=== PATIENT | female | born 1945 | race Caucasian/White ===

== ENCOUNTER 2020-03-22 15:30 | Inpatient (IN) | payer MEDICARE, BC, SELFPAY ==
[2020-03-22 16:31] VITALS: BP 108/66; PULSE 83; RESP 18; TEMP 36.7; O2SAT 96; BMI 36.3
[2020-03-22 18:16] LABS: Bedside Glucose 68 mg/dL (70-110)
[2020-03-22] MEDS: Calcium Carbonate 500 MG Tablet PO (18:20)
[2020-03-22 18:25] LABS: Bedside Glucose 96 mg/dL (70-110)
--- NOTE | 2020-03-22 18:39 | NURSING ---
Patient aware of how to use call kalyan pelaez assist for all needs, son called and aware of team day and his mothers phone number to room. Patient confirmed all allergies to medications with this nurse. Alert and oriented with periods of confusion needing reorientation.
[2020-03-22 19:34] VITALS: BP 140/60; PULSE 80; RESP 16; TEMP 37.2; O2SAT 96
[2020-03-22] MEDS: Acetaminophen 500 MG Tablet 1000 MG PO (20:45)
[2020-03-22] MEDS: Atorvastatin Calcium 80 MG Tablet PO (20:45)
[2020-03-22] MEDS: ALPRAZolam 0.25 MG Tablet PO (20:45)
[2020-03-22] MEDS: MELATONIN 10 MG TABLET PO (20:45)
[2020-03-22 21:06] LABS: Bedside Glucose 152 mg/dL (70-110)
[2020-03-22] MEDS: Insulin Lispro 100 UNIT/ML INSULN.PEN SC (21:10)
[2020-03-23] MEDS: oxyCODONE 5 MG Tablet PO (01:19)
[2020-03-23] MEDS: Acetaminophen 500 MG Tablet 1000 MG PO ×3 (04:45→20:22)
[2020-03-23] MEDS: Enoxaparin 40 MG/0.4 ML Syringe SC (04:45)
[2020-03-23 05:25] VITALS: RESP 16; O2SAT 96
[2020-03-23 06:42] LABS: Hematocrit 31.4 % (37-47); Mean Corp Hgb Conc 31.8 g/dL (32-36); Mean Corpuscular Hgb 30.5 pg (27.0-32.0); Mean Corpuscular Volume 95.7 fL (81-99); Mean Platelet Vol. 12.3 fl (6.2-12.0); Platelet Count 176 K/mm3 (150-450); RBC Distribution Width CV 13.3 % (11.6-14.6); RBC Distribution Width SD 46.6 fl (35.1-43.9); Red Blood Count 3.28 M/mm3 (4.2-5.4); White Blood Count 7.9 K/mm3 (4.4-11.0)
--- NOTE | 2020-03-23 07:07 | NURSING ---
PT AWAKE, ALERT AND COOPERATIVE. SKIN WARM AND DRY WITH BLOOD SUGAR OF 65. DENIES HEADACHE. ORANGE JUICE/SUGAR PACKET PROVIDED AND PT IS DRINKING WELL.
[2020-03-23 07:11] LABS: Bedside Glucose 65 mg/dL (70-110)
[2020-03-23 07:16] LABS: ALB/GLOB Ratio 0.7 RATIO (0.9-2.4); AST(SGOT) 19 U/L (15-37); Alanine Aminotransfer ALT/SGPT 13 U/L (13-56); Alkaline Phosphatase 60 U/L (45-117); Anion Gap 6 (5-15); BUN 15 mg/dL (7-18); BUN/Creat Ratio 16.4 RATIO (10-20); Calcium,Total 7.7 mg/dL (8.5-10.1); Chloride 116 mmol/L (98-107); Creatinine, Serum 0.92 mg/dL (0.55-1.02); EST Glomerular Filtration Rate 64 mL/min (>60); Est Glom Filt Rate - Afr Amer 77 mL/min (>60); Estimated Creatinine Clearance 51.74 ml/min; Glucose 65 mg/dL (74-106); Magnesium 1.9 mg/dL (1.6-2.6); Phosphorus 3.4 mg/dL (2.5-4.9); Potassium 3.4 mmol/L (3.5-5.1); Sodium Level 145 mmol/L (136-145)
[2020-03-23 07:40] LABS: Bedside Glucose 104 mg/dL (70-110)
[2020-03-23] MEDS: Calcium Carbonate 500 MG Tablet PO ×2 (07:59→17:02)
[2020-03-23] MEDS: Losartan Potassium 100 MG Tablet PO (08:00)
[2020-03-23] MEDS: dilTIAZem CD 180 MG Capsule PO (08:00)
[2020-03-23] MEDS: LINAGLIPTIN 5 MG TABLET PO (08:01)
[2020-03-23] MEDS: Polyethylene Glycol 3350 17 GM PACKET PO (08:01)
[2020-03-23 08:12] VITALS: BP 154/95; PULSE 82; RESP 12; TEMP 36.7; O2SAT 99
--- NOTE | 2020-03-23 09:33 | PCM.HP.STD ---
Problem List (1) Uncontrolled type 2 diabetes mellitus Status: Chronic (2) Morbid obesity Status: Chronic (3) Ischemic cerebrovascular accident (CVA) Status: Acute Comment: Right MCA distribution involving right caudate, insular and frontal areas (4) Trimalleolar fracture of left ankle Status: Acute Qualifiers: Encounter type: subsequent encounter Fracture type: closed (5) COVID-19 virus infection Status: Resolved (6) Diabetic neuropathy Status: Chronic Qualifiers: Diabetes mellitus type: type 2 Diabetes mellitus complication detail: diabetic polyneuropathy Qualified Code(s): E11.42 - Type 2 diabetes mellitus with diabetic polyneuropathy (7) Hypertension Status: Chronic Qualifiers: Hypertension type: essential hypertension Qualified Code(s): I10 - Essential (primary) hypertension (8) Dysphagia Status: Acute (9) Chronic renal failure, stage 3a Status: Chronic (10) Hypokalemia Status: Acute (11) Hyperchloremia Status: Acute (12) Normochromic normocytic anemia Status: Acute (13) Anxiety and depression Status: Chronic (14) Chronic prescription benzodiazepine use Status: Chronic (15) Hyperlipidemia Status: Chronic (16) Status post ORIF of fracture of ankle Status: Acute Comment: Closed trimalleolar left ankle fracture sustained in a fall (17) Irritable bowel syndrome Status: Chronic (18) Obstructive sleep apnea Status: Chronic (19) History of vitamin D deficiency Status: Chronic (20) History of osteoporosis Status: Chronic (21) History of colon polyps Status: Chronic (22) Family history of colon cancer Status: Chronic (23) Left ventricular hypertrophy Status: Chronic Comment: Mild (24) Rhabdomyolysis Status: Resolved Qualifiers: Rhabdomyolysis type: traumatic (25) DKA (diabetic ketoacidoses) Status: Resolved Qualifiers: Diabetes mellitus type: type 2 (26) Physical debility Status: Acute Comment: Due to recent right MCA ischemic CVA causing a fall and resulting in a left trimalleolar ankle fracture. (27) Ectopic beats Status: Acute Comment: Nonconducted (28) Incontinence Status: Acute (29) Hypoglycemia Status: Acute History of Present Illness Date of Admission: 03/22/20 Chief Complaint: Physical debility secondary to recent ischemic right MCA infarct leading to a fall resulting in a closed left trimalleolar fracture. She apparently laid on the floor for long period of time and had rhabdomyolysis at presentation to the previous hospital. She also had DKA and acute on chronic renal failure. Lisa Jain is a 74 year old F with a history of diabetes mellitus type 2, morbid obesity, diabetic neuropathy, hypertension, chronic renal failure stage IIIb, hyperlipidemia, anxiety/depression, irritable bowel syndrome, untreated obstructive sleep apnea, vitamin D deficiency, osteoporosis, colon polyps, chronic prescription benzodiazepine use, and left ventricular hypertrophy who was admitted to the in acute rehab unit at [facility] on 03/22/2020 with debility secondary to recent right MCA distribution ischemic CVA involving the right caudate, insular and frontal areas. The stroke led to a fall and she was unable to get to the phone. She apparently laid on the floor for quite some time before someone was sent to check on her. At the time of transfer to the previous hospital she had rhabdomyolysis and DKA. She also was positive for COVID-19 and had respiratory difficulties. She suffered a trimalleolar fracture of the left ankle from the fall and had open reduction and internal fixation. She will endure 3 hours of therapy daily to restore at or near her prior level of function. She is diagnosed with obstructive sleep apnea 10 years ago but is not able to tolerate the mask and so she is untreated. She lives in a trailer by herself. Her 2 years ago and she also lost her granddaughter to leukemia at the age of 29. She has been quite depressed however she is not taking an antidepressant. She is taking Xanax 0.5 mg 4 or 5 times a day. She is not currently receiving any counseling. Deficits at the time of presentation include moderate to severe dysphagia and left side hemiparesis. She is incontinent of urine. Past Medical History Past Medical History (Chronic Problems): Chronic Problems Uncontrolled type 2 diabetes mellitus (Chronic) Morbid obesity (Chronic) Diabetic neuropathy (Chronic) Hypertension (Chronic) Chronic renal failure, stage 3a (Chronic) Anxiety and depression (Chronic) Chronic prescription benzodiazepine use (Chronic) Hyperlipidemia (Chronic) Irritable bowel syndrome (Chronic) Obstructive sleep apnea (Chronic) History of vitamin D deficiency (Chronic) History of osteoporosis (Chronic) History of colon polyps (Chronic) Family history of colon cancer (Chronic) Left ventricular hypertrophy (Chronic) Mild Allergies SOFIA Inhibitors Adverse Reaction (Verified 03/22/20 16:39) NEEDS FOLLOW-UP buspirone [From BuSpar] Adverse Reaction (Verified 03/22/20 16:39) PT UNSURE OF REACTION escitalopram [From Lexapro] Adverse Reaction (Verified 03/22/20 16:39) PT UNSURE OF REACTION glimepiride Adverse Reaction (Verified 03/22/20 16:39) PT UNSURE OF REACTION glipizide Adverse Reaction (Verified 03/22/20 16:39) PT UNSURE OF REACTION meloxicam Adverse Reaction (Verified 03/22/20 16:39) PT UNSURE OF REACTION metformin Adverse Reaction (Verified 03/22/20 16:39) PT UNSURE OF REACTION NSAIDS (Non-Steroidal Anti-Inflamma Adverse Reaction (Verified 03/22/20 16:39) PT UNSURE OF REACTION pioglitazone [From Actos] Adverse Reaction (Verified 03/22/20 16:39) PT UNSURE OF REACTION prednisone Adverse Reaction (Verified 03/22/20 16:39) PT UNSURE OF REACTION quetiapine [From Seroquel] Adverse Reaction (Verified 03/22/20 16:39) PT UNSURE OF REACTION rosuvastatin [From Crestor] Adverse Reaction (Verified 03/22/20 16:39) PT UNSURE OF REACTION Home Medications: Ambulatory Orders Medication Instructions Recorded Acetaminophen [Tylenol Extra 1,000 mg PO TID 03/22/20 Strength] Alprazolam [Xanax] 0.25 mg PO BID PRN PRN 03/22/20 Atorvastatin Calcium [Lipitor] 80 mg PO QHS 03/22/20 Calcium Carbonate [Elemental 600 mg PO BID 03/22/20 Calcium] Diltiazem CD [Cardizem CD] 180 mg PO DAILY 03/22/20 Enoxaparin Sodium [Lovenox] 40 mg SQ DAILY@0600 03/22/20 Insulin Glargine,Hum.rec.anlog 6 unit SC DAILY 03/22/20 [Lantus] Losartan Potassium [Cozaar] 100 mg PO DAILY 03/22/20 Melatonin 10 mg PO DAILY@2200 03/22/20 Oxycodone [Oxyir] 5 mg PO Q8H PRN PRN 03/22/20 Polyethylene Glycol 3350 [Miralax] 17 gm PO DAILY 03/22/20 Sitagliptin Phosphate [Januvia] 100 mg PO DAILY 03/22/20 Surgical History: cholecystectomy, - - ORIF of left trimalleolar ankle fracture on 03/19/2020 at [facility]. Psychiatric History: Anxiety, Depression Lives: Alone - she is a , - - she lives in a trailer Smoking Status: Never smoker Tobacco Use: Non-smoker Alcohol: None Drugs: None - *Family History Paternal History Items: Cancer - Her father of colon cancer Maternal History Items: Cancer - Mother had lung cancer, - Sibling History Items: - - Brother with diverticulitis Review of Systems Constitutional: Reports: - - she overeats to comfort herself and has been gaining weight. Denies: Anorexia, Chills, Fever, Weight Change HEENT: Reports: Difficulty Swallowing, Visual Changes - she does not have her glasses. Denies: Difficulty Hearing, Head Aches, Hearing Changes, Nasal Congestion, Sinus Congestion, Sinus Drainage, Sore Throat Cardiovascular: Reports: Chest Pain - constant across the anterior chest wall. Denies: Claudication, Light Headedness, Orthopnea, Palpitations, Syncope Respiratory: Reports: Shortness of breath upon exertion. Denies: Cough, Pleuritic Pain, Shortness of breath at rest, Sputum production, Wheezing Gastrointestinal: Reports: Abdominal Pain - Intermittent and crampy. Denies: Nausea, Vomiting Genitourinary: Reports: Nocturia - 3-4 times at night. Denies: Dysuria Gynecological: Denies: Breast symptoms, Vaginal discharge, Vaginal itching Musculoskeletal: Reports: Joint Tenderness, Muscle pain. Denies: Joint Pain Skin: Reports: Dryness. Denies: Jaundice, Rash, Wounds Neurological: Reports: Balance problems, Change in Speech, Focal weakness - Left side, - - Had trouble getting up from a chair prior to the stroke.. Denies: Double vision, Confusion, Headaches, Numbness, Tingling, Tremor, Seizures Psychiatric: Reports: Anxiety, Depression. Denies: Homicidal Ideations, Suicidal Ideations Endocrine: Reports: Change in Body Habitus - gaining weight. Denies: Hx of Irradiation, Hx of Thyroiditis Hematologic/ Lymphatic: Denies: Easy Bruising, Easy Bleeding, Hx of blood clot VTE Information - Inpt Only VTE Present on Admission: No VTE Mechan Device Prophylaxis: Knee High HARPER Hose VTE Pharm Prophylaxis ordered?: Yes Patient Problems: Active and Suspected Problems Ischemic cerebrovascular accident (CVA) (Acute) Right MCA distribution involving right caudate, insular and frontal areas Trimalleolar fracture of left ankle (Acute) Dysphagia (Acute) Hypokalemia (Acute) Hyperchloremia (Acute) Normochromic normocytic anemia (Acute) Status post ORIF of fracture of ankle (Acute) Closed trimalleolar left ankle fracture sustained in a fall Physical debility (Acute) Due to recent right MCA ischemic CVA causing a fall and resulting in a left trimalleolar ankle fracture. Ectopic beats (Acute) Nonconducted Incontinence (Acute) Hypoglycemia (Acute) - Physical Exam Vitals/I&O's: Vital Signs Temp Pulse Resp BP Pulse Ox 98.0 F 82 12 154/95 H 99 03/23/20 08:12 03/23/20 08:12 03/23/20 08:12 03/23/20 08:12 03/23/20 08:12 Oxygen Delivery Method Room Air Weight: 225 lb Body Mass Index (BMI) 36.3 Intake and Output for Last 24 Hours 03/21/20 03/22/20 03/23/20 23:59 23:59 23:59 Intake Total 460 / 460 270 / 270 Balance 460 / 460 270 / 270 General: Alert, Oriented x3, Cooperative, No apparent distress, Well developed, Well nourished HEENT: Atraumatic, EOMI, Normocephalic, - - Pupils are equal round and reactive to light Oral: Dry Mucosa, - - The tongue is coated with white substance and she has a bad taste in her mouth. There are a few white patches on the buccal mucosa Neck: Supple, No JVD, Negative Carotid Bruits, No Nodes, Trachea Midline, - - Brisk carotid upstroke with good pulse volume Lungs: Clear to auscultation - anterior and lateral, No rhonchi, No wheeze, Diminished Cardiovascular: Regular rate, Normal S1, Normal S2, No murmurs, Irregular Rate - due to premature ectopic beats, No rub noted, No Gallop Abdomen: Soft, Non-Distended, Hypoactive Bowel Sounds, Obese, Tender - she complains of tenderness on the right side but, she does not guard even with deep palpation. Extremities: No clubbing, No cyanosis, No edema, Capillary Refill Less than 3 Seconds, No Calf Tenderness, Peripheral Pulses Normal, - - The toes on the left foot, which is in a cast, are warm with intact sensation Skin: No rashes, No breakdown Musculoskeletal: No Muscle Wasting Neurological: - - she has 4/5 strength in the R arm and Can not lift the left leg off the bed because she tells me the cast makes it to heavy.....she is moving it side to side. Marked L facial droop. no ataxia Psych/Mental Status: Appropriate, Flat Affect, - - she told the nurse she wants to be made hospice and however she wants to get better and go home and she made herself a full code......she admits to feeling as though she wants to at times but, she has never tried suicide and she has no plan to killl or harm herself or others Laboratory Results 03/22/20 17:55: POC Glucose 68 L 03/22/20 18:20: POC Glucose 96 03/22/20 20:59: POC Glucose 152 H 03/23/20 05:35: WBC 7.9, RBC 3.28 L, Hgb 10.0 L, Hct 31.4 L, MCV 95.7, MCH 30.5, MCHC 31.8 L, RDW Std Deviation 46.6 H, RDW Coeff of Junior 13.3, Plt Count 176, MPV 12.3 H 03/23/20 05:35: Sodium 145, Potassium 3.4 L, Chloride 116 H, Carbon Dioxide 23.0, Anion Gap 6, BUN 15, Creatinine 0.92, Estim Creat Clear Calc 51.74, Est GFR (MDRD) Af Amer 77, Est GFR (MDRD) Non-Af 64, BUN/Creatinine Ratio 16.4, Glucose 65 L, Calcium 7.7 L, Phosphorus 3.4, Magnesium 1.9, Total Bilirubin 0.60, AST 19, ALT 13, Alkaline Phosphatase 60, Total Protein 5.0 L, Albumin 2.0 L, Globulin 3.0, Albumin/Globulin Ratio 0.7 L 03/23/20 07:04: POC Glucose 65 L 03/23/20 07:35: POC Glucose 104 Current Medications Acetaminophen (Acetaminophen 500 Mg Tablet) 1,000 mg PO TID [facility] Last Admin: 03/23/20 04:45 Dose: 1,000 mg Documented by: Alprazolam (Alprazolam 0.25 Mg Tablet) 0.25 mg PO BID PRN PRN PRN Reason: ANXIETY Last Admin: 03/22/20 20:45 Dose: 0.25 mg Documented by: Atorvastatin Calcium (Atorvastatin Calcium 80 Mg Tablet) 80 mg PO QHS [facility] Last Admin: 03/22/20 20:45 Dose: 80 mg Documented by: Bisacodyl (Bisacodyl 10 Mg Suppository) 10 mg RECTAL .PRN X 1 PRN PRN Reason: Constipation Calcium Carbonate (Calcium Carbonate 500 Mg Tablet) 500 mg PO BIDCM [facility] Last Admin: 03/23/20 07:59 Dose: 500 mg Documented by: Diltiazem HCl (Diltiazem Cd 180 Mg Capsule) 180 mg PO DAILY [facility] Last Admin: 03/23/20 08:00 Dose: 180 mg Documented by: Enoxaparin Sodium (Enoxaparin 40 Mg/0.4 Ml Syringe) 40 mg SC DAILY@0600 [facility] Last Admin: 03/23/20 04:45 Dose: 40 mg Documented by: Insulin Glargine (Insulin Glargine 100 Units/Ml Pen) 6 units SC DAILY [facility] Last Admin: 03/23/20 08:04 Dose: 6 u Documented by: Insulin Human Lispro (Insulin Lispro 100 Unit/Ml Insuln.Pen) 0 unit SC [facility]; Protocol Last Admin: 03/23/20 07:07 Dose: Not Given Documented by: Linagliptin (Linagliptin 5 Mg Tablet) 5 mg PO DAILY [facility] Last Admin: 03/23/20 08:01 Dose: 5 mg Documented by: Losartan Potassium (Losartan Potassium 100 Mg Tablet) 100 mg PO DAILY [facility] Last Admin: 03/23/20 08:00 Dose: 100 mg Documented by: Magnesium Hydroxide (Magnesium Hydroxide 30 Ml Ud) 30 ml PO .PRN X 1 PRN PRN Reason: Constipation Melatonin (Melatonin 10 Mg Tablet) 10 mg PO DAILY@2200 [facility] Last Admin: 03/22/20 20:45 Dose: 10 mg Documented by: Oxycodone HCl (Oxycodone 5 Mg Tablet) 5 mg PO Q8H PRN PRN PRN Reason: Pain 1-10 Last Admin: 03/23/20 01:19 Dose: 5 mg Documented by: Polyethylene Glycol (Polyethylene Glycol 3350 17 Gm Packet) 17 gm PO DAILY [facility] Last Admin: 03/23/20 08:01 Dose: 17 gm Documented by: Assessment/Plan All Active Problems Ischemic cerebrovascular accident (CVA) (Acute) Trimalleolar fracture of left ankle (Acute) COVID-19 virus infection (Resolved) Dysphagia (Acute) Hypokalemia (Acute) Hyperchloremia (Acute) Normochromic normocytic anemia (Acute) Status post ORIF of fracture of ankle (Acute) Rhabdomyolysis (Resolved) DKA (diabetic ketoacidoses) (Resolved) Physical debility (Acute) Ectopic beats (Acute) Incontinence (Acute) Hypoglycemia (Acute) Impressions 1. Post stroke debility due to right MCA distribution CVA involving the right caudate, insular and frontal areas. Also due to trimalleolar fx of the Left ankle and ORIF to repair that fracture 2. Moderate to severe dysphagia 3. Left hemiparesis 4. Urine incontinence 5. Recent COVID-19 viral infection with respiratory difficulties. Follow-up Covid 19 antigen is negative. 6. Hypokalemia 7. Normochromic normocytic anemia 8. Uncontrolled diabetes mellitus type 2 with recent DKA likely to to infection and stress 10. Trimalleolar fracture of the left ankle 11. Diabetic peripheral polyneuropathy 12. Hypertension 13. Untreated obstructive sleep apnea 14. Chronic renal failure stage IIIa 15. Audible bowel syndrome 16. History of vitamin D deficiency 17. Anxiety/depression history 18. Chronic benzodiazepine use 19. History of colon polyps 20. Family history of colon cancer 21. Left ventricular hypertrophy 22. Hyperlipidemia 23. Recent rhabdomyolysis-resolved 24. multiple ectopic beats on physical exam 5. Thrush PLAN PT for gait stability OT for ADL's ST for evaluation Analgesics as needed Bowel protocol Fall precautions Assess for Anxiety/Depression GI prophylaxis not needed at this time. Patient denies nausea/vomiting/epigastric pain and she has no history of peptic ulcer disease. DVT prophylaxis with enoxaparin 40 mg daily Follow up with neurology, orthopedics and PCP following DC from [facility]. I also recommend she follow up for psychotherapy. Start tapering the Xanax off. Start Effexor XR for tx of anxiety and depression Start Pamelor at HS for insomnia and pain due to a bit of peripheral polyneuropathy. Continue Lantus and start Humalog sliding scale insulin 3 times daily AC. I doubt she will be able to return to the trailer and live independently at [place]. Will need to discuss this with her son Osmany Inpatient E&M: [id number] Init Hosp L3
--- NOTE | 2020-03-23 10:23 | PCM.RU.PYE ---
Admission Information Primary Diagnosis:: Physical debility secondary to recent right MCA distribution CVA resulting in a fall causing a trimalleolar fracture of the left ankle. Status Changes from Prescreening?: No changes Identified Actual Problem List:: Falls, Pain, ALteration in Cmfrt, Cognitve Impr/Memory Loss, Bladder Incontinence, Alteration in Sleep, Alteration in Nutrition, Mobility Impaired, Self Care Deficit, Diabetes, Hyperglycemia, BP, Hypertension, Alteration-Leisure Activ. Potential Problem List:: DVT, Bleeding, Infection, UTI, Aspiration, Falls, Skin Integrity, Depression Risk of Complications DVT: LMWH, HARPER Hose Bleeding: Monitor Lab Values, Nursing to Teach Precautions for anti-coagulation therapy., Wound, if applicable, to be assessed every shift., Stroke patients assessed for lethargy or change in status. Infection: Clinical Staff to Monitor for S/S of infection:, S/S of infection include fever, redness, warmth, etc. Urinary Tract Infection: Monitor for frequency, burning, discomfort, or incontinence., Nursing will obtain urine sample for urinalysis and C&S when ordered. Aspiration: Clinical staff will monitor for coughing, drooling, congestion., Speech will evaluate swallowing and dsyphasia., Nursing will monitor patient swallowing during meals. Falls: Patient will be evaluated for Fall Precautions, Patient will be placed on Fall Precautions as indicated per protocol. Skin Breakdown: Nursing will assess skin daily using assessment tool., Nursing will place on Skin Breakdown Precautions as indicated. Pain: Clinical staff will assess patient's pain level per protocol., Medications will be given, if needed, and the pain level reassessed., Other methods: Massage, distraction, decrease stimulus, etc. used PRN. Plan of Care Patient requires physician specializing in physical medicine and rehab oversight to provide close medical supervision of rehab issues including: Pain Management, Sleep Problems, Bowel and Bladder, Medical and co-morbidity Management, DVT prophylaxis, Rehabilitation Leadership, Coordination of treatment team Patient needs Physical Therapy: For a minimum of 1 hour, At least 5 out of 7 days Patient needs Physical Therapy to improve:: Mobility, Mobility, Mobility, Strengthening, Transfers, Stretching, ROM, Endurance, Stairs, Gait, Balance Patient needs Occupational Therapy: For a minimum of 1 hour, At least 5 out of 7 days Patient needs Occupational Therapy to improve ADL's incl.: Eating, Grooming, Bathing, Dressing, Toileting, Toilet transfers, Community Reintegration, Higher functioning activities, Household tasks, Adaptive Equipment, Splinting, Other activities as determined Patient requires speech therapy: For a minimum of 1 hour, At least 5 out of 7 days Patient requires speech therapy for: Swallowing, Cognition, Language Skills, Compensatory Strategies Patient requires 24/ Rehabilitation Nursing for: Pain Issues, Identifying and preventing risk factors, Monitoring and reporting current medical conditions, Assisting with ambulation, transfer, and all ADL's, Teaching patients about disease process and medications, Family teaching, Providing safe environment, Bowel and Bladder Issues, Skin integrity, Medication Management Patient needs Director Social/ Case Management for: Discharge Planning, Arranging Home Equipment or Services, Family Interventions Patient needs Dietary and Nutrition Services for: Adequate Nutrition, Nutritional Supplements, Nutritional Education Goals Patient will remain: free from falls, or injury at time of discharge. Patient will perform bed mobility at: MOD I level of assist. Patient will complete transfers from bed to chair at: MOD I level of assist. Patient will ambulate: - - 20 feet with wheeled walker at contact-guard assist Patient will propel wheelchair: - - Not applicable Patient will complete upper body dressing at: Standby Assist. Patient will complete lower body dressing at: - - With assistive device at minimal assistance Patient will complete toileting at: - - She will complete transfer on and off an elevated commode and toileting task at minimal assistance x1 Patient will perform bathing at: MOD I level of assist. Patient will complete grooming at: MOD I level of assist. Patient will achieve: - - Will not be able to climb stairs at this time Patient will have pain level of: of 3 or less Patient's skin will: remain intact, free from infection. Patient will receive: adequate nutrition. Discharge Planning Pt Prognosis for Sig. Practical Improv. w/in Reasonable Time: Fair Estimated Length of stay (days): 28 Anticipated D/C Destination: Senior Living Facility Was Preadmission Assessment Accurate?: Yes
--- NOTE | 2020-03-23 10:59 | EKG12_ITS ---
Test Reason : CP Blood Pressure : / mmHG Vent. Rate : 077 BPM Atrial Rate : 077 BPM P-R Int : 128 ms QRS Dur : 082 ms QT Int : 416 ms P-R-T Axes : 031 -26 102 degrees QTc Int : 470 ms Sinus rhythm with occasional Premature ventricular complexes Low voltage QRS Borderline ECG No previous ECGs available Confirmed by EDUARDO CHACKO, MIHIR ([id number]), commercial production editor EDDIE GARCES ([id number]) on 03/28/2020 10:04:43 AM Referred By: GABRIEL Confirmed By:MIHIR CLARK MD
[2020-03-23] MEDS: ALPRAZolam 0.25 MG Tablet PO ×2 (11:53→20:22)
[2020-03-23 12:01] LABS: Bedside Glucose 154 mg/dL (70-110)
[2020-03-23 12:41] LABS: Cholesterol 118 mg/dL (200); High Density Lipoprotein 48 mg/dL; Triglycerides 96 mg/dL; Very Low Density Lipoprotein 19 mg/dL (5-40)
[2020-03-23 12:51] LABS: CPK Total, Creatine Kinase 82 U/L (26-192); Thyroid Stim Hormone (TSH) 0.43 uIU/mL (0.358-3.74)
[2020-03-23] MEDS: NYSTATIN 500,000 UNIT/5 ML UDC 500000 UNIT PO ×3 (13:08→20:22)
--- NOTE | 2020-03-23 13:26 | CASEMGMT ---
Social Work Attempted to complete initial assessment with pt but [facility] through pt wanted to rest and ask SW to come back later. Will continue to follow. Millie Ohara ,SUPERVISOR [employer] INTERVENTIONAL PHYSIATRIST
[2020-03-23 14:46] LABS: Vitamin D,25 Hydroxy 35.6 ng/mL
[2020-03-23 15:59] LABS: Mucous, Urine 0 SEEN /hpf (<or=2+); Red Blood Cells-Urine 0 SEEN /hpf (0-5); Squamous Epithelial Cells - UA 0 SEEN /hpf (5-10); White Blood Cells 0 SEEN /hpf (0-5)
[2020-03-23 16:03] LABS: Color, Urine Yellow (Yellow); Glucose, Dipstick 50 mg/dl (Normal); Ketone-Dipstick Negative (Negative); Leukocyte Esterase-Dipstick Negative /ul (Negative); Nitrite-Dipstick Negative (Negative); Occult Blood-Urine Negative /ul (Negative); Protein-Dipstick Negative (Negative); Specific Gravity, Urine 1.015 (1.002-1.030); Urine Bilirubin Dipstick Negative (Negative); Urine Clarity Clear (Clear); Urine Urobilinogen Normal (Normal)
[2020-03-23 16:21] LABS: Bacteria RARE /hpf (None Seen)
[2020-03-23 16:26] LABS: Microalbumin,Random Urine 10.2 mg/L (NO RANGE EST.); Microalbumin:Creatinine Ratio 10.1 mg/g CRE (<30 mg/g CRE)
[2020-03-23 17:00] VITALS: BMI 36.3
[2020-03-23] MEDS: Insulin Lispro 100 UNIT/ML INSULN.PEN SC (17:02)
[2020-03-23 17:21] LABS: Bedside Glucose 171 mg/dL (70-110)
[2020-03-23] MEDS: Atorvastatin Calcium 80 MG Tablet PO (20:22)
[2020-03-23] MEDS: Nortriptyline 10 MG Capsule PO (20:22)
[2020-03-23 21:50] LABS: Bedside Glucose 108 mg/dL (70-110)
[2020-03-23 22:00] VITALS: BP 151/68; PULSE 91; RESP 16; TEMP 37.2; O2SAT 98
[2020-03-23 23:57] VITALS: PULSE 71; O2SAT 98
[2020-03-24 02:09] VITALS: BMI 36.3
[2020-03-24 03:55] VITALS: BP 123/67; PULSE 79; RESP 18; O2SAT 98
--- NOTE | 2020-03-24 03:55 | NURSING ---
pt uses call light at this time and tells staff that she feels like she is in a twilight zone. staff checks vital signs at this time. BP- 123/67, HR- 79, R- 18, and O2- 98% on RA. FOOD SANITARIAN obtains blood glucose at this time and blood glucose noted to be 76 at 0357. chocolate milk given to increase blood glucose. pt drinks some milk but is very adamant on not drinking the milk and tells staff to get off my case. this nurse tells patient that in order to properly increase blood glucose carbohydrates are needed and not processed sugars that are in the ice cream the pt requests. pt continues to refuse milk. ice cream given to increase blood glucose per pt request. this nurse asks pt to finish milk to be sure the blood sugar will increase and stay elevated vs increasing fast and then decreasing again. pt states to this nurse well how do you know that? this nurse explains to pt that this nurse knows the proper ways to increase a blood glucose level. blood glucose to be rechecked. pt call light within reach. pt eats all ice cream and drinks at least 120 of chocolate milk.
[2020-03-24 04:01] LABS: Bedside Glucose 76 mg/dL (70-110)
[2020-03-24 04:36] LABS: Bedside Glucose 117 mg/dL (70-110)
[2020-03-24] MEDS: Enoxaparin 40 MG/0.4 ML Syringe SC (06:33)
[2020-03-24] MEDS: Acetaminophen 500 MG Tablet 1000 MG PO ×3 (06:33→20:38)
[2020-03-24] MEDS: ALPRAZolam 0.25 MG Tablet PO ×3 (06:33→20:38)
[2020-03-24 06:50] LABS: Bedside Glucose 117 mg/dL (70-110)
[2020-03-24] MEDS: Calcium Carbonate 500 MG Tablet PO ×2 (07:48→16:55)
[2020-03-24] MEDS: Venlafaxine XR 37.5 MG Capsule PO (07:50)
[2020-03-24] MEDS: Losartan Potassium 100 MG Tablet PO (07:50)
[2020-03-24] MEDS: dilTIAZem CD 180 MG Capsule PO (07:50)
[2020-03-24] MEDS: NYSTATIN 500,000 UNIT/5 ML UDC 500000 UNIT PO ×4 (07:52→20:37)
[2020-03-24] MEDS: Polyethylene Glycol 3350 17 GM PACKET PO (07:52)
[2020-03-24 08:06] VITALS: O2SAT 96
[2020-03-24 08:18] LABS: Magnesium 2.1 mg/dL (1.6-2.6)
[2020-03-24 08:45] VITALS: BP 128/71; PULSE 84; RESP 16; TEMP 36.9; O2SAT 99
[2020-03-24 10:50] VITALS: BMI 36.3
[2020-03-24 11:15] LABS: Bedside Glucose 179 mg/dL (70-110)
[2020-03-24] MEDS: Insulin Lispro 100 UNIT/ML INSULN.PEN SC (12:03)
[2020-03-24 17:11] LABS: Bedside Glucose 116 mg/dL (70-110)
[2020-03-24] MEDS: Magnesium Hydroxide 30 ML UDC PO (17:40)
[2020-03-24 19:28] VITALS: BP 129/73; PULSE 73; RESP 18; TEMP 36.6; O2SAT 96
[2020-03-24 20:20] VITALS: BMI 36.3
[2020-03-24] MEDS: Atorvastatin Calcium 80 MG Tablet PO (20:37)
[2020-03-24] MEDS: Nortriptyline 10 MG Capsule PO (20:38)
[2020-03-24 21:01] LABS: Bedside Glucose 129 mg/dL (70-110)
[2020-03-24 22:00] VITALS: PULSE 77; RESP 17
[2020-03-25 06:31] LABS: Bedside Glucose 91 mg/dL (70-110)
[2020-03-25] MEDS: Enoxaparin 40 MG/0.4 ML Syringe SC (06:55)
[2020-03-25] MEDS: Acetaminophen 500 MG Tablet 1000 MG PO ×3 (06:56→21:52)
[2020-03-25] MEDS: ALPRAZolam 0.25 MG Tablet PO ×3 (06:56→21:52)
[2020-03-25 08:01] VITALS: BP 164/86; PULSE 85; RESP 18; TEMP 36.5; O2SAT 98
[2020-03-25 09:06] VITALS: O2SAT 98
[2020-03-25] MEDS: dilTIAZem CD 180 MG Capsule PO (09:20)
[2020-03-25] MEDS: Losartan Potassium 100 MG Tablet PO (09:20)
[2020-03-25] MEDS: Venlafaxine XR 37.5 MG Capsule PO (09:20)
[2020-03-25] MEDS: Calcium Carbonate 500 MG Tablet PO (09:20)
[2020-03-25] MEDS: NYSTATIN 500,000 UNIT/5 ML UDC 500000 UNIT PO ×3 (09:21→21:52)
[2020-03-25 12:00] LABS: Bedside Glucose 110 mg/dL (70-110)
[2020-03-25 14:10] VITALS: BMI 36.3
--- NOTE | 2020-03-25 17:22 | NURSING ---
Patient refused tums and nystatin oral x 3 attempts.
[2020-03-25 17:30] LABS: Bedside Glucose 111 mg/dL (70-110)
[2020-03-25 19:26] VITALS: BP 148/91; PULSE 83; RESP 18; TEMP 36.9; O2SAT 97
[2020-03-25 21:07] VITALS: BMI 36.3
[2020-03-25] MEDS: Atorvastatin Calcium 80 MG Tablet PO (21:52)
[2020-03-25] MEDS: Nortriptyline 10 MG Capsule PO (21:52)
[2020-03-25 22:00] VITALS: PULSE 84; RESP 17
[2020-03-25 23:10] LABS: Bedside Glucose 92 mg/dL (70-110)
[2020-03-26] MEDS: Acetaminophen 500 MG Tablet 1000 MG PO ×3 (06:32→21:36)
[2020-03-26] MEDS: ALPRAZolam 0.25 MG Tablet PO ×3 (06:32→21:36)
[2020-03-26] MEDS: Enoxaparin 40 MG/0.4 ML Syringe SC (06:33)
[2020-03-26 06:38] LABS: Anion Gap 5 (5-15); BUN 14 mg/dL (7-18); BUN/Creat Ratio 16.6 RATIO (10-20); Calcium,Total 8.4 mg/dL (8.5-10.1); Chloride 107 mmol/L (98-107); Creatinine, Serum 0.84 mg/dL (0.55-1.02); EST Glomerular Filtration Rate 71 mL/min (>60); Est Glom Filt Rate - Afr Amer 85 mL/min (>60); Estimated Creatinine Clearance 56.67 ml/min; Glucose 89 mg/dL (74-106); Potassium 4.1 mmol/L (3.5-5.1); Sodium Level 137 mmol/L (136-145)
[2020-03-26 06:55] LABS: Bedside Glucose 105 mg/dL (70-110)
[2020-03-26] MEDS: NYSTATIN 500,000 UNIT/5 ML UDC 500000 UNIT PO ×4 (08:07→21:36)
[2020-03-26] MEDS: Polyethylene Glycol 3350 17 GM PACKET PO (08:08)
[2020-03-26] MEDS: Calcium Carbonate 500 MG Tablet PO (08:09)
[2020-03-26] MEDS: Losartan Potassium 100 MG Tablet PO (08:09)
[2020-03-26] MEDS: Venlafaxine XR 37.5 MG Capsule PO (08:10)
[2020-03-26] MEDS: dilTIAZem CD 180 MG Capsule PO (08:10)
[2020-03-26 08:20] VITALS: BP 165/93; PULSE 96; RESP 18; TEMP 37.3; O2SAT 96
[2020-03-26 10:26] VITALS: BMI 36.3
--- NOTE | 2020-03-26 10:32 | CASEMGMT ---
Social Work IDT met with patient and son via conference call for Team meeting. Discussed patient's progress in therapy. Pt is modx2 for tx, requiring a lot of motivation, says can't a lot. Pt has little function in left leg, and is NWB, no walking or hopping. Pt received sponge bath EOB and is total for bathing, toileting and LE ADLs, min for UE dressing, set up for grooming. ST is working on swallowing strategies. Pt is [facility] soft, thin diet, supervision with meals, pocketing and requires cues to swallow. ST started cognitive assessment. Explained Medicare approved 23 days with [facility] 04/11. Discussed pt will be NWBS for a while and returning home alone is not realistic at this time. Explained pt to transition to SNF under Medicare. Also explained pt must participate in 3 hrs of therapy and continue to make progress for MC to cover in RU. Pt indicated understanding. Son and pt understand to DC to SNF. Emailed list of SNFs to son to choose several options and to notify SW with options. Will Reteam next week. Will continue to follow. Millie Ohara, [employer] INTERIOR WALL ASSEMBLER
[2020-03-26 12:20] LABS: Bedside Glucose 120 mg/dL (70-110)
[2020-03-26 17:31] LABS: Bedside Glucose 113 mg/dL (70-110)
[2020-03-26 19:20] VITALS: BP 160/90; PULSE 76; RESP 17; TEMP 36.7; O2SAT 96
[2020-03-26 21:25] LABS: Bedside Glucose 115 mg/dL (70-110)
[2020-03-26 21:33] VITALS: BMI 36.3
[2020-03-26] MEDS: Nortriptyline 10 MG Capsule PO (21:36)
[2020-03-26] MEDS: Atorvastatin Calcium 80 MG Tablet PO (21:36)
[2020-03-26 22:00] VITALS: PULSE 78; RESP 16
[2020-03-27] MEDS: ALPRAZolam 0.25 MG Tablet PO ×3 (06:15→21:24)
[2020-03-27] MEDS: Enoxaparin 40 MG/0.4 ML Syringe SC (06:15)
[2020-03-27] MEDS: Acetaminophen 500 MG Tablet 1000 MG PO ×3 (06:16→21:24)
[2020-03-27 06:36] LABS: Bedside Glucose 121 mg/dL (70-110)
[2020-03-27 08:32] VITALS: BP 160/76; PULSE 87; RESP 16; TEMP 37; O2SAT 98
[2020-03-27] MEDS: NYSTATIN 500,000 UNIT/5 ML UDC 500000 UNIT PO ×4 (08:37→21:28)
[2020-03-27] MEDS: Venlafaxine XR 37.5 MG Capsule PO (08:37)
[2020-03-27] MEDS: Polyethylene Glycol 3350 17 GM PACKET PO (08:37)
[2020-03-27] MEDS: dilTIAZem CD 240 MG Capsule PO (08:38)
[2020-03-27] MEDS: Losartan Potassium 100 MG Tablet PO (08:38)
[2020-03-27] MEDS: Calcium Carbonate 500 MG Tablet PO ×2 (08:38→17:36)
[2020-03-27] MEDS: oxyCODONE 5 MG Tablet PO (08:44)
[2020-03-27 10:07] VITALS: BMI 36.3
[2020-03-27 11:50] LABS: Bedside Glucose 126 mg/dL (70-110)
--- NOTE | 2020-03-27 12:49 | PN_ITS ---
Patient Problems: Active and Suspected Problems Ischemic cerebrovascular accident (CVA) (Acute) Right MCA distribution involving right caudate, insular and frontal areas Trimalleolar fracture of left ankle (Acute) Dysphagia (Acute) Normochromic normocytic anemia (Acute) Status post ORIF of fracture of ankle (Acute) Closed trimalleolar left ankle fracture sustained in a fall Physical debility (Acute) Due to recent right MCA ischemic CVA causing a fall and resulting in a left trimalleolar ankle fracture. Ectopic beats (Acute) Nonconducted Incontinence (Acute) Subjective: This is a late entry for 03/26/2020. Lisa was seen on team rounds today. Her son Osmany participated by phone. Afebrile VSS Maintaining appropriate oxygen saturation on RA Oral intake is decreased adequate She remains incontinent of urine. Last bowel movement was 03/26/2020. Discussed with nursing - no problems that need addressed Reviewed the PT/OT/ST notes Medication list reviewed. Blood sugar record was reviewed. The blood sugars are well controlled with no hypoglycemia. All lab was personally reviewed. BMP is within normal limits and the potassium is now 4.1, up from 3.4 with supplementation. Lisa is complaining that she is having a hard time swallowing and she feels that someone should be watching her while she eats. She denies chest pain, shortness of breath, cephalgia, nausea/vomiting/abdominal pain, calf tenderness and dysuria. She has been incontinent of urine - Physical Exam Vitals/I&O's: Vital Signs Temp Pulse Resp BP Pulse Ox 98.6 F 87 16 160/76 H 98 03/27/20 08:32 03/27/20 08:32 03/27/20 08:32 03/27/20 08:32 03/27/20 08:32 Oxygen Delivery Method Room Air Weight: 225 lb Body Mass Index (BMI) 36.3 Intake and Output for Last 24 Hours 03/25/20 03/26/20 03/27/20 23:59 23:59 23:59 Intake Total 1120 / 1120 1200 / 1200 120 / 120 Output Total 300 / 300 Balance 820 / 820 1200 / 1200 120 / 120 General: Alert, Oriented x3, Cooperative, No apparent distress, - - She keeps closing her eyes, courtney if I say something she does not want to hear. She is not making eye contact. HEENT: Atraumatic, Normocephalic, - - Pupils are equal round and reactive to light Oral: No Gingival or Mucosal Lesions/ Ulcerations, Dry Mucosa Lungs: Clear to auscultation, Diminished Cardiovascular: Regular rate, Regular Rhythm, Normal S1, Normal S2, - - the previous ventricular ectopy resolved with supplementation of the potassium Abdomen: Bowel Sounds Present, Soft, Non Tender, Non-Distended, Obese Extremities: No Calf Tenderness Skin: No rashes, No breakdown Musculoskeletal: Arthritic Changes Neurological: - - severe L facial droop. Mildly decreased strength in the left UE, decreased strength in the Left Leg Psych/Mental Status: Flat Affect, Depressed, - - does not appear agitated Microbiology Past 72 Hours 03/23/20 15:47 Urine Catheter - Catheter Urine Culture - Final Culture exhibits no growth. Laboratory Results 03/26/20 17:10: POC Glucose 113 H 03/26/20 21:18: POC Glucose 115 H 03/27/20 06:17: POC Glucose 121 H 03/27/20 11:46: POC Glucose 126 H Current Medications Acetaminophen (Acetaminophen 500 Mg Tablet) 1,000 mg PO TID [facility] Last Admin: 03/27/20 06:16 Dose: 1,000 mg Documented by: Alprazolam (Alprazolam 0.25 Mg Tablet) 0.25 mg PO TID [facility] Stop: 03/30/20 14:01 Last Admin: 03/27/20 06:15 Dose: 0.25 mg Documented by: Alprazolam (Alprazolam 0.25 Mg Tablet) 0.25 mg PO BID [facility] Stop: 04/06/20 22:01 Alprazolam (Alprazolam 0.25 Mg Tablet) 0.25 mg PO DAILY [facility] Atorvastatin Calcium (Atorvastatin Calcium 80 Mg Tablet) 80 mg PO QHS [facility] Last Admin: 03/26/20 21:36 Dose: 80 mg Documented by: Bisacodyl (Bisacodyl 10 Mg Suppository) 10 mg RECTAL .PRN X 1 PRN PRN Reason: Constipation Calcium Carbonate ([facility]cium Carbonate 500 Mg Tablet) [facility] Last Admin: 03/27/20 08:38 Dose: 500 mg Documented by: Diltiazem HCl (Diltiazem Cd 240 Mg Capsule) 240 mg PO DAILY [facility] Last Admin: 12/01/20 08:38 Dose: 240 mg Documented by: Enoxaparin Sodium (Enoxaparin 40 Mg/0.4 Ml Syringe) 40 mg SC DAILY@0600 [facility] Last Admin: 03/27/20 06:15 Dose: 40 mg Documented by: Insulin Glargine (Insulin Glargine 100 Units/Ml Pen) 6 units SC DAILY [facility] Last Admin: 03/27/20 08:38 Dose: 6 u Documented by: Insulin Human Lispro (Insulin Lispro 100 Unit/Ml Insuln.Pen) 0 unit SC TIDAC [facility]; Protocol Last Admin: 03/27/20 11:47 Dose: Not Given Documented by: Losartan Potassium (Losartan Potassium 100 Mg Tablet) 100 mg PO DAILY [facility] Last Admin: 03/27/20 08:38 Dose: 100 mg Documented by: Magnesium Hydroxide (Magnesium Hydroxide 30 Ml Udc) 30 ml PO .PRN X 1 PRN PRN Reason: Constipation Last Admin: 03/24/20 17:40 Dose: 30 ml Documented by: Nortriptyline HCl (Nortriptyline 10 Mg Capsule) 10 mg PO QHS [facility] Last Admin: 03/26/20 21:36 Dose: 10 mg Documented by: Nystatin (Nystatin 500,000 Unit/5 Ml Udc) 500,000 unit PO 4X/DAY [facility] Stop: 03/30/20 14:01 Last Admin: 03/27/20 08:37 Dose: 500,000 unit Documented by: Oxycodone HCl (Oxycodone 5 Mg Tablet) 5 mg PO Q8H PRN PRN PRN Reason: Pain 1-10 Last Admin: 03/27/20 08:44 Dose: 5 mg Documented by: Polyethylene Glycol (Polyethylene Glycol 3350 17 Gm Packet) 17 gm PO DAILY [facility] Last Admin: 03/27/20 08:37 Dose: 17 gm Documented by: Potassium Chloride (Potassium Chl Soln 20 Meq/15 Ml Udc) 20 meq PO DAILY [facility] Last Admin: 03/27/20 08:37 Dose: 20 meq Documented by: Venlafaxine HCl (Venlafaxine Xr 37.5 Mg Capsule) 37.5 mg PO DAILY [facility] Last Admin: 03/27/20 08:37 Dose: 37.5 mg Documented by: Medical Necessity - Tobacco Use Smoking Status: Never smoker Tobacco Use: Non-smoker Assessment/Plan All Active Problems Ischemic cerebrovascular accident (CVA) (Acute) Trimalleolar fracture of left ankle (Acute) COVID-19 virus infection (Resolved) Dysphagia (Acute) Hypokalemia (Resolved) Hyperchloremia (Resolved) Normochromic normocytic anemia (Acute) Status post ORIF of fracture of ankle (Acute) Rhabdomyolysis (Resolved) DKA (diabetic ketoacidoses) (Resolved) Physical debility (Acute) Ectopic beats (Acute) Incontinence (Acute) Hypoglycemia (Resolved) COVID-19 (Resolved) Impressions 1. Post stroke debility due to right MCA distribution CVA involving the right caudate, insular and frontal areas. Also due to trimalleolar fx of the Left ankle and ORIF to repair that fracture 2. Moderate to severe dysphagia 3. Left hemiparesis 4. Urine incontinence 5. Recent COVID-19 viral infection with respiratory difficulties. Follow-up Covid 19 antigen is negative. 6. Hypokalemia 7. Normochromic normocytic anemia 8. Uncontrolled diabetes mellitus type 2 with recent DKA likely to to infection and stress 10. Trimalleolar fracture of the left ankle 11. Diabetic peripheral polyneuropathy 12. Hypertension 13. Untreated obstructive sleep apnea 14. Chronic renal failure stage IIIa 15. Audible bowel syndrome 16. History of vitamin D deficiency 17. Anxiety/depression history 18. Chronic benzodiazepine use 19. History of colon polyps 20. Family history of colon cancer 21. Left ventricular hypertrophy 22. Hyperlipidemia 23. Recent rhabdomyolysis-resolved 24. multiple ectopic beats on physical exam 5. Thrush I doubt she will be able to return to the trailer and live independently at [place]. Will need to discuss this with her son Osmany. She is poorly motivated to do anything and I suspect she has been doing nothing but sitting in her trailer, taking Benzodiazepines 5-6 times a day and watching TV for quite some time. She is deconditioned but also not motivated to do anything D/W therapists and she has good potential compared to many others with worse post stroke deficits. Will do our best to motivate her. Inpatient E&M: 91995 Subs Hosp L2
[2020-03-27 17:21] LABS: Bedside Glucose 155 mg/dL (70-110)
[2020-03-27] MEDS: Insulin Lispro 100 UNIT/ML INSULN.PEN SC (17:37)
[2020-03-27 19:40] VITALS: BP 133/79; PULSE 83; RESP 20; TEMP 36.8; O2SAT 98
[2020-03-27 21:06] LABS: Bedside Glucose 99 mg/dL (70-110)
[2020-03-27 21:20] VITALS: PULSE 83; RESP 20; O2SAT 98; BMI 36.3
[2020-03-27] MEDS: Atorvastatin Calcium 80 MG Tablet PO (21:24)
[2020-03-27] MEDS: Nortriptyline 10 MG Capsule PO (21:24)
--- NOTE | 2020-03-28 02:31 | NURSING ---
Reviewed and agree with INSURANCE CLAIMS ADJUSTER documentation and charting.
[2020-03-28] MEDS: Enoxaparin 40 MG/0.4 ML Syringe SC (05:14)
[2020-03-28] MEDS: Acetaminophen 500 MG Tablet 1000 MG PO ×3 (05:14→20:22)
[2020-03-28] MEDS: ALPRAZolam 0.25 MG Tablet PO ×3 (05:15→20:27)
[2020-03-28 06:25] LABS: Bedside Glucose 152 mg/dL (70-110)
[2020-03-28] MEDS: dilTIAZem CD 240 MG Capsule PO (07:44)
[2020-03-28] MEDS: Losartan Potassium 100 MG Tablet PO (07:44)
[2020-03-28] MEDS: Calcium Carbonate 500 MG Tablet PO ×2 (07:44→16:57)
[2020-03-28] MEDS: Venlafaxine XR 37.5 MG Capsule PO (07:44)
[2020-03-28] MEDS: Insulin Lispro 100 UNIT/ML INSULN.PEN SC (07:44)
[2020-03-28] MEDS: NYSTATIN 500,000 UNIT/5 ML UDC 500000 UNIT PO ×4 (07:45→20:23)
[2020-03-28] MEDS: Polyethylene Glycol 3350 17 GM PACKET PO (07:45)
[2020-03-28 07:56] VITALS: BP 143/83; PULSE 85; RESP 16; TEMP 36.8; O2SAT 96
[2020-03-28 11:16] LABS: Bedside Glucose 143 mg/dL (70-110)
[2020-03-28] MEDS: Nystatin Powder 15gm Bottle 1 APPLIC TOPICAL ×2 (12:46→20:24)
[2020-03-28 14:22] VITALS: BMI 36.3
--- NOTE | 2020-03-28 14:58 | PN_ITS ---
Progress Note Afebrile VSS-blood pressures remain higher than goal. Maintaining appropriate oxygen saturation on RA Oral intake is adequate. She was refusing to drink fluids today because she states she can not. I observed her take 2 swallows of thin liquids and she had no coughing and it went down easily. She is also requesting a pureed diet because she can not swallow. I reviewed the ST notes from and today and she is able to tolerate MS and thin. She is perseverating on having some pocketing. Discussed with nursing - She wants nursing/staff to do everything for her and she is not motivated to do anything for herself Reviewed the PT/OT/ST notes - she continues to say she can not do things and is not motivated to try. PT says she needs min assist to stand up and pivot but she won't try. She requires minimal assistance with upper body dressing but maximal assistance with lower body dressing. She is able to groom herself with supe rvision/set up. She requires moderate assistance with bathing. Medication list reviewed. She was able to do a toilet transfer with minimal assist x2 to stand and swap out seats. Blood sugar record was reviewed and the blood sugars are well controlled with no hypoglycemia. She keeps telling me she can not swallow and she is very weak. No CP and no SOB. No nausea and no abd pain. No dysuria. alert, NAD Lungs - CTA, diminished, poor effort Heart-regular rate and rhythm with occasional ectopic, no gallop Abdomen-soft, nondistended, obese, already with palpation No rashes and no skin breakdown No calf tenderness ImPression's 1. Post stroke debility due to right MCA distribution CVA 2. Trimalleolar fracture of the left ankle-status post ORIF 3. Dysphagia 4. Left hemiparesis 5. Recent COVID-19 infection 6. Hypertension-not adequately controlled yet 7. Anxiety/depression with chronic benzodiazepine use and no antidepressant at admission 8. Diabetic peripheral polyneuropathy I spent 30 minutes with her again today discussing her lack of motivation and the fact that if she does not start to participate with therapy we will need to transfer her to a lesser level of care. Her stock answer to everything is I can't. She should be weaned off the Xanax over the next few weeks Continue the therapy She would benefit from psychotherapy going forward........I am wondering why she was on Seroquel in the past? she lists it as an allergy and does not know the reaction. She does not know the reaction to many of the drugs she lists as allergies. I suspect she may be chronically non-compliant and picks and chooses what she wants to take and lists the things she does not want to take as [id number]. Inpatient E&M: [id number] Subs Hosp L2
[2020-03-28 17:10] LABS: Bedside Glucose 134 mg/dL (70-110)
[2020-03-28 20:00] VITALS: BP 134/70; PULSE 84; RESP 18; TEMP 36.3; O2SAT 96; BMI 36.3
[2020-03-28] MEDS: Atorvastatin Calcium 80 MG Tablet PO (20:22)
[2020-03-28] MEDS: Nortriptyline 10 MG Capsule PO (20:23)
[2020-03-28] MEDS: oxyCODONE 5 MG Tablet PO (20:26)
[2020-03-28 22:31] LABS: Bedside Glucose 92 mg/dL (70-110)
[2020-03-28] MEDS: Menthol/Lanolin/Calamine/Znox 113 GM Tube 1 APPLIC TOPICAL (23:35)
--- NOTE | 2020-03-28 23:47 | SUR.HOLD ---
pt asked if she could try swallowing pills with just water vs putting in food. staff gave small pills first and was able to give tylenol and cholesterol pill cut in half. pt tolerated well with no pocketing or coughing and increased po fluid intake this hs to 190cc. pt given encouragement and pt stated well be sure you tell therapy they don't given me credit for anything. staff acknowledged pt request.
[2020-03-29] MEDS: Enoxaparin 40 MG/0.4 ML Syringe SC (04:41)
[2020-03-29] MEDS: Acetaminophen 500 MG Tablet 1000 MG PO ×3 (04:42→23:06)
[2020-03-29] MEDS: ALPRAZolam 0.25 MG Tablet PO ×3 (04:43→23:00)
[2020-03-29] MEDS: Nystatin Powder 15gm Bottle 1 APPLIC TOPICAL ×2 (04:43→23:07)
[2020-03-29 07:37] VITALS: BP 149/70; PULSE 77; RESP 18; TEMP 36.3; O2SAT 94
[2020-03-29] MEDS: Polyethylene Glycol 3350 17 GM PACKET PO (07:55)
[2020-03-29] MEDS: Losartan Potassium 100 MG Tablet PO (07:55)
[2020-03-29] MEDS: NYSTATIN 500,000 UNIT/5 ML UDC 500000 UNIT PO ×4 (07:55→23:06)
[2020-03-29] MEDS: Venlafaxine XR 37.5 MG Capsule PO (07:55)
[2020-03-29] MEDS: dilTIAZem CD 240 MG Capsule PO (07:55)
[2020-03-29] MEDS: Calcium Carbonate 500 MG Tablet PO ×2 (07:55→17:29)
[2020-03-29] MEDS: Menthol/Lanolin/Calamine/Znox 113 GM Tube 1 APPLIC TOPICAL ×2 (08:34→23:07)
[2020-03-29] MEDS: oxyCODONE 5 MG Tablet PO ×2 (08:40→19:14)
[2020-03-29 09:09] VITALS: PULSE 77; RESP 18; O2SAT 94
--- NOTE | 2020-03-29 10:13 | CASEMGMT ---
Social Work Followed up with son about choices for SNFs. Son stated he hadn't looked at the list of SNFs yet, but will look tonight and notify SW with options. SW encouraged to contact tomorrow to start referring to facilities. Son expressed understanding and appreciative for follow up. will continue to follow. Millie Ohara, HEEL BUFFER DIRECTOR DIVERSITY
[2020-03-29 11:56] LABS: Bedside Glucose 130 mg/dL (70-110)
--- NOTE | 2020-03-29 11:56 | PCM.PN.BLA ---
Progress Note Afebrile VSS-systolic blood pressure is still mildly elevated at times but nothing higher than 149 Maintaining appropriate oxygen saturation on RA Oral intake is marginal Remains incontinent of urine - she knows when she has to urinate but, she urinates in the bed and then calls nursing after the fact because she does not want to get up to the bedside commode. Discussed with nursing - She is non-cooperative and wants the nurses to do everything for her. she is constantly on the call light and she asks them to do things she could do herself.....like turn the light on. Reviewed the PT/OT/ST notes Medication list reviewed. The blood sugar record was reviewed. Blood sugars are well controlled with no hypoglycemia. She is complaining of left lower extremity pain today. She has been taking oxycodone 5 mg 0-1 times a day. She is tolerating Effexor XR with no adverse side effects. Participation in therapy is minimal still she is alert and oriented and in NAD Lungs are CTA but diminished with poor inspiratory effort Heart - RRR, no gallop abd - obese, soft, ND, no guarding with palpation she has intact sensation in the toes of the left foot. the toes are not cool to the touch. She is on DVT prophylaxis. Even though she is c/o pain she is not taking the pain medication often at all Impressions 1. post stroke debility 2. S/P ORIF of a left trimalleolar fx 3. depression 4. Benzodiazepine addiction 5. HTN 6. DM II - controlled Increase Effexor XR to 75 mg daily Continue therapy BMP and H&H in the a.m. She is requiring a lot of time spent getting her to try exercises. She is frequently heard saying I can't. I reminded her that she must do 3 hours of therapy a day in this unit and if she is not progressing she will need to go to an SNF. THe SW is going to talk to her son and send him a list of retirement facilities to look at. Continue to taper the Xanax off.......making adjustments weekly. STROKE Vital Signs/Narrative: Vital Signs Pulse Resp Pulse Ox 03/29/20 09:09 77 18 94 Inpatient E&M: 32042 Subs Hosp L2
[2020-03-29 17:41] LABS: Bedside Glucose 101 mg/dL (70-110)
[2020-03-29 19:42] VITALS: BP 149/78; PULSE 72; RESP 16; TEMP 36.5; O2SAT 97
[2020-03-29] MEDS: Nortriptyline 10 MG Capsule PO (23:06)
[2020-03-29] MEDS: Atorvastatin Calcium 80 MG Tablet PO (23:07)
[2020-03-29 23:31] LABS: Bedside Glucose 114 mg/dL (70-110)
[2020-03-30 05:00] VITALS: BMI 36.3
[2020-03-30] MEDS: ALPRAZolam 0.25 MG Tablet PO ×3 (06:20→22:12)
[2020-03-30] MEDS: Acetaminophen 500 MG Tablet 1000 MG PO ×3 (06:20→22:12)
[2020-03-30] MEDS: Nystatin Powder 15gm Bottle 1 APPLIC TOPICAL ×2 (06:20→22:14)
[2020-03-30] MEDS: Enoxaparin 40 MG/0.4 ML Syringe SC (06:20)
[2020-03-30 06:21] LABS: Hemoglobin 10.4 g/dL (12.0-15.0)
[2020-03-30 06:37] LABS: Anion Gap 5 (5-15); BUN 14 mg/dL (7-18); BUN/Creat Ratio 14.5 RATIO (10-20); Calcium,Total 8.4 mg/dL (8.5-10.1); Chloride 103 mmol/L (98-107); Creatinine, Serum 0.97 mg/dL (0.55-1.02); EST Glomerular Filtration Rate 60 mL/min (>60); Est Glom Filt Rate - Afr Amer 73 mL/min (>60); Estimated Creatinine Clearance 49.08 ml/min; Glucose 94 mg/dL (74-106); Potassium 4.1 mmol/L (3.5-5.1); Sodium Level 136 mmol/L (136-145)
[2020-03-30 06:56] LABS: Bedside Glucose 126 mg/dL (70-110)
[2020-03-30 07:50] VITALS: BP 146/71; PULSE 80; RESP 16; TEMP 36.7; O2SAT 96
[2020-03-30] MEDS: dilTIAZem CD 240 MG Capsule PO (07:56)
[2020-03-30] MEDS: Losartan Potassium 100 MG Tablet PO (07:56)
[2020-03-30] MEDS: Venlafaxine XR 75 MG Capsule PO (07:56)
[2020-03-30] MEDS: Calcium Carbonate 500 MG Tablet PO ×2 (07:57→17:33)
[2020-03-30] MEDS: Menthol/Lanolin/Calamine/Znox 113 GM Tube 1 APPLIC TOPICAL ×2 (08:01→22:14)
--- NOTE | 2020-03-30 08:43 | CASEMGMT ---
Social Work Son provided SW with SNFs to refer to: [facility], [facility], and [facility]. Referred to all SNFs. Pt would transfer skilled under Medicare at [facility] date 04/11. Will continue to follow. CATALINO Batres
[2020-03-30] MEDS: NYSTATIN 500,000 UNIT/5 ML UDC 500000 UNIT PO (10:11)
[2020-03-30 10:15] LABS: Bedside Glucose 149 mg/dL (70-110)
--- NOTE | 2020-03-30 11:01 | PCM.PN.BLA ---
Progress Note Afebrile VSS-blood pressure is coming under better control. The diastolics are all within goal and is 12-20 but the systolics are still mildly elevated ranging from 133-149 since 03/27/2020. Maintaining appropriate oxygen saturation on RA Oral intake is very poor if the intake and output on the graphic chart are accurate. She insist she can not swallow but, she does fine with thin liquids.......she demanded a pureed diet even though she does not need it.....she was recommended a MS, small sips and small bites by ST Discussed with nursing - no problems that need addressed, continues to need a lot of encouragement to do anything Reviewed the PT/OT/ST notes. She is requiring total assistance for bathing, moderate assistance for grooming, supervision for eating, total assistance with lower body dressing and moderate assistance for upper body dressing. She refused to get onto the BSC today and preferred to go in the Attends. She is not motivated to improve her functional abilities at this time. Medication list reviewed. Blood sugars are well controlled with no hypoglycemia. All labs personally reviewed today. The hemoglobin is 10.4, up from 10 on 03/23/2020. BMP shows a potassium of 4.1, sodium of 136, BUN of 14...............the BUN/CREAT ratio has actually gone down yet the PO intake is poor ? I do not think the I&O's are accurate and will discuss with nursing. Alert, no apparent distress, lying flat in bed Mucous membranes are moist, no mucosal lesions Lungs-diminished with poor inspiratory effort, no wheezes, no crackles, no rails Heart-regular rate and rhythm with rare ectopic beat Abdomen-obese, soft, no guarding with palpation, normal bowel sounds Toes on the left foot are warm to the touch and she can feel me touch her toes. She will not move the left lower extremity on command and tells me that she can't Impressions 1. post stroke debility........her biggest problem is not the stroke but, the fact that she will not do anything to help herself......prefers to layi in bed all day and even goes to the in the Attends because she does not want to get up to the bedside commode 2. S/P ORIF of Left trimalleolar ankle fracture 3. depression/lack of motivation since she is unwilling to participate in therapy will need to pursue a lower level of care at an SNF STROKE Vital Signs/Narrative: Vital Signs Temp Pulse Resp BP Pulse Ox 03/30/20 07:50 98.1 F 80 16 146/71 H 96 Inpatient E&M: [id number] Subs Hosp L2
[2020-03-30 13:16] LABS: Bedside Glucose 136 mg/dL (70-110)
[2020-03-30 16:05] VITALS: BMI 36.3
[2020-03-30 17:21] LABS: Bedside Glucose 124 mg/dL (70-110)
[2020-03-30 19:26] VITALS: BP 140/76; PULSE 74; RESP 16; TEMP 36.6; O2SAT 95
[2020-03-30] MEDS: Nortriptyline 10 MG Capsule PO (22:13)
[2020-03-30] MEDS: Atorvastatin Calcium 80 MG Tablet PO (22:13)
--- NOTE | 2020-03-30 22:29 | NURSING ---
PT FEELS SHE NEEDS TO URINATE. PLACED ON BEDPAN, UNABLE TO PASS URINE. ATTENDS IS DRY.
[2020-03-31] MEDS: Acetaminophen 500 MG Tablet 1000 MG PO ×3 (05:40→20:42)
[2020-03-31] MEDS: Enoxaparin 40 MG/0.4 ML Syringe SC (05:40)
[2020-03-31] MEDS: Nystatin Powder 15gm Bottle 1 APPLIC TOPICAL ×2 (05:41→20:41)
[2020-03-31 06:50] LABS: Bedside Glucose 131 mg/dL (70-110)
[2020-03-31] MEDS: Calcium Carbonate 500 MG Tablet PO ×2 (07:41→16:06)
[2020-03-31] MEDS: ALPRAZolam 0.25 MG Tablet PO ×2 (07:41→20:42)
[2020-03-31] MEDS: Venlafaxine XR 75 MG Capsule PO (07:42)
[2020-03-31] MEDS: Losartan Potassium 100 MG Tablet PO (07:42)
[2020-03-31] MEDS: dilTIAZem CD 240 MG Capsule PO (07:42)
[2020-03-31] MEDS: Menthol/Lanolin/Calamine/Znox 113 GM Tube 1 APPLIC TOPICAL ×2 (07:48→20:41)
[2020-03-31 08:51] VITALS: BP 149/76; PULSE 82; RESP 12; TEMP 36.6; O2SAT 97
[2020-03-31 13:28] VITALS: BMI 36.3
[2020-03-31] MEDS: oxyCODONE 5 MG Tablet PO (16:04)
[2020-03-31 16:16] LABS: Bedside Glucose 118 mg/dL (70-110)
--- NOTE | 2020-03-31 18:19 | NURSING ---
Pleasant and cooperative today. x2 assist stand pivot for transfers. Mod assist. NWB JEFFYE.
[2020-03-31] MEDS: Atorvastatin Calcium 80 MG Tablet PO (20:41)
[2020-03-31] MEDS: Nortriptyline 10 MG Capsule PO (20:41)
[2020-03-31 20:49] VITALS: BP 156/78; PULSE 70; RESP 18; TEMP 36.4; O2SAT 95
[2020-03-31 20:58] VITALS: BMI 36.3
[2020-04-01] MEDS: Enoxaparin 40 MG/0.4 ML Syringe SC (05:28)
[2020-04-01] MEDS: Acetaminophen 500 MG Tablet 1000 MG PO ×3 (05:28→20:38)
[2020-04-01] MEDS: Nystatin Powder 15gm Bottle 1 APPLIC TOPICAL ×2 (05:29→20:38)
[2020-04-01 06:40] LABS: Bedside Glucose 111 mg/dL (70-110)
[2020-04-01 08:21] VITALS: BP 133/67; PULSE 77; RESP 16; TEMP 36.6; O2SAT 95
[2020-04-01] MEDS: dilTIAZem CD 240 MG Capsule PO (09:19)
[2020-04-01] MEDS: Calcium Carbonate 500 MG Tablet PO ×2 (09:19→16:47)
[2020-04-01] MEDS: Venlafaxine XR 75 MG Capsule PO (09:19)
[2020-04-01] MEDS: Losartan Potassium 100 MG Tablet PO (09:20)
[2020-04-01] MEDS: ALPRAZolam 0.25 MG Tablet PO ×2 (09:23→20:38)
[2020-04-01] MEDS: Menthol/Lanolin/Calamine/Znox 113 GM Tube 1 APPLIC TOPICAL ×2 (09:23→20:38)
[2020-04-01] MEDS: oxyCODONE 5 MG Tablet PO (11:14)
[2020-04-01 12:56] VITALS: BMI 36.3
[2020-04-01 17:25] LABS: Bedside Glucose 142 mg/dL (70-110)
[2020-04-01 20:15] VITALS: BMI 36.3
[2020-04-01 20:16] VITALS: PULSE 78; RESP 16; O2SAT 96
[2020-04-01] MEDS: Atorvastatin Calcium 80 MG Tablet PO (20:37)
[2020-04-01] MEDS: Nortriptyline 10 MG Capsule PO (20:38)
[2020-04-01 21:50] VITALS: BP 148/72; PULSE 78; RESP 16; TEMP 36.9; O2SAT 96
[2020-04-02] MEDS: Enoxaparin 40 MG/0.4 ML Syringe SC (05:16)
[2020-04-02] MEDS: Acetaminophen 500 MG Tablet 1000 MG PO ×3 (05:31→22:18)
[2020-04-02] MEDS: Nystatin Powder 15gm Bottle 1 APPLIC TOPICAL ×2 (05:35→23:58)
[2020-04-02 06:41] LABS: Bedside Glucose 124 mg/dL (70-110)
--- NOTE | 2020-04-02 07:30 | NURSING ---
pt in the therapy room and reports that she is feeling sob and her heart is racing, nursing checked her ap and was 80 and her lungs sounds were unchanged from previous clinical findings. SPO2 was checked and was 99% on ra . information was passed on to previous shift
[2020-04-02 08:00] VITALS: BP 130/68; PULSE 83; RESP 16; TEMP 36.7; O2SAT 97
[2020-04-02] MEDS: dilTIAZem CD 240 MG Capsule PO (08:30)
[2020-04-02] MEDS: Venlafaxine XR 75 MG Capsule PO (08:31)
[2020-04-02] MEDS: Losartan Potassium 100 MG Tablet PO (08:31)
[2020-04-02] MEDS: ALPRAZolam 0.25 MG Tablet PO ×2 (08:37→22:18)
[2020-04-02] MEDS: Menthol/Lanolin/Calamine/Znox 113 GM Tube 1 APPLIC TOPICAL ×2 (08:38→23:59)
--- NOTE | 2020-04-02 10:27 | CASEMGMT ---
Social Work IDT met with patient and and via conference call for Team meeting. Discussed patient's progress in therapy. Pt is CGA-min for bed mobility, lots of encouragement, standing 5 mins in // bars while maintaining NWBS, mod for SPT with FWW for PT, but doesn't want to do the work. Pt has mild deficits left arm strength, SPT x2 with min-mod and SBA, toilet tx, total for LE ADLs and toilet tasks, min for UE dressing and grooming ST working on swallowing well but pocketing so got downgraded to puree, thin diet with exercises. ST working on strategies for speech clarity and to improve safety awareness. Dt working on managing depression. Explained Medicare approved 23 days with [facility] 04/11. However, since pt is not wanting to participate the 3 hrs/day and IDT recommending sooner to SNF when accepted. Pt and son agreeable. Left message with [facility] and [facility] to follow up on referral. [facility] has accepted pt. Will continue to follow. Millie Ohara, DIRECTOR CHILD ABUSE THERAPY RECONCILER
[2020-04-02 13:00] VITALS: BMI 36.3
--- NOTE | 2020-04-02 14:26 | CHAPLAIN ---
Type of Pastoral Visit _x__ Initial Visit ___ Follow-up Visit ___ On-call Visit ___ General Patient Visit ___ Spiritual Assessment ___ Family Conference ___ Bereavement ___ Rapid Response ___ Code Blue ___ Other (describe below) Pastoral Care Referral From _x__ Patient ___ Family ___ Nurse ___ Physician ___ Banquet Lead ___ Tool Smith ___ Other (describe below) Sacrament/Intervention _x__ Active listening ___ Anointing ___ Orthodoxy ___ Bereavement ___ Communion ___ Liana exploration ___ ___ Life review ___ Prayer ___ Reconciliation ___ Sacrament of Sick _x__ Supportive presence ___ Wedding ___ Other (describe below) Pastoral Comments upon delivering Sergey card to this patient she requested time for visit; pt states that I am not doing very well; discussion and overview of her stroke, broken ankle, and hospitalizations; pt says that she has little family and that her granddaughter in May; discussed her coping skills and pt says that the only thing I do is watch TV; pt states she is not latter-day and has no spiritual or social support/outlets; encouraged patient to continue work for recovery and to be open to new possibilities for comfort/peace
[2020-04-02] MEDS: Calcium Carbonate 500 MG Tablet PO (16:29)
[2020-04-02 16:55] LABS: Bedside Glucose 127 mg/dL (70-110)
[2020-04-02 19:05] VITALS: BP 145/65; PULSE 76; RESP 14; TEMP 37.2; O2SAT 99
--- NOTE | 2020-04-02 20:12 | PN_ITS ---
Patient Problems: Active and Suspected Problems Ischemic cerebrovascular accident (CVA) (Acute) Right MCA distribution involving right caudate, insular and frontal areas Trimalleolar fracture of left ankle (Acute) Dysphagia (Acute) Normochromic normocytic anemia (Acute) Status post ORIF of fracture of ankle (Acute) Closed trimalleolar left ankle fracture sustained in a fall Physical debility (Acute) Due to recent right MCA ischemic CVA causing a fall and resulting in a left trimalleolar ankle fracture. Ectopic beats (Acute) Nonconducted Incontinence (Acute) Subjective: Lisa was seen on team rounds today. Her son Osmany participated in rounds by phone. Afebrile VSS Maintaining appropriate oxygen saturation on RA Oral intake is fair to good Weight is down approximately 2 pounds since 03/30/2020 Discussed with nursing - no problems that need addressed Reviewed the PT/OT/ST notes. Everyone reports that she has not been doing therapy for 3 hours a day and she is not motivated to even try. This morning she had a BM in her attends and knew she was doing it. She did not want to use the call pelaez because she did not want to have to get on the bedside commode. She denies feeling suicidal but has felt that way in the past. She keeps repeating that her and then her granddaughter at the age of 29 from leukemia and her dtr-in-law committed suicide. She constantly tells me she has been on Xanax for depression and has seen a psychiatrist who prescribes Xanax for depression. She has not been getting psychotherapy. She was inactive at home and she is very deconditioned. Xanax is being weaned off and Effexor was increased to 75 mg last Thursday. Medication list reviewed. Blood sugars are well controlled with no hypoglycemia no blood sugars greater than 160. She is alert but is not making good eye contact. Wants to lay down all the time. Lungs - CTA HRRR abd - soft and NT the edema of the toes on the left foot is better No rashes and no skin breakdown Impressions 1. post stroke debility 2. S/P ORIF of Left ankle trimalleolar fracture 3. depression 4. DM II - well controlled 5. HTN plans are in the works for transfer to SNF since she is not able to or does not want to do 3 hours of therapy daily. - Physical Exam Vitals/I&O's: Vital Signs Temp Pulse Resp BP Pulse Ox 99 F 76 14 145/65 H 99 04/02/20 19:05 04/02/20 19:05 04/02/20 19:05 04/02/20 19:05 04/02/20 19:05 Oxygen Delivery Method Room Air Weight: 220 lb 7.396 oz Body Mass Index (BMI) 36.3 Intake and Output for Last 24 Hours 03/31/20 04/01/20 04/02/20 23:59 23:59 23:59 Intake Total 1430 / 1430 1560 / 1560 1555 / 1555 Output Total 700 / 700 500 / 500 450 / 450 Balance 730 / 730 1060 / 1060 1105 / 1105 Laboratory Results 04/02/20 06:36: POC Glucose 124 H 04/02/20 16:31: POC Glucose 127 H Current Medications Acetaminophen (Acetaminophen 500 Mg Tablet) 1,000 mg PO TID [facility] Last Admin: 04/02/20 13:56 Dose: 1,000 mg Documented by: Alprazolam (Alprazolam 0.25 Mg Tablet) 0.25 mg PO BID [facility] Stop: 04/06/20 22:01 Last Admin: 04/02/20 08:37 Dose: 0.25 mg Documented by: Alprazolam (Alprazolam 0.25 Mg Tablet) 0.25 mg PO DAILY [facility] Atorvastatin Calcium (Atorvastatin Calcium 80 Mg Tablet) 80 mg PO QHS [facility] Last Admin: 04/01/20 20:37 Dose: 80 mg Documented by: Bisacodyl (Bisacodyl 10 Mg Suppository) 10 mg RECTAL .PRN X 1 PRN PRN Reason: Constipation Calamine/Phenol (Menthol/Lanolin/Calamine/Znox 113 Gm Tube) 1 applic TOPICAL BID [facility]; Protocol Last Admin: 04/02/20 08:38 Dose: 1 applicatio Documented by: Calcium Carbonate (Calcium Carbonate 500 Mg Tablet) [facility] Last Admin: 04/02/20 16:29 Dose: 500 mg Documented by: Diltiazem HCl (Diltiazem Cd 240 Mg Capsule) 240 mg PO DAILY [facility] Last Admin: 04/02/20 08:30 Dose: 240 mg Documented by: Enoxaparin Sodium (Enoxaparin 40 Mg/0.4 Ml Syringe) 40 mg SC DAILY@0600 [facility] Last Admin: 04/02/20 05:16 Dose: 40 mg Documented by: Insulin Glargine (Insulin Glargine 100 Units/Ml Pen) 6 units SC DAILY [facility] Last Admin: 04/02/20 08:31 Dose: 6 u Documented by: Loperamide HCl (Loperamide 2 Mg Capsule) 2 mg PO Q4H PRN PRN PRN Reason: DIARRHEA Losartan Potassium (Losartan Potassium 100 Mg Tablet) 100 mg PO DAILY [facility] Last Admin: 04/02/20 08:31 Dose: 100 mg Documented by: Magnesium Hydroxide (Magnesium Hydroxide 30 Ml Udc) 30 ml PO .PRN X 1 PRN PRN Reason: Constipation Last Admin: 03/24/20 17:40 Dose: 30 ml Documented by: Nortriptyline HCl (Nortriptyline 10 Mg Capsule) 10 mg PO QHS [facility] Last Admin: 04/01/20 20:38 Dose: 10 mg Documented by: Nystatin (Nystatin Powder 15gm Bottle) 1 applic TOPICAL 0600,2200 [facility]; Protocol Last Admin: 04/02/20 05:35 Dose: 1 applicatio Documented by: Oxycodone HCl (Oxycodone 5 Mg Tablet) 5 mg PO Q8H PRN PRN PRN Reason: Pain 1-10 Last Admin: 04/01/20 11:14 Dose: 5 mg Documented by: Polyethylene Glycol (Polyethylene Glycol 3350 17 Gm Packet) 17 gm PO DAILY [facility] Last Admin: 04/02/20 08:31 Dose: Not Given Documented by: Potassium Chloride (Potassium Chloride 20 Meq Tablet) [facility]q [facility] Last Admin: 04/02/20 08:30 Dose: 20 meq Documented by: Venlafaxine HCl (Venlafaxine Xr 75 Mg Capsule) 75 mg PO DAILY [facility] Last Admin: 04/02/20 08:31 Dose: 75 mg Documented by: Medical Necessity - Tobacco Use Smoking Status: Never smoker Tobacco Use: Non-smoker Assessment/Plan All Active Problems Ischemic cerebrovascular accident (CVA) (Acute) Trimalleolar fracture of left ankle (Acute) COVID-19 virus infection (Resolved) Dysphagia (Acute) Hypokalemia (Resolved) Hyperchloremia (Resolved) Normochromic normocytic anemia (Acute) Status post ORIF of fracture of ankle (Acute) Rhabdomyolysis (Resolved) DKA (diabetic ketoacidoses) (Resolved) Physical debility (Acute) Ectopic beats (Acute) Incontinence (Acute) Hypoglycemia (Resolved) COVID-19 (Resolved) Inpatient E&M: 32558 Subs Hosp L1
--- NOTE | 2020-04-02 22:20 | NURSING ---
PT CHOOSES TO TAKE PILLS WITH WATER. AFTER SWALLOWING A COUPLE OF PILLS PT BEGINS TO VOMIT UP SMALL AMT OF WATER MULTIPLE TIMES, NO PILL FRAGMENTS NOTED. PT WITHOUT COUGHING DURING THE EPISODE. PT FEELS SLIGHTLY NAUSEATED. PT SITTING UPRIGHT IN BED. CALL LIGHT WITHIN REACH.
--- NOTE | 2020-04-02 23:18 | NURSING ---
NO FURTHER VOMITING AT THIS TIME. PT RESTING WITH EYES CLOSED. PT STATES SHE HAS SLIGHT NAUSEA.
--- NOTE | 2020-04-02 23:23 | NURSING ---
BLOOD SUGAR IS 141 PER BEDSIDE METER. PAGE PLACED TO DR MEDELLIN PER [facility] STUNT PERFORMER.
[2020-04-02 23:26] LABS: Bedside Glucose 141 mg/dL (70-110)
--- NOTE | 2020-04-02 23:54 | NURSING ---
DR MEDELLIN INFORMED OF PT'S MULTIPLE EPISODES OF YELLOW DIARRHEA TODAY AND THAT VOMITED SMALL AMT OF CLEAR DURING MED ADMINISTRATION AND THAT SHE REMAINED WITH SLIGHT NAUSEA. ORDER GIVEN FOR ZOFRAN.
[2020-04-03] MEDS: Ondansetron ODT 4 MG Tablet PO (00:24)
[2020-04-03] MEDS: Enoxaparin 40 MG/0.4 ML Syringe SC (05:45)
[2020-04-03] MEDS: Nystatin Powder 15gm Bottle 1 APPLIC TOPICAL ×2 (05:47→20:47)
[2020-04-03] MEDS: Acetaminophen 500 MG Tablet 1000 MG PO ×2 (05:48→14:49)
[2020-04-03 06:35] LABS: Bedside Glucose 138 mg/dL (70-110)
[2020-04-03] MEDS: Losartan Potassium 100 MG Tablet PO (07:32)
[2020-04-03] MEDS: Venlafaxine XR 75 MG Capsule PO (07:32)
[2020-04-03] MEDS: Calcium Carbonate 500 MG Tablet PO ×2 (07:32→16:44)
[2020-04-03] MEDS: dilTIAZem CD 240 MG Capsule PO (07:32)
[2020-04-03] MEDS: Menthol/Lanolin/Calamine/Znox 113 GM Tube 1 APPLIC TOPICAL ×2 (07:33→20:44)
[2020-04-03] MEDS: oxyCODONE 5 MG Tablet PO ×2 (07:40→20:47)
[2020-04-03 08:36] VITALS: BP 144/95; PULSE 95; RESP 16; TEMP 36.4; O2SAT 97
[2020-04-03 08:38] VITALS: PULSE 95; RESP 16; O2SAT 97
[2020-04-03] MEDS: ALPRAZolam 0.25 MG Tablet PO ×2 (09:30→20:43)
--- NOTE | 2020-04-03 10:44 | CASEMGMT ---
Social Work [facility] has no availability, [facility] has accepted as well. Spoke with pt's son about [facility] and [facility]. Son chose [facility]. Notified both SNFs. Spoke with [facility] and all agreeable for pt to DC 04/05. Son, pt and Lester agreeable. 7000 completed. 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 No other needs noted. Plan: DC to [facility] 04/05, skilled. CATALINO BatresW
[2020-04-03] MEDS: Atorvastatin Calcium 80 MG Tablet PO (20:43)
[2020-04-03] MEDS: Nortriptyline 10 MG Capsule PO (20:43)
[2020-04-03 21:45] VITALS: BP 125/63; PULSE 81; RESP 18; TEMP 36.6; O2SAT 95
[2020-04-03 21:47] VITALS: PULSE 81; RESP 18; O2SAT 95
--- NOTE | 2020-04-03 22:18 | NURSING ---
pt glucose taken at 1656 reading 120. Glucose monitor did not upload into the computer.
[2020-04-03 23:54] VITALS: BMI 36.3
[2020-04-04] MEDS: Acetaminophen 500 MG Tablet 1000 MG PO ×2 (05:02→20:48)
[2020-04-04] MEDS: Enoxaparin 40 MG/0.4 ML Syringe SC (05:02)
[2020-04-04] MEDS: Nystatin Powder 15gm Bottle 1 APPLIC TOPICAL ×2 (05:02→20:47)
[2020-04-04 06:41] LABS: Bedside Glucose 134 mg/dL (70-110)
[2020-04-04 07:11] LABS: Bedside Glucose 120 mg/dL (70-110)
[2020-04-04 07:30] VITALS: BP 152/76; PULSE 82; RESP 16; TEMP 36.7; O2SAT 96
[2020-04-04] MEDS: Calcium Carbonate 500 MG Tablet PO ×2 (08:16→16:51)
[2020-04-04] MEDS: Venlafaxine XR 75 MG Capsule PO (08:17)
[2020-04-04] MEDS: dilTIAZem CD 240 MG Capsule PO (08:17)
[2020-04-04] MEDS: Losartan Potassium 100 MG Tablet PO (08:17)
[2020-04-04] MEDS: Menthol/Lanolin/Calamine/Znox 113 GM Tube 1 APPLIC TOPICAL ×2 (08:20→20:47)
[2020-04-04] MEDS: oxyCODONE 5 MG Tablet PO ×2 (08:30→16:52)
[2020-04-04] MEDS: ALPRAZolam 0.25 MG Tablet PO ×2 (09:31→20:50)
[2020-04-04 17:00] VITALS: BMI 36.3
[2020-04-04 17:26] LABS: Bedside Glucose 122 mg/dL (70-110)
[2020-04-04 20:10] VITALS: BP 117/65; PULSE 76; PULSE 79; RESP 16; TEMP 37.2; O2SAT 96; BMI 36.3
[2020-04-04] MEDS: Atorvastatin Calcium 80 MG Tablet PO (20:47)
[2020-04-04] MEDS: Nortriptyline 10 MG Capsule PO (20:50)
[2020-04-05] MEDS: Enoxaparin 40 MG/0.4 ML Syringe SC (04:52)
[2020-04-05] MEDS: Acetaminophen 500 MG Tablet 1000 MG PO (04:54)
[2020-04-05] MEDS: Nystatin Powder 15gm Bottle 1 APPLIC TOPICAL (04:54)
[2020-04-05 07:00] LABS: Bedside Glucose 124 mg/dL (70-110)
[2020-04-05] MEDS: Calcium Carbonate 500 MG Tablet PO (08:17)
[2020-04-05] MEDS: Menthol/Lanolin/Calamine/Znox 113 GM Tube 1 APPLIC TOPICAL (08:18)
[2020-04-05] MEDS: dilTIAZem CD 240 MG Capsule PO (08:18)
[2020-04-05] MEDS: Losartan Potassium 100 MG Tablet PO (08:19)
[2020-04-05] MEDS: Venlafaxine XR 75 MG Capsule PO (08:19)
[2020-04-05] MEDS: ALPRAZolam 0.25 MG Tablet PO (08:24)
[2020-04-05 10:00] VITALS: BP 107/54; PULSE 79; RESP 16; TEMP 36.4; O2SAT 96
--- NOTE | 2020-04-05 11:00 | TREXTCAR_ITS ---
- Diet 03/22/20 16:57 Diet: Cardiac: Calorie-Controlled Food consistency:: Mechanical (Minced/Moist) Liquid Consistency:: Regular/Thin Diet Comments: Supervised meals/assist as needed - Oral care following each meal. How many daily calories?: 1600 calorie Pt will tell you that she can not eat or swallow but, she has no coughing, drooling or tearing of her eyes with eating or drinking. She has a little pocketing and she is obsessed with this. - Routine Orders/Code Status Enema Type: Fleetz Enema Frequency: Daily PRN Routine Lab Work: - - BMP and H&H in 1 week. Code Status: Full Code - Wound(s) L ANKLE Wound Type: Surgical Incision - Suggestions for Active Care Change Position every (hours): 2 Hours to sit in a chair: 3 - get in a chair with all meals please - Therapies Weight Bearing: Non weight bearing Extremity Affected:: Left Lower Physical Therapy: Eval and Treat Occupational Therapy: Eval and Treat Speech Therapy: Eval and Treat - Problem/Diagnosis (1) Uncontrolled type 2 diabetes mellitus Status: Chronic (2) Morbid obesity Status: Chronic (3) Ischemic cerebrovascular accident (CVA) Status: Acute Comment: Right MCA distribution involving right caudate, insular and frontal areas (4) Trimalleolar fracture of left ankle Status: Acute (5) COVID-19 virus infection Status: Resolved Comment: She had COVID prior to being transferred to [facility] acute rehab and was negative prior to transfer. (6) Diabetic neuropathy Status: Chronic (7) Hypertension Status: Chronic (8) Dysphagia Status: Acute (9) Chronic renal failure, stage 3a Status: Chronic Comment: GFR has been greater than 60 since she was hydrated while in rehab (10) Hypokalemia Status: Resolved (11) Hyperchloremia Status: Resolved (12) Normochromic normocytic anemia Status: Acute (13) Anxiety and depression Status: Chronic (14) Chronic prescription benzodiazepine use Status: Chronic (15) Hyperlipidemia Status: Chronic (16) Status post ORIF of fracture of ankle Status: Acute Comment: Closed trimalleolar left ankle fracture sustained in a fall (17) Irritable bowel syndrome Status: Chronic (18) Obstructive sleep apnea Status: Chronic Comment: not treatment - pt states she could not tolerate the mask (19) History of vitamin D deficiency Status: Chronic (20) History of osteoporosis Status: Chronic (21) History of colon polyps Status: Chronic (22) Family history of colon cancer Status: Chronic (23) Left ventricular hypertrophy Status: Chronic Comment: Mild (24) Rhabdomyolysis Status: Resolved (25) DKA (diabetic ketoacidoses) Status: Resolved (26) Physical debility Status: Acute Comment: Due to recent right MCA ischemic CVA causing a fall and resulting in a left trimalleolar ankle fracture. (27) Ectopic beats Status: Acute Comment: Nonconducted (28) Incontinence Status: Acute (29) Hypoglycemia Status: Resolved (30) COVID-19 Status: Resolved Comment: in February 2020 - Allergies/Procedures Done in Hospital Allergies/Adverse Reactions: Allergies SOFIA Inhibitors Adverse Reaction (Verified 03/22/20 16:39) NEEDS FOLLOW-UP buspirone [From BuSpar] Adverse Reaction (Verified 03/22/20 16:39) PT UNSURE OF REACTION escitalopram [From Lexapro] Adverse Reaction (Verified 03/22/20 16:39) PT UNSURE OF REACTION glimepiride Adverse Reaction (Verified 03/22/20 16:39) PT UNSURE OF REACTION glipizide Adverse Reaction (Verified 03/22/20 16:39) PT UNSURE OF REACTION meloxicam Adverse Reaction (Verified 03/22/20 16:39) PT UNSURE OF REACTION metformin Adverse Reaction (Verified 03/22/20 16:39) PT UNSURE OF REACTION NSAIDS (Non-Steroidal Anti-Inflamma Adverse Reaction (Verified 03/22/20 16:39) PT UNSURE OF REACTION pioglitazone [From Actos] Adverse Reaction (Verified 03/22/20 16:39) PT UNSURE OF REACTION prednisone Adverse Reaction (Verified 03/22/20 16:39) PT UNSURE OF REACTION quetiapine [From Seroquel] Adverse Reaction (Verified 03/22/20 16:39) PT UNSURE OF REACTION rosuvastatin [From Crestor] Adverse Reaction (Verified 03/22/20 16:39) PT UNSURE OF REACTION - Type of Care/Length of Stay Estimated LOS: More Than 30 Days Type of Care Needed: Skilled Rehab Potential: Fair Prognosis: Fair - Additional Orders/Day of Discharge Additional Orders: Lisa will tell you that she can not eat or drink but she does not have a problem with this. She wants someone to sit with her and watch her eat. She is frequently on the call light but, she will not call you when she has to urinate or defecate because she does not want to get on the bedside commode. She will complain that she can not sit in the chair because of 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 pain but, we have been having her sit in the recliner for at least and hour with meals. She wants to lay in bed and watch TV. She has very little motivation to do anything for herself. She will be a challenge. She was started on an Antidepressant at admission to our unit and the Xanax that she was taking 5 times a day has been weaned down with the intention of discontinuing completely in 1 week. She needs psychotherapy if you have a therapist available at your facility. H&P will serve as current which was dated: 03/23/20 Day of Discharge: 04/05/20 - Dietary and Speech Recommendations Dietitian Recommendations/Changes: Rec continue diet as ordered - consistency per [facility] [place] - Follow Up Care Primary Care Physician: Jaqueline Brito DO [Primary Care Provider] - Please follow up with your Primary Care Physician in: following DC from SNF Please Follow Up With: Dr. Herrera - surgeon who repaired the ankle
--- NOTE | 2020-04-05 11:25 | DS.PCM_ITS ---
Discharge Date and Diagnosis - Problem List Patient Problems: Active and Suspected Problems Ischemic cerebrovascular accident (CVA) (Acute) Right MCA distribution involving right caudate, insular and frontal areas Trimalleolar fracture of left ankle (Acute) Dysphagia (Acute) Normochromic normocytic anemia (Acute) Status post ORIF of fracture of ankle (Acute) Closed trimalleolar left ankle fracture sustained in a fall Physical debility (Acute) Due to recent right MCA ischemic CVA causing a fall and resulting in a left trimalleolar ankle fracture. Ectopic beats (Acute) Nonconducted Incontinence (Acute) Date of Admission: 03/22/20 Date of Discharge: 04/05/20 - Primary Discharge Diagnosis Acute Problems: Active Problems Ischemic cerebrovascular accident (CVA) (Acute) Right MCA distribution involving right caudate, insular and frontal areas Trimalleolar fracture of left ankle (Acute) Dysphagia (Acute) Normochromic normocytic anemia (Acute) -more likely than not due to acute blood loss Status post ORIF of fracture of ankle (Acute) Closed trimalleolar left ankle fracture sustained in a fall Physical debility (Acute) Due to recent right MCA ischemic CVA causing a fall and resulting in a left trimalleolar ankle fracture. Ectopic beats (Acute) Non-conducted - due to hypokalemia - has not recurred since the K was replaced Incontinence (Acute) - this is by choice at [facility]. Has been going in her Atttends because she does not want the nurses to get her up to the [facility]. Hypoglycemia-resolved Hypokalemia-resolved - Secondary Discharge Diagnosis Chronic Problems: Chronic Problems Uncontrolled type 2 diabetes mellitus (Chronic) Morbid obesity (Chronic) Diabetic neuropathy (Chronic) Hypertension (Chronic) Chronic renal failure, stage 3a (Chronic) GFR has been greater than 60 since she was hydrated while in rehab Anxiety and depression (Chronic) Chronic prescription benzodiazepine use (Chronic) - being weaned off gradually Hyperlipidemia (Chronic) Irritable bowel syndrome (Chronic) Obstructive sleep apnea (Chronic) no treatment - pt states she could not tolerate the mask History of vitamin D deficiency (Chronic) History of osteoporosis (Chronic) History of colon polyps (Chronic) Family history of colon cancer (Chronic) Left ventricular hypertrophy (Chronic)-mild Reported 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 pain Hospital Course and Treatment Imaging Results: Laboratory Last Values WBC 7.9 K/mm3 (4.4-11.0) 03/23/20 05:35 RBC 3.28 M/mm3 (4.2-5.4) L 03/23/20 05:35 Hgb 10.4 g/dL (12.0-15.0) L 03/30/20 05:27 Hct 33.0 % (37-47) L 03/30/20 05:27 MCV 95.7 fL (81-99) 03/23/20 05:35 MCH 30.5 pg (27.0-32.0) 03/23/20 05:35 MCHC 31.8 g/dL (32-36) L 03/23/20 05:35 RDW Std Deviation 46.6 fl (35.1-43.9) H 03/23/20 05:35 RDW Coeff of Junior 13.3 % (11.6-14.6) 03/23/20 05:35 Plt Count 176 K/mm3 (150-450) 03/23/20 05:35 MPV 12.3 fl (6.2-12.0) H 03/23/20 05:35 Sodium 136 mmol/L (136-145) 03/30/20 05:27 Potassium 4.1 mmol/L (3.5-5.1) 03/30/20 05:27 Chloride 103 mmol/L (98-107) 03/30/20 05:27 Carbon Dioxide 28.0 mmol/L (21.0-32.0) 03/30/20 05:27 Anion Gap 5 (5-15) 03/30/20 05:27 BUN 14 mg/dL (7-18) 03/30/20 05:27 Creatinine 0.97 mg/dL (0.55-1.02) 03/30/20 05:27 Estim Creat Clear Calc 49.08 ml/min 03/30/20 05:27 Est GFR (MDRD) Af Amer 73 mL/min (>60) 03/30/20 05:27 Est GFR (MDRD) Non-Af 60 mL/min (>60) 03/30/20 05:27 BUN/Creatinine Ratio 14.5 RATIO (10-20) 03/30/20 05:27 Glucose 94 mg/dL (74-106) 03/30/20 05:27 Calcium 8.4 mg/dL (8.5-10.1) L 03/30/20 05:27 Phosphorus 3.4 mg/dL (2.5-4.9) 03/23/20 05:35 Magnesium 2.1 mg/dL (1.6-2.6) 03/24/20 07:46 Total Bilirubin 0.60 mg/dL (0.20-1.00) 03/23/20 05:35 AST 19 U/L (15-37) 03/23/20 05:35 ALT 13 U/L (13-56) 03/23/20 05:35 Alkaline Phosphatase 60 U/L (45-117) 03/23/20 05:35 Total Creatine Kinase 82 U/L (26-192) 03/23/20 12:17 Total Protein 5.0 g/dL (6.4-8.2) L 03/23/20 05:35 Albumin 2.0 g/dL (3.2-5.0) L 03/23/20 05:35 Globulin 3.0 g/dL (2.2-4.2) 03/23/20 05:35 Albumin/Globulin Ratio 0.7 RATIO (0.9-2.4) L 03/23/20 05:35 Triglycerides 96 mg/dL (-199) 03/23/20 12:17 Cholesterol 118 mg/dL (200) 03/23/20 12:17 LDL Cholesterol 51 mg/dL (0-130) 03/23/20 12:17 VLDL Cholesterol 19 mg/dL (5-40) 03/23/20 12:17 HDL Cholesterol 48 mg/dL (40-) 03/23/20 12:17 Vitamin D 25-Hydroxy 35.6 ng/mL 03/23/20 12:17 TSH 0.43 uIU/mL (0.358-3.74) 03/23/20 12:17 Urine Color Yellow (Yellow) 03/23/20 15:47 Urine Clarity Clear (Clear) 03/23/20 15:47 Urine pH 5.0 (5.0 - 8.0) 03/23/20 15:47 Ur Specific [place] 1.015 (1.002-1.030) 03/23/20 15:47 Urine Protein Negative mg/dl (Negative) 03/23/20 15:47 Urine Glucose (UA) 50 mg/dl (Normal) H 03/23/20 15:47 Urine Ketones Negative mg/dl (Negative) 03/23/20 15:47 Urine Occult Blood Negative /ul (Negative) 03/23/20 15:47 Urine Nitrite Negative (Negative) 03/23/20 15:47 Urine Bilirubin Negative mg/dL (Negative) 03/23/20 15:47 Urine Urobilinogen Normal mg/dl (Normal) 03/23/20 15:47 Ur Leukocyte Esterase Negative /ul (Negative) 03/23/20 15:47 Urine RBC 0 SEEN /hpf (0-5) 03/23/20 15:47 Urine WBC 0 SEEN /hpf (0-5) 03/23/20 15:47 Ur Squamous Epith Cells 0 SEEN /hpf (5-10) 03/23/20 15:47 Urine Bacteria RARE /hpf (None Seen) 03/23/20 15:47 Urine Mucus 0 SEEN /hpf (<or=2+) 03/23/20 15:47 Ur Random Microalbumin 10.2 mg/L (NO RANGE EST.) 03/23/20 15:47 Urine Creatinine 101.00 mg/dL (NO RANGE EST.) 03/23/20 15:47 Microalb/Creat Ratio 10.1 mg/g CRE (<30 mg/g CRE) 03/23/20 15:47 POC Glucose 124 mg/dL (70-110) H 04/05/20 06:56 Microbiology 04/04/20 Unknown Mucosa - Nasopharyngeal SARS-CoV-2 Antigen (Rapid) - Final 03/23/20 15:47 Urine Catheter - Catheter Urine Culture - Final Culture exhibits no growth. none Operations: None Procedures: None Summary of Care Provided: Lisa Jain is a 74 year old F with a history of diabetes mellitus type 2, morbid obesity, diabetic neuropathy, hypertension, chronic renal failure stage IIIa, hyperlipidemia, anxiety/depression, irritable bowel syndrome, untreated obstructive sleep apnea (reports she did not like wearing the mask), vitamin D deficiency, osteoporosis, colon polyps, chronic prescription benzodiazepine use, and mild left ventricular hypertrophy who was admitted to the inpt acute rehab unit at [facility] on 03/22/2020 with debility secondary to recent right MCA distribution ischemic CVA involving the right caudate, insular and frontal areas. The stroke led to a fall and she was unable to get to the phone. She apparently laid on the floor for quite some time before someone was sent to check on her. At the time of transfer to the previous hospital she had rhabdomyolysis and DKA. She also was positive for COVID-19 and had respiratory difficulties. She suffered a trimalleolar fracture of the left ankle from the fall and had open reduction and internal fixation. Lisa was living in a trailer by herself prior to the CVA. Her 2 years prior to the stroke and her 29 YO granddaughter from leukemia. She has been very depressed and has been sedentary in front of her TV. She is deconditioned and not motivated to participate in therapy. She had been seen by a psychiatrist at one point and tells me that she was taking Xanax 0.5 mg 5 times a day to treat her depression. She was not getting any psychotherapy. Lab at presentation to the rehab unit showed a low potassium of 3.4. Fasting blood sugar was 65 and hypoglycemic agents were adjusted. Cholesterol panel showed a total cholesterol of 118 with an LDL of 51 and an HDL of 48. Vitamin D was within normal limits at 35.6 and the TSH was normal at 0.43. White blood cell count and platelets were within normal limits however the initial hemoglobin was 10 on 03/23/2020. Hemoglobin was rechecked on 03 30 and was up to 10.4. Her blood sugars have been under excellent control on 6 units of Lantus daily and a 1600-calorie diet. She had no further hypoglycemia after the first morning. Lisa was never able to do 3 hours of therapy, primarily because she says I can't with most activities the therapists try to do with her. She has been observed manipulating the WC with ease and even doing corners when she thinks no one is watching. One day prior to DC she told the PT she did not know how to use the WC and she purposefully ran the WC into the Wall. The PT explained once again the mechanics of the WC and how to use it and she propelled the WC a few feet and said once again she did not know how to use the chair and ran it into the wall again. She wants to be in bed lying flat on her back all the day. It is difficult to get her to get her into the shower because she does not want to bathe. She was started on Effexor XR 37.5 mg on her first day in therapy. After 1 week she was tolerating the medication with no adverse side effects and the dosage was increased to 75 mg daily on 03/30/2020. She has had no adverse side effects. We have been getting her into the chair for meals and require that she sits upright for ay least 1 hour. She is constantly on her call light wa nting to get back in bed. She has no motivation to do anything for herself and will not even try. In my opinion she needs psychotherapy in addition to and anti-depressant if she is going to get better. She is manipulative and has many excuses of why she is not getting better......The most popular are no one showed her what to do and no one is helping her. If the antidepressant and therapy are effective and she gets stronger I am willing to take her back to acute rehab to do 3 hours of therapy daily. She has so much potential......the deficits from the CVA are not that bad. She just will not try. She will need to follow up with Dr. Herrera for the ankle going forward and also with her PCP Dr. Jaqueline Brito. Alert, lying flat in bed on her back, flat affect, poor eye contact at times Mucous membranes are dry No JVD Lungs-clear to auscultation anterior and lateral, she did take deep breaths when instructed to Heart-regular rate and rhythm, no gallop, no murmur, no rub Abdomen-obese, soft, nontender to palpation, bowel sounds present, no abdominal bruits She has intact sensation to the toes on the left foot and they have good cap refill and are warm to the touch No significant edema of the right lower extremity No rashes and no skin breakdown Left facial droop - less prominent, minimal weakness in the LUE and will not pick the LLE up because she states the cast is too heavy. This note was generated with [employer] software. It may contain incorrect words, spelling, and punctuation that were not noted in checking the note before signing. Patient Problems: Active and Suspected Problems Ischemic cerebrovascular accident (CVA) (Acute) Right MCA distribution involving right caudate, insular and frontal areas Trimalleolar fracture of left ankle (Acute) Dysphagia (Acute) Normochromic normocytic anemia (Acute) Status post ORIF of fracture of ankle (Acute) Closed trimalleolar left ankle fracture sustained in a fall Physical debility (Acute) Due to recent right MCA ischemic CVA causing a fall and resulting in a left trimalleolar ankle fracture. Ectopic beats (Acute) Nonconducted Incontinence (Acute) - Physical Exam Vitals/I&O's: Vital Signs Temp Pulse Resp BP Pulse Ox 97.6 F L 79 16 107/54 L 96 04/05/20 10:00 04/05/20 10:00 04/05/20 10:00 04/05/20 10:00 04/05/20 10:00 Oxygen Delivery Method Room Air Weight: 220 lb 7.396 oz Body Mass Index (BMI) 36.3 Intake and Output for Last 24 Hours 04/03/20 04/04/20 04/05/20 23:59 23:59 23:59 Intake Total 280 / 280 930 / 930 420 / 420 Balance 280 / 280 930 / 930 420 / 420 Microbiology Past 72 Hours 04/04/20 Unknown Mucosa - Nasopharyngeal SARS-CoV-2 Antigen (Rapid) - Final Laboratory Results 04/04/20 16:58: POC Glucose 122 H 04/05/20 06:56: POC Glucose 124 H Current Medications Acetaminophen (Acetaminophen 500 Mg Tablet) 1,000 mg PO TID [facility] Last Admin: 04/05/20 04:54 Dose: 1,000 mg Documented by: Alprazolam (Alprazolam 0.25 Mg Tablet) 0.25 mg PO BID [facility] Stop: 04/06/20 22:01 Last Admin: 04/05/20 08:24 Dose: 0.25 mg Documented by: Alprazolam (Alprazolam 0.25 Mg Tablet) 0.25 mg PO DAILY [facility] Atorvastatin Calcium (Atorvastatin Calcium 80 Mg Tablet) 80 mg PO QHS [facility] Last Admin: 04/04/20 20:47 Dose: 80 mg Documented by: Bisacodyl (Bisacodyl 10 Mg Suppository) 10 mg RECTAL .PRN X 1 PRN PRN Reason: Constipation Calamine/Phenol (Menthol/Lanolin/Calamine/Znox 113 Gm Tube) 1 applic TOPICAL BID [facility]; Protocol Last Admin: 04/05/20 08:18 Dose: 1 applicatio Documented by: Calcium Carbonate (Calcium Carbonate 500 Mg Tablet) [facility] Last Admin: 04/05/20 08:17 Dose: 500 mg Documented by: Diltiazem HCl (Diltiazem Cd 240 Mg Capsule) 240 mg PO DAILY [facility] Last Admin: 04/05/20 08:18 Dose: 240 mg Documented by: Enoxaparin Sodium (Enoxaparin 40 Mg/0.4 Ml Syringe) 40 mg SC DAILY@0600 [facility] Last Admin: 04/05/20 04:52 Dose: 40 mg Documented by: Insulin Glargine (Insulin Glargine 100 Units/Ml Pen) 6 units SC DAILY [facility] Last Admin: 04/05/20 08:19 Dose: 6 u Documented by: Loperamide HCl (Loperamide 2 Mg Capsule) 2 mg PO Q4H PRN PRN PRN Reason: DIARRHEA Losartan Potassium (Losartan Potassium 100 Mg Tablet) 100 mg PO DAILY [facility] Last Admin: 04/05/20 08:19 Dose: 100 mg Documented by: Magnesium Hydroxide (Magnesium Hydroxide 30 Ml Udc) 30 ml PO .PRN X 1 PRN PRN Reason: Constipation Last Admin: 03/24/20 17:40 Dose: 30 ml Documented by: Nortriptyline HCl (Nortriptyline 10 Mg Capsule) 10 mg PO QHS [facility] Last Admin: 04/04/20 20:50 Dose: 10 mg Documented by: Nystatin (Nystatin Powder 15gm Bottle) 1 applic TOPICAL 0600,2200 [facility]; Protocol Last Admin: 04/05/20 04:54 Dose: 1 applicatio Documented by: Oxycodone HCl (Oxycodone 5 Mg Tablet) 5 mg PO Q8H PRN PRN PRN Reason: Pain 1-10 Last Admin: 04/04/20 16:52 Dose: 5 mg Documented by: Polyethylene Glycol (Polyethylene Glycol 3350 17 Gm Packet) 17 gm PO DAILY [facility] Last Admin: 04/05/20 08:21 Dose: Not Given Documented by: Potassium Chloride (Potassium Chloride 20 Meq Tablet) 20 meq [facility] Last Admin: 04/05/20 08:17 Dose: 20 meq Documented by: Venlafaxine HCl (Venlafaxine Xr 75 Mg Capsule) 75 mg PO DAILY [facility] Last Admin: 04/05/20 08:19 Dose: 75 mg Documented by: Home Medications: Medications to take at Discharge Acetaminophen [Tylenol] 1,000 mg PO TID 03/22/20 Atorvastatin Calcium [Lipitor] 80 mg PO QHS 03/22/20 Calcium Carbonate [Calcium] 600 mg PO BID 03/22/20 Insulin Glargine,Hum.rec.anlog [Lantus] 6 unit SC DAILY 03/22/20 Losartan Potassium [Cozaar] 100 mg PO DAILY 03/22/20 Polyethylene Glycol 3350 [Miralax] 17 gm PO DAILY 03/22/20 ALPRAZolam [Xanax] 0.25 mg PO DAILY 7 Days #7 tab 04/05/20 Bisacodyl [Dulcolax] 10 mg RECTAL .PRN X 1 PRN suppos. 04/05/20 Diltiazem CD [Cardizem CD] 240 mg PO DAILY capsule 04/05/20 Enoxaparin Sodium [Lovenox] 40 mg SQ DAILY@0600 #7 syr 04/05/20 Loperamide [Imodium] 2 mg PO Q4H PRN PRN capsule 04/05/20 Magnesium Hydroxide [Milk Of Magnesia] 30 ml PO .PRN X 1 PRN udc 04/05/20 Menthol/Lanolin/Calamine/Znox [Calmoseptine Ointment] 1 applic TOPICAL BID tube 04/05/20 Nortriptyline HCl [Pamelor] 10 mg PO QHS capsule 04/05/20 Potassium Chloride [K-Dur] 20 meq PO DAILYCM tablet 04/05/20 Venlafaxine XR [Effexor Xr] 75 mg PO DAILY capsule 04/05/20 Following Prescriptions Were Given to Patient: ALPRAZolam [Xanax] 0.25 mg PO DAILY 7 Days #7 tab Prescription Printed Primary Care Physician: Jaqueline Brito DO [Primary Care Provider] - Please follow up with your Primary Care Physician in: following DC from SNF Please Follow Up With: Dr. Herrera - surgeon who repaired the ankle Disposition: Custodial facility Minutes spent on discharge:: 40 Patient Condition:: Stable Medical Necessity - Tobacco Use Smoking Status: Never smoker Tobacco Use: Non-smoker Meaningful Use Info Meaningful Use Diagnoses (Choose all that apply): Ischemic CVA - CVA Therapy Assessed for PT,OT and/or ST?: Yes - Ischemic Stroke Antithrombotic order at d/c?: No Reason antithrombotic not ordered: Drug Allergy Dx of Atrial fib/flutter?: No Anticoagulant at discharge?: No Reason anticoagulant not ordered: Treatment not Indicated Statins at discharge?: Yes Primary Dx Acute Ischemic CVA?: Yes IV tPA ordered during stay?: No Reason IV t-PA not ordered: Treatment not Indicated - she was not at this facility when she had the CVA and the last known well was unknown Inpatient E&M: [id number] Disch Hosp
[2020-04-05 13:53] VITALS: BP 107/54; PULSE 79; RESP 16; TEMP 36.4; O2SAT 96
[2020-04-05 13:55] VITALS: BMI 36.3
[2020-04-05 13:56] VITALS: BMI 36.3
--- NOTE | 2020-04-05 13:56 | NURSING ---
[facility] Report call to [facility].
== END 2020-04-05 13:30 | disposition skilled nursing facility (03) | DRG 57 ==
PROVIDERS: Admitting Provider Internal Medicine; PCP Family Medicine; Visit Provider Internal Medicine
DX: I69.354 Hemiplegia and hemiparesis following cerebral infarction affecting left non-dominant side (principal); E66.01 Morbid (severe) obesity due to excess calories; Z68.35 Body mass index [BMI] 35.0-35.9, adult; Z86.19 Personal history of other infectious and parasitic diseases; S82.852D Displaced trimalleolar fracture of left lower leg, subsequent encounter for closed fracture with routine healing; W19.XXXD Unspecified fall, subsequent encounter; N18.9 Chronic kidney disease, unspecified; E11.22 Type 2 diabetes mellitus with diabetic chronic kidney disease; N18.31 Chronic kidney disease, stage 3a; E11.42 Type 2 diabetes mellitus with diabetic polyneuropathy; E78.5 Hyperlipidemia, unspecified; K58.9 Irritable bowel syndrome, unspecified; G47.33 Obstructive sleep apnea (adult) (pediatric); F32.9 Major depressive disorder, single episode, unspecified; F41.9 Anxiety disorder, unspecified; T79.6XXD Traumatic ischemia of muscle, subsequent encounter; I12.9 Hypertensive chronic kidney disease with stage 1 through stage 4 chronic kidney disease, or unspecified chronic kidney disease; I69.391 Dysphagia following cerebral infarction; R13.10 Dysphagia, unspecified; D64.9 Anemia, unspecified; R32 Unspecified urinary incontinence; I69.392 Facial weakness following cerebral infarction
CPT/HCPCS: 36415; 80048; 80053; 80061; 81001; 82043; 82306; 82550; 82570; 82962; 83735; 84100; 84443; 85014; 85018; 85027; 87086; 87426; 92507; 92526; 92610; 93005; 94762; 96125; 97110; 97112; 97162; 97166; 97530; 97535; 97542; 97802; 99251; G0463

== ENCOUNTER 2020-08-28 10:11 | Emergency (ER) | payer MEDICARE, BC, SELFPAY ==
[2020-08-28 10:12] VITALS: BP 143/76; PULSE 82; RESP 12; TEMP 36.4; O2SAT 97; BMI 36.8
--- NOTE | 2020-08-28 10:27 | EKG12_ITS ---
Test Reason : SYNCOPE Blood Pressure : / mmHG Vent. Rate : 073 BPM Atrial Rate : 073 BPM P-R Int : 160 ms QRS Dur : 086 ms QT Int : 398 ms P-R-T Axes : -03 -35 079 degrees QTc Int : 438 ms Normal sinus rhythm Left axis deviation Inferior infarct , age undetermined Anterolateral infarct , age undetermined Abnormal ECG Confirmed by JIMENA CHACKO, DIAMANTE ([id number]), editor city EDDIE GARCES ([id number]) on 08/29/2020 9:24:07 AM Referred By: FANG Confirmed By:DIAMANTE HESS MD
--- NOTE | 2020-08-28 10:28 | EX.ED.DYSGE1 ---
HPI History of Present Illness Chief Complaint: Syncope Narrative Narrative: Patient presenting for evaluation secondary to a syncopal episode. Patient has a history of a recent stroke, and a resulting left ankle fracture. She currently is residing in rehab. Patient apparently had a syncopal event today. Patient states that they were trying to have her get up on her own, brush her teeth, and go to the bathroom prior to going to her physical rehab. They state that she had a syncopal event. Patient does endorse that she felt lightheaded and sweaty prior to this but denies any preceding chest pain palpitations or shortness of breath. She does not feel that she injured herself when she passed out as she was already in her wheelchair. Patient denies any new infectious signs or symptoms. She has baseline left-sided weakness after her stroke. Review of systems otherwise negative. [facility] Medical History Hypertension Non-smoker Stroke/cerebrovascular accident Home Medications acetaminophen 1,000 mg PO TID 03/22/20 [History Last Taken Unknown] atorvastatin 80 mg PO QHS 03/22/20 [History Last Taken Unknown] calcium carbonate 600 mg PO BID 03/22/20 [History Last Taken Unknown] insulin glargine 6 unit SC DAILY 03/22/20 [History Last Taken Unknown] losartan 100 mg PO DAILY 03/22/20 [History Last Taken Unknown] polyethylene glycol 3350 17 gm PO DAILY 03/22/20 [History Last Taken Unknown] bisacodyl 10 mg RECTAL .PRN X 1 PRN suppos. 04/05/20 [Rx Last Taken Unknown] diltiazem HCl 240 mg PO DAILY cap 04/05/20 [Rx Last Taken Unknown] enoxaparin 40 mg SQ DAILY@0600 #7 syr 04/05/20 [Rx Last Taken Unknown] loperamide 2 mg PO Q4H PRN PRN cap 04/05/20 [Rx Last Taken Unknown] magnesium hydroxide 30 ml PO .PRN X 1 PRN udc 04/05/20 [Rx Last Taken Unknown] menthol-zinc oxide 1 applic TOPICAL BID tube 04/05/20 [Rx Last Taken Unknown] nortriptyline 10 mg PO QHS cap 04/05/20 [Rx Last Taken Unknown] potassium chloride 20 meq PO DAILYCM tab 04/05/20 [Rx Last Taken Unknown] venlafaxine 75 mg PO DAILY cap 04/05/20 [Rx Last Taken Unknown] Allergy/AdvReac Type Severity Reaction Status Date / Time SOFIA Inhibitors AdvReac NEEDS Verified 08/28/20 10:17 FOLLOW-UP buspirone [From BuSpar] AdvReac PT UNSURE Verified 08/28/20 10:17 OF REACTION escitalopram [From Lexapro] AdvReac PT UNSURE Verified 08/28/20 10:17 OF REACTION glimepiride AdvReac PT UNSURE Verified 08/28/20 10:17 OF REACTION glipizide AdvReac PT UNSURE Verified 08/28/20 10:17 OF REACTION meloxicam AdvReac PT UNSURE Verified 08/28/20 10:17 OF REACTION metformin AdvReac PT UNSURE Verified 08/28/20 10:17 OF REACTION NSAIDS (Non-Steroidal AdvReac PT UNSURE Verified 08/28/20 10:17 Anti-Inflamma OF REACTION pioglitazone [From Actos] AdvReac PT UNSURE Verified 08/28/20 10:17 OF REACTION prednisone AdvReac PT UNSURE Verified 08/28/20 10:17 OF REACTION quetiapine [From Seroquel] AdvReac PT UNSURE Verified 08/28/20 10:17 OF REACTION rosuvastatin [From Crestor] AdvReac PT UNSURE Verified 08/28/20 10:17 OF REACTION Surgical History History of cholecystectomy Social History Smoking Status: Never smoker ROS ROS ED Constitutional Constitutional ED: Denies chills or fever(s) ENT ENT ED: Denies rhinorrhea Cardiovascular Cardiovascular: Reports other Details: Positive for syncope ; Denies chest pain Respiratory/Chest Respiratory/Chest: Denies cough or dyspnea Gastrointestinal Gastrointestinal: Denies abdominal pain, diarrhea, nausea or vomiting Genitourinary Genitourinary ED: Denies dysuria or hematuria Musculoskeletal Musculoskeletal: Denies back pain Integumentary Denies rash Neurologic Neurologic: Denies paresthesias or weakness Psychiatric Psychiatric: Denies depression Endocrine Endocrinology: Denies fatigue Allergic/Immunologic Allergic/Immunologic ED: Denies urticaria EXAM Physical Exam Const Vital Signs: 08/28/20 10:12 08/28/20 10:52 08/28/20 13:24 Temperature 97.5 F L Temperature Source Oral Pulse Rate 82 71 Respiratory Rate 12 28 H Blood Pressure 143/76 H 163/80 H Blood Pressure Mean 98 107 Pulse Ox 97 97 98 Oxygen Delivery Method Room Air Room Air Room Air Positive well nourished, well developed and obese General Appearance ED: well developed and NAD Nutritional Appearance: obese HEENT Reports moist mucous membranes Negative for trauma or tenderness Eyes EOMs intact bilaterally Neck no lymphadenopathy, supple and no JVD Chest Wall inspection of chest normal Resp normal respiratory effort and clear to auscultation bilaterally Cardio regular rate, regular rhythm, no murmurs and peripheral pulses 2+ throughout GI normal to inspection, nondistended, normoactive bowel sounds, non-tender and no masses Palpation: soft Back/Spine normal to inspection Extremity normal to inspection Extremity Narrative: Well-healing surgical wound on the patient's medial left ankle. General Extremety ED: Negative for tenderness Neuro oriented x3 and no sensory deficits noted Neuro Narrative: Baseline left-sided weakness is unchanged Sensorium / Orientation: alert Psych mental status grossly normal Skin no rashes or lesions noted MDM MDM MDM Narrative Medical decision making narrative: Patient presented secondary to a syncopal episode. Patient's EKG was found to be unremarkable. CBC and chemistry appeared stable, initial troponin was obtained and was 0.028. Patient was observed for 3 hours and a repeat troponin was drawn and this was found to be stable at 0.029. Patient not on believe at this point requires admission. Patient's history sounds very consistent with that of a syncopal event potentially caused by orthostasis. Patient at this point I believe is stable and appropriate for discharge. Patient was discharged in stable condition. Lab Data Labs: Laboratory Results - last 24 hr 08/28/20 08/28/20 08/28/20 10:25 10:25 13:55 WBC 6.5 RBC 4.37 Hgb 12.8 Hct 39.3 MCV 89.9 MCH 29.3 MCHC 32.6 RDW Std Deviation 47.8 H RDW Coeff of Junior 14.4 Plt Count 263 MPV 10.3 Immature Gran % (Auto) 0.200 Neut % (Auto) 58.0 Lymph % (Auto) 34.0 [place] % (Auto) 6.0 Eos % (Auto) 1.2 Baso % (Auto) 0.6 Absolute Neuts (auto) 3.8 Absolute Lymphs (auto) 2.20 Nucleated RBC % 0 Sodium 136 Potassium 4.2 Chloride 103 Carbon Dioxide 25.0 Anion Gap 8 BUN 15 Creatinine 1.43 H Estim Creat Clear Calc 26.44 Est GFR (MDRD) Af Amer 46 L Est GFR (MDRD) Non-Af 38 L BUN/Creatinine Ratio 10.5 Glucose 203 H Calcium 9.4 Troponin I 0.028 0.029 EKG Initial EKG: Attestation: I personally reviewed and interpreted this EKG as follows: (Sinus rhythm at 73 with left axis deviation. There are inferior and lateral Q waves noted no abnormal ST segment deviation or abnormal T waves. Normal intervals.) Discharge Plan Triage Chief Complaint: Syncope ED Provider: Chalino Berg Dx/Rx/DC Orders Clinical Impression: Syncope Instructions: ED Hypotension, Orthostatic Prescriptions: No Action atorvastatin 80 MG tablet 80 mg PO QHS RF: 0 insulin glargine 100 UNIT/ML solution 6 unit SC DAILY RF: 0 polyethylene glycol 3350 17 GM packet 17 gm PO DAILY RF: 0 acetaminophen 500 MG tablet 1,000 mg PO TID RF: 0 calcium carbonate 600 MG tablet 600 mg PO BID RF: 0 losartan 100 MG tablet 100 mg PO DAILY RF: 0 diltiazem HCl 240 MG capsule 240 mg PO DAILY RF: 0 bisacodyl 10 MG suppository 10 mg RECTAL .PRN X 1 PRN (Reason: Constipation) RF: 0 venlafaxine 75 MG capsule 75 mg PO DAILY RF: 0 loperamide 2 MG capsule 2 mg PO Q4H PRN PRN (Reason: DIARRHEA) RF: 0 potassium chloride 20 MEQ tablet 20 meq PO DAILYCM RF: 0 magnesium hydroxide 30 ML suspension 30 ml PO .PRN X 1 PRN (Reason: Constipation) RF: 0 nortriptyline 10 MG capsule 10 mg PO QHS RF: 0 menthol-zinc oxide 1 APPLIC ointment 1 applic TOPICAL BID RF: 0 enoxaparin 40 MG/0.4 ML syringe 40 mg SQ DAILY@0600 Qty: 7 RF: 0 Primary Care Provider: Jaqueline Brito Referrals: Jaqueline Brito DO [Primary Care Provider] - 1 Week Disposition Disposition: [facility]pc Facility Discharge Location: [facility]
[2020-08-28 10:34] LABS: Absolute Neutrophil Count 3.8 X10^3/uL (2.0-7.7); Basophil# 0.04 X10^3/uL; Basophil% 0.6 % (0-1); Eosinophil# 0.08 X10^3/uL; Eosinophils% 1.2 % (0-5); Hematocrit 39.3 % (37-47); Hemoglobin 12.8 g/dL (12.0-15.0); Mean Corp Hgb Conc 32.6 g/dL (32-36); Mean Corpuscular Hgb 29.3 pg (27.0-32.0); Mean Corpuscular Volume 89.9 fL (81-99); Mean Platelet Vol. 10.3 fl (6.2-12.0); Monocyte# 0.39 X10^3/uL; NRBC Flagged by Analyzer 0 % (0-5); Neutrophil # 3.76 X10^3/uL (2.7-7.7); Platelet Count 263 K/mm3 (150-450); RBC Distribution Width CV 14.4 % (11.6-14.6); RBC Distribution Width SD 47.8 fl (35.1-43.9); Red Blood Count 4.37 M/mm3 (4.2-5.4); White Blood Count 6.5 K/mm3 (4.4-11.0)
[2020-08-28 10:51] LABS: Anion Gap 8 (5-15); BUN 15 mg/dL (7-18); BUN/Creat Ratio 10.5 RATIO (10-20); Calcium,Total 9.4 mg/dL (8.5-10.1); Chloride 103 mmol/L (98-107); Creatinine, Serum 1.43 mg/dL (0.55-1.02); EST Glomerular Filtration Rate 38 mL/min (>60); Est Glom Filt Rate - Afr Amer 46 mL/min (>60); Estimated Creatinine Clearance 26.44 ml/min; Glucose 203 mg/dL (74-106); Potassium 4.2 mmol/L (3.5-5.1); Sodium Level 136 mmol/L (136-145)
[2020-08-28 10:52] VITALS: O2SAT 97
[2020-08-28 13:24] VITALS: BP 163/80; PULSE 71; RESP 28; O2SAT 98
[2020-08-28 15:02] VITALS: BP 181/81; PULSE 76; RESP 14; O2SAT 98
--- NOTE | 2020-08-28 15:06 | ED.RN ---
spoke with Charlotte choudhury fruithurst, informed her that pt would be returning.
--- NOTE | 2020-08-28 15:32 | NURSING ---
CALLED [facility], ETA IS 30 MIN
--- NOTE | 2020-08-28 16:37 | ED.RN ---
[facility] AT BEDSIDE FOR TRANSPORT
== END 2020-08-28 16:38 | disposition skilled nursing facility (03) ==
PROVIDERS: Emergency Provider Emergency Medicine; PCP Family Medicine
DX: R55 Syncope and collapse (principal); R53.1 Weakness; E66.9 Obesity, unspecified; I10 Essential (primary) hypertension; Z90.49 Acquired absence of other specified parts of digestive tract; Z86.73 Personal history of transient ischemic attack (TIA), and cerebral infarction without residual deficits
CPT/HCPCS: 80048; 84484; 85025; 93005; 99285; J7030; A4216

== ENCOUNTER → 2020-10-09 13:16 | Outpatient (CLI) | payer MEDICARE, BC, SELFPAY ==
--- NOTE | 2020-10-09 14:48 | ST.MBS ---
Modified Barium Swallow - Patient Information Study Date: 10/09/20 Study Time: 01:30 Direct Billable Minutes: 150 Total Minutes procedure & reportin Diagnosis: Dysphagia following cerebral infarction (I69.391) Referring Physician: Carmina Burton NP Reason for Referral: Pt referred for MBS study due to choking episodes and history for oropharyngeal dysphagia. Medical History: PMH: type 2 diabetes mellitus, morbid obesity, diabetic neuropathy, HTN, chronic renal failure, anxiety and depression, HLD, IBS, OLESYA, history of vitamin D deficiency, history of osteoporosis, history of colon, left ventricular hypertrophy. The patient is a 75 year old female who was referred for MBS study due to choking at meals and history of oropharyngeal dysphagia. The patient reports having had esophageal dilatation completed years ago. She mostly consumes soft solid textures, but she must avoid breads as she feels they get caught in her thoracic esophagus. She reports coughing and sensation of retention in her esophagus of both solid foods and drinks. She denies history of pneumonia, but does report history of reflux. She has a history of dysphagia following ischemic right MCA infarct occurring in February of 2020. She participated in speech therapy services at the [facility] inpatient rehabilitation unit 03/23/2020 to 04/04/2020. She was discharged with recommendations for continued speech therapy and was on the following diet: minced & moist textures/thin liquids with direct supervision, check for pocketing, encourage tongue/finger sweep and liquid wash, small bites/sips, upright 90 degrees, deliver bites/sips to R side, oral care following each meal. Current Diet Ordered: Soft textures / Thin liquids Dentition: WNL - Study Findings Consistencies: Thin Liquid, [place] Thick Liquid, Honey Thick Liquid, Pudding, Cookie - Penetration-Aspiration Scale Penetration-Aspiration Scale: OBJECTIVE ASSESSMENT OF SWALLOW FUNCTION (QUANTITATIVE ? PER TRIAL): PENETRATION / ASPIRATION SCALE (JEFFERY): 1 = does not enter airway 2 = enters airway/above vocal folds/ejected 3 = enters airway/above vocal folds/not ejected 4 = enters airway/contacts vocal folds/ejected 5 = enters airway/contacts vocal folds/not ejected 6 = enters airway/below vocal folds/ejected 7 = enters airway/below vocal folds/not ejected despite effort 8 = enters airway/below vocal folds/no effort VIDEOFLOROSCOPIC SCALE SCORE (JEFFERY): Grade I = aspiration of material that has penetrated into the laryngeal vestibule, intact cough reflex Grade II = aspiration < 10 % of the bolus, intact cough reflex Grade III = aspiration of < 10 % of the bolus, reduced cough reflex or aspiration of > 10 % of the bolus, intact cough reflex Grade IV = aspiration of > 10 % of the bolus, reduced cough reflex - Penetration-Aspiration Scale Score Thin Liquid via teaspoon Result: 1= does not enter airway Thin Liquid via small single sip from cup Result: 1= does not enter airway Thin Liquid via large single sip from cup Result: 2= enter airway/above vocal folds/ejected Thin Liquid via sequential sips from cup with esophageal scan Result: 2= enter airway/above vocal folds/ejected - Significant esophageal retention observed in the mid-esophagus with retrograde flow below the cricopharyngeus. [place] Thick Liquid via small single sip from cup Result: 1= does not enter airway Honey Thick Liquid via small single sip from cup Result: 1= does not enter airway Pudding with esophageal screen Result: 1= does not enter airway - Significant esophageal retention observed in the mid-esophagus. Cookie Result: 1= does not enter airway - Piecemeal deglutition observed. Thin Liquid via single sip from straw Result: 3= enters airways/above vocal folds/not ejected Thin Liquid via single sip from straw Trial 2 Result: 3= enters airways/above vocal folds/not ejected Thin Liquid via sequential sips from straw Result: 5= enters airways/contacts vocal folds/not ejected - Oral Phase Labial Seal: No Labial Escape Tongue Control During Bolus Hold: Posterior escape of less than half of bolus Bolus Preparation/Mastication: Slow prolonged chewing/mashing with complete recollection Bolus Transport/Lingual Motion: Repetitive/disorganized tongue motion Oral Residue: Trace residue lining oral structures - Pharyngeal Phase Initiation of Pharyngeal Swallow: Bolus head in pyriforms Soft Palate Elevation: Trace column of contrast/air between soft palate and pharyngeal wall Laryngeal Elevation: Partial superior movement thyroid cart/partial apprx aryt-epig petiole Anterior Hyoid Excursion: Partial anterior movement Epiglottic Movement: Partial inversion Laryngeal Vestibule Closure at Height of Swallow: Incomplete; narrow column of air/contrast in laryngeal vestibule Pharyngeal Stripping Wave: Present - diminished Pharyngoesophageal Segment Opening: Parital distension and partial duration; parital obstruction of flow Tongue Base Retraction: Narrow column of contrast between tongue base & post. pharyngeal wall Pharyngeal Residue: Collection of residue within or on pharyngeal structures - Esophageal Phase Esophageal Clearance: Esophageal retention w/ retrograde flow below pharyngoesophageal seg. - Treatment Strategies Effects of treatment strategies attemped:: Reduced bolus size = effective in decreasing penetration of thin liquids consumed via cup. The patient consumed small, single sips via cup without penetration/aspiration under fluoroscopy. Reduced rate of intake = effective in decreasing laryngeal penetration of thin liquids. She benefits from consuming liquids taking sips one at a time. Removal of straw = effective in decreasing laryngeal penetration of thin liquids. - Diagnosis/Impression Diagnosis: mild-moderate oropharyngeal phase dysphagia (R13.12) Impression: The patient presents with mild-moderate oropharyngeal dysphagia. The oral phase of the swallow is marked by deficits in mastication with prolonged chewing. In addition, the patient has decreased lingual control and bolus formation with delayed and repetitive tongue motion resulting in posterior loss of less than half of the bolus when consuming solid textures. Trace oral residue evident after the swallow. The patient consumed solid textures with piecemeal deglutition. Pharyngeal phase deficits were characterized by delayed pharyngeal swallow onset timing resulting in suboptimal bolus location in the vallecula or on the posterior wall of the epiglottis upon swallow onset for most trials. With sequential sips of thin liquids via straw, the swallow initiated in the pyriforms. The patient also has reduced airway closure during deglutition attributed to reduced laryngeal elevation and anterior hyoid excursion resulting in decreased closure of the laryngeal vestibule. The patient also presented with mildly reduced posterior pharyngeal stripping wave, mildly reduced tongue base retraction resulting in mild pharyngeal residues. With large single sips via cup and sequential sips of thin liquids via cup, the patient presented with penetration above the vocal folds with ejection from the laryngeal vestibule. With sips of thin liquids via the straw, the patient presented with penetration above the vocal folds without ejection. Sequential sips of thin liquids via straw resulted in penetration to the vocal folds without ejection and no cough response was elicited. The patient demonstrated some delayed throat clearing during the study. The patient?s esophageal phase was marked by significant esophageal retention of both liquid and solid textures with retrograde flow below the cricopharyngeus. - Recommendations Diet: Regular Textures - Soft & Bite Sized (IDDSI Level 6), Thin Liquids Compensatory Strategies: Small Bites, Small Sips - Sips one at a time, No Straws, Slow Rate, Sitting upright, Remain sitting upright for 30 minutes after PO intake - Remain upright 60 minutes following meals, Assist with verbal cues to use recommended strategies Supervision: 1:1 Close Supervision - Direct supervision as long as the patient requires assistance with verbal cues for follow through with the above recommended strategies. Recommend Repeat Modified Barium Swallow: TBD - Would consider reconsult if increased s/s of aspiration evident following GI work up. Need for Skilled Speech Therapy Services: Yes Comment: Will recommend the patient for dysphagia therapy to address mild-moderate deficits in oropharyngeal function of swallow. Would consider the patient for oropharyngeal strengthening to improve lingual coordination, hyolaryngeal elevation and excursion, and tongue base retraction. The patient would benefit from thorough education regarding diet recommendations and recommended compensatory strategies. Recommended Referrals: GI Consult - Pt requires a referral for esophageal workup due to the significant esophageal retention evident, as well as the reported esophageal discomfort described in the history by the patient. Education Completed: 1. Described result of evaluation., 7. Pt requires further education on strategies & risks. - Image Count: 634 - Status Active ST Patient: Not Active - Contact Information [facility] Speech Therapy:: Marianna David M.A., [facility] [employer] Speech Language Pathologist [facility] [address] [place] [address] [email or web address] [phone]
== END ==
PROVIDERS: PCP Family Medicine; Referring Provider Registered Nurse; Visit Provider Registered Nurse
DX: R13.10 Dysphagia, unspecified (principal)
CPT/HCPCS: 74230; 92611

== ENCOUNTER 2021-08-08 17:09 | Emergency (ER) | payer MEDICARE, BC, SELFPAY ==
[2021-08-08 17:11] VITALS: BP 128/115; PULSE 96; RESP 18; TEMP 36.8; O2SAT 97; BMI 36.9
--- NOTE | 2021-08-08 17:20 | CT_ITS ---
STUDY: CT BRAIN WITHOUT CONTRAST ENHANCEMENT OF 1746 HOURS ON 08/08/2021 REASON FOR EXAM: 76-year-old female with a first-time seizure. RADIATION DOSAGE (If Supplied By Facility): CTDIvol = ( 44.99 ) mGy, DLP = ( 779.24 ) mGycm TECHNIQUE: Transaxial CT imaging of the brain was performed without administration of intravenous contrast material. Individualized dose optimization techniques were used for this CT. COMPARISON: No relevant priors. FINDINGS: There is a large 5.9 cm x 3.3 cm area of encephalomalacia in the right lateral parietal region with evidence of an old craniotomy at that site.. There is no midline shift. There is slight dilatation right lateral ventricle. No evidence of sites of ischemic hemorrhagic cerebral infarct. There is no evidence of subarachnoid hemorrhage. There is no evidence of intracranial neoplasms. Remainder of the calvarium has a normal appearance except for normal hyperostosis frontalis interna. The paranasal sinuses are normal. CT/Brain/Head without Contrast IMPRESSION: 1. 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 2. Slight dilatation of the right lateral ventricle secondary to the adjacent area of encephalomalacia, but no evidence of a midline shift. 3. No evidence of ischemic or hemorrhagic cerebral infarct. 4. No intracranial neoplasms, hemorrhage or hematomas. 5. Except for the right parietal craniotomy, the osseous calvarium has a normal appearance. Mild hyperostosis frontalis interna is present, normal variant. 6. Normal paranasal sinuses. Electronically Signed: Brenden Valladares MD at 18:33 EDT ,
--- NOTE | 2021-08-08 17:29 | ED.RN ---
PT IN BY [facility] MOANING AND C/O MY BACK IS HURTING REPORTED FROM EMS THAT PT WITH POSS UNWITNESSED SEIZURE WITH PT BITING TONGUE PT NOT SURE OF SEIZURE BUT DENIES FALLING AND JUST MOANING ABOUT BACK. STATED, THAT TAKES TYLENOL FOR BUT HADNT HAD IT TODAY'
[2021-08-08 17:40] LABS: Bedside Glucose 257 mg/dL (74-106)
[2021-08-08 17:54] LABS: Absolute Lymphocyte Count 2.81 X10^3/uL (0.83-4.51); Basophil# 0.03 X10^3/uL; Basophil% 0.4 % (0-1); Eosinophil# 0.08 X10^3/uL; Eosinophils% 0.9 % (0-5); Hematocrit 37.8 % (37-47); Hemoglobin 12.9 g/dL (12.0-15.0); Lymphocyte # 2.81 X10^3/ul (0.83-4.51); Lymphocyte % 33.1 % (19-41); Mean Corp Hgb Conc 34.1 g/dL (32-36); Mean Corpuscular Hgb 29.1 pg (27.0-32.0); Mean Corpuscular Volume 85.3 fL (81-99); Mean Platelet Vol. 10.3 fl (6.2-12.0); Monocyte# 0.48 X10^3/uL; Monocyte% 5.7 % (0-10); NRBC Flagged by Analyzer 0 % (0-5); Platelet Count 260 K/mm3 (150-450); RBC Distribution Width CV 13.1 % (11.6-14.6); Red Blood Count 4.43 M/mm3 (4.2-5.4); White Blood Count 8.5 K/mm3 (4.4-11.0)
[2021-08-08 18:08] LABS: ALB/GLOB Ratio 0.8 RATIO (0.9-2.4); AST(SGOT) 10 U/L (15-37); Alanine Aminotransfer ALT/SGPT 16 U/L (13-56); Albumin, Serum 3.3 g/dL (3.2-5.0); Alkaline Phosphatase 131 U/L (45-117); Anion Gap 8 (5-15); BUN 19 mg/dL (7-18); BUN/Creat Ratio 13.4 RATIO (10-20); Calcium,Total 8.9 mg/dL (8.5-10.1); Chloride 102 mmol/L (98-107); Creatinine, Serum 1.42 mg/dL (0.55-1.02); EST Glomerular Filtration Rate 38 mL/min (>60); Est Glom Filt Rate - Afr Amer 47 mL/min (>60); Estimated Creatinine Clearance 27.49 ml/min; Globulin 4.2 g/dL (2.2-4.2); Glucose 247 mg/dL (74-106); Potassium 4.1 mmol/L (3.5-5.1); Protein, Total 7.5 g/dL (6.4-8.2); Sodium Level 135 mmol/L (136-145)
--- NOTE | 2021-08-08 18:18 | EX.ED.DYSGE1 ---
HPI History of Present Illness Chief Complaint: Seizure Detail of Chief Complaint: Sent from [facility] for evaluation of seizure Informant: patient and other Onset/Context/Timing Onset: Today Quality: Unknown Location: Nursing facility Current Severity: Patient is alert oriented Maximum Severity: Unknown Worsened by: No prior history of seizure Relieved by: Unknown Associated Symptoms Associated Symptoms: Bit tongue Narrative Narrative: Patient is a 76-year-old woman who had a stroke March 2021. She presents after apparent seizure. She has history of type 2 diabetes. She was not hypoglycemic per squad. She complains of slight head discomfort. She denies double vision, blurred vision loss of vision. [place] ringing ears decreased hearing. No drainage from ears. She denies rhinorrhea, congestion postnasal drainage. Denies sore throat. Denies neck pain. She has 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 pain. She denies chest pain or shortness of breath. Denies cough. She denies nausea, vomiting diarrhea. She denies constipation. She denies dysuria, frequency, urgency or hematuria. She reports pain in her lower extremities due to prior fractures. Prior similar symptoms: No Recent Illness/Hospitalization: Yes (Stroke March 2021) [facility] Medical History Anemia Depressed Diabetes Hyperlipemia Hypertension Irritable bowel disease Kidney disease Non-smoker Obesity Osteoporosis Sleep apnea Stroke/cerebrovascular accident Vitamin D deficiency Home Medications acetaminophen 1,000 mg PO TID 03/22/20 [History Last Taken Unknown] atorvastatin 80 mg PO QHS 03/22/20 [History Last Taken Unknown] calcium carbonate 600 mg PO DAILY 03/22/20 [History Last Taken Unknown] losartan 100 mg PO DAILY 03/22/20 [History Last Taken Unknown] polyethylene glycol 3350 17 gm PO DAILY 03/22/20 [History Last Taken Unknown] bisacodyl 10 mg RECTAL .PRN X 1 PRN suppos. 04/05/20 [Rx Last Taken Unknown] diltiazem HCl 240 mg PO DAILY cap 04/05/20 [Rx Last Taken Unknown] loperamide 2 mg PO Q4H PRN PRN cap 04/05/20 [Rx Last Taken Unknown] magnesium hydroxide 30 ml PO .PRN X 1 PRN udc 04/05/20 [Rx Last Taken Unknown] menthol-zinc oxide 1 applic TOPICAL BID tube 04/05/20 [Rx Last Taken Unknown] nortriptyline 10 mg PO QHS cap 04/05/20 [Rx Last Taken Unknown] potassium chloride 20 meq PO DAILYCM tab 04/05/20 [Rx Last Taken Unknown] alprazolam 0.25 mg PO QHS 08/08/21 [History Last Taken Unknown] docusate sodium [Colace] 100 mg PO DAILY 08/08/21 [History Last Taken Unknown] insulin glargine 20 unit SUBCUT QPM 08/08/21 [History Last Taken Unknown] levetiracetam [Keppra] 500 mg PO BID #60 tab 08/08/21 [Rx Last Taken Unknown] meclizine 12.5 mg PO TID PRN 08/08/21 [History Last Taken Unknown] omeprazole 20 mg PO DAILY 08/08/21 [History Last Taken Unknown] ondansetron 4 mg PO Q6H PRN 08/08/21 [History Last Taken Unknown] sertraline 150 mg PO DAILY 08/08/21 [History Last Taken Unknown] Allergy/AdvReac Type Severity Reaction Status Date / Time SOFIA Inhibitors AdvReac NEEDS Verified 08/28/20 10:17 FOLLOW-UP buspirone [From BuSpar] AdvReac PT UNSURE Verified 08/28/20 10:17 OF REACTION escitalopram [From Lexapro] AdvReac PT UNSURE Verified 08/28/20 10:17 OF REACTION glimepiride AdvReac PT UNSURE Verified 08/28/20 10:17 OF REACTION glipizide AdvReac PT UNSURE Verified 08/28/20 10:17 OF REACTION meloxicam AdvReac PT UNSURE Verified 08/28/20 10:17 OF REACTION metformin AdvReac PT UNSURE Verified 08/28/20 10:17 OF REACTION NSAIDS (Non-Steroidal AdvReac PT UNSURE Verified 08/28/20 10:17 Anti-Inflamma OF REACTION pioglitazone [From Actos] AdvReac PT UNSURE Verified 08/28/20 10:17 OF REACTION prednisone AdvReac PT UNSURE Verified 08/28/20 10:17 OF REACTION quetiapine [From Seroquel] AdvReac PT UNSURE Verified 08/28/20 10:17 OF REACTION rosuvastatin [From Crestor] AdvReac PT UNSURE Verified 08/28/20 10:17 OF REACTION Surgical History History of cholecystectomy Social History (Updated 08/08/21 @ 18:[address] Bill Logan MD) housing: [facility] Smoking Status: Never smoker substance use type: does not use ROS ROS ED Constitutional Constitutional ED: Denies chills, fever(s), subjective or sweats Eyes Eyes: Denies blurry vision, change in vision or diplopia ENT ENT ED: Reports other Details: Tongue pain ; Denies ear pain, rhinorrhea or sore throat Cardiovascular Cardiovascular: Denies chest pain, palpitations or racing heartbeat Respiratory/Chest Respiratory/Chest: Denies cough, dyspnea or dyspnea on exertion Gastrointestinal Gastrointestinal: Denies abdominal pain, diarrhea, melena, nausea or vomiting Genitourinary Genitourinary ED: Denies dysuria, hematuria or urinary frequency Musculoskeletal Musculoskeletal: Denies arthralgias, myalgias or neck pain Integumentary Denies rash Neurologic Neurologic: Reports weakness; Denies headache(s) Psychiatric Psychiatric: Reports depression Endocrine Endocrinology: Denies polydipsia, polyphagia or polyuria EXAM Physical Exam Const Vital Signs: 08/08/21 17:11 Temperature 98.2 F Temperature Source Oral Pulse Rate 96 Respiratory Rate 18 Blood Pressure 128/115 H Blood Pressure Mean 119 Pulse Ox 97 Oxygen Delivery Method Room Air Positive well nourished and well developed General Appearance ED: well developed and NAD; Negative for cyanotic, diaphoretic or pallor HEENT Reports TM's clear and moist mucous membranes HEENT Narrative: TMs normal. Nares patent. Uvula midline. No angioedema. Negative for trauma or tenderness Tympanic Membrane ED: Yes TM's clear Eyes PERRL and EOMs intact bilaterally General Eye ED: Negative for pale conjunctiva or scleral icterus Neck no lymphadenopathy, supple and no JVD Neck Narrative: Trachea mid line. No in-store expiratory stridor. Chest Wall inspection of chest normal and palpation of chest normal Resp normal respiratory effort and clear to auscultation bilaterally Cardio regular rate, regular rhythm, S1 normal heart sound, S2 normal heart sound and no murmurs GI normal to inspection, nondistended, normoactive bowel sounds and non-tender Palpation: soft Back/Spine no CVA tenderness Cervical Spine: Negative for cervical spine tenderness Thoracic Spine / Upper Back: paraspinal muscle tenderness; Negative for thoracic spinal tenderness Lumbar Spine / Lower Back: lumbar spinal tenderness Neuro oriented x3, CN's II-XII intact bilaterally and no sensory deficits noted Sensorium / Orientation: alert Motor Exam: strength 5/5 throughout Psych Mood & Affect: depressed Skin no rashes or lesions noted and no wounds General Skin Exam: Negative for jaundice or pallor MDM MDM MDM Narrative Medical decision making narrative: Patient had had a seizure most likely the nidus is the prior stroke. Will obtain CAT scan and baseline blood work to rule out lectured abnormality infectious cause etc. In my opinion patient did have a seizure and the nidus is her prior significant right parietal stroke. Will load with Keppra and discharged to the nursing facility on Keppra. Lab Data Attestation: I reviewed the patient's lab results. Lab results narrative: Creatinine is elevated 1.42 with a GFR of 38. CBC, H&H and differential unremarkable. Comprehensive metabolic panel is remarkable for the elevated creatinine and glucose of 274. CO2 and anion gap CT per my review reveals no acute pathology. Will await formal read by radiologist. There is evidence of a right parietal stroke that is remote. Labs: Laboratory Results - last 24 hr 08/08/21 08/08/21 08/08/21 17:33 17:38 17:38 WBC 8.5 RBC 4.43 Hgb 12.9 Hct 37.8 MCV 85.3 MCH 29.1 MCHC 34.1 RDW Std Deviation 41.0 RDW Coeff of Junior 13.1 Plt Count 260 MPV 10.3 Immature Gran % (Auto) 0.900 Neut % (Auto) 59.0 Lymph % (Auto) 33.1 [place] % (Auto) 5.7 Eos % (Auto) 0.9 Baso % (Auto) 0.4 Absolute Neuts (auto) 5.0 Absolute Lymphs (auto) 2.81 Nucleated RBC % 0 Sodium 135 L Potassium 4.1 Chloride 102 Carbon Dioxide 25.0 Anion Gap 8 BUN 19 H Creatinine 1.42 H Estim Creat Clear Calc 27.49 Est GFR (MDRD) Af Amer 47 L Est GFR (MDRD) Non-Af 38 L BUN/Creatinine Ratio 13.4 Glucose 247 H Calcium 8.9 Total Bilirubin 0.30 AST 10 L ALT 16 Alkaline Phosphatase 131 H Total Protein 7.5 Albumin 3.3 Globulin 4.2 Albumin/Globulin Ratio 0.8 L POC Glucose 257 H Radiography Diagnostic Testing: Clinical Impression(s) from Imaging Studies Brain CT 08/08/21 17:20 IMPRESSION: 1. 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 2. Slight dilatation of the right lateral ventricle secondary to the adjacent area of encephalomalacia, but no evidence of a midline shift. 3. No evidence of ischemic or hemorrhagic cerebral infarct. 4. No intracranial neoplasms, hemorrhage or hematomas. 5. Except for the right parietal craniotomy, the osseous calvarium has a normal appearance. Mild hyperostosis frontalis interna is present, normal variant. 6. Normal paranasal sinuses. Electronically Signed: Brenden Valladares MD at 18:33 EDT , Discharge Plan Triage Chief Complaint: Seizure ED Provider: Bill Logan Dx/Rx/DC Orders Clinical Impression: New onset seizure, Uncontrolled type 2 diabetes mellitus, Morbid obesity, Chronic renal failure, stage 3a, Arterial ischemic stroke, HALLE, right, remote, resolved Instructions: ED Seizure New Onset Unknown ... Prescriptions: New levetiracetam [Keppra] 500 mg tablet 500 mg PO BID Qty: 60 RF: 0 No Action atorvastatin 80 MG tablet 80 mg PO QHS RF: 0 polyethylene glycol 3350 17 GM packet 17 gm PO DAILY RF: 0 acetaminophen 500 MG tablet 1,000 mg PO TID RF: 0 calcium carbonate 600 MG tablet 600 mg PO DAILY RF: 0 losartan 100 MG tablet 100 mg PO DAILY RF: 0 diltiazem HCl 240 MG capsule 240 mg PO DAILY RF: 0 bisacodyl 10 MG suppository 10 mg RECTAL .PRN X 1 PRN (Reason: Constipation) RF: 0 loperamide 2 MG capsule 2 mg PO Q4H PRN PRN (Reason: DIARRHEA) RF: 0 potassium chloride 20 MEQ tablet 20 meq PO DAILYCM RF: 0 magnesium hydroxide 30 ML suspension 30 ml PO .PRN X 1 PRN (Reason: Constipation) RF: 0 nortriptyline 10 MG capsule 10 mg PO QHS RF: 0 menthol-zinc oxide 1 APPLIC ointment 1 applic TOPICAL BID RF: 0 meclizine 12.5 mg Tablet 12.5 mg PO TID PRN (Reason: Vertigo) RF: 0 alprazolam 0.25 mg Tablet 0.25 mg PO QHS RF: 0 docusate sodium [Colace] 100 mg Capsule 100 mg PO DAILY RF: 0 omeprazole 20 mg Capsule,Delayed Release(Dr/Ec) 20 mg PO DAILY RF: 0 ondansetron 4 mg Tablet,Disintegrating 4 mg PO Q6H PRN (Reason: Nausea) RF: 0 insulin glargine 100 unit/mL (3 mL) Insulin Pen 20 unit SUBCUT QPM RF: 0 sertraline 150 mg Capsule 150 mg PO DAILY RF: 0 Primary Care Provider: Darvin Brice Referrals: Darvin Brice MD [Primary Care Provider] - 1-2 Weeks Disposition Disposition: Intermediate Facility
[2021-08-08] MEDS: levETIRAcetam IV 1,000 MG/100 ML BAG 400 MG IV (19:07)
[2021-08-08 20:20] VITALS: BP 160/90; PULSE 90; RESP 18; O2SAT 98
== END 2021-08-08 21:35 | disposition skilled nursing facility (03) ==
PROVIDERS: Emergency Provider Emergency Medicine; PCP Family Medicine; Visit Provider Emergency Medicine
DX: R56.9 Unspecified convulsions (principal); E11.9 Type 2 diabetes mellitus without complications; G89.29 Other chronic pain; M54.9 Dorsalgia, unspecified; E78.5 Hyperlipidemia, unspecified; H93.19 Tinnitus, unspecified ear; I10 Essential (primary) hypertension; Z86.73 Personal history of transient ischemic attack (TIA), and cerebral infarction without residual deficits
CPT/HCPCS: 70450; 80053; 82962; 85025; 96365; 99285; A4216

== ENCOUNTER → 2022-05-06 | Outpatient (REF) | payer MEDICARE, BC, SELFPAY ==
[2022-05-06 09:15] LABS: Hematocrit 35.9 % (37-47); Hemoglobin 11.5 g/dL (12.0-15.0); Mean Corpuscular Volume 90.7 fL (81-99); Mean Platelet Vol. 11.1 fl (6.2-12.0); Platelet Count 192 K/mm3 (150-450); RBC Distribution Width SD 49.1 fl (35.1-43.9); Red Blood Count 3.96 M/mm3 (4.2-5.4); White Blood Count 5.3 K/mm3 (4.4-11.0)
[2022-05-06 09:24] LABS: Anion Gap 8 (5-15); BUN 19 mg/dL (7-18); BUN/Creat Ratio 17.3 RATIO (10-20); Calcium,Total 8.8 mg/dL (8.5-10.1); Chloride 106 mmol/L (98-107); EST Glomerular Filtration Rate 52 mL/min (>60); Est Glom Filt Rate - Afr Amer 62 mL/min (>60); Glucose 152 mg/dL (74-106); Potassium 4.3 mmol/L (3.5-5.1); Sodium Level 138 mmol/L (136-145)
== END ==
LOC: OLS.WCC 05:00
PROVIDERS: PCP Family Medicine
DX: E11.9 Type 2 diabetes mellitus without complications (principal); I10 Essential (primary) hypertension; Z79.899 Other long term (current) drug therapy
CPT/HCPCS: 36415; 80048; 83036; 85027

== ENCOUNTER → 2022-08-04 | Outpatient (REF) | payer MEDICARE, BC, SELFPAY ==
[2022-08-04 06:49] LABS: Hematocrit 32.8 % (37-47); Hemoglobin 10.4 g/dL (12.0-15.0); Mean Corp Hgb Conc 31.7 g/dL (32-36); Mean Corpuscular Hgb 29.4 pg (27.0-32.0); Mean Corpuscular Volume 92.7 fL (81-99); Mean Platelet Vol. 10.6 fl (6.2-12.0); Platelet Count 213 K/mm3 (150-450); RBC Distribution Width CV 13.8 % (11.6-14.6); RBC Distribution Width SD 46.9 fl (35.1-43.9); Red Blood Count 3.54 M/mm3 (4.2-5.4); White Blood Count 7.2 K/mm3 (4.4-11.0)
[2022-08-04 07:02] LABS: Anion Gap 6 (5-15); BUN 16 mg/dL (7-18); BUN/Creat Ratio 15.5 RATIO (10-20); Calcium,Total 8.3 mg/dL (8.5-10.1); Chloride 109 mmol/L (98-107); Creatinine, Serum 1.03 mg/dL (0.55-1.02); EST Glomerular Filtration Rate 56 mL/min (>60); Est Glom Filt Rate - Afr Amer 67 mL/min (>60); Glucose 118 mg/dL (74-106); Potassium 3.6 mmol/L (3.5-5.1); Sodium Level 141 mmol/L (136-145)
[2022-08-04 08:37] LABS: Hemoglobin A1c 6.7 % (3.8-5.6)
== END ==
LOC: OLS.WCC 05:00
PROVIDERS: PCP Family Medicine; Visit Provider Family Medicine
DX: E11.9 Type 2 diabetes mellitus without complications (principal); I10 Essential (primary) hypertension; Z79.899 Other long term (current) drug therapy
CPT/HCPCS: 36415; 80048; 83036; 85027

== ENCOUNTER → 2022-11-07 | Outpatient (REF) | payer MEDICARE, BC, SELFPAY ==
[2022-11-07 07:57] LABS: Hematocrit 33.3 % (37-47); Hemoglobin 10.7 g/dL (12.0-15.0); Mean Corp Hgb Conc 32.1 g/dL (32-36); Mean Corpuscular Hgb 29.8 pg (27.0-32.0); Mean Corpuscular Volume 92.8 fL (81-99); Mean Platelet Vol. 10.6 fl (6.2-12.0); Platelet Count 215 K/mm3 (150-450); RBC Distribution Width CV 13.2 % (11.6-14.6); RBC Distribution Width SD 45.1 fl (35.1-43.9); Red Blood Count 3.59 M/mm3 (4.2-5.4); White Blood Count 6.2 K/mm3 (4.4-11.0)
[2022-11-07 08:28] LABS: Anion Gap 3 (5-15); BUN 10 mg/dL (7-18); BUN/Creat Ratio 8.7 RATIO (10-20); Calcium,Total 8.4 mg/dL (8.5-10.1); Chloride 110 mmol/L (98-107); Creatinine, Serum 1.15 mg/dL (0.55-1.02); EST Glomerular Filtration Rate 49 mL/min (>60); Est Glom Filt Rate - Afr Amer 59 mL/min (>60); Glucose 63 mg/dL (74-106); Potassium 3.7 mmol/L (3.5-5.1); Sodium Level 141 mmol/L (136-145)
[2022-11-07 11:08] LABS: Hemoglobin A1c 8.2 % (3.8-5.6)
== END ==
LOC: OLS.WCC 05:00
PROVIDERS: PCP Family Medicine; Visit Provider Family Medicine
DX: E11.9 Type 2 diabetes mellitus without complications (principal); I10 Essential (primary) hypertension; Z79.899 Other long term (current) drug therapy
CPT/HCPCS: 36415; 80048; 83036; 85027

== ENCOUNTER → 2023-01-07 | Outpatient (REF) | payer MEDICARE, BC, SELFPAY ==
[2023-01-07 12:16] LABS: Mucous, Urine 0 SEEN /hpf (<or=2+); Squamous Epithelial Cells - UA 0 SEEN /hpf (5-10)
[2023-01-07 12:33] LABS: Absolute Lymphocyte Count 0.85 X10^3/uL (0.83-4.51); Absolute Neutrophil Count 10.2 X10^3/uL (2.0-7.7); Basophil# 0.04 X10^3/uL; Basophil% 0.3 % (0-1); Eosinophil# 0.01 X10^3/uL; Eosinophils% 0.1 % (0-5); Hematocrit 38.9 % (37-47); Hemoglobin 12.4 g/dL (12.0-15.0); Lymphocyte # 0.85 X10^3/ul (0.83-4.51); Lymphocyte % 7.1 % (19-41); Mean Corp Hgb Conc 31.9 g/dL (32-36); Mean Corpuscular Hgb 28.6 pg (27.0-32.0); Mean Corpuscular Volume 89.8 fL (81-99); Mean Platelet Vol. 11.7 fl (6.2-12.0); Monocyte# 0.79 X10^3/uL; Monocyte% 6.6 % (0-10); NRBC Flagged by Analyzer 0 % (0-5); Neutrophil # 10.15 X10^3/uL (2.7-7.7); Neutrophil % 85.2 % (47-70); Platelet Count 228 K/mm3 (150-450); RBC Distribution Width CV 13.5 % (11.6-14.6); RBC Distribution Width SD 44.4 fl (35.1-43.9); Red Blood Count 4.33 M/mm3 (4.2-5.4); White Blood Count 11.9 K/mm3 (4.4-11.0)
[2023-01-07 12:33] LABS: Color, Urine Yellow (Yellow); Glucose, Dipstick 100 mg/dl (Normal); Ketone-Dipstick Negative (Negative); Leukocyte Esterase-Dipstick 500 /ul (Negative); Nitrite-Dipstick Positive (Negative); Occult Blood-Urine 250 /ul (Negative); Protein-Dipstick 500 mg/dl (Negative); Specific Gravity, Urine 1.015 (1.002-1.030); Urine Bilirubin Dipstick Negative (Negative); Urine Clarity Cloudy (Clear); Urine Urobilinogen Normal (Normal)
[2023-01-07 12:37] LABS: Anion Gap 6 (5-15); BUN 30 mg/dL (7-18); BUN/Creat Ratio 20.5 RATIO (10-20); Chloride 105 mmol/L (98-107); Creatinine, Serum 1.46 mg/dL (0.55-1.02); EST Glomerular Filtration Rate 37 mL/min (>60); Est Glom Filt Rate - Afr Amer 45 mL/min (>60); Glucose 293 mg/dL (74-106); Potassium 3.4 mmol/L (3.5-5.1); Sodium Level 138 mmol/L (136-145)
[2023-01-07 13:09] LABS: Bacteria 4+ /hpf (None Seen); Red Blood Cells-Urine 25-50 SEEN /hpf (0-5); White Blood Cells 50-100 SEEN /hpf (0-5)
== END ==
LOC: OLS.WCC 11:50
PROVIDERS: PCP Family Medicine; Visit Provider Family Medicine
DX: N39.0 Urinary tract infection, site not specified (principal); D64.9 Anemia, unspecified; I10 Essential (primary) hypertension
CPT/HCPCS: 36415; 80048; 81001; 85025; 87086; 87088; 87186

== ENCOUNTER → 2023-01-16 | Outpatient (REF) | payer MEDICARE, BC, SELFPAY | LOC: OLS.WCC 06:20 | PROVIDERS: PCP Family Medicine; Visit Provider Family Medicine | DX: N39.0 Urinary tract infection, site not specified (principal); Z79.899 Other long term (current) drug therapy | CPT/HCPCS: 87086 ==

== ENCOUNTER → 2023-02-05 | Outpatient (REF) | payer MEDICARE, BC, MEDICAID, SELFPAY ==
[2023-02-05 07:40] LABS: Hematocrit 32.9 % (37-47); Hemoglobin 10.3 g/dL (12.0-15.0); Mean Corp Hgb Conc 31.3 g/dL (32-36); Mean Corpuscular Hgb 28.4 pg (27.0-32.0); Mean Corpuscular Volume 90.6 fL (81-99); Mean Platelet Vol. 10.7 fl (6.2-12.0); Platelet Count 208 K/mm3 (150-450); RBC Distribution Width CV 14.4 % (11.6-14.6); RBC Distribution Width SD 47.4 fl (35.1-43.9); Red Blood Count 3.63 M/mm3 (4.2-5.4); White Blood Count 5.9 K/mm3 (4.4-11.0)
[2023-02-05 07:53] LABS: Anion Gap 3 (5-15); BUN 10 mg/dL (7-18); BUN/Creat Ratio 8.1 RATIO (10-20); Chloride 109 mmol/L (98-107); Creatinine, Serum 1.24 mg/dL (0.55-1.02); EST Glomerular Filtration Rate 45 mL/min (>60); Est Glom Filt Rate - Afr Amer 54 mL/min (>60); Glucose 104 mg/dL (74-106); Potassium 3.6 mmol/L (3.5-5.1); Sodium Level 141 mmol/L (136-145)
[2023-02-05 09:54] LABS: Hemoglobin A1c 7.4 % (3.8-5.6)
== END ==
LOC: OLS.WCC 05:00
PROVIDERS: PCP Family Medicine; Visit Provider Family Medicine
DX: D64.9 Anemia, unspecified (principal); E55.9 Vitamin D deficiency, unspecified; E11.40 Type 2 diabetes mellitus with diabetic neuropathy, unspecified; I10 Essential (primary) hypertension; E78.5 Hyperlipidemia, unspecified
CPT/HCPCS: 36415; 80048; 83036; 85027

== ENCOUNTER → 2023-05-06 | Outpatient (REF) | payer MEDICARE, BC, MEDICAID, SELFPAY ==
[2023-05-06 08:17] LABS: Hematocrit 37.6 % (37-47); Hemoglobin 12.3 g/dL (12.0-15.0); Mean Corp Hgb Conc 32.7 g/dL (32-36); Mean Corpuscular Volume 91.7 fL (81-99); Mean Platelet Vol. 11.2 fl (6.2-12.0); Platelet Count 210 K/mm3 (150-450); RBC Distribution Width CV 14.9 % (11.6-14.6); RBC Distribution Width SD 49.7 fl (35.1-43.9)
[2023-05-06 11:23] LABS: Anion Gap 4 (5-15); BUN 11 mg/dL (7-18); BUN/Creat Ratio 9.3 RATIO (10-20); Calcium,Total 8.9 mg/dL (8.5-10.1); Chloride 108 mmol/L (98-107); Creatinine, Serum 1.18 mg/dL (0.55-1.02); EST Glomerular Filtration Rate 47 mL/min (>60); Est Glom Filt Rate - Afr Amer 57 mL/min (>60); Glucose 138 mg/dL (74-106); Potassium 3.7 mmol/L (3.5-5.1); Sodium Level 140 mmol/L (136-145)
[2023-05-06 15:29] LABS: Hemoglobin A1c 5.5 % (3.8-5.6)
== END ==
LOC: OLS.WCC 05:00
PROVIDERS: PCP Family Medicine; Visit Provider Family Medicine
DX: E11.9 Type 2 diabetes mellitus without complications (principal); I10 Essential (primary) hypertension; Z79.899 Other long term (current) drug therapy
CPT/HCPCS: 36415; 80048; 83036; 85027

== ENCOUNTER → 2023-08-06 | Outpatient (REF) | payer MEDICARE, BC, MEDICAID, SELFPAY ==
[2023-08-06 09:11] LABS: Hematocrit 32.3 % (37-47); Hemoglobin 10.4 g/dL (12.0-15.0); Mean Corp Hgb Conc 32.2 g/dL (32-36); Mean Corpuscular Hgb 30.7 pg (27.0-32.0); Mean Corpuscular Volume 95.3 fL (81-99); Mean Platelet Vol. 11.5 fl (6.2-12.0); Platelet Count 233 K/mm3 (150-450); RBC Distribution Width CV 13.8 % (11.6-14.6); RBC Distribution Width SD 47.6 fl (35.1-43.9); Red Blood Count 3.39 M/mm3 (4.2-5.4); White Blood Count 7.7 K/mm3 (4.4-11.0)
[2023-08-06 09:30] LABS: Anion Gap 1 (5-15); BUN 23 mg/dL (7-18); BUN/Creat Ratio 16.1 RATIO (10-20); Calcium,Total 8.3 mg/dL (8.5-10.1); Chloride 111 mmol/L (98-107); Creatinine, Serum 1.43 mg/dL (0.55-1.02); EST Glomerular Filtration Rate 38 mL/min (>60); Est Glom Filt Rate - Afr Amer 46 mL/min (>60); Glucose 127 mg/dL (74-106); Sodium Level 140 mmol/L (136-145)
[2023-08-06 12:35] LABS: Hemoglobin A1c 7.6 % (3.8-5.6)
== END ==
LOC: OLS.WCC 05:00
PROVIDERS: PCP Family Medicine; Visit Provider Family Medicine
DX: E11.9 Type 2 diabetes mellitus without complications (principal); I10 Essential (primary) hypertension; Z79.899 Other long term (current) drug therapy
CPT/HCPCS: 36415; 80048; 83036; 85027

== ENCOUNTER → 2023-11-03 | Outpatient (REF) | payer MEDICARE, BC, MEDICAID, SELFPAY ==
[2023-11-03 08:53] LABS: Hemoglobin 12.1 g/dL (12.0-15.0); Mean Corp Hgb Conc 32.7 g/dL (32-36); Mean Corpuscular Hgb 29.6 pg (27.0-32.0); Mean Corpuscular Volume 90.5 fL (81-99); Mean Platelet Vol. 10.7 fl (6.2-12.0); Platelet Count 279 K/mm3 (150-450); RBC Distribution Width SD 39.7 fl (35.1-43.9); Red Blood Count 4.09 M/mm3 (4.2-5.4); White Blood Count 6.4 K/mm3 (4.4-11.0)
[2023-11-03 09:08] LABS: Hemoglobin A1c 8.4 % (3.8-5.6)
[2023-11-03 09:12] LABS: Anion Gap 4 (5-15); BUN 16 mg/dL (7-18); BUN/Creat Ratio 12.4 RATIO (10-20); Calcium,Total 8.8 mg/dL (8.5-10.1); Chloride 105 mmol/L (98-107); Creatinine, Serum 1.29 mg/dL (0.55-1.02); EST Glomerular Filtration Rate 43 mL/min (>60); Est Glom Filt Rate - Afr Amer 52 mL/min (>60); Glucose 162 mg/dL (74-106); Potassium 4.1 mmol/L (3.5-5.1); Sodium Level 137 mmol/L (136-145)
== END ==
LOC: OLS.WCC 08:00
PROVIDERS: PCP Family Medicine; Visit Provider Family Medicine
DX: I10 Essential (primary) hypertension (principal); E11.9 Type 2 diabetes mellitus without complications; Z79.899 Other long term (current) drug therapy
CPT/HCPCS: 36415; 80048; 83036; 85027

== ENCOUNTER → 2024-02-04 05:00 | Outpatient (REF) | payer MEDICARE, BC, MEDICAID, SELFPAY ==
[2024-02-04 07:21] LABS: Hematocrit 32.7 % (37-47); Hemoglobin 10.9 g/dL (12.0-15.0); Mean Corp Hgb Conc 33.3 g/dL (32-36); Mean Corpuscular Hgb 31.3 pg (27.0-32.0); Mean Platelet Vol. 10.4 fl (6.2-12.0); Platelet Count 219 K/mm3 (150-450); RBC Distribution Width CV 13.5 % (11.6-14.6); RBC Distribution Width SD 45.8 fl (35.1-43.9); Red Blood Count 3.48 M/mm3 (4.2-5.4); White Blood Count 6.8 K/mm3 (4.4-11.0)
[2024-02-04 07:34] LABS: Anion Gap 4 (5-15); BUN 24 mg/dL (7-18); BUN/Creat Ratio 15.9 RATIO (10-20); Calcium,Total 8.5 mg/dL (8.5-10.1); Chloride 110 mmol/L (98-107); Creatinine, Serum 1.51 mg/dL (0.55-1.02); EST Glomerular Filtration Rate 36 mL/min (>60); Est Glom Filt Rate - Afr Amer 43 mL/min (>60); Glucose 75 mg/dL (74-106); Potassium 4.2 mmol/L (3.5-5.1); Sodium Level 141 mmol/L (136-145)
[2024-02-04 08:25] LABS: Hemoglobin A1c 9.1 % (3.8-5.6)
== END ==
LOC: OLS.WCC 05:00
PROVIDERS: PCP Family Medicine; Visit Provider Family Medicine
DX: I10 Essential (primary) hypertension (principal); E11.9 Type 2 diabetes mellitus without complications; Z79.899 Other long term (current) drug therapy
CPT/HCPCS: 36415; 80048; 83036; 85027

== ENCOUNTER → 2024-08-05 | Outpatient (REF) | payer MEDICARE, BC, MEDICAID, SELFPAY ==
[2024-08-05 08:25] LABS: Anion Gap 12 (5-15); BUN 9 mg/dL (4-19); BUN/Creat Ratio 7.8 RATIO (10-20); Calcium,Total 8.5 mg/dL (7.6-11.0); Carbon Dioxide 20.3 mmol/L (21.0-32.0); Chloride 104 mmol/L (98-108); EST Glomerular Filtration Rate 47 (>60); Glucose 99 mg/dL (70-99); Potassium 3.9 mmol/L (3.3-5.1); Sodium Level 136 mmol/L (133-145)
== END ==
LOC: OLS.WCC 05:00
PROVIDERS: PCP Family Medicine; Visit Provider Family Medicine
DX: E11.9 Type 2 diabetes mellitus without complications (principal); I10 Essential (primary) hypertension; Z79.899 Other long term (current) drug therapy
CPT/HCPCS: 36415; 80048

== ENCOUNTER → 2024-11-04 05:00 | Outpatient (REF) | payer MEDICARE, BC, MEDICAID, SELFPAY ==
--- OUTSIDE RECORDS SUMMARY | 2024-11-04 04:32 | XMS RPT_ITS | CCD ---
Author Organization [facility] Care Team Providers Care Generator Rebuilder Name Role Phone BRENDAN SAMANTHA Unavailable Unavailable JEAN-PAUL MORALES Unavailable Unavailable CRISTOPHER MUNOZ Unavailable UnavailRALPH Nath JR Unavailable Unavailable Lorena Griffin MD Unavailable Dr. Darvin Brice MD Primary Care Provider Jean-Paul Rothman MD Attending Provider Unavailable Darvin Brice Primary Care Unavailable Jean-Paul Anna Attending Unavailable Jean-Paul Anna Attending Unavailable Darvin Brice Primary Care Unavailable Jean-Paul Anna Attending Unavailable Darvin Brice Primary Care Unavailable Jean-Paul Anna Attending Unavailable Darvin Brice Primary Care Unavailable Allergies Allergy Classification Reported Allergen(s) Allergy Type Date of Onset Reaction(s) Facility (9 sources) meloxicam; Translations: [MELOXICAM] Drug Allergy 6 AOF, PT UNSURE OF REACTION [facility] Repository (9 sources) predniSONE; Translations: [PREDNISONE] Drug Allergy 1 AOF, PT UNSURE OF REACTION [facility] Repository (1 source) rosuvastatin; Translations: [ROSUVASTATIN CALCIUM] Drug Allergy 1 AOF [facility] Repository (8 sources) Angiotensin Converting Enzyme (Sofia) Inhibitors; Translations: [SOFIA Inhibitors] Propensity to adverse reactions 1 NEEDS FOLLOW-UP [facility] (7 sources) busPIRone Drug Allergy 1 PT UNSURE OF REACTION [facility] (7 sources) Escitalopram Drug Allergy 1 PT UNSURE OF REACTION [facility] (7 sources) glimepiride Drug Allergy 1 PT UNSURE OF REACTION [facility] (7 sources) glipiZIDE Drug Allergy 1 PT UNSURE OF REACTION [facility] (7 sources) metFORMIN Drug Allergy 1 PT UNSURE OF REACTION [facility] (7 sources) pioglitazone Drug Allergy 1 PT UNSURE OF REACTION [facility] (7 sources) QUEtiapine Drug Allergy 1 PT UNSURE OF REACTION [facility] (7 sources) rosuvastatin Drug Allergy 1 PT UNSURE OF REACTION [facility] (8 sources) NSAIDS (Non-Steroidal Anti-Inflamma; Translations: [NSAIDS (Non-Steroidal Anti-Inflamma] Propensity to adverse reactions 1 PT UNSURE OF REACTION [facility] (1 source) busPIRone Drug Allergy 1 [facility] Repository (1 source) Escitalopram Drug Allergy 1 [facility] Repository (1 source) glimepiride Drug Allergy 1 [facility] Repository (1 source) glipiZIDE Drug Allergy 1 [facility] Repository (1 source) metFORMIN Drug Allergy 1 [facility] Repository (1 source) pioglitazone Drug Allergy 1 [facility] Repository (1 source) QUEtiapine Drug Allergy 1 [facility] Repository (1 source) rosuvastatin Drug Allergy 1 [facility] Repository Medications Current Medications Medication Drug Class(es) Dates Sig (Normalized) Sig (Original) acetaminophen 500 mg oral tablet (7 sources) Start: 03-22-2020 take 2 tablets by mouth three times daily Acetaminophen 500 MG tablet Active 1000 mg PO THREE TIMES A DAY March 22, 2020 1:00am Start: 03-22-2020 take 1000 mg by mout h three times daily Acetaminophen Active 1000 MG PO THREE TIMES A DAY March 22, 2020 12:00am ALPRAZolam 0.25 mg oral tablet (20 sources) Benzodiazepine Start: 08-08-2021 take 1 tablet by mouth at bedtime Alprazolam 0.25 mg Tablet Active 0.25 mg PO AT BEDTIME August 08, 2021 12:00am Start: 04-05-2020 End: 04-12-2020 take 1 tablet by mouth once daily Alprazolam 0.25 MG tablet Discontinued 0.25 mg PO DAILY 10 31April 05, 2020 1:00am April 11, 2020 1:00am April 12, 2020 1:02am DC after 7 days. She has been weaned down slowly over the past 2 weeks Start: 03-22-2020 End: 04-05-2020 take 1 tablet by mouth twice daily as needed for anxiety Alprazolam 0.25 MG tablet Discontinued 0.25 mg PO TWICE DAILY NEEDED as needed for Anxiety March 22, 2020 1:00am April 05, 2020 11:47am Start: 09-17-2018 ALPRAZOLAM 0.5 MG TABS Take one tablet three times daily ALPRAZOLAM [id number] Marianna Parker atorvastatin 80 mg oral tablet (7 sources) HMG-CoA Reductase Inhibitor Start: 03-22-2020 take 1 tablet by mouth at bedtime Atorvastatin 80 MG tablet Active 80 mg PO AT BEDTIME March 22, 2020 1:00am bisacodyl 10 mg rectal suppository (7 sources) Stimulant Laxative Start: 04-05-2020 Bisacodyl 10 MG suppository Active 10 mg RECTAL .PRN X 1 as needed for Constipation April 05, 2020 1:00am Start: 04-05-2020 Bisacodyl Acti ve 10 MG RECTAL .PRN X 1 April 05, 2020 12:00am calcium carbonate 1500 mg oral tablet (7 sources) Start: 03-22-2020 take 1 tablet by mouth once daily Calcium Carbonate 600 MG tablet Active 600 mg PO DAILY March 22, 2020 1:00am 24 hr dilTIAZem hydrochloride 240 mg extended release oral capsule (14 sources) Calcium Channel Delfino Start: 04-05-2020 take 1 capsule by mouth once daily Diltiazem Hcl 240 MG capsule Active 240 mg PO DAILY April 05, 2020 1:00am Start: 03-22-2020 End: 04-05-2020 take 1 capsule by mouth once daily Diltiazem Hcl 180 MG capsule Discontinued 180 mg PO DAILY March 22, 2020 1:00am April 05, 2020 11:36am docusate sodium 100 mg oral capsule (7 sources) Start: 08-08-2021 take 1 capsule by mouth once daily Docusate Sodium (Colace) 100 mg Capsule Active 100 mg PO DAILY August 08, 2021 12:00am 3 ml insulin glargine 100 unt/ml pen injector (7 sources) Insulin Analog Start: 08-08-2021 Insulin Glargine 100 unit/mL (3 mL) Insulin Pen Active 20 U SC EVERY EVENING August 08, 2021 12:00am levETIRAcetam 500 mg oral tablet (7 sources) Start: 08-08-2021 take 1 tablet by mouth twice daily Levetiracetam (Keppra) 500 mg tablet Active 500 mg PO TWICE A DAY 60 August 08, 2021 12:00am loperamide hydrochloride 2 mg oral capsule (7 sources) Opioid Agonist Start: 04-05-2020 take 1 capsule by mouth every four hours as needed for diarrhea Loperamide 2 MG capsule Active 2 mg PO EVERY 4 HOURS NEEDED as needed for DIARRHEA April 05, 2020 1:00am losartan potassium 100 mg oral tablet (7 sources) Angiotensin 2 Receptor Delfino Start: 03-22-2020 take 1 tablet by mouth once daily Losartan 100 MG tablet Active 100 mg PO DAILY March 22, 2020 1:00am magnesium hydroxide 80 mg/ml oral suspension (7 sources) Start: 04-05-2020 Magnesium Hydroxide 30 ML suspension Active 30 mL PO .PRN X 1 as needed for Constipation April 05, 2020 1:00am Start: 04-05-2020 Magnesium Hydr oxide Active 30 ML PO .PRN X 1 April 05, 2020 12:00am meclizine hydrochloride 12.5 mg oral tablet (7 sources) Antiemetic Start: 08-08-2021 take 1 tablet by mouth three times daily as needed Meclizine 12.5 mg Tablet Active 12.5 mg PO THREE TIMES A DAY as needed for Vertigo August 08, 2021 12:00am Menthol / Zinc Oxide (6 sources) Start: 04-05-2020 Menthol-Zinc O xide Active 1 APPLIC TOPICAL TWICE A DAY April 05, 2020 11:42am Start: 04-05-2020 Menthol-Zinc O xide Active 1 APPLIC TOPICAL TWICE A DAY April 05, 2020 12:00am Start: 04-05-2020 Menthol-Zinc O xide Active 1 APPLIC TOPICAL TWICE A DAY April 05, 2020 1:00am Menthol-Zinc Oxide 1 APPLIC ointment (1 source) Start: 04-05-2020 Menthol-Zinc Oxide 1 APPLIC ointment Active 1 NMA TOPICAL TWICE A DAY April 05, 2020 1:00am Please contact the information source for Protocol details. nortriptyline 10 mg oral capsule (7 sources) Tricyclic Antidepressant Start: 04-05-2020 take 1 capsule by mouth at bedtime Nortriptyline 10 MG capsule Active 10 mg PO AT BEDTIME April 05, 2020 1:00am omeprazole 20 mg delayed release oral capsule (7 sources) Proton Pump Inhibitor Start: 08-08-2021 take 1 capsule by mouth once daily Omeprazole 20 mg Capsule,Delayed Release(Dr/Ec) Active 20 mg PO DAILY August 08, 2021 12:00am ondansetron 4 mg disintegrating oral tablet (7 sources) Serotonin-3 Receptor Antagonist Start: 08-08-2021 take 1 tablet by mouth every six hours as needed for nausea Ondansetron 4 mg Tablet,Disintegrat ing Active 4 mg PO EVERY 6 HOURS as needed for Nausea August 08, 2021 12:00am polyethylene glycol 3350 22572 mg powder for oral solution (8 sources) Osmotic Laxative Start: 03-22-2020 take 17 g by mouth once daily Polyethylene Glycol 3350 17 GM packet Active 17 g PO DAILY March 22, 2020 1:00am Start: 09-17-2018 MIRALAX POWD T daya as directed as needed POLYETHYLENE GLYCOL 3350 [id number] Marianna Parker microencapsulated potassium chloride 20 meq extended release oral tablet (7 sources) Start: 04-05-2020 take 1 tablet by mouth once daily at mealtime Potassium Chloride 20 MEQ tablet Active 20 meq PO DAILY WITH MEALS April 05, 2020 1:00am sertraline 150 mg oral tablet (7 sources) Serotonin Reuptake Inhibitor Start: 08-08-2021 take 1 capsule by mouth once daily Sertraline 150 mg Capsule Active 150 mg PO DAILY August 08, 2021 12:00am Completed/Discontinued Medications Medication Drug Class(es) Dates Sig (Normalized) Sig (Original) acetaminophen 325 mg / oxyCODONE hydrochloride 5 mg oral tablet (1 source) Opioid Agonist Start: 09-17-2018 OXYCODONE-ACETAMIN OPHEN 5-325 MG TABS 1 tablet twice daily OXYCODONE-ACETAMIN OPHEN [id number] Marianna Parker amLODIPine 10 mg oral tablet (1 source) Dihydropyridine Calcium Channel Delfino Start: 09-17-2018 NORVASC 10 MG TABS Take one tablet once daily AMLODIPINE BESYLATE [id number] Marianna Charlotte aspirin 81 mg delayed release oral tablet (1 source) Platelet Aggregation Inhibitor, Nonsteroidal Anti-inflammatory Drug Start: 09-17-2018 ASPIRIN ADULT LOW STRENGTH TBEC Take one tablet once daily ASPIRIN TBEC [id number] Marianna Keith Calcium (1 source) Phosphate Binder, Calcium Start: 09-17-2018 CALCIUM 600 MG TABS Take one tablet three times daily CALCIUM [id number] Marianna Parker 0.4 ml enoxaparin sodium 100 mg/ml prefilled syringe (7 sources) Low Molecular Weight Heparin Start: 03-22-2020 End: 04-05-2020 inject 40 mg by subcutaneous injection once daily Enoxaparin 40 MG/0.4 ML syringe Discontinued 40 mg SQ DAILY@0600 March 22, 2020 1:00am April 05, 2020 11:48am melatonin 10 mg sublingual tablet (7 sources) Start: 03-22-2020 End: 04-05-2020 take 1 tablet by mouth once daily Melatonin 10 MG tablet Discontinued 10 mg PO DAILY@2200 March 22, 2020 1:00am April 05, 2020 11:47am nitroglycerin 0.4 mg sublingual tablet (1 source) Nitrate Vasodilator Start: 09-17-2018 NITROSTAT 0.4 MG SUBL As needed as directed for chest pain NITROGLYCERIN [id number] Marianna Byers oxyCODONE hydrochloride 5 mg oral tablet (7 sources) Opioid Agonist Start: 03-22-2020 End: 04-05-2020 take 1-10 tablets by mouth every eight hours as needed for pain Oxycodone 5 MG tablet Discontinued 5 mg PO EVERY 8 HOURS NEEDED as needed for Pain 1-10 Or Fever March 22, 2020 1:00am April 05, 2020 11:45am ramipril 10 mg oral capsule (1 source) Angiotensin Converting Enzyme Inhibitor Start: 09-17-2018 ALTACE 10 MG CAPS Take 2 capsules once a day RAMIPRIL [id number] Marianna Parker SITagliptin 100 mg oral tablet (8 sources) Dipeptidyl Peptidase 4 Inhibitor Start: 03-22-2020 End: 04-05-2020 take 1 tablet by mouth once daily Sitagliptin Phosphate 100 MG tablet Discontinued 100 mg PO DAILY March 22, 2020 1:00am April 05, 2020 11:47am Start: 09-17-2018 JANUVIA 100 MG TABS Take one tablet once daily SITAGLIPTIN PHOSPHATE [id number] Marianna Parker zolpidem tartrate 10 mg oral tablet (1 source) gamma-Aminobutyric Acid-ergic Agonist Start: 09-17-2018 AMBIEN 10 MG TABS Take one tablet once daily at bedtime ZOLPIDEM TARTRATE [id number] Marianna Parker Problems Active Problems Problem Classification Problem Date Documented Da te Episodic/Chronic Acute and unspecified renal failure (1 source) Acute kidney failure, unspecified; Translations: [Acute kidney failure, unspecified] Onset: 09-07-2017 Episodic Acute cerebrovascular disease (7 sources) Ischemic stroke; Translations: [Cerebral infarction, unspecified] 03-23-2020 Chronic Comment on above: Right MCA distributi on involving right caudate, insular and frontal areas Anxiety disorders (8 sources) Generalized anxiety disorder; Translations: [Mixed anxiety and depressive disorder] Onset: 09-07-2017 03-23-2020 Chronic Cardiac dysrhythmias (7 sources) Ectopic beats; Translations: [Other premature depolarization] 03-23-2020 Chronic Comment on above: Nonconducted Chronic kidney disease (8 sources) Chronic kidney disease, unspecified; Translations: [Chronic kidney disease stage 3A ] Onset: 09-07-2017 08-08-2021 Chronic Comment on above: GFR has been greater than 60 since she was hydrated while in rehab Deficiency and other anemia (7 sources) Normocytic normochromic anemia; Translations: [Anemia, unspecified] 03-23-2020 Episodic Diabetes mellitus with complications (20 sources) Neuropathy due to diabetes mellitus; Translations: [Type 2 diabetes mellitus with diabetic neuropathy, unspecified] 03-23-2020 Chronic Diabetes mellitus with complications (2 sources) Type 2 diabetes mellitus with diabetic neuropathy, unspecified; Translations: [Diabetic - poor control] Onset: 06-04-2016 09-29-2018 Diabetes mellitus without complication (2 sources) Type 2 diabetes mellitus without complications; Translations: [Type 2 diabetes mellitus without complications] Onset: 05-14-2024 Chronic Disorders of lipid metabolism (7 sources) Hyperlipidemia; Translations: [Hyperlipidemia, unspecified] 03-23-2020 Chronic Epilepsy; convulsions (7 sources) Seizure; Translations: [Unspecified convulsions] 08-16-2021 Episodic Essential hypertension (10 sources) Essential (primary) hypertension; Translations: [Hypertensive disorder] Onset: 09-07-2017 03-23-2020 Chronic Fluid and electrolyte disorders (14 sources) Hypokalemia; Translations: [Hypokalemia] 04-05-2020 Episodic Fracture of lower limb (7 sources) Trimalleolar fracture; Translations: [Displaced trimalleolar fracture of left lower leg, initial encounter for closed fracture] 03-23-2020 Episodic Genitourinary symptoms and ill-defined conditions (7 sources) Incontinence; Translations: [Unspecified urinary incontinence] 03-23-2020 Chronic Headache, including migraine (1 source) Migraine without aura, not intractable, without status migrainosus; Translations: [Migraine without aura, not intractable, without status migrainosus] Onset: 04-08-2017 Chronic Malaise and fatigue (7 sources) Asthenia; Translations: [Other malaise] 03-23-2020 Episodic Comment on above: Due to recent right MCA ischemic CVA causing a fall and resulting in a left trimalleolar ankle fracture. Other aftercare (7 sources) Long-term current use of benzodiazepine; Translations: [Other long-term (current) drug therapy] 03-23-2020 Episodic Other aftercare (2 sources) Other long-term (current) drug therapy; Translations: [Other terminal clerk (current) drug therapy] Onset: 05-14-2024 Episodic Other and ill-defined heart disease (7 sources) Left ventricular hypertrophy; Translations: [Cardiomegaly] 03-23-2020 Chronic Comment on above: Mild Other and unspecified benign neoplasm (7 sources) History of polyp of colon; Translations: [Personal history of colonic polyps] 03-23-2020 Episodic Other circulatory disease (7 sources) History of cerebrovascular accident; Translations: [Personal history of transient ischemic attack (TIA), and cerebral infarction without residual deficits] 08-16-2021 Episodic Other connective tissue disease (7 sources) Rhabdomyolysis; Translations: [Rhabdomyolysis] 03-23-2020 Episodic Other connective tissue disease (7 sources) History of osteoporosis; Translations: [Personal history of other diseases of the musculoskeletal system and connective tissue] 03-23-2020 Episodic Other endocrine disorders (7 sources) Hypoglycemia; Translations: [Hypoglycemia, unspecified] 04-05-2020 Chronic Other gastrointestinal disorders (7 sources) Irritable bowel syndrome; Translations: [Irritable bowel syndrome without diarrhea] 03-23-2020 Chronic Other gastrointestinal disorders (7 sources) Dysphagia; Translations: [Dysphagia, unspecified] 03-23-2020 Episodic Other nutritional; endocrine; and metabolic disorders (1 source) Morbid (severe) obesity due to excess calories; Translations: [Morbid (severe) obesity due to excess calories] Onset: 09-05-2017 Chronic Other nutritional; endocrine; and metabolic disorders (1 source) Body mass index 40+ - severely obese; Translations: [Body mass index (BMI) 40.0-44.9, adult] Onset: 09-29-2018 09-29-2018 Chronic Other nutritional; endocrine; and metabolic disorders (7 sources) Morbid obesity; Translations: [Morbid (severe) obesity due to excess calories] 08-08-2021 Chronic Other nutritional; endocrine; and metabolic disorders (7 sources) History of nutritional deficiency; Translations: [Personal history of other endocrine, nutritional and metabolic disease] 03-23-2020 Episodic Residual codes; unclassified (7 sources) Obstructive sleep apnea syndrome; Translations: [Obstructive sleep apnea (adult) (pediatric)] 04-05-2020 Chronic Comment on above: not treatment - pt s tates she could not tolerate the mask Residual codes; unclassified (7 sources) Family history of cancer of colon; Translations: [Family history of malignant neoplasm of digestive organs] 03-23-2020 Episodic Residual codes; unclassified (1 source) H/O: fracture; Translations: [Other specified postprocedural states] Episodic Residual codes; unclassified (6 sources) History of ankle surgery; Translations: [Other specified postprocedural states] 03-23-2020 Episodic Comment on above: Closed trimalleolar left ankle fracture sustained in a fall Spondylosis; intervertebral disc disorders; other back problems (2 sources) Chronic low back pain; Translations: [Other chronic pain] Onset: 09-29-2018 09-29-2018 Episodic Syncope (7 sources) Syncope; Translations: [Syncope and collapse] 08-29-2020 Episodic Transient cerebral ischemia (1 source) Transient cerebral ischemic attack, unspecified; Translations: [Transient cerebral ischemic attack, unspecified] Onset: 09-05-2017 Chronic Viral infection (14 sources) Disease caused by 2019-nCoV; Translations: [COVID-19] 04-05-2020 Episodic Comment on above: She had COVID prior to being transferred to [facility] acute rehab and was negative prior to transfer. in February 2020 Past or Other Problems Problem Classification Problem Date Documented Da te Episodic/Chronic Unclassified (1 source) Problem Results Test Name Value Interpretation Reference Range Facility Anion gap in Serum or Plasma Ordered By: Jean-Paul Rothman on 08-05-2024 Anion gap [Moles/Vol] 12 mmol/L 5-15 [facility] BUN/creatinine ratioOrdered By: Jean-Paul Rothman on 08-05-2024 Urea nitrogen/Creatinine [Mass ratio] 7.8 mg/mg Low 10- [facility] Basic Metabolic Profile (BMP )on 08-05-2024 BUN/CRE 7.8 RATIO Low - [facility] Comment on above: Order Comment: 122.2 Performed By: #### L 500.2500, L100.0500 #### [facility] [address] [place], [address] Calcium [Mass/Vol] 8.5 mg/dL Normal 7.6-11.0 [facility] Comment on above: Order Comment: 122.2 Performed By: #### L 500.2500, L100.0500 #### [facility] [address] [place], [address] Chloride [Moles/Vol] 104 mmol/L Normal 98-108 [facility] Comment on above: Order Comment: 122.2 Performed By: #### L 500.2500, L100.0500 #### [facility] [address] [place], [address] CO2 [Moles/Vol] 20.3 mmol/L Low 21.0-32.0 [facility] Comment on above: Order Comment: 122.2 Performed By: #### L 500.2500, L100.0500 #### [facility] [address] [place], [address] Creatinine [Mass/Vol] 1.20 mg/dL Normal 0.70-1.20 [facility] Comment on above: Order Comment: 122.2 Performed By: #### L 500.2500, L100.0500 #### [facility] [address] [place], [address] GAP 12 Normal 5-15 [facility] Comment on above: Order Comment: 122.2 Performed By: #### L 500.2500, L100.0500 #### [facility] [address] [place], [address] GFR/1.73 sq M.predicted among non-blacks MDRD (S/P/Bld) [Vol rate/Area] 47 mL/min/{1.73_m2} Low >60 [facility] Comment on above: Order Comment: 122.2 Result Comment: mL/m in/1.73m2 CKD-EPI Creatinine Equation (2020) Performed By: #### L 500.2500, L100.0500 #### [facility] [address] [place], [address] Glucose [Mass/Vol] 99 mg/dL Normal 70-99 [facility] Comment on above: Order Comment: 122.2 Performed By: #### L 500.2500, L100.0500 #### [facility] [address] [place], [address] Potassium [Moles/Vol] 3.9 mmol/L Normal 3.3-5.1 [facility] Comment on above: Order Comment: 122.2 Performed By: #### L 500.2500, L100.0500 #### [facility] [address] [place], [address] Sodium [Moles/Vol] 136 mmol/L Normal 133-145 [facility] Comment on above: Order Comment: 122.2 Performed By: #### L 500.2500, L100.0500 #### [facility] [address] [place], [address] Urea nitrogen [Mass/Vol] 9 mg/dL Normal 4-19 [facility] Comment on above: Order Comment: 122.2 Performed By: #### L 500.2500, L100.0500 #### [facility] [address] [place], [address] CBC-Complete Blood Cnt No Di ffon 08-05-2024 HCT Normal 37-47 [facility] Comment on above: Order Comment: 122.2 Result Comment: DANIELLE OT FIND TUBE. HEM AND MYSELF LOOKED EVERYWHERE Performed By: #### L 500.2500, L100.0500 #### [facility] [address] [place], [address] HGB Normal 12.0-15.0 [facility] Comment on above: Order Comment: 122.2 Result Comment: DANIELLE OT FIND TUBE. HEM AND MYSELF LOOKED EVERYWHERE Performed By: #### L 500.2500, L100.0500 #### [facility] [address] [place], [address] MCH Normal 27.0-32.0 [facility] Comment on above: Order Comment: 122.2 Result Comment: DANIELLE OT FIND TUBE. HEM AND MYSELF LOOKED EVERYWHERE Performed By: #### L 500.2500, L100.0500 #### [facility] [address] [place], [address] MCHC Normal 32-36 [facility] Comment on above: Order Comment: 122.2 Result Comment: DANIELLE OT FIND TUBE. HEM AND MYSELF LOOKED EVERYWHERE Performed By: #### L 500.2500, L100.0500 #### [facility] [address] [place], [address] MCV Normal 81-99 [facility] Comment on above: Order Comment: 122.2 Result Comment: DANIELLE OT FIND TUBE. HEM AND MYSELF LOOKED EVERYWHERE Performed By: #### L 500.2500, L100.0500 #### [facility] [address] [place], [address] PLT Normal 150-450 [facility] Comment on above: Order Comment: 122.2 Result Comment: DANIELLE OT FIND TUBE. HEM AND MYSELF LOOKED EVERYWHERE Performed By: #### L 500.2500, L100.0500 #### [facility] [address] [place], [address] RBC Normal 4.2-5.4 [facility] Comment on above: Order Comment: 122.2 Result Comment: DANIELLE OT FIND TUBE. HEM AND MYSELF LOOKED EVERYWHERE Performed By: #### L 500.2500, L100.0500 #### [facility] [address] [place], [address] RDW CV Normal 11.6-14.6 [facility] Comment on above: Order Comment: 122.2 Result Comment: DANIELLE OT FIND TUBE. HEM AND MYSELF LOOKED EVERYWHERE Performed By: #### L 500.2500, L100.0500 #### [facility] [address] [place], [address] RDW SD Normal 35.1-43.9 [facility] Comment on above: Order Comment: 122.2 Result Comment: DANIELLE OT FIND TUBE. HEM AND MYSELF LOOKED EVERYWHERE Performed By: #### L 500.2500, L100.0500 #### [facility] [address] [place], [address] WBC Normal 4.4-11.0 [facility] Comment on above: Order Comment: 122.2 Result Comment: DANIELLE OT FIND TUBE. HEM AND MYSELF LOOKED EVERYWHERE Performed By: #### L 500.2500, L100.0500 #### [facility] [address] [place], [address] Carbon dioxide, total [Moles /volume] in Central venous bloodOrdered By: Jean-Paul Rothman on 08-05-2024 CO2 [Moles/Vol] 20.3 mmol/L Low 21.0-32.0 [facility] Chloride assayOrdered By: Kirti Rothman on 08-05-2024 Chloride [Moles/Vol] 104 mmol/L 98-108 [facility] Glomerular filtration rate ( GFR) estimation/1.73 sq m using serum, plasma, or whole bOrdered By: Jean-Paul Rothman on 08-05-2024 GFR/1.73 sq M.predicted among non-blacks MDRD (S/P/Bld) [Vol rate/Area] 47 mL/min/{1.73_m2} Low >60 [facility] Comment on above: mL/min/1.73m2 CKD-EP I Creatinine Equation (2020) Potassium measurement (mass/ volume)Ordered By: Jean-Paul Rothman on 08-05-2024 Potassium (Unsp spec) [Mass/Vol] 3.9 mmol/L 3.3-5.1 [facility] Serum creatinine measurement (mass/volume)Ordered By: Jean-Paul Rothman on 08-05-2024 Creatinine [Mass/Vol] 1.20 mg/dL 0.70-1.20 [facility] Serum glucose measurement (m ass/volume)Ordered By: Jean-Paul Rothman on 08-05-2024 Glucose [Mass/Vol] 99 mg/dL 70-99 [facility] Serum or plasma calcium yulia urement (mass/volume)Ordered By: Jean-Paul Rothman on 08-05-2024 Calcium [Mass/Vol] 8.5 mg/dL 7.6-11.0 [facility] Serum or plasma urea nitroge n measurement (mass/volume)Ordered By: Jean-Paul Rothman on 08-05-2024 Urea nitrogen [Mass/Vol] 9 mg/dL 4-19 [facility] Sodium levelOrdered By: Jean-Paul Rothman on 08-05-2024 Sodium [Moles/Vol] 136 mmol/L 133-145 [facility] Basic Metabolic Profile (BMP )on 05-06-2024 BUN/CRE 13.0 RATIO Normal 10-20 [facility] Comment on above: Order Comment: 122.2 Performed By: #### L 259.2953, L500.2500, L100.0500 #### [facility] [address] [place], [address] CA,Total 9.0 mg/dL Normal 8.5-10.1 [facility] Comment on above: Order Comment: 122.2 Performed By: #### L 501.9985, L500.2500, L100.0500 #### [facility] [address] [place], [address] Chloride [Moles/Vol] 105 mmol/L Normal 98-107 [facility] Comment on above: Order Comment: 122.2 Performed By: #### L 501.9985, L500.2500, L100.0500 #### [facility] [address] [place], [address] CO2 [Moles/Vol] 27.0 mmol/L Normal 21.0-32.0 [facility] Comment on above: Order Comment: 122.2 Performed By: #### L 501.9985, L500.2500, L100.0500 #### [facility] [address] [place], [address] Creatinine [Mass/Vol] 1.23 mg/dL High 0.55-1.02 [facility] Comment on above: Order Comment: 122.2 Result Comment: The validity of the calculated GFR GFRAA in patients over 70 years has not been determined. Clinical correlation is essential. Performed By: #### L 501.9985, L500.2500, L100.0500 #### [facility] [address] [place], [address] EST GFR - AA 55 mL/min Low >60 [facility] Comment on above: Order Comment: 122.2 Result Comment: Afri can [place] African GFR Calc Performed By: #### L [id number], L500.2500, L100.0500 #### [facility] [address] [place], [address] GAP 3 Low 5-15 [facility] Comment on above: Order Comment: 122.2 Performed By: #### L 501.9985, L500.2500, L100.0500 #### [facility] [address] [place], [address] GFR/1.73 sq M.predicted among non-blacks MDRD (S/P/Bld) [Vol rate/Area] 45 mL/min/{1.73_m2} Low >60 [facility] Comment on above: Order Comment: 122.2 Result Comment: Non- GFR Calc Performed By: #### L 501.9985, L500.2500, L100.0500 #### [facility] [address] [place], [address] Glucose [Mass/Vol] 147 mg/dL High 74-106 [facility] Comment on above: Order Comment: 122.2 Result Comment: Fast ing Glucose result greater than or equal to 126 mg/dL suggests DIABETES MELLITUS per A.D.A. criteria. Performed By: #### L 501.9985, L500.2500, L100.0500 #### [facility] [address] [place], [address] Potassium [Moles/Vol] 4.6 mmol/L Normal 3.5-5.1 [facility] Comment on above: Order Comment: 122.2 Performed By: #### L 501.9985, L500.2500, L100.0500 #### [facility] [address] [place], [address] Sodium [Moles/Vol] 135 mmol/L Low 136-145 [facility] Comment on above: Order Comment: 122.2 Performed By: #### L [id number], L500.2500, L100.0500 #### [facility] [address] [place], [address] Urea nitrogen [Mass/Vol] 16 mg/dL Normal 7-18 [facility] Comment on above: Order Comment: 122.2 Performed By: #### L [id number], L500.2500, L100.0500 #### [facility] [address] [place], [address] Blood urea nitrogen (BUN)/cr eatinine ratioOrdered By: Jean-Paul Rothman on 05-06-2024 Urea nitrogen/Creatinine [Mass ratio] 13.0 mg/mg - [facility] CBC-Complete Blood Cnt No Di ffon 05-06-2024 MCH (RBC) [Entitic mass] 35.1 pg High 27.0-32.0 [facility] Comment on above: Order Comment: 122.2 Performed By: #### L [id number], L500.2500, L100.0500 #### [facility] [address] [place], [address] MCHC (RBC) [Mass/Vol] 36.9 g/dL High 32-36 [facility] Comment on above: Order Comment: 122.2 Performed By: #### L 501.9985, L500.2500, L100.0500 #### [facility] [address] [place], [address] Hemoglobin (Bld) [Mass/Vol] 10.5 g/dL Low 12.0-15.0 [facility] Comment on above: Order Comment: 122.2 Performed By: #### L [id number], L500.2500, L100.0500 #### [facility] [address] [place], [address] Erythrocyte distribution width (RBC) [Ratio] 12.6 % Normal 11.6-14.6 [facility] Comment on above: Order Comment: 122.2 Performed By: #### L 501.9985, L500.2500, L100.0500 #### [facility] [address] [place], [address] Hematocrit (Bld) [Volume fraction] 28.4 % Low 37-47 [facility] Comment on above: Order Comment: 122.2 Performed By: #### L 501.9985, L500.2500, L100.0500 #### [facility] [address] [place], [address] MCV (RBC) [Entitic vol] 95.0 fL Normal 81-99 [facility] Comment on above: Order Comment: 122.2 Performed By: #### L 501.9985, L500.2500, L100.0500 #### [facility] [address] [place], [address] Platelet mean volume (Bld) [Entitic vol] 11.4 fL Normal 6.2-12.0 [facility] Comment on above: Order Comment: 122.2 Performed By: #### L [id number], L500.2500, L100.0500 #### [facility] [address] [place], [address] Platelets (Bld) [#/Vol] 166 10*3/uL Normal 150-450 [facility] Comment on above: Order Comment: 122.2 Performed By: #### L [id number], L500.2500, L100.0500 #### [facility] [address] [place], [address] RBC (Bld) [#/Vol] 2.99 10*6/uL Low 4.2-5.4 [facility] Comment on above: Order Comment: 122.2 Performed By: #### L [id number], L500.2500, L100.0500 #### [facility] [address] [place], [address] RDW SD 40.6 fl Normal 35.1-43.9 [facility] Comment on above: Order Comment: 122.2 Performed By: #### L 501.9985, L500.2500, L100.0500 #### [facility] [address] [place], [address] WBC (Bld) [#/Vol] 5.7 10*3/uL Normal 4.4-11.0 [facility] Comment on above: Order Comment: 122.2 Performed By: #### L 501.9985, L500.2500, L100.0500 #### [facility] [address] [place], [place], [id number] Carbon dioxide measurementOr dered By: Jean-Paul Rothman on 05-06-2024 CO2 [Moles/Vol] 27.0 mmol/L 21.0-32.0 [facility] Chloride measurementOrdered By: Jean-Paul Rothman on 05-06-2024 Chloride [Moles/Vol] 105 mmol/L 98-107 [facility] Erythrocyte distribution wid th ratioOrdered By: Jean-Paul Rothman on 05-06-2024 Erythrocyte distribution width (RBC) [Ratio] 12.6 % 11.6-14.6 [facility] Erythrocyte distribution wid th standard deviationOrdered By: Jean-Paul Rothman on 05-06-2024 Erythrocyte distribution width (RBC) [Ratio] 40.6 fl 35.1-43.9 [facility] Glomerular filtration rate ( GFR) estimationOrdered By: Jean-Paul Rothman on 05-06-2024 GFR/1.73 sq M.predicted among non-blacks MDRD (S/P/Bld) [Vol rate/Area] 45 mL/min/{1.73_m2} Low >60 [facility] Comment on above: Non- GFR Calc Glucose measurementOrdered B y: Jean-Paul Rothman on 05-06-2024 Glucose [Mass/Vol] 147 mg/dL High 74-106 [facility] Comment on above: Fasting Glucose resu lt greater than or equal to 126 mg/dL suggests DIABETES MELLITUS per A.D.A. criteria. Hematocrit Auto (Bld) [Volum e fraction]Ordered By: Jean-Paul Rothman on 05-06-2024 Hematocrit (Bld) [Volume fraction] 28.4 % Low 37-47 [facility] Hemoglobin A1con 05-06-2024 HbA1c (Bld) [Mass fraction] 8.3 % High 3.8-5.6 [facility] Comment on above: Order Comment: 122.2 Result Comment: Norm al < 5.7 % Prediabetic 5.7 - 6.4 % Diabetic >or= 6.5 % Please note range changes. Performed By: #### L 501.9985, L100.0500, L500.2500 #### [facility] [place], [address] Hemoglobin A1c percentageOrd ered By: Jean-Paul Rothman on 05-06-2024 HbA1c (Bld) [Mass fraction] 8.3 % High 3.8-5.6 [facility] Comment on above: Normal < 5.7 % Predi abetic 5.7 - 6.4 % Diabetic >or= 6.5 % Please note range changes. Hemoglobin measurementOrdere d By: Jean-Paul Rothman on 05-06-2024 Hemoglobin (Bld) [Mass/Vol] 10.5 g/dL Low 12.0-15.0 [facility] MCV (mean corpuscular volume ) determinationOrdered By: Jean-Paul Rothman on 05-06-2024 MCV (RBC) [Entitic vol] 95.0 fL 81-99 [facility] Mean corpuscular hemoglobin (MCH) determinationOrdered By: Jean-Paul Rothman on 05-06-2024 MCH (RBC) [Entitic mass] 35.1 pg High 27.0-32.0 [facility] Mean corpuscular hemoglobin concentration (MCHC) determinationOrdered By: Jean-Paul Rothman on 05-06-2024 MCHC (RBC) [Mass/Vol] 36.9 g/dL High 32-36 [facility] Mean platelet volume determi nationOrdered By: Jean-Paul Rothman on 05-06-2024 Platelet mean volume (Bld) [Entitic vol] 11.4 fL 6.2-12.0 [facility] Platelet countOrdered By: Kirti Rothman on 05-06-2024 Platelets (Bld) [#/Vol] 166 10*3/uL 150-450 [facility] Potassium measurementOrdered By: Jean-Paul Rothman on 05-06-2024 Potassium [Moles/Vol] 4.6 mmol/L 3.5-5.1 [facility] RBC Auto (Bld) [#/Vol]Ordere d By: Jean-Paul Rothman on 05-06-2024 RBC (Bld) [#/Vol] 2.99 10*6/uL Low 4.2-5.4 [facility] Serum anion gap measurementO rdered By: Jean-Paul Rothman on 05-06-2024 Anion gap [Moles/Vol] 3 mmol/L Low 5-15 [facility] Serum or plasma calcium yulia urement (mass/volume)Ordered By: Jean-Paul Rothman on 05-06-2024 Calcium [Mass/Vol] 9.0 mg/dL 8.5-10.1 [facility] Serum or plasma creatinine m easurement (mass/volume)Ordered By: Jean-Paul Rothman on 05-06-2024 Creatinine [Mass/Vol] 1.23 mg/dL High 0.55-1.02 [facility] Comment on above: The validity of the calculated GFR & GFRAA in patients over 70 years has not been determined. Clinical correlation is essential. Serum or plasma urea nitroge n measurement (mass/volume)Ordered By: Jean-Paul Rothman on 05-06-2024 Urea nitrogen [Mass/Vol] 16 mg/dL 18 [facility] Sodium levelOrdered By: Jean-Paul Rothman on 05-06-2024 Sodium [Moles/Vol] 135 mmol/L Low 136-145 [facility] White blood cell (WBC) count Ordered By: Jean-Paul Rothman on 05-06-2024 WBC (Bld) [#/Vol] 5.7 10*3/uL 4.4-11.0 [facility] Basic Metabolic Profile (BMP )on 02-04-2024 BUN/CRE 15.9 RATIO Normal - [facility] Comment on above: Order Comment: 122.2 Performed By: #### L [id number], L100.0500, L500.2500 #### [facility] [address] [place], [address] CA,Total 8.5 mg/dL Normal 8.5-10.1 [facility] Comment on above: Order Comment: 122.2 Performed By: #### L [id number], L100.0500, L500.2500 #### [facility] [address] [place], [address] Chloride [Moles/Vol] 110 mmol/L High 98-107 [facility] Comment on above: Order Comment: 122.2 Performed By: #### L [id number], L100.0500, L500.2500 #### [facility] [address] [place], [address] CO2 [Moles/Vol] 27.0 mmol/L Normal 21.0-32.0 [facility] Comment on above: Order Comment: 122.2 Performed By: #### L [id number], L100.0500, L500.2500 #### [facility] [address] [place], [address] Creatinine [Mass/Vol] 1.51 mg/dL High 0.55-1.02 [facility] Comment on above: Order Comment: 122.2 Result Comment: The validity of the calculated GFR GFRAA in patients over 70 years has not been determined. Clinical correlation is essential. Performed By: #### L 501.9985, L100.0500, L500.2500 #### [facility] [address] [place], [address] EST GFR - AA 43 mL/min Low >60 [facility] Comment on above: Order Comment: 122.2 Result Comment: Afri can [place] GFR Calc Performed By: #### L [id number], L100.0500, L500.2500 #### [facility] [address] [place], [address] GAP 4 Low 5-15 [facility] Comment on above: Order Comment: 122.2 Performed By: #### L 501.9985, L100.0500, L500.2500 #### [facility] [address] [place], [address] GFR/1.73 sq M.predicted among non-blacks MDRD (S/P/Bld) [Vol rate/Area] 36 mL/min/{1.73_m2} Low >60 [facility] Comment on above: Order Comment: 122.2 Result Comment: Non- GFR Calc Performed By: #### L 501.9985, L100.0500, L500.2500 #### [facility] [address] [place], [address] Glucose [Mass/Vol] 75 mg/dL Normal 74-106 [facility] Comment on above: Order Comment: 122.2 Performed By: #### L 501.9985, L100.0500, L500.2500 #### [facility] [address] [place], [address] Potassium [Moles/Vol] 4.2 mmol/L Normal 3.5-5.1 [facility] Comment on above: Order Comment: 122.2 Performed By: #### L 501.9985, L100.0500, L500.2500 #### [facility] [address] [place], [address] Sodium [Moles/Vol] 141 mmol/L Normal 136-145 [facility] Comment on above: Order Comment: 122.2 Performed By: #### L 501.9985, L100.0500, L500.2500 #### [facility] [address] [place], [address] Urea nitrogen [Mass/Vol] 24 mg/dL High 7-18 [facility] Comment on above: Order Comment: 122.2 Performed By: #### L 501.9985, L100.0500, L500.2500 #### [facility] [address] [place], [address] CBC-Complete Blood Cnt No Di ffon 02-04-2024 Erythrocyte distribution width (RBC) [Ratio] 13.5 % Normal 11.6-14.6 [facility] Comment on above: Order Comment: 122.2 Performed By: #### L 501.9985, L100.0500, L500.2500 #### [facility] [address] [place], [address] Hematocrit (Bld) [Volume fraction] 32.7 % Low 37-47 [facility] Comment on above: Order Comment: 122.2 Performed By: #### L 501.9985, L100.0500, L500.2500 #### [facility] [address] [place], [address] Hemoglobin (Bld) [Mass/Vol] 10.9 g/dL Low 12.0-15.0 [facility] Comment on above: Order Comment: 122.2 Performed By: #### L 501.9985, L100.0500, L500.2500 #### [facility] [address] [place], [address] MCH (RBC) [Entitic mass] 31.3 pg Normal 27.0-32.0 [facility] Comment on above: Order Comment: 122.2 Performed By: #### L 501.9985, L100.0500, L500.2500 #### [facility] [address] [place], [address] MCHC (RBC) [Mass/Vol] 33.3 g/dL Normal 32-36 [facility] Comment on above: Order Comment: 122.2 Performed By: #### L 501.9985, L100.0500, L500.2500 #### [facility] [address] [place], [address] MCV (RBC) [Entitic vol] 94.0 fL Normal 81-99 [facility] Comment on above: Order Comment: 122.2 Performed By: #### L 501.9985, L100.0500, L500.2500 #### [facility] [address] [place], [address] Platelet mean volume (Bld) [Entitic vol] 10.4 fL Normal 6.2-12.0 [facility] Comment on above: Order Comment: 122.2 Performed By: #### L 501.9985, L100.0500, L500.2500 #### [facility] [address] [place], [address] Platelets (Bld) [#/Vol] 219 10*3/uL Normal 150-450 [facility] Comment on above: Order Comment: 122.2 Performed By: #### L 501.9985, L100.0500, L500.2500 #### [facility] [address] [place], [address] RBC (Bld) [#/Vol] 3.48 10*6/uL Low 4.2-5.4 [facility] Comment on above: Order Comment: 122.2 Performed By: #### L 501.9985, L100.0500, L500.2500 #### [facility] [address] [place], [address] RDW SD 45.8 fl High 35.1-43.9 [facility] Comment on above: Order Comment: 122.2 Performed By: #### L 501.9985, L100.0500, L500.2500 #### [facility] [address] [place], [address] WBC (Bld) [#/Vol] 6.8 10*3/uL Normal 4.4-11.0 [facility] Comment on above: Order Comment: 122.2 Performed By: #### L 501.9985, L100.0500, L500.2500 #### [facility] [address] [place], [address] Hemoglobin A1con 02-04-2024 HbA1c (Bld) [Mass fraction] 9.1 % High 3.8-5.6 [facility] Comment on above: Order Comment: 122.2 Result Comment: Norm al < 5.7 % Prediabetic 5.7 - 6.4 % Diabetic >or= 6.5 % Please note range changes. Performed By: #### L 501.9985, L100.0500, L500.2500 #### [facility] [address] [place], [address] Basic Metabolic Profile (BMP )on 11-03-2023 BUN/CRE 12.4 RATIO Normal 10-20 [facility] Comment on above: Performed By: #### L 501.9985, L100.0500, L500.2500 #### [facility] [address] [place], [address] CA,Total 8.8 mg/dL Normal 8.5-10.1 [facility] Comment on above: Performed By: #### L 501.9985, L100.0500, L500.2500 #### [facility] [address] [place], [address] Chloride [Moles/Vol] 105 mmol/L Normal 98-107 [facility] Comment on above: Performed By: #### L 501.9985, L100.0500, L500.2500 #### [facility] [address] [place], [address] CO2 [Moles/Vol] 28.0 mmol/L Normal 21.0-32.0 [facility] Comment on above: Performed By: #### L 501.9985, L100.0500, L500.2500 #### [facility] [address] [place], [address] Creatinine [Mass/Vol] 1.29 mg/dL High 0.55-1.02 [facility] Comment on above: Result Comment: The validity of the calculated GFR GFRAA in patients over 70 years has not been determined. Clinical correlation is essential. Performed By: #### L 501.9985, L100.0500, L500.2500 #### [facility] [address] [place], [address] EST GFR - AA 52 mL/min Low >60 [facility] Comment on above: Result Comment: Afri can [place] GFR Calc Performed By: #### L 501.9985, L100.0500, L500.2500 #### [facility] [address] [place], [address] GAP 4 Low 5-15 [facility] Comment on above: Performed By: #### L 501.9985, L100.0500, L500.2500 #### [facility] [address] [place], [address] GFR/1.73 sq M.predicted among non-blacks MDRD (S/P/Bld) [Vol rate/Area] 43 mL/min/{1.73_m2} Low >60 [facility] Comment on above: Result Comment: Non- GFR Calc Performed By: #### L 501.9985, L100.0500, L500.2500 #### [facility] [address] [place], [address] Glucose [Mass/Vol] 162 mg/dL High 74-106 [facility] Comment on above: Result Comment: Fast ing Glucose result greater than or equal to 126 mg/dL suggests DIABETES MELLITUS per A.D.A. criteria. Performed By: #### L 501.9985, L100.0500, L500.2500 #### [facility] [address] [place], [address] Potassium [Moles/Vol] 4.1 mmol/L Normal 3.5-5.1 [facility] Comment on above: Performed By: #### L 501.9985, L100.0500, L500.2500 #### [facility] [address] [place], [address] Sodium [Moles/Vol] 137 mmol/L Normal 136-145 [facility] Comment on above: Performed By: #### L 501.9985, L100.0500, L500.2500 #### [facility] [address] [place], [address] Urea nitrogen [Mass/Vol] 16 mg/dL Normal 7-18 [facility] Comment on above: Performed By: #### L 501.9985, L100.0500, L500.2500 #### [facility] [address] [place], [address] CBC-Complete Blood Cnt No Di ffon 11-03-2023 Erythrocyte distribution width (RBC) [Ratio] 12.0 % Normal 11.6-14.6 [facility] Comment on above: Performed By: #### L 501.9985, L100.0500, L500.2500 #### [facility] [address] [place], [address] Hematocrit (Bld) [Volume fraction] 37.0 % Normal 37-47 [facility] Comment on above: Performed By: #### L 501.9985, L100.0500, L500.2500 #### [facility] [address] [place], [address] Hemoglobin (Bld) [Mass/Vol] 12.1 g/dL Normal 12.0-15.0 [facility] Comment on above: Performed By: #### L 501.9985, L100.0500, L500.2500 #### [facility] [address] [place], [address] MCH (RBC) [Entitic mass] 29.6 pg Normal 27.0-32.0 [facility] Comment on above: Performed By: #### L 501.9985, L100.0500, L500.2500 #### [facility] [address] [place], [address] MCHC (RBC) [Mass/Vol] 32.7 g/dL Normal 32-36 [facility] Comment on above: Performed By: #### L 501.9985, L100.0500, L500.2500 #### [facility] [address] [place], [address] MCV (RBC) [Entitic vol] 90.5 fL Normal 81-99 [facility] Comment on above: Performed By: #### L 501.9985, L100.0500, L500.2500 #### [facility] [address] [place], [address] Platelet mean volume (Bld) [Entitic vol] 10.7 fL Normal 6.2-12.0 [facility] Comment on above: Performed By: #### L 501.9985, L100.0500, L500.2500 #### [facility] [address] [place], [address] Platelets (Bld) [#/Vol] 279 10*3/uL Normal 150-450 [facility] Comment on above: Performed By: #### L 501.9985, L100.0500, L500.2500 #### [facility] [address] [place], [address] RBC (Bld) [#/Vol] 4.09 10*6/uL Low 4.2-5.4 [facility] Comment on above: Performed By: #### L 501.9985, L100.0500, L500.2500 #### [facility] [address] [place], [address] RDW SD 39.7 fl Normal 35.1-43.9 [facility] Comment on above: Performed By: #### L 501.9985, L100.0500, L500.2500 #### [facility] [address] [place], [address] WBC (Bld) [#/Vol] 6.4 10*3/uL Normal 4.4-11.0 [facility] Comment on above: Performed By: #### L 501.9985, L100.0500, L500.2500 #### [facility] [address] [place], [address] Hemoglobin A1con 11-03-2023 HbA1c (Bld) [Mass fraction] 8.4 % High 3.8-5.6 [facility] Comment on above: Result Comment: Norm al < 5.7 % Prediabetic 5.7 - 6.4 % Diabetic >or= 6.5 % Please note range changes. Performed By: #### L 501.3461, L100.0500, L500.2500 #### [facility] [address] [place], [address] Basophil percentageOrdered B y: Jean-Paul Rothman on 05-06-2023 Chloride [Moles/Vol] 108 mmol/L 98-107 [facility] Glucose [Mass/Vol] 138 mg/dL 74-106 [facility] Comment on above: Fasting Glucose resu lt greater than or equal to 126 mg/dL suggests DIABETES MELLITUS per A.D.A. criteria. Potassium [Moles/Vol] 3.7 mmol/L 3.5-5.1 [facility] Sodium [Moles/Vol] 140 mmol/L 136-145 [facility] WBC (Bld) [#/Vol] 7.0 10*3/uL 4.4-11.0 [facility] Blood erythrocytes count (nu mber/volume)Ordered By: Jean-Paul Rothman on 05-06-2023 RBC (Bld) [#/Vol] 4.10 10*6/uL 4.2-5.4 [facility] Blood hemoglobin measurement (mass/volume)Ordered By: Jean-Paul Rothman on 05-06-2023 Hemoglobin (Bld) [Mass/Vol] 12.3 g/dL 12.0-15.0 [facility] Blood platelet mean volumeOr dered By: Jean-Paul Rothman on 05-06-2023 Platelet mean volume (Bld) [Entitic vol] 11.2 fL 6.2-12.0 [facility] Determination of erythrocyte mean corpuscular volume (MCV)Ordered By: Jean-Paul Rothman on 05-06-2023 MCV (RBC) [Entitic vol] 91.7 fL 81-99 [facility] Hematocrit Auto (Bld) [Volum e fraction]Ordered By: Jean-Paul Rothman on 05-06-2023 Hematocrit (Bld) [Volume fraction] 37.6 % 37-47 [facility] - Chemistry and C hemistry - challengeOrdered By: Jean-Paul Rothman on 05-06-2023 CO2 [Moles/Vol] 28.0 mmol/L 21.0-32.0 [facility] Urea nitrogen/Creatinine [Mass ratio] 9.3 mg/mg 10-20 [facility] - Hematology and Cell countsOrdered By: Jean-Paul Rothman on 05-06-2023 Erythrocyte distribution width (RBC) [Entitic vol] 49.7 fL 35.1-43.9 [facility] Erythrocyte distribution width (RBC) [Ratio] 14.9 % 11.6-14.6 [facility] MCH (RBC) [Entitic mass] 30.0 pg 27.0-32.0 [facility] MCHC Auto (RBC) [Mass/Vol]Or dered By: Jean-Paul Rothman on 05-06-2023 MCHC (RBC) [Mass/Vol] 32.7 g/dL 32-36 [facility] No Panel InformationOrdered By: Jean-Paul Rothman on 05-06-2023 Estimated GFR (MDRD) Amer 57 mL/min >60 [facility] Comment on above: GFR Calc Estimated GFR (MDRD) Non-Af Amer 47 mL/min >60 [facility] Comment on above: Non- GFR Calc Platelets bldOrdered By: Vito Rothman on 05-06-2023 Platelets (Bld) [#/Vol] 210 10*3/uL 150-450 [facility] Serum or plasma calcium yulia urement (mass/volume)Ordered By: Jean-Paul Rothman on 05-06-2023 Calcium [Mass/Vol] 8.9 mg/dL 8.5-10.1 [facility] Serum or plasma creatinine m easurement (mass/volume)Ordered By: Jean-Paul Rothman on 05-06-2023 Creatinine [Mass/Vol] 1.18 mg/dL 0.55-1.02 [facility] Comment on above: The validity of the calculated GFR & GFRAA in patients over 70 years has not been determined. Clinical correlation is essential. Serum or plasma urea nitroge n measurement (mass/volume)Ordered By: Jean-Paul Rothman on 05-06-2023 Urea nitrogen [Mass/Vol] 11 mg/dL 7-18 [facility] Thin prep Papanicolaou smear with manual screeningOrdered By: Jean-Paul Rothman on 05-06-2023 Thin prep Papanicolaou smear with manual screening 4 5-15 [facility] Whole blood hemoglobin A1c/t otal hemoglobin ratio (mass fraction)Ordered By: Jean-Paul Rothman on 05-06-2023 HbA1c (Bld) [Mass fraction] 5.5 % 3.8-5.6 [facility] Comment on above: Normal < 5.7 % Predi abetic 5.7 - 6.4 % Diabetic >or= 6.5 % Please note range changes. Basophil percentageOrdered B y: Jean-Paul Rothman on 02-05-2023 Chloride [Moles/Vol] 109 mmol/L 98-107 [facility] Glucose [Mass/Vol] 104 mg/dL 74-106 [facility] Comment on above: Fasting Glucose resu lt from 100 to 125 mg/dL suggests IMPAIRED HOMEOSTASIS per A.D.A. criteria. Potassium [Moles/Vol] 3.6 mmol/L 3.5-5.1 [facility] Sodium [Moles/Vol] 141 mmol/L 136-145 [facility] WBC (Bld) [#/Vol] 5.9 10*3/uL 4.4-11.0 [facility] Blood erythrocytes count (nu mber/volume)Ordered By: Jean-Paul Rothman on 02-05-2023 RBC (Bld) [#/Vol] 3.63 10*6/uL 4.2-5.4 [facility] Blood hemoglobin measurement (mass/volume)Ordered By: Jean-Paul Rothman on 02-05-2023 Hemoglobin (Bld) [Mass/Vol] 10.3 g/dL 12.0-15.0 [facility] Blood platelet mean volumeOr dered By: Jean-Paul Rothman on 02-05-2023 Platelet mean volume (Bld) [Entitic vol] 10.7 fL 6.2-12.0 [facility] Determination of erythrocyte mean corpuscular volume (MCV)Ordered By: Jean-Paul Rothman on 02-05-2023 MCV (RBC) [Entitic vol] 90.6 fL 81-99 [facility] Hematocrit Auto (Bld) [Volum e fraction]Ordered By: Jean-Paul Rothman on 02-05-2023 Hematocrit (Bld) [Volume fraction] 32.9 % 37-47 [facility] - Chemistry and C hemistry - challengeOrdered By: Jean-Paul Rothman on 02-05-2023 CO2 [Moles/Vol] 29.0 mmol/L 21.0-32.0 [facility] Urea nitrogen/Creatinine [Mass ratio] 8.1 mg/mg 10-20 [facility] - Hematology and Cell countsOrdered By: Jean-Paul Rothman on 02-05-2023 Erythrocyte distribution width (RBC) [Entitic vol] 47.4 fL 35.1-43.9 [facility] Erythrocyte distribution width (RBC) [Ratio] 14.4 % 11.6-14.6 [facility] MCH (RBC) [Entitic mass] 28.4 pg 27.0-32.0 [facility] MCHC Auto (RBC) [Mass/Vol]Or dered By: Jean-Paul Rothman on 02-05-2023 MCHC (RBC) [Mass/Vol] 31.3 g/dL 32-36 [facility] No Panel InformationOrdered By: Jean-Paul Rothman on 02-05-2023 Estimated GFR (MDRD) Amer 54 mL/min >60 [facility] Comment on above: GFR Calc Estimated GFR (MDRD) Non-Af Amer 45 mL/min >60 [facility] Comment on above: Non- GFR Calc Platelets bldOrdered By: Vito Rothman on 02-05-2023 Platelets (Bld) [#/Vol] 208 10*3/uL 150-450 [facility] Serum or plasma calcium yulia urement (mass/volume)Ordered By: Jean-Paul Rothman on 02-05-2023 Calcium [Mass/Vol] 8.0 mg/dL 8.5-10.1 [facility] Serum or plasma creatinine m easurement (mass/volume)Ordered By: Jean-Paul Rothman on 02-05-2023 Creatinine [Mass/Vol] 1.24 mg/dL 0.55-1.02 [facility] Comment on above: The validity of the calculated GFR & GFRAA in patients over 70 years has not been determined. Clinical correlation is essential. Serum or plasma urea nitroge n measurement (mass/volume)Ordered By: Jean-Paul Rothman on 02-05-2023 Urea nitrogen [Mass/Vol] 10 mg/dL 7-18 [facility] Thin prep Papanicolaou smear with manual screeningOrdered By: Jean-Paul Rothman on 02-05-2023 Thin prep Papanicolaou smear with manual screening 3 5-15 [facility] Whole blood hemoglobin A1c/t otal hemoglobin ratio (mass fraction)Ordered By: Jean-Paul Rothman on 02-05-2023 HbA1c (Bld) [Mass fraction] 7.4 % 3.8-5.6 [facility] Comment on above: Normal < 5.7 % Predi abetic 5.7 - 6.4 % Diabetic >or= 6.5 % Please note range changes. Culture, urineOrdered By: Kirti Rothman on 01-16-2023 Bacteria identified Cx Nom (U) Culture exhibits no growth. [facility] Bacteria identified Cx Nom (U) Culture exhibits no growth. [facility] Absolute lymphocyte countOrd ered By: Jean-Paul Rothman on 01-07-2023 Lymphocytes Auto (Unsp spec) [#/Vol] 0.85 10*3/uL 0.83-4.51 [facility] Basophil percentageOrdered B y: Jean-Paul Rothman on 01-07-2023 Basophils/100 WBC (Bld) 0.3 % 0-1 [facility] Chloride [Moles/Vol] 105 mmol/L 98-107 [facility] Eosinophils/100 WBC (Bld) 0.1 % 0-5 [facility] Glucose [Mass/Vol] 293 mg/dL 74-106 [facility] Comment on above: Glucose result great er than or equal to 200 mg/dLsuggests DIABETES MELLITUS per A.D.A. criteria. Neutrophils (Bld) [#/Vol] 10.2 10*3/uL 2.0-7.7 [facility] Neutrophils/100 WBC (Bld) 85.2 % 47-70 [facility] Potassium [Moles/Vol] 3.4 mmol/L 3.5-5.1 [facility] Sodium [Moles/Vol] 138 mmol/L 136-145 [facility] WBC (Bld) [#/Vol] 11.9 10*3/uL 4.4-11.0 [facility] Basophil percentage 50-100 SEEN /hpf 0-5 [facility] Bilirubin Test strip Ql (U)O rdered By: Jean-Paul Rothman on 01-07-2023 Bilirubin Ql (U) Negative Negative [facility] Blood erythrocytes count (nu mber/volume)Ordered By: Jean-Paul Rothman on 01-07-2023 RBC (Bld) [#/Vol] 4.33 10*6/uL 4.2-5.4 [facility] Blood hemoglobin measurement (mass/volume)Ordered By: Jean-Paul Rothman on 01-07-2023 Hemoglobin (Bld) [Mass/Vol] 12.4 g/dL 12.0-15.0 [facility] Blood lymphocytes/100 leukoc ytesOrdered By: Jean-Paul Rothman on 01-07-2023 Lymphocytes/100 WBC (Bld) 7.1 % 19-41 [facility] Blood monocytes/100 leukocyt esOrdered By: Jean-Paul Rothman on 01-07-2023 Monocytes/100 WBC (Bld) 6.6 % 0-10 [facility] Blood platelet mean volumeOr dered By: Jean-Paul Rothman on 01-07-2023 Platelet mean volume (Bld) [Entitic vol] 11.7 fL 6.2-12.0 [facility] Culture, urineOrdered By: Kirti Rothman on 01-07-2023 Bacteria identified Cx Nom (U) ESBL Escherichia coli [facility] Determination of erythrocyte mean corpuscular volume (MCV)Ordered By: Jean-Paul Rothman on 01-07-2023 MCV (RBC) [Entitic vol] 89.8 fL 81-99 [facility] Hematocrit Auto (Bld) [Volum e fraction]Ordered By: Jean-Paul Rothman on 01-07-2023 Hematocrit (Bld) [Volume fraction] 38.9 % 37-47 [facility] Ketones Test strip Ql (U)Ord ered By: Jean-Paul Rothman on 01-07-2023 Ketones Ql (U) Negative Negative [facility] - Chemistry and C hemistry - challengeOrdered By: Jean-Paul Rothman on 01-07-2023 CO2 [Moles/Vol] 27.0 mmol/L 21.0-32.0 [facility] Urea nitrogen/Creatinine [Mass ratio] 20.5 mg/mg 10-20 [facility] - Hematology and Cell countsOrdered By: Jean-Paul Rothman on 01-07-2023 Erythrocyte distribution width (RBC) [Entitic vol] 44.4 fL 35.1-43.9 [facility] Erythrocyte distribution width (RBC) [Ratio] 13.5 % 11.6-14.6 [facility] Immature granulocytes/100 WBC (Bld) 0.700 % 0.0-0.9 [facility] Comment on above: IG% - Immature Granu locytes (promyelocytes, myelocytes and metamyelocytes) > 1% indicates that a LEFT SHIFT is Present. MCH (RBC) [Entitic mass] 28.6 pg 27.0-32.0 [facility] Nucleated RBC/100 WBC (Bld) [Ratio] 0 % 0-5 [facility] MCHC Auto (RBC) [Mass/Vol]Or dered By: Jean-Paul Rothman on 01-07-2023 MCHC (RBC) [Mass/Vol] 31.9 g/dL 32-36 [facility] Mucus LM Ql (Urine sed)Order ed By: Jean-Paul Rothman on 01-07-2023 Mucus Ql (Urine sed) 0 SEEN /hpf [facility] Nitrite Test strip Ql (U)Ord ered By: Jean-Paul Rothman on 01-07-2023 Nitrite Ql (U) Positive Negative [facility] No Panel InformationOrdered By: Jean-Paul Rothman on 01-07-2023 Estimated GFR (MDRD) Amer 45 mL/min >60 [facility] Comment on above: GFR Calc Estimated GFR (MDRD) Non-Af Amer 37 mL/min >60 [facility] Comment on above: Non- GFR Calc Platelets bldOrdered By: Vito Rothman on 01-07-2023 Platelets (Bld) [#/Vol] 228 10*3/uL 150-450 [facility] Protein Test strip Ql (U)Ord ered By: Jean-Paul Rothman on 01-07-2023 Protein Ql (U) 500 mg/dl Negative [facility] Serum or plasma calcium yulia urement (mass/volume)Ordered By: Jean-Paul Rothman on 01-07-2023 Calcium [Mass/Vol] 9.0 mg/dL 8.5-10.1 [facility] Serum or plasma creatinine m easurement (mass/volume)Ordered By: Jean-Paul Rothman on 01-07-2023 Creatinine [Mass/Vol] 1.46 mg/dL 0.55-1.02 [facility] Comment on above: The validity of the calculated GFR & GFRAA in patients over 70 years has not been determined. Clinical correlation is essential. Serum or plasma urea nitroge n measurement (mass/volume)Ordered By: Jean-Paul Rothman on 01-07-2023 Urea nitrogen [Mass/Vol] 30 mg/dL 7-18 [facility] Squamous epithelial cells de tection in urine sediment by light microscopyOrdered By: Jean-Pual Rothman on 01-07-2023 Epithelial cells.squamous LM Ql (Urine sed) 0 SEEN /hpf 5-10 [facility] Thin prep Papanicolaou smear with manual screeningOrdered By: Jean-Paul Rothman on 01-07-2023 Thin prep Papanicolaou smear with manual screening 6 5-15 [facility] Urine blood detectionOrdered By: Jean-Paul Rothman on 01-07-2023 RBC Ql (U) 250 /ul Negative [facility] RBC Ql (U) 25-50 SEEN /hpf 0-5 [facility] Urine clarityOrdered By: Vito Rothman on 01-07-2023 Clarity (U) Cloudy Clear [facility] Urine color determinationOrd ered By: Jean-Paul Rothman on 01-07-2023 Color (U) Yellow Yellow [facility] Urine glucose detectionOrder ed By: Jean-Paul Rothman on 01-07-2023 Glucose Ql (U) 100 mg/dl Normal [facility] Urine leukocyte esterase det ection by dipstickOrdered By: Jean-Paul Rothman on 01-07-2023 Leukocyte esterase Test strip Ql (U) 500 /ul Negative [facility] Urine pHOrdered By: Jean-Paul cole on 01-07-2023 pH (U) 6.0 [pH] 5.0 - 8.0 [facility] Urine sediment bacteria coun t by microscopy (number/high power field)Ordered By: Jean-Paul Rothman on 01-07-2023 Bacteria LM.HPF (Urine sed) [#/Area] 4 /[HPF] None Seen [facility] Urine specific gravity measu rementOrdered By: Jean-Paul Rothman on 01-07-2023 Specific gravity (U) [Rel density] 1.015 1.002-1.03 0 [facility] Urobilinogen Auto test strip Ql (U)Ordered By: Jean-Paul Rothman on 01-07-2023 Urobilinogen Ql (U) Normal mg/dl Normal [facility] Basophil percentageOrdered B y: Jean-Paul Rothman on 11-07-2022 Chloride [Moles/Vol] 110 mmol/L 98-107 [facility] Glucose [Mass/Vol] 63 mg/dL 74-106 [facility] Potassium [Moles/Vol] 3.7 mmol/L 3.5-5.1 [facility] Sodium [Moles/Vol] 141 mmol/L 136-145 [facility] WBC (Bld) [#/Vol] 6.2 10*3/uL 4.4-11.0 [facility] Blood erythrocytes count (nu mber/volume)Ordered By: Jean-Paul Rothman on 11-07-2022 RBC (Bld) [#/Vol] 3.59 10*6/uL 4.2-5.4 [facility] Blood hemoglobin measurement (mass/volume)Ordered By: Jean-Paul Rothman on 11-07-2022 Hemoglobin (Bld) [Mass/Vol] 10.7 g/dL 12.0-15.0 [facility] Blood platelet mean volumeOr dered By: Jean-Paul Rothman on 11-07-2022 Platelet mean volume (Bld) [Entitic vol] 10.6 fL 6.2-12.0 [facility] Determination of erythrocyte mean corpuscular volume (MCV)Ordered By: Jean-Paul Rothman on 11-07-2022 MCV (RBC) [Entitic vol] 92.8 fL 81-99 [facility] Hematocrit Auto (Bld) [Volum e fraction]Ordered By: Jean-Paul Rothman on 11-07-2022 Hematocrit (Bld) [Volume fraction] 33.3 % 37-47 [facility] - Chemistry and C hemistry - challengeOrdered By: Jean-Paul Rothman on 11-07-2022 CO2 [Moles/Vol] 28.0 mmol/L 21.0-32.0 [facility] Urea nitrogen/Creatinine [Mass ratio] 8.7 mg/mg 10-20 [facility] - Hematology and Cell countsOrdered By: Jean-Paul Rothman on 11-07-2022 Erythrocyte distribution width (RBC) [Entitic vol] 45.1 fL 35.1-43.9 [facility] Erythrocyte distribution width (RBC) [Ratio] 13.2 % 11.6-14.6 [facility] MCH (RBC) [Entitic mass] 29.8 pg 27.0-32.0 [facility] MCHC Auto (RBC) [Mass/Vol]Or dered By: Jean-Paul Rothman on 11-07-2022 MCHC (RBC) [Mass/Vol] 32.1 g/dL 32-36 [facility] No Panel InformationOrdered By: Jean-Paul Rothman on 11-07-2022 Estimated GFR (MDRD) Amer 59 mL/min >60 [facility] Comment on above: GFR Calc Estimated GFR (MDRD) Non-Af Amer 49 mL/min >60 [facility] Comment on above: Non- GFR Calc Platelets bldOrdered By: Vito Rothman on 11-07-2022 Platelets (Bld) [#/Vol] 215 10*3/uL 150-450 [facility] Serum or plasma calcium yulia urement (mass/volume)Ordered By: Jean-Paul Rothman on 11-07-2022 Calcium [Mass/Vol] 8.4 mg/dL 8.5-10.1 [facility] Serum or plasma creatinine m easurement (mass/volume)Ordered By: Jean-Paul Rothman on 11-07-2022 Creatinine [Mass/Vol] 1.15 mg/dL 0.55-1.02 [facility] Comment on above: The validity of the calculated GFR & GFRAA in patients over 70 years has not been determined. Clinical correlation is essential. Serum or plasma urea nitroge n measurement (mass/volume)Ordered By: Jean-Paul Rothman on 11-07-2022 Urea nitrogen [Mass/Vol] 10 mg/dL 7-18 [facility] Thin prep Papanicolaou smear with manual screeningOrdered By: Jean-Paul Rothman on 11-07-2022 Thin prep Papanicolaou smear with manual screening 3 5-15 [facility] Whole blood hemoglobin A1c/t otal hemoglobin ratio (mass fraction)Ordered By: Jean-Paul Rothman on 11-07-2022 HbA1c (Bld) [Mass fraction] 8.2 % 3.8-5.6 [facility] Comment on above: Normal < 5.7 % Predi abetic 5.7 - 6.4 % Diabetic >or= 6.5 % Please note range changes. Basophil percentageOrdered B y: Jean-Paul Rothman on 08-04-2022 Chloride [Moles/Vol] 109 mmol/L 98-107 [facility] Glucose [Mass/Vol] 118 mg/dL 74-106 [facility] Comment on above: Fasting Glucose resu lt from 100 to 125 mg/dL suggests IMPAIRED HOMEOSTASIS per A.D.A. criteria. Potassium [Moles/Vol] 3.6 mmol/L 3.5-5.1 [facility] Sodium [Moles/Vol] 141 mmol/L 136-145 [facility] WBC (Bld) [#/Vol] 7.2 10*3/uL 4.4-11.0 [facility] Blood erythrocytes count (nu mber/volume)Ordered By: Jean-Paul Rothman on 08-04-2022 RBC (Bld) [#/Vol] 3.54 10*6/uL 4.2-5.4 [facility] Blood hemoglobin measurement (mass/volume)Ordered By: Jean-Paul Rothman on 08-04-2022 Hemoglobin (Bld) [Mass/Vol] 10.4 g/dL 12.0-15.0 [facility] Blood platelet mean volumeOr dered By: Jean-Paul Rothman on 08-04-2022 Platelet mean volume (Bld) [Entitic vol] 10.6 fL 6.2-12.0 [facility] Determination of erythrocyte mean corpuscular volume (MCV)Ordered By: Jean-Paul Rothman on 08-04-2022 MCV (RBC) [Entitic vol] 92.7 fL 81-99 [facility] Hematocrit Auto (Bld) [Volum e fraction]Ordered By: Jean-Paul Rothman on 08-04-2022 Hematocrit (Bld) [Volume fraction] 32.8 % 37-47 [facility] - Chemistry and C hemistry - challengeOrdered By: Jean-Paul Rothman on 08-04-2022 CO2 [Moles/Vol] 26.0 mmol/L 21.0-32.0 [facility] Urea nitrogen/Creatinine [Mass ratio] 15.5 mg/mg 10-20 [facility] - Hematology and Cell countsOrdered By: Jean-Paul Rothman on 08-04-2022 Erythrocyte distribution width (RBC) [Entitic vol] 46.9 fL 35.1-43.9 [facility] Erythrocyte distribution width (RBC) [Ratio] 13.8 % 11.6-14.6 [facility] MCH (RBC) [Entitic mass] 29.4 pg 27.0-32.0 [facility] MCHC Auto (RBC) [Mass/Vol]Or dered By: Jean-Paul Rothman on 08-04-2022 MCHC (RBC) [Mass/Vol] 31.7 g/dL 32-36 [facility] No Panel InformationOrdered By: Jean-Paul Rothman on 08-04-2022 Estimated GFR (MDRD) Amer 67 mL/min >60 [facility] Comment on above: GFR Calc Estimated GFR (MDRD) Non-Af Amer 56 mL/min >60 [facility] Comment on above: Non- GFR Calc Platelets bldOrdered By: Vito Rothman on 08-04-2022 Platelets (Bld) [#/Vol] 213 10*3/uL 150-450 [facility] Serum or plasma calcium yulia urement (mass/volume)Ordered By: Jean-Paul Rothman on 08-04-2022 Calcium [Mass/Vol] 8.3 mg/dL 8.5-10.1 [facility] Serum or plasma creatinine m easurement (mass/volume)Ordered By: Jean-Paul Rothman on 08-04-2022 Creatinine [Mass/Vol] 1.03 mg/dL 0.55-1.02 [facility] Comment on above: The validity of the calculated GFR & GFRAA in patients over 70 years has not been determined. Clinical correlation is essential. Serum or plasma urea nitroge n measurement (mass/volume)Ordered By: Jean-Paul Rothman on 08-04-2022 Urea nitrogen [Mass/Vol] 16 mg/dL 7-18 [facility] Thin prep Papanicolaou smear with manual screeningOrdered By: Jean-Paul Rothman on 08-04-2022 Thin prep Papanicolaou smear with manual screening 6 5-15 [facility] Whole blood hemoglobin A1c/t otal hemoglobin ratio (mass fraction)Ordered By: Jean-Paul Rothman on 08-04-2022 HbA1c (Bld) [Mass fraction] 6.7 % 3.8-5.6 [facility] Comment on above: Normal < 5.7 % Predi abetic 5.7 - 6.4 % Diabetic >or= 6.5 % Please note range changes. Basophil percentageOrdered B y: [facility] on 05-06-2022 Chloride [Moles/Vol] 106 mmol/L 98-107 [facility] Glucose [Mass/Vol] 152 mg/dL 74-106 [facility] Comment on above: Fasting Glucose resu lt greater than or equal to 126 mg/dL suggests DIABETES MELLITUS per A.D.A. criteria. Potassium [Moles/Vol] 4.3 mmol/L 3.5-5.1 [facility] Sodium [Moles/Vol] 138 mmol/L 136-145 [facility] WBC (Bld) [#/Vol] 5.3 10*3/uL 4.4-11.0 [facility] Blood erythrocytes count (nu mber/volume)Ordered By: [facility] on 05-06-2022 RBC (Bld) [#/Vol] 3.96 10*6/uL 4.2-5.4 [facility] Blood hemoglobin measurement (mass/volume)Ordered By: [facility] on 05-06-2022 Hemoglobin (Bld) [Mass/Vol] 11.5 g/dL 12.0-15.0 [facility] Blood platelet mean volumeOr dered By: [facility] on 05-06-2022 Platelet mean volume (Bld) [Entitic vol] 11.1 fL 6.2-12.0 [facility] Determination of erythrocyte mean corpuscular volume (MCV)Ordered By: [facility] on 05-06-2022 MCV (RBC) [Entitic vol] 90.7 fL 81-99 [facility] Hematocrit Auto (Bld) [Volum e fraction]Ordered By: [facility] on 05-06-2022 Hematocrit (Bld) [Volume fraction] 35.9 % 37-47 [facility] - Chemistry and C hemistry - challengeOrdered By: [facility] on 05-06-2022 CO2 [Moles/Vol] 24.0 mmol/L 21.0-32.0 [facility] Urea nitrogen/Creatinine [Mass ratio] 17.3 mg/mg 10-20 [facility] - Hematology and Cell countsOrdered By: [facility] on 05-06-2022 Erythrocyte distribution width (RBC) [Entitic vol] 49.1 fL 35.1-43.9 [facility] Erythrocyte distribution width (RBC) [Ratio] 15.0 % 11.6-14.6 [facility] MCH (RBC) [Entitic mass] 29.0 pg 27.0-32.0 [facility] MCHC Auto (RBC) [Mass/Vol]Or dered By: [facility] on 05-06-2022 MCHC (RBC) [Mass/Vol] 32.0 g/dL 32-36 [facility] No Panel InformationOrdered By: [facility] on 05-06-2022 Estimated GFR (MDRD) Amer 62 mL/min >60 [facility] Comment on above: GFR Calc Estimated GFR (MDRD) Non-Af Amer 52 mL/min >60 [facility] Comment on above: Non- GFR Calc Platelets bldOrdered By: [facility] on 05-06-2022 Platelets (Bld) [#/Vol] 192 10*3/uL 150-450 [facility] Serum or plasma calcium yulia urement (mass/volume)Ordered By: [facility] on 05-06-2022 Calcium [Mass/Vol] 8.8 mg/dL 8.5-10.1 [facility] Serum or plasma creatinine m easurement (mass/volume)Ordered By: [facility] on 05-06-2022 Creatinine [Mass/Vol] 1.10 mg/dL 0.55-1.02 [facility] Comment on above: The validity of the calculated GFR & GFRAA in patients over 70 years has not been determined. Clinical correlation is essential. Serum or plasma urea nitroge n measurement (mass/volume)Ordered By: [facility] on 05-06-2022 Urea nitrogen [Mass/Vol] 19 mg/dL 7-18 [facility] Thin prep Papanicolaou smear with manual screeningOrdered By: [facility] on 05-06-2022 Thin prep Papanicolaou smear with manual screening 8 5-15 [facility] Whole blood hemoglobin A1c/t otal hemoglobin ratio (mass fraction)Ordered By: [facility] on 05-06-2022 HbA1c (Bld) [Mass fraction] 7.0 % 3.8-5.6 [facility] Comment on above: Normal < 5.7 % Predi abetic 5.7 - 6.4 % Diabetic >or= 6.5 % Please note range changes. Absolute lymphocyte counton 08-08-2021 Lymphocytes Auto (Unsp spec) [#/Vol] 2.81 10*3/uL 0.83-4.51 [facility] Work Phone: Basophil percentageon 2021 Basophils/100 WBC (Bld) 0.4 % 0-1 [facility] Work Phone: Bilirubin [Mass/Vol] 0.30 mg/dL 0.20-1.00 [facility] Work Phone: Comment on above: For patients on eltr ombopag therapy, use of Dimension [place] TBIL is not recommended. Chloride [Moles/Vol] 102 mmol/L 98-107 [facility] Work Phone: Eosinophils/100 WBC (Bld) 0.9 % 0-5 [facility] Work Phone: Glucose [Mass/Vol] 247 mg/dL 74-106 [facility] Work Phone: Comment on above: Glucose result great er than or equal to 200 mg/dLsuggests DIABETES MELLITUS per A.D.A. criteria. Neutrophils (Bld) [#/Vol] 5.0 10*3/uL 2.0-7.7 [facility] Work Phone: Neutrophils/100 WBC (Bld) 59.0 % 47-70 [facility] Work Phone: Potassium [Moles/Vol] 4.1 mmol/L 3.5-5.1 [facility] Work Phone: Protein [Mass/Vol] 7.5 g/dL 6.4-8.2 [facility] Work Phone: Sodium [Moles/Vol] 135 mmol/L 136-145 [facility] Work Phone: WBC (Bld) [#/Vol] 8.5 10*3/uL 4.4-11.0 [facility] Work Phone: Blood erythrocytes count (nu mber/volume)on 08-08-2021 RBC (Bld) [#/Vol] 4.43 10*6/uL 4.2-5.4 [facility] Work Phone: Blood hemoglobin measurement (mass/volume)on 08-08-2021 Hemoglobin (Bld) [Mass/Vol] 12.9 g/dL 12.0-15.0 [facility] Work Phone: Blood lymphocytes/100 leukoc yteson 08-08-2021 Lymphocytes/100 WBC (Bld) 33.1 % 19-41 [facility] Work Phone: [phone] Blood monocytes/100 leukocyt eson 08-08-2021 Monocytes/100 WBC (Bld) 5.7 % 0-10 [facility] Work Phone: [phone] Blood platelet mean volumeon 08-08-2021 Platelet mean volume (Bld) [Entitic vol] 10.3 fL 6.2-12.0 [facility] Work Phone: Determination of erythrocyte mean corpuscular volume (MCV)on 08-08-2021 MCV (RBC) [Entitic vol] 85.3 fL 81-99 [facility] Work Phone: Glucose Glucometer (BldC) [M ass/Vol]on 08-08-2021 Glucose [Mass/Vol] 257 mg/dL 74-106 [facility] Work Phone: Comment on above: MANAGEMENT OF PATIEN T CARE PER NURSING PROTOCOL Hematocrit Auto (Bld) [Volum e fraction]on 08-08-2021 Hematocrit (Bld) [Volume fraction] 37.8 % 37-47 [facility] Work Phone: Laboratory - Chemistry and C hemistry - challengeon 08-08-2021 ALP [Catalytic activity/Vol] 131 U/L 45-117 [facility] Work Phone: ALT [Catalytic activity/Vol] 16 U/L 13-56 [facility] Work Phone: [phone] CO2 [Moles/Vol] 25.0 mmol/L 21.0-32.0 [facility] Work Phone: [phone] Globulin (S) [Mass/Vol] 4.2 g/dL 2.2-4.2 [facility] Work Phone: [phone] Urea nitrogen/Creatinine [Mass ratio] 13.4 mg/mg 10-20 [facility] Work Phone: Laboratory - Hematology and Cell countson 08-08-2021 Erythrocyte distribution width (RBC) [Entitic vol] 41.0 fL 35.1-43.9 [facility] Work Phone: [phone] Erythrocyte distribution width (RBC) [Ratio] 13.1 % 11.6-14.6 [facility] Work Phone: [phone] Immature granulocytes/100 WBC (Bld) 0.900 % 0.0-0.9 [facility] Work Phone: [phone] Comment on above: IG% - Immature Granu locytes (promyelocytes, myelocytes and metamyelocytes) > 1% indicates that a LEFT SHIFT is Present. MCH (RBC) [Entitic mass] 29.1 pg 27.0-32.0 [facility] Work Phone: [phone] Nucleated RBC/100 WBC (Bld) [Ratio] 0 % 0-5 [facility] Work Phone: [phone] MCHC Auto (RBC) [Mass/Vol]on 08-08-2021 MCHC (RBC) [Mass/Vol] 34.1 g/dL 32-36 [facility] Work Phone: No Panel Informationon 08-08 Estimated Creatinine Clearance Calc 27.49 ml/min [facility] Work Phone: [phone] Estimated GFR (MDRD) Amer 47 mL/min >60 [facility] Work Phone: [phone] Comment on above: GFR Calc Estimated GFR (MDRD) Non-Af Amer 38 mL/min >60 [facility] Work Phone: [phone] Comment on above: Non- GFR Calc Platelets bldon 08-08-2021 Platelets (Bld) [#/Vol] 260 10*3/uL 150-450 [facility] Work Phone: [phone] Serum or plasma albumin yulia urement (mass/volume)on 08-08-2021 Albumin [Mass/Vol] 3.3 g/dL 3.2-5.0 [facility] Work Phone: Serum or plasma albumin/glob ulin mass ratioon 08-08-2021 Albumin/Globulin [Mass ratio] 0.8 {ratio} 0.9-2.4 [facility] Work Phone: Serum or plasma calcium yulia urement (mass/volume)on 08-08-2021 Calcium [Mass/Vol] 8.9 mg/dL 8.5-10.1 [facility] Work Phone: Serum or plasma creatinine m easurement (mass/volume)on 08-08-2021 Creatinine [Mass/Vol] 1.42 mg/dL 0.55-1.02 [facility] Work Phone: Comment on above: The validity of the calculated GFR & GFRAA in patients over 70 years has not been determined. Clinical correlation is essential. Serum or plasma urea nitroge n measurement (mass/volume)on 08-08-2021 Urea nitrogen [Mass/Vol] 19 mg/dL 7-18 [facility] Work Phone: Thin prep Papanicolaou smear with manual screeningon 08-08-2021 Thin prep Papanicolaou smear with manual screening 10 U/L 15-37 [facility] Work Phone: Thin prep Papanicolaou smear with manual screening 8 5-15 [facility] Work Phone: CNOVon 11-08-2020 CNOV Office Visit (GSTNOR ) LISA SHIRLEY ([id number]) 1945 F TXT Date Time Provider Department 11/08/20 11:30 AM TIFFANI BRADEN GSTCHRISTIANOR During your visit today, we recorded the following information about you: Pulse Blood pressure Weight Height 83/minute 152/59 85.7 kg 1.575 m Tiffani Braden PA-C 11/08/2020 1:06 PM Signed Throat Problem HPI Resident of [facility]. Alisha Akins present for encounter. Lisa Shirley is a 75 year old female here today for Throat Problem. Has had dysphagia with solids/liquids for the past few years. History positive for cerebellar infarction 2019. Pt includes dysphagia started prior to this. Had barium swallow at [place] 09/2020, which showed mild-moderate oropharyngeal dysphagia as well as significant esophageal retention. GI consult for endoscopy was advised. Is currently on mechanical soft diet at [place] and with diet denies choking, but admits to some regurgitation of non-digested foods. H/o esophageal dilation a few years a go which per patient did not help much. BMs are occasionally constipated, no blood. Does not believe she is having one BM daily, but is not sure. Alisha states she is not and last BM was yesterday. Takes Miralax PRN, colace daily with minimal relief. Denies current emesis. OV Dr. Salmeron 06/29/2020 Lisa Shirley is a 75 year old female who presents for Vomiting, Poor oral intake, 23 pound wt loss since Mar, and Evaluate for a colonoscopy. ? She had an episode of fall 4 months ago when she had left trimalleolar ankle fracture for which she had open reduction internal fixation 03/19/2020. She c/o- difficulty swallowing food more than 3 years ago. She says that she had upper endoscopy and had esophageal stretching but it did not help. She persists with her symptoms which although are stable. ? Following her stroke, she had dysphagia and modified barium was abnormal. She was seen by speech therapist who recommended soft mechanical diet. She admits to not liking the modified diet. She has lost 23 pounds since her illness ? She has family history of colon cancer and had last colonoscopy in June 2017 at [place], [place], which was normal. She was advised to have repeat colonoscopy in 5 years. ? ? Record Review: [facility] records reviewed Current Outpatient Medications Medication Sig - acetaminophen (TYLENOL) 500 mg tablet Take by mouth. - bisacodyl (DULCOLAX) 10 mg supp by RECTAL route. - magnesium hydroxide (MOM) 400 mg/5 mL suspension Take by mouth. - nortriptyline (PAMELOR) 10 mg capsule - OLANZapine (ZYPREXA) 5 mg tablet - potassium chloride 20 mEq TbER Take by mouth. - traZODone (DESYREL) 50 mg tablet - ALPRAZolam (XANAX) 0.25 mg tablet - docusate sodium (COLACE) 100 mg capsule Take 100 mg by mouth twice daily. - mineral oil (FLEET MINERAL OIL ENEMA) enema 133 mL by RECTAL route one time only. - ondansetron (ZOFRAN) 4 mg tablet Take by mouth every 6 hours. - insulin glargine (LANTUS) 100 unit/mL injection Inject 6 Units subcutaneously daily at bedtime. - atorvastatin (LIPITOR) 80 mg tablet 1 tablet by ORAL/FEEDING TUBE route daily at bedtime. - losartan (COZAAR) 100 mg tablet Take 1 tablet by mouth once daily. - dilTIAZem CD (CARDIZEM CD, CARTIA XT) 180 mg 24 hr capsule Take 1 capsule by mouth once daily. - polyethylene glycol 3350 (MIRALAX ORAL) Take 1 Packet by mouth once daily. - calcium carbonate (CALCIUM 600) 600 mg calcium (1,500 mg) tab Take 600 mg by mouth three times daily. No current facility-administered medications for this visit. ALLERGIES Allergen Reactions - Sofia Inhibitors Contraindication-Medical Surgical Chronic kidney disease - Actos [Pioglitazone] Intolerance - Buspar [Buspirone] Intolerance rem behavior disorder - Crestor [Rosuvastat* Unknown Sensitivity - Glimepiride Intolerance - Glipizide Intolerance - Lexapro [Escitalopr* Mental Status Change - Meloxicam Unknown - Metformin Contraindication-Medical Surgical Chronic kidney disease - Nsaids (Non-Steroid* Contraindication-Medical Surgical Chronic kidney disease - Prednisone Unknown Sensitivity - Seroquel [Quetiapin* Intolerance Social History Tobacco Use - Smoking status: Never Smoker - Smokeless tobacco: Never Used - Tobacco comment: Never smoked; Tobacco reviewed with patient 12/04/2015 Vaping Use - Vaping Use: Never used Substance Use Topics - Alcohol use: No Comment: Non-drinker - Drug use: No PAST MEDICAL HISTORY Diagnosis Date - Anxiety - Chest pain - Chronic pain sensitive to Cymbalta - Degeneration of lumbar intervertebral disc - Depression - Diabetes (HCC) - Diabetic polyneuropathy associated with type 2 diabetes mellitus (HCC) - Disorder of sacrum - Essential hypertension - Fatigue - Generalized anxiety disorder sensi to Cymbalta, etc; PREFERS XANAX only tok ok 08/25 (more content not included)... Normal [facility] Office-Progress Notes-Pr nader 11-04-2020 [facility] Office-Progress Notes-Provider Chief Complaint HTN, HLD History of Present Illness This is a follow-up visit for Mrs Shirley and She has hypertension diabetes hyperlipidemia. She seems to be doing well and apparently she had a stroke in March last year and it looks like multiple ischemic events including left MCA and right basal ganglia areas. she also complains having palpitations on and off and I would plan an event monitor to evaluate. She has no dizziness lightheadedness and she is currently using wheelchair. She can walk with a walker. Review of Systems CARDIAC: No chest pain or dyspnea or orthopnea or palpitations RESPIRATROY: No dyspnea or wheeze or hemoptysis GI: No epigastric pain or right upper quadrant pain: No nausea or vomiting EXTREMITIES: No edema of legs and no tingling or numbness Physical Exam Vitals & Measurements Systolic Blood Pressure: 132 mmHg (10/22/20 12:42:00) Diastolic Blood Pressure: 72 mmHg (10/22/20 12:42:00) Temperature Tympanic (F): 97.8 degF (10/22/20 09:20:00) Apical Heart Rate: 66 bpm (10/22/20 09:20:00) Height/Length Measured: 157 cm (10/22/20 09:20:00) Weight Measured: 86 kg (10/22/20 09:20:00) Body Mass Index Measured: 34.89 kg/m2 (10/22/20 09:20:00) Weight Measured - lbs2: 189 lb (10/22/20 09:20:00) Height/Length Measured - in2: 62 in (10/22/20 09:20:00) Body Mass Index Measured English2: 34.56 kg/m2 (10/22/20 09:20:00) BSA: 1.93 m2 (10/22/20 09:20:00) Ht/Wt Measurement Refused by Patient?2: No (10/22/20 09:20:00) Depression Screening Scores No Depression Screening data available for this encounter. Fall Risk Assessment No Falls Risk Assessment data available for this encounter. NECK: JVP is not elevated: Good carotid pulses and no bruit CVS; Normal heart sounds. No murmur and no gallop. No rub LUNGS: No rhonchi and no wheeze: Clear breath sounds ADOMEN: Benign EXTREMITIES: Good distal pulses. No edema of legs Lab Results Last Months Labs No qualifying data available. Assessment/Plan 1. Diabetes E11.9 under control 2. CVA (cerebrovascular accident) I63.9 Multiple bilateral ischemic events HTN (hypertension) I10 stable: continue amlodipine Hyperlipidemia E78.2 continue lipitor Continue current medications and follow up in six months Problem List/Past Medical History Ongoing Back pain CVA (cerebrovascular accident) Diabetes Osteoarthritis of spine Historical No qualifying data Procedure/Surgical History ENDOSCOPY: 10/31/10 COLONOSCOPY: 10/31/10 STROKE: 04/27/10 HEART CATH: 04/27/08 STRESS TEST: 04/27/08 D&C: 04/27/04 Medications acetaminophen-oxycodone 325 mg-5 mg oral tablet, 1 tabs, ORAL, DAILY, PRN Align 4 mg oral capsule, 4 mg= 1 caps, ORAL, DAILY Altace 10 mg oral capsule, 10 mg= 1 caps, ORAL, BID, Not taking amLODIPine 5 mg oral tablet, 5 mg= 1 tabs, ORAL, DAILY, 3 refills, Not taking Aspirin Low Strength, 81 mg, ORAL, DAILY Calcium 600+D oral tablet, ORAL, BID Cardizem LA 240 mg/24 hours oral tablet, extended release, 240 mg= 1 tabs, ORAL, DAILY gabapentin 100 mg oral capsule, 100 mg= 1 caps, ORAL, TID insulin glargine 100 units/mL subcutaneous solution, 6 units, Subcutaneous, DAILY Januvia 100 mg oral tablet, 100 mg= 1 tabs, ORAL, DAILY Lipitor 80 mg oral tablet, 80 mg= 1 tabs, ORAL, DAILY losartan 100 mg oral tablet, 100 mg= 1 tabs, ORAL, DAILY meclizine 12.5 mg oral tablet, ORAL, TID Metamucil, ORAL metFORMIN 500 mg oral tablet, extended release, 500 mg= 1 tabs, ORAL, DAILY nortriptyline 10 mg oral capsule, 10 mg= 1 caps, ORAL, QHS Norvasc 10 mg oral tablet, 10 mg= 1 tabs, ORAL, DAILY, Not taking potassium chloride 20 mEq oral tablet, ER = K-Dur, 20 mEq= 1 tabs, ORAL, DAILY ramipril 10 mg oral capsule, 10 mg= 1 caps, ORAL, DAILY, 3 refills, Not taking sertraline 50 mg oral tablet, ORAL, DAILY Vitamin D2 50,000 intl units (1.25 mg) oral capsule, 76804 intl_unit= 1 caps, ORAL, THURSDAY Xanax 0.5 mg oral tablet, 0.5 mg= 1 tabs, ORAL, TID, PRN zolpidem 10 mg oral tablet, 10 mg= 1 tabs, ORAL, QHS, PRN Allergies Crestor predniSONE Social History Alcohol - Denies Alcohol Use, 05/02/2014 Other CAFFEINE, 05/02/2014 Substance Abuse - Denies Substance Abuse, 05/02/2014 Tobacco Never smoker, 05/02/2014 Family History Colitis.: Brother. Colon cancer..: Mother and Father. Prostate cancer..: Brother. [facility] Patient Letteron 10-31-2020 Patient Letter (Inserted Image. Lorrie ble to display) October 31, 2020 ILSA SHIRLEY [address] [place] [address] Dear, Lisa Shirley Our office has been trying to reach you. Please call us back at your earliest convenience. At [phone]. , [facility] Ambulatory Clinical Summaryo n 10-22-2020 Ambulatory Clinical Summary LISA SHIRLEY :1945 Visit Date:10/22/2020 Ambulatory Visit Instructions Your Diagnosis A-fib Your Care Team Attending Physician - EMILY MAJOR MD Primary Care Physician - JAQUELINE ARAGON Procedures Performed COLONOSCOPY (10/31/2010) ENDOSCOPY (10/31/2010) STROKE (04/27/2010) HEART CATH (04/27/2008) STRESS TEST (04/27/2008) D&C (04/27/2004) Discharge Vitals Temperature (Tympanic) 97.8 ?F Heart Rate (Apical) 66 Height 157 cm Weight 86 kg BMI 34.89 Temperature Tympanic (F): 97.8 degF (10/22/20 09:20:00) Apical Heart Rate: 66 bpm (10/22/20 09:20:00) Height/Length Measured: 157 cm (10/22/20 09:20:00) Weight Measured: 86 kg (10/22/20 09:20:00) Body Mass Index Measured: 34.89 kg/m2 (10/22/20 09:20:00) Weight Measured - lbs2: 189 lb (10/22/20 09:20:00) Height/Length Measured - in2: 62 in (10/22/20 09:20:00) Body Mass Index Measured English2: 34.56 kg/m2 (10/22/20 09:20:00) BSA: 1.93 m2 (10/22/20 09:20:00) Ht/Wt Measurement Refused by Patient?2: No (10/22/20 09:20:00) Medications What How Much When Instructions Unchanged acetaminophen-oxycodone (acetaminophen-oxycodone 325 mg-5 mg oral tablet) 1 Tabs Oral DAILY as needed for for pain Unchanged ALPRAZolam (Xanax 0.5 mg oral tablet) 1 Tabs Oral THREE TIMES A DAY as needed for for anxiety Unchanged amLODIPine (amLODIPine 5 mg oral tablet) 1 Tabs Oral DAILY Unchanged amLODIPine (Norvasc 10 mg oral tablet) 1 Tabs Oral DAILY Unchanged aspirin (Aspirin Low Strength) 81 Milligram Oral DAILY Unchanged atorvastatin (Lipitor 80 mg oral tablet) 1 Tabs Oral DAILY Unchanged bifidobacterium infantis (Align 4 mg oral capsule) 1 Capsules Oral DAILY Unchanged calcium-vitamin D (Calcium 600+D oral tablet) Oral TWICE A DAY Unchanged dilTIAZem (Cardizem LA 240 mg/ 24 hours oral tablet, extended release) 1 Tabs Oral DAILY Unchanged ergocalciferol (Vitamin D2 50,000 intl units (1.25 mg) oral capsule) 1 Capsules Oral THURSDAY Unchanged gabapentin (gabapentin 100 mg oral capsule) 1 Capsules Oral THREE TIMES A DAY Unchanged insulin glargine (insulin glargine 100 units/ mL subcutaneous solution) 6 Units Subcutaneous DAILY Unchanged losartan (losartan 100 mg oral tablet) 1 Tabs Oral DAILY Unchanged meclizine = Antivert (meclizine 12.5 mg oral tablet) Oral THREE TIMES A DAY Unchanged metFORMIN (metFORMIN 500 mg oral tablet, extended release) 1 Tabs Oral DAILY Unchanged nortriptyline (nortriptyline 10 mg oral capsule) 1 Capsules Oral AT BEDTIME Unchanged potassium chloride (KCL) (potassium chloride 20 mEq oral tablet, ER = K-Dur) 1 Tabs Oral DAILY Unchanged psyllium (Metamucil) Oral Unchanged ramipril (Altace 10 mg oral capsule) 1 Capsules Oral TWICE A DAY Unchanged ramipril (ramipril 10 mg oral capsule) 1 Capsules Oral DAILY Unchanged sertraline (sertraline 50 mg oral tablet) Oral DAILY Unchanged sitaGLIPtin (Januvia 100 mg oral tablet) 1 Tabs Oral DAILY Unchanged zolpidem (zolpidem 10 mg oral tablet) 1 Tabs Oral AT BEDTIME as needed for for sleep Allergies Crestor predniSONE Problems Ongoing - Any problem that you are currently receiving treatment for. Back pain Osteoarthritis of spine Common Emergency Awareness Tips IS IT A STROKE? Act FAST and Check for these signs: FACE Does the face look uneven? ARM Does one arm drift down? SPEECH Does their speech sound strange? TIME Call at any sign of stroke Heart Attack Signs Chest discomfort: Most heart attacks involve discomfort in the center of the chest and lasts more than a few minutes, or goes away and comes back. It can feel like uncomfortable pressure, squeezing, fullness or pain. Discomfort in upper body: Symptoms can include pain or discomfort in one or both arms, back, neck, jaw or stomach. Shortness of breath: With or without discomfort. Other signs: Breaking out in a cold sweat, nausea, or lightheaded. Remember, MINUTES DO MATTER. If you experience any of these heart attack warning signs, call to get immediate medical attention! Normal [facility] CNOVon 06-29-2020 CNOV Office Visit (GSTNOR ) LISA SHIRLEY ([id number]) 1945 F TXT Date Time Provider Department 06/29/20 2:00 PM KATIA SALMERON During your visit today, we recorded the following information about you: Pulse Blood pressure Weight Height 76/minute 134/82 87.1 kg 1.588 m Katia Salmeron MD 06/29/2020 3:09 PM Signed HPI:Lisa Shirley is a 75 year old female who presents for Vomiting, Poor oral intake, 23 pound wt loss since Mar, and Evaluate for a colonoscopy. She had an episode of fall 4 months ago when she had left trimalleolar ankle fracture for which she had open reduction internal fixation 03/19/2020. She c/o- difficulty swallowing food more than 3 years ago. She says that she had upper endoscopy and had esophageal stretching but it did not help. She persists with her symptoms which although are stable. Following her stroke, she had dysphagia and modified barium was abnormal. She was seen by speech therapist who recommended soft mechanical diet. She admits to not liking the modified diet. She has lost 23 pounds since her illness She has family history of colon cancer and had last colonoscopy in June 2017 at [place], [place], which was normal. She was advised to have repeat colonoscopy in 5 years. PAST MEDICAL HISTORY Diagnosis Date - Anxiety - Chest pain - Chronic pain sensitive to Cymbalta - Degeneration of lumbar intervertebral disc - Depression - Diabetes (HCC) - Diabetic polyneuropathy associated with type 2 diabetes mellitus (HCC) - Disorder of sacrum - Essential hypertension - Fatigue - Generalized anxiety disorder sensi to Cymbalta, etc; PREFERS XANAX only tok ok 09/08 - History of cerebrovascular accident - Hyperlipidemia - Hypertension - IBS (irritable bowel syndrome) - Idiopathic osteoporosis - Insomnia - Low back pain - Lumbar radiculopathy - Major depressive disorder - Morbid obesity (HCC) BMI 47 - Neuropathy - Obstructive sleep apnea syndrome - Osteoporosis - Panic state as acute reaction to stress - Sleep disorder - Stroke (HCC) - 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) - Vitamin B12 deficiency (non anemic) - Vitamin D deficiency PAST SURGICAL HISTORY Procedure Laterality Date - CHOLECYSTECTOMY HX - COLONOSCOPY usually had some polyps 2008 - PICC LINE INSERTION (PICC TEAM) ([place]) 03/12/2020 Allergies: ALLERGIES Allergen Reactions - Sofia Inhibitors Contraindication-Medical Surgical Chronic kidney disease - Actos [Pioglitazone] Intolerance - Buspar [Buspirone] Intolerance rem behavior disorder - Crestor [Rosuvastat* Unknown Sensitivity - Glimepiride Intolerance - Glipizide Intolerance - Lexapro [Escitalopr* Mental Status Change - Meloxicam Unknown - Metformin Contraindication-Medical Surgical Chronic kidney disease - Nsaids (Non-Steroid* Contraindication-Medical Surgical Chronic kidney disease - Prednisone Unknown Sensitivity - Seroquel [Quetiapin* Intolerance Medications: acetaminophen (TYLENOL) 500 mg tablet Take by mouth. bisacodyl (DULCOLAX) 10 mg supp by RECTAL route. magnesium hydroxide (MOM) 400 mg/5 mL suspension Take by mouth. nortriptyline (PAMELOR) 10 mg capsule OLANZapine (ZYPREXA) 5 mg tablet potassium chloride 20 mEq TbER Take by mouth. traZODone (DESYREL) 50 mg tablet ALPRAZolam (XANAX) 0.25 mg tablet docusate sodium (COLACE) 100 mg capsule Take 100 mg by mouth twice daily. mineral oil (FLEET MINERAL OIL ENEMA) enema 133 mL by RECTAL route one time only. ondansetron (ZOFRAN) 4 mg tablet Take by mouth every 6 hours. atorvastatin (LIPITOR) 80 mg tablet 1 tablet by ORAL/FEEDING TUBE route daily at bedtime. losartan (COZAAR) 100 mg tablet Take 1 tablet by mouth once daily. dilTIAZem CD (CARDIZEM CD, CARTIA XT) 180 mg 24 hr capsule Take 1 capsule by mouth once daily. polyethylene glycol 3350 (MIRALAX ORAL) Take 1 Packet by mouth once daily. calcium carbonate (CALCIUM 600) 600 mg calcium (1,500 mg) tab Take 600 mg by mouth three times daily. FAMILY HISTORY Problem Relation Age of Onset - Colon Cancer Father - Cancer Father - other (Lung cancer) Mother - other (Diverticulitis) Brother Employer And Job Title: None on file Years Of Education Completed: Not specified Marital Status: Social History Tobacco Use - Smoking status: Never Smoker - Smokeless tobacco: Never Used - Tobacco comment: Never smoked; Tobacco reviewed with patient 12/04/2015 Substance Use Topics - Alcohol use: No Comment: Non-drinker - Drug use: No Review of Systems: Review of Systems Constitutional: Positive for unexpected weight change. Gastrointestinal: Positive for nausea and vomiting. I have confirmed and edited as necessary, the PFSH and ROS obtained by others. Hemoglobin (g/dL) Date Value 03/21/2020 11.1 09/07/2017 12.8 HGB (g/dL) Date Value 11 (more content not included)... Normal [facility] CNPNon 06-29-2020 CNPN Telephone (ASCNOR) LISA SHIRLEY ([id number]) 1945 F TXT Date Time Provider Department 06/29/20 KATIA SALMERON During your visit today, we recorded the following information about you: MAKENNA ROBLES, RN, RN 06/29/2020 2:44 PM Signed Pt came into the center slightly confused, poor historian. Called assisted, [facility], spoke to nurse. Stated pt has had a 23# wt loss since March, will eat 100% of fast food, but only 50% of kitchen food. Emesis after eating/drinking is better. Pt is anxious at times. Stating pt may need a colonoscopy. Allergies As of Date: 06/29/2020 Noted Allergy Reaction SOFIA INHIBITORS 02/04/2019 15 - Contraindication-Medical Alm[place]* Comments: Chronic kidney disease ACTOS (PIOGLITAZONE) 11/25/2018 5 - Intolerance BUSPAR (BUSPIRONE) 11/25/2018 5 - Intolerance Comments: rem behavior disorder CRESTOR (ROSUVASTATIN CALCIUM) 11/03/2010 16 - Unknown Comments: Sensitivity GLIMEPIRIDE 08/03/2018 5 - Intolerance GLIPIZIDE 08/03/2018 5 - Intolerance LEXAPRO (ESCITALOPRAM OXALATE) 09/07/2018 1 - Mental Status Change MELOXICAM 12/17/2015 16 - Unknown METFORMIN 08/03/2018 15 - Contraindication-Medical Almendarez* Comments: Chronic kidney disease NSAIDS (NON-STEROIDAL ANTI-INFLAM*11/25/2018 15 - Contraindication-Medical Almendarez* Comments: Chronic kidney disease PREDNISONE 11/03/2010 16 - Unknown Comments: Sensitivity SEROQUEL (QUETIAPINE) 12/28/2018 5 - Intolerance Date Reviewed: 06/29/2020 Reviewed by: Ema Carr LPN - Fully Assessed Reason for Visit: Pre-Op Exam [87] Cmt: Called assisted for addtitional information for office visit Prescriptions as of 06/29/2020 Sig: ACETAMINOPHEN 500 MG TABLET Take by mouth. BISACODYL 10 MG RECTAL SUPPOS* by RECTAL route. MAGNESIUM HYDROXIDE 400 MG/5 * Take by mouth. NORTRIPTYLINE 10 MG CAPSULE OLANZAPINE 5 MG TABLET POTASSIUM CHLORIDE ER 20 MEQ * Take by mouth. TRAZODONE 50 MG TABLET ALPRAZOLAM 0.25 MG TABLET DOCUSATE SODIUM 100 MG CAPSULE Take 100 mg by mouth twice da* MINERAL OIL ENEMA 133 mL by RECTAL route one ti* ONDANSETRON HCL 4 MG TABLET Take by mouth every 6 hours. ATORVASTATIN 80 MG TABLET 1 tablet by ORAL/FEEDING TUBE* LOSARTAN 100 MG TABLET Take 1 tablet by mouth once d* DILTIAZEM SR 180 MG 24 HR CAP Take 1 capsule by mouth once * MIRALAX ORAL Take 1 Packet by mouth once d* CALCIUM CARBONATE 600 MG CALC* Take 600 mg by mouth three ti* Problem List As Of Date 06/29/2020 Noted Resolved Chronic bilateral low back pain with right-side*09/13/2015 02/26/2018 Lumbar degenerative disc disease [M51.36] 09/13/2015 Sleep disorder [G47.9] 05/30/2016 Hypertension [I10] 05/26/2016 Anxiety [F41.9] 05/26/2016 Depression [F32.9] 05/26/2016 Idiopathic osteoporosis [M81.8] 01/23/2017 Essential hypertension, malignant [I10] 05/26/2016 06/04/2016 Essential hypertension [I10] 06/04/2016 More... Insomnia [G47.00] 06/04/2016 Type 2 diabetes mellitus with diabetic neuropat*06/04/2016 More... Neuropathy associated with endocrine disorder (*06/04/2016 Malaise and fatigue [R53.81, R53.83] 06/04/2016 Onychomycosis [B35.1] 09/21/2016 08/11/2018 SEE (generalized anxiety disorder) [F41.1] 11/05/2016 More... Dysphagia [R13.10] 11/05/2016 More... Dizziness [R42] 02/16/2017 02/26/2018 Osteoporosis without current pathological fract*04/07/2017 Migraine without aura and without status migrai*04/07/2017 Irritable bowel syndrome with diarrhea [K58.0] 06/30/2017 Chronic kidney disease, stage 2, mildly decreas*07/27/2017 09/01/2017 Obesity, Class III, BMI >= 40 E66.01 [E66.01] 08/16/2017 TIA (transient ischemic attack) [G45.9] 09/05/2017 10/02/2017 More... More... Neck pain [M54.2] 02/04/2018 Chronic kidney disease, stage 3, mod decreased *08/03/2018 More... Recurrent major depressive disorder, in partial*08/11/2018 Vitamin D deficiency [E55.9] 09/07/2018 GERD without esophagitis [K21.9] 12/28/2018 Coronary artery disease involving sitka thrasher*02/04/2019 Other constipation [K59.09] 06/19/2019 Acute right MCA stroke (HCC) [I63.511] 03/08/2020 More... Acute kidney injury superimposed on chronic kid*03/09/2020 More... Sinus tachycardia [R00.0] 03/09/2020 More... Rhabdomyolysis [M62.82] 03/09/2020 03/11/2020 More... Fall [W19.XXXA] 03/09/2020 More... Diabetic ketoacidosis without coma associated w*03/09/2020 03/11/2020 More... Leukocytosis [D72.829] 03/09/2020 More... Fever [R50.9] 03/09/2020 More... Elevated troponin [R77.8] 03/09/2020 More... Closed left ankle fracture [S82.892A] 03/09/2020 More... Respiratory tract infection due to COVID-19 vir*03/11/2020 Obesity, Class II, BMI 35-39.9 [E66.9] 03/19/2020 Encounter Status:Closed by DEPP MISSILE CONTROL PILOT, MAKENNA on 06/29/20 Normal [facility] PROGRESSon 05-27-2020 PROGRESS HNO ID: [id number] Author: Leland Herrera Service: ? Author Type: Physician Type: Progress Notes Filed: 05/27/2020 12:03 PM Note Text: ORTHOPAEDIC OFFICE NOTE CHIEF COMPLAINT: left ankle injury HISTORY OF PRESENT ILLNESS: Lisa Shirley is a 74 year old female who presents for post-operative evaluation of a left trimalleolar ankle fracture and syndesmosis injury stabilized with open reduction internal fixation 03/19/2020. The patient has missed all prior follow-up visits due to SNF failure to coordinate. She did obtain films 05/10/2020 when left at the radiology department in [place] rather than being transported to the office. Patient answers some questions appropriately; she is unaccompanied by caregiver. Complains of nausea, no left ankle pain complaints. Indicates she has not ambulated on the extremity. Her splint was just removed one week ago and sutures removed one week ago. No new injury mechanisms. Reviewed nursing note and current pain scale. PAST MEDICAL HISTORY Diagnosis Date - Anxiety - Chest pain - Chronic pain sensitive to Cymbalta - Degeneration of lumbar intervertebral disc - Depression - Diabetes (HCC) - Diabetic polyneuropathy associated with type 2 diabetes mellitus (HCC) - Disorder of sacrum - Essential hypertension - Fatigue - Generalized anxiety disorder sensi to Cymbalta, etc; PREFERS XANAX only tok ok 09/08 - History of cerebrovascular accident - Hyperlipidemia - Hypertension - IBS (irritable bowel syndrome) - Idiopathic osteoporosis - Insomnia - Low back pain - Lumbar radiculopathy - Major depressive disorder - Morbid obesity (HCC) BMI 47 - Neuropathy - Obstructive sleep apnea syndrome - Osteoporosis - Panic state as acute reaction to stress - Sleep disorder - Stroke (HCC) - 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) - Vitamin B12 deficiency (non anemic) - Vitamin D deficiency PAST SURGICAL HISTORY Procedure Laterality Date - CHOLECYSTECTOMY HX - COLONOSCOPY usually had some polyps 2008 - PICC LINE INSERTION (PICC TEAM) ([place]) 03/12/2020 FAMILY HISTORY Problem Relation Age of Onset - Colon Cancer Father - Cancer Father - other (Lung cancer) Mother - other (Diverticulitis) Brother Social History Tobacco Use - Smoking status: Never Smoker - Smokeless tobacco: Never Used - Tobacco comment: Never smoked; Tobacco reviewed with patient 12/04/2015 Substance Use Topics - Alcohol use: No Comment: Non-drinker - Drug use: No MEDICATIONS: Current Outpatient Medications Medication Sig - ALPRAZolam (XANAX) 0.5 mg tablet Take 1 tablet by mouth three times daily as needed for Anxiety for up to 7 days. - atorvastatin (LIPITOR) 80 mg tablet 1 tablet by ORAL/FEEDING TUBE route daily at bedtime. - losartan (COZAAR) 100 mg tablet Take 1 tablet by mouth once daily. - dilTIAZem CD (CARDIZEM CD, CARTIA XT) 180 mg 24 hr capsule Take 1 capsule by mouth once daily. - melatonin 10 mg tab Take 1 tablet by mouth daily at bedtime. - zolpidem (AMBIEN) 5 mg tablet Take 1 tablet by mouth at bedtime as needed (insomnia) for up to 7 days. - insulin glargine (LANTUS SOLOSTAR U-100 INSULIN) 100 unit/mL (3 mL) Inject 6 Units subcutaneously every morning. Inject 6 Units subcutaneously as directed - glipiZIDE (GLUCOTROL) 5 mg tablet Take 1 tablet by mouth twice daily before meals. - sitaGLIPtin (JANUVIA) 100 mg tablet Take 1 tablet by mouth once daily. - polyethylene glycol 3350 (MIRALAX ORAL) Take 1 Packet by mouth once daily. - calcium carbonate (CALCIUM 600) 600 mg calcium (1,500 mg) tab Take 600 mg by mouth three times daily. - BIFIDOBACTERIUM INFANTIS (ALIGN ORAL) Take 1 tablet by mouth once daily. No current facility-administered medications for this visit. ALLERGIES: ALLERGIES Allergen Reactions - Sofia Inhibitors Contraindication-Medical Surgical Chronic kidney disease - Actos [Pioglitazone] Intolerance - Buspar [Buspirone] Intolerance rem behavior disorder - Crestor [Rosuvastat* Unknown Sensitivity - Glimepiride Intolerance - Glipizide Intolerance - Lexapro [Escitalopr* Mental Status Change - Meloxicam Unknown - Metformin Contraindication-Medical Surgical Chronic kidney disease - Nsaids (Non-Steroid* Contraindication-Medical Surgical Chronic kidney disease - Prednisone Unknown Sensitivity - Seroquel [Quetiapin* Intolerance PHYSICAL EXAMINATION: Resp 15 Ht 5' 3" (1.60m) Wt 200 lb (90.7kg) BMI 35.44 kg/(m2). General Appearance: Well appearing, alert, in no acute distress, well-hydrated, well nourished. Grunting secondary to nausea, with no active or recent emesis. Skin: Skin color, texture, turgor normal, no suspicious rashes or lesions. Extremities: Left ankle medial and lateral incisions healed with a few tiny dry scabs. All sutures out. Global skin peeling with soft skin wrinkling. No erythema. Left leg and foot compartments soft and compressible. Demonstrates short arc active foot DF/PF with 3/3/5 strength. Peripheral Pulses: Normal. Neurologic: Intact light touch sensation left lower extremity, stocking distribution present but diminished. IMAGES: No results found for this or any previous visit (from the past 36 hour(s)). Images 05/10/2020 evaluated and reviewed with patient, demonstrating no change in hardware position and a maintained ankle mortise. No new fracture identified. ASSESSMENT AND PLAN: 1. Closed fracture of left ankle with routine healing, subsequent encounter - ICD9: V54.19, ICD10: S82.892D Functional Plan: Weight bearing as tolerated with no range of motion restrictions left lower extremity. Assistance Devices: None. Physical/Occupational Therapy: Administered above instructions to facility. Wound Care: Administered instructions for daily soap and water washes again to facility; has not been performed as surgical scrub still on patient's toes. Patient indicates the extremity has not been washed at facility. Pain Control: No change in pain regimen recommended this office visit. Fragility Fracture: On supplementation. Additional: None. Return in about 6 weeks (around 07/05/2020). [facility] Office Visit (AGPOB1 ) LISA SHIRLEY ([id number]) 1945 F TXT Date Time Provider Department 05/24/20 2:00 PM LELAND HERRERA AGPOB1 During your visit today, we recorded the following information about you: Respiration Weight Height 15/minute 90.7 kg 1.6 m Leland Herrera MD 05/27/2020 12:03 PM Signed ORTHOPAEDIC OFFICE NOTE CHIEF COMPLAINT: left ankle injury HISTORY OF PRESENT ILLNESS: Lisa Shirley is a 74 year old female who presents for post-operative evaluation of a left trimalleolar ankle fracture and syndesmosis injury stabilized with open reduction internal fixation 03/19/2020. The patient has missed all prior follow-up visits due to SNF failure to coordinate. She did obtain films 05/10/2020 when left at the radiology department in [place] rather than being transported to the office. Patient answers some questions appropriately; she is unaccompanied by caregiver. Complains of nausea, no left ankle pain complaints. Indicates she has not ambulated on the extremity. Her splint was just removed one week ago and sutures removed one week ago. No new injury mechanisms. Reviewed nursing note and current pain scale. PAST MEDICAL HISTORY Diagnosis Date - Anxiety - Chest pain - Chronic pain sensitive to Cymbalta - Degeneration of lumbar intervertebral disc - Depression - Diabetes (HCC) - Diabetic polyneuropathy associated with type 2 diabetes mellitus (HCC) - Disorder of sacrum - Essential hypertension - Fatigue - Generalized anxiety disorder sensi to Cymbalta, etc; PREFERS XANAX only tok ok 09/08 - History of cerebrovascular accident - Hyperlipidemia - Hypertension - IBS (irritable bowel syndrome) - Idiopathic osteoporosis - Insomnia - Low back pain - Lumbar radiculopathy - Major depressive disorder - Morbid obesity (HCC) BMI 47 - Neuropathy - Obstructive sleep apnea syndrome - Osteoporosis - Panic state as acute reaction to stress - Sleep disorder - Stroke (HCC) - 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) - Vitamin B12 deficiency (non anemic) - Vitamin D deficiency PAST SURGICAL HISTORY Procedure Laterality Date - CHOLECYSTECTOMY HX - COLONOSCOPY usually had some polyps 2008 - PICC LINE INSERTION (PICC TEAM) ([place]) 03/12/2020 FAMILY HISTORY Problem Relation Age of Onset - Colon Cancer Father - Cancer Father - other (Lung cancer) Mother - other (Diverticulitis) Brother Social History Tobacco Use - Smoking status: Never Smoker - Smokeless tobacco: Never Used - Tobacco comment: Never smoked; Tobacco reviewed with patient 12/04/2015 Substance Use Topics - Alcohol use: No Comment: Non-drinker - Drug use: No MEDICATIONS: Current Outpatient Medications Medication Sig - ALPRAZolam (XANAX) 0.5 mg tablet Take 1 tablet by mouth three times daily as needed for Anxiety for up to 7 days. - atorvastatin (LIPITOR) 80 mg tablet 1 tablet by ORAL/FEEDING TUBE route daily at bedtime. - losartan (COZAAR) 100 mg tablet Take 1 tablet by mouth once daily. - dilTIAZem CD (CARDIZEM CD, CARTIA XT) 180 mg 24 hr capsule Take 1 capsule by mouth once daily. - melatonin 10 mg tab Take 1 tablet by mouth daily at bedtime. - zolpidem (AMBIEN) 5 mg tablet Take 1 tablet by mouth at bedtime as needed (insomnia) for up to 7 days. - insulin glargine (LANTUS SOLOSTAR U-100 INSULIN) 100 unit/mL (3 mL) Inject 6 Units subcutaneously every morning. Inject 6 Units subcutaneously as directed - glipiZIDE (GLUCOTROL) 5 mg tablet Take 1 tablet by mouth twice daily before meals. - sitaGLIPtin (JANUVIA) 100 mg tablet Take 1 tablet by mouth once daily. - polyethylene glycol 3350 (MIRALAX ORAL) Take 1 Packet by mouth once daily. - calcium carbonate (CALCIUM 600) 600 mg calcium (1,500 mg) tab Take 600 mg by mouth three times daily. - BIFIDOBACTERIUM INFANTIS (ALIGN ORAL) Take 1 tablet by mouth once daily. No current facility-administered medications for this visit. ALLERGIES: ALLERGIES Allergen Reactions - Sofia Inhibitors Contraindication-Medical Surgical Chronic kidney disease - Actos [Pioglitazone] Intolerance - Buspar [Buspirone] Intolerance rem behavior disorder - Crestor [Rosuvastat* Unknown Sensitivity - Glimepiride Intolerance - Glipizide Intolerance - Lexapro [Escitalopr* Mental Status Change - Meloxicam Unknown - Metformin Contraindication-Medical Surgical Chronic kidney disease - Nsaids (Non-Steroid* Contraindication-Medical Surgical Chronic kidney disease - Prednisone Unknown Sensitivity - Seroquel [Quetiapin* Intolerance PHYSICAL EXAMINATION: Resp 15 Ht 5' 3" (1.60m) Wt 200 lb (90.7kg) BMI 35.44 kg/(m2). General Appearance: Well appearing, alert, in no acute distress, well-hydrated, well nourished. Grunting secondary to nausea, with no active or recent emesis. Skin: Skin color, texture, turgor normal, no suspicious rashes or lesions. Extremities: Left ankle medial and lateral incisions healed with a few tiny dry scabs. All sutures out. Global skin peeling with soft skin wrinkling. No erythema. Left leg and foot compartments soft and compressible. Demonstrates short arc active foot DF/PF with 3/3/5 strength. Peripheral Pulses: Normal. Neurologic: Intact light touch sensation left lower extremity, stocking distribution present but diminished. IMAGES: No results found for this or any previous visit (from the past 36 hour(s)). Images 05/10/2020 evaluated and reviewed with patient, demonstrating no change in hardware position and a maintained ankle mortise. No new fracture identified. ASSESSMENT AND PLAN: 1. Closed fracture of left ankle with routine healing, subsequent encounter - ICD9: V54.19, ICD10: S82.892D Functional Plan: Weight bearing as tolerated with no range of motion restrictions left lower extremity. Assistance Devices: None. Physical/Occupational Therapy: Administered above instructions to facility. Wound Care: Administered instructions for daily soap and water washes again to facility; has not been performed as surgical scrub still on patient's toes. Patient indicates the extremity has not been washed at facility. Pain Control: No change in pain regimen recommended this office visit. Fragility Fracture: On supplementation. Additional: None. Return in about 6 weeks (around 07/05/2020). Leland Herrera MD Referring Provider: [facility] [[id number]] Allergies As of Date: 05/24/2020 Noted Allergy Reaction SOFIA INHIBITORS 02/04/2019 15 - Contraindication-Medical Almendarez* Comments: Chronic kidney disease ACTOS (PIOGLITAZONE) 11/25/2018 5 - Intolerance BUSPAR (BUSPIRONE) 11/25/2018 5 - Intolerance Comments: rem behavior disorder CRESTOR (ROSUVASTATIN CALCIUM) 11/03/2010 16 - Unknown Comments: Sensitivity GLIMEPIRIDE 08/03/2018 5 - Intolerance GLIPIZIDE 08/03/2018 5 - Intolerance LEXAPRO (ESCITALOPRAM OXALATE) 09/07/2018 1 - Mental Status Change MELOXICAM 12/17/2015 16 - Unknown METFORMIN 08/03/2018 15 - Contraindication-Medical Almendarez* Comments: Chronic kidney disease NSAIDS (NON-STEROIDAL ANTI-INFLAM*11/25/2018 15 - Contraindication-Medical Almendarez* Comments: Chronic kidney disease PREDNISONE 11/03/2010 16 - Unknown Comments: Sensitivity SEROQUEL (QUETIAPINE) 12/28/2018 5 - Intolerance Date Reviewed: 05/24/2020 Reviewed by: Geni ([facility]) Robson - Fully Assessed Reason for Visit: Post Op [174] Primary Visit Diagnosis:Closed fracture of left ankle with routine healing, subsequent encounter [S82.762D] Prescriptions as of 05/24/2020 Sig: ALPRAZOLAM 0.5 MG TABLET Take 1 tablet by mouth three * ATORVASTATIN 80 MG TABLET 1 tablet by ORAL/FEEDING TUBE* LOSARTAN 100 MG TABLET Take 1 tablet by mouth once d* DILTIAZEM SR 180 MG 24 HR CAP Take 1 capsule by mouth once * MELATONIN 10 MG TABLET Take 1 tablet by mouth daily * ZOLPIDEM 5 MG TABLET Take 1 tablet by mouth at bed* LANTUS SOLOSTAR U-100 INSULIN* Inject 6 Units subcutaneously* GLIPIZIDE 5 MG TABLET Take 1 tablet by mouth twice * SITAGLIPTIN 100 MG TABLET Take 1 tablet by mouth once d* MIRALAX ORAL Take 1 Packet by mouth once d* CALCIUM CARBONATE 600 MG CALC* Take 600 mg by mouth three ti* ALIGN ORAL Take 1 tablet by mouth once d* Problem List As Of Date 05/24/2020 Noted Resolved Chronic bilateral low back pain with right-side*09/13/2015 02/26/2018 Lumbar degenerative disc disease [M51.36] 09/13/2015 Sleep disorder [G47.9] 05/30/2016 Hypertension [I10] 05/26/2016 Anxiety [F41.9] 05/26/2016 Depression [F32.9] 05/26/2016 Idiopathic osteoporosis [M81.8] 01/23/2017 Essential hypertension, malignant [I10] 05/26/2016 06/04/2016 Essential hypertension [I10] 06/04/2016 More... Insomnia [G47.00] 06/04/2016 Type 2 diabetes mellitus with diabetic neuropat*06/04/2016 More... Neuropathy associated with endocrine disorder (*06/04/2016 Malaise and fatigue [R53.81, R53.83] 06/04/2016 Onychomycosis [B35.1] 09/21/2016 08/11/2018 SEE (generalized anxiety disorder) [F41.1] 11/05/2016 More... Dysphagia [R13.10] 11/05/2016 More... Dizziness [R42] 02/16/2017 02/26/2018 Osteoporosis without current pathological fract*04/07/2017 Migraine without aura and without status migrai*04/07/2017 Irritable bowel syndrome with diarrhea [K58.0] 06/30/2017 Chronic kidney disease, stage 2, mildly decreas*07/27/2017 09/01/2017 Obesity, Class III, BMI >= 40 E66.01 [E66.01] 08/16/2017 TIA (transient ischemic attack) [G45.9] 09/05/2017 10/02/2017 More... More... Neck pain [M54.2] 02/04/2018 Chronic kidney disease, stage 3, mod decreased *08/03/2018 More... Recurrent major depressive disorder, in partial*08/11/2018 Vitamin D deficiency [E55.9] 09/07/2018 GERD without esophagitis [K21.9] 12/28/2018 Coronary artery disease involving sitka thrasher*02/04/2019 Other constipation [K59.09] 06/19/2019 Acute right MCA stroke (HCC) [I63.511] 03/08/2020 More... Acute kidney injury superimposed on chronic kid*03/09/2020 More... Sinus tachycardia [R00.0] 03/09/2020 More... Rhabdomyolysis [M62.82] 03/09/2020 03/11/2020 More... Fall [W19.XXXA] 03/09/2020 More... Diabetic ketoacidosis without coma associated w*03/09/2020 03/11/2020 More... Leukocytosis [D72.829] 03/09/2020 More... Fever [R50.9] 03/09/2020 More... Elevated troponin [R77.8] 03/09/2020 More... Closed left ankle fracture [S82.892A] 03/09/2020 More... Respiratory tract infection due to COVID-19 vir*03/11/2020 Obesity, Class II, BMI 35-39.9 [E66.9] 03/19/2020 Disposition: Return in about 6 weeks (around 07/05/2020). Follow-up and Disposition History Recorded Encounter Status:Closed by LELAND HERRERA MD on 05/27/20 [facility] 05-17-2020 CNPN Telephone (AGPOB1) LISA SHIRLEY ([id number]) 1945 F TXT Date Time Provider Department 05/17/20 LELAND HERRERA AGPOB1 During your visit today, we recorded the following information about you: Kait Donahue 05/17/2020 8:34 AM Signed Patient was scheduled to see you in office yesterday. Her Facility, [place] [id number] , called to see why she wasn't sent home with an orders or updates. Looking in the system it appears the patient somehow ended up in the Radiology department at [facility] instead our office. They were able to complete her x-rays in [facility]. The facility would like to know an updated WB and ROM status. Kait Rolonar May 17, 2020 8:33 AM Kait Godfrey 05/17/2020 9:12 AM Signed This patient has missed multiple visits and still has a splint on by imaging. The splint must be removed, all sutures removed and the extremity cleaned daily with soap and water. She may begin weight bearing as tolerated in a walker boot. Kait Godfrey 05/17/2020 9:12 AM Signed Called and informed the nurse, Leidy, of Dr. Herrera's response. Kait Donahue May 17, 2020 9:11 AM Allergies As of Date: 05/17/2020 Noted Allergy Reaction SOFIA INHIBITORS 02/04/2019 15 - Contraindication-Medical Almendarez* Comments: Chronic kidney disease ACTOS (PIOGLITAZONE) 11/25/2018 5 - Intolerance BUSPAR (BUSPIRONE) 11/25/2018 5 - Intolerance Comments: rem behavior disorder CRESTOR (ROSUVASTATIN CALCIUM) 11/03/2010 16 - Unknown Comments: Sensitivity GLIMEPIRIDE 08/03/2018 5 - Intolerance GLIPIZIDE 08/03/2018 5 - Intolerance LEXAPRO (ESCITALOPRAM OXALATE) 09/07/2018 1 - Mental Status Change MELOXICAM 12/17/2015 16 - Unknown METFORMIN 08/03/2018 15 - Contraindication-Medical Almendarez* Comments: Chronic kidney disease NSAIDS (NON-STEROIDAL ANTI-INFLAM*11/25/2018 15 - Contraindication-Medical Almendarez* Comments: Chronic kidney disease PREDNISONE 11/03/2010 16 - Unknown Comments: Sensitivity SEROQUEL (QUETIAPINE) 12/28/2018 5 - Intolerance Date Reviewed: 03/21/2020 Reviewed by: Pham Jean-BaptisteRn) JONNY Escalera - Fully Assessed Reason for Visit: [facility] Orders [1309] Prescriptions as of 05/17/2020 Sig: ALPRAZOLAM 0.5 MG TABLET Take 1 tablet by mouth three * ATORVASTATIN 80 MG TABLET 1 tablet by ORAL/FEEDING TUBE* LOSARTAN 100 MG TABLET Take 1 tablet by mouth once d* DILTIAZEM SR 180 MG 24 HR CAP Take 1 capsule by mouth once * MELATONIN 10 MG TABLET Take 1 tablet by mouth daily * ZOLPIDEM 5 MG TABLET Take 1 tablet by mouth at bed* LANTUS SOLOSTAR U-100 INSULIN* Inject 6 Units subcutaneously* GLIPIZIDE 5 MG TABLET Take 1 tablet by mouth twice * SITAGLIPTIN 100 MG TABLET Take 1 tablet by mouth once d* MIRALAX ORAL Take 1 Packet by mouth once d* CALCIUM CARBONATE 600 MG CALC* Take 600 mg by mouth three ti* ALIGN ORAL Take 1 tablet by mouth once d* Problem List As Of Date 05/17/2020 Noted Resolved Chronic bilateral low back pain with right-side*09/13/2015 02/26/2018 Lumbar degenerative disc disease [M51.36] 09/13/2015 Sleep disorder [G47.9] 05/30/2016 Hypertension [I10] 05/26/2016 Anxiety [F41.9] 05/26/2016 Depression [F32.9] 05/26/2016 Idiopathic osteoporosis [M81.8] 01/23/2017 Essential hypertension, malignant [I10] 05/26/2016 06/04/2016 Essential hypertension [I10] 06/04/2016 More... Insomnia [G47.00] 06/04/2016 Type 2 diabetes mellitus with diabetic neuropat*06/04/2016 More... Neuropathy associated with endocrine disorder (*06/04/2016 Malaise and fatigue [R53.81, R53.83] 06/04/2016 Onychomycosis [B35.1] 09/21/2016 08/11/2018 SEE (generalized anxiety disorder) [F41.1] 11/05/2016 More... Dysphagia [R13.10] 11/05/2016 More... Dizziness [R42] 02/16/2017 02/26/2018 Osteoporosis without current pathological fract*04/07/2017 Migraine without aura and without status migrai*04/07/2017 Irritable bowel syndrome with diarrhea [K58.0] 06/30/2017 Chronic kidney disease, stage 2, mildly decreas*07/27/2017 09/01/2017 Obesity, Class III, BMI >= 40 E66.01 [E66.01] 08/16/2017 TIA (transient ischemic attack) [G45.9] 09/05/2017 10/02/2017 More... More... Neck pain [M54.2] 02/04/2018 Chronic kidney disease, stage 3, mod decreased *08/03/2018 More... Recurrent major depressive disorder, in partial*08/11/2018 Vitamin D deficiency [E55.9] 09/07/2018 GERD without esophagitis [K21.9] 12/28/2018 Coronary artery disease involving sitka thrasher*02/04/2019 Other constipation [K59.09] 06/19/2019 Acute right MCA stroke (HCC) [I63.511] 03/08/2020 More... Acute kidney injury superimposed on chronic kid*03/09/2020 More... Sinus tachycardia [R00.0] 03/09/2020 More... Rhabdomyolysis [M62.82] 03/09/2020 03/11/2020 More... Fall [W19.XXXA] 03/09/2020 More... Diabetic ketoacidosis without coma associated w*03/09/2020 03/11/2020 More... Leukocytosis [D72.829] 03/09/2020 More... Fever [R50.9] 03/09/2020 More... Elevated troponin [R77.8] 03/09/2020 More... Closed left ankle fracture [S82.892A] 03/09/2020 More... Respiratory tract infection due to COVID-19 vir*03/11/2020 Obesity, Class II, BMI 35-39.9 [E66.9] 03/19/2020 Encounter Status:Closed by KAIT DONAHUE on 05/17/20 [facility] CNCOon 05-16-2020 CNCO Letter Text [facility] CNPNon 05-16-2020 CNPN Telephone (AGHWW1) LISA SHIRLEY ([id number]) 1945 F TXT Date Time Provider Department 05/16/20 LELAND HERRERA [id number] During your visit today, we recorded the following information about you: Carmina Wilbert 05/16/2020 4:26 PM Signed No Show Documentation Lisa Shirley no showed for an appointment on 05/16/19 with Leland Herrera MD at 3:15. She was scheduled for LEFT TRIMALLEOLAR ANKLE. I called and spoke with the patient regarding her missed appointment. Lisa stated the reason that she missed her appointment was because forgot about appointment . Resources discussed/offered to patient: NONE No show determined to be fault of patient: Yes This is the patients second no show in the last 12 months. Patient was NOT rescheduled. Letter mailed : Yes Is this the Third or Fourth "No Show"? No Carmina Atkins May 16, 2020 4:18 PM.PPG Allergies As of Date: 05/16/2020 Noted Allergy Reaction SOFIA INHIBITORS 02/04/2019 15 - Contraindication-Medical Almendarez* Comments: Chronic kidney disease ACTOS (PIOGLITAZONE) 11/25/2018 5 - Intolerance BUSPAR (BUSPIRONE) 11/25/2018 5 - Intolerance Comments: rem behavior disorder CRESTOR (ROSUVASTATIN CALCIUM) 11/03/2010 16 - Unknown Comments: Sensitivity GLIMEPIRIDE 08/03/2018 5 - Intolerance GLIPIZIDE 08/03/2018 5 - Intolerance LEXAPRO (ESCITALOPRAM OXALATE) 09/07/2018 1 - Mental Status Change MELOXICAM 12/17/2015 16 - Unknown METFORMIN 08/03/2018 15 - Contraindication-Medical Almendarez* Comments: Chronic kidney disease NSAIDS (NON-STEROIDAL ANTI-INFLAM*11/25/2018 15 - Contraindication-Medical Almendarez* Comments: Chronic kidney disease PREDNISONE 11/03/2010 16 - Unknown Comments: Sensitivity SEROQUEL (QUETIAPINE) 12/28/2018 5 - Intolerance Date Reviewed: 03/21/2020 Reviewed by: Pham Jean-BaptisteRn) JONNY Escalera - Fully Assessed Reason for Visit: No Show [1558] Prescriptions as of 05/16/2020 Sig: ALPRAZOLAM 0.5 MG TABLET Take 1 tablet by mouth three * ATORVASTATIN 80 MG TABLET 1 tablet by ORAL/FEEDING TUBE* LOSARTAN 100 MG TABLET Take 1 tablet by mouth once d* DILTIAZEM SR 180 MG 24 HR CAP Take 1 capsule by mouth once * MELATONIN 10 MG TABLET Take 1 tablet by mouth daily * ZOLPIDEM 5 MG TABLET Take 1 tablet by mouth at bed* LANTUS SOLOSTAR U-100 INSULIN* Inject 6 Units subcutaneously* GLIPIZIDE 5 MG TABLET Take 1 tablet by mouth twice * SITAGLIPTIN 100 MG TABLET Take 1 tablet by mouth once d* MIRALAX ORAL Take 1 Packet by mouth once d* CALCIUM CARBONATE 600 MG CALC* Take 600 mg by mouth three ti* ALIGN ORAL Take 1 tablet by mouth once d* Problem List As Of Date 05/16/2020 Noted Resolved Chronic bilateral low back pain with right-side*09/13/2015 02/26/2018 Lumbar degenerative disc disease [M51.36] 09/13/2015 Sleep disorder [G47.9] 05/30/2016 Hypertension [I10] 05/26/2016 Anxiety [F41.9] 05/26/2016 Depression [F32.9] 05/26/2016 Idiopathic osteoporosis [M81.8] 01/23/2017 Essential hypertension, malignant [I10] 05/26/2016 06/04/2016 Essential hypertension [I10] 06/04/2016 More... Insomnia [G47.00] 06/04/2016 Type 2 diabetes mellitus with diabetic neuropat*06/04/2016 More... Neuropathy associated with endocrine disorder (*06/04/2016 Malaise and fatigue [R53.81, R53.83] 06/04/2016 Onychomycosis [B35.1] 09/21/2016 08/11/2018 SEE (generalized anxiety disorder) [F41.1] 11/05/2016 More... Dysphagia [R13.10] 11/05/2016 More... Dizziness [R42] 02/16/2017 02/26/2018 Osteoporosis without current pathological fract*04/07/2017 Migraine without aura and without status migrai*04/07/2017 Irritable bowel syndrome with diarrhea [K58.0] 06/30/2017 Chronic kidney disease, stage 2, mildly decreas*07/27/2017 09/01/2017 Obesity, Class III, BMI >= 40 E66.01 [E66.01] 08/16/2017 TIA (transient ischemic attack) [G45.9] 09/05/2017 10/02/2017 More... More... Neck pain [M54.2] 02/04/2018 Chronic kidney disease, stage 3, mod decreased *08/03/2018 More... Recurrent major depressive disorder, in partial*08/11/2018 Vitamin D deficiency [E55.9] 09/07/2018 GERD without esophagitis [K21.9] 12/28/2018 Coronary artery disease involving sitka thrasher*02/04/2019 Other constipation [K59.09] 06/19/2019 Acute right MCA stroke (HCC) [I63.511] 03/08/2020 More... Acute kidney injury superimposed on chronic kid*03/09/2020 More... Sinus tachycardia [R00.0] 03/09/2020 More... Rhabdomyolysis [M62.82] 03/09/2020 03/11/2020 More... Fall [W19.XXXA] 03/09/2020 More... Diabetic ketoacidosis without coma associated w*03/09/2020 03/11/2020 More... Leukocytosis [D72.829] 03/09/2020 More... Fever [R50.9] 03/09/2020 More... Elevated troponin [R77.8] 03/09/2020 More... Closed left ankle fracture [S82.892A] 03/09/2020 More... Respiratory tract infection due to COVID-19 vir*03/11/2020 Obesity, Class II, BMI 35-39.9 [E66.9] 03/19/2020 Encounter Status:Closed by CARMINA ATKINS on 05/16/20 [facility] PROGRESSon 05-16-2020 PROGRESS HNO ID: [id number] Author: Nory (RtJade Benitez Service: Radiology Author Type: Motor And Generator Brush Cutter Type: Progress Notes Filed: 05/16/2020 3:46 PM Note Text: Radiology Service Progress Note PATIENT NAME: Lisa Shirley DATE OF SERVICE: May 16, 2020 TIME: 3:45 PM PATIENT IDENTITY VERIFICATION COMPLETED USING TWO (2) IDENTIFIERS: Name and Date of confirmed by patient verbally and Name and Date of confirmed by identification band. FALL SCREENING: Has the patient had 2 falls in the last year or 1 fall with injury or currently using an Ambulatory Assistive Device (Walker, Cane, Wheelchair, Crutches, etc.)? Yes, Patient High Risk for Falls What interventions were put in place to prevent falls during this visit? Offered Assistance with Transfers/Clothing PATIENT GENDER DATA: Female. status: : No status: NO. PATIENT RELEVANT IMPLANT DATA REVIEWED: Not Applicable RADIOLOGY DEPARTMENT: General X-ray: Exam(s) Completed: Lower Extremity X-Ray(s): Ankle, Left: PERIPHERAL IV DATA: Not applicable SIGNED BY: RT Fatmata May 16, 2020 3:45 PM [facility] XR ANKLE 3V AP/LAT/OBL LTon 05-16-2020 XR ANKLE 3V AP/LAT/OBL LT Final Report DATE OF EXAM: May 16 2020 3:49PM AWX [id number] - XR ANKLE 3V AP/LAT/OBL LT / PROCEDURE REASON: Closed fracture of left ankle with routine healing, subsequent encounter Physician Interpretation EXAMINATION: XR ANKLE 3V AP/LAT/OBL LT HISTORY: f/u left ankle fracture; best possible due to patient discomfort and cooperation Closed fracture of left ankle with routine healing, subsequent encounter . TECHNIQUE: XR ANKLE 3V AP/LAT/OBL LT Laterality: LEFT Number of different views (projections): 3 M: XB_1 COMPARISON: Radiograph 03/19/2020 RESULT: There is a lateral fibular fixation plate, medial malleolar screw and syndesmotic screws present. Fracture lines are not well visualized. No new fracture is seen. There may be some narrowing of the medial aspect of the tibiotalar joint. No other significant abnormality. IMPRESSION: Postoperative appearance as detailed above. Fracture lines are no longer able to be well visualized. Probable osteochondral defect of the medial talar dome, similar compared to prior radiograph. Smalltalk Developer: PSCB Transcribe Date/Time: May 16 2020 4:04P Dictated by : JULIUS ESPINAL MD This examination was interpreted and the report reviewed and electronically signed by: JULIUS ESPINAL MD on May 16 2020 4:09PM [facility] 04-06-2020 [facility] Telephone (AGPOB1) LISA SHIRLEY ([id number]) 1945 F TXT Date Time Provider Department 04/06/20 LEL[facility] HERRERA [id number] During your visit today, we recorded the following information about you: Gayathri Forte CMA 04/06/2020 8:12 AM Signed No Show Documentation Lisa Shirley no showed for an appointment on 04/05/2020 with Leland Herrera MD at 1:00pm. She was scheduled for PO. Resources discussed/offered to patient: no No show determined to be fault of patient: Yes This is the patients first no show in the last 12 months. Patient was not rescheduled. Letter mailed : yes Is this the Third or Fourth "No Show"? No Gayathri Forte CMA April 06, 2020 8:09 AM Allergies As of Date: 04/06/2020 Noted Allergy Reaction SOFIA INHIBITORS 02/04/2019 15 - Contraindication-Medical Almendarez* Comments: Chronic kidney disease ACTOS (PIOGLITAZONE) 11/25/2018 5 - Intolerance BUSPAR (BUSPIRONE) 11/25/2018 5 - Intolerance Comments: rem behavior disorder CRESTOR (ROSUVASTATIN CALCIUM) 11/03/2010 16 - Unknown Comments: Sensitivity GLIMEPIRIDE 08/03/2018 5 - Intolerance GLIPIZIDE 08/03/2018 5 - Intolerance LEXAPRO (ESCITALOPRAM OXALATE) 09/07/2018 1 - Mental Status Change MELOXICAM 12/17/2015 16 - Unknown METFORMIN 08/03/2018 15 - Contraindication-Medical Almendarez* Comments: Chronic kidney disease NSAIDS (NON-STEROIDAL ANTI-INFLAM*11/25/2018 15 - Contraindication-Medical Almendarez* Comments: Chronic kidney disease PREDNISONE 11/03/2010 16 - Unknown Comments: Sensitivity SEROQUEL (QUETIAPINE) 12/28/2018 5 - Intolerance Date Reviewed: 03/21/2020 Reviewed by: Pham (Rn) JONNY Escalera - Fully Assessed Reason for Visit: Missed Appointment [1304] Prescriptions as of 04/06/2020 Sig: ATORVASTATIN 80 MG TABLET 1 tablet by ORAL/FEEDING TUBE* LOSARTAN 100 MG TABLET Take 1 tablet by mouth once d* DILTIAZEM SR 180 MG 24 HR CAP Take 1 capsule by mouth once * ENOXAPARIN 40 MG/0.4 ML SUBCU* Inject 0.4 mL subcutaneously * MELATONIN 10 MG TABLET Take 1 tablet by mouth daily * LANTUS SOLOSTAR U-100 INSULIN* Inject 6 Units subcutaneously* GLIPIZIDE 5 MG TABLET Take 1 tablet by mouth twice * SITAGLIPTIN 100 MG TABLET Take 1 tablet by mouth once d* MIRALAX ORAL Take 1 Packet by mouth once d* CALCIUM CARBONATE 600 MG CALC* Take 600 mg by mouth three ti* ALIGN ORAL Take 1 tablet by mouth once d* Problem List As Of Date 04/06/2020 Noted Resolved Chronic bilateral low back pain with right-side*09/13/2015 02/26/2018 Lumbar degenerative disc disease [M51.36] 09/13/2015 Sleep disorder [G47.9] 05/30/2016 Hypertension [I10] 05/26/2016 Anxiety [F41.9] 05/26/2016 Depression [F32.9] 05/26/2016 Idiopathic osteoporosis [M81.8] 01/23/2017 Essential hypertension, malignant [I10] 05/26/2016 06/04/2016 Essential hypertension [I10] 06/04/2016 More... Insomnia [G47.00] 06/04/2016 Type 2 diabetes mellitus with diabetic neuropat*06/04/2016 More... Neuropathy associated with endocrine disorder (*06/04/2016 Malaise and fatigue [R53.81, R53.83] 06/04/2016 Onychomycosis [B35.1] 09/21/2016 08/11/2018 SEE (generalized anxiety disorder) [F41.1] 11/05/2016 More... Dysphagia [R13.10] 11/05/2016 More... Dizziness [R42] 02/16/2017 02/26/2018 Osteoporosis without current pathological fract*04/07/2017 Migraine without aura and without status migrai*04/07/2017 Irritable bowel syndrome with diarrhea [K58.0] 06/30/2017 Chronic kidney disease, stage 2, mildly decreas*07/27/2017 09/01/2017 Obesity, Class III, BMI >= 40 E66.01 [E66.01] 08/16/2017 TIA (transient ischemic attack) [G45.9] 09/05/2017 10/02/2017 More... More... Neck pain [M54.2] 02/04/2018 Chronic kidney disease, stage 3, mod decreased *08/03/2018 More... Recurrent major depressive disorder, in partial*08/11/2018 Vitamin D deficiency [E55.9] 09/07/2018 GERD without esophagitis [K21.9] 12/28/2018 Coronary artery disease involving sitka thrasher*02/04/2019 Other constipation [K59.09] 06/19/2019 Acute right MCA stroke (HCC) [I63.511] 03/08/2020 More... Acute kidney injury superimposed on chronic kid*03/09/2020 More... Sinus tachycardia [R00.0] 03/09/2020 More... Rhabdomyolysis [M62.82] 03/09/2020 03/11/2020 More... Fall [W19.XXXA] 03/09/2020 More... Diabetic ketoacidosis without coma associated w*03/09/2020 03/11/2020 More... Leukocytosis [D72.829] 03/09/2020 More... Fever [R50.9] 03/09/2020 More... Elevated troponin [R77.8] 03/09/2020 More... Closed left ankle fracture [S82.892A] 03/09/2020 More... Respiratory tract infection due to COVID-19 vir*03/11/2020 Obesity, Class II, BMI 35-39.9 [E66.9] 03/19/2020 Letter Text Encounter Status:Closed by GAYATHRI FORTE CMA on 04/18/20 [facility] CASE MANAGEMon 03-22-2020 CASE MANAGEM HNO ID: [id number] Author: Paulette Cruz (Sw) Service: ? Author Type: Hospital Corpsman Type: Care Mgt Progress Note Filed: 03/22/2020 11:36 AM Note Text: CARE MANAGEMENT DISCHARGE NOTE SERVICE DATE: 03/22/2020 SERVICE TIME: 11:31 AM LOS: 14 days Admission Date: 03/08/2020 DISCHARGE ARRANGEMENT (list agency and phone number) Discharge Arrangement: Acute rehab Provider Name: [facility] CAREGIVER ASSESSMENT: Caregiver is ready, willing and able to meet the patient's needs as recommended by the inter-professional team:: Yes Does the patient have an acute stroke diagnosis, or has the patient had a stroke during this admission?: Yes Patient's transition needs and plan for meeting these needs: AR HANDOFF COMMUNICATION: Handoff to: Other Caregiver Other Caregiver Name/Phone: RN to call report to [phone] TRANSPORTATION ARRANGEMENTS: Transportation Arrangements: Ambulance/[facility] Transportation Agency and Phone #:: [facility] ( [facility] ) [phone] / [phone] Date of Trip: 03/22/20 Time of Trip: 1400 Type of Service: BLS Non-emergency Is Patient Medicaid Pending?: No Discussion of financial coverage occurred with: Patient Child Life Assistant Location: [facility] [place] Destination: [facility] ADDITIONAL CONTACT RESOURCES: Ayo Arreguin [phone] JESUS confirmed pt to admit to [facility] today. Faxed over d/c summary, updated son with transport time. Updated RN and pt. SIGNATURE: JESUS Alvarez PATIENT NAME: Lisa Shirley DATE: March 22, 2020 TIME: 11:31 AM PAGER/CONTACT #: [phone] [facility] NURSING PROGon 03-22-2020 NURSING PROG HNO ID: [id number] Author: Quynh Jean-BaptisteRn) JONNY Manzanares Service: ? Author Type: Registered Nurse Type: Nursing Progress Note Filed: 03/22/2020 12:27 PM Note Text: Nursing Progress Note Patient Name: Lisa Shirley Patient Location: [id number] 1 Daily Note:1226: report called to [facility]. All questions answered. This note was completed by: Quynh Manzanares RN [facility] NURSING PROG HNO ID: [id number] Author: Quynh Jean-BaptisteRn) JONNY Manzanares Service: ? Author Type: Registered Nurse Type: Nursing Progress Note Filed: 03/22/2020 12:15 PM Note Text: Nursing Progress Note Patient Name: Lisa Shirley Patient Location: [id number] 1 Daily Note: 1115: spoke to Dr Rawls regarding discharging patient with event record monitor. Stated okay to d/c without and pt can have one mailed to her. Left message with cardiac function regarding event record monitor for patient. This note was completed by: Quynh Manzanares, JONNY [facility] CASE MANAGEMon 03-21-2020 CASE MANAGEM HNO ID: [id number] Author: AMADOU Grubbs (Lisw) Service: Social Work Author Type: Hospital Corpsman Type: Care Mgt Progress Note Filed: 03/21/2020 3:19 PM Note Text: CARE MANAGEMENT PROGRESS NOTE SERVICE DATE: 03/21/2020 SERVICE TIME: 3:17 PM LOS: 13 days ... [facility] has accepted patient if medically stable for tomorrow. If not patient will have to wait until Sun 03/25. Called patient to discuss and called sonOsmany who is in agreement. Cot clip, covid tool and envelope completed. SIGNATURE: AMADOU Grubbs PATIENT NAME: Lisa Shirley DATE: March 21, 2020 TIME: 3:17 PM PAGER/CONTACT #: [phone] [facility] CASE MANAGEM HNO ID: [id number] Author: AMADOU Grubbs (Lisw) Service: Social Work Author Type: Hospital Corpsman Type: Care Mgt Progress Note Filed: 03/21/2020 2:58 PM Note Text: CARE MANAGEMENT PROGRESS NOTE SERVICE DATE: 03/21/2020 SERVICE TIME: 2:58 PM LOS: 13 days IMM Follow Up Copy Given: Yes Copy given to:: Patient Method: By Phone IM letter given to patient. SIGNATURE: AMADOU Grubbs PATIENT NAME: Lisa Shirley DATE: March 21, 2020 TIME: 2:57 PM PAGER/CONTACT #: [phone] [facility] CASE MANAGEM HNO ID: [id number] Author: AMADOU Grubbs (Lisw) Service: Social Work Author Type: Hospital Corpsman Type: Care Mgt Progress Note Filed: 03/21/2020 11:22 AM Note Text: CARE MANAGEMENT PROGRESS NOTE SERVICE DATE: 03/21/2020 SERVICE TIME: 9:57 AM LOS: 13 days ... Therapy updates sent to [facility] and [facility].Awaiting acceptance Cleed patient who had some concerns about her utilities. Phone is busy currently. Will keep trying. Addendum: [facility] called and have beds now but would need a negative covid test before they would take her and she could only be admitted on , or Sunday 03/25 due to their staffing. Discussed with Dr. Rawls and messaged Dr. Fulton for rapid covid test. SIGNATURE: AMADOU Grubbs PATIENT NAME: Lisa Shirley DATE: March 21, 2020 TIME: 9:57 AM PAGER/CONTACT #: [phone] [facility] CBC W Auto Diff [place] 2019 Basophils (Bld) [#/Vol] 0.03 10*3/uL Normal <0.11 [facility] Comment on above: Order Comment: Speci men Type: BLOOD SPECIMEN Performed By: #### 5 7021-8 ####[facility] LABORATORYCLIA [id number] [place] [address] Basophils/100 WBC (Bld) 0.2 % Normal [facility] Comment on above: Order Comment: Speci men Type: BLOOD SPECIMEN Performed By: #### 5 7021-8 ####[facility]ORY[facility] [id number] [place] [address] Differential cell count method Nom (Bld) Auto Normal [facility] Comment on above: Order Comment: Speci men Type: BLOOD SPECIMEN Performed By: #### 5 7021-8 ####[facility]ORY[facility] [id number] [place] [address] Eosinophils (Bld) [#/Vol] 0.05 10*3/uL Normal <0.46 [facility] Comment on above: Order Comment: Speci men Type: BLOOD SPECIMEN Performed By: #### 5 7021-8 ####[facility]ORYCLIA [id number] [place] [address] Eosinophils/100 WBC (Bld) 0.3 % Normal [facility] Comment on above: Order Comment: Speci men Type: BLOOD SPECIMEN Performed By: #### 5 7021-8 ####[facility]ORY[facility] [id number] [place] [address] Erythrocyte distribution width (RBC) [Ratio] 13.3 % Normal 11.5-15.0 [facility] Comment on above: Order Comment: Speci men Type: BLOOD SPECIMEN Performed By: #### 5 7021-8 ####[facility]ORATORYCLIA [id number] [place] [address] Hematocrit (Bld) [Volume fraction] 33.3 % Low 36.0-46.0 [facility] Comment on above: Order Comment: Speci men Type: BLOOD SPECIMEN Performed By: #### 5 7021-8 ####[facility] LABORATORYCLIA [id number] [place] [address] Hemoglobin (Bld) [Mass/Vol] 11.1 g/dL Low 11.5-15.5 [facility] Comment on above: Order Comment: Speci men Type: BLOOD SPECIMEN Performed By: #### 5 7021-8 ####[facility] LABORATORYCLIA [id number] [place] [address] IMMATURE GRAN % 0.9 % Normal [facility] Comment on above: Order Comment: Speci men Type: BLOOD SPECIMEN Performed By: #### 5 7021-8 ####[facility] LABORATORYCLIA [id number] [place] [address] IMMATURE GRAN ABS 0.13 k/uL High <0.10 [facility] Comment on above: Order Comment: Speci men Type: BLOOD SPECIMEN Performed By: #### 5 7021-8 ####[facility] [id number] [place] [address] Lymphocytes (Bld) [#/Vol] 2.64 10*3/uL Normal 1.00-4.00 [facility] Comment on above: Order Comment: Speci men Type: BLOOD SPECIMEN Performed By: #### 5 7021-8 ####[facility]ORY[facility]IA [id number] [place] [address] Lymphocytes/100 WBC (Bld) 18.4 % Normal [facility] Comment on above: Order Comment: Speci men Type: BLOOD SPECIMEN Performed By: #### 5 7021-8 ####[facility] LABORATORYCLIA [id number] [place] [address] MCH (RBC) [Entitic mass] 30.7 pg Normal 26.0-34.0 [facility] Comment on above: Order Comment: Speci men Type: BLOOD SPECIMEN Performed By: #### 5 7021-8 ####[facility]ORATORYCLIA [id number] [place] [address] MCHC (RBC) [Mass/Vol] 33.3 g/dL Normal 30.5-36.0 [facility] Comment on above: Order Comment: Speci men Type: BLOOD SPECIMEN Performed By: #### 5 7021-8 ####[facility] LABORATORYCLIA [id number] [place] [address] MCV (RBC) [Entitic vol] 92.0 fL Normal 80.0-100.0 [facility] Comment on above: Order Comment: Speci men Type: BLOOD SPECIMEN Performed By: #### 5 7021-8 ####[facility] LABORATORYCLIA [id number] [place] [address] Monocytes (Bld) [#/Vol] 0.97 10*3/uL High <0.87 [facility] Comment on above: Order Comment: Speci men Type: BLOOD SPECIMEN Performed By: #### 5 7021-8 ####[facility] LABORATORYCLIA [id number] [place] [address] Monocytes/100 WBC (Bld) 6.8 % Normal [facility] Comment on above: Order Comment: Speci men Type: BLOOD SPECIMEN Performed By: #### 5 7021-8 ####[facility]ORATORYCLIA [id number] [place] [address] Neutrophils (Bld) [#/Vol] 10.50 10*3/uL High 1.45-7.50 [facility] Comment on above: Order Comment: Speci men Type: BLOOD SPECIMEN Performed By: #### 5 7021-8 ####[facility]ORATORYCLIA [id number] [place] [address] Neutrophils/100 WBC (Bld) 73.4 % Normal [facility] Comment on above: Order Comment: Speci men Type: BLOOD SPECIMEN Performed By: #### 5 7021-8 ####[facility] LABORATORYCLIA [id number] [place] [address] Nucleated RBC (Bld) [#/Vol] 10*3/uL Normal <0.01 [facility] Comment on above: Order Comment: Speci men Type: BLOOD SPECIMEN Performed By: #### 5 7021-8 ####[facility] LABORATORYCLIA [id number] [place] [address] Nucleated RBC/100 WBC (Bld) [Ratio] 0.0 /100 WBC Normal 0.0 [facility] Comment on above: Order Comment: Speci men Type: BLOOD SPECIMEN Performed By: #### 5 7021-8 ####[facility] LABORATORYCLIA [id number] [place] [address] Platelet mean volume (Bld) [Entitic vol] 11.5 fL Normal 9.0-12.7 [facility] Comment on above: Order Comment: Speci men Type: BLOOD SPECIMEN Performed By: #### 5 7021-8 ####[facility] LABORATORYCLIA [id number] [place] [address] Platelets (Bld) [#/Vol] 206 10*3/uL Normal 150-400 [facility] Comment on above: Order Comment: Speci men Type: BLOOD SPECIMEN Performed By: #### 5 7021-8 ####[facility] LABORATORYCLIA [id number] [place] [address] RBC (Bld) [#/Vol] 3.62 10*6/uL Low 3.90-5.20 [facility] Comment on above: Order Comment: Speci men Type: BLOOD SPECIMEN Performed By: #### 5 7021-8 ####[facility]ORATORYCLIA [id number] [place] [address] WBC (Bld) [#/Vol] 14.32 10*3/uL High 3.70-11.00 [facility] Comment on above: Order Comment: Speci men Type: BLOOD SPECIMEN Performed By: #### 5 7021-8 ####[facility] LABORATORYCLIA [id number] [place] [address] CONSULT PROGon 03-21-2020 CONSULT PROG HNO ID: [id number] Author: Marissa Banks Service: Endocrinology Author Type: Physician Type: Consult Progress Note Filed: 03/21/2020 7:12 AM Note Text: ENDOCRINOLOGY CONSULT PROGRESS NOTE SERVICE DATE: 03/21/2020 SERVICE TIME: 6:41 AM Subjective INTERVAL HPI: Following for DM type 2, consult on 03/14 for hyperglycemia. Adm on 03/08 with DKA, R MCA stroke, COVID 19. pt agitated off and on; was in restraints, off now. Had ORIF left ankle fx on 03/19. Notes and orders reviewed. Diet: DIET CARBOHYDRATE CONTROLLED p.o intake erratic, needs help with meals Activity: bedrest Review of Systems: unable to talk to pt on phone; pt is not picking up phone; D/W RN, c/o pain left foot (surgery site) pain, no SOB; ate well, was a little confused last night Current Facility-Administered Medications Medication Dose Route Frequency - docusate 100 mg oral liquid (DIOCTO, COLACE) 100 mg ORAL/FEEDING TUBE BID - bisacodyl 10 mg suppository (DULCOLAX) 10 mg RECTAL DAILY PRN - ondansetron (PF) 4 mg injection (ZOFRAN) 4 mg INTRAVENOUS q 4 H PRN - acetaminophen 650 mg tab(s) (TYLENOL) 650 mg ORAL/FEEDING TUBE q 4 H PRN Or - acetaminophen 650 mg CUP (TYLENOL) 650 mg ORAL/FEEDING TUBE q 4 H PRN Or - acetaminophen 650 mg suppository (TYLENOL) 650 mg RECTAL q 4 H PRN - miconazole 2 % 1 application topical powder (LOTRIMIN AF, DESENEX) 1 application TOPICAL BID - atorvastatin 80 mg tab(s) (LIPITOR) 80 mg ORAL/FEEDING TUBE AT BEDTIME - dextrose 40 % 15 g 15 g ORAL PRN Or - glucagon 1 mg injection 1 mg INTRAMUSCULAR PRN Or - dextrose 50% in water 25 mL syringe 12.5 g INTRAVENOUS PRN - sodium chloride 0.9 % (flush) 10 mL (BD POSIFLUSH) 10 mL INTRAVENOUS q 12 H - sodium chloride 0.9 % (flush) 20 mL (BD POSIFLUSH) 20 mL INTRAVENOUS PRN - pill sheet rock hanger (patient-specific) 1 Each Miscell. (Med.Supl.;Non-Drugs) PRN - ondansetron 4 mg tab(s) (ZOFRAN) 4 mg ORAL/FEEDING TUBE q 6 H PRN - nystatin 5 mL oral liquid (MYCOSTATIN) 5 mL MUCOUS MEMBRANE QID - insulin lispro pen (rapid acting) (HumaLOG KWIKPEN) SUBCUTANEOUS w MEALS - dilTIAZem CD 180 mg cap(s) (CARDIZEM CD, CARTIA XT) 180 mg ORAL DAILY - hydrALAZINE 25 mg tab(s) (APRESOLINE) 25 mg ORAL q 6 H - NaCl 0.9% iv infusion 100 mL/hr INTRAVENOUS CONTINUOUS - melatonin 6 mg tab(s) 6 mg ORAL HS PRN - insulin NPH human 4 Units injection pen (intermediate acting) (NovoLIN N, HumuLIN N) 4 Units SUBCUTANEOUS AT BEDTIME - insulin NPH human 8 Units injection pen (intermediate acting) (NovoLIN N, HumuLIN N) 8 Units SUBCUTANEOUS DAILY (8 AM) - SITagliptin 100 mg tab(s) (JANUVIA) 100 mg ORAL DAILY - glimepiride 4 mg tab(s) (AMARYL) 4 mg ORAL DAILY WITH BREAKFAST - oxyCODONE IR 5-10 mg tab(s) (ROXICODONE) 5-10 mg ORAL q 6 H PRN - heparin 5,000 Units injection 5,000 Units SUBCUTANEOUS q 8 H Objective PHYSICAL EXAM: GENERAL: pt not examined due to COVID isolation; D/W RN, drowsy (due to pain meds); responding to commands; not dyspneic/not in distress BP 153/71 Pulse 87 Temp (Src) 97.2 (Oral) Resp 16 Ht 5' 6" (1.68m) Wt 217 lb 8 oz (98.7kg) SpO2 99% BMI 35.12 kg/(m2). O2 Therapy: Room Air DATA: Diagnostic tests reviewed for today's visit: Most recent labs and imaging results. Last 24 hr BS reviewed. Recent Labs 03/21/20 0544 03/20/207 03/20/20 1741 03/20/20 0749 03/20/20 0529 03/20/20 0527 03/19/202013 GLUC 94 -- -- -- -- 134* -- PCGLUCOSE -- 101* 110* 154* 145* -- 164* Assessment/Plan Type 2 diabetes mellitus with diabetic neuropathy, without long-term current use of insulin (HCC) POA: Yes Assessment AND Plan: uncontrolled; A1c 9.6 (was 12.6 in October,); pt says long-standing duartion, home Rx Glipizide 5 mg bid and Januvia 100 mg daily. BS "high" at home per pt. On steroids, started on NPH 12 units bid and Regular 5 units started per natalee team. changed Rx to NPH 12-0-0-12 Humalog 8 units tid on 03/14 pm. BS low at hs, D/W RN, NPH held on 03/14 night. Changed NPH to 10-0-0-6 and contd Humalog 8 units tid (reduce if eats <30%) on 03/15. BS high all day on 03/15 and 03/16. Ate poorly on 03/16, D/W RN;pt was in restraints; off on 03/17. Increased NPH to 12-0-0-8 and Humalog to 12 units tid from 03/17. BS were still high; increased Humalog to 14 units tid from 03/18 am; contd NPH. NPO for OR on 03/19; D/W RN, half dose on am NPH given( no steroids). Off steroids now; insulin reduced per primary, NPH 9-0-0-6 and Humalog 8 units tid last night. Added oral agents, Amaryl 4 mg daily am and Januvia 100 mg daily from 03/20 am; reduced NPH to 8-0-0-4 and stopped prog Humalog on 03/20; contd SSI ac for BS >150. BS stable. Will reduce NPH to 6-0-0-0 today and cont orals. Will try to wean off insulin. Acute right MCA stroke (HCC) POA: Yes Assessment AND Plan: per neuro Respiratory tract infection due to COVID-19 virus POA: Yes Assessment AND Plan: was on decadron; off now from 03/19 Closed left ankle fracture POA: Yes Assessment AND Plan: per ortho; had ORIF on 03/19 Rhabdomyolysis POA: Yes Assessment AND Plan: resolved Diabetic ketoacidosis without coma associated with type 2 diabetes mellitus (HCC) POA: Yes Assessment AND Plan: resolved, was on IV insulin Essential hypertension POA: Yes Assessment AND Plan: Dysphagia POA: Yes Assessment AND Plan: on dysphagia diet Chronic kidney disease, stage 3, mod decreased GFR POA: Yes Assessment AND Plan: creat 0.93(1.00)(1.03)(1.02)(0.99 ) Acute kidney injury superimposed on chronic kidney disease (HCC) POA: Yes Assessment AND Plan: resolved Elevated troponin POA: Yes Assessment AND Plan: SIGNATURE: Marissa Banks MD PATIENT NAME: Lisa Shirley DATE: March 21, 2020 TIME: 7:12 AM PAGER: [phone] Normal [facility] Comp Metab 2000 Pnl SerPlon 03-21-2020 Albumin [Mass/Vol] 2.5 g/dL Low 3.9-4.9 [facility] Comment on above: Order Comment: Speci men Type: BLOOD SPECIMEN Performed By: #### 2 4321-2 #### [facility] CLIA [id number] [address] [place] [address] ALP [Catalytic activity/Vol] 56 U/L Normal 34-123 [facility] Comment on above: Order Comment: Speci men Type: BLOOD SPECIMEN Performed By: #### 2 4321-2 #### [facility] CLIA [id number] [address] [place] [address] ALT With P-5'-P [Catalytic activity/Vol] 11 U/L Normal 7-38 [facility] Comment on above: Order Comment: Speci men Type: BLOOD SPECIMEN Performed By: #### 2 4321-2 #### [facility] CLIA [id number] [address] [place] [address] Anion gap [Moles/Vol] 8 mmol/L Low 9-18 [facility] Comment on above: Order Comment: Speci men Type: BLOOD SPECIMEN Performed By: #### 2 4321-2 #### [facility] CLIA [id number] [address] [place] [address] AST With P-5'-P [Catalytic activity/Vol] 18 U/L Normal 13-35 [facility] Comment on above: Order Comment: Speci men Type: BLOOD SPECIMEN Performed By: #### 2 4321-2 #### [facility] CLIA [id number] [address] [place] [address] Bilirubin [Mass/Vol] 0.6 mg/dL Normal 0.2-1.3 [facility] Comment on above: Order Comment: Speci men Type: BLOOD SPECIMEN Performed By: #### 2 4321-2 #### [facility] CLIA [id number] [address] [place] [address] Calcium [Mass/Vol] 7.1 mg/dL Low 8.5-10.2 [facility] Comment on above: Order Comment: Speci men Type: BLOOD SPECIMEN Performed By: #### 2 4321-2 #### [facility] CLIA [id number] [address] [place] [address] Chloride [Moles/Vol] 114 mmol/L High 97-105 [facility] Comment on above: Order Comment: Speci men Type: BLOOD SPECIMEN Performed By: #### 2 4321-2 #### [facility] CLIA [id number] [address] [place] [address] CO2 [Moles/Vol] 19 mmol/L Low 22-30 [facility] Comment on above: Order Comment: Speci men Type: BLOOD SPECIMEN Performed By: #### 2 4321-2 #### [facility] CLIA [id number] [address] [place] [address] Creatinine [Mass/Vol] 0.93 mg/dL Normal 0.58-0.96 [facility] Comment on above: Order Comment: Speci men Type: BLOOD SPECIMEN Performed By: #### 2 4321-2 #### [facility] CLIA [id number] [address] [place] [address] GFR/1.73 sq M.predicted MDRD (S/P/Bld) [Vol rate/Area] mL/min/{1.73_m2} Normal [facility] Comment on above: Order Comment: Speci men Type: BLOOD SPECIMEN Result Comment: 59 eGFR (Estimated GFR) Units of measure: mL/min/1.73 meters squared eGFR is derived from the reexpressed MDRD Study equation using the following parameters: serum creatinine, age, gender and race. The creatinine assay has been calibrated to be traceable to IDMS. An eGFR <60 mL/min/1.73m2 for >3 months is consistent with chronic kidney disease. Refer to KDOQI guidelines for clinical interpretation. In patients with unstable renal function, e.g. those with acute kidney injury, the eGFR may not accurately reflect actual GFR. Performed By: #### 2 4321-2 #### [facility] CLIA [id number] [address] [place] [address] Glucose [Mass/Vol] 94 mg/dL Normal 74-99 [facility] Comment on above: Order Comment: Speci [facility] Type: BLOOD SPECIMEN Result Comment: The [place] Diabetes [employer] (ADA) provides guidance for cutoff values for fasting glucose and random glucose. The ADA defines fasting as no caloric intake for at least 8 hours. Fasting plasma glucose results between 100 to 125 mg/dL indicate increased risk for diabetes (prediabetes). Fasting plasma glucose results greater than or equal to 126 mg/dL meet the criteria for diagnosis of diabetes. In the absence of unequivocal hyperglycemia, results should be confirmed by repeat testing. In a patient with classic symptoms of hyperglycemia or hyperglycemic crisis, random plasma glucose results greater than or equal to 200 mg/dL meet the criteria for diagnosis of diabetes. Reference: Standards of Medical Care in Diabetes 2016, [place] [employer]. Diabetes Care. 2016.39(Suppl 1). Performed By: #### 2 4321-2 #### [facility] CLIA [id number] [address] [place] [address] Potassium [Moles/Vol] 3.3 mmol/L Low 3.7-5.1 [facility] Comment on above: Order Comment: [facility] Type: BLOOD SPECIMEN Performed By: #### 2 4321-2 #### [facility] CLIA [id number] [address] [place] [address] Protein [Mass/Vol] 4.9 g/dL Low 6.3-8.0 [facility] Comment on above: Order Comment: Speci men Type: BLOOD SPECIMEN Performed By: #### 2 4321-2 #### [facility] CLIA [id number] [address] [place] [address] Sodium [Moles/Vol] 141 mmol/L Normal 136-144 [facility] Comment on above: Order Comment: Speci men Type: BLOOD SPECIMEN Performed By: #### 2 4321-2 #### [facility] CLIA [id number] [address] [place] [address] Urea nitrogen [Mass/Vol] 14 mg/dL Normal 7-21 [facility] Comment on above: Order Comment: Speci men Type: BLOOD SPECIMEN Performed By: #### 2 4321-2 #### [facility] CLIA [id number] [address] [place] [address] NURSING PROGon 03-21-2020 NURSING PROG HNO ID: [id number] Author: Aron (Rn) JONNY Rothman Service: ? Author Type: Registered Nurse Type: Nursing Progress Note Filed: 03/21/2020 12:39 AM Note Text: Nursing Progress: Topic: RESTRAINT NON-VIOLENT PATIENT NAME: Lisa Shirley PATIENT LOCATION: [place] [address] [address]* The patient demonstrates Attempting to Remove Medical Devices Vital to Medical Stability, Lack of Understanding/Ability to Comply with Safety Directions as evidenced by the following behaviors pulling at PICC, attempting to get out of bed, not following instruction * which pose an imminent danger to self or others. The following interventions were attempted but were not effective in protecting the patient's safety: Alarms, Bed in Low/Locked Position, Call Light Within Reach, Gauze Wrap/Sleeve IV Site Next, a comprehensive assessment was performed and warranted placing the patient in Soft Bilateral Wrists, the least restrictive restraint needed to protect the patient's safety. Ongoing safety assessments and evaluation for earliest removal of restraints will be performed. DATE: March 21, 2020 TIME: 12:35 AM Aron Rothman RN Normal [facility] PROGRESSon 03-21-2020 PROGRESS HNO ID: [id number] Author: Theo Rawls MD Service: Hospital Medicine Author Type: Physician Type: Progress Notes Filed: 03/21/2020 7:01 PM Note Text: DEPARTMENT OF HOSPITAL MEDICINE PROGRESS NOTE SERVICE DATE: 03/21/2020 SERVICE TIME: 6:57 PM Hospital Medicine/Primary Attending: Theo Rawls MD NIGHT AND WEEKEND COVERAGE: After 7pm please page 1962 CHIEF COMPLAINT: Follow-up for cerebrovascular accident SUBJECTIVE: Patient seen and examined. Complains of pain all over. Complains of being stiff. Complains of a headache. OBJECTIVE: PHYSICAL EXAM: BP 100/58 Pulse 91 Temp (Src) 98.1 (Axillary) Resp 18 Ht 5' 6" (1.68m) Wt 217 lb 8 oz (98.7kg) SpO2 98% BMI 35.12 kg/(m2). O2 Therapy: Room Air General - AANDOx3, morbidly obese, not in any obvious distress CV - RRR S1 S2, No M/R/G RESP - CTA B/L No wheezes, ronchi, rales ABD - soft, NT, ND +BS EXT - no gross joint deformity, no clubbing, cyanosis, edema NEURO -left-sided cranial nerve VII palsy, left-sided hemiparesis. Speech slightly slurred but understandable. MEDICATIONS: Current Facility-Administered Medications Medication Dose Route Frequency - docusate 100 mg oral liquid (DIOCTO, COLACE) 100 mg ORAL/FEEDING TUBE BID - bisacodyl 10 mg suppository (DULCOLAX) 10 mg RECTAL DAILY PRN - ondansetron (PF) 4 mg injection (ZOFRAN) 4 mg INTRAVENOUS q 4 H PRN - miconazole 2 % 1 application topical powder (LOTRIMIN AF, DESENEX) 1 application TOPICAL BID - atorvastatin 80 mg tab(s) (LIPITOR) 80 mg ORAL/FEEDING TUBE AT BEDTIME - dextrose 40 % 15 g 15 g ORAL PRN Or - glucagon 1 mg injection 1 mg INTRAMUSCULAR PRN Or - dextrose 50% in water 25 mL syringe 12.5 g INTRAVENOUS PRN - sodium chloride 0.9 % (flush) 10 mL (BD POSIFLUSH) 10 mL INTRAVENOUS q 12 H - sodium chloride 0.9 % (flush) 20 mL (BD POSIFLUSH) 20 mL INTRAVENOUS PRN - pill sheet rock hanger (patient-specific) 1 Each Miscell. (Med.Supl.;Non-Drugs) PRN - ondansetron 4 mg tab(s) (ZOFRAN) 4 mg ORAL/FEEDING TUBE q 6 H PRN - insulin lispro pen (rapid acting) (HumaLOG KWIKPEN) SUBCUTANEOUS w MEALS - dilTIAZem CD 180 mg cap(s) (CARDIZEM CD, CARTIA XT) 180 mg ORAL DAILY - SITagliptin 100 mg tab(s) (JANUVIA) 100 mg ORAL DAILY - glimepiride 4 mg tab(s) (AMARYL) 4 mg ORAL DAILY WITH BREAKFAST - oxyCODONE IR 5-10 mg tab(s) (ROXICODONE) 5-10 mg ORAL q 6 H PRN - [START ON 03/22/2020] enoxaparin 40 mg injection (LOVENOX) 40 mg SUBCUTANEOUS q 24 HR - losartan 100 mg tab(s) (COZAAR) 100 mg ORAL DAILY - melatonin 9 mg tab(s) 9 mg ORAL DAILY (8 PM) - [START ON 03/22/2020] insulin NPH human 6 Units injection pen (intermediate acting) (NovoLIN N, HumuLIN N) 6 Units SUBCUTANEOUS DAILY (8 AM) - oxyCODONE IR 5 mg tab(s) (ROXICODONE) 5 mg ORAL TID - acetaminophen 1,000 mg tab(s) (TYLENOL) 1,000 mg ORAL TID DATA: Diagnostic tests reviewed for today's visit: CBC: Recent Labs 03/21/20 0544 WBC 14.32* RBC 3.62* HB 11.1* HCT 33.3* PLT 206 MCV 92.0 MCH 30.7 MPV 11.5 Coags: No results for input(s): PT, INR, APTT in the last 24 hours. BMP: Recent Labs 03/21/20 0544 NA 141 K 3.3* CHLOR 114* CO2 19* BUN 14 CREAT 0.93 GLUC 94 CMP: Recent Labs 03/21/20 0544 NA 141 K 3.3* CHLOR 114* CO2 19* BUN 14 CREAT 0.93 GLUC 94 TPROT 4.9* CA 7.1* TBILI 0.6 ALKPHOS 56 ALT 11 AST 18 ANION 8* Cardiac Enzymes: No results for input(s): CK, MB, CKMB, TROPT in the last 24 hours. Liver Function, Amylase, Lipase: Recent Labs 03/21/20 0544 TPROT 4.9* ALT 11 AST 18 ALKPHOS 56 TBILI 0.6 MG/PHOS: No results for input(s): MG, P in the last 24 hours. Renal Panel: Recent Labs 03/21/20 0544 CREAT 0.93 BUN 14 GLUC 94 CA 7.1* CHLOR 114* K 3.3* CO2 19* NA 141 Heme: No results for input(s): RETICP, ABSRETIC, LD, KARI, FE, TIBC, TRANSFERSAT in the last 24 hours. No results found for: UALBCR Assessment/Plan 1. 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 Will be needing acute rehabilitation. Plans for March. Possible discharge tomorrow. 2. Trimalleolar left ankle fracture. Has been seen by the pelvic surgery and is undergone ORIF. 3. COVID-19 infection. Asymptomatic. Continue to monitor. 4. Type 2 diabetes. Well controlled in-house. Continue current insulin regimen. 5. Hypertension. Not well controlled. Will add losartan. 6. Diabetic ketoacidosis. Treated effectively with insulin drip. This has resolved. 7. Morbid obesity. Lifestyle modifications as able. VTE Prophylaxis: Lovenox 40mg Sub Q Daily Disposition: Acute Rehab Plan of care discussed with: Provider, RN, Patient and Care Management SIGNATURE: Theo Rawls MD PATIENT NAME: Lisa Shirley DATE: March 21, 2020 TIME: 6:57 PM PAGER/CONTACT #: brenda Montesinos [facility] PROGRESS HNO ID: [id number] Author: Leland Herrera Service: Orthopaedic Surgery Author Type: Physician Type: Progress Notes Filed: 03/21/2020 12:16 PM Note Text: ORTHOPAEDIC SURGERY DAILY PROGRESS NOTE ORTHO STAFF: Agree with resident assessment and plan noted below. Office will contact for outpatient follow-up; please contact for further orthopaedic concerns. Leland Herrera MD ASSESSMENT: 74 y/o woman POD #2 s/p ORIF left trimalleolar ankle fracture with syndesmotic fixation. PLAN: - Management per primary team. - Pain control. - Weight Bearing Status: NWB LLE. - Dressing(s): Short leg splint on LLE. Keep splint clean and dry. - PT/OT: Evaluation AND recommendations. - DVT PPx: SCD. Okay for prophylaxis per primary team. No chemical prophylaxis indicated from orthopaedic standpoint. - Antibiotic PPx: Ancef 2 g Q8H for 24 hours - complete - Anticipated Length of Stay/Disposition: skilled for acute rehab - waiting on acceptance INTERVAL HPI: Per nursing, pain well controlled. Splint clean, dry, intact. Patient is less confused this morning than earlier in the night. Rest of visit performed via chart review. OBJECTIVE: BP 178/82 Pulse 92 Temp 36.5 ?C (97.7 ?F) (Oral) Resp 16 Ht 167.6 cm (5' 6") Wt 98.5 kg (217 lb 1.6 oz) SpO2 99% BMI 35.04 kg/m? Exam: Not performed due to Covid precautions. Visit performed via chart review. Recent Labs 03/20/20 0527 03/19/20 0622 03/18/20 0420 CREAT 1.00* -- 1.03* BUN 18 -- 26* NA 142 -- 141 K 3.7 -- 3.9 CHLOR 111* -- 105 CO2 22 -- 25 ANION 9 -- 11 GLUC 134* -- 178* CA 7.6* -- 8.1* WBC 14.89* 12.84* -- HB 12.7 12.9 -- HCT 37.0 38.7 -- PLT 229 253 -- COAGS: APTT 23.7 03/08/2020 PT INR 1.1 03/12/2020 SED RATE/CRP: No results found for this basename: wsr:*,crp:* Imaging: No new imaging Patito Weston MD Orthopedic Surgery Resident 03/21/2020 4:06 AM [facility] SARS-CoV-2 RNA Resp Ql SHLOMO+p robeon 03-21-2020 SARS-CoV-2 RNA Resp Ql SHLOMO+probe COVID 19 RESULT: SARS-CoV-2 (Agent of COVID-19) Not Detected by PCR. This test has been authorized by FDA under an Emergency Use Authorization (EUA) [facility] Comment on above: Performed By: #### 9 4500-6 ####[facility] LABORATORYCLIA [id number] [place] [address] THERAPY NTon 03-21-2020 THERAPY NT HNO ID: [id number] Author: Shannan Jean-BaptisteOtr/Darion Richard Service: Occupational Therapy Author Type: Occupational Therapist Type: Therapy (PT/OT/Speech/Resp) Filed: 03/21/2020 4:04 PM Note Text: Occupational Therapy Treatment SERVICE DATE: 03/21/2020 SERVICE TIME: 1514 to 1537 ROOM: [place] [address] Recommended Discharge Disposition: Acute Rehab Recommended Discharge Disposition Comments: Acute rehab to increase strength, activity tolerance, visual deficits, and independence with ADLs and functional mobility to return to independent baseline Justification For Post Acute Needs: Motivated;Willing to participate;Anticipate patient will tolerate 3 hours of daily therapy at the time of admission to post-acute setting OT 6 Clicks Score: 14 Patient progressing towards OT goals slower than expected after ORIF 03/19. Patient requiring moderate assist to perform rolling in bed. Patient demonstrates increased awareness of left side this session and able to attend to left side with verbal cues. Patient moving left upper extremity through full AROM and able to reach and touch therapist hand in different location 5/5 times. Patient alert and oriented x3, however confused at times and asking to be cleaned up right after therapist just cleaned patient up after incontinent in bed. Continue to recommend SNF at discharge to maximize return to independent baseline. Precautions/Activity Restrictions: Fall Risk;Lines/Tubes/Drains;Ramon ght Bearing Restrictions;Bed/Chair Alarm Precaution/Activity Restriction Comments: Covid + Isolation Type: Contact/Droplet(eyewear) Extremity With Weight Bearing Restricted: Left Lower Extremity Left Lower Extremity Weight Bearing Status: NWB Current Hospital Course: Found down at home, 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 and left tri-malleolar fracture, and now COVID positive. s/p ORIF trimallolar fx 03/19/20. Reason for Hospital Admission: Stroke Relevant Past Medical History: CAD, DM, CKD stage 3, chronic LBP, major depressive disorder Response to Therapy Interventions: Slow progression with ADLs/IADLs, Slow progression with functional activities/skills, Multiple ongoing medical issues, Needs frequent redirection or re-instruction, Limited participation, Cognitive deficits Continue skilled needs due to: Functional impairment, Safety concerns, Continued monitoring of vital signs during mobility required, Coping deficits Occupational Therapy Problem List: Functional Mobility Impairment;Decreased Strength;Impaired Visual Motor Skills;Sensory Deficit;Decreased Range Of Motion;Decreased Activity Tolerance;Impaired Self Care;Safety Deficits;Pain Cognition/Communication Deficits Orientation Deficits: Confused Responsiveness: Alert Follows Commands: 1-step Commands, Cueing Needed Cueing to Follow Commands: Moderate Sequencing Deficit: Moderate impairment Judgement Deficit: Moderate impairment Insight to Deficits: Moderate impairment Problem Solving Deficit: Moderate impairment Motor Planning Deficit: Moderate impairment Safety Awareness Deficit: Moderate impairment Treatment Interventions: Self Care / Home Management;Functional Mobility Training;Strengthening;Neur omuscular Re-education;Education;Ener gy Conservation Training Plan for next visit: Bathing training, Bed mobility, Chair/commode transfer training, Dressing training, Coping, Energy conservation, Fall prevention, Feeding training, Grooming training, Sitting balance, Sit to stand transfers Home Environment Patient Lives With: Self/Alone Assistance Available: None Entry To Home: Stairs;With Rail Number Of Stairs Into Home: 4 Number Of Stairs To Bed/Bath: 0 Tub/Shower Type: Walk in Laundry: Minimally completes Equipment Owned: Autrement ([employer])Shower Prior Functional Level: (driving, activity limited by LBP) Prior Functional Level Comments: 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 d/t 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 pain Patient Report: pt supine in bed and agreeable to therapy. pt confused and requires frequent redirection. CURRENT FUNCTIONAL STATUS: Most recent performance Current Activities of Daily Living Assist Level Additional Information Feeding Minimal Assistance Grooming Minimal Assistance Facilitated self care tasks bed level to increase functional cognition and independence with activities of daily living. Provided patient with comb and patient able to initiate grooming task, however needs minimal assist to complete successfully. Bathing Upper Body Moderate Assistance Bathing Lower Body Maximal Assistance Dressing Upper Body Moderate Assistance Dressing Lower Body Maximal Assistance Toileting Maximal Assistance Provided patient with max assist to perform perineal hygiene while in side lying after incontinent of urine; after assisting pt with perineal hygiene, she asks to be cleaned up again, reassured pt that she is dry and does not need to be cleaned up. Educated patient on importance of calling when needing to have BM, so she can be put on bedpan, pt reports she does not like the bedpan; educated her on importance of not laying in her own urine/feces due to increased risk for skin breakdown/infection. Functional Mobility Assist Level Additional Information Rolling Moderate Assistance max verbal cues to reach for bed rails and hold grasp while therapist assist pt with perineal hygiene; assist to move left lower extremity into side lying position; mod assist to reposition patient once supine in bed after rolling Supine to Sit Moderate Assistance Sit to Supine Moderate Assistance Scooting Additional Information Sit to Stand Additional Information Stand to Sit Bed to Chair Toilet/Commode Functional Mobility Blank murcia indicate activity not attempted Mobility performed during session in bold, other mobility completed during prior session and may no longer be correct or appropriate to complete. Balance: Static Sitting;Dynamic Sitting Static Sitting Balance: Fair(fair+) Patient able to maintain balance with handhold support, may require occasional minimal assistance(fair+) Dynamic Sitting Balance: Fair Patient accepts minimal challenge, able to maintain balance while turning head/trunk Activity Tolerance: Sitting Activity Sitting Activity: feeding /grooming tasks seated EOB Sitting Activity Tolerance (in minutes): 9 Learning/Educational Needs: Functional Activities/Mobility;Safety; Self Care Goals for Plan of Care: Patient /Caregiver Goals: Go To Rehab Able to perform HEP with: Verbal Cues Only(UE strengthening ) Grooming with: Minimal Assistance Upper Body Bathing with: Minimal Assistance Upper Body Dressing with: Minimal Assistance Lower Body Bathing with: Moderate Assistance Lower Body Dressing with: Moderate Assistance Chair Transfer with: Moderate Assistance Toilet Transfer with: Moderate Assistance(To BSC ) Tolerate (minutes of functional activity): 10 Functional Activity with: Moderate Assistance Additional Goal 1: Pt will demo increased L sided awareness by attending to objects placed on L side with min verbal cues Additional Goal 2: Pt will demo increased actvity tolerance by completing ADL in stranding for 1 minute Additional Goal 3: Pt will demo increased cognition by scoring a 26/30 on the MoCA independently Demonstrate Competence With Education with: Verbal Cues Only Progress Toward Goals: Progressing slower than expected Due To: s/p ORIF L ankle, length of stay Rehab Potential: Good Patient will be discontinued from Occupational Therapy when no further skilled needs are identified in this setting. PLAN: Treatment Frequency (times per week): 5(1-5) Current admission Plan of Care developed with: Patient TREATMENT INTERVENTIONS: Therapy Diagnosis: Reduced mobility-other;Decreased activities of daily living (ADL);Muscle Weakness (generalized) Interventions Provided: Cognitive Training (96164 and 31386);Self Fpc Management (55546) Self Fpc Management (37570) Treatment Minutes: 15 $ Self Fpc Management (01144) Billed Units: 1 unit Cognitive Training Per First 15 Minutes (93575) : 8 $ Cognitive Training Per First 15 Minutes Billed Units (34054) 2020: 1 unit Engaged patient in orientation activity to facilitate awareness to person, place , time, situation and engagement in present. Patient aware she is at hospital and that she had a stroke and broke her leg and has COVID. Patient knows it is February,. Oriented patient to white board to decreased delirium. Provided optimal room set up to promote increased alertness. Educated on importance of maintaining night/day environmental cues such as lighting, developing and maintaining daily routine, and calling when she thinks she is going to have a BM instead of going in the bed (patient reports the bedpan is uncomfortable) Facilitated safety situation/judgement questions: 1. What would you do if you smell gas in the house? "I don't know" 2. What would you do if a fire starts on the stove? "I don't know" would you call anyone? "I would call the fire department." What is their number? 3. What would you do if a family member is ill? "I live alone, so I don't know" 4. What would you do if a tornado is sighted in your area? "I don't know" 5. What would you do if your cut your finger? "I don't know, I guess call " what if it is a small cut? "I don't know" Patient requires increased time to process safety questions and with further verbal cuing is able to problem solve through questions. Training AND education provided in: Role of Occupational Therapy, Bed mobility, Grooming tasks, Cognitive training, Toileting?, Positioning The following therapeutic skills were used: Activity dosing, Cues for sequencing/proper technique for activity, Physical assist, Cuing verbal, Cuing tactile, Therapeutic use of self Total Timed Code Treatment Minutes: 23 Total Treatment Time (minutes): 23 Please see discipline specific clinical documentation flowsheet for complete details for this therapy evaluation/treatment. SIGNATURE: SUKHI Hylton/Blue PATIENT NAME: Lisa Shirley DATE: March 21, 2020 TIME: 3:50 PM Normal [facility] Bas Metab 2000 Pnl SerPlon 1 05-20-2019 Anion gap [Moles/Vol] 9 mmol/L Normal 9-18 [facility] Comment on above: Order Comment: Speci men Type: BLOOD SPECIMEN Performed By: #### 2 4321-2 ####[facility] LABORATORYCLIA [id number] [place] [address] Calcium [Mass/Vol] 7.6 mg/dL Low 8.5-10.2 [facility] Comment on above: Order Comment: Speci men Type: BLOOD SPECIMEN Performed By: #### 2 4321-2 ####[facility]ORATORYCLIA [id number] [place] [address] Chloride [Moles/Vol] 111 mmol/L High 97-105 [facility] Comment on above: Order Comment: Speci men Type: BLOOD SPECIMEN Performed By: #### 2 4321-2 ####[facility]ORATORYCLIA [id number] [place] [address] CO2 [Moles/Vol] 22 mmol/L Normal 22-30 [facility] Comment on above: Order Comment: Speci men Type: BLOOD SPECIMEN Performed By: #### 2 4321-2 ####[facility]ORATORYCLIA [id number] [place] [address] Creatinine [Mass/Vol] 1.00 mg/dL High 0.58-0.96 [facility] Comment on above: Order Comment: Speci men Type: BLOOD SPECIMEN Performed By: #### 2 4321-2 ####[facility]ORATORYCLIA [id number] [place] [address] GFR/1.73 sq M.predicted MDRD (S/P/Bld) [Vol rate/Area] mL/min/{1.73_m2} Normal [facility] Comment on above: Order Comment: Speci men Type: BLOOD SPECIMEN Result Comment: 55 eGFR (Estimated GFR) Units of measure: mL/min/1.73 meters squared eGFR is derived from the reexpressed MDRD Study equation using the following parameters: serum creatinine, age, gender and race. The creatinine assay has been calibrated to be traceable to IDMS. An eGFR <60 mL/min/1.73m2 for >3 months is consistent with chronic kidney disease. Refer to KDOQI guidelines for clinical interpretation. In patients with unstable renal function, e.g. those with acute kidney injury, the eGFR may not accurately reflect actual GFR. Performed By: #### 2 4321-2 ####[facility] LABORATORYCLIA [id number] [place] [address] Glucose [Mass/Vol] 134 mg/dL High 74-99 [facility] Comment on above: Order Comment: Speci men Type: BLOOD SPECIMEN Result Comment: The [place] Diabetes Association (ADA) provides guidance for cutoff values for fasting glucose and random glucose. The ADA defines fasting as no caloric intake for at least 8 hours. Fasting plasma glucose results between 100 to 125 mg/dL indicate increased risk for diabetes (prediabetes). Fasting plasma glucose results greater than or equal to 126 mg/dL meet the criteria for diagnosis of diabetes. In the absence of unequivocal hyperglycemia, results should be confirmed by repeat testing. In a patient with classic symptoms of hyperglycemia or hyperglycemic crisis, random plasma glucose results greater than or equal to 200 mg/dL meet the criteria for diagnosis of diabetes. Reference: Standards of Medical Care in Diabetes 2016, [place] [employer]. Diabetes Care. 2016.39(Suppl 1). Performed By: #### 2 4321-2 ####[facility]ORATORYCLIA [id number] [place] [address] Potassium [Moles/Vol] 3.7 mmol/L Normal 3.7-5.1 [facility] Comment on above: Order Comment: Speci men Type: BLOOD SPECIMEN Performed By: #### 2 4321-2 ####[facility]ATORYCLIA [id number] [place] [address] Sodium [Moles/Vol] 142 mmol/L Normal 136-144 [facility] Comment on above: Order Comment: Speci men Type: BLOOD SPECIMEN Performed By: #### 2 4321-2 ####[facility]ATORYCLIA [id number] [place] [address] Urea nitrogen [Mass/Vol] 18 mg/dL Normal 7-21 [facility] Comment on above: Order Comment: Speci men Type: BLOOD SPECIMEN Performed By: #### 2 4321-2 ####[facility]ORATORYCLIA [id number] [place] [address] CASE MANAGEMon 03-20-2020 CASE MANAGEM HNO ID: [id number] Author: AMADOU Grubbs (Lisw) Service: Social Work Author Type: Hospital Corpsman Type: Care Mgt Progress Note Filed: 03/20/2020 10:46 AM Note Text: CARE MANAGEMENT PROGRESS NOTE SERVICE DATE: 03/20/2020 SERVICE TIME: 10:36 AM LOS: 12 days ... Called patient and she was very anxious and repeating herself " I want out" Spoke with Patient's nurse and patient is in restraints after her surgery.. Called her son, Osmany and discussed plans. Son is agreeable to Acute rehab Referrals. [facility] send referrals to [facility]. SIGNATURE: AAMDOU Grubbs PATIENT NAME: Lisa Shirley DATE: March 20, 2020 TIME: 10:36 AM PAGER/CONTACT #: [phone] Normal [facility] CBC W Auto Diff [place] 2019 Basophils (Bld) [#/Vol] 10*3/uL Normal <0.11 [facility] Comment on above: Order Comment: Speci men Type: BLOOD SPECIMEN Performed By: #### 5 7021-8 #### [facility] CLIA [id number] [address] [place] [address] Basophils/100 WBC (Bld) 0.1 % Normal [facility] Comment on above: Order Comment: Speci men Type: BLOOD SPECIMEN Performed By: #### 5 7021-8 #### [facility] CLIA [id number] [address] [place] [address] Differential cell count method Nom (Bld) Auto Normal [facility] Comment on above: Order Comment: Speci men Type: BLOOD SPECIMEN Performed By: #### 5 7021-8 #### [facility] CLIA [id number] [address] [place] [id number] Eosinophils (Bld) [#/Vol] 10*3/uL Normal <0.46 [facility] Comment on above: Order Comment: Speci men Type: BLOOD SPECIMEN Performed By: #### 5 7021-8 #### [facility] CLIA [id number] [address] [place] [address] Eosinophils/100 WBC (Bld) 0.1 % Normal [facility] Comment on above: Order Comment: Speci men Type: BLOOD SPECIMEN Performed By: #### 5 7021-8 #### [facility] CLIA [id number] [address] [place] [address] Erythrocyte distribution width (RBC) [Ratio] 13.2 % Normal 11.5-15.0 [facility] Comment on above: Order Comment: Speci men Type: BLOOD SPECIMEN Performed By: #### 5 7021-8 #### [facility] CLIA [id number] [address] [place] [address] Hematocrit (Bld) [Volume fraction] 37.0 % Normal 36.0-46.0 [facility] Comment on above: Order Comment: Speci men Type: BLOOD SPECIMEN Performed By: #### 5 7021-8 #### [facility] CLIA [id number] [address] [place] [address] Hemoglobin (Bld) [Mass/Vol] 12.7 g/dL Normal 11.5-15.5 [facility] Comment on above: Order Comment: Speci men Type: BLOOD SPECIMEN Performed By: #### 5 7021-8 #### [facility] CLIA [id number] [address] [place] [address] IMMATURE GRAN % 1.0 % Normal [facility] Comment on above: Order Comment: Speci men Type: BLOOD SPECIMEN Performed By: #### 5 7021-8 #### [facility] CLIA [id number] [address] [place] [address] IMMATURE GRAN ABS 0.15 k/uL High <0.10 [facility] Comment on above: Order Comment: Speci men Type: BLOOD SPECIMEN Performed By: #### 5 7021-8 #### [facility] CLIA [id number] [address] [place] [address] Lymphocytes (Bld) [#/Vol] 2.58 10*3/uL Normal 1.00-4.00 [facility] Comment on above: Order Comment: Speci men Type: BLOOD SPECIMEN Performed By: #### 5 7021-8 #### [facility] CLIA [id number] [address] [place] [address] Lymphocytes/100 WBC (Bld) 17.3 % Normal [facility] Comment on above: Order Comment: Speci men Type: BLOOD SPECIMEN Performed By: #### 5 7021-8 #### [facility] CLIA [id number] [address] [place] [address] MCH (RBC) [Entitic mass] 31.1 pg Normal 26.0-34.0 [facility] Comment on above: Order Comment: Speci men Type: BLOOD SPECIMEN Performed By: #### 5 7021-8 #### [facility] CLIA [id number] [address] [place] [address] MCHC (RBC) [Mass/Vol] 34.3 g/dL Normal 30.5-36.0 [facility] Comment on above: Order Comment: Speci men Type: BLOOD SPECIMEN Performed By: #### 5 7021-8 #### [facility] CLIA [id number] [address] [place] [address] MCV (RBC) [Entitic vol] 90.7 fL Normal 80.0-100.0 [facility] Comment on above: Order Comment: Speci men Type: BLOOD SPECIMEN Performed By: #### 5 7021-8 #### [facility] CLIA [id number] [address] [place] [address] Monocytes (Bld) [#/Vol] 0.93 10*3/uL High <0.87 [facility] Comment on above: Order Comment: Speci men Type: BLOOD SPECIMEN Performed By: #### 5 7021-8 #### [facility] CLIA [id number] [address] [place] [address] Monocytes/100 WBC (Bld) 6.2 % Normal [facility] Comment on above: Order Comment: Speci men Type: BLOOD SPECIMEN Performed By: #### 5 7021-8 #### [facility] CLIA [id number] [address] [place] [address] Neutrophils (Bld) [#/Vol] 11.20 10*3/uL High 1.45-7.50 [facility] Comment on above: Order Comment: Speci men Type: BLOOD SPECIMEN Performed By: #### 5 7021-8 #### [facility] CLIA [id number] [address] [place] [address] Neutrophils/100 WBC (Bld) 75.3 % Normal [facility] Comment on above: Order Comment: Speci men Type: BLOOD SPECIMEN Performed By: #### 5 7021-8 #### [facility] CLIA [id number] [address] [place] [address] Nucleated RBC (Bld) [#/Vol] 10*3/uL Normal <0.01 [facility] Comment on above: Order Comment: Speci men Type: BLOOD SPECIMEN Performed By: #### 5 7021-8 #### [facility] CLIA [id number] [address] [place] [address] Nucleated RBC/100 WBC (Bld) [Ratio] 0.0 /100 WBC Normal 0.0 [facility] Comment on above: Order Comment: Speci men Type: BLOOD SPECIMEN Performed By: #### 5 7021-8 #### [facility] CLIA [id number] [address] [place] [address] Platelet mean volume (Bld) [Entitic vol] 11.5 fL Normal 9.0-12.7 [facility] Comment on above: Order Comment: Speci men Type: BLOOD SPECIMEN Performed By: #### 5 7021-8 #### [facility] CLIA [id number] [address] [place] [address] Platelets (Bld) [#/Vol] 229 10*3/uL Normal 150-400 [facility] Comment on above: Order Comment: Speci men Type: BLOOD SPECIMEN Performed By: #### 5 7021-8 #### [facility] CLIA [id number] [address] [place] [address] RBC (Bld) [#/Vol] 4.08 10*6/uL Normal 3.90-5.20 [facility] Comment on above: Order Comment: Speci men Type: BLOOD SPECIMEN Performed By: #### 5 7021-8 #### [facility] CLIA [id number] [address] [place] [address] WBC (Bld) [#/Vol] 14.89 10*3/uL High 3.70-11.00 [facility] Comment on above: Order Comment: Speci men Type: BLOOD SPECIMEN Performed By: #### 5 7021-8 #### [facility] CLIA [id number] [address] [place] [address] CONSULT PROGon 03-20-2020 CONSULT PROG HNO ID: [id number] Author: Marissa Banks Service: Endocrinology Author Type: Physician Type: Consult Progress Note Filed: 03/20/2020 8:30 AM Note Text: ENDOCRINOLOGY CONSULT PROGRESS NOTE SERVICE DATE: 03/20/2020 SERVICE TIME: 6:50 AM Subjective INTERVAL HPI: Following for DM type 2, consult on 03/14 for hyperglycemia. Adm on 03/08 with DKA, R MCA stroke, COVID 19. pt agitated off and on; was in restraints, off now. Had ORIF left ankle fx on 03/19. Notes and orders reviewed. Diet: DIET CARBOHYDRATE CONTROLLED p.o intake poor/erratic, needs help with meals Activity: bedrest Review of Systems: unable to talk to pt on phone; pt not picking up phone; D/W RN, no nausea, c/o pain left foot (surgery site) pain, no SOB; rested well Current Facility-Administered Medications Medication Dose Route Frequency - docusate 100 mg oral liquid (DIOCTO, COLACE) 100 mg ORAL/FEEDING TUBE BID - bisacodyl 10 mg suppository (DULCOLAX) 10 mg RECTAL DAILY PRN - ondansetron (PF) 4 mg injection (ZOFRAN) 4 mg INTRAVENOUS q 4 H PRN - acetaminophen 650 mg tab(s) (TYLENOL) 650 mg ORAL/FEEDING TUBE q 4 H PRN Or - acetaminophen 650 mg CUP (TYLENOL) 650 mg ORAL/FEEDING TUBE q 4 H PRN Or - acetaminophen 650 mg suppository (TYLENOL) 650 mg RECTAL q 4 H PRN - fentaNYL 50 mcg/mL 25 mcg injection (SUBLIMAZE) 25 mcg INTRAVENOUS q 2 H PRN - miconazole 2 % 1 application topical powder (LOTRIMIN AF, DESENEX) 1 application TOPICAL BID - atorvastatin 80 mg tab(s) (LIPITOR) 80 mg ORAL/FEEDING TUBE AT BEDTIME - dextrose 40 % 15 g 15 g ORAL PRN Or - glucagon 1 mg injection 1 mg INTRAMUSCULAR PRN Or - dextrose 50% in water 25 mL syringe 12.5 g INTRAVENOUS PRN - sodium chloride 0.9 % (flush) 10 mL (BD POSIFLUSH) 10 mL INTRAVENOUS q 12 H - sodium chloride 0.9 % (flush) 20 mL (BD POSIFLUSH) 20 mL INTRAVENOUS PRN - pill sheet rock hanger (patient-specific) 1 Each Miscell. (Med.Supl.;Non-Drugs) PRN - ondansetron 4 mg tab(s) (ZOFRAN) 4 mg ORAL/FEEDING TUBE q 6 H PRN - nystatin 5 mL oral liquid (MYCOSTATIN) 5 mL MUCOUS MEMBRANE QID - insulin lispro pen (rapid acting) (HumaLOG KWIKPEN) SUBCUTANEOUS w MEALS - dilTIAZem CD 180 mg cap(s) (CARDIZEM CD, CARTIA XT) 180 mg ORAL DAILY - [MAR Hold due to Transfer] dexAMETHasone 6 mg tab(s) (DECADRON) 6 mg ORAL DAILY WITH BREAKFAST - pantoprazole DR 40 mg tab(s) (PROTONIX) 40 mg ORAL DAILY (6 AM) - hydrALAZINE 25 mg tab(s) (APRESOLINE) 25 mg ORAL q 6 H - NaCl 0.9% iv infusion 100 mL/hr INTRAVENOUS CONTINUOUS - melatonin 6 mg tab(s) 6 mg ORAL HS PRN - insulin lispro 8 Units pen (rapid acting) (HumaLOG KWIKPEN) 8 Units SUBCUTANEOUS w MEALS - insulin NPH human 9 Units injection pen (intermediate acting) (NovoLIN N, HumuLIN N) 9 Units SUBCUTANEOUS DAILY (8 AM) - insulin NPH human 6 Units injection pen (intermediate acting) (NovoLIN N, HumuLIN N) 6 Units SUBCUTANEOUS AT BEDTIME Objective PHYSICAL EXAM: GENERAL: pt not examined due to COVID isolation; D/W RN, drowsy due to pain meds; responding to commands; not dyspneic BP 152/72 Pulse 111 Temp (Src) 97.7 (Oral) Resp 18 Ht 5' 6" (1.68m) Wt 217 lb 1.6 oz (98.5kg) SpO2 100% BMI 35.06 kg/(m2). O2 Therapy: Room Air DATA: Diagnostic tests reviewed for today's visit: Most recent labs and imaging results. Last 24 hr BS reviewed. Recent Labs 03/20/20 0529 03/20/20 0527 03/19/20201303/19/20 1718 03/19/20 1154 03/19/20 0830 03/18/20 0420 03/18/20 0420 GLUC -- 134* -- -- -- -- -- 178* PCGLUCOSE 145* -- 164* 180* 157* 185* < > -- < > = values in this interval not displayed. Assessment/Plan Type 2 diabetes mellitus with diabetic neuropathy, without long-term current use of insulin (HCC) POA: Yes Assessment AND Plan: uncontrolled; A1c 9.6 (was 12.6 in October,); pt says long-standing duartion, home Rx Glipizide 5 mg bid and Januvia 100 mg daily. BS "high" at home per pt. On steroids, started on NPH 12 units bid and Regular 5 units started per natalee team. changed Rx to NPH 12-0-0-12 Humalog 8 units tid on 03/14 pm. BS low at hs, D/W RN, NPH held on 03/14 night. Changed NPH to 10-0-0-6 and contd Humalog 8 units tid (reduce if eats <30%) on 03/15. BS high all day on 03/15 and 03/16. Ate poorly on 03/16, D/W RN;pt was in restraints; off on 03/17. Increased NPH to 12-0-0-8 and Humalog to 12 units tid from 03/17. BS were still high; increased Humalog to 14 units tid from 03/18 am; contd NPH. NPO for OR on 03/19; D/W RN, half dose on am NPH given( no steroids). Off steroids now; insulin reduced per primary, NPH 9-0-0-6 and Humalog 8 units tid last night. Will add oral agents Amaryl 4 mg daily am and Januvia 100 mg daily from today; try to wean off insulin; use NPH 8-0-0-4, stop prog Humalog and use SSI ac for BS >150. Acute right MCA stroke (HCC) POA: Yes Assessment AND Plan: per neuro Respiratory tract infection due to COVID-19 virus POA: Yes Assessment AND Plan: was on decadron; off now from 03/19 Closed left ankle fracture POA: Yes Assessment AND Plan: per ortho; had ORIF on 03/19 Rhabdomyolysis POA: Yes Assessment AND Plan: resolved Diabetic ketoacidosis without coma associated with type 2 diabetes mellitus (HCC) POA: Yes Assessment AND Plan: resolved, was on IV insulin Essential hypertension POA: Yes Assessment AND Plan: Dysphagia POA: Yes Assessment AND Plan: on dysphagia diet Chronic kidney disease, stage 3, mod decreased GFR POA: Yes Assessment AND Plan: creat 1.00(1.03)(1.02)(0.99) Acute kidney injury superimposed on chronic kidney disease (HCC) POA: Yes Assessment AND Plan: resolved Elevated troponin POA: Yes Assessment AND Plan: SIGNATURE: Marissa Banks MD PATIENT NAME: Lisa Shirley DATE: March 20, 2020 TIME: 8:30 AM PAGER: [phone] Normal [facility] NURSING PROGon 03-20-2020 NURSING PROG HNO ID: [id number] Author: Aron (Rn) JONNY Rothman Service: ? Author Type: Registered Nurse Type: Nursing Progress Note Filed: 03/19/2020 10:33 PM Note Text: Nursing Progress: Topic: RESTRAINT NON-VIOLENT PATIENT NAME: Lisa Shirley PATIENT LOCATION: [place] [address]/[facility]* The patient demonstrates Lack of Understanding/Ability to Comply with Safety Directions, Impulsive Behavior as evidenced by the following behaviors attempting to climb out of bed, pulling at PICC line which pose an imminent danger to self or others. The following interventions were attempted but were not effective in protecting the patient's safety: Alarms, Bed in Low/Locked Position, Gauze Wrap/Sleeve IV Site Next, a comprehensive assessment was performed and warranted placing the patient in Soft Bilateral Wrists, the least restrictive restraint needed to protect the patient's safety. Ongoing safety assessments and evaluation for earliest removal of restraints will be performed. DATE: March 19, 2020 TIME: 10:31 PM Aron Rothman RN [facility] PROGRESSon 03-20-2020 PROGRESS HNO ID: [id number] Author: Panda Coulter Service: Hospital Medicine Author Type: Physician Type: Progress Notes Filed: 03/20/2020 7:38 PM Note Text: DEPARTMENT OF HOSPITAL MEDICINE PROGRESS NOTE SERVICE DATE: 03/20/2020 SERVICE TIME: 7:28 PM Hospital Medicine/Primary Attending: Panda Coulter MD NIGHT AND WEEKEND COVERAGE: [place] COVERAGE: From 7am - 7pm, please call [phone] After 7pm, please call cross cover pager #[phone] Subjective INTERVAL HPI: patient with leukocytosis but remains afebrile. Seen by speech swallow. S/p surgery. rec is for rehab it seems. MEDICATIONS: Reviewed Objective PHYSICAL EXAM: BP 142/84 Pulse 100 Temp (Src) 97.5 (Oral) Resp 18 Ht 5' 6" (1.68m) Wt 217 lb 1.6 oz (98.5kg) SpO2 100% BMI 35.06 kg/(m2). O2 Therapy: Room Air Physical Exam Performed General: awake alert oriented x 3, no acute distress, resting in bed HEENT: eomi, some dysarthria, oral mucosa moist, some facial droop CV: s1s2 normal, rrr, no mrg no jvd Lung: bilateral air entry no wheezes no rales no rubs no rhonchi Abdomen: soft nt nd bowel sounds present Extremities: no marked edema skin warm and moist radial pulse 2+ Neuro: facial droop and dysarthria are present, left arm and leg weakness, monitor Lines, Drains, and Airways Line Central Line Double Lumen 03/12/20 1416 Peripherally Inserted (PICC) Right Arm Through Introducer 5.0 Micronesian 8 days Drain External Collection Device 03/19/20 0042 1 day DATA: Diagnostic tests reviewed for today's visit: Most recent labs and imaging results. Assessment/Plan Principal Problem: Summary: patient admitted after fall and was found to have cva. Managed by neuro. Also with diabetes mellitus and endocrinology is following. Patient on bp meds for hypertension. Speech swallow following for dysphagia. covid positive and previously received course of steroids and remdesivir. Patient was found to have ankle fracture and is s/p or with ortho. F/u orthopedic and neuro and endocrine recs. If remains medically stable might be able to go to a rehab soon. 1. ?Fall: POA, stable PT OT Recommendation is for rehab ? 2. ?Acute CVA: POA, stable Neurology on board Has had echo (ef 55%, no pfo), cta, mri done Asa and statin ? Event monitor on dc as per neuro, event record hookup was ordered in [place] ? 3. ?Diabetes mellitus: POA, stable Monitor accuchecks Was on steroid which can contribute to hyperglycemia but completed course, monitor accuchecks, may need to go down on insulin? Endocrine on board, monitor ? As patient completed course of steroids, lowered insulin doses for now, but monitor accuchecks and follow up endocrinology recommendations ? Sliding scale Continue to monitor ? Consulted?endocrine as hba1c has been elevated, recently 9.6 (12.6 prior), recs appreciated ? 4. ?Hypertension: POA, stable Patient was taking cardizem at home cardizem 180 mg po daily for now with holding parameters, monitor Hydralazine 25 mg PO Q6?hours added Continue to monitor ? 5. ?Dysphagia: POA, stable Speech/swallow on board Dysphagia level 2 with thin liquid was recommended Had mbs ? 6. ?Jihan: POA, stable Improved Received ivf prior ? 7. ?Rhabdomyolysis: POA, stable resolved ? 8. ?Obesity bmi 35: POA, stable ? 9. ?COVID positive: POA, stable gfr 55, lfts stable Completed course of steroids Received course of remdesivir Was doing well on room air Afebrile right now ? 10. ?Ankle fracture: POA, stable F/u ortho recs ? S/p orif of L trimalleolar ankle fracture/dislocation ? Repeat pt ot eval as per care management ? Patient nwb to lle as per ortho VTE Prophylaxis: heparin dvt px resumed as patient had been receiving it prior Disposition: Acute Rehab SIGNATURE: Panda Coulter MD PATIENT NAME: Lisa Shirley DATE: March 20, 2020 TIME: 7:28 PM PAGER/CONTACT #: [phone] etx [phone] [facility] PROGRESS HNO ID: [id number] Author: Leland Herrera Service: Orthopaedic Surgery Author Type: Physician Type: Progress Notes Filed: 03/20/2020 12:04 PM Note Text: ORTHOPAEDIC SURGERY DAILY PROGRESS NOTE ORTHO STAFF: Patient seen and examined. Agree with resident assessment and plan noted below. Post-op films okay, reviewed in detail with patient. Answered all questions regarding to ankle. Patient difficult to redirect and does not have good insight into extent of current medical issues (stroke, DKA, ankle fracture, Covid). Leland Herrera MD ASSESSMENT: 74 y/o woman POD #1 s/p ORIF left trimalleolar ankle fracture with syndesmotic fixation. PLAN: - Management per primary team. - Pain control. - Weight Bearing Status: NWB LLE. - Dressing(s): Short leg splint on LLE. Keep splint clean and dry. - PT/OT: Evaluation AND recommendations. - DVT PPx: SCD. Ru for prophylaxis per primary team. No chemical prophylaxis indicated from orthopaedic standpoint. - Antibiotic PPx: Ancef 2 g Q8H for 24 hours. - Anticipated Length of Stay/Disposition: 2-3 days/SNF. INTERVAL HPI: Per nursing, pain well controlled. Splint clean, dry, intact. Rest of visit performed via chart review. OBJECTIVE: BP 152/72 Pulse 111 Temp 36.5 ?C (97.7 ?F) (Oral) Resp 18 Ht 167.6 cm (5' 6") Wt 99.5 kg (219 lb 4.8 oz) SpO2 100% BMI 35.40 kg/m? Exam: Not performed due to Covid precautions. Visit performed via chart review. Recent Labs 03/20/20 0527 03/19/20 0622 03/18/20 0420 CREAT -- -- 1.03* BUN -- -- 26* NA -- -- 141 K -- -- 3.9 CHLOR -- -- 105 CO2 -- -- 25 ANION -- -- 11 GLUC -- -- 178* CA -- -- 8.1* WBC 14.89* 12.84* -- HB 12.7 12.9 -- HCT 37.0 38.7 -- PLT 229 253 -- COAGS: APTT 23.7 03/08/2020 PT INR 1.1 03/12/2020 SED RATE/CRP: No results found for this basename: wsr:*,crp:* Imaging: XR Left ankle: Interval placement of orthopaedic hardware and fracture reduction. SIGNATURE: Sean García MD PATIENT NAME: Lisa Shirley DATE: 03/20/20 TIME: 6:08 AM PAGER/CONTACT #: [phone] [facility] THERAPY NTon 03-20-2020 THERAPY NT HNO ID: [id number] Author: Roxy (Pt) Bhanu Service: Physical Therapy Author Type: Physical Therapist Type: Therapy (PT/OT/Speech/Resp) Filed: 03/20/2020 4:20 PM Note Text: Physical Therapy Evaluation SERVICE DATE: 03/20/2020 SERVICE TIME: 1530 to 1550 ROOM: [place] [address] Recommended Discharge Disposition: Acute Rehab Justification For Post Acute Needs: Anticipate patient will tolerate 3 hours of daily therapy at the time of admission to post-acute setting;Living the community premorbidly;Medically complex;Motivated;Willing to participate PT 6 Clicks Score: 8 Precautions/Activity Restrictions: Fall Risk;Lines/Tubes/Drains;Ramon ght Bearing Restrictions;Bed/Chair Alarm Precaution/Activity Restriction Comments: Covid + Isolation Type: Contact/Droplet(eyewear) Extremity With Weight Bearing Restricted: Left Lower Extremity Left Lower Extremity Weight Bearing Status: NWB Current Hospital Course: Found down at home, 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 and left tri-malleolar fracture, and now COVID positive. s/p ORIF trimallolar fx 03/19/20. Reason for Hospital Admission: Stroke Relevant Past Medical History: CAD, DM, CKD stage 3, chronic LBP, major depressive disorder Response to Therapy Interventions: Low activity tolerance Physical Therapy Problem List: Decreased Activity Tolerance;Decreased Range Of Motion;Decreased Strength;Functional Mobility Impairment;Balance Impaired Treatment Interventions: Education;Energy Conservation Training;Functional Mobility Training;Balance Training;Neuromuscular Re-education Home Environment Patient Lives With: Self/Alone Assistance Available: None Entry To Home: Stairs;With Rail Number Of Stairs Into Home: 4 Number Of Stairs To Bed/Bath: 0 Tub/Shower Type: Walk in Laundry: Minimally completes Equipment Owned: Grab Bars-Shower Prior Functional Level: (driving, activity limited by LBP) Prior Functional Level Comments: 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 d/t 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 pain Patient Report: patient is confused she needs reoriented CURRENT FUNCTIONAL STATUS: Most recent performance Current Functional Mobility Assist Level Additional Information Rolling Supine to Sit Moderate Assistance Sit to Supine Moderate Assistance Scooting Maximal Assistance Sit to Stand Additional Information Stand to Sit Bed to Chair Toilet/Commode Gait Stairs Curb Step Car Transfer Blank murcia indicate activity not attempted Balance: Static Sitting Static Sitting Balance: Fair Patient able to maintain balance with handhold support, may require occasional minimal assistance Activity Tolerance: Sitting Activity Sitting Activity: O2 sats drop with sitting activity Sitting Activity Tolerance (in minutes): 8 JH-HLM: 3: Sit at edge of bed Learning/Educational Needs: Discharge Plan;Disease Process;Functional Activities/Mobility;Plan of Care;Respiratory Function;Stroke Education Goals for Plan of Care: Patient /Caregiver Goals: Go To Rehab Rolling with: Contact Guard Assistance Transfer supine to/from sit with: Contact Guard Assistance Transfer sit to/from stand with: Contact Guard Assistance Ambulate with: Minimal Assistance Distance: 5-10 feet NWB Left LE Device: Wheeled Walker Progress Toward Goals: Progressing slower than expected Due To: acuity; prolonged hospitalization Rehab Potential: Good Patient will be discontinued from Physical Therapy when no further skilled needs are identified in this setting. PLAN: Treatment Frequency (times per week): 5(2-4) Current admission Plan of Care developed with: Patient TREATMENT INTERVENTIONS: Therapy Diagnosis: Reduced mobility-other;Muscle Weakness (generalized);Difficulty walking-musculoskeletal Interventions Provided: Re-evaluation $ Reevaluation ([id number]) Billed Units: 1 unit Post op 03/19/20 Total Timed Code Treatment Minutes: 25 Total Treatment Time (minutes): 20 Please see discipline specific clinical documentation flowsheet for complete details for this therapy evaluation/treatment. SIGNATURE: Roxy Drummond PT PATIENT NAME: Lisa Shirley DATE: March 20, 2020 TIME: 4:20 PM [facility] THERAPY NT HNO ID: [id number] Author: Shaista Teran/Darion Melendez Service: Occupational Therapy Author Type: Occupational Therapist Type: Therapy (PT/OT/Speech/Resp) Filed: 03/20/2020 4:14 PM Note Text: Occupational Therapy Treatment(Re-Evaluation) SERVICE DATE: 03/20/2020 SERVICE TIME: 1545 to 1600 ROOM: [id number] Recommended Discharge Disposition: Acute Rehab Recommended Discharge Disposition Comments: Acute rehab to increase strength, activity tolerance, visual deficits, and independence with ADLs and functional mobility to return to independent baseline Justification For Post Acute Needs: Motivated;Willing to participate;Anticipate patient will tolerate 3 hours of daily therapy at the time of admission to post-acute setting OT 6 Clicks Score: 14 Precautions/Activity Restrictions: Fall Risk;Lines/Tubes/Drains;Ramon ght Bearing Restrictions;Bed/Chair Alarm Precaution/Activity Restriction Comments: Covid + Isolation Type: Contact/Droplet(eyewear) Extremity With Weight Bearing Restricted: Left Lower Extremity Left Lower Extremity Weight Bearing Status: NWB Current Hospital Course: Found down at home, 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 and left tri-malleolar fracture, and now COVID positive. s/p ORIF trimallolar fx 03/19/20. Reason for Hospital Admission: Stroke Relevant Past Medical History: CAD, DM, CKD stage 3, chronic LBP, major depressive disorder Response to Therapy Interventions: Slow progression with ADLs/IADLs, Slow progression with functional activities/skills, Multiple ongoing medical issues, Needs frequent redirection or re-instruction, Limited participation Occupational Therapy Problem List: Functional Mobility Impairment;Decreased Strength;Impaired Visual Motor Skills;Sensory Deficit;Decreased Range Of Motion;Decreased Activity Tolerance;Impaired Self Care;Safety Deficits;Pain Cognition/Communication Deficits Communication Deficits: (n/a) Orientation Deficits: Confused Responsiveness: Alert Follows Commands: 1-step Commands, Cueing Needed Cueing to Follow Commands: Moderate Attention Deficits: Divided Treatment Interventions: Self Care / Home Management;Functional Mobility Training;Strengthening;Neur omuscular Re-education;Education;Ener gy Conservation Training Home Environment Patient Lives With: Self/Alone Assistance Available: None Entry To Home: Stairs;With Rail Number Of Stairs Into Home: 4 Number Of Stairs To Bed/Bath: 0 Tub/Shower Type: Walk in Laundry: Minimally completes Equipment Owned: Grab Bars-Shower Prior Functional Level: (driving, activity limited by LBP) Prior Functional Level Comments: 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 d/t 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 pain CURRENT FUNCTIONAL STATUS: Most recent performance Current Activities of Daily Living Assist Level Additional Information Feeding Minimal Assistance Grooming Minimal Assistance Bathing Upper Body Moderate Assistance Bathing Lower Body Maximal Assistance Dressing Upper Body Moderate Assistance Dressing Lower Body Maximal Assistance Toileting Maximal Assistance Instrumental Activities of Daily Living Assist Level Additional Information Meal/Beverage Prep Cleaning Laundry Medication Management with Strategies Functional Mobility Assist Level Additional Information Rolling Moderate Assistance max cues for initiation and follow through Supine to Sit Moderate Assistance max cues for maintaining sit edge of bed Sit to Supine Moderate Assistance max cues for safety Scooting Additional Information Pt declines, returns suddenly to supine. Sit to Stand Additional Information Stand to Sit Bed to Chair Toilet/Commode Functional Mobility Blank murcia indicate activity not attempted Range of Motion: ROM Limitation Comments ROM Limitation Comments: RUE grossly WFL with encouragement to move through full ROM. LUE shoulder flexion 0-100 AROM, WFL AAROM. "I"m just so tired" Strength: Upper Extremity Comments Right Upper Extremity Strength Comments: 3/5 to 3+/5 proximal; 4-/5 distally Left Upper Extremity Strength Comments: 3-/5 proximally; 3-/5 to 3+/5 distally Tone Abnormalities: (mildly hypotonic left shoulder) Coordination Deficits: In hand manipulation;Rapid alternating movements;Finger to nose Finger to Nose Impairment: Left Rapid Alternating Movements Impairment: Left Hand Manipulation Impairment: Left Light Touch/Deep Pressure Deficit: Mildly impaired but shows improvement Body Awareness Deficit: Left side; improving slowly with increased functional use of L hand with cuing Vision Deficits: Visual Neglect(mild/left) Balance: Static Sitting;Dynamic Sitting Static Sitting Balance: Fair(fair+) Patient able to maintain balance with handhold support, may require occasional minimal assistance(fair+) Dynamic Sitting Balance: Fair Patient accepts minimal challenge, able to maintain balance while turning head/trunk Activity Tolerance: Sitting Activity Sitting Activity: feeding /grooming tasks seated EOB Sitting Activity Tolerance (in minutes): 9 Learning/Educational Needs: Functional Activities/Mobility;Safety; Self Care Goals for Plan of Care: Patient /Caregiver Goals: Go To Rehab Able to perform HEP with: Verbal Cues Only(UE strengthening ) Grooming with: Minimal Assistance Upper Body Bathing with: Minimal Assistance Upper Body Dressing with: Minimal Assistance Lower Body Bathing with: Moderate Assistance Lower Body Dressing with: Moderate Assistance Chair Transfer with: Moderate Assistance Toilet Transfer with: Moderate Assistance(To BS ) Tolerate (minutes of functional activity): 10 Functional Activity with: Moderate Assistance Additional Goal 1: Pt will demo increased L sided awareness by attending to objects placed on L side with min verbal cues Additional Goal 2: Pt will demo increased actvity tolerance by completing ADL in stranding for 1 minute Additional Goal 3: Pt will demo increased cognition by scoring a 26/30 on the MoCA independently Demonstrate Competence With Education with: Verbal Cues Only Progress Toward Goals: Progressing slower than expected Due To: s/p ORIF L ankle, length of stay Rehab Potential: Good Patient will be discontinued from Occupational Therapy when no further skilled needs are identified in this setting. PLAN: Treatment Frequency (times per week): 5(1-5) Current admission Plan of Care developed with: Patient TREATMENT INTERVENTIONS: Therapy Diagnosis: Reduced mobility-other;Decreased activities of daily living (ADL);Muscle Weakness (generalized) Interventions Provided: Re-evaluation $ Reevaluation ([id number]) Billed Units: 1 unit Training AND education provided in: Role of Occupational Therapy, Bed mobility The following therapeutic skills were used: Activity dosing, Cues for sequencing/proper technique for activity, Physical assist Total Timed Code Treatment Minutes: 24 Total Treatment Time (minutes): 15 Please see discipline specific clinical documentation flowsheet for complete details for this therapy evaluation/treatment. SIGNATURE: SUKHI Betancourt/Blue PATIENT NAME: Lisa Shirley DATE: March 20, 2020 TIME: 4:14 PM [facility] THERAPY NT HNO ID: [id number] Author: Abbie (Traffic Reporter) ALEYDA De La Torre/FLOW MANAGER Service: Speech/Swallow Author Type: Speech Language Pathologist Type: Therapy (PT/OT/Speech/Resp) Filed: 03/20/2020 11:27 AM Note Text: Speech Therapy Treatment SERVICE DATE: 03/20/2020 SERVICE TIME: 1000 to 1030 ROOM: [place] [address] IMPRESSION: Patient demonstrates oral pharyngeal dysphagia which is negatively impacting his/her ability to effectively maintain adequate nutrition and hydration and/or airway safety. Attention to task has improved which results in greater ability to chew and swallow. Recommend upgrade diet as mentioned below. Patient demonstrates cognitive linguistic deficits which are negatively impacting the patient's ability to effectively communicate basic ADL medical and social wants/needs with familiar and unfamiliar communication partners. Diet Recommendations: Dysphagia Level 2 (Dysphagia Mechanically Altered) Thin Liquids IDDSI Level 0 Medications whole in puree (pudding/applesauce) Swallowing Precautions Recommendations: Alert (patient should be fully alert for P.O. intake) 1:1 Supervision Sit upright 90 degrees for all PO Small Bite/Sip No straws Nursing Recommendations: See swallow guide posted in patients room;Reinforce use of swallowing strategies;Reinforce use of communication strategies Instrumental Swallow Assessment Recommendations: Modified Barium Swallow Study (MBSS)(Completed 03/13) Recommended Discharge Disposition: Acute Rehab Justification for Recommended Discharge Disposition: Patient can tolerate 3 hours of therapy per day;Willing to participate;Medically complex;Good sitting tolerance;Motivated Current Hospital Course: 03/19/20 - ORIF of left trimalleolar ankle fracture, soft wrist restraints with general confusion Reason for Hospital Admission: Stroke Rehabilitation Precautions: Modified Diet;Aspiration Precautions;Dysphagia;Cogni tive Linguistics Deficits;Communication Deficits;Isolation;Visual Deficits;Diabetic Isolation Type: Contact/Droplet(eyewear) NPO Precautions: (n/a) Reason for Speech Therapy Consult: Stroke: assess swallowing and speech/cognition Relevant Past Medical History: Anxiety, Depression, DM, Fatigue, HTN, Morbid obesity, Panic state as acute reaction to stress, sleep disorder, Stroke, DM Response to Therapy Interventions: Aspiration Risk, Cognitive Deficits, Confusion interferes with education, Improved Intelligibility of speech, Improved tolerance to activity, Notable progression with tolerance of PO intake Continue skilled FLOW MANAGER services due to : Dysphagia, Communication difficulties, Safety concerns, Education / training needs Speech Therapy Problem List: Dysphagia;Cognitive-Linguis tic Impairment;Dysarthria Patient Report: I want to get out of here. I want better food. Current Status Current Feeding Method: Oral Current Diet Textures: Dysphagia Level 1 (Pureed), Mildly Thick Liquids IDDSI Level 2 (Cross Anchor Thick) Swallow Position Of Patient During Assessment: Upright In Bed Consistencies Presented: Ice Chips, Thin Liquids IDDSI Level 0, Soft Solid Response to Consistencies Presented: Improved swallow; difficulty with straw and dry solids Patient more awake and attentive Vocal quality is clear Lingual protrusion, elevation and strength within functional limits Left labial asymmetry remains moderate; poor labial retraction or protrusion Mild anterior oral spillage onto lips with dry solid and thin liquids Patient demonstrates ability to chew a moist solid without oral residual and no obvious signs/symptoms of aspiration No signs/symptoms of aspiration with puree Able to swallow a thin liquid from cup without signs/symptoms of aspiration; use of straw consistently causes coughing Patient has reportedly not been eating with dislike for puree textures and nectar-thick liquids adding to the lack of eating Recommend advance diet to soft, solids and thin liquids Patient will benefit from Speech Therapy for swallow strategies and oral pharyngeal strengthening as well as cognition Speech/Language/Cognition Patient awake and talkative Left labial asymmetry is moderate Speech is 100% clear at word, sentence and conversational level despite left labial asymmetry Greater attention with no cueing needed to attend during this 30 minute visit Moderate cueing required to focus to topic and task; with patient pre-occupied on wanting to leave or talk to certain people; limited communication due to perseveration on these topics Able to look to the left and identify objects on her direct left side on 5/10 trials Functional Communication Measure (FCM) Current FCM Level: Swallowing Level;Motor Speech;Attention FCM Swallowing Level: 5 FCM Attention Level: 3 FCM Motor Speech Level: 6 Patient /Caregiver Goals: Eat/Drink Without Restrictions;Improve Cognition;Improve Communication Goals for Plan of Care: Goals: SWALLOWING: Patient / Caregiver will demonstrate knowledge of taught compensatory strategies and dietary consistency recommendations to optimize functional swallow function without overt clinical signs and symptoms of aspiration or dysphagia Patient will tolerate Dysphagia Level 1 (Pureed) diet consistency while utilizing compensatory/swallowing strategies given maximal cues in 90% of trials so that the patient will minimize the signs/symptoms of dysphagia. - Goal met 03/20/2020 Patient will tolerate Mildly Thick Liquids IDDSI Level 2 (Cross Anchor Thick) consistency while utilizing compensatory/swallowing strategies given maximal cues in 90% of trials so that the patient will minimize the signs/symptoms of dysphagia. - Goal met 03/20/2020 New swallow goals 03/20/2020: Patient will tolerate Dysphagia Level 2 (Dysphagia Mechanically Altered) diet consistency while utilizing compensatory/swallowing strategies given minimal cues in 90% of trials so that the patient will minimize the signs/symptoms of dysphagia. Patient will tolerate Thin Liquids IDDSI Level 0 consistency while utilizing compensatory/swallowing strategies given minimal cues in 90% of trials so that the patient will minimize the signs/symptoms of dysphagia. Patient, Caregiver will demonstrate adequate return of knowledge of all compensatory strategies/instruction to effectively assist the patient in immediate safety with oral intake and swallowing. [throat-clear, reswallow; small bites/sips; slow rate; no straws] - see above 03/20/2020 Patient will participate with swallow re-assessment to determine if food and drink texture can be safely upgraded. - Ongoing goal 03/20/2020 Therapeutic Tasks: Lingual/Pharyngeal/Laryngea l strengthening tasks to improve swallowing function - see above 03/20/2020 COGNITION: Patient will demonstrate knowledge of taught compensatory strategies for functional cognitive-linguistic skills Cognitive Goals: Patient will improve visual left scanning given maximal cues to 25% accuracy so that the patient may demonstrate general awareness of surroundings for personal safety. - see above 03/20/2020 SPEECH / LANGUAGE: Patient will demonstrate knowledge of taught compensatory strategies for functional communication Speech Goals: Patient will improve speech intelligibility at the word level to 60% intelligibility given maximal cues so that the patient can functionally communicate with caregivers. - Goal met 03/20/2020 Patient will demonstrate adequate return of knowledge of all compensatory strategies/instruction to effectively assist the patient in immediate speech production skills. - Goal met 03/20/2020 Progress Toward Goals: Progressing as expected Speech Rehab Potential: Good Patient will be discontinued from speech therapy when no further skilled needs are identified in this setting. PLAN: Treatment Frequency (times per week): 3 Current admission Treatment Interventions: Dysphagia Management;Dysarthria Management;Cognitive-Lingui stic Management Plan of Care Developed with: Patient Results and Recommendations Discussed With: Patient;Nurse TREATMENT INTERVENTIONS: Therapy Diagnosis: Other speech and language deficits following unspecified cerebrovascular disease;Dysarthria following cerebral infarction;Dysphagia following cerebral infarction Interventions Provided: Dysphagia Therapy (89116);Speech Therapy (38861) $ Dysphagia Therapy (61602) Billed Units: 1 unit $ Speech Therapy (37600) Billed Units: 1 unit Training and education provided in: Swallowing Strategies, Dysphagia Management, Motor Speech Skills The following therapeutic skills were used:: Tactile cuing, Repetitive task learning, Verbal cuing, Interpretation and instruction of instrumental assessment Total Treatment Time (minutes): 30 Home Environment Prior Functional Level: Within Functional Limits Patient Lives With: Self/Alone Assistance Available: multimedia services coordinator Prior Swallowing Function/Diet Textures: Regular Consistency;Thin Liquids IDDSI Level 0 Please see discipline specific clinical documentation flowsheet for complete details for this therapy evaluation/treatment. SIGNATURE: Abbie De La Torre CCC-FLOW MANAGER PATIENT NAME: Lisa Shirley DATE: March 20, 2020 TIME: 11:08 AM Normal [facility] 03-19-2020 [facility] HNO ID: [id number] Author: Fozia Jean-BaptisteRtJade Myrick Service: Radiology Author Type: Motor And Generator Brush Cutter Type: [facility] Filed: 03/19/2020 4:50 PM Note Text: Radiology Service Progress Note PATIENT NAME: Lisa Shirley DATE OF SERVICE: March 19, 2020 TIME: 4:50 PM PATIENT IDENTITY VERIFICATION COMPLETED USING TWO (2) IDENTIFIERS: Name and Date of confirmed by identification band. FALL SCREENING: Has the patient had 2 falls in the last year or 1 fall with injury or currently using an Ambulatory Assistive Device (Walker, Cane, Wheelchair, Crutches, etc.)? Inpatient: Screened on floor PATIENT GENDER DATA: Female. status: : No status: NO. PATIENT RELEVANT IMPLANT DATA REVIEWED: Not Applicable RADIOLOGY DEPARTMENT: General X-ray: Exam(s) Completed: Lower Extremity X-Ray(s): Ankle, Left: PERIPHERAL IV DATA: Not applicable SIGNED BY: RT Marleny March 19, 2020 4:50 PM [facility] HNO ID: [id number] Author: Elan Jean-BaptisteRtJade Cedeno Service: Radiology Author Type: Motor And Generator Brush Cutter Type: [facility] Filed: 03/19/2020 2:17 PM Note Text: Radiology Service Progress Note PATIENT NAME: Lisa Shirley DATE OF SERVICE: March 19, 2020 TIME: 2:16 PM PATIENT IDENTITY VERIFICATION COMPLETED USING TWO (2) IDENTIFIERS: Name and Date of obtained from a relative, guardian or prior caregiver.. FALL SCREENING: Has the patient had 2 falls in the last year or 1 fall with injury or currently using an Ambulatory Assistive Device (Walker, Cane, Wheelchair, Crutches, etc.)? Inpatient: Screened on floor PATIENT GENDER DATA: Female. status: : No status: NO. PATIENT RELEVANT IMPLANT DATA REVIEWED: Not Applicable RADIOLOGY DEPARTMENT: OPERATIVE XRAYS FOR O.R.I.F. LEFT ANKLE PERIPHERAL IV DATA: Not applicable SIGNED BY: YOON Calderon March 19, 2020 2:16 PM [facility] ANES POSTPROC EVALon 020 ANES POSTPROC EVAL HNO ID: [id number] Author: Paul Alejandro Service: ? Author Type: Physician Type: Anesthesia Postprocedure Evaluation Filed: 03/19/2020 4:36 PM Note Text: POST ANESTHESIA EVALUATION NOTE : 1945 Procedure Summary Date: 03/19/20 Room / Location: MN OR / MN OR Anesthesia Start: 1231 Anesthesia Stop: 1525 Procedures: ORIF ANKLE TRIMALLEOLAR, WITHOUT FIXATION POSTERIOR LIP (Left Ankle) ORIF SYNDESMOSIS LOWER EXTREMITY (Left Ankle) Diagnosis: Ankle fracture, left (Ankle fracture, left [S82.892A]) Surgeons: Leland Herrera Responsible Provider: Paul Alejandro Anesthesia Type: general ASA Status: 4 Anesthesia Type: general Last vitals Vitals Value Taken Time BP 148/73 03/19/20 1527 Temp 36.4 ?C (97.5 ?F) 03/19/20 1527 Pulse 73 03/19/20 1527 Resp 16 03/19/20 1527 SpO2 100 % 03/19/20 1527 Post Anesthesia Patient Status Patient location: OR, floor. Anticipated Disposition: inpatient floor planned admission. Neurological Status: aware and responsive. Pulmonary Status: breathing comfortably on supplemental oxygen Airway Control: returned to baseline unsupported. Cardiovascular Status: stable. Pain Management: clinically adequate Postoperative Hydration: acceptable. Intraoperative Events: no significant anesthesia events Post Operative Nausea/Vomiting Status: no significant post operative nausea or vomiting Anesthetic Observations: no significant anesthetic observations Recommendation: continue current plan of care and further care per PACU/ICU/floor team. SIGNATURE: Paul Alejandro MD PATIENT NAME: Lisa Shirley DATE: March 19, 2020 TIME: 4:35 PM CSN: [id number] [facility] ANES PRE-OPon 03-19-2020 ANES PRE-OP HNO ID: [id number] Author: Paul Alejandro Service: ? Author Type: Physician Type: Anesthesia Preprocedure Evaluation Filed: 03/19/2020 1:36 PM Note Text: ANESTHESIOLOGY DAY OF SURGERY NOTE : 1945 Procedure(s) (LRB): ORIF ANKLE TRIMALLEOLAR, WITHOUT FIXATION POSTERIOR LIP (Left) ORIF SYNDESMOSIS LOWER EXTREMITY (Left) Surgeon(s): Leland Howard (Res) Noah Estimated body mass index is 35.4 kg/m? as calculated from the following: Height as of this encounter: 167.6 cm (5' 6"). Weight as of this encounter: 99.5 kg (219 lb 4.8 oz). Most recent hematocrit and potassium results: Hematocrit 38.7 03/19/2020 Potassium 3.9 03/18/2020 Relevant Problems CARDIO (+) Coronary artery disease involving sitka coronary artery of sitka heart without angina pectoris (+) Essential hypertension (+) Migraine without aura and without status migrainosus, not intractable ENDO (+) Type 2 diabetes mellitus with diabetic neuropathy, without long-term current use of insulin (HCC) GI (+) GERD without esophagitis -RENAL (+) Acute kidney injury superimposed on chronic kidney disease (HCC) (+) Chronic kidney disease, stage 3, mod decreased GFR NEURO-PSYCH (+) Acute right MCA stroke ([facility]) I - PHYSICAL EVALUATION AIRWAY Patient intubated: No. Mallampati: II. TM distance: >3 FB. Neck ROM: full ROM without neurological symptoms. Mouth opening: adequate. DENTAL Dental findings: teeth intact and poor dentition. Additional exam findings: yes. Other findings: Covid positive on admission (10 days prior). Patient was in DKA on admission and had a stroke. The ankle was found to be broken on admission.. II - ANESTHESIA PLAN ASA Score: 4 Anesthetic Plan: general Airway type: ETT Anesthetic plan additional comments: RSI due to Covid. BS improved. Patient alert and not complaining of pain.. The patient is not a current smoker. NPO Status: adequate Monitoring plan: standard ASA. Postoperative analgesic plan: parenteral or oral opioids. Anesthetic Risks, Benefits, Alternatives, Personnel Discussed. Consent obtained from: patient. Patient / Surrogate agrees to blood products: blood products not planned Significant changes in the patient condition since the History and Physical, not otherwise documented in primary service progress note: no. Potential Anesthesia issues that may suggest increased risk of complications or contraindication to planned procedure: none. Vitals Value Taken Time BP 151/80 03/19/20 1100 Pulse 91 03/19/20 1100 Resp 18 03/19/20 1100 Temp 36.8 ?C (98.2 ?F) 03/19/20 1100 SpO2 99 % 11/23/20 1100 Facility-Administered Medications as of 03/19/2020 Medication Dose Route Frequency - NaCl 0.9% irrigation bottle X (OR/PROCEDURE) PRN - [MAR Hold due to Transfer] insulin lispro 14 Units pen (rapid acting) (HumaLOG KWIKPEN) 14 Units SUBCUTANEOUS w MEALS - [MAR Hold due to Transfer] NaCl 0.9% iv infusion 100 mL/hr INTRAVENOUS CONTINUOUS - [MAR Hold due to Transfer] melatonin 6 mg tab(s) 6 mg ORAL HS PRN - [COMPLETED] LORazepam 0.5 mg tab(s) (ATIVAN) 0.5 mg ORAL ONCE - [MAR Hold due to Transfer] insulin NPH human 12 Units injection pen (intermediate acting) (NovoLIN N, HumuLIN N) 12 Units SUBCUTANEOUS DAILY (8 AM) - [MAR Hold due to Transfer] hydrALAZINE 25 mg tab(s) (APRESOLINE) 25 mg ORAL q 6 H - [MAR Hold due to Transfer] insulin NPH human 8 Units injection pen (intermediate acting) (NovoLIN N, HumuLIN N) 8 Units SUBCUTANEOUS AT BEDTIME - [MAR Hold due to Transfer] dilTIAZem CD 180 mg cap(s) (CARDIZEM CD, CARTIA XT) 180 mg ORAL DAILY - [MAR Hold due to Transfer] dexAMETHasone 6 mg tab(s) (DECADRON) 6 mg ORAL DAILY WITH BREAKFAST - [MAR Hold due to Transfer] pantoprazole DR 40 mg tab(s) (PROTONIX) 40 mg ORAL DAILY (6 AM) - [MAR Hold due to Transfer] insulin lispro pen (rapid acting) (HumaLOG KWIKPEN) SUBCUTANEOUS w MEALS - [COMPLETED] labetalol 5 mg injection syringe (NORMODYNE) 5 mg INTRAVENOUS ONCE - [COMPLETED] enalaprilat 0.625 mg injection (VASOTEC IV) 0.625 mg INTRAVENOUS ONCE - [] iv contrast (radiology procedure) INTRAVENOUS DIRECTED PRN - [MAR Hold due to Transfer] pill sheet rock hanger (patient-specific) 1 Each Miscell. (Med.Supl.;Non-Drugs) PRN - [MAR Hold due to Transfer] ondansetron 4 mg tab(s) (ZOFRAN) 4 mg ORAL/FEEDING TUBE q 6 H PRN - [MAR Hold due to Transfer] nystatin 5 mL oral liquid (MYCOSTATIN) 5 mL MUCOUS MEMBRANE QID - [] lidocaine 10 mg/mL (1 %) 10-20 mg injection (XYLOCAINE) 1-2 mL INTRADERMAL ONCE - [MAR Hold due to Transfer] sodium chloride 0.9 % (flush) 10 mL (BD POSIFLUSH) 10 mL INTRAVENOUS q 12 H - [MAR Hold due to Transfer] sodium chloride 0.9 % (flush) 20 mL (BD POSIFLUSH) 20 mL INTRAVENOUS PRN - [COMPLETED] remdesivir 200 mg in NaCl 0.9% 250 mL 200 mg INTRAVENOUS ONCE And - [] sodium chloride 0.9 % (flush) 30 mL (BD POSIFLUSH) 30 mL INTRAVENOUS ONCE - [COMPLETED] remdesivir 100 mg in NaCl 0.9% 250 mL 100 mg INTRAVENOUS q 24 HR And - [COMPLETED] sodium chloride 0.9 % (flush) 30 mL (BD POSIFLUSH) 30 mL INTRAVENOUS q 24 HR - [COMPLETED] cloNIDine HCl 0.1 mg tab(s) (CATAPRES) 0.1 mg ORAL/FEEDING TUBE ONE TIME - [MAR Hold due to Transfer] fentaNYL 50 mcg/mL 25 mcg injection (SUBLIMAZE) 25 mcg INTRAVENOUS q 2 H PRN - [MAR Hold due to Transfer] miconazole 2 % 1 application topical powder (LOTRIMIN AF, DESENEX) 1 application TOPICAL BID - [COMPLETED] lactated ringers 1,000 mL iv bolus 1,000 mL INTRAVENOUS ONCE - [MAR Hold due to Transfer] atorvastatin 80 mg tab(s) (LIPITOR) 80 mg ORAL/FEEDING TUBE AT BEDTIME - [] dextrose 5% in NaCl 0.45% iv infusion 125 mL/hr INTRAVENOUS CONTINUOUS - [] insulin regular human 100 Units in NaCl 0.9% 100 mL - ICU NOMOGRAM 0.5-30 Units/hr INTRAVENOUS CONTINUOUS - [MAR Hold due to Transfer] dextrose 40 % 15 g 15 g ORAL PRN Or - [MAR Hold due to Transfer] glucagon 1 mg injection 1 mg INTRAMUSCULAR PRN Or - [MAR Hold due to Transfer] dextrose 50% in water 25 mL syringe 12.5 g INTRAVENOUS PRN - [COMPLETED] insulin regular human 10.17 Units injection (short acting) (NovoLIN R,HumuLIN R) 0.1 units/kg/dose SUBCUTANEOUS ONCE - [MAR Hold due to Transfer] docusate 100 mg oral liquid (DIOCTO, COLACE) 100 mg ORAL/FEEDING TUBE BID - [MAR Hold due to Transfer] bisacodyl 10 mg suppository (DULCOLAX) 10 mg RECTAL DAILY PRN - [MAR Hold due to Transfer] ondansetron (PF) 4 mg injection (ZOFRAN) 4 mg INTRAVENOUS q 4 H PRN - [MAR Hold due to Transfer] acetaminophen 650 mg tab(s) (TYLENOL) 650 mg ORAL/FEEDING TUBE q 4 H PRN Or - [MAR Hold due to Transfer] acetaminophen 650 mg CUP (TYLENOL) 650 mg ORAL/FEEDING TUBE q 4 H PRN Or - [MAR Hold due to Transfer] acetaminophen 650 mg suppository (TYLENOL) 650 mg RECTAL q 4 H PRN - [COMPLETED] sodium chloride 0.9 % (flush) 2-10 mL (BD POSIFLUSH) 2-10 mL INTRAVENOUS ONCE - [COMPLETED] lidocaine 10 mg/mL (1 %) 200 mg injection (XYLOCAINE) 20 mL INTRADERMAL ONCE Outpatient Medications as of 03/19/2020 Medication Sig - zolpidem (AMBIEN) 5 mg tablet Take 1 tablet by mouth at bedtime as needed for up to 90 days. - oxyCODONE-acetaminophen (PERCOCET) 5-325 mg tablet Take 1 tablet by mouth every 8 hours as needed for Pain for up to 30 days. - diltiazem CD (CARDIZEM CD, CARTIA XT) 240 mg 24 hr capsule TAKE 1 CAPSULE BY MOUTH EVERY DAY - ALPRAZolam (XANAX) 0.5 mg tablet Take 1 tablet by mouth three times daily as needed for up to 90 days. - glipiZIDE (GLUCOTROL) 5 mg tablet Take 1 tablet by mouth twice daily before meals. - sitaGLIPtin (JANUVIA) 100 mg tablet Take 1 tablet by mouth once daily. - polyethylene glycol 3350 (MIRALAX ORAL) Take 1 Packet by mouth once daily. - nitroglycerin sublingual (NITROQUICK) 0.4 mg SL tablet Dissolve 1 tablet under the tongue every 5 minutes as needed. - calcium carbonate (CALCIUM 600) 600 mg calcium (1,500 mg) tab Take 600 mg by mouth three times daily. - BIFIDOBACTERIUM INFANTIS (ALIGN ORAL) Take 1 tablet by mouth once daily. I have interviewed and examined the patient. I have reviewed the medical record and/or the pre-anesthesia evaluation, pertinent labs, and test results. This contains updated information obtained within 48 hours of Surgery/Procedure. SIGNATURE: Paul Alejandro MD PATIENT NAME: Lisa Shirley DATE: March 19, 2020 TIME: 1:33 PM CSN: [id number] Normal [facility] CASE MANAGEMon 03-19-2020 CASE MANAGEM HNO ID: [id number] Author: Bertha River) AMADOU Kerns Service: Social Work Author Type: Hospital Corpsman Type: Care Mgt Progress Note Filed: 03/19/2020 9:51 AM Note Text: CARE MANAGEMENT PROGRESS NOTE SERVICE DATE: 03/19/2020 SERVICE TIME: 9:44 AM LOS: 11 days ... [facility] has accepted patient. Called patient in her room several times and she does not answer. Called her cell phone and left a message. Called her son, Osmany. He states he has not been able to reach her this weekend either by phone. Explained that we could expand [facility] Son was open to this but need to confirm with patient . Discussed with nurse who will position phone better for patient next tmie she goes into the isolation room. SIGNATURE: AMADOU Grubbs PATIENT NAME: Lisa Shirley DATE: March 19, 2020 TIME: 9:44 AM PAGER/CONTACT #: [phone] Normal [facility] CBC (hemogram) Bld Autoon Erythrocyte distribution width (RBC) [Ratio] 13.1 % Normal 11.5-15.0 [facility] Comment on above: Order Comment: Speci men Type: BLOOD SPECIMEN Performed By: #### 5 8410-2 #### [facility] CLIA [id number] [address] [place] [address] Hematocrit (Bld) [Volume fraction] 38.7 % Normal 36.0-46.0 [facility] Comment on above: Order Comment: Speci men Type: BLOOD SPECIMEN Performed By: #### 5 8410-2 #### [facility] CLIA [id number] [address] [place] [address] Hemoglobin (Bld) [Mass/Vol] 12.9 g/dL Normal 11.5-15.5 [facility] Comment on above: Order Comment: Speci men Type: BLOOD SPECIMEN Performed By: #### 5 8410-2 #### [facility] CLIA [id number] [address] [place] [address] MCH (RBC) [Entitic mass] 30.7 pg Normal 26.0-34.0 [facility] Comment on above: Order Comment: Speci men Type: BLOOD SPECIMEN Performed By: #### 5 8410-2 #### [facility] CLIA [id number] [address] [place] [address] MCHC (RBC) [Mass/Vol] 33.3 g/dL Normal 30.5-36.0 [facility] Comment on above: Order Comment: Speci men Type: BLOOD SPECIMEN Performed By: #### 5 8410-2 #### [facility] CLIA [id number] [address] [place] [address] MCV (RBC) [Entitic vol] 92.1 fL Normal 80.0-100.0 [facility] Comment on above: Order Comment: Speci men Type: BLOOD SPECIMEN Performed By: #### 5 8410-2 #### [facility] CLIA [id number] [address] [place] [address] Nucleated RBC (Bld) [#/Vol] 10*3/uL Normal <0.01 [facility] Comment on above: Order Comment: Speci men Type: BLOOD SPECIMEN Performed By: #### 5 8410-2 #### [facility] CLIA [id number] [address] [place] [address] Platelet mean volume (Bld) [Entitic vol] 11.2 fL Normal 9.0-12.7 [facility] Comment on above: Order Comment: Speci men Type: BLOOD SPECIMEN Performed By: #### 5 8410-2 #### [facility] CLIA [id number] [address] [place] [address] Platelets (Bld) [#/Vol] 253 10*3/uL Normal 150-400 [facility] Comment on above: Order Comment: Speci men Type: BLOOD SPECIMEN Performed By: #### 5 8410-2 #### [facility] CLIA [id number] [address] [place] [address] RBC (Bld) [#/Vol] 4.20 10*6/uL Normal 3.90-5.20 [facility] Comment on above: Order Comment: Speci men Type: BLOOD SPECIMEN Performed By: #### 5 8410-2 #### [facility] CLIA [id number] [address] [place] [address] WBC (Bld) [#/Vol] 12.84 10*3/uL High 3.70-11.00 [facility] Comment on above: Order Comment: Speci men Type: BLOOD SPECIMEN Performed By: #### 5 8410-2 #### [facility] CLIA [id number] [address] [place] [address] CONSULT PROGon 03-19-2020 CONSULT PROG HNO ID: [id number] Author: Marissa Banks Service: Endocrinology Author Type: Physician Type: Consult Progress Note Filed: 03/19/2020 7:04 AM Note Text: ENDOCRINOLOGY CONSULT PROGRESS NOTE SERVICE DATE: 03/19/2020 SERVICE TIME: 6:56 AM Subjective INTERVAL HPI: Following for DM type 2, consult on 03/14 for hyperglycemia. Adm on 03/08 with DKA, R MCA stroke, COVID 19. pt agitated off and on; was in restraints, off now. Notes and orders reviewed. D/W RN, NPO for OR today. Diet: DIET NPO p.o intake poor/erratic, needs help with meals Activity: bedrest Review of Systems: unable to talk to pt on phone; pt not picking up phone; D/W RN, no nausea, no pain, no SOB; had panic attack last night, better after Ativan, calm now Current Facility-Administered Medications Medication Dose Route Frequency - docusate 100 mg oral liquid (DIOCTO, COLACE) 100 mg ORAL/FEEDING TUBE BID - bisacodyl 10 mg suppository (DULCOLAX) 10 mg RECTAL DAILY PRN - ondansetron (PF) 4 mg injection (ZOFRAN) 4 mg INTRAVENOUS q 4 H PRN - acetaminophen 650 mg tab(s) (TYLENOL) 650 mg ORAL/FEEDING TUBE q 4 H PRN Or - acetaminophen 650 mg CUP (TYLENOL) 650 mg ORAL/FEEDING TUBE q 4 H PRN Or - acetaminophen 650 mg suppository (TYLENOL) 650 mg RECTAL q 4 H PRN - fentaNYL 50 mcg/mL 25 mcg injection (SUBLIMAZE) 25 mcg INTRAVENOUS q 2 H PRN - miconazole 2 % 1 application topical powder (LOTRIMIN AF, DESENEX) 1 application TOPICAL BID - atorvastatin 80 mg tab(s) (LIPITOR) 80 mg ORAL/FEEDING TUBE AT BEDTIME - dextrose 40 % 15 g 15 g ORAL PRN Or - glucagon 1 mg injection 1 mg INTRAMUSCULAR PRN Or - dextrose 50% in water 25 mL syringe 12.5 g INTRAVENOUS PRN - sodium chloride 0.9 % (flush) 10 mL (BD POSIFLUSH) 10 mL INTRAVENOUS q 12 H - sodium chloride 0.9 % (flush) 20 mL (BD POSIFLUSH) 20 mL INTRAVENOUS PRN - pill sheet rock hanger (patient-specific) 1 Each Miscell. (Med.Supl.;Non-Drugs) PRN - ondansetron 4 mg tab(s) (ZOFRAN) 4 mg ORAL/FEEDING TUBE q 6 H PRN - nystatin 5 mL oral liquid (MYCOSTATIN) 5 mL MUCOUS MEMBRANE QID - insulin lispro pen (rapid acting) (HumaLOG KWIKPEN) SUBCUTANEOUS w MEALS - insulin NPH human 8 Units injection pen (intermediate acting) (NovoLIN N, HumuLIN N) 8 Units SUBCUTANEOUS AT BEDTIME - dilTIAZem CD 180 mg cap(s) (CARDIZEM CD, CARTIA XT) 180 mg ORAL DAILY - dexAMETHasone 6 mg tab(s) (DECADRON) 6 mg ORAL DAILY WITH BREAKFAST - pantoprazole DR 40 mg tab(s) (PROTONIX) 40 mg ORAL DAILY (6 AM) - hydrALAZINE 25 mg tab(s) (APRESOLINE) 25 mg ORAL q 6 H - insulin NPH human 12 Units injection pen (intermediate acting) (NovoLIN N, HumuLIN N) 12 Units SUBCUTANEOUS DAILY (8 AM) - insulin lispro 14 Units pen (rapid acting) (HumaLOG KWIKPEN) 14 Units SUBCUTANEOUS w MEALS - NaCl 0.9% iv infusion 100 mL/hr INTRAVENOUS CONTINUOUS - melatonin 6 mg tab(s) 6 mg ORAL HS PRN Objective PHYSICAL EXAM: GENERAL: pt not examined due to COVID isolation; D/W RN, off restraints; occ distressed; responding to commands; not dyspneic BP 124/83 Pulse 83 Temp (Src) 98.1 (Oral) Resp 18 Ht 5' 6" (1.68m) Wt 219 lb (99.3kg) SpO2 99% BMI 35.36 kg/(m2). O2 Therapy: Room Air DATA: Diagnostic tests reviewed for today's visit: Most recent labs and imaging results. Last 24 hr BS reviewed. Recent Labs 03/18/20201403/18/20 1708 03/18/20 1215 03/18/20 0844 03/18/20 0420 03/17/202015 GLUC -- -- -- -- 178* -- PCGLUCOSE 158* 239* 146* 167* -- 223* Assessment/Plan Type 2 diabetes mellitus with diabetic neuropathy, without long-term current use of insulin (HCC) POA: Yes Assessment AND Plan: uncontrolled; A1c 9.6 (was 12.6 in October,); pt says long-standing duartion, home Rx Glipizide 5 mg bid and Januvia 100 mg daily. BS "high" at home per pt. On steroids, started on NPH 12 units bid and Regular 5 units started per natalee team. changed Rx to NPH 12-0-0-12 Humalog 8 units tid on 03/14 pm. BS low at hs, D/W RN, NPH held on 03/14 night. Changed NPH to 10-0-0-6 and contd Humalog 8 units tid (reduce if eats <30%) on 03/15. BS high all day on 03/15 and 03/16. Ate poorly on 03/16, D/W RN;pt was in restraints; off on 03/17. Increased NPH to 12-0-0-8 and Humalog to 12 units tid from 03/17. BS still high; increased Humalog to 14 units tid from 03/18 am; contd NPH. NPO for OR today; D/W RN, half dose on am NPH if no steroids this am. Acute right MCA stroke (HCC) POA: Yes Assessment AND Plan: per neuro Respiratory tract infection due to COVID-19 virus POA: Yes Assessment AND Plan: on decadron Closed left ankle fracture POA: Yes Assessment AND Plan: per ortho; for ORIF on 03/19 Rhabdomyolysis POA: Yes Assessment AND Plan: resolved Diabetic ketoacidosis without coma associated with type 2 diabetes mellitus (HCC) POA: Yes Assessment AND Plan: resolved, was on IV insulin Essential hypertension POA: Yes Assessment AND Plan: Dysphagia POA: Yes Assessment AND Plan: on dysphagia diet Chronic kidney disease, stage 3, mod decreased GFR POA: Yes Assessment AND Plan: creat 1.03(1.02)(0.99) Acute kidney injury superimposed on chronic kidney disease (HCC) POA: Yes Assessment AND Plan: resolved Elevated troponin POA: Yes Assessment AND Plan: SIGNATURE: Marissa Banks MD PATIENT NAME: Lisa Shirley DATE: March 19, 2020 TIME: 7:04 AM PAGER: [phone] [facility] NUTRITIONon 03-19-2020 NUTRITION HNO ID: [id number] Author: Tyra Rios) DANIKA Gallardo Service: Nutrition Therapy Author Type: Registered Dietitian Type: Nutrition Filed: 03/19/2020 10:28 AM Note Text: NUTRITION THERAPY PROGRESS NOTE SERVICE DATE: 03/19/2020 SERVICE TIME: 10:15 Nutrition Assessment: Recommended Malnutrition Diagnosis: No Malnutrition Identified (03/09/20 1118 : Ann (Danika) DANIKA Friend) Estimated kilocalorie needs: 1480 - 1780 Calorie Calculation Method: 25-30 kcals/kg Estimated protein needs (grams): 71 - 90 Grams protein determined by: 1.2-1.5 g/kg;[place] Body Weight Care Plan: Change diet to resume texture/consistency per ST as able Supplements: Boost Glucose Control;Ensure Max Monitor and Evaluation: Meet greater than 75% of estimated needs;Monitor bowel function;Monitor fluid/electrolyte balance;Monitor labs, I/Os, vital signs, weight Discharge Recommendations: Diet;Oral Supplements Diet: CHO controlled; texture/consistency per ST Oral Supplements: Boost Glucose Control or equivalent until intake improves to baseline Interval History: OR planned today for L trimalleolar fracture. Remains with COVID treatment. Anthropometrics: Height: 167.6 cm (5' 6") Weight: 99.5 kg (219 lb 4.8 oz) Dosing Weight: 59.3 kg (130 lb 11.7 oz) Usual Weight: 96.3 kg (212 lb 4.9 oz) Body mass index is 35.4 kg/m?. Obese Weight change percentage over time: 2 kg lost in 5 days Intake History: Current Intake: Less than 50% estimated energy needs(or equal to) over: 6 days. PO intake has been down per RN Elda. Pt NPO today for OR, but per RN, patient has not been eating and drinking much in general. May need corpak re-inserted if PO does not improve given upcoming surgery. Current Diet: DIET NPO MNT Billing Type: Re-assess/15 min 1 unit SIGNATURE: Tyra Gallardo RD PATIENT NAME: Lisa Shirley DATE: March 19, 2020 TIME: 10:15 AM PAGER: [phone] [facility] OPERATIVE NOon 03-19-2020 OPERATIVE NO HNO ID: [id number] Author: Leland Herrera Service: Orthopaedic Surgery Author Type: Physician Type: Operative Report Filed: 03/20/2020 10:55 AM Note Text: ORTHOPAEDIC OPERATIVE REPORT PATIENT NAME: Lsia Shirley Surgery/Procedure Date: 03/19/2020 Incision/Procedure Start Time: 12:58 PM Incision Close/Procedure End Time: 2:18 PM Surgeon(s) and [employer] Machine Setter(s): Surgeon(s) and Role: * Leland Herrera - Primary * Lee (Brea) Noah - Resident - Assisting No Additional Staff PRE-OPERATIVE DIAGNOSIS: Left trimalleolar ankle fracture POST-OPERATIVE DIAGNOSIS: Left trimalleolar ankle fracture SURGICAL PROCEDURE(S): 1) Open reduction internal fixation left trimalleolar ankle fracture (medial and lateral malleoli) 2) Open fixation left ankle syndesmosis Anesthesia: General Implantable Devices: Synthes 10-hole one third tubular plate; locking and non-locking screws Complications: None Specimens: None Estimated Blood Loss: 25 mls OPERATIVE INDICATIONS: This is a 74 year old female who presented after a fall with potential recent stroke and DKA; she was also found through clinical examination and imaging studies to have a left trimalleolar ankle fracture-dislocation. The patient underwent closed reduction 03/09/2020. She subsequently tested positive for coronavirus. Risks and benefits of definitive operative stabilization of the left ankle were reviewed in detail with patient and son (via provided phone number) and all questions were answered. OPERATIVE PROCEDURE: The patient was brought to the operating room on the hospital bed, and transferred supine to the operating table. She was intubated per Anesthesia. The left lower extremity was pre-washed with chlorhexidine. It was padded prepped and sterilely draped for the procedure. The [facility] timeout protocol was performed. A lateral skin incision over the malleolus was made with scalpel, followed by electrocautery for hemostasis. Exposure was continued to the fracture site. Care was taken to protect local neurovascular structures. The fracture was cleared of hematoma and interposed soft tissue. Reduction maneuvers were performed with bone forceps to reestablish fibular length and rotation. Bone quality was noted to be very poor. Two 2.7 mm zustousj-nh-swtgahcxl lag screws were applied. The Synthes 10-hole one third tubular plate was applied to the lateral surface of bone. Proximal and distal locking and non-locking screws were applied. Imaging demonstrated appropriate fracture reduction and hardware position. A short medial incision was made over the malleolus with scalpel, followed by electrocautery for hemostasis. Care was taken to protect local vascular structures. Reduction maneuvers were performed to improve bone position. Bone quality was noted to be very poor. A Synthes 3.5 mm 50 mm cortical screw was passed after drilling across the fracture site. Images demonstrated appropriate ankle mortise and hardware position in multiple planes. External rotation stress views demonstrated medial clear space widening. Two syndesmosis fixation screws were applied through the plate, with improved appearance on external rotation joint stress. Final images were obtained. The wounds were irrigated with saline. Closure of the deep subcutaneous soft tissues was performed with 0 vicryl suture followed by buried interrupted 2-0 vicryl suture in the superficial soft tissues. Simple 3-0 nylon suture closure was performed on the skin layers. Sterile dressings were applied. A left posterior leg splint was placed. All draping was removed. The patient was extubated per Anesthesia. She was recovered in the OR per Covid protocol. POST-OPERATIVE PLAN: - Management per primary team. - Pain control. - Weight Bearing Status: NWB LLE. - Dressing(s): Short leg splint on LLE. Keep splint clean and dry. - PT/OT: Evaluation AND recommendations. - DVT PPx: SCD. Ru for prophylaxis per primary team. No chemical prophylaxis indicated from orthopaedic standpoint. - Antibiotic PPx: Ancef 2 g Q8H for 24 hours. - Imaging: Post-op x-rays of L ankle pending. - Anticipated Length of Stay/Disposition: 2-3 days/SNF. - Updated son regarding post-surgical state via provided phone number. I/primary surgeon/proceduralist performed the procedure with assistance. SIGNATURE: Leland Herrera MD DATE: March 20, 2020 TIME: 10:48 AM Normal [facility] PROGRESSon 03-19-2020 PROGRESS HNO ID: [id number] Author: Panda Coulter Service: Hospital Medicine Author Type: Physician Type: Progress Notes Filed: 03/19/2020 6:12 PM Note Text: DEPARTMENT OF HOSPITAL MEDICINE PROGRESS NOTE SERVICE DATE: 03/19/2020 SERVICE TIME: 5:51 PM Hospital Medicine/Primary Attending: Panda Coulter MD NIGHT AND WEEKEND COVERAGE: [place] COVERAGE: From 7am - 7pm, please call [phone] After 7pm, please call cross cover pager #[phone] Subjective INTERVAL HPI: patient went to or today for ankle surgery. MEDICATIONS: Reviewed Objective PHYSICAL EXAM: BP 148/73 Pulse 73 Temp (Src) 97.5 (Oral) Resp 16 Ht 5' 6" (1.68m) Wt 219 lb 4.8 oz (99.5kg) SpO2 100% BMI 35.41 kg/(m2). O2 Therapy: Nasal Cannula, Liters: 2 Physical Exam Performed General: awake alert oriented x 3, no acute distress, resting in bed HEENT: eomi, some dysarthria, oral mucosa moist, some facial droop CV: s1s2 normal, rrr, no mrg no jvd Lung: bilateral air entry no wheezes no rales no rubs no rhonchi Abdomen: soft nt nd bowel sounds present Extremities: no marked edema skin warm and moist radial pulse 2+ Neuro: facial droop and dysarthria are present, left arm and leg weakness, monitor Lines, Drains, and Airways Line Central Line Double Lumen 03/12/20 1416 Peripherally Inserted (PICC) Right Arm Through Introducer 5.0 Micronesian 7 days Drain External Collection Device 03/19/20 0042 less than 1 day DATA: Diagnostic tests reviewed for today's visit: Most recent labs and imaging results. Assessment/Plan Principal Problem: 1. ?Fall: POA, stable PT OT Recommendation is for rehab ? 2. ?Acute CVA: POA, stable Neurology on board Has had echo (ef 55%, no pfo), cta, mri done Asa and statin ? Event monitor on dc as per neuro, event record hookup was ordered in [facility] [place] ? 3. ?Diabetes mellitus: POA, stable Monitor accuchecks Was on steroid which can contribute to hyperglycemia but completed course, monitor accuchecks, may need to go down on insulin? Endocrine on board, monitor As patient completed course of steroids, lowered insulin doses for now, but monitor accuchecks and follow up endocrinology recommendations Sliding scale Continue to monitor ? Consulted?endocrine as hba1c has been elevated, recently 9.6 (12.6 prior), recs appreciated ? 4. ?Hypertension: POA, stable Patient was taking cardizem at home cardizem 180 mg po daily for now with holding parameters, monitor Hydralazine 25 mg PO Q6?hours added Continue to monitor ? 5. ?Dysphagia: POA, stable Speech/swallow on board Dysphagia level 1 with nectar thick was recommended Had mbs ? 6. ?Jihan: POA, stable Improved Received ivf prior ? 7. ?Rhabdomyolysis: POA, stable resolved ? 8. ?Obesity bmi 35: POA, stable ? 9. ?COVID positive: POA, stable gfr 53, lfts stable Completed course of steroids Received course of remdesivir Was doing well on room air Afebrile right now ? 10. ?Ankle fracture: POA, stable F/u ortho recs S/p orif of L trimalleolar ankle fracture/dislocation Repeat pt ot eval as per care management Patient nwb to lle as per ortho VTE Prophylaxis: scds Disposition: f/u pt ot, as per ortho, patient nwb to lle SIGNATURE: Panda Coulter MD PATIENT NAME: Lisa Shirley DATE: March 19, 2020 TIME: 5:51 PM PAGER/CONTACT #: [phone] etx [id number] [facility] PROGRESS HNO ID: [id number] Author: Igor (Brea) Guero Service: Orthopaedic Surgery Author Type: Resident Type: Progress Notes Filed: 03/19/2020 6:30 AM Note Text: Orthopaedic Surgery Inpatient Progress Note ASSESSMENT: 74 year old female with left trimalleolar fracture ? PLAN: - Medical management per primary - Pain control per primary - Ice/elevate LLE - NWB LLE - Splint in place, maintain,?keep dry, clean and intact - Appreciate medicine and infectious disease treatment? - CBC and type and screen ordered AM of 03/19/2020 - Definitive surgical plan?on 03/19/2020 for ORIF of left trimal fx Subjective No acute events overnight. Chart review conducted due to COVID concerns. Physical Examination Vitals BP 143/61 Pulse 67 Temp 36.2 ?C (97.2 ?F) (Axillary) Resp 18 Ht 167.6 cm (5' 6") Wt 99.3 kg (219 lb) SpO2 99% BMI 35.35 kg/m? General Alert and oriented. No acute distress. Cooperative with interview. Exam Patient not seen due to COVID precautions Labs Recent Labs 03/18/20 0420 NA 141 K 3.9 CHLOR 105 CO2 25 BUN 26* CREAT 1.03* GLUC 178* ANION 11 CA 8.1* Imaging None Igor Jack MD March 19, 2020 6:10 AM Normal [facility] TYPE AND SCREENon 03-19-2020 ABO AB Normal [facility] Comment on above: Order Comment: Speci men Type: SWAB OF INTERNAL NOSE Performed By: #### S APCR #### [facility] CLIA [id number] [address] [place] [address] HISTORICAL AB SCR STATUS Negative Normal [facility] Comment on above: Order Comment: Speci men Type: SWAB OF INTERNAL NOSE Performed By: #### S APCR #### [facility] CLIA [id number] [address] [place] [address] Rh Nom (Bld) Positive Normal [facility] Comment on above: Order Comment: Speci men Type: SWAB OF INTERNAL NOSE Performed By: #### S APCR #### [facility] CLIA [id number] [address] [place] [address] TYPE AND SCREEN EXPIRATION 03/22/2020 23:59 Normal [facility] Comment on above: Order Comment: Speci men Type: SWAB OF INTERNAL NOSE Performed By: #### S APCR #### [facility] CLIA [id number] [address] [place] [address] XR ANKLE 3V AP/LAT/OBL LTon 03-19-2020 XR ANKLE 3V AP/LAT/OBL LT Final Report DATE OF EXAM: Mar 19 2020 4:34PM [id number] [id number] - XR ANKLE 3V AP/LAT/OBL LT / PROCEDURE REASON: Post-operative / post-procedure assessment, asymptomatic Physician Interpretation EXAMINATION: XR ANKLE 3V AP/LAT/OBL LT, XR ANKLE 3V AP/LAT/OBL LT CLINICAL HISTORY: post op L ankle (accession [id number]), O.R.I.F. LEFT ANKLE (accession [id number]) Technique: XR ANKLE 3V AP/LAT/OBL LT, XR ANKLE 3V AP/LAT/OBL LT Fluoroscopic Radiation Summary: Plane A, Air Kerma: 0.0 mGy (accession [id number]), 1.0 mGy (accession [id number]) Dose Area Product (DAP): 0.0 mGycm mGycm Fluoro time: 0:43 min:sec Comparison: 03/09/2020, 03/08/2020 RESULT: 5 digital spot fluoroscopic images of the left ankle were obtained demonstrating lateral plate and screws as well as medial malleolus screw transfixing the ankle fractures. There is good bony alignment. Postoperative imaging demonstrating lateral plate and multiple screws including syndesmotic screws transfixing the distal fibular fracture. Medial malleolus screw transfixing the medial malleolus fracture. There is good bony alignment. Normal ankle mortise. Normal talar dome. No new fracture. Postoperative soft tissue gas. IMPRESSION: Intraoperative fluoroscopic imaging. Postoperative imaging with satisfactory alignment left ankle. Smalltalk Developer: PSCB Transcribe Date/Time: Mar 19 2020 4:47P Dictated by : WILIAM MCGREGOR MD This examination was interpreted and the report reviewed and electronically signed by: WILIAM MCGREGOR MD on Mar 19 2020 4:52PM EST Normal [facility] XR ANKLE 3V AP/LAT/OBL LT Final Report DATE OF EXAM: Mar 19 2020 2:15PM [id number] [id number] - XR ANKLE 3V AP/LAT/OBL LT / PROCEDURE REASON: O.R.I.F. Physician Interpretation EXAMINATION: XR ANKLE 3V AP/LAT/OBL LT, XR ANKLE 3V AP/LAT/OBL LT CLINICAL HISTORY: post op L ankle (accession [id number]), O.R.I.F. LEFT ANKLE (accession [id number]) Technique: XR ANKLE 3V AP/LAT/OBL LT, XR ANKLE 3V AP/LAT/OBL LT Fluoroscopic Radiation Summary: Plane A, Air Kerma: 0.0 mGy (accession [id number]), 1.0 mGy (accession [id number]) Dose Area Product (DAP): 0.0 mGycm mGycm Fluoro time: 0:43 min:sec Comparison: 03/09/2020, 03/08/2020 RESULT: 5 digital spot fluoroscopic images of the left ankle were obtained demonstrating lateral plate and screws as well as medial malleolus screw transfixing the ankle fractures. There is good bony alignment. Postoperative imaging demonstrating lateral plate and multiple screws including syndesmotic screws transfixing the distal fibular fracture. Medial malleolus screw transfixing the medial malleolus fracture. There is good bony alignment. Normal ankle mortise. Normal talar dome. No new fracture. Postoperative soft tissue gas. IMPRESSION: Intraoperative fluoroscopic imaging. Postoperative imaging with satisfactory alignment left ankle. Smalltalk Developer: [facility] Transcribe Date/Time: Mar 19 2020 4:47P Dictated by : WILIAM MCGREGOR MD This examination was interpreted and the report reviewed and electronically signed by: WILIAM MCGREGOR MD on Mar 19 2020 4:52PM EST Normal [facility] Bas Metab 2000 Pnl SerPlon 1 05-18-2019 Anion gap [Moles/Vol] 11 mmol/L Normal 9-18 [facility] Comment on above: Order Comment: Speci men Type: BLOOD SPECIMEN Performed By: #### 2 4321-2 ####[facility]IA [id number] [place] [address] Calcium [Mass/Vol] 8.1 mg/dL Low 8.5-10.2 [facility] Comment on above: Order Comment: Speci men Type: BLOOD SPECIMEN Performed By: #### 2 4321-2 ####[facility]IA [id number] [place] [address] Chloride [Moles/Vol] 105 mmol/L Normal 97-105 [facility] Comment on above: Order Comment: Speci men Type: BLOOD SPECIMEN Performed By: #### 2 4321-2 ####[facility]ORYCLIA [id number] [place] [address] CO2 [Moles/Vol] 25 mmol/L Normal 22-30 [facility] Comment on above: Order Comment: Speci men Type: BLOOD SPECIMEN Performed By: #### 2 4321-2 ####[facility]ORYCLIA [id number] [place] [address] Creatinine [Mass/Vol] 1.03 mg/dL High 0.58-0.96 [facility] Comment on above: Order Comment: Speci men Type: BLOOD SPECIMEN Performed By: #### 2 4321-2 ####[facility]ORYCLIA [id number] [place] [address] GFR/1.73 sq M.predicted MDRD (S/P/Bld) [Vol rate/Area] mL/min/{1.73_m2} Normal [facility] Comment on above: Order Comment: Speci men Type: BLOOD SPECIMEN Result Comment: 53 eGFR (Estimated GFR) Units of measure: mL/min/1.73 meters squared eGFR is derived from the reexpressed MDRD Study equation using the following parameters: serum creatinine, age, gender and race. The creatinine assay has been calibrated to be traceable to IDMS. An eGFR <60 mL/min/1.73m2 for >3 months is consistent with chronic kidney disease. Refer to KDOQI guidelines for clinical interpretation. In patients with unstable renal function, e.g. those with acute kidney injury, the eGFR may not accurately reflect actual GFR. Performed By: #### 2 4321-2 ####[facility]ORYCLIA [id number] [place] [address] Glucose [Mass/Vol] 178 mg/dL High 74-99 [facility] Comment on above: Order Comment: Speci men Type: BLOOD SPECIMEN Result Comment: The [place] Diabetes Association (ADA) provides guidance for cutoff values for fasting glucose and random glucose. The ADA defines fasting as no caloric intake for at least 8 hours. Fasting plasma glucose results between 100 to 125 mg/dL indicate increased risk for diabetes (prediabetes). Fasting plasma glucose results greater than or equal to 126 mg/dL meet the criteria for diagnosis of diabetes. In the absence of unequivocal hyperglycemia, results should be confirmed by repeat testing. In a patient with classic symptoms of hyperglycemia or hyperglycemic crisis, random plasma glucose results greater than or equal to 200 mg/dL meet the criteria for diagnosis of diabetes. Reference: Standards of Medical Care in Diabetes 2016, [place] [employer]. Diabetes Care. 2016.39(Suppl 1). Performed By: #### 2 4321-2 ####[facility]ORYCLIA [id number] [place] [address] Potassium [Moles/Vol] 3.9 mmol/L Normal 3.7-5.1 [facility] Comment on above: Order Comment: Speci men Type: BLOOD SPECIMEN Performed By: #### 2 4321-2 ####[facility]ORYCLIA [id number] [place] [address] Sodium [Moles/Vol] 141 mmol/L Normal 136-144 [facility] Comment on above: Order Comment: Speci men Type: BLOOD SPECIMEN Performed By: #### 2 4321-2 ####[facility]ORYCLIA [id number] [place] [address] Urea nitrogen [Mass/Vol] 26 mg/dL High 7-21 [facility] Comment on above: Order Comment: Speci men Type: BLOOD SPECIMEN Performed By: #### 2 4321-2 ####[facility]ORYCLIA [id number] [place] [address] CONSULT PROGon 03-18-2020 CONSULT PROG HNO ID: [id number] Author: Marissa Banks Service: Endocrinology Author Type: Physician Type: Consult Progress Note Filed: 03/18/2020 8:50 AM Note Text: ENDOCRINOLOGY CONSULT PROGRESS NOTE SERVICE DATE: 03/18/2020 SERVICE TIME: 8:20 AM Subjective INTERVAL HPI: Following for DM type 2, consult on 03/14 for hyperglycemia. Adm on 03/08 with DKA, R MCA stroke, COVID 19. Notes and orders reviewed. D/W RN, pt agitated off and on; was in restraints, off now. Diet: DIET CARBOHYDRATE CONTROLLED p.o intake poor/erratic, needs help with meals Activity: bedrest Review of Systems: unable to talk to pt on phone; pt not picking up phone; D/W RN, no nausea, no pain, no SOB Current Facility-Administered Medications Medication Dose Route Frequency - docusate 100 mg oral liquid (DIOCTO, COLACE) 100 mg ORAL/FEEDING TUBE BID - bisacodyl 10 mg suppository (DULCOLAX) 10 mg RECTAL DAILY PRN - ondansetron (PF) 4 mg injection (ZOFRAN) 4 mg INTRAVENOUS q 4 H PRN - heparin 5,000 Units injection 5,000 Units SUBCUTANEOUS q 8 H - acetaminophen 650 mg tab(s) (TYLENOL) 650 mg ORAL/FEEDING TUBE q 4 H PRN Or - acetaminophen 650 mg CUP (TYLENOL) 650 mg ORAL/FEEDING TUBE q 4 H PRN Or - acetaminophen 650 mg suppository (TYLENOL) 650 mg RECTAL q 4 H PRN - fentaNYL 50 mcg/mL 25 mcg injection (SUBLIMAZE) 25 mcg INTRAVENOUS q 2 H PRN - miconazole 2 % 1 application topical powder (LOTRIMIN AF, DESENEX) 1 application TOPICAL BID - atorvastatin 80 mg tab(s) (LIPITOR) 80 mg ORAL/FEEDING TUBE AT BEDTIME - dextrose 40 % 15 g 15 g ORAL PRN Or - glucagon 1 mg injection 1 mg INTRAMUSCULAR PRN Or - dextrose 50% in water 25 mL syringe 12.5 g INTRAVENOUS PRN - aspirin 81 mg chewable tab(s) 81 mg ORAL/FEEDING TUBE DAILY - sodium chloride 0.9 % (flush) 10 mL (BD POSIFLUSH) 10 mL INTRAVENOUS q 12 H - sodium chloride 0.9 % (flush) 20 mL (BD POSIFLUSH) 20 mL INTRAVENOUS PRN - pill sheet rock hanger (patient-specific) 1 Each Miscell. (Med.Supl.;Non-Drugs) PRN - ondansetron 4 mg tab(s) (ZOFRAN) 4 mg ORAL/FEEDING TUBE q 6 H PRN - nystatin 5 mL oral liquid (MYCOSTATIN) 5 mL MUCOUS MEMBRANE QID - insulin lispro pen (rapid acting) (HumaLOG KWIKPEN) SUBCUTANEOUS w MEALS - insulin NPH human 8 Units injection pen (intermediate acting) (NovoLIN N, HumuLIN N) 8 Units SUBCUTANEOUS AT BEDTIME - dilTIAZem CD 180 mg cap(s) (CARDIZEM CD, CARTIA XT) 180 mg ORAL DAILY - dexAMETHasone 6 mg tab(s) (DECADRON) 6 mg ORAL DAILY WITH BREAKFAST - pantoprazole DR 40 mg tab(s) (PROTONIX) 40 mg ORAL DAILY (6 AM) - hydrALAZINE 25 mg tab(s) (APRESOLINE) 25 mg ORAL q 6 H - insulin lispro 12 Units pen (rapid acting) (HumaLOG KWIKPEN) 12 Units SUBCUTANEOUS w MEALS - insulin NPH human 12 Units injection pen (intermediate acting) (NovoLIN N, HumuLIN N) 12 Units SUBCUTANEOUS DAILY (8 AM) Objective PHYSICAL EXAM: GENERAL: pt not examined due to COVID isolation; D/W RN, pt agitated and pulls on lines so placed on restraints; occ distressed; responding to some commands; not dyspneic BP 147/89 Pulse 88 Temp (Src) 97.9 (Oral) Resp 18 Ht 5' 6" (1.68m) Wt 219 lb (99.3kg) SpO2 97% BMI 35.36 kg/(m2). O2 Therapy: Room Air DATA: Diagnostic tests reviewed for today's visit: Most recent labs and imaging results. Last 24 hr BS reviewed. Recent Labs 03/18/20 0420 03/17/20201503/17/20 1626 03/17/20 1133 03/17/20 0754 03/16/202050 GLUC 178* -- -- -- -- -- PCGLUCOSE -- 223* 271* 172* 167* 213* Assessment/Plan Type 2 diabetes mellitus with diabetic neuropathy, without long-term current use of insulin (HCC) POA: Yes Assessment AND Plan: uncontrolled; A1c 9.6 (was 12.6 in October,); pt says long-standing duartion, home Rx Glipizide 5 mg bid and Januvia 100 mg daily. BS "high" at home per pt. On steroids, started on NPH 12 units bid and Regular 5 units started per natalee team. changed Rx to NPH 12-0-0-12 Humalog 8 units tid on 03/14 pm. BS low at hs, D/W RN, NPH held on 03/14 night. Changed NPH to 10-0-0-6 and contd Humalog 8 units tid (reduce if eats <30%) on 03/15. BS high all day on 03/15 and 03/16. Ate poorly on 03/16, D/W RN;pt was in restraints; off on 03/17. Increased NPH to 12-0-0-8 and Humalog to 12 units tid from 03/17. BS still high; will increase Humalog to 14 units tid from today am; cont NPH. Acute right MCA stroke (HCC) POA: Yes Assessment AND Plan: per neuro Respiratory tract infection due to COVID-19 virus POA: Yes Assessment AND Plan: on decadron Closed left ankle fracture POA: Yes Assessment AND Plan: per ortho; for ORIF on 03/19 Rhabdomyolysis POA: Yes Assessment AND Plan: resolved Diabetic ketoacidosis without coma associated with type 2 diabetes mellitus (HCC) POA: Yes Assessment AND Plan: resolved, was on IV insulin Essential hypertension POA: Yes Assessment AND Plan: Dysphagia POA: Yes Assessment AND Plan: on dysphagia diet Chronic kidney disease, stage 3, mod decreased GFR POA: Yes Assessment AND Plan: creat 1.02(0.99) Acute kidney injury superimposed on chronic kidney disease (HCC) POA: Yes Assessment AND Plan: resolved Elevated troponin POA: Yes Assessment AND Plan: SIGNATURE: Marissa Banks MD PATIENT NAME: Lisa Shirley DATE: March 18, 2020 TIME: 8:49 AM PAGER: [phone] Normal [facility] PROGRESSon 03-18-2020 PROGRESS HNO ID: [id number] Author: Panda Coulter Service: Hospital Medicine Author Type: Physician Type: Progress Notes Filed: 03/18/2020 7:00 PM Note Text: DEPARTMENT OF HOSPITAL MEDICINE PROGRESS NOTE SERVICE DATE: 03/18/2020 SERVICE TIME: 6:57 PM Hospital Medicine/Primary Attending: Panda Coulter MD NIGHT AND WEEKEND COVERAGE: [place] COVERAGE: From 7am - 7pm, please call [phone] After 7pm, please call cross cover pager #[phone] Subjective INTERVAL HPI: patient seen at bedside. rn endorses she has been intermittently refusing medications but counseled compliance. She otherwise appears more comfortable than prior. Follow up ortho recs. Eventual rehab it seems. MEDICATIONS: Reviewed Objective PHYSICAL EXAM: BP 127/82 Pulse 100 Temp (Src) 98.1 (Oral) Resp 18 Ht 5' 6" (1.68m) Wt 219 lb (99.3kg) SpO2 98% BMI 35.36 kg/(m2). O2 Therapy: Room Air Physical Exam Performed General: awake alert oriented x 3, no acute distress, resting in bed HEENT: eomi, some dysarthria, oral mucosa moist, some facial droop CV: s1s2 normal, rrr, no mrg no jvd Lung: bilateral air entry no wheezes no rales no rubs no rhonchi Abdomen: soft nt nd bowel sounds present Extremities: no marked edema skin warm and moist radial pulse 2+ Neuro: facial droop and dysarthria are present, left arm and leg weakness, monitor Lines, Drains, and Airways Line Central Line Double Lumen 03/12/20 1416 Peripherally Inserted (PICC) Right Arm Through Introducer 5.0 Micronesian 6 days DATA: Diagnostic tests reviewed for today's visit: Most recent labs and imaging results. Assessment/Plan Principal Problem: 1. ?Fall: POA, stable PT OT Recommendation is for rehab ? 2. ?Acute CVA: POA, stable Neurology on board Has had echo (ef 55%, no pfo), cta, mri done Asa and statin ? Event monitor on dc as per neuro, event record hookup was ordered in [facility] ? 3. ?Diabetes mellitus: POA, stable Monitor accuchecks On steroids which can contribute to hyperglycemia, will be getting?1?more day of steroids, might need to deescalate regimen once steroids finished Currently ordered is nph?12?units am,?nph 8 units pm,?lispro?14?units with meals Sliding scale Continue to monitor ? Consulted?endocrine as hba1c has been elevated, recently 9.6 (12.6 prior), recs appreciated ? 4. ?Hypertension: POA, stable Patient was taking cardizem at home cardizem 180 mg po daily for now with holding parameters, monitor Hydralazine 25 mg PO Q6?hours added Continue to monitor ? 5. ?Dysphagia: POA, stable Speech/swallow on board Dysphagia level 1 with nectar thick was recommended Had mbs ? 6. ?Jihan: POA, stable Improved Received ivf prior ? 7. ?Rhabdomyolysis: POA, stable resolved ? 8. ?Obesity bmi 35: POA, stable ? 9. ?COVID positive: POA, stable gfr 53, lfts stable Patient is receiving course of decadron day?9?today, transition to po, gi px ppi Received course of remdesivir 98% on room air Afebrile right now ? 10. ?Ankle fracture: POA, stable S/p closed reduction Splint in place As per ortho, definite surgical plan 03/19/2020 for orif Medication and Non-Pharmacologic VTE Prophylaxis/Anticoagulants Anticoagulant AND Antiplatelet Medications (From admission, onward) Start Dose Route Frequency Ordered Stop 03/09/20 1500 aspirin 81 mg chewable tab(s) 81 mg PO/FT DAILY 03/09/20 1436 -- 03/08/20 2230 heparin 5,000 Units injection (Medical Risk Categories) 5,000 Units SUBCUTANEOUS EVERY 8 HOURS 03/08/20 2220 -- VTE Prophylaxis: heparin dvt px Disposition: Acute Rehab Plan of care discussed with: Provider, RN, Patient SIGNATURE: Panda Coulter MD PATIENT NAME: Lisa Shirley DATE: March 18, 2020 TIME: 6:57 PM PAGER/CONTACT #: [phone] [facility] PROGRESS HNO ID: [id number] Author: Leland Herrera Service: Orthopaedic Surgery Author Type: Physician Type: Progress Notes Filed: 03/18/2020 8:47 AM Note Text: ORTHOPAEDIC SURGERY DAILY PROGRESS NOTE ORTHO STAFF: Agree with resident assessment and plan noted below. Left message for son previously regarding plan via provided phone number. Leland Herrera MD ASSESSMENT: 74 year old female with left trimalleolar fracture PLAN: - Medical management per primary - Pain control per primary - Ice/elevate LLE - NWB LLE - Splint in place, maintain,?keep dry, clean and intact - Appreciate medicine and infectious disease treatment? - Definitive surgical plan?on 03/19/2020 for ORIF of left trimal fx? INTERVAL HPI: Patient monitored, no new events overnight. Virtual visit OBJECTIVE: BP 147/89 Pulse 88 Temp 36.6 ?C (97.9 ?F) (Oral) Resp 18 Ht 167.6 cm (5' 6") Wt 99.3 kg (219 lb) SpO2 97% BMI 35.35 kg/m? Intake/Output Summary (Last 24 hours) No intake/output data recorded. Exam: General: virtual visit Extremities: Virtual visit Labs: BMP: Sodium 143 03/15/2020 Potassium 3.8 03/15/2020 Chloride 108 03/15/2020 CO2 24 03/15/2020 BUN 32 03/15/2020 Creatinine 1.02 03/15/2020 Glucose 169 03/15/2020 CBC: WBC 9.87 03/11/2020 Hemoglobin 12.2 03/11/2020 Hematocrit 35.8 03/11/2020 Platelet Count 244 03/11/2020 COAGS: APTT 23.7 03/08/2020 PT INR 1.1 03/12/2020 SED RATE/CRP: No results found for this basename: wsr:*,crp:* Imaging: No new images Love Díaz MD Orthopedic Surgery, PGY1 03/18/20 1410 [facility] CONSULT PROGon 03-17-2020 CONSULT PROG HNO ID: [id number] Author: Marissa Banks Service: Endocrinology Author Type: Physician Type: Consult Progress Note Filed: 03/17/2020 9:45 AM Note Text: ENDOCRINOLOGY CONSULT PROGRESS NOTE SERVICE DATE: 03/17/2020 SERVICE TIME: 9:00 AM Subjective INTERVAL HPI: Following for DM type 2, consult on 03/14 fro hyperglycemia. Adm on 03/08 with DKA, R MCA stroke, COVID 19. Notes and orders reviewed. D/W RN, pt agitated off and on, in restraints. 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; per notes, no nausea, no pain Current Facility-Administered Medications Medication Dose Route Frequency - docusate 100 mg oral liquid (DIOCTO, COLACE) 100 mg ORAL/FEEDING TUBE BID - bisacodyl 10 mg suppository (DULCOLAX) 10 mg RECTAL DAILY PRN - ondansetron (PF) 4 mg injection (ZOFRAN) 4 mg INTRAVENOUS q 4 H PRN - heparin 5,000 Units injection 5,000 Units SUBCUTANEOUS q 8 H - acetaminophen 650 mg tab(s) (TYLENOL) 650 mg ORAL/FEEDING TUBE q 4 H PRN Or - acetaminophen 650 mg CUP (TYLENOL) 650 mg ORAL/FEEDING TUBE q 4 H PRN Or - acetaminophen 650 mg suppository (TYLENOL) 650 mg RECTAL q 4 H PRN - fentaNYL 50 mcg/mL 25 mcg injection (SUBLIMAZE) 25 mcg INTRAVENOUS q 2 H PRN - miconazole 2 % 1 application topical powder (LOTRIMIN AF, DESENEX) 1 application TOPICAL BID - atorvastatin 80 mg tab(s) (LIPITOR) 80 mg ORAL/FEEDING TUBE AT BEDTIME - dextrose 40 % 15 g 15 g ORAL PRN Or - glucagon 1 mg injection 1 mg INTRAMUSCULAR PRN Or - dextrose 50% in water 25 mL syringe 12.5 g INTRAVENOUS PRN - aspirin 81 mg chewable tab(s) 81 mg ORAL/FEEDING TUBE DAILY - sodium chloride 0.9 % (flush) 10 mL (BD POSIFLUSH) 10 mL INTRAVENOUS q 12 H - sodium chloride 0.9 % (flush) 20 mL (BD POSIFLUSH) 20 mL INTRAVENOUS PRN - pill sheet rock hanger (patient-specific) 1 Each Miscell. (Med.Supl.;Non-Drugs) PRN - ondansetron 4 mg tab(s) (ZOFRAN) 4 mg ORAL/FEEDING TUBE q 6 H PRN - nystatin 5 mL oral liquid (MYCOSTATIN) 5 mL MUCOUS MEMBRANE QID - insulin lispro pen (rapid acting) (HumaLOG KWIKPEN) SUBCUTANEOUS w MEALS - insulin NPH human 10 Units injection pen (intermediate acting) (NovoLIN N, HumuLIN N) 10 Units SUBCUTANEOUS DAILY (8 AM) - insulin lispro 10 Units pen (rapid acting) (HumaLOG KWIKPEN) 10 Units SUBCUTANEOUS w MEALS - insulin NPH human 8 Units injection pen (intermediate acting) (NovoLIN N, HumuLIN N) 8 Units SUBCUTANEOUS AT BEDTIME - dilTIAZem CD 180 mg cap(s) (CARDIZEM CD, CARTIA XT) 180 mg ORAL DAILY - dexAMETHasone 6 mg tab(s) (DECADRON) 6 mg ORAL DAILY WITH BREAKFAST - pantoprazole DR 40 mg tab(s) (PROTONIX) 40 mg ORAL DAILY (6 AM) - hydrALAZINE 25 mg tab(s) (APRESOLINE) 25 mg ORAL q 6 H Objective PHYSICAL EXAM: GENERAL: pt not examined due to COVID isolation; D/W RN, pt agitated and pulls on lines so placed on restraints; occ distressed; responding to some commands; not dyspneic BP 173/82 Pulse 75 Temp (Src) 98.2 (Oral) Resp 16 Ht 5' 6" (1.68m) Wt 219 lb (99.3kg) SpO2 98% BMI 35.36 kg/(m2). O2 Therapy: Room Air DATA: Diagnostic tests reviewed for today's visit: Most recent labs and imaging results. Last 24 hr BS reviewed. Recent Labs 03/16/20205003/16/20 1730 03/16/20 0745 03/15/20 1959 03/15/20 1656 03/15/20 0647 03/15/20 0647 GLUC -- -- -- -- -- -- 169* PCGLUCOSE 213* 218* 215* 244* 207* < > -- < > = values in this interval not displayed. Assessment/Plan Type 2 diabetes mellitus with diabetic neuropathy, without long-term current use of insulin (HCC) POA: Yes Assessment AND Plan: uncontrolled; A1c 9.6 (was 12.6 in October,); pt says long-standing duartion, home Rx Glipizide 5 mg bid and Januvia 100 mg daily. BS "high" at home per pt. On steroids, NPH 12 units bid and Regular 5 units started per natalee team. I changed Rx to NPH 12-0-0-12 Humalog 8 units tid on 03/14 pm. BS low at hs, D/W RN, NPH held on 03/14 night. Changed NPH to 10-0-0-6 and cont Humalog 8 units tid (reduce if eats <30%) on 03/15. BS high all day on 03/15; 03/16. Ate poorly on 03/16, D/W RN; in restraints. Will increase NPH to 12-0-0-8 and Humalog to 12 units tid from today. Acute right MCA stroke (HCC) POA: Yes Assessment AND Plan: per neuro Respiratory tract infection due to COVID-19 virus POA: Yes Assessment AND Plan: on decadron Closed left ankle fracture POA: Yes Assessment AND Plan: per ortho; OR on 03/19 Rhabdomyolysis POA: Yes Assessment AND Plan: resolved Diabetic ketoacidosis without coma associated with type 2 diabetes mellitus (HCC) POA: Yes Assessment AND Plan: resolved, was on IV insulin Essential hypertension POA: Yes Assessment AND Plan: Dysphagia POA: Yes Assessment AND Plan: on dysphagia diet Chronic kidney disease, stage 3, mod decreased GFR POA: Yes Assessment AND Plan: creat 1.02(0.99) Acute kidney injury superimposed on chronic kidney disease (HCC) POA: Yes Assessment AND Plan: resolved Elevated troponin POA: Yes Assessment AND Plan: SIGNATURE: Marissa Banks MD PATIENT NAME: Lisa Shirley DATE: March 17, 2020 TIME: 9:45 AM PAGER: [phone] [facility] NURSING PROGon 03-17-2020 NURSING PROG HNO ID: [id number] Author: Quynh Jean-BaptisteRn) JONNY Maznanares Service: ? Author Type: Registered Nurse Type: Nursing Progress Note Filed: 03/17/2020 2:24 PM Note Text: Nursing Progress Note Patient Name: Lisa Shirley Patient Location: [id number] 1 Daily Note: 1115: Dr Coulter notified of removing restraints from patient. 1145: pt tolerating well without pulling at lines or trying to get out of bed. This note was completed by: Quynh Manzanares, JONNY [facility] NURSING PROG HNO ID: [id number] Author: Aron Jean-BaptisteRn) Stephan RN Service: ? Author Type: Registered Nurse Type: Nursing Progress Note Filed: 03/17/2020 5:24 AM Note Text: Pt. Now only has soft wrist restraint on left wrist, patient is unable to pull at right upper arm PICC with right hand and demonstrated increased cooperation and ability to follow instruction. [facility] NURSING PROG HNO ID: [id number] Author: Aron Jean-BaptisteRn) Stephan RN Service: ? Author Type: Registered Nurse Type: Nursing Progress Note Filed: 03/17/2020 5:19 AM Note Text: Nursing Progress: Topic: RESTRAINT NON-VIOLENT PATIENT NAME: Lisa Shirley PATIENT LOCATION: [place] [address]/[place] [address]* The patient demonstrates Attempting to Remove Medical Devices Vital to Medical Stability, Confusion, Lack of Understanding/Ability to Comply with Safety Directions, Impulsive Behavior, Inability to Retain Information Regarding Safety Directions as evidenced by the following behaviors Pulling at central line which pose an imminent danger to self or others. The following interventions were attempted but were not effective in protecting the patient's safety: Alarms, Bed in Low/Locked Position, Call Light Within Reach, IV/Feeding Bag/Pump Out of Vision, Gauze Wrap/Sleeve IV Site, Modify Equipment, Frequent Observation Next, a comprehensive assessment was performed and warranted placing the patient in Soft Bilateral Wrists, the least restrictive restraint needed to protect the patient's safety. Ongoing safety assessments and evaluation for earliest removal of restraints will be performed. DATE: March 17, 2020 TIME: 5:18 AM Aron Rothman RN [facility] PROGRESSon 03-17-2020 PROGRESS HNO ID: [id number] Author: Panda Coulter Service: Hospital Medicine Author Type: Physician Type: Progress Notes Filed: 03/17/2020 8:16 PM Note Text: DEPARTMENT OF HOSPITAL MEDICINE PROGRESS NOTE SERVICE DATE: 03/17/2020 SERVICE TIME: 8:09 PM Hospital Medicine/Primary Attending: Panda Coulter MD NIGHT AND WEEKEND COVERAGE: [place] COVERAGE: From 7am - 7pm, please call [phone] After 7pm, please call cross cover pager #[phone] Subjective INTERVAL HPI: blood pressure a bit improved. rn endorsed that she was able to remove restraints today and patient was doing okay. Orthopedic surgery pending. MEDICATIONS: Reviewed Objective PHYSICAL EXAM: BP 147/80 Pulse 80 Temp (Src) 97.5 (Oral) Resp 18 Ht 5' 6" (1.68m) Wt 219 lb (99.3kg) SpO2 97% BMI 35.36 kg/(m2). O2 Therapy: Room Air Physical Exam Performed General: awake alert oriented x 3, no acute distress, resting in bed HEENT: eomi, some dysarthria, oral mucosa moist, some facial droop CV: s1s2 normal, rrr, no mrg no jvd Lung: bilateral air entry no wheezes no rales no rubs no rhonchi Abdomen: soft nt nd bowel sounds present Extremities: no marked edema skin warm and moist radial pulse 2+ Neuro: facial droop and dysarthria are present, left arm and leg weakness, monitor Lines, Drains, and Airways Line Central Line Double Lumen 03/12/20 1416 Peripherally Inserted (PICC) Right Arm Through Introducer 5.0 Micronesian 5 days Drain External Collection Device 03/12/20 1300 Assessment 5 days DATA: Diagnostic tests reviewed for today's visit: Most recent labs and imaging results. Assessment/Plan Principal Problem: 1. ?Fall: POA, stable PT OT Recommendation is for rehab ? 2. ?Acute CVA: POA, stable Neurology on board Has had echo (ef 55%, no pfo), cta, mri done Asa and statin ? Event monitor on dc as per neuro, event record hookup was ordered in [place] ? 3. ?Diabetes mellitus: POA, stable Monitor accuchecks On steroids which can contribute to hyperglycemia, will be getting 2 more days of steroids, might need to deescalate regimen once steroids finished Currently ordered is nph?12?units am,?nph 8 units pm,?lispro?12?units with meals Sliding scale Continue to monitor ? Consulted?endocrine as hba1c has been elevated, recently 9.6 (12.6 prior), recs appreciated ? 4. ?Hypertension: POA, stable Patient was taking cardizem at home cardizem 180 mg po daily for now with holding parameters, monitor Hydralazine 25 mg PO Q6 hours added Continue to monitor ? 5. ?Dysphagia: POA, stable Speech/swallow on board Dysphagia level 1 with nectar thick was recommended Had mbs ? 6. ?Jihan: POA, stable Improving Received ivf prior ? 7. ?Rhabdomyolysis: POA, stable resolved ? 8. ?Obesity bmi 35: POA, stable ? 9. ?COVID positive: POA, stable gfr 53, lfts stable Patient is receiving course of decadron day?8?today, transition to po, gi px ppi Received course of remdesivir 97% on room air Afebrile right now ? 10. ?Ankle fracture: POA, stable S/p closed reduction Splint in place As per ortho, definite surgical plan 03/19/2020 for orif Medication and Non-Pharmacologic VTE Prophylaxis/Anticoagulants Anticoagulant AND Antiplatelet Medications (From admission, onward) Start Dose Route Frequency Ordered Stop 03/09/20 1500 aspirin 81 mg chewable tab(s) 81 mg PO/FT DAILY 03/09/20 1436 -- 03/08/20 2230 heparin 5,000 Units injection (Medical Risk Categories) 5,000 Units SUBCUTANEOUS EVERY 8 HOURS 03/08/202219 -- VTE Prophylaxis: heparin 5000 sq q 8 hours Disposition: To be determined SIGNATURE: Panda Coulter MD PATIENT NAME: Lisa Shirley DATE: March 17, 2020 TIME: 8:09 PM PAGER/CONTACT #: [phone] [phone] [facility] PROGRESS HNO ID: [id number] Author: Edmond Roach) MD Irvin Service: Orthopaedic Surgery Author Type: Resident Type: Progress Notes Filed: 03/17/2020 6:57 AM Note Text: ORTHOPAEDIC SURGERY DAILY PROGRESS NOTE ASSESSMENT: 74 year old female with left trimalleolar fracture PLAN: - Medical management per primary - Pain control per primary - Ice/elevate LLE - NWB LLE - Splint in place, maintain,?keep dry, clean and intact - Appreciate medicine and infectious disease treatment? - Definitive surgical plan?on 03/19/2020 for ORIF of left trimal fx? INTERVAL HPI: Patient monitored, no new events overnight. Virtual visit OBJECTIVE: BP 173/82 Pulse 75 Temp 36.8 ?C (98.2 ?F) (Oral) Resp 16 Ht 167.6 cm (5' 6") Wt 99.3 kg (219 lb) SpO2 98% BMI 35.35 kg/m? Intake/Output Summary (Last 24 hours) No intake/output data recorded. Exam: General: virtual visit Extremities: Virtual visit Labs: BMP: Sodium 143 03/15/2020 Potassium 3.8 03/15/2020 Chloride 108 03/15/2020 CO2 24 03/15/2020 BUN 32 03/15/2020 Creatinine 1.02 03/15/2020 Glucose 169 03/15/2020 CBC: WBC 9.87 03/11/2020 Hemoglobin 12.2 03/11/2020 Hematocrit 35.8 03/11/2020 Platelet Count 244 03/11/2020 COAGS: APTT 23.7 03/08/2020 PT INR 1.1 03/12/2020 SED RATE/CRP: No results found for this basename: wsr:*,crp:* Imaging: No new images Tonie Bryan MD Orthopaedic Surgery Pager #[phone] March 17, 2020 [facility] ALLIED HEALTHon 03-16-2020 ALLIED HEALTH HNO ID: [id number] Author: Jade Caban (Rt) Service: Radiology Author Type: Motor And Generator Brush Cutter Type: Allied Health Filed: 03/16/2020 7:28 AM Note Text: Radiology Service Progress Note PATIENT NAME: Lisa Shirley DATE OF SERVICE: March 16, 2020 TIME: 7:28 AM PATIENT IDENTITY VERIFICATION COMPLETED USING TWO (2) IDENTIFIERS: Name and Date of confirmed by patient verbally and Name and Date of confirmed by identification band. FALL SCREENING: Has the patient had 2 falls in the last year or 1 fall with injury or currently using an Ambulatory Assistive Device (Walker, Cane, Wheelchair, Crutches, etc.)? Inpatient: Screened on floor PATIENT GENDER DATA: Female. status: : No status: NO. PATIENT RELEVANT IMPLANT DATA REVIEWED: Not Applicable RADIOLOGY DEPARTMENT: General X-ray: Exam(s) Completed: Upper Extremity X-Ray(s): Shoulder, AP / TRUE AP / AXILLARY right : PERIPHERAL IV DATA: Not applicable SIGNED BY: RT Mee March 16, 2020 7:28 AM [facility] CONSULT PROGon 03-16-2020 CONSULT PROG HNO ID: [id number] Author: Marissa Banks Service: Endocrinology Author Type: Physician Type: Consult Progress Note Filed: 03/16/2020 8:31 AM Note Text: ENDOCRINOLOGY CONSULT PROGRESS NOTE SERVICE DATE: 03/16/2020 SERVICE TIME: 8:00 AM Subjective INTERVAL HPI: Following for DM type 2, consult on 03/14 fro hyperglycemia. Adm on 03/08 with DKA, R MCA stroke, COVID 19. Notes and orders reviewed. D/W RN, pt agitated off and on, in restraints. Diet: DIET CARBOHYDRATE CONTROLLED p.o intake poor/erratic, needs help with meals Activity: bedrest Review of Systems: unable to talk to pt on phone, d/w RN, no nausea, no pain, not hungry Current Facility-Administered Medications Medication Dose Route Frequency - docusate 100 mg oral liquid (DIOCTO, COLACE) 100 mg ORAL/FEEDING TUBE BID - bisacodyl 10 mg suppository (DULCOLAX) 10 mg RECTAL DAILY PRN - ondansetron (PF) 4 mg injection (ZOFRAN) 4 mg INTRAVENOUS q 4 H PRN - heparin 5,000 Units injection 5,000 Units SUBCUTANEOUS q 8 H - acetaminophen 650 mg tab(s) (TYLENOL) 650 mg ORAL/FEEDING TUBE q 4 H PRN Or - acetaminophen 650 mg CUP (TYLENOL) 650 mg ORAL/FEEDING TUBE q 4 H PRN Or - acetaminophen 650 mg suppository (TYLENOL) 650 mg RECTAL q 4 H PRN - fentaNYL 50 mcg/mL 25 mcg injection (SUBLIMAZE) 25 mcg INTRAVENOUS q 2 H PRN - miconazole 2 % 1 application topical powder (LOTRIMIN AF, DESENEX) 1 application TOPICAL BID - atorvastatin 80 mg tab(s) (LIPITOR) 80 mg ORAL/FEEDING TUBE AT BEDTIME - dextrose 40 % 15 g 15 g ORAL PRN Or - glucagon 1 mg injection 1 mg INTRAMUSCULAR PRN Or - dextrose 50% in water 25 mL syringe 12.5 g INTRAVENOUS PRN - aspirin 81 mg chewable tab(s) 81 mg ORAL/FEEDING TUBE DAILY - sodium chloride 0.9 % (flush) 10 mL (BD POSIFLUSH) 10 mL INTRAVENOUS q 12 H - sodium chloride 0.9 % (flush) 20 mL (BD POSIFLUSH) 20 mL INTRAVENOUS PRN - pill sheet rock hanger (patient-specific) 1 Each Miscell. (Med.Supl.;Non-Drugs) PRN - ondansetron 4 mg tab(s) (ZOFRAN) 4 mg ORAL/FEEDING TUBE q 6 H PRN - nystatin 5 mL oral liquid (MYCOSTATIN) 5 mL MUCOUS MEMBRANE QID - insulin lispro pen (rapid acting) (HumaLOG KWIKPEN) SUBCUTANEOUS w MEALS - hydrALAZINE 25 mg tab(s) (APRESOLINE) 25 mg ORAL q 8 H - insulin NPH human 10 Units injection pen (intermediate acting) (NovoLIN N, HumuLIN N) 10 Units SUBCUTANEOUS DAILY (8 AM) - insulin lispro 10 Units pen (rapid acting) (HumaLOG KWIKPEN) 10 Units SUBCUTANEOUS w MEALS - insulin NPH human 8 Units injection pen (intermediate acting) (NovoLIN N, HumuLIN N) 8 Units SUBCUTANEOUS AT BEDTIME - dilTIAZem CD 180 mg cap(s) (CARDIZEM CD, CARTIA XT) 180 mg ORAL DAILY - dexAMETHasone 6 mg tab(s) (DECADRON) 6 mg ORAL DAILY WITH BREAKFAST - pantoprazole DR 40 mg tab(s) (PROTONIX) 40 mg ORAL DAILY (6 AM) Objective PHYSICAL EXAM: GENERAL: pt not examined due to COVID isolation; D/W RN, pt agitated and pulls on lines, occ distressed; responding to commands; not dyspneic BP 150/81 Pulse 65 Temp (Src) 98.2 (Oral) Resp 16 Ht 5' 6" (1.68m) Wt 219 lb (99.3kg) SpO2 97% BMI 35.36 kg/(m2). O2 Therapy: Room Air DATA: Diagnostic tests reviewed for today's visit: Most recent labs and imaging results. Last 24 hr BS reviewed. Recent Labs 03/15/20 1959 03/15/20 1656 03/15/20 1131 03/15/20 0735 03/15/20 0647 03/14/20 2253 GLUC -- -- -- -- 169* -- PCGLUCOSE 244* 207* 275* 172* -- 129* Assessment/Plan Type 2 diabetes mellitus with diabetic neuropathy, without long-term current use of insulin (HCC) POA: Yes Assessment AND Plan: uncontrolled; A1c 9.6 (was 12.6 in October,); pt says long-standing duartion, home Rx Glipizide 5 mg bid and Januvia 100 mg daily. BS "high" at home per pt. On steroids, NPH 12 units bid and Regular 5 units started per natalee team. I changed Rx to NPH 12-0-0-12 Humalog 8 units tid on 03/14 pm. BS low at hs, D/W RN, NPH held on 03/14 night. Changed NPH to 10-0-0-6 and cont Humalog 8 units tid (reduce if eats <30%) on 03/15. BS high all day on 03/15. Will increase NPH to 12-0-0-8 and Humalog to 10 units tid today. Acute right MCA stroke (HCC) POA: Yes Assessment AND Plan: per neuro Respiratory tract infection due to COVID-19 virus POA: Yes Assessment AND Plan: on decadron Closed left ankle fracture POA: Yes Assessment AND Plan: per ortho Rhabdomyolysis POA: Yes Assessment AND Plan: resolved Diabetic ketoacidosis without coma associated with type 2 diabetes mellitus (HCC) POA: Yes Assessment AND Plan: resolved, was on IV insulin Essential hypertension POA: Yes Assessment AND Plan: Dysphagia POA: Yes Assessment AND Plan: on dysphagia diet Chronic kidney disease, stage 3, mod decreased GFR POA: Yes Assessment AND Plan: creat 1.02(0.99) Acute kidney injury superimposed on chronic kidney disease (HCC) POA: Yes Assessment AND Plan: resolved Elevated troponin POA: Yes Assessment AND Plan: SIGNATURE: Marissa Banks MD PATIENT NAME: Lisa Shirley DATE: March 16, 2020 TIME: 8:31 AM PAGER: [phone] [facility] NURSING PROGon 03-16-2020 NURSING PROG HNO ID: [id number] Author: Maddison (Rn) JONNY Thorne Service: ? Author Type: Registered Nurse Type: Nursing Progress Note Filed: 03/16/2020 7:47 PM Note Text: Nursing Progress: Topic: RESTRAINT NON-VIOLENT PATIENT NAME: Lisa Shirley PATIENT LOCATION: [place] [address]/[place] [address]* The patient demonstrates Attempting to Remove Medical Devices Vital to Medical Stability, Confusion, Lack of Understanding/Ability to Comply with Safety Directions, Impulsive Behavior, Inability to Retain Information Regarding Safety Directions as evidenced by the following behaviors attempts to pull central line which pose an imminent danger to self or others. The following interventions were attempted but were not effective in protecting the patient's safety: Alarms, Bed in Low/Locked Position, Call Light Within Reach, IV/Feeding Bag/Pump Out of Vision, Gauze Wrap/Sleeve IV Site, Modify Equipment, Frequent Observation Next, a comprehensive assessment was performed and warranted placing the patient in Soft Bilateral Wrists, the least restrictive restraint needed to protect the patient's safety. Ongoing safety assessments and evaluation for earliest removal of restraints will be performed. DATE: March 16, 2020 TIME: 7:46 PM Maddison Thorne RN [facility] NURSING PROG HNO ID: [id number] Author: Aron (Rn) JONNY Rothman Service: ? Author Type: Registered Nurse Type: Nursing Progress Note Filed: 03/16/2020 1:36 AM Note Text: Nursing Progress: Topic: RESTRAINT NON-VIOLENT PATIENT NAME: Lisa Shirley PATIENT LOCATION: [place] [address]/[place] [address]* The patient demonstrates Attempting to Remove Medical Devices Vital to Medical Stability, Confusion, Lack of Understanding/Ability to Comply with Safety Directions, Impulsive Behavior, Inability to Retain Information Regarding Safety Directions as evidenced by the following behaviors pulling at PICC line, attempting to get out of bed which pose an imminent danger to self or others. The following interventions were attempted but were not effective in protecting the patient's safety: Alarms, Bed in Low/Locked Position, Call Light Within Reach, IV/Feeding Bag/Pump Out of Vision, Gauze Wrap/Sleeve IV Site, Modify Equipment, Frequent Observation Next, a comprehensive assessment was performed and warranted placing the patient in Soft Bilateral Wrists, the least restrictive restraint needed to protect the patient's safety. Ongoing safety assessments and evaluation for earliest removal of restraints will be performed. DATE: March 16, 2020 TIME: 1:36 AM Aron Rothman RN [facility] PROGRESSon 03-16-2020 PROGRESS HNO ID: [id number] Author: Panda Coulter Service: Hospital Medicine Author Type: Physician Type: Progress Notes Filed: 03/16/2020 9:28 PM Note Text: DEPARTMENT OF HOSPITAL MEDICINE PROGRESS NOTE SERVICE DATE: 03/16/2020 SERVICE TIME: 9:24 PM Hospital Medicine/Primary Attending: Panda Coulter MD NIGHT AND WEEKEND COVERAGE: [place] COVERAGE: From 7am - 7pm, please call [phone] After 7pm, please call cross cover pager #[phone] Subjective INTERVAL HPI: pending ortho surgery. Endocrine on board recs appreciated. Monitor accuchecks. MEDICATIONS: Reviewed Objective PHYSICAL EXAM: BP 161/81 Pulse 78 Temp (Src) 97.9 (Oral) Resp 16 Ht 5' 6" (1.68m) Wt 219 lb (99.3kg) SpO2 97% BMI 35.36 kg/(m2). O2 Therapy: Room Air Physical Exam Performed General: awake alert oriented x 3, no acute distress, resting in bed HEENT: eomi, some dysarthria, oral mucosa moist, some facial droop CV: s1s2 normal, rrr, no mrg no jvd Lung: bilateral air entry no wheezes no rales no rubs no rhonchi Abdomen: soft nt nd bowel sounds present Extremities: no marked edema skin warm and moist radial pulse 2+ Neuro: facial droop and dysarthria are present, left arm and leg weakness, monitor Lines, Drains, and Airways Line Central Line Double Lumen 03/12/20 1416 Peripherally Inserted (PICC) Right Arm Through Introducer 5.0 Micronesian 4 days Drain External Collection Device 03/12/20 1300 Assessment 4 days DATA: Diagnostic tests reviewed for today's visit: Most recent labs and imaging results. Assessment/Plan Principal Problem: 1. ?Fall: POA, stable PT OT Recommendation is for rehab ? 2. ?Acute CVA: POA, stable Neurology on board Has had echo (ef 55%, no pfo), cta, mri done Asa and statin ? Event monitor on dc as per neuro, event record hookup was ordered in [place] ? 3. ?Diabetes mellitus: POA, stable Monitor accuchecks On steroids which can contribute to hyperglycemia, will be getting 3 more days of steroids, might need to deescalate regimen once steroids finished Currently ordered is nph 10 units am, nph 8 units pm, lispro 10 units with meals Sliding scale Continue to monitor ? Consulted endocrine as hba1c has been elevated, recently 9.6 (12.6 prior), recs appreciated ? 4. ?Hypertension: POA, stable Patient was taking cardizem at home cardizem 180 mg po daily for now with holding parameters, monitor Hydralazine 25 mg PO Q6 hours added Continue to monitor ? 5. ?Dysphagia: POA, stable Speech/swallow on board Dysphagia level 1 with nectar thick was recommended Had mbs ? 6. ?Jihan: POA, stable Improving Received ivf prior ? 7. ?Rhabdomyolysis: POA, stable resolved ? 8. ?Obesity bmi 35: POA, stable ? 9. ?COVID positive: POA, stable gfr 53, lfts stable Patient is receiving course of decadron day 7 today, try to transition to po, gi px ppi Received course of remdesivir 96% on room air Afebrile right now ? 10. ?Ankle fracture: POA, stable S/p closed reduction Splint in place As per ortho, definite surgical plan 03/19/2020 for orif Medication and Non-Pharmacologic VTE Prophylaxis/Anticoagulants Anticoagulant AND Antiplatelet Medications (From admission, onward) Start Dose Route Frequency Ordered Stop 03/09/20 1500 aspirin 81 mg chewable tab(s) 81 mg PO/FT DAILY 03/09/20 1436 -- 03/08/20 2230 heparin 5,000 Units injection (Medical Risk Categories) 5,000 Units SUBCUTANEOUS EVERY 8 HOURS 03/08/20 2220 -- VTE Prophylaxis: heparin dvt px Disposition: Extended Care Facility/acute rehab SIGNATURE: Panda Coulter MD PATIENT NAME: Lisa Shirley DATE: March 16, 2020 TIME: 9:24 PM PAGER/CONTACT #: [phone] etx [phone] [facility] PROGRESS HNO ID: [id number] Author: Leland Herrera Service: Orthopaedic Surgery Author Type: Physician Type: Progress Notes Filed: 03/16/2020 2:16 PM Note Text: ORTHOPAEDIC SURGERY POSTOP DAILY PROGRESS NOTE Patient Name: Lisa Shirley Date of Evaluation: 03/16/2020 Admission Date: 03/08/2020 Time of Evaluation: 6:00 AM ORTHO STAFF: Patient seen and examined. Agree with resident assessment and plan noted below. Reviewed plan for surgical fixation left trimalleolar ankle fracture 03/19/2020. Discussed risks and benefits of open reduction internal fixation left medial and lateral malleoli, with possible syndesmosis fixation in detail. Nursing staff present for plan of care. Will contact son to review surgical plan. Leland Herrera MD ASSESSMENT: 74 year old female with left trimalleolar fracture PLAN: - Medical management per primary - Pain control per primary - Ice/elevate LLE - NWB LLE - Splint in place, maintain,?keep dry, clean and intact - Appreciate medicine and infectious disease treatment? - Definitive surgical plan?on 03/19/2020 for ORIF of left trimal fx? INTERVAL HPI: Patient monitored, no new events overnight. Virtual visit OBJECTIVE: BP 150/81 Pulse 65 Temp 36.8 ?C (98.2 ?F) (Oral) Resp 16 Ht 167.6 cm (5' 6") Wt 99.3 kg (219 lb) SpO2 97% BMI 35.35 kg/m? Intake/Output Summary (Last 24 hours) No intake/output data recorded. Exam: General: virtual visit Extremities: Virtual visit Labs: BMP: Sodium 143 03/15/2020 Potassium 3.8 03/15/2020 Chloride 108 03/15/2020 CO2 24 03/15/2020 BUN 32 03/15/2020 Creatinine 1.02 03/15/2020 Glucose 169 03/15/2020 CBC: WBC 9.87 03/11/2020 Hemoglobin 12.2 03/11/2020 Hematocrit 35.8 03/11/2020 Platelet Count 244 03/11/2020 COAGS: APTT 23.7 03/08/2020 PT INR 1.1 03/12/2020 SED RATE/CRP: No results found for this basename: wsr:*,crp:* Imaging: No new images Aikn Rogers MD Resident, Orthopaedic Surgery Pager #: [phone] 03/16/2020 6:00 AM Please page [phone] from 5p-6a and on weekends for any issues. Normal [facility] PROGRESS HNO ID: [id number] Author: Panda Coulter Service: Hospital Medicine Author Type: Physician Type: Progress Notes Filed: 03/15/2020 11:35 PM Note Text: DEPARTMENT OF HOSPITAL MEDICINE PROGRESS NOTE SERVICE DATE: 03/15/2020 SERVICE TIME: 11:11 PM Hospital Medicine/Primary Attending: Panda Coulter MD NIGHT AND WEEKEND COVERAGE: [place] COVERAGE: From 7am - 7pm, please call [phone] After 7pm, please call cross cover pager #[phone] Subjective INTERVAL HPI: patient had been complaining of some right shoulder and acw pain. There is some tenderness in the area. She has good passive range of motion of right shoulder although there is slight discomfort. Suspect msk. Trop is trending down and ekg was done. xr shoulder pending. MEDICATIONS: Reviewed Objective PHYSICAL EXAM: BP 162/67 Pulse 65 Temp (Src) 98.1 (Oral) Resp 16 Ht 5' 6" (1.68m) Wt 219 lb (99.3kg) SpO2 96% BMI 35.36 kg/(m2). O2 Therapy: Room Air Physical Exam Performed General: awake alert oriented x 3, no acute distress, resting in bed HEENT: eomi, some dysarthria, oral mucosa moist, some facial droop CV: s1s2 normal, rrr, no mrg no jvd Lung: bilateral air entry no wheezes no rales no rubs no rhonchi Abdomen: soft nt nd bowel sounds present Extremities: no marked edema skin warm and moist radial pulse 2+ Neuro: facial droop and dysarthria are present, left arm and leg weakness, monitor Lines, Drains, and Airways Line Central Line Double Lumen 03/12/20 1416 Peripherally Inserted (PICC) Right Arm Through Introducer 5.0 Micronesian 3 days Drain External Collection Device 03/12/20 1300 Assessment 3 days DATA: Diagnostic tests reviewed for today's visit: Most recent labs and imaging results. Assessment/Plan Principal Problem: 1. Fall: POA, stable PT OT Recommendation is for rehab ? 2. Acute CVA: POA, stable Neurology on board Has had echo (ef 55%, no pfo), cta, mri done Asa and statin ? Event monitor on dc as per neuro, event record hookup was ordered in [place] ? 3. Diabetes mellitus: POA, stable Monitor accuchecks On steroids which can contribute to hyperglycemia, will be getting 4 more days of steroids, might need to deescalate regimen once steroids finished Currently ordered is nph 10 units am, nph 8 units pm, lispro 10 units with meals Sliding scale Continue to monitor ? Consulted endocrine as hba1c has been elevated, recently 9.6 (12.6 prior), recs appreciated ? 4. Hypertension: POA, stable Patient was taking cardizem at home cardizem 180 mg po daily for now with holding parameters, monitor Hydralazine 25 mg PO Q8 hours added Continue to monitor ? 5. Dysphagia: POA, stable Speech/swallow on board Dysphagia level 1 with nectar thick was recommended Had mbs ? 6. Jihan: POA, stable Improving Received ivf prior ? 7. Rhabdomyolysis: POA, stable resolved ? 8. Obesity bmi 35: POA, stable ? 9. COVID positive: POA, stable gfr 53, lfts stable Patient is receiving course of decadron day 6 today, try to transition to po, gi px ppi Received course of remdesivir 96% on room air Afebrile right now ? 10. Ankle fracture: POA, stable S/p closed reduction Splint in place As per ortho, definite surgical plan 03/19/2020 for orif xr shoulder pending bc of complaint of right shoulder pain Medication and Non-Pharmacologic VTE Prophylaxis/Anticoagulants Anticoagulant AND Antiplatelet Medications (From admission, onward) Start Dose Route Frequency Ordered Stop 03/09/20 1500 aspirin 81 mg chewable tab(s) 81 mg PO/FT DAILY 03/09/20 1436 -- 03/08/20 2230 heparin 5,000 Units injection (Medical Risk Categories) 5,000 Units SUBCUTANEOUS EVERY 8 HOURS 03/08/20 2220 -- VTE Prophylaxis: heparin dvt px Disposition: Extended Care Facility Plan of care discussed with: Provider, RN, Patient SIGNATURE: Panda Coulter MD PATIENT NAME: Lisa Shirley DATE: March 15, 2020 TIME: 11:11 PM PAGER/CONTACT #: [phone] etx [phone] [facility] THERAPY NTon 03-16-2020 THERAPY NT HNO ID: [id number] Author: Jamila (Pt) Yared Service: Physical Therapy Author Type: Physical Therapist Type: Therapy (PT/OT/Speech/Resp) Filed: 03/16/2020 2:33 PM Note Text: Physical Therapy Treatment SERVICE DATE: 03/16/2020 SERVICE TIME: 1335 to 1400 ROOM: [id number] Recommended Discharge Disposition: Acute Rehab Justification For Post Acute Needs: Anticipate patient will tolerate 3 hours of daily therapy at the time of admission to post-acute setting;Living the community premorbidly;Medically complex;Motivated;Willing to participate PT 6 Clicks Score: 8 Precautions/Activity Restrictions: Fall Risk;Lines/Tubes/Drains;Ramon ght Bearing Restrictions;Bed/Chair Alarm Precaution/Activity Restriction Comments: Covid + Isolation Type: Contact/Droplet(eyewear) Extremity With Weight Bearing Restricted: Left Lower Extremity Left Lower Extremity Weight Bearing Status: NWB Current Hospital Course: Found down at home, 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 and left tri-malleolar fracture, and now COVID positive Reason for Hospital Admission: Stroke Relevant Past Medical History: CAD, DM, CKD stage 3, chronic LBP, major depressive disorder Response to Therapy Interventions: Low activity tolerance, Requires additional time to complete activities, Requires encouragement to complete activities Continue skilled needs due to: Functional mobility/skill impairments, Safety concerns Physical Therapy Problem List: Decreased Activity Tolerance;Decreased Range Of Motion;Decreased Strength;Functional Mobility Impairment;Balance Impaired Treatment Interventions: Education;Energy Conservation Training;Functional Mobility Training;Balance Training;Neuromuscular Re-education Home Environment Patient Lives With: Self/Alone Assistance Available: None Entry To Home: Stairs;With Rail Number Of Stairs Into Home: 4 Number Of Stairs To Bed/Bath: 0 Tub/Shower Type: Walk in Laundry: Minimally completes Equipment Owned: Longaccess-Shower Prior Functional Level: (driving, activity limited by LBP) Prior Functional Level Comments: 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 d/t 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 pain Patient Report: no c/o pain; reports being scared to move--but also states it feels good to sit up CURRENT FUNCTIONAL STATUS: Most recent performance Current Functional Mobility Assist Level Additional Information Rolling Supine to Sit Moderate Assistance;Additional Information instruct in how to assist with bed mobility--needed assist to achieve upright Sit to Supine Moderate Assistance;Additional Information needed assist to bring LE back into bed Scooting Sit to Stand Stand to Sit Bed to Chair Toilet/Commode Gait Stairs Curb Step Car Transfer [facility]: 3: Sit at edge of bed Learning/Educational Needs: Discharge Plan;Disease Process;Functional Activities/Mobility;Plan of Care;Respiratory Function;Stroke Education Goals for Plan of Care: Patient /Caregiver Goals: Go To Rehab Rolling with: Contact Guard Assistance Transfer supine to/from sit with: Contact Guard Assistance Transfer sit to/from stand with: Contact Guard Assistance Ambulate with: Minimal Assistance Distance: 5-10 feet NWB Left LE Device: Wheeled Walker Progress Toward Goals: Progressing slower than expected Due To: acuity; prolonged hospitalization Rehab Potential: Good PLAN: Treatment Frequency (times per week): 5(2-4) Current admission Plan of Care developed with: Patient TREATMENT INTERVENTIONS: Therapy Diagnosis: Reduced mobility-other;Muscle Weakness (generalized);Difficulty walking-musculoskeletal Interventions Provided: Therapeutic Activity (80640);Therapeutic Exercise (41613) Therapeutic Exercise (59760) Treatment Minutes: 8 $ Therapeutic Exercise (04509) Billed Units: 1 unit Seated bilat LE exercise: hip flexion, LAQ, RLE AP Supine bilat lower extremity exercise: heel slide Therapeutic Activity (18839) Treatment Minutes: 17 $ Therapeutic Activity (76972) Billed Units: 1 unit Instruct in safety with bed mobility Positioned at edge of bed for safety and stability Static sit and completed exercises as above Training AND education provided in: Bed mobility, Benefits of in-hospital mobility, Discharge planning, Exercise program instruction, Positioning, Role of Physical Therapy, Sitting balance The following therapeutic skills were used: Activity dosing, Cues for sequencing/proper technique for activity, Physical assist, Movement facilitation, Facilitation of joint range of motion Total Timed Code Treatment Minutes: 25 Total Treatment Time (minutes): 25 Please see discipline specific clinical documentation flowsheet for complete details for this therapy evaluation/treatment. SIGNATURE: Jamila Vail PT PATIENT NAME: Lisa Shirley DATE: March 16, 2020 TIME: 2:31 PM [facility] XR SHLDR >/=3V AP/TIGRE AP/OTH R RTon 03-16-2020 XR SHLDR >/=3V AP/TIGRE AP/OTHR RT Final Report DATE OF EXAM: Mar 16 2020 7:30AM AKX 5253 - XR SHLDR >/=3V AP/TIGRE AP/OTHR RT / PROCEDURE REASON: Shoulder pain, initial exam Physician Interpretation EXAM TITLE: XR SHLDR >/=3V AP/TIGRE AP/OTHR RT DATE: 03/16/2020 8:16 AM INDICATION: Right shoulder pain COMPARISON: None. FINDINGS: There is some degenerative arthritic change at the acromioclavicular joint. No fracture or dislocation is identified. There are no lytic lesions. Incidentally, a right PICC line is noted terminating near the caval atrial junction. Soft tissues are otherwise unremarkable. IMPRESSION: See above. Smalltalk Developer: [email or web address] Transcribe Date/Time: Mar 16 2020 8:16A Dictated by : JON DENTON MD This examination was interpreted and the report reviewed and electronically signed by: JON DENTON MD on Mar 16 2020 8:17AM EST Normal [facility] CASE MANAGEMon 03-15-2020 CASE MANAGEM HNO ID: [id number] Author: Paulette Cruz (Sw) Service: ? Author Type: Hospital Corpsman Type: Care Mgt Progress Note Filed: 03/15/2020 9:07 AM Note Text: CARE MANAGEMENT PROGRESS NOTE SERVICE DATE: 03/15/2020 SERVICE TIME: 9:00 AM LOS: 7 days Needs Prior to Discharge: To Be Determined Plan for OR on 03/19/2020. Pt in soft restraints and unable to discharge safely to a facility prior to surgery. Will await PT/OT evals post-op for discharge planning. SIGNATURE: JESUS Alvarez PATIENT NAME: Lisa Shirley DATE: March 15, 2020 TIME: 9:00 AM PAGER/CONTACT #: [phone] Normal [facility] CK CREATINE KINASEon 020 CK [Catalytic activity/Vol] 187 U/L Normal 42-196 [facility] Comment on above: Order Comment: Speci men Type: BLOOD SPECIMEN Performed By: #### 2 4323-8, CK ####[facility] LABORATORYCLIA [id number] [place] [address] CONSULT PROGon 03-15-2020 CONSULT PROG HNO ID: [id number] Author: Marissa Banks Service: Endocrinology Author Type: Physician Type: Consult Progress Note Filed: 03/15/2020 8:15 AM Note Text: ENDOCRINOLOGY CONSULT PROGRESS NOTE SERVICE DATE: 03/15/2020 SERVICE TIME: 7:40 AM Subjective INTERVAL HPI: Following for DM type 2, consult on 03/14 fro hyperglycemia. Adm on 03/08 with DKA, R MCA stroke, COVID 19. Notes and orders reviewed. D/W RN. Diet: DIET CARBOHYDRATE CONTROLLED p.o intake poor, needs help with meals Activity: bedrest Review of Systems: talked to pt on phone, d/w RN, no nausea, no pain, not very hungry Current Facility-Administered Medications Medication Dose Route Frequency - docusate 100 mg oral liquid (DIOCTO, COLACE) 100 mg ORAL/FEEDING TUBE BID - bisacodyl 10 mg suppository (DULCOLAX) 10 mg RECTAL DAILY PRN - ondansetron (PF) 4 mg injection (ZOFRAN) 4 mg INTRAVENOUS q 4 H PRN - heparin 5,000 Units injection 5,000 Units SUBCUTANEOUS q 8 H - acetaminophen 650 mg tab(s) (TYLENOL) 650 mg ORAL/FEEDING TUBE q 4 H PRN Or - acetaminophen 650 mg CUP (TYLENOL) 650 mg ORAL/FEEDING TUBE q 4 H PRN Or - acetaminophen 650 mg suppository (TYLENOL) 650 mg RECTAL q 4 H PRN - fentaNYL 50 mcg/mL 25 mcg injection (SUBLIMAZE) 25 mcg INTRAVENOUS q 2 H PRN - miconazole 2 % 1 application topical powder (LOTRIMIN AF, DESENEX) 1 application TOPICAL BID - atorvastatin 80 mg tab(s) (LIPITOR) 80 mg ORAL/FEEDING TUBE AT BEDTIME - dextrose 40 % 15 g 15 g ORAL PRN Or - glucagon 1 mg injection 1 mg INTRAMUSCULAR PRN Or - dextrose 50% in water 25 mL syringe 12.5 g INTRAVENOUS PRN - aspirin 81 mg chewable tab(s) 81 mg ORAL/FEEDING TUBE DAILY - Dexamethasone sodium phosphate (PF) 6 mg injection (DECADRON) 6 mg INTRAVENOUS q 24 H - diltiazem 60 mg tab(s) (CARDIZEM) 60 mg ORAL/FEEDING TUBE q 6 H - sodium chloride 0.9 % (flush) 10 mL (BD POSIFLUSH) 10 mL INTRAVENOUS q 12 H - sodium chloride 0.9 % (flush) 20 mL (BD POSIFLUSH) 20 mL INTRAVENOUS PRN - pill sheet rock hanger (patient-specific) 1 Each Miscell. (Med.Supl.;Non-Drugs) PRN - ondansetron 4 mg tab(s) (ZOFRAN) 4 mg ORAL/FEEDING TUBE q 6 H PRN - nystatin 5 mL oral liquid (MYCOSTATIN) 5 mL MUCOUS MEMBRANE QID - insulin NPH human 12 Units injection pen (intermediate acting) (NovoLIN N, HumuLIN N) 12 Units SUBCUTANEOUS BID 8A/BEDTIME - insulin lispro 8 Units pen (rapid acting) (HumaLOG KWIKPEN) 8 Units SUBCUTANEOUS w MEALS - insulin lispro pen (rapid acting) (HumaLOG KWIKPEN) SUBCUTANEOUS w MEALS - hydrALAZINE 25 mg tab(s) (APRESOLINE) 25 mg ORAL q 8 H Objective PHYSICAL EXAM: GENERAL: pt not examined due to COVID isolation; D/W RN, no distress; responding well BP 141/87 Pulse 63 Temp (Src) 98.2 (Oral) Resp 20 Ht 5' 6" (1.68m) Wt 219 lb (99.3kg) SpO2 94% BMI 35.36 kg/(m2). O2 Therapy: Room Air DATA: Diagnostic tests reviewed for today's visit: Most recent labs and imaging results. Last 24 hr BS reviewed. Recent Labs 03/14/20 2253 03/14/20 2201 03/14/20201203/14/20 1735 03/14/20 1110 03/12/20 1612 03/12/20 1612 GLUC -- -- -- -- -- -- 279* PCGLUCOSE 129* 65 75 121* 186* < > -- < > = values in this interval not displayed. Assessment/Plan Type 2 diabetes mellitus with diabetic neuropathy, without long-term current use of insulin (HCC) POA: Yes Assessment AND Plan: uncontrolled; A1c 9.6 (was 12.6 in October,); pt says long-standing duartion, home Rx Glipizide 5 mg bid and Januvia 100 mg daily. BS "high" at home per pt. On steroids, NPH 12 units bid and Regular 5 units started per natalee team. I changed Rx to NPH 12-0-0-12 Humalog 8 units tid on 03/14 pm. BS low at hs, D/W RN, NPH held last night. Will change NPH to 10-0-0-6 and cont Humalog 8 units tid (reduce if eats <30%). Acute right MCA stroke (HCC) POA: Yes Assessment AND Plan: per neuro Respiratory tract infection due to COVID-19 virus POA: Yes Assessment AND Plan: on decadron Closed left ankle fracture POA: Yes Assessment AND Plan: per ortho Rhabdomyolysis POA: Yes Assessment AND Plan: resolved Diabetic ketoacidosis without coma associated with type 2 diabetes mellitus (HCC) POA: Yes Assessment AND Plan: resolved, was on IV insulin Essential hypertension POA: Yes Assessment AND Plan: Dysphagia POA: Yes Assessment AND Plan: on dysphagia diet Chronic kidney disease, stage 3, mod decreased GFR POA: Yes Assessment AND Plan: creat 0.99 Acute kidney injury superimposed on chronic kidney disease (HCC) POA: Yes Assessment AND Plan: resolved Elevated troponin POA: Yes Assessment AND Plan: SIGNATURE: Marissa Banks MD PATIENT NAME: Lisa Shirley DATE: March 15, 2020 TIME: 8:15 AM PAGER: [phone] Normal [facility] Comp Metab 2000 Pnl SerPlon 03-15-2020 Albumin [Mass/Vol] 3.1 g/dL Low 3.9-4.9 [facility] Comment on above: Order Comment: Speci men Type: BLOOD SPECIMEN Performed By: #### 2 4323-8, CK ####[facility]ORYCLIA [id number] [place] [address] ALP [Catalytic activity/Vol] 59 U/L Normal 34-123 [facility] Comment on above: Order Comment: Speci men Type: BLOOD SPECIMEN Performed By: #### 2 4323-8, CK ####[facility]ORYCLIA [id number] [place] [address] ALT With P-5'-P [Catalytic activity/Vol] 23 U/L Normal 7-38 [facility] Comment on above: Order Comment: Speci men Type: BLOOD SPECIMEN Performed By: #### 2 4323-8, CK ####[facility]ORYCLIA [id number] [place] [address] Anion gap [Moles/Vol] 11 mmol/L Normal 9-18 [facility] Comment on above: Order Comment: Speci men Type: BLOOD SPECIMEN Performed By: #### 2 4323-8, CK ####[facility]ORYCLIA [id number] [place] [address] AST With P-5'-P [Catalytic activity/Vol] 23 U/L Normal 13-35 [facility] Comment on above: Order Comment: Speci men Type: BLOOD SPECIMEN Performed By: #### 2 4323-8, CK ####[facility]ORYCLIA [id number] [place] [address] Bilirubin [Mass/Vol] 0.7 mg/dL Normal 0.2-1.3 [facility] Comment on above: Order Comment: Speci men Type: BLOOD SPECIMEN Performed By: #### 2 4323-8, CK ####[facility]ORYCLIA [id number] [place] [address] Calcium [Mass/Vol] 8.0 mg/dL Low 8.5-10.2 [facility] Comment on above: Order Comment: Speci men Type: BLOOD SPECIMEN Performed By: #### 2 4323-8, CK ####[facility]ORATORYCLIA [id number] [place] [address] Chloride [Moles/Vol] 108 mmol/L High 97-105 [facility] Comment on above: Order Comment: Speci men Type: BLOOD SPECIMEN Performed By: #### 2 4323-8, CK ####[facility]ORATORYCLIA [id number] [place] [address] CO2 [Moles/Vol] 24 mmol/L Normal 22-30 [facility] Comment on above: Order Comment: Speci men Type: BLOOD SPECIMEN Performed By: #### 2 4323-8, CK ####[facility]ORATORYCLIA [id number] [place] [address] Creatinine [Mass/Vol] 1.02 mg/dL High 0.58-0.96 [facility] Comment on above: Order Comment: Speci men Type: BLOOD SPECIMEN Performed By: #### 2 4323-8, CK ####[facility]ORATORYCLIA [id number] [place] [address] GFR/1.73 sq M.predicted MDRD (S/P/Bld) [Vol rate/Area] mL/min/{1.73_m2} Normal [facility] Comment on above: Order Comment: Speci men Type: BLOOD SPECIMEN Result Comment: 53 eGFR (Estimated GFR) Units of measure: mL/min/1.73 meters squared eGFR is derived from the reexpressed MDRD Study equation using the following parameters: serum creatinine, age, gender and race. The creatinine assay has been calibrated to be traceable to IDMS. An eGFR <60 mL/min/1.73m2 for >3 months is consistent with chronic kidney disease. Refer to KDOQI guidelines for clinical interpretation. In patients with unstable renal function, e.g. those with acute kidney injury, the eGFR may not accurately reflect actual GFR. Performed By: #### 2 4323-8, CK ####[facility] LABORATORYCLIA [id number] [place] [address] Glucose [Mass/Vol] 169 mg/dL High 74-99 [facility] Comment on above: Order Comment: Speci men Type: BLOOD SPECIMEN Result Comment: The [place] Diabetes Association (ADA) provides guidance for cutoff values for fasting glucose and random glucose. The ADA defines fasting as no caloric intake for at least 8 hours. Fasting plasma glucose results between 100 to 125 mg/dL indicate increased risk for diabetes (prediabetes). Fasting plasma glucose results greater than or equal to 126 mg/dL meet the criteria for diagnosis of diabetes. In the absence of unequivocal hyperglycemia, results should be confirmed by repeat testing. In a patient with classic symptoms of hyperglycemia or hyperglycemic crisis, random plasma glucose results greater than or equal to 200 mg/dL meet the criteria for diagnosis of diabetes. Reference: Standards of Medical Care in Diabetes 2016, [place] Diabetes Association. Diabetes Care. 2016.39(Suppl 1). Performed By: #### 2 4323-8, CK ####[facility] LABORATORYCLIA [id number] [place] [address] Potassium [Moles/Vol] 3.8 mmol/L Normal 3.7-5.1 [facility] Comment on above: Order Comment: Speci men Type: BLOOD SPECIMEN Performed By: #### 2 4323-8, CK ####[facility] LABORATORYCLIA [id number] [place] [address] Protein [Mass/Vol] 6.0 g/dL Low 6.3-8.0 [facility] Comment on above: Order Comment: Speci men Type: BLOOD SPECIMEN Performed By: #### 2 4323-8, CK ####[facility] LABORATORYCLIA [id number] [place] [address] Sodium [Moles/Vol] 143 mmol/L Normal 136-144 [facility] Comment on above: Order Comment: Speci men Type: BLOOD SPECIMEN Performed By: #### 2 4323-8, CK ####[facility] LABORATORYCLIA [id number] [place] [address] Urea nitrogen [Mass/Vol] 32 mg/dL High 7-21 [facility] Comment on above: Order Comment: Speci men Type: BLOOD SPECIMEN Performed By: #### 2 4323-8, CK ####[facility] LABORATORYCLIA [id number] [place] [address] HIGH SENSITIVITY TROPONIN To n 03-15-2020 HIGH SENSITIVITY MAXIMILIANO 15 ng/L High <12 [facility] Comment on above: Order Comment: Speci men Type: BLOOD SPECIMEN Result Comment: When assessing risk for acute coronary syndromes: In patients undergoing blood draw greater than or equal to 2 hours from symptom onset, with history of very low to moderate risk and non-ischemic ECG, an initial hs-Troponin T less than 12 ng/L AND a 1 hour delta hs-Troponin T less than 3 ng/L should be considered very low risk for 30 day MACE. Performed By: #### 2 4321-2 #### [facility] CLIA [id number] [address] [place] [address] NURSING PROGon 03-15-2020 NURSING PROG HNO ID: [id number] Author: Maddison Tovar) JONNY Thorne Service: ? Author Type: Registered Nurse Type: Nursing Progress Note Filed: 03/16/2020 7:47 PM Note Text: Nursing Progress: Topic: RESTRAINT NON-VIOLENT PATIENT NAME: Lisa Shirley PATIENT LOCATION: [place] [address]/[place] [address]* The patient demonstrates Attempting to Remove Medical Devices Vital to Medical Stability, Confusion, Lack of Understanding/Ability to Comply with Safety Directions, Impulsive Behavior, Inability to Retain Information Regarding Safety Directions as evidenced by the following behaviors attempting to pull on central line which pose an imminent danger to self or others. The following interventions were attempted but were not effective in protecting the patient's safety: Alarms, Bed in Low/Locked Position, Call Light Within Reach, IV/Feeding Bag/Pump Out of Vision, Gauze Wrap/Sleeve IV Site, Modify Equipment, Frequent Observation Next, a comprehensive assessment was performed and warranted placing the patient in Soft Bilateral Wrists, the least restrictive restraint needed to protect the patient's safety. Ongoing safety assessments and evaluation for earliest removal of restraints will be performed. DATE: March 16, 2020 TIME: 7:47 PM Maddison Thorne RN [facility] PROGRESSon 03-15-2020 PROGRESS HNO ID: [id number] Author: Patito Weston Service: Orthopaedic Surgery Author Type: Resident Type: Progress Notes Filed: 03/15/2020 5:34 AM Note Text: ORTHOPAEDIC SURGERY DAILY PROGRESS NOTE ASSESSMENT: 74 year old female with left trimalleolar fracture PLAN: - Medical management per primary - Pain control per primary - Ice/elevate LLE - NWB LLE - Splint in place, maintain,?keep dry, clean and intact - Appreciate medicine and infectious disease treatment? - Definitive surgical plan on 03/19/2020 for ORIF of left trimal fx INTERVAL HPI: No acute events overnight. Due to Covid 19, visit done via chart review. OBJECTIVE: BP 163/58 Pulse (!) 52 Temp 36.5 ?C (97.7 ?F) (Axillary) Resp 20 Ht 167.6 cm (5' 6") Wt 99.3 kg (219 lb) SpO2 98% BMI 35.35 kg/m? Exam: Patient not examined due to Covid precautions. Recent Labs 03/12/20 1612 CREAT 0.99* BUN 32* NA 142 K 3.8 CHLOR 107* CO2 25 ANION 10 GLUC 279* CA 7.9* AST 12* ALT 14 ALKPHOS 52 TBILI 0.3 COAGS: APTT 23.7 03/08/2020 PT INR 1.1 03/12/2020 SED RATE/CRP: No results found for this basename: wsr:*,crp:* Imaging: No new orthopaedic imaging. Patito Weston MD Orthopedic Surgery Resident 03/15/2020 5:34 AM [facility] CASE MANAGEMon 03-14-2020 CASE MANAGEM HNO ID: [id number] Author: Paulette Cruz (Sw) Service: ? Author Type: Hospital Corpsman Type: Care Mgt Progress Note Filed: 03/15/2020 8:42 AM Note Text: CARE MANAGEMENT PROGRESS NOTE SERVICE DATE: 03/14/2020 SERVICE TIME: 4:14 PM LOS: 6 days Needs Prior to Discharge: To Be Determined Pt currently in soft restraints, COVID+, and planned surgery on 03/19. Noted suggestion for SNF placement until surgery, however pt would need to be restraint free for 24 hrs. SIGNATURE: JESUS Alvarez PATIENT NAME: Lisa Shirley DATE: March 14, 2020 TIME: 4:14 PM PAGER/CONTACT #: [phone] [facility] CONSULTon 03-14-2020 CONSULT HNO ID: [id number] Author: Marissa Banks Service: Endocrinology Author Type: Physician Type: Consults Filed: 03/14/2020 3:31 PM Note Text: I have reviewed the patient's medical record in detail. Consult note dictated. See new insulin orders. Marissa Banks MD [facility] CONSULT HNO ID: [id number] Author: Marissa Banks Service: Endocrinology Author Type: Physician Type: Consults Filed: 03/15/2020 6:37 PM Note Text: [facility] - Consultation PATIENT NAME: LISA SHIRLEY CSN: [id number] DATE OF : 1945 SEX/AGE: F/74 PATIENT TYPE: I HOSP [facility] [place]: [facility] LOCATION: [facility] DATE OF SERVICE: 03/14/2020 TIME OF SERVICE: 03:23 PM REFERRING PHYSICIAN: ASHLEIGH THURSTON REASON FOR CONSULTATION: Diabetes management, COVID, patient on steroids. HISTORY: The patient is a 74-year-old female, who was admitted who was found unresponsive at home. She was transferred from [facility] with acute right MCA stroke. Patient was initially found to be COVID negative and then she had COVID positive 2 days later. She is on Decadron, which was 03/10 of 6 mg Decadron daily. I tried talking to the patient. Patient does not remember how long she is diabetic. She said it is a long time. She does not check her sugars properly regularly. At home, she is on glipizide 5 mg b.i.d. and she is on Januvia 100 mg daily. I reviewed patient's epic records. Her last A1c was 12.6 in October of this year and now her A1c is 9.6. Patient had DKA on presentation. She was on IV insulin infusion. Then, she had Corpak and she was on tube feedings. Patient is cleared by Speech Therapy and now she is on a dysphagia diet. She is eating fairly well. She states she does not have any nausea. She denies any pain or discomfort. She denied denies any shortness of breath. Patient is having some pain in her left ankle where she had the fracture. PAST MEDICAL HISTORY: History of type 2 diabetes, history of hypertension, history of chronic kidney disease, history of hyperlipidemia, history of GERD, history of depression, history of CVA, history of sleep apnea, history of back pain, and history of anxiety. FAMILY HISTORY: Patient is not aware of any family members with diabetes. She states she is not sure. SOCIAL HISTORY: No smoking or alcohol use listed. REVIEW OF SYSTEMS: As per chart review and as per History of Present Illness, otherwise negative. PHYSICAL EXAMINATION: I reviewed the epic records. Height is 5 feet 6 inches, weight is 219 pounds or 99 kg, BMI is 35, afebrile, temperature 36.5, BP 136/84, heart rate is 64 and regular. Physical exam in person not performed due to patient being on COVID restriction. Patient was talking in full sentences. She was not dyspneic. She was oriented to self and oriented to place. She was not dyspneic. LABORATORY STUDIES: Reviewed all the labs since admission. Sodium 142, potassium 3.8, chloride 107, CO2 of 25, BUN 32, creatinine 0.99, this was on 03/12. Her blood sugars yesterday 167, 174, 154, and 174, this morning 194 and 186. CLINICAL IMPRESSION: 1. Diabetes mellitus type 2, uncontrolled on glipizide 5 mg b.i.d. and Januvia 100 mg daily at home. A1c is 9.6 on admission. Prior to that it had been 12.6 in October. Patient does not monitor her blood sugars regularly and she states they are high at home. Currently, she is on dexamethasone. She has been started on NPH 12 units b.i.d. and regular insulin sliding scale. She was started on dysphagia diet and regular insulin 5 units before meals and bedtime was also started. Her blood sugars are still greater than 150. 2. Acute right middle cerebral artery stroke on admission. 3. COVID positive. Patient is on dexamethasone and has been given remdesivir. 4. Left ankle fracture. Patient has reduction planned on 03/19 per Orthopedics. 5. Acute kidney injury with chronic kidney disease. Her creatinine is stable now. RECOMMENDATIONS: 1. Discussed with the patient the importance of glycemic control since the patient is on steroids and she has infection. 2. We will continue. We will change the diet to dysphagia level 1 pureed diet with carb control. 3. I will change her programmed NPH to 12 units in the morning 8 a.m. and 12 units at bedtime at 9 p.m. 4. I will discontinue regular insulin and start her on programmed Humalog insulin 8 units with each meal with a sliding scale for Humalog before meals, but not at bedtime. 5. We will follow the patient with you and then give further recommendation and make adjustments in the insulin with aim for blood sugars to be in low 100s. Marissa Banks MD Endocrinology SM:modl /[id number] [facility] CONSULT PROGon 03-14-2020 CONSULT PROG HNO ID: [id number] Author: Danuta Pulido (Pa) Service: Neurology ICU Author Type: Physician [employer] Machine Setter Type: Consult Progress Note Filed: 03/14/2020 10:30 AM Note Text: NEURO STROKE PROGRESS NOTE SERVICE DATE: 03/14/2020 SERVICE TIME: 0950 Subjective INTERVAL HISTORY: Patient resting in bed, she is tired and doesn't want to open her eyes but is then willing to participate. She has no complaints for me today and is pleasant. MEDICATIONS Current Facility-Administered Medications Medication Dose Route Frequency - docusate 100 mg oral liquid (DIOCTO, COLACE) 100 mg ORAL/FEEDING TUBE BID - bisacodyl 10 mg suppository (DULCOLAX) 10 mg RECTAL DAILY PRN - ondansetron (PF) 4 mg injection (ZOFRAN) 4 mg INTRAVENOUS q 4 H PRN - heparin 5,000 Units injection 5,000 Units SUBCUTANEOUS q 8 H - acetaminophen 650 mg tab(s) (TYLENOL) 650 mg ORAL/FEEDING TUBE q 4 H PRN Or - acetaminophen 650 mg CUP (TYLENOL) 650 mg ORAL/FEEDING TUBE q 4 H PRN Or - acetaminophen 650 mg suppository (TYLENOL) 650 mg RECTAL q 4 H PRN - fentaNYL 50 mcg/mL 25 mcg injection (SUBLIMAZE) 25 mcg INTRAVENOUS q 2 H PRN - miconazole 2 % 1 application topical powder (LOTRIMIN AF, DESENEX) 1 application TOPICAL BID - atorvastatin 80 mg tab(s) (LIPITOR) 80 mg ORAL/FEEDING TUBE AT BEDTIME - insulin NPH human 12 Units injection pen (intermediate acting) (NovoLIN N, HumuLIN N) 12 Units SUBCUTANEOUS BID - dextrose 40 % 15 g 15 g ORAL PRN Or - glucagon 1 mg injection 1 mg INTRAMUSCULAR PRN Or - dextrose 50% in water 25 mL syringe 12.5 g INTRAVENOUS PRN - aspirin 81 mg chewable tab(s) 81 mg ORAL/FEEDING TUBE DAILY - remdesivir 100 mg in NaCl 0.9% 250 mL 100 mg INTRAVENOUS q 24 HR And - sodium chloride 0.9 % (flush) 30 mL (BD POSIFLUSH) 30 mL INTRAVENOUS q 24 HR - Dexamethasone sodium phosphate (PF) 6 mg injection (DECADRON) 6 mg INTRAVENOUS q 24 H - diltiazem 60 mg tab(s) (CARDIZEM) 60 mg ORAL/FEEDING TUBE q 6 H - hydrALAZINE 25 mg tab(s) (APRESOLINE) 25 mg ORAL/FEEDING TUBE q 6 H PRN - sodium chloride 0.9 % (flush) 10 mL (BD POSIFLUSH) 10 mL INTRAVENOUS q 12 H - sodium chloride 0.9 % (flush) 20 mL (BD POSIFLUSH) 20 mL INTRAVENOUS PRN - pill sheet rock hanger (patient-specific) 1 Each Miscell. (Med.Supl.;Non-Drugs) PRN - ondansetron 4 mg tab(s) (ZOFRAN) 4 mg ORAL/FEEDING TUBE q 6 H PRN - nystatin 5 mL oral liquid (MYCOSTATIN) 5 mL MUCOUS MEMBRANE QID - insulin regular human 5 Units injection (short acting) (NovoLIN R,HumuLIN R) 5 Units SUBCUTANEOUS w MEALS - insulin regular human 0-10 Units injection (short acting) (NovoLIN R,HumuLIN R) 0-10 Units SUBCUTANEOUS w MEALS AND HS - carvedilol 25 mg tab(s) (COREG) 25 mg ORAL/FEEDING TUBE BID w MEALS Objective PHYSICAL EXAM Vital Signs: BP 162/81 Pulse (!) 58 Temp 36.8 ?C (98.2 ?F) (Axillary) Resp 16 Ht 167.6 cm (5' 6") Wt 99.3 kg (219 lb) SpO2 95% BMI 35.35 kg/m? NEUROLOGICAL: LOC: 0 - alert and responsive 0 LOC Questions: 0 - both correct 0 LOC Commands: 0 - both correct 0 Best Gaze: 0 - normal gaze 0 Visual: 1 - partial hemianopia, quadrantanopia 1 Facial Palsy: 2 - partial paralysis 2 Motor Left Arm: 3 - no antigravity effort but even minimal movements count 3 Motor Right Arm: 0 - no drift 0 Motor Left Le - no antigravity effort but even minimal movements count 3 Motor Right Le - drift but does not hit bed 1 Limb Ataxia: 0 - no ataxia (or aphasic, hemiplegic) 0 Sensory: 1 - mild to moderate unilateral loss but patient aware of touch (or aphasic, confused) 1 Best Language: 1 - mild-mod aphasia (comprehensible) 1 Dysarthria: 1 - mild-mod slurred 1 Extinction and Inattention: 0 - normal, none detected (or visual loss alone) 0 Daily NIHSS Score: 13 (03/14/20 1010 : Danuta Pulido (Pa)) 13 MENTAL STATUS: Alert, oriented to person, place and time and Follows commands CRANIAL NERVES: PERRLA, EOM's intact, Facial sensation intact, Face symmetric, Tongue protrudes midline and mild dyarthria MOTOR: Normal tone. LUE and LLE unable to resist gravity but movement is apparant MOTOR STRENGTH: RUe and RLE 4+/5 LUE and LLE 1/5 SENSATION: Intact light touch, some confusion COORDINATION: Not assessed, patient in restaints GAIT: Not assessed DATA: Diagnostic tests reviewed for today's visit: Lipids, HbA1c, Most recent labs and imaging results. MEDICAL EVENTS: No medical events have been recorded. STROKE 9 CARE AND PREVENTION CHECKLIST 1. Is the patient currently on an ANTITHROMBOTIC medication (Antiplatelet or Anticoagulant): Aspirin 2. Does the patient have known AFIB/FLUTTER: No 3. Is the patient on a STATIN: Atorvastatin 80 mg Reason for no statin/other medication prescribed: Allergy to HMG CoA Reductase Inhibitors (document in allergy activity) 4. Is the patient on VTE prophylaxis: Pharmacological prophylaxis Pharmacological intervention type: Heparin SQ 5. GLYCEMIC Control Medications: BG needs further management 6. Stroke BP Goals: SBP <140 Stroke BP Control: BP needs further management 7. Stroke IVF/Nutrition: IVF 8. TEMPERATURE Control: Normothermic 9. Does the patient need THERAPY: Yes Therapy involvement: PT;OT;ST;PMANDR Stroke Care and Prevention (personally reviewed by DANUTA PULIDO PA-C): Daily Rounding Date: 03/14/20 Daily Rounding Time: 1013 PROBLEM LIST: Principal Problem: Acute right MCA stroke (HCC) POA: Yes Active Problems: Respiratory tract infection due to COVID-19 virus POA: Yes Type 2 diabetes mellitus with diabetic neuropathy, without long-term current use of insulin (HCC) POA: Yes Essential hypertension POA: Yes Dysphagia POA: Yes Chronic kidney disease, stage 3, mod decreased GFR POA: Yes Acute kidney injury superimposed on chronic kidney disease (HCC) POA: Yes Elevated troponin POA: Yes Closed left ankle fracture POA: Yes Resolved Problems: Rhabdomyolysis POA: Yes Diabetic ketoacidosis without coma associated with type 2 diabetes mellitus (HCC) POA: Yes Medication and Non-Pharmacologic VTE Prophylaxis/Anticoagulants Anticoagulant AND Antiplatelet Medications (From admission, onward) Start Dose Route Frequency Ordered Stop 03/09/20 1500 aspirin 81 mg chewable tab(s) 81 mg PO/FT DAILY 03/09/20 1436 -- 03/08/20 2230 heparin 5,000 Units injection (Medical Risk Categories) 5,000 Units SUBCUTANEOUS EVERY 8 HOURS 03/08/20 2220 -- 03/09/20 0600 activity - mobilize patient (ak,me) 03/08/20 2215 pneumatic compression stockings ([place]) VTE Prophylaxis: VTE prophylaxis appropriate Impression/Recommendations IMPRESSION Lisa Shirley is a 74 year old, female, patient. 1)acute RMCA stroke -LKW 03/06 -Evolving R caudate, insular, and frontal infarcts on presenting non contrast CTH -CTAs nondiagnostic 2/2 contrast extravasation 2/2 loss of access/blown IV >24-48 hours from LKW, therefore not candidate for tPA and not candidate for intervention given already evident stroke on CT -ASA 81mg daily -Lipitor 80 mg daily, LDL-142 -Ha1c-9.6, needs further management -Normotension goal -CTA with no stenosis in verts or carotids -ECHO- LVH EF 55%, no PFO -eli order event monitor for DC -no further neuro work up at this time. Will sign off. Please call with questions or concern. -d/c instructions written and follow up miroslava request sent. -please call with questions or concerns. Stroke Mechanism Stroke Mechanism - LIP ENTRY ONLY Ischemic Stroke or TIA: Ischemic Stroke TOAST Mechanism ([facility]-MODIFIED): Stroke of Undetermined Etiology Daily NIHSS Score: 13 SIGNATURE: DANUTA PULIDO PA-C PATIENT NAME: Lisa Shirley DATE: March 14, 2020 TIME: 10:13 AM PAGER/CONTACT #: [phone] Part of my note may have been copied from previous documentation. It has been reviewed and is accurate. [facility] NURSING PROGon 03-14-2020 NURSING PROG HNO ID: [id number] Author: Pham Jean-BaptisteRn) JONNY Escalera Service: ? Author Type: Registered Nurse Type: Nursing Progress Note Filed: 03/14/2020 10:45 PM Note Text: Nursing Progress: Topic: RESTRAINT NON-VIOLENT PATIENT NAME: Lisa Shirley PATIENT LOCATION: [id number]/[facility]* The patient demonstrates Attempting to Remove Medical Devices Vital to Medical Stability, Confusion, Lack of Understanding/Ability to Comply with Safety Directions, Impulsive Behavior, Inability to Retain Information Regarding Safety Directions as evidenced by the following behaviors pulling at PICC line and attempting to get out of bed which pose an imminent danger to self or others. The following interventions were attempted but were not effective in protecting the patient's safety: Alarms, Bed in Low/Locked Position, Call Light Within Reach, IV/Feeding Bag/Pump Out of Vision, Gauze Wrap/Sleeve IV Site, Modify Equipment, Frequent Observation Next, a comprehensive assessment was performed and warranted placing the patient in Soft Bilateral Wrists, the least restrictive restraint needed to protect the patient's safety. Ongoing safety assessments and evaluation for earliest removal of restraints will be performed. DATE: March 14, 2020 TIME: 10:44 PM Pham Escalera RN [facility] NURSING PROG HNO ID: [id number] Author: Elda Jean-BaptisteRn) JONNY Isaac Service: Nursing Author Type: Registered Nurse Type: Nursing Progress Note Filed: 03/14/2020 2:39 PM Note Text: Nursing Progress: Topic: RESTRAINT NON-VIOLENT PATIENT NAME: Lisa Shirley PATIENT LOCATION: [id number]/[facility]* The patient demonstrates Attempting to Remove Medical Devices Vital to Medical Stability, Confusion, Lack of Understanding/Ability to Comply with Safety Directions, Impulsive Behavior, Inability to Retain Information Regarding Safety Directions as evidenced by the following behaviors pulling at PICC line, attempting to get out of bed which pose an imminent danger to self or others. The following interventions were attempted but were not effective in protecting the patient's safety: Alarms, Bed in Low/Locked Position, Call Light Within Reach, IV/Feeding Bag/Pump Out of Vision, Gauze Wrap/Sleeve IV Site, Modify Equipment, Frequent Observation Next, a comprehensive assessment was performed and warranted placing the patient in Soft Bilateral Wrists, the least restrictive restraint needed to protect the patient's safety. Ongoing safety assessments and evaluation for earliest removal of restraints will be performed. DATE: March 14, 2020 TIME: 2:38 PM Elda Isaac RN [facility] NURSING PROG HNO ID: [id number] Author: Pham Escalera RN Service: ? Author Type: Registered Nurse Type: Nursing Progress Note Filed: 03/13/2020 11:01 PM Note Text: Nursing Progress: Topic: RESTRAINT NON-VIOLENT PATIENT NAME: Lisa Shirley PATIENT LOCATION: [place] [address]/[place] [address]* The patient demonstrates Attempting to Remove Medical Devices Vital to Medical Stability, Confusion, Lack of Understanding/Ability to Comply with Safety Directions, Impulsive Behavior, Inability to Retain Information Regarding Safety Directions as evidenced by the following behaviors pulling at PICC, which pose an imminent danger to self or others. The following interventions were attempted but were not effective in protecting the patient's safety: Alarms, Bed in Low/Locked Position, Call Light Within Reach, IV/Feeding Bag/Pump Out of Vision, Gauze Wrap/Sleeve IV Site, Modify Equipment, Frequent Observation Next, a comprehensive assessment was performed and warranted placing the patient in Soft Bilateral Wrists, the least restrictive restraint needed to protect the patient's safety. Ongoing safety assessments and evaluation for earliest removal of restraints will be performed. DATE: March 13, 2020 TIME: 10:59 PM Pham Escalera RN [facility] NUTRITIONon 03-14-2020 NUTRITION HNO ID: [id number] Author: Pete Ferrari Service: Nutrition Therapy Author Type: Registered Dietitian Type: Nutrition Filed: 03/14/2020 1:25 PM Note Text: NUTRITION THERAPY PROGRESS NOTE SERVICE DATE: 03/14/2020 SERVICE TIME: 1040 Due to positive COVID-19 test and patient in restraints (cannot access phone), encounter was completed by using medical record and speaking with RN Nutrition Assessment: Recommended Malnutrition Diagnosis: No Malnutrition Identified (03/09/20 1118 : Ann (Danika) DANIKA Friend) Estimated kilocalorie needs: 1480 - 1780 Calorie Calculation Method: 25-30 kcals/kg Estimated protein needs (grams): 71 - 90 Grams protein determined by: 1.2-1.5 g/kg;[place] Body Weight Care Plan: Continue current diet diet per rec Supplements: Boost Glucose Control(BID; thicken to nectar thick consistency) Medications: Appetite stimulants Monitor and Evaluation: Meet greater than 75% of estimated needs;Monitor labs, I/Os, vital signs, weight;Monitor fluid/electrolyte balance;Monitor bowel function Discharge Recommendations: Diet;Oral Supplements Diet: per rec Oral Supplements: Boost Glucose control 1-3 times a day depending on PO intake Interval History: 74 yof admitted for stroke last seen by nutrition on 03/11. Restraints placed on 03/12 d/t patient pulling at IVs and equipment. PICC placed 03/12. recommended dysphagia level 1 with nectar thick liquids and RN assist on 03/12. Ortho plans to perform surgery on ankle on 03/19. Anthropometrics: Height: 167.6 cm (5' 6") Weight: 99.3 kg (219 lb) Dosing Weight: 59.3 kg (130 lb 11.7 oz) Usual Weight: 96.3 kg (212 lb 4.9 oz) Body mass index is 35.35 kg/m?. Obese Weight change percentage over time: 2 kg lost in 5 days Last 3 Encounter Wt Readings: Date: Wt: 03/13/2020 99.7 kg (219 lb 11.2 oz) 03/08/2020 101.7 kg (224 lb 3.3 oz) Intake History: Current Intake: Less than 75% estimated energy needs over: 1 day(RN reported patient tolerated TF fine. However, does not tolerate/ like pureed diet.) Current Diet: DIET FOOD CONSISTENCY CONTROLLED MNT Billing Type: Re-assess/15 min 2 units SIGNATURE: Pete Ferrari RD PATIENT NAME: Lisa Shirley DATE: March 14, 2020 TIME: 1324 PAGER: [phone] [facility] PROGRESSon 03-14-2020 PROGRESS HNO ID: [id number] Author: Panda Coulter Service: Hospital Medicine Author Type: Physician Type: Progress Notes Filed: 03/14/2020 11:52 PM Note Text: DEPARTMENT OF HOSPITAL MEDICINE PROGRESS NOTE SERVICE DATE: 03/14/2020 SERVICE TIME: 1:27 PM Hospital Medicine/Primary Attending: Panda Coulter MD NIGHT AND WEEKEND COVERAGE: [place] COVERAGE: From 7am - 7pm, please call [phone] After 7pm, please call cross cover pager #[phone] Subjective INTERVAL HPI: patient seen at bedside. Some dysarthria but she is oriented. Did not have acute complaints. Blood pressure trending high. Antihypertensive added - continue to monitor. MEDICATIONS: Reviewed Objective PHYSICAL EXAM: BP 171/84 Pulse 60 Temp (Src) 98.2 (Axillary) Resp 16 Ht 5' 6" (1.68m) Wt 219 lb (99.3kg) SpO2 98% BMI 35.36 kg/(m2). O2 Therapy: Room Air Physical Exam Performed General: awake alert oriented x 3, no acute distress, resting in bed HEENT: eomi, some dysarthria, oral mucosa moist, some facial droop CV: s1s2 normal, rrr, no mrg no jvd Lung: bilateral air entry no wheezes no rales no rubs no rhonchi Abdomen: soft nt nd bowel sounds present Extremities: no marked edema skin warm and moist radial pulse 2+ Neuro: facial droop and dysarthria are present, left arm and leg weakness, monitor Lines, Drains, and Airways Line Central Line Double Lumen 03/12/20 1416 Peripherally Inserted (PICC) Right Arm Through Introducer 5.0 Micronesian 1 day Drain External Collection Device 03/12/20 1300 Assessment 2 days DATA: Diagnostic tests reviewed for today's visit: Most recent labs and imaging results. Assessment/Plan Principal Problem: 1. Fall: POA, stable PT OT Recommendation is for rehab 2. Acute CVA: POA, stable Neurology on board Has had echo (ef 55%, no pfo), cta, mri done Asa and statin Event monitor on dc as per neuro, event record hookup was ordered in [place] 3. Diabetes mellitus: POA, stable Monitor accuchecks On steroids which can contribute to hyperglycemia Currently ordered is nph 12 units bid, lispro 5 units with meals Sliding scale Continue to monitor Will consult endocrine as hba1c has been elevated, recently 9.6 (12.6 prior) 4. Hypertension: POA, stable Patient was taking cardizem at home Currently with cardizem 60 mg PO Q6 hours ordered Hydralazine 25 mg PO Q8 hours added Continue to monitor 5. Dysphagia: POA, stable Speech/swallow on board Dysphagia level 1 with nectar thick was recommended Had mbs 6. Jihan: POA, stable Improving Received ivf prior 7. Rhabdomyolysis: POA, stable Ck was trending down Will repeat in the am 8. Obesity bmi 35: POA, stable 9. COVID positive: POA, stable gfr 55 Patient is receiving course of decadron day 5 today Day 5 of remdesivir today lfts stable 98% on room air Afebrile right now 10. Ankle fracture: POA, stable S/p closed reduction Splint in place As per ortho, definite surgical plan 03/19/2020 for orif Medication and Non-Pharmacologic VTE Prophylaxis/Anticoagulants Anticoagulant AND Antiplatelet Medications (From admission, onward) Start Dose Route Frequency Ordered Stop 03/09/20 1500 aspirin 81 mg chewable tab(s) 81 mg PO/FT DAILY 03/09/20 1436 -- 03/08/20 2230 heparin 5,000 Units injection (Medical Risk Categories) 5,000 Units SUBCUTANEOUS EVERY 8 HOURS 03/08/20 2220 -- VTE Prophylaxis: heparin dvt px Disposition: Acute Rehab Plan of care discussed with: Patient SIGNATURE: Panda Coulter MD PATIENT NAME: Lisa Shirley DATE: March 14, 2020 TIME: 1:27 PM PAGER/CONTACT #: [phone] [facility] PROGRESS HNO ID: [id number] Author: Leland Herrera Service: Orthopaedic Surgery Author Type: Physician Type: Progress Notes Filed: 03/14/2020 7:45 PM Note Text: ORTHOPAEDIC SURGERY DAILY PROGRESS NOTE ORTHO STAFF: Agree with resident assessment and plan noted below. Plan for surgical stabilization 03/19/2020 as described. NOTE: THERE IS NO MECHANISM FOR A COVID+ PATIENT COMING TO THE HOSPITAL FOR OUTPATIENT SURGERY. Her surgical plan is contingent on the transfer from Covid unit to OR room. Will continue to clarify with surgical services. Leland Herrera MD ASSESSMENT: 74 year old female with left trimalleolar fracture PLAN: - Medical management per primary - Pain control per primary - Ice/elevate LLE - NWB LLE - Splint in place, maintain,?keep dry, clean and intact - Appreciate medicine and infectious disease treatment? - Definitive surgical plan on 03/19/2020 for ORIF of left trimal fx INTERVAL HPI: No acute events overnight. Due to Covid 19, visit done via chart review. OBJECTIVE: BP 145/77 Pulse (!) 57 Temp 36.6 ?C (97.9 ?F) (Axillary) Resp 18 Ht 167.6 cm (5' 6") Wt 99.7 kg (219 lb 11.2 oz) SpO2 95% BMI 35.46 kg/m? Exam: Patient not examined due to Covid precautions. Recent Labs 03/12/20 1612 03/11/20 0842 CREAT 0.99* -- BUN 32* -- NA 142 -- K 3.8 -- CHLOR 107* -- CO2 25 -- ANION 10 -- GLUC 279* -- CA 7.9* -- AST 12* -- ALT 14 -- ALKPHOS 52 -- TBILI 0.3 -- WBC -- 9.87 HB -- 12.2 HCT -- 35.8* PLT -- 244 COAGS: APTT 23.7 03/08/2020 PT INR 1.1 03/12/2020 SED RATE/CRP: No results found for this basename: wsr:*,crp:* Imaging: No new orthopaedic imaging. SIGNATURE: Sean García MD PATIENT NAME: Lisa Shirley DATE: 03/14/20 TIME: 5:58 AM PAGER/CONTACT #: [phone] [facility] THERAPY NTon 03-14-2020 THERAPY NT HNO ID: [id number] Author: Osmar (Ccc-Traffic Reporter) ALEYDA Calloway/FLOW MANAGER Service: Speech/Swallow Author Type: Speech Language Pathologist Type: Therapy (PT/OT/Speech/Resp) Filed: 03/14/2020 3:44 PM Note Text: Speech Therapy Treatment SERVICE DATE: 03/14/2020 SERVICE TIME: 1420 to 1445 ROOM: [id number] IMPRESSION: Patient demonstrates oropharyngeal dysphagia which is negatively impacting his/her ability to effectively maintain adequate nutrition and hydration and/or airway safety. Patient demonstrates cognitive-communication deficits which is negatively impacting the patient's ability to effectively communicate basic ADL medical and social wants/needs with familiar and unfamiliar communication partners. Diet Recommendations: Dysphagia Level 1 (Pureed) Mildly Thick Liquids IDDSI Level 2 (Cross Anchor Thick) Medications crushed in puree (pudding/applesauce) ? Swallowing Precautions Recommendations: 1:1 Supervision Alert (patient should be fully alert for P.O. intake) Feed / Eat at a slow rate No straws Sit upright 90 degrees for all PO Small Bite/Sip Throat clear, reswallow ? Nursing Recommendations: See swallow guide posted in patients room;Reinforce use of swallowing strategies;Reinforce use of communication strategies Recommended Discharge Disposition: Acute Rehab Justification for Recommended Discharge Disposition: Patient can tolerate 3 hours of therapy per day;Willing to participate;Medically complex;Good sitting tolerance;Motivated Current Hospital Course: COVID-19+ transfer from [facility] to [facility] [place]. CT chest There is a Corpak tube coursing below the diaphragm. CTA head completed today. Reason for Hospital Admission: Stroke Rehabilitation Precautions: Modified Diet;Aspiration Precautions;Dysphagia;Cogni tive Linguistics Deficits;Communication Deficits;Isolation;Visual Deficits;Diabetic Isolation Type: Contact/Droplet(eyewear) Reason for Speech Therapy Consult: Stroke: assess swallowing and speech/cognition Relevant Past Medical History: Anxiety, Depression, DM, Fatigue, HTN, Morbid obesity, Panic state as acute reaction to stress, sleep disorder, Stroke, DM Response to Therapy Interventions: Aspiration Risk, Cognitive Deficits, Good Participation in activities, Fatigue, Multiple medical concerns Speech Therapy Problem List: Dysphagia;Cognitive-Linguis tic Impairment;Dysarthria Patient Report: The food is too salty Current Status Current Feeding Method: Oral Current Diet Textures: Dysphagia Level 1 (Pureed), Mildly Thick Liquids IDDSI Level 2 (Cross Anchor Thick) Swallow Consistencies Presented: Mildly Thick Liquids IDDSI Level 2 (Cross Anchor Thick), Puree Response to Consistencies Presented: No overt clinical signs or symptoms of aspiration Patient with decreased alertness today Unable to self feed due to left neglect and cognitive deficits Drank thin via cup (cued by Speech Therapy to follow safe swallow strategies of throat-clear, reswallow): without overt clinical signs or symptoms of aspiration +cough when took too large of sip or sequential sips Educated on importance of drinking cup instead of straw Ate puree with suspected slow a-p movement but no signs or symptoms of aspiration Took pills crushed in pudding without difficulty Completed effortful swallow x8 today Recommend continue current diet + safe swallow strategies Speech Therapy to follow for dysphagia management Speech-Language, Cognition Unable to attend to midline today, only able to maintain eye contact for 30 seconds or less x5 Unable to even established eye contact on the left 0/5 despite maximum physical/verbal cueing Speech Therapy positioned pillow under head to prevent neck from getting stiff from constant gaze right Able to complete single syllable word over articulation today with 5/10 accuracy Patient requested to rest Speech Therapy to follow to improve cognitive-communication Functional Communication Measure (FCM) Current FCM Level: Swallowing Level;Motor Speech;Attention FCM Swallowing Level: 4 FCM Attention Level: 1 FCM Motor Speech Level: 3 Patient /Caregiver Goals: Eat/Drink Without Restrictions;Improve Cognition;Improve Communication Goals for Plan of Care: Swallowing Goals: Patient will participate in a Modified Barium Swallow Study (MBS) to thoroughly evaluate the oral and pharyngeal phase of the swallow, which cannot be substantiated through a clinical swallowing evaluation only. Through further diagnostic testing a definitive diagnosis/identification of the patient's current swallowing function and recommended treatment plan can be established. - goal met and new goals established 03/13/2020 Patient will tolerate Dysphagia Level 1 (Pureed) diet consistency while utilizing compensatory/swallowing strategies given maximal cues in 90% of trials so that the patient will minimize the signs/symptoms of dysphagia. - see above 03/14/2020 Patient will tolerate Mildly Thick Liquids IDDSI Level 2 (Cross Anchor Thick) consistency while utilizing compensatory/swallowing strategies given maximal cues in 90% of trials so that the patient will minimize the signs/symptoms of dysphagia. - see above 03/14/2020 Patient, Caregiver will demonstrate adequate return of knowledge of all compensatory strategies/instruction to effectively assist the patient in immediate safety with oral intake and swallowing. [throat-clear, reswallow; small bites/sips; slow rate; no straws] - see above 03/14/2020 Patient will participate with swallow re-assessment to determine if food and drink texture can be safely upgraded. ? Therapeutic Tasks: Lingual/Pharyngeal/Laryngea l strengthening tasks to improve swallowing function??- see above 03/14/2020 ? COGNITION: ?Patient will demonstrate knowledge of taught compensatory strategies for functional cognitive-linguistic skills Cognitive Goals: Patient will improve visual?left?scanning given maximal?cues to 25% accuracy so that the patient may demonstrate general awareness of surroundings for personal safety.??- see above 03/14/2020 ? SPEECH / LANGUAGE: ?Patient will demonstrate knowledge of taught compensatory strategies for functional communication Speech Goals: Patient will improve speech intelligibility at the?word?level to 60% intelligibility given?maximal?cues so that the patient can functionally communicate with caregivers. - see above 03/14/2020 Patient?will demonstrate adequate return of knowledge of all compensatory strategies/instruction to effectively assist the patient in immediate speech production skills.??- see above?03/12/2020? Progress Toward Goals: Progressing as expected Speech Rehab Potential: Good Patient will be discontinued from speech therapy when no further skilled needs are identified in this setting. PLAN: Treatment Frequency (times per week): 3 Current admission Treatment Interventions: Dysphagia Management;Dysarthria Management;Cognitive-Lingui stic Management Plan for next visit: Swallowing Strategies, Dysphagia Management, Dietary Consistencies, Motor Speech Skills(Left sided awareness) Plan of Care Developed with: Patient Results and Recommendations Discussed With: Patient;Nurse TREATMENT INTERVENTIONS: Therapy Diagnosis: Other speech and language deficits following unspecified cerebrovascular disease;Dysarthria following cerebral infarction;Dysphagia following cerebral infarction Interventions Provided: Dysphagia Therapy (49566);Speech Therapy ([id number]) $ Dysphagia Therapy (62470) Billed Units: 1 unit $ Speech Therapy ([id number]) Billed Units: 1 unit Training and education provided in: Swallowing Strategies, Dysphagia Management, Motor Speech Skills(Left sided awareness) The following therapeutic skills were used:: Tactile cuing, Repetitive task learning, Verbal cuing, Interpretation and instruction of instrumental assessment Total Treatment Time (minutes): 25 Home Environment Prior Functional Level: Within Functional Limits Patient Lives With: Self/Alone Assistance Available: multimedia services coordinator Prior Swallowing Function/Diet Textures: Regular Consistency;Thin Liquids IDDSI Level 0 Please see discipline specific clinical documentation flowsheet for complete details for this therapy evaluation/treatment. SIGNATURE: Osmar Calloway CCC-FLOW MANAGER PATIENT NAME: Lisa Shirley DATE: March 14, 2020 TIME: 3:34 PM [facility] THERAPY NT HNO ID: [id number] Author: Silvia Teran/Darion López Service: Occupational Therapy Author Type: Occupational Therapist Type: Therapy (PT/OT/Speech/Resp) Filed: 03/14/2020 2:15 PM Note Text: Occupational Therapy Treatment SERVICE DATE: 03/14/2020 SERVICE TIME: 1307 to 1331 ROOM: [place] [address] Recommended Discharge Disposition: Acute Rehab Recommended Discharge Disposition Comments: Acute rehab to increase strength, activity tolerance, visual deficits, and independence with ADLs and functional mobility to return to independent baseline Justification For Post Acute Needs: Motivated;Willing to participate;Anticipate patient will tolerate 3 hours of daily therapy at the time of admission to post-acute setting OT 6 Clicks Score: 14 Patient with slow gains in ability to self feed, participate in upper body grooming/bathing and dressing tasks. Diet advanced to puree/thick allowing to progress feeding. Slightly improved sitting tolerance, however still unable to advance to out of bed activity due to limited activity tolerance/medical acuity. Requires encouragement and cues for all activities to increase participation, independence. Anticipate further gains toward prior level of independence with continued therapy at hospital level, with acute rehab recommended at discharge to maximize independence and allow safe return home with assist as needed. Precautions/Activity Restrictions: Fall Risk;Lines/Tubes/Drains;Ramon ght Bearing Restrictions;Bed/Chair Alarm Precaution/Activity Restriction Comments: Covid + Isolation Type: Contact/Droplet(eyewear) Extremity With Weight Bearing Restricted: Left Lower Extremity Left Lower Extremity Weight Bearing Status: NWB Current Hospital Course: Found down at home, 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 and left tri-malleolar fracture, and now COVID positive Reason for Hospital Admission: Stroke Relevant Past Medical History: CAD, DM, CKD stage 3, chronic LBP, major depressive disorder Response to Therapy Interventions: Requires additional time to complete activities, Requires encouragement to complete activities, Slow progression with functional activities/skills, Low activity tolerance Continue skilled needs due to: Functional impairment, Safety concerns, Continued monitoring of vital signs during mobility required, Coping deficits Occupational Therapy Problem List: Functional Mobility Impairment;Decreased Strength;Impaired Visual Motor Skills;Sensory Deficit;Decreased Range Of Motion;Decreased Activity Tolerance;Impaired Self Care;Safety Deficits;Pain Cognition/Communication Deficits Communication Deficits: Expressive Deficits(improving slowly; able to make needs known w/ effort) Orientation Deficits: (Mildly impaired to date, situation) Responsiveness: Alert Follows Commands: 1-step Commands, Cueing Needed Cueing to Follow Commands: Moderate(or min cuing/max encouragement) Attention Deficits: Divided(limited focus; fatigues and disengages) Sequencing Deficit: Minimal impairment Judgement Deficit: Moderate impairment Insight to Deficits: Moderate impairment Problem Solving Deficit: Moderate impairment Motor Planning Deficit: Minimal impairment Safety Awareness Deficit: Moderate impairment Treatment Interventions: Self Care / Home Management;Functional Mobility Training;Strengthening;Neur omuscular Re-education;Education;Ener gy Conservation Training Plan for next visit: Bathing training, Bed mobility, Chair/commode transfer training, Dressing training, Coping, Energy conservation, Fall prevention, Feeding training, Grooming training, Sitting balance, Sit to stand transfers(sit<>stand if able to maintain NWB) Home Environment Patient Lives With: Self/Alone Assistance Available: None Entry To Home: Stairs;With Rail Number Of Stairs Into Home: 4 Number Of Stairs To Bed/Bath: 0 Tub/Shower Type: Walk in Laundry: Minimally completes Equipment Owned: Grab Bars-Shower Prior Functional Level: (driving, activity limited by LBP) Prior Functional Level Comments: 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 Reports, I've got to lay back down after sitting several minutes edge of bed. "Oh, those tangles hurt" when combing hair CURRENT FUNCTIONAL STATUS: Most recent performance Current Activities of Daily Living Assist Level Additional Information Feeding Minimal Assistance;Additional Information Now on puree/thick liquid diet. Provided positioning in sitting at edge of bed, with set up of meal on bedside table. Minimal assist to order picker/assembler spoon/cup and stabilize plate/bowl to self feed. Encouragement to increase intake, but reports food is too salty or too cold (juice). Education for importance to increase intake, increase indep in ADL tasks. Grooming Minimal Assistance;Additional Information set up provided for hair care seated at edge of bed. Cues to initiate, follow through fully to complete task. Fatigues after a few minutes, needing frequent rests to continue tasks. Bathing Upper Body Moderate Assistance;Additional Information with set up, max encouragement, cuing. Bathing Lower Body Maximal Assistance Dressing Upper Body Moderate Assistance;Additional Information Provided max cuing, encouragement for use of bilateral UE, attention to task to place arms in sleeves, pull up gown to shoulders. Assist to tie. Dressing Lower Body Maximal Assistance Toileting Maximal Assistance Functional Mobility Assist Level Additional Information Rolling Moderate Assistance;Additional Information max cues to bend right knee, roll to side and reach for railing with RUE. Cues to maintain hold, encouragement to increase effort/attempts to do for herself Supine to Sit Moderate Assistance;Additional Information Moderate assist of one. Education provided for rolling to side, pushing up from sidelying to sit and scooting fully to edge of bed. Moderate physical assist provided to achieve midline, static sitting balance. Sit to Supine Moderate Assistance x1; Mod/max assist and cues to use RUE/RLE to assist to scoot fully up in bed for poistioning. Scooting Moderate Assistance Sit to Stand Additional Information Stand to Sit Bed to Chair Toilet/Commode Functional Mobility Blank murcia indicate activity not attempted Range of Motion: ROM Limitation Comments ROM Limitation Comments: RUE grossly WFL with encouragement to move through full ROM. LUE shoulder flexion 0-100 AROM, WFL AAROM. "I"m just so tired" Strength: Upper Extremity Comments Right Upper Extremity Strength Comments: 3/5 to 3+/5 proximal; 4-/5 distally Left Upper Extremity Strength Comments: 3-/5 proximally; 3-/5 to 3+/5 distally Tone Abnormalities: (mildly hypotonic left shoulder) Coordination Deficits: In hand manipulation;Rapid alternating movements;Finger to nose Finger to Nose Impairment: Left Rapid Alternating Movements Impairment: Left Hand Manipulation Impairment: Left NEEDS REHAB To maximize ROM/strength and coordination for functional use of UEs in activities of daily living/mobility. Balance: Static Sitting;Dynamic Sitting Static Sitting Balance: Fair(fair+) Patient able to maintain balance with handhold support, may require occasional minimal assistance(fair+) Dynamic Sitting Balance: Fair Patient accepts minimal challenge, able to maintain balance while turning head/trunk Activity Tolerance: Sitting Activity Sitting Activity: feeding /grooming tasks seated EOB Sitting Activity Tolerance (in minutes): 9 Learning/Educational Needs: Functional Activities/Mobility;Safety; Self Care Goals for Plan of Care: Patient /Caregiver Goals: Go To Rehab Able to perform HEP with: Verbal Cues Only(UE strengthening ) Grooming with: Minimal Assistance Upper Body Bathing with: Minimal Assistance Upper Body Dressing with: Minimal Assistance Lower Body Bathing with: Moderate Assistance Lower Body Dressing with: Moderate Assistance Chair Transfer with: Moderate Assistance Toilet Transfer with: Moderate Assistance(To BSC ) Tolerate (minutes of functional activity): 10 Functional Activity with: Moderate Assistance Additional Goal 1: Pt will demo increased L sided awareness by attending to objects placed on L side with min verbal cues Additional Goal 2: Pt will demo increased actvity tolerance by completing ADL in stranding for 1 minute Additional Goal 3: Pt will demo increased cognition by scoring a 26/30 on the MoCA independently Demonstrate Competence With Education with: Verbal Cues Only Progress Toward Goals: Progressing as expected Rehab Potential: Good Patient will be discontinued from Occupational Therapy when no further skilled needs are identified in this setting. PLAN: Treatment Frequency (times per week): 5(1-5) Current admission Plan of Care developed with: Patient TREATMENT INTERVENTIONS: Therapy Diagnosis: Reduced mobility-other;Decreased activities of daily living (ADL);Muscle Weakness (generalized) Interventions Provided: Therapeutic Exercise (73792);Self Fpc Management (37978) Therapeutic Exercise (83092) Treatment Minutes: 10 $ Therapeutic Exercise (96201) Billed Units: 1 unit Provided BUE AROM exercises to increase AROM/strength/activity tolerance for ADL and functional mobility for activities of daily living. Cues to initiate/follow through to complete exercises in bed with HOB fully elevated. Completed 1 set of 10 each for shoulder flexion/extension, horizontal ab/adduction, elbow flexion/extension, forearm pronation/supination, wrist flexion/extension, and gross grasp/release. Able to perform AROM right upper extremity with max cuing, AAROM left shoulder and AROM distal left upper extremity. Needs prolonged rests between each exercise and encouragement to continue to follow through. Self Fpc Management (62988) Treatment Minutes: 14 $ Self Fpc Management (92225) Billed Units: 1 unit Provided activities of daily living training seated at edge of bed, with status as noted in table above. Training AND education provided in: Bed mobility, Grooming tasks, Discharge planning, Positioning, Role of Occupational Therapy, Sitting balance to improve independence with ADLs/self-care The following therapeutic skills were used: Cues for sequencing/proper technique for activity, Assessment of tolerance including vitals response to activity, Activity dosing, Cuing verbal, Cuing tactile, Physical assist, Movement facilitation, Therapeutic use of self, Task analysis learning Total Timed Code Treatment Minutes: 24 Total Treatment Time (minutes): 24 Please see discipline specific clinical documentation flowsheet for complete details for this therapy evaluation/treatment. SIGNATURE: Silvia López OTR/Blue PATIENT NAME: Lisa Shirley DATE: March 14, 2020 TIME: 2:09 PM [facility] 03-13-2020 [facility] HNO ID: [id number] Author: Jade Bansal (Rt) Service: Radiology Author Type: Motor And Generator Brush Cutter Type: Allied Health Filed: 03/13/2020 11:51 AM Note Text: Radiology Service Progress Note PATIENT NAME: Lisa Shirley DATE OF SERVICE: March 13, 2020 TIME: 11:00 AM PATIENT IDENTITY VERIFICATION COMPLETED USING TWO (2) IDENTIFIERS: Name and Date of confirmed by patient verbally and Name and Date of confirmed by identification band. FALL SCREENING: Has the patient had 2 falls in the last year or 1 fall with injury or currently using an Ambulatory Assistive Device (Walker, Cane, Wheelchair, Crutches, etc.)? Inpatient: Screened on floor PATIENT GENDER DATA: Female. status: : No status: NO. PATIENT RELEVANT IMPLANT DATA REVIEWED: Not Applicable RADIOLOGY DEPARTMENT: General X-ray: Exam(s) Completed: GI/ Procedure(s): Modified barium swallow with barium contrast PERIPHERAL IV DATA: Not applicable SIGNED BY: RT Rolf March 13, 2020 11:50 AM [facility] HNO ID: [id number] Author: Chalino Jean-BaptisteRtJade Caceres Service: Radiology Author Type: Motor And Generator Brush Cutter Type: Allied Health Filed: 03/13/2020 10:45 AM Note Text: Radiology Service Progress Note DATE OF SERVICE: March 13, 2020 TIME: 10:45 AM PATIENT IDENTITY VERIFICATION COMPLETED USING TWO (2) STANDARD IDENTIFIERS: Name and Date of confirmed by patient verbally and Name and Date of confirmed by identification band. FALL SCREENING: Has the patient had 2 falls in the last year or 1 fall with injury or currently using an Ambulatory Assistive Device (Walker, Cane, Wheelchair, Crutches, etc.)? Inpatient: Screened on floor PATIENT GENDER DATA: Female. status: : No status: NO. PATIENT RELEVANT IMPLANT DATA REVIEWED: Not Applicable ALLERGIES: Reviewed and unchanged CONTRAST ALLERGY: NO. EXAM: CT -CONTRAST INDUCED NEPHROPATHY RISK FACTORS: Patient age > 60 years CREATININE: Creatinine Date Value Ref Range Status 03/12/2020 0.99 (H) 0.58 - 0.96 mg/dL Final 03/10/2020 1.23 (H) 0.58 - 0.96 mg/dL Final 03/09/2020 1.10 (H) 0.58 - 0.96 mg/dL Final 11/07/2019 1.39 (H) 0.58 - 0.96 mg/dL Final 03/14/2019 1.31 (H) 0.51 - 0.95 mg/dL Final 09/03/2018 1.24 (H) 0.51 - 0.95 mg/dL Final eGFR-All Other Races Date Value Ref Range Status 03/12/2020 55 Final Comment: eGFR (Estimated GFR) Units of measure: mL/min/1.73 meters squared eGFR is derived from the reexpressed MDRD Study equation using the following parameters: serum creatinine, age, gender and race. The creatinine assay has been calibrated to be traceable to IDMS. An eGFR <60 mL/min/1.73m2 for >3 months is consistent with chronic kidney disease. Refer to KDOQI guidelines for clinical interpretation. In patients with unstable renal function, e.g. those with acute kidney injury, the eGFR may not accurately reflect actual GFR. 09/07/2017 37 . Final Comment: eGFR (Estimated GFR) Units of measure: mL/min/1.73 meters squared eGFR is derived from the reexpressed MDRD Study equation using the following parameters: serum creatinine, age, gender and race. The creatinine assay has been calibrated to be traceable to IDMS. An eGFR <60 mL/min/1.73m2 for >3 months is consistent with chronic kidney disease. Refer to KDOQI guidelines for clinical interpretation. In patients with unstable renal function, e.g. those with acute kidney injury, the eGFR may not accurately reflect actual GFR. eGFR- Date Value Ref Range Status 03/12/2020 >60 Final 09/07/2017 44 Final P.O.C.T. RESULTS: POC done: Yes, See Lab Tab March 13, 2020 TREATMENT: No Hydration needed. PERIPHERAL IV DATA: Inpatient - refer to LDA documentation RADIOLOGY DEPARTMENT: CT; Exam(s) Completed: CTA Brain and CTA Neck SIGNATURE: RT Darrick PATIENT NAME: Lisa Shirley DATE: March 13, 2020 TIME: 10:45 AM [facility] CASE MANAGEMon 03-13-2020 CASE MANAGEM HNO ID: [id number] Author: Paulette Cruz (Sw) Service: ? Author Type: Hospital Corpsman Type: Care Mgt Progress Note Filed: 03/13/2020 3:55 PM Note Text: CARE MANAGEMENT PROGRESS NOTE SERVICE DATE: 03/13/2020 SERVICE TIME: 3:51 PM LOS: 5 days Needs Prior to Discharge: To Be Determined Called pt's room and spoke with RN who reports pt is in soft restraints. RN assisted pt with phone. [facility] unable to accepted due to no beds. Attempted to discuss HHC and pt responded her insurance requires her to have therapy at a free-standing office and she does not want any therapy from [facility]. Reviewed options for HHC and pt hesitant but agreeable for JESUS to send referrals. Referrals sent to [facility], [facility], [facility], and [facility]. SIGNATURE: [facility] Alvarez PATIENT NAME: Lisa Shirley DATE: March 13, 2020 TIME: 3:51 PM PAGER/CONTACT #: [phone] [facility] CONSULT PROGon 03-13-2020 CONSULT PROG HNO ID: [id number] Author: Danuta Pulido (Pa) Service: Neurology ICU Author Type: Physician Carbon Paper Coating Machine Setter Type: Consult Progress Note Filed: 03/13/2020 6:09 PM Note Text: Neuro consult note: Carotid US cancelled and CTA head and neck ordered instead: No stenosis or dissection in the cervical vertebral and carotid arteries. Short segment occlusion in one of the right M3 branches in the sylvian fissure. ?Reconstitution of flow in the cortical branches. Other mild to moderate stenosis at described. ?No aneurysm. LD-274 D-dimer-2,680 Will follow DANUTA PULIDO PA-C March 13, 2020 6:09 PM 1763 [facility] CTA HEAD W IVCONon 0 CTA HEAD W IVCON Final Report DATE OF EXAM: Mar 13 2020 10:43AM [facility] 0022 - CTA HEAD W IVCON / PROCEDURE REASON: Stroke, follow up Physician Interpretation EXAMINATION: CTA HEAD W IVCON, CTA NECK W IVCON CLINICAL HISTORY: Stroke, follow up TECHNIQUE: Spiral high resolution axial images were obtained through the head, neck and superior mediastinum following bolus administration of intravenous contrast for CT angiography. 3D maximum intensity projection images were created, reviewed and archived . MQ: CTAHN_4 Contrast: 100 mL Omnipaque [address] Radiation dose: Integrated Dose-Length Product (DLP) for this visit = [address] Dose Reduction Employed: Automated exposure control(AEC) and iterative recon COMPARISON: CT brain 03/10/2020 RESULT: BRAIN: Again noted is acute to subacute right MCA territory infarct ASPECT Score = 10 Hemorrhage: No evidence of acute intracranial hemorrhage. ECASS hemorrhagic transformation score: Not Applicable Spot Sign Presence: Not Applicable Spot Sign Number: Not Applicable NECK: Lead Mason Tender (topogram) images: No additional findings. Soft tissues: The soft tissue planes are maintained throughout. No evidence of a soft tissue mass in the neck or superior mediastinum. No significant lymphadenopathy is seen. Spine: Straightening of the cervical lordosis. Mild degenerative changes are present. Lung apices: The visualized lung apices are clear. CT ARTERIOGRAM: Extracranial Circulation: Aortic Arch: There is a normal branching pattern from the aortic arch.. There is no significant stenosis in the proximal brachiocephalic vessels. Carotid Stenosis: Right Common: No significant stenosis. Right Internal Carotid Plaque: Mild plaque formation. Right Internal Carotid Stenosis (% by NASCET Criteria): 0% Left Common: No significant stenosis. Left Internal Carotid Plaque: No significant plaque formation. Left Internal Carotid Stenosis (% by NASCET Criteria): 0% Cervical Vertebral Arteries: Patency: Bilateral Dominance: Left Intracranial Circulation: Diffuse arterial luminal irregularity likely represents atherosclerosis. Anterior Circulation: There is atherosclerosis of the intracranial ICAs with segmental moderate stenosis in the right supraclinoid ICA.. Mild stenosis in the mid left M1 segment. Mild stenosis in the distal right M1 segment. There is occlusion at one of the M3 segment in the sylvian fissure (axial source image, 131) with reconstitution of flow in the more distal artery.. No aneurysm. Vertebrobasilar Circulation: The intradural vertebral arteries are patent. The basilar artery is patent. roofer are patent. SCAs are patent. Focal moderate stenosis in the right P3 segment. No aneurysm. The major dural sinuses and draining veins are grossly patent. IMPRESSION: No stenosis or dissection in the cervical vertebral and carotid arteries. Short segment occlusion in one of the right M3 branches in the sylvian fissure. Reconstitution of flow in the cortical branches. Other mild to moderate stenosis at described. No aneurysm. Smalltalk Developer: PSCB Transcribe Date/Time: Mar 13 2020 11:24A Dictated by : SARAH LAWSON MD This examination was interpreted and the report reviewed and electronically signed by: SARAH LAWSON MD on Mar 13 2020 11:53AM EST [facility] CTA NECK W IVCONon 0 CTA NECK W IVCON Final Report DATE OF EXAM: Mar 13 2020 10:43AM [facility] 0024 - CTA NECK W IVCON / PROCEDURE REASON: Stroke, follow up Physician Interpretation EXAMINATION: CTA HEAD W IVCON, CTA NECK W IVCON CLINICAL HISTORY: Stroke, follow up TECHNIQUE: Spiral high resolution axial images were obtained through the head, neck and superior mediastinum following bolus administration of intravenous contrast for CT angiography. 3D maximum intensity projection images were created, reviewed and archived . MQ: CTAHN_4 Contrast: 100 mL Omnipaque [address] Radiation dose: Integrated Dose-Length Product (DLP) for this visit = [address] Dose Reduction Employed: Automated exposure control(AEC) and iterative recon COMPARISON: CT brain 03/10/2020 RESULT: BRAIN: Again noted is acute to subacute right MCA territory infarct ASPECT Score = 10 Hemorrhage: No evidence of acute intracranial hemorrhage. ECASS hemorrhagic transformation score: Not Applicable Spot Sign Presence: Not Applicable Spot Sign Number: Not Applicable NECK: Lead Mason Tender (topogram) images: No additional findings. Soft tissues: The soft tissue planes are maintained throughout. No evidence of a soft tissue mass in the neck or superior mediastinum. No significant lymphadenopathy is seen. Spine: Straightening of the cervical lordosis. Mild degenerative changes are present. Lung apices: The visualized lung apices are clear. CT ARTERIOGRAM: Extracranial Circulation: Aortic Arch: There is a normal branching pattern from the aortic arch.. There is no significant stenosis in the proximal brachiocephalic vessels. Carotid Stenosis: Right Common: No significant stenosis. Right Internal Carotid Plaque: Mild plaque formation. Right Internal Carotid Stenosis (% by NASCET Criteria): 0% Left Common: No significant stenosis. Left Internal Carotid Plaque: No significant plaque formation. Left Internal Carotid Stenosis (% by NASCET Criteria): 0% Cervical Vertebral Arteries: Patency: Bilateral Dominance: Left Intracranial Circulation: Diffuse arterial luminal irregularity likely represents atherosclerosis. Anterior Circulation: There is atherosclerosis of the intracranial ICAs with segmental moderate stenosis in the right supraclinoid ICA.. Mild stenosis in the mid left M1 segment. Mild stenosis in the distal right M1 segment. There is occlusion at one of the M3 segment in the sylvian fissure (axial source image, 131) with reconstitution of flow in the more distal artery.. No aneurysm. Vertebrobasilar Circulation: The intradural vertebral arteries are patent. The basilar artery is patent. roofer are patent. SCAs are patent. Focal moderate stenosis in the right P3 segment. No aneurysm. The major dural sinuses and draining veins are grossly patent. IMPRESSION: No stenosis or dissection in the cervical vertebral and carotid arteries. Short segment occlusion in one of the right M3 branches in the sylvian fissure. Reconstitution of flow in the cortical branches. Other mild to moderate stenosis at described. No aneurysm. Smalltalk Developer: PSCB Transcribe Date/Time: Mar 13 2020 11:24A Dictated by : SARAH LAWSON MD This examination was interpreted and the report reviewed and electronically signed by: SARAH LAWSON MD on Mar 13 2020 11:53AM EST Normal [facility] PROGRESSon 03-13-2020 PROGRESS HNO ID: [id number] Author: Maite Regalado Service: Hospital Medicine Author Type: Physician Type: Progress Notes Filed: 03/13/2020 9:30 PM Note Text: DEPARTMENT OF HOSPITAL MEDICINE SOUND PHYSICIANS PROGRESS NOTE- HOSPITAL DAY 5 SERVICE DATE: 03/13/2020 9:04 PM Hospital Medicine/Primary Attending: aMite Regalado MD CHIEF COMPLAINT: Acute right MCA stroke (HCC) OVERNIGHT EVENTS: None INTERVAL HISTORY OF PRESENT ILLNESS: Speech cleared for food intake. Ortho plans surgery for the ankle 03/19, patient denies new concerns, pain is moderately controlled. BP still running higher at times. Transition of care: PER ICU 03/09: Presented from OSH with concern for acute R MCA stroke. Found down at home, elevated CK, patient was in DKA, No LVO, patient admitted to [facility] NICU. Patient also had left trimal fracture, was reduced by ortho team, splinted. Today, patient had speech consult, required corpak placement, transitioned to subcutaneous insulin from insulin drop, DC vanc and zosyn ? Patient is a 74 year old female with past medical history significant for?DM type II, HTN, CKD stage 3, HLD, SEE, major depressive disorder, GERD, Insomnia, and IBS who presents as transfer from [facility] with findings of acute R MCA stroke. Patient was reportedly found down at home and had not been seen since Thursday. Police sent to home for welfare check. Per son, there was an email sent yesterday to him from her so unsure if LKW was 1 or 2 days ago. Patient found to have left sided deficits, dysarthria and left ankle bruising/swelling. Patient reportedly has hx of stroke but no prior deficits. In ED at [facility], stroke eval performed with CT findings of R caudate, insula and frontal evolving infarcts. ASPECTS score 5. CTA nondiagnostic as contrast infiltrated in arm and IV access lost during scan. Central line placed at [facility] for access. Patient out of window for tPA and also no role for endovascular therapy given 24-48hours out and evidence of evolving infarct on CT. Patient also found to be in DKA with glucose >500, ketones and anion gap of 21. Given SQ insulin at OSH. CK elevated >1,000. Given IVF. Patient hypertensive, tachycardic and febrile. COVID negative. Left ankle fracture by XR. Patient subsequently transferred here to [facility] NSICU for further stroke workup and management.? ? Patients AG closed yesterday, was transitioned to subcutaneous insuli therapy. Patient found to also be asymptomatic and covid+, remained stable hemodynamically." -- Since transfer from ICU, patient has been cleared for oral intake, PICC placed for IV access, and Corpak was removed for malpositioning. BP control has been somewhat difficult. Ortho plans surgery for ankle 03/19, likely to discharge to SNF or IRF temporarily until surgery. Still requiring restraints due to trying to remove PICC, but will need to be restraint free before discharge to rehab. Patient Vitals for the past 24 hrs: BP Temp Temp src Pulse Resp SpO2 Weight 03/13/20 2038 181/87 36.9 ?C (98.4 ?F) Oral 71 18 97 % ? 03/13/20 1700 159/88 ? ? 78 ? ? ? 03/13/20 1525 194/91 37.2 ?C (99 ?F) Axillary 69 18 95 % ? 03/13/20 1127 181/83 ? 03/13/20 0900 181/85 36.8 ?C (98.2 ?F) Oral 76 16 96 % ? 03/13/20 0400 161/94 36.7 ?C (98.1 ?F) Axillary 74 18 97 % 99.7 kg (219 lb 11.2 oz) 03/13/20 0129 171/93 ? 03/12/20 2358 192/94 36.7 ?C (98.1 ?F) Axillary 69 18 97 % ? Temp (24hrs), Av.9 ?C (98.4 ?F), Min:36.7 ?C (98.1 ?F), Max:37.2 ?C (99 ?F) Recent Labs 03/13/20 2040 03/13/20 1750 03/13/20 1124 03/13/20 0543 03/12/20 2354 03/12/20 2052 03/12/20 1841 03/12/20 1232 03/12/20 0558 03/11/20 2336 03/11/20 1738 03/11/20 1110 03/11/20 0603 03/10/20 2354 PCGLUCOSE 147* 154* 174* 167* 266* 263* 252* 310* 323* 326* 369* 221* 264* 284* REVIEW OF SYSTEMS GENERAL:?Positive for?malaise?? HEENT:?negative NECK:?No pain at former central line site right neck RESPIRATORY:?Positive for?non-productive cough CARDIOVASCULAR:?Negative for chest pain, leg swelling and palpitations GI:?Negative for abdominal discomfort, blood in stools or black stools :?voiding since cortes removal MUSCULOSKELETAL:?See HPI SKIN:?Negative NEURO:??SEE HPI ? PHYSICAL EXAM: GENERAL:?Alert, Mild Distress, Cooperative SKIN:?Full exam not able to be completed at this time.??Right neck site without erythema, bandage not disturbed NECK:?No jugulovenous distention, No carotid bruits, Carotid pulse normal contour, Supple LUNGS:?Positive findings:?diminished breath sounds?bibasilar CARDIAC:?Normal S1 and S2; no rubs, murmurs, or gallops ABDOMEN:??Abdomen soft, non-tender, BS normal, No masses or organomegaly EXTREMITIES:?left lower leg in splint and wrapped, not disturbed. ?Obvious deformity of left ankle inversion NEURO:??Dysarthria, left leg/arm hemiparesis ? ? ASSESSMENT AND PLAN ? Principal Problem: ??Acute right MCA stroke (HCC) POA: Yes ?Assessment AND?Plan: No tPA or NIL indicated, now stable out of ICU. ?PT eval ongoing, rehab will be difficult with fracture and no operative plans for now. PT recommended Acute Rehab, but suspect patient will be more appropriate for SNF, possibly just for a few days until ankle ORIF. Now that patient has been cleared for food intake, monitor condition and consider discharge options if stable. ? ? Active Problems: ??Respiratory tract infection due to COVID-19 virus POA: Yes ?Assessment AND?Plan: Ongoing decadron and remdesivir, currently stable on room air. ?Elevated troponin POA: Yes ?Assessment AND?Plan: Mild, no ACS or WI suspected ?Closed left ankle fracture POA: Yes ?Assessment AND?Plan: plan ORIF 03/19 per orthopedics ?Acute kidney injury superimposed on chronic kidney disease (HCC) POA: Yes ?Assessment AND?Plan: Resolved with IVF ?Essential hypertension POA: Yes ?Assessment AND?Plan: Further titrate Coreg, no need for permissive HTN now ?Type 2 diabetes mellitus with diabetic neuropathy, without long-term current use of insulin (HCC) POA: Yes ?Assessment AND?Plan: Monitor closely, SSI, management per endocrine ?Dysphagia POA: Yes ?Assessment AND?Plan: from CVA, cleared for intake after MBSS. ?Chronic kidney disease, stage 3, mod decreased GFR POA: Yes ?Assessment AND?Plan: not at baseline ? ? Resolved Problems: ??Rhabdomyolysis POA: Yes ? ??Diabetic ketoacidosis without coma associated with type 2 diabetes mellitus (HCC) POA: Yes ? ? ? CODE STATUS:?Full PLANNED DISPOSITION:?Extended Care Facility ? Total time?30?minutes during this encounter, including chart review, discussion with nursing staff and/or other providers, documentation, order filler, and [id number] time with patient.? ? Diagnostic tests reviewed for today's visit:?? Most recent labs and imaging results. ? TELEMETRY: NSR LABS CBC: No results for input(s): WBC, HB, PLT in the last 48 hours. CMP: Recent Labs 03/12/20 1612 NA 142 K 3.8 CHLOR 107* CO2 25 BUN 32* CREAT 0.99* GLUC 279* CA 7.9* AST 12* ALT 14 ALKPHOS 52 Plan of care discussed with: Provider, RN, Patient MEDICATIONS: Current Facility-Administered Medications Medication Dose Route Frequency - docusate 100 mg oral liquid (DIOCTO, COLACE) 100 mg ORAL/FEEDING TUBE BID - bisacodyl 10 mg suppository (DULCOLAX) 10 mg RECTAL DAILY PRN - ondansetron (PF) 4 mg injection (ZOFRAN) 4 mg INTRAVENOUS q 4 H PRN - heparin 5,000 Units injection 5,000 Units SUBCUTANEOUS q 8 H - acetaminophen 650 mg tab(s) (TYLENOL) 650 mg ORAL/FEEDING TUBE q 4 H PRN Or - acetaminophen 650 mg CUP (TYLENOL) 650 mg ORAL/FEEDING TUBE q 4 H PRN Or - acetaminophen 650 mg suppository (TYLENOL) 650 mg RECTAL q 4 H PRN - fentaNYL 50 mcg/mL 25 mcg injection (SUBLIMAZE) 25 mcg INTRAVENOUS q 2 H PRN - miconazole 2 % 1 application topical powder (LOTRIMIN AF, DESENEX) 1 application TOPICAL BID - atorvastatin 80 mg tab(s) (LIPITOR) 80 mg ORAL/FEEDING TUBE AT BEDTIME - insulin NPH human 12 Units injection pen (intermediate acting) (NovoLIN N, HumuLIN N) 12 Units SUBCUTANEOUS BID - dextrose 40 % 15 g 15 g ORAL PRN Or - glucagon 1 mg injection 1 mg INTRAMUSCULAR PRN Or - dextrose 50% in water 25 mL syringe 12.5 g INTRAVENOUS PRN - aspirin 81 mg chewable tab(s) 81 mg ORAL/FEEDING TUBE DAILY - remdesivir 100 mg in NaCl 0.9% 250 mL 100 mg INTRAVENOUS q 24 HR And - sodium chloride 0.9 % (flush) 30 mL (BD POSIFLUSH) 30 mL INTRAVENOUS q 24 HR - Dexamethasone sodium phosphate (PF) 6 mg injection (DECADRON) 6 mg INTRAVENOUS q 24 H - diltiazem 60 mg tab(s) (CARDIZEM) 60 mg ORAL/FEEDING TUBE q 6 H - hydrALAZINE 25 mg tab(s) (APRESOLINE) 25 mg ORAL/FEEDING TUBE q 6 H PRN - carvedilol 6.25 mg tab(s) (COREG) 6.25 mg ORAL/FEEDING TUBE q 12 HR - sodium chloride 0.9 % (flush) 10 mL (BD POSIFLUSH) 10 mL INTRAVENOUS q 12 H - sodium chloride 0.9 % (flush) 20 mL (BD POSIFLUSH) 20 mL INTRAVENOUS PRN - pill sheet rock hanger (patient-specific) 1 Each Miscell. (Med.Supl.;Non-Drugs) PRN - ondansetron 4 mg tab(s) (ZOFRAN) 4 mg ORAL/FEEDING TUBE q 6 H PRN - nystatin 5 mL oral liquid (MYCOSTATIN) 5 mL MUCOUS MEMBRANE QID - iv contrast (radiology procedure) INTRAVENOUS DIRECTED PRN - insulin regular human 5 Units injection (short acting) (NovoLIN R,HumuLIN R) 5 Units SUBCUTANEOUS w MEALS - insulin regular human 0-10 Units injection (short acting) (NovoLIN R,HumuLIN R) 0-10 Units SUBCUTANEOUS w MEALS AND HS Medications Discontinued During This Encounter Medication Reason - insulin regular human 100 Units in NaCl 0.9% 100 mL - ICU NOMOGRAM - insulin regular human iv bolus 2-10 Units - dextrose 50% in water 25-50 mL syringe - NaCl 0.45% iv infusion - dextrose 5% in NaCl 0.45% iv infusion - ALPRAZolam (XANAX) 0.5 mg tablet - piperacillin-tazobactam iv piggyback 3.375 g in dextrose (iso-osmotic) 50 mL (ZOSYN) - vancomycin iv piggyback 1.5 g in D5W 250 mL (VANCOCIN) - vancomycin dosing and monitoring per pharmacy - famotidine 20 mg injection (PEPCID) - dextrose 5% in NaCl 0.45% with 20 mEq/L KCl iv infusion - insulin regular human 100 Units in NaCl 0.9% 100 mL - ICU NOMOGRAM - dextrose 5% in NaCl 0.45% with 20 mEq/L KCl iv infusion - insulin regular human 100 Units in NaCl 0.9% 100 mL - ICU NOMOGRAM - dextrose 5% in NaCl 0.45% iv infusion - dextrose 40 % 15 g - glucagon 1 mg injection - dextrose 50% in water 25 mL syringe - aspirin 81 mg tab(s) - sodium chloride 0.9 % (flush) 3-5 mL (BD POSIFLUSH) - sodium chloride 0.9 % (flush) 10 mL (BD POSIFLUSH) - sodium chloride 0.9 % (flush) 20 mL (BD POSIFLUSH) - labetalol 10 mg injection syringe (NORMODYNE) - potassium chloride ER 20-40 mEq tab(s) (K-DUR, KLOR-CON) - potassium chloride iv piggyback 20 mEq/100 mL - magnesium sulfate in sterile water 2 g in sterile water 50 ml - sodium phosphate 45 mmol in NaCl 0.9% 250 mL - calcium gluconate 4 g in NaCl 0.9% 250 mL - perflutren lipid microspheres 1.1 mg/mL 1.3 mL injection (DEFINITY) - hydrALAZINE 10 mg tab(s) (APRESOLINE) - labetalol 5 mg injection (NORMODYNE) Erroneous entry - insulin regular human injection (short acting) (NovoLIN R,HumuLIN R) - insulin regular human 5 Units injection (short acting) (NovoLIN R,HumuLIN R) SIGNATURE: Maiet Regalado MD PATIENT NAME: Lisa Shirley DATE: March 13, 2020 TIME: 9:04 PM PAGER #: Primary Service NIGHT AND WEEKEND COVERAGE: After 7pm please page [phone] [facility] PROGRESS HNO ID: [id number] Author: Leland Herrera Service: Orthopaedic Surgery Author Type: Physician Type: Progress Notes Filed: 03/13/2020 5:02 PM Note Text: ORTHOPAEDIC SURGERY POSTOP DAILY PROGRESS NOTE Patient Name: Lisa Shirley Date of Evaluation: 03/13/2020 Admission Date: 03/08/2020 Time of Evaluation: 7:01 AM ORTHO STAFF: Agree with resident assessment and plan noted below. Reviewed surgical plan as outlined with OR/Anesthesia staff for 03/19/2020. Anticipate this will not occur if patient is discharged from facility while Covid positive; would have difficulty scheduling follow-up Covid test as she would likely remain positive within the time frame. Leland Herrera MD ASSESSMENT: 74 year old female with left trimalleolar fracture PLAN: - Medical management per primary - Pain control per primary - Ice/elevate LLE - NWB LLE - Splint in place, maintain,?keep dry, clean and intact - Appreciate medicine and infectious disease treatment - Definitive surgical plan on 03/19/2020 for ORIF of left trimal fx INTERVAL HPI: Patient monitored, no new events overnight. Virtual visit OBJECTIVE: BP 161/94 Pulse 74 Temp 36.7 ?C (98.1 ?F) (Axillary) Resp 18 Ht 167.6 cm (5' 6") Wt 99.7 kg (219 lb 11.2 oz) SpO2 97% BMI 35.46 kg/m? Intake/Output Summary (Last 24 hours) No intake/output data recorded. Exam: General: Virtual Visit Extremities: Virtual Visit Labs: BMP: Sodium 142 03/12/2020 Potassium 3.8 03/12/2020 Chloride 107 03/12/2020 CO2 25 03/12/2020 BUN 32 03/12/2020 Creatinine 0.99 03/12/2020 Glucose 279 03/12/2020 CBC: WBC 9.87 03/11/2020 Hemoglobin 12.2 03/11/2020 Hematocrit 35.8 03/11/2020 Platelet Count 244 03/11/2020 COAGS: APTT 23.7 03/08/2020 PT INR 1.1 03/12/2020 SED RATE/CRP: No results found for this basename: wsr:*,crp:* Imaging: No new images Akin Rogers MD Resident, Orthopaedic Surgery Pager #: [phone] 03/13/2020 7:01 AM Please page [phone] from 5p-6a and on weekends for any issues. [facility] THERAPY NTon 03-13-2020 THERAPY NT HNO ID: [id number] Author: Jamila (Pt) Yared Service: Physical Therapy Author Type: Physical Therapist Type: Therapy (PT/OT/Speech/Resp) Filed: 03/13/2020 3:54 PM Note Text: Physical Therapy Treatment SERVICE DATE: 03/13/2020 SERVICE TIME: 1518 to 1530 ROOM: [place] [address] Recommended Discharge Disposition: Acute Rehab Justification For Post Acute Needs: Anticipate patient will tolerate 3 hours of daily therapy at the time of admission to post-acute setting;Living the community premorbidly;Medically complex;Motivated;Willing to participate PT 6 Clicks Score: 8 Precautions/Activity Restrictions: Fall Risk;Lines/Tubes/Drains;Ramon ght Bearing Restrictions Precaution/Activity Restriction Comments: Covid + Isolation Type: Contact/Droplet(eyewear) Extremity With Weight Bearing Restricted: Left Lower Extremity Left Lower Extremity Weight Bearing Status: NWB Current Hospital Course: Found down at home, 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 and left tri-malleolar fracture, and now COVID positive Reason for Hospital Admission: Stroke Relevant Past Medical History: CAD, DM, CKD stage 3, chronic LBP, major depressive disorder Response to Therapy Interventions: Low activity tolerance Physical Therapy Problem List: Decreased Activity Tolerance;Decreased Range Of Motion;Decreased Strength;Functional Mobility Impairment;Balance Impaired Treatment Interventions: Education;Energy Conservation Training;Functional Mobility Training;Balance Training;Neuromuscular Re-education Home Environment Patient Lives With: Self/Alone Assistance Available: None Entry To Home: Stairs;With Rail Number Of Stairs Into Home: 4 Number Of Stairs To Bed/Bath: 0 Tub/Shower Type: Walk in Laundry: Minimally completes Equipment Owned: Longaccess-Shower Prior Functional Level: (driving, activity limited by LBP) Prior Functional Level Comments: 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 Current Functional Mobility Assist Level Additional Information Rolling Supine to Sit Moderate Assistance;Additional Information(x2) Sit to Supine Moderate Assistance;Additional Information(x2) Scooting Maximal Assistance Sit to Stand Stand to Sit Bed to Chair Toilet/Commode Gait Stairs Curb Step Car Transfer [facility]: 2: Bed activities / dependent transfer Learning/Educational Needs: Discharge Plan;Disease Process;Functional Activities/Mobility;Plan of Care;Respiratory Function;Stroke Education Goals for Plan of Care: Patient /Caregiver Goals: Go To Rehab Rolling with: Contact Guard Assistance Transfer supine to/from sit with: Contact Guard Assistance Transfer sit to/from stand with: Contact Guard Assistance Ambulate with: Minimal Assistance Distance: 5-10 feet NWB Left LE Device: Wheeled Walker Progress Toward Goals: Progressing slower than expected Due To: acuity Rehab Potential: Good PLAN: Treatment Frequency (times per week): 5(2-4) Current admission Plan of Care developed with: Patient TREATMENT INTERVENTIONS: Therapy Diagnosis: Reduced mobility-other;Muscle Weakness (generalized);Difficulty walking-musculoskeletal Interventions Provided: Therapeutic Exercise (66065) Therapeutic Exercise (51634) Treatment Minutes: 12 $ Therapeutic Exercise (35079) Billed Units: 1 unit Encouraged up to edge of bed with assist--pt resistant to this but agreeable to lower extremity A/AAROM exercises in supine Supine RLE--AROM AP, heel slide, hip abd/add and SLR x10 reps LLE--AAROM heel slide, hip abd/add and SLR x10 reps Training AND education provided in: Benefits of in-hospital mobility, Role of Physical Therapy, Exercise program instruction The following therapeutic skills were used: Cues for sequencing/proper technique for activity, Facilitation of joint range of motion Total Timed Code Treatment Minutes: 12 Total Treatment Time (minutes): 12 Please see discipline specific clinical documentation flowsheet for complete details for this therapy evaluation/treatment. SIGNATURE: Jamila Vail PT PATIENT NAME: Lisa Shirley DATE: March 13, 2020 TIME: 3:52 PM [facility] THERAPY NT HNO ID: [id number] Author: Osmar (Ccc-Traffic Reporter) ALEYDA Calloway/FLOW MANAGER Service: Speech/Swallow Author Type: Speech Language Pathologist Type: Therapy (PT/OT/Speech/Resp) Filed: 03/13/2020 12:14 PM Note Text: Speech Therapy MBSS Evaluation SERVICE DATE: 03/13/2020 SERVICE TIME: 1050 to 1120 ROOM: [place] [address] IMPRESSION: Patient demonstrates oropharyngeal dysphagia which is negatively impacting his/her ability to effectively maintain adequate nutrition and hydration and/or airway safety. Diet Recommendations: Dysphagia Level 1 (Pureed) Mildly Thick Liquids IDDSI Level 2 (Cross Anchor Thick) Medications crushed in puree (pudding/applesauce) Swallowing Precautions Recommendations: 1:1 Supervision Alert (patient should be fully alert for P.O. intake) Feed / Eat at a slow rate No straws Sit upright 90 degrees for all PO Small Bite/Sip Throat clear, reswallow Nursing Recommendations: See swallow guide posted in patients room;Reinforce use of swallowing strategies;Reinforce use of communication strategies Recommended Discharge Disposition: Acute Rehab Justification for Recommended Discharge Disposition: Patient can tolerate 3 hours of therapy per day;Willing to participate;Medically complex;Good sitting tolerance;Motivated Current Hospital Course: [facility]. CT chest There is a Corpak tube coursing below the diaphragm. CTA head completed today. Reason for Hospital Admission: Stroke Rehabilitation Precautions: Modified Diet;Aspiration Precautions;Dysphagia;Cogni tive Linguistics Deficits;Communication Deficits;Isolation;Visual Deficits;Diabetic Isolation Type: Contact/Droplet(eyewear) Reason for Speech Therapy Consult: Stroke: assess swallowing and speech/cognition Relevant Past Medical History: Anxiety, Depression, DM, Fatigue, HTN, Morbid obesity, Panic state as acute reaction to stress, sleep disorder, Stroke, DM Speech Therapy Problem List: Dysphagia;Cognitive-Linguis tic Impairment;Dysarthria Patient Report: Did I pass? Current Status Current Feeding Method: IV Current Diet Textures: NPO Instrumental Swallow Assessment Instrumental Swallow Assessment Type: Modified Barium Swallow Study Modified Barium Swallow Views: Lateral position MBS Consistencies Tested: Thin Barium Liquids, Mildly Thick Barium Liquids (Cross Anchor Thick), Puree With Barium Paste, Soft Solid With Barium Paste Oral Phase: Oral Phase Assessment Not Within Normal Limits: Lip Closure, Tongue Control During Bolus Hold, Bolus Preparation/Mastication, Initiation of Pharyngeal Swallow, Bolus Transport/Lingual Motion, Oral Residue Lip Closure: Escape from interlabial space or lateral juncture/no extension beyond nilson border Tongue Control During Bolus Hold: Escape to lateral buccal cavity and/or floor of mouth, Posterior escape of less than half of the bolus Bolus Preparation/Mastication: Slow prolonged mastication with complete re-collection necessary Bolus Transport/Lingual Motion: Slowed Tongue Motion for A-P movement of the bolus Oral Residue: Trace residue lining oral structures Initiation Of Pharyngeal Swallow: Bolus head at pit of pyriforms Pharyngeal Phase: Pharyngeal Phase Not Within Functional Limits: Soft Palate Elevation, Laryngeal Elevation, Anterior Hyoid Excursion, Epiglottic Movement, Laryngeal Vestibular Closure/Height of the Swallow, Pharyngeal Stripping Wave, Tongue Base Retraction, Pharyngoesophageal Segment Opening, Pharyngeal Residue, Esophageal Clearance in an Upright Position, Penetration, Aspiration Soft Palate Elevation: No bolus between soft palate/pharyngeal wall Laryngeal Elevation: Partial superior movement of thyroid cartilage and/or partial approximation of arytenoids to epiglottic petiole Anterior Hyoid Excursion: No anterior movement Epiglottic Movement: Complete inversion Laryngeal Vestibular Closure/Height of the Swallow: Incomplete - narrow column of air/contrast in laryngeal vestibule Pharyngeal Stripping Wave: Complete Pharyngoesophageal Segment Opening: Complete distension and complete duration/no obstruction of flow of bolus Tongue Base Retraction: No bolus between tongue base and posterior pharyngeal wall Pharyngeal Residue: Trace residue within or on the pharyngeal structures Esophageal Clearance In An Upright Position: Complete clearance Penetration: During the swallow Penetration With: Thin Liquids IDDSI Level 0, Mildly Thick Liquids IDDSI Level 2 (Cross Anchor Thick), Puree, Soft Solid Aspiration: During the swallow Aspiration With: Thin Liquids IDDSI Level 0, Mildly Thick Liquids IDDSI Level 2 (Cross Anchor Thick) Penetration/Aspiration Scale: 7-Material enters the airway, passes below the vocal folds, and is not ejected from the trachea despite effort Patient alert and able to participate in therapy Unable to self feed due to in restraints and left neglect Aspiration with mildly thick (nectar thick) liquids and thin liquids Aspiration eliminated with mildly thick (nectar thick) liquids with strategies: no straws, throat-clear/reswallow Penetration with all PO Penetration clears with cued throat-clear/reswallow Able to masticate soft solid but suspect fatigue with meals Recommend modified diet + safe swallow strategies Speech Therapy to follow for dysphagia management Functional Communication Measure (FCM) Current FCM Level: Swallowing Level;Motor Speech;Attention FCM Swallowing Level: 4 FCM Attention Level: 1 FCM Motor Speech Level: 3 Patient /Caregiver Goals: Eat/Drink Without Restrictions;Improve Cognition;Improve Communication Goals for Plan of Care: Goals: SWALLOWING: Patient / Caregiver will demonstrate knowledge of taught compensatory strategies and dietary consistency recommendations to optimize functional swallow function without overt clinical signs and symptoms of aspiration or dysphagia;COGNITION: Patient will demonstrate knowledge of taught compensatory strategies for functional cognitive-linguistic skills;SPEECH / LANGUAGE: Patient will demonstrate knowledge of taught compensatory strategies for functional communication Progress Toward Goals: Progressing as expected Speech Rehab Potential: Good Patient will be discontinued from speech therapy when no further skilled needs are identified in this setting. PLAN: Treatment Frequency (times per week): 3 Current admission Treatment Interventions: Dysphagia Management;Dysarthria Management;Cognitive-Lingui stic Management Plan for next visit: Swallowing Strategies, Dietary Consistencies, Dysphagia Management, Motor Speech Skills(Left sided awareness) Plan of Care Developed with: Patient Results and Recommendations Discussed With: Patient;Nurse;Physician TREATMENT INTERVENTIONS: Therapy Diagnosis: Other speech and language deficits following unspecified cerebrovascular disease;Dysarthria following cerebral infarction;Dysphagia following cerebral infarction Interventions Provided: Modified Barium Swallow Study (20788) $ Modified Barium Swallow Study (56938) Billed Units: 1 unit Total Treatment Time (minutes): 30 Home Environment Prior Functional Level: Within Functional Limits Patient Lives With: Self/Alone Assistance Available: multimedia services coordinator Prior Swallowing Function/Diet Textures: Regular Consistency;Thin Liquids IDDSI Level 0 Please see discipline specific clinical documentation flowsheet for complete details for this therapy evaluation/treatment. SIGNATURE: Osmar Calloway CCC-FLOW MANAGER PATIENT NAME: Lisa Shirley DATE: March 13, 2020 TIME: 12:09 PM [facility] XR MOD BARIUM SWALLOW W SPEGiulia Flores 03-13-2020 XR MOD BARIUM SWALLOW W SPEECH Final Report DATE OF EXAM: Mar 13 2020 11:28AM [id number] [id number] - XR MOD BARIUM SWALLOW W SPEECH / PROCEDURE REASON: Aspiration Physician Interpretation EXAM TITLE: MODIFIED BARIUM SWALLOW STUDY DATE: 03/13/2020 CLINICAL INDICATION/HISTORY: Dysphagia. TECHNIQUE: Video fluoroscopy was recorded over the cervical esophagus in the lateral projection. Barium preparations of varying consistency were administered by speech pathology. Radiologist was not present for the examination. FINDINGS: Abnormal modified barium swallow study . Please refer to speech therapist's note for details. Fluoroscopic Radiation Summary: Plane A, Air Kerma: 7.7 mGy Dose Area Product (DAP): 2194.4 mGycm Fluoro time: 2:36 min:sec IMPRESSION: Abnormal modified barium swallow study. Smalltalk Developer: ALDAIRB Transcribe Date/Time: Mar 13 2020 4:13P Dictated by : SARAH LAWSON MD This examination was interpreted and the report reviewed and electronically signed by: SARAH LAWSON MD on Mar 13 2020 4:13PM EST Normal [facility] ALLIED HEALTHon 03-12-2020 ALLIED HEALTH HNO ID: [id number] Author: Jade Farmer (Rt) Service: ? Author Type: Motor And Generator Brush Cutter Type: Allied Health Filed: 03/12/2020 3:39 PM Note Text: Radiology Service Progress Note PATIENT NAME: Lisa Shirley DATE OF SERVICE: March 12, 2020 TIME: 3:38 PM PATIENT IDENTITY VERIFICATION COMPLETED USING TWO (2) IDENTIFIERS: Name and Date of confirmed by identification band. FALL SCREENING: Has the patient had 2 falls in the last year or 1 fall with injury or currently using an Ambulatory Assistive Device (Walker, Cane, Wheelchair, Crutches, etc.)? Inpatient: Screened on floor PATIENT GENDER DATA: Female. status: : No status: NO. PATIENT RELEVANT IMPLANT DATA REVIEWED: Not Applicable RADIOLOGY DEPARTMENT: General X-ray: Exam(s) Completed: Chest X-Ray PERIPHERAL IV DATA: Not applicable SIGNED BY: RT Marleny March 12, 2020 3:38 PM [facility] CASE MANAGEMon 03-12-2020 CASE MANAGEM HNO ID: [id number] Author: Paulette Cruz (Sw) Service: ? Author Type: Hospital Corpsman Type: Care Mgt Progress Note Filed: 03/12/2020 1:50 PM Note Text: CARE MANAGEMENT PROGRESS NOTE SERVICE DATE: 03/12/2020 SERVICE TIME: 1:46 PM LOS: 4 days Needs Prior to Discharge: To Be Determined Attempted to call pt in room however no answer. Attempted number listed in chart as pt's mobile number however no answer. Will attempt again at a later time. SIGNATURE: JESUS Alvarez PATIENT NAME: Lisa Shirley DATE: March 12, 2020 TIME: 1:46 PM PAGER/CONTACT #: [phone] [facility] CASE MGT INIT [place] 2019 CASE MGT INIT [facility] HNO ID: [id number] Author: Paulette Cruz (Sw) Service: ? Author Type: Hospital Corpsman Type: Care Mgt Initial Assessment Filed: 03/12/2020 4:27 PM Note Text: CARE MANAGEMENT: ASSESSMENT AND DISCHARGE PLAN SERVICE DATE: March 12, 2020 SERVICE TIME: 3:59 PM PRIMARY CARE PHYSICIAN: Jaqueline Aragon DO ADMISSION STATUS: Inpatient Needs Prior to Discharge: To Be Determined MEDICAL: MEDICARE A AND B Patient/Ceramic Tile Installation Helper Stated Goals: To improve my functional status Health Insurance: Medicare;[place] Health Issues Impacting Discharge Plan: Newly diagnosed Newly Diagnosed: MCA Stroke Last Discharge Date: 03/08/20 Is this Within the Past 30 days? 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 : 1 - Never How confident are you filling out medical forms by yourself?: 1 - Extremely If Patient scores > 3 on either question, the following interventions were put into place:: Patient did not score > 3 on either question. Baseline Mental Status Prior to this Illness what was the patient's Baseline Mental Status?: Alert AND Oriented;History of Mental Illness Prior to this illness, has anyone described the patient having any of the following behaviors?: Not Applicable Relationship of the informant to the patient:: Self Name of Informant: : N/A Functional Status: Independent Does Patient Currently Receive Any Community Services or Home Care?: None Equipment Prior to Admission: Walker;Cane Has the Patient Been in a Fpc Facility in the Past 30 days?: No SOCIAL: Living Arrangements: Home Lives With: Alone Financial Resources: Retired Primary Contact: Extended Emergency Contact Information Primary Emergency Contact: Osmany Arreguin Relation: Son Supportive Patient Contact:: Yes Contact Resources: Family Family Name/Phone: Ayo Arreguin Social Needs Food insecurity Worry: Sometimes true Inability: Sometimes true Resources Needed: No Social Needs Financial resource strain: Not very hard Social Needs Transportation needs Medical: No Non-medical: No Caregiver AssessmentCaregiver is ready, willing and able to meet the patient's needs as recommended by the inter-professional team:: Other: See Comment(TBD) Does the patient have an acute stroke diagnosis, or has the patient had a stroke during this admission?: Yes Patient's transition needs and plan for meeting these needs: TBD Patient's perception of need for this admission: Stroke Medication Adherance I am convinced of the importance of my prescription medication: 0 - Agree Completely I worry that my prescription medication will do more harm than good to me : 0 - Disagree Completely I feel financially burdened by my [id number] expenses for my prescription medication:: 0 - Disagree Completely Risk Score: 0 Patient is categorized as: Low risk < 2 Are you interested in bedside delivery of your medications? No Is Patient Psychosocially Complex?: Yes, refer to Social Work ASSESSMENT AND PLAN: Medical Needs: Medical Needs: Two or more chronic diseases;Stroke/Cognitive defects Psychosocial Needs: Psychosocial Needs: Mental Health Diagnosis Mental Health Information: Depression FREEDOM OF CHOICE EXPLAINED: [place] of Choice Given: Yes Level of Care Discussed: Inpatient Rehab Facility Financial Disclosure Provided: Yes Provider List: Rehab Facility Provider list within the patient's requested geographic area shared with the patient/family: Yes within: 25 miles of zip code: [address] Quality and resource use metrics shared with the patient that are relevant to the patient's goals of care and treatment preferences:: Yes Metrics: Transfer of Health Information and Care Preferences;Resource Use;Discharge to Community;Cognitive Status POTENTIAL TRANSITION PLANS Home;Home Care;Home OT/PT;Rehab Facility GERIATRIC DEPRESSION SCREEN 1. Are you basically satisfied with your life? No (1 point) 2. Have you dropped many of your activities and interests? Yes (1 point) 3. Do you feel that your life is empty? Yes (1 point) 4. Do you often get bored? Yes (1 point) 5. Are you in good spirits most of the time? No (1 point) 6. Are you afraid that something bad is going to happen to you? Yes (1 point) 7 Do you feel happy most of the time? No (1 point) 8 Do you often feel helpless? Yes (1 point) 9. Do you prefer to stay home, rather than going out and doing new things? Yes (1 point) 10. Do you feel that you have more problems with memory than most? Yes (1 point) 11. Do you think it is wonderful to be alive now? No (1 point) 12. Do you feel worthless the way you are now? Yes (1 point) 13. Do you feel full of energy? No (1 point) 14. Do you feel that your situation is hopeless? Yes (1 point) 15. Do you think that most people are better off than you are? Yes (1 point) Total Score: 15 Scores greater than 5 indicate probably depression Score Result 0-4 No Depression 5-10 Suggestive of Mild Depression 11+ Suggestive of Severe Depression Called pt on the phone. 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 Pt endorses depression prior to this admission and scored very high on geriatric depression screening. Discussed results and treatment options with pt who is ambivalent about psychiatry and/or therapy for treatment. Pt also endorses concerns about misusing her prescription medications including xanax, Ambien, and oxycodone. Pt reports she has been taking more than prescribed for "months". Pt ambivalent about treatment but demonstrates insight into this concern. Pt denies any past or current SI. SW will discuss with attending. Pt gave permission for SW to discuss concerns with her son Osmany. Per Osmany, pt has very low motivation for physical recovery and he reports she lost her in 2018 to strokes and recently lost her granddaughter to Lukemia. Osmany is aware/has been suspicious of her medication misuse and declining mental health however feels powerless as pt does not engage in treatment. Pt unsure if she is agreeable to AR and has had HHC in the past for stroke recovery. Reviewed options and referral sent to [facility]. Pt may change her mind and need choices for HHC. SIGNATURE: JESUS Alvarez PATIENT NAME: Lisa Shirley DATE: March 12, 2020 TIME: 3:59 PM PAGER/CONTACT #: [phone] [facility] CONSULTon 03-12-2020 CONSULT HNO ID: [id number] Author: Severo Barragan MD Service: Neurology Stroke Author Type: Physician Type: Consults Filed: 03/12/2020 1:52 PM Note Text: NEURO STROKE INITIAL CONSULT SERVICE DATE: 03/12/2020 SERVICE TIME: 1200 REQUESTING PHYSICIAN: Dr Schwab PCP: Jaqueline Aragon DO REASON FOR STROKE EVALUATION: RMCA stroke Subjective HPI: 74 year old female with hx as below admitted with left sided weakness, found to have subsequent RMCA stroke on imaging, outside treatment window. Per hpi: ''Patient is a 74 year old female with past medical history significant for?DM type II, HTN, CKD stage 3, HLD, SEE, major depressive disorder, GERD, Insomnia, and IBS who presents as transfer from [place] with findings of acute R MCA stroke. Patient was reportedly found down at home and had not been seen since Thursday. Police sent to home for welfare check. Per son, there was an email sent yesterday to him from her so unsure if LKW was 1 or 2 days ago. Patient found to have left sided deficits, dysarthria and left ankle bruising/swelling. Patient reportedly has hx of stroke but no prior deficits. In ED at [facility], stroke eval performed with CT findings of R caudate, insula and frontal evolving infarcts. ASPECTS score 5. CTA nondiagnostic as contrast infiltrated in arm and IV access lost during scan. Central line placed at [facility] for access. Patient out of window for tPA and also no role for endovascular therapy given 24-48hours out and evidence of evolving infarct on CT. Patient also found to be in DKA with glucose >500, ketones and anion gap of 21. Given SQ insulin at OSH. CK elevated >1,000. Given IVF. Patient hypertensive, tachycardic and febrile. COVID negative. Left ankle fracture by XR. Patient subsequently transferred here to [facility] for further stroke workup and management.'' Patient was found to be COVID positive on repeat testing. Orthopedics service following patient for left ankle fracture, anticipating surgical treatment in approx 10 days. Testing so far has included: TTE - Technically difficult exam due to body habitus and suboptimal positioning. - Exam indication: Stroke - The left ventricle is small. There is mild left ventricular hypertrophy. Left ventricular systolic function is normal. EF = 55 ? 5% (2D biplane) - The right ventricle is normal in size. Right ventricular systolic function is normal. - There is no patent foramen ovale as detected by Doppler, agitated saline contrast and saline contrast with valsalva. MRI b 1. ?Areas of acute ischemic infarct involving left insular cortex and left frontal lobe cortex, left middle cerebral artery territory. Slight effacement of sulci. 2. ?Subacute versus acute anterior right basal ganglia ischemic infarct with evidence of petechial hemorrhagic transformation. 3. ?Mild chronic small vessel ischemic changes of the supratentorial white matter. Remote lacunar infarct in the anterior left destiny. -- personally reviewed, normal flow voids Pre-admission Was patient on antithrombotic agent prior to admission: No Was patient on lipid lowering agent prior to admission: No Pre-morbid mRS: Premorbid Modified Meeta Score: 0 - No symptoms at all PAST MEDICAL HISTORY Diagnosis Date - Anxiety - Chest pain - Chronic pain sensitive to Cymbalta - Degeneration of lumbar intervertebral disc - Depression - Diabetes (HCC) - Diabetic polyneuropathy associated with type 2 diabetes mellitus (HCC) - Disorder of sacrum - Essential hypertension - Fatigue - Generalized anxiety disorder sensi to Cymbalta, etc; PREFERS XANAX only tok ok 09/08 - History of cerebrovascular accident - Hyperlipidemia - Hypertension - IBS (irritable bowel syndrome) - Idiopathic osteoporosis - Insomnia - Low back pain - Lumbar radiculopathy - Major depressive disorder - Morbid obesity (HCC) BMI 47 - Neuropathy - Obstructive sleep apnea syndrome - Osteoporosis - Panic state as acute reaction to stress - Sleep disorder - Stroke (HCC) - 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) - Vitamin B12 deficiency (non anemic) - Vitamin D deficiency PAST SURGICAL HISTORY Procedure Laterality Date - CHOLECYSTECTOMY HX - COLONOSCOPY usually had some polyps 2008 Social History Tobacco Use - Smoking status: Never Smoker - Smokeless tobacco: Never Used - Tobacco comment: Never smoked; Tobacco reviewed with patient 12/04/2015 Substance Use Topics - Alcohol use: No Comment: Non-drinker - Drug use: No FAMILY HISTORY Problem Relation Age of Onset - Colon Cancer Father - Cancer Father - other (Lung cancer) Mother - other (Diverticulitis) Brother ALLERGIES Allergen Reactions - Sofia Inhibitors Contraindication-Medical Surgical Chronic kidney disease - Actos [Pioglitazone] Intolerance - Buspar [Buspirone] Intolerance rem behavior disorder - Crestor [Rosuvastat* Unknown Sensitivity - Glimepiride Intolerance - Glipizide Intolerance - Lexapro [Escitalopr* Mental Status Change - Meloxicam Unknown - Metformin Contraindication-Medical Surgical Chronic kidney disease - Nsaids (Non-Steroid* Contraindication-Medical Surgical Chronic kidney disease - Prednisone Unknown Sensitivity - Seroquel [Quetiapin* Intolerance MEDICATION Pre-admission - zolpidem (AMBIEN) 5 mg tablet, Take 1 tablet by mouth at bedtime as needed for up to 90 days., Disp: 90 tablet, Rfl: 0 - oxyCODONE-acetaminophen (PERCOCET) 5-325 mg tablet, Take 1 tablet by mouth every 8 hours as needed for Pain for up to 30 days., Disp: 90 tablet, Rfl: 0 - diltiazem CD (CARDIZEM CD, CARTIA XT) 240 mg 24 hr capsule, TAKE 1 CAPSULE BY MOUTH EVERY DAY, Disp: 30 capsule, Rfl: 1 - ALPRAZolam (XANAX) 0.5 mg tablet, Take 1 tablet by mouth three times daily as needed for up to 90 days., Disp: 270 tablet, Rfl: 0 - glipiZIDE (GLUCOTROL) 5 mg tablet, Take 1 tablet by mouth twice daily before meals., Disp: 180 tablet, Rfl: 1 - sitaGLIPtin (JANUVIA) 100 mg tablet, Take 1 tablet by mouth once daily., Disp: 90 tablet, Rfl: 0 - polyethylene glycol 3350 (MIRALAX ORAL), Take 1 Packet by mouth once daily. , Disp: , Rfl: - nitroglycerin sublingual (NITROQUICK) 0.4 mg SL tablet, Dissolve 1 tablet under the tongue every 5 minutes as needed., Disp: 1 Bottle of 25, Rfl: 2 - calcium carbonate (CALCIUM 600) 600 mg calcium (1,500 mg) tab, Take 600 mg by mouth three times daily., Disp: , Rfl: - BIFIDOBACTERIUM INFANTIS (ALIGN ORAL), Take 1 tablet by mouth once daily. , Disp: , Rfl: Current zolpidem (AMBIEN) 5 mg tablet Take 1 tablet by mouth at bedtime as needed for up to 90 days. oxyCODONE-acetaminophen (PERCOCET) 5-325 mg tablet Take 1 tablet by mouth every 8 hours as needed for Pain for up to 30 days. diltiazem CD (CARDIZEM CD, CARTIA XT) 240 mg 24 hr capsule TAKE 1 CAPSULE BY MOUTH EVERY DAY ALPRAZolam (XANAX) 0.5 mg tablet Take 1 tablet by mouth three times daily as needed for up to 90 days. glipiZIDE (GLUCOTROL) 5 mg tablet Take 1 tablet by mouth twice daily before meals. sitaGLIPtin (JANUVIA) 100 mg tablet Take 1 tablet by mouth once daily. polyethylene glycol 3350 (MIRALAX ORAL) Take 1 Packet by mouth once daily. nitroglycerin sublingual (NITROQUICK) 0.4 mg SL tablet Dissolve 1 tablet under the tongue every 5 minutes as needed. calcium carbonate (CALCIUM 600) 600 mg calcium (1,500 mg) tab Take 600 mg by mouth three times daily. BIFIDOBACTERIUM INFANTIS (ALIGN ORAL) Take 1 tablet by mouth once daily. Objective PHYSICAL EXAM Vital Signs: BP 138/86 Pulse 69 Temp 37.1 ?C (98.8 ?F) (Oral) Resp 18 Ht 167.6 cm (5' 6") Wt 108 kg (238 lb 3.2 oz) SpO2 97% BMI 38.45 kg/m? NEUROLOGICAL: LOC: 0 - alert and responsive 0 LOC Questions: 1 - one correct 1 LOC Commands: 1 - one correct 1 Best Gaze: 1 - partial gaze palsy, abnormal gaze in 1 or both eyes 1 Visual: 2 - complete hemianopia 2 Facial Palsy: 2 - partial paralysis 2 Motor Left Arm: 3 - no antigravity effort but even minimal movements count 3 Motor Right Arm: 0 - no drift 0 Motor Left Le - no antigravity effort but even minimal movements count 3 Motor Right Le - some antigravity effort but cannot sustain 2 Limb Ataxia: 0 - no ataxia (or aphasic, hemiplegic) 0 Sensory: 2 - total loss, patient unaware of touch. coma, bilateral loss 2 Best Language: 1 - mild-mod aphasia (comprehensible) 1 Dysarthria: 1 - mild-mod slurred 1 Extinction and Inattention: 1 - neglects or extinguishes to double simultaneous stimulation in any modality 1 Initial NIHSS Score: 20 (03/08/20 2200 : Caro Wen (Pa)) 20 DATA: Diagnostic tests reviewed for today's visit: Lipids, HbA1c, CMP, CBC, Coags Recent Labs 03/11/20 0842 03/10/20 1117 03/10/20 0539 NA -- -- 139 K -- -- 3.8 CHLOR -- -- 104 CO2 -- -- 23 BUN -- -- 26* CREAT -- -- 1.23* GLUC -- -- 271* CA -- -- 8.8 WBC 9.87 -- 10.64 HB 12.2 -- 12.7 HCT 35.8* -- 36.6 PLT 244 -- 207 INR -- 1.0 -- Cardiac Enzymes Recent Labs 03/09/20 1623 CK 1,014* usCRP Most recent labs and imaging results. STROKE CARE PATH LEVY [employer] Initial NIHSS Score: 20 Date Patient Last Known Well: 03/06/20 Date of Patient Arrival at THIS Facility: 03/08/20 Time of Patient Arrival at THIS Facility: 2154 Endovascular Therapy Details Candidate for Endovascular Therapy (Last Known Well within 24 hours): Other (Specify) Endovascular Therapy Candidate (Specify): LKW >24 hours and evolving infarct >2/3 territory evident on presenting CT Endovascular Treatment Plan: Neurology reviewed, patient is not a candidate Reason(s) Endovascular Therapy Not Planned: Large Infarct on CT or MR Imaging Vadim Coma Scale Totals (Calculated): 15 STROKE 9 CARE AND PREVENTION CHECKLIST 1. Is the patient currently on an ANTITHROMBOTIC medication (Antiplatelet or Anticoagulant): None Reason Antithrombotic not prescribed: Risk of bleeding or discontinued due to bleeding 2. Does the patient have known AFIB/FLUTTER: No 3. Is the patient on a STATIN: None Reason for no statin/other medication prescribed: Allergy to HMG CoA Reductase Inhibitors (document in allergy activity) 4. Is the patient on VTE prophylaxis: Mechanical prophylaxis;Pharmacological prophylaxis Pharmacological intervention type: Heparin SQ Mechanical intervention type: Intermittent compression stocking(s) 5. GLYCEMIC Control Medications: BG needs further management 6. Stroke BP Goals: Permissive HTN (treat if >220/120) Stroke BP Control: BP needs further management 7. Stroke IVF/Nutrition: IVF 8. TEMPERATURE Control: Normothermic 9. Does the patient need THERAPY: Yes Therapy involvement: PT;OT;ST;PMANDR Stroke Care and Prevention (personally reviewed by Severo Barragan MD): Daily Rounding Date: 03/08/20 Daily Rounding Time: 2199 PROBLEM LIST: Principal Problem: Acute right MCA stroke (HCC) POA: Yes Active Problems: Respiratory tract infection due to COVID-19 virus POA: Yes Type 2 diabetes mellitus with diabetic neuropathy, without long-term current use of insulin (HCC) POA: Yes Essential hypertension POA: Yes Dysphagia POA: Yes Chronic kidney disease, stage 3, mod decreased GFR POA: Yes Acute kidney injury superimposed on chronic kidney disease (HCC) POA: Yes Elevated troponin POA: Yes Closed left ankle fracture POA: Yes Resolved Problems: Rhabdomyolysis POA: Yes Diabetic ketoacidosis without coma associated with type 2 diabetes mellitus (HCC) POA: Yes Impression/Recommendations IMPRESSION 74 year old female with acute RMCA stroke, suspected thrombo-embolus from a proximal source although vascular evaluation remains incomplete. Will check a carotid ultrasound to evaluate for any proximal carotid stenosis, and also recommend checking D-dimer and LDH given concurrent COVID-19. If testing remains unrevealing, would consider outpatient 30 day cardiac event monitor. Stroke Mechanism Stroke Mechanism - LIP ENTRY ONLY Ischemic Stroke or TIA: Ischemic Stroke TOAST Mechanism (CCF-MODIFIED): Stroke of Undetermined Etiology Daily NIHSS Score: 20 SIGNATURE: Severo Barragan MD PATIENT NAME: Lisa Shirley DATE: March 12, 2020 TIME: 12:13 PM PAGER/CONTACT #: [phone] Normal [facility] Comp Metab 1999 Pnl SerPlon 03-12-2020 Albumin [Mass/Vol] 3.0 g/dL Low 3.9-4.9 [facility] Comment on above: Order Comment: Speci men Type: BLOOD SPECIMEN Performed By: #### 2 532-0, ####[facility]ATORYCLIA [id number] [place] [address] ALP [Catalytic activity/Vol] 52 U/L Normal 34-123 [facility] Comment on above: Order Comment: Speci men Type: BLOOD SPECIMEN Performed By: #### 2 532-0, 17872-4 ####[facility]CLIA [id number] [place] [address] ALT With P-5'-P [Catalytic activity/Vol] 14 U/L Normal 7-38 [facility] Comment on above: Order Comment: Speci men Type: BLOOD SPECIMEN Performed By: #### 2 532-0, ####[facility] [id number] [place] [address] Anion gap [Moles/Vol] 10 mmol/L Normal 9-18 [facility] Comment on above: Order Comment: Speci men Type: BLOOD SPECIMEN Performed By: #### 2 532-0, ####[facility]IA [id number] [place] [address] AST With P-5'-P [Catalytic activity/Vol] 12 U/L Low 13-35 [facility] Comment on above: Order Comment: Speci men Type: BLOOD SPECIMEN Performed By: #### 2 532-0, ####[facility]IA [id number] [place] [address] Bilirubin [Mass/Vol] 0.3 mg/dL Normal 0.2-1.3 [facility] Comment on above: Order Comment: Speci men Type: BLOOD SPECIMEN Performed By: #### 2 532-0, 44771-6 ####[facility] [id number] [place] [address] Calcium [Mass/Vol] 7.9 mg/dL Low 8.5-10.2 [facility] Comment on above: Order Comment: Speci men Type: BLOOD SPECIMEN Performed By: #### 2 532-0, ####[facility] LABORATORYCLIA [id number] [place] [address] Chloride [Moles/Vol] 107 mmol/L High 97-105 [facility] Comment on above: Order Comment: Speci men Type: BLOOD SPECIMEN Performed By: #### 2 532-0, ####[facility] LABORATORYCLIA [id number] [place] [address] CO2 [Moles/Vol] 25 mmol/L Normal 22-30 [facility] Comment on above: Order Comment: Speci men Type: BLOOD SPECIMEN Performed By: #### 2 532-0, ####[facility]ORATORYCLIA [id number] [place] [address] Creatinine [Mass/Vol] 0.99 mg/dL High 0.58-0.96 [facility] Comment on above: Order Comment: Speci men Type: BLOOD SPECIMEN Performed By: #### 2 532-0, ####[facility] LABORATORYCLIA [id number] [place] [address] GFR/1.73 sq M.predicted MDRD (S/P/Bld) [Vol rate/Area] mL/min/{1.73_m2} Normal [facility] Comment on above: Order Comment: Speci men Type: BLOOD SPECIMEN Result Comment: 55 eGFR (Estimated GFR) Units of measure: mL/min/1.73 meters squared eGFR is derived from the reexpressed MDRD Study equation using the following parameters: serum creatinine, age, gender and race. The creatinine assay has been calibrated to be traceable to IDMS. An eGFR <60 mL/min/1.73m2 for >3 months is consistent with chronic kidney disease. Refer to KDOQI guidelines for clinical interpretation. In patients with unstable renal function, e.g. those with acute kidney injury, the eGFR may not accurately reflect actual GFR. Performed By: #### 2 532-0, 86983-3 ####[facility] LABORATORYCLIA [id number] [place] [address] Glucose [Mass/Vol] 279 mg/dL High 74-99 [facility] Comment on above: Order Comment: Speci men Type: BLOOD SPECIMEN Result Comment: The [place] Diabetes Association (ADA) provides guidance for cutoff values for fasting glucose and random glucose. The ADA defines fasting as no caloric intake for at least 8 hours. Fasting plasma glucose results between 100 to 125 mg/dL indicate increased risk for diabetes (prediabetes). Fasting plasma glucose results greater than or equal to 126 mg/dL meet the criteria for diagnosis of diabetes. In the absence of unequivocal hyperglycemia, results should be confirmed by repeat testing. In a patient with classic symptoms of hyperglycemia or hyperglycemic crisis, random plasma glucose results greater than or equal to 200 mg/dL meet the criteria for diagnosis of diabetes. Reference: Standards of Medical Care in Diabetes 2016, [place] [employer]. Diabetes Care. 2016.39(Suppl 1). Performed By: #### 2 532-0, ####[facility] LABORATORYCLIA [id number] [place] [address] Potassium [Moles/Vol] 3.8 mmol/L Normal 3.7-5.1 [facility] Comment on above: Order Comment: Speci men Type: BLOOD SPECIMEN Performed By: #### 2 532-0, ####[facility]ORATORYCLIA [id number] [place] [address] Protein [Mass/Vol] 5.3 g/dL Low 6.3-8.0 [facility] Comment on above: Order Comment: Speci men Type: BLOOD SPECIMEN Performed By: #### 2 532-0, ####[facility]ORATORYCLIA [id number] [place] [address] Sodium [Moles/Vol] 142 mmol/L Normal 136-144 [facility] Comment on above: Order Comment: Speci men Type: BLOOD SPECIMEN Performed By: #### 2 532-0, 66419-1 ####[facility]ORATORYCLIA [id number] [place] [address] Urea nitrogen [Mass/Vol] 32 mg/dL High 7-21 [facility] Comment on above: Order Comment: Speci men Type: BLOOD SPECIMEN Performed By: #### 2 532-0, 91745-5 ####[facility]ORATORYCLIA [id number] [place] [address] D dimer FEU PPP-mCncon 03-12 D DIMER AGE-RELATED CUTOFF 720 ng/mL FEU Normal [facility] Comment on above: Order Comment: Speci men Type: BLOOD SPECIMEN Performed By: #### 3 4528-0, 38942-1 ####[facility]ORATORYCLIA [id number] [place] [address] Fibrin D-dimer FEU (PPP) [Mass/Vol] 2680 ng/mL FEU High <500 [facility] Comment on above: Order Comment: Speci men Type: BLOOD SPECIMEN Performed By: #### 3 4528-0, 64378-5 ####[facility]ORATORYCLIA [id number] [place] [address] LDH SerPl-cCncon 03-12-2020 LDH [Catalytic activity/Vol] 274 U/L High 135-214 [facility] Comment on above: Order Comment: Speci men Type: BLOOD SPECIMEN Performed By: #### 2 532-0, 58276-9 ####[facility]ORATORYCLIA [id number] [place] [address] NURSING PROGon 03-12-2020 NURSING PROG HNO ID: [id number] Author: Carmina Tovar) JONNY Muñiz Service: Nursing Author Type: Registered Nurse Type: Nursing Progress Note Filed: 03/12/2020 7:29 PM Note Text: Nursing Progress Note Patient Name: Lisa Shirley Patient Location: [id number] 1 Daily Note: Paged sound orange at 1357 to obtain IV fluid order and switching some PO meds to IV since we now have a double lumen PICC. This note was completed by: Carmina Muñiz RN [facility] NURSING PROG HNO ID: [id number] Author: Carmina Jean-BaptisteRn) JONNY Muñiz Service: Nursing Author Type: Registered Nurse Type: Nursing Progress Note Filed: 03/12/2020 3:34 PM Note Text: Nursing Progress: Topic: RESTRAINT NON-VIOLENT PATIENT NAME: Lisa Shirley PATIENT LOCATION: [place] [address] [address]* The patient demonstrates Attempting to Remove Medical Devices Vital to Medical Stability, Confusion, Lack of Understanding/Ability to Comply with Safety Directions, Impulsive Behavior, Inability to be Redirected, Inability to Retain Information Regarding Safety Directions as evidenced by the following behaviors pulling at corpak, pulled out several ivs, pulling at iv poles which pose an imminent danger to self or others. The following interventions were attempted but were not effective in protecting the patient's safety: Alarms, Bed in Low/Locked Position, Call Light Within Reach, IV/Feeding Bag/Pump Out of Vision, Medications Reviewed, Modify Environment, Modify Equipment, Frequent Observation Next, a comprehensive assessment was performed and warranted placing the patient in Soft Bilateral Wrists, the least restrictive restraint needed to protect the patient's safety. Ongoing safety assessments and evaluation for earliest removal of restraints will be performed. DATE: March 12, 2020 TIME: 3:33 PM Carmina Muñiz RN [facility] PROCEDUREon 03-12-2020 PROCEDURE HNO ID: [id number] Author: Silvia Rothman RN Service: PICC Team Author Type: Registered Nurse Type: Procedures Filed: 03/12/2020 3:51 PM Note Text: PICC NURSE INSERTION NOTE DATE OF PROCEDURE: March 12, 2020 TIME OF PROCEDURE: 1400 ORDERING PHYSICIAN: Sabine INFORMED CONSENT: Obtained per hospital policy. 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* Unknown Sensitivity - Glimepiride Intolerance - Glipizide Intolerance - Lexapro [Escitalopr* Mental Status Change - Meloxicam Unknown - Metformin Contraindication-Medical Surgical Chronic kidney disease - Nsaids (Non-Steroid* Contraindication-Medical Surgical Chronic kidney disease - Prednisone Unknown Sensitivity - Seroquel [Quetiapin* Intolerance Known History of Upper Venous Thrombosis: No Known History of Permanent Pacemaker or Automated Implanted Cardiac Device: No Previous Breast Surgery of Lymph Node Dissection: No eGFR-All Other Races Date/Time Value Ref Range Status 03/10/2020 05:39 AM 43 Final Comment: eGFR (Estimated GFR) Units of measure: mL/min/1.73 meters squared eGFR is derived from the reexpressed MDRD Study equation using the following parameters: serum creatinine, age, gender and race. The creatinine assay has been calibrated to be traceable to IDMS. An eGFR <60 mL/min/1.73m2 for >3 months is consistent with chronic kidney disease. Refer to KDOQI guidelines for clinical interpretation. In patients with unstable renal function, e.g. those with acute kidney injury, the eGFR may not accurately reflect actual GFR. 09/07/2017 04:58 AM 37 . Final Comment: eGFR (Estimated GFR) Units of measure: mL/min/1.73 meters squared eGFR is derived from the reexpressed MDRD Study equation using the following parameters: serum creatinine, age, gender and race. The creatinine assay has been calibrated to be traceable to IDMS. An eGFR <60 mL/min/1.73m2 for >3 months is consistent with chronic kidney disease. Refer to KDOQI guidelines for clinical interpretation. In patients with unstable renal function, e.g. those with acute kidney injury, the eGFR may not accurately reflect actual GFR. eGFR- Date/Time Value Ref Range Status 03/10/2020 05:39 AM 52 Final 09/07/2017 04:58 AM 44 Final eGFR Date/Time Value Ref Range Status 11/07/2019 03:50 PM 39.57 >60mL/min/1.73m2 Final Comment: If the patient is , multiply the result by 1.210. History of Renal Disease: Yes - Chronic Kidney Disease / Transplant - Clearance provided by Dr. Frye Arterio-Venous Fistula in Place or Planned: No Ultrasound Assessment Complete: Yes PROCEDURE NARRATIVE SAFE PRACTICE Hand Hygiene per Hospital Policy: Yes Skin Preparation Unit Dose Applicator Used: Chloraprep (CHG + alcohol), allowed to dry. Procedure Surface Cleansed with Antimicrobial Wipes: Yes Barriers Used by Proceduralist and all Assisting Personnel: Yes UNIVERSAL PROTOCOL / SAFETY CHECKLIST Procedure to be performed: Peripherally Inserted Central Catheter Sign in Communication: Completed Time Out: Team Confirms the Correct Patient, Correct Procedure, Correct Site and Site Marking, Correct Position (if applicable), Prep and Dry Time (if applicable). Time: 1400 Affirmation of Time Out: N/A Sign Out Discussion: Completed Genie Drummond RN CATHETER PLACEMENT Brand: Bard Lot: [id number] Number of Lumens: 2 Type of PICC: Power Injectable PICC Lumen Size: 5 Micronesian PLACEMENT TECHNIQUE Lidocaine: Yes, Lidocaine 1% Volume 2 mL Subcutaneous Modified Seldinger Technique Used to Place Line via the Right Basilic Ultrasound Guidance: Yes Number of Attempts at Insertion: 1 Ensured control of guidewire during all aspects of the procedure: Yes Accounted for entire guidewire upon removal: Yes Internal Length: 43 cm External Length: 1 cm Trim Length: 44 cm Mid-Arm Circumference: 46 centimeters Post Insertion Pain Level Related to Procedure: 0 Action Taken to Address Pain: None needed Verified Placement: Blood return and flushes with ease and Chest X-ray ordered,1550 CXR shows tip of PICC in the distal SVC per Dr Gayle - PICC CLEARED TO USE Line was Flushed with 20 cc normal saline Line Secured with: Securement device Sterile Dressing Applied and Dated: Yes Sterile Caps on all Ports Prior to Leaving Procedure Area: Yes, Disinfection caps applied SPECIMENS: None COMPLICATIONS: None Patient Education Materials: Placed in chart [facility] General Central Line Insertion Checklist utilized during this procedure QUESTIONS or PROBLEMS: Call [phone] SIGNATURE: Genie Drummond RN PATIENT NAME: Lisa Shirley DATE: March 12, 2020 TIME: 2:18 PM PAGER/CONTACT PHONE: [facility] PROGRESSon 03-12-2020 PROGRESS HNO ID: [id number] Author: Maite Regalado Service: Hospital Medicine Author Type: Physician Type: Progress Notes Filed: 03/12/2020 7:59 PM Note Text: DEPARTMENT OF HOSPITAL MEDICINE [place] [facility] PROGRESS NOTE- HOSPITAL DAY 4 SERVICE DATE: 03/12/2020 7:49 PM Hospital Medicine/Primary Attending: Maite Regalado MD CHIEF COMPLAINT: Acute right MCA stroke (HCC) OVERNIGHT EVENTS: None INTERVAL HISTORY OF PRESENT ILLNESS: Today, Corpak became dislodged and was not able to be replaced. MBSS recommended by Speech. PICC placed. Pain is controlled, patient more awake and alert. Patient Vitals for the past 24 hrs: BP Temp Temp src Pulse Resp SpO2 03/12/20 1530 167/71 37.6 ?C (99.7 ?F) Axillary 66 18 97 % 03/12/20 1142 138/86 37.1 ?C (98.8 ?F) Oral 69 18 97 % 03/12/20 0836 169/79 36.8 ?C (98.2 ?F) Oral 74 18 96 % 03/12/20 0600 178/86 ? 03/12/20 0300 189/87 37.2 ?C (99 ?F) Axillary 73 18 96 % 03/11/20 2339 176/95 37.3 ?C (99.1 ?F) Oral 76 18 96 % 03/11/20 2113 172/93 36.9 ?C (98.4 ?F) Oral 73 18 95 % Temp (24hrs), Av.2 ?C (98.9 ?F), Min:36.8 ?C (98.2 ?F), Max:37.6 ?C (99.7 ?F) Recent Labs 03/12/20 1841 03/12/20 1232 03/12/20 0558 03/11/20 2336 03/11/20 1738 03/11/20 1110 03/11/20 0603 03/10/20 2354 03/10/20 1730 03/10/20 1150 03/10/20 0545 03/10/20 0206 03/09/20 2033 PCGLUCOSE 252* 310* 323* 326* 369* 221* 264* 284* 346* 208* 271* 332* 216* REVIEW OF SYSTEMS GENERAL: Positive for malaise HEENT: SEE HPI NECK: No pain at central line site right neck RESPIRATORY: Positive for non-productive cough CARDIOVASCULAR: Negative for chest pain, leg swelling and palpitations GI: Negative for abdominal discomfort, blood in stools or black stools : Cortes in place MUSCULOSKELETAL: See HPI SKIN: Negative NEURO: SEE HPI ? PHYSICAL EXAM: GENERAL: Alert, Mild Distress, Cooperative SKIN: Full exam not able to be completed at this time. Right neck site without erythema, bandage not disturbed NECK: No jugulovenous distention, No carotid bruits, Carotid pulse normal contour, Supple LUNGS: Positive findings: diminished breath sounds bibasilar CARDIAC: Normal S1 and S2; no rubs, murmurs, or gallops ABDOMEN: Abdomen soft, non-tender, BS normal, No masses or organomegaly EXTREMITIES: left lower leg in splint and wrapped, not disturbed. Obvious deformity of left ankle inversion NEURO: Dysarthria, left leg/arm hemiparesis ? ? ASSESSMENT AND PLAN ? Principal Problem: Acute right MCA stroke (HCC) POA: Yes Assessment AND Plan: No tPA or NIL indicated, now stable out of ICU. PT eval ongoing, rehab will be difficult with fracture and no operative plans for now ? ? Active Problems: Respiratory tract infection due to COVID-19 virus POA: Yes Assessment AND Plan: Finish courses of decadron and remdesivir, currently stable on room air ? ? Elevated troponin POA: Yes Assessment AND Plan: Mild, no ACS or WI suspected ? ? Closed left ankle fracture POA: Yes Assessment AND Plan: Nonoperative management at this time, and will defer timing of future surgery to orthopedics ? ? Acute kidney injury superimposed on chronic kidney disease (HCC) POA: Yes Assessment AND Plan: Resolved with IVF ? ? Essential hypertension POA: Yes Assessment AND Plan: Improved control with Coreg, no need for permissive HTN after 48 hours ? ? Type 2 diabetes mellitus with diabetic neuropathy, without long-term current use of insulin (HCC) POA: Yes Assessment AND Plan: Monitor closely, SSI, management per endocrine ? ? Dysphagia POA: Yes Assessment AND Plan: from CVA, awaiting MBSS, currently without corpak but continue speech therapy and will feed if cleared ? ? Chronic kidney disease, stage 3, mod decreased GFR POA: Yes Assessment AND Plan: not at baseline ? ? Resolved Problems: Rhabdomyolysis POA: Yes ? Diabetic ketoacidosis without coma associated with type 2 diabetes mellitus (HCC) POA: Yes ? ? ? CODE STATUS: Full PLANNED DISPOSITION: Extended Care Facility ? Total time 30 minutes during this encounter, including chart review, discussion with nursing staff and/or other providers, documentation, order filler, and [id number]-[id number] time with patient.? ? Diagnostic tests reviewed for today's visit: Most recent labs and imaging results. TELEMETRY: NSR LABS CBC: Recent Labs 03/11/20 0842 WBC 9.87 HB 12.2 PLT 244 CMP: Recent Labs 03/12/20 1612 NA 142 K 3.8 CHLOR 107* CO2 25 BUN 32* CREAT 0.99* GLUC 279* CA 7.9* AST 12* ALT 14 ALKPHOS 52 Plan of care discussed with: Provider, RN, Patient MEDICATIONS: Current Facility-Administered Medications Medication Dose Route Frequency - docusate 100 mg oral liquid (DIOCTO, COLACE) 100 mg ORAL/FEEDING TUBE BID - bisacodyl 10 mg suppository (DULCOLAX) 10 mg RECTAL DAILY PRN - ondansetron (PF) 4 mg injection (ZOFRAN) 4 mg INTRAVENOUS q 4 H PRN - heparin 5,000 Units injection 5,000 Units SUBCUTANEOUS q 8 H - acetaminophen 650 mg tab(s) (TYLENOL) 650 mg ORAL/FEEDING TUBE q 4 H PRN Or - acetaminophen 650 mg CUP (TYLENOL) 650 mg ORAL/FEEDING TUBE q 4 H PRN Or - acetaminophen 650 mg suppository (TYLENOL) 650 mg RECTAL q 4 H PRN - fentaNYL 50 mcg/mL 25 mcg injection (SUBLIMAZE) 25 mcg INTRAVENOUS q 2 H PRN - miconazole 2 % 1 application topical powder (LOTRIMIN AF, DESENEX) 1 application TOPICAL BID - atorvastatin 80 mg tab(s) (LIPITOR) 80 mg ORAL/FEEDING TUBE AT BEDTIME - insulin NPH human 12 Units injection pen (intermediate acting) (NovoLIN N, HumuLIN N) 12 Units SUBCUTANEOUS BID - insulin regular human injection (short acting) (NovoLIN R,HumuLIN R) SUBCUTANEOUS q 6 H - insulin regular human 5 Units injection (short acting) (NovoLIN R,HumuLIN R) 5 Units SUBCUTANEOUS q 6 H - dextrose 40 % 15 g 15 g ORAL PRN Or - glucagon 1 mg injection 1 mg INTRAMUSCULAR PRN Or - dextrose 50% in water 25 mL syringe 12.5 g INTRAVENOUS PRN - aspirin 81 mg chewable tab(s) 81 mg ORAL/FEEDING TUBE DAILY - remdesivir 100 mg in NaCl 0.9% 250 mL 100 mg INTRAVENOUS q 24 HR And - sodium chloride 0.9 % (flush) 30 mL (BD POSIFLUSH) 30 mL INTRAVENOUS q 24 HR - Dexamethasone sodium phosphate (PF) 6 mg injection (DECADRON) 6 mg INTRAVENOUS q 24 H - diltiazem 60 mg tab(s) (CARDIZEM) 60 mg ORAL/FEEDING TUBE q 6 H - hydrALAZINE 25 mg tab(s) (APRESOLINE) 25 mg ORAL/FEEDING TUBE q 6 H PRN - carvedilol 6.25 mg tab(s) (COREG) 6.25 mg ORAL/FEEDING TUBE q 12 HR - sodium chloride 0.9 % (flush) 10 mL (BD POSIFLUSH) 10 mL INTRAVENOUS q 12 H - sodium chloride 0.9 % (flush) 20 mL (BD POSIFLUSH) 20 mL INTRAVENOUS PRN - pill sheet rock hanger (patient-specific) 1 Each Miscell. (Med.Supl.;Non-Drugs) PRN - ondansetron 4 mg tab(s) (ZOFRAN) 4 mg ORAL/FEEDING TUBE q 6 H PRN - nystatin 5 mL oral liquid (MYCOSTATIN) 5 mL MUCOUS MEMBRANE QID Medications Discontinued During This Encounter Medication Reason - insulin regular human 100 Units in NaCl 0.9% 100 mL - ICU NOMOGRAM - insulin regular human iv bolus 2-10 Units - dextrose 50% in water 25-50 mL syringe - NaCl 0.45% iv infusion - dextrose 5% in NaCl 0.45% iv infusion - ALPRAZolam (XANAX) 0.5 mg tablet - piperacillin-tazobactam iv piggyback 3.375 g in dextrose (iso-osmotic) 50 mL (ZOSYN) - vancomycin iv piggyback 1.5 g in D5W 250 mL (VANCOCIN) - vancomycin dosing and monitoring per pharmacy - famotidine 20 mg injection (PEPCID) - dextrose 5% in NaCl 0.45% with 20 mEq/L KCl iv infusion - insulin regular human 100 Units in NaCl 0.9% 100 mL - ICU NOMOGRAM - dextrose 5% in NaCl 0.45% with 20 mEq/L KCl iv infusion - insulin regular human 100 Units in NaCl 0.9% 100 mL - ICU NOMOGRAM - dextrose 5% in NaCl 0.45% iv infusion - dextrose 40 % 15 g - glucagon 1 mg injection - dextrose 50% in water 25 mL syringe - aspirin 81 mg tab(s) - sodium chloride 0.9 % (flush) 3-5 mL (BD POSIFLUSH) - sodium chloride 0.9 % (flush) 10 mL (BD POSIFLUSH) - sodium chloride 0.9 % (flush) 20 mL (BD POSIFLUSH) - labetalol 10 mg injection syringe (NORMODYNE) - potassium chloride ER 20-40 mEq tab(s) (K-DUR, KLOR-CON) - potassium chloride iv piggyback 20 mEq/100 mL - magnesium sulfate in sterile water 2 g in sterile water 50 ml - sodium phosphate 45 mmol in NaCl 0.9% 250 mL - calcium gluconate 4 g in NaCl 0.9% 250 mL - perflutren lipid microspheres 1.1 mg/mL 1.3 mL injection (DEFINITY) - hydrALAZINE 10 mg tab(s) (APRESOLINE) SIGNATURE: Maite Regalado MD PATIENT NAME: Lisa Shirley DATE: March 12, 2020 TIME: 7:49 PM PAGER #: Primary Service NIGHT AND WEEKEND COVERAGE: After 7pm please page [phone] [facility] PROGRESS HNO ID: [id number] Author: Silvia Tovar) JONNY Rothman Service: PICC Team Author Type: Registered Nurse Type: Progress Notes Filed: 03/12/2020 9:09 AM Note Text: PICC/VASCULAR ACCESS PROGRESS NOTE SERVICE DATE: 03/12/2020 SERVICE TIME: 904 PICC Consult: Talked with Dr Frye about GFR of 43, clearance given to place PICC. SIGNATURE: Silvia Rothman RN PATIENT NAME: Lisa Shirley DATE: March 12, 2020 TIME: 9:08 AM PAGER/CONTACT #: [phone] [facility] PROGRESS HNO ID: [id number] Author: Leland Herrera Service: Orthopaedic Surgery Author Type: Physician Type: Progress Notes Filed: 03/12/2020 10:49 AM Note Text: ORTHOPAEDIC SURGERY POSTOP DAILY PROGRESS NOTE Patient Name: Lisa Shirley Date of Evaluation: 03/12/2020 Admission Date: 03/08/2020 Time of Evaluation: 5:54 AM ORTHO STAFF: Agree with resident assessment and plan noted below. Reviewed surgical timing given Covid status positive 03/08/[address] Ajay Fulton, ID. Patient cannot wait recommended 28 days for definitive surgical intervention left ankle. Best recommendation is waiting 10 days from positive test result for anticipated decreased active viral load, with staff precautions during procedure. Will tentatively schedule surgical procedure 03/19/2020 based on discussion, and will notify Anesthesia staff. Leland Herrera MD ASSESSMENT: 74 year old female with left trimalleolar fracture PLAN: - Medical management per primary - Pain control per primary - Ice/elevate LLE - NWB LLE - Splint in place, maintain, keep dry, clean and intact - Appreciate medicine and infectious disease treatment - Definitive surgical plan TBD; patient currently has COVID19 and is stably reduced in a splint. Surgery will be held likely until COVID19 resolved. INTERVAL HPI: Patient monitored, no new events overnight. Currently treated with remdesivir and decadron for COVID19. Virtual visit. OBJECTIVE: BP 189/87 Pulse 73 Temp 37.2 ?C (99 ?F) (Axillary) Resp 18 Ht 167.6 cm (5' 6") Wt 108 kg (238 lb 3.2 oz) SpO2 96% BMI 38.45 kg/m? Intake/Output Summary (Last 24 hours) 03/110 - 03/12 0659 In: - Out: 750 [Urine:750] Exam: General: Virtual visit Extremities: Virtual visit Labs: BMP: Sodium 139 03/10/2020 Potassium 3.8 03/10/2020 Chloride 104 03/10/2020 CO2 23 03/10/2020 BUN 26 03/10/2020 Creatinine 1.23 03/10/2020 Glucose 271 03/10/2020 CBC: WBC 9.87 03/11/2020 Hemoglobin 12.2 03/11/2020 Hematocrit 35.8 03/11/2020 Platelet Count 244 03/11/2020 COAGS: APTT 23.7 03/08/2020 PT INR 1.0 03/10/2020 SED RATE/CRP: No results found for this basename: wsr:*,crp:* Imaging: No new images Akin Rogers MD Resident, Orthopaedic Surgery Pager #: [phone] 03/12/2020 5:54 AM Please page [phone] from 5p-6a and on weekends for any issues. Normal [facility] PT EDon 03-12-2020 PT ED HNO ID: [id number] Author: Genie (Rn) JONNY Drummond Service: PICC Team Author Type: Registered Nurse Type: Patient Education Filed: 03/12/2020 2:15 PM Note Text: PATIENT EDUCATION VASCULAR ACCESS TEAM TOPIC: Peripherally Inserted Central Catheter READINESS TO LEARN COGNITIVE ABILITY: Alert and oriented MOTIVATION TO LEARN: Interested FAMILY SUPPORT: Unable to assess - Family not present INSTRUCTION PROVIDED TO: Patient PATIENT LEARNS BEST BY: Individual Instruction FACTORS AFFECTING LEARNING:None PHYSICAL LIMITATIONS AFFECTING LEARNING: Limited Mobility LEARNING RESPONSE METHOD OF INSTRUCTION: Individual instruction PATIENT / FAMILY RESPONSE: Verbalizes understanding of pre-procedure instructions Verbalizes understanding of post-procedure instructions FOLLOW-UP PLAN: Follow-up with Primary Care SUPPLEMENTAL MATERIAL: PICC Line brochure and [facility] catheter-Associated Bloodstream Infection fact sheet Normal [facility] PT Pnl PPPon 03-12-2020 INR Coag (PPP) [Relative time] 1.1 {INR} Normal 0.9-1.3 [facility] Comment on above: Order Comment: Speci men Type: BLOOD SPECIMEN Result Comment: Francia min K Antagonist (VKA) Therapeutic Range: INR 2 to 3 (Target INR of 2.5) Note: For patients treated with VKA drugs, such as warfarin, the [place] [employer] 2012 Guideline recommends a therapeutic INR range of 2 to 3 (target INR of 2.5). This recommendation includes high-risk patients with antiphospholipid syndrome with previous arterial or venous thromboembolism, current-generation mechanical or bioprosthetic aortic heart valve replacement. Note: Patients with mechanical aortic valve replacement and additional risk factors for thromboembolic events (atrial fibrillation, previous thromboembolism, LV dysfunction, hypercoagulable conditions) or an older generation mechanical AVR (i.e., ball in-Cage) or any mechanical MVR should have a INR therapeutic range of 2.5 to 3.5 (target INR of 3). Mellisa GH, et al. Chest 2012, 141:7S-47S Caro RA, et al. [facility] 2017, 70: 252-289 Performed By: #### 3 4528-0, 30831-2 ####[facility]ORATORYCLIA [id number] [place] [address] PT Coag (PPP) [Time] 11.4 s Normal 9.7-13.0 [facility] Comment on above: Order Comment: Speci men Type: BLOOD SPECIMEN Performed By: #### 3 4528-0, 11886-0 ####[facility]ORATORYCLIA [id number] [place] [address] THERAPY NTon 03-12-2020 THERAPY NT HNO ID: [id number] Author: Osmar (Ccc-Traffic Reporter) Elli [facility]OW [facility]NAGER Service: Speech/Swallow Author Type: Speech Language Pathologist Type: Therapy (PT/OT/Speech/Resp) Filed: 03/12/2020 4:30 PM Note Text: Speech Therapy Treatment SERVICE DATE: 03/12/2020 SERVICE TIME: 1500 to 1530 ROOM: [place] [address] IMPRESSION: Patient demonstrates?oropharyngeal? dysphagia which is negatively impacting his/her ability to effectively maintain adequate nutrition and hydration and/or airway safety. Patient demonstrates dysarthria and left neglect?which is negatively impacting the patient's ability to effectively communicate basic ADL medical and social wants/needs with familiar and unfamiliar communication partners. ? Diet Recommendations: NPO with alternative means of nutrition/hydration/medicat ion Please order:? Instrumentation: Modified Barium Swallow Study ? Swallowing Precautions Recommendations: Rigid Oral Hygiene ? Nursing Recommendations:?See swallow guide posted in patients room;Reinforce use of swallowing strategies;Reinforce use of communication strategies: Encourage left sided awareness Recommended Discharge Disposition: Acute Rehab Justification for Recommended Discharge Disposition: Patient can tolerate 3 hours of therapy per day;Willing to participate;Medically complex;Good sitting tolerance;Motivated [facility] There is a Corpak tube coursing below the diaphragm. ?The Corpak tube is Reason for Hospital Admission: Stroke Rehabilitation Precautions: Aspiration Precautions;Dysphagia;Cogni tive Linguistics Deficits;Communication Deficits;NPO;Visual Deficits;Isolation;Diabetic Isolation Type: Contact/Droplet(eyewear) NPO Precautions: Small Bore Feeding Tube Reason for Speech Therapy Consult: Stroke: assess swallowing and speech/cognition Relevant Past Medical History: Anxiety, Depression, DM, Fatigue, HTN, Morbid obesity, Panic state as acute reaction to stress, sleep disorder, Stroke, DM Response to Therapy Interventions: Aspiration Risk, Good Participation in activities, Multiple medical concerns, Respiratory Deficits Speech Therapy Problem List: Dysphagia;Cognitive-Linguis tic Impairment;Dysarthria Patient Report: That was a bad experience. Current Status Current Feeding Method: Small Bore Feeding Tube Current Diet Textures: NPO Speech-Language, Cognitive Assessment Speech remains dysarthric Instructed to over exaggerated speech to improve intelligibility Completed overarticulation tasks with 14/20 accuracy Completed oral motor tasks Lingual strength/ROM Labial strength/ROM Improved left sided awareness today Able to maintain eye contact at midline for 2 minutes x5 Attended to the left side x5 this date Gaze still fixed to the right without cueing Completed left neglect tasks with able to find the letter "G" in various columns on a paper - only able to find the "G" on the right furthest 2 columns Speech Therapy to follow to improve cognitive-communication Swallow Assessment Consistencies Tested: Mildly Thick Liquids IDDSI Level 2 (Cross Anchor Thick), Puree Patient with improved alertness today Unable to self feed, in restraints Trialed mildly thick (nectar thick) liquids via spoon: no cough present this date Trialed straw: +cough immediate after swallow Trialed puree: no overt clinical signs or symptoms of aspiration Weak hyo-laryngeal movement Patient still with signs or symptoms of aspiration but swallowing is improving Recommend continue NPO status + Modified Barium Swallow Study to further assess swallowing function Speech Therapy to follow for dysphagia management Functional Communication Measure (FCM) Current FCM Level: Swallowing Level;Motor Speech;Attention FCM Swallowing Level: 1 FCM Attention Level: 1 FCM Motor Speech Level: 3 Patient /Caregiver Goals: Eat/Drink Without Restrictions;Improve Cognition;Improve Communication Goals for Plan of Care: Swallowing Goals: Patient will participate in swallow reassessment to determine safety of diet vs instrumentation vs alternate means of hydration/nutrition.?- goal met and new goal established 03/12/2020 Patient will participate in a Modified Barium Swallow Study (MBS) to thoroughly evaluate the oral and pharyngeal phase of the swallow, which cannot be substantiated through a clinical swallowing evaluation only. Through further diagnostic testing a definitive diagnosis/identification of the patient's current swallowing function and recommended treatment plan can be established. ? Therapeutic Tasks: Lingual/Pharyngeal/Laryngea l strengthening tasks to improve swallowing function??- see above 03/12/2020 ? COGNITION: ?Patient will demonstrate knowledge of taught compensatory strategies for functional cognitive-linguistic skills Cognitive Goals: Patient will improve visual?left?scanning given maximal?cues to 25% accuracy so that the patient may demonstrate general awareness of surroundings for personal safety. ?- see above 03/12/2020 ? SPEECH / LANGUAGE: ?Patient will demonstrate knowledge of taught compensatory strategies for functional communication Speech Goals: Patient will improve speech intelligibility at the?word?level to 60% intelligibility given?maximal?cues so that the patient can functionally communicate with caregivers. Patient?will demonstrate adequate return of knowledge of all compensatory strategies/instruction to effectively assist the patient in immediate speech production skills. ?- see above 03/12/2020 Progress Toward Goals: Progressing as expected Speech Rehab Potential: Good Patient will be discontinued from speech therapy when no further skilled needs are identified in this setting. 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;Dysarthria following cerebral infarction;Dysphagia following cerebral infarction Interventions Provided: Dysphagia Therapy (60693);Speech Therapy (19852) $ Dysphagia Therapy (33872) Billed Units: 1 unit $ Speech Therapy (38614) Billed Units: 1 unit Training and education provided in: Swallowing Strategies, Dysphagia Management, Dietary Consistencies, Motor Speech Skills(Left sided awareness) The following therapeutic skills were used:: Verbal cuing, Tactile cuing, Repetitive task learning, Instruction in self-monitoring / self-assessment Total Treatment Time (minutes): 30 Home Environment Prior Functional Level: Within Functional Limits Patient Lives With: Self/Alone Assistance Available: multimedia services coordinator Prior Swallowing Function/Diet Textures: Regular Consistency;Thin Liquids IDDSI Level 0 Please see discipline specific clinical documentation flowsheet for complete details for this therapy evaluation/treatment. SIGNATURE: Osmar Calloway [facility] PATIENT NAME: Lisa Shirley DATE: March 12, 2020 TIME: 4:25 PM Normal [facility] XR CHEST 1V FRONTALon 2019 XR CHEST 1V FRONTAL Final Report DATE OF EXAM: Mar 12 2020 3:37PM AKX [id number] - XR CHEST 1V FRONTAL / PROCEDURE REASON: Evaluate tube, line or lead position Physician Interpretation EXAMINATION: CHEST RADIOGRAPH (SINGLE VIEW AP OR PA) CLINICAL HISTORY: Evaluate tube, line or lead position , right arm PICC line MQ: XC1_5 Comparison: Chest x-ray 03/10/2020 RESULT: Lines, tubes, and devices: Interval placement of a right arm PICC line with tip profiling the distal superior vena cava. There is a Corpak tube coursing below the diaphragm. The Corpak tube is looped overlapping the mandible, this may be external to the patient or may be coiled in the patient's mouth or throat. Lungs and pleura: No consolidation. No lung mass. No pleural effusion. No pneumothorax. Cardiomediastinal silhouette: Normal cardiomediastinal silhouette. Other: Osseous structures are unremarkable. IMPRESSION: Right arm PICC line with tip profiling distal superior vena cava. There is a Corpak tube coursing below the diaphragm. The Corpak tube is looped overlapping the mandible, this may be external to the patient or may be coiled in the patient's mouth or throat. Please correlate clinically. Smalltalk Developer: TENISHA Transcribe Date/Time: Mar 12 2020 3:39P Dictated by : J LUIS GAYLE MD This examination was interpreted and the report reviewed and electronically signed by: J LUIS GAYLE MD on Mar 12 2020 3:42PM EST Normal [facility] CBC W Auto Diff [place] 2019 Basophils (Bld) [#/Vol] 10*3/uL Normal <0.11 [facility] Comment on above: Order Comment: Speci men Type: BLOOD SPECIMEN Performed By: #### 5 8410-2 #### [facility] CLIA [id number] [address] [facility] [place] [address] [place] Basophils/100 WBC (Bld) 0.1 % Normal [facility] Comment on above: Order Comment: Speci men Type: BLOOD SPECIMEN Performed By: #### 5 8410-2 #### [facility] CLIA [id number] [address] [facility] [address] [place] Differential cell count method Nom (Bld) Auto Normal [facility] Comment on above: Order Comment: Speci men Type: BLOOD SPECIMEN Performed By: #### 5 8410-2 #### [facility] CLIA [id number] [address] [facility] [place] [address] [place] Eosinophils (Bld) [#/Vol] 10*3/uL Normal <0.46 [facility] Comment on above: Order Comment: Speci men Type: BLOOD SPECIMEN Performed By: #### 5 8410-2 #### [facility] CLIA [id number] [address] [facility] [place] [address] [place] Eosinophils/100 WBC (Bld) 0.0 % Normal [facility] Comment on above: Order Comment: Speci men Type: BLOOD SPECIMEN Performed By: #### 5 8410-2 #### [facility] CLIA [id number] [address] [facility] [place] [address] [place] Erythrocyte distribution width (RBC) [Ratio] 12.9 % Normal 11.5-15.0 [facility] Comment on above: Order Comment: Speci men Type: BLOOD SPECIMEN Performed By: #### 5 8410-2 #### [facility] CLIA [id number] [address] [place] [address] [facility] Hematocrit (Bld) [Volume fraction] 35.8 % Low 36.0-46.0 [facility] Comment on above: Order Comment: Speci men Type: BLOOD SPECIMEN Performed By: #### 5 8410-2 #### [facility] CLIA [id number] [address] [place] [address] [facility] Hemoglobin (Bld) [Mass/Vol] 12.2 g/dL Normal 11.5-15.5 [facility] Comment on above: Order Comment: Speci men Type: BLOOD SPECIMEN Performed By: #### 5 8410-2 #### [facility] CLIA [id number] [address] [place], [place] [id number] [place] [address] IMMATURE GRAN % 0.6 % Normal [facility] Comment on above: Order Comment: Speci men Type: BLOOD SPECIMEN Performed By: #### 5 8410-2 #### [facility] CLIA [id number] [address] [place], [place] [id number] [place] [address] IMMATURE GRAN ABS 0.06 k/uL Normal <0.10 [facility] Comment on above: Order Comment: Speci men Type: BLOOD SPECIMEN Performed By: #### 5 8410-2 #### [facility] CLIA [id number] [address] [place], [place] [address] [place] [address] Lymphocytes (Bld) [#/Vol] 1.51 10*3/uL Normal 1.00-4.00 [facility] Comment on above: Order Comment: Speci men Type: BLOOD SPECIMEN Performed By: #### 5 8410-2 #### [facility] CLIA [id number] [address] [place] [address] [facility] Lymphocytes/100 WBC (Bld) 15.3 % Normal [facility] Comment on above: Order Comment: Speci men Type: BLOOD SPECIMEN Performed By: #### 5 8410-2 #### [facility] CLIA [id number] [address] [place] [address] [place] MCH (RBC) [Entitic mass] 31.6 pg Normal 26.0-34.0 [facility] Comment on above: Order Comment: Speci men Type: BLOOD SPECIMEN Performed By: #### 5 8410-2 #### [facility] CLIA [id number] [address] [facility] [place] [address] [facility] MCHC (RBC) [Mass/Vol] 34.1 g/dL Normal 30.5-36.0 [facility] Comment on above: Order Comment: Speci men Type: BLOOD SPECIMEN Performed By: #### 5 8410-2 #### [facility] CLIA [id number] [address] [place] [address] [facility] MCV (RBC) [Entitic vol] 92.7 fL Normal 80.0-100.0 [facility] Comment on above: Order Comment: Speci men Type: BLOOD SPECIMEN Performed By: #### 5 8410-2 #### [facility] CLIA [id number] [address] [place] [address] [facility] [place] Monocytes (Bld) [#/Vol] 0.73 10*3/uL Normal <0.87 [facility] Comment on above: Order Comment: Speci men Type: BLOOD SPECIMEN Performed By: #### 5 8410-2 #### [facility] CLIA [id number] [address] [place] [address] [facility] Monocytes/100 WBC (Bld) 7.4 % Normal [facility] Comment on above: Order Comment: Speci men Type: BLOOD SPECIMEN Performed By: #### 5 8410-2 #### [facility] CLIA [id number] [address] [place] [address] [facility] [place] Neutrophils (Bld) [#/Vol] 7.56 10*3/uL High 1.45-7.50 [facility] Comment on above: Order Comment: Speci men Type: BLOOD SPECIMEN Performed By: #### 5 8410-2 #### [facility] CLIA [id number] [address] [facility] [place] [address] [facility] [place] Neutrophils/100 WBC (Bld) 76.6 % Normal [facility] Comment on above: Order Comment: Speci men Type: BLOOD SPECIMEN Performed By: #### 5 8410-2 #### [facility] CLIA [id number] [address] [facility] [place] [address] [facility] [place] Nucleated RBC (Bld) [#/Vol] 10*3/uL Normal <0.01 [facility] Comment on above: Order Comment: Speci men Type: BLOOD SPECIMEN Performed By: #### 5 8410-2 #### [facility] CLIA [id number] [address] [place] [address] [facility] [place] Nucleated RBC/100 WBC (Bld) [Ratio] 0.0 /100 WBC Normal 0.0 [facility] Comment on above: Order Comment: Speci men Type: BLOOD SPECIMEN Performed By: #### 5 8410-2 #### [facility] CLIA [id number] [address] [facility] [place] [address] [facility] [place] Platelet mean volume (Bld) [Entitic vol] 11.6 fL Normal 9.0-12.7 [facility] Comment on above: Order Comment: Speci men Type: BLOOD SPECIMEN Performed By: #### 5 8410-2 #### [facility] CLIA [id number] [address] [place] [address] [place] Platelets (Bld) [#/Vol] 244 10*3/uL Normal 150-400 [facility] Comment on above: Order Comment: Speci men Type: BLOOD SPECIMEN Performed By: #### 5 8410-2 #### [facility] CLIA [id number] [address] [place] [address] [place] RBC (Bld) [#/Vol] 3.86 10*6/uL Low 3.90-5.20 [facility] Comment on above: Order Comment: Speci men Type: BLOOD SPECIMEN Performed By: #### 5 8410-2 #### [facility] CLIA [id number] [address] [place] [address] [facility] [place] WBC (Bld) [#/Vol] 9.87 10*3/uL Normal 3.70-11.00 [facility] Comment on above: Order Comment: Speci men Type: BLOOD SPECIMEN Performed By: #### 5 8410-2 #### [facility] CLIA [id number] [address] [place] [address] [facility] NUTRITIONon 03-11-2020 NUTRITION HNO ID: [id number] Author: Tyra Rios) DANIKA Gallardo Service: Nutrition Therapy Author Type: Registered Dietitian Type: Nutrition Filed: 03/11/2020 12:30 PM Note Text: NUTRITION THERAPY PROGRESS NOTE SERVICE DATE: 03/11/2020 SERVICE TIME: 12:15 Nutrition Assessment: Recommended Malnutrition Diagnosis: No Malnutrition Identified (03/09/20 1118 : Ann (Danika) DANIKA Friend) Estimated kilocalorie needs: 1480 - 1780 Calorie Calculation Method: 25-30 kcals/kg Estimated protein needs (grams): 71 - 90 Grams protein determined by: 1.2-1.5 g/kg;[place] Body Weight Care Plan: Enteral Nutrition Tube Feeding Formula Type: Isosource 1.5 Goal Rate (mL/hr x hours): 42 mL/hr x 24 hours Water Flush Volume (mL x frequency: 150 mL 6x/day Total provides 1008 mL product: 1512 kcal, 69 grams protein, 1670 mL free water daily Orders written and provider collaborated with: Dr. Regalado Monitor and Evaluation: Meet greater than 75% of estimated needs;Monitor tolerance to tube feeding;Monitor fluid/electrolyte balance;Monitor bowel function;Monitor labs, I/Os, vital signs, weight Interval History: Transferred out of ICU 03/10. ST continues to recommend NPO. Ortho following r/t ankle fx. Anthropometrics: Height: 167.6 cm (5' 6") Weight: 108 kg (238 lb 3.2 oz) Dosing Weight: 59.3 kg (130 lb 11.7 oz) Usual Weight: 96.3 kg (212 lb 4.9 oz) Body mass index is 38.45 kg/m?. Obese Weight change percentage over time: + wt gain Intake History: Current Intake: Greater than 75% estimated energy needs over: 2 days via TF's. Paged by RN with concern patient is not getting enough fluid. Note IV fluids discontinued, discussed adding flush with , adjusted TF order. Current Diet: DIET TUBE FEED - CONTIN (NO TRAY) MNT Billing Type: Re-assess/15 min 1 unit SIGNATURE: Tyra Gallardo RD PATIENT NAME: Lisa Shirley DATE: March 11, 2020 TIME: 12:15 PM PAGER: [phone] [facility] PROGRESSon 03-11-2020 PROGRESS HNO ID: [id number] Author: Maite Regalado Service: Hospital Medicine Author Type: Physician Type: Progress Notes Filed: 03/11/2020 9:29 PM Note Text: DEPARTMENT OF HOSPITAL MEDICINE [employer] PROGRESS NOTE- HOSPITAL DAY 3 SERVICE DATE: 03/11/2020 9:16 PM Hospital Medicine/Primary Attending: Maite Regalado MD CHIEF COMPLAINT: Acute right MCA stroke (HCC) OVERNIGHT EVENTS: Transferred out of ICU INTERVAL HISTORY OF PRESENT ILLNESS: Patient noted to have had a stroke complicated by fall with trimalleolar ankle fracture of left leg, and found down in home with mild rhabdomyolysis. Also noted to have DKA, and tested positive for COVID here after negative rapid test at [facility]. Still on Corpak feeding. Patient with moderate pain, still significant dysarthria, left hemiparesis. On remdesivir and decadron for COVID. Off insulin drip now Patient Vitals for the past 24 hrs: BP Temp Temp src Pulse Resp SpO2 Weight 03/11/20 2113 172/93 36.9 ?C (98.4 ?F) Oral 73 18 95 % ? 03/11/20 1747 147/91 ? 03/11/20 1449 172/104 37.3 ?C (99.1 ?F) Oral 83 18 96 % ? 03/11/20 1100 160/99 37.3 ?C (99.1 ?F) Oral 85 16 95 % ? 03/11/20 0900 ? 108 kg (238 lb 3.2 oz) 03/11/20 0800 173/86 37 ?C (98.6 ?F) Oral 82 16 98 % ? 03/11/20 0600 187/99 ? 03/11/20 0307 178/84 37 ?C (98.6 ?F) Axillary 84 18 98 % ? 03/10/20 2345 184/84 37.3 ?C (99.1 ?F) Axillary 89 18 96 % ? 03/10/20 2224 ? ? ? 91 ? ? ? 03/10/20 2154 186/85 ? Temp (24hrs), Av.1 ?C (98.8 ?F), Min:36.9 ?C (98.4 ?F), Max:37.3 ?C (99.1 ?F) Recent Labs 03/11/20 1738 03/11/20 1110 03/11/20 0603 03/10/20 2354 03/10/20 1730 03/10/20 1150 03/10/20 0545 03/10/20 0206 03/09/20 2033 03/09/20 1847 03/09/20 1733 03/09/20 1550 03/09/20 1456 03/09/20 1400 03/09/20 1254 03/09/20 1147 03/09/20 1059 03/09/20 0952 03/09/20 0845 03/09/20 0800 03/09/20 0620 03/09/20 0504 03/09/20 0304 03/09/20 0204 03/09/20 0111 03/09/20 0005 03/08/20 2206 PCGLUCOSE 369* 221* 264* 284* 346* 208* 271* 332* 216* 232* 209* 212* 201* 153* 98 128* 163* 192* 186* 197* 158* 167* 181* 225* 301* 377* 410* REVIEW OF SYSTEMS GENERAL: Positive for malaise HEENT: SEE HPI NECK: No pain at central line site right neck RESPIRATORY: Positive for non-productive cough CARDIOVASCULAR: Negative for chest pain, leg swelling and palpitations GI: Negative for abdominal discomfort, blood in stools or black stools : Cortes in place MUSCULOSKELETAL: See HPI SKIN: Negative NEURO: SEE HPI PHYSICAL EXAM: GENERAL: Alert, Mild Distress, Cooperative SKIN: Full exam not able to be completed at this time. Right neck site without erythema, bandage not disturbed NECK: No jugulovenous distention, No carotid bruits, Carotid pulse normal contour, Supple LUNGS: Positive findings: diminished breath sounds bibasilar CARDIAC: Normal S1 and S2; no rubs, murmurs, or gallops ABDOMEN: Abdomen soft, non-tender, BS normal, No masses or organomegaly EXTREMITIES: left lower leg in splint and wrapped, not disturbed. Obvious deformity of left ankle inversion NEURO: Dysarthria, left leg/arm hemiparesis ASSESSMENT AND PLAN Principal Problem: Acute right MCA stroke (HCC) POA: Yes Assessment AND Plan: No tPA or NIL indicated, now stable out of ICU. Rehab will be difficult with fracture and no operative plans for now Active Problems: Respiratory tract infection due to COVID-19 virus POA: Yes Assessment AND Plan: continue decadron and remdesivir, currently stable on room air Elevated troponin POA: Yes Assessment AND Plan: Mild, no ACS or WI suspected Closed left ankle fracture POA: Yes Assessment AND Plan: Nonoperative management at this time, and will defer timing of future surgery to orthopedics Acute kidney injury superimposed on chronic kidney disease (HCC) POA: Yes Assessment AND Plan: Continue IVF, Cr has been variable and not too far above baseline. Essential hypertension POA: Yes Assessment AND Plan: Poorly controlled, will start Coreg, no need for permissive HTN after 48 hours Type 2 diabetes mellitus with diabetic neuropathy, without long-term current use of insulin (HCC) POA: Yes Assessment AND Plan: Monitor closely, SSI, management per endocrine Dysphagia POA: Yes Assessment AND Plan: from CVA, currently on corpak but continue speech therapy and will feed if cleared Chronic kidney disease, stage 3, mod decreased GFR POA: Yes Assessment AND Plan: not at baseline Resolved Problems: Rhabdomyolysis POA: Yes Diabetic ketoacidosis without coma associated with type 2 diabetes mellitus (HCC) POA: Yes CODE STATUS: Full PLANNED DISPOSITION: Extended Care Facility Total time 30 minutes during this encounter, including chart review, discussion with nursing staff and/or other providers, documentation, order filler, and [id number] time with patient. Diagnostic tests reviewed for today's visit: Most recent labs and imaging results. Most recent EKG TELEMETRY: NSR LABS CBC: Recent Labs 03/11/20 0842 WBC 9.87 HB 12.2 PLT 244 CMP: Recent Labs 03/10/20 1117 03/10/20 0539 NA -- 139 K -- 3.8 CHLOR -- 104 CO2 -- 23 BUN -- 26* CREAT -- 1.23* GLUC -- 271* CA -- 8.8 AST 25 -- ALT 21 -- ALKPHOS 64 -- Plan of care discussed with: Provider, RN, Patient MEDICATIONS: Current Facility-Administered Medications Medication Dose Route Frequency - docusate 100 mg oral liquid (DIOCTO, COLACE) 100 mg ORAL/FEEDING TUBE BID - bisacodyl 10 mg suppository (DULCOLAX) 10 mg RECTAL DAILY PRN - ondansetron (PF) 4 mg injection (ZOFRAN) 4 mg INTRAVENOUS q 4 H PRN - heparin 5,000 Units injection 5,000 Units SUBCUTANEOUS q 8 H - acetaminophen 650 mg tab(s) (TYLENOL) 650 mg ORAL/FEEDING TUBE q 4 H PRN Or - acetaminophen 650 mg CUP (TYLENOL) 650 mg ORAL/FEEDING TUBE q 4 H PRN Or - acetaminophen 650 mg suppository (TYLENOL) 650 mg RECTAL q 4 H PRN - fentaNYL 50 mcg/mL 25 mcg injection (SUBLIMAZE) 25 mcg INTRAVENOUS q 2 H PRN - miconazole 2 % 1 application topical powder (LOTRIMIN AF, DESENEX) 1 application TOPICAL BID - atorvastatin 80 mg tab(s) (LIPITOR) 80 mg ORAL/FEEDING TUBE AT BEDTIME - insulin NPH human 12 Units injection pen (intermediate acting) (NovoLIN N, HumuLIN N) 12 Units SUBCUTANEOUS BID - insulin regular human injection (short acting) (NovoLIN R,HumuLIN R) SUBCUTANEOUS q 6 H - insulin regular human 5 Units injection (short acting) (NovoLIN R,HumuLIN R) 5 Units SUBCUTANEOUS q 6 H - dextrose 40 % 15 g 15 g ORAL PRN Or - glucagon 1 mg injection 1 mg INTRAMUSCULAR PRN Or - dextrose 50% in water 25 mL syringe 12.5 g INTRAVENOUS PRN - aspirin 81 mg chewable tab(s) 81 mg ORAL/FEEDING TUBE DAILY - remdesivir 100 mg in NaCl 0.9% 250 mL 100 mg INTRAVENOUS q 24 HR And - sodium chloride 0.9 % (flush) 30 mL (BD POSIFLUSH) 30 mL INTRAVENOUS q 24 HR - Dexamethasone sodium phosphate (PF) 6 mg injection (DECADRON) 6 mg INTRAVENOUS q 24 H - diltiazem 60 mg tab(s) (CARDIZEM) 60 mg ORAL/FEEDING TUBE q 6 H - hydrALAZINE 25 mg tab(s) (APRESOLINE) 25 mg ORAL/FEEDING TUBE q 6 H PRN - carvedilol 6.25 mg tab(s) (COREG) 6.25 mg ORAL/FEEDING TUBE q 12 HR - lidocaine 10 mg/mL (1 %) 10-20 mg injection (XYLOCAINE) 1-2 mL INTRADERMAL ONCE - sodium chloride 0.9 % (flush) 10 mL (BD POSIFLUSH) 10 mL INTRAVENOUS q 12 H - sodium chloride 0.9 % (flush) 20 mL (BD POSIFLUSH) 20 mL INTRAVENOUS PRN Medications Discontinued During This Encounter Medication Reason - insulin regular human 100 Units in NaCl 0.9% 100 mL - ICU NOMOGRAM - insulin regular human iv bolus 2-10 Units - dextrose 50% in water 25-50 mL syringe - NaCl 0.45% iv infusion - dextrose 5% in NaCl 0.45% iv infusion - ALPRAZolam (XANAX) 0.5 mg tablet - piperacillin-tazobactam iv piggyback 3.375 g in dextrose (iso-osmotic) 50 mL (ZOSYN) - vancomycin iv piggyback 1.5 g in D5W 250 mL (VANCOCIN) - vancomycin dosing and monitoring per pharmacy - famotidine 20 mg injection (PEPCID) - dextrose 5% in NaCl 0.45% with 20 mEq/L KCl iv infusion - insulin regular human 100 Units in NaCl 0.9% 100 mL - ICU NOMOGRAM - dextrose 5% in NaCl 0.45% with 20 mEq/L KCl iv infusion - insulin regular human 100 Units in NaCl 0.9% 100 mL - ICU NOMOGRAM - dextrose 5% in NaCl 0.45% iv infusion - dextrose 40 % 15 g - glucagon 1 mg injection - dextrose 50% in water 25 mL syringe - aspirin 81 mg tab(s) - sodium chloride 0.9 % (flush) 3-5 mL (BD POSIFLUSH) - sodium chloride 0.9 % (flush) 10 mL (BD POSIFLUSH) - sodium chloride 0.9 % (flush) 20 mL (BD POSIFLUSH) - labetalol 10 mg injection syringe (NORMODYNE) - potassium chloride ER 20-40 mEq tab(s) (K-DUR, KLOR-CON) - potassium chloride iv piggyback 20 mEq/100 mL - magnesium sulfate in sterile water 2 g in sterile water 50 ml - sodium phosphate 45 mmol in NaCl 0.9% 250 mL - calcium gluconate 4 g in NaCl 0.9% 250 mL - perflutren lipid microspheres 1.1 mg/mL 1.3 mL injection (DEFINITY) - hydrALAZINE 10 mg tab(s) (APRESOLINE) SIGNATURE: Maite Regalado MD PATIENT NAME: Lisa Shirley DATE: March 11, 2020 TIME: 9:16 PM PAGER #: Primary Service NIGHT AND WEEKEND COVERAGE: After 7pm please page [phone] [facility] PROGRESS HNO ID: [id number] Author: Ortega Seya Service: Infectious Disease Author Type: Physician Type: Progress Notes Filed: 03/11/2020 1:07 PM Note Text: 1:06 PM Afebrile Continue remdesivir for 5 day course and decadron for 10. Monitor daily LFTs and renal function while on the remdesivir. ID sign off. Normal [facility] PROGRESS HNO ID: [id number] Author: Leland Herrera Service: Orthopaedic Surgery Author Type: Physician Type: Progress Notes Filed: 03/11/2020 11:40 AM Note Text: Inpatient Daily Progress Note ORTHO STAFF: Patient seen and examined. Agree with resident assessment and plan noted below, except where changes made. Discussed ankle fracture in detail with patient, with recommendation for surgical stabilization when medically appropriate for planned intubation. Contacted son via provided phone number and discussed same. Answered all questions. Leland Herrera MD Assessment and Plan 74 year old female with left trimalleolar fracture. ? - Medical management per primary - Pain control per primary - Ice/elevate LLE - NWB LLE - Splint in place, maintain, keep dry, clean and intact - Appreciate medicine and infectious disease treatment - Due to COVID19 and stable reduction of left trimalleolar ankle fracture, will hold off on surgery at this time. Definitive surgical plan TBD Interval History: Chart reviewed. Patient transferred from NICU yesterday. Dedesivir and decadron initiated per infectious disease. Physical Examination Vitals BP 173/86 Pulse 82 Temp 37 ?C (98.6 ?F) (Oral) Resp 16 Ht 167.6 cm (5' 6") Wt 108 kg (238 lb 3.2 oz) SpO2 98% BMI 38.45 kg/m? The patient was not seen and evaluated in person secondary to COVID19. Virtual visit conducted. Labs Recent Labs 03/10/20 1117 03/10/20 0539 03/09/20 1005 03/09/20 0328 03/09/20 0328 03/09/20 0327 03/09/20 0313 03/08/20 2246 NA -- 139 138 < > -- -- 142 139 139 K -- 3.8 3.6* < > -- -- 3.4* 4.2 4.2 CHLOR -- 104 104 < > -- -- 105 103 103 CO2 -- 23 23 < > -- -- 23 20* 20* BUN -- 26* 24* < > -- -- 25* 25* 25* CREAT -- 1.23* 1.10* < > -- -- 1.13* 1.18* 1.18* GLUC -- 271* 175* < > -- -- 154* 398* 398* ANION -- 12 11 < > -- -- 14 16 16 CA -- 8.8 8.9 < > -- -- 9.1 8.9 8.9 MG -- -- -- -- 1.9 -- -- 2.0 AST 25 -- -- -- -- -- -- 24 ALT 21 -- -- -- -- -- -- 18 ALKPHOS 64 -- -- -- -- -- -- 87 TBILI 0.4 -- -- -- -- -- -- 0.8 WBC -- 10.64 -- -- -- -- 14.50* 14.71* HB -- 12.7 -- -- -- -- 12.8 13.9 HCT -- 36.6 -- -- -- -- 39.0 41.3 PLT -- 207 -- -- -- -- 249 282 LACT -- -- -- -- -- 1.8 -- 2.0 INR 1.0 -- -- -- -- -- -- 1.1 < > = values in this interval not displayed. Imaging No new imaging Tonie Bryan MD Orthopaedic Surgery March 11, 2020 Normal [facility] THERAPY NTon 03-11-2020 THERAPY NT HNO ID: [id number] Author: Evon Garcia OT Service: Occupational Therapy Author Type: Occupational Therapist Type: Therapy (PT/OT/Speech/Resp) Filed: 03/11/2020 9:44 AM Note Text: Occupational Therapy Evaluation SERVICE DATE: 03/11/2020 SERVICE TIME: 844 to 914 ROOM: [place] [address] Recommended Discharge Disposition: Acute Rehab Recommended Discharge Disposition Comments: Acute rehab to increase strength, activity tolerance, visual deficits, and independence with ADLs and functional mobility to return to independent baseline Justification For Post Acute Needs: Motivated;Willing to participate;Anticipate patient will tolerate 3 hours of daily therapy at the time of admission to post-acute setting OT 6 Clicks Score: 11 Precautions/Activity Restrictions: Fall Risk;Lines/Tubes/Drains;Ramon ght Bearing Restrictions Precaution/Activity Restriction Comments: Covid + Isolation Type: Contact/Droplet(eyewear) Extremity With Weight Bearing Restricted: Left Lower Extremity Left Lower Extremity Weight Bearing Status: NWB Current Hospital Course: Found down at home, 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 and left tri-malleolar fracture, and now COVID positive Reason for Hospital Admission: Stroke Relevant Past Medical History: CAD, DM, CKD stage 3, chronic LBP, major depressive disorder Response to Therapy Interventions: Low activity tolerance, Requires additional time to complete activities, Requires encouragement to complete activities Continue skilled needs due to: Functional impairment, Safety concerns, Continued monitoring of vital signs during mobility required Occupational Therapy Problem List: Functional Mobility Impairment;Decreased Strength;Impaired Visual Motor Skills;Sensory Deficit;Decreased Range Of Motion;Decreased Activity Tolerance;Impaired Self Care;Safety Deficits;Pain Cognition/Communication Deficits Communication Deficits: Expressive Deficits Responsiveness: Alert Follows Commands: 1-step Commands, Cueing Needed Cueing to Follow Commands: Minimum Executive Function Deficits: Safety Awareness, Problem Solving, Insight to Deficits, Judgement, Sequencing, Motor Planning Sequencing Deficit: Minimal impairment Judgement Deficit: Moderate impairment Insight to Deficits: Moderate impairment Problem Solving Deficit: Moderate impairment Motor Planning Deficit: Minimal impairment Safety Awareness Deficit: Moderate impairment Treatment Interventions: Self Care / Home Management;Functional Mobility Training;Strengthening;Neur omuscular Re-education;Education;Ener gy Conservation Training Plan for next visit: Bathing training, Chair/commode transfer training, Dressing training, Cognition intervention, Standing tolerance, Standing balance, Vision training, Sitting balance, Grooming training, Energy conservation, Exercise instruction/handout(Provide Covid folder) Home Environment Patient Lives With: Self/Alone Assistance Available: None Entry To Home: Stairs;With Rail Number Of Stairs Into Home: 4 Number Of Stairs To Bed/Bath: 0 Tub/Shower Type: Walk in Laundry: Minimally completes Equipment Owned: [facility] Bars-Shower Prior Functional Level: (driving, activity limited by LBP) Prior Functional Level Comments: 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 d/t 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 pain Patient Report: Pt reports fatigue while sitting at EOB CURRENT FUNCTIONAL STATUS: Most recent performance Current Activities of Daily Living Assist Level Additional Information Feeding Total Assistance(Corpac ) Grooming Moderate Assistance Bathing Upper Body Maximal Assistance Bathing Lower Body Maximal Assistance Dressing Upper Body Moderate Assistance Dressing Lower Body Maximal Assistance Toileting Maximal Assistance Functional Mobility Assist Level Additional Information Rolling Supine to Sit Moderate Assistance;Additional Information Assist x2; support with LEs and trunk Sit to Supine Moderate Assistance;Additional Information Assist x2; support at LEs and trunk Scooting Sit to Stand Additional Information Pt unsafe to stand at this time due to decreased activity tolerance and NWB precautions Stand to Sit Bed to Chair Toilet/Commode Functional Mobility Blank murcia indicate activity not attempted Light Touch/Deep Pressure Deficit: L side Body Awareness Deficit: L side Vision Deficits: Visual Neglect(L side ) Range of Motion: ROM Limitation Comments ROM Limitation Comments: L UE shoulder flexion ~140* Strength: Upper Extremity Comments Right Upper Extremity Strength Comments: 3/5 throughout Left Upper Extremity Strength Comments: 3-/5 grossly throughout Vital Signs Pre Assessment: SpO2 Pre SpO2: 99 Intra Assessment 1: SpO2 Intra 1 Intra SpO2 1: 88 Post Assessment: SpO2 Post Post SpO2: 99 Balance: Dynamic Sitting;Static Sitting Static Sitting Balance: Fair Patient able to maintain balance with handhold support, may require occasional minimal assistance Dynamic Sitting Balance: Fair Patient accepts minimal challenge, able to maintain balance while turning head/trunk Activity Tolerance: Sitting Activity Sitting Activity: Functional reaching at EOB to increase sitting balance Sitting Activity Tolerance (in minutes): 8 Learning/Educational Needs: Functional Activities/Mobility;Safety; Self Care Goals for Plan of Care: Patient /Caregiver Goals: Go To Rehab Able to perform HEP with: Verbal Cues Only(UE strengthening ) Grooming with: Minimal Assistance Upper Body Bathing with: Minimal Assistance Upper Body Dressing with: Minimal Assistance Lower Body Bathing with: Moderate Assistance Lower Body Dressing with: Moderate Assistance Chair Transfer with: Moderate Assistance Toilet Transfer with: Moderate Assistance(To BS ) Tolerate (minutes of functional activity): 10 Functional Activity with: Moderate Assistance Additional Goal 1: Pt will demo increased L sided awareness by attending to objects placed on L side with min verbal cues Additional Goal 2: Pt will demo increased actvity tolerance by completing ADL in stranding for 1 minute Additional Goal 3: Pt will demo increased cognition by scoring a 26/30 on the MoCA independently Demonstrate Competence With Education with: Verbal Cues Only Rehab Potential: Good Patient will be discontinued from Occupational Therapy when no further skilled needs are identified in this setting. PLAN: Treatment Frequency (times per week): 5(1-5) Current admission Plan of Care developed with: Patient TREATMENT INTERVENTIONS: Therapy Diagnosis: Reduced mobility-other;Decreased activities of daily living (ADL);Muscle Weakness (generalized) Interventions Provided: Evaluation $ Evaluation-High (93030) Billed Units: 1 unit Training AND education provided in: Bed mobility, Grooming tasks, Discharge planning, Positioning, Role of Occupational Therapy, Sitting balance to improve independence with ADLs/self-care The following therapeutic skills were used: Cues for sequencing/proper technique for activity, Assessment of tolerance including vitals response to activity, Activity dosing, Cuing verbal, Cuing tactile, Physical assist, Movement facilitation, Therapeutic use of self, Task analysis learning Total Treatment Time (minutes): 30 Please see discipline specific clinical documentation flowsheet for complete details for this therapy evaluation/treatment. SIGNATURE: Evon Garcia OT/Blue PATIENT NAME: Lisa Shirley DATE: March 11, 2020 TIME: 9:43 AM Normal [facility] THERAPY NT HNO ID: [id number] Author: Paulette (Pt) Neisha Service: Physical Therapy Author Type: Physical Therapist Type: Therapy (PT/OT/Speech/Resp) Filed: 03/11/2020 9:44 AM Note Text: Physical Therapy Evaluation SERVICE DATE: 03/11/2020 SERVICE TIME: 844 to 914 ROOM: [place] [address] Recommended Discharge Disposition: Acute Rehab Justification For Post Acute Needs: Anticipate patient will tolerate 3 hours of daily therapy at the time of admission to post-acute setting;Living the community premorbidly;Medically complex;Motivated;Willing to participate PT 6 Clicks Score: 9 Precautions/Activity Restrictions: Fall Risk;Lines/Tubes/Drains;Ramon ght Bearing Restrictions Precaution/Activity Restriction Comments: Covid + Isolation Type: Contact/Droplet(eyewear) Extremity With Weight Bearing Restricted: Left Lower Extremity Left Lower Extremity Weight Bearing Status: NWB Current Hospital Course: Found down at home, 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 and left tri-malleolar fracture, and now COVID positive Reason for Hospital Admission: Stroke Relevant Past Medical History: CAD, DM, CKD stage 3, chronic LBP, major depressive disorder Response to Therapy Interventions: Good participation in activities Continue skilled needs due to: Continued monitoring of vital signs during mobility required Physical Therapy Problem List: Decreased Activity Tolerance;Decreased Range Of Motion;Decreased Strength;Functional Mobility Impairment;Balance Impaired Treatment Interventions: Education;Energy Conservation Training;Functional Mobility Training;Balance Training;Neuromuscular Re-education Home Environment Patient Lives With: Self/Alone Assistance Available: None Entry To Home: Stairs;With Rail Number Of Stairs Into Home: 4 Number Of Stairs To Bed/Bath: 0 Tub/Shower Type: Walk in Laundry: Minimally completes Equipment Owned: [facility] Bars-Shower Prior Functional Level: (driving, activity limited by LBP) Prior Functional Level Comments: 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 d/t 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 pain Patient Report: Patient alert, aware that she had a stroke and left ankle fracture Range of Motion: WFL Except(Left ankle splinted due to fracture) Strength: WFL Except;Upper Extremity Comments;Lower Extremity Comments Right Upper Extremity Strength Comments: WFL Left Upper Extremity Strength Comments: grossly 3-/5 Right Lower Extremity Strength Comments: Grossly 3-/5 Left Lower Extremity Strength Comments: unable to SLR, gross 3-/5 Quality of Movement: Dysmetric(with reaching tasks) Vital Signs Pre Assessment: SpO2 Pre SpO2: 99 Intra Assessment 1: SpO2 Intra 1 Intra SpO2 1: 86(in sitting) CURRENT FUNCTIONAL STATUS: Most recent performance Current Functional Mobility Assist Level Additional Information Rolling Supine to Sit Moderate Assistance;Additional Information(x2) required assist to move both lower legs, unable to use right hand without cues Sit to Supine Moderate Assistance;Additional Information(x2) Requires cues to use trunk to help with return to supine Scooting Maximal Assistance Sit to Stand Additional Information unable at this time due to NWB left LE Stand to Sit Bed to Chair Toilet/Commode Gait Stairs Curb Step Car Transfer Blank murcia indicate activity not attempted Balance: Static Sitting Static Sitting Balance: Fair Patient able to maintain balance with handhold support, may require occasional minimal assistance Activity Tolerance: Sitting Activity Sitting Activity: O2 sats drop with sitting activity Sitting Activity Tolerance (in minutes): 8 JH-HLM: 3: Sit at edge of bed Learning/Educational Needs: Discharge Plan;Disease Process;Functional Activities/Mobility;Plan of Care;Respiratory Function;Stroke Education Goals for Plan of Care: Patient /Caregiver Goals: Go To Rehab Rolling with: Contact Guard Assistance Transfer supine to/from sit with: Contact Guard Assistance Transfer sit to/from stand with: Contact Guard Assistance Ambulate with: Minimal Assistance Distance: 5-10 feet NWB Left LE Device: Wheeled Walker Rehab Potential: Good Patient will be discontinued from Physical Therapy when no further skilled needs are identified in this setting. PLAN: Treatment Frequency (times per week): 5(2-4) Current admission Plan of Care developed with: Patient TREATMENT INTERVENTIONS: Therapy Diagnosis: Reduced mobility-other;Muscle Weakness (generalized);Difficulty walking-musculoskeletal Interventions Provided: Evaluation $ Evaluation-High (52929) Billed Units: 1 unit Patient was able to sit at edge of bed with support at first, then able to sit with trunk control. Able to do LAQ with verbal cues and trunk supported. Worked on neck ROM as patient hold gaze to right. Training AND education provided in: Anatomy and impact on deficits, Bed mobility, Discharge planning, Disease specific education The following therapeutic skills were used: Assessment of tolerance including vitals response to activity, Cues for sequencing/proper technique for activity, Cuing tactile, Cuing verbal, Cuing visual, Facilitation of joint range of motion, Physical assist, Muscle activation facilitation Total Treatment Time (minutes): 30 Please see discipline specific clinical documentation flowsheet for complete details for this therapy evaluation/treatment. SIGNATURE: Paulette Driver PT PATIENT NAME: Lisa Shirley DATE: March 11, 2020 TIME: 9:42 AM Normal [facility] HNO ID: [id number] Author: Jade Montemayor (Rt) Service: Radiology Author Type: Motor And Generator Brush Cutter Type: Allied Health Filed: 03/10/2020 11:47 AM Note Text: Radiology Service Progress Note PATIENT NAME: Lisa Shirley DATE OF SERVICE: March 10, 2020 TIME: 11:47 AM PATIENT IDENTITY VERIFICATION COMPLETED USING TWO (2) IDENTIFIERS: Name and Date of confirmed by patient verbally and Name and Date of confirmed by identification band. FALL SCREENING: Has the patient had 2 falls in the last year or 1 fall with injury or currently using an Ambulatory Assistive Device (Walker, Cane, Wheelchair, Crutches, etc.)? Inpatient: Screened on floor PATIENT GENDER DATA: Female. status: : No status: NO. PATIENT RELEVANT IMPLANT DATA REVIEWED: Not Applicable RADIOLOGY DEPARTMENT: Bone Density and General X-ray: Exam(s) Completed: Chest X-Ray PERIPHERAL IV DATA: Not applicable SIGNED BY: RT Monie March 10, 2020 11:47 AM [facility] ALLIED HEALTH HNO ID: [id number] Author: Jade Borden (Rt) Service: Radiology Author Type: Motor And Generator Brush Cutter Type: Allied Health Filed: 03/10/2020 5:10 AM Note Text: Radiology Service Progress Note PATIENT NAME: Lisa Shirley DATE OF SERVICE: March 10, 2020 TIME: 5:10 AM PATIENT IDENTITY VERIFICATION COMPLETED USING TWO (2) IDENTIFIERS: Name and Date of confirmed by patient verbally and Name and Date of confirmed by identification band. FALL SCREENING: Has the patient had 2 falls in the last year or 1 fall with injury or currently using an Ambulatory Assistive Device (Walker, Cane, Wheelchair, Crutches, etc.)? Inpatient: Screened on floor PATIENT GENDER DATA: Female. status: : No status: NO. PATIENT RELEVANT IMPLANT DATA REVIEWED: Not Applicable RADIOLOGY DEPARTMENT: CT; Exam(s) Completed: Brain PERIPHERAL IV DATA: Not applicable SIGNED BY: RT Suha March 10, 2020 5:10 AM Normal [facility] Bas Metab 2000 Pnl SerPlon 1 05-10-2019 Anion gap [Moles/Vol] 12 mmol/L Normal 9-18 [facility] Comment on above: Order Comment: Speci men Type: BLOOD SPECIMEN Performed By: #### 2 4321-2 ####[facility] LABORATORYCLIA [id number] [place] [address] Calcium [Mass/Vol] 8.8 mg/dL Normal 8.5-10.2 [facility] Comment on above: Order Comment: Speci men Type: BLOOD SPECIMEN Performed By: #### 2 4321-2 ####[facility] LABORATORYCLIA [id number] [place] [address] Chloride [Moles/Vol] 104 mmol/L Normal 97-105 [facility] Comment on above: Order Comment: Speci men Type: BLOOD SPECIMEN Performed By: #### 2 4321-2 ####[facility] LABORATORYCLIA [id number] [place] [address] CO2 [Moles/Vol] 23 mmol/L Normal 22-30 [facility] Comment on above: Order Comment: Speci men Type: BLOOD SPECIMEN Performed By: #### 2 4321-2 ####[facility] LABORATORYCLIA [id number] [place] [address] Creatinine [Mass/Vol] 1.23 mg/dL High 0.58-0.96 [facility] Comment on above: Order Comment: Speci men Type: BLOOD SPECIMEN Performed By: #### 2 4321-2 ####[facility] LABORATORYCLIA [id number] [place] [address] GFR/1.73 sq M.predicted MDRD (S/P/Bld) [Vol rate/Area] 52 mL/min/{1.73_m2} Normal [facility] Comment on above: Order Comment: Speci men Type: BLOOD SPECIMEN Result Comment: 43 eGFR (Estimated GFR) Units of measure: mL/min/1.73 meters squared eGFR is derived from the reexpressed MDRD Study equation using the following parameters: serum creatinine, age, gender and race. The creatinine assay has been calibrated to be traceable to IDMS. An eGFR <60 mL/min/1.73m2 for >3 months is consistent with chronic kidney disease. Refer to KDOQI guidelines for clinical interpretation. In patients with unstable renal function, e.g. those with acute kidney injury, the eGFR may not accurately reflect actual GFR. Performed By: #### 2 4321-2 ####[facility] LABORATORYCLIA [id number] [place] [address] Glucose [Mass/Vol] 271 mg/dL High 74-99 [facility] Comment on above: Order Comment: [facility] Type: BLOOD SPECIMEN Result Comment: The [place] Diabetes Association (ADA) provides guidance for cutoff values for fasting glucose and random glucose. The ADA defines fasting as no caloric intake for at least 8 hours. Fasting plasma glucose results between 100 to 125 mg/dL indicate increased risk for diabetes (prediabetes). Fasting plasma glucose results greater than or equal to 126 mg/dL meet the criteria for diagnosis of diabetes. In the absence of unequivocal hyperglycemia, results should be confirmed by repeat testing. In a patient with classic symptoms of hyperglycemia or hyperglycemic crisis, random plasma glucose results greater than or equal to 200 mg/dL meet the criteria for diagnosis of diabetes. Reference: Standards of Medical Care in Diabetes 2016, [place] [employer] Association. Diabetes Care. 2016.39(Suppl 1). Performed By: #### 2 4321-2 ####[facility] LABORATORYCLIA [id number] [place] [address] Potassium [Moles/Vol] 3.8 mmol/L Normal 3.7-5.1 [facility] Comment on above: Order Comment: Speci men Type: BLOOD SPECIMEN Performed By: #### 2 4321-2 ####[facility] LABORATORYCLIA [id number] [place] [address] Sodium [Moles/Vol] 139 mmol/L Normal 136-144 [facility] Comment on above: Order Comment: Speci men Type: BLOOD SPECIMEN Performed By: #### 2 4321-2 ####[facility] LABORATORYCLIA [id number] [place] [address] Urea nitrogen [Mass/Vol] 26 mg/dL High 7-21 [facility] Comment on above: Order Comment: Speci men Type: BLOOD SPECIMEN Performed By: #### 2 4321-2 ####[facility] LABORATORYCLIA [id number] [place] [address] CBC W Auto Diff B[place] 2019 Basophils (Bld) [#/Vol] 0.04 10*3/uL Normal <0.11 [facility] Comment on above: Order Comment: Speci men Type: BLOOD SPECIMEN Performed By: #### 5 8410-2 #### [facility] CLIA [id number] [address] [place] [address] [place] Basophils/100 WBC (Bld) 0.4 % Normal [facility] Comment on above: Order Comment: Speci men Type: BLOOD SPECIMEN Performed By: #### 5 8410-2 #### [facility] CLIA [id number] [address] [place] [address] [facility] [place] Differential cell count method Nom (Bld) Auto Normal [facility] Comment on above: Order Comment: Speci men Type: BLOOD SPECIMEN Performed By: #### 5 8410-2 #### [facility] CLIA [id number] [address] [facility] [place] [address] [facility] [place] Eosinophils (Bld) [#/Vol] 10*3/uL Normal <0.46 [facility] Comment on above: Order Comment: Speci men Type: BLOOD SPECIMEN Performed By: #### 5 8410-2 #### [facility] CLIA [id number] [address] [facility] [place] [address] [facility] [place] Eosinophils/100 WBC (Bld) 0.0 % Normal [facility] Comment on above: Order Comment: Speci men Type: BLOOD SPECIMEN Performed By: #### 5 8410-2 #### [facility] CLIA [id number] [address] [place] [address] [facility] Erythrocyte distribution width (RBC) [Ratio] 12.8 % Normal 11.5-15.0 [facility] Comment on above: Order Comment: Speci men Type: BLOOD SPECIMEN Performed By: #### 5 8410-2 #### [facility] CLIA [id number] [address] [facility] [place] [address] [facility] [place] Hematocrit (Bld) [Volume fraction] 36.6 % Normal 36.0-46.0 [facility] Comment on above: Order Comment: Speci men Type: BLOOD SPECIMEN Performed By: #### 5 8410-2 #### [facility] CLIA [id number] [address] [facility] [place] [address] [facility] [place] Hemoglobin (Bld) [Mass/Vol] 12.7 g/dL Normal 11.5-15.5 [facility] Comment on above: Order Comment: Speci men Type: BLOOD SPECIMEN Performed By: #### 5 8410-2 #### [facility] CLIA [id number] [address] [facility] [place] [address] [facility] [place] IMMATURE GRAN % 0.4 % Normal [facility] Comment on above: Order Comment: Speci men Type: BLOOD SPECIMEN Performed By: #### 5 8410-2 #### [facility] CLIA [id number] [address] [facility] [place] [address] [facility] IMMATURE GRAN ABS 0.04 k/uL Normal <0.10 [facility] Comment on above: Order Comment: Speci men Type: BLOOD SPECIMEN Performed By: #### 5 8410-2 #### [facility] CLIA [id number] [address] [place] [address] [facility] Lymphocytes (Bld) [#/Vol] 1.73 10*3/uL Normal 1.00-4.00 [facility] Comment on above: Order Comment: Speci men Type: BLOOD SPECIMEN Performed By: #### 5 8410-2 #### [facility] CLIA [id number] [address] [place] [address] [facility] Lymphocytes/100 WBC (Bld) 16.3 % Normal [facility] Comment on above: Order Comment: Speci men Type: BLOOD SPECIMEN Performed By: #### 5 8410-2 #### [facility] CLIA [id number] [address] [place] [address] [facility] [place] MCH (RBC) [Entitic mass] 31.2 pg Normal 26.0-34.0 [facility] Comment on above: Order Comment: Speci men Type: BLOOD SPECIMEN Performed By: #### 5 8410-2 #### [facility] CLIA [id number] [address] [place] [address] [facility] [place] MCHC (RBC) [Mass/Vol] 34.7 g/dL Normal 30.5-36.0 [facility] Comment on above: Order Comment: Speci men Type: BLOOD SPECIMEN Performed By: #### 5 8410-2 #### [facility] CLIA [id number] [address] [place] [address] [place] MCV (RBC) [Entitic vol] 89.9 fL Normal 80.0-100.0 [facility] Comment on above: Order Comment: Speci men Type: BLOOD SPECIMEN Performed By: #### 5 8410-2 #### [facility] CLIA [id number] [address] [facility] [place] [address] [place] Monocytes (Bld) [#/Vol] 0.78 10*3/uL Normal <0.87 [facility] Comment on above: Order Comment: Speci men Type: BLOOD SPECIMEN Performed By: #### 5 8410-2 #### [facility] CLIA [id number] [address] [facility] [place] [address] [place] Monocytes/100 WBC (Bld) 7.3 % Normal [facility] Comment on above: Order Comment: Speci men Type: BLOOD SPECIMEN Performed By: #### 5 8410-2 #### [facility] CLIA [id number] [address] [facility] [place] [address] [place] Neutrophils (Bld) [#/Vol] 8.05 10*3/uL High 1.45-7.50 [facility] Comment on above: Order Comment: Speci men Type: BLOOD SPECIMEN Performed By: #### 5 8410-2 #### [facility] CLIA [id number] [address] [facility] [place] [address] [place] Neutrophils/100 WBC (Bld) 75.6 % Normal [facility] Comment on above: Order Comment: Speci men Type: BLOOD SPECIMEN Performed By: #### 5 8410-2 #### [facility] CLIA [id number] [address] [facility] [place] [address] [place] Nucleated RBC (Bld) [#/Vol] 10*3/uL Normal <0.01 [facility] Comment on above: Order Comment: Speci men Type: BLOOD SPECIMEN Performed By: #### 5 8410-2 #### [facility] CLIA [id number] [address] [facility] [place] [address] [place] Nucleated RBC/100 WBC (Bld) [Ratio] 0.0 /100 WBC Normal 0.0 [facility] Comment on above: Order Comment: Speci men Type: BLOOD SPECIMEN Performed By: #### 5 8410-2 #### [facility] CLIA [id number] [address] [facility] [place] [address] [place] Platelet mean volume (Bld) [Entitic vol] 10.2 fL Normal 9.0-12.7 [facility] Comment on above: Order Comment: Speci men Type: BLOOD SPECIMEN Performed By: #### 5 8410-2 #### [facility] CLIA [id number] [address] [facility] [place] [address] [place] Platelets (Bld) [#/Vol] 207 10*3/uL Normal 150-400 [facility] Comment on above: Order Comment: Speci men Type: BLOOD SPECIMEN Performed By: #### 5 8410-2 #### [facility] CLIA [id number] [address] [place] [address] [place] RBC (Bld) [#/Vol] 4.07 10*6/uL Normal 3.90-5.20 [facility] Comment on above: Order Comment: Speci men Type: BLOOD SPECIMEN Performed By: #### 5 8410-2 #### [facility] CLIA [id number] [address] [place] [address] [place] WBC (Bld) [#/Vol] 10.64 10*3/uL Normal 3.70-11.00 [facility] Comment on above: Order Comment: Speci men Type: BLOOD SPECIMEN Performed By: #### 5 8410-2 #### [facility] CLIA [id number] [address] [place] [address] [facility] [place] CONSULTon 03-10-2020 CONSULT HNO ID: [id number] Author: Ortega Seay Service: Infectious Disease Author Type: Physician Type: Consults Filed: 03/12/2020 10:37 AM Note Text: [facility] - Consultation PATIENT NAME: LISA SHIRLEY CSN: [id number] DATE OF : 1945 SEX/AGE: F/74 PATIENT TYPE: I HOSP SVC: INTM LOCATION: [id number] DATE OF SERVICE: 03/10/2020 TIME OF SERVICE: 10:10 AM REFERRING PHYSICIAN: ASHLEIGH THURSTON REASON FOR CONSULTATION: Fever, leukocytosis, COVID-19 infection, antibiotic management. HISTORY OF PRESENT ILLNESS: This patient is a 74-year-old woman with multiple medical problems including diabetes mellitus type 2, obesity, irritable bowel syndrome, previous stroke. She is confused and the history is obtained from reviewing the chart. She apparently presented to [facility] with an acute right MCA stroke. She was found down at home and police did a welfare check and found her down on the ground at home. She is noted to have left ankle bruising and swelling. In the ER at [facility], she had a CT of the head done that showed the MCA stroke. COVID testing was positive. In the ER, she was febrile and tachycardic. They repeated her COVID test for unclear reasons. The repeat COVID test was negative despite the first one being positive. The first COVID test that was positive was done on 03/08 at 2:53 p.m. and the second COVID test was done on 03/08 at 6:02 p.m. and the second one was negative. She was transferred to the Neuro ICU at [facility]. Her initial white blood cell count was noted to be 13.0 and it decreased today to 10.6. The Orthopedic Surgery service was consulted for a left trimalleolar fracture. Plan to take her to the operating room on Thursday. She is being transferred now from the ICU to the regular floor. PAST MEDICAL HISTORY: Diabetes mellitus, obesity, stroke, anxiety, diabetic neuropathy, hypertension, hyperlipidemia, irritable bowel syndrome, depression, sleep apnea, stroke, vitamin D deficiency. PAST SURGICAL HISTORY: Cholecystectomy. ALLERGIES: SOFIA inhibitors, Crestor, meloxicam, metformin, NSAIDs, prednisone, Actos, BuSpar, glipizide, Lexapro, Seroquel. SOCIAL HISTORY: The patient lives alone at home. She does not smoke, drink alcohol or use drugs. FAMILY HISTORY: She has a son who is alive and healthy. She denied any one in the family with clotting disorders. REVIEW OF SYSTEMS: Very limited because of her mental status. She denied headaches. She denied sore throat. She denied chest pain. She denied shortness of breath. She denied abdominal pain. She denied nausea or vomiting. She denied any urinary symptoms. The rest review of systems was limited and negative. PHYSICAL EXAMINATION: VITAL SIGNS: T-current 36.8, pulse 97, respiratory rate 18, blood pressure 158/78. GENERAL APPEARANCE: This is a well-developed, elderly woman, lying in bed, in no distress. HEENT: Normocephalic, atraumatic. Anicteric sclerae. The oral mucosa is moist. There is no thrush. She has an NG tube in place. NECK: Supple. LUNGS: Clear to auscultation bilaterally. I do not hear any wheezes, rales, rhonchi. CARDIOVASCULAR: Regular rate and rhythm. S1, S2. No murmurs, rubs, gallops. ABDOMEN: Obese, soft, nontender. Positive bowel sounds. EXTREMITIES: She has a heavy Sofia wrap bandage on her left lower extremity. NEUROLOGIC: She is alert, awake, and oriented to person only. She squeezed my hand. LABORATORY DATA: White count is 10.6, hemoglobin 12.7, platelet count 207,000, BUN 26, creatinine 1.2, sodium 139, potassium 3.8, chloride 104, CO2 23. CPK is 1014. Lactic acid 1.8. Nasal MRSA swab negative. Blood culture from 03/08, no growth. Procalcitonin 03/08, 0.24. ASSESSMENT AND PLAN: This is a 74-year-old woman with multiple medical problems, who fell at home and suffered a left leg fracture. She was tested for COVID-19 and returned positive. Her oxygen level is 94% on room air, so I think she meets criteria for Decadron and remdesivir. I am going to start Decadron for a 10-day course and remdesivir for a 5-day course. I am going to check a chest x-ray. She already had a procalcitonin which was not high, so I doubt she has a superimposed bacterial pneumonia. She needs daily LFTs while on the remdesivir, and we will need to monitor her renal function as well daily on the remdesivir. Thank you for this consultation. I will follow closely with you. Ortega Seay MD, MS, FACP, [facility] Infectious Disease RRW:jacklyn /[id number] [facility] CONSULT HNO ID: [id number] Author: Ortega Seay Service: Infectious Disease Author Type: Physician Type: Consults Filed: 03/10/2020 10:21 AM Note Text: 10:20 AM Consult dictated #[id number] Start remdesivir and decadron for hypoxia and COVID-19. Monitor LFTs and renal function daily. Normal [facility] CT BRAIN WO IVCONon 03-10-20 CT BRAIN WO IVCON Final Report DATE OF EXAM: Mar 10 2020 5:09AM [facility] 0504 - CT BRAIN WO IVCON / PROCEDURE REASON: Intracranial hemorrhage Physician Interpretation EXAMINATION: CT BRAIN WITHOUT IV CONTRAST CLINICAL HISTORY: Intracranial hemorrhage. TECHNIQUE: Serial axial images without IV contrast were obtained from the vertex to the foramen magnum. MQ: CTBWO_3 CT Radiation dose: Integrated Dose-Length Product (DLP) for this visit = [address] Dose Reduction Employed: Iterative recon COMPARISON: MRI brain 03/09/2020. CT brain 03/08/2020. RESULT: Lead Mason Tender (topogram) images: Unremarkable. Post-operative change: None. Acute change: Hypoattenuation noted in the lateral right frontal lobe including the purposes, left insular cortex, and anterior left basal ganglia consistent with areas of acute ischemic infarct. Hemorrhage: No CT evidence of acute intracranial hemorrhage. ECASS hemorrhagic transformation score: Not Applicable Mass Lesion / Mass Effect: Minimal effacement of sulci and areas involved with acute ischemic infarct. No midline shift. Chronic change: Scattered patchy foci of low attenuation are present within supratentorial white matter which is a nonspecific finding but likely represents mild microvascular ischemia. Small remote lacunar infarct in the anterior left destiny. Parenchyma: There is no significant volume loss. The brain parenchyma is otherwise within normal limits for age. Ventricles: The ventricles are within normal limits of size and configuration for age. Paranasal sinuses and skull base: Arthritic Corpak feeding catheter is partially visualized. The visualized paranasal sinuses are grossly clear. The skull base and imaged soft tissues are unremarkable. IMPRESSION: 1. Areas of acute ischemic infarct in the right middle cerebral artery territory as detailed above. Minimal mass effect. No midline shift. No definite CT evidence of hemorrhagic transformation. 2. Remote lacunar infarct in the anterior left destiny. Mild chronic small vessel ischemic changes of the supratentorial white matter. Smalltalk Developer: PSCB Transcribe Date/Time: Mar 10 2020 11:17A Dictated by : GEO CONTEH MD This examination was interpreted and the report reviewed and electronically signed by: GEO CONTEH MD on Mar 10 2020 11:23AM EST Normal [facility] HEPATIC FUNCTION PNLon 03-10 Albumin [Mass/Vol] 3.3 g/dL Low 3.9-4.9 [facility] Comment on above: Order Comment: Speci men Type: BLOOD SPECIMEN Performed By: #### 2 4321-2 #### [facility] CLIA [id number] [address] [place] [address] ALP [Catalytic activity/Vol] 64 U/L Normal 34-123 [facility] Comment on above: Order Comment: Speci men Type: BLOOD SPECIMEN Performed By: #### 2 4321-2 #### [facility] CLIA [id number] [address] [place] [address] ALT With P-5'-P [Catalytic activity/Vol] 21 U/L Normal 7-38 [facility] Comment on above: Order Comment: Speci men Type: BLOOD SPECIMEN Performed By: #### 2 4321-2 #### [facility] CLIA [id number] [address] [place] [address] AST With P-5'-P [Catalytic activity/Vol] 25 U/L Normal 13-35 [facility] Comment on above: Order Comment: Speci men Type: BLOOD SPECIMEN Performed By: #### 2 4321-2 #### [facility] CLIA [id number] [address] [place] [address] Bilirubin [Mass/Vol] 0.4 mg/dL Normal 0.2-1.3 [facility] Comment on above: Order Comment: Speci men Type: BLOOD SPECIMEN Performed By: #### 2 4321-2 #### [facility] CLIA [id number] [address] [place] [address] Bilirubin.conjugated [Mass/Vol] mg/dL Normal <0.2 [facility] Comment on above: Order Comment: Speci men Type: BLOOD SPECIMEN Performed By: #### 2 4321-2 #### [facility] CLIA [id number] [address] [place] [address] Protein [Mass/Vol] 6.6 g/dL Normal 6.3-8.0 [facility] Comment on above: Order Comment: Speci men Type: BLOOD SPECIMEN Performed By: #### 2 4321-2 #### [facility] CLIA [id number] [address] [place] [address] NURSING PROGon 03-10-2020 NURSING PROG HNO ID: [id number] Author: Elda Jean-BaptisteRn) JONNY Isaac Service: Nursing Author Type: Registered Nurse Type: Nursing Progress Note Filed: 03/10/2020 2:07 PM Note Text: Nursing Progress: Topic: RESTRAINT NON-VIOLENT PATIENT NAME: Lisa Shirley PATIENT LOCATION: [place] [address] [address]* The patient demonstrates Attempting to Remove Medical Devices Vital to Medical Stability, Confusion, Lack of Understanding/Ability to Comply with Safety Directions, Impulsive Behavior, Inability to be Redirected, Inability to Retain Information Regarding Safety Directions as evidenced by the following behaviors getting out of bed, ripping at lines which pose an imminent danger to self or others. The following interventions were attempted but were not effective in protecting the patient's safety: Alarms, Bed in Low/Locked Position, Call Light Within Reach, IV/Feeding Bag/Pump Out of Vision, Medications Reviewed, Modify Environment, Modify Equipment, Frequent Observation, Move Patient Closer to Nurses Station, Pad Tubes/Drains, Pain/Discomfort Relief, Partial Bedrails Up, Interdisciplinary Approach including Therapies, Re-Orientation Methods, Toileting Next, a comprehensive assessment was performed and warranted placing the patient in Soft Bilateral Wrists, the least restrictive restraint needed to protect the patient's safety. Ongoing safety assessments and evaluation for earliest removal of restraints will be performed. DATE: March 10, 2020 TIME: 2:06 PM Elda Isaac RN Normal [facility] NURSING PROG HNO ID: [id number] Author: Kathryn Rose RN Service: Nursing Author Type: Registered Nurse Type: Nursing Progress Note Filed: 03/10/2020 11:59 AM Note Text: Patient transferred to [facility]. RN called report to [facility] JONNY Vega. RN called patient's son, Osmany and updated on status and transfer to 9108. Informed him there are no visitors allowed on that floor. All belongings taken with patient. Blood work obtained prior to transfer. Bedside hand off with 9100 RN completed. myriam barraza [facility] NURSING PROG HNO ID: [id number] Author: Kathryn (Rn) JONNY Rose Service: Nursing Author Type: Registered Nurse Type: Nursing Progress Note Filed: 03/10/2020 11:54 AM Note Text: Patient has positive and negative covid results in the computer. According to power and recovery shift engineer report patient was to stay in NSICU. RN questioning need for isolation. Patient was not in isolation upon start of shift. Per nsicu resident okay to place in isolation. -placed in contact/droplet isolation. RN called lab to clarify covid status. Per lab recommends consulting infectious disease to assess. RN updated Dr. Lira and order for ID consult placed. Myriam barraza [facility] PLAN OF CAREon 03-10-2020 PLAN OF CARE HNO ID: [id number] Author: Brittnee Lima Service: Neurology General Author Type: Nurse Practitioner Type: Plan of Care Filed: 03/10/2020 4:07 PM Note Text: Patient transferred out of NICU earlier today Chart reviewed and following updates: Stroke consult placed> will see Thursday for any additional recommendations Redesivir and Decadron resumed for floor orders per ID recs BP parameters clarified and home dose Cardizem resumed Telemetry should continue throughout admission please PRN Hydralazine for SBP >180 Neurology to follow. Please call with any concerns [facility] PROGRESSon 03-10-2020 PROGRESS HNO ID: [id number] Author: Leland Herrera Service: Orthopaedic Surgery Author Type: Physician Type: Progress Notes Filed: 03/10/2020 1:31 PM Note Text: ORTHO STAFF: Agree with resident assessment and plan noted below, except where changes made. Ankle currently stable and reduced in splint. With new Covid positive status, will continue to reassess patient for safe surgical timing. Anticipate surgery (and intubation) will not occur 03/12/2020. Leland Herrera MD Inpatient Daily Progress Note Assessment and Plan 74 year old female with left trimalleolar fracture ? - Medical management per primary - Pain control per primary - Ice/elevate LLE - NWB LLE - Splint in place, maintain, keep c/d/i - Subjective No acute events overnight. Physical Examination Vitals BP 157/90 Pulse 89 Temp 36.6 ?C (97.9 ?F) Resp 21 Ht 167.6 cm (5' 6") Wt 107.7 kg (237 lb 7 oz) SpO2 95% BMI 38.32 kg/m? General No acute distress. Left Lower Extremity Splint and soft dressing dci Compartments of the thigh and leg are soft and compressible. Tenderness to palpation about the ankle Motor intact EHL/DF/PF. Sensation intact to light touch almendarez/sa/sp/dp/t. Brisk capillary refill to toes. Labs Recent Labs 03/10/20 0539 03/09/20 1005 03/09/20 0328 03/09/20 0328 03/09/20 0327 03/09/20 0313 03/08/20 2246 03/08/20 1453 03/08/20 1453 NA 139 138 < > -- -- 142 139 139 -- 134* K 3.8 3.6* < > -- -- 3.4* 4.2 4.2 -- 4.5 CHLOR 104 104 < > -- -- 105 103 103 -- 94* CO2 23 23 < > -- -- 23 20* 20* < > 19* BUN 26* 24* < > -- -- 25* 25* 25* -- 24* CREAT 1.23* 1.10* < > -- -- 1.13* 1.18* 1.18* -- 1.30* GLUC 271* 175* < > -- -- 154* 398* 398* -- 509* ANION 12 11 < > -- -- 14 16 16 -- 21* CA 8.8 8.9 < > -- -- 9.1 8.9 8.9 -- 9.8 MG -- -- -- 1.9 -- -- 2.0 -- -- AST -- -- -- -- -- -- 24 -- -- ALT -- -- -- -- -- -- 18 -- -- ALKPHOS -- -- -- -- -- -- 87 -- -- TBILI -- -- -- -- -- -- 0.8 -- -- WBC 10.64 -- -- -- -- 14.50* 14.71* -- 13.06* HB 12.7 -- -- -- -- 12.8 13.9 -- 14.1 HCT 36.6 -- -- -- -- 39.0 41.3 -- 42.5 PLT 207 -- -- -- -- 249 282 -- 276 LACT -- -- -- -- 1.8 -- 2.0 -- -- INR -- -- -- -- -- -- 1.1 -- 1.0 < > = values in this interval not displayed. Imaging No new imaging Tonie Bryan MD Orthopaedic Surgery March 10, 2020 Normal [facility] PT Pnl PPPon 03-10-2020 INR Coag (PPP) [Relative time] 1.0 {INR} Normal 0.9-1.3 [facility] Comment on above: Order Comment: Speci men Type: BLOOD SPECIMEN Result Comment: Francia min K Antagonist (VKA) Therapeutic Range: INR 2 to 3 (Target INR of 2.5) Note: For patients treated with VKA drugs, such as warfarin, the [place] [employer] 2012 Guideline recommends a therapeutic INR range of 2 to 3 (target INR of 2.5). This recommendation includes high-risk patients with antiphospholipid syndrome with previous arterial or venous thromboembolism, current-generation mechanical or bioprosthetic aortic heart valve replacement. Note: Patients with mechanical aortic valve replacement and additional risk factors for thromboembolic events (atrial fibrillation, previous thromboembolism, LV dysfunction, hypercoagulable conditions) or an older generation mechanical AVR (i.e., ball in-Cage) or any mechanical MVR should have a INR therapeutic range of 2.5 to 3.5 (target INR of 3). Mellisa GH, et al. Chest 2012, 141:7S-47S Caro RA, et al. [facility] 2017, 70: 252-289 Performed By: #### 2 4321-2 #### [facility] CLIA [id number] [address] [place] [address] PT Coag (PPP) [Time] 10.5 s Normal 9.7-13.0 [facility] Comment on above: Order Comment: Speci men Type: BLOOD SPECIMEN Performed By: #### 2 4321-2 #### [facility] CLIA [id number] [address] [place] [address] THERAPY NTon 03-10-2020 THERAPY NT HNO ID: [id number] Author: Osmar (Ccc-Traffic Reporter) ALEYDA Calloway/FLOW MANAGER Service: Speech/Swallow Author Type: Speech Language Pathologist Type: Therapy (PT/OT/Speech/Resp) Filed: 03/10/2020 3:25 PM Note Text: Speech Therapy Treatment SERVICE DATE: 03/10/2020 SERVICE TIME: 1415 to 1435 ROOM: [place] [address] IMPRESSION: Patient demonstrates oropharyngeal dysphagia which is negatively impacting his/her ability to effectively maintain adequate nutrition and hydration and/or airway safety. Patient demonstrates dysarthria and left neglect which is negatively impacting the patient's ability to effectively communicate basic ADL medical and social wants/needs with familiar and unfamiliar communication partners. ? Diet Recommendations: NPO with alternative means of nutrition/hydration/medicat ion ? Continue use of corpack (small bore feeding tube) ? Swallowing Precautions Recommendations: Rigid Oral Hygiene ? Nursing Recommendations: See swallow guide posted in patients room;Reinforce use of swallowing strategies;Reinforce use of communication strategies: Encourage left sided awareness Recommended Discharge Disposition: Acute Rehab Justification for Recommended Discharge Disposition: Patient can tolerate 3 hours of therapy per day;Willing to participate;Medically complex;Good sitting tolerance;Motivated Current Hospital Course: COVID-19+ transfer from [facility] to [facility] Reason for Hospital Admission: Stroke Rehabilitation Precautions: Aspiration Precautions;Dysphagia;Cogni tive Linguistics Deficits;Communication Deficits;NPO;Visual Deficits;Isolation;Diabetic Isolation Type: Contact/Droplet(+ eyewear) NPO Precautions: Small Bore Feeding Tube Reason for Speech Therapy Consult: Stroke: assess swallowing and speech/cognition Relevant Past Medical History: Anxiety, Depression, DM, Fatigue, HTN, Morbid obesity, Panic state as acute reaction to stress, sleep disorder, Stroke, DM Response to Therapy Interventions: Aspiration Risk, Good Participation in activities, Multiple medical concerns, Visual Field Deficit Speech Therapy Problem List: Dysphagia;Cognitive-Linguis tic Impairment;Dysarthria Patient Report: I'm sorry. Current Status Current Feeding Method: Small Bore Feeding Tube Current Diet Textures: NPO with alternative means of nutrition/hydration/medicat ion Speech-Language, Cognitive Assessment Speech remains dysarthric Instructed to over exaggerated speech to improve intelligibility Completed overarticulation tasks with 10/20 accuracy Improved left sided awareness today Able to maintain eye contact at midline for 2 minutes x5 Attended to the left side x1 this date Gaze still fixed to the right without cueing Speech Therapy to follow to improve cognitive-communication Swallow Assessment Consistencies Tested: Thin Liquids IDDSI Level 0, Mildly Thick Liquids IDDSI Level 2 (Cross Anchor Thick) Patient with decreased alertness today Unable to self feed, in restraints Speech Therapy set up oral suction in room Completed oral care Trialed thin via spoon: +cough immediately after swallow Trialed mildly thick (nectar thick) liquids via spoon: +cough delayed after swallow Weak hyo-laryngeal movement Patient still with signs or symptoms of aspiration Recommend continue NPO status Speech Therapy to follow for dysphagia management Functional Communication Measure (FCM) Current FCM Level: Swallowing Level;Motor Speech;Attention FCM Swallowing Level: 1 FCM Attention Level: 1 FCM Motor Speech Level: 3 Patient /Caregiver Goals: Eat/Drink Without Restrictions;Improve Cognition;Improve Communication Goals for Plan of Care: SWALLOWING: Patient / Caregiver will demonstrate knowledge of taught compensatory strategies and dietary consistency recommendations to optimize functional swallow function without overt clinical signs and symptoms of aspiration or dysphagia Swallowing Goals: Patient will participate in swallow reassessment to determine safety of diet vs instrumentation vs alternate means of hydration/nutrition. - see above 03/10/2020 ? Therapeutic Tasks: Lingual/Pharyngeal/Laryngea l strengthening tasks to improve swallowing function ? COGNITION: Patient will demonstrate knowledge of taught compensatory strategies for functional cognitive-linguistic skills Cognitive Goals: Patient will improve visual left scanning given maximal cues to 25% accuracy so that the patient may demonstrate general awareness of surroundings for personal safety. - see above 03/10/2020 ? SPEECH / LANGUAGE: Patient will demonstrate knowledge of taught compensatory strategies for functional communication Speech Goals: Patient will improve speech intelligibility at the word level to 60% intelligibility given maximal cues so that the patient can functionally communicate with caregivers. Patient will demonstrate adequate return of knowledge of all compensatory strategies/instruction to effectively assist the patient in immediate speech production skills. - see above 03/10/2020 ? Progress Toward Goals: Progressing as expected Speech Rehab Potential: Good Patient will be discontinued from speech therapy when no further skilled needs are identified in this setting. PLAN: Treatment Frequency (times per week): 4 Current admission Treatment Interventions: Dysphagia Management;Dysarthria Management;Cognitive-Lingui stic Management Plan for next visit: Swallowing Strategies, Dysphagia Management, Dietary Consistencies, Motor Speech Skills Plan of Care Developed with: Patient Results and Recommendations Discussed With: Patient;Nurse TREATMENT INTERVENTIONS: Therapy Diagnosis: Other speech and language deficits following unspecified cerebrovascular disease;Dysarthria following cerebral infarction;Dysphagia following cerebral infarction Interventions Provided: Dysphagia Therapy (90022);Speech Therapy (41612) $ Dysphagia Therapy (44546) Billed Units: 1 unit $ Speech Therapy (60864) Billed Units: 1 unit Training and education provided in: Swallowing Strategies, Dysphagia Management, Motor Speech Skills(Left sided awareness) The following therapeutic skills were used:: Verbal cuing, Visual cuing, Tactile cuing, Repetitive task learning, Education on role of discipline / importance of activity Total Treatment Time (minutes): 220 Home Environment Prior Functional Level: Within Functional Limits Assistance Available: multimedia services coordinator Prior Swallowing Function/Diet Textures: Regular Consistency;Thin Liquids IDDSI Level 0 Please see discipline specific clinical documentation flowsheet for complete details for this therapy evaluation/treatment. SIGNATURE: Osmar Calloway CCC-FLOW MANAGER PATIENT NAME: Lisa Shirley DATE: March 10, 2020 TIME: 3:17 PM Normal [facility] XR CHEST 1V FRONTALon 2019 XR CHEST 1V FRONTAL Final Report DATE OF EXAM: Mar 10 2020 11:51AM AKX [id number] - XR CHEST 1V FRONTAL / PROCEDURE REASON: Shortness of breath Physician Interpretation EXAMINATION: CHEST RADIOGRAPH (SINGLE VIEW AP OR PA) CLINICAL HISTORY: Shortness of breath MQ: XC1_5 Comparison: Chest radiograph 03/08/2020, abdominal radiograph 03/09/2020 RESULT: Lines, tubes, and devices: Right IJ line has been removed. There is an enteric tube with tip terminating off the [id number] below the diaphragm. Lungs and pleura: No consolidation. No pneumothorax. No pleural effusion. Cardiomediastinal silhouette: Stable cardiomediastinal silhouette. Cardiomegaly. IMPRESSION: No acute findings. Smalltalk Developer: TENISHA Transcribe Date/Time: Mar 10 2020 7:13P Dictated by : TAHMINA WOOD MD This examination was interpreted and the report reviewed and electronically signed by: TAHMINA WOOD MD on Mar 10 2020 7:15PM EST [facility] ALLIED HEALTHon 03-09-2020 ALLIED HEALTH HNO ID: [id number] Author: Jade Hoover (Rt) Service: Radiology Author Type: Motor And Generator Brush Cutter Type: Allied Health Filed: 03/09/2020 9:08 PM Note Text: Radiology Service Progress Note PATIENT NAME: Lisa Shirley DATE OF SERVICE: March 09, 2020 TIME: 9:07 PM PATIENT IDENTITY VERIFICATION COMPLETED USING TWO (2) IDENTIFIERS: Name and Date of confirmed by identification band and Name and Date of obtained from a relative, guardian or prior caregiver. FALL SCREENING: Has the patient had 2 falls in the last year or 1 fall with injury or currently using an Ambulatory Assistive Device (Walker, Cane, Wheelchair, Crutches, etc.)? Inpatient: Screened on floor PATIENT GENDER DATA: Female. status: : No status: NO. PATIENT RELEVANT IMPLANT DATA REVIEWED: Yes RADIOLOGY DEPARTMENT: MR; Exam(s) Completed: Head: Routine Brain PERIPHERAL IV DATA: Inpatient: see LDA documentation SIGNED BY: RT RIMA March 09, 2020 9:07 PM [facility] ALLIED HEALTH HNO ID: [id number] Author: Jade Jones (Rt) Service: Radiology Author Type: Motor And Generator Brush Cutter Type: Allied Health Filed: 03/09/2020 2:28 PM Note Text: Radiology Service Progress Note PATIENT NAME: Lisa Shirley DATE OF SERVICE: March 09, 2020 TIME: 2:28 PM PATIENT IDENTITY VERIFICATION COMPLETED USING TWO (2) IDENTIFIERS: Name and Date of confirmed by patient verbally and Name and Date of confirmed by identification band. FALL SCREENING: Has the patient had 2 falls in the last year or 1 fall with injury or currently using an Ambulatory Assistive Device (Walker, Cane, Wheelchair, Crutches, etc.)? Inpatient: Screened on floor PATIENT GENDER DATA: Female. status: : No status: N/A PATIENT RELEVANT IMPLANT DATA REVIEWED: Not Applicable RADIOLOGY DEPARTMENT: General X-ray: Exam(s) Completed: Abdomen X-Ray Abdomen PERIPHERAL IV DATA: Not applicable SIGNED BY: RT Robert March 09, 2020 2:28 PM [facility] HNO ID: [id number] Author: Chalino Jean-BaptisteRtJade Muñoz Service: Radiology Author Type: Motor And Generator Brush Cutter Type: Allied Health Filed: 03/09/2020 6:38 AM Note Text: Called for MRI screening form. Normal [facility] ALLIED [facility] HNO ID: [id number] Author: Xi Jean-BaptisteRtJade Ghotra Service: Radiology Author Type: Motor And Generator Brush Cutter Type: [facility] Filed: 03/09/2020 4:59 AM Note Text: Radiology Service Progress Note PATIENT NAME: Lisa Shirley DATE OF SERVICE: March 09, 2020 TIME: 4:57 AM PATIENT IDENTITY VERIFICATION COMPLETED USING TWO (2) IDENTIFIERS: Name and Date of confirmed by patient verbally and Name and Date of confirmed by identification band. FALL SCREENING: Has the patient had 2 falls in the last year or 1 fall with injury or currently using an Ambulatory Assistive Device (Walker, Cane, Wheelchair, Crutches, etc.)? Inpatient: Screened on floor PATIENT GENDER DATA: Female. status: : No status: N/A PATIENT RELEVANT IMPLANT DATA REVIEWED: Not Applicable RADIOLOGY DEPARTMENT: General X-ray: Exam(s) Completed: Lower Extremity X-Ray(s): Ankle, Left: PERIPHERAL IV DATA: Not applicable SIGNED BY: RT Ranjan March 09, 2020 4:57 AM [facility] HNO ID: [id number] Author: Jade Woodruff (Rt) Service: Radiology Author Type: Motor [employer] Generator Brush Cutter Type: [facility] Filed: 03/09/2020 1:06 AM Note Text: Radiology Service Progress Note PATIENT NAME: Lisa Shirley DATE OF SERVICE: March 09, 2020 TIME: 1:06 AM PATIENT IDENTITY VERIFICATION COMPLETED USING TWO (2) IDENTIFIERS: Name and Date of confirmed by identification band. FALL SCREENING: Has the patient had 2 falls in the last year or 1 fall with injury or currently using an Ambulatory Assistive Device (Walker, Cane, Wheelchair, Crutches, etc.)? Inpatient: Screened on floor PATIENT GENDER DATA: Female. status: : No status: NO. PATIENT RELEVANT IMPLANT DATA REVIEWED: Not Applicable RADIOLOGY DEPARTMENT: General X-ray: Exam(s) Completed: Lower Extremity X-Ray(s): Ankle, Left: PERIPHERAL IV DATA: Not applicable SIGNED BY: RT Ranjan March 09, 2020 1:06 AM [facility] HNO ID: [id number] Author: Jade Woodruff (Rt) Service: Radiology Author Type: Motor [employer] Generator Brush Cutter Type: [facility] Filed: 03/08/2020 11:46 PM Note Text: Radiology Service Progress Note PATIENT NAME: Lisa Shirley DATE OF SERVICE: March 08, 2020 TIME: 11:46 PM PATIENT IDENTITY VERIFICATION COMPLETED USING TWO (2) IDENTIFIERS: Name and Date of confirmed by identification band. FALL SCREENING: Has the patient had 2 falls in the last year or 1 fall with injury or currently using an Ambulatory Assistive Device (Walker, Cane, Wheelchair, Crutches, etc.)? Inpatient: Screened on floor PATIENT GENDER DATA: Female. status: : No status: NO. PATIENT RELEVANT IMPLANT DATA REVIEWED: Not Applicable RADIOLOGY DEPARTMENT: General X-ray: Exam(s) Completed: Lower Extremity X-Ray(s): Ankle, Left: PERIPHERAL IV DATA: Not applicable SIGNED BY: RT Ranjan March 08, 2020 11:46 PM [facility] HNO ID: [id number] Author: Jade Hartman (Rt) Service: Radiology Author Type: Motor And Generator Brush Cutter Type: [facility] Filed: 03/08/2020 10:34 PM Note Text: Radiology Service Progress Note PATIENT NAME: Lisa Shirley DATE OF SERVICE: March 08, 2020 TIME: 10:30 PM PATIENT IDENTITY VERIFICATION COMPLETED USING TWO (2) IDENTIFIERS: Name and Date of confirmed by identification band. FALL SCREENING: Has the patient had 2 falls in the last year or 1 fall with injury or currently using an Ambulatory Assistive Device (Walker, Cane, Wheelchair, Crutches, etc.)? Inpatient: Screened on floor PATIENT GENDER DATA: Female. status: : No status: NO. PATIENT RELEVANT IMPLANT DATA REVIEWED: Not Applicable RADIOLOGY DEPARTMENT: General X-ray: Exam(s) Completed: Chest X-Ray PERIPHERAL IV DATA: Not applicable SIGNED BY: Lianne Ansari RT March 08, 2020 10:30 PM Normal [facility] Bacteria Bld Culton 03-09-20 20 Bacteria identified Cx Nom (Bld) CULTURE, BLOOD: No growth 5 days Normal [facility] Comment on above: Performed By: #### 5 8410-2 #### [facility] CLIA [id number] [address] [place] [address] [place] Bacteria identified Cx Nom (Bld) CULTURE, BLOOD: No growth 5 days Normal [facility] Comment on above: Performed By: #### 5 8410-2 #### [facility] CLIA [id number] [address] [place] [address] [place] Bacteria Ur Culton 0 Bacteria identified Cx Nom (U) CULTURE, URINE: 1,000-<5,000 CFU/mL Normal urogenital keisha Normal [facility] Comment on above: Performed By: #### 5 8410-2 #### [facility] CLIA [id number] [address] [place] [address] [place] Bas Metab 2000 Pnl SerPlon 1 05-09-2019 Anion gap [Moles/Vol] 11 mmol/L Normal 9-18 [facility] Comment on above: Order Comment: Speci men Type: BLOOD SPECIMEN Performed By: #### 5 8410-2 #### [facility] CLIA [id number] [address] [place] [address] Calcium [Mass/Vol] 8.9 mg/dL Normal 8.5-10.2 [facility] Comment on above: Order Comment: Speci men Type: BLOOD SPECIMEN Performed By: #### 5 8410-2 #### [facility] CLIA [id number] [address] [place] [address] Chloride [Moles/Vol] 104 mmol/L Normal 97-105 [facility] Comment on above: Order Comment: Speci men Type: BLOOD SPECIMEN Performed By: #### 5 8410-2 #### [facility] CLIA [id number] [address] [place] [address] CO2 [Moles/Vol] 23 mmol/L Normal 22-30 [facility] Comment on above: Order Comment: Speci men Type: BLOOD SPECIMEN Performed By: #### 5 8410-2 #### [facility] CLIA [id number] [address] [place] [address] Creatinine [Mass/Vol] 1.10 mg/dL High 0.58-0.96 [facility] Comment on above: Order Comment: Speci men Type: BLOOD SPECIMEN Performed By: #### 5 8410-2 #### [facility] CLIA [id number] [address] [place] [address] GFR/1.73 sq M.predicted MDRD (S/P/Bld) [Vol rate/Area] 59 mL/min/{1.73_m2} Normal [facility] Comment on above: Order Comment: Speci men Type: BLOOD SPECIMEN Result Comment: 49 eGFR (Estimated GFR) Units of measure: mL/min/1.73 meters squared eGFR is derived from the reexpressed MDRD Study equation using the following parameters: serum creatinine, age, gender and race. The creatinine assay has been calibrated to be traceable to IDMS. An eGFR <60 mL/min/1.73m2 for >3 months is consistent with chronic kidney disease. Refer to KDOQI guidelines for clinical interpretation. In patients with unstable renal function, e.g. those with acute kidney injury, the eGFR may not accurately reflect actual GFR. Performed By: #### 5 8410-2 #### [facility] CLIA [id number] [address] [place] [address] Glucose [Mass/Vol] 175 mg/dL High 74-99 [facility] Comment on above: Order Comment: Speci men Type: BLOOD SPECIMEN Result Comment: The [place] [employer] (ADA) provides guidance for cutoff values for fasting glucose and random glucose. The ADA defines fasting as no caloric intake for at least 8 hours. Fasting plasma glucose results between 100 to 125 mg/dL indicate increased risk for diabetes (prediabetes). Fasting plasma glucose results greater than or equal to 126 mg/dL meet the criteria for diagnosis of diabetes. In the absence of unequivocal hyperglycemia, results should be confirmed by repeat testing. In a patient with classic symptoms of hyperglycemia or hyperglycemic crisis, random plasma glucose results greater than or equal to 200 mg/dL meet the criteria for diagnosis of diabetes. Reference: Standards of Medical Care in Diabetes 2016, [place] [employer]. Diabetes Care. 2016.39(Suppl 1). Performed By: #### 5 8410-2 #### [facility] CLIA [id number] [address] [place] [address] Potassium [Moles/Vol] 3.6 mmol/L Low 3.7-5.1 [facility] Comment on above: Order Comment: Speci men Type: BLOOD SPECIMEN Performed By: #### 5 8410-2 #### [facility] CLIA [id number] [address] [place] [address] Sodium [Moles/Vol] 138 mmol/L Normal 136-144 [facility] Comment on above: Order Comment: Speci men Type: BLOOD SPECIMEN Performed By: #### 5 8410-2 #### [facility] CLIA [id number] [address] [place] [address] Urea nitrogen [Mass/Vol] 24 mg/dL High 7-21 [facility] Comment on above: Order Comment: Speci men Type: BLOOD SPECIMEN Performed By: #### 5 8410-2 #### [facility] CLIA [id number] [address] [place] [address] Anion gap [Moles/Vol] 11 mmol/L Normal 9-18 [facility] Comment on above: Order Comment: Speci men Type: BLOOD SPECIMEN Performed By: #### 2 4321-2 #### [facility] CLIA [id number] [address] [place] [address] Calcium [Mass/Vol] 9.3 mg/dL Normal 8.5-10.2 [facility] Comment on above: Order Comment: Speci men Type: BLOOD SPECIMEN Performed By: #### 2 4321-2 #### [facility] CLIA [id number] [address] [place] [address] Chloride [Moles/Vol] 105 mmol/L Normal 97-105 [facility] Comment on above: Order Comment: Speci men Type: BLOOD SPECIMEN Performed By: #### 2 4321-2 #### [facility] CLIA [id number] [address] [place] [address] CO2 [Moles/Vol] 22 mmol/L Normal 22-30 [facility] Comment on above: Order Comment: Speci men Type: BLOOD SPECIMEN Performed By: #### 2 4321-2 #### [facility] CLIA [id number] [address] [place] [address] Creatinine [Mass/Vol] 1.07 mg/dL High 0.58-0.96 [facility] Comment on above: Order Comment: Speci men Type: BLOOD SPECIMEN Performed By: #### 2 4321-2 #### [facility] CLIA [id number] [address] [place] [address] GFR/1.73 sq M.predicted MDRD (S/P/Bld) [Vol rate/Area] mL/min/{1.73_m2} Normal [facility] Comment on above: Order Comment: Speci men Type: BLOOD SPECIMEN Result Comment: 50 eGFR (Estimated GFR) Units of measure: mL/min/1.73 meters squared eGFR is derived from the reexpressed MDRD Study equation using the following parameters: serum creatinine, age, gender and race. The creatinine assay has been calibrated to be traceable to IDMS. An eGFR <60 mL/min/1.73m2 for >3 months is consistent with chronic kidney disease. Refer to KDOQI guidelines for clinical interpretation. In patients with unstable renal function, e.g. those with acute kidney injury, the eGFR may not accurately reflect actual GFR. Performed By: #### 2 4321-2 #### [facility] CLIA [id number] [address] [place] [address] Glucose [Mass/Vol] 180 mg/dL High 74-99 [facility] Comment on above: Order Comment: Speci men Type: BLOOD SPECIMEN Result Comment: The [place] Diabetes Association (ADA) provides guidance for cutoff values for fasting glucose and random glucose. The ADA defines fasting as no caloric intake for at least 8 hours. Fasting plasma glucose results between 100 to 125 mg/dL indicate increased risk for diabetes (prediabetes). Fasting plasma glucose results greater than or equal to 126 mg/dL meet the criteria for diagnosis of diabetes. In the absence of unequivocal hyperglycemia, results should be confirmed by repeat testing. In a patient with classic symptoms of hyperglycemia or hyperglycemic crisis, random plasma glucose results greater than or equal to 200 mg/dL meet the criteria for diagnosis of diabetes. Reference: Standards of Medical Care in Diabetes 2016, [place] [employer]. Diabetes Care. 2016.39(Suppl 1). Performed By: #### 2 4321-2 #### [facility] CLIA [id number] [address] [place] [address] Potassium [Moles/Vol] 3.4 mmol/L Low 3.5-5.0 [facility] Comment on above: Order Comment: Speci men Type: BLOOD SPECIMEN Performed By: #### 2 4321-2 #### [facility] CLIA [id number] [address] [place] [address] Order Comment: Speci men Type: VENOUS BLOOD SPECIMEN Performed By: #### 2 4344-4 ####[facility] [id number] [place] [address] Sodium [Moles/Vol] 138 mmol/L Normal 136-144 [facility] Comment on above: Order Comment: Speci men Type: BLOOD SPECIMEN Performed By: #### 2 4321-2 #### [facility] CLIA [id number] [address] [place] [address] Urea nitrogen [Mass/Vol] 24 mg/dL High 7-21 [facility] Comment on above: Order Comment: Speci men Type: BLOOD SPECIMEN Performed By: #### 2 4321-2 #### [facility] CLIA [id number] [address] [place] [address] Anion gap [Moles/Vol] 14 mmol/L Normal 9-18 [facility] Comment on above: Order Comment: Speci men Type: BLOOD SPECIMEN Performed By: #### C ONABO #### [facility] CLIA [id number] Calcium [Mass/Vol] 9.1 mg/dL Normal 8.5-10.2 [facility] Comment on above: Order Comment: Speci men Type: BLOOD SPECIMEN Performed By: #### C ONABO #### [facility] CLIA [id number] Chloride [Moles/Vol] 105 mmol/L Normal 97-105 [facility] Comment on above: Order Comment: Speci men Type: BLOOD SPECIMEN Performed By: #### C ONABO #### [facility] CLIA [id number] CO2 [Moles/Vol] 23 mmol/L Normal 22-30 [facility] Comment on above: Order Comment: Speci men Type: BLOOD SPECIMEN Performed By: #### C ONABO #### [facility] CLIA [id number] Creatinine [Mass/Vol] 1.13 mg/dL High 0.58-0.96 [facility] Comment on above: Order Comment: Speci men Type: BLOOD SPECIMEN Performed By: #### C ONABO #### [facility] CLIA [id number] GFR/1.73 sq M.predicted MDRD (S/P/Bld) [Vol rate/Area] 57 mL/min/{1.73_m2} Normal [facility] Comment on above: Order Comment: Speci men Type: BLOOD SPECIMEN Result Comment: 47 eGFR (Estimated GFR) Units of measure: mL/min/1.73 meters squared eGFR is derived from the reexpressed MDRD Study equation using the following parameters: serum creatinine, age, gender and race. The creatinine assay has been calibrated to be traceable to IDMS. An eGFR <60 mL/min/1.73m2 for >3 months is consistent with chronic kidney disease. Refer to KDOQI guidelines for clinical interpretation. In patients with unstable renal function, e.g. those with acute kidney injury, the eGFR may not accurately reflect actual GFR. Performed By: #### C ONABO #### [facility] CLIA [id number] Glucose [Mass/Vol] 154 mg/dL High 74-99 [facility] Comment on above: Order Comment: Speci men Type: BLOOD SPECIMEN Result Comment: The [place] Diabetes Association (ADA) provides guidance for cutoff values for fasting glucose and random glucose. The ADA defines fasting as no caloric intake for at least 8 hours. Fasting plasma glucose results between 100 to 125 mg/dL indicate increased risk for diabetes (prediabetes). Fasting plasma glucose results greater than or equal to 126 mg/dL meet the criteria for diagnosis of diabetes. In the absence of unequivocal hyperglycemia, results should be confirmed by repeat testing. In a patient with classic symptoms of hyperglycemia or hyperglycemic crisis, random plasma glucose results greater than or equal to 200 mg/dL meet the criteria for diagnosis of diabetes. Reference: Standards of Medical Care in Diabetes 2016, [place] [employer]. Diabetes Care. 2016.39(Suppl 1). Performed By: #### C ONABO #### [facility] CLIA [id number] Potassium [Moles/Vol] 3.4 mmol/L Low 3.7-5.1 [facility] Comment on above: Order Comment: Speci men Type: BLOOD SPECIMEN Performed By: #### C ONABO #### [facility] CLIA [id number] Sodium [Moles/Vol] 142 mmol/L Normal 136-144 [facility] Comment on above: Order Comment: Speci men Type: BLOOD SPECIMEN Performed By: #### C ONABO #### [facility] CLIA [id number] Urea nitrogen [Mass/Vol] 25 mg/dL High 7-21 [facility] Comment on above: Order Comment: Speci men Type: BLOOD SPECIMEN Performed By: #### C ONABO #### [facility] CLIA [id number] Anion gap [Moles/Vol] 16 mmol/L Normal 9-18 [facility] Comment on above: Order Comment: Speci men Type: BLOOD SPECIMEN Performed By: #### 2 4321-2 #### [facility] CLIA [id number] [address] [place] [address] Chloride [Moles/Vol] 103 mmol/L Normal 97-105 [facility] Comment on above: Order Comment: Speci men Type: BLOOD SPECIMEN Performed By: #### 2 4321-2 #### [facility] CLIA [id number] [address] [place] [address] Creatinine [Mass/Vol] 1.18 mg/dL High 0.58-0.96 [facility] Comment on above: Order Comment: Speci men Type: BLOOD SPECIMEN Performed By: #### 2 4321-2 #### [facility] CLIA [id number] [address] [place] [address] GFR/1.73 sq M.predicted MDRD (S/P/Bld) [Vol rate/Area] 55 mL/min/{1.73_m2} Normal [facility] Comment on above: Order Comment: Speci men Type: BLOOD SPECIMEN Result Comment: 45 eGFR (Estimated GFR) Units of measure: mL/min/1.73 meters squared eGFR is derived from the reexpressed MDRD Study equation using the following parameters: serum creatinine, age, gender and race. The creatinine assay has been calibrated to be traceable to IDMS. An eGFR <60 mL/min/1.73m2 for >3 months is consistent with chronic kidney disease. Refer to KDOQI guidelines for clinical interpretation. In patients with unstable renal function, e.g. those with acute kidney injury, the eGFR may not accurately reflect actual GFR. eGFR (Estimated GFR) Units of measure: mL/min/1.73 meters squared eGFR is derived from the reexpressed MDRD Study equation using the following parameters: serum creatinine, age, gender and race. The creatinine assay has been calibrated to be traceable to IDMS. An eGFR <60 mL/min/1.73m2 for >3 months is consistent with chronic kidney disease. Refer to KDOQI guidelines for clinical interpretation. In patients with unstable renal function, e.g. those with acute kidney injury, the eGFR may not accurately reflect actual GFR. Performed By: #### 2 4321-2 #### [facility] CLIA [id number] [address] [place] [address] Result Comment: 45 eGFR (Estimated GFR) Units of measure: mL/min/1.73 meters squared eGFR is derived from the reexpressed MDRD Study equation using the following parameters: serum creatinine, age, gender and race. The creatinine assay has been calibrated to be traceable to IDMS. An eGFR <60 mL/min/1.73m2 for >3 months is consistent with chronic kidney disease. Refer to KDOQI guidelines for clinical interpretation. In patients with unstable renal function, e.g. those with acute kidney injury, the eGFR may not accurately reflect actual GFR. Glucose [Mass/Vol] 398 mg/dL High 74-99 [facility] Comment on above: Order Comment: Speci men Type: BLOOD SPECIMEN Result Comment: The [place] Diabetes Association (ADA) provides guidance for cutoff values for fasting glucose and random glucose. The ADA defines fasting as no caloric intake for at least 8 hours. Fasting plasma glucose results between 100 to 125 mg/dL indicate increased risk for diabetes (prediabetes). Fasting plasma glucose results greater than or equal to 126 mg/dL meet the criteria for diagnosis of diabetes. In the absence of unequivocal hyperglycemia, results should be confirmed by repeat testing. In a patient with classic symptoms of hyperglycemia or hyperglycemic crisis, random plasma glucose results greater than or equal to 200 mg/dL meet the criteria for diagnosis of diabetes. Reference: Standards of Medical Care in Diabetes 2016, [place] [employer]. Diabetes Care. 2016.39(Suppl 1). Performed By: #### 2 4321-2 #### [facility] CLIA [id number] [address] [place] [address] Sodium [Moles/Vol] 139 mmol/L Normal 136-144 [facility] Comment on above: Order Comment: Speci men Type: BLOOD SPECIMEN Performed By: #### 2 4321-2 #### [facility] CLIA [id number] [address] [place] [address] Urea nitrogen [Mass/Vol] 25 mg/dL High 7-21 [facility] Comment on above: Order Comment: Speci men Type: BLOOD SPECIMEN Performed By: #### 2 4321-2 #### [facility] CLIA [id number] [address] [place] [address] CALCIUM IONIZED Bon 11--20 20 Calcium.ionized (BldV) [Mass/Vol] 1.17 mmol/L Normal 1.08-1.30 [facility] Comment on above: Order Comment: Speci men Type: BLOOD SPECIMEN Performed By: #### 5 8410-2 #### [facility] CLIA [id number] [address] [place] [address] Calcium.ionized adjusted to pH 7.4 (Bld) [Moles/Vol] 1.17 mmol/L Normal 1.08-1.30 [facility] Comment on above: Order Comment: Speci men Type: BLOOD SPECIMEN Performed By: #### 5 8410-2 #### [facility] CLIA [id number] [address] [place] [address] CBC W Auto Diff [place] 2019 Basophils (Bld) [#/Vol] 0.04 10*3/uL Normal <0.11 [facility] Comment on above: Order Comment: Speci men Type: BLOOD SPECIMEN Performed By: #### 5 7021-8 ####[facility] [id number] [place] [address] Basophils/100 WBC (Bld) 0.3 % Normal [facility] Comment on above: Order Comment: Speci men Type: BLOOD SPECIMEN Performed By: #### 5 7021-8 ####[facility] [id number] [place] [address] Differential cell count method Nom (Bld) Auto Normal [facility] Comment on above: Order Comment: Speci men Type: BLOOD SPECIMEN Performed By: #### 5 7021-8 ####[facility] [id number] [place] [address] Eosinophils (Bld) [#/Vol] 10*3/uL Normal <0.46 [facility] Comment on above: Order Comment: Speci men Type: BLOOD SPECIMEN Performed By: #### 5 7021-8 ####[facility] [id number] [place] [address] Eosinophils/100 WBC (Bld) 0.0 % Normal [facility] Comment on above: Order Comment: Speci men Type: BLOOD SPECIMEN Performed By: #### 5 7021-8 ####[facility] [id number] [place] [address] Erythrocyte distribution width (RBC) [Ratio] 12.9 % Normal 11.5-15.0 [facility] Comment on above: Order Comment: Speci men Type: BLOOD SPECIMEN Performed By: #### 5 7021-8 ####[facility] [id number] [place] [address] Hematocrit (Bld) [Volume fraction] 39.0 % Normal 36.0-46.0 [facility] Comment on above: Order Comment: Speci men Type: BLOOD SPECIMEN Performed By: #### 5 7021-8 ####[facility] [id number] [place] [address] Hemoglobin (Bld) [Mass/Vol] 12.8 g/dL Normal 11.5-15.5 [facility] Comment on above: Order Comment: Speci men Type: BLOOD SPECIMEN Performed By: #### 5 7021-8 ####[facility] [id number] [place] [address] IMMATURE GRAN % 0.6 % Normal [facility] Comment on above: Order Comment: Speci men Type: BLOOD SPECIMEN Performed By: #### 5 7021-8 ####[facility] [id number] [place] [address] IMMATURE GRAN ABS 0.09 k/uL Normal <0.10 [facility] Comment on above: Order Comment: Speci men Type: BLOOD SPECIMEN Performed By: #### 5 7021-8 ####[facility] [id number] [place] [address] Lymphocytes (Bld) [#/Vol] 1.65 10*3/uL Normal 1.00-4.00 [facility] Comment on above: Order Comment: Speci men Type: BLOOD SPECIMEN Performed By: #### 5 7021-8 ####[facility] [id number] [place] [address] Lymphocytes/100 WBC (Bld) 11.4 % Normal [facility] Comment on above: Order Comment: Speci men Type: BLOOD SPECIMEN Performed By: #### 5 7021-8 ####[facility] [id number] [place] [address] MCH (RBC) [Entitic mass] 30.5 pg Normal 26.0-34.0 [facility] Comment on above: Order Comment: Speci men Type: BLOOD SPECIMEN Performed By: #### 5 7021-8 ####[facility] LABORATORYCLIA [id number] [place] [address] MCHC (RBC) [Mass/Vol] 32.8 g/dL Normal 30.5-36.0 [facility] Comment on above: Order Comment: Speci men Type: BLOOD SPECIMEN Performed By: #### 5 7021-8 ####[facility] LABORATORYCLIA [id number] [place] [address] MCV (RBC) [Entitic vol] 92.9 fL Normal 80.0-100.0 [facility] Comment on above: Order Comment: Speci men Type: BLOOD SPECIMEN Performed By: #### 5 7021-8 ####[facility] LABORATORYCLIA [id number] [place] [address] Monocytes (Bld) [#/Vol] 1.68 10*3/uL High <0.87 [facility] Comment on above: Order Comment: Speci men Type: BLOOD SPECIMEN Performed By: #### 5 7021-8 ####[facility] LABORATORYCLIA [id number] [place] [address] Monocytes/100 WBC (Bld) 11.6 % Normal [facility] Comment on above: Order Comment: Speci men Type: BLOOD SPECIMEN Performed By: #### 5 7021-8 ####[facility] LABORATORYCLIA [id number] [place] [address] Neutrophils (Bld) [#/Vol] 11.04 10*3/uL High 1.45-7.50 [facility] Comment on above: Order Comment: Speci men Type: BLOOD SPECIMEN Performed By: #### 5 7021-8 ####[facility] [id number] [place] [address] Neutrophils/100 WBC (Bld) 76.1 % Normal [facility] Comment on above: Order Comment: Speci men Type: BLOOD SPECIMEN Performed By: #### 5 7021-8 ####[facility]ORYCLIA [id number] [place] [address] Nucleated RBC (Bld) [#/Vol] 10*3/uL Normal <0.01 [facility] Comment on above: Order Comment: Speci men Type: BLOOD SPECIMEN Performed By: #### 5 7021-8 ####[facility]ATORYCLIA [id number] [place] [address] Nucleated RBC/100 WBC (Bld) [Ratio] 0.0 /100 WBC Normal 0.0 [facility] Comment on above: Order Comment: Speci men Type: BLOOD SPECIMEN Performed By: #### 5 7021-8 ####[facility] LABORATORYCLIA [id number] [place] [address] Platelet mean volume (Bld) [Entitic vol] 10.3 fL Normal 9.0-12.7 [facility] Comment on above: Order Comment: Speci men Type: BLOOD SPECIMEN Performed By: #### 5 7021-8 ####[facility] LABORATORYCLIA [id number] [place] [address] Platelets (Bld) [#/Vol] 249 10*3/uL Normal 150-400 [facility] Comment on above: Order Comment: Speci men Type: BLOOD SPECIMEN Performed By: #### 5 7021-8 ####[facility]ORYCLIA [id number] [place] [address] RBC (Bld) [#/Vol] 4.20 10*6/uL Normal 3.90-5.20 [facility] Comment on above: Order Comment: Speci men Type: BLOOD SPECIMEN Performed By: #### 5 7021-8 ####[facility]ORYCLIA [id number] [place] [address] WBC (Bld) [#/Vol] 14.50 10*3/uL High 3.70-11.00 [facility] Comment on above: Order Comment: Speci men Type: BLOOD SPECIMEN Performed By: #### 5 7021-8 ####[facility]ORYCLIA [id number] [place] [address] Basophils (Bld) [#/Vol] 0.03 10*3/uL Normal <0.11 [facility] Comment on above: Order Comment: Speci men Type: BLOOD SPECIMEN Performed By: #### 5 8410-2 #### [facility] CLIA [id number] [address] [place] [address] [place] Basophils/100 WBC (Bld) 0.2 % Normal [facility] Comment on above: Order Comment: Speci men Type: BLOOD SPECIMEN Performed By: #### 5 8410-2 #### [facility] CLIA [id number] [address] [place] [address] [facility] Differential cell count method Nom (Bld) Auto Normal [facility] Comment on above: Order Comment: Speci men Type: BLOOD SPECIMEN Performed By: #### 5 8410-2 #### [facility] CLIA [id number] [address] [place] [address] [place] Eosinophils (Bld) [#/Vol] 10*3/uL Normal <0.46 [facility] Comment on above: Order Comment: Speci men Type: BLOOD SPECIMEN Performed By: #### 5 8410-2 #### [facility] CLIA [id number] [address] [place] [address] [facility] [place] Eosinophils/100 WBC (Bld) 0.0 % Normal [facility] Comment on above: Order Comment: Speci men Type: BLOOD SPECIMEN Performed By: #### 5 8410-2 #### [facility] CLIA [id number] [address] [place] [address] [place] Erythrocyte distribution width (RBC) [Ratio] 13.1 % Normal 11.5-15.0 [facility] Comment on above: Order Comment: Speci men Type: BLOOD SPECIMEN Performed By: #### 5 8410-2 #### [facility] CLIA [id number] [address] [place] [address] [place] Hematocrit (Bld) [Volume fraction] 41.3 % Normal 36.0-46.0 [facility] Comment on above: Order Comment: Speci men Type: BLOOD SPECIMEN Performed By: #### 5 8410-2 #### [facility] CLIA [id number] [address] [facility] [place] [address] [facility] [place] Hemoglobin (Bld) [Mass/Vol] 13.9 g/dL Normal 11.5-15.5 [facility] Comment on above: Order Comment: Speci men Type: BLOOD SPECIMEN Performed By: #### 5 8410-2 #### [facility] CLIA [id number] [address] [place] [address] [facility] IMMATURE GRAN % 0.5 % Normal [facility] Comment on above: Order Comment: Speci men Type: BLOOD SPECIMEN Performed By: #### 5 8410-2 #### [facility] CLIA [id number] [address] [facility] [place] [address] [facility] [place] IMMATURE GRAN ABS 0.08 k/uL Normal <0.10 [facility] Comment on above: Order Comment: Speci men Type: BLOOD SPECIMEN Performed By: #### 5 8410-2 #### [facility] CLIA [id number] [address] [place] [address] [facility] Lymphocytes (Bld) [#/Vol] 1.25 10*3/uL Normal 1.00-4.00 [facility] Comment on above: Order Comment: Speci men Type: BLOOD SPECIMEN Performed By: #### 5 8410-2 #### [facility] CLIA [id number] [address] [facility] [place] [address] [facility] [place] Lymphocytes/100 WBC (Bld) 8.5 % Normal [facility] Comment on above: Order Comment: Speci men Type: BLOOD SPECIMEN Performed By: #### 5 8410-2 #### [facility] CLIA [id number] [address] [facility] [place] [address] [place] MCH (RBC) [Entitic mass] 30.8 pg Normal 26.0-34.0 [facility] Comment on above: Order Comment: Speci men Type: BLOOD SPECIMEN Performed By: #### 5 8410-2 #### [facility] CLIA [id number] [address] [facility] [place] [address] [place] MCHC (RBC) [Mass/Vol] 33.7 g/dL Normal 30.5-36.0 [facility] Comment on above: Order Comment: Speci men Type: BLOOD SPECIMEN Performed By: #### 5 8410-2 #### [facility] CLIA [id number] [address] [facility] [place] [address] [place] MCV (RBC) [Entitic vol] 91.4 fL Normal 80.0-100.0 [facility] Comment on above: Order Comment: Speci men Type: BLOOD SPECIMEN Performed By: #### 5 8410-2 #### [facility] CLIA [id number] [address] [facility] [place] [address] [place] Monocytes (Bld) [#/Vol] 1.42 10*3/uL High <0.87 [facility] Comment on above: Order Comment: Speci men Type: BLOOD SPECIMEN Performed By: #### 5 8410-2 #### [facility] CLIA [id number] [address] [facility] [place] [address] [place] Monocytes/100 WBC (Bld) 9.7 % Normal [facility] Comment on above: Order Comment: Speci men Type: BLOOD SPECIMEN Performed By: #### 5 8410-2 #### [facility] CLIA [id number] [address] [facility] [place] [address] [place] Neutrophils (Bld) [#/Vol] 11.93 10*3/uL High 1.45-7.50 [facility] Comment on above: Order Comment: Speci men Type: BLOOD SPECIMEN Performed By: #### 5 8410-2 #### [facility] CLIA [id number] [address] [facility] [place] [address] [place] Neutrophils/100 WBC (Bld) 81.1 % Normal [facility] Comment on above: Order Comment: Speci men Type: BLOOD SPECIMEN Performed By: #### 5 8410-2 #### [facility] CLIA [id number] [address] [facility] [place] [address] [place] Nucleated RBC (Bld) [#/Vol] 10*3/uL Normal <0.01 [facility] Comment on above: Order Comment: Speci men Type: BLOOD SPECIMEN Performed By: #### 5 8410-2 #### [facility] CLIA [id number] [address] [facility] [place] [address] [place] Nucleated RBC/100 WBC (Bld) [Ratio] 0.0 /100 WBC Normal 0.0 [facility] Comment on above: Order Comment: Speci men Type: BLOOD SPECIMEN Performed By: #### 5 8410-2 #### [facility] CLIA [id number] [address] [facility] [address] [place] Platelet mean volume (Bld) [Entitic vol] 10.1 fL Normal 9.0-12.7 [facility] Comment on above: Order Comment: Speci men Type: BLOOD SPECIMEN Performed By: #### 5 8410-2 #### [facility] CLIA [id number] [address] [facility] [place] [address] [place] Platelets (Bld) [#/Vol] 282 10*3/uL Normal 150-400 [facility] Comment on above: Order Comment: Speci men Type: BLOOD SPECIMEN Performed By: #### 5 8410-2 #### [facility] CLIA [id number] [address] [facility] [address] [place] RBC (Bld) [#/Vol] 4.52 10*6/uL Normal 3.90-5.20 [facility] Comment on above: Order Comment: Speci men Type: BLOOD SPECIMEN Performed By: #### 5 8410-2 #### [facility] CLIA [id number] [address] [place] [address] [place] WBC (Bld) [#/Vol] 14.71 10*3/uL High 3.70-11.00 [facility] Comment on above: Order Comment: Speci men Type: BLOOD SPECIMEN Performed By: #### 5 8410-2 #### [facility] CLIA [id number] [address] [place] [address] [facility] [place] CK CREATINE KINASEon 020 CK [Catalytic activity/Vol] 1014 U/L High 42-196 [facility] Comment on above: Order Comment: Speci men Type: BLOOD SPECIMEN Performed By: #### 5 8410-2 #### [facility] CLIA [id number] [address] [place] [address] CK [Catalytic activity/Vol] 1157 U/L High 42-196 [facility] Comment on above: Order Comment: Speci men Type: BLOOD SPECIMEN Performed By: #### 5 8410-2 #### [facility] CLIA [id number] [address] [place] [address] CK [Catalytic activity/Vol] 1267 U/L High 42-196 [facility] Comment on above: Order Comment: Speci men Type: BLOOD SPECIMEN Performed By: #### 5 8410-2 #### [facility] CLIA [id number] [address] [place] [address] [facility] [place] CK TOTAL AND CK-MBon 020 CK [Catalytic activity/Vol] 1387 U/L High 42-196 [facility] Comment on above: Order Comment: Speci men Type: BLOOD SPECIMEN Performed By: #### C ONABO #### [facility] CLIA [id number] CK.MB [Mass/Vol] 5.9 ng/mL High <4.4 [facility] Comment on above: Order Comment: Speci men Type: BLOOD SPECIMEN Performed By: #### C ONABO #### [facility] CLIA [id number] CK.MB [Ratio] 40 {ratio} Normal 0.0-4.0 [facility] Comment on above: Order Comment: Speci men Type: BLOOD SPECIMEN Performed By: #### C ONABO #### [facility] CLIA [id number] CONFIRM BLOOD TYPEon 020 ABO AB Normal [facility] Comment on above: Order Comment: Speci men Type: BLOOD SPECIMEN Performed By: #### C ONABO #### [facility] CLIA [id number] Rh Nom (Bld) Positive Normal [facility] Comment on above: Order Comment: Speci men Type: BLOOD SPECIMEN Result Comment: DC n eg Performed By: #### C ONABO #### [facility] CLIA [id number] CONSULTon 03-09-2020 CONSULT HNO ID: [id number] Author: Leland Herrera Service: Orthopaedic Surgery Author Type: Physician Type: Consults Filed: 03/09/2020 10:50 AM Note Text: ORTHOPAEDIC SURGERY CONSULT Pt: LISA Rodas FERN Date of Consultation: 03/09/2020 Physician Consulted: Dr. Herrera Reason for Consultation: Left trimalleolar fracture ORTHO STAFF: History and physical examination reviewed. Orthopaedic consultation reviewed. Patient seen and examined. Agree with orthopaedic resident assessment and plan. Recommend operative stabilization left trimalleolar ankle fracture-dislocation, when medically appropriate. Patient answering more questions this morning than reported previously. Reviewed injury basics with her, including future surgical plan for functional roman catholic. Anticipate surgery 03/12/2020 depending on ongoing evaluation and recovery. Leland Herrera MD HPI: 74 year old female presented to [facility] as a transfer from [place] for stroke with orthopaedics being consulted for a left trimalleolar fracture. Patient is delirious at bedside and is not answering questions. She was found down at home. Patient had not been seen since Thursday. PAST MEDICAL HISTORY Diagnosis Date - Anxiety - Chest pain - Chronic pain sensitive to Cymbalta - Degeneration of lumbar intervertebral disc - Depression - Diabetes (HCC) - Diabetic polyneuropathy associated with type 2 diabetes mellitus (HCC) - Disorder of sacrum - Essential hypertension - Fatigue - Generalized anxiety disorder sensi to Cymbalta, etc; PREFERS XANAX only tok ok 09/08 - History of cerebrovascular accident - Hyperlipidemia - Hypertension - IBS (irritable bowel syndrome) - Idiopathic osteoporosis - Insomnia - Low back pain - Lumbar radiculopathy - Major depressive disorder - Morbid obesity (HCC) BMI 47 - Neuropathy - Obstructive sleep apnea syndrome - Osteoporosis - Panic state as acute reaction to stress - Sleep disorder - Stroke (HCC) - 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) - Vitamin B12 deficiency (non anemic) - Vitamin D deficiency PAST SURGICAL HISTORY Procedure Laterality Date - CHOLECYSTECTOMY HX - COLONOSCOPY usually had some polyps 2009 Allergies: Sofia Inhibitors, Actos [Pioglitazone], Buspar [Buspirone], Crestor [Rosuvastatin Calcium], Glimepiride, Glipizide, Lexapro [Escitalopram Oxalate], Meloxicam, Metformin, Nsaids (Non-Steroidal Anti-Inflammatory Drug), Prednisone, and Seroquel [Quetiapine] Current Facility-Administered Medications Medication Dose Route Frequency - fentaNYL 50 mcg/mL 25 mcg injection (SUBLIMAZE) 25 mcg INTRAVENOUS q 2 H PRN - dextrose 5% in NaCl 0.45% iv infusion 100 mL/hr INTRAVENOUS CONTINUOUS - piperacillin-tazobactam iv piggyback 3.375 g in dextrose (iso-osmotic) 50 mL (ZOSYN) 3.375 g INTRAVENOUS q 6 H - vancomycin iv piggyback 1.5 g in D5W 250 mL (VANCOCIN) 1.5 g INTRAVENOUS q 24 H - vancomycin dosing and monitoring per pharmacy OTHER As Directed - miconazole 2 % 1 application topical powder (LOTRIMIN AF, DESENEX) 1 application TOPICAL BID - docusate 100 mg oral liquid (DIOCTO, COLACE) 100 mg ORAL/FEEDING TUBE BID - bisacodyl 10 mg suppository (DULCOLAX) 10 mg RECTAL DAILY PRN - ondansetron (PF) 4 mg injection (ZOFRAN) 4 mg INTRAVENOUS q 4 H PRN - heparin 5,000 Units injection 5,000 Units SUBCUTANEOUS q 8 H - sodium chloride 0.9 % (flush) 3-5 mL (BD POSIFLUSH) 3-5 mL INTRAVENOUS q 12 H - sodium chloride 0.9 % (flush) 10 mL (BD POSIFLUSH) 10 mL INTRAVENOUS q 12 H - sodium chloride 0.9 % (flush) 20 mL (BD POSIFLUSH) 20 mL INTRAVENOUS PRN - famotidine 20 mg injection (PEPCID) 20 mg INTRAVENOUS BID - acetaminophen 650 mg tab(s) (TYLENOL) 650 mg ORAL/FEEDING TUBE q 4 H PRN Or - acetaminophen 650 mg CUP (TYLENOL) 650 mg ORAL/FEEDING TUBE q 4 H PRN Or - acetaminophen 650 mg suppository (TYLENOL) 650 mg RECTAL q 4 H PRN - labetalol 10 mg injection syringe (NORMODYNE) 10 mg INTRAVENOUS q 2 H PRN - insulin regular human 100 Units in NaCl 0.9% 100 mL - ICU NOMOGRAM 0.5 Units/kg/hr INTRAVENOUS CONTINUOUS - dextrose 40 % 15 g 15 g ORAL PRN Or - glucagon 1 mg injection 1 mg INTRAMUSCULAR PRN Or - dextrose 50% in water 25 mL syringe 12.5 g INTRAVENOUS PRN - perflutren lipid microspheres 1.1 mg/mL 1.3 mL injection (DEFINITY) 1.3 mL INTRAVENOUS DIRECTED PRN FAMILY HISTORY Problem Relation Age of Onset - Colon Cancer Father - Cancer Father - other (Lung cancer) Mother - other (Diverticulitis) Brother Negative for family history of bleeding and clotting disorders. Social History Tobacco Use - Smoking status: Never Smoker - Smokeless tobacco: Never Used - Tobacco comment: Never smoked; Tobacco reviewed with patient 12/04/2015 Substance Use Topics - Alcohol use: No Comment: Non-drinker - Drug use: No ROS: 10 pt ROS neg except in HPI O: Vitals: BP (!) 147/49 Pulse 101 Temp (!) 38.2 ?C (100.8 ?F) Resp 19 Ht 167.6 cm (5' 6") Wt 107.2 kg (236 lb 5.3 oz) SpO2 99% BMI 38.15 kg/m? Physical exam: General: Unable to assess A/O- not answering questions Extremity: Left Lower Extremity: No open wound, lacerations or areas of ecchymosis. NTTP over foot, heel, leg, knee, distal thigh. Negative logroll and axial loading. TTP of ankle Unable to assess motor and sensory exam due to mental status DP pulse palpable, foot warm with brisk capillary refill Compartments soft, compressible. Tolerates passive stretch of digits. Labs: BMP: Sodium 134 03/08/2020 Potassium 4.2 03/08/2020 Chloride 94 03/08/2020 CO2 20 03/08/2020 BUN 24 03/08/2020 Creatinine 1.18 03/08/2020 Glucose 398 03/08/2020 CBC: WBC 14.50 03/09/2020 Hemoglobin 12.8 03/09/2020 Hematocrit 39.0 03/09/2020 Platelet Count 249 03/09/2020 COAGS: APTT 23.7 03/08/2020 PT INR 1.1 03/08/2020 SED RATE/CRP: No results found for this basename: wsr:*,crp:* Imaging: -XR of the left ankle prereduction obtained, reviewed and demonstrates a left trimalleolar fracture with a posterior dislocation of the talus XR of the left ankle postreduction obtained, reviewed and demonstrates a left trimalleolar fracture wth improve alignment. Procedure Note: Unable to discuss risks/limitations/benefits/ alternatives with patient due to mental status. It was determined that the risks of keep the ankle dislocated were too high and we proceeded with left ankle reduction.. Timeout performed. Site for left ankle reduction identified, marked and sterilely prepped. 10cc of 1% lidocaine was injected into the ankle joint as a hematoma block with a 22g needle and 30 gauge syringe. After adequate anesthesia, the left ankle was reduced and placed into a Posterior-U splint. Postreduction imaging was obtained. Patient tolerated procedure well without complication. A/P: 74 year old female with left trimalleolar fracture - Medical management per primary - Pain control per primary - Orthopaedic planning TBD - Ice/elevate LLE - NWB LLE - Splint in place, maintain, keep c/d/i - Patient to be discussed with Dr. Herrera with plan adjusted accordingly Akin Rogers MD Orthopaedic Surgery 03/09/2020 3:55 AM Normal [facility] CONSULT PROGon 03-09-2020 CONSULT PROG HNO ID: [id number] Author: Temitope Moore (Pharmacist) Service: Pharmacy Author Type: Pharmacist Type: Consult Progress Note Filed: 03/09/2020 2:39 AM Note Text: PHARMACY VANCOMYCIN DOSING NOTE Patient Name: Lisa Shirley Admission Date: 03/08/2020 Date of Consult: 03/09/2020 Time of Consult: 2:36 AM Indication: Pneumonia Goal Range: 10-20 mcg/mL RECOMMENDATIONS/PLAN: Pharmacy consulted for vancomycin dosing for Lisa Shirley, a 74 year old, female who is being treated with vancomycin for PNA. 1. Patient is currently ordered Vancomycin 1.5 g IV q12h. Today is day 1 of therapy. 2. No vancomycin level has been drawn for this dosing regimen. 3. Will adjust vancomycin to 1.5 g with a dosing interval of q24h 4. The next vancomycin level will be ordered for 03/12/2020 @ 0200 prior to the 4th dose of the regimen unless clinically indicated sooner. (Pharmacy will order) 5. S. aureus nasal PCR swab ordered We will follow patient renal function, vancomycin levels and doses with you during the course of therapy. Additional recommendations will appear in follow up notes. If [place] have any questions[place] [phone]. Age: [age] year old Allergies: ALLERGIES Allergen Reactions - Sofia Inhibitors Contraindication-Medical Surgical Chronic kidney disease - Actos [Pioglitazone] Intolerance - Buspar [Buspirone] Intolerance rem behavior disorder - Crestor [Rosuvastat* Unknown Sensitivity - Glimepiride Intolerance - Glipizide Intolerance - Lexapro [Escitalopr* Mental Status Change - Meloxicam Unknown - Metformin Contraindication-Medical Surgical Chronic kidney disease - Nsaids (Non-Steroid* Contraindication-Medical Surgical Chronic kidney disease - Prednisone Unknown Sensitivity - Seroquel [Quetiapin* Intolerance Last 3 Encounter Wt Readings: Date: Wt: 03/08/2020 107.2 kg (236 lb 5.3 oz) 03/08/2020 101.7 kg (224 lb 3.3 oz) 11/11/2019 96.3 kg (212 lb 3.2 oz) Last 1 Encounter Ht Readings: Date: Ht: 03/08/2020 167.6 cm (5' 6") CrCl: 53.4 mL/min Temp (24hrs), Av.4 ?C (101.1 ?F), Min:38.2 ?C (100.8 ?F), Max:38.5 ?C (101.3 ?F) - Current Temp: (!) 38.2 ?C (100.8 ?F) Labs BUN (mg/dL) Date Value 03/08/2020 25 (H) 03/08/2020 25 (H) 03/08/2020 24 (H) 11/07/2019 16 03/14/2019 17 09/03/2018 24 (H) Creatinine (mg/dL) Date Value 03/08/2020 1.18 (H) 03/08/2020 1.18 (H) 03/08/2020 1.30 (H) 11/07/2019 1.39 (H) 03/14/2019 1.31 (H) 09/03/2018 1.24 (H) WBC Date Value 03/08/2020 14.71 k/uL (H) 03/08/2020 13.06 k/uL (H) 03/14/2019 6.1 thou/cmm 11/21/2017 6.5 thou/cmm 09/07/2017 5.48 k/uL Vancomycin Levels: No results found for: GATO MOORE, PHARMACIST Normal [facility] Comp Metab 2000 Pnl SerPlon 03-09-2020 Albumin [Mass/Vol] 4.0 g/dL Normal 3.9-4.9 [facility] Comment on above: Order Comment: Speci men Type: BLOOD SPECIMEN Performed By: #### 2 4321-2 #### [facility] CLIA [id number] [address] [place] [address] ALP [Catalytic activity/Vol] 87 U/L Normal 34-123 [facility] Comment on above: Order Comment: Speci men Type: BLOOD SPECIMEN Performed By: #### 2 4321-2 #### [facility] CLIA [id number] [address] [place] [address] ALT With P-5'-P [Catalytic activity/Vol] 18 U/L Normal 7-38 [facility] Comment on above: Order Comment: Speci men Type: BLOOD SPECIMEN Performed By: #### 2 4321-2 #### [facility] CLIA [id number] [address] [place] [address] AST With P-5'-P [Catalytic activity/Vol] 24 U/L Normal 13-35 [facility] Comment on above: Order Comment: Speci men Type: BLOOD SPECIMEN Performed By: #### 2 4321-2 #### [facility] CLIA [id number] [address] [place] [address] Bilirubin [Mass/Vol] 0.8 mg/dL Normal 0.2-1.3 [facility] Comment on above: Order Comment: Speci men Type: BLOOD SPECIMEN Performed By: #### 2 4321-2 #### [facility] CLIA [id number] [address] [place] [address] Calcium [Mass/Vol] 8.9 mg/dL Normal 8.5-10.2 [facility] Comment on above: Order Comment: Speci men Type: BLOOD SPECIMEN Performed By: #### 2 4321-2 #### [facility] CLIA [id number] [address] [place] [address] CO2 [Moles/Vol] 20 mmol/L Low 22-30 [facility] Comment on above: Order Comment: Speci men Type: BLOOD SPECIMEN Performed By: #### 2 4321-2 #### [facility] CLIA [id number] [address] [place] [address] Potassium [Moles/Vol] 4.2 mmol/L Normal 3.7-5.1 [facility] Comment on above: Order Comment: Speci men Type: BLOOD SPECIMEN Performed By: #### 2 4321-2 #### [facility] CLIA [id number] [address] [place] [address] Protein [Mass/Vol] 7.5 g/dL Normal 6.3-8.0 [facility] Comment on above: Order Comment: Speci men Type: BLOOD SPECIMEN Performed By: #### 2 4321-2 #### [facility] CLIA [id number] [address] [place] [address] Gas + CO Pnl BldVon 03-09-20 20 Base excess Calc (BldV) [Moles/Vol] 0.1 mmol/L Normal 0-2 [facility] Comment on above: Order Comment: Speci men Type: VENOUS BLOOD SPECIMEN Performed By: #### 2 4344-4 ####[facility] [id number] [place] [address] CALCIUM IONIZED, PH CORRECTED 1.23 mmol/L Normal 1.08-1.30 [facility] Comment on above: Order Comment: Speci men Type: VENOUS BLOOD SPECIMEN Performed By: #### 2 4344-4 ####[facility] [id number] [place] [address] Calcium.ionized (BldV) [Mass/Vol] 1.22 mmol/L Normal 1.08-1.30 [facility] Comment on above: Order Comment: Speci men Type: VENOUS BLOOD SPECIMEN Performed By: #### 2 4344-4 ####[facility] [id number] [place] [address] Carboxyhemoglobin (BldV) [Mass fraction] 1.2 % Normal Non Smoker: <2.1, Smoker: 2-8 [facility] Comment on above: Order Comment: Speci men Type: VENOUS BLOOD SPECIMEN Performed By: #### 2 4344-4 ####[facility] [id number] [place] [address] CO2 (BldV) [Partial pressure] 38 mm[Hg] Low 42-55 [facility] Comment on above: Order Comment: Speci men Type: VENOUS BLOOD SPECIMEN Performed By: #### 2 4344-4 ####[facility] [id number] [place] [address] CO2 [Moles/Vol] 21.4 mmol/L Low 25-29 [facility] Comment on above: Order Comment: Speci men Type: VENOUS BLOOD SPECIMEN Performed By: #### 2 4344-4 ####[facility] [id number] [place] [address] Glucose [Mass/Vol] 188 mg/dL High 60-105 [facility] Comment on above: Order Comment: Speci men Type: VENOUS BLOOD SPECIMEN Performed By: #### 2 4344-4 ####[facility] [id number] [place] [address] HCO3 (Bld) [Moles/Vol] 23.9 mmol/L Low 24-28 [facility] Comment on above: Order Comment: Speci men Type: VENOUS BLOOD SPECIMEN Performed By: #### 2 4344-4 ####[facility] [id number] [place] [address] Hematocrit (Bld) [Volume fraction] 40.5 % Normal 36.0-46.0 [facility] Comment on above: Order Comment: Speci men Type: VENOUS BLOOD SPECIMEN Performed By: #### 2 4344-4 ####[facility] [id number] [place] [address] Hemoglobin (Bld) [Mass/Vol] 13.2 g/dL Normal 11.5-15.5 [facility] Comment on above: Order Comment: Speci men Type: VENOUS BLOOD SPECIMEN Performed By: #### 2 4344-4 ####[facility] [id number] [place] [address] Methemoglobin (Bld) [Mass fraction] % Normal 0.0-1.5 [facility] Comment on above: Order Comment: Speci men Type: VENOUS BLOOD SPECIMEN Performed By: #### 2 4344-4 ####[facility] [id number] [place] [address] O2 THERAPY NC = Nasal Cannula Normal [facility] Comment on above: Order Comment: Speci men Type: VENOUS BLOOD SPECIMEN Performed By: #### 2 4344-4 ####[facility] [id number] [place] [address] Oxygen (BldV) [Partial pressure] 36 mm[Hg] Normal 35-45 [facility] Comment on above: Order Comment: Speci men Type: VENOUS BLOOD SPECIMEN Performed By: #### 2 4344-4 ####[facility] [id number] [place] [address] Oxygen saturation in Blood 65.1 % Normal 60-85 [facility] Comment on above: Order Comment: Speci men Type: VENOUS BLOOD SPECIMEN Performed By: #### 2 4344-4 ####[facility] [id number] [place] [address] Oxyhemoglobin (BldV) [Mass fraction] 64 % Normal 60-85 [facility] Comment on above: Order Comment: Speci men Type: VENOUS BLOOD SPECIMEN Performed By: #### 2 4344-4 ####[facility]IA [id number] [place] [address] pH (BldV) 7.42 [pH] Normal 7.32-7.42 [facility] Comment on above: Order Comment: Speci men Type: VENOUS BLOOD SPECIMEN Performed By: #### 2 4344-4 ####[facility]ORYCLIA [id number] [place] [address] Sodium [Moles/Vol] 140 mmol/L Normal 136-144 [facility] Comment on above: Order Comment: Speci men Type: VENOUS BLOOD SPECIMEN Performed By: #### 2 4344-4 ####[facility]ORYCLIA [id number] [place] [address] HGB A1Con 03-09-2020 Average glucose Estimated from glycated hemoglobin mass conc (Bld) 229 mg/dL Normal [facility] Comment on above: Order Comment: Speci [facility] Type: BLOOD SPECIMEN Result Comment: eAG: (Estimated average glucose) is a calculated value from HgbA1c and is union contract representative of the average blood glucose level in the last 2-3 month period. Performed By: #### H BA1C ####[facility]ORYCLIA [id number] [place] [address] HbA1c (Bld) [Mass fraction] 9.6 % High 4.3-5.6 [facility] Comment on above: Order Comment: Speci [facility] Type: BLOOD SPECIMEN Result Comment: Amer [place] Diabetes Association guidelines indicate that patients with HgbA1c in the range 5.7-6.4% are at increased risk for development of diabetes, and intervention by lifestyle modification may be beneficial. HgbA1c greater or equal to 6.5% is considered diagnostic of diabetes. Performed By: #### H BA1C ####[facility]ORYCLIA [id number] [place] [address] HIGH SENSITIVITY TROPONIN To n 03-09-2020 HIGH SENSITIVITY MAXIMILIANO 35 ng/L High <12 [facility] Comment on above: Order Comment: Speci [facility] Type: BLOOD SPECIMEN Result Comment: When assessing risk for acute coronary syndromes: In patients undergoing blood draw greater than or equal to 2 hours from symptom onset, with history of very low to moderate risk and non-ischemic ECG, an initial hs-Troponin T less than 12 ng/L AND a 1 hour delta hs-Troponin T less than 3 ng/L should be considered very low risk for 30 day MACE. Performed By: #### 5 8410-2 #### [facility] CLIA [id number] [address] [place] [address] HIGH SENSITIVITY MAXIMILIANO 65 ng/L High <12 [facility] Comment on above: Order Comment: Speci men Type: BLOOD SPECIMEN Result Comment: When assessing risk for acute coronary syndromes: In patients undergoing blood draw greater than or equal to 2 hours from symptom onset, with history of very low to moderate risk and non-ischemic ECG, an initial hs-Troponin T less than 12 ng/L AND a 1 hour delta hs-Troponin T less than 3 ng/L should be considered very low risk for 30 day MACE. Urgent value: Performed By: #### H STNT #### [facility] CLIA [id number] [address] [place] [address] HIGH SENSITIVITY MAXIMILIANO 58 ng/L High <12 [facility] Comment on above: Order Comment: Speci men Type: BLOOD SPECIMEN Result Comment: When assessing risk for acute coronary syndromes: In patients undergoing blood draw greater than or equal to 2 hours from symptom onset, with history of very low to moderate risk and non-ischemic ECG, an initial hs-Troponin T less than 12 ng/L AND a 1 hour delta hs-Troponin T less than 3 ng/L should be considered very low risk for 30 day MACE. Urgent value: Performed By: #### 5 8410-2 #### [facility] CLIA [id number] [address] [place] [address] HISTORY PHYSICALon 0 HISTORY PHYSICAL HNO ID: [id number] Author: Akin Schwab Service: Neurology ICU Author Type: Physician Type: HANDP Filed: 03/09/2020 8:22 AM Note Text: SERVICE DATE: 03/08/2020 SERVICE TIME: 11:00PM NEUROLOGICAL INTENSIVE CARE UNIT HISTORY AND PHYSICAL (STROKE CARE PATH) REASON FOR STROKE EVALUATION: Left Sided Weakness, Dysarthria and Facial droop REASON FOR NEUROLOGICAL ICU ADMISSION: Acute R MCA stroke Stroke Mechanism: METRICS: Initial NIHSS Score: 20 [place] Coma Scale Totals (Calculated): 14 Date Patient Last Known Well: 03/06/20 Date of Patient Arrival at THIS Facility: 03/08/20 Time of Patient Arrival at THIS Facility: 2154 Pre-admission: Was patient on antithrombotic agent prior to admission: No Premorbid Modified Meeta Score: 0=0 - No symptoms at all Baseline Functional Status (i.e. ADL's, Ambulatory Status, Cognitive Issues): Lives alone, ambulatory at baseline, AANDOx3. Subjective HPI: Patient is a 74 year old female with past medical history significant for DM type II, HTN, CKD stage 3, HLD, SEE, major depressive disorder, GERD, Insomnia, and IBS who presents as transfer from [facility] with findings of acute R MCA stroke. Patient was reportedly found down at home and had not been seen since Thursday. Police sent to home for welfare check. Per son, there was an email sent yesterday to him from her so unsure if LKW was 1 or 2 days ago. Patient found to have left sided deficits, dysarthria and left ankle bruising/swelling. Patient reportedly has hx of stroke but no prior deficits. In ED at [facility], stroke eval performed with CT findings of R caudate, insula and frontal evolving infarcts. ASPECTS score 5. CTA nondiagnostic as contrast infiltrated in arm and IV access lost during scan. Central line placed at [facility] for access. Patient out of window for tPA and also no role for endovascular therapy given 24-48hours out and evidence of evolving infarct on CT. Patient also found to be in DKA with glucose >500, ketones and anion gap of 21. Given SQ insulin at OSH. CK elevated >1,000. Given IVF. Patient hypertensive, tachycardic and febrile. COVID negative. Left ankle fracture by XR. Patient subsequently transferred here to [facility] for further stroke workup and management. PAST MEDICAL HISTORY Diagnosis Date - Anxiety - Chest pain - Chronic pain sensitive to Cymbalta - Degeneration of lumbar intervertebral disc - Depression - Diabetes (HCC) - Diabetic polyneuropathy associated with type 2 diabetes mellitus (HCC) - Disorder of sacrum - Essential hypertension - Fatigue - Generalized anxiety disorder sensi to Cymbalta, etc; PREFERS XANAX only tok ok 09/08 - History of cerebrovascular accident - Hyperlipidemia - Hypertension - IBS (irritable bowel syndrome) - Idiopathic osteoporosis - Insomnia - Low back pain - Lumbar radiculopathy - Major depressive disorder - Morbid obesity (HCC) BMI 47 - Neuropathy - Obstructive sleep apnea syndrome - Osteoporosis - Panic state as acute reaction to stress - Sleep disorder - Stroke (HCC) - 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) - Vitamin B12 deficiency (non anemic) - Vitamin D deficiency PAST SURGICAL HISTORY Procedure Laterality Date - CHOLECYSTECTOMY HX - COLONOSCOPY usually had some polyps 2009 FAMILY HISTORY Problem Relation Age of Onset - Colon Cancer Father - Cancer Father - other (Lung cancer) Mother - other (Diverticulitis) Brother Social History Tobacco Use - Smoking status: Never Smoker - Smokeless tobacco: Never Used - Tobacco comment: Never smoked; Tobacco reviewed with patient 12/04/2015 Substance Use Topics - Alcohol use: No Comment: Non-drinker - Drug use: No MEDICATIONS Prior to Admission - zolpidem (AMBIEN) 5 mg tablet, Take 1 tablet by mouth at bedtime as needed for up to 90 days., Disp: 90 tablet, Rfl: 0 - oxyCODONE-acetaminophen (PERCOCET) 5-325 mg tablet, Take 1 tablet by mouth every 8 hours as needed for Pain for up to 30 days., Disp: 90 tablet, Rfl: 0 - diltiazem CD (CARDIZEM CD, CARTIA XT) 240 mg 24 hr capsule, TAKE 1 CAPSULE BY MOUTH EVERY DAY, Disp: 30 capsule, Rfl: 1 - ALPRAZolam (XANAX) 0.5 mg tablet, Take 1 tablet by mouth three times daily as needed for up to 90 days., Disp: 270 tablet, Rfl: 0 - glipiZIDE (GLUCOTROL) 5 mg tablet, Take 1 tablet by mouth twice daily before meals., Disp: 180 tablet, Rfl: 1 - sitaGLIPtin (JANUVIA) 100 mg tablet, Take 1 tablet by mouth once daily., Disp: 90 tablet, Rfl: 0 - ALPRAZolam (XANAX) 0.5 mg tablet, Take 1 tablet by mouth three times daily as needed for up to 30 days., Disp: 90 tablet, Rfl: 0 - polyethylene glycol 3350 (MIRALAX ORAL), Take by mouth., Disp: , Rfl: - nitroglycerin sublingual (NITROQUICK) 0.4 mg SL tablet, Dissolve 1 tablet under the tongue every 5 minutes as needed., Disp: 1 Bottle of 25, Rfl: 2 - calcium carbonate (CALCIUM 600) 600 mg calcium (1,500 mg) tab, Take 600 mg by mouth three times daily., Disp: , Rfl: - BIFIDOBACTERIUM INFANTIS (ALIGN ORAL), Take by mouth once daily., Disp: , Rfl: ALLERGIES Allergen Reactions - Sofia Inhibitors Contraindication-Medical Surgical Chronic kidney disease - Actos [Pioglitazone] Intolerance - Buspar [Buspirone] Intolerance rem behavior disorder - Crestor [Rosuvastat* Unknown Sensitivity - Glimepiride Intolerance - Glipizide Intolerance - Lexapro [Escitalopr* Mental Status Change - Meloxicam Unknown - Metformin Contraindication-Medical Surgical Chronic kidney disease - Nsaids (Non-Steroid* Contraindication-Medical Surgical Chronic kidney disease - Prednisone Unknown Sensitivity - Seroquel [Quetiapin* Intolerance COMPLETE REVIEW OF SYSTEMS Unable to obtain ROS 2/2 patient aphasia/AMS Objective BP 153/96 Pulse 109 Temp (!) 38.5 ?C (101.3 ?F) Resp 29 SpO2 96% PHYSICAL EXAM: GCS: Eyes: 4. Spontaneous Verbal: 3: Inappropriate words Motor: 6: Obeys Motor commands Total: 13 CV: Sinus tachycardia, S1/S2 Pulm: CTA bilaterally, even and unlabored on RA. GI/: Abdomen soft, non tender, non distended Skin/Extremities: Edema- No Peripheral pulses- Present all extremities Wounds/Drsgs- Yes Left ankle wrapped/dressed (fx). Breakdown- No NEUROLOGICAL: MOTOR STRENGTH: Minimal movement 1/5 to LUE/LLE, 5/5 RUE (reaching for things in the air with RUE), 3/5 RLE SENSATION: Diminished light touch on the L COORDINATION:Unable to assess iNIHSS LOC: 0 - alert and responsive 0 LOC Questions: 1 - one correct 1 LOC Commands: 1 - one correct 1 Best Gaze: 1 - partial gaze palsy, abnormal gaze in 1 or both eyes 1 Visual: 2 - complete hemianopia 2 Facial Palsy: 2 - partial paralysis 2 Motor Left Arm: 3 - no antigravity effort but even minimal movements count 3 Motor Right Arm: 0 - no drift 0 Motor Left Le - no antigravity effort but even minimal movements count 3 Motor Right Le - some antigravity effort but cannot sustain 2 Limb Ataxia: 0 - no ataxia (or aphasic, hemiplegic) 0 Sensory: 2 - total loss, patient unaware of touch. coma, bilateral loss 2 Best Language: 1 - mild-mod aphasia (comprehensible) 1 Dysarthria: 1 - mild-mod slurred 1 Extinction and Inattention: 1 - neglects or extinguishes to double simultaneous stimulation in any modality 1 Initial NIHSS Score: 20 (03/08/20 2200 : Caro Wen (Pa)) 20 STROKE CARE AND PREVENTION CHECKLIST Is the patient on VTE prophylaxis: Mechanical prophylaxis;Pharmacological prophylaxis Pharmacological intervention type: Heparin SQ Mechanical intervention type: Intermittent compression stocking(s) GLYCEMIC Control Medications: BG needs further management Stroke BP Goals: Permissive HTN (treat if >220/120) Stroke BP Control: BP needs further management Stroke IVF/Nutrition: IVF TEMPERATURE Control: Normothermic Does the patient need THERAPY: Yes Therapy involvement: PT;OT;ST;PMANDR DATA: Diagnostic tests reviewed for today's visit: Most recent labs and imaging results. personally reviewed Lines, Drains, and Airways None PERSONAL INVOLVEMENT IN CARE: Reviewing initiation, responses and adjustments to therapies, coordination of care, and updating family with Staff Physician, Dr. Schwab. Assessment AND Plan Active Hospital Problems as of 03/09/2020 Noted - Resolved Hospital Acute on chronic renal insufficiency 03/09/2020 - Present Current Assessment AND Plan Assessment: Mild JIHAN in setting of rhabdo/mild dehydration, DKA PLAN: - IVF resuscitation - Monitor daily labs Acute right MCA stroke (HCC) 03/08/2020 - Present Current Assessment AND Plan Assessment: Acute R MCA stroke Evolving R caudate, insular, and frontal infarcts on presenting non contrast CTH CTAs nondiagnostic 2/2 contrast extravasation 2/2 loss of access/blown IV >24-48 hours from LKW, therefore not candidate for tPA and not candidate for intervention given already evident stroke on CT PLAN: - Neuro checks q1h - Antiplatelet - DVT chemoppx - Patient with reported ?intolerance to statin in past. Would consider trial of alternative statin. - Permissive HTN for now. Gradual reduction to normotensive goal in AM as >24 hours out - Monitor tele - Daily labs , including HbA1c and Lipid panel - Echocardiogram - MRI vs Repeat CTH tomorrow - IVF - NPO - PT/OT/ST - Stroke neuro c/s Chronic kidney disease, stage 3, mod decreased GFR 08/03/2018 - Present Current Assessment AND Plan Assessment: Baseline Cr. >1.2 PLAN: - Monitor daily labs - Avoid nephrotoxic agents Closed left ankle fracture 03/09/2020 - Present Current Assessment AND Plan Assessment: bilateral malleolar fracture PLAN: - C/s to ortho. Recs appreciated - s/p reduction and casting Diabetic ketoacidosis without coma associated with type 2 diabetes mellitus (HCC) 03/09/2020 - Present Current Assessment AND Plan Assessment: Glucose >500, ketones >2.00, Anion gap of 21 PLAN: - Insulin gtt at 0.1U/kg/hr - 1/2NS @100cc/hr until glucose <250, then and D5 to 1/2NS - glucose checks q1h for now - Transition to SQ insulin once anion gap closed and normalization of bicarb - Endo c/s in AM Dysphagia 11/05/2016 - Present Current Assessment AND Plan Assessment: Initially passed bedside swallow eval but then pocketed PO meds. PLAN: - Keep NPO for now - ST eval in AM for diet recs before placing Corpak Elevated troponin 03/09/2020 - Present Current Assessment AND Plan Assessment: 41-->39-->58. Suspect type II, demand ischemia PLAN: - Trend to ensure coming down Essential hypertension 06/04/2016 - Present Current Assessment AND Plan Assessment: Hypertensive w/ SBP >200s at OSH. PLAN: Allow for permissive HTN for now. Although likely already out of stroke onset >48hrs. - Gradual reduction to normotensive goal in AM. - holding home meds for now - PRN antihypertensives Fall 03/09/2020 - Present Current Assessment AND Plan Assessment: Unwitnessed fall at home in setting of stroke and L sided weakness Fever 03/09/2020 - Present Current Assessment AND Plan Assessment: ?infectous, although possible just inflammatory - dehydration/pain 2/2 ankle fx, metabolic comorbidities PLAN: - PRN tylenol - IVF - Infectious lawson as noted above. Leukocytosis 03/09/2020 - Present Current Assessment AND Plan Assessment: 14,000. Febrile. Elevated procal. ? Developing aspiration PNA PLAN: - UA appears negative for infection - Check blood cx, sputum cx, - CXR - lactic acid WNL - Will start empiric abx- Vanc/Zosyn for now - Fu daily cbc Rhabdomyolysis 03/09/2020 - Present Current Assessment AND Plan Assessment: S/p fall at home w/ prolonged downtime. CK 1,111 at OSH, Troponin elevation PLAN: - IVF resuscitation - Monitor renal function - Fu trop and CK to ensure trending down Sinus tachycardia 03/09/2020 - Present Current Assessment AND Plan Assessment: 2/2 acute co morbidities - rhabdo, JIHAN, dehydration, DKA PLAN: - IVF resuscitation - Check EKG Type 2 diabetes mellitus with diabetic neuropathy, without long-term current use of insulin ([facility]) 06/04/2016 - Present Current Assessment AND Plan Assessment: most recent HbA1c of 12%. Currently in DKA PLAN: - Holding home PO meds - Insulin gtt with transition to SQ insulin regimen when better control of glucose ( see below) - Check HbA1c Medication and Non-Pharmacologic VTE Prophylaxis/Anticoagulants Anticoagulant AND Antiplatelet Medications (From admission, onward) Start Dose Route Frequency Ordered Stop 03/08/20 2230 heparin 5,000 Units injection (Medical Risk Categories) 5,000 Units SUBCUTANEOUS EVERY 8 HOURS 03/08/20 2220 -- 03/09/20 0600 activity - mobilize patient ([place], [place]) 03/08/20 2215 pneumatic compression stockings ([place]) VTE Prophylaxis: VTE prophylaxis appropriate Critical Care Time Spent: 50 minutes SIGNATURE: Caro eWn PA-C PATIENT NAME: Lisa Shirley DATE: March 09, 2020 TIME: 3:54 AM PAGER/CONTACT #: Attending Note I have personally performed a face to face assessment of the patient and have reviewed the PA/MATTRESS PACKER note. Signature: Akin Schwab DO Normal [facility] LIPID PANEL BASICon 03-09-20 20 Cholesterol [Mass/Vol] 229 mg/dL High <200 [facility] Comment on above: Order Comment: Speci men Type: BLOOD SPECIMEN Result Comment: <200 mg/dL, Desirable 200-239 mg/dL, Borderline high >239 mg/dL, High Performed By: #### C ONABO #### [facility] CLIA [id number] Cholesterol in HDL [Mass/Vol] 59 mg/dL Normal >39 [facility] Comment on above: Order Comment: Speci men Type: BLOOD SPECIMEN Result Comment: 40-5 9 mg/dL, Acceptable >59 mg/dL, High: Negative risk factor for coronary heart disease <40 mg/dL, Low: Positive risk factor for coronary heart disease Performed By: #### C ONABO #### [facility] CLIA [id number] Cholesterol in LDL [Mass/Vol] 142 mg/dL High <100 [facility] Comment on above: Order Comment: Speci men Type: BLOOD SPECIMEN Result Comment: <100 mg/dL, Optimal 100-129 mg/dL, Near optimal/above optimal 130-159 mg/dL, Borderline high 160-189 mg/dL, High >189 mg/dL, Very high Secondary prevention optimal LDL Cholesterol levels are recommended to be < 70 mg/dL Performed By: #### C ONABO #### [facility] CLIA [id number] Cholesterol in LDL/Cholesterol in HDL [Mass ratio] 2.41 Normal <2.54 [facility] Comment on above: Order Comment: Speci men Type: BLOOD SPECIMEN Result Comment: Refe eliana: 1. National Cholesterol Education Program ATP III Guideline At-A-Glance Quick Desk Reference: National Heart, Lung, and Blood [place]. National Institutes of Health. 2001: NIH Publication No. 01-3305. 2. An International Atherosclerosis Society position paper: global recommendations for the management of dyslipidemia: executive summary, Atherosclerosis. 2014: 232(2):410-413. Performed By: #### C ONABO #### [facility] CLIA [id number] Cholesterol in VLDL [Mass/Vol] 28 mg/dL Normal <30 [facility] Comment on above: Order Comment: Speci men Type: BLOOD SPECIMEN Performed By: #### C ONABO #### [facility] CLIA [id number] Cholesterol non HDL [Mass/Vol] 170 mg/dL High <130 [facility] Comment on above: Order Comment: Speci men Type: BLOOD SPECIMEN Result Comment: <130 mg/dL, Optimal 130-159 mg/dL, Near optimal/above optimal 160-189 mg/dL, Borderline high 190-219 mg/dL, High >219 mg/dL, Very high Secondary prevention optimal non HDL Cholesterol levels are recommended to be <100 mg/dL Performed By: #### C ONABO #### [facility] CLIA [id number] Cholesterol.total/Cho lesterol in HDL [Mass ratio] 3.88 {ratio} Normal <5.10 [facility] Comment on above: Order Comment: Speci men Type: BLOOD SPECIMEN Performed By: #### C ONABO #### [facility] CLIA [id number] FASTING TIME 12 hrs Normal [facility] Comment on above: Order Comment: Speci men Type: BLOOD SPECIMEN Performed By: #### C ONABO #### [facility] CLIA [id number] Triglyceride [Mass/Vol] 139 mg/dL Normal <150 [facility] Comment on above: Order Comment: Speci men Type: BLOOD SPECIMEN Result Comment: <150 mg/dL, Normal 150-199 mg/dL, Borderline high 200-499 mg/dL, High >499 mg/dL, Very high Performed By: #### C ONABO #### [facility] CLIA [id number] Lactate Bld-sCncon 0 Lactate [Moles/Vol] 1.8 mmol/L Normal 0.5-2.2 [facility] Comment on above: Order Comment: Speci men Type: BLOOD SPECIMEN Performed By: #### 5 8410-2 #### [facility] CLIA [id number] [address] [place] [address] Lactate [Moles/Vol] 2.0 mmol/L Normal 0.5-2.2 [facility] Comment on above: Order Comment: Speci men Type: BLOOD SPECIMEN Performed By: #### 3 2693-4 ####[facility] [id number] [place] [address] MEDICAL EMERon 03-09-2020 MEDICAL JOSEF HNO ID: [id number] Author: Danuta Pulido (Pa) Service: Neurology ICU Author Type: Physician [employer] Machine Setter Type: Chg in Clinical Condition Filed: 03/09/2020 6:51 PM Note Text: Asked to evaluate pt by RNsarita. Concern for pupil changes and left side becoming weaker. upon exam pt denies fever but she feels cold and nauseous. Pupillometer checked with pupils BL 4 mm. Able to hold LUE against gravity. She is not wanting to move LE BL No CT at this time. Cont exam and no have pupilometer if needed. Treated with zofran x 1 No further orders at this time. DANUTA PULIDO PA-C March 09, 2020 6:51 PM 1763 Normal [facility] MRI BRAIN WO IVCONon 11-13-2 020 MRI BRAIN WO IVCON Final Report DATE OF EXAM: Mar 09 2020 9:04PM [facility] 0294 - MRI BRAIN WO IVCON / PROCEDURE REASON: Stroke, follow up Physician Interpretation EXAMINATION: MRI BRAIN WITHOUT IV CONTRAST CLINICAL HISTORY: Stroke, follow up. TECHNIQUE: Routine noncontrast MRI protocol including diffusion images. MQ: [id number] COMPARISON: MRI brain 09/07/2017. CT brain 03/08/2020. RESULT: Acute Change: There is diffusion restriction restriction involving portions of the lateral right frontal lobe cortex including the operculum and insular cortex consistent with acute ischemic infarct. Vague area of mild increased signal on diffusion-weighted images also noted in the anterior right basal ganglia suspicious for subacute or acute ischemic infarct. Hemorrhage: Probable hemosiderin deposition noted along the margins of the right anterior basal ganglia infarct. Mass Lesion/ Mass Effect: Slight effacement of sulci involved with infarct. No other mass effect. No midline shift. Chronic Change: Scattered patchy areas of increased T2 and FLAIR signal are present in the supratentorial white matter which is a nonspecific finding but likely represents mild chronic microvascular ischemia. A remote lacunar infarct again noted in the anterior left destiny. Parenchyma: No significant volume loss for age. The brain parenchyma is otherwise within normal limits of signal intensity and morphology. Ventricles: Normal caliber and morphology. Skull Base: Hypothalamic and pituitary region are grossly normal. Craniocervical junction is normal. There is no Chiari I malformation. No significant marrow replacement process. Vasculature: Major intracranial arterial structures, and dural venous sinuses show typical flow void, suggesting patency by spin echo criteria. Other: The visualized paranasal sinuses and mastoid air cells are clear. The orbits and extracranial soft tissues are unremarkable. IMPRESSION: 1. Areas of acute ischemic infarct involving left insular cortex and left frontal lobe cortex, left middle cerebral artery territory. Slight effacement of sulci. 2. Subacute versus acute anterior right basal ganglia ischemic infarct with evidence of petechial hemorrhagic transformation. 3. Mild chronic small vessel ischemic changes of the supratentorial white matter. Remote lacunar infarct in the anterior left destiny. Smalltalk Developer: TENISHA Transcribe Date/Time: Mar 10 2020 1:43P Dictated by : GEO CONTEH MD This examination was interpreted and the report reviewed and electronically signed by: GEO CONTEH MD on Mar 10 2020 2:05PM EST Normal [facility] Magnesium SerPl-mCncon 03-09 Magnesium [Mass/Vol] 1.9 mg/dL Normal 1.7-2.3 [facility] Comment on above: Order Comment: Speci men Type: BLOOD SPECIMEN Performed By: #### C ONABO #### [facility] CLIA [id number] Magnesium [Mass/Vol] 2.0 mg/dL Normal 1.7-2.3 [facility] Comment on above: Order Comment: Speci men Type: BLOOD SPECIMEN Performed By: #### 5 7021-8 #### [facility] CLIA [id number] [address] [place] [address] NURSING PROGon 03-09-2020 NURSING PROG HNO ID: [id number] Author: Bobbi (Rn) JONNY Landeros Service: Nursing Author Type: Registered Nurse Type: Nursing Progress Note Filed: 03/09/2020 8:02 PM Note Text: Nursing Progress: Topic: RESTRAINT NON-VIOLENT PATIENT NAME: Lisa Shirley PATIENT LOCATION: [place] [address]/[place] [address]* The patient demonstrates Attempting to Remove Medical Devices Vital to Medical Stability, Confusion, Lack of Understanding/Ability to Comply with Safety Directions as evidenced by the following behaviors OOB, pull corpak, cortes which pose an imminent danger to self or others. The following interventions were attempted but were not effective in protecting the patient's safety: Alarms, Bed in Low/Locked Position, Call Light Within Reach, Medications Reviewed, Modify Environment, Modify Equipment Next, a comprehensive assessment was performed and warranted placing the patient in Soft Bilateral Wrists, the least restrictive restraint needed to protect the patient's safety. Ongoing safety assessments and evaluation for earliest removal of restraints will be performed. DATE: March 09, 2020 TIME: 8:02 PM Bobbi Landeros RN [facility] NURSING PROG O ID: [id number] Author: Sarita Escobedo RN Service: ? Author Type: Registered Nurse Type: Nursing Progress Note Filed: 03/09/2020 9:10 AM Note Text: Nursing Progress: Topic: RESTRAINT NON-VIOLENT PATIENT NAME: Lisa Shirley PATIENT LOCATION: [id number]/[place] [address]* The patient demonstrates Confusion, Attempting to Remove Medical Devices Vital to Medical Stability, Lack of Understanding/Ability to Comply with Safety Directions as evidenced by the following behaviors pt confused, pulling at central line, neuro deficit in which she does not retain safety information which pose an imminent danger to self or others. The following interventions were attempted but were not effective in protecting the patient's safety: Modify Environment, Modify Equipment, Frequent Observation Next, a comprehensive assessment was performed and warranted placing the patient in Soft Bilateral Wrists, the least restrictive restraint needed to protect the patient's safety. Ongoing safety assessments and evaluation for earliest removal of restraints will be performed. DATE: March 09, 2020 TIME: 9:10 AM Sarita Escobedo RN [facility] [id number] Author: Perla Jean-BaptisteRnCesario Davis RN Service: Nursing Author Type: Registered Nurse Type: Nursing Progress Note Filed: 03/09/2020 1:00 AM Note Text: Nursing Progress: Topic: RESTRAINT NON-VIOLENT PATIENT NAME: Lisa Shirley PATIENT LOCATION: [id number]/[place] [address]* The patient demonstrates Confusion, Attempting to Remove Medical Devices Vital to Medical Stability, Lack of Understanding/Ability to Comply with Safety Directions as evidenced by the following behaviors pt attempting to remove medical equipment which pose an imminent danger to self or others. The following interventions were attempted but were not effective in protecting the patient's safety: Modify Environment, Modify Equipment, Frequent Observation Next, a comprehensive assessment was performed and warranted placing the patient in Soft Bilateral Wrists, the least restrictive restraint needed to protect the patient's safety. Ongoing safety assessments and evaluation for earliest removal of restraints will be performed. DATE: March 09, 2020 TIME: 12:59 AM Perla Davis RN [facility] NUTRITIONon 03-09-2020 NUTRITION HNO ID: [id number] Author: Ann Freind RD Service: Nutrition Therapy Author Type: Registered Dietitian Type: Nutrition Filed: 03/09/2020 11:39 AM Note Text: NUTRITION THERAPY INITIAL ASSESSMENT SERVICE DATE: 03/09/2020 SERVICE TIME: 11:31 AM Nutrition Assessment: Recommended Malnutrition Diagnosis: No Malnutrition Identified Nutrition Diagnosis: Problem: Suboptimal oral intake Related to: Acute illness As evidenced by: Medical condition (stroke) Estimated kilocalorie needs: 1480 - 1780 Calorie Calculation Method: 25-30 kcals/kg Estimated protein needs (grams): 71 - 90 Grams protein determined by: 1.2-1.5 g/kg;[place] Body Weight Care Plan: Change diet to Per ST evaluation (pending) If patient is not safe to swallow recommend the following TF: Enteral Nutrition Tube Feeding Formula Type: Isosource 1.5 Goal Rate (mL/hr x hours): 42 X 24 Water Flush Volume (mL x frequency: 30 X 6) Modular: Beneprotein 1 per day added to TF Recommended Enteral Access: Small bore feeding tube TF at goal of 42 ml/hr will provide ~ 1500 kcals, 68 g protein, 770 ml free water. Beneprotein will add 6 g protein per day. Monitor and Evaluation: Meet greater than 75% of estimated needs;Monitor labs, I/Os, vital signs, weight;Monitor tolerance to tube feeding Discharge Recommendations: Diet Diet: TBD HPI: Lisa Shirley was found on the floor at home after a well check by police. She was down for an unknown amount of time. 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 She was in DKA on admit, was tachycardic and febrile. She has a hx of DM2, HLD, HTN, MDD, anxiety, CKD 3 and GERD. Intake History: Current Intake: NPO over: 1 day Current Diet: DIET NPO Anthropometrics: Height: 167.6 cm (5' 6") Weight: 107.7 kg (237 lb 7 oz) Dosing Weight: 59.3 kg (130 lb 11.7 oz) Usual Weight: 96.3 kg (212 lb 4.9 oz) Body mass index is 38.32 kg/m?. Obese Weight change percentage over time: + wt gain Physical Exam: Subcutaneous fat loss: No fat loss Muscle loss: No muscle loss Potential micronutrient deficiency: Nails;Teeth Edema/Ascites: Upper extremities Upper Extermity: Severe 3 - 4 GI Symptoms: Chewing problems;Swallowing problems Functional Status: Not related to malnutrition status Potential Signs of Inflammation: Hyperglycemia;Imaging studies;Microbiologic cultures;Critically ill MNT Billing Type: Initial Assess/15 min 2 units SIGNATURE: Ann Friend RD PATIENT NAME: Lisa Shirley DATE: March 09, 2020 TIME: 11:31 AM PAGER: [phone] [facility] PLAN OF CAREon 03-09-2020 PLAN OF CARE HNO ID: [id number] Author: Quynh Robertson (Pharmacist) Service: Pharmacy Author Type: Pharmacist Type: Plan of Care Filed: 03/09/2020 12:55 PM Note Text: MEDICATION HISTORY AND MEDICATION RECONCILIATION Patient Name:Geoffrey Shirley : 1945 Source of history:Pharmacy records: [facility]; [facility] ([phone]) Medication Nonadherence Identified: No barriers noted The above information represents the best possible medication history: Yes ; unable to verify with patient at this time, no family identified Reconciliation completed? Yes All SR. PAYROLL MANAGER medications addressed by LIP Additional comments: [id number] Medication List Adjustments: Medication Regimen Changes: ? Added SIG to probiotic of once daily ? Added SIG to miralax Medications Added: ? None Medications Removed: ? Duplicate xanax Short-Term Medications: None Further Clarification Required: Unable to verify with patient at this time, per RN no family available at this time Patient is a 30 day readmission: No Patient Interested in Bedside Delivery: No Time Spent Reviewing Patient's Medications: 30 minutes Allergies: ALLERGIES Allergen Reactions - Sofia Inhibitors Contraindication-Medical Surgical Chronic kidney disease - Actos [Pioglitazone] Intolerance - Buspar [Buspirone] Intolerance rem behavior disorder - Crestor [Rosuvastat* Unknown Sensitivity - Glimepiride Intolerance - Glipizide Intolerance - Lexapro [Escitalopr* Mental Status Change - Meloxicam Unknown - Metformin Contraindication-Medical Surgical Chronic kidney disease - Nsaids (Non-Steroid* Contraindication-Medical Surgical Chronic kidney disease - Prednisone Unknown Sensitivity - Seroquel [Quetiapin* Intolerance Preferred Pharmacy: [facility] Current SR. PAYROLL MANAGER Medications: Prior to Admission medications as of 03/09/20 0923 Medication Sig Last Dose Taking zolpidem (AMBIEN) 5 mg tablet Take 1 tablet by mouth at bedtime as needed for up to 90 days. Yes oxyCODONE-acetaminophen (PERCOCET) 5-325 mg tablet Take 1 tablet by mouth every 8 hours as needed for Pain for up to 30 days. Yes diltiazem CD (CARDIZEM CD, CARTIA XT) 240 mg 24 hr capsule TAKE 1 CAPSULE BY MOUTH EVERY DAY Yes ALPRAZolam (XANAX) 0.5 mg tablet Take 1 tablet by mouth three times daily as needed for up to 90 days. Yes glipiZIDE (GLUCOTROL) 5 mg tablet Take 1 tablet by mouth twice daily before meals. Yes sitaGLIPtin (JANUVIA) 100 mg tablet Take 1 tablet by mouth once daily. Yes polyethylene glycol 3350 (MIRALAX ORAL) Take 1 Packet by mouth once daily. Yes nitroglycerin sublingual (NITROQUICK) 0.4 mg SL tablet Dissolve 1 tablet under the tongue every 5 minutes as needed. Yes calcium carbonate (CALCIUM 600) 600 mg calcium (1,500 mg) tab Take 600 mg by mouth three times daily. Yes BIFIDOBACTERIUM INFANTIS (ALIGN ORAL) Take 1 tablet by mouth once daily. Yes Quynh Robertson, Pharmacist March 09, 2020 12:50 PM [facility] PLAN OF CARE O ID: [id number] Author: Quynh Robertson (Pharmacist) Service: Pharmacy Author Type: Pharmacist Type: Plan of Care Filed: 03/09/2020 10:28 AM Note Text: PHARMACY VANCOMYCIN DOSING NOTE Patient Name: Lisa Shirley Admission Date: 03/08/2020 Date of Consult: 03/09/2020 Time of Consult: 10:28 AM Indication: Pneumonia Goal Range: 10-20 mcg/mL RECOMMENDATIONS/PLAN: Pharmacy consulted for vancomycin dosing for Lisa Shirley, a 74 year old, female who is being treated with vancomycin for pneumonia 1. The primary service has discontinued vancomycin therapy. Pharmacy vancomycin dosing service will sign off. Thank you for allowing us to participate in this patient's care. Please contact pharmacy if questions. Quynh Robertson, Pharmacist Normal [facility] PROCALCITONIN (LAB)on 2019 Procalcitonin [Mass/Vol] 0.24 ng/mL High <0.09 [facility] Comment on above: Order Comment: Speci men Type: BLOOD SPECIMEN Result Comment: For a guided interpretation of test results, please visit the Change in Procalcitonin Calculator, [email or web address]. Performed By: #### P ROCAL ####[facility] LABORATORYCLIA [id number] [place] [address] PROGRESSon 03-09-2020 PROGRESS HNO ID: [id number] Author: Shalom (Brea) DO Soraya Service: Neurology ICU Author Type: Resident Type: Progress Notes Filed: 03/09/2020 2:59 PM Note Text: SERVICE DATE: 03/09/2020 SERVICE TIME: 2:59 PM NEURO ICU PROGRESS NOTE DATE OF ADMISSION: 03/08/2020 Subjective Hospital Course: 03/09: Presented from OSH with concern for acute R MCA stroke. Found down at home, elevated CK, patient was in DKA, No LVO, patient admitted to [facility] NICU. Patient also had left trimal fracture, was reduced by ortho team, splinted. Today, patient had speech consult, required corpak placement, transitioned to subcutaneous insulin from insulin drop, DC vanc and zosyn Events Since Last Note: Transitioned to subcutaneous insulin, corpak placed, tube feeds started Objective BP 169/85 Pulse 95 Temp 37.3 ?C (99.1 ?F) Resp 19 Ht 167.6 cm (5' 6") Wt 107.7 kg (237 lb 7 oz) SpO2 97% BMI 38.32 kg/m? Weight change: GCS: Eyes: 4. Spontaneous Verbal: 3: Inappropriate words Motor: 6: Obeys Motor commands Total: 13 CV: Sinus tachycardia Pulm: CTA bilaterally, even and unlabored on RA. GI/: Abdomen soft, non tender, non distended Skin/Extremities: Edema- No Peripheral pulses- Present all extremities Wounds/Drsgs- Yes Left ankle wrapped/dressed (fx) ? NEUROLOGICAL: MOTOR STRENGTH: Minimal movement 1/5 to LUE/LLE, 4/5 RUE, 3/5 RLE SENSATION: Diminished light touch on the L Diagnostic tests reviewed for today's visit: Most recent labs and imaging results. Results for LISA SHIRLEY ( ) as of 03/09/2020 14:51 Ref. Range 03/09/2020 10:05 Sodium Latest Ref Range: 136 - 144 mmol/L 138 Potassium Latest Ref Range: 3.7 - 5.1 mmol/L 3.6 (L) Chloride Latest Ref Range: 97 - 105 mmol/L 104 CO2 Latest Ref Range: 22 - 30 mmol/L 23 BUN Latest Ref Range: 7 - 21 mg/dL 24 (H) Creatinine Latest Ref Range: 0.58 - 0.96 mg/dL 1.10 (H) Glucose Latest Ref Range: 74 - 99 mg/dL 175 (H) Calcium Latest Ref Range: 8.5 - 10.2 mg/dL 8.9 Anion Gap Latest Ref Range: 9 - 18 mmol/L 11 CK Latest Ref Range: 42 - 196 U/L 1,157 (H) eGFR- Unknown 59 eGFR-All Other Races Unknown 49 Results for LISA SHIRLEY ( ) as of 03/09/2020 14:51 Ref. Range 03/09/2020 10:23 LV Ejection Fraction Latest Units: % 55 Lines, Drains, and Airways Line Central Line Triple Lumen 03/08/20 2200 Right Neck less than 1 day Peripheral 03/09/20 1152 Short Left Forearm 22 Gauge less than 1 day Drain GI Feed 03/09/20 1408 Gastric Right Naris 12 Fr less than 1 day Indwelling Urinary Catheter 03/09/20 0045 Admission to Hospital [place] less than 1 day ICU Checklist Last Documented/Reviewed time: 03/09/2020 8:04 AM ICU Delirium Status: CAM Negative - no action required Restraint Status: Present, will maintain Restraint Maintain Reason: Maintain safety of patient ICU Mobility-Pt Has Been Out of Bed: No - Specify, PT Consult - Specify Line Status: Central multi-lumen catheter Central Line Status: Reason to maintain Central Line Reason to Maintain: Poor access Ventilator: None Cortes Status: Present, will maintain Cortes Status Details: Accurate measurement of urine output GI/Stress Ulcer Prophylaxis: H2 blockers Nutrition is at Goal: NPO VTE Prophylaxis: Chemoprophylaxis: Heparin SQ Pressure Injury Status: None ICU plan of care visit at bedside in last 24 hours: Yes, ICU Team only ICU Disposition- Is Patient Clinically Ready to Transfer to [facility] or SDU?: No Discharge Planning: To be determined PERSONAL INVOLVEMENT IN CARE: Reviewing initiation, responses and adjustments to therapies, coordination of care, and updating family with Staff Physician, Dr. Schwab. Assessment AND Plan Active Hospital Problems as of 03/09/2020 Noted - Resolved Hospital Acute on chronic renal insufficiency 03/09/2020 - Present Current Assessment AND Plan Assessment: Mild JIHAN in setting of rhabdo/mild dehydration, DKA PLAN: - IVF resuscitation - Monitor daily labs Acute right MCA stroke (HCC) 03/08/2020 - Present Current Assessment AND Plan Assessment: Acute R MCA stroke Evolving R caudate, insular, and frontal infarcts on presenting non contrast CTH CTAs nondiagnostic 2/2 contrast extravasation 2/2 loss of access/blown IV >24-48 hours from LKW, therefore not candidate for tPA and not candidate for intervention given already evident stroke on CT PLAN: - Neuro checks - Antiplatelet -Statin 80 mg - DVT chemoppx - Permissive HTN for now. - Monitor tele - Daily labs - Echocardiogram - MRI vs Repeat CTH tomorrow - PT/OT/ST - Stroke neuro c/s Chronic kidney disease, stage 3, mod decreased GFR 08/03/2018 - Present Current Assessment AND Plan Assessment: Baseline Cr. >1.2 PLAN: - Monitor daily labs - Avoid nephrotoxic agents Closed left ankle fracture 03/09/2020 - Present Current Assessment AND Plan Assessment: bilateral malleolar fracture PLAN: - s/p reduction and casting -Ortho following Diabetic ketoacidosis without coma associated with type 2 diabetes mellitus (HCC) 03/09/2020 - Present Current Assessment AND Plan Assessment: Glucose >500, ketones >2.00, Anion gap of 21 PLAN: - Insulin gtt transitioned to subcutaneous -Corpak placed on tube feeds - Endo c/s in AM Dysphagia 11/05/2016 - Present Current Assessment AND Plan Assessment: Initially passed bedside swallow eval but then pocketed PO meds. PLAN: - Speech eval -Corpak placed -Tube feeds Elevated troponin 03/09/2020 - Present Current Assessment AND Plan Assessment: 41-->39-->58. Suspect type II, demand ischemia PLAN: - Trend to ensure coming down Essential hypertension 06/04/2016 - Present Current Assessment AND Plan Assessment: Hypertensive w/ SBP >200s at OSH. PLAN: Allow for permissive HTN for now. Although likely already out of stroke onset >48hrs. - Gradual reduction to normotensive goal - holding home meds for now - PRN antihypertensives Fall 03/09/2020 - Present Current Assessment AND Plan Assessment: Unwitnessed fall at home in setting of stroke and L sided weakness Fever 03/09/2020 - Present Current Assessment AND Plan Assessment: ?infectous, although possible just inflammatory - dehydration/pain 2/2 ankle fx, metabolic comorbidities PLAN: - PRN tylenol - IVF - Infectious lawson as noted above. Leukocytosis 03/09/2020 - Present Current Assessment AND Plan Assessment: 14,000. Febrile. Elevated procal. ? Developing aspiration PNA PLAN: - UA appears negative for infection - Check blood cx, sputum cx, - CXR - lactic acid WNL - Will start empiric abx- Vanc/Zosyn for now - Fu daily cbc Rhabdomyolysis 03/09/2020 - Present Current Assessment AND Plan Assessment: S/p fall at home w/ prolonged downtime. CK 1,111 at OSH, Troponin elevation PLAN: - IVF resuscitation - Monitor renal function - Fu trop and CK to ensure trending down Sinus tachycardia 03/09/2020 - Present Current Assessment AND Plan Assessment: 2/2 acute co morbidities - rhabdo, JIHAN, dehydration, DKA PLAN: - IVF resuscitation - Check EKG Type 2 diabetes mellitus with diabetic neuropathy, without long-term current use of insulin (HCC) 06/04/2016 - Present Current Assessment AND Plan Assessment: most recent HbA1c of 12%. Currently in DKA PLAN: - Holding home PO meds - Insulin gtt with transitioned to SQ insulin regimen when better control of glucose - Check HbA1c Medication and Non-Pharmacologic VTE Prophylaxis/Anticoagulants Anticoagulant AND Antiplatelet Medications (From admission, onward) Start Dose Route Frequency Ordered Stop 03/09/20 1500 aspirin 81 mg chewable tab(s) 81 mg PO/FT DAILY 03/09/20 1436 -- 03/08/20 2230 heparin 5,000 Units injection (Medical Risk Categories) 5,000 Units SUBCUTANEOUS EVERY 8 HOURS 03/08/20 2220 -- 03/09/20 0600 activity - mobilize patient ([place]) 03/08/20 2215 pneumatic compression stockings ([place]) VTE Prophylaxis: VTE prophylaxis appropriate Plan of care discussed with: Provider, RN, Patient SIGNATURE: Shalom Lira DO PATIENT NAME: Lisa Shirley DATE: March 09, 2020 TIME: 2:59 PM Normal [facility] PT Pnl PPPon 03-09-2020 INR Coag (PPP) [Relative time] 1.1 {INR} Normal 0.9-1.3 [facility] Comment on above: Order Comment: Speci men Type: BLOOD SPECIMEN Result Comment: Francia min K Antagonist (VKA) Therapeutic Range: INR 2 to 3 (Target INR of 2.5) Note: For patients treated with VKA drugs, such as warfarin, the [place] [employer] 2012 Guideline recommends a therapeutic INR range of 2 to 3 (target INR of 2.5). This recommendation includes high-risk patients with antiphospholipid syndrome with previous arterial or venous thromboembolism, current-generation mechanical or bioprosthetic aortic heart valve replacement. Note: Patients with mechanical aortic valve replacement and additional risk factors for thromboembolic events (atrial fibrillation, previous thromboembolism, LV dysfunction, hypercoagulable conditions) or an older generation mechanical AVR (i.e., ball in-Cage) or any mechanical MVR should have a INR therapeutic range of 2.5 to 3.5 (target INR of 3). Mellisa GH, et al. Chest 2012, 141:7S-47S Caro RA, et al. JAC 2017, 70: 252-289 Performed By: #### 3 4528-0, 44562-1 ####[facility] LABORATORYCLIA [id number] [place] [address] PT Coag (PPP) [Time] 10.9 s Normal 9.7-13.0 [facility] Comment on above: Order Comment: Speci men Type: BLOOD SPECIMEN Performed By: #### 3 4528-0, 15186-3 ####[facility] LABORATORYCLIA [id number] [place] [address] Phosphate SerPl-mCncon 03-09 Phosphate [Mass/Vol] 2.7 mg/dL Normal 2.7-4.8 [facility] Comment on above: Order Comment: Speci men Type: BLOOD SPECIMEN Performed By: #### 5 8410-2 #### [facility] CLIA [id number] [address] [place] [address] Phosphate [Mass/Vol] 3.5 mg/dL Normal 2.7-4.8 [facility] Comment on above: Order Comment: Speci men Type: BLOOD SPECIMEN Performed By: #### 5 7021-8 #### [facility] CLIA [id number] [address] [place] [address] STAPH AUREUS PCRon 0 Staphylococcus aureus and Methicillin-resistant Staphylococcus aureus panel - Nose by SHLOMO with probe detection Normal Negative [facility] Comment on above: Order Comment: Speci men Type: SWAB OF INTERNAL NOSE Result Comment: Nega tive for Staphylococcus aureus by PCR. Negative for MRSA by PCR Performed By: #### S APCR #### [facility] CLIA [id number] [address] [place] [address] THERAPY NTon 03-09-2020 THERAPY NT HNO ID: [id number] Author: Osmar (Ccc-Traffic Reporter) Elli CCC/FLOW MANAGER Service: Speech/Swallow Author Type: Speech Language Pathologist Type: Therapy (PT/OT/Speech/Resp) Filed: 03/09/2020 2:05 PM Note Text: Speech Therapy Speech Evaluation Clinical Swallow Evaluation SERVICE DATE: 03/09/2020 SERVICE TIME: 1315 to 1345 ROOM: [id number] IMPRESSION: Patient demonstrates oropharyngeal dysphagia which is negatively impacting his/her ability to effectively maintain adequate nutrition and hydration and/or airway safety. Patient demonstrates dysarthria and left neglect which is negatively impacting the patient's ability to effectively communicate basic ADL medical and social wants/needs with familiar and unfamiliar communication partners. Diet Recommendations: NPO with alternative means of nutrition/hydration/medicat ion Consider corpack (small bore feeding tube) Swallowing Precautions Recommendations: Rigid Oral Hygiene Nursing Recommendations: See swallow guide posted in patients room;Reinforce use of swallowing strategies;Reinforce use of communication strategies: Encourage left sided awareness Recommended Discharge Disposition: Acute Rehab Justification for Recommended Discharge Disposition: Patient can tolerate 3 hours of therapy per day;Willing to participate;Medically complex;Good sitting tolerance;Motivated Reason for Hospital Admission: Stroke Rehabilitation Precautions: Cognitive Linguistics Deficits;Aspiration Precautions;Dysphagia;Commu nication Deficits;NPO;Diabetic;Visua l Deficits NPO Precautions: (Asked for corpack) Reason for Speech Therapy Consult: Stroke: assess swallowing and speech/cognition Relevant Past Medical History: Anxiety, Depression, DM, Fatigue, HTN, Morbid obesity, Panic state as acute reaction to stress, sleep disorder, Stroke, DM Continue skilled FLOW MANAGER services due to : Dysphagia, Communication difficulties, Safety concerns, Education / training needs Speech Therapy Problem List: Dysphagia;Cognitive-Linguis tic Impairment;Dysarthria Patient Report: I've been better. Current Status Oral Hygiene: Clear, dry oral cavity Dentition: Retains Natural Dentition Current Feeding Method: IV Current Diet Textures: NPO Current Level Of Communication: Verbal(Dysarthric) Current Management Of Secretions: Requires Cueing To Manage Oral Motor Exam: Within Functional Limits Except Facial Symmetry Impaired: Right Labial ROM Impaired: Right Labial Strength Impaired: Right Lingual ROM Impaired: Bilateral Lingual Strength Impaired: Bilateral Speech/Voice/Language Speech Production: Within Functional Limits Except Dysarthria: Blended Word Boundaries, Imprecise Articulation, Decreased Rate Of Speech, Decreased Intelligibility Voice Assessment: No Expressive and Receptive Language: Within Functional Limits Fluency: No - Patient in bed upon arrival, alert and able to participate in therapy - Assessed speech, language, and cognitive skills: - Cognition: Severe left neglect - Reading/writing: TBA - Insight: Fair - Pragmatics: WFL - Patient presents with deficits in the following areas: speech and cognition - ST to follow to improve dysarthria and left neglect Swallow Assessment Position Of Patient During Assessment: Upright In Bed Consistencies Tested: Thin Liquids IDDSI Level 0, Mildly Thick Liquids IDDSI Level 2 (Cross Anchor Thick), Puree Compensatory Strategies Utilized During Assessment: 1:1 Supervision, Alert (patient should be fully alert for P.O. intake), Feed / Eat at a slow rate, Sit upright 90 degrees for all PO, Small Bite/Sip Clinical Swallow Assessment Oral Pharyngeal Swallow Assessment: Within Functional Limits Except Preparatory / Oral Phase: Within Functional Limits Except Oral Containment: Moderately Impaired Bolus Manipulation: Moderately Impaired A-P Transit: Moderately Impaired Pharyngeal Phase: Within Functional Limits Except Timing of Response: Moderately Impaired Range of Hyoid/Laryngeal Elevation: Moderately Impaired Reflexive Throat Clear and Cough after Swallowing: Yes, Post-Swallow Multiple Swallows: No Assessed swallowing Mouth is dry but clear Trialed thin via spoon, cup, and straw: +delayed cough (weak, unable to fully cough at times) Trialed mildly thick (nectar thick) liquids via spoon and cup: +delayed cough (weak, unable to fully cough at times) Trialed puree: +significant delay to swallow Weak hyo-laryngeal movement Patient with signs or symptoms of aspiration Recommend NPO status Speech Therapy to follow for dysphagia management Functional Communication Measure (FCM) Current FCM Level: Swallowing Level;Motor Speech;Attention FCM Swallowing Level: 1 FCM Attention Level: 1 FCM Motor Speech Level: 3 Patient /Caregiver Goals: Eat/Drink Without Restrictions;Improve Cognition;Improve Communication Goals for Plan of Care: SWALLOWING: Patient / Caregiver will demonstrate knowledge of taught compensatory strategies and dietary consistency recommendations to optimize functional swallow function without overt clinical signs and symptoms of aspiration or dysphagia Swallowing Goals: Patient will participate in swallow reassessment to determine safety of diet vs instrumentation vs alternate means of hydration/nutrition. Therapeutic Tasks: Lingual/Pharyngeal/Laryngea l strengthening tasks to improve swallowing function COGNITION: Patient will demonstrate knowledge of taught compensatory strategies for functional cognitive-linguistic skills Cognitive Goals: Patient will improve visual left scanning given maximal cues to 25% accuracy so that the patient may demonstrate general awareness of surroundings for personal safety. SPEECH / LANGUAGE: Patient will demonstrate knowledge of taught compensatory strategies for functional communication Speech Goals: Patient will improve speech intelligibility at the word level to 60% intelligibility given maximal cues so that the patient can functionally communicate with caregivers. Patient will demonstrate adequate return of knowledge of all compensatory strategies/instruction to effectively assist the patient in immediate speech production skills. Speech Rehab Potential: Good Patient will be discontinued from speech therapy when no further skilled needs are identified in this setting. PLAN: Treatment Frequency (times per week): 4 Current admission Treatment Interventions: Dysphagia Management;Dysarthria Management;Cognitive-Lingui stic Management Plan for next visit: Swallowing Strategies, Dysphagia Management, Dietary Consistencies, Motor Speech Skills(Improved left sided awareness) Plan of Care Developed with: Patient Results and Recommendations Discussed With: Patient;Nurse TREATMENT INTERVENTIONS: Therapy Diagnosis: Other speech and language deficits following unspecified cerebrovascular disease;Dysarthria following cerebral infarction;Dysphagia following cerebral infarction Interventions Provided: Speech Language Eval (20101);Clinical Swallow Evaluation (75580) $ Speech Language Eval (53199) Billed Units: 1 unit $ Clinical Swallow Evaluation (67774) Billed Units: 1 unit Total Treatment Time (minutes): 30 Home Environment Prior Functional Level: Within Functional Limits Assistance Available: multimedia services coordinator Prior Swallowing Function/Diet Textures: Regular Consistency;Thin Liquids IDDSI Level 0 Please see discipline specific clinical documentation flowsheet for complete details for this therapy evaluation/treatment. SIGNATURE: Osmar Calloway CCC-FLOW MANAGER PATIENT NAME: Lisa Shirley DATE: March 09, 2020 TIME: 2:00 PM Normal [facility] THERAPY NT HNO ID: [id number] Author: Tahmina (Pt) Mary Service: Physical Therapy Author Type: Physical Therapist Type: Therapy (PT/OT/Speech/Resp) Filed: 03/09/2020 9:05 AM Note Text: PHYSICAL THERAPY MISSED VISIT SERVICE DATE: 03/09/2020 SERVICE TIME: 903 to 903 ROOM: [place] [address] Attempted Evaluation. Patient not seen due to Illness. Hold today per JONNY Sandhu. Will continue to follow patient as able. SIGNATURE: Tahmina Hernandez PT PATIENT NAME: Lisa Shirley DATE: March 09, 2020 TIME: 9:04 AM [facility] TYPE AND SCREENon 03-09-2020 ABO AB Normal [facility] Comment on above: Order Comment: Speci men Type: SWAB OF INTERNAL NOSE Performed By: #### S APCR #### [facility] CLIA [id number] [address] [place] [address] HISTORICAL AB SCR STATUS Negative Normal [facility] Comment on above: Order Comment: Speci men Type: SWAB OF INTERNAL NOSE Performed By: #### S APCR #### [facility] CLIA [id number] [address] [place] [address] Rh Nom (Bld) Positive Normal [facility] Comment on above: Order Comment: Speci men Type: SWAB OF INTERNAL NOSE Performed By: #### S APCR #### [facility] CLIA [id number] [address] [place] [address] TYPE AND SCREEN EXPIRATION 03/11/2020 23:59 Normal [facility] Comment on above: Order Comment: Speci men Type: SWAB OF INTERNAL NOSE Performed By: #### S APCR #### [facility] CLIA [id number] [address] [place] [address] UA WITH CULTURE IF INDICATED on 03-09-2020 Bacteria LM.HPF (Urine sed) [#/Area] None Seen Normal None Seen [facility] Comment on above: Order Comment: Speci men Type: URINE SPECIMEN Performed By: #### U ACII ####[facility]ORYCLIA [id number] [place] [address] Bilirubin Ql (U) Negative Normal Negative [facility] Comment on above: Order Comment: Speci men Type: URINE SPECIMEN Performed By: #### U ACII ####[facility]ORYCLIA [id number] [place] [address] Clarity (Unsp spec) Clear Normal Clear [facility] Comment on above: Order Comment: Speci men Type: URINE SPECIMEN Performed By: #### U ACII ####[facility]ORYCLIA [id number] [place] [address] Color (U) Yellow Normal Yellow [facility] Comment on above: Order Comment: Speci men Type: URINE SPECIMEN Performed By: #### U ACII ####[facility]ORYCLIA [id number] [place] [address] Epithelial cells LM.HPF (Urine sed) [#/Area] 1.1 /[HPF] Normal [facility] Comment on above: Order Comment: Speci men Type: URINE SPECIMEN Performed By: #### U ACII ####[facility]ORYCLIA [id number] [place] [address] Glucose Test strip (U) [Mass/Vol] >=1000 mg/dL Abnormal Negative [facility] Comment on above: Order Comment: Speci men Type: URINE SPECIMEN Performed By: #### U ACII ####[facility]ORY[facility]IA [id number] [place] [address] Hemoglobin Ql (U) Large Abnormal Negative [facility] Comment on above: Order Comment: Speci men Type: URINE SPECIMEN Performed By: #### U ACII ####[facility] [id number] [place] [address] Hyaline casts (Urine sed) [#/Area] 4-10 /LPF Abnormal 0 /LPF [facility] Comment on above: Order Comment: Speci men Type: URINE SPECIMEN Performed By: #### U ACII ####[facility] [id number] [place] [address] Ketones Ql (U) 40 mg/dL Abnormal Negative [facility] Comment on above: Order Comment: Speci men Type: URINE SPECIMEN Performed By: #### U ACII ####[facility] [id number] [place] [address] Leukocyte esterase Test strip Ql (U) Negative Normal Negative [facility] Comment on above: Order Comment: Speci men Type: URINE SPECIMEN Performed By: #### U ACII ####[facility] [id number] [place] [address] Nitrite Ql (U) Negative Normal Negative [facility] Comment on above: Order Comment: Speci men Type: URINE SPECIMEN Performed By: #### U ACII ####[facility]ORYCLIA [id number] [place] [address] pH (U) 5.5 [pH] Normal 5.0-8.0 [facility] Comment on above: Order Comment: Speci men Type: URINE SPECIMEN Performed By: #### U ACII ####[facility]IA [id number] [place] [address] Protein (U) [Mass/Vol] 100 mg/dL Abnormal Negative [facility] Comment on above: Order Comment: Speci men Type: URINE SPECIMEN Performed By: #### U ACII ####[facility]ORYCLIA [id number] [place] [address] RBC LM.HPF (Urine sed) [#/Area] 11-25 /HPF Abnormal 0-3 /HPF [facility] Comment on above: Order Comment: Speci men Type: URINE SPECIMEN Performed By: #### U ACII ####[facility]ORYCLIA [id number] [place] [address] Specific gravity (U) [Rel density] 1.045 High 1.005-1.03 0 [facility] Comment on above: Order Comment: Speci men Type: URINE SPECIMEN Performed By: #### U ACII ####[facility]ORYCLIA [id number] [place] [address] Urobilinogen Test strip Ql (U) 0.2 EU/dL Normal 0.2-1.0 EU/dL [facility] Comment on above: Order Comment: Speci men Type: URINE SPECIMEN Performed By: #### U ACII ####[facility]ORYCLIA [id number] [place] [address] WBC LM.HPF (Urine sed) [#/Area] 0-5 /HPF Normal 0-5 /HPF [facility] Comment on above: Order Comment: Speci men Type: URINE SPECIMEN Performed By: #### U ACII ####[facility]ORYCLIA [id number] [place] [address] XR ABDOMEN 1V SUPINEon 03-09 XR ABDOMEN 1V SUPINE Final Report DATE OF EXAM: Mar 09 2020 2:30PM AKX [id number] - XR ABDOMEN 1V SUPINE / PROCEDURE REASON: Evaluate tube, line or lead position Physician Interpretation ABDOMINAL X-RAY HISTORY: Evaluate tube, line or lead position COMPARISON: 03/09/2020 TECHNIQUE: Supine AP view of the abdomen RESULT: A feeding tube is identified with tip seen superimposed over the left paraspinal upper abdomen at the expected location of the body the stomach. A right internal jugular central venous catheter is in place with tip seen superimposed over the expected location of the right atrium similar to previous study. Surgical clips are seen in the right upper quadrant. There is a normal abdominal gas pattern. No evidence of dilated bowel. Visible lung bases appear clear. IMPRESSION: Feeding tube in place with tip seen superimposed over the expected location of the body the stomach. Smalltalk Developer: TENISHA Transcribe Date/Time: Mar 09 2020 2:38P Dictated by : MAITE STRINGER MD This examination was interpreted and the report reviewed and electronically signed by: MAITE STRINGER MD on Mar 09 2020 2:39PM EST Normal [facility] XR ABDOMEN 1V SUPINE Final Report DATE OF EXAM: Mar 09 2020 2:29PM AKX 5289 - XR ABDOMEN 1V SUPINE / PROCEDURE REASON: Evaluate tube, line or lead position Physician Interpretation ABDOMINAL X-RAY HISTORY: Evaluate tube, line or lead position COMPARISON: None available TECHNIQUE: Supine AP view of the abdomen RESULT: Feeding tube in place with tip seen superimposed over the expected location of the distal esophagus. This should be advanced. Right internal jugular central venous catheter in place with tip seen superimposed over the expected location of the right atrium. Surgical clips are seen in the right upper quadrant. There is a normal abdominal gas pattern. No evidence of dilated bowel. Visible lung bases appear clear. IMPRESSION: Feeding tube in place with tip seen superimposed over the expected location of the distal esophagus. This should be advanced. Smalltalk Developer: [facility] Transcribe Date/Time: Mar 09 2020 2:39P Dictated by : MAITE STRINGER MD This examination was interpreted and the report reviewed and electronically signed by: MAITE STRINGER MD on Mar 09 2020 2:41PM EST Normal [facility] XR ANKLE 3V AP/LAT/OBL LTon 03-09-2020 XR ANKLE 3V AP/LAT/OBL LT Final Report DATE OF EXAM: Mar 09 2020 1:05AM AKX 5298 - XR ANKLE 3V AP/LAT/OBL LT / PROCEDURE REASON: Post-operative / post-procedure assessment, asymptomatic Physician Interpretation EXAMINATION: XR ANKLE 3V AP/LAT/OBL LT CLINICAL HISTORY: Post-operative / post-procedure assessment, asymptomatic Technique: XR ANKLE 3V AP/LAT/OBL LT -- LEFT with 3 views on 3 images Comparison: 03/08/2020 RESULT: Overlying cast material obscures fine bony detail. Accounting for this there is improved angulation and displacement of the major fracture fragments and a more anatomic appearance of the tibiotalar joint. IMPRESSION: Closed reduction and cast placement as above Smalltalk Developer: TENISHA Transcribe Date/Time: Mar 09 2020 1:45A Dictated by : MYLES COX MD This examination was interpreted and the report reviewed and electronically signed by: MYLES COX MD on Mar 09 2020 2:19AM EST Normal [facility] XR ANKLE 3V AP/LAT/OBL LT Final Report DATE OF EXAM: Mar 08 2020 11:45PM AKX 5298 - XR ANKLE 3V AP/LAT/OBL LT / PROCEDURE REASON: Post-reduction assessment Physician Interpretation EXAMINATION: XR ANKLE 3V AP/LAT/OBL LT CLINICAL HISTORY: Post-reduction assessment Technique: XR ANKLE 3V AP/LAT/OBL LT -- LEFT with 3 views on 3 images Comparison: 03/08/2020 RESULT: Interval closed reduction for medial malleolus are fracture deformity. There is persistent widening of the anterior tibiotalar joint space. The medial malleolus fracture fragment is unchanged position. IMPRESSION: Status post closed reduction with no significant changes compared the prior study. Smalltalk Developer: [facility] Transcribe Date/Time: Mar 09 2020 12:18A Dictated by : MYLES COX MD This examination was interpreted and the report reviewed and electronically signed by: MYLES COX MD on Mar 09 2020 12:19AM EST Normal [facility] XR ANKLE SPECIFY 1V LTon XR ANKLE SPECIFY 1V LT Final Report DATE OF EXAM: Mar 09 2020 4:37AM AKX 5502 - XR ANKLE SPECIFY 1V LT / PROCEDURE REASON: Post-reduction assessment Physician Interpretation EXAMINATION: XR ANKLE SPECIFY 1V LT CLINICAL HISTORY: Post-reduction assessment Technique: XR ANKLE SPECIFY 1V LT -- NOT APPLICABLE with 1 views on 1 images Comparison: Study dated earlier in the day at 0054 RESULT: A splint overlies the extremity partially obscuring visualization of bony detail. The lateral view of the ankle demonstrates near anatomic alignment of the tibiotalar joint. No new abnormality identified. IMPRESSION: Near anatomic alignment of the tibiotalar joint Smalltalk Developer: [facility] Transcribe Date/Time: Mar 09 2020 4:41A Dictated by : TOSIN CLARK MD This examination was interpreted and the report reviewed and electronically signed by: TOSIN CLARK MD on Mar 09 2020 4:44AM EST Normal [facility] XR CHEST 1V FRONTAL PORTon 1 05-09-2019 XR CHEST 1V FRONTAL PORT Final Report DATE OF EXAM: Mar 08 2020 10:33PM AKX 5376 - XR CHEST 1V FRONTAL PORT / PROCEDURE REASON: Acute respiratory illness Physician Interpretation EXAMINATION: CHEST RADIOGRAPH (PORTABLE SINGLE VIEW AP) Exam Date/Time: 03/08/2020 10:33 PM CLINICAL HISTORY: Acute respiratory illness MQ: XCPR_5 Comparison: 03/08/2020 RESULT: Lines, tubes, and devices: Right-sided central venous catheter projects over the right atrium. Lungs and pleura: No new pulmonary parenchymal or pleural disease. Cardiomediastinal silhouette: Stable cardiomediastinal silhouette. Other: . IMPRESSION: No adverse interval change compared the prior study. Smalltalk Developer: TENISHA Transcribe Date/Time: Mar 08 2020 11:04P Dictated by : MYLES COX MD This examination was interpreted and the report reviewed and electronically signed by: MYLES COX MD on Mar 08 2020 11:04PM EST Normal [facility] aPTT PPPon 03-09-2020 aPTT Coag (PPP) [Time] 23.7 s Normal 23.0-32.4 [facility] Comment on above: Order Comment: Speci men Type: BLOOD SPECIMEN Performed By: #### 3 4528-0, 32648-8 ####[facility]ORYCLIA [id number] [place] [address] 2018 CORONAVIRUSon 0 2019 CORONAVIRUS COVID 19 SOURCE CUSTOMER QUALITY SPECIALIST: UPPER RESPIRATORY TRACT SWAB Called to and read back by: Luis Landeros RN [facility] 03/10/2020 0059 by Ajay Márquez. COVID 19 RESULT CUSTOMER QUALITY SPECIALIST: Positive for COVID19 (SARS CoV2) by PCR.(*) This test was developed and its performance characteristics determined by [facility] [place]. This test has been authorized by FDA under an Emergency Use Authorization (EUA). This test has been validated in accordance with the FDA's Guidance Document "Policy for Diagnostics Testing in Laboratories Certified to Perform High Complexity Testing under CLIA prior to Emergency use Authorization for Coronavirus Disease 2019 during the Public Health Emergency" issued on June 25, 2019. Normal [facility] Comment on above: Performed By: #### 5 8410-2 #### [facility] CLIA [id number] [address] [place] [address] [place] Bas Met[employer] 2000 Pnl SerPlon 1 05-08-2019 Anion gap [Moles/Vol] 21 mmol/L High 9-18 [facility] Comment on above: Order Comment: Speci men Type: BLOOD SPECIMEN Performed By: #### 2 4321-2 #### [facility] CLIA [id number] [address] [place] [address] Calcium [Mass/Vol] 9.8 mg/dL Normal 8.5-10.2 [facility] Comment on above: Order Comment: Speci men Type: BLOOD SPECIMEN Performed By: #### 2 4321-2 #### [facility] CLIA [id number] [address] [place] [address] Chloride [Moles/Vol] 94 mmol/L Low 97-105 [facility] Comment on above: Order Comment: Speci men Type: BLOOD SPECIMEN Performed By: #### 2 4321-2 #### [facility] CLIA [id number] [address] [place] [address] CO2 [Moles/Vol] 19 mmol/L Low 22-30 [facility] Comment on above: Order Comment: Speci men Type: BLOOD SPECIMEN Performed By: #### 2 4321-2 #### [facility] CLIA [id number] [address] [place] [address] Creatinine [Mass/Vol] 1.30 mg/dL High 0.58-0.96 [facility] Comment on above: Order Comment: Speci men Type: BLOOD SPECIMEN Performed By: #### 2 4321-2 #### [facility] CLIA [id number] [address] [place] [address] GFR/1.73 sq M predicted among blacks MDRD (S/P/Bld) [Vol rate/Area] 49 mL/min/{1.73_m2} Normal [facility] Comment on above: Order Comment: Speci men Type: BLOOD SPECIMEN Performed By: #### 2 4321-2 #### [facility] CLIA [id number] [address] [place] [address] GFR/1.73 sq M predicted among non-blacks MDRD (S/P/Bld) [Vol rate/Area] 40 mL/min/{1.73_m2} Normal [facility] Comment on above: Order Comment: Speci men Type: BLOOD SPECIMEN Result Comment: eGFR (Estimated GFR) Units of measure: mL/min/1.73 meters squared eGFR is derived from the reexpressed MDRD Study equation using the following parameters: serum creatinine, age, gender and race. The creatinine assay has been calibrated to be traceable to IDMS. An eGFR <60 mL/min/1.73m2 for >3 months is consistent with chronic kidney disease. Refer to KDOQI guidelines for clinical interpretation. In patients with unstable renal function, e.g. those with acute kidney injury, the eGFR may not accurately reflect actual GFR. Performed By: #### 2 4321-2 #### [facility] CLIA [id number] [address] [place] [address] Glucose [Mass/Vol] 509 mg/dL High 74-99 [facility] Comment on above: Order Comment: Speci men Type: BLOOD SPECIMEN Result Comment: The [place] Diabetes Association (ADA) provides guidance for cutoff values for fasting glucose and random glucose. The ADA defines fasting as no caloric intake for at least 8 hours. Fasting plasma glucose results between 100 to 125 mg/dL indicate increased risk for diabetes (prediabetes). Fasting plasma glucose results greater than or equal to 126 mg/dL meet the criteria for diagnosis of diabetes. In the absence of unequivocal hyperglycemia, results should be confirmed by repeat testing. In a patient with classic symptoms of hyperglycemia or hyperglycemic crisis, random plasma glucose results greater than or equal to 200 mg/dL meet the criteria for diagnosis of diabetes. Reference: Standards of Medical Care in Diabetes 2016, [place] Diabetes Association. Diabetes Care. 2016.39(Suppl 1). Urgent value: Performed By: #### 2 4321-2 #### [facility] CLIA [id number] [address] [place] [address] Potassium [Moles/Vol] 4.5 mmol/L Normal 3.7-5.1 [facility] Comment on above: Order Comment: Speci men Type: BLOOD SPECIMEN Performed By: #### 2 4321-2 #### [facility] CLIA [id number] [address] [place] [address] Sodium [Moles/Vol] 134 mmol/L Low 136-144 [facility] Comment on above: Order Comment: Speci men Type: BLOOD SPECIMEN Performed By: #### 2 4321-2 #### [facility] CLIA [id number] [address] [place] [id number] Urea nitrogen [Mass/Vol] 24 mg/dL High 7-21 [facility] Comment on above: Order Comment: Speci men Type: BLOOD SPECIMEN Performed By: #### 2 4321-2 #### [facility] CLIA [id number] [address] [place] [address] CBC (hemogram) Bld Autoon Erythrocyte distribution width (RBC) [Ratio] 13.0 % Normal 11.5-15.0 [facility] Comment on above: Order Comment: Speci men Type: BLOOD SPECIMEN Performed By: #### 5 8410-2 #### [facility] CLIA [id number] [address] [place] [address] [facility] [place] Hematocrit (Bld) [Volume fraction] 42.5 % Normal 36.0-46.0 [facility] Comment on above: Order Comment: Speci men Type: BLOOD SPECIMEN Performed By: #### 5 8410-2 #### [facility] CLIA [id number] [address] [place] [address] [place] Hemoglobin (Bld) [Mass/Vol] 14.1 g/dL Normal 11.5-15.5 [facility] Comment on above: Order Comment: Speci men Type: BLOOD SPECIMEN Performed By: #### 5 8410-2 #### [facility] CLIA [id number] [address] [facility] [place] [address] [place] MCH (RBC) [Entitic mass] 30.5 pg Normal 26.0-34.0 [facility] Comment on above: Order Comment: Speci men Type: BLOOD SPECIMEN Performed By: #### 5 8410-2 #### [facility] CLIA [id number] [address] [facility] [place] [address] [place] MCHC (RBC) [Mass/Vol] 33.2 g/dL Normal 30.5-36.0 [facility] Comment on above: Order Comment: Speci men Type: BLOOD SPECIMEN Performed By: #### 5 8410-2 #### [facility] CLIA [id number] [address] [facility] [place] [address] [place] MCV (RBC) [Entitic vol] 91.8 fL Normal 80.0-100.0 [facility] Comment on above: Order Comment: Speci men Type: BLOOD SPECIMEN Performed By: #### 5 8410-2 #### [facility] CLIA [id number] [address] [facility] [place] [address] [place] Platelet mean volume (Bld) [Entitic vol] 10.3 fL Normal 9.0-12.7 [facility] Comment on above: Order Comment: Speci men Type: BLOOD SPECIMEN Performed By: #### 5 8410-2 #### [facility] CLIA [id number] [address] [facility] [place] [address] [place] Platelets (Bld) [#/Vol] 276 10*3/uL Normal 150-400 [facility] Comment on above: Order Comment: Speci men Type: BLOOD SPECIMEN Performed By: #### 5 8410-2 #### [facility] CLIA [id number] [address] [facility] [place] [address] [place] RBC (Bld) [#/Vol] 4.63 10*6/uL Normal 3.90-5.20 [facility] Comment on above: Order Comment: Speci men Type: BLOOD SPECIMEN Performed By: #### 5 8410-2 #### [facility] CLIA [id number] [address] [place] [address] [place] WBC (Bld) [#/Vol] 13.06 10*3/uL High 3.70-11.00 [facility] Comment on above: Order Comment: Speci men Type: BLOOD SPECIMEN Performed By: #### 5 8410-2 #### [facility] CLIA [id number] [address] [place] [address] [place] CK CREATINE KINASEon 020 CK [Catalytic activity/Vol] 1111 U/L High 42-196 [facility] Comment on above: Order Comment: Speci men Type: BLOOD SPECIMEN Performed By: #### 2 4321-2 #### [facility] CLIA [id number] [address] [place] [address] CT BRAIN WO IVCONon 03-08-[address] BRAIN WO IVCON Final Report DATE OF EXAM: Mar 08 2020 2:02PM [facility] 0504 - CT BRAIN WO IVCON / PROCEDURE REASON: Focal neuro deficit, new, fixed, or worsening, 4.5 to 24 hours, NIHSS < 6, strok Physician Interpretation EXAMINATION: CT BRAIN WO IVCON CLINICAL HISTORY: Slow speech, left-sided weakness, hypertension, diabetes. TECHNIQUE: Serial axial images without IV contrast were obtained from the vertex to the foramen magnum. MQ: CTBWO_3 CT Radiation dose: Integrated Dose-Length Product (DLP) for this visit = 772.[address] Dose Reduction Employed: No dose reduction techniques were required COMPARISON: 11/21/2017. RESULT: Lead Mason Tender (topogram) images: No additional findings. Post-operative change: Postsurgical changes from right temporal craniotomy. Acute change: Early parenchymal changes of acute to subacute infarct within right frontal lobe, and anterior aspect of right insular cortex. Additional small area of acute infarct within right anterior basal ganglia. Hemorrhage: No evidence of acute intracranial hemorrhage. ECASS hemorrhagic transformation score: Not Applicable Mass Lesion / Mass Effect: There is no evidence of an intracranial mass or extraaxial fluid collection. No significant mass effect. Chronic change: Small area of chronic infarct within left paramedian destiny. 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 Parenchyma: There is no significant volume loss. The brain parenchyma is otherwise within normal limits for age. Ventricles: The ventricles are within normal limits of size and configuration for age. Paranasal sinuses and skull base: The visualized paranasal sinuses are grossly clear. The skull base and imaged soft tissues are unremarkable. 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 No evidence of acute hemorrhage. Findings were discussed with Dr. Thurston at 2:24pm on 03/08/2020. Smalltalk Developer: [email or web address] Transcribe Date/Time: Mar 08 2020 2:18P Dictated by : CLEVE SHERIFF MD This examination was interpreted and the report reviewed and electronically signed by: CLEVE SHERIFF MD on Mar 08 2020 2:29PM EST Normal [facility] CT CERVICAL SPINE WO IVCONon 03-08-2020 CT CERVICAL SPINE WO IVCON Final Report DATE OF EXAM: Mar 08 2020 3:36PM [facility] 0505 - CT CERVICAL SPINE WO IVCON / PROCEDURE REASON: C-spine trauma, NEXUS/CCR positive Physician Interpretation EXAMINATION: CT CERVICAL SPINE WITHOUT IV CONTRAST CLINICAL HISTORY: Cervical spine trauma, nexus/CCR positive. Status post fall. TECHNIQUE: CT of the cervical spine without IV contrast. Spiral, high resolution axial images were obtained from the skull base to the cervicothoracic junction with sagittal and coronal planar reconstructions. MQ: CTCSPWO_5 CT Radiation dose: Integrated CT Dose-Length Product (DLP) for this visit = 375.[address] Dose Reduction Employed: No dose reduction techniques were required COMPARISON: Cervical spine 5 views 02/04/2018. RESULT: Counting reference: Craniocervical junction. Anatomic Variants: None. Lead Mason Tender (topogram) images: Unremarkable. Alignment: Alignment is within normal limits. Craniocervical junction: Craniocervical junction is with in normal limits. Osseous structures/fracture: No evidence of a lytic or blastic process in the visualized spine. No evidence of acute or chronic fracture. Cervical soft tissues: The paraspinal soft tissues are within normal limits. Degenerative changes: Mild to moderate multilevel degenerative changes of the cervical spine. Probable mild central canal stenosis at the C5-C6 and C6-C7 levels. IMPRESSION: 1. No evidence of acute cervical spine fracture. 2. Multilevel degenerative changes as described above. Anatomic Variant: None. Assume 7 cervical vertebrae with counting from the craniocervical junction. Smalltalk Developer: [email or web address] Transcribe Date/Time: Mar 08 2020 3:38P Dictated by : GEO CONTEH MD This examination was interpreted and the report reviewed and electronically signed by: GEO CONTEH MD on Mar 08 2020 3:55PM EST Normal [facility] CTA HEAD W IVCONon 0 CTA HEAD W IVCON Final Report DATE OF EXAM: Mar 08 2020 6:52PM [facility] 0022 - CTA HEAD W IVCON / PROCEDURE REASON: Focal neuro deficit, new, fixed, or worsening, 4.5 to 24 hours, NIHSS < 6, strok Physician Interpretation EXAMINATION: CTA HEAD W IVCON, CTA NECK W IVCON CLINICAL HISTORY: Stroke symptoms, left-sided weakness and slurred speech. TECHNIQUE: Spiral high resolution axial images were obtained through the head, neck and superior mediastinum following bolus administration of intravenous contrast for CT angiography. 3D maximum intensity projection images were created, reviewed and archived . MQ: CTAHN_4 Contrast: 100 mL Visipaque [address] Radiation dose: Integrated Dose-Length Product (DLP) for this visit = 1175.[address] Dose Reduction Employed: Automated exposure control(AEC) and iterative recon COMPARISON: CT brain and cervical spine performed earlier today for indication of trauma. Likely subacute infarct involving right insula, right frontal opercular area, adjacent right caudate, and anterior portion of right lentiform nuclei. RESULT: BRAIN: Similar appearance of low-attenuation involving right insula, anterior portion right lentiform nuclei, right caudate, and right frontal opercular area. ASPECT Score = 10 Hemorrhage: No evidence of acute intracranial hemorrhage. ECASS hemorrhagic transformation score: Not Applicable Spot Sign Presence: Not Applicable Spot Sign Number: Not Applicable NECK: No change from recent cervical spine CT. No pathologic adenopathy identified. Refer to cervical spine exam, which is optimized for assessment of the bony structures. CT ARTERIOGRAM: Extracranial Circulation: Aortic Arch: There is slight contrast opacification of the arch. Scattered atherosclerotic calcifications and a normal proximal branching pattern. Insufficient contrast to assess the specific patency of the proximal great vessels, but the peripheral outlines surrounded by the lower density fat appear typical. Exam is otherwise nondiagnostic. Carotid Stenosis: Nondiagnostic for assessment of luminal patency. Cervical Vertebral Arteries: Nondiagnostic for assessment of luminal patency. Intracranial Circulation: Anterior Circulation: Nondiagnostic for assessment of luminal patency due to lack of contrast. There is subtle increased intrinsic density visible on the individual slices from the attempted CTA in the right MCA and proximal M2 branches (axial image 361 and adjacent contiguous images for reference). This likely represents thrombus. Vertebrobasilar Circulation: Nondiagnostic for assessment of luminal patency IMPRESSION: Evolving subacute right MCA territory infarct as discussed above. Subtle increased intrinsic density right MCA as discussed above, likely thrombus. Exam is otherwise nondiagnostic for detailed assessment of luminal patency, as there is negligible contrast enhancement on this exam. Smalltalk Developer: PSCB Transcribe Date/Time: Mar 08 2020 7:19P Dictated by : CHARLES FAY MD This examination was interpreted and the report reviewed and electronically signed by: CHARLES FAY MD on Mar 08 2020 7:29PM EST Normal [facility] CTA NECK W IVCONon 0 CTA NECK W IVCON Final Report DATE OF EXAM: Mar 08 2020 6:52PM [facility] 0024 - CTA NECK W IVCON / PROCEDURE REASON: Focal neuro deficit, new, fixed, or worsening, 4.5 to 24 hours, NIHSS < 6, strok Physician Interpretation EXAMINATION: CTA HEAD W IVCON, CTA NECK W IVCON CLINICAL HISTORY: Stroke symptoms, left-sided weakness and slurred speech. TECHNIQUE: Spiral high resolution axial images were obtained through the head, neck and superior mediastinum following bolus administration of intravenous contrast for CT angiography. 3D maximum intensity projection images were created, reviewed and archived . MQ: CTAHN_4 Contrast: 100 mL Visipaque [address] Radiation dose: Integrated Dose-Length Product (DLP) for this visit = 1175.[address] Dose Reduction Employed: Automated exposure control(AEC) and iterative recon COMPARISON: CT brain and cervical spine performed earlier today for indication of trauma. Likely subacute infarct involving right insula, right frontal opercular area, adjacent right caudate, and anterior portion of right lentiform nuclei. RESULT: BRAIN: Similar appearance of low-attenuation involving right insula, anterior portion right lentiform nuclei, right caudate, and right frontal opercular area. ASPECT Score = 10 Hemorrhage: No evidence of acute intracranial hemorrhage. ECASS hemorrhagic transformation score: Not Applicable Spot Sign Presence: Not Applicable Spot Sign Number: Not Applicable NECK: No change from recent cervical spine CT. No pathologic adenopathy identified. Refer to cervical spine exam, which is optimized for assessment of the bony structures. CT ARTERIOGRAM: Extracranial Circulation: Aortic Arch: There is slight contrast opacification of the arch. Scattered atherosclerotic calcifications and a normal proximal branching pattern. Insufficient contrast to assess the specific patency of the proximal great vessels, but the peripheral outlines surrounded by the lower density fat appear typical. Exam is otherwise nondiagnostic. Carotid Stenosis: Nondiagnostic for assessment of luminal patency. Cervical Vertebral Arteries: Nondiagnostic for assessment of luminal patency. Intracranial Circulation: Anterior Circulation: Nondiagnostic for assessment of luminal patency due to lack of contrast. There is subtle increased intrinsic density visible on the individual slices from the attempted CTA in the right MCA and proximal M2 branches (axial image 361 and adjacent contiguous images for reference). This likely represents thrombus. Vertebrobasilar Circulation: Nondiagnostic for assessment of luminal patency IMPRESSION: Evolving subacute right MCA territory infarct as discussed above. Subtle increased intrinsic density right MCA as discussed above, likely thrombus. Exam is otherwise nondiagnostic for detailed assessment of luminal patency, as there is negligible contrast enhancement on this exam. Smalltalk Developer: [facility] CENTERTameka Transcribe Date/Time: Mar 08 2020 7:19P Dictated by : CHARLES FAY MD This examination was interpreted and the report reviewed and electronically signed by: CHARLES FAY MD on Mar 08 2020 7:29PM EST Normal [facility] Gas + CO Pnl BldVon 03-08-20 20 BASE DEFICIT, VENOUS -3.9 mmol/L Low -2-0 [facility] Comment on above: Order Comment: Speci men Type: BLOOD SPECIMEN Performed By: #### 5 8410-2 #### [facility] CLIA [id number] [address] [place] [address] Carboxyhemoglobin (BldV) [Mass fraction] 1.2 % Normal Non Smoker: <2.1, Smoker: 2-8 [facility] Comment on above: Order Comment: Speci men Type: BLOOD SPECIMEN Performed By: #### 5 8410-2 #### [facility] CLIA [id number] [address] [place] [address] CO2 [Moles/Vol] 22.0 mmol/L Low 25-29 [facility] Comment on above: Order Comment: Speci men Type: BLOOD SPECIMEN Performed By: #### 5 8410-2 #### [facility] CLIA [id number] [address] [place] [address] CO2 adjusted to patient's actual temperature (BldV) [Partial pressure] 41 mmHg Low 42-55 [facility] Comment on above: Order Comment: Speci men Type: BLOOD SPECIMEN Performed By: #### 5 8410-2 #### [facility] CLIA [id number] [address] [place] [address] FIO2 21 % Normal [facility] Comment on above: Order Comment: Speci men Type: BLOOD SPECIMEN Performed By: #### 5 8410-2 #### [facility] CLIA [id number] [address] [place] [address] HCO3 (Bld) [Moles/Vol] 20.8 mmol/L Low 24-28 [facility] Comment on above: Order Comment: Speci men Type: BLOOD SPECIMEN Performed By: #### 5 8410-2 #### [facility] CLIA [id number] [address] [place] [address] Hemoglobin (Bld) [Mass/Vol] 14.6 g/dL Normal 11.5-15.5 [facility] Comment on above: Order Comment: Speci men Type: BLOOD SPECIMEN Performed By: #### 5 8410-2 #### [facility] CLIA [id number] [address] [place] [address] Methemoglobin (Bld) [Mass fraction] 0.3 % Normal 0.0-1.5 [facility] Comment on above: Order Comment: Speci men Type: BLOOD SPECIMEN Performed By: #### 5 8410-2 #### [facility] CLIA [id number] [address] [place] [address] O2 THERAPY NC = Nasal Cannula Normal [facility] Comment on above: Order Comment: Speci men Type: BLOOD SPECIMEN Performed By: #### 5 8410-2 #### [facility] CLIA [id number] [address] [place] [address] Oxygen adjusted to patient's actual temperature (BldV) [Partial pressure] 40 mmHg Normal 35-45 [facility] Comment on above: Order Comment: Speci men Type: BLOOD SPECIMEN Performed By: #### 5 8410-2 #### [facility] CLIA [id number] [address] [place] [address] Oxygen saturation in Blood 44.8 % Low 60-85 [facility] Comment on above: Order Comment: Speci men Type: BLOOD SPECIMEN Performed By: #### 5 8410-2 #### [facility] CLIA [id number] [address] [place] [address] Oxyhemoglobin (BldV) [Mass fraction] 44 % Low 60-85 [facility] Comment on above: Order Comment: Speci men Type: BLOOD SPECIMEN Performed By: #### 5 8410-2 #### [facility] CLIA [id number] [address] [place] [address] pH adjusted to patient's actual temperature (BldV) 7.33 Normal 7.32-7.42 [facility] Comment on above: Order Comment: Speci men Type: BLOOD SPECIMEN Performed By: #### 5 8410-2 #### [facility] CLIA [id number] [address] [place] [address] HIGH SENSITIVITY TROPONIN To n 03-08-2020 HIGH SENSITIVITY MAXIMILIANO 39 ng/L High <12 [facility] Comment on above: Order Comment: Speci men Type: BLOOD SPECIMEN Result Comment: When assessing risk for acute coronary syndromes: In patients undergoing blood draw greater than or equal to 2 hours from symptom onset, with history of very low to moderate risk and non-ischemic ECG, an initial hs-Troponin T less than 12 ng/L AND a 1 hour delta hs-Troponin T less than 3 ng/L should be considered very low risk for 30 day MACE. Performed By: #### 5 8410-2 #### [facility] CLIA [id number] [address] [place] [address] HIGH SENSITIVITY MAXIMILIANO 41 ng/L High <12 [facility] Comment on above: Order Comment: Speci men Type: BLOOD SPECIMEN Result Comment: When assessing risk for acute coronary syndromes: In patients undergoing blood draw greater than or equal to 2 hours from symptom onset, with history of very low to moderate risk and non-ischemic ECG, an initial hs-Troponin T less than 12 ng/L AND a 1 hour delta hs-Troponin T less than 3 ng/L should be considered very low risk for 30 day MACE. Performed By: #### 5 8410-2 #### [facility] CLIA [id number] [address] [place] [address] [facility] HOSPon 03-08-2020 HOSP Patient:Ryanne Shirley MRN: Height:5' 6"(1.676 m) Weight:219 lb 4.8 oz (99.474 kg) Outpatient Medications as of 03/19/20: zolpidem (AMBIEN) 5 mg tablet oxyCODONE-acetaminophen (PERCOCET) 5-325 mg tablet diltiazem CD (CARDIZEM CD, CARTIA XT) 240 mg 24 hr capsule ALPRAZolam (XANAX) 0.5 mg tablet glipiZIDE (GLUCOTROL) 5 mg tablet sitaGLIPtin (JANUVIA) 100 mg tablet polyethylene glycol 3350 (MIRALAX ORAL) nitroglycerin sublingual (NITROQUICK) 0.4 mg SL tablet calcium carbonate (CALCIUM 600) 600 mg calcium (1,500 mg) tab BIFIDOBACTERIUM INFANTIS (ALIGN ORAL) Admission/Clinic Administered Medications as of 03/19/20: insulin lispro 14 Units pen (rapid acting) (HumaLOG KWIKPEN) NaCl 0.9% iv infusion melatonin 6 mg tab(s) insulin NPH human 12 Units injection pen (intermediate acting) (NovoLIN N, HumuLIN N) hydrALAZINE 25 mg tab(s) (APRESOLINE) insulin NPH human 8 Units injection pen (intermediate acting) (NovoLIN N, HumuLIN N) dilTIAZem CD 180 mg cap(s) (CARDIZEM CD, CARTIA XT) dexAMETHasone 6 mg tab(s) (DECADRON) pantoprazole DR 40 mg tab(s) (PROTONIX) insulin lispro pen (rapid acting) (HumaLOG KWIKPEN) pill sheet rock hanger (patient-specific) ondansetron 4 mg tab(s) (ZOFRAN) nystatin 5 mL oral liquid (MYCOSTATIN) sodium chloride 0.9 % (flush) 10 mL (BD POSIFLUSH) sodium chloride 0.9 % (flush) 20 mL (BD POSIFLUSH) fentaNYL 50 mcg/mL 25 mcg injection (SUBLIMAZE) miconazole 2 % 1 application topical powder (LOTRIMIN AF, DESENEX) atorvastatin 80 mg tab(s) (LIPITOR) dextrose 40 % 15 g glucagon 1 mg injection dextrose 50% in water 25 mL syringe docusate 100 mg oral liquid (DIOCTO, COLACE) bisacodyl 10 mg suppository (DULCOLAX) ondansetron (PF) 4 mg injection (ZOFRAN) acetaminophen 650 mg tab(s) (TYLENOL) acetaminophen 650 mg CUP (TYLENOL) acetaminophen 650 mg suppository (TYLENOL) Problem List: Lumbar degenerative disc disease [M51.36] Essential hypertension [I10] Insomnia [G47.00] Type 2 diabetes mellitus with diabetic neuropathy, without long-term current use of insulin (HCC) [E11.40] 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, G63] Malaise and fatigue [R53.81, R53.83] SEE (generalized anxiety disorder) [F41.1] Dysphagia [R13.10] Osteoporosis without current pathological fracture [M81.0] Migraine without aura and without status migrainosus, not intractable [G43.009] Irritable bowel syndrome with diarrhea [K58.0] Obesity, Class III, BMI >= 40 E66.01 [E66.01] Neck pain [M54.2] Chronic kidney disease, stage 3, mod decreased GFR [N18.30] Recurrent major depressive disorder, in partial remission (HCC) [F33.41] Vitamin D deficiency [E55.9] GERD without esophagitis [K21.9] Coronary artery disease involving sitka coronary artery of sitka heart without angina pectoris [I25.10] Other constipation [K59.09] Acute right MCA stroke (HCC) [I63.511] Acute kidney injury superimposed on chronic kidney disease (HCC) [N17.9, N18.9] Sinus tachycardia [R00.0] Fall [W19.XXXA] Leukocytosis [D72.829] Fever [R50.9] Elevated troponin [R77.8] Closed left ankle fracture [S82.352A] Respiratory tract infection due to COVID-19 virus [U07.1, J98.8] Allergies: Sofia Inhibitors Actos [Pioglitazone] Buspar [Buspirone] Crestor [Rosuvastatin Calcium] Glimepiride Glipizide Lexapro [Escitalopram Oxalate] Meloxicam Metformin Nsaids (Non-Steroidal Anti-Inflammatory Drug) Prednisone Seroquel [Quetiapine] Date Verified: 03/19/20 Lab Values Lab Value Units Date High Low POTA* 3.9 mmol/L 03/18/2020 5.1 3.7 YANNICK* 38.7 % 03/19/2020 46.0 36.0 Progress Notes (): RT Minnie, Tech 03/08/2020 10:34 PM Signed Radiology Service Progress Note PATIENT NAME: Lisa Shirley DATE OF SERVICE: March 08, 2020 TIME: 10:30 PM PATIENT IDENTITY VERIFICATION COMPLETED USING TWO (2) IDENTIFIERS: Name and Date of confirmed by identification band. FALL SCREENING: Has the patient had 2 falls in the last year or 1 fall with injury or currently using an Ambulatory Assistive Device (Walker, Cane, Wheelchair, Crutches, etc.)? Inpatient: Screened on floor PATIENT GENDER DATA: Female. status: : No status: NO. PATIENT RELEVANT IMPLANT DATA REVIEWED: Not Applicable RADIOLOGY DEPARTMENT: General X-ray: Exam(s) Completed: Chest X-Ray PERIPHERAL IV DATA: Not applicable SIGNED BY: RT Minnie March 08, 2020 10:30 PM Akin Schwab DO 03/09/2020 8:22 AM Addendum SERVICE DATE: 03/08/2020 SERVICE TIME: 11:00PM NEUROLOGICAL INTENSIVE CARE UNIT HISTORY AND PHYSICAL (STROKE CARE PATH) REASON FOR STROKE EVALUATION: Left Sided Weakness, Dysarthria and Facial droop REASON FOR NEUROLOGICAL ICU ADMISSION: Acute R MCA stroke Stroke Mechanism: METRICS: Initial NIHSS Score: 20 Columbia Coma Scale Totals (Calculated): 14 Date Patient Last Known Well: 03/06/20 Date of Patient Arrival at THIS Facility: 03/08/20 Time of Patient Arrival at THIS Facility: 2155 Pre-admission: Was patient on antithrombotic agent prior to admission: No Premorbid Modified Jefferson Score: 0=0 - No symptoms at all Baseline Functional Status (i.e. ADL's, Ambulatory Status, Cognitive Issues): Lives alone, ambulatory at baseline, AANDOx3. Subjective HPI: Patient is a 74 year old female with past medical history significant for DM type II, HTN, CKD stage 3, HLD, SEE, major depressive disorder, GERD, Insomnia, and IBS who presents as transfer from [place] with findings of acute R MCA stroke. Patient was reportedly found down at home and had not been seen since Thursday. Police sent to home for welfare check. Per son, there was an email sent yesterday to him from her so unsure if LKW was 1 or 2 days ago. Patient found to have left sided deficits, dysarthria and left ankle bruising/swelling. Patient reportedly has hx of stroke but no prior deficits. In ED at [facility], stroke eval performed with CT findings of R caudate, insula and frontal evolving infarcts. ASPECTS score 5. CTA nondiagnostic as contrast infiltrated in arm and IV access lost during scan. Central line placed at [facility] for access. Patient out of window for tPA and also no role for endovascular therapy given 24-48hours out and evidence of evolving infarct on CT. Patient also found to be in DKA with glucose >500, ketones and anion gap of 21. Given SQ insulin at OSH. CK elevated >1,000. Given IVF. Patient hypertensive, tachycardic and febrile. COVID negative. Left ankle fracture by XR. Patient subsequently transferred here to [facility] for further stroke workup and management. PAST MEDICAL HISTORY Diagnosis Date - Anxiety - Chest pain - Chronic pain sensitive to Cymbalta - Degeneration of lumbar intervertebral disc - Depression - Diabetes (HCC) - Diabetic polyneuropathy associated with type 2 diabetes mellitus (HCC) - Disorder of sacrum - Essential hypertension - Fatigue - Generalized anxiety disorder sensi to Cymbalta, etc; PREFERS XANAX only tok ok 09/08 - History of cerebrovascular accident - Hyperlipidemia - Hypertension - IBS (irritable bowel syndrome) - Idiopathic osteoporosis - Insomnia - Low back pain - Lumbar radiculopathy - Major depressive disorder - Morbid obesity (HCC) BMI 47 - Neuropathy - Obstructive sleep apnea syndrome - Osteoporosis - Panic state as acute reaction to stress - Sleep disorder - Stroke (HCC) - 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) - Vitamin B12 deficiency (non anemic) - Vitamin D deficiency PAST SURGICAL HISTORY Procedure Laterality Date - CHOLECYSTECTOMY HX - COLONOSCOPY usually had some polyps 2009 FAMILY HISTORY Problem Relation Age of Onset - Colon Cancer Father - Cancer Father - other (Lung cancer) Mother - other (Diverticulitis) Brother Social History Tobacco Use - Smoking status: Never Smoker - Smokeless tobacco: Never Used - Tobacco comment: Never smoked; Tobacco reviewed with patient 12/04/2015 Substance Use Topics - Alcohol use: No Comment: Non-drinker - Drug use: No MEDICATIONS Prior to Admission - zolpidem (AMBIEN) 5 mg tablet, Take 1 tablet by mouth at bedtime as needed for up to 90 days., Disp: 90 tablet, Rfl: 0 - oxyCODONE-acetaminophen (PERCOCET) 5-325 mg tablet, Take 1 tablet by mouth every 8 hours as needed for Pain for up to 30 days., Disp: 90 tablet, Rfl: 0 - diltiazem CD (CARDIZEM CD, CARTIA XT) 240 mg 24 hr capsule, TAKE 1 CAPSULE BY MOUTH EVERY DAY, Disp: 30 capsule, Rfl: 1 - ALPRAZolam (XANAX) 0.5 mg tablet, Take 1 tablet by mouth three times daily as needed for up to 90 days., Disp: 270 tablet, Rfl: 0 - glipiZIDE (GLUCOTROL) 5 mg tablet, Take 1 tablet by mouth twice daily before meals., Disp: 180 tablet, Rfl: 1 - sitaGLIPtin (JANUVIA) 100 mg tablet, Take 1 tablet by mouth once daily., Disp: 90 tablet, Rfl: 0 - ALPRAZolam (XANAX) 0.5 mg tablet, Take 1 tablet by mouth three times daily as needed for up to 30 days., Disp: 90 tablet, Rfl: 0 - polyethylene glycol 3350 (MIRALAX ORAL), Take by mouth., Disp: , Rfl: - nitroglycerin sublingual (NITROQUICK) 0.4 mg SL tablet, Dissolve 1 tablet under the tongue every 5 minutes as needed., Disp: 1 Bottle of 25, Rfl: 2 - calcium carbonate (CALCIUM 600) 600 mg calcium (1,500 mg) tab, Take 600 mg by mouth three times daily., Disp: , Rfl: - BIFIDOBACTERIUM INFANTIS (ALIGN ORAL), Take by mouth once daily., Disp: , Rfl: ALLERGIES Allergen Reactions - Sofia Inhibitors Contraindication-Medical Surgical Chronic kidney disease - Actos [Pioglitazone] Intolerance - Buspar [Buspirone] Intolerance rem behavior disorder - Crestor [Rosuvastat* Unknown Sensitivity - Glimepiride Intolerance - Glipizide Intolerance - Lexapro [Escitalopr* Mental Status Change - Meloxicam Unknown - Metformin Contraindication-Medical Surgical Chronic kidney disease - Nsaids (Non-Steroid* Contraindication-Medical Surgical Chronic kidney disease - Prednisone Unknown Sensitivity - Seroquel [Quetiapin* Intolerance COMPLETE REVIEW OF SYSTEMS Unable to obtain ROS 2/2 patient aphasia/AMS Objective BP 153/96 Pulse 109 Temp (!) 38.5 ?C (101.3 ?F) Resp 29 SpO2 96% PHYSICAL EXAM: GCS: Eyes: 4. Spontaneous Verbal: 3: Inappropriate words Motor: 6: Obeys Motor commands Total: 13 CV: Sinus tachycardia, S1/S2 Pulm: CTA bilaterally, even and unlabored on RA. GI/: Abdomen soft, non tender, non distended Skin/Extremities: Edema- No Peripheral pulses- Present all extremities Wounds/Drsgs- Yes Left ankle wrapped/dressed (fx). Breakdown- No NEUROLOGICAL: MOTOR STRENGTH: Minimal movement 1/5 to LUE/LLE, 5/5 RUE (reaching for things in the air with RUE), 3/5 RLE SENSATION: Diminished light touch on the L COORDINATION:Unable to assess iNIHSS LOC: 0 - alert and responsive 0 LOC Questions: 1 - one correct 1 LOC Commands: 1 - one correct 1 Best Gaze: 1 - partial gaze palsy, abnormal gaze in 1 or both eyes 1 Visual: 2 - complete hemianopia 2 Facial Palsy: 2 - partial paralysis 2 Motor Left Arm: 3 - no antigravity effort but even minimal movements count 3 Motor Right Arm: 0 - no drift 0 Motor Left Le - no antigravity effort but even minimal movements count 3 Motor Right Le - some antigravity effort but cannot sustain 2 Limb Ataxia: 0 - no ataxia (or aphasic, hemiplegic) 0 Sensory: 2 - total loss, patient unaware of touch. coma, bilateral loss 2 Best Language: 1 - mild-mod aphasia (comprehensible) 1 Dysarthria: 1 - mild-mod slurred 1 Extinction and Inattention: 1 - neglects or extinguishes to double simultaneous stimulation in any modality 1 Initial NIHSS Score: 20 (03/08/20 2200 : Caro Wen ([place])) 20 STROKE CARE AND PREVENTION CHECKLIST Is the patient on VTE prophylaxis: Mechanical prophylaxis;Pharmacological prophylaxis Pharmacological intervention type: Heparin SQ Mechanical intervention type: Intermittent compression stocking(s) GLYCEMIC Control Medications: BG needs further management Stroke BP Goals: Permissive HTN (treat if >220/120) Stroke BP Control: BP needs further management Stroke IVF/Nutrition: IVF TEMPERATURE Control: Normothermic Does the patient need THERAPY: Yes Therapy involvement: PT;OT;ST;PMANDR DATA: Diagnostic tests reviewed for today's visit: Most recent labs and imaging results. personally reviewed Lines, Drains, and Airways None PERSONAL INVOLVEMENT IN CARE: Reviewing initiation, responses and adjustments to therapies, coordination of care, and updating family with Staff Physician, Dr. Schwab. Assessment AND Plan Active Hospital Problems as of 03/09/2020 Noted - Resolved Hospital Acute on chronic renal insufficiency 03/09/2020 - Present Current Assessment AND Plan Assessment: Mild JIHAN in setting of rhabdo/mild dehydration, DKA PLAN: - IVF resuscitation - Monitor daily labs Acute right MCA stroke (HCC) 03/08/2020 - Present Current Assessment AND Plan Assessment: Acute R MCA stroke Evolving R caudate, insular, and frontal infarcts on presenting non contrast CTH CTAs nondiagnostic 2/2 contrast extravasation 2/2 loss of access/blown IV >24-48 hours from LKW, therefore not candidate for tPA and not candidate for intervention given already evident stroke on CT PLAN: - Neuro checks q1h - Antiplatelet - DVT chemoppx - Patient with reported ?intolerance to statin in past. Would consider trial of alternative statin. - Permissive HTN for now. Gradual reduction to normotensive goal in AM as >24 hours out - Monitor tele - Daily labs , including HbA1c and Lipid panel - Echocardiogram - MRI vs Repeat CTH tomorrow - IVF - NPO - PT/OT/ST - Stroke neuro c/s Chronic kidney disease, stage 3, mod decreased GFR 08/03/2018 - Present Current Assessment AND Plan Assessment: Baseline Cr. >1.2 PLAN: - Monitor daily labs - Avoid nephrotoxic agents Closed left ankle fracture 03/09/2020 - Present Current Assessment AND Plan Assessment: bilateral malleolar fracture PLAN: - C/s to ortho. Recs appreciated - s/p reduction and casting Diabetic ketoacidosis without coma associated with type 2 diabetes mellitus (HCC) 03/09/2020 - Present Current Assessment AND Plan Assessment: Glucose >500, ketones >2.00, Anion gap of 21 PLAN: - Insulin gtt at 0.1U/kg/hr - 1/2NS @100cc/hr until glucose <250, then and D5 to 1/2NS - glucose checks q1h for now - Transition to SQ insulin once anion gap closed and normalization of bicarb - Endo c/s in AM Dysphagia 11/05/2016 - Present Current Assessment AND Plan Assessment: Initially passed bedside swallow eval but then pocketed PO meds. PLAN: - Keep NPO for now - ST eval in AM for diet recs before placing [place] Elevated troponin 03/09/2020 - Present Current Assessment AND Plan Assessment: 41-->39-->58. Suspect type II, demand ischemia PLAN: - Trend to ensure coming down Essential hypertension 06/04/2016 - Present Current Assessment AND Plan Assessment: Hypertensive w/ SBP >200s at OSH. PLAN: Allow for permissive HTN for now. Although likely already out of stroke onset >48hrs. - Gradual reduction to normotensive goal in AM. - holding home meds for now - PRN antihypertensives Fall 03/09/2020 - Present Current Assessment AND Plan Assessment: Unwitnessed fall at home in setting of stroke and L sided weakness Fever 03/09/2020 - Present Current Assessment AND Plan Assessment: ?infectous, although possible just inflammatory - dehydration/pain 2/2 ankle fx, metabolic comorbidities PLAN: - PRN tylenol - IVF - Infectious lawson as noted above. Leukocytosis 03/09/2020 - Present Current Assessment AND Plan Assessment: 14,000. Febrile. Elevated procal. ? Developing aspiration PNA PLAN: - UA appears negative for infection - Check blood cx, sputum cx, - CXR - lactic acid WNL - Will start empiric abx- Vanc/Zosyn for now - Fu daily cbc Rhabdomyolysis 03/09/2020 - Present Current Assessment AND Plan Assessment: S/p fall at home w/ prolonged downtime. CK 1,111 at OSH, Troponin elevation PLAN: - IVF resuscitation - Monitor renal function - Fu trop and CK to ensure trending down Sinus tachycardia 03/09/2020 - Present Current Assessment AND Plan Assessment: 2/2 acute co morbidities - rhabdo, JIHAN, dehydration, DKA PLAN: - IVF resuscitation - Check EKG Type 2 diabetes mellitus with diabetic neuropathy, without long-term current use of insulin ([facility]) 06/04/2016 - Present Current Assessment AND Plan Assessment: most recent HbA1c of 12%. Currently in DKA PLAN: - Holding home PO meds - Insulin gtt with transition to SQ insulin regimen when better control of glucose ( see below) - Check HbA1c Medication and Non-Pharmacologic VTE Prophylaxis/Anticoagulants Anticoagulant AND Antiplatelet Medications (From admission, onward) Start Dose Route Frequency Ordered Stop 03/08/20 2230 heparin 5,000 Units injection (Medical Risk Categories) 5,000 Units SUBCUTANEOUS EVERY 8 HOURS 03/08/20 2220 -- 03/09/20 0600 activity - mobilize patient ([place]) 03/08/20 221 pneumatic compression stockings ([place]) VTE Prophylaxis: VTE prophylaxis appropriate Critical Care Time Spent: 50 minutes SIGNATURE: Caro Wen PA-C PATIENT NAME: Lisa Shirley DATE: March 09, 2020 TIME: 3:54 AM PAGER/CONTACT #: Attending Note I have personally performed a face to face assessment of the patient and have reviewed the PA/MATTRESS PACKER note. Signature: Akin Schwab DO Previous Version Caro Wen PA-C 03/08/2020 11:59 PM Edited Patient is a 74 year old female with past medical history significant for DM type II, HTN, CKD stage 3, HLD, SEE, major depressive disorder, GERD, Insomnia, and IBS who presents as transfer from [place] with findings of acute R MCA stroke. Patient was reportedly found down at home and had not been seen since Thursday. Police sent to home for welfare check. Per son, there was an email sent yesterday to him from her so unsure if LKW was 1 or 2 days ago. Patient found to have left sided deficits, dysarthria and left ankle bruising/swelling. Patient reportedly has hx of stroke but no prior deficits. In ED at [facility], stroke eval performed with CT findings of R caudate, insula and frontal evolving infarcts. ASPECTS score 5. CTA nondiagnostic as contrast infiltrated in arm and IV access lost during scan. Central line placed at [facility] for access. Patient out of window for tPA and also no role for endovascular therapy given 24-48hours out and evidence of evolving infarct on CT. Patient also found to be in DKA with glucose >500, ketones and anion gap of 21. Given SQ insulin at OSH. CK elevated >1,000. Given IVF. Patient hypertensive, tachycardic and febrile. COVID negative. Left ankle fracture by XR. Patient subsequently transferred here to [facility] for further stroke workup and management. Previous Version Caro Wen PA-C 03/09/2020 12:06 AM Written NEUROLOGICAL INTENSIVE CARE UNIT HISTORY AND PHYSICAL (STROKE CARE PATH) REASON FOR STROKE EVALUATION: Left Sided Weakness, Dysarthria and Facial droop REASON FOR NEUROLOGICAL ICU ADMISSION: Acute R MCA stroke Stroke Mechanism: METRICS: Initial NIHSS Score: 20 Columbia Coma Scale Totals (Calculated): 14 Date Patient Last Known Well: 03/06/20 Date of Patient Arrival at THIS Facility: 03/08/20 Time of Patient Arrival at THIS Facility: 2154 Pre-admission: Was patient on antithrombotic agent prior to admission: No Premorbid Modified Jefferson Score: 0=0 - No symptoms at all Baseline Functional Status (i.e. ADL's, Ambulatory Status, Cognitive Issues): Lives alone, ambulatory at baseline, AANDOx3. Subjective HPI: Patient is a 74 year old female with past medical history significant for DM type II, HTN, CKD stage 3, HLD, SEE, major depressive disorder, GERD, Insomnia, and IBS who presents as transfer from [place] with findings of acute R MCA stroke. Patient was reportedly found down at home and had not been seen since Thursday. Police sent to home for welfare check. Per son, there was an email sent yesterday to him from her so unsure if LKW was 1 or 2 days ago. Patient found to have left sided deficits, dysarthria and left ankle bruising/swelling. Patient reportedly has hx of stroke but no prior deficits. In ED at [facility], stroke eval performed with CT findings of R caudate, insula and frontal evolving infarcts. ASPECTS score 5. CTA nondiagnostic as contrast infiltrated in arm and IV access lost during scan. Central line placed at [facility] for access. Patient out of window for tPA and also no role for endovascular therapy given 24-48hours out and evidence of evolving infarct on CT. Patient also found to be in DKA with glucose >500, ketones and anion gap of 21. Given SQ insulin at OSH. CK elevated >1,000. Given IVF. Patient hypertensive, tachycardic and febrile. COVID negative. Left ankle fracture by XR. Patient subsequently transferred here to [facility] for further stroke workup and management. PAST MEDICAL HISTORY Diagnosis Date - Anxiety - Chest pain - Chronic pain sensitive to Cymbalta - Degeneration of lumbar intervertebral disc - Depression - Diabetes (HCC) - Diabetic polyneuropathy associated with type 2 diabetes mellitus (HCC) - Disorder of sacrum - Essential hypertension - Fatigue - Generalized anxiety disorder sensi to Cymbalta, etc; PREFERS XANAX only tok ok 09/08 - History of cerebrovascular accident - Hyperlipidemia - Hypertension - IBS (irritable bowel syndrome) - Idiopathic osteoporosis - Insomnia - Low back pain - Lumbar radiculopathy - Major depressive disorder - Morbid obesity (HCC) BMI 47 - Neuropathy - Obstructive sleep apnea syndrome - Osteoporosis - Panic state as acute reaction to stress - Sleep disorder - Stroke (HCC) - 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) - Vitamin B12 deficiency (non anemic) - Vitamin D deficiency PAST SURGICAL HISTORY Procedure Laterality Date - CHOLECYSTECTOMY HX - COLONOSCOPY usually had some polyps 2009 FAMILY HISTORY Problem Relation Age of Onset - Colon Cancer Father - Cancer Father - other (Lung cancer) Mother - other (Diverticulitis) Brother Social History Tobacco Use - Smoking status: Never Smoker - Smokeless tobacco: Never Used - Tobacco comment: Never smoked; Tobacco reviewed with patient 12/04/2015 Substance Use Topics - Alcohol use: No Comment: Non-drinker - Drug use: No MEDICATIONS Prior to Admission - zolpidem (AMBIEN) 5 mg tablet, Take 1 tablet by mouth at bedtime as needed for up to 90 days., Disp: 90 tablet, Rfl: 0 - oxyCODONE-acetaminophen (PERCOCET) 5-325 mg tablet, Take 1 tablet by mouth every 8 hours as needed for Pain for up to 30 days., Disp: 90 tablet, Rfl: 0 - diltiazem CD (CARDIZEM CD, CARTIA XT) 240 mg 24 hr capsule, TAKE 1 CAPSULE BY MOUTH EVERY DAY, Disp: 30 capsule, Rfl: 1 - ALPRAZolam (XANAX) 0.5 mg tablet, Take 1 tablet by mouth three times daily as needed for up to 90 days., Disp: 270 tablet, Rfl: 0 - glipiZIDE (GLUCOTROL) 5 mg tablet, Take 1 tablet by mouth twice daily before meals., Disp: 180 tablet, Rfl: 1 - sitaGLIPtin (JANUVIA) 100 mg tablet, Take 1 tablet by mouth once daily., Disp: 90 tablet, Rfl: 0 - ALPRAZolam (XANAX) 0.5 mg tablet, Take 1 tablet by mouth three times daily as needed for up to 30 days., Disp: 90 tablet, Rfl: 0 - polyethylene glycol 3350 (MIRALAX ORAL), Take by mouth., Disp: , Rfl: - nitroglycerin sublingual (NITROQUICK) 0.4 mg SL tablet, Dissolve 1 tablet under the tongue every 5 minutes as needed., Disp: 1 Bottle of 25, Rfl: 2 - calcium carbonate (CALCIUM 600) 600 mg calcium (1,500 mg) tab, Take 600 mg by mouth three times daily., Disp: , Rfl: - BIFIDOBACTERIUM INFANTIS (ALIGN ORAL), Take by mouth once daily., Disp: , Rfl: ALLERGIES Allergen Reactions - Sofia Inhibitors Contraindication-Medical Surgical Chronic kidney disease - Actos [Pioglitazone] Intolerance - Buspar [Buspirone] Intolerance rem behavior disorder - Crestor [Rosuvastat* Unknown Sensitivity - Glimepiride Intolerance - Glipizide Intolerance - Lexapro [Escitalopr* Mental Status Change - Meloxicam Unknown - Metformin Contraindication-Medical Surgical Chronic kidney disease - Nsaids (Non-Steroid* Contraindication-Medical Surgical Chronic kidney disease - Prednisone Unknown Sensitivity - Seroquel [Quetiapin* Intolerance COMPLETE REVIEW OF SYSTEMS Unable to obtain ROS 2/2 patient aphasia/AMS Objective BP 153/96 Pulse 109 Temp (!) 38.5 ?C (101.3 ?F) Resp 29 SpO2 96% PHYSICAL EXAM: GCS: Eyes: 4. Spontaneous Verbal: 3: Inappropriate words Motor: 6: Obeys Motor commands Total: 13 CV: Sinus tachycardia, S1/S2 Pulm: CTA bilaterally, even and unlabored on RA. GI/: Abdomen soft, non tender, non distended Skin/Extremities: Edema- No Peripheral pulses- Present all extremities Wounds/Drsgs- Yes Left ankle wrapped/dressed (fx). Breakdown- No NEUROLOGICAL: MOTOR STRENGTH: Minimal movement 1/5 to LUE/LLE, 5/5 RUE (reaching for things in the air with RUE), 3/5 RLE SENSATION: Diminished light touch on the L COORDINATION:Unable to assess iNIHSS LOC: 0 - alert and responsive 0 LOC Questions: 1 - one correct 1 LOC Commands: 1 - one correct 1 Best Gaze: 1 - partial gaze palsy, abnormal gaze in 1 or both eyes 1 Visual: 2 - complete hemianopia 2 Facial Palsy: 2 - partial paralysis 2 Motor Left Arm: 3 - no antigravity effort but even minimal movements count 3 Motor Right Arm: 0 - no drift 0 Motor Left Le - no antigravity effort but even minimal movements count 3 Motor Right Le - some antigravity effort but cannot sustain 2 Limb Ataxia: 0 - no ataxia (or aphasic, hemiplegic) 0 Sensory: 2 - total loss, patient unaware of touch. coma, bilateral loss 2 Best Language: 1 - mild-mod aphasia (comprehensible) 1 Dysarthria: 1 - mild-mod slurred 1 Extinction and Inattention: 1 - neglects or extinguishes to double simultaneous stimulation in any modality 1 Initial NIHSS Score: 20 (03/08/20 2200 : Caro Wen ([place])) 20 STROKE CARE AND PREVENTION CHECKLIST Is the patient on VTE prophylaxis: Mechanical prophylaxis;Pharmacological prophylaxis Pharmacological intervention type: Heparin SQ Mechanical intervention type: Intermittent compression stocking(s) GLYCEMIC Control Medications: BG needs further management Stroke BP Goals: Permissive HTN (treat if >220/120) Stroke BP Control: BP needs further management Stroke IVF/Nutrition: IVF TEMPERATURE Control: Normothermic Does the patient need THERAPY: Yes Therapy involvement: PT;OT;ST;PMANDR DATA: Diagnostic tests reviewed for today's visit: Most recent labs and imaging results. personally reviewed Lines, Drains, and Airways None PERSONAL INVOLVEMENT IN CARE: Reviewing initiation, responses and adjustments to therapies, coordination of care, and updating family with Staff Physician, Dr. Schwab. RT Ranjan, Jade 03/08/2020 11:46 PM Signed Radiology Service Progress Note PATIENT NAME: Lisa Shirley DATE OF SERVICE: March 08, 2020 TIME: 11:46 PM PATIENT IDENTITY VERIFICATION COMPLETED USING TWO (2) IDENTIFIERS: Name and Date of confirmed by identification band. FALL SCREENING: Has the patient had 2 falls in the last year or 1 fall with injury or currently using an Ambulatory Assistive Device (Walker, Cane, Wheelchair, Crutches, etc.)? Inpatient: Screened on floor PATIENT GENDER DATA: Female. status: : No status: NO. PATIENT RELEVANT IMPLANT DATA REVIEWED: Not Applicable RADIOLOGY DEPARTMENT: General X-ray: Exam(s) Completed: Lower Extremity X-Ray(s): Ankle, Left: PERIPHERAL IV DATA: Not applicable SIGNED BY: RT Ranjan March 08, 2020 11:46 PM Perla Davis RN, RN 03/09/2020 1:00 AM Signed Nursing Progress: Topic: RESTRAINT NON-VIOLENT PATIENT NAME: Lisa Shirley PATIENT LOCATION: [place] [address]/[place] [id number]* The patient demonstrates Confusion, Attempting to Remove Medical Devices Vital to Medical Stability, Lack of Understanding/Ability to Comply with Safety Directions as evidenced by the following behaviors pt attempting to remove medical equipment which pose an imminent danger to self or others. The following interventions were attempted but were not effective in protecting the patient's safety: Modify Environment, Modify Equipment, Frequent Observation Next, a comprehensive assessment was performed and warranted placing the patient in Soft Bilateral Wrists, the least restrictive restraint needed to protect the patient's safety. Ongoing safety assessments and evaluation for earliest removal of restraints will be performed. DATE: March 09, 2020 TIME: 12:59 AM JONNY Abdi RT, Tech 03/09/2020 1:06 AM Signed Radiology Service Progress Note PATIENT NAME: Lisa Shirley DATE OF SERVICE: March 09, 2020 TIME: 1:06 AM PATIENT IDENTITY VERIFICATION COMPLETED USING TWO (2) IDENTIFIERS: Name and Date of confirmed by identification band. FALL SCREENING: Has the patient had 2 falls in the last year or 1 fall with injury or currently using an Ambulatory Assistive Device (Walker, Cane, Wheelchair, Crutches, etc.)? Inpatient: Screened on floor PATIENT GENDER DATA: Female. status: : No status: NO. PATIENT RELEVANT IMPLANT DATA REVIEWED: Not Applicable RADIOLOGY DEPARTMENT: General X-ray: Exam(s) Completed: Lower Extremity X-Ray(s): Ankle, Left: PERIPHERAL IV DATA: Not applicable SIGNED BY: RT Ranjan March 09, 2020 1:06 AM TEMITOPE MOORE, PHARMACIST 03/09/2020 2:39 AM Signed PHARMACY VANCOMYCIN DOSING NOTE Patient Name: Lisa Shirley Admission Date: 03/08/2020 Date of Consult: 03/09/2020 Time of Consult: 2:36 AM Indication: Pneumonia Goal Range: 10-20 mcg/mL RECOMMENDATIONS/PLAN: Pharmacy consulted for vancomycin dosing for Lisa Shirley, a 74 year old, female who is being treated with vancomycin for PNA. 1. Patient is currently ordered Vancomycin 1.5 g IV q12h. Today is day 1 of therapy. 2. No vancomycin level has been drawn for this dosing regimen. 3. Will adjust vancomycin to 1.5 g with a dosing interval of q24h 4. The next vancomycin level will be ordered for 03/12/2020 @ 0200 prior to the 4th dose of the regimen unless clinically indicated sooner. (Pharmacy will order) 5. S. aureus nasal PCR swab ordered We will follow patient renal function, vancomycin levels and doses with you during the course of therapy. Additional recommendations will appear in follow up notes. If you have any questions[place] [phone]. Age: [age] year old Allergies: ALLERGIES Allergen Reactions - Sofia Inhibitors Contraindication-Medical Surgical Chronic kidney disease - Actos [Pioglitazone] Intolerance - Buspar [Buspirone] Intolerance rem behavior disorder - Crestor [Rosuvastat* Unknown Sensitivity - Glimepiride Intolerance - Glipizide Intolerance - Lexapro [Escitalopr* Mental Status Change - Meloxicam Unknown - Metformin Contraindication-Medical Surgical Chronic kidney disease - Nsaids (Non-Steroid* Contraindication-Medical Surgical Chronic kidney disease - Prednisone Unknown Sensitivity - Seroquel [Quetiapin* Intolerance Last 3 Encounter Wt Readings: Date: Wt: 03/08/2020 107.2 kg (236 lb 5.3 oz) 03/08/2020 101.7 kg (224 lb 3.3 oz) 11/11/2019 96.3 kg (212 lb 3.2 oz) Last 1 Encounter Ht Readings: Date: Ht: 03/08/2020 167.6 cm (5' 6") CrCl: 53.4 mL/min Temp (24hrs), Av.4 ?C (101.1 ?F), Min:38.2 ?C (100.8 ?F), Max:38.5 ?C (101.3 ?F) - Current Temp: (!) 38.2 ?C (100.8 ?F) Labs BUN (mg/dL) Date Value 03/08/2020 25 (H) 03/08/2020 25 (H) 03/08/2020 24 (H) 11/07/2019 16 03/14/2019 17 09/03/2018 24 (H) Creatinine (mg/dL) Date Value 03/08/2020 1.18 (H) 03/08/2020 1.18 (H) 03/08/2020 1.30 (H) 11/07/2019 1.39 (H) 03/14/2019 1.31 (H) 09/03/2018 1.24 (H) WBC Date Value 03/08/2020 14.71 k/uL (H) 03/08/2020 13.06 k/uL (H) 03/14/2019 6.1 thou/cmm 11/21/2017 6.5 thou/cmm 09/07/2017 5.48 k/uL Vancomycin Levels: No results found for: GATO MOORE, PHARMACIST Caro Wen PA-C 03/09/2020 3:44 AM Edited Assessment: most recent HbA1c of 12%. Currently in DKA PLAN: - Holding home PO meds - Insulin gtt with transition to SQ insulin regimen when better control of glucose ( see below) - Check HbA1c Previous Version Caro Wen PA-C 03/09/2020 3:22 AM Edited Assessment: Hypertensive w/ SBP >200s at OSH. PLAN: Allow for permissive HTN for now. Although likely already out of stroke onset >48hrs. - Gradual reduction to normotensive goal in AM. - holding home meds for now - PRN antihypertensives Previous Version Caro Wen PA-C 03/09/2020 3:22 AM Written Assessment: Initially passed bedside swallow eval but then pocketed PO meds. PLAN: - Keep NPO for now - ST eval in AM for diet recs before placing Corpak Caro Wen PA-C 03/09/2020 3:32 AM Edited Assessment: Baseline Cr. >1.2 PLAN: - Monitor daily labs - Avoid nephrotoxic agents Previous Version Caro Wen PA-C 03/09/2020 3:29 AM Edited Assessment: Acute R MCA stroke Evolving R caudate, insular, and frontal infarcts on presenting non contrast CTH CTAs nondiagnostic 2/2 contrast extravasation 2/2 loss of access/blown IV >24-48 hours from [facility], therefore not candidate for tPA and not candidate for intervention given already evident stroke on CT PLAN: - Neuro checks q1h - Antiplatelet - DVT chemoppx - Patient with reported ?intolerance to statin in past. Would consider trial of alternative statin. - Permissive HTN for now. Gradual reduction to normotensive goal in AM as >24 hours out - Monitor tele - Daily labs , including HbA1c and Lipid panel - Echocardiogram - MRI vs Repeat CTH tomorrow - IVF - NPO - PT/OT/ST - Stroke neuro c/s Previous Version Caro Wen PA-C 03/09/2020 3:31 AM Written Assessment: Mild JIHAN in setting of rhabdo/mild dehydration, DKA PLAN: - IVF resuscitation - Monitor daily labs Caro Wen PA-C 03/09/2020 3:33 AM Written Assessment: 2/2 acute co morbidities - rhabdo, JIHAN, dehydration, DKA PLAN: - IVF resuscitation - Check EKG Caro Wen PA-C 03/09/2020 3:34 AM Edited Assessment: S/p fall at home w/ prolonged downtime. CK 1,111 at OSH, Troponin elevation PLAN: - IVF resuscitation - Monitor renal function - Fu trop and CK to ensure trending down Previous Version Caro Wen PA-C 03/09/2020 3:34 AM Written Assessment: Unwitnessed fall at home in setting of stroke and L sided weakness Caro Wen PA-C 03/09/2020 3:44 AM Written Assessment: Glucose >500, ketones >2.00, Anion gap of 21 PLAN: - Insulin gtt at 0.1U/kg/hr - 1/2NS @100cc/hr until glucose <250, then and D5 to 1/2NS - glucose checks q1h for now - Transition to SQ insulin once anion gap closed and normalization of bicarb - Endo c/s in AM Caro Wen PA-C 03/09/2020 3:46 AM Written Assessment: 14,000. Febrile. Elevated procal. ? Developing aspiration PNA PLAN: - UA appears negative for infection - Check blood cx, sputum cx, - CXR - lactic acid WNL - Will start empiric abx- Vanc/Zosyn for now - Fu daily cbc Caro Wen PA-C 03/09/2020 3:48 AM Written Assessment: ?infectous, although possible just inflammatory - dehydration/pain 2/2 ankle fx, metabolic comorbidities PLAN: - PRN tylenol - IVF - Infectious lawson as noted above. Caro Wen PA-C 03/09/2020 3:50 AM Written Assessment: 41-->39-->58. Suspect type II, demand ischemia PLAN: - Trend to ensure coming down Caro Wen PA-C 03/09/2020 3:54 AM Written Assessment: bilateral malleolar fracture PLAN: - C/s to ortho. Recs appreciated - s/p reduction and casting Leland Herrera MD 03/09/2020 10:50 AM Addendum ORTHOPAEDIC SURGERY CONSULT Pt: LISA SHIRLEY Date of Consultation: 03/09/2020 Physician Consulted: Dr. Herrera Reason for Consultation: Left trimalleolar fracture ORTHO STAFF: History and physical examination reviewed. Orthopaedic consultation reviewed. Patient seen and examined. Agree with orthopaedic resident assessment and plan. Recommend operative stabilization left trimalleolar ankle fracture-dislocation, when medically appropriate. Patient answering more questions this morning than reported previously. Reviewed injury basics with her, including future surgical plan for functional roman catholic. Anticipate surgery 03/12/2020 depending on ongoing evaluation and recovery. Leland Herrera MD HPI: 74 year old female presented to [facility] as a transfer from [place] for stroke with orthopaedics being consulted for a left trimalleolar fracture. Patient is delirious at bedside and is not answering questions. She was found down at home. Patient had not been seen since Thursday. PAST MEDICAL HISTORY Diagnosis Date - Anxiety - Chest pain - Chronic pain sensitive to Cymbalta - Degeneration of lumbar intervertebral disc - Depression - Diabetes (HCC) - Diabetic polyneuropathy associated with type 2 diabetes mellitus (HCC) - Disorder of sacrum - Essential hypertension - Fatigue - Generalized anxiety disorder sensi to Cymbalta, etc; PREFERS XANAX only tok ok 09/08 - History of cerebrovascular accident - Hyperlipidemia - Hypertension - IBS (irritable bowel syndrome) - Idiopathic osteoporosis - Insomnia - Low back pain - Lumbar radiculopathy - Major depressive disorder - Morbid obesity (HCC) BMI 47 - Neuropathy - Obstructive sleep apnea syndrome - Osteoporosis - Panic state as acute reaction to stress - Sleep disorder - Stroke (HCC) - 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) - Vitamin B12 deficiency (non anemic) - Vitamin D deficiency PAST SURGICAL HISTORY Procedure Laterality Date - CHOLECYSTECTOMY HX - COLONOSCOPY usually had some polyps 2009 Allergies: Sofia Inhibitors, Actos [Pioglitazone], Buspar [Buspirone], Crestor [Rosuvastatin Calcium], Glimepiride, Glipizide, Lexapro [Escitalopram Oxalate], Meloxicam, Metformin, Nsaids (Non-Steroidal Anti-Inflammatory Drug), Prednisone, and Seroquel [Quetiapine] Current Facility-Administered Medications Medication Dose Route Frequency - fentaNYL 50 mcg/mL 25 mcg injection (SUBLIMAZE) 25 mcg INTRAVENOUS q 2 H PRN - dextrose 5% in NaCl 0.45% iv infusion 100 mL/hr INTRAVENOUS CONTINUOUS - piperacillin-tazobactam iv piggyback 3.375 g in dextrose (iso-osmotic) 50 mL (ZOSYN) 3.375 g INTRAVENOUS q 6 H - vancomycin iv piggyback 1.5 g in D5W 250 mL (VANCOCIN) 1.5 g INTRAVENOUS q 24 H - vancomycin dosing and monitoring per pharmacy OTHER As Directed - miconazole 2 % 1 application topical powder (LOTRIMIN AF, DESENEX) 1 application TOPICAL BID - docusate 100 mg oral liquid (DIOCTO, COLACE) 100 mg ORAL/FEEDING TUBE BID - bisacodyl 10 mg suppository (DULCOLAX) 10 mg RECTAL DAILY PRN - ondansetron (PF) 4 mg injection (ZOFRAN) 4 mg INTRAVENOUS q 4 H PRN - heparin 5,000 Units injection 5,000 Units SUBCUTANEOUS q 8 H - sodium chloride 0.9 % (flush) 3-5 mL (BD POSIFLUSH) 3-5 mL INTRAVENOUS q 12 H - sodium chloride 0.9 % (flush) 10 mL (BD POSIFLUSH) 10 mL INTRAVENOUS q 12 H - sodium chloride 0.9 % (flush) 20 mL (BD POSIFLUSH) 20 mL INTRAVENOUS PRN - famotidine 20 mg injection (PEPCID) 20 mg INTRAVENOUS BID - acetaminophen 650 mg tab(s) (TYLENOL) 650 mg ORAL/FEEDING TUBE q 4 H PRN Or - acetaminophen 650 mg CUP (TYLENOL) 650 mg ORAL/FEEDING TUBE q 4 H PRN Or - acetaminophen 650 mg suppository (TYLENOL) 650 mg RECTAL q 4 H PRN - labetalol 10 mg injection syringe (NORMODYNE) 10 mg INTRAVENOUS q 2 H PRN - insulin regular human 100 Units in NaCl 0.9% 100 mL - ICU NOMOGRAM 0.5 Units/kg/hr INTRAVENOUS CONTINUOUS - dextrose 40 % 15 g 15 g ORAL PRN Or - glucagon 1 mg injection 1 mg INTRAMUSCULAR PRN Or - dextrose 50% in water 25 mL syringe 12.5 g INTRAVENOUS PRN - perflutren lipid microspheres 1.1 mg/mL 1.3 mL injection (DEFINITY) 1.3 mL INTRAVENOUS DIRECTED PRN FAMILY HISTORY Problem Relation Age of Onset - Colon Cancer Father - Cancer Father - other (Lung cancer) Mother - other (Diverticulitis) Brother Negative for family history of bleeding and clotting disorders. Social History Tobacco Use - Smoking status: Never Smoker - Smokeless tobacco: Never Used - Tobacco comment: Never smoked; Tobacco reviewed with patient 12/04/2015 Substance Use Topics - Alcohol use: No Comment: Non-drinker - Drug use: No ROS: 10 pt ROS neg except in HPI O: Vitals: BP (!) 147/49 Pulse 101 Temp (!) 38.2 ?C (100.8 ?F) Resp 19 Ht 167.6 cm (5' 6") Wt 107.2 kg (236 lb 5.3 oz) SpO2 99% BMI 38.15 kg/m? Physical exam: General: Unable to assess A/O- not answering questions Extremity: Left Lower Extremity: No open wound, lacerations or areas of ecchymosis. NTTP over foot, heel, leg, knee, distal thigh. Negative logroll and axial loading. TTP of ankle Unable to assess motor and sensory exam due to mental status DP pulse palpable, foot warm with brisk capillary refill Compartments soft, compressible. Tolerates passive stretch of digits. Labs: BMP: Sodium 134 03/08/2020 Potassium 4.2 03/08/2020 Chloride 94 03/08/2020 CO2 20 03/08/2020 BUN 24 03/08/2020 Creatinine 1.18 03/08/2020 Glucose 398 03/08/2020 CBC: WBC 14.50 03/09/2020 Hemoglobin 12.8 03/09/2020 Hematocrit 39.0 03/09/2020 Platelet Count 249 03/09/2020 COAGS: APTT 23.7 03/08/2020 PT INR 1.1 03/08/2020 SED RATE/CRP: No results found for this basename: wsr:*,crp:* Imaging: -XR of the left ankle prereduction obtained, reviewed and demonstrates a left trimalleolar fracture with a posterior dislocation of the talus XR of the left ankle postreduction obtained, reviewed and demonstrates a left trimalleolar fracture wth improve alignment. Procedure Note: Unable to discuss risks/limitations/benefits/ alternatives with patient due to mental status. It was determined that the risks of keep the ankle dislocated were too high and we proceeded with left ankle reduction.. Timeout performed. Site for left ankle reduction identified, marked and sterilely prepped. 10cc of 1% lidocaine was injected into the ankle joint as a hematoma block with a 22g needle and 30 gauge syringe. After adequate anesthesia, the left ankle was reduced and placed into a Posterior-U splint. Postreduction imaging was obtained. Patient tolerated procedure well without complication. A/P: 74 year old female with left trimalleolar fracture - Medical management per primary - Pain control per primary - Orthopaedic planning TBD - Ice/elevate LLE - NWB LLE - Splint in place, maintain, keep c/d/i - Patient to be discussed with Dr. Herrera with plan adjusted accordingly Akin Rogers MD Orthopaedic Surgery 03/09/2020 3:55 AM Previous Version RT Mae, Tech 03/09/2020 4:59 AM Signed Radiology Service Progress Note PATIENT NAME: Lisa Shirley DATE OF SERVICE: March 09, 2020 TIME: 4:57 AM PATIENT IDENTITY VERIFICATION COMPLETED USING TWO (2) IDENTIFIERS: Name and Date of confirmed by patient verbally and Name and Date of confirmed by identification band. FALL SCREENING: Has the patient had 2 falls in the last year or 1 fall with injury or currently using an Ambulatory Assistive Device (Walker, Cane, Wheelchair, Crutches, etc.)? Inpatient: Screened on floor PATIENT GENDER DATA: Female. status: : No status: N/A PATIENT RELEVANT IMPLANT DATA REVIEWED: Not Applicable RADIOLOGY DEPARTMENT: General X-ray: Exam(s) Completed: Lower Extremity X-Ray(s): Ankle, Left: PERIPHERAL IV DATA: Not applicable SIGNED BY: Stanislav Correa RT March 09, 2020 4:57 AM Chalino Gupta RT, Tech 03/09/2020 6:38 AM Signed Called for MRI screening form. Tahmina Hernandez PT 03/09/2020 9:05 AM Signed PHYSICAL THERAPY MISSED VISIT SERVICE DATE: 03/09/2020 SERVICE TIME: 903 to 903 ROOM: [place] [address] Attempted Evaluation. Patient not seen due to Illness. Hold today per JONNY Sandhu. Will continue to follow patient as able. SIGNATURE: Tahmina Hernandez PT PATIENT NAME: Lisa Shirley DATE: March 09, 2020 TIME: 9:04 AM Sarita Escobedo RN, RN 03/09/2020 9:10 AM Signed Nursing Progress: Topic: RESTRAINT NON-VIOLENT PATIENT NAME: Lisa Shirley PATIENT LOCATION: [place] [address]* The patient demonstrates Confusion, Attempting to Remove Medical Devices Vital to Medical Stability, Lack of Understanding/Ability to Comply with Safety Directions as evidenced by the following behaviors pt confused, pulling at central line, neuro deficit in which she does not retain safety information which pose an imminent danger to self or others. The following interventions were attempted but were not effective in protecting the patient's safety: Modify Environment, Modify Equipment, Frequent Observation Next, a comprehensive assessment was performed and warranted placing the patient in Soft Bilateral Wrists, the least restrictive restraint needed to protect the patient's safety. Ongoing safety assessments and evaluation for earliest removal of restraints will be performed. DATE: March 09, 2020 TIME: 9:10 AM JONNY Meza, Pharmacist 03/09/2020 10:28 AM Signed PHARMACY VANCOMYCIN DOSING NOTE Patient Name: Lisa Shirley Admission Date: 03/08/2020 Date of Consult: 03/09/2020 Time of Consult: 10:28 AM Indication: Pneumonia Goal Range: 10-20 mcg/mL RECOMMENDATIONS/PLAN: Pharmacy consulted for vancomycin dosing for Lisa Shirley, a 74 year old, female who is being treated with vancomycin for pneumonia 1. The primary service has discontinued vancomycin therapy. Pharmacy vancomycin dosing service will sign off. Thank you for allowing us to participate in this patient's care. Please contact pharmacy if questions. Quynh Robertson, Pharmacist Ann Friend RD, RD 03/09/2020 11:39 AM Signed NUTRITION THERAPY INITIAL ASSESSMENT SERVICE DATE: 03/09/2020 SERVICE TIME: 11:31 AM Nutrition Assessment: Recommended Malnutrition Diagnosis: No Malnutrition Identified Nutrition Diagnosis: Problem: Suboptimal oral intake Related to: Acute illness As evidenced by: Medical condition (stroke) Estimated kilocalorie needs: 1480 - 1780 Calorie Calculation Method: 25-30 kcals/kg Estimated protein needs (grams): 71 - 90 Grams protein determined by: 1.2-1.5 g/kg;[place] Body Weight Care Plan: Change diet to Per ST evaluation (pending) If patient is not safe to swallow recommend the following TF: Enteral Nutrition Tube Feeding Formula Type: Isosource 1.5 Goal Rate (mL/hr x hours): 42 X 24 Water Flush Volume (mL x frequency: 30 X 6) Modular: Beneprotein 1 per day added to TF Recommended Enteral Access: Small bore feeding tube TF at goal of 42 ml/hr will provide ~ 1500 kcals, 68 g protein, 770 ml free water. Beneprotein will add 6 g protein per day. Monitor and Evaluation: Meet greater than 75% of estimated needs;Monitor labs, I/Os, vital signs, weight;Monitor tolerance to tube feeding Discharge Recommendations: Diet Diet: TBD HPI: Lisa Shirley was found on the floor at home after a well check by police. She was down for an unknown amount of time. 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 She was in DKA on admit, was tachycardic and febrile. She has a hx of DM2, HLD, HTN, MDD, anxiety, CKD 3 and GERD. Intake History: Current Intake: NPO over: 1 day Current Diet: DIET NPO Anthropometrics: Height: 167.6 cm (5' 6") Weight: 107.7 kg (237 lb 7 oz) Dosing Weight: 59.3 kg (130 lb 11.7 oz) Usual Weight: 96.3 kg (212 lb 4.9 oz) Body mass index is 38.32 kg/m?. Obese Weight change percentage over time: + wt gain Physical Exam: Subcutaneous fat loss: No fat loss Muscle loss: No muscle loss Potential micronutrient deficiency: Nails;Teeth Edema/Ascites: Upper extremities Upper Extermity: Severe 3 - 4 GI Symptoms: Chewing problems;Swallowing problems Functional Status: Not related to malnutrition status Potential Signs of Inflammation: Hyperglycemia;Imaging studies;Microbiologic cultures;Critically ill MNT Billing Type: Initial Assess/15 min 2 units SIGNATURE: Ann Friend RD PATIENT NAME: Lisa Shirley DATE: March 09, 2020 TIME: 11:31 AM PAGER: [phone] Quynh Robertson, Pharmacist 03/09/2020 12:55 PM Signed MEDICATION HISTORY AND MEDICATION RECONCILIATION Patient Name:Geoffrey Shirley : 1945 Source of history:Pharmacy records: [facility]; [facility] Pharmacy ([phone]) Medication Nonadherence Identified: No barriers noted The above information represents the best possible medication history: Yes ; unable to verify with patient at this time, no family identified Reconciliation completed? Yes All SR. PAYROLL MANAGER medications addressed by LIP Additional comments: [id number] Medication List Adjustments: Medication Regimen Changes: ? Added SIG to probiotic of once daily ? Added SIG to miralax Medications Added: ? None Medications Removed: ? Duplicate xanax Short-Term Medications: None Further Clarification Required: Unable to verify with patient at this time, per RN no family available at this time Patient is a 30 day readmission: No Patient Interested in Bedside Delivery: No Time Spent Reviewing Patient's Medications: 30 minutes Allergies: ALLERGIES Allergen Reactions - Sofia Inhibitors Contraindication-Medical Surgical Chronic kidney disease - Actos [Pioglitazone] Intolerance - Buspar [Buspirone] Intolerance rem behavior disorder - Crestor [Rosuvastat* Unknown Sensitivity - Glimepiride Intolerance - Glipizide Intolerance - Lexapro [Escitalopr* Mental Status Change - Meloxicam Unknown - Metformin Contraindication-Medical Surgical Chronic kidney disease - Nsaids (Non-Steroid* Contraindication-Medical Surgical Chronic kidney disease - Prednisone Unknown Sensitivity - Seroquel [Quetiapin* Intolerance Preferred Pharmacy: [facility] Current SR. PAYROLL MANAGER Medications: Prior to Admission medications as of 03/09/20 0923 Medication Sig Last Dose Taking zolpidem (AMBIEN) 5 mg tablet Take 1 tablet by mouth at bedtime as needed for up to 90 days. Yes oxyCODONE-acetaminophen (PERCOCET) 5-325 mg tablet Take 1 tablet by mouth every 8 hours as needed for Pain for up to 30 days. Yes diltiazem CD (CARDIZEM CD, CARTIA XT) 240 mg 24 hr capsule TAKE 1 CAPSULE BY MOUTH EVERY DAY Yes ALPRAZolam (XANAX) 0.5 mg tablet Take 1 tablet by mouth three times daily as needed for up to 90 days. Yes glipiZIDE (GLUCOTROL) 5 mg tablet Take 1 tablet by mouth twice daily before meals. Yes sitaGLIPtin (JANUVIA) 100 mg tablet Take 1 tablet by mouth once daily. Yes polyethylene glycol 3350 (MIRALAX ORAL) Take 1 Packet by mouth once daily. Yes nitroglycerin sublingual (NITROQUICK) 0.4 mg SL tablet Dissolve 1 tablet under the tongue every 5 minutes as needed. Yes calcium carbonate (CALCIUM 600) 600 mg calcium (1,500 mg) tab Take 600 mg by mouth three times daily. Yes BIFIDOBACTERIUM INFANTIS (ALIGN ORAL) Take 1 tablet by mouth once daily. Yes Quynh Robertson, Pharmacist March 09, 2020 12:50 PM Osmar Calloway, CCC-FLOW MANAGER, CCC/FLOW MANAGER 03/09/2020 2:05 PM Signed Speech Therapy Speech Evaluation Clinical Swallow Evaluation SERVICE DATE: 03/09/2020 SERVICE TIME: 1315 to 1345 ROOM: [place] [address] IMPRESSION: Patient demonstrates oropharyngeal dysphagia which is negatively impacting his/her ability to effectively maintain adequate nutrition and hydration and/or airway safety. Patient demonstrates dysarthria and left neglect which is negatively impacting the patient's ability to effectively communicate basic ADL medical and social wants/needs with familiar and unfamiliar communication partners. Diet Recommendations: NPO with alternative means of nutrition/hydration/medicat ion Consider corpack (small bore feeding tube) Swallowing Precautions Recommendations: Rigid Oral Hygiene Nursing Recommendations: See swallow guide posted in patients room;Reinforce use of swallowing strategies;Reinforce use of communication strategies: Encourage left sided awareness Recommended Discharge Disposition: Acute Rehab Justification for Recommended Discharge Disposition: Patient can tolerate 3 hours of therapy per day;Willing to participate;Medically complex;Good sitting tolerance;Motivated Reason for Hospital Admission: Stroke Rehabilitation Precautions: Cognitive Linguistics Deficits;Aspiration Precautions;Dysphagia;Commu nication Deficits;NPO;Diabetic;Visua l Deficits NPO Precautions: (Asked for corpack) Reason for Speech Therapy Consult: Stroke: assess swallowing and speech/cognition Relevant Past Medical History: Anxiety, Depression, DM, Fatigue, HTN, Morbid obesity, Panic state as acute reaction to stress, sleep disorder, Stroke, DM Continue skilled FLOW MANAGER services due to : Dysphagia, Communication difficulties, Safety concerns, Education / training needs Speech Therapy Problem List: Dysphagia;Cognitive-Linguis tic Impairment;Dysarthria Patient Report: I've been better. Current Status Oral Hygiene: Clear, dry oral cavity Dentition: Retains Natural Dentition Current Feeding Method: IV Current Diet Textures: NPO Current Level Of Communication: Verbal(Dysarthric) Current Management Of Secretions: Requires Cueing To Manage Oral Motor Exam: Within Functional Limits Except Facial Symmetry Impaired: Right Labial ROM Impaired: Right Labial Strength Impaired: Right Lingual ROM Impaired: Bilateral Lingual Strength Impaired: Bilateral Speech/Voice/Language Speech Production: Within Functional Limits Except Dysarthria: Blended Word Boundaries, Imprecise Articulation, Decreased Rate Of Speech, Decreased Intelligibility Voice Assessment: No Expressive and Receptive Language: Within Functional Limits Fluency: No - Patient in bed upon arrival, alert and able to participate in therapy - Assessed speech, language, and cognitive skills: - Cognition: Severe left neglect - Reading/writing: TBA - Insight: Fair - Pragmatics: WFL - Patient presents with deficits in the following areas: speech and cognition - ST to follow to improve dysarthria and left neglect Swallow Assessment Position Of Patient During Assessment: Upright In Bed Consistencies Tested: Thin Liquids IDDSI Level 0, Mildly Thick Liquids IDDSI Level 2 (Cross Anchor Thick), Puree Compensatory Strategies Utilized During Assessment: 1:1 Supervision, Alert (patient should be fully alert for P.O. intake), Feed / Eat at a slow rate, Sit upright 90 degrees for all PO, Small Bite/Sip Clinical Swallow Assessment Oral Pharyngeal Swallow Assessment: Within Functional Limits Except Preparatory / Oral Phase: Within Functional Limits Except Oral Containment: Moderately Impaired Bolus Manipulation: Moderately Impaired A-P Transit: Moderately Impaired Pharyngeal Phase: Within Functional Limits Except Timing of Response: Moderately Impaired Range of Hyoid/Laryngeal Elevation: Moderately Impaired Reflexive Throat Clear and Cough after Swallowing: Yes, Post-Swallow Multiple Swallows: No Assessed swallowing Mouth is dry but clear Trialed thin via spoon, cup, and straw: +delayed cough (weak, unable to fully cough at times) Trialed mildly thick (nectar thick) liquids via spoon and cup: +delayed cough (weak, unable to fully cough at times) Trialed puree: +significant delay to swallow Weak hyo-laryngeal movement Patient with signs or symptoms of aspiration Recommend NPO status Speech Therapy to follow for dysphagia management Functional Communication Measure (FCM) Current FCM Level: Swallowing Level;Motor Speech;Attention FCM Swallowing Level: 1 FCM Attention Level: 1 FCM Motor Speech Level: 3 Patient /Caregiver Goals: Eat/Drink Without Restrictions;Improve Cognition;Improve Communication Goals for Plan of Care: SWALLOWING: Patient / Caregiver will demonstrate knowledge of taught compensatory strategies and dietary consistency recommendations to optimize functional swallow function without overt clinical signs and symptoms of aspiration or dysphagia Swallowing Goals: Patient will participate in swallow reassessment to determine safety of diet vs instrumentation vs alternate means of hydration/nutrition. Therapeutic Tasks: Lingual/Pharyngeal/Laryngea l strengthening tasks to improve swallowing function COGNITION: Patient will demonstrate knowledge of taught compensatory strategies for functional cognitive-linguistic skills Cognitive Goals: Patient will improve visual left scanning given maximal cues to 25% accuracy so that the patient may demonstrate general awareness of surroundings for personal safety. SPEECH / LANGUAGE: Patient will demonstrate knowledge of taught compensatory strategies for functional communication Speech Goals: Patient will improve speech intelligibility at the word level to 60% intelligibility given maximal cues so that the patient can functionally communicate with caregivers. Patient will demonstrate adequate return of knowledge of all compensatory strategies/instruction to effectively assist the patient in immediate speech production skills. Speech Rehab Potential: Good Patient will be discontinued from speech therapy when no further skilled needs are identified in this setting. PLAN: Treatment Frequency (times per week): 4 Current admission Treatment Interventions: Dysphagia Management;Dysarthria Management;Cognitive-Lingui stic Management Plan for next visit: Swallowing Strategies, Dysphagia Management, Dietary Consistencies, Motor Speech Skills(Improved left sided awareness) Plan of Care Developed with: Patient Results and Recommendations Discussed With: Patient;Nurse TREATMENT INTERVENTIONS: Therapy Diagnosis: Other speech and language deficits following unspecified cerebrovascular disease;Dysarthria following cerebral infarction;Dysphagia following cerebral infarction Interventions Provided: Speech Language Eval (43599);Clinical Swallow Evaluation (86639) $ Speech Language Eval (44003) Billed Units: 1 unit $ Clinical Swallow Evaluation (52922) Billed Units: 1 unit Total Treatment Time (minutes): 30 Home Environment Prior Functional Level: Within Functional Limits Assistance Available: multimedia services coordinator Prior Swallowing Function/Diet Textures: Regular Consistency;Thin Liquids IDDSI Level 0 Please see discipline specific clinical documentation flowsheet for complete details for this therapy evaluation/treatment. SIGNATURE: Osmar Calloway CCC-FLOW MANAGER PATIENT NAME: Lisa Shirley DATE: March 09, 2020 TIME: 2:00 PM RT Robert, Tech 03/09/2020 2:28 PM Signed Radiology Service Progress Note PATIENT NAME: Lisa Shirley DATE OF SERVICE: March 09, 2020 TIME: 2:28 PM PATIENT IDENTITY VERIFICATION COMPLETED USING TWO (2) IDENTIFIERS: Name and Date of confirmed by patient verbally and Name and Date of confirmed by identification band. FALL SCREENING: Has the patient had 2 falls in the last year or 1 fall with injury or currently using an Ambulatory Assistive Device (Walker, Cane, Wheelchair, Crutches, etc.)? Inpatient: Screened on floor PATIENT GENDER DATA: Female. status: : No status: N/A PATIENT RELEVANT IMPLANT DATA REVIEWED: Not Applicable RADIOLOGY DEPARTMENT: General X-ray: Exam(s) Completed: Abdomen X-Ray Abdomen PERIPHERAL IV DATA: Not applicable SIGNED BY: RT Robert March 09, 2020 2:28 PM Shalom Lira DO, DO 03/09/2020 2:48 PM Written 03/09: Presented from OSH with concern for acute R MCA stroke. Found down at home, elevated CK, patient was in DKA, No LVO, patient admitted to [facility] NICU. Patient also had left trimal fracture, was reduced by ortho team, splinted. Today, patient had speech consult, required corpak placement, transitioned to subcutaneous insulin from insulin drop, SREEDHAR watkins and sonal Lira DO, DO 03/09/2020 2:52 PM Written NEURO ICU PROGRESS NOTE DATE OF ADMISSION: 03/08/2020 Subjective Hospital Course: 03/09: Presented from OSH with concern for acute R MCA stroke. Found down at home, elevated CK, patient was in DKA, No LVO, patient admitted to [facility] NICU. Patient also had left trimal fracture, was reduced by ortho team, splinted. Today, patient had speech consult, required corpak placement, transitioned to subcutaneous insulin from insulin drop, DC vanc and zosyn Events Since Last Note: Transitioned to subcutaneous insulin, corpak placed, tube feeds started Objective BP 169/85 Pulse 95 Temp 37.3 ?C (99.1 ?F) Resp 19 Ht 167.6 cm (5' 6") Wt 107.7 kg (237 lb 7 oz) SpO2 97% BMI 38.32 kg/m? Weight change: GCS: Eyes: 4. Spontaneous Verbal: 3: Inappropriate words Motor: 6: Obeys Motor commands Total: 13 CV: Sinus tachycardia Pulm: CTA bilaterally, even and unlabored on RA. GI/: Abdomen soft, non tender, non distended Skin/Extremities: Edema- No Peripheral pulses- Present all extremities Wounds/Drsgs- Yes Left ankle wrapped/dressed (fx) ? NEUROLOGICAL: MOTOR STRENGTH: Minimal movement 1/5 to LUE/LLE, 4/5 RUE, 3/5 RLE SENSATION: Diminished light touch on the L Diagnostic tests reviewed for today's visit: Most recent labs and imaging results. Results for LISA SHIRLEY ( ) as of 03/09/2020 14:51 Ref. Range 03/09/2020 10:05 Sodium Latest Ref Range: 136 - 144 mmol/L 138 Potassium Latest Ref Range: 3.7 - 5.1 mmol/L 3.6 (L) Chloride Latest Ref Range: 97 - 105 mmol/L 104 CO2 Latest Ref Range: 22 - 30 mmol/L 23 BUN Latest Ref Range: 7 - 21 mg/dL 24 (H) Creatinine Latest Ref Range: 0.58 - 0.96 mg/dL 1.10 (H) Glucose Latest Ref Range: 74 - 99 mg/dL 175 (H) Calcium Latest Ref Range: 8.5 - 10.2 mg/dL 8.9 Anion Gap Latest Ref Range: 9 - 18 mmol/L 11 CK Latest Ref Range: 42 - 196 U/L 1,157 (H) eGFR- Unknown 59 eGFR-All Other Races Unknown 49 Results for LISA SHIRLEY ( ) as of 03/09/2020 14:51 Ref. Range 03/09/2020 10:23 LV Ejection Fraction Latest Units: % 55 Lines, Drains, and Airways Line Central Line Triple Lumen 03/08/20 2200 Right Neck less than 1 day Peripheral 03/09/20 1152 Short Left Forearm 22 Gauge less than 1 day Drain GI Feed 03/09/20 1408 Gastric Right Naris 12 Fr less than 1 day Indwelling Urinary Catheter 03/09/20 0045 Admission to Hospital [facility] less than 1 day ICU Checklist Last Documented/Reviewed time: 03/09/2020 8:04 AM ICU Delirium Status: CAM Negative - no action required Restraint Status: Present, will maintain Restraint Maintain Reason: Maintain safety of patient ICU Mobility-Pt Has Been Out of Bed: No - Specify, PT Consult - Specify Line Status: Central multi-lumen catheter Central Line Status: Reason to maintain Central Line Reason to Maintain: Poor access Ventilator: None Cortes Status: Present, will maintain Cortes Status Details: Accurate measurement of urine output GI/Stress Ulcer Prophylaxis: H2 blockers Nutrition is at Goal: NPO VTE Prophylaxis: Chemoprophylaxis: Heparin SQ Pressure Injury Status: None ICU plan of care visit at bedside in last 24 hours: Yes, ICU Team only ICU Disposition- Is Patient Clinically Ready to Transfer to [facility] or SDU?: No Discharge Planning: To be determined PERSONAL INVOLVEMENT IN CARE: Reviewing initiation, responses and adjustments to therapies, coordination of care, and updating family with Staff Physician, Dr. Schwab. Shalom Lira DO, DO 03/09/2020 2:52 PM Written Assessment: most recent HbA1c of 12%. Currently in DKA PLAN: - Holding home PO meds - Insulin gtt with transitioned to SQ insulin regimen when better control of glucose - Check HbA1c Shalom Lira DO, DO 03/09/2020 2:53 PM Written Assessment: Hypertensive w/ SBP >200s at OSH. PLAN: Allow for permissive HTN for now. Although likely already out of stroke onset >48hrs. - Gradual reduction to normotensive goal - holding home meds for now - PRN antihypertensives Shalom Lira DO, DO 03/09/2020 2:53 PM Written Assessment: Initially passed bedside swallow eval but then pocketed PO meds. PLAN: - Speech eval -Corpak placed -Tube feeds Shalom Lira DO, DO 03/09/2020 2:53 PM Written Assessment: Baseline Cr. >1.2 PLAN: - Monitor daily labs - Avoid nephrotoxic agents Shalom Lira DO, DO 03/09/2020 2:54 PM Written Assessment: Acute R MCA stroke Evolving R caudate, insular, and frontal infarcts on presenting non contrast CTH CTAs nondiagnostic 2/2 contrast extravasation 2/2 loss of access/blown IV >24-48 hours from LKW, therefore not candidate for tPA and not candidate for intervention given already evident stroke on CT PLAN: - Neuro checks - Antiplatelet -Statin 80 mg - DVT chemoppx - Permissive HTN for now. - Monitor tele - Daily labs - Echocardiogram - MRI vs Repeat CTH tomorrow - PT/OT/ST - Stroke neuro c/s Shalom Lira DO, DO 03/09/2020 2:54 PM Written Assessment: S/p fall at home w/ prolonged downtime. CK 1,111 at OSH, Troponin elevation PLAN: - IVF resuscitation - Monitor renal function - Fu trop and CK to ensure trending down Shalom Lira DO, DO 03/09/2020 2:55 PM Written Assessment: Glucose >500, ketones >2.00, Anion gap of 21 PLAN: - Insulin gtt transitioned to subcutaneous -Corpak placed on tube feeds - Endo c/s in AM Shalom Lira DO, DO 03/09/2020 2:55 PM Written Assessment: bilateral malleolar fracture PLAN: - s/p reduction and casting -Ortho following Shalom Lira DO, DO 03/09/2020 2:56 PM Written Assessment: 41-->39-->58. Suspect type II, demand ischemia PLAN: - Trend to ensure coming down Shalom Lira DO, DO 03/09/2020 2:59 PM Signed SERVICE DATE: 03/09/2020 SERVICE TIME: 2:59 PM NEURO ICU PROGRESS NOTE DATE OF ADMISSION: 03/08/2020 Subjective Hospital Course: 03/09: Presented from OSH with concern for acute R MCA stroke. Found down at home, elevated CK, patient was in DKA, No LVO, patient admitted to [facility] NICU. Patient also had left trimal fracture, was reduced by ortho team, splinted. Today, patient had speech consult, required corpak placement, transitioned to subcutaneous insulin from insulin drop, DC vanc and zosyn Events Since Last Note: Transitioned to subcutaneous insulin, corpak placed, tube feeds started Objective BP 169/85 Pulse 95 Temp 37.3 ?C (99.1 ?F) Resp 19 Ht 167.6 cm (5' 6") Wt 107.7 kg (237 lb 7 oz) SpO2 97% BMI 38.32 kg/m? Weight change: GCS: Eyes: 4. Spontaneous Verbal: 3: Inappropriate words Motor: 6: Obeys Motor commands Total: 13 CV: Sinus tachycardia Pulm: CTA bilaterally, even and unlabored on RA. GI/: Abdomen soft, non tender, non distended Skin/Extremities: Edema- No Peripheral pulses- Present all extremities Wounds/Drsgs- Yes Left ankle wrapped/dressed (fx) ? NEUROLOGICAL: MOTOR STRENGTH: Minimal movement 1/5 to LUE/LLE, 4/5 RUE, 3/5 RLE SENSATION: Diminished light touch on the L Diagnostic tests reviewed for today's visit: Most recent labs and imaging results. Results for LISA SHIRLEY ( ) as of 03/09/2020 14:51 Ref. Range 03/09/2020 10:05 Sodium Latest Ref Range: 136 - 144 mmol/L 138 Potassium Latest Ref Range: 3.7 - 5.1 mmol/L 3.6 (L) Chloride Latest Ref Range: 97 - 105 mmol/L 104 CO2 Latest Ref Range: 22 - 30 mmol/L 23 BUN Latest Ref Range: 7 - 21 mg/dL 24 (H) Creatinine Latest Ref Range: 0.58 - 0.96 mg/dL 1.10 (H) Glucose Latest Ref Range: 74 - 99 mg/dL 175 (H) Calcium Latest Ref Range: 8.5 - 10.2 mg/dL 8.9 Anion Gap Latest Ref Range: 9 - 18 mmol/L 11 CK Latest Ref Range: 42 - 196 U/L 1,157 (H) eGFR- Unknown 59 eGFR-All Other Races Unknown 49 Results for LISA SHIRLEY ( ) as of 03/09/2020 14:51 Ref. Range 03/09/2020 10:23 LV Ejection Fraction Latest Units: % 55 Lines, Drains, and Airways Line Central Line Triple Lumen 03/08/20 2200 Right Neck less than 1 day Peripheral 03/09/20 1152 Short Left Forearm 22 Gauge less than 1 day Drain GI Feed 03/09/20 1408 Gastric Right Naris 12 Fr less than 1 day Indwelling Urinary Catheter 03/09/20 0045 Admission to Hospital [facility] less than 1 day ICU Checklist Last Documented/Reviewed time: 03/09/2020 8:04 AM ICU Delirium Status: CAM Negative - no action required Restraint Status: Present, will maintain Restraint Maintain Reason: Maintain safety of patient ICU Mobility-Pt Has Been Out of Bed: No - Specify, PT Consult - Specify Line Status: Central multi-lumen catheter Central Line Status: Reason to maintain Central Line Reason to Maintain: Poor access Ventilator: None Cortes Status: Present, will maintain Cortes Status Details: Accurate measurement of urine output GI/Stress Ulcer Prophylaxis: H2 blockers Nutrition is at Goal: NPO VTE Prophylaxis: Chemoprophylaxis: Heparin SQ Pressure Injury Status: None ICU plan of care visit at bedside in last 24 hours: Yes, ICU Team only ICU Disposition- Is Patient Clinically Ready to Transfer to [facility] or SDU?: No Discharge Planning: To be determined PERSONAL INVOLVEMENT IN CARE: Reviewing initiation, responses and adjustments to therapies, coordination of care, and updating family with Staff Physician, Dr. Shcwab. Assessment AND Plan Active Hospital Problems as of 03/09/2020 Noted - Resolved Hospital Acute on chronic renal insufficiency 03/09/2020 - Present Current Assessment AND Plan Assessment: Mild JIHAN in setting of rhabdo/mild dehydration, DKA PLAN: - IVF resuscitation - Monitor daily labs Acute right MCA stroke (HCC) 03/08/2020 - Present Current Assessment AND Plan Assessment: Acute R MCA stroke Evolving R caudate, insular, and frontal infarcts on presenting non contrast CTH CTAs nondiagnostic 2/2 contrast extravasation 2/2 loss of access/blown IV >24-48 hours from LKW, therefore not candidate for tPA and not candidate for intervention given already evident stroke on CT PLAN: - Neuro checks - Antiplatelet -Statin 80 mg - DVT chemoppx - Permissive HTN for now. - Monitor tele - Daily labs - Echocardiogram - MRI vs Repeat CTH tomorrow - PT/OT/ST - Stroke neuro c/s Chronic kidney disease, stage 3, mod decreased GFR 08/03/2018 - Present Current Assessment AND Plan Assessment: Baseline Cr. >1.2 PLAN: - Monitor daily labs - Avoid nephrotoxic agents Closed left ankle fracture 03/09/2020 - Present Current Assessment AND Plan Assessment: bilateral malleolar fracture PLAN: - s/p reduction and casting -Ortho following Diabetic ketoacidosis without coma associated with type 2 diabetes mellitus (HCC) 03/09/2020 - Present Current Assessment AND Plan Assessment: Glucose >500, ketones >2.00, Anion gap of 21 PLAN: - Insulin gtt transitioned to subcutaneous -Corpak placed on tube feeds - Endo c/s in AM Dysphagia 11/05/2016 - Present Current Assessment AND Plan Assessment: Initially passed bedside swallow eval but then pocketed PO meds. PLAN: - Speech eval -Corpak placed -Tube feeds Elevated troponin 03/09/2020 - Present Current Assessment AND Plan Assessment: 41-->39-->58. Suspect type II, demand ischemia PLAN: - Trend to ensure coming down Essential hypertension 06/04/2016 - Present Current Assessment AND Plan Assessment: Hypertensive w/ SBP >200s at OSH. PLAN: Allow for permissive HTN for now. Although likely already out of stroke onset >48hrs. - Gradual reduction to normotensive goal - holding home meds for now - PRN antihypertensives Fall 03/09/2020 - Present Current Assessment AND Plan Assessment: Unwitnessed fall at home in setting of stroke and L sided weakness Fever 03/09/2020 - Present Current Assessment AND Plan Assessment: ?infectous, although possible just inflammatory - dehydration/pain 2/2 ankle fx, metabolic comorbidities PLAN: - PRN tylenol - IVF - Infectious lawson as noted above. Leukocytosis 03/09/2020 - Present Current Assessment AND Plan Assessment: 14,000. Febrile. Elevated procal. ? Developing aspiration PNA PLAN: - UA appears negative for infection - Check blood cx, sputum cx, - CXR - lactic acid WNL - Will start empiric abx- Vanc/Zosyn for now - Fu daily cbc Rhabdomyolysis 03/09/2020 - Present Current Assessment AND Plan Assessment: S/p fall at home w/ prolonged downtime. CK 1,111 at OSH, Troponin elevation PLAN: - IVF resuscitation - Monitor renal function - Fu trop and CK to ensure trending down Sinus tachycardia 03/09/2020 - Present Current Assessment AND Plan Assessment: 2/2 acute co morbidities - rhabdo, JIHAN, dehydration, DKA PLAN: - IVF resuscitation - Check EKG Type 2 diabetes mellitus with diabetic neuropathy, without long-term current use of insulin ([facility]) 06/04/2016 - Present Current Assessment AND Plan Assessment: most recent HbA1c of 12%. Currently in DKA PLAN: - Holding home PO meds - Insulin gtt with transitioned to SQ insulin regimen when better control of glucose - Check HbA1c Medication and Non-Pharmacologic VTE Prophylaxis/Anticoagulants Anticoagulant AND Antiplatelet Medications (From admission, onward) Start Dose Route Frequency Ordered Stop 03/09/20 1500 aspirin 81 mg chewable tab(s) 81 mg PO/FT DAILY 03/09/20 1436 -- 03/08/20 2230 heparin 5,000 Units injection (Medical Risk Categories) 5,000 Units SUBCUTANEOUS EVERY 8 HOURS 03/08/20 2220 -- 03/09/20 0600 activity - mobilize patient (ak,me) 03/08/20 2215 pneumatic compression stockings (ak,me) VTE Prophylaxis: VTE prophylaxis appropriate Plan of care discussed with: Provider, RN, Patient SIGNATURE: Shalom Lira DO PATIENT NAME: Lisa Shirley DATE: March 09, 2020 TIME: 2:59 PM DANUTA PULIDO PA-C 03/09/2020 6:51 PM Signed Asked to evaluate pt by sarita BARRAZA. Concern for pupil changes and left side becoming weaker. upon exam pt denies fever but she feels cold and nauseous. Pupillometer checked with pupils BL 4 mm. Able to hold LUE against gravity. She is not wanting to move LE BL No CT at this time. Cont exam and no have pupilometer if needed. Treated with zofran x 1 No further orders at this time. DANUTA PULIDO PA-C March 09, 2020 6:51 PM [id number] Bobbi Landeros RN, RN 03/09/2020 8:02 PM Signed Nursing Progress: Topic: RESTRAINT NON-VIOLENT PATIENT NAME: Lisa Shirley PATIENT LOCATION: [place] [address]/[place] [id number]* The patient demonstrates Attempting to Remove Medical Devices Vital to Medical Stability, Confusion, Lack of Understanding/Ability to Comply with Safety Directions as evidenced by the following behaviors OOB, pull corpak, cortes which pose an imminent danger to self or others. The following interventions were attempted but were not effective in protecting the patient's safety: Alarms, Bed in Low/Locked Position, Call Light Within Reach, Medications Reviewed, Modify Environment, Modify Equipment Next, a comprehensive assessment was performed and warranted placing the patient in Soft Bilateral Wrists, the least restrictive restraint needed to protect the patient's safety. Ongoing safety assessments and evaluation for earliest removal of restraints will be performed. DATE: March 09, 2020 TIME: 8:02 PM JONNY George RT, Tech 03/09/2020 9:08 PM Signed Radiology Service Progress Note PATIENT NAME: Lisa Shirley DATE OF SERVICE: March 09, 2020 TIME: 9:07 PM PATIENT IDENTITY VERIFICATION COMPLETED USING TWO (2) IDENTIFIERS: Name and Date of confirmed by identification band and Name and Date of obtained from a relative, guardian or prior caregiver. FALL SCREENING: Has the patient had 2 falls in the last year or 1 fall with injury or currently using an Ambulatory Assistive Device (Walker, Cane, Wheelchair, Crutches, etc.)? Inpatient: Screened on floor PATIENT GENDER DATA: Female. status: : No status: NO. PATIENT RELEVANT IMPLANT DATA REVIEWED: Yes RADIOLOGY DEPARTMENT: MR; Exam(s) Completed: Head: Routine Brain PERIPHERAL IV DATA: Inpatient: see LDA documentation SIGNED BY: LIBIA JUAREZ March 09, 2020 9:07 PM Ortega Seay MD 03/12/2020 10:37 AM Signed [facility] - Consultation PATIENT NAME: LISA SHIRLEY [facility]: [id number] DATE OF : 1945 SEX/AGE: F/74 PATIENT TYPE: I HOSP [facility] [place]: [facility] LOCATION: [facility] DATE OF SERVICE: 03/10/2020 TIME OF SERVICE: 10:10 AM REFERRING PHYSICIAN: ASHLEIGH THURSTON REASON FOR CONSULTATION: Fever, leukocytosis, COVID-19 infection, antibiotic management. HISTORY OF PRESENT ILLNESS: This patient is a 74-year-old woman with multiple medical problems including diabetes mellitus type 2, obesity, irritable bowel syndrome, previous stroke. She is confused and the history is obtained from reviewing the chart. She apparently presented to [facility] with an acute right MCA stroke. She was found down at home and police did a welfare check and found her down on the ground at home. She is noted to have left ankle bruising and swelling. In the ER at [facility], she had a CT of the head done that showed the MCA stroke. COVID testing was positive. In the ER, she was febrile and tachycardic. They repeated her COVID test for unclear reasons. The repeat COVID test was negative despite the first one being positive. The first COVID test that was positive was done on 03/08 at 2:53 p.m. and the second COVID test was done on 03/08 at 6:02 p.m. and the second one was negative. She was transferred to the Neuro ICU at [facility]. Her initial white blood cell count was noted to be 13.0 and it decreased today to 10.6. The Orthopedic Surgery service was consulted for a left trimalleolar fracture. Plan to take her to the operating room on Thursday. She is being transferred now from the ICU to the regular floor. PAST MEDICAL HISTORY: Diabetes mellitus, obesity, stroke, anxiety, diabetic neuropathy, hypertension, hyperlipidemia, irritable bowel syndrome, depression, sleep apnea, stroke, vitamin D deficiency. PAST SURGICAL HISTORY: Cholecystectomy. ALLERGIES: SOFIA inhibitors, Crestor, meloxicam, metformin, NSAIDs, prednisone, Actos, BuSpar, glipizide, Lexapro, Seroquel. SOCIAL HISTORY: The patient lives alone at home. She does not smoke, drink alcohol or use drugs. FAMILY HISTORY: She has a son who is alive and healthy. She denied any one in the family with clotting disorders. REVIEW OF SYSTEMS: Very limited because of her mental status. She denied headaches. She denied sore throat. She denied chest pain. She denied shortness of breath. She denied abdominal pain. She denied nausea or vomiting. She denied any urinary symptoms. The rest review of systems was limited and negative. PHYSICAL EXAMINATION: VITAL SIGNS: T-current 36.8, pulse 97, respiratory rate 18, blood pressure 158/78. GENERAL APPEARANCE: This is a well-developed, elderly woman, lying in bed, in no distress. HEENT: Normocephalic, atraumatic. Anicteric sclerae. The oral mucosa is moist. There is no thrush. She has an NG tube in place. NECK: Supple. LUNGS: Clear to auscultation bilaterally. I do not hear any wheezes, rales, rhonchi. CARDIOVASCULAR: Regular rate and rhythm. S1, S2. No murmurs, rubs, gallops. ABDOMEN: Obese, soft, nontender. Positive bowel sounds. EXTREMITIES: She has a heavy Sofia wrap bandage on her left lower extremity. NEUROLOGIC: She is alert, awake, and oriented to person only. She squeezed my hand. LABORATORY DATA: White count is 10.6, hemoglobin 12.7, platelet count 207,000, BUN 26, creatinine 1.2, sodium 139, potassium 3.8, chloride 104, CO2 23. CPK is 1014. Lactic acid 1.8. Nasal MRSA swab negative. Blood culture from 03/08, no growth. Procalcitonin 03/08, 0.24. ASSESSMENT AND PLAN: This is a 74-year-old woman with multiple medical problems, who fell at home and suffered a left leg fracture. She was tested for COVID-19 and returned positive. Her oxygen level is 94% on room air, so I think she meets criteria for Decadron and remdesivir. I am going to start Decadron for a 10-day course and remdesivir for a 5-day course. I am going to check a chest x-ray. She already had a procalcitonin which was not high, so I doubt she has a superimposed bacterial pneumonia. She needs daily LFTs while on the remdesivir, and we will need to monitor her renal function as well daily on the remdesivir. Thank you for this consultation. I will follow closely with you. Ortega Seay MD, MS, FACP, [facility] Infectious Disease RRW:modl /[id number] RT Suha, Tech 03/10/2020 5:10 AM Signed Radiology Service Progress Note PATIENT NAME: Lisa Shirley DATE OF SERVICE: March 10, 2020 TIME: 5:10 AM PATIENT IDENTITY VERIFICATION COMPLETED USING TWO (2) IDENTIFIERS: Name and Date of confirmed by patient verbally and Name and Date of confirmed by identification band. FALL SCREENING: Has the patient had 2 falls in the last year or 1 fall with injury or currently using an Ambulatory Assistive Device (Walker, Cane, Wheelchair, Crutches, etc.)? Inpatient: Screened on floor PATIENT GENDER DATA: Female. status: : No status: NO. PATIENT RELEVANT IMPLANT DATA REVIEWED: Not Applicable RADIOLOGY DEPARTMENT: CT; Exam(s) Completed: Brain PERIPHERAL IV DATA: Not applicable SIGNED BY: RT Suha March 10, 2020 5:10 AM Leland Herrera MD 03/10/2020 1:31 PM Addendum ORTHO STAFF: Agree with resident assessment and plan noted below, except where changes made. Ankle currently stable and reduced in splint. With new Covid positive status, will continue to reassess patient for safe surgical timing. Anticipate surgery (and intubation) will not occur 03/12/2020. Leland Herrera MD Inpatient Daily Progress Note Assessment and Plan 74 year old female with left trimalleolar fracture ? - Medical management per primary - Pain control per primary - Ice/elevate LLE - NWB LLE - Splint in place, maintain, keep c/d/i - Subjective No acute events overnight. Physical Examination Vitals BP 157/90 Pulse 89 Temp 36.6 ?C (97.9 ?F) Resp 21 Ht 167.6 cm (5' 6") Wt 107.7 kg (237 lb 7 oz) SpO2 95% BMI 38.32 kg/m? General No acute distress. Left Lower Extremity Splint and soft dressing dci Compartments of the thigh and leg are soft and compressible. Tenderness to palpation about the ankle Motor intact EHL/DF/PF. Sensation intact to light touch almendarez/sa/sp/dp/t. Brisk capillary refill to toes. Labs Recent Labs 03/10/20 0539 03/09/20 1005 03/09/20 0328 03/09/20 0328 03/09/20 0327 03/09/20 0313 03/08/20 2246 03/08/20 1453 03/08/20 1453 NA 139 138 < > -- -- 142 139 139 -- 134* K 3.8 3.6* < > -- -- 3.4* 4.2 4.2 -- 4.5 CHLOR 104 104 < > -- -- 105 103 103 -- 94* CO2 23 23 < > -- -- 23 20* 20* < > 19* BUN 26* 24* < > -- -- 25* 25* 25* -- 24* CREAT 1.23* 1.10* < > -- -- 1.13* 1.18* 1.18* -- 1.30* GLUC 271* 175* < > -- -- 154* 398* 398* -- 509* ANION 12 11 < > -- -- 14 16 16 -- 21* CA 8.8 8.9 < > -- -- 9.1 8.9 8.9 -- 9.8 MG -- -- -- 1.9 -- -- 2.0 -- -- AST -- -- -- -- -- -- 24 -- -- ALT -- -- -- -- -- -- 18 -- -- ALKPHOS -- -- -- -- -- -- 87 -- -- TBILI -- -- -- -- -- -- 0.8 -- -- WBC 10.64 -- -- -- -- 14.50* 14.71* -- 13.06* HB 12.7 -- -- -- -- 12.8 13.9 -- 14.1 HCT 36.6 -- -- -- -- 39.0 41.3 -- 42.5 PLT 207 -- -- -- -- 249 282 -- 276 LACT -- -- -- -- 1.8 -- 2.0 -- -- INR -- -- -- -- -- -- 1.1 -- 1.0 < > = values in this interval not displayed. Imaging No new imaging Tonie Bryan MD Orthopaedic Surgery March 10, 2020 Previous Version Kathryn Rose RN, RN 03/10/2020 11:54 AM Signed Patient has positive and negative covid results in the computer. According to power and recovery shift engineer report patient was to stay in NSICU. RN questioning need for isolation. Patient was not in isolation upon start of shift. Per nsicu resident okay to place in isolation. -placed in contact/droplet isolation. RN called lab to clarify covid status. Per lab recommends consulting infectious disease to assess. RN updated Dr. Lira and order for ID consult placed. Myriam Lira DO, 03/10/2020 11:51 AM Signed NEUROLOGICAL INTENSIVE CARE UNIT TRANSFER NOTE SERVICE DATE: 03/10/2020 SERVICE TIME: 11:46 AM PRIMARY TEAM ACCEPTING TRANSFER: [facility] Dr. Roque 03/09: Presented from OSH with concern for acute R MCA stroke. Found down at home, elevated CK, patient was in DKA, No LVO, patient admitted to [facility] NICU. Patient also had left trimal fracture, was reduced by ortho team, splinted. Today, patient had speech consult, required corpak placement, transitioned to subcutaneous insulin from insulin drop, DC vanc and zosyn Patient is a 74 year old female with past medical history significant for DM type II, HTN, CKD stage 3, HLD, SEE, major depressive disorder, GERD, Insomnia, and IBS who presents as transfer from [facility] with findings of acute R MCA stroke. Patient was reportedly found down at home and had not been seen since Thursday. Police sent to home for welfare check. Per son, there was an email sent yesterday to him from her so unsure if LKW was 1 or 2 days ago. Patient found to have left sided deficits, dysarthria and left ankle bruising/swelling. Patient reportedly has hx of stroke but no prior deficits. In ED at [facility], stroke eval performed with CT findings of R caudate, insula and frontal evolving infarcts. ASPECTS score 5. CTA nondiagnostic as contrast infiltrated in arm and IV access lost during scan. Central line placed at [facility] for access. Patient out of window for tPA and also no role for endovascular therapy given 24-48hours out and evidence of evolving infarct on CT. Patient also found to be in DKA with glucose >500, ketones and anion gap of 21. Given SQ insulin at OSH. CK elevated >1,000. Given IVF. Patient hypertensive, tachycardic and febrile. COVID negative. Left ankle fracture by XR. Patient subsequently transferred here to [facility] NSICU for further stroke workup and management. ? Patients AG closed yesterday, was transitioned to subcutaneous insuli therapy. Patient found to also be asymptomatic and covid+, remained stable hemodynamically. Patient to be monitored to covid floor for further management and evaluation. Stroke team following. PHYSICAL EXAM PRIOR TO TRANSFER ? GCS:?Eyes:?4. Spontaneous Verbal:?3: Inappropriate words Motor:?6: Obeys Motor commands Total:?13 CV:?Sinus tachycardia Pulm:?CTA bilaterally, even and unlabored on RA. GI/:?Abdomen soft, non tender, non distended? Skin/Extremities:?Edema- No??Peripheral pulses- Present all extremities??Wounds/Drsgs- Yes?Left ankle wrapped/dressed (fx)? ? NEUROLOGICAL: MOTOR STRENGTH:?Minimal movement 1/5 to LUE/LLE, 4/5 RUE, 3/5 RLE SENSATION:?Diminished?light touch?on the LUE and LLE ? PROBLEM LIST ACTIVE PROBLEM LIST Type 2 Diabetes Mellitus With Diabetic Neuropathy, Without Long-Term Current Use of Insulin (Hcc) - 06/04/2016 (B priority) Comment: hba1c 8.5 on 06/2017. D/c glimepiride as pt recently started and sounds like she has had hypoglycemic episodes. Continue januvia +SSI. Recheck HbA1c. Essential Hypertension - 06/04/2016 (L priority) See (Generalized Anxiety Disorder) - 11/05/2016 (M priority) Acute On Chronic Renal Insufficiency - 03/09/2020 Sinus Tachycardia - 03/09/2020 Rhabdomyolysis - 03/09/2020 Fall - 03/09/2020 Diabetic Ketoacidosis Without Coma Associated With Type 2 Diabetes Mellitus (Hcc) - 03/09/2020 Leukocytosis - 03/09/2020 Fever - 03/09/2020 Elevated Troponin - 03/09/2020 Closed Left Ankle Fracture - 03/09/2020 Acute Right Mca Stroke (Hcc) - 03/08/2020 Other Constipation - 06/19/2019 Coronary Artery Disease Involving [place] Coronary Artery of [place] Heart Without Angina Pectoris - 02/04/2019 Gerd Without Esophagitis - 12/28/2018 Vitamin D Deficiency - 09/07/2018 Recurrent Major Depressive Disorder, in Partial Remission (Hcc) - 08/11/2018 Chronic kidney disease, stage 3, mod decreased GFR - 08/03/2018 Neck Pain - 02/04/2018 Obesity, Class III, BMI >= 40 E66.01 - 08/16/2017 Irritable Bowel Syndrome With Diarrhea - 06/30/2017 Osteoporosis Without Current Pathological Fracture - 04/07/2017 Migraine Without Aura and Without Status Migrainosus, Not Intractable - 04/07/2017 Dysphagia - 11/05/2016 Insomnia - 06/04/2016 Neuropathy Associated With Endocrine Disorder (Hcc) - 06/04/2016 Malaise and Fatigue - 06/04/2016 Lumbar Degenerative Disc Disease - 09/13/2015 FUTURE APPOINTMENTS Please follow-up as recommended by your provider. OUTSTANDING ISSUES TO BE ADDRESSED: -Covid + -MRIB and CT pending -Ortho following SIGNATURE: Shalom Lira DO PATIENT NAME: Lisa Shirley DATE: March 10, 2020 TIME: 9:38 AM Previous Version Ortega Seay MD 03/10/2020 10:21 AM Signed 10:20 AM Consult dictated #[id number] Start remdesivir and decadron for hypoxia and COVID-19. Monitor LFTs and renal function daily. Kathryn Rose RN, RN 03/10/2020 11:59 AM Signed Patient transferred to [facility]. RN called report to [address]. RN called patient's son, Osmany and updated on status and transfer to [facility]. Informed him there are no visitors allowed on that floor. All belongings taken with patient. Blood work obtained prior to transfer. Bedside hand off with [address] RN completed. myriam Bahgat, RT, Tech 03/10/2020 11:47 AM Signed Radiology Service Progress Note PATIENT NAME: Lisa Shirley DATE OF SERVICE: March 10, 2020 TIME: 11:47 AM PATIENT IDENTITY VERIFICATION COMPLETED USING TWO (2) IDENTIFIERS: Name and Date of confirmed by patient verbally and Name and Date of confirmed by identification band. FALL SCREENING: Has the patient had 2 falls in the last year or 1 fall with injury or currently using an Ambulatory Assistive Device (Walker, Cane, Wheelchair, Crutches, etc.)? Inpatient: Screened on floor PATIENT GENDER DATA: Female. status: : No status: NO. PATIENT RELEVANT IMPLANT DATA REVIEWED: Not Applicable RADIOLOGY DEPARTMENT: Bone Density and General X-ray: Exam(s) Completed: Chest X-Ray PERIPHERAL IV DATA: Not applicable SIGNED BY: RT Monie March 10, 2020 11:47 AM Elda Isaac RN, RN 03/10/2020 2:07 PM Signed Nursing Progress: Topic: RESTRAINT NON-VIOLENT PATIENT NAME: Lisa Shirley PATIENT LOCATION: [place] [address] [address]* The patient demonstrates Attempting to Remove Medical Devices Vital to Medical Stability, Confusion, Lack of Understanding/Ability to Comply with Safety Directions, Impulsive Behavior, Inability to be Redirected, Inability to Retain Information Regarding Safety Directions as evidenced by the following behaviors getting out of bed, ripping at lines which pose an imminent danger to self or others. The following interventions were attempted but were not effective in protecting the patient's safety: Alarms, Bed in Low/Locked Position, Call Light Within Reach, IV/Feeding Bag/Pump Out of Vision, Medications Reviewed, Modify Environment, Modify Equipment, Frequent Observation, Move Patient Closer to Nurses Station, Pad Tubes/Drains, Pain/Discomfort Relief, Partial Bedrails Up, Interdisciplinary Approach including Therapies, Re-Orientation Methods, Toileting Next, a comprehensive assessment was performed and warranted placing the patient in Soft Bilateral Wrists, the least restrictive restraint needed to protect the patient's safety. Ongoing safety assessments and evaluation for earliest removal of restraints will be performed. DATE: March 10, 2020 TIME: 2:06 PM JONNY Mcgee, CCC-FLOW MANAGER, CCC/FLOW MANAGER 03/10/2020 3:25 PM Signed Speech Therapy Treatment SERVICE DATE: 03/10/2020 SERVICE TIME: 1415 to 1435 ROOM: [place] [address] IMPRESSION: Patient demonstrates oropharyngeal dysphagia which is negatively impacting his/her ability to effectively maintain adequate nutrition and hydration and/or airway safety. Patient demonstrates dysarthria and left neglect which is negatively impacting the patient's ability to effectively communicate basic ADL medical and social wants/needs with familiar and unfamiliar communication partners. ? Diet Recommendations: NPO with alternative means of nutrition/hydration/medicat ion ? Continue use of corpack (small bore feeding tube) ? Swallowing Precautions Recommendations: Rigid Oral Hygiene ? Nursing Recommendations: See swallow guide posted in patients room;Reinforce use of swallowing strategies;Reinforce use of communication strategies: Encourage left sided awareness Recommended Discharge Disposition: Acute Rehab Justification for Recommended Discharge Disposition: Patient can tolerate 3 hours of therapy per day;Willing to participate;Medically complex;Good sitting tolerance;Motivated Current [facility] Reason for Hospital Admission: Stroke Rehabilitation Precautions: Aspiration Precautions;Dysphagia;Cogni tive Linguistics Deficits;Communication Deficits;NPO;Visual Deficits;Isolation;Diabetic Isolation Type: Contact/Droplet(+ eyewear) NPO Precautions: Small Bore Feeding Tube Reason for Speech Therapy Consult: Stroke: assess swallowing and speech/cognition Relevant Past Medical History: Anxiety, Depression, DM, Fatigue, HTN, Morbid obesity, Panic state as acute reaction to stress, sleep disorder, Stroke, DM Response to Therapy Interventions: Aspiration Risk, Good Participation in activities, Multiple medical concerns, Visual Field Deficit Speech Therapy Problem List: Dysphagia;Cognitive-Linguis tic Impairment;Dysarthria Patient Report: I'm sorry. Current Status Current Feeding Method: Small Bore Feeding Tube Current Diet Textures: NPO with alternative means of nutrition/hydration/medicat ion Speech-Language, Cognitive Assessment Speech remains dysarthric Instructed to over exaggerated speech to improve intelligibility Completed overarticulation tasks with 10/20 accuracy Improved left sided awareness today Able to maintain eye contact at midline for 2 minutes x5 Attended to the left side x1 this date Gaze still fixed to the right without cueing Speech Therapy to follow to improve cognitive-communication Swallow Assessment Consistencies Tested: Thin Liquids IDDSI Level 0, Mildly Thick Liquids IDDSI Level 2 (Cross Anchor Thick) Patient with decreased alertness today Unable to self feed, in restraints Speech Therapy set up oral suction in room Completed oral care Trialed thin via spoon: +cough immediately after swallow Trialed mildly thick (nectar thick) liquids via spoon: +cough delayed after swallow Weak hyo-laryngeal movement Patient still with signs or symptoms of aspiration Recommend continue NPO status Speech Therapy to follow for dysphagia management Functional Communication Measure (FCM) Current FCM Level: Swallowing Level;Motor Speech;Attention FCM Swallowing Level: 1 FCM Attention Level: 1 FCM Motor Speech Level: 3 Patient /Caregiver Goals: Eat/Drink Without Restrictions;Improve Cognition;Improve Communication Goals for Plan of Care: SWALLOWING: Patient / Caregiver will demonstrate knowledge of taught compensatory strategies and dietary consistency recommendations to optimize functional swallow function without overt clinical signs and symptoms of aspiration or dysphagia Swallowing Goals: Patient will participate in swallow reassessment to determine safety of diet vs instrumentation vs alternate means of hydration/nutrition. - see above 03/10/2020 ? Therapeutic Tasks: Lingual/Pharyngeal/Laryngea l strengthening tasks to improve swallowing function ? COGNITION: Patient will demonstrate knowledge of taught compensatory strategies for functional cognitive-linguistic skills Cognitive Goals: Patient will improve visual left scanning given maximal cues to 25% accuracy so that the patient may demonstrate general awareness of surroundings for personal safety. - see above 03/10/2020 ? SPEECH / LANGUAGE: Patient will demonstrate knowledge of taught compensatory strategies for functional communication Speech Goals: Patient will improve speech intelligibility at the word level to 60% intelligibility given maximal cues so that the patient can functionally communicate with caregivers. Patient will demonstrate adequate return of knowledge of all compensatory strategies/instruction to effectively assist the patient in immediate speech production skills. - see above 03/10/2020 ? Progress Toward Goals: Progressing as expected Speech Rehab Potential: Good Patient will be discontinued from speech therapy when no further skilled needs are identified in this setting. PLAN: Treatment Frequency (times per week): 4 Current admission Treatment Interventions: Dysphagia Management;Dysarthria Management;Cognitive-Lingui stic Management Plan for next visit: Swallowing Strategies, Dysphagia Management, Dietary Consistencies, Motor Speech Skills Plan of Care Developed with: Patient Results and Recommendations Discussed With: Patient;Nurse TREATMENT INTERVENTIONS: Therapy Diagnosis: Other speech and language deficits following unspecified cerebrovascular disease;Dysarthria following cerebral infarction;Dysphagia following cerebral infarction Interventions Provided: Dysphagia Therapy ([id number]);Speech Therapy (84617) $ Dysphagia Therapy ([id number]) Billed Units: 1 unit $ Speech Therapy (67375) Billed Units: 1 unit Training and education provided in: Swallowing Strategies, Dysphagia Management, Motor Speech Skills(Left sided awareness) The following therapeutic skills were used:: Verbal cuing, Visual cuing, Tactile cuing, Repetitive task learning, Education on role of discipline / importance of activity Total Treatment Time (minutes): 220 Home Environment Prior Functional Level: Within Functional Limits Assistance Available: multimedia services coordinator Prior Swallowing Function/ (more content not included)... Normal [facility] KETONES/ACETONE/BHBon 2019 Beta hydroxybutyrate [Moles/Vol] >2.00 High <0.28 [facility] Comment on above: Order Comment: Speci men Type: BLOOD SPECIMEN Performed By: #### B HB ####[facility] LABCLIA [id number] [place] [address] [facility] PT Pnl PPPon 03-08-2020 INR Coag (PPP) [Relative time] 1.0 {INR} Normal 0.9-1.3 [facility] Comment on above: Order Comment: Speci men Type: BLOOD SPECIMEN Result Comment: Francia min K Antagonist (VKA) Therapeutic Range: INR 2 to 3 (Target INR of 2.5) Note: For patients treated with VKA drugs, such as warfarin, the [place] [employer] 2012 Guideline recommends a therapeutic INR range of 2 to 3 (target INR of 2.5). This recommendation includes high-risk patients with antiphospholipid syndrome with previous arterial or venous thromboembolism, current-generation mechanical or bioprosthetic aortic heart valve replacement. Note: Patients with mechanical aortic valve replacement and additional risk factors for thromboembolic events (atrial fibrillation, previous thromboembolism, LV dysfunction, hypercoagulable conditions) or an older generation mechanical AVR (i.e., ball in-Cage) or any mechanical MVR should have a INR therapeutic range of 2.5 to 3.5 (target INR of 3). Mellisa GH, et al. Chest 2012, 141:7S-47S Caro RA, et al. JAC 2017, 70: 252-289 Performed By: #### 2 4321-2 #### [facility] CLIA [id number] [address] [place] [address] PT Coag (PPP) [Time] 10.5 s Normal 9.7-13.0 [facility] Comment on above: Order Comment: Speci men Type: BLOOD SPECIMEN Performed By: #### 2 4321-2 #### [facility] CLIA [id number] [address] [place] [address] SARS-CoV-2 RNA Resp Ql SHLOMO+p robeon 03-08-2020 SARS-CoV-2 RNA Resp Ql SHLOMO+probe COVID 19 RESULT: SARS-CoV-2 (Agent of COVID-19) Not Detected by PCR. keily SARS-CoV-2 AND Influenza A/B Nucleic Acid Test for use on the keily Shavon System*_[employer]EUA This test has been authorized by the FDA under an Emergency Use Authorization (EUA). Normal [facility] Comment on above: Performed By: #### 5 8410-2 #### [facility] CLIA [id number] [address] [place] [id number] [place] XR ANKLE 3V AP/LAT/OBL LTon 03-08-2020 XR ANKLE 3V AP/LAT/OBL LT Final Report DATE OF EXAM: Mar 08 2020 3:55PM LDX 5298 - XR ANKLE 3V AP/LAT/OBL LT / PROCEDURE REASON: Ankle pain, initial exam Physician Interpretation LEFT ANKLE X-RAY SERIES HISTORY: Ankle pain, initial exam TECHNIQUE: AP, lateral and oblique views. COMPARISON: None available. RESULT: There is an obliquely oriented nondisplaced fracture involving the distal fibula/lateral malleolus which extends above the level ankle mortise. There is a mildly comminuted horizontally oriented fracture involving the medial malleolus, which is below the level ankle mortise. There is widening of the tibiotalar joint anteriorly with subluxation of the talus posteriorly. Small ossific foci are noted anterior to the tibiotalar joint which may represent small chip/avulsion fractures. A sclerotic and lucent focus is noted in the talar dome which may represent a small osteochondral defect. Calcaneal spurring is noted. IMPRESSION: Bilateral malleolar fracture with widening of the tibiotalar joint anteriorly and subluxation of the talus posteriorly. Smalltalk Developer: TENISHA Transcribe Date/Time: Mar 08 2020 3:57P Dictated by : MAITE NAVAS MD This examination was interpreted and the report reviewed and electronically signed by: MAITE NAVAS MD on Mar 08 2020 4:00PM EST Normal [facility] XR CHEST 1V FRONTALon 2019 XR CHEST 1V FRONTAL Final Report DATE OF EXAM: Mar 08 2020 8:03PM LDX 5290 - XR CHEST 1V FRONTAL / PROCEDURE REASON: Post-operative / post-procedure assessment, asymptomatic Physician Interpretation CHEST X-RAY HISTORY: Post-operative / post-procedure assessment, asymptomatic TECHNIQUE: Portable semiupright COMPARISON: 03/08/2020 RESULT: Heart/mediastinum: Within normal limits. Lungs/pleura: Clear. Bones/soft tissues: Unremarkable. Lines/tubes/devices: Right IJ approach central venous catheter in place with the tip projecting over the SVC. IMPRESSION: No active disease in the chest. Smalltalk Developer: [facility] MEDICAL CENTERTameka Transcribe Date/Time: Mar 08 2020 8:09P Dictated by : SAI KHAN MD This examination was interpreted and the report reviewed and electronically signed by: SAI KHAN MD on Mar 08 2020 8:12PM EST Normal [facility] XR CHEST 1V FRONTAL Final Report DATE OF EXAM: Mar 08 2020 3:55PM LDX 5290 - XR CHEST 1V FRONTAL / PROCEDURE REASON: Altered mental status (AMS), unclear cause Physician Interpretation EXAM 1: CHEST X-RAY CLINICAL HISTORY: Pelvic fx, known or suspected (accession [id number]), Altered mental status (AMS), unclear cause (accession [id number]) TECHNIQUE: AP supine COMPARISON: None available. RESULT: Lines/tubes/devices: None visualized. Heart/mediastinum: Within normal limits. Lungs/pleura: Clear. Bones/soft tissues: Unremarkable. EXAM 2: PELVIS X-RAY HISTORY: Pelvic fx, known or suspected TECHNIQUE: AP supine view. COMPARISON: None available. RESULT: Bilateral hip and sacroiliac joints are maintained. No acute fracture or malalignment. COMBINED IMPRESSION: 1. Chest: No acute findings. 2. Pelvis: No acute fracture or malalignment. Smalltalk Developer: TENISHA Transcribe Date/Time: Mar 08 2020 3:58P Dictated by : JUAN CARLOS VALENZUELA MD This examination was interpreted and the report reviewed and electronically signed by: JUAN CARLOS VALENZUELA MD on Mar 08 2020 3:59PM EST Normal [facility] XR PELVIS 1V APon 03-08-2020 XR PELVIS 1V AP Final Report DATE OF EXAM: Mar 08 2020 3:55PM LDX 5239 - XR PELVIS 1V AP / PROCEDURE REASON: Pelvic fx, known or suspected Physician Interpretation EXAM 1: CHEST X-RAY CLINICAL HISTORY: Pelvic fx, known or suspected (accession [id number]), Altered mental status (AMS), unclear cause (accession [id number]) TECHNIQUE: AP supine COMPARISON: None available. RESULT: Lines/tubes/devices: None visualized. Heart/mediastinum: Within normal limits. Lungs/pleura: Clear. Bones/soft tissues: Unremarkable. EXAM 2: PELVIS X-RAY HISTORY: Pelvic fx, known or suspected TECHNIQUE: AP supine view. COMPARISON: None available. RESULT: Bilateral hip and sacroiliac joints are maintained. No acute fracture or malalignment. COMBINED IMPRESSION: 1. Chest: No acute findings. 2. Pelvis: No acute fracture or malalignment. Smalltalk Developer: PSCB Transcribe Date/Time: Mar 08 2020 3:58P Dictated by : JUAN CARLOS VALENZUELA MD This examination was interpreted and the report reviewed and electronically signed by: JUAN CARLOS VALENZUELA MD on Mar 08 2020 3:59PM EST Normal [facility] aPTT PPPon 03-08-2020 aPTT Coag (PPP) [Time] 23.2 s Normal 23.0-32.4 [facility] Comment on above: Order Comment: Speci men Type: BLOOD SPECIMEN Performed By: #### 2 4321-2 #### [facility] CLIA [id number] [address] [place] [address] Total 25-OH Vitamin Don 10-25 Total 25-OH Vitamin D 31.3 ng/mL Normal 30.0-100.0 [facility] Comment on above: Performed By: #### 2 5VD1 ####[facility] [place], [place] [address] Comprehensive Panelon 2019 Albumin [Mass/Vol] 4.1 g/dL Normal 3.9-4.9 [facility] Comment on above: Performed By: #### L LP14 ####[facility] [place], [place] [address] ALP [Catalytic activity/Vol] 95 U/L Normal 34-123 [facility] Comment on above: Performed By: #### L LP14 ####[facility] [place], [place] [address] ALT-SGPT Blood 14 U/L Normal 7-38 [facility] Comment on above: Performed By: #### L LP14 ####[place] [address] Anion gap [Moles/Vol] 14 mmol/L Normal 9-18 [facility] Comment on above: Performed By: #### L LP14 ####[place] [address] AST-SGOT Blood 17 U/L Normal 13-35 [facility] Comment on above: Performed By: #### L LP14 ####[place] [address] Bilirubin Ql (U) 0.5 mg/dL Normal 0.2-1.3 [facility] Comment on above: Performed By: #### L LP14 ####[place] [address] Calcium [Mass/Vol] 9.5 mg/dL Normal 8.5-10.2 [facility] Comment on above: Performed By: #### L LP14 ####[address] [address] Chloride [Moles/Vol] 93 mmol/L Low 97-105 [facility] Comment on above: Performed By: #### L LP14 ####[address] [address] CO2 Blood 23 mmol/L Normal 22-30 [facility] Comment on above: Performed By: #### L LP14 ####[address] [address] Creatinine [Mass/Vol] 1.39 mg/dL High 0.58-0.96 [facility] Comment on above: Performed By: #### L LP14 ####[address] [address] Glucose [Mass/Vol] 309 mg/dL High 74-99 [facility] Comment on above: Result Comment: The [place] Diabetes [employer] (ADA) provides guidance for cutoff values for fasting glucose and random glucose. The ADA defines fasting as no caloric intake for at least 8 hours.Fasting plasma glucose results between 100 to 125 mg/dL indicate increased risk for diabetes (prediabetes). Fasting plasma glucose results greater than or equal to 126 mg/dL meet the criteria for diagnosis of diabetes. In the absence of unequivocal hyperglycemia, results should be confirmed by repeat testing. In a patient with classic symptoms of hyperglycemia or hyperglycemic crisis, random plasma glucose results greater than or equal to 200 mg/dL meet the criteria for diagnosis of diabetes. Reference: Standards of Medical Care in Diabetes 2016; [place] [employer]. Diabetes Care. 2016;39(Suppl 1). Performed By: #### L LP14 ####[address] [address] Potassium [Moles/Vol] 3.8 mmol/L Normal 3.7-5.1 [facility] Comment on above: Performed By: #### L LP14 ####[address] [address] Protein [Mass/Vol] 7.7 g/dL Normal 6.3-8.0 [facility] Comment on above: Performed By: #### L LP14 ####[address] [address] Sodium [Moles/Vol] 130 mmol/L Low 136-144 [facility] Comment on above: Performed By: #### L LP14 ####[address] [address] Urea nitrogen [Mass/Vol] 16 mg/dL Normal 7-21 [facility] Comment on above: Performed By: #### L LP14 ####[address] [address] Lipid Profile, Basicon 11-06 FASTING TIME 12 Hrs Normal [facility] Comment on above: Performed By: #### L LPF ####[address] [address] Cholesterol [Mass/Vol] 226 mg/dL High 0-199 [facility] Comment on above: Result Comment: Tota l Cholesterol < 200 mg/dL, Desirable Total Cholesterol 200 to 239 mg/dL, Borderline high Total Cholesterol > 239 mg/dL, High Performed By: #### L LPF ####[address] [address] Cholesterol in HDL [Mass/Vol] 49 mg/dL Normal [facility] Comment on above: Result Comment: Refe rence Range: HDL Cholesterol 40- 59 mg/dL, Acceptable HDL Cholesterol >59 mg/dL, High; Negative risk factor for coronary heart disease HDL Cholesterol <40 mg/dL, Low; Positive risk factor for coronary heart disease Performed By: #### L LPF ####[address] [address] Cholesterol in LDL [Mass/Vol] 139 mg/dL High 0-99 [facility] Comment on above: Result Comment: LDL Cholesterol < 100 mg/dL, Optimal LDL Cholesterol 100 to 129 mg/dL, Near optimal/above optimal LDL Cholesterol 130 to 159 mg/dL, Borderline high LDL Cholesterol 160 to 189 mg/dL, High LDL Cholesterol > 189 mg/dL, Very high Secondary prevention optimal LDL Cholesterol levels are recommended to be < 70 mg/dL Performed By: #### L LPF ####[address] [address] Cholesterol in LDL/Cholesterol in HDL [Mass ratio] 2.84 High 0.00-2.53 [facility] Comment on above: Performed By: #### L LPF ####[address] [address] Cholesterol.total/Cho lesterol in HDL [Mass ratio] 4.61 {ratio} Normal 0.00-5.09 [facility] Comment on above: Performed By: #### L LPF ####[address] [address] Non-HDL Cholesterol 177 mg/dL High 0-129 [facility] Comment on above: Result Comment: Non HDL Cholesterol < 130 mg/dL, Optimal Non HDL Cholesterol 130 to 159 mg/dL, Near optimal/above optimal Non HDL Cholesterol 160 to 189 mg/dL, Borderline high Non HDL Cholesterol 190 to 219 mg/dL, High Non HDL Cholesterol > 219 mg/dL, Very high Secondary prevention optimal non HDL Cholesterol levels are recommended to be < 100 mg/dL Performed By: #### L LPF ####[place] [address] Triglyceride Blood 191 mg/dL High 0-149 [facility] Comment on above: Result Comment: Trig lycerides < 150 mg/dL, Normal Triglycerides 150 to 199 mg/dL, Borderline high Triglycerides 200 to 499 mg/dL, High Triglycerides > 499 mg/dL, Very high Performed By: #### L LPF ####[place] [address] VLDL Cholesterol 38 mg/dL High 0-29 [facility] Comment on above: Performed By: #### L LPF ####[place] [address] MDRD eGFRon 11-07-2019 GFR/1.73 sq M predicted among non-blacks MDRD (S/P/Bld) [Vol rate/Area] 39.57 mL/min/{1.73_m2} Normal >60mL/min/ 1.73m2 [facility] Comment on above: Result Comment: If t he patient is , multiply the result by 1.210. Performed By: #### L GFR ####[place] [address] Clinical Summary: HMSPatient IDon 09-29-2018 [facility] Work Phone: Office Visit: New - 1st visi t with practice, Rm: [phone] NEGATED: Highlighted rowMRI (magnetic resonance imaging) history of the Lumbar on 07/20/2018 at [facility] Work Phone: NEGATED: Highlighted rowProtein mass conc Done [facility] Work Phone: NEGATED: Highlighted rowxray history of the Lumbar on 02/26/[address] [facility] Work Phone: CASE MANAGEMon 09-07-2017 CASE MANAGEM HNO ID: [id number] thor: Genie Alfaro (Jesus)Service: (none)Author Type: Social WorkerType: Care Mgt Progress NoteFiled: 09/07/2017 6:31 PMNote Text:CARE MANAGEMENT DISCHARGE NOTESERVICE DATE: 09/07/2017SERVICE TIME: 6:25 pm LOS: 0 daysAdmission Date: 09/05/2017DISCHARGE ARRANGEMENT (list agency and phone number)HomeCAREGIVER ASSESSMENT:Caregiver is ready, willing and able to meet the patient's needs asrecommended by the inter-professional team? No Caregiver NeededPatient's transition needs and plan for meeting these needs: Return homewith self careDoes the patient have an acute stroke diagnosis, or has the patient had astroke during this admission? Yes, per EMR review, pt with TIAHANDOFF COMMUNICATION:Primary Care Physician: Dr. Aragon EWAGYKYPUUCEPV ARRANGEMENTS:Froylan Hollingsworth has current PCP follow up appointment scheduled and confirmed she willchange if needed. SOC to be sent to PCP.SIGNATURE: ALEJANDRINA ANGUIANO PATIENT NAME: Lisa ShirleyDATE: September 07, 2017 : 6:27 PM PAGER/CONTACT #: [phone] [facility] CASE MGT [facility]IT [facility] [id number] thor: Sharon Loomis (Rn), RNService: Care ManagementAuthor Type: Registered NurseType: Care Mgt Initial AssessmentFiled: 09/07/2017 4:52 PMNote Text:CARE MANAGEMENT: ASSESSMENT AND DISCHARGE PLANSERVICE DATE: 09/07/2017SERVICE TIME: 4:07 PMPRIMARY CARE PHYSICIAN:Jaqueline Aragon DO (confirmed) Kq has an appointment in 3 weeks, she will change if needed.ADMISSION STATUS: Observation (pt aware)Needs Prior to Discharge: NoneMEDICAL:Patient/Represe ntative Stated Goals:To have reduction in symptomsTo return home to life as it wasHealth Insurance: MEDICARE A AND B.Health Issues Impacting Discharge Plan: TIALast Admission Date: Previous admit date: 12/25/2010Is this Within the Past 30 days? NoAdvance Directive:Current Advance Directive: NoneCare Medical Sociologist Assisted with AD Completion: No (pt called PCP, left a voicemessage requesting faxed AD per pt's request)Health Literacy:1. How often do you need to have someone help you when you readinstructions, pamphlets, or other written material from your doctor orpharmacy? Never - 12. How confident are you filling out medical forms by yourself? Extremely- 1If Patient scores > 3 on either question, the following interventions wereput into place:Patient did not score > 3FUNCTIONAL AND COGNITIVE/BEHAVIORALPRIOR TO ADMISSION:Baseline Mental Status: Alert AND Oriented, Person, Place , Time andSituationFunctional Status: IndependentDoes Patient Currently Receive Any Community Services or Home Care? NoneEquipment Prior to Admission: Cane - StraightGlucometerWalkerBP monitorHas the Patient Been in a Fpc Facility in the Past 30 days? NoSOCIAL:Living Arrangement: HomeLives With: SpouseFinancial Resources: RetiredPrimary Contact: Extended Emergency Contact InformationPrimary Emergency Contact: Lanre Shirley RAddress: [address] Fpuyxpan: SpouseSecondary Emergency Contact: Kim Urbina Ohejaxyh: GrandchildSupportive: YesOther Important Patient Contacts: NoneCaregiver Assessment:Caregiver is ready, willing and able to meet the patient's needs asrecommended by the inter-professional team? No Caregiver NeededPatient's transition needs and plan for meeting these needs: follow up asinstructedDoes the patient have an acute stroke diagnosis, or has the patient had astroke during this admission? Unable to assess at this time, PT is astroke rule out, awaiting Neurology w/u.Medication Adherence:I am convinced of the importance of my prescription medication: Agreecompletely - 0I worry that my prescription medication will do more harm than good to meDisagree completely - 0I feel financially burdened by my lfb-lj-bsyavq expenses for myprescription medication: Disagree completely - 0Patient is categorized as low risk < 2Are you interested in bedside delivery of your medications? NoCVS LodiExpress ScriptsFood Concerns:In the Last Month, Have You had Trouble Getting Food? No trouble gettingfoodDuring the Last Month, Have You Worried Whether Your Food Would Run OutBefore You Had Enough Money to Buy More? NoIs the Patient Psychosocially Complex? NoASSESSMENT AND PLAN:Medical Needs: 2 or more chronic diseasesPsychosocial Needs: NoneFREEDOM OF CHOICE EXPLAINED:N/APOTENTIAL TRANSITION PLANSNo Services IndicatedCM met with pt at bedside, introduced self and role. Pt states she isfrom home, independent. She anticipates no skilled needs at discharge.States no concerns at this time. She has a PCP apt scheduled in 3 weeksand would like to keep this appointment. Spouse will transport.SIGNATURE: Sharon Loomis RN PATIENT NAME: Lisa ShirleyDATE: September 07, 2017 : 4:07 PM PAGER/CONTACT #: [phone] [facility] CBC and Differentialon 09-07 Abs Baso 0.03 k/uL Normal <0.[address] [facility] Comment on above: Performed By: #### T NT ####[facility] [address] [place] [address] Abs Erie 0.51 k/uL Normal <0.[address] [facility] Comment on above: Performed By: #### T NT ####[facility] [address] [place] [address] Abs Neut 2.43 k/uL Normal 1.45-7.[address] [facility] Comment on above: Performed By: #### T NT ####[facility] [address] [place] [address] Basophils/100 WBC Auto (Bld) 0.5 % Normal [facility] Comment on above: Performed By: #### T NT ####[facility] [address] [place] [address] Eosinophils 0.06 10*3/uL Normal <0.[address] [facility] Comment on above: Performed By: #### T NT ####[facility] [address] [place] [address] Eosinophils/100 leukocytes 1.1 % Normal [facility] Comment on above: Performed By: #### T NT ####[facility] [address] [place] [address] Erythrocyte distribution width Auto Ratio (RBC) 13.3 % Normal 11.5-15.[address] [facility] Comment on above: Performed By: #### T NT ####[place] [address] Erythrocytes (RBC) 4.42 10*6/uL Normal 3.90-5.20 [facility] Comment on above: Performed By: #### T NT ####[facility] [address] [place] [address] Hematocrit (HCT) 39.7 % Normal 36.0-46.[address] [facility] Comment on above: Performed By: #### T NT ####[place] [address] Hemoglobin mass conc (Bld) 12.8 g/dL Normal 11.5-15.[address] [facility] Comment on above: Performed By: #### T NT ####[facility] [address] [place] [address] Lymphocytes 2.45 10*3/uL Normal 1.00-4.[address] [facility] Comment on above: Performed By: #### T NT ####[place] [address] Lymphocytes/100 leukocytes 44.7 % Normal [facility] Comment on above: Performed By: #### T NT ####[place] [address] MCH 29.0 pG Normal 26.0-34.[address] [facility] Comment on above: Performed By: #### T NT ####[place] [address] MCHC mass conc (RBC) 32.2 g/dL Normal 30.5-36.0 [facility] Comment on above: Performed By: #### T NT ####[place] [address] MCV 89.8 fL Normal 80.0-100.[address] [facility] Comment on above: Performed By: #### T NT ####[facility] [address] [place] [address] Monocytes/100 leukocytes 9.3 % Normal [facility] Comment on above: Performed By: #### T NT ####[facility] H[address]wylexqw4543 [address] Neutrophils/100 WBC Auto (Bld) 44.4 % Normal [facility] Comment on above: Performed By: #### T NT ####[facility] Thiutbrbwz7780 [address] Platelet mean volume (PMV) 11.6 fL Normal 9.0-12.[address] [facility] Comment on above: Performed By: #### T NT ####[facility] Iqfcilgrxy2517 [address] Platelets 206 10*3/uL Normal 150-[address] [facility] Comment on above: Performed By: #### T NT ####[facility] Bnuntdsucn8625 [address] WBC (Leukocytes) 5.48 10*3/uL Normal 3.70-11.[address] [facility] Comment on above: Performed By: #### T NT ####[facility] Nidzyeljxw7390 [address] CNDSon 09-07-2017 [facility] HNO ID: [id number] thor: Cristopher Munoz MDService: [facility] MedicineAuthor Type: PhysicianType: Discharge SummariesFiled: 09/07/2017 5:56 PMNote Text:DISCHARGE SUMMARYPATIENT NAME: Lisa BostondwickMRN: [id number] Information Admission Information ADMIT DATE: 09/05/2017DISCHARGE DATE: 09/07/2017MY DOCTORS AND MEDICAL TEAM:[facility] Doctor: Akbar Mas Care Provider: Kuldeep Babb Medical Team Members: Treatment Team:Attending Provider: JUAN Masonsulting: Ralph Rachel Jr.Physician [employer] Setter: Gabe Tinoco) StrickerMY CONDITION AT DISCHARGE: StableREASON I WAS IN THE HOSPITAL: Possible TIASUMMARY OF WHAT HAPPENED WHILE I WAS IN THE HOSPITAL: Studies werenegative cannot prove he did not have a TIA but this was probably amigraine. Because of potential risks for stroke it's better to take thePlavix and increase the statin drug for your cholesterol.OTHER PROBLEMS/DIAGNOSIS:Principa l Problem: TIA (transient ischemic attack)Active Problems: Type 2 diabetes mellitus with diabetic neuropathy, without long-termcurrent use of insulin (HCC) Acute kidney injury superimposed on CKD (HCC) Essential hypertension SEE (generalized anxiety disorder)Resolved Problems: * No resolved hospital problems. *OPERATIONS PERFORMED WHILE IN THE HOSPITAL: NoneIMPORTANT TEST/PROCEDURES:No procedures performedTEST RESULTS NOT AVAILABLE AT THIS TIME:No pending results Discharge Disposition Discharge Disposition: Home With Self CareActivity When You Leave the Hospital Resume pre-hospital activityDiet Instructions Other: Weight loss is important in the long run for your health. Discuss aweight loss diet with your doctor.For Pain When You Leave the Hospital Use acetaminophen (Tylenol) as recommended on the bottleFollow Up Appointments Follow-Up Appointment When: In 1 week Patient/Parents to call for appointment?: Yes Jaqueline Alvarez [phone] [address] [facility] [address] PCP Requested ReferralAdditional Provider to Provider Information: Episode of right eye visiondisturbance lasting 10 minutes (amaurosis fugax) followed by slurredspeech and difficulty with word finding (lasting 10 minutes, thenresolved).Hx of CVA of destiny around 2010.Active Hospital Problems as of 09/07/2017 Noted - Resolved A * (Principal)TIA (transient ischemic attack) 09/05/2017 - Present Overview Possible TIA, also may have had episode of hypoglycemia.Episode of right eye vision disturbance, slurred speech and difficultywith word finding, now resolved.Hx of CVA of destiny around 2010.CT brain NAP.On statin and ASA.PlanStroke care path. MRI/MRA brain, US b/l carotids, ECHO, tele, FLP, HbA1c.Neuro consult Current Assessment AND PlanAssessment: MRI completed and no significant findings with neurologicconsultation completed. This was probably a migraine and is discussedwith patient that we cannot be a higher percent sure was a TIA and she isagreeable to proceed with the plan per neurology.PLAN:Discharge on Plavix and increased dose of statin B Type 2 diabetes mellitus with diabetic neuropathy, without long-termcurrent use of insulin (HCC) 06/04/2016 - Present Overview hba1c 8.5 on 06/2017.D/c glimepiride as pt recently started and sounds like she has hadhypoglycemic episodes. Continue januvia +SSI.Recheck HbA1c. Current Assessment AND PlanHemoglobin A1C (%)Date Value09/05/2017 8.002/07/2013 6.407/06/2012 6.102/07/2012 6.3 HGBA1C (%)Date Value06/30/2017 8.510/08/2016 8.305/ 7.801/ 7.9 Assessment: Better control hospital probably because of decreased caloricintakePLAN:Counseled patient D Acute kidney injury superimposed on CKD (HCC) 09/05/2017 - Present Overview Cr has been raising this year.Metformin recently d/c'ed.Hold SOFIA, avoid nephrotoxins. Current Assessment AND PlanRecent Labs [id number] 20 19 23CREAT 1.42* 1.47* 1.52*CA 9.3 9.3 9.6MG 2.1 -- --Assessment: Baseline is about 1.45PLAN: She is back to her June baseline L Essential hypertension 06/04/2016 - Present Current Assessment AND PlanAssessment: Adequate control with current regimenPLAN:Continue current medication M SEE (generalized anxiety disorder) 11/05/2016 - Present Current Assessment AND PlanAssessment: Long-term Xanax usePLAN:Continue Ambien and XanaxResolved Hospital Problems as of 09/07/2017 NoneFOLLOW-UP APPOINTMENTS ALREADY SCHEDULED WITH A [facility] PROVIDER:Future AppointmentsDate Time Provider Department Center10/02/2017 2:30 PM Jaqueline MENDEZ AG 225 ELYRIDISCHARGE MEDICATION: Current Discharge Medication ListSTART taking these medicationsclopidogrel (PLAVIX) 75 mgTake 75 mg by mouth once daily.Qty: 30 tablet Refills: 0CONTINUE these medications which have CHANGEDatorvastatin (LIPITOR) 80 mgTake 80 mg by mouth once daily.Qty: 30 tablet Refills: 0CONTINUE these medications which have NOT CHANGEDcalcium carbonate (CALTRATE) 600 mgTake 600 mg by mouth three times daily.glimepiride (AMARYL) 4 mgTake 4 mg by mouth daily with breakfast.Qty: 30 tablet Refills: 1Associated Diagnoses:Type 2 diabetes mellitus with diabetic neuropathy,without long-term current use of insulin (HCC)PSYLLIUM HUSK (METAMUCIL ORAL)Take by mouth once daily.BIFIDOBACTERIUM INFANTIS (ALIGN ORAL)Take by mouth once daily.sitaGLIPtin (JANUVIA) 100 mgTake 100 mg by mouth once daily.Qty: 90 tablet Refills: 1Associated Diagnoses:Type 2 diabetes mellitus with peripheral neuropathy(HCC)ALPRAZolam (XANAX) 0.5 mgTake 0.5 mg by mouth three times daily.Qty: 270 tablet Refills: 0Associated Diagnoses:Anxietynitroglyce rin sublingual (NITROQUICK) 0.4 mgDissolve 0.4 mg under the tongue every 5 minutes as needed.Qty: 1 Bottle of 25 Refills: 2zolpidem (AMBIEN) 10 mgTake 10 mg by mouth at bedtime as needed.Qty: 90 tablet Refills: 0Associated Diagnoses:Primary insomniaergocalciferol (vitamin D2) (DRISDOL) 50,000 UnitsTake 50,000 Units by mouth once each week.Qty: 13 capsule Refills: 3Associated Diagnoses:Vitamin D deficiencydenosumab (PROLIA) 60 mgInject 60 mg subcutaneously once every 6 months.ramipril (ALTACE) 10 mgTake 10 mg by mouth once daily.amLODIPine (NORVASC) 10 mgTake 10 mg by mouth once daily.Qty: 90 tablet Refills: 0Associated Diagnoses:Essential hypertensionSTOP taking these medicationsaspirin, enteric coated (ASPIRIN, ENTERIC COATED) 81 mgComments:Reason for Stopping:BP 125/70 Pulse 86 Temp 36.6 ?C (97.9 ?F) (Oral) Resp 18 Ht144.8 cm (4' 9") Wt 92.7 kg (204 lb 6.4 oz) SpO2 97% BMI 44.23kg/m?GENERAL: Alert, no distress, cooperativeNECK: No Jugulovenous distentionLUNGS: Clear respiratory distress -NoCARDIAC: RRR without murmur, rub, or gallopABDOMEN: Abdomen soft, non-tender, BS normal, No masses or organomegalyEXTREMITIES:no edema No cordsNEURO: Grossly normal cognition, motor function, and cranial nerves.?TIME OF CARE: Discharge Management: I personally spent greater than 30minutes involved in the discharge management of this patient.SIGNATURE: Cristopher Munoz MD PAGER/CONTACT #:DATE: September 07, 2017TIME: 5:[address] [facility] CONSULTon 09-07-2017 CONSULT HNO ID: [id number] thor: Ralph Rachel Jr.Service: NeurologyAuthor Type: PhysicianType: ConsultsFiled: 09/07/2017 5:20 PMNote Text:CONSULT: NEUROLOGY SERVICESERVICE DATE: 09/07/2017SERVICE TIME: 4:56 PMREASON FOR CONSULT: StrokeREQUESTING PHYSICIAN: Gabe Erickson [facility] CaliforniaCristy CARE PHYSICIAN: Ronaldo BabbMauricio Shirley is a pleasant 72 year old right handed female with pastmedical history significant for stroke ([id number] residual), HTN, DM,HLD, who presented to [place] [facility] on 09/05/17 following transient onset of:-flashing lights in the nasal visual field of only the right eye [id number] minutes, with associating word finding difficulties and slurred speechproceeded by,-10 to 20 minutes of headache involving the left hemicranium with mildnausea and photophobia.In ER, symptoms resolved and NIHSS reportedly 0. She has been asx sinceadmit.She denies focal weakness or numbness, vertigo, dysphagia.Note patient has known history of headaches dating back to childhood, thatby history are likely migraines. Her last headache for which she wasevaluated with imaging was a CT brain performed 02/12/17 that wasunremarkable. During this presentation CT brain performed and I reviewedimages. Again, CT brain was unremarkable without evidence of an acuteintracranial process. Per radiology report:Limitations: Beam hardening artifact.Post-operative change: ?Right temporal craniotomy.Acute change: ? No definitive evidence of an acute infarct.Hemorrhage: ? ?No evidence of acute intracranial hemorrhage.Mass Lesion / Mass Effect: ? No evidence of an intracranial mass orextraaxialfluid collection.Chronic change: Decreased attenuation involving the periventricular anddeep white?matter of the cerebral hemispheres with focal decreased attenuationredemonstrated involving the right thrasher radiata and destiny.Ventricles: The ventricles appear within normal limits in size for agewithoutevidence of midline shift.Paranasal sinuses and skull base: ?The visualized paranasal sinuses appearclear.?CMP and CBC in ER unremarkable. Elevated Cr of 1.45 but baseline.Since admit carotid dopplers completed that per report showed:1. ?No hemodynamically significant lesions are seen.2. ?No significant plaque formation distal common proximal internalcarotid arteries.?MRI of brain with MRA of head performed today showing no stroke or otherintracranial process on my review of images. Per report:No acute intracranial infarct. ?Remote ischemic changes and mild volumeloss.Mild luminal irregularity in the middle cerebral arteries and posteriorcerebral arteries bilaterally suggests intracranial atherosclerosis. ?Novessel cut off or filling defect.ECHO performed today and per report:- Technically difficult exam due to body habitus.- Exam indication: TIA- The left ventricle is normal in size. Left ventricular systolic functionisnormal. EF = 65 ? 5% (2D biplane) Grade I left ventricular diastolicdysfunction.- The right ventricle is normal in size. Right ventricular systolicfunction ismildly decreased.-Bubble study inconclusive for shunt due to technically difficult study.- The patient has not had a prior CC echocardiographic exam forcomparison.Tele with no afib.Cholesterol, TotalDate Value Ref Range Tixiqb0909/06/2017 175 <200 mg/dL FinalComment:<200 mg/dL, Mhlmiumfz840-932 mg/dL, Borderline high>239 mg/dL, High HDL CholesterolDate Value Ref Range Axfsli5409/06/2017 51 >39 mg/dL FinalComment:40-59 mg/dL, Acceptable>59 mg/dL, High: Negative risk factor for coronary heart disease<40 mg/dL, Low: Positive risk factor for coronary heart disease LDL CholesterolDate Value Ref Range Ldeaxe7409/06/2017 91 <100 mg/dL FinalComment:<100 mg/dL, Qxtzhkz456-620 mg/dL, Near optimal/above vxnjxgo227-769 mg/dL, Borderline izgg282-911 mg/dL, High>189 mg/dL, Very highSecondary prevention optimal LDL Cholesterol levels are recommended to be< 70mg/dL Triglyceri deDate Value Ref Range Qfysip2109/06/2017 167 (H) <150 mg/dL FinalComment:<150 mg/dL, Wpahef584-405 mg/dL, Borderline smtx106-008 mg/dL, High>499 mg/dL, Very high Patient was on ASA at home.FUNCTIONAL STATUS: IndependentPAST MEDICAL HISTORYDiagnosis Date- Anxiety- Chest pain- Chronic pain sensitive to Cymbalta- Degeneration of lumbar intervertebral disc- Depression- Diabetes (HCC)- Diabetic polyneuropathy associated with type 2 diabetes mellitus (HCC)- Disorder of sacrum- Essential hypertension- Fatigue- Generalized anxiety disorder sensi to Cymbalta, etc; PREFERS XANAX only tok ok 09/08- History of cerebrovascular accident- Hyperlipidemia- Hypertension- IBS (irritable bowel syndrome)- Idiopathic osteoporosis- Insomnia- Low back pain- Lumbar radiculopathy- Major depressive disorder- Morbid obesity (HCC) BMI 47- Neuropathy (HCC)- Obstructive sleep apnea syndrome- Osteoporosis- Panic state as acute reaction to stress- Sleep disorder- Stroke (HCC)- 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)- Vitamin B12 deficiency (non anemic)- Vitamin D deficiencyPAST SURGICAL HISTORYProcedure Laterality Date- CHOLECYSTECTOMY HX- COLONOSCOPY usually had some polyps 2009FAMILY HISTORYProblem Relation Age of Onset- Colon Cancer Father- Cancer Father- Lung cancer [OTHER] Mother- Diverticulitis [OTHER] BrotherSocial HistorySubstance Use Topics- Smoking status: Never Smoker- Smokeless tobacco: Never Used Comment: Never smoked; Tobacco reviewed with patient 12/04/2015- Alcohol use No Comment: Non-drinkerPrescriptions Prior to Admission:aspirin, enteric coated (ASPIRIN, ENTERIC COATED) 81 mg EC tablet Take 81mg by mouth once daily. Disp: Rfl: 09/05/2017 at morningcalcium carbonate (CALCIUM 600) 600 mg calcium (1,500 mg) tab Take 600 mgby mouth three times daily. Disp: Rfl: 09/05/2017 at noonglimepiride (AMARYL) 4 mg tablet Take 1 tablet by mouth daily withbreakfast. Disp: 30 tablet Rfl: 1 09/05/2017 at Unknown timeatorvastatin (LIPITOR) 40 mg tablet Take 40 mg by mouth once daily. Disp:Rfl: 09/04/2017 at eveningPSYLLIUM HUSK (METAMUCIL ORAL) Take by mouth once daily. Disp: Rfl:09/04/2017 at eveningBIFIDOBACTERIUM INFANTIS (ALIGN ORAL) Take by mouth once daily. Disp:Rfl: 09/04/2017 at eveningsitaGLIPtin (JANUVIA) 100 mg tablet Take 1 tablet by mouth once daily.Disp: 90 tablet Rfl: 1 09/05/2017 at morningALPRAZolam (XANAX) 0.5 mg tablet Take 1 tablet by mouth three times dailyfor 90 days. Disp: 270 tablet Rfl: 0 09/05/2017 at noonnitroglycerin sublingual (NITROQUICK) 0.4 mg SL tablet Dissolve 1 tabletunder the tongue every 5 minutes as needed. Disp: 1 Bottle of 25 Rfl: 2zolpidem (AMBIEN) 10 mg tab Take 1 tablet by mouth at bedtime as neededfor up to 90 days. Disp: 90 tablet Rfl: 0 09/04/2017 at eveningergocalciferol, vitamin D2, (DRISDOL) 50,000 unit capsule Take 1 capsuleby mouth once each week. Disp: 13 capsule Rfl: 3 08/31/2017 at Unknown timedenosumab (PROLIA) 60 mg/mL syrg Inject 60 mg subcutaneously once every 6months. Disp: Rfl: 02/25/2017 at Unknown timeramipril (ALTACE) 10 mg capsule Take 10 mg by mouth once daily. Disp:Rfl: 09/05/2017 at monringamLODIPine (NORVASC) 10 mg tablet Take 1 tablet by mouth once daily. Disp:90 tablet Rfl: 0 09/05/2017 at [facility] medications:zolpidem 10 mg tab(s) (AMBIEN) 10 mg ORAL HS PRNALPRAZolam 0.5 mg tab(s) (XANAX) 0.5 mg ORAL TIDsitaGLIPtin 100 mg tab(s) (JANUVIA) 100 mg ORAL DAILYatorvastatin 40 mg tab(s) (LIPITOR) 40 mg ORAL DAILYamLODIPine 10 mg tab(s) (NORVASC) 10 mg ORAL DAILYaspirin, enteric coated 81 mg tab(s) (ASPIRIN, ENTERIC COATED) 81 mg ORALDAILYdextrose 40 % 15 g 15 g ORAL PRNglucagon 1 mg injection (GLUCAGEN) 1 mg INTRAMUSCULAR PRNdextrose 50% in water 25 mL syringe 12.5 g INTRAVENOUS PRNheparin 5,000 Units injection 5,000 Units SUBCUTANEOUS q 12 H0.9% NaCl 3-5 mL 3-5 mL INTRAVENOUS q 12 Hacetaminophen 650 mg tab(s) (TYLENOL) 650 mg ORAL q 6 H PRNinsulin lispro injection (rapid acting) (HumaLOG) SUBCUTANEOUS w MEALSperflutren lipid microspheres 1.1 mg/mL 1.3 mL injection (DEFINITY) 1.3 mLINTRAVENOUS DIRECTED PRNAllergies As of Date: 09/05/2017Allergen Noted ReactionCRESTOR [ROSUVASTATIN CALCIUM] 11/03/2010 UnknownMELOXICAM 12/17/2015 UnknownPREDNISONE 11/03/2010 UnknownFully Assessed 09/05/2017COMPLETE REVIEW OF SYSTEMS:GENERAL: No weight loss, malaise or feversHEENT: Negative for frequent or significant headaches, No changes inhearing or vision, no nose bleeds or other nasal problemsNECK: Negative for lumps, goiter, pain and significant neck swellingRESPIRATORY: Negative for cough, hemoptysis, wheezing, COPD, dyspnea orshortness of breathCARDIOVASCULAR: Negative for chest pain, leg swelling, hypertension, CHFor palpitationsGI: No nausea, vomiting, or diarrheaGU: No history of dysuria, frequency or incontinenceMUSCULOSKELETAL : Negative for joint pain or swelling, back pain or musclepainSKIN: Negative for lesions, rash, and itchingHEMATOLOGY/LYMPHOLOG Y: Negative for prolonged bleeding, bruising easily orswollen nodesENDOCRINE: Negative for cold or heat intolerance, polyuria, polydipsia andgoiterNEURO: No history of headaches, syncope, paralysis, seizures or tremorsObjectivePHYSICAL EXAM:GENERAL EXAM:General appearance: NAD, pleasant.HEENT: NC/AT, nasal congestion absent, no oral lesions, membranes moist.NECK: No masses, supple.Lungs: CTA bilaterally.CV: RRR nl S1, S2. No carotid bruits.Abd: Soft, nontender, nondistended. Bowel sounds present.Extr: No cyanosis, clubbing or edema. No evidence of fasciculations.Distal extremity pulses 2+. Capillary refill <2 sec.Skin: Cool to touch. No rash.NEUROLOGICAL EXAM:General: Awake, alert, oriented x3 (person,place,time), language fluent,no dysarthria; comprehension, naming, repetition intact. Short and half-way memory intact. Fund of knowledge grossly normal by MOCA.CN: PERRL, fundi with no evidence of papilledema, EOMI and withoutnystagmus, VFF to confrontation, facial sensation and strength are normaland symmetric, hearing is intact to finger rub bilaterally, palate andtongue movements are intact and symmetric. SCM and trapezius strengthnormal.Motor: Normal tone, bulk and strength (5/5) bilaterally (throughoutextremities x4).Reflexes: 1/4 and symmetric, plantar stimulation is flexor.Coordination: FNF, SARAH, HTS intact. No tremors.Sensation: Light touch, pin, vibration intact throughout. No evidence ofneglect.Gait: Narrow based and stable with normal stride and arm swing. Rombergnormal.NIHSS: 1(a). Mental Status - LOC 0 = Alert and Attentive 1(b). LOC Questions 0 = Correct age and month 1(c). LOC-Commands 0 = Both 2. Gaze 0 = Normal 3. Visual [place] 0 = Full 4. Facial Weakness 0 = Normal 5(a). Left Arm 0 = No drift 5(b). Right Arm 0 = No drift 6(a). Left Leg 0 = No drift 6(b). Right Leg 0 = No drift 7. Ataxia 0 = Absent 8. Sensory 0 = Normal 9. Aphasia 0 = None 10. Dysarthria 0 = Absent 11. Neglect 0 = NoneNIHSS Total (0-42): 0Patient Vitals for the past 24 hrs: BP Temp Temp src Pulse Resp SpO2 Height Jrdops21/14/18 1600 153/64 36.9 ?C (98.5 ?F) Oral 84 18 97 % - -09/07/17 1200 125/70 36.6 ?C (97.9 ?F) Oral 86 18 97 % - -09/07/17 0800 154/60 36.6 ?C (97.9 ?F) Oral 77 20 98 % - -09/07/17 0600 157/62 36.4 ?C (97.6 ?F) Oral 70 20 95 % - 92.7 kg (204 lb6.4 oz)09/07/17 0308 152/88 36.4 ?C (97.5 ?F) - 84 - 96 % - -09/07/17 0200 144/80 36.7 ?C (98.1 ?F) Oral 73 18 95 % - -09/06/17 2200 148/61 36.9 ?C (98.5 ?F) Oral 77 20 96 % - -09/06/17 2000 149/64 36.8 ?C (98.3 ?F) Oral 85 20 95 % 144.8 cm (4' 9") -09/06/17 1800 128/73 36.9 ?C (98.4 ?F) Oral 78 18 95 % - -Body mass index is 44.23 kg/m?.DATA:Diagnostic tests reviewed for today's visit:Most recent labs and imaging results.WBCDate Value09/07/2017 5.48 k/uL09/06/2017 6.28 k/uL09/05/2017 6.4 thou/cmm RBCDate Value09/07/2017 4.42 m/uL09/06/2017 4.24 m/uL09/05/2017 4.56 mil/cmm Platelet CountDate Value09/07/2017 206 k/uL09/06/2017 206 k/uL09/05/2017 205 thou/cmm BUN (mg/dL)Date Value09/07/2017 23 Creatinine (mg/dL)Date Value09/07/2017 1.4205 1.47009/05/2017 1.52 CBC, Coags, BMP, Mg, PhosRecent Labs 5009/05/1817NA 140 141 134*K 4.4 4.1 4.0CHLOR 102 104 102CO2 26 24 24GLUC 156* 71* 102*CA 9.3 9.3 9.6MG 2.1 -- --Liver Function, Amylase, AND LipaseRecent Labs 458 [id number] 6.7 6.5ALB 4.0 3.9ALT 10 10AST 14 14ALKPHOS 60 59TBILI 0.5 0.3Impression/Recommendatio nsPatient with transient episode of R monocular vision change (not loss)with associated language impairment and dysarthria proceeded by headacheof L ventura-cranium. Symptoms suggestive of complicated migraine withpatient having history of headaches. However, even though stroke workupunremarkable, feel that given her stroke risk factors and history ofstroke, that it is appropriate to treat as TIA. Discussed with patient,and she agrees. Patient educated on both migraine and TIA includingetiologies, physiologies and treatments. We reviewed all of her testresults. Plan as follows:-Given history of stroke and intracranial atherosclerosis, would recommenddual anti-plt therapy. However, patient requesting only one "bloodthinner". Thus will d/c ASA and start Plavix 75mg daily.-Increase Lipitor to 80mg daily given LDL >70.-BP goal <140/90.-Glucose goal <140.-No need for headache preventative as patient endorses <1 headache permonth.-Follow up with neurology in 4 weeks.-Plan d/w Dr. Munoz. Should be ok with d/c home today.-Patient does have known OLESYA. D/w patient med conditions exacerbated byuntreated OLESYA including increased risk of stroke. She defers therapy atthis time.SIGNATURE: Ralph Rachel MD PATIENT NAME: Lisa ShirleyDATE: September 07, 2017 : 4:56 PM PAGER: [phone] [facility] Comp Metabolic Panelon 09-07 Alanine aminotransferase (ALT) 10 U/L Normal 7-[address] [facility] Comment on above: Performed By: #### T NT ####[facility] [id number] [place], [place] [phone] Albumin 4.0 g/dL Normal 3.9-4.[address] [facility] Comment on above: Performed By: #### T NT ####[facility] [address] [place] [phone] Alkaline phosphatase (ALP) 60 U/L Normal 32-[address] [facility] Comment on above: Performed By: #### T NT ####[facility] [address] [place] [address] Anion gap 12 mmol/L Normal 9-[address] [facility] Comment on above: Performed By: #### T NT ####[place] [address] Aspartate aminotransferase (AST) 14 U/L Normal 13-[address] [facility] Comment on above: Performed By: #### T NT ####[place] [address] Bilirubin (total) 0.5 mg/dL Normal 0.2-1.[address] [facility] Comment on above: Performed By: #### T NT ####[place] [address] Calcium 9.3 mg/dL Normal 8.5-10.[address] [facility] Comment on above: Performed By: #### T NT ####[place] [address] Chloride 102 mmol/L Normal 97-[address] [facility] Comment on above: Performed By: #### T NT ####[place] [address] CO2 26 mmol/L Normal 22-[address] [facility] Comment on above: Performed By: #### T NT ####[place] [address] Creatinine 1.42 mg/dL High 0.58-0.[address] [facility] Comment on above: Performed By: #### T NT ####[facility] [address] [place] [address] eGFR (non-black) 37 . Normal [facility] Comment on above: Result Comment: eGFR (Estimated GFR) Units of measure: mL/min/1.73 meters squaredeGFR is derived from the reexpressed MDRD Study equation using the following parameters: serum creatinine, age, gender and race. The creatinine assay has been calibrated to be traceable to IDMS.An eGFR <60 mL/min/1.73m2 for >3 months is consistent with chronic kidney disease. Refer to KDOQI guidelines for clinical interpretation.In patients with unstable renal function, e.g. those with acute kidney injury, the eGFR may not accurately reflect actual GFR. Performed By: #### T NT ####[place] [address] eGFR (non-black) 44 mL/min/{1.73_m2} Normal [facility] Comment on above: Performed By: #### T NT ####[place] [address] Glucose mass conc 156 mg/dL High 74-[address] [facility] Comment on above: Result Comment: The [place] Diabetes [employer] (ADA) provides guidance for cutoff values for fasting glucose and random glucose. The ADA defines fasting as no caloric intake for at least 8 hours. Fasting plasma glucose results between 100 to 125 mg/dL indicate increased risk for diabetes (prediabetes).Fasting plasma glucose results greater than or equal to 126 mg/dL meet the criteria for diagnosis of diabetes. In the absence of unequivocal hyperglycemia, results should be confirmed by repeat testing. In a patient with classic symptoms of hyperglycemia or hyperglycemic crisis, random plasma glucose results greater than or equal to 200 mg/dL meet the criteria for diagnosis of diabetes.Reference: Standards of Medical Care in Diabetes 2016, [place] [employer]. Diabetes Care. 2016.39(Suppl 1). Performed By: #### T NT ####[place] [address] Potassium molar conc 4.4 mmol/L Normal 3.7-5.1 [facility] Comment on above: Performed By: #### T NT ####[place] [address] Protein 6.7 g/dL Normal 6.3-8.[address] [facility] Comment on above: Performed By: #### T NT ####[place] [address] Sodium 140 mmol/L Normal 136-[address] [facility] Comment on above: Performed By: #### T NT ####[place] [address] Urea nitrogen 20 mg/dL Normal 7-[address] [facility] Comment on above: Performed By: #### T NT ####[place] [address] MRA BRAIN WO IVCONon -14-2 018 MRA BRAIN WO IVCON * * *Final Report* * *DATE OF EXAM: Sep 07 2017 10:40AM [facility] 0272 - MRA BRAIN WO IVCON / REASON: TIA (transient ischemic attack) * * * * Physician Interpretation * * * * EXAMINATION: MRI BRAIN WO IVCON, MRA BRAIN WO IVCONHISTORY: TIA (transient ischemic attack)TECHNIQUE: Routine noncontrast MRI protocol including diffusion images. 3-D [id number] MR angiography of the brain without contrast. Three dimensional imaging was created on a stand-alone 3-D workstation and supervised and reviewed by the interpreting physician.MQ: [id number]: None.RESULT:Acute Change: There is no evidence of restricted diffusion to suggest an acute infarct.Hemorrhage: No evidence of prior parenchymal hemorrhage on the gradient echo images.Mass Lesion/ Mass Effect: No evidence of an intracranial mass or extra-axial fluid collection. No significant mass effect.Chronic Change: There is a remote infarct in the left ventral paramedian destiny. Patchy areas of T2 and FLAIR hyperintensity are present within white matter of both cerebral hemispheres. These are nonspecific, but most likely the result of moderate chronic microvascular ischemia.Parenchyma: There is mild generalized parenchymal volume loss. The brain parenchyma is otherwise within normal limits of signal intensity and morphology.Ventricles: Ventriculomegaly corresponds to the degree of parenchymal volume loss.Skull Base: Hypothalamic and pituitary region are grossly normal. Craniocervical junction is normal. No significant marrow replacement process.Vasculature: Major intracranial arterial structures, and dural venous sinuses show typical flow void, suggesting patency by spin echo criteria.Other: The visualized paranasal sinuses and mastoid air cells are clear. The orbits and extracranial soft tissues are unremarkable.MRA: Mild luminal irregularity in the proximal MCAs and roofer bilaterally compatible with intracranial atherosclerotic change. No evidence of flow-limiting stenosis or vessel cut off or filling defect. No aneurysm is detected.IMPRESSION:No acute intracranial infarct. Remote ischemic changes and mild volume loss.Mild luminal irregularity in the middle cerebral arteries and posterior cerebral arteries bilaterally suggests intracranial atherosclerosis. No vessel cut off or filling defect.Smalltalk Developer: TENISHA Transcribe Date/Time: Sep 07 2017 10:42ADictated by : SEAN FOWLER MDThijoni examination was interpreted and the report reviewed and electronically signed by: SEAN FOWLER MD on Sep 07 2017 10:45AM [id number] [facility] MRI BRAIN WO IVCONon 018 MRI BRAIN WO IVCON * * *Final Report* * *DATE OF EXAM: Sep 07 2017 10:40AM [facility] 0294 - MRI BRAIN WO IVCON / REASON: TIA (transient ischemic attack) * * * * Physician Interpretation * * * * EXAMINATION: MRI BRAIN WO IVCON, MRA BRAIN WO IVCONHISTORY: TIA (transient ischemic attack)TECHNIQUE: Routine noncontrast MRI protocol including diffusion images. 3-D [id number] MR angiography of the brain without contrast. Three dimensional imaging was created on a stand-alone 3-D workstation and supervised and reviewed by the interpreting physician.MQ: [id number]: None.RESULT:Acute Change: There is no evidence of restricted diffusion to suggest an acute infarct.Hemorrhage: No evidence of prior parenchymal hemorrhage on the gradient echo images.Mass Lesion/ Mass Effect: No evidence of an intracranial mass or extra-axial fluid collection. No significant mass effect.Chronic Change: There is a remote infarct in the left ventral paramedian destiny. Patchy areas of T2 and FLAIR hyperintensity are present within white matter of both cerebral hemispheres. These are nonspecific, but most likely the result of moderate chronic microvascular ischemia.Parenchyma: There is mild generalized parenchymal volume loss. The brain parenchyma is otherwise within normal limits of signal intensity and morphology.Ventricles: Ventriculomegaly corresponds to the degree of parenchymal volume loss.Skull Base: Hypothalamic and pituitary region are grossly normal. Craniocervical junction is normal. No significant marrow replacement process.Vasculature: Major intracranial arterial structures, and dural venous sinuses show typical flow void, suggesting patency by spin echo criteria.Other: The visualized paranasal sinuses and mastoid air cells are clear. The orbits and extracranial soft tissues are unremarkable.MRA: Mild luminal irregularity in the proximal MCAs and roofer bilaterally compatible with intracranial atherosclerotic change. No evidence of flow-limiting stenosis or vessel cut off or filling defect. No aneurysm is detected.IMPRESSION:No acute intracranial infarct. Remote ischemic changes and mild volume loss.Mild luminal irregularity in the middle cerebral arteries and posterior cerebral arteries bilaterally suggests intracranial atherosclerosis. No vessel cut off or filling defect.Smalltalk Developer: TENISHA Transcribe Date/Time: Sep 07 2017 10:42ADictated by : SEAN FOWLER MDThis examination was interpreted and the report reviewed and electronically signed by: SEAN FOWLER MD on Sep 07 2017 10:45AM [id number] [facility] Magnesiumon 09-07-2017 Magnesium 2.1 mg/dL Normal 1.7-2.[address] [facility] Comment on above: Performed By: #### T NT ####[facility] [address] [place] [phone] NURSING PROGon 09-07-2017 NURSING PROG HNO ID: [id number] thor: Tabatha Carmen (Rn), RNService: NursingAuthor Type: Registered NurseType: Nursing Progress NoteFiled: 09/07/2017 7:17 AMNote Text: Nursing Progress NotePatient Name: Lsia JainckMRN: [id number] Location: [place] [address]____ Daily Note:0500-New orders to D/C ambien and xanax.0448-IVF started.0600-IV infiltrated. IV replaced. Patient stated she feeling better butstill a little foggy.This note was completed by: Tabatha Carmen RN [facility] PROGRESSon 09-07-2017 PROGRESS HNO ID: [id number] thor: Cristopher Munoz, GALDINOervice: Hospital MedicineAuthor Type: PhysicianType: Progress NotesFiled: 09/07/2017 5:47 PMNote Text:SERVICE DATE: 09/07/2017SERVICE TIME: 5:46 PMHOSPITAL MEDICINE PROGRESS NOTENIGHT AND WEEKEND COVERAGE: Nights: Please contact pager [phone].Reason for Admission/Observation: TIAHOSPITAL DAY ZERO: 09/05/2017Presentation: Suspected TIA, also may have had episode of hypoglycemia.Episode of right eye vision disturbance lasting 10 minutes (amaurosisfugax) followed by slurred speech and difficulty with word finding(lasting 10 minutes, now resolved.Hx of CVA of destiny around 2010.Consultants:Dr. Hydeposition: HomeSUBJECTIVEInterval HPI:No chest pain or shortness of breath.OBJECTIVEReviewed lines, drains, AND airways. Need to be continued .BP 125/70 Pulse 86 Temp 36.6 ?C (97.9 ?F) (Oral) Resp 18 Ht144.8 cm (4' 9") Wt 92.7 kg (204 lb 6.4 oz) SpO2 97% BMI 44.23kg/m?GENERAL: Alert, no distress, cooperativeNECK: No Jugulovenous distentionLUNGS: Clear respiratory distress -NoCARDIAC: RRR without murmur, rub, or gallopABDOMEN: Abdomen soft, non-tender, BS normal, No masses or organomegalyEXTREMITIES:no edema No cordsNEURO: Grossly normal cognition, motor function, and cranial nerves.DATA:Diagnostic tests reviewed for today's visit:Most recent labsOverview was reviewed. Pulse oxMost recent Xrays/CTCardiac MonitorMost recent EKGCARE COORDINATION:No Patient Care Coordination Note on file.ASSESSMENT AND PLANOverview, Assessment AND Plan, all Hosp ProblemsActive Hospital Problems as of 09/07/2017 Noted - Resolved A * (Principal)TIA (transient ischemic attack) 09/05/2017 - Present Overview Possible TIA, also may have had episode of hypoglycemia.Episode of right eye vision disturbance, slurred speech and difficultywith word finding, now resolved.Hx of CVA of destiny around 2010.CT brain NAP.On statin and ASA.PlanStroke care path. MRI/MRA brain, US b/l carotids, ECHO, tele, FLP, HbA1c.Neuro consult Current Assessment AND PlanAssessment: MRI completed and no significant findings with neurologicconsultation completedPLAN:Discharge on Plavix and increased dose of statin B Type 2 diabetes mellitus with diabetic neuropathy, without long-termcurrent use of insulin (HCC) 06/04/2016 - Present Overview hba1c 8.5 on 06/2017.D/c glimepiride as pt recently started and sounds like she has hadhypoglycemic episodes. Continue januvia +SSI.Recheck HbA1c. Current Assessment AND PlanHemoglobin A1C (%)Date Value05 8.002/07/2013 6.407/06/2012 6.102/07/2012 6.3 HGBA1C (%)Date Value03 8.510/08/2016 8.305/ 7.801/ 7.9 Assessment: Better control hospital probably because of decreased caloricintakePLAN:Counseled patient D Acute kidney injury superimposed on CKD (HCC) 09/05/2017 - Present Overview Cr has been raising this year.Metformin recently d/c'ed.Hold SOFIA, avoid nephrotoxins. Current Assessment AND PlanRecent Labs 09/06/1804UN 20 19 23CREAT 1.42* 1.47* 1.52*CA 9.3 9.3 9.6MG 2.1 -- --Assessment: Baseline is about 1.45PLAN: She is back to her June baseline L Essential hypertension 06/04/2016 - Present Current Assessment AND PlanAssessment: Adequate control with current regimenPLAN:Continue current medication M SEE (generalized anxiety disorder) 11/05/2016 - Present Current Assessment AND PlanAssessment: Long-term Xanax usePLAN:Continue Ambien and XanaxMedication and Non-Pharmacologic VTE Prophylaxis/AnticoagulantsA nticoagulant AND Antiplatelet Medications Start Dose Route Frequency Ordered Stop 09/07/17 1730 clopidogrel 75 mg tab(s) (PLAVIX) 75 mg ORAL DAILY 09/07/17 1723 -- 09/05/17 2300 heparin 5,000 Units injection (Medical At Risk ) 5,000 Units SUBCUTANEOUS EVERY 12 HOURS 09/05/17 2256 --09/05/17 2300 vte non-pharmacologic prophylaxis - none indicated (ak,oh)VTE Prophylaxis: VTE prophylaxis appropriatePlan of care discussed with: Patient, Family/Other: Granddaughter, JONNY Vela and Consultants: Dr. Mcneill: Cristopher Munoz MD PATIENT NAME: Lisa ShirleyDATE: September 07, 2017 : 5:46 PM PAGER/CONTACT #: [facility] PROGRESS HNO ID: [id number] thor: Magui Dalal (Rn), RNService: NursingAuthor Type: Registered NurseType: Progress NotesFiled: 09/07/2017 4:21 AMNote Text:3:20am-Called to room patient not feeling well. Patient feels foggy. Had ac/o chest pain, non radiating. Bloodsugar was 112 and OJ given, Vitalsigns taken and WNL, see flowsheet. EKG done with results NSR withoccasional PVC. Patient previously received Ativan and ambien per request.Call placed to Hospitalist Dr. Borrego.3:30am- awaiting return call.3:45am- another call placed to Dr. Borrego3:50am- return call from Dr. Borrego. MD will see patient.4:10am- MD on unit at bedside. Normal [facility] CBCon 09-06-2017 Erythrocyte distribution width Auto Ratio (RBC) 13.4 % Normal 11.5-15.[address] [facility] Comment on above: Performed By: #### Antonio BC, CMP ####[facility] [address] [place] [address]#### LIPB ####[place] [address] Erythrocytes (RBC) 4.24 10*6/uL Normal 3.90-5.20 [facility] Comment on above: Performed By: #### Antonio FRENCH, CMP ####[place] [address]#### LIPB ####[place] [address] Hematocrit (HCT) 37.8 % Normal 36.0-46.[address] [facility] Comment on above: Performed By: #### Antonio BC, CMP ####[place] [address]#### LIPB ####[place] [address] Hemoglobin mass conc (Bld) 12.4 g/dL Normal 11.5-15.[address] [facility] Comment on above: Performed By: #### C BC, CMP ####[facility] [address] [place] [address]#### LIPB ####[place] [id number] AveCNatalie [place] [address] MCH 29.2 pG Normal 26.0-34.[address] [facility] Comment on above: Performed By: #### C BC, CMP ####[facility] [address] [place] [address]#### LIPB ####[facility] AveCNatal[address] [address] MCHC mass conc (RBC) 32.8 g/dL Normal 30.5-36.0 [facility] Comment on above: Performed By: #### C BC, CMP ####[place] [address]#### LIPB ####[place] [address] [address] [place] [address] MCV 89.2 fL Normal 80.0-100.[address] [facility] Comment on above: Performed By: #### C BC, CMP ####[place] [address]#### LIPB ####[place] [address] [address] [address] Platelet mean volume (PMV) 11.7 fL Normal 9.0-12.[address] [facility] Comment on above: Performed By: #### C BC, CMP ####[facility] [address] [place] [address]#### LIPB ####[place] [address] [address] [address] Platelets 206 10*3/uL Normal 150-[address] [facility] Comment on above: Performed By: #### C BC, CMP ####[place] [address]#### LIPB ####[place] [address] [address] [place] [phone] WBC (Leukocytes) 6.28 10*3/uL Normal 3.70-11.[address] [facility] Comment on above: Performed By: #### C BC, CMP ####[facility] [address] [place] [address]#### LIPB ####[place] [phone] Comp Metabolic Panelon 09-06 Alanine aminotransferase (ALT) 10 U/L Normal 7-[address] [facility] Comment on above: Performed By: #### C BC, CMP ####[place] [address]#### LIPB ####[place] [phone] Albumin 3.9 g/dL Normal 3.9-4.[address] [facility] Comment on above: Performed By: #### C BC, CMP ####[place] [address]#### LIPB ####[place] [phone] Alkaline phosphatase (ALP) 59 U/L Normal 32-[address] [facility] Comment on above: Performed By: #### C BC, CMP ####[place] [address]#### LIPB ####[place] [phone] Anion gap 13 mmol/L Normal 9-[address] [facility] Comment on above: Performed By: #### C BC, CMP ####[place] [address]#### LIPB ####[place] [phone] Aspartate aminotransferase (AST) 14 U/L Normal 13-[address] [facility] Comment on above: Performed By: #### C BC, CMP ####[place] [address]#### LIPB ####[facility] [address] Bilirubin (total) 0.3 mg/dL Normal 0.2-1.[address] [facility] Comment on above: Performed By: #### C BC, CMP ####[place] [address]#### LIPB ####[place] [address] [address]ClevelM[address] [address] Calcium 9.3 mg/dL Normal 8.5-10.[address] [facility] Comment on above: Performed By: #### C BC, CMP ####[place] [address]#### LIPB ####[place] [address] [address] [address] Chloride 104 mmol/L Normal 97-[address] [facility] Comment on above: Performed By: #### C BC, CMP ####[place] [address]#### LIPB ####[place] [address] [address] [address] CO2 24 mmol/L Normal 22-[address] [facility] Comment on above: Performed By: #### C BC, CMP ####[place] [address]#### LIPB ####[place] [address] [address] [place] [address] Creatinine 1.47 mg/dL High 0.58-0.[address] [facility] Comment on above: Performed By: #### C BC, CMP ####[place] [address]#### LIPB ####[place] [address] [address] [place] [address] eGFR (non-black) 43 mL/min/{1.73_m2} Normal [facility] Comment on above: Performed By: #### C BC, CMP ####[facility] [address] [place] [address]#### LIPB ####[place] [id number] [place], [place] [phone] eGFR (non-black) 35 . Normal [facility] Comment on above: Result Comment: eGFR (Estimated GFR) Units of measure: mL/min/1.73 meters squaredeGFR is derived from the reexpressed MDRD Study equation using the following parameters: serum creatinine, age, gender and race. The creatinine assay has been calibrated to be traceable to IDMS.An eGFR <60 mL/min/1.73m2 for >3 months is consistent with chronic kidney disease. Refer to KDOQI guidelines for clinical interpretation.In patients with unstable renal function, e.g. those with acute kidney injury, the eGFR may not accurately reflect actual GFR. Performed By: #### C BC, CMP ####[facility] [address] [place] [address]#### LIPB ####[address] [phone] Glucose mass conc 71 mg/dL Low 74-[address] [facility] Comment on above: Result Comment: The [place] Diabetes Association (ADA) provides guidance for cutoff values for fasting glucose and random glucose. The ADA defines fasting as no caloric intake for at least 8 hours. Fasting plasma glucose results between 100 to 125 mg/dL indicate increased risk for diabetes (prediabetes).Fasting plasma glucose results greater than or equal to 126 mg/dL meet the criteria for diagnosis of diabetes. In the absence of unequivocal hyperglycemia, results should be confirmed by repeat testing. In a patient with classic symptoms of hyperglycemia or hyperglycemic crisis, random plasma glucose results greater than or equal to 200 mg/dL meet the criteria for diagnosis of diabetes.Reference: Standards of Medical Care in Diabetes 2016, [place] Diabetes Association. Diabetes Care. 2016.39(Suppl 1). Performed By: #### C BC, CMP ####[facility] [address] [place], [place] [id number]#### LIPB ####[place] [id number] [place] [phone] Potassium molar conc 4.1 mmol/L Normal 3.7-5.1 [facility] Comment on above: Performed By: #### C BC, CMP ####[facility] [address] [place] [address]#### LIPB ####[phone] Protein 6.5 g/dL Normal 6.3-8.[address] [facility] Comment on above: Performed By: #### C BC, CMP ####[place] [address]#### LIPB ####[phone] Sodium 141 mmol/L Normal 136-[address] [facility] Comment on above: Performed By: #### C BC, CMP ####[place] [address]#### LIPB ####[place] [phone] Urea nitrogen 19 mg/dL Normal 7-[address] [facility] Comment on above: Performed By: #### C BC, CMP ####[place] [address]#### LIPB ####[phone] HISTORY PHYSICALon 8 HISTORY PHYSICAL HNO ID: [id number] thor: Gabe Yu (Pa): General Internal MedicineAuthor Type: Physician AssistantType: HANDPFiled: 09/05/2017 11:39 PMNote Text: ----Attestation signed by Samantha Anand at 09/10/2017 11:52 PMCCHS STAFF PHYSICIAN NOTE OF PERSONAL INVOLVEMENT IN CAREI have reviewed the history and physical examination obtained and documented bythe physician fire assistant and I personally participated in the levy components. Chucky discussed the case and management of the patient's care.72 year old female with history of CVA in 2010 who [facility] [place], had vision disturbance to right eye lasting 10 minutes, speechwas slurred and had difficulty with word finding, resolved within an hour,transferred here for possible TIA. Metformin d/c'ed recently and started onglimepiride a few days ago. Recently noticing blood sugars on lower side withdiaphoresis.Plan:Hypogl ycemia vs TIAClose monitoring sugarsStroke care path. MRI/MRA brain, US b/l carotids, ECHO, tele, FLP, HbA1c.Neuro consultMonitor Nahun jon/Gunnar Anand MD -HOSPITAL MEDICINEHISTORY AND PHYSICAL EXAMPATIENT NAME: Lisa ShirleyMRN: [id number] DATE: 09/05/2017SERVICE TIME: 10:37 PMPrimary Care Physician: ANGÉLICA Babb COVERAGEPage [phone] for any questions between 5.30p-7.30aASSESSMENT AND PLANActive Hospital Problems Diagnosis- TIA (transient ischemic attack) Possible TIA, also may have had episode of hypoglycemia.Episode of right eye vision disturbance, slurred speech and difficultywith word finding, now resolved.Hx of CVA of destiny around 2010.CT brain NAP.On statin and ASA.PlanStroke care path. MRI/MRA brain, US b/l carotids, ECHO, tele, FLP, HbA1c.Neuro consult- Acute kidney injury superimposed on CKD (HCC) Cr has been raising this year.Metformin recently d/c'ed.Hold SOFIA, avoid nephrotoxins.- Type 2 diabetes mellitus with diabetic neuropathy, without long-termcurrent use of insulin (HCC) hba1c 8.5 on 06/2017.D/c glimepiride as pt recently started and sounds like she has hadhypoglycemic episodes. Continue januvia +SSI.Recheck HbA1c.SUBJECTIVECHIEF COMPLAINT: HAHPI: This is a 72 year old female with history of CVA in 2010 [facility] DELEON. Occurred around 5pm today. Atonset had vision disturbance to right eye lasting 10 minutes, described asblack and light flashing, now resolved. Per family pt speech was slurredand had difficulty with word finding, these symptoms resolved within anhour.Pt recently had metformin d/c'ed for worsening renal function and startedon glimepiride a few days ago. She had an episode of diaphoresis theother day. Her appetite has been decreased recently and she had not eatentoday prior to symptoms. She does not regularly check her glucose. Todayit was in the 90s which she says is low for her.CT brain NAP. CXR NAP.PAST MEDICAL HISTORY:PAST MEDICAL HISTORYDiagnosis Date- Anxiety- Chest pain- Chronic pain sensitive to Cymbalta- Degeneration of lumbar intervertebral disc- Depression- Diabetes (HCC)- Diabetic polyneuropathy associated with type 2 diabetes mellitus (HCC)- Disorder of sacrum- Essential hypertension- Fatigue- Generalized anxiety disorder sensi to Cymbalta, etc; PREFERS XANAX only tok ok 09/08- History of cerebrovascular accident- Hyperlipidemia- Hypertension- IBS (irritable bowel syndrome)- Idiopathic osteoporosis- Insomnia- Low back pain- Lumbar radiculopathy- Major depressive disorder- Morbid obesity (HCC) BMI 47- Neuropathy (HCC)- Obstructive sleep apnea syndrome- Osteoporosis- Panic state as acute reaction to stress- Sleep disorder- Stroke (HCC)- 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)- Vitamin B12 deficiency (non anemic)- Vitamin D deficiencyPAST SURGICAL HISTORY:PAST SURGICAL HISTORYProcedure Laterality Date- CHOLECYSTECTOMY HX- COLONOSCOPY usually had some polyps 2009FAMILY HISTORY:FAMILY HISTORYProblem Relation Age of Onset- Colon Cancer Father- Cancer Father- Lung cancer [OTHER] Mother- Diverticulitis [OTHER] BrotherSOCIAL HISTORY:Social HistorySubstance Use Topics- Smoking status: Never Smoker- Smokeless tobacco: Never Used Comment: Never smoked; Tobacco reviewed with patient 12/04/2015- Alcohol use No Comment: Non-drinkerMEDICATIONS: ReviewedALLERGIES:ALLERGIES Allergen Reactions- Crestor [Rosuvastat* Unknown Sensitivity- Meloxicam Unknown- Prednisone Unknown SensitivityREVIEW OF SYSTEM:PAIN ASSESSMENT: Negative for pain, history of chronic pain, or currenttreatment for a chronic pain condition.GENERAL: No weight loss, malaise or fevers.HEENT: DELEON, vision disturbance now resolved.NECK: Negative for lumps, goiter, pain and significant neck swellingRESPIRATORY: Negative for cough, hemoptysis, wheezing or shortness ofbreathCARDIOVASCULAR: Negative for chest pain, leg swelling or palpitations.GI: No nausea, vomiting, or diarrheaGU: No history of dysuria, frequency or incontinence.MUSCULOSKELETA L: Negative for joint pain or swelling, back pain or musclepain.SKIN: Negative for lesions, rash, and itching.PSYCH: Negative for sleep disturbance, mood disorder and recentpsychosocial stressors.HEMATOLOGY/LYMPHO LOGY: Negative for prolonged bleeding, bruising easily orswollen nodes.ENDOCRINE: Negative for cold or heat intolerance, polyuria, polydipsia andgoiter.NEURO: slurred speech and word finding difficulty now resolved.OBJECTIVEPHYSICAL EXAM: BP 160/69 Pulse 84 Temp (Src) 98.5 (Oral) Resp 18 Wt 207 lb 12.8 oz (94.3kg) SpO2 98%GENERAL: alert, no distress, cooperativeSKIN: Skin color, texture, turgor normal. No rashes or lesions.NECK: no jugulovenous distention, suppleBACK: Back symmetric, Normal curvature, ROM normal, No CVAT.LUNGS: Lungs clear to auscultation. Good diaphragmatic excursion.CARDIAC: RRR; no rubs, murmurs, or gallopsABDOMEN: Abdomen soft, non-tender. BS normal. No masses or organomegaly.EXTREMITIES: Extremities normal. No deformities, edema, clubbing or skindiscoloration., No ulcersNEURO: No focal deficits. Sensation grossly intact., Cranial nervesII-XII intactDATA:Diagnostic tests reviewed for today's visit:Most recent labsMost recent imagingMost recent EKGCBC:WBC 6.4 09/05/2017Hemoglobin 13.4 09/05/2017Hematocrit 40.6 09/05/2017Platelet Count 205 09/05/2017CMP:Sodium 134 09/05/2017Potassium 4.0 09/05/2017BUN 23 09/05/2017Creatinine 1.52 09/05/2017Glucose 102 09/05/2017Chloride 102 09/05/2017CO2 24 09/05/2017VTE Prophylaxis: Heparin 5000 units Sub Q BIDDisposition: HomePlan of care discussed with: Patient and RNSIGNATURE: NATHAN BaldwinATE: September 05, 2017TIME: 10:37 PM Normal [facility] Hemoglobin A1con 09-06-2017 Glucose mass conc 183 mg/dL Normal [facility] Comment on above: Result Comment: eAG: (Estimated average glucose) is a calculated value from HgbA1c and is union contract representative of the average blood glucose level in the last 2-3 month period. Performed By: #### H BA1C ####[place] [phone] Hemoglobin A1c/Hemoglobin.total mass fraction (Bld) 8.0 % High 4.3-5.[address] [facility] Comment on above: Performed By: #### H BA1C ####[place] [phone] Lipid Panel, [place] 018 Cholesterol 175 mg/dL Normal <[address] [facility] Comment on above: Result Comment: <200 mg/dL, Desirable 200-239 mg/dL, Borderline high>239 mg/dL, High Performed By: #### Antonio BC, CMP ####[facility] [address] [place] [address]#### LIPB ####[place] [phone] Fasting Time Unknown Normal [facility] Comment on above: Performed By: #### C BC, CMP ####[place] [address]#### LIPB ####[place] [phone] HDL Cholesterol 51 mg/dL Normal >[address] [facility] Comment on above: Result Comment: 40-5 9 mg/dL, Acceptable>59 mg/dL, High: Negative risk factor for coronary heart disease<40 mg/dL, Low: Positive risk factor for coronary heart disease Performed By: #### C BC, CMP ####[facility] [address] [place] [address]#### LIPB ####[facility] [place] [phone] LDL Cholesterol 91 mg/dL Normal <[address] [facility] Comment on above: Result Comment: <100 mg/dL, Optimal 100-129 mg/dL, Near optimal/above optimal 130-159 mg/dL, Borderline high 160-189 mg/dL, High>189 mg/dL, Very highSecondary prevention optimal LDL Cholesterol levels are recommended to be < 70 mg/dL Performed By: #### C BC, CMP ####[place] [address]#### LIPB ####[place] [phone] LDL:HDL Ratio 1.78 Normal <2.[address] [facility] Comment on above: Result Comment: Refe rence:1. National Cholesterol Education Program ATP III Guideline At-A-Glance Quick Desk Reference: National Heart, Lung, and Blood [place]. National Institutes of Health. 2001: NIH Publication No. 01-3305.2. An International Atherosclerosis Society position paper: global recommendations for the management of dyslipidemia: executive summary, Atherosclerosis. 2014: 232(2):410-413. Performed By: #### C BC, CMP ####[facility] [address] [place] [address]#### LIPB ####[place] [id number] [place] [phone] Non HDL Cholesterol 124 mg/dL Normal <130 [facility] Comment on above: Result Comment: <130 mg/dL, Optimal 130-159 mg/dL, Near optimal/above optimal 160-189 mg/dL, Borderline high 190-219 mg/dL, High>219 mg/dL, Very highSecondary prevention optimal non HDL Cholesterol levels are recommended to be < 100 mg/dL Performed By: #### C BC, CMP ####[place] [address]#### LIPB ####[place] [address] TC:HDL Ratio 3.43 Normal <5.[address] [facility] Comment on above: Performed By: #### C BC, CMP ####[place] [address]#### LIPB ####[place] [address] Triglyceride 167 mg/dL High <[address] [facility] Comment on above: Result Comment: <150 mg/dL, Normal 150-199 mg/dL, Borderline high 200-499 mg/dL, High>499 mg/dL, Very high Performed By: #### C BC, CMP ####[place] [address]#### LIPB ####[place] [address] VLDL Cholesterol 33 mg/dL High <[address] [facility] Comment on above: Performed By: #### C BC, CMP ####[place] [address]#### LIPB ####[place] [address] NURSING PROGon 09-06-2017 NURSING PROG HNO ID: [id number] thor: Candie Wray (Rn), RNService: NursingAuthor Type: Registered NurseType: Nursing Progress NoteFiled: 09/06/2017 8:27 PMNote Text: Nursing Progress NotePatient Name: Lisa BostonmariahMRN: [id number] Location: [place] [id number]____ Daily Note:0800- Patient awake and alert. Denies pain. Neuro assessment WNL. Deniesneeds.1000- Off unit for US [id number]- Patient resting comfortably. Denies needs. Call light in reach.1400- No new changes in assessment. Call light in reach.1600- Sitting at bedside. Call light in reach. Tele NSR.1800- No acute s./s of distress. No new changes in neuro assessment.This note was completed by: Candie Wray RN [facility] NURSING PROG O ID: [id number] thor: Tabatha Carmen (Rn), RNService: NursingAuthor Type: Registered NurseType: Nursing Progress NoteFiled: 09/06/2017 7:44 PMNote Text: Nursing Progress NotePatient Name: Lisa Rodas LudyclementeclaribelabisaiMRN: [id number] Location: [id number]____ Daily Note:2230-Neuro assessment WNL. Patient denied headache. Speech Clear.0030-Patient alert and oriented. Calls for assist to bathroom. Neuroassessment WNL. SR on telemetry.0230-Neuro assessment unchanged. SR on telemetry.0430-Neuro assessment unchanged. SR on telemetry,0630-Neuro assessment WNL. Patient denied headache.This note was completed by: Tabatha Carmen RN [facility]SING [facility]IVERSIDEO ID: [id number] thor: Tabatha Carmen (Jonny), RNService: NursingAuthor Type: Registered NurseType: Nursing Progress NoteFiled: 09/05/2017 10:11 PMNote Text: Nursing Progress NotePatient Name: Lisa Rodas FernMRN: [id number] Location: [id number]____ Transfer Note:Patient transferred into room/unit 268/2North in stable condition.Actions taken: No futher actions taken at this time. Will continue tomonitor and check with patient.This note was completed by: Tabatha Carmen RN [facility] NUTRITIONon 09-06-2017 NUTRITION HNO ID: [id number] thor: Lizzy Fairchild (Danika)Service: Nutrition TherapyAuthor Type: Registered DietitianType: NutritionFiled: 09/06/2017 9:10 AMNote Text:NUTRITION THERAPYFOLLOW-UP NOTESERVICE DATE: 09/06/2017SERVICE TIME: 9:05 amAnthropometrics:Current Weight: Weight: 94.3 kg (207 lb 12.8 oz)Body mass index is 41.97 kg/m?.HT/WT/BMI WEIGHT1 104.237 kg3/01/2017 102.694 kg5/ 101.878 kg6/ 102.785 kg10/08/2016 100.064 kg10/ 100.608 kg11/ 99.066 kg3/09/2017 96.979 kg4/09/2017 97.614 kg8% weight loss past year clinically not significantAdmitting Diagnosis: TIAAcute kidney injury superimposed on CKDDMPresent Diet Order: Heart Healthy 2 gm NaEating 100% hereNursing Admission Assessment Malnutrition Score Tool: 4Plan of Care: RecommendationMonitor intake.Reviewed physician progress notes and labs.Will follow up in 3 days or as consulted.Discharge Plan:Heart Healthy 2 gm Na, Carbohydrate ControlledMNT Billing Type: Initial Assess/15 min 1 unitSIGNATURE: Lizzy Fairchild RD, LD PATIENT NAME: Lisa ShirleyDATE: September 06, 2017 : 9:07 AM [facility] PROGRESSon 09-06-2017 PROGRESS HNO ID: [id number] thor: Robbi Forde: [facility] Type: PhysicianType: Progress NotesFiled: 09/06/2017 1:06 PMNote Text:[facility]PROESS NOTESERVICE DATE: 09/06/2017SERVICE TIME: 12:55 PMHospital Medicine/Primary Attending: Robbi Forde MDNIGHT AND WEEKEND COVERAGE:Nights: Please contact pager [phone].SubjectiveINTERVAL HPI: Sitting upright in bedside chair, no visual disturbance orheadache at this time. Tolerating food, denies chest pain or shortness ofbreath.MEDICATIONS: ReviewedObjectivePHYSICAL EXAM: BP 124/68 Pulse 75 Temp (Src) 98.2 (Oral) Resp 18 Wt 207 lb 12.8 oz (94.3kg) SpO2 95%GENERAL: Alert, no distress, cooperative, morbid obesitySKIN: Skin color, texture, turgor normal. No rashes or lesions.HEAD/SINUSES: No significant findings, NC/ATEYES: EOMI, sclera normalNOSE: Nares normal. Septum midline.OROPHARYNX: Lips, mucosa, and tongue normal.NECK: No jugulovenous distention, SuppleBACK: Back symmetric, Normal curvature, ROM normalLUNGS: Bilateral air entry, no wheezing notedCARDIAC: Normal S1 and S2; no rubs, murmurs, or gallopsABDOMEN: Abdomen soft, non-tender, BS normal, obese abdomenEXTREMITIES: Extremities normal, no deformities, edemaNEURO: Grossly normal cognition, motor function, and cranial nervesIII-XIIPULSES: 2+ radialThe remainder of the physical exam is noncontributory.Lines, Drains, and Airways No matching active lines, drains, or airwaysDATA:Diagnostic tests reviewed for today's visit:Most recent labs and imaging results.Recent Labs 509 823WBC 6.28 6.4HB 12.4 13.4PLT 206 205NA 141 134*K 4.1 4.0CO2 24 24BUN 19 23CREAT 1.47* 1.52*AST 14 --ALT 10 --TBILI 0.3 --ALKPHOS 59 --US Carotic Bilateral (09/06/17): IMPRESSION:1. ?No hemodynamically significant lesions are seen.2. ?No significant plaque formation distal common proximal internalcarotid arteries.CT Brain w/o contrast (09/05/17):IMPRESSION: ?No definitive acute intracranial abnormality. ?A report is made available to the emergency department physician at timeofdictation.Chest XR 2-view (09/05/17): ?IMPRESSION:No acute radiographic abnormality.Assessment/Plan Active Problems:TIA (transient ischemic attack) POA: YesSuspected TIA, also may have had episode of hypoglycemia.Episode of right eye vision disturbance lasting 10 minutes (amaurosisfugax) followed by slurred speech and difficulty with word finding(lasting 10 minutes, now resolved.Hx of CVA of destiny around 2010.CT brain NAP.On statin and ASA.PlanStroke care path. MRI/MRA brain pending, US B/L carotid: negative, ECHOpending, tele, HbA1c recently 8.5 (06/2017). Lipid Panel: Chol: 175, HDL:51, LDL: 91Neurology consultedType 2 diabetes mellitus with diabetic neuropathy, without long-termcurrent use of insulin (HCC) POA: LoeIhN2l: 8.5 on 06/2017.D/c glimepiride as pt recently started and sounds likeshe has had hypoglycemic episodes. Continue januvia +SSI.No need to recheck HbA1c.Acute kidney injury superimposed on CKD (HCC) POA: UnknownCr has been raising this year.Metformin recently d/c'ed.Hold SOFIA-I, avoid nephrotoxinsHTN, benign essentialStable, continue home medications with holding parameters.Generalized anxiety disorderContinue home medication of Xanax, advised benzo cessation, fallprecautions.Medication and Non-Pharmacologic VTE Prophylaxis/AnticoagulantsA nticoagulant AND Antiplatelet Medications Start Dose Route Frequency Ordered Stop 09/05/17 2300 aspirin, enteric coated 81 mg tab(s) (ASPIRIN, ENTERICCOATED) 81 mg ORAL DAILY 09/05/172255 -- 09/05/17 2300 heparin 5,000 Units injection (Medical At Risk ) 5,000 Units SUBCUTANEOUS EVERY 12 HOURS 09/05/172255 --09/05/17 2300 vte non-pharmacologic prophylaxis - none indicated (fl,oh)VTE Prophylaxis: VTE prophylaxis appropriateDisposition: Home tomorrow after Neuro workupPlan of care discussed with: Patient and Case ManagementSIGNATURE: Robbi Forde MD PATIENT NAME: Lisa ShirleyDATE: September 06, 2017 : 12:55 PM PAGER/CONTACT #: [id number] ext [phone] Normal [facility] Troponin Ton 09-06-2017 Troponin T.cardiac mass conc ug/L Normal 0.000-0.[address] [place] [address] Comment on above: Performed By: #### T NT ####[facility] [id number] [address] Troponin T.cardiac mass conc ug/L Normal 0.000-0.[address] [place] [address] Comment on above: Performed By: #### T NT ####[facility] [id number] [place] [address] US CAROTID BILon 09-06-2017 Bilirubin (direct) * * *Final Report* * *DATE OF EXAM: Sep 06 2017 11:20AM BASILIA 1077 - US CAROTID MIKE / REASON: TIA (transient ischemic attack) * * * * Physician Interpretation * * * * Duplex Ultrasound with Color Flow analysis of Carotid Arteries:HISTORY: TIA (transient ischemic attack)TECHNIQUE:Grayscale and color-flow Doppler ultrasound were used to examine the carotid arterial systems bilaterally.Images stored and permanent archive.RESULT:FINDINGS:Joyce que: No significant amount of plaque in the distal common and proximal internal carotid arteries is seen bilaterallyICA Peak Systolic Velocity (cm/sec)Right: 93 Left: 82ICA End Diastolic Velocity (cm/sec)Right: 29 Left: 25CCA Peak Systolic Velocity (cm/sec)Right: 63 Left: 79ECA Peak Systolic Velocity (cm/sec)Right: 56 Left: 57VertebralsRight: Antegrade Left: AntegradeICA/CCA Systolic Velocity RatioRight: 1.5 Left: 1.0ICA Stenosis Estimation per NASCET criteria.Right: <30% Left: <30%IMPRESSION:1. No hemodynamically significant lesions are seen.2. No significant plaque formation distal common proximal internal carotid arteries.Smalltalk Developer: TENISHA Transcribe Date/Time: Sep 06 2017 11:34ADictated by : Kathryn SALINAS examination was interpreted and the report reviewed and electronically signed by: SANJIV LOPEZ DO on Sep 06 2017 11:45AM [id number] Normal [facility] Vital Signs Date Time Vital Sign Value Performing Clinician Facility 08-08-2021 20:20-0400 Diastolic blood pressure 90 mm[Hg] [facility] Work Phone: 08-08-2021 20:20-0400 Heart rate 90 /min [facility] Work Phone: 08-08-2021 20:20-0400 Respiratory rate 18 /min [facility] Work Phone: 08-08-2021 20:20-0400 SaO2% (BldA) [Mass fraction] 98 % [facility] Work Phone: 08-08-2021 20:20-0400 Systolic blood pressure 160 mm[Hg] [facility] Work Phone: 08-08-2021 17:11-0400 Body height 157.48 cm [facility] Work Phone: 08-08-2021 17:11-0400 Body mass index (BMI) [Ratio] 36.9 kg/m2 [facility] Work Phone: 08-08-2021 17:11-0400 Body temperature 98.2 [degF] [facility] Work Phone: 08-08-2021 17:11-0400 Body weight 91.62 kg [facility] Work Phone: 03-09-2020 06:39-0500 Body temperature 98.6 [degF] [facility] Comment on above: Order Comment: Speci men Type: VENOUS BLOOD SPECIMEN Performed By: #### 2 4344-4 ####[facility] LABORATORYCLIA [id number] [place] [address] 03-08-2020 18:32-0500 Body temperature 100.76 [degF] [facility] Comment on above: Order Comment: Speci men Type: BLOOD SPECIMEN Performed By: #### 5 8410-2 #### [facility] CLIA [id number] [address] [id number] NEGATED: Highlighted [id number] 12:16-0400 BMI (Body Mass Index) 41.36 kg/m2 Pete Diaz [facility] Work Phone: NEGATED: Highlighted [id number] 12:16-0400 BP Diastolic 81 mm[Hg] [facility] Work Phone: NEGATED: Highlighted [id number] 12:16-0400 BP Systolic 133 mm[Hg] [facility] Work Phone: NEGATED: Highlighted [id number] 12:16-0400 Height 152.4 cm [facility] Work Phone: NEGATED: Highlighted [id number] 12:16-0400 Height 152 cm [facility] Work Phone: NEGATED: Highlighted [id number] 12:16-0400 Pulse (Heart Rate) 101 /min Petenaomi Bagley [facility] Work Phone: NEGATED: Highlighted [id number] 12:16-0400 Weight 95.71 kg [facility] Work Phone: NEGATED: Highlighted [id number] 12:16-0400 Weight 96 kg [facility] Work Phone: Encounters Encounter Date Encounter Type Care Provider Facility Start: 08-05-2024 End: 08-05-[address] Darvin Brice MD Work Phone: [facility] Work Phone: Start: 08-05-2024 End: 08-05-2024 Departed Referred Jean-Paul Rothman MD [facility] Start: 08-05-2024 End: 08-05-2024 ambulatory Jean-Paul STUART Facility:[facility] Start: 05-06-2024 ambulatory Jean-Paul STUART Facil ity:[facility] Start: 05-06-2024 Registered Referred Jean-Paul Rohtman [facility] Start: 02-04-2024 ambulatory Jean-Paul STUART Facil ity:[facility] Start: 11-03-2023 End: 11-03-2023 ambulatory Darvin Brice Facility:[facility] Start: 05-06-2023 End: 05-06-2023 ambulatory [facility] Work Phone: Start: 05-06-2023 End: 05-06-2023 Departed Referred [facility] Start: 02-05-2023 End: 02-05-2023 ambulatory [facility] Work Phone: Start: 02-05-2023 End: 02-05-2023 Departed Referred [facility] Start: 01-16-2023 End: 01-16-2023 Departed Referred [facility] Start: 01-16-2023 Registered Referred [facility] Start: 01-07-2023 End: 01-07-2023 ambulatory [facility] Work Phone: Start: 01-07-2023 End: 01-07-2023 Departed Referred [facility] Start: 11-07-2022 End: 11-07-2022 ambulatory [facility] Work Phone: Start: 11-07-2022 End: 11-07-2022 Departed Referred [facility] Start: 08-04-2022 End: 08-04-2022 ambulatory [facility] Work Phone: Start: 08-04-2022 End: 08-04-2022 Departed Referred [facility] Start: 05-06-2022 End: 05-06-2022 Departed Referred [facility] Start: 08-08-2021 End: 08-08-2021 Emergency department patient visit [facility] Start: 09-29-2018 End: 09-29-2018 Patient encounter procedure Lorena Griffin MD Work Phone: [facility] Work Phone: Start: 09-05-2017 End: 09-07-2017 Ambulatory [facility] Procedures Date Procedure Procedure Detail Performing Clinician Start: 05-06-2024 Measurement of renal function Dr. Darvin Brice MD Work Phone: Comment on above: GFR Calc Start: 01-16-2023 Urine culture Start: 01-07-2023 Urine culture Start: 08-08-2021 CT of head without contrast Start: 03-19-2020 Antibody screen Comment on above: Order Comment: Speci men Type: SWAB OF INTERNAL NOSE Performed By: #### S APCR #### [facility] CLIA [id number] [address] [place] [address] Start: 03-09-2020 Antibody screen Comment on above: Order Comment: Speci men Type: SWAB OF INTERNAL NOSE Performed By: #### S APCR #### [facility] CLIA [id number] [address] [place] [address] Start: 09-29-2018 End: 09-29-2018 Blood pressure within normal parameters - no follow-up required Lorena Griffin MD Work Phone: Start: 09-29-2018 End: 09-29-2018 BMI documented as above normal parameters - follow-up documented Lorena Griffin MD Work Phone: Start: 09-29-2018 End: 09-29-2018 Documentation of current medications Lorena Griffin MD Work Phone: Start: 09-29-2018 End: 09-29-2018 Pain assessment not documented - reason not given Lroena Griffin MD Work Phone: Start: 09-29-2018 End: 09-29-2018 Tobacco non-user Lorena Griffin MD Work Phone: Plan of Treatment Date Care Activity Detail Author Start: 09-29-2018 End: 09-29-2018 Appointment Appointment [facility] Work Phone: Patient Education ED Seizure New Onset Unknown ... [facility] Work Phone: Patient referral [facility] Work Phone: Immunizations Immunization Date Immunization Notes Care Provider Lou khoury No information available. Pete Diaz [facility] Work Phone: Payers Date Payer Category Payer Medicaid [id number] 2023 Medicare [id number] 2023 Self-pay [id number] 2023 Unknown [id number] Unknown SELF PAY INSURANCE [id number] Unknown [id number] Unknown [id number] Unknown [id number] Unknown [id number] Social History Date Type Detail Facility Start: 08-08-2021 End: 08-08-2021 Assertion Unknown if ever smoked [facility] Work Phone: Start: 03-23-2020 None [facility] Start: 03-27-2020 Alone;- [facility] Start: 08-28-2020 Non-smoker [facility] Start: 02-06-1946 Sex Assigned At Female [facility] Start: 08-08-2021 Tobacco smoking stat us NHIS Never smoked tobacco (finding) [facility] Mental Status Date Assessment Result Facility 08-08-2021 Cognitive function Voice/Name [facility] Work Phone: Progress note 11-08-2020 Note Date & Type Note Facility 11-08-2020 Note HNO ID: [id number] Author: Tiffani Braden PA-C Service: ? Author Type: Physician [employer] Type: Progress Notes Filed: 11/08/2020 1:06 PM Note Text: Throat Problem HPI Resident of [facility]. Alisha Akins present for encounter. Lisa Shirley is a 75 year old female here today for Throat Problem. Has had dysphagia with solids/liquids for the past few years. History positive for cerebellar infarction 2019. Pt includes dysphagia started prior to this. Had barium swallow at [place] 09/2020, which showed mild-moderate oropharyngeal dysphagia as well as significant esophageal retention. GI consult for endoscopy was advised. Is currently on mechanical soft diet at [place] and with diet denies choking, but admits to some regurgitation of non-digested foods. H/o esophageal dilation a few years a go which per patient did not help much. BMs are occasionally constipated, no blood. Does not believe she is having one BM daily, but is not sure. Aidgiulia states she is not and last BM was yesterday. Takes Miralax PRN, colace daily with minimal relief. Denies current emesis. OV Dr. Salmeron 06/29/2020 Lisa Shirley is a 75 year old female who presents for Vomiting, Poor oral intake, 23 pound wt loss since Mar, and Evaluate for a colonoscopy. ? She had an episode of fall 4 months ago when she had left trimalleolar ankle fracture for which she had open reduction internal fixation 03/19/2020. She c/o- difficulty swallowing food more than 3 years ago. She says that she had upper endoscopy and had esophageal stretching but it did not help. She persists with her symptoms which although are stable. ? Following her stroke, she had dysphagia and modified barium was abnormal. She was seen by speech therapist who recommended soft mechanical diet. She admits to not liking the modified diet. She has lost 23 pounds since her illness ? She has family history of colon cancer and had last colonoscopy in June 2017 at [place], [place], which was normal. She was advised to have repeat colonoscopy in 5 years. ? ? Record Review: [facility] records reviewed Current Outpatient Medications Medication Sig - acetaminophen (TYLENOL) 500 mg tablet Take by mouth. - bisacodyl (DULCOLAX) 10 mg supp by RECTAL route. - magnesium hydroxide (MOM) 400 mg/5 mL suspension Take by mouth. - nortriptyline (PAMELOR) 10 mg capsule - OLANZapine (ZYPREXA) 5 mg tablet - potassium chloride 20 mEq TbER Take by mouth. - traZODone (DESYREL) 50 mg tablet - ALPRAZolam (XANAX) 0.25 mg tablet - docusate sodium (COLACE) 100 mg capsule Take 100 mg by mouth twice daily. - mineral oil (FLEET MINERAL OIL ENEMA) enema 133 mL by RECTAL route one time only. - ondansetron (ZOFRAN) 4 mg tablet Take by mouth every 6 hours. - insulin glargine (LANTUS) 100 unit/mL injection Inject 6 Units subcutaneously daily at bedtime. - atorvastatin (LIPITOR) 80 mg tablet 1 tablet by ORAL/FEEDING TUBE route daily at bedtime. - losartan (COZAAR) 100 mg tablet Take 1 tablet by mouth once daily. - dilTIAZem CD (CARDIZEM CD, CARTIA XT) 180 mg 24 hr capsule Take 1 capsule by mouth once daily. - polyethylene glycol 3350 (MIRALAX ORAL) Take 1 Packet by mouth once daily. - calcium carbonate (CALCIUM 600) 600 mg calcium (1,500 mg) tab Take 600 mg by mouth three times daily. No current facility-administered medications for this visit. ALLERGIES Allergen Reactions - Sofia Inhibitors Contraindication-Medical Surgical Chronic kidney disease - Actos [Pioglitazone] Intolerance - Buspar [Buspirone] Intolerance rem behavior disorder - Crestor [Rosuvastat* Unknown Sensitivity - Glimepiride Intolerance - Glipizide Intolerance - Lexapro [Escitalopr* Mental Status Change - Meloxicam Unknown - Metformin Contraindication-Medical Surgical Chronic kidney disease - Nsaids (Non-Steroid* Contraindication-Medical Surgical Chronic kidney disease - Prednisone Unknown Sensitivity - Seroquel [Quetiapin* Intolerance Social History Tobacco Use - Smoking status: Never Smoker - Smokeless tobacco: Never Used - Tobacco comment: Never smoked; Tobacco reviewed with patient 12/04/2015 Vaping Use - Vaping Use: Never used Substance Use Topics - Alcohol use: No Comment: Non-drinker - Drug use: No PAST MEDICAL HISTORY Diagnosis Date - Anxiety - Chest pain - Chronic pain sensitive to Cymbalta - Degeneration of lumbar intervertebral disc - Depression - Diabetes (HCC) - Diabetic polyneuropathy associated with type 2 diabetes mellitus (HCC) - Disorder of sacrum - Essential hypertension - Fatigue - Generalized anxiety disorder sensi to Cymbalta, etc; PREFERS XANAX only tok ok 09/08 - History of cerebrovascular accident - Hyperlipidemia - Hypertension - IBS (irritable bowel syndrome) - Idiopathic osteoporosis - Insomnia - Low back pain - Lumbar radiculopathy - Major depressive disorder - Morbid obesity (HCC) (more content not included)... [facility] Progress note 06-29-2020 Note Date & Type Note Facility 06-29-2020 Note HNO ID: [id number] Author: Katia Salmeron Service: ? Author Type: Physician Type: Progress Notes Filed: 06/29/2020 3:09 PM Note Text: HPI:Lisa Shirley is a 75 year old female who presents for Vomiting, Poor oral intake, 23 pound wt loss since Mar, and Evaluate for a colonoscopy. She had an episode of fall 4 months ago when she had left trimalleolar ankle fracture for which she had open reduction internal fixation 03/19/2020. She c/o- difficulty swallowing food more than 3 years ago. She says that she had upper endoscopy and had esophageal stretching but it did not help. She persists with her symptoms which although are stable. Following her stroke, she had dysphagia and modified barium was abnormal. She was seen by speech therapist who recommended soft mechanical diet. She admits to not liking the modified diet. She has lost 23 pounds since her illness She has family history of colon cancer and had last colonoscopy in June 2017 at [place], [place], which was normal. She was advised to have repeat colonoscopy in 5 years. PAST MEDICAL HISTORY Diagnosis Date - Anxiety - Chest pain - Chronic pain sensitive to Cymbalta - Degeneration of lumbar intervertebral disc - Depression - Diabetes (HCC) - Diabetic polyneuropathy associated with type 2 diabetes mellitus (HCC) - Disorder of sacrum - Essential hypertension - Fatigue - Generalized anxiety disorder sensi to Cymbalta, etc; PREFERS XANAX only tok ok 09/08 - History of cerebrovascular accident - Hyperlipidemia - Hypertension - IBS (irritable bowel syndrome) - Idiopathic osteoporosis - Insomnia - Low back pain - Lumbar radiculopathy - Major depressive disorder - Morbid obesity (HCC) BMI 47 - Neuropathy - Obstructive sleep apnea syndrome - Osteoporosis - Panic state as acute reaction to stress - Sleep disorder - Stroke (HCC) - 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) - Vitamin B12 deficiency (non anemic) - Vitamin D deficiency PAST SURGICAL HISTORY Procedure Laterality Date - CHOLECYSTECTOMY HX - COLONOSCOPY usually had some polyps 2008 - PICC LINE INSERTION (PICC TEAM) ([place]) 03/12/2020 Allergies: ALLERGIES Allergen Reactions - Sofia Inhibitors Contraindication-Medical Surgical Chronic kidney disease - Actos [Pioglitazone] Intolerance - Buspar [Buspirone] Intolerance rem behavior disorder - Crestor [Rosuvastat* Unknown Sensitivity - Glimepiride Intolerance - Glipizide Intolerance - Lexapro [Escitalopr* Mental Status Change - Meloxicam Unknown - Metformin Contraindication-Medical Surgical Chronic kidney disease - Nsaids (Non-Steroid* Contraindication-Medical Surgical Chronic kidney disease - Prednisone Unknown Sensitivity - Seroquel [Quetiapin* Intolerance Medications: acetaminophen (TYLENOL) 500 mg tablet Take by mouth. bisacodyl (DULCOLAX) 10 mg supp by RECTAL route. magnesium hydroxide (MOM) 400 mg/5 mL suspension Take by mouth. nortriptyline (PAMELOR) 10 mg capsule OLANZapine (ZYPREXA) 5 mg tablet potassium chloride 20 mEq TbER Take by mouth. traZODone (DESYREL) 50 mg tablet ALPRAZolam (XANAX) 0.25 mg tablet docusate sodium (COLACE) 100 mg capsule Take 100 mg by mouth twice daily. mineral oil (FLEET MINERAL OIL ENEMA) enema 133 mL by RECTAL route one time only. ondansetron (ZOFRAN) 4 mg tablet Take by mouth every 6 hours. atorvastatin (LIPITOR) 80 mg tablet 1 tablet by ORAL/FEEDING TUBE route daily at bedtime. losartan (COZAAR) 100 mg tablet Take 1 tablet by mouth once daily. dilTIAZem CD (CARDIZEM CD, CARTIA XT) 180 mg 24 hr capsule Take 1 capsule by mouth once daily. polyethylene glycol 3350 (MIRALAX ORAL) Take 1 Packet by mouth once daily. calcium carbonate (CALCIUM 600) 600 mg calcium (1,500 mg) tab Take 600 mg by mouth three times daily. FAMILY HISTORY Problem Relation Age of Onset - Colon Cancer Father - Cancer Father - other (Lung cancer) Mother - other (Diverticulitis) Brother Employer And Job Title: None on file Years Of Education Completed: Not specified Marital Status: Social History Tobacco Use - Smoking status: Never Smoker - Smokeless tobacco: Never Used - Tobacco comment: Never smoked; Tobacco reviewed with patient 12/04/2015 Substance Use Topics - Alcohol use: No Comment: Non-drinker - Drug use: No Review of Systems: Review of Systems Constitutional: Positive for unexpected weight change. Gastrointestinal: Positive for nausea and vomiting. I have confirmed and edited as necessary, the PFSH and ROS obtained by others. Hemoglobin (g/dL) Date Value 03/21/2020 11.1 09/07/2017 12.8 HGB (g/dL) Date Value 03/14/2019 13.4 Hematocrit (%) Date Value 03/21/2020 33.3 03/14/2019 40.2 WBC Date Value 03/21/2020 14.32 k/uL 03/14/2019 6.1 thou/cmm Platelet Count Date Value 03/21/2020 206 k/uL 03/14/2019 199 thou/cmm CMP: Glucose 94 03/21/2020 BUN 1 (more content not included)... [facility] Evaluation note Note Date & Type Note Facility Evaluation note No assessment information availa ble [facility] Work Phone: Reason for referral (narrative) Note Date & Type Note Facility Reason for referral (narrative) No reason for referral information available [facility] Work Phone: Summary Purpose Family History No Family History Records Found Relationship Condition Age at Onset Recorded Date/T elias Unknown Family History?- Unknown March 232019 11:22am Family History?Cancer Unknown Novemb er 2019 11:22am Family History?Cancer, - Unknown Nov ember 2019 11:22am Relationship Condition Age at Onset Recorded Date/T elias Unknown Family History?- Unknown March 232019 10:22am Family History?Cancer Unknown Novemb er 2019 10:22am Family History?Cancer, - Unknown Nov ember 2019 10:22am Advance Directives No Advanced Directives Records Found Advance Directive Response Recorded Date/ Time Living Will Yes August 08, 2021 5:19pm Power of Packing Floor Worker Yes August 08 5:19pm Advance Directive Response Recorded Date/ Time Living Will Yes August 08, 2021 4:19pm Power of Packing Floor Worker Yes August 08 4:19pm Chief Complaint Chief Complaint Description Start Date lower back pain Preliminary chief co mplaint data, not yet signed by the author as of Instructions Instruction Description Start Date Patient advised to follow-up with Primary Care Physician for BMI management. Assessments There may be information available, but it has not been provided by the sender. Review of System There may be information available, but it has not been provided by the sender. History of Present Illness There may be information available, but it has not been provided by the sender. Hospital Course Note HNO ID: [id number] Author: Nahun Rawls MD Service: Hospital Medicine Author Type: Physician Type: Discharge Summary Filed: 03/22/2020 10:01 AM Note Text: DISCHARGE SUMMARY PATIENT NAME: Lisa Shirley Code Status: Full Code Highest Readmission Risk Score: 28 The 30 day readmissions risk score is derived from an internally validated risk model which evaluates patient level characteristics, utilization history, medication orders and lab results up until the day of discharge. Patients with a score of 40 or above are considered highest risk for readmission. Specific patient level drivers will be listed at the bottom of the summary. Admission Information Admission Information ADMIT DATE: 03/08/2020 DISCHARGE DATE: 03/22/2020 [facility] TE[facility]: [facility] Doctor: Theo Rawls, * Primary Care Provider: Jaqueline Aragon DO My Medical Team Members: Treatment Team: Attending Provider: Theo Rawls MD Consulting: Leland Dobson (more content not included)... Note HNO ID: [id number] Author: Giulia herman (Web Marketing Strategist) Kiki Service: ? Author Type: Nurse Historical Site Guide Type: Anesthesia Procedure Notes Filed: 03/19/2020 1:02 PM Note Text: ANESTHESIOLOGY PROCEDURE NOTE Airway General Information Procedure Start Time/Medication Administration: 03/19/2020 12:40 PM Patient location during procedure: OR Patient identity confirmed: arm band and patient Staffing COST CONTROL SUPERVISOR: Carmina Patel) Kiki Performed by: COST CONTROL SUPERVISOR Indications and Patient Condition Preoxygenated: yes Patient position: sniffing Indications for airway management: anesthesia anesthesia circuit Method: asleep Cricoid Pressure: Yes Final Airway Details Final airway type: endotracheal airway Final Endotracheal Airway: ETT Cuffed: yes Successful intubation technique: video laryngoscopy Devices used: intubating stylet Endotracheal tube insertion site: oral Blade size: #3 ETT size (mm): 7.0 Measured from: lips Measurement (cm): 22 Placement verified by: chest auscultation and capnometry Cormack-Lehane Classificat (more content not included)... Note HNO ID: [id number] Author: Ria Zamora Service: Orthopaedic Surgery Author Type: Resident Type: Brief Op Note Filed: 03/19/2020 2:31 PM Note Text: Orthopaedic Surgery Brief Operative Note Log ID: [id number] Surgery/Procedure Date: 03/19/2020 Incision/Procedure Start Time: 12:58 PM Incision Close/Procedure End Time: 2:18 PM Surgeon(s)/Proceduralist(s) and Carbon Paper Coating Machine Setter(s): Surgeon(s) and Role: * Leland Herrera - Primary * Lee Zamora - Resident - Assisting No Additional Staff Procedure(s): ORIF of L trimalleolar ankle fracture-dislocation with syndesmotic fixation Anesthesia: General Pre-Op/Pre-Procedure Diagnosis: Closed L trimalleolar ankle fracture Post-Op/Post-Procedure Diagnosis: Same Implant: Implant Name Type Inv. Item Serial No. Forming Fixer Lot No. LRB No. Used Action BIT 2.7MM 125MM DRILL 3 FLUTED QUICK COUPLING NONSTERILE - [id number] Bit BIT 2.7MM 125MM DRILL 3 FLUTED QUICK COUPLING NONSTERILE Neuralieve [facility] 1 BIT 2MM STAINLESS STEEL 125MM DRILL QU (more content not included)... Procedure Findings Note HNO ID: [id number] Author: Giulia Patel) Kiki Service: ? Author Type: Nurse Historical Site Guide Type: Anesthesia Procedure Notes Filed: 03/19/2020 1:02 PM Note Text: ANESTHESIOLOGY PROCEDURE NOTE Airway General Information Procedure Start Time/Medication Administration: 03/19/2020 12:40 PM Patient location during procedure: OR Patient identity confirmed: arm band and patient Staffing COST CONTROL SUPERVISOR: Carmina Patel) Kiki Performed by: COST CONTROL SUPERVISOR Indications and Patient Condition Preoxygenated: yes Patient position: sniffing Indications for airway management: anesthesia anesthesia circuit Method: asleep Cricoid Pressure: Yes Final Airway Details Final airway type: endotracheal airway Final Endotracheal Airway: ETT Cuffed: yes Successful intubation technique: video laryngoscopy Devices used: intubating stylet Endotracheal tube insertion site: oral Blade size: #3 ETT size (mm): 7.0 Measured from: lips Measurement (cm): 22 Placement verified by: chest auscultation and capnometry Cormack-Lehane Classificat (more content not included)... Note HNO ID: [id number] Author: Ria Zamora Service: Orthopaedic Surgery Author Type: Resident Type: Brief Op Note Filed: 03/19/2020 2:31 PM Note Text: Orthopaedic Surgery Brief Operative Note Log ID: [id number] Surgery/Procedure Date: 03/19/2020 Incision/Procedure Start Time: 12:58 PM Incision Close/Procedure End Time: 2:18 PM Surgeon(s)/Proceduralist(s) and Carbon Paper Coating Machine Setter(s): Surgeon(s) and Role: * Leland Herrera - Primary * Lee Zamora - Resident - Assisting No Additional Staff Procedure(s): ORIF of L trimalleolar ankle fracture-dislocation with syndesmotic fixation Anesthesia: General Pre-Op/Pre-Procedure Diagnosis: Closed L trimalleolar ankle fracture Post-Op/Post-Procedure Diagnosis: Same Implant: Implant Name Type Inv. Item Serial No. Forming Fixer Lot No. LRB No. Used Action BIT 2.7MM 125MM DRILL 3 FLUTED QUICK COUPLING NONSTERILE - [id number] Bit BIT 2.7MM 125MM DRILL 3 FLUTED QUICK COUPLING NONSTERILE Neuralieve [facility] 1 BIT 2MM STAINLESS STEEL 125MM DRILL QU (more content not included)... Chief Complaint and Reason for Visit Chief Complaint sei Chief Complaint SHELTER LAB WOR K SHELTER LABWORK Chief Complaint LABWORK Chief Complaint LABWORK SHELTER LAB WORK Chief Complaint LABWORK SHELTER LAB WORK SHELTER LAB WORK SHELTER LABWORK Chief Complaint SHELTER LAB WOR K SHELTER LABWORK SHELTER LAB WORK Chief Complaint Admit Date SHELTER LAB WORK May 06, 2024 5:00am SHELTER LAB WORK August 05, 2024 5 :00am Additional Source Comments INFORMATION SOURCE (unrecogn ized section and content) DATE CREATED AUTHOR 10/14/[address] [facility] DATE CREATED AUTHOR AUTHOR'S ORGANIZ ATION 05/27/2020 [facility] DATE CREATED AUTHOR AUTHOR'S ORGANIZ ATION 07/31/2020 [facility] DATE CREATED AUTHOR AUTHOR'S ORGANIZ ATION 11/04/2020 [facility] DATE CREATED AUTHOR AUTHOR'S ORGANIZ ATION 06/20/2021 [facility] DATE CREATED AUTHOR AUTHOR'S ORGANIZ ATION 09/04/2024 [facility] Reason for Visit (unrecogniz ed section and content) Reason For Visit Description New - 1st visit with practice Preliminary reason f or visit data, not yet signed by the author as of lower back pain Goals (unrecognized section and content) Goals may be documented in a n alternate sectionGoals may be documented in an alternate sectionGoals may be documented in an alternate sectionGoals may be documented in an alternate sectionGoals may be documented in an alternate sectionGoals may be documented in an alternate sectionGoals may be documented in an alternate section Care Teams (unrecognized sec tion and content) Team Status: Active Member Role Status Dates Dr. Darvin Brice MD Primary Care Provider Active Team Status: Active Member Role Status Dates Dr. Darvin Brice MD Primary Care Provider Active Start: May 06, 2024 Jean-Paul STUART MD Attending Provider Active Start: May 06, 2024 Team Status: Inactive Member Role Status Dates Dr. Darvin Brice MD Primary Care Provider Active Start: August 05, 2024 End: August 05, 2024 Jean-Paul STUART MD Attending Provider Active Start: August 05, 2024 End: August 05, 2024 Team Status: Inactive Member Role Status Dates Dr. Darvin Brice MD Primary Care Provider Active Jean-Paul STUART MD Attending Provider Active Team Status: Active Member Role Status Dates Dr. Darvin Brice MD Primary Care Provider Active Jean-Paul STUART MD Attending Provider Active Team Status: Inactive Member Role Status Dates Dr. Darvin Brice MD Primary Care Provider Active [facility] Attending Provider Active FOR RECORDS PERTAINING TO PATIENTS WHO ARE OR HAVE BEEN ENROLLED IN A CHEMICAL DEPENDENCY/SUBSTANCEABUSE PROGRAM, SOME INFORMATION MAY BE OMITTED. This clinical summary was aggregated from multiple sources. Caution should be exercised in using it in the provision of clinical care. This summary normalizes information from multiple sources, and as a consequence, information in this document may materially change the coding, format and clinical context of patient data. In addition, data may be omitted in some cases. CLINICAL DECISIONS SHOULD BE BASED ON THE PRIMARY CLINICAL RECORDS. [employer] provides no warranty or guarantee of the accuracy or completeness of information in this document.
[2024-11-04 07:19] LABS: Hematocrit 33.4 % (37-47); Hemoglobin 10.8 g/dL (12.0-15.0); Mean Corp Hgb Conc 32.3 g/dL (32-36); Mean Corpuscular Volume 94.9 fL (81-99); Mean Platelet Vol. 10.4 fl (6.2-12.0); Platelet Count 213 K/mm3 (150-450); RBC Distribution Width CV 16.9 % (11.6-14.6); RBC Distribution Width SD 59.1 fl (35.1-43.9); Red Blood Count 3.52 M/mm3 (4.2-5.4); White Blood Count 5.4 K/mm3 (4.4-11.0)
[2024-11-04 07:49] LABS: Anion Gap 7 (5-15); BUN 14 mg/dL (4-19); BUN/Creat Ratio 12.4 RATIO (10-20); Calcium,Total 8.3 mg/dL (7.6-11.0); Carbon Dioxide 24.0 mmol/L (21.0-32.0); Chloride 107 mmol/L (98-108); Glucose 69 mg/dL (70-99); Potassium 4.2 mmol/L (3.3-5.1)
== END ==
LOC: OLS.WCC 05:00
PROVIDERS: PCP Family Medicine; Visit Provider Family Medicine
DX: I10 Essential (primary) hypertension (principal); Z79.899 Other long term (current) drug therapy; E11.9 Type 2 diabetes mellitus without complications
CPT/HCPCS: 36415; 80048; 83036; 85027

== ENCOUNTER → 2024-12-19 | Outpatient (REF) | payer MEDICARE, BC, MEDICAID, SELFPAY ==
[2024-12-19 08:46] LABS: Cholesterol 161 mg/dL (<=200); Low Density Lipoprotein Calc. 91 mg/dL; Triglycerides 81 mg/dL; Very Low Density Lipoprotein 16 mg/dL (5-40); cholesterol:hdl ratio screen 2.99
== END ==
LOC: OLS.WCC 04:00
PROVIDERS: PCP Family Medicine; Referring Provider Family Medicine; Visit Provider Family Medicine
DX: E78.5 Hyperlipidemia, unspecified (principal); Z79.899 Other long term (current) drug therapy
CPT/HCPCS: 36415; 80061

== ENCOUNTER → 2025-01-19 | Outpatient (REF) | payer MEDICARE, BC, MEDICAID, SELFPAY ==
[2025-01-19 09:49] LABS: Cholesterol 167 mg/dL (<=200); Low Density Lipoprotein Calc. 97 mg/dL; Triglycerides 117 mg/dL; Very Low Density Lipoprotein 23 mg/dL (5-40); cholesterol:hdl ratio screen 3.59
== END ==
LOC: OLS.WCC 07:35
PROVIDERS: PCP Family Medicine; Visit Provider Family Medicine
DX: E11.9 Type 2 diabetes mellitus without complications (principal)
CPT/HCPCS: 36415; 80061

== ENCOUNTER → 2025-02-07 04:00 | Outpatient (REF) | payer MEDICARE, BC, MEDICAID, SELFPAY ==
[2025-02-07 09:26] LABS: Anion Gap 9 (5-15); BUN 20 mg/dL (4-19); BUN/Creat Ratio 15.6 RATIO (10-20); Calcium,Total 8.4 mg/dL (7.6-11.0); Carbon Dioxide 23.6 mmol/L (21.0-32.0); Chloride 107 mmol/L (98-108); Glucose 179 mg/dL (70-99); Potassium 4.1 mmol/L (3.3-5.1)
[2025-02-07 09:47] LABS: Hematocrit 33.6 % (37-47); Hemoglobin 10.9 g/dL (12.0-15.0); Mean Corp Hgb Conc 32.4 g/dL (32-36); Mean Corpuscular Volume 93.1 fL (81-99); Mean Platelet Vol. 11.2 fl (6.2-12.0); Platelet Count 203 K/mm3 (150-450); RBC Distribution Width CV 12.6 % (11.6-14.6); RBC Distribution Width SD 42.8 fl (35.1-43.9); Red Blood Count 3.61 M/mm3 (4.2-5.4); White Blood Count 5.4 K/mm3 (4.4-11.0)
== END ==
LOC: OLS.WCC 04:00
PROVIDERS: PCP Family Medicine; Referring Provider Family Medicine; Visit Provider Family Medicine
DX: E11.9 Type 2 diabetes mellitus without complications (principal); D64.9 Anemia, unspecified; I82.409 Acute embolism and thrombosis of unspecified deep veins of unspecified lower extremity; E78.5 Hyperlipidemia, unspecified; F03.90 Unspecified dementia, unspecified severity, without behavioral disturbance, psychotic disturbance, mood disturbance, and anxiety
CPT/HCPCS: 36415; 80048; 83036; 85027

== ENCOUNTER → 2025-04-17 05:00 | Outpatient (REF) | payer MEDICARE, BC, MEDICAID, SELFPAY ==
--- OUTSIDE RECORDS SUMMARY | 2025-04-17 03:30 | XMS RPT_ITS | CCD ---
Author Organization [facility] Care Team Providers Care Sales Representative Aircraft Name Role Phone SAMANTHA ANAND Unavailable Unavailable JEAN-PAUL MORALES Unavailable Unavailable CRISTOPHER MUNOZ Unavailable UnavailRALPH Nath JR Unavailable Unavailable Gaby CHACKO, Lorena Cunha Unavailable Dr. Darvin Brice MD Primary Care Provider [phone] Jean-Paul Rothman MD Attending Provider Unavailable Dr. Darvin Brice MD Primary Care Physician Jean-Paul Rothman MD Attending Physician UnavailJean-Paul Calderon MD Referring Provider Unavailable Darvin Brice Primary Care Unavailable Rothman Jean-Paul STUART Attending Unavailable Brice, Darvin Primary Care Unavailable Rothman Jean-Paul STUART Attending Unavailable Rothman Jean-Paul STUART Referring Unavailable Rothman Jean-Paul STUART Attending Unavailable Darvin Brice Primary Care Unavailable Yuniel, Darvin Primary Care Unavailable Rothman NARCISO, Jean-Paul Rollins Attending Unavailable Rothman Jean-Paul STUART Referring Unavailable Brice, Darvin Primary Care Unavailable Jean-Paul Anna Attending Unavailable Yuniel, Darvin Primary Care Unavailable Rothman Jean-Paul STUART Attending Unavailable Allergies Allergy Classification Reported Allergen(s) Allergy Type Date of Onset Reaction(s) Facility (10 sources) meloxicam; Translations: [MELOXICAM] Drug Allergy 6 AOF, PT UNSURE OF REACTION [facility] Repository (10 sources) predniSONE; Translations: [PREDNISONE] Drug Allergy 1 AOF, PT UNSURE OF REACTION [facility] (1 source) rosuvastatin; Translations: [ROSUVASTATIN CALCIUM] Drug Allergy 1 AOF [facility] (9 sources) Angiotensin Converting Enzyme (Sofia) Inhibitors; Translations: [SOFIA Inhibitors] Propensity to adverse reactions 1 NEEDS FOLLOW-UP [facility] (8 sources) busPIRone Drug Allergy 1 PT UNSURE OF REACTION [facility] (8 sources) Escitalopram Drug Allergy 1 PT UNSURE OF REACTION [facility] (8 sources) glimepiride Drug Allergy 1 PT UNSURE OF REACTION [facility] (8 sources) glipiZIDE Drug Allergy 1 PT UNSURE OF REACTION [facility] (8 sources) metFORMIN Drug Allergy 1 PT UNSURE OF REACTION [facility] (8 sources) pioglitazone Drug Allergy 1 PT UNSURE OF REACTION [facility] (8 sources) QUEtiapine Drug Allergy 1 PT UNSURE OF REACTION [facility] (8 sources) rosuvastatin Drug Allergy 1 PT UNSURE OF REACTION [facility] (9 sources) NSAIDS (Non-Steroidal Anti-Inflamma; Translations: [NSAIDS (Non-Steroidal Anti-Inflamma] Propensity to adverse reactions 1 PT UNSURE OF REACTION [facility] (1 source) busPIRone Drug Allergy 1 [facility] (1 source) Escitalopram Drug Allergy 1 [facility] (1 source) glimepiride Drug Allergy 1 [facility] (1 source) glipiZIDE Drug Allergy 1 [facility] (1 source) metFORMIN Drug Allergy 1 [facility] (1 source) pioglitazone Drug Allergy 1 [facility] (1 source) QUEtiapine Drug Allergy 1 [facility] (1 source) rosuvastatin Drug Allergy 1 [facility] Medications Current Medications Medication Drug Class(es) Dates Sig (Normalized) Sig (Original) acetaminophen 500 mg oral tablet (8 sources) Start: 03-22-2020 take 2 tablets by mouth three times daily Start: 03-22-2020 take 1000 mg by mout h three times daily Acetaminophen Active 1000 MG PO THREE TIMES A DAY March 22, 2020 12:00am ALPRAZolam 0.25 mg oral tablet (20 sources) Benzodiazepine Start: 08-08-2021 take 1 tablet by rommel th at bedtime Start: 04-05-2020 End: 04-12-2020 take 1 tablet by mouth once daily Alprazolam 0.25 MG tablet Discontinued 0.25 mg PO DAILY 7 7 0 April 05, 2020 1:00am April 11, 2020 1:00am April 12, 2020 1:02am [facility] prescription benzodiazepine use Other shelter (current) drug therapy DC after 7 days. She has been [...] Take one tablet three times daily ALPRAZOLAM [id number] Marianna Mcculloughers atorvastatin 80 mg oral tablet (8 sources) HMG-CoA Reductase Inhibitor Start: 03-22-2020 take 1 tablet by mouth at bedtime bisacodyl 10 mg rectal suppository (8 sources) Stimulant Laxative Start: 04-05-2020 Start: 04-05-2020 Bisacodyl Acti ve 10 MG RECTAL .PRN X 1 April 05, 2020 12:00am calcium carbonate 1500 mg oral tablet (8 sources) Start: 03-22-2020 take 1 tablet by mouth once daily 24 hr dilTIAZem hydrochloride 240 mg extended release oral capsule (16 sources) Calcium Channel Delfino Start: 04-05-2020 take 1 capsule by mouth once daily Start: 03-22-2020 End: 04-05-2020 take 1 capsule by mouth once daily Diltiazem Hcl 180 MG capsule Discontinued 180 mg PO DAILY March 22, 2020 1:00am April 05, 2020 11:36am bp docusate sodium 100 mg oral capsule (8 sources) Start: 08-08-2021 take 1 capsule by mouth once daily 3 ml insulin glargine 100 unt/ml pen injector (8 sources) Insulin Analog Start: 08-08-2021 levETIRAcetam 500 mg oral tablet (8 sources) Start: 08-08-2021 take 1 tablet by mouth twice daily loperamide hydrochloride 2 mg oral capsule (8 sources) Opioid Agonist Start: 04-05-2020 take 1 capsule by mouth every four hours as needed for diarrhea losartan potassium 100 mg oral tablet (8 sources) Angiotensin 2 Receptor Delfino Start: 03-22-2020 take 1 tablet by mouth once daily magnesium hydroxide 80 mg/ml oral suspension (8 sources) Start: 04-05-2020 Start: 04-05-2020 Magnesium Hydr oxide Active 30 ML PO .PRN X 1 April 05, 2020 12:00am meclizine hydrochloride 12.5 mg oral tablet (8 sources) Antiemetic Start: 08-08-2021 take 1 tablet by mouth three times daily as needed Menthol / Zinc Oxide (7 sources) Start: 04-05-2020 Menthol-Zinc Oxide Active 1 APPLIC TOPICAL TWICE A DAY April 05, 2020 11:42am Start: 04-05-2020 Start: 04-05-2020 Menthol-Zinc O xide Active 1 [...] Protocol details. nortriptyline 10 mg oral capsule (8 sources) Tricyclic Antidepressant Start: 04-05-2020 take 1 capsule by mouth at bedtime omeprazole 20 mg delayed release oral capsule (8 sources) Proton Pump Inhibitor Start: 08-08-2021 take 1 capsule by mouth once daily ondansetron 4 mg disintegrating oral tablet (8 sources) Serotonin-3 Receptor Antagonist Start: 08-08-2021 take 1 tablet by mouth every six hours as needed for nausea polyethylene glycol 3350 46874 mg powder for oral solution (9 sources) Osmotic Laxative Start: 03-22-2020 take 17 g by mouth once daily Start: 09-17-2018 MIRALAX LENAD T daya as directed as needed POLYETHYLENE GLYCOL 3350 [id number] Marianna Parker microencapsulated potassium chloride 20 meq extended release oral tablet (8 sources) Start: 04-05-2020 take 1 tablet by mouth once daily at mealtime sertraline 150 mg oral tablet (8 sources) Serotonin Reuptake Inhibitor Start: 08-08-2021 take 1 capsule by mouth once daily Completed/Discontinued Medications Medication Drug Class(es) Dates Sig (Normalized) Sig (Original) acetaminophen 325 mg / oxyCODONE hydrochloride 5 mg oral tablet (1 source) Opioid Agonist Start: 09-17-2018 OXYCODONE-ACETAMIN OPHEN 5-325 MG TABS 1 tablet twice daily OXYCODONE-ACETAMIN OPHEN [id number] Marianna Parker amLODIPine 10 mg oral tablet (1 source) Dihydropyridine Calcium Channel Delfino Start: 09-17-2018 NORVASC 10 MG TABS Take one tablet once daily AMLODIPINE BESYLATE [id number] Marianna Parker aspirin 81 mg delayed release oral tablet (1 source) Platelet Aggregation Inhibitor, Nonsteroidal Anti-inflammatory Drug Start: 09-17-2018 ASPIRIN ADULT LOW STRENGTH TBEC Take one tablet once daily ASPIRIN TBEC [id number] Marianna Parker Calcium (1 source) Phosphate Binder, Calcium Start: 09-17-2018 CALCIUM 600 MG TABS Take one tablet three times daily CALCIUM [id number] Marianna Parker 0.4 ml enoxaparin sodium 100 mg/ml prefilled syringe (8 sources) Low Molecular Weight Heparin Start: 03-22-2020 End: 04-05-2020 inject 40 mg by subcutaneous injection once daily Enoxaparin 40 MG/0.4 ML syringe Discontinued 40 mg SQ DAILY@599March 22, 2020 1:00am April 05, 2020 11:48am diabetes melatonin 10 mg sublingual tablet (8 sources) Start: 03-22-2020 End: 04-05-2020 take 1 tablet by mouth once daily Melatonin 10 MG tablet Discontinued 10 mg PO DAILY@2199March 22, 2020 1:00am April 05, 2020 11:47am sleep nitroglycerin 0.4 mg sublingual tablet (1 source) Nitrate Vasodilator Start: 09-17-2018 NITROSTAT 0.4 MG SUBL As needed as directed for chest pain NITROGLYCERIN [id number] Marianna Parker oxyCODONE hydrochloride 5 mg oral tablet (8 sources) Opioid Agonist Start: 03-22-2020 End: 04-05-2020 [...] Take 2 capsules once a day RAMIPRIL [id number] Marianna Parker SITagliptin 100 mg oral tablet (9 sources) Dipeptidyl Peptidase 4 Inhibitor Start: 03-22-2020 End: 04-05-2020 take 1 tablet by mouth once daily Sitagliptin Phosphate 100 MG tablet Discontinued 100 mg PO DAILY March 22, 2020 1:00am April 05, 2020 11:47am diabetes Start: 09-17-2018 JANUVIA 100 MG TABS Take one tablet once daily SITAGLIPTIN PHOSPHATE [id number] Marianna Parker zolpidem tartrate 10 mg oral tablet (1 source) gamma-Aminobutyric Acid-ergic Agonist Start: 09-17-2018 AMBIEN 10 MG TABS Take one tablet once daily at bedtime ZOLPIDEM TARTRATE [id number] Marianna Parker Problems Active Problems Problem Classification Problem Date Documented Da te Episodic/Chronic Acute and unspecified renal failure (1 source) Acute kidney failure, unspecified; Translations: [Acute kidney failure, unspecified] Onset: 09-07-2017 Episodic Acute cerebrovascular disease (8 sources) Ischemic stroke; Translations: [Cerebral infarction, unspecified] 03-23-2020 Chronic Comment on above: Right MCA distributi on involving right caudate, insular and frontal areas Anxiety disorders (9 sources) Generalized anxiety disorder; Translations: [Mixed anxiety and depressive disorder] Onset: 09-07-2017 03-23-2020 Chronic Cardiac dysrhythmias (8 sources) Ectopic beats; Translations: [Other premature depolarization] 03-23-2020 Chronic Comment on above: Nonconducted Chronic kidney disease (9 sources) Chronic kidney disease, unspecified; Translations: [Chronic kidney disease stage 3A ] Onset: 09-07-2017 08-08-2021 Chronic Comment on above: GFR has been greater than 60 since she was hydrated while in rehab Deficiency and other anemia (8 sources) Normocytic normochromic anemia; Translations: [Anemia, unspecified] 03-23-2020 Episodic Deficiency and other anemia (1 source) Anemia, unspecified; Translations: [Anemia, unspecified] Onset: 02-08-2025 Episodic Diabetes mellitus with complications (20 sources) Neuropathy due to diabetes mellitus; Translations: [Type 2 diabetes mellitus with diabetic neuropathy, unspecified] Onset: 02-03-2025 03-23-2020 Chronic Diabetes mellitus with complications (2 sources) Type 2 diabetes mellitus with diabetic neuropathy, unspecified; Translations: [Diabetic - poor control] Onset: 06-04-2016 09-29-2018 Diabetes mellitus without complication (2 sources) Type 2 diabetes mellitus without complications; Translations: [Type 2 diabetes mellitus without complications] Onset: 02-08-2025 Chronic Disorders of lipid metabolism (9 sources) Hyperlipidemia; Translations: [Hyperlipidemia, unspecified] Onset: 02-03-2025 03-23-2020 Chronic Epilepsy; convulsions (8 sources) Seizure; Translations: [Unspecified convulsions] 08-16-2021 Episodic Essential hypertension (11 sources) Essential (primary) hypertension; Translations: [Hypertensive disorder] Onset: 09-07-2017 03-23-2020 Chronic Fluid and electrolyte disorders (16 sources) Hypokalemia; Translations: [Hypokalemia] 04-05-2020 Episodic Fracture of lower limb (8 sources) Trimalleolar fracture; Translations: [Displaced trimalleolar fracture of left lower leg, initial encounter for closed fracture] 03-23-2020 Episodic Genitourinary symptoms and ill-defined conditions (8 sources) Incontinence; Translations: [Unspecified urinary incontinence] 03-23-2020 Chronic Headache, including migraine (1 source) Migraine without aura, not intractable, without status migrainosus; Translations: [Migraine without aura, not intractable, without status migrainosus] Onset: 04-08-2017 Chronic Malaise and fatigue (8 sources) Asthenia; Translations: [Other malaise] 03-23-2020 Episodic Comment on above: Due to recent right MCA ischemic CVA causing a fall and resulting in a left trimalleolar ankle fracture. Other aftercare (8 sources) Long-term current use of benzodiazepine; Translations: [Other shelter (current) drug therapy] 03-23-2020 Episodic Other aftercare (2 sources) Other shelter (current) drug therapy; Translations: [Other rn long term care (current) drug therapy] Onset: 02-08-2025 Episodic Other and ill-defined heart disease (8 sources) Left ventricular hypertrophy; Translations: [Cardiomegaly] 03-23-2020 Chronic Comment on above: Mild Other and unspecified benign neoplasm (8 sources) History of polyp of colon; Translations: [Personal history of colonic polyps] 03-23-2020 Episodic Other circulatory disease (7 sources) History of cerebrovascular accident; Translations: [Personal history of transient ischemic attack (TIA), and cerebral infarction without residual deficits] 08-16-2021 Episodic Other circulatory disease (1 source) History of cerebrovascular accident due to ischemia; Translations: [Personal history of transient ischemic attack (TIA), and cerebral infarction without residual deficits] 08-16-2021 Episodic Other connective tissue disease (8 sources) Rhabdomyolysis; Translations: [Rhabdomyolysis] 03-23-2020 Episodic Other connective tissue disease (8 sources) History of osteoporosis; Translations: [Personal history of other diseases of the musculoskeletal system and connective tissue] 03-23-2020 Episodic Other endocrine disorders (8 sources) Hypoglycemia; Translations: [Hypoglycemia, unspecified] 04-05-2020 Chronic Other gastrointestinal disorders (8 sources) Irritable bowel syndrome; Translations: [Irritable bowel syndrome without diarrhea] 03-23-2020 Chronic Other gastrointestinal disorders (8 sources) Dysphagia; Translations: [Dysphagia, unspecified] 03-23-2020 Episodic [...] Chronic Other nutritional; endocrine; and metabolic disorders (8 sources) Morbid obesity; Translations: [Morbid (severe) obesity due to excess calories] 08-08-2021 Chronic Other nutritional; endocrine; and metabolic disorders (8 sources) History of nutritional deficiency; Translations: [Personal history of other endocrine, nutritional and metabolic disease] 03-23-2020 Episodic Residual codes; unclassified (8 sources) Obstructive sleep apnea syndrome; Translations: [Obstructive sleep apnea (adult) (pediatric)] 04-05-2020 Chronic Comment on above: not treatment - pt s kevin she could not tolerate the mask Residual codes; unclassified (8 sources) Family history of cancer of colon; Translations: [Family history of malignant neoplasm of digestive organs] 03-23-2020 Episodic Residual codes; unclassified (1 source) H/O: fracture; Translations: [Other specified postprocedural states] Episodic Residual codes; unclassified (7 sources) History of ankle surgery; Translations: [Other specified postprocedural states] 03-23-2020 Episodic Comment on above: Closed trimalleolar left ankle fracture sustained in a fall Spondylosis; intervertebral disc disorders; other back problems (2 sources) Chronic low back pain; Translations: [Other chronic pain] Onset: 09-29-2018 09-29-2018 Episodic Syncope (8 sources) Syncope; Translations: [Syncope and collapse] 08-29-2020 Episodic Thyroid disorders (1 source) Hypothyroidism, unspecified; Translations: [Hypothyroidism, unspecified] Onset: 02-03-2025 Chronic Transient cerebral ischemia (1 source) Transient cerebral ischemic attack, unspecified; Translations: [Transient cerebral ischemic attack, unspecified] Onset: 09-05-2017 Chronic Viral infection (16 sources) Disease caused by 2019-nCoV; Translations: [COVID-19] 04-05-2020 Episodic Comment on above: She had COVID prior to being transferred to [facility] acute rehab and was negative prior to transfer. in February 2020 Past or Other Problems Problem Classification Problem Date Documented Da te Episodic/Chronic Unclassified (1 source) Problem Results Test Name Value Interpretation Reference Range Facility Anion gap in Serum or Plasma Ordered By: Jean-Paul Rothman on 02-07-2025 Anion gap [Moles/Vol] 9 mmol/L 09-08 [facility] BUN/creatinine ratioOrdered By: Jean-Paul Rothman on 02-07-2025 Urea nitrogen/Creatinine [Mass ratio] 15.6 mg/mg 02-13 [facility] Basic Metabolic Profile (BMP )on 02-07-2025 BUN/CRE 15.6 RATIO Normal 02-13 [facility] Comment on above: Order Comment: 122.2 Performed By: #### L 500.2500, L100.0500 #### [facility] [address] [place], [address] Calcium [Mass/Vol] 8.4 mg/dL Normal 7.6-11.0 [facility] Comment on above: Order Comment: 122.2 Performed By: #### L 500.2500, L100.0500 #### [facility] [address] [place], [address] Chloride [Moles/Vol] 107 mmol/L Normal 98-108 [facility] Comment on above: Order Comment: 122.2 Performed By: #### L 500.2500, L100.0500 #### [facility] [address] [place], [address] CO2 [Moles/Vol] 23.6 mmol/L Normal 21.0-32.0 [facility] Comment on above: Order Comment: 122.2 Performed By: #### L 500.2500, L100.0500 #### [facility] [address] [place], [address] Creatinine [Mass/Vol] 1.31 mg/dL High 0.70-1.20 [facility] Comment on above: Order Comment: 122.2 Performed By: #### L 500.2500, L100.0500 #### [facility] [address] [place], [address] GAP 9 Normal 5-15 [facility] Comment on above: Order Comment: 122.2 Performed By: #### L 500.2500, L100.0500 #### [facility] [address] [place], [address] GFR/1.73 sq M.predicted among non-blacks MDRD (S/P/Bld) [Vol rate/Area] 42 mL/min/{1.73_m2} Low >60 [facility] Comment on above: Order Comment: 122.2 Result Comment: mL/m in/1.73m2 CKD-EPI Creatinine Equation (2020) Performed By: #### L 500.2500, L100.0500 #### [facility] [address] [place], [address] Glucose [Mass/Vol] 179 mg/dL High 70-99 [facility] Comment on above: Order Comment: 122.2 Performed By: #### L 500.2500, L100.0500 #### [facility] [address] [place], [address] Potassium [Moles/Vol] 4.1 mmol/L Normal 3.3-5.1 [facility] Comment on above: Order Comment: 122.2 Performed By: #### L 500.2500, L100.0500 #### [facility] [address] [place], [address] Sodium [Moles/Vol] 140 mmol/L Normal 133-145 [facility] Comment on above: Order Comment: 122.2 Performed By: #### L 500.2500, L100.0500 #### [facility] [address] [place], [address] Urea nitrogen [Mass/Vol] 20 mg/dL High 4-19 [facility] Comment on above: Order Comment: 122.2 Performed By: #### L 500.2500, L100.0500 #### [facility] [address] [place], [address] CBC-Complete Blood Cnt No Di ffon 02-07-2025 Erythrocyte distribution width (RBC) [Ratio] 12.6 % Normal 11.6-14.6 [facility] Comment on above: Order Comment: 122.2 Performed By: #### L 500.2500, L100.0500 #### [facility] [address] [place], [address] Hematocrit (Bld) [Volume fraction] 33.6 % Low 37-47 [facility] Comment on above: Order Comment: 122.2 Performed By: #### L 500.2500, L100.0500 #### [facility] [address] [place], [address] Hemoglobin (Bld) [Mass/Vol] 10.9 g/dL Low 12.0-15.0 [facility] Comment on above: Order Comment: 122.2 Performed By: #### L 500.2500, L100.0500 #### [facility] [address] [place], [address] MCH (RBC) [Entitic mass] 30.2 pg Normal 27.0-32.0 [facility] Comment on above: Order Comment: 122.2 Performed By: #### L 500.2500, L100.0500 #### [facility] [address] [place], [address] MCHC (RBC) [Mass/Vol] 32.4 g/dL Normal 32-36 [facility] Comment on above: Order Comment: 122.2 Performed By: #### L 500.2500, L100.0500 #### [facility] [address] [place], [address] MCV (RBC) [Entitic vol] 93.1 fL Normal 81-99 [facility] Comment on above: Order Comment: 122.2 Performed By: #### L 500.2500, L100.0500 #### [facility] [address] [place], [address] Platelet mean volume (Bld) [Entitic vol] 11.2 fL Normal 6.2-12.0 [facility] Comment on above: Order Comment: 122.2 Performed By: #### L 500.2500, L100.0500 #### [facility] [address] [place], [address] Platelets (Bld) [#/Vol] 203 10*3/uL Normal 150-450 [facility] Comment on above: Order Comment: 122.2 Performed By: #### L 500.2500, L100.0500 #### [facility] [address] [place], [address] RBC (Bld) [#/Vol] 3.61 10*6/uL Low 4.2-5.4 [facility] Comment on above: Order Comment: 122.2 Performed By: #### L 500.2500, L100.0500 #### [facility] [address] [place], [address] RDW SD 42.8 fl Normal 35.1-43.9 [facility] Comment on above: Order Comment: 122.2 Performed By: #### L 500.2500, L100.0500 #### [facility] [address] [place], [address] WBC (Bld) [#/Vol] 5.4 10*3/uL Normal 4.4-11.0 [facility] Comment on above: Order Comment: 122.2 Performed By: #### L 500.2500, L100.0500 #### [facility] [address] [place], [address] Carbon dioxide, total [Moles /volume] in Central venous bloodOrdered By: Jean-Paul Rothman on 02-07-2025 CO2 [Moles/Vol] 23.6 mmol/L 21.0-32.0 [facility] Chloride assayOrdered By: Kirti Rothman on 02-07-2025 Chloride [Moles/Vol] 107 mmol/L 98-108 [facility] Erythrocyte distribution wid th ratioOrdered By: Jean-Paul Rothman on 02-07-2025 Erythrocyte distribution width (RBC) [Ratio] 12.6 % 11.6-14.6 [facility] Erythrocyte distribution wid th standard deviationOrdered By: Jean-Paul Rothman on 02-07-2025 Erythrocyte distribution width (RBC) [Ratio] 42.8 fl 35.1-43.9 [facility] Glomerular filtration rate ( GFR) estimation/1.73 sq m using serum, plasma, or whole bOrdered By: Jean-Paul Rothman on 02-07-2025 GFR/1.73 sq M.predicted among non-blacks MDRD (S/P/Bld) [Vol rate/Area] 42 mL/min/{1.73_m2} Low >60 [facility] Comment on above: mL/min/1.73m2 CKD-EP I Creatinine Equation (2020) Hematocrit Auto (Bld) [Volum e fraction]Ordered By: Jean-Paul Rothman on 02-07-2025 Hematocrit (Bld) [Volume fraction] 33.6 % Low 37-47 [facility] Hemoglobin A1con 02-07-2025 HbA1c (Bld) [Mass fraction] 7.4 % High <=5.6 [facility] Comment on above: Order Comment: 122.2 Result Comment: Norm al < 5.7 % Prediabetic 5.7 - 6.4 % Diabetic >or= 6.5 % Please note range changes. Performed By: #### L 500.2500, L100.0500 #### [facility] [address] [place] [address]. [place], [place], [id number] Hemoglobin A1c percentageOrd ered By: Jean-Paul Rothman on 02-07-2025 HbA1c (Bld) [Mass fraction] 7.4 % High <5.7 [facility] Comment on above: Normal < 5.7 % Predi abetic 5.7 - 6.4 % Diabetic >or= 6.5 % Please note range changes. Hemoglobin measurementOrdere d By: Jean-Paul Rothman on 02-07-2025 Hemoglobin (Bld) [Mass/Vol] 10.9 g/dL Low 12.0-15.0 [facility] MCV (mean corpuscular volume ) determinationOrdered By: Jean-Paul Rothman on 02-07-2025 MCV (RBC) [Entitic vol] 93.1 fL 81-99 [facility] Mean corpuscular hemoglobin (MCH) determinationOrdered By: Jean-Paul Rothman on 02-07-2025 MCH (RBC) [Entitic mass] 30.2 pg 27.0-32.0 [facility] Mean corpuscular hemoglobin concentration (MCHC) determinationOrdered By: Jean-Paul Rothman on 02-07-2025 MCHC (RBC) [Mass/Vol] 32.4 g/dL 32-36 [facility] Mean platelet volume determi nationOrdered By: Jean-Paul Rothman on 02-07-2025 Platelet mean volume (Bld) [Entitic vol] 11.2 fL 6.2-12.0 [facility] Platelet countOrdered By: Kirti Rothman on 02-07-2025 Platelets (Bld) [#/Vol] 203 10*3/uL 150-450 [facility] Potassium measurement (mass/ volume)Ordered By: Jean-Paul Rothman on 02-07-2025 Potassium (Unsp spec) [Mass/Vol] 4.1 mmol/L 3.3-5.1 [facility] RBC Auto (Bld) [#/Vol]Ordere d By: Jean-Paul Rothman on 02-07-2025 RBC (Bld) [#/Vol] 3.61 10*6/uL Low 4.2-5.4 [facility] Serum creatinine measurement (mass/volume)Ordered By: Jean-Paul Rothman on 02-07-2025 Creatinine [Mass/Vol] 1.31 mg/dL High 0.70-1.20 [facility] Serum glucose measurement (m ass/volume)Ordered By: Jean-Paul Rothman on 02-07-2025 Glucose [Mass/Vol] 179 mg/dL High 70-99 [facility] Serum or plasma calcium yulia urement (mass/volume)Ordered By: Jean-Paul Rothman on 02-07-2025 Calcium [Mass/Vol] 8.4 mg/dL 7.6-11.0 [facility] Serum or plasma urea nitroge n measurement (mass/volume)Ordered By: Jean-Paul Rothman on 02-07-2025 Urea nitrogen [Mass/Vol] 20 mg/dL High 4-19 [facility] Sodium levelOrdered By: Jean-Paul Rothman on 02-07-2025 Sodium [Moles/Vol] 140 mmol/L 133-145 [facility] White blood cell (WBC) count Ordered By: Jean-Paul Rothman on 02-07-2025 WBC (Bld) [#/Vol] 5.4 10*3/uL 4.4-11.0 [facility] Calculated very low density lipoprotein (VLDL) cholesterol measurementOrdered By: Jean-Paul Rothman on 01-19-2025 Calculated very low density lipoprotein (VLDL) cholesterol measurement 23 mg/dL 5-40 [facility] LDL calc ser/plasOrdered By: Jean-Paul Rothman on 01-19-2025 Cholesterol in LDL [Mass/Vol] 97 mg/dL [facility] Comment on above: Ijlyrfetdd=500-630 m g/dL & Higher Esql=697 mg/dL or greaterFriedwald Equation for LDL-C Lipid Profileon 01-19-2025 CHOL:HDL 3.59 Normal [facility] Comment on above: Performed By: #### L 500.4100 #### [facility] [address] [place], [address] Cholesterol [Mass/Vol] 167 mg/dL Normal <=200 [facility] Comment on above: Result Comment: Chol esterol level, Desirable <200 mg/dL Borderline high cholesterol 200-239 mg/dL High cholesterol >=240 mg/dL Recommendations of the NCEP Adult Treatment Panel for the following risk-cutoff thresholds for the [place] population. Performed By: #### L 500.4100 #### [facility] [address] [place], [address] Cholesterol in HDL [Mass/Vol] 47 mg/dL Normal [facility] Comment on above: Result Comment: Purvi onal Cholesterol Education Program (NCEP) guidelines: <40 mg/dL: Low HDL-cholesterol (major risk factor for CHD) >= 60 mg/dL: High HDL-cholesterol (negative risk factor for CHD) HDL-cholesterol is affected by a number of factors, e.g. smoking, exercise, hormones, sex and age. Performed By: #### L 500.4100 #### [facility] [address] [place], [address] Cholesterol in LDL [Mass/Vol] 97 mg/dL Normal [facility] Comment on above: Result Comment: Bord ngipql=736-363 mg/dL Higher Zjtm=946 mg/dL or greater Friedwald Equation for LDL-C Performed By: #### L 500.4100 #### [facility] [address] [place], [address] Cholesterol in VLDL [Mass/Vol] 23 mg/dL Normal 5-40 [facility] Comment on above: Performed By: #### L 500.4100 #### [facility] [address] [place], [place], [address] Triglyceride [Mass/Vol] 117 mg/dL Normal [facility] Comment on above: Result Comment: The drugs N-Acetylcysteine and Metamizole may falsely depress this assay. Normal range: <150 mg/dL Borderline High: 150-199 mg/dL High: 200-499 mg/dL Very High: >500 mg/dL Performed By: #### L 500.4100 #### [facility] [address] [place], [address] Screening total cholesterol/ high density lipoprotein (HDL) cholesterol ratioOrdered By: Jean-Paul Rothman on 01-19-2025 Cholesterol.total/Cho lesterol in HDL [Mass ratio] 3.59 {ratio} [facility] Serum or plasma cholesterol in HDL measurement (mass/volume)Ordered By: Jean-Paul Rothman on 01-19-2025 Cholesterol in HDL [Mass/Vol] 47 mg/dL >40 [facility] Comment on above: National Cholesterol Education Program (NCEP) guidelines:<40 mg/dL: Low HDL-cholesterol (major risk factor for CHD)>= 60 mg/dL: High HDL-cholesterol (negative risk factor for CHD)HDL-cholesterol is affected by a number of factors, e.g. smoking, exercise, hormones, sex and age. Serum or plasma cholesterol measurement (mass/volume)Ordered By: Jean-Paul Rothman on 01-19-2025 Cholesterol [Mass/Vol] 167 mg/dL <201 [facility] Comment on above: Cholesterol level, D esirable <200 mg/dLBorderline high cholesterol 200-239 mg/dLHigh cholesterol >=240 mg/dLRecommendations of the NCEP Adult Treatment Panel for the following risk-cutoff thresholds for the [place] population. Triglycerides measurementOrd ered By: Jean-Paul Rothman on 01-19-2025 Triglyceride [Mass/Vol] 117 mg/dL <199 [facility] Comment on above: The drugs N-Acetylcy steine and Metamizole may falsely depress this assay. Normal range: <150 mg/dLBorderline High: 150-199 mg/dLHigh: 200-499 mg/dLVery High: >500 mg/dL Calculated very low density lipoprotein (VLDL) cholesterol measurementOrdered By: Jean-Paul Rothman on 12-19-2024 Calculated very low density lipoprotein (VLDL) cholesterol measurement 16 mg/dL 5-40 [facility] LDL calc ser/plasOrdered By: Jean-Paul Rothman on 12-19-2024 Cholesterol in LDL [Mass/Vol] 91 mg/dL [facility] Comment on above: Euxpuiapnm=741-935 m g/dL & Higher Xbup=451 mg/dL or greaterFriedwald Equation for LDL-C Lipid Profileon 12-19-2024 CHOL:HDL 2.99 Normal [facility] Comment on above: Order Comment: 119.2 Performed By: #### L 500.4100 #### [facility] [address] [place], [address] (129) Cholesterol [Mass/Vol] 161 mg/dL Normal <=200 [facility] Comment on above: Order Comment: 119.2 Result Comment: Chol esterol level, Desirable <200 mg/dL Borderline high cholesterol 200-239 mg/dL High cholesterol >=240 mg/dL Recommendations of the NCEP Adult Treatment Panel for the following risk-cutoff thresholds for the [place] population. Performed By: #### L 500.4100 #### [facility] [address] [place], [address] (041) Cholesterol in HDL [Mass/Vol] 54 mg/dL Normal [facility] Comment on above: Order Comment: 119.2 Result Comment: Purvi onal Cholesterol Education Program (NCEP) guidelines: <40 mg/dL: Low HDL-cholesterol (major risk factor for CHD) >= 60 mg/dL: High HDL-cholesterol (negative risk factor for CHD) HDL-cholesterol is affected by a number of factors, e.g. smoking, exercise, hormones, sex and age. Performed By: #### L 500.4100 #### [facility] [address] [place], [address] (673) Cholesterol in LDL [Mass/Vol] 91 mg/dL Normal [facility] Comment on above: Order Comment: 119.2 Result Comment: Bord dheorv=077-187 mg/dL Higher Wcbr=819 mg/dL or greater Friedwald Equation for LDL-C Performed By: #### L 500.4100 #### [facility] [address] [place], [place], [id number] Cholesterol in VLDL [Mass/Vol] 16 mg/dL Normal 5-40 [facility] Comment on above: Order Comment: 119.2 Performed By: #### L 500.4100 #### [facility] [address] [place], [address] Triglyceride [Mass/Vol] 81 mg/dL Normal [facility] Comment on above: Order Comment: 119.2 Result Comment: The drugs N-Acetylcysteine and Metamizole may falsely depress this assay. Normal range: <150 mg/dL Borderline High: 150-199 mg/dL High: 200-499 mg/dL Very High: >500 mg/dL Performed By: #### L 500.4100 #### [facility] [address] [place], [place], [id number] Screening total cholesterol/ high density lipoprotein (HDL) cholesterol ratioOrdered By: Jean-Paul Rothman on 12-19-2024 Cholesterol.total/Cho lesterol in HDL [Mass ratio] 2.99 {ratio} [facility] Serum or plasma cholesterol in HDL measurement (mass/volume)Ordered By: Jean-Paul Rothman on 12-19-2024 Cholesterol in HDL [Mass/Vol] 54 mg/dL >40 [facility] Comment on above: National Cholesterol Education Program (NCEP) guidelines:<40 mg/dL: Low HDL-cholesterol (major risk factor for CHD)>= 60 mg/dL: High HDL-cholesterol (negative risk factor for CHD)HDL-cholesterol is affected by a number of factors, e.g. smoking, exercise, hormones, sex and age. Serum or plasma cholesterol measurement (mass/volume)Ordered By: Jean-Paul Rothman on 12-19-2024 Cholesterol [Mass/Vol] 161 mg/dL <201 [facility] Comment on above: Cholesterol level, D esirable <200 mg/dLBorderline high cholesterol 200-239 mg/dLHigh cholesterol >=240 mg/dLRecommendations of the NCEP Adult Treatment Panel for the following risk-cutoff thresholds for the [place] population. Triglycerides measurementOrd ered By: Jean-Paul Rothman on 12-19-2024 Triglyceride [Mass/Vol] 81 mg/dL <199 [facility] Comment on above: The drugs N-Acetylcy steine and Metamizole may falsely depress this assay. Normal range: <150 mg/dLBorderline High: 150-199 mg/dLHigh: 200-499 mg/dLVery High: >500 mg/dL Anion gap in Serum or Plasma Ordered By: Jean-Paul Rothman on 11-04-2024 Anion gap [Moles/Vol] 7 mmol/L 09-08 [facility] BUN/creatinine ratioOrdered By: Jean-Paul Rothman on 11-04-2024 Urea nitrogen/Creatinine [Mass ratio] 12.4 mg/mg 02-13 [facility] Basic Metabolic Profile (BMP )on 11-04-2024 BUN/CRE 12.4 RATIO Normal 02-13 [facility] Comment on above: Order Comment: 122-2 Performed By: #### L 100.0500, L500.2500, L501.9985 #### [facility] [address] [place], [address] Calcium [Mass/Vol] 8.3 mg/dL Normal 7.6-11.0 [facility] Comment on above: Order Comment: 122-2 Performed By: #### L 100.0500, L500.2500, L501.9985 #### [facility] [address] [place], [address] Chloride [Moles/Vol] 107 mmol/L Normal 98-108 [facility] Comment on above: Order Comment: 122-2 Performed By: #### L 100.0500, L500.2500, L501.9985 #### [facility] [address] [place], [address] CO2 [Moles/Vol] 24.0 mmol/L Normal 21.0-32.0 [facility] Comment on above: Order Comment: 122-2 Performed By: #### L 100.0500, L500.2500, L501.9985 #### [facility] [address] [place], [address] Creatinine [Mass/Vol] 1.11 mg/dL Normal 0.70-1.20 [facility] Comment on above: Order Comment: 122-2 Performed By: #### L 100.0500, L500.2500, L501.9985 #### [facility] [address] [place], [address] GAP 7 Normal 5-15 [facility] Comment on above: Order Comment: 122-2 Performed By: #### L 100.0500, L500.2500, L501.9985 #### [facility] [address] [place], [address] GFR/1.73 sq M.predicted among non-blacks MDRD (S/P/Bld) [Vol rate/Area] 51 mL/min/{1.73_m2} Low >60 [facility] Comment on above: Order Comment: 122-2 Result Comment: mL/m in/1.73m2 CKD-EPI Creatinine Equation (2020) Performed By: #### L 100.0500, L500.2500, L501.9985 #### [facility] [address] [place], [address] Glucose [Mass/Vol] 69 mg/dL Low 70-99 [facility] Comment on above: Order Comment: 122-2 Performed By: #### L 100.0500, L500.2500, L501.9985 #### [facility] [address] [place], [address] Potassium [Moles/Vol] 4.2 mmol/L Normal 3.3-5.1 [facility] Comment on above: Order Comment: 122-2 Performed By: #### L 100.0500, L500.2500, L501.9985 #### [facility] [address] [place], [address] Sodium [Moles/Vol] 138 mmol/L Normal 133-145 [facility] Comment on above: Order Comment: 122-2 Performed By: #### L 100.0500, L500.2500, L501.9985 #### [facility] [address] [place], [address] Urea nitrogen [Mass/Vol] 14 mg/dL Normal 4-19 [facility] Comment on above: Order Comment: 122-2 Performed By: #### L 100.0500, L500.2500, L501.9985 #### [facility] [address] [place], [address] CBC-Complete Blood Cnt No Di ffon 11-04-2024 Erythrocyte distribution width (RBC) [Ratio] 16.9 % High 11.6-14.6 [facility] Comment on above: Order Comment: 122-2 Performed By: #### L 100.0500, L500.2500, L501.9985 #### [facility] [address] [place], [address] Hematocrit (Bld) [Volume fraction] 33.4 % Low 37-47 [facility] Comment on above: Order Comment: 122-2 Performed By: #### L 100.0500, L500.2500, L501.9985 #### [facility] [address] [place], [address] Hemoglobin (Bld) [Mass/Vol] 10.8 g/dL Low 12.0-15.0 [facility] Comment on above: Order Comment: 122-2 Performed By: #### L 100.0500, L500.2500, L501.9985 #### [facility] [address] [place], [address] MCH (RBC) [Entitic mass] 30.7 pg Normal 27.0-32.0 [facility] Comment on above: Order Comment: 122-2 Performed By: #### L 100.0500, L500.2500, L501.9985 #### [facility] [address] [place], [address] MCHC (RBC) [Mass/Vol] 32.3 g/dL Normal 32-36 [facility] Comment on above: Order Comment: 122-2 Performed By: #### L 100.0500, L500.2500, L501.9985 #### [facility] [address] [place], [address] MCV (RBC) [Entitic vol] 94.9 fL Normal 81-99 [facility] Comment on above: Order Comment: 122-2 Performed By: #### L 100.0500, L500.2500, L501.9985 #### [facility] [address] [place], [address] Platelet mean volume (Bld) [Entitic vol] 10.4 fL Normal 6.2-12.0 [facility] Comment on above: Order Comment: 122-2 Performed By: #### L 100.0500, L500.2500, L501.9985 #### [facility] [address] [place], [address] Platelets (Bld) [#/Vol] 213 10*3/uL Normal 150-450 [facility] Comment on above: Order Comment: 122-2 Performed By: #### L 100.0500, L500.2500, L501.9985 #### [facility] [address] [place], [address] RBC (Bld) [#/Vol] 3.52 10*6/uL Low 4.2-5.4 [facility] Comment on above: Order Comment: 122-2 Performed By: #### L 100.0500, L500.2500, [id number] #### [facility] [address] [place], [address] RDW SD 59.1 fl High 35.1-43.9 [facility] Comment on above: Order Comment: 122-2 Performed By: #### L 100.0500, L500.2500, [id number] #### [facility] [address] [place] [place], [address] WBC (Bld) [#/Vol] 5.4 10*3/uL Normal 4.4-11.0 [facility] Comment on above: Order Comment: 122-2 Performed By: #### L 100.0500, L500.2500, L501.9985 #### [facility] [address] [place], [address] Carbon dioxide, total [Moles /volume] in Central venous bloodOrdered By: Jean-Paul Rothman on 11-04-2024 CO2 [Moles/Vol] 24.0 mmol/L 21.0-32.0 [facility] Chloride assayOrdered By: Kirti Rothman on 11-04-2024 Chloride [Moles/Vol] 107 mmol/L 98-108 [facility] Erythrocyte distribution wid th ratioOrdered By: Jean-Paul Rothman on 11-04-2024 Erythrocyte distribution width (RBC) [Ratio] 16.9 % High 11.6-14.6 [facility] Erythrocyte distribution wid th standard deviationOrdered By: Jean-Paul Rothman on 11-04-2024 Erythrocyte distribution width (RBC) [Ratio] 59.1 fl High 35.1-43.9 [facility] Glomerular filtration rate ( GFR) estimation/1.73 sq m using serum, plasma, or whole bOrdered By: Jean-Paul Rothman on 11-04-2024 GFR/1.73 sq M.predicted among non-blacks MDRD (S/P/Bld) [Vol rate/Area] 51 mL/min/{1.73_m2} Low >60 [facility] Comment on above: mL/min/1.73m2 CKD-EP I Creatinine Equation (2020) Hematocrit Auto (Bld) [Volum e fraction]Ordered By: Jean-Paul Rothman on 11-04-2024 Hematocrit (Bld) [Volume fraction] 33.4 % Low 37-47 [facility] Hemoglobin A1con 11-04-2024 HbA1c (Bld) [Mass fraction] 6.6 % High <=5.6 [facility] Comment on above: Order Comment: 122-2 Result Comment: Norm al < 5.7 % Prediabetic 5.7 - 6.4 % Diabetic >or= 6.5 % Please note range changes. Performed By: #### L 100.0500, L500.2500, L501.1842 #### [facility] [place], [address] Hemoglobin A1c percentageOrd ered By: Jean-Paul Rothman on 11-04-2024 HbA1c (Bld) [Mass fraction] 6.6 % High <5.7 [facility] Comment on above: Normal < 5.7 % Predi abetic 5.7 - 6.4 % Diabetic >or= 6.5 % Please note range changes. Hemoglobin measurementOrdere d By: Jean-Paul Rothman on 11-04-2024 Hemoglobin (Bld) [Mass/Vol] 10.8 g/dL Low 12.0-15.0 [facility] MCV (mean corpuscular volume ) determinationOrdered By: Jean-Paul Rothman on 11-04-2024 MCV (RBC) [Entitic vol] 94.9 fL 81-99 [facility] Mean corpuscular hemoglobin (MCH) determinationOrdered By: Jean-Paul Rothman on 11-04-2024 MCH (RBC) [Entitic mass] 30.7 pg 27.0-32.0 [facility] Mean corpuscular hemoglobin concentration (MCHC) determinationOrdered By: Jean-Paul Rothman on 11-04-2024 MCHC (RBC) [Mass/Vol] 32.3 g/dL 32-36 [facility] Mean platelet volume determi nationOrdered By: Jean-Paul Rothman on 11-04-2024 Platelet mean volume (Bld) [Entitic vol] 10.4 fL 6.2-12.0 [facility] Platelet countOrdered By: Kirti Rothman on 11-04-2024 Platelets (Bld) [#/Vol] 213 10*3/uL 150-450 [facility] Potassium measurement (mass/ volume)Ordered By: Jean-Paul Rothman on 11-04-2024 Potassium (Unsp spec) [Mass/Vol] 4.2 mmol/L 3.3-5.1 [facility] RBC Auto (Bld) [#/Vol]Ordere d By: Jean-Pual Rothman on 11-04-2024 RBC (Bld) [#/Vol] 3.52 10*6/uL Low 4.2-5.4 [facility] Serum creatinine measurement (mass/volume)Ordered By: Jean-Paul Rothman on 11-04-2024 Creatinine [Mass/Vol] 1.11 mg/dL 0.70-1.20 [facility] Serum glucose measurement (m ass/volume)Ordered By: Jean-Paul Rothman on 11-04-2024 Glucose [Mass/Vol] 69 mg/dL Low 70-99 [facility] Serum or plasma calcium yulia urement (mass/volume)Ordered By: Jean-Paul Rothman on 11-04-2024 Calcium [Mass/Vol] 8.3 mg/dL 7.6-11.0 [facility] Serum or plasma urea nitroge n measurement (mass/volume)Ordered By: Jean-Paul Rothman on 11-04-2024 Urea nitrogen [Mass/Vol] 14 mg/dL 4-19 [facility] Sodium levelOrdered By: Jean-Paul Rothman on 11-04-2024 Sodium [Moles/Vol] 138 mmol/L 133-145 [facility] White blood cell (WBC) count Ordered By: Jean-Paul Rothman on 11-04-2024 WBC (Bld) [#/Vol] 5.4 10*3/uL 4.4-11.0 [facility] Anion gap in Serum or Plasma Ordered By: Jean-Paul Rothman on 08-05-2024 Anion gap [Moles/Vol] 12 mmol/L 5-15 [facility] BUN/creatinine ratioOrdered By: Jean-Paul Rothman on 08-05-2024 Urea nitrogen/Creatinine [Mass ratio] 7.8 mg/mg Low 10-20 [facility] Basic Metabolic Profile (BMP )on 08-05-2024 BUN/CRE 7.8 RATIO Low 10- [facility] Comment on above: Order Comment: 122.2 Performed By: #### L 500.2500, L100.0500 #### [facility] [address] [place], [address] Calcium [Mass/Vol] 8.5 mg/dL Normal 7.6-11.0 [facility] Comment on above: Order Comment: 122.2 Performed By: #### L 500.2500, L100.0500 #### [facility] [address] [place], [address] Chloride [Moles/Vol] 104 mmol/L Normal 98-108 [facility] Comment on above: Order Comment: 122.2 Performed By: #### L 500.2500, L100.0500 #### [facility] [address] [place], [address] CO2 [Moles/Vol] 20.3 mmol/L Low 21.0-32.0 [facility] Comment on above: Order Comment: 122.2 Performed By: #### L 500.2500, L100.0500 #### [facility] [address] [place], [address] Creatinine [Mass/Vol] 1.20 mg/dL Normal 0.70-1.20 [facility] Comment on above: Order Comment: 122.2 Performed By: #### L 500.2500, L100.0500 #### [facility] [address] [place], [address] GAP 12 Normal 5-15 [facility] Comment on above: Order Comment: 122.2 Performed By: #### L 500.2500, L100.0500 #### [facility] [address] [place], [address] GFR/1.73 sq M.predicted among non-blacks MDRD (S/P/Bld) [Vol rate/Area] 47 mL/min/{1.73_m2} Low >60 [facility] Comment on above: Order Comment: 122.2 Result Comment: mL/m in/1.73m2 CKD-EPI Creatinine Equation (2020) Performed By: #### L 500.2500, L100.0500 #### [facility] [address] [place], [address] Glucose [Mass/Vol] 99 mg/dL Normal 70-99 [facility] Comment on above: Order Comment: 122.2 Performed By: #### L 500.2500, L100.0500 #### [facility] [address] [place], [address] Potassium [Moles/Vol] 3.9 mmol/L Normal 3.3-5.1 [facility] Comment on above: Order Comment: 122.2 Performed By: #### L 500.2500, L100.0500 #### [facility] [address] [place], [address] Sodium [Moles/Vol] 136 mmol/L Normal 133-145 [facility] Comment on above: Order Comment: 122.2 Performed By: #### L 500.2500, L100.0500 #### [facility] [address] [place], [address] Urea nitrogen [Mass/Vol] 9 mg/dL Normal 4-19 [facility] Comment on above: Order Comment: 122.2 Performed By: #### L 500.2500, L100.0500 #### [facility] [address] [place], [address] CBC-Complete Blood Cnt No Di ffon 08-05-2024 HCT Normal 37-47 [facility] Comment on above: Order Comment: 122.2 Result Comment: DANIELLE OT FIND TUBE. HEM AND MYSELF LOOKED EVERYWHERE Performed By: #### L 500.2500, L100.0500 #### [facility] [address] [place], [address] HGB Normal 12.0-15.0 [facility] Comment on above: Order Comment: 122.2 Result Comment: DANIELLE OT FIND TUBE. HEM AND MYSELF LOOKED EVERYWHERE Performed By: #### L 500.2500, L100.0500 #### [facility] [address] [place], [address] MCH Normal 27.0-32.0 [facility] Comment on above: Order Comment: 122.2 Result Comment: DANIELLE OT FIND TUBE. HEM AND MYSELF LOOKED EVERYWHERE Performed By: #### L 500.2500, L100.0500 #### [facility] [address] [place], [address] MCHC Normal 32-36 [facility] Comment on above: Order Comment: 122.2 Result Comment: DANIELLE OT FIND TUBE. HEM AND MYSELF LOOKED EVERYWHERE Performed By: #### L 500.2500, L100.0500 #### [facility] [address] [place], [address] MCV Normal 81-99 [facility] Comment on above: Order Comment: 122.2 Result Comment: DANIELLE OT FIND TUBE. HEM AND MYSELF LOOKED EVERYWHERE Performed By: #### L 500.2500, L100.0500 #### [facility] [address] [place], [address] PLT Normal 150-450 [facility] Comment on above: Order Comment: 122.2 Result Comment: DANIELLE OT FIND TUBE. HEM AND MYSELF LOOKED EVERYWHERE Performed By: #### L 500.2500, L100.0500 #### [facility] [address] [place], [address] RBC Normal 4.2-5.4 [facility] Comment on above: Order Comment: 122.2 Result Comment: DANIELLE OT FIND TUBE. HEM AND MYSELF LOOKED EVERYWHERE Performed By: #### L 500.2500, L100.0500 #### [facility] [address] [place], [address] RDW CV Normal 11.6-14.6 [facility] Comment on above: Order Comment: 122.2 Result Comment: DANIELLE OT FIND TUBE. HEM AND MYSELF LOOKED EVERYWHERE Performed By: #### L 500.2500, L100.0500 #### [facility] [address] [place], [address] RDW SD Normal 35.1-43.9 [facility] Comment on above: Order Comment: 122.2 Result Comment: DANIELLE OT FIND TUBE. HEM AND MYSELF LOOKED EVERYWHERE Performed By: #### L 500.2500, L100.0500 #### [facility] [address] [place], [address] WBC Normal 4.4-11.0 [facility] Comment on above: Order Comment: 122.2 Result Comment: DANIELLE OT FIND TUBE. HEM AND MYSELF LOOKED EVERYWHERE Performed By: #### L 500.2500, L100.0500 #### [facility] [address] [place], [address] Carbon dioxide, total [Moles /volume] in Central venous bloodOrdered By: Jean-Paul Rothman on 08-05-2024 CO2 [Moles/Vol] 20.3 mmol/L Low 21.0-32.0 [facility] Chloride assayOrdered By: Kirti Rothman on 08-05-2024 Chloride [Moles/Vol] 104 mmol/L 98-108 [facility] Glomerular filtration rate ( GFR) estimation/1.73 sq m using serum, plasma, or whole bOrdered By: Jean-Paul Rothman on 08-05-2024 GFR/1.73 sq M.predicted among non-blacks MDRD (S/P/Bld) [Vol rate/Area] 47 mL/min/{1.73_m2} Low >60 [facility] Comment on above: mL/min/1.73m2 CKD-EP I Creatinine Equation (2020) Potassium measurement (mass/ volume)Ordered By: Jean-Paul Rothman on 08-05-2024 Potassium (Unsp spec) [Mass/Vol] 3.9 mmol/L 3.3-5.1 [facility] Serum creatinine measurement (mass/volume)Ordered By: Jean-Paul Rothman on 08-05-2024 Creatinine [Mass/Vol] 1.20 mg/dL 0.70-1.20 [facility] Serum glucose measurement (m ass/volume)Ordered By: Jean-Paul Rothman on 08-05-2024 Glucose [Mass/Vol] 99 mg/dL 70-99 [facility] Serum or plasma calcium yulia urement (mass/volume)Ordered By: Jean-Paul Rothman on 08-05-2024 Calcium [Mass/Vol] 8.5 mg/dL 7.6-11.0 [facility] Serum or plasma urea nitroge n measurement (mass/volume)Ordered By: Jean-Paul Rothman on 08-05-2024 Urea nitrogen [Mass/Vol] 9 mg/dL 4-19 [facility] Sodium levelOrdered By: Jean-Paul Rothman on 08-05-2024 Sodium [Moles/Vol] 136 mmol/L 133-145 [facility] Basic Metabolic Profile (BMP )on 05-06-2024 BUN/CRE 13.0 RATIO Normal 10-20 [facility] Comment on above: Order Comment: 122.2 Performed By: #### L 501.9985, L500.2500, L100.0500 #### [facility] [address] [place], [address] CA,Total 9.0 mg/dL Normal 8.5-10.1 [facility] Comment on above: Order Comment: 122.2 Performed By: #### L 501.9985, L500.2500, L100.0500 #### [facility] [address] [place], [address] Chloride [Moles/Vol] 105 mmol/L Normal 98-107 [facility] Comment on above: Order Comment: 122.2 Performed By: #### L 501.9985, L500.2500, L100.0500 #### [facility] [address] [place], [address] CO2 [Moles/Vol] 27.0 mmol/L Normal 21.0-32.0 [facility] Comment on above: Order Comment: 122.2 Performed By: #### L 501.9985, L500.2500, L100.0500 #### [facility] [address] [place], [address] Creatinine [Mass/Vol] 1.23 mg/dL High 0.55-1.02 [facility] Comment on above: Order Comment: 122.2 Result Comment: The validity of the calculated GFR GFRAA in patients over 70 years has not been determined. Clinical correlation is essential. Performed By: #### L 501.9985, L500.2500, L100.0500 #### [facility] [address] [place], [address] EST GFR - AA 55 mL/min Low >60 [facility] Comment on above: Order Comment: 122.2 Result Comment: Afri can [place] GFR Calc Performed By: #### L 501.9985, L500.2500, L100.0500 #### [facility] [address] [place], [address] GAP 3 Low 5-15 [facility] Comment on above: Order Comment: 122.2 Performed By: #### L 501.9985, L500.2500, L100.0500 #### [facility] [address] [place], [address] GFR/1.73 sq M.predicted among non-blacks MDRD (S/P/Bld) [Vol rate/Area] 45 mL/min/{1.73_m2} Low >60 [facility] Comment on above: Order Comment: 122.2 Result Comment: Non- GFR Calc Performed By: #### L 501.9985, L500.2500, L100.0500 #### [facility] [address] [place], [address] Glucose [Mass/Vol] 147 mg/dL High 74-106 [facility] Comment on above: Order Comment: 122.2 Result Comment: Fast ing Glucose result greater than or equal to 126 mg/dL suggests DIABETES MELLITUS per A.D.A. criteria. Performed By: #### L 501.9985, L500.2500, L100.0500 #### [facility] [address] [place], [address] Potassium [Moles/Vol] 4.6 mmol/L Normal 3.5-5.1 [facility] Comment on above: Order Comment: 122.2 Performed By: #### L 501.9985, L500.2500, L100.0500 #### [facility] [address] [place], [address] Sodium [Moles/Vol] 135 mmol/L Low 136-145 [facility] Comment on above: Order Comment: 122.2 Performed By: #### L 501.9985, L500.2500, L100.0500 #### [facility] [address] [place], [address] Urea nitrogen [Mass/Vol] 16 mg/dL Normal 7-18 [facility] Comment on above: Order Comment: 122.2 Performed By: #### L 501.9985, L500.2500, L100.0500 #### [facility] [address] [place], [address] Blood urea nitrogen (BUN)/cr eatinine ratioOrdered By: Jean-Paul Rothman on 05-06-2024 Urea nitrogen/Creatinine [Mass ratio] 13.0 mg/mg 10-20 [facility] CBC-Complete Blood Cnt No Di ffon 05-06-2024 MCH (RBC) [Entitic mass] 35.1 pg High 27.0-32.0 [facility] Comment on above: Order Comment: 122.2 Performed By: #### L 501.9985, L500.2500, L100.0500 #### [facility] [address] [place], [address] MCHC (RBC) [Mass/Vol] 36.9 g/dL High 32-36 [facility] Comment on above: Order Comment: 122.2 Performed By: #### L 501.9985, L500.2500, L100.0500 #### [facility] [address] [place], [address] Hemoglobin (Bld) [Mass/Vol] 10.5 g/dL Low 12.0-15.0 [facility] Comment on above: Order Comment: 122.2 Performed By: #### L 501.9985, L500.2500, L100.0500 #### [facility] [address] [place], [address] Erythrocyte distribution width (RBC) [Ratio] 12.6 % Normal 11.6-14.6 [facility] Comment on above: Order Comment: 122.2 Performed By: #### L 501.9985, L500.2500, L100.0500 #### [facility] [address] [place], [address] Hematocrit (Bld) [Volume fraction] 28.4 % Low 37-47 [facility] Comment on above: Order Comment: 122.2 Performed By: #### L 501.9985, L500.2500, L100.0500 #### [facility] [address] [place], [address] MCV (RBC) [Entitic vol] 95.0 fL Normal 81-99 [facility] Comment on above: Order Comment: 122.2 Performed By: #### L 501.9985, L500.2500, L100.0500 #### [facility] [address] [place], [address] Platelet mean volume (Bld) [Entitic vol] 11.4 fL Normal 6.2-12.0 [facility] Comment on above: Order Comment: 122.2 Performed By: #### L 501.9985, L500.2500, L100.0500 #### [facility] [address] [place], [address] Platelets (Bld) [#/Vol] 166 10*3/uL Normal 150-450 [facility] Comment on above: Order Comment: 122.2 Performed By: #### L 501.9985, L500.2500, L100.0500 #### [facility] [address] [place], [address] RBC (Bld) [#/Vol] 2.99 10*6/uL Low 4.2-5.4 [facility] Comment on above: Order Comment: 122.2 Performed By: #### L 501.9985, L500.2500, L100.0500 #### [facility] [address] [place], [address] RDW SD 40.6 fl Normal 35.1-43.9 [facility] Comment on above: Order Comment: 122.2 Performed By: #### L 501.9985, L500.2500, L100.0500 #### [facility] [address] [place], [address] WBC (Bld) [#/Vol] 5.7 10*3/uL Normal 4.4-11.0 [facility] Comment on above: Order Comment: 122.2 Performed By: #### L 501.9985, L500.2500, L100.0500 #### [facility] [address] [place], [address] Carbon dioxide measurementOr dered By: Jean-Paul Rothman on 05-06-2024 CO2 [Moles/Vol] 27.0 mmol/L 21.0-32.0 [facility] Chloride measurementOrdered By: Jean-Paul Rothman on 05-06-2024 Chloride [Moles/Vol] 105 mmol/L 98-107 [facility] Erythrocyte distribution wid th ratioOrdered By: Jean-Paul Rothman on 05-06-2024 Erythrocyte distribution width (RBC) [Ratio] 12.6 % 11.6-14.6 [facility] Erythrocyte distribution wid th standard deviationOrdered By: Jean-Paul Rothman on 05-06-2024 Erythrocyte distribution width (RBC) [Ratio] 40.6 fl 35.1-43.9 [facility] Glomerular filtration rate ( GFR) estimationOrdered By: Jean-Paul Rothman on 05-06-2024 GFR/1.73 sq M.predicted among non-blacks MDRD (S/P/Bld) [Vol rate/Area] 45 mL/min/{1.73_m2} Low >60 [facility] Comment on above: Non- GFR Calc Glucose measurementOrdered B y: Jean-Paul Rothman on 05-06-2024 Glucose [Mass/Vol] 147 mg/dL High 74-106 [facility] Comment on above: Fasting Glucose resu lt greater than or equal to 126 mg/dL suggests DIABETES MELLITUS per A.D.A. criteria. Hematocrit Auto (Bld) [Volum e fraction]Ordered By: Jean-Paul Rothman on 05-06-2024 Hematocrit (Bld) [Volume fraction] 28.4 % Low 37-47 [facility] Hemoglobin A1con 05-06-2024 HbA1c (Bld) [Mass fraction] 8.3 % High 3.8-5.6 [facility] Comment on above: Order Comment: 122.2 Result Comment: Norm al < 5.7 % Prediabetic 5.7 - 6.4 % Diabetic >or= 6.5 % Please note range changes. Performed By: #### L 501.9991, L500.2500, L100.0500 #### [facility] [address] [place], [place], [id number] Hemoglobin A1c percentageOrd ered By: Jean-Paul Rothman on 05-06-2024 HbA1c (Bld) [Mass fraction] 8.3 % High 3.8-5.6 [facility] Comment on above: Normal < 5.7 % Predi abetic 5.7 - 6.4 % Diabetic >or= 6.5 % Please note range changes. Hemoglobin measurementOrdere d By: Jean-Paul Rothman on 05-06-2024 Hemoglobin (Bld) [Mass/Vol] 10.5 g/dL Low 12.0-15.0 [facility] MCV (mean corpuscular volume ) determinationOrdered By: Jean-Paul Rothman on 05-06-2024 MCV (RBC) [Entitic vol] 95.0 fL 81-99 [facility] Mean corpuscular hemoglobin (MCH) determinationOrdered By: Jean-Paul Rothman on 05-06-2024 MCH (RBC) [Entitic mass] 35.1 pg High 27.0-32.0 [facility] Mean corpuscular hemoglobin concentration (MCHC) determinationOrdered By: Jean-Paul Rothman on 05-06-2024 MCHC (RBC) [Mass/Vol] 36.9 g/dL High 32-36 [facility] Mean platelet volume determi nationOrdered By: Jean-Paul Rothman on 05-06-2024 Platelet mean volume (Bld) [Entitic vol] 11.4 fL 6.2-12.0 [facility] Platelet countOrdered By: Kirti Rothman on 05-06-2024 Platelets (Bld) [#/Vol] 166 10*3/uL 150-450 [facility] Potassium measurementOrdered By: Jean-Paul Rothman on 05-06-2024 Potassium [Moles/Vol] 4.6 mmol/L 3.5-5.1 [facility] RBC Auto (Bld) [#/Vol]Ordere d By: Jean-Paul Rothman on 05-06-2024 RBC (Bld) [#/Vol] 2.99 10*6/uL Low 4.2-5.4 [facility] Serum anion gap measurementO rdered By: Jean-Paul Rothman on 05-06-2024 Anion gap [Moles/Vol] 3 mmol/L Low 5-15 [facility] Serum or plasma calcium yulia urement (mass/volume)Ordered By: Jean-Paul Rothman on 05-06-2024 Calcium [Mass/Vol] 9.0 mg/dL 8.5-10.1 [facility] Serum or plasma creatinine m easurement (mass/volume)Ordered By: Jean-Paul Rothman on 05-06-2024 Creatinine [Mass/Vol] 1.23 mg/dL High 0.55-1.02 [facility] Comment on above: The validity of the calculated GFR & GFRAA in patients over 70 years has not been determined. Clinical correlation is essential. Serum or plasma urea nitroge n measurement (mass/volume)Ordered By: Jean-Paul Rothman on 05-06-2024 Urea nitrogen [Mass/Vol] 16 mg/dL 7-18 [facility] Sodium levelOrdered By: Jean-Paul Rothman on 05-06-2024 Sodium [Moles/Vol] 135 mmol/L Low 136-145 [facility] White blood cell (WBC) count Ordered By: Jean-Paul Rothman on 05-06-2024 WBC (Bld) [#/Vol] 5.7 10*3/uL 4.4-11.0 [facility] Basophil percentageOrdered B y: Jean-Paul Rothman on 05-06-2023 Chloride [Moles/Vol] 108 mmol/L 98-107 [facility] Glucose [Mass/Vol] 138 mg/dL 74-106 [facility] Comment on above: Fasting Glucose resu lt greater than or equal to 126 mg/dL suggests DIABETES MELLITUS per A.D.A. criteria. Potassium [Moles/Vol] 3.7 mmol/L 3.5-5.1 [facility] Sodium [Moles/Vol] 140 mmol/L 136-145 [facility] WBC (Bld) [#/Vol] 7.0 10*3/uL 4.4-11.0 [facility] Blood erythrocytes count (nu mber/volume)Ordered By: Jean-Paul Rothman on 05-06-2023 RBC (Bld) [#/Vol] 4.10 10*6/uL 4.2-5.4 [facility] Blood hemoglobin measurement (mass/volume)Ordered By: Jean-Paul Rothman on 05-06-2023 Hemoglobin (Bld) [Mass/Vol] 12.3 g/dL 12.0-15.0 [facility] Blood platelet mean volumeOr dered By: Jean-Paul Rothman on 05-06-2023 Platelet mean volume (Bld) [Entitic vol] 11.2 fL 6.2-12.0 [facility] Determination of erythrocyte mean corpuscular volume (MCV)Ordered By: Jean-Paul Rothman on 05-06-2023 MCV (RBC) [Entitic vol] 91.7 fL 81-99 [facility] Hematocrit Auto (Bld) [Volum e fraction]Ordered By: Jean-Paul Rothman on 05-06-2023 Hematocrit (Bld) [Volume fraction] 37.6 % 37-47 [facility] - Chemistry and C hemistry - challengeOrdered By: Jean-Paul Rothman on 05-06-2023 CO2 [Moles/Vol] 28.0 mmol/L 21.0-32.0 [facility] Urea nitrogen/Creatinine [Mass ratio] 9.3 mg/mg 10-20 [facility] - Hematology and Cell countsOrdered By: Jean-Paul Rothman on 05-06-2023 Erythrocyte distribution width (RBC) [Entitic vol] 49.7 fL 35.1-43.9 [facility] Erythrocyte distribution width (RBC) [Ratio] 14.9 % 11.6-14.6 [facility] MCH (RBC) [Entitic mass] 30.0 pg 27.0-32.0 [facility] MCHC Auto (RBC) [Mass/Vol]Or dered By: Jean-Paul Rothman on 05-06-2023 MCHC (RBC) [Mass/Vol] 32.7 g/dL 32-36 [facility] No Panel InformationOrdered By: Jean-Paul Rothman on 05-06-2023 Estimated GFR (MDRD) Amer 57 mL/min >60 [facility] Comment on above: GFR Calc Estimated GFR (MDRD) Non-Af Amer 47 mL/min >60 [facility] Comment on above: Non- GFR Calc Platelets bldOrdered By: Vito Rothman on 05-06-2023 Platelets (Bld) [#/Vol] 210 10*3/uL 150-450 [facility] Serum or plasma calcium yulia urement (mass/volume)Ordered By: Jean-Paul Rothman on 05-06-2023 Calcium [Mass/Vol] 8.9 mg/dL 8.5-10.1 [facility] Serum or plasma creatinine m easurement (mass/volume)Ordered By: Jean-Paul Rothman on 05-06-2023 Creatinine [Mass/Vol] 1.18 mg/dL 0.55-1.02 [facility] Comment on above: The validity of the calculated GFR & GFRAA in patients over 70 years has not been determined. Clinical correlation is essential. Serum or plasma urea nitroge n measurement (mass/volume)Ordered By: Jean-Paul Rothman on 05-06-2023 Urea nitrogen [Mass/Vol] 11 mg/dL 7-18 [facility] Thin prep Papanicolaou smear with manual screeningOrdered By: Jean-Paul Rothman on 05-06-2023 Thin prep Papanicolaou smear with manual screening 4 5-15 [facility] Whole blood hemoglobin A1c/t otal hemoglobin ratio (mass fraction)Ordered By: Jean-Paul Rothman on 05-06-2023 HbA1c (Bld) [Mass fraction] 5.5 % 3.8-5.6 [facility] Comment on above: Normal < 5.7 % Predi abetic 5.7 - 6.4 % Diabetic >or= 6.5 % Please note range changes. Basophil percentageOrdered B y: Jean-Paul Rothman on 02-05-2023 Chloride [Moles/Vol] 109 mmol/L 98-107 [facility] Glucose [Mass/Vol] 104 mg/dL 74-106 [facility] Comment on above: Fasting Glucose resu lt from 100 to 125 mg/dL suggests IMPAIRED HOMEOSTASIS per A.D.A. criteria. Potassium [Moles/Vol] 3.6 mmol/L 3.5-5.1 [facility] Sodium [Moles/Vol] 141 mmol/L 136-145 [facility] WBC (Bld) [#/Vol] 5.9 10*3/uL 4.4-11.0 [facility] Blood erythrocytes count (nu mber/volume)Ordered By: Jean-Paul Rothman on 02-05-2023 RBC (Bld) [#/Vol] 3.63 10*6/uL 4.2-5.4 [facility] Blood hemoglobin measurement (mass/volume)Ordered By: Jean-Paul Rothman on 02-05-2023 Hemoglobin (Bld) [Mass/Vol] 10.3 g/dL 12.0-15.0 [facility] Blood platelet mean volumeOr dered By: Jean-Paul Rothman on 02-05-2023 Platelet mean volume (Bld) [Entitic vol] 10.7 fL 6.2-12.0 [facility] Determination of erythrocyte mean corpuscular volume (MCV)Ordered By: Jean-Paul Rothman on 02-05-2023 MCV (RBC) [Entitic vol] 90.6 fL 81-99 [facility] Hematocrit Auto (Bld) [Volum e fraction]Ordered By: Jean-Paul Rothman on 02-05-2023 Hematocrit (Bld) [Volume fraction] 32.9 % 37-47 [facility] - Chemistry and C hemistry - challengeOrdered By: Jean-Paul Rothman on 02-05-2023 CO2 [Moles/Vol] 29.0 mmol/L 21.0-32.0 [facility] Urea nitrogen/Creatinine [Mass ratio] 8.1 mg/mg 10-20 [facility] - Hematology and Cell countsOrdered By: Jean-Paul Rothman on 02-05-2023 Erythrocyte distribution width (RBC) [Entitic vol] 47.4 fL 35.1-43.9 [facility] Erythrocyte distribution width (RBC) [Ratio] 14.4 % 11.6-14.6 [facility] MCH (RBC) [Entitic mass] 28.4 pg 27.0-32.0 [facility] MCHC Auto (RBC) [Mass/Vol]Or dered By: Jean-Paul Rothman on 02-05-2023 MCHC (RBC) [Mass/Vol] 31.3 g/dL 32-36 [facility] No Panel InformationOrdered By: Jean-Paul Rothman on 02-05-2023 Estimated GFR (MDRD) Amer 54 mL/min >60 [facility] Comment on above: GFR Calc Estimated GFR (MDRD) Non-Af Amer 45 mL/min >60 [facility] Comment on above: Non- GFR Calc Platelets bldOrdered By: Vito Rothman on 02-05-2023 Platelets (Bld) [#/Vol] 208 10*3/uL 150-450 [facility] Serum or plasma calcium yulia urement (mass/volume)Ordered By: Jean-Paul Rothman on 02-05-2023 Calcium [Mass/Vol] 8.0 mg/dL 8.5-10.1 [facility] Serum or plasma creatinine m easurement (mass/volume)Ordered By: Jean-Paul Rothman on 02-05-2023 Creatinine [Mass/Vol] 1.24 mg/dL 0.55-1.02 [facility] Comment on above: The validity of the calculated GFR & GFRAA in patients over 70 years has not been determined. Clinical correlation is essential. Serum or plasma urea nitroge n measurement (mass/volume)Ordered By: Jean-Paul Rothman on 02-05-2023 Urea nitrogen [Mass/Vol] 10 mg/dL 7-18 [facility] Thin prep Papanicolaou smear with manual screeningOrdered By: Jean-Paul Rothman on 02-05-2023 Thin prep Papanicolaou smear with manual screening 3 5-15 [facility] Whole blood hemoglobin A1c/t otal hemoglobin ratio (mass fraction)Ordered By: Jean-Paul Rothman on 02-05-2023 HbA1c (Bld) [Mass fraction] 7.4 % 3.8-5.6 [facility] Comment on above: Normal < 5.7 % Predi abetic 5.7 - 6.4 % Diabetic >or= 6.5 % Please note range changes. Culture, urineOrdered By: Kirti Rothman on 01-16-2023 Bacteria identified Cx Nom (U) Culture exhibits no growth. [facility] Bacteria identified Cx Nom (U) Culture exhibits no growth. [facility] Absolute lymphocyte countOrd ered By: Jean-Paul Rothman on 01-07-2023 Lymphocytes Auto (Unsp spec) [#/Vol] 0.85 10*3/uL 0.83-4.51 [facility] Basophil percentageOrdered B y: Jean-Paul Rothman on 01-07-2023 Basophils/100 WBC (Bld) 0.3 % 0-1 [facility] Chloride [Moles/Vol] 105 mmol/L 98-107 [facility] Eosinophils/100 WBC (Bld) 0.1 % 0-5 [facility] Glucose [Mass/Vol] 293 mg/dL 74-106 [facility] Comment on above: Glucose result great er than or equal to 200 mg/dLsuggests DIABETES MELLITUS per A.D.A. criteria. Neutrophils (Bld) [#/Vol] 10.2 10*3/uL 2.0-7.7 [facility] Neutrophils/100 WBC (Bld) 85.2 % 47-70 [facility] Potassium [Moles/Vol] 3.4 mmol/L 3.5-5.1 [facility] Sodium [Moles/Vol] 138 mmol/L 136-145 [facility] WBC (Bld) [#/Vol] 11.9 10*3/uL 4.4-11.0 [facility] Basophil percentage 50-100 SEEN /hpf 0-5 [facility] Bilirubin Test strip Ql (U)O rdered By: Jean-Paul Rothman on 01-07-2023 Bilirubin Ql (U) Negative Negative [facility] Blood erythrocytes count (nu mber/volume)Ordered By: Jean-Paul Rothman on 01-07-2023 RBC (Bld) [#/Vol] 4.33 10*6/uL 4.2-5.4 [facility] Blood hemoglobin measurement (mass/volume)Ordered By: Jean-Paul Rothman on 01-07-2023 Hemoglobin (Bld) [Mass/Vol] 12.4 g/dL 12.0-15.0 [facility] Blood lymphocytes/100 leukoc ytesOrdered By: Jean-Paul Rothman on 01-07-2023 Lymphocytes/100 WBC (Bld) 7.1 % 19-41 [facility] Blood monocytes/100 leukocyt esOrdered By: Jean-Paul Rothman on 01-07-2023 Monocytes/100 WBC (Bld) 6.6 % 0-10 [facility] Blood platelet mean volumeOr dered By: Jean-Paul Rothman on 01-07-2023 Platelet mean volume (Bld) [Entitic vol] 11.7 fL 6.2-12.0 [facility] Culture, urineOrdered By: Kirti Rothman on 01-07-2023 Bacteria identified Cx Nom (U) ESBL Escherichia coli [facility] Determination of erythrocyte mean corpuscular volume (MCV)Ordered By: Jean-Paul Rothman on 01-07-2023 MCV (RBC) [Entitic vol] 89.8 fL 81-99 [facility] Hematocrit Auto (Bld) [Volum e fraction]Ordered By: Jean-Paul Rothman on 01-07-2023 Hematocrit (Bld) [Volume fraction] 38.9 % 37-47 [facility] Ketones Test strip Ql (U)Ord ered By: Jean-Paul Rothman on 01-07-2023 Ketones Ql (U) Negative Negative [facility] - Chemistry and C hemistry - challengeOrdered By: Jean-Paul Rothman on 01-07-2023 CO2 [Moles/Vol] 27.0 mmol/L 21.0-32.0 [facility] Urea nitrogen/Creatinine [Mass ratio] 20.5 mg/mg 10-20 [facility] - Hematology and Cell countsOrdered By: Jean-Paul Rothman on 01-07-2023 Erythrocyte distribution width (RBC) [Entitic vol] 44.4 fL 35.1-43.9 [facility] Erythrocyte distribution width (RBC) [Ratio] 13.5 % 11.6-14.6 [facility] Immature granulocytes/100 WBC (Bld) 0.700 % 0.0-0.9 [facility] Comment on above: IG% - Immature Granu locytes (promyelocytes, myelocytes and metamyelocytes) > 1% indicates that a LEFT SHIFT is Present. MCH (RBC) [Entitic mass] 28.6 pg 27.0-32.0 [facility] Nucleated RBC/100 WBC (Bld) [Ratio] 0 % 0-5 [facility] MCHC Auto (RBC) [Mass/Vol]Or dered By: Jean-Paul Rothman on 01-07-2023 MCHC (RBC) [Mass/Vol] 31.9 g/dL 32-36 [facility] Mucus LM Ql (Urine sed)Order ed By: Jean-Paul Rothman on 01-07-2023 Mucus Ql (Urine sed) 0 SEEN /hpf [facility] Nitrite Test strip Ql (U)Ord ered By: Jean-Paul Rothman on 01-07-2023 Nitrite Ql (U) Positive Negative [facility] No Panel InformationOrdered By: Jean-Paul Rothman on 01-07-2023 Estimated GFR (MDRD) Amer 45 mL/min >60 [facility] Comment on above: GFR Calc Estimated GFR (MDRD) Non-Af Amer 37 mL/min >60 [facility] Comment on above: Non- GFR Calc Platelets bldOrdered By: Vito Rothman on 01-07-2023 Platelets (Bld) [#/Vol] 228 10*3/uL 150-450 [facility] Protein Test strip Ql (U)Ord ered By: Jean-Paul Rothman on 01-07-2023 Protein Ql (U) 500 mg/dl Negative [facility] Serum or plasma calcium yulia urement (mass/volume)Ordered By: Jean-Paul Rothman on 01-07-2023 Calcium [Mass/Vol] 9.0 mg/dL 8.5-10.1 [facility] Serum or plasma creatinine m easurement (mass/volume)Ordered By: Jean-Paul Rothman on 01-07-2023 Creatinine [Mass/Vol] 1.46 mg/dL 0.55-1.02 [facility] Comment on above: The validity of the calculated GFR & GFRAA in patients over 70 years has not been determined. Clinical correlation is essential. Serum or plasma urea nitroge n measurement (mass/volume)Ordered By: Jean-Paul Rothman on 01-07-2023 Urea nitrogen [Mass/Vol] 30 mg/dL 7-18 [facility] Squamous epithelial cells de tection in urine sediment by light microscopyOrdered By: Jean-Paul Rothman on 01-07-2023 Epithelial cells.squamous LM Ql (Urine sed) 0 SEEN /hpf 5-10 [facility] Thin prep Papanicolaou smear with manual screeningOrdered By: Jean-Paul Rothman on 09-13-2023 Thin prep Papanicolaou smear with manual screening 6 5-15 [facility] Urine blood detectionOrdered By: Jean-Paul Rothman on 01-07-2023 RBC Ql (U) 250 /ul Negative [facility] RBC Ql (U) 25-50 SEEN /hpf 0-5 [facility] Urine clarityOrdered By: Vito Rothman on 01-07-2023 Clarity (U) Cloudy Clear [facility] Urine color determinationOrd ered By: Jean-Paul Rothman on 01-07-2023 Color (U) Yellow Yellow [facility] Urine glucose detectionOrder ed By: Jean-Paul Rothman on 01-07-2023 Glucose Ql (U) 100 mg/dl Normal [facility] Urine leukocyte esterase det ection by dipstickOrdered By: Jean-Paul Rothman on 01-07-2023 Leukocyte esterase Test strip Ql (U) 500 /ul Negative [facility] Urine pHOrdered By: Jean-Paul cole on 01-07-2023 pH (U) 6.0 [pH] 5.0 - 8.0 [facility] Urine sediment bacteria coun t by microscopy (number/high power field)Ordered By: Jean-Paul Rothman on 01-07-2023 Bacteria LM.HPF (Urine sed) [#/Area] 4 /[HPF] None Seen [facility] Urine specific gravity measu rementOrdered By: Jean-Paul Rothman on 01-07-2023 Specific gravity (U) [Rel density] 1.015 1.002-1.03 0 [facility] Urobilinogen Auto test strip Ql (U)Ordered By: Jean-Paul Rothman on 01-07-2023 Urobilinogen Ql (U) Normal mg/dl Normal [facility] Basophil percentageOrdered B y: Jean-Paul Rothman on 11-07-2022 Chloride [Moles/Vol] 110 mmol/L 98-107 [facility] Glucose [Mass/Vol] 63 mg/dL 74-106 [facility] Potassium [Moles/Vol] 3.7 mmol/L 3.5-5.1 [facility] Sodium [Moles/Vol] 141 mmol/L 136-145 [facility] WBC (Bld) [#/Vol] 6.2 10*3/uL 4.4-11.0 [facility] Blood erythrocytes count (nu mber/volume)Ordered By: Jean-Paul Rothman on 11-07-2022 RBC (Bld) [#/Vol] 3.59 10*6/uL 4.2-5.4 [facility] Blood hemoglobin measurement (mass/volume)Ordered By: Jean-Paul Rothman on 11-07-2022 Hemoglobin (Bld) [Mass/Vol] 10.7 g/dL 12.0-15.0 [facility] Blood platelet mean volumeOr dered By: Jean-Paul Rothman on 11-07-2022 Platelet mean volume (Bld) [Entitic vol] 10.6 fL 6.2-12.0 [facility] Determination of erythrocyte mean corpuscular volume (MCV)Ordered By: Jean-Paul Rothman on 11-07-2022 MCV (RBC) [Entitic vol] 92.8 fL 81-99 [facility] Hematocrit Auto (Bld) [Volum e fraction]Ordered By: Jean-Paul Rothman on 11-07-2022 Hematocrit (Bld) [Volume fraction] 33.3 % 37-47 [facility] Laboratory - Chemistry and C hemistry - challengeOrdered By: Jean-Paul Rothman on 11-07-2022 CO2 [Moles/Vol] 28.0 mmol/L 21.0-32.0 [facility] Urea nitrogen/Creatinine [Mass ratio] 8.7 mg/mg 10-20 [facility] Laboratory - Hematology and Cell countsOrdered By: Jean-Paul Rothman on 11-07-2022 Erythrocyte distribution width (RBC) [Entitic vol] 45.1 fL 35.1-43.9 [facility] Erythrocyte distribution width (RBC) [Ratio] 13.2 % 11.6-14.6 [facility] MCH (RBC) [Entitic mass] 29.8 pg 27.0-32.0 [facility] MCHC Auto (RBC) [Mass/Vol]Or dered By: Jean-Paul Rothman on 11-07-2022 MCHC (RBC) [Mass/Vol] 32.1 g/dL 32-36 [facility] No Panel InformationOrdered By: Jean-Paul Rothman on 11-07-2022 Estimated GFR (MDRD) Amer 59 mL/min >60 [facility] Comment on above: GFR Calc Estimated GFR (MDRD) Non-Af Amer 49 mL/min >60 [facility] Comment on above: Non- GFR Calc Platelets bldOrdered By: Vito Rothman on 11-07-2022 Platelets (Bld) [#/Vol] 215 10*3/uL 150-450 [facility] Serum or plasma calcium yulia urement (mass/volume)Ordered By: Jean-Paul Rothman on 11-07-2022 Calcium [Mass/Vol] 8.4 mg/dL 8.5-10.1 [facility] Serum or plasma creatinine m easurement (mass/volume)Ordered By: Jean-Paul Rothman on 11-07-2022 Creatinine [Mass/Vol] 1.15 mg/dL 0.55-1.02 [facility] Comment on above: The validity of the calculated GFR & GFRAA in patients over 70 years has not been determined. Clinical correlation is essential. Serum or plasma urea nitroge n measurement (mass/volume)Ordered By: Jean-Paul Rothman on 11-07-2022 Urea nitrogen [Mass/Vol] 10 mg/dL 7-18 [facility] Thin prep Papanicolaou smear with manual screeningOrdered By: Jean-Paul Rothmna on 11-07-2022 Thin prep Papanicolaou smear with manual screening 3 5-15 [facility] Whole blood hemoglobin A1c/t otal hemoglobin ratio (mass fraction)Ordered By: Jean-Paul Rothman on 11-07-2022 HbA1c (Bld) [Mass fraction] 8.2 % 3.8-5.6 [facility] Comment on above: Normal < 5.7 % Predi abetic 5.7 - 6.4 % Diabetic >or= 6.5 % Please note range changes. Basophil percentageOrdered B y: Jean-Paul Rothman on 08-04-2022 Chloride [Moles/Vol] 109 mmol/L 98-107 [facility] Glucose [Mass/Vol] 118 mg/dL 74-106 [facility] Comment on above: Fasting Glucose resu lt from 100 to 125 mg/dL suggests IMPAIRED HOMEOSTASIS per A.D.A. criteria. Potassium [Moles/Vol] 3.6 mmol/L 3.5-5.1 [facility] Sodium [Moles/Vol] 141 mmol/L 136-145 [facility] WBC (Bld) [#/Vol] 7.2 10*3/uL 4.4-11.0 [facility] Blood erythrocytes count (nu mber/volume)Ordered By: Jean-Paul Rothman on 08-04-2022 RBC (Bld) [#/Vol] 3.54 10*6/uL 4.2-5.4 [facility] Blood hemoglobin measurement (mass/volume)Ordered By: Jean-Paul Rothman on 08-04-2022 Hemoglobin (Bld) [Mass/Vol] 10.4 g/dL 12.0-15.0 [facility] Blood platelet mean volumeOr dered By: Jean-Paul Rothman on 08-04-2022 Platelet mean volume (Bld) [Entitic vol] 10.6 fL 6.2-12.0 [facility] Determination of erythrocyte mean corpuscular volume (MCV)Ordered By: Jean-Paul Rothman on 08-04-2022 MCV (RBC) [Entitic vol] 92.7 fL 81-99 [facility] Hematocrit Auto (Bld) [Volum e fraction]Ordered By: Jean-Paul Rothman on 08-04-2022 Hematocrit (Bld) [Volume fraction] 32.8 % 37-47 [facility] Laboratory - Chemistry and C hemistry - challengeOrdered By: Jean-Paul Rothman on 08-04-2022 CO2 [Moles/Vol] 26.0 mmol/L 21.0-32.0 [facility] Urea nitrogen/Creatinine [Mass ratio] 15.5 mg/mg 10-20 [facility] Laboratory - Hematology and Cell countsOrdered By: Jean-Paul Rothman on 08-04-2022 Erythrocyte distribution width (RBC) [Entitic vol] 46.9 fL 35.1-43.9 [facility] Erythrocyte distribution width (RBC) [Ratio] 13.8 % 11.6-14.6 [facility] MCH (RBC) [Entitic mass] 29.4 pg 27.0-32.0 [facility] MCHC Auto (RBC) [Mass/Vol]Or dered By: Jean-Paul Rothman on 08-04-2022 MCHC (RBC) [Mass/Vol] 31.7 g/dL 32-36 [facility] No Panel InformationOrdered By: Jean-Paul Rothman on 08-04-2022 Estimated GFR (MDRD) Amer 67 mL/min >60 [facility] Comment on above: GFR Calc Estimated GFR (MDRD) Non-Af Amer 56 mL/min >60 [facility] Comment on above: Non- GFR Calc Platelets bldOrdered By: Vito Rothman on 08-04-2022 Platelets (Bld) [#/Vol] 213 10*3/uL 150-450 [facility] Serum or plasma calcium yulia urement (mass/volume)Ordered By: Jean-Paul Rothman on 08-04-2022 Calcium [Mass/Vol] 8.3 mg/dL 8.5-10.1 [facility] Serum or plasma creatinine m easurement (mass/volume)Ordered By: Jean-Paul Rothman on 08-04-2022 Creatinine [Mass/Vol] 1.03 mg/dL 0.55-1.02 [facility] Comment on above: The validity of the calculated GFR & GFRAA in patients over 70 years has not been determined. Clinical correlation is essential. Serum or plasma urea nitroge n measurement (mass/volume)Ordered By: Jean-Paul Rothman on 08-04-2022 Urea nitrogen [Mass/Vol] 16 mg/dL 7-18 [facility] Thin prep Papanicolaou smear with manual screeningOrdered By: Jean-Paul Rothman on 08-04-2022 Thin prep Papanicolaou smear with manual screening 6 5-15 [facility] Whole blood hemoglobin A1c/t otal hemoglobin ratio (mass fraction)Ordered By: Jean-Paul Rothman on 08-04-2022 HbA1c (Bld) [Mass fraction] 6.7 % 3.8-5.6 [facility] Comment on above: Normal < 5.7 % Predi abetic 5.7 - 6.4 % Diabetic >or= 6.5 % Please note range changes. Basophil percentageOrdered B y: [facility] on 05-06-2022 Chloride [Moles/Vol] 106 mmol/L 98-107 [facility] Glucose [Mass/Vol] 152 mg/dL 74-106 [facility] Comment on above: Fasting Glucose resu lt greater than or equal to 126 mg/dL suggests DIABETES MELLITUS per A.D.A. criteria. Potassium [Moles/Vol] 4.3 mmol/L 3.5-5.1 [facility] Sodium [Moles/Vol] 138 mmol/L 136-145 [facility] WBC (Bld) [#/Vol] 5.3 10*3/uL 4.4-11.0 [facility] Blood erythrocytes count (nu mber/volume)Ordered By: [facility] on 05-06-2022 RBC (Bld) [#/Vol] 3.96 10*6/uL 4.2-5.4 [facility] Blood hemoglobin measurement (mass/volume)Ordered By: [facility] on 05-06-2022 Hemoglobin (Bld) [Mass/Vol] 11.5 g/dL 12.0-15.0 [facility] Blood platelet mean volumeOr dered By: [facility] on 05-06-2022 Platelet mean volume (Bld) [Entitic vol] 11.1 fL 6.2-12.0 [facility] Determination of erythrocyte mean corpuscular volume (MCV)Ordered By: [facility] on 05-06-2022 MCV (RBC) [Entitic vol] 90.7 fL 81-99 [facility] Hematocrit Auto (Bld) [Volum e fraction]Ordered By: [facility] on 05-06-2022 Hematocrit (Bld) [Volume fraction] 35.9 % 37-47 [facility] Laboratory - Chemistry and C hemistry - challengeOrdered By: [facility] on 05-06-2022 CO2 [Moles/Vol] 24.0 mmol/L 21.0-32.0 [facility] Urea nitrogen/Creatinine [Mass ratio] 17.3 mg/mg 10-20 [facility] Laboratory - Hematology and Cell countsOrdered By: [facility] on 05-06-2022 Erythrocyte distribution width (RBC) [Entitic vol] 49.1 fL 35.1-43.9 [facility] Erythrocyte distribution width (RBC) [Ratio] 15.0 % 11.6-14.6 [facility] MCH (RBC) [Entitic mass] 29.0 pg 27.0-32.0 [facility] MCHC Auto (RBC) [Mass/Vol]Or dered By: [facility] on 05-06-2022 MCHC (RBC) [Mass/Vol] 32.0 g/dL 32-36 [facility] No Panel InformationOrdered By: [facility] on 05-06-2022 Estimated GFR (MDRD) Amer 62 mL/min >60 [facility] Comment on above: GFR Calc Estimated GFR (MDRD) Non-Af Amer 52 mL/min >60 [facility] Comment on above: Non- GFR Calc Platelets bldOrdered By: [facility] on 05-06-2022 Platelets (Bld) [#/Vol] 192 10*3/uL 150-450 [facility] Serum or plasma calcium yulia urement (mass/volume)Ordered By: [facility] on 05-06-2022 Calcium [Mass/Vol] 8.8 mg/dL 8.5-10.1 [facility] Serum or plasma creatinine m easurement (mass/volume)Ordered By: [facility] on 05-06-2022 Creatinine [Mass/Vol] 1.10 mg/dL 0.55-1.02 [facility] Comment on above: The validity of the calculated GFR & GFRAA in patients over 70 years has not been determined. Clinical correlation is essential. Serum or plasma urea nitroge n measurement (mass/volume)Ordered By: [facility] on 05-06-2022 Urea nitrogen [Mass/Vol] 19 mg/dL 7-18 [facility] Thin prep Papanicolaou smear with manual screeningOrdered By: [facility] on 05-06-2022 Thin prep Papanicolaou smear with manual screening 8 5-15 [facility] Whole blood hemoglobin A1c/t otal hemoglobin ratio (mass fraction)Ordered By: [facility] on 05-06-2022 HbA1c (Bld) [Mass fraction] 7.0 % 3.8-5.6 [facility] Comment on above: Normal < 5.7 % Predi abetic 5.7 - 6.4 % Diabetic >or= 6.5 % Please note range changes. Absolute lymphocyte counton 08-08-2021 Lymphocytes Auto (Unsp spec) [#/Vol] 2.81 10*3/uL 0.83-4.51 [facility] Work Phone: Basophil percentageon 2021 Basophils/100 WBC (Bld) 0.4 % 0-1 [facility] Work Phone: Bilirubin [Mass/Vol] 0.30 mg/dL 0.20-1.00 [facility] Work Phone: Comment on above: For patients on eltr ombopag therapy, use of Dimension [place] TBIL is not recommended. Chloride [Moles/Vol] 102 mmol/L 98-107 [facility]: Eosinophils/100 WBC (Bld) 0.9 % 0-5 [facility] Work Phone: Glucose [Mass/Vol] 247 mg/dL 74-106 [facility] Work Phone: Comment on above: Glucose result great er than or equal to 200 mg/dLsuggests DIABETES MELLITUS per A.D.A. criteria. Neutrophils (Bld) [#/Vol] 5.0 10*3/uL 2.0-7.7 [facility] Work Phone: Neutrophils/100 WBC (Bld) 59.0 % 47-70 [facility] Work Phone: Potassium [Moles/Vol] 4.1 mmol/L 3.5-5.1 [facility] Work Phone: Protein [Mass/Vol] 7.5 g/dL 6.4-8.2 [facility] Work Phone: Sodium [Moles/Vol] 135 mmol/L 136-145 [facility] Work Phone: WBC (Bld) [#/Vol] 8.5 10*3/uL 4.4-11.0 [facility] Work Phone: Blood erythrocytes count (nu mber/volume)on 08-08-2021 RBC (Bld) [#/Vol] 4.43 10*6/uL 4.2-5.4 [facility]: Blood hemoglobin measurement (mass/volume)on 08-08-2021 Hemoglobin (Bld) [Mass/Vol] 12.9 g/dL 12.0-15.0 [facility] Work Phone: Blood lymphocytes/100 leukoc yteson 08-08-2021 Lymphocytes/100 WBC (Bld) 33.1 % 19-41 [facility] Work Phone: Blood monocytes/100 leukocyt eson 08-08-2021 Monocytes/100 WBC (Bld) 5.7 % 0-10 [facility] Work Phone: [phone] Blood platelet mean volumeon 08-08-2021 Platelet mean volume (Bld) [Entitic vol] 10.3 fL 6.2-12.0 [facility] Work Phone: Determination of erythrocyte mean corpuscular volume (MCV)on 08-08-2021 MCV (RBC) [Entitic vol] 85.3 fL 81-99 [facility] Work Phone: Glucose Glucometer (BldC) [M ass/Vol]on 08-08-2021 Glucose [Mass/Vol] 257 mg/dL 74-106 [facility] Work Phone: Comment on above: MANAGEMENT OF PATIEN T CARE PER NURSING PROTOCOL Hematocrit Auto (Bld) [Volum e fraction]on 08-08-2021 Hematocrit (Bld) [Volume fraction] 37.8 % 37-47 [facility] Work Phone: Laboratory - Chemistry and C hemistry - challengeon 08-08-2021 ALP [Catalytic activity/Vol] 131 U/L 45-117 [facility] Work Phone: ALT [Catalytic activity/Vol] 16 U/L 13-56 [facility] Work Phone: [phone] CO2 [Moles/Vol] 25.0 mmol/L 21.0-32.0 [facility] Work Phone: [phone] Globulin (S) [Mass/Vol] 4.2 g/dL 2.2-4.2 [facility] Work Phone: [phone] Urea nitrogen/Creatinine [Mass ratio] 13.4 mg/mg 10-20 [facility] Work Phone: [phone] Laboratory - Hematology and Cell countson 08-08-2021 Erythrocyte distribution width (RBC) [Entitic vol] 41.0 fL 35.1-43.9 [facility] Work Phone: [phone] Erythrocyte distribution width (RBC) [Ratio] 13.1 % 11.6-14.6 [facility] Work Phone: [phone] Immature granulocytes/100 WBC (Bld) 0.900 % 0.0-0.9 [facility] Work Phone: [phone] Comment on above: IG% - Immature Granu locytes (promyelocytes, myelocytes and metamyelocytes) > 1% indicates that a LEFT SHIFT is Present. MCH (RBC) [Entitic mass] 29.1 pg 27.0-32.0 [facility] Work Phone: [phone] Nucleated RBC/100 WBC (Bld) [Ratio] 0 % 0-5 [facility] Work Phone: [phone] MCHC Auto (RBC) [Mass/Vol]on 08-08-2021 MCHC (RBC) [Mass/Vol] 34.1 g/dL 32-36 [facility] Work Phone: No Panel Informationon 08-08 Estimated Creatinine Clearance Calc 27.49 ml/min [facility] Work Phone: [phone] Estimated GFR (MDRD) Amer 47 mL/min >60 [facility] Work Phone: [phone] Comment on above: GFR Calc Estimated GFR (MDRD) Non-Af Amer 38 mL/min >60 [facility] Work Phone: [phone] Comment on above: Non- GFR Calc Platelets bldon 08-08-2021 Platelets (Bld) [#/Vol] 260 10*3/uL 150-450 [facility] Work Phone: [phone] Serum or plasma albumin yulia urement (mass/volume)on 08-08-2021 Albumin [Mass/Vol] 3.3 g/dL 3.2-5.0 [facility] Work Phone: [phone] Serum or plasma albumin/glob ulin mass ratioon 08-08-2021 Albumin/Globulin [Mass ratio] 0.8 {ratio} 0.9-2.4 [facility] Work Phone: [phone] Serum or plasma calcium yulia urement (mass/volume)on 08-08-2021 Calcium [Mass/Vol] 8.9 mg/dL 8.5-10.1 [facility] Work Phone: Serum or plasma creatinine m easurement (mass/volume)on 08-08-2021 Creatinine [Mass/Vol] 1.42 mg/dL 0.55-1.02 [facility] Work Phone: Comment on above: The validity of the calculated GFR & GFRAA in patients over 70 years has not been determined. Clinical correlation is essential. Serum or plasma urea nitroge n measurement (mass/volume)on 08-08-2021 Urea nitrogen [Mass/Vol] 19 mg/dL 7-18 [facility] Work Phone: Thin prep Papanicolaou smear with manual screeningon 08-08-2021 Thin prep Papanicolaou smear with manual screening 10 U/L 15 [facility] Work Phone: Thin prep Papanicolaou smear with manual screening 8 -15 [facility] Work Phone: CNOVon 11-08-2020 CNOV Office Visit (GSTNOR ) LISA SHIRLEY ([id number]) 1945 F TXT Date Time Provider Department 11/08/20 11:30 AM TIFFANI BRADEN GSTCHRISTIANOR During your visit today, we recorded the following information about you: Pulse Blood pressure Weight Height 83/minute 152/59 85.7 kg 1.575 m Tiffani Braden PA-C 11/08/2020 1:06 PM Signed Throat Problem HPI Resident of [facility]. Alisha Akins present for encounter. Rolandgiulia Rodas Fern is a 75 year old female here today for Throat Problem. Has had dysphagia with solids/liquids for the past few years. History positive for cerebellar infarction 2019. Pt includes dysphagia started prior to this. Had barium swallow at [facility] 09/2020, which showed mild-moderate oropharyngeal dysphagia as well as significant esophageal retention. GI consult for endoscopy was advised. Is currently on mechanical soft diet at [place] and with diet denies choking, but admits to some regurgitation of non-digested foods. H/o esophageal dilation a few years a go which per patient did not help much. BMs are occasionally constipated, no blood. Does not believe she is having one BM daily, but is not sure. Aide states she is not and last BM [...] had last colonoscopy in June 2017 at [place], [place], which was normal. She was advised [...] ok 08/25 (more content not included)... Normal [facility] Office-Progress Notes-Pr nader 11-04-2020 [facility] Office-Progress Notes-Provider Chief Complaint HTN, HLD History [...] 50,000 intl units (1.25 mg) oral capsule, [address] intl_unit= 1 caps, ORAL, THURSDAY Xanax 0.5 [...] cancer..: Mother and Father. Prostate cancer..: Brother. [facility] Patient Letteron 10-31-2020 Patient Letter (Inserted Image. Lorrie ble to display) October 31, 2020 LISA SHIRLEY [address] [place] [address] Dear, Lisa Shirley Our office has been trying to reach you. Please call us back at your earliest convenience. At [phone]. , [facility] Ambulatory Clinical Summaryo n 10-22-2020 Ambulatory Clinical [...] call to get immediate medical attention! Normal [facility] Dhiraj 06-29-2020 CNOV Office Visit (GSTNOR ) LISA SHIRLEY ([id number]) 1945 F TXT Date Time Provider Department [...] had last colonoscopy in June 2017 at [place], [place], which was normal. She was advised [...] Value 11 (more content not included)... Normal [facility] CNPElizabeth 06-29-2020 [facility] Telephone (ASCNOR) LISA SHIRLEY ([id number]) 1945 F TXT Date Time Provider Department 06/29/20 KATIA SALMERON During your visit today, we recorded the following information about you: MAKENNA ROBLES, RN, RN 06/29/2020 2:44 PM Signed Pt came into the center slightly confused, poor historian. Called [facility], spoke to nurse. Stated pt has had [...] for Visit: Pre-Op Exam [87] Cmt: Called detention for addtitional information for office visit Prescriptions [...] esophagitis [K21.9] 12/28/2018 Coronary artery disease involving [place] thrasher*02/04/2019 Other constipation [K59.09] 06/19/2019 Acute right [...] 35-39.9 [E66.9] 03/19/2020 Encounter Status:Closed by DEPP BEDSPREAD SEAMER, MAKENNA on 06/29/20 Normal [facility] PROGRESSon 05-27-2020 PROGRESS HNO ID: [id number] Author: Leland Herrera Service: ? Author Type: [...] missed all prior follow-up visits due to [facility] failure to coordinate. She did obtain films [...] Intolerance PHYSICAL EXAMINATION: Resp 15 Ht 5' 3 (1.60m) Wt 200 lb (90.7kg) BMI 35.44 [...] 6 weeks (around 07/05/2020). [facility] Office Visit (AGPOB1 ) LISA SHIRLEY ([id number]) 1945 F TXT Date Time Provider Department [...] Intolerance PHYSICAL EXAMINATION: Resp 15 Ht 5' 3 (1.60m) Wt 200 lb (90.7kg) BMI 35.44 [...] in about 6 weeks (around 07/05/2020). Leland Herrear MD Referring Provider: [facility] [[id number]] Allergies As of Date: 05/24/2020 Noted Allergy [...] Intolerance Date Reviewed: 05/24/2020 Reviewed by: Geni [facility] CenterCesario Chance - Fully Assessed Reason for Visit: Post Op [174] Primary Visit Diagnosis:Closed fracture of left ankle with routine healing, subsequent encounter [S82.892D] Prescriptions as of 05/24/2020 Sig: ALPRAZOLAM 0.5 [...] esophagitis [K21.9] 12/28/2018 Coronary artery disease involving kasigl[place] thrasher*02/04/2019 Other constipation [K59.09] 06/19/2019 Acute right [...] Status:Closed by LELAND HERRERA MD on 05/27/20 [facility] 05-17-2020 CYNTHIA Telephone (AGPOB1) LISA SHIRLEY ([id number]) 1945 F TXT Date Time Provider Department 05/17/20 LELAND HERRERA AGPOB1 During your visit today, we recorded the following information about you: Kait Rolonar 05/17/2020 8:34 AM Signed Patient was scheduled to see you in office yesterday. Her Facility, [place] [address] , called to see why she wasn't sent home with an orders or updates. Looking in the system it appears the patient somehow ended up in the Radiology department at [facility] instead our office. They were able to complete her x-rays in [facility]. The facility would like to know an updated WB and ROM status. Kait Donahue May 17, 2020 8:33 AM Kait Donahue 05/17/2020 9:12 AM Signed This patient has missed multiple visits and still has a splint on by imaging. The splint must be removed, all sutures removed and the extremity cleaned daily with soap and water. She may begin weight bearing as tolerated in a walker boot. Kait Donahue 05/17/2020 9:12 AM Signed Called and informed [...] Escalera - Fully Assessed Reason for Visit: Custodial Orders [1309] Prescriptions as of 05/17/2020 Sig: [...] esophagitis [K21.9] 12/28/2018 Coronary artery disease involving kasigluk thrasher*02/04/2019 Other constipation [K59.09] 06/19/2019 Acute right [...] Encounter Status:Closed by [facility] 05-16-2020 CNPN Telephone (AGHWW1) LISA SHIRLEY ([id number]) 1945 F TXT Date Time Provider Department 05/16/20 LELAND HERRERA AGHWW1 During your visit today, we recorded the following information about you: Carmina Atkins 05/16/2020 4:26 PM Signed No Show Documentation Lisa Rodas Fern no showed for an appointment on 05/16/19 [...] Yes Is this the Third or Fourth No Show? No Carmina Atkins May 16, 2020 4:18 [...] esophagitis [K21.9] 12/28/2018 Coronary artery disease involving kasigluk thrasher*02/04/2019 Other constipation [K59.09] 06/19/2019 Acute right [...] Encounter Status:Closed by CARMINA ATKINS on 05/16/20 Normal [facility] PROGRESSon 05-16-2020 PROGRESS HNO ID: [id number] Author: Nory (RtJade Benitez Service: Radiology Author Type: Side Splitter Type: Progress Notes Filed: 05/16/2020 3:46 PM [...] IV DATA: Not applicable SIGNED BY: RT Ftamata May 16, 2020 3:45 PM Normal [facility] XR ANKLE 3V AP/LAT/OBL LTon 05-16-2020 XR [...] talar dome, similar compared to prior radiograph. Director Of Archives: PSCB Transcribe Date/Time: May 16 2020 4:04P Dictated by : JULIUS ESPINAL MD This examination was interpreted and the report reviewed and electronically signed by: JULIUS ESPINAL MD on May 16 2020 4:09PM EST [facility] Telephone (AGPOB1) LISA SHIRLEY ([id number]) 1945 F TXT Date Time Provider Department 04/06/20 LELAND HERRERA POB1 During your visit today, we recorded the [...] yes Is this the Third or Fourth No Show? No Gayathri Forte CMA April 06, 2020 [...] esophagitis [K21.9] 12/28/2018 Coronary artery disease involving kasigl[place] thrasher*02/04/2019 Other constipation [K59.09] 06/19/2019 Acute right [...] by GAYATHRI FORTE CMA on 04/18/20 Normal [facility] CASE MANAGEMon 03-22-2020 CASE MANAGEM HNO ID: [id number] Author: Paulette Cruz (Sw) Service: ? Author Type: Natural Gas Engineer Type: Care Mgt Progress Note Filed: 03/22/2020 11:36 AM Note Text: CARE MANAGEMENT DISCHARGE NOTE SERVICE DATE: 03/22/2020 SERVICE TIME: 11:31 AM LOS: 14 days Admission Date: 03/08/2020 DISCHARGE ARRANGEMENT (list agency and phone number) Discharge Arrangement: Acute rehab Provider Name: Doe ROSSANA CAREGIVER ASSESSMENT: Caregiver is ready, willing and able to meet the patient's needs as recommended by the inter-professional team:: Yes Does the patient have an acute stroke diagnosis, or has the patient had a stroke during this admission?: Yes Patient's transition needs and plan for meeting these needs: AR HANDOFF COMMUNICATION: Handoff to: Other Caregiver Other Caregiver Name/Phone: RN to call report to [phone] TRANSPORTATION ARRANGEMENTS: Transportation Arrangements: Ambulance/[facility] Transportation Agency and Phone #:: [facility] ( [facility] ) [phone] / [phone] Date of Trip: 03/22/20 Time of Trip: 1400 Type of Service: BLS Non-emergency Is Patient Medicaid Pending?: No Discussion of financial coverage occurred with: Patient Home Based Assistant Location: [facility] Destination: [facility] ADDITIONAL CONTACT RESOURCES: Ayo Arreguin [phone] JESUS confirmed pt to admit to [facility] today. Faxed over d/c summary, updated son with transport time. Updated RN and pt. SIGNATURE: JESUS Alvarez PATIENT NAME: Lisa Shirley DATE: March 22, 2020 TIME: 11:31 AM PAGER/CONTACT #: [phone] [facility] NURSING PROGon 03-22-2020 NURSING PROG HNO ID: [id number] Author: Quynh Melendez (Rn) JONNY Manzanares Service: ? Author Type: Registered Nurse Type: Nursing Progress Note Filed: 03/22/2020 12:27 PM Note Text: Nursing Progress Note Patient Name: Lisa Shirley Patient Location: [id number] 1 Daily Note:1226: report called to [facility]. All questions answered. This note was completed by: Quynh Manzanares RN [facility] NURSING PROG HNO ID: [id number] Author: Quynh Melendez (Rn) JONNY Manzanares Service: ? Author Type: Registered Nurse Type: Nursing Progress Note Filed: 03/22/2020 12:15 PM Note Text: Nursing Progress Note Patient Name: Lisa Shirley Patient Location: [id number] 1 Daily Note: 1115: spoke to Dr Rawls regarding discharging patient with event record monitor. Stated okay to d/c without and pt can have one mailed to her. Left message with cardiac function regarding event record monitor for patient. This note was completed by: Quynh Manzanares RN [facility] CASE MANAGEMon 03-21-2020 CASE MANAGEM HNO ID: [id number] Author: AMADOU Grubbs (Lisw) Service: Social Work Author Type: Natural Gas Engineer Type: Care Mgt Progress Note Filed: 03/21/2020 3:19 PM Note Text: CARE MANAGEMENT PROGRESS NOTE SERVICE DATE: 03/21/2020 SERVICE TIME: 3:17 PM LOS: 13 days ... [facility] has accepted patient if medically stable for tomorrow. If not patient will have to wait until Sun 03/25. Called patient to discuss and called son, Osmany who is in agreement. Cot clip, covid tool and envelope completed. SIGNATURE: AMADOU Grubbs PATIENT NAME: Lisa Shirley DATE: March 21, 2020 TIME: 3:17 PM PAGER/CONTACT #: [phone] [facility] CASE MANAGEM HNO ID: [id number] Author: AMADOU Grubbs (Lisw) Service: Social Work Author Type: Natural Gas Engineer Type: Care Mgt Progress Note Filed: 03/21/2020 2:58 PM Note Text: CARE MANAGEMENT PROGRESS NOTE SERVICE DATE: 03/21/2020 SERVICE TIME: 2:58 PM LOS: 13 days IMM Follow Up Copy Given: Yes Copy given to:: Patient Method: By Phone IM letter given to patient. SIGNATURE: AMADOU Grubbs PATIENT NAME: Lisa Shirley DATE: March 21, 2020 TIME: 2:57 PM PAGER/CONTACT #: [phone] [facility] CASE MANAGEM HNO ID: [id number] Author: AMADOU Grubbs (Lisw) Service: Social Work Author Type: Natural Gas Engineer Type: Care Mgt Progress Note Filed: 03/21/2020 11:22 AM Note Text: CARE MANAGEMENT PROGRESS NOTE SERVICE DATE: 03/21/2020 SERVICE TIME: 9:57 AM LOS: 13 days ... Therapy updates sent to [facility].Awaiting acceptance Cleed patient who had some concerns about her utilities. Phone is busy currently. Will keep trying. Addendum: [facility] called and have beds now but would need a negative covid test before they would take her and she could only be admitted on , or Sunday 03/25 due to their staffing. Discussed with Dr. Rawls and messaged Dr. Fulton for rapid covid test. SIGNATURE: AMADOU Grubbs PATIENT NAME: Lisa Shirley DATE: March 21, 2020 TIME: 9:57 AM PAGER/CONTACT #: [phone] Normal [facility] CBC W Auto Diff Bldon 2019 Basophils (Bld) [#/Vol] 0.03 10*3/uL Normal <0.11 [facility] Comment on above: Order Comment: Speci men Type: BLOOD SPECIMEN Performed By: #### 5 7021-8 ####[facility] [id number] [place] [address] Basophils/100 WBC (Bld) 0.2 % Normal [facility] Comment on above: Order Comment: Speci men Type: BLOOD SPECIMEN Performed By: #### 5 7021-8 ####[facility] [id number] [place] [address] Differential cell count method Nom (Bld) Auto Normal [facility] Comment on above: Order Comment: Speci men Type: BLOOD SPECIMEN Performed By: #### 5 7021-8 ####[facility]IA [id number] [place] [address] Eosinophils (Bld) [#/Vol] 0.05 10*3/uL Normal <0.46 [facility] Comment on above: Order Comment: Speci men Type: BLOOD SPECIMEN Performed By: #### 5 7021-8 ####[facility]IA [id number] [place] [address] Eosinophils/100 WBC (Bld) 0.3 % Normal [facility] Comment on above: Order Comment: Speci men Type: BLOOD SPECIMEN Performed By: #### 5 7021-8 ####[facility]IA [id number] [place] [address] Erythrocyte distribution width (RBC) [Ratio] 13.3 % Normal 11.5-15.0 [facility] Comment on above: Order Comment: Speci men Type: BLOOD SPECIMEN Performed By: #### 5 7021-8 ####[facility]IA [id number] [place] [address] Hematocrit (Bld) [Volume fraction] 33.3 % Low 36.0-46.0 [facility] Comment on above: Order Comment: Speci men Type: BLOOD SPECIMEN Performed By: #### 5 7021-8 ####[facility] [id number] [place] [address] Hemoglobin (Bld) [Mass/Vol] 11.1 g/dL Low 11.5-15.5 [facility] Comment on above: Order Comment: Speci men Type: BLOOD SPECIMEN Performed By: #### 5 7021-8 ####[facility]IA [id number] [place] [address] IMMATURE GRAN % 0.9 % Normal [facility] Comment on above: Order Comment: Speci men Type: BLOOD SPECIMEN Performed By: #### 5 7021-8 ####[facility]IA [id number] [place] [address] IMMATURE GRAN ABS 0.13 k/uL High <0.10 [facility] Comment on above: Order Comment: Speci men Type: BLOOD SPECIMEN Performed By: #### 5 7021-8 ####[facility] LABORATORYCLIA [id number] [place] [address] Lymphocytes (Bld) [#/Vol] 2.64 10*3/uL Normal 1.00-4.00 [facility] Comment on above: Order Comment: Speci men Type: BLOOD SPECIMEN Performed By: #### 5 7021-8 ####[facility]IA [id number] [place] [address] Lymphocytes/100 WBC (Bld) 18.4 % Normal [facility] Comment on above: Order Comment: Speci men Type: BLOOD SPECIMEN Performed By: #### 5 7021-8 ####[facility]ORYCLIA [id number] [place] [address] MCH (RBC) [Entitic mass] 30.7 pg Normal 26.0-34.0 [facility] Comment on above: Order Comment: Speci men Type: BLOOD SPECIMEN Performed By: #### 5 7021-8 ####[facility]CLIA [id number] [place] [address] MCHC (RBC) [Mass/Vol] 33.3 g/dL Normal 30.5-36.0 [facility] Comment on above: Order Comment: Speci men Type: BLOOD SPECIMEN Performed By: #### 5 7021-8 ####[facility] LABORATORYCLIA [id number] [place] [address] MCV (RBC) [Entitic vol] 92.0 fL Normal 80.0-100.0 [facility] Comment on above: Order Comment: Speci men Type: BLOOD SPECIMEN Performed By: #### 5 7021-8 ####[facility]ORATORYCLIA [id number] [place] [address] Monocytes (Bld) [#/Vol] 0.97 10*3/uL High <0.87 [facility] Comment on above: Order Comment: Speci men Type: BLOOD SPECIMEN Performed By: #### 5 7021-8 ####[facility]ORYCLIA [id number] [place] [address] Monocytes/100 WBC (Bld) 6.8 % Normal [facility] Comment on above: Order Comment: Speci men Type: BLOOD SPECIMEN Performed By: #### 5 7021-8 ####[facility] LABORATORYCLIA [id number] [place] [address] Neutrophils (Bld) [#/Vol] 10.50 10*3/uL High 1.45-7.50 [facility] Comment on above: Order Comment: Speci men Type: BLOOD SPECIMEN Performed By: #### 5 7021-8 ####[facility]CLIA [id number] [place] [address] Neutrophils/100 WBC (Bld) 73.4 % Normal [facility] Comment on above: Order Comment: Speci men Type: BLOOD SPECIMEN Performed By: #### 5 7021-8 ####[facility]ORYCLIA [id number] [place] [address] Nucleated RBC (Bld) [#/Vol] 10*3/uL Normal <0.01 [facility] Comment on above: Order Comment: Speci men Type: BLOOD SPECIMEN Performed By: #### 5 7021-8 ####[facility]ORYCLIA [id number] [place] [address] Nucleated RBC/100 WBC (Bld) [Ratio] 0.0 /100 WBC Normal 0.0 [facility] Comment on above: Order Comment: Speci men Type: BLOOD SPECIMEN Performed By: #### 5 7021-8 ####[facility]ORATORYCLIA [id number] [place] [address] Platelet mean volume (Bld) [Entitic vol] 11.5 fL Normal 9.0-12.7 [facility] Comment on above: Order Comment: Speci men Type: BLOOD SPECIMEN Performed By: #### 5 7021-8 ####[facility] LABORATORYCLIA [id number] [place] [address] Platelets (Bld) [#/Vol] 206 10*3/uL Normal 150-400 [facility] Comment on above: Order Comment: Speci men Type: BLOOD SPECIMEN Performed By: #### 5 7021-8 ####[facility]ORATORYCLIA [id number] [place] [address] RBC (Bld) [#/Vol] 3.62 10*6/uL Low 3.90-5.20 [facility] Comment on above: Order Comment: Speci men Type: BLOOD SPECIMEN Performed By: #### 5 7021-8 ####[facility]OR[facility]ORYCLIA [id number] [place] [address] WBC (Bld) [#/Vol] 14.32 10*3/uL High 3.70-11.00 [facility] Comment on above: Order Comment: Speci men Type: BLOOD SPECIMEN Performed By: #### 5 7021-8 ####[facility]ORYCLIA [id number] [place] [address] CONSULT PROGon 03-21-2020 CONSULT PROG HNO ID: [id number] Author: Marissa Banks Service: Endocrinology Author Type: [...] POSIFLUSH) 20 mL INTRAVENOUS PRN - pill machine feed operator (patient-specific) 1 Each Miscell. (Med.Supl.;Non-Drugs) PRN - [...] (Src) 97.2 (Oral) Resp 16 Ht 5' 6 (1.68m) Wt 217 lb 8 oz (98.7kg) SpO2 99% BMI 35.12 kg/(m2). O2 Therapy: Room Air DATA: Diagnostic tests reviewed for today's visit: Most recent labs and imaging results. Last 24 hr BS reviewed. Recent Labs 03/21/20 0544 03/20/20203603/20/20 1741 03/20/20 0749 03/20/20 0529 03/20/20 0527 [...] bid and Januvia 100 mg daily. BS high at home per pt. On steroids, started [...] 2020 TIME: 7:12 AM PAGER: [phone] Normal [facility] Comp Metab 2000 Pnl SerPlon 03-21-2020 Albumin [Mass/Vol] 2.5 g/dL Low 3.9-4.9 [facility] Comment on above: Order Comment: Speci men Type: BLOOD SPECIMEN Performed By: #### 2 4321-2 #### [facility] CLIA [id number] [address] [place] [address] ALP [Catalytic activity/Vol] 56 U/L Normal 34-123 [facility] Comment on above: Order Comment: Speci men Type: BLOOD SPECIMEN Performed By: #### 2 4321-2 #### [facility] CLIA [id number] [address] [place] [address] ALT With P-5'-P [Catalytic activity/Vol] 11 U/L Normal 7-38 [facility] Comment on above: Order Comment: Speci men Type: BLOOD SPECIMEN Performed By: #### 2 4321-2 #### [facility] CLIA [id number] [address] [place] [address] Anion gap [Moles/Vol] 8 mmol/L Low 9-18 [facility] Comment on above: Order Comment: Speci men Type: BLOOD SPECIMEN Performed By: #### 2 4321-2 #### [facility] CLIA [id number] [address] [place] [address] AST With P-5'-P [Catalytic activity/Vol] 18 U/L Normal 13-35 [facility] Comment on above: Order Comment: Speci men Type: BLOOD SPECIMEN Performed By: #### 2 4321-2 #### [facility] CLIA [id number] [address] [place] [address] Bilirubin [Mass/Vol] 0.6 mg/dL Normal 0.2-1.3 [facility] Comment on above: Order Comment: Speci men Type: BLOOD SPECIMEN Performed By: #### 2 4321-2 #### [facility] CLIA [id number] [address] [place] [address] Calcium [Mass/Vol] 7.1 mg/dL Low 8.5-10.2 [facility] Comment on above: Order Comment: Speci men Type: BLOOD SPECIMEN Performed By: #### 2 4321-2 #### [facility] CLIA [id number] [address] [place] [address] Chloride [Moles/Vol] 114 mmol/L High 97-105 [facility] Comment on above: Order Comment: Speci men Type: BLOOD SPECIMEN Performed By: #### 2 4321-2 #### [facility] CLIA [id number] [address] [place] [address] CO2 [Moles/Vol] 19 mmol/L Low 22-30 [facility] Comment on above: Order Comment: Speci men Type: BLOOD SPECIMEN Performed By: #### 2 4321-2 #### [facility] CLIA [id number] [address] [place] [address] Creatinine [Mass/Vol] 0.93 mg/dL Normal 0.58-0.96 [facility] Comment on above: Order Comment: Speci men Type: BLOOD SPECIMEN Performed By: #### 2 4321-2 #### [facility] CLIA [id number] [address] [place] [address] GFR/1.73 sq M.predicted MDRD (S/P/Bld) [Vol rate/Area] mL/min/{1.73_m2} Normal [facility] Comment on above: Order Comment: Speci men [...] GFR. Performed By: #### 2 4321-2 #### [facility] CLIA [id number] [address] [place] [address] Glucose [Mass/Vol] 94 mg/dL Normal 74-99 [facility] Comment on above: Order Comment: Speci men Type: BLOOD SPECIMEN Result Comment: The [place] Diabetes Association (ADA) provides guidance for cutoff [...] Standards of Medical Care in Diabetes 2016, [place] Diabetes Association. Diabetes Care. 2016.39(Suppl 1). Performed By: #### 2 4321-2 #### [facility] CLIA [id number] [address] [place] [address] Potassium [Moles/Vol] 3.3 mmol/L Low 3.7-5.1 [facility] Comment on above: Order Comment: Speci men Type: BLOOD SPECIMEN Performed By: #### 2 4321-2 #### [facility] CLIA [id number] [address] [place] [address] Protein [Mass/Vol] 4.9 g/dL Low 6.3-8.0 [facility] Comment on above: Order Comment: Speci men Type: BLOOD SPECIMEN Performed By: #### 2 4321-2 #### [facility] CLIA [id number] [address] [place] [address] Sodium [Moles/Vol] 141 mmol/L Normal 136-144 [facility] Comment on above: Order Comment: Speci men Type: BLOOD SPECIMEN Performed By: #### 2 4321-2 #### [facility] CLIA [id number] [address] [place] [address] Urea nitrogen [Mass/Vol] 14 mg/dL Normal 7-21 [facility] Comment on above: Order Comment: Speci men Type: BLOOD SPECIMEN Performed By: #### 2 4321-2 #### [facility] CLIA [id number] [address] [place] [address] NURSING PROGon 03-21-2020 NURSING PROG HNO ID: [id number] Author: Aron (Rn) JONNY Rothman Service: ? Author Type: Registered Nurse Type: Nursing Progress Note Filed: 03/21/2020 12:39 AM Note Text: Nursing Progress: Topic: RESTRAINT NON-VIOLENT PATIENT NAME: Lisa Shirley PATIENT LOCATION: [place] [address] [address]* The patient demonstrates Attempting to Remove Medical [...] TIME: 12:35 AM Aron Rothman RN Normal [facility] PROGRESSon 03-21-2020 PROGRESS HNO ID: [id number] Author: Theo Rawls MD Service: Hospital Medicine Author Type: Physician Type: Progress Notes Filed: 03/21/2020 7:01 PM Note Text: DEPARTMENT OF HOSPITAL MEDICINE PROGRESS NOTE SERVICE DATE: 03/21/2020 SERVICE TIME: 6:57 PM Hospital Medicine/Primary Attending: Theo Rawls MD NIGHT AND WEEKEND COVERAGE: After 7pm please page [phone] CHIEF COMPLAINT: Follow-up for cerebrovascular accident SUBJECTIVE: Patient seen and examined. Complains of pain all over. Complains of being stiff. Complains of a headache. OBJECTIVE: PHYSICAL EXAM: BP 100/58 Pulse 91 Temp (Src) 98.1 (Axillary) Resp 18 Ht 5' 6 (1.68m) Wt 217 lb 8 oz (98.7kg) [...] POSIFLUSH) 20 mL INTRAVENOUS PRN - pill machine feed operator (patient-specific) 1 Each Miscell. (Med.Supl.;Non-Drugs) PRN - [...] Will be needing acute rehabilitation. Plans for March walk. Possible discharge tomorrow. 2. Trimalleolar left ankle [...] TIME: 6:57 PM PAGER/CONTACT #: brenda Montesinos [facility] PROGRESS HNO ID: [id number] Author: Leland Herrera Service: Orthopaedic Surgery Author [...] (Oral) Resp 16 Ht 167.6 cm (5' 6) Wt 98.5 kg (217 lb 1.6 oz) [...] MD Orthopedic Surgery Resident 03/21/2020 4:06 AM [facility] SARS-CoV-2 RNA Resp Ql SHLOMO+p robeon 03-21-2020 SARS-CoV-2 RNA Resp Ql SHLOMO+probe COVID 19 RESULT: SARS-CoV-2 (Agent of COVID-19) Not Detected by PCR. This test has been authorized by FDA under an Emergency Use Authorization (EUA) Normal [facility] Comment on above: Performed By: #### 9 4500-6 ####[facility]ORYCLIA [id number] [place] [address] THERAPY NTon 03-21-2020 THERAPY NT HNO ID: [id number] Author: Shannan Jean-BaptisteOtr/Darion Richard Service: Occupational Therapy Author Type: Occupational Therapist Type: Therapy (PT/OT/Speech/Resp) Filed: 03/21/2020 4:04 PM Note Text: Occupational Therapy Treatment SERVICE DATE: 03/21/2020 SERVICE TIME: 1514 to 1537 ROOM: [place] [address] Recommended Discharge Disposition: Acute Rehab Recommended Discharge [...] Walk in Laundry: Minimally completes Equipment Owned: Fnbox-Shower Prior Functional Level: (driving, activity limited by LBP) Prior Functional Level Comments: 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; 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 d/t 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 pain [...] (ADL);Muscle Weakness (generalized) Interventions Provided: Cognitive Training (72062 and 95782);Self Fpc Management (83283) Self Fpc Management (93488) Treatment Minutes: 15 $ Self Fpc Management (44287) Billed Units: 1 unit Cognitive Training Per First 15 Minutes (37252) : 8 $ Cognitive Training Per First 15 Minutes Billed Units (76067) 2020: 1 unit Engaged patient in orientation [...] if you smell gas in the house? I don't know 2. What would you do if a fire starts on the stove? I don't know would you call anyone? I would call the fire department. What is their number? 3. What would you do if a family member is ill? I live alone, so I don't know 4. What would you do if a tornado is sighted in your area? I don't know 5. What would you do if your cut your finger? I don't know, I guess call what if it is a small cut? I don't know Patient requires increased time to process safety [...] March 21, 2020 TIME: 3:50 PM Normal [facility] Bas Metab 2000 Pnl SerPlon 1 05-20-2019 Anion gap [Moles/Vol] 9 mmol/L Normal 9-18 [facility] Comment on above: Order Comment: Speci men Type: BLOOD SPECIMEN Performed By: #### 2 4321-2 ####[facility]OR[facility]ORYCLIA [id number] [place] [address] Calcium [Mass/Vol] 7.6 mg/dL Low 8.5-10.2 [facility] Comment on above: Order Comment: Speci men Type: BLOOD SPECIMEN Performed By: #### 2 4321-2 ####[facility]ORYCLIA [id number] [place] [address] Chloride [Moles/Vol] 111 mmol/L High 97-105 [facility] Comment on above: Order Comment: Speci men Type: BLOOD SPECIMEN Performed By: #### 2 4321-2 ####[facility]ORYCLIA [id number] [place] [address] CO2 [Moles/Vol] 22 mmol/L Normal 22-30 [facility] Comment on above: Order Comment: Speci men Type: BLOOD SPECIMEN Performed By: #### 2 4321-2 ####[facility]ORATORYCLIA [id number] [place] [address] Creatinine [Mass/Vol] 1.00 mg/dL High 0.58-0.96 [facility] Comment on above: Order Comment: Speci men Type: BLOOD SPECIMEN Performed By: #### 2 4321-2 ####[facility] LABORATORYCLIA [id number] [place] [address] GFR/1.73 sq M.predicted MDRD (S/P/Bld) [Vol rate/Area] mL/min/{1.73_m2} Normal [facility] Comment on above: Order Comment: Speci men [...] actual GFR. Performed By: #### 2 4321-2 ####[facility] LABORATORYCLIA [id number] [place] [address] Glucose [Mass/Vol] 134 mg/dL High 74-99 [facility] Comment on above: Order Comment: Speci men Type: BLOOD SPECIMEN Result Comment: The [place] Diabetes Association (ADA) provides guidance for cutoff [...] Standards of Medical Care in Diabetes 2016, [place] Diabetes Association. Diabetes Care. 2016.39(Suppl 1). Performed By: #### 2 4321-2 ####[facility] LABORATORYCLIA [id number] [place] [address] Potassium [Moles/Vol] 3.7 mmol/L Normal 3.7-5.1 [facility] Comment on above: Order Comment: Speci men Type: BLOOD SPECIMEN Performed By: #### 2 4321-2 ####[facility] LABORATORYCLIA [id number] [place] [address] Sodium [Moles/Vol] 142 mmol/L Normal 136-144 [facility] Comment on above: Order Comment: Speci men Type: BLOOD SPECIMEN Performed By: #### 2 4321-2 ####[facility] LABORATORYCLIA [id number] [place] [address] Urea nitrogen [Mass/Vol] 18 mg/dL Normal 7-21 [facility] Comment on above: Order Comment: Speci men Type: BLOOD SPECIMEN Performed By: #### 2 4321-2 ####[facility] LABORATORYCLIA [id number] [place] [address] CASE MANAGEMon 03-20-2020 CASE MANAGEM HNO ID: [id number] Author: AMADOU Grubbs (Lisw) Service: Social Work Author Type: Natural Gas Engineer Type: Care Mgt Progress Note Filed: 03/20/2020 10:46 AM Note Text: CARE MANAGEMENT PROGRESS NOTE SERVICE DATE: 03/20/2020 SERVICE TIME: 10:36 AM LOS: 12 days ... Called patient and she was very anxious and repeating herself I want out Spoke with Patient's nurse and patient is in restraints after her surgery.. Called her son, Osmany and discussed plans. Son is agreeable to Acute rehab Referrals. [facility] send referrals to [facility]. SIGNATURE: AMADOU Grubbs PATIENT NAME: Lisa Shirley DATE: March 20, 2020 TIME: 10:36 AM PAGER/CONTACT #: [phone] Normal [facility] CBC W Auto Diff Bldon 2019 Basophils (Bld) [#/Vol] 10*3/uL Normal <0.11 [facility] Comment on above: Order Comment: Speci men Type: BLOOD SPECIMEN Performed By: #### 5 7021-8 #### [facility] CLIA [id number] [address] [place] [address] Basophils/100 WBC (Bld) 0.1 % Normal [facility] Comment on above: Order Comment: Speci men Type: BLOOD SPECIMEN Performed By: #### 5 7021-8 #### [facility] CLIA [id number] [address] [place] [address] Differential cell count method Nom (Bld) Auto Normal [facility] Comment on above: Order Comment: Speci men Type: BLOOD SPECIMEN Performed By: #### 5 7021-8 #### [facility] CLIA [id number] [address] [place] [address] Eosinophils (Bld) [#/Vol] 10*3/uL Normal <0.46 [facility] Comment on above: Order Comment: Speci men Type: BLOOD SPECIMEN Performed By: #### 5 7021-8 #### [facility] CLIA [id number] [address] [place] [address] Eosinophils/100 WBC (Bld) 0.1 % Normal [facility] Comment on above: Order Comment: Speci men Type: BLOOD SPECIMEN Performed By: #### 5 7021-8 #### [facility] CLIA [id number] [address] [place] [address] Erythrocyte distribution width (RBC) [Ratio] 13.2 % Normal 11.5-15.0 [facility] Comment on above: Order Comment: Speci men Type: BLOOD SPECIMEN Performed By: #### 5 7021-8 #### [facility] CLIA [id number] [address] [place] [address] Hematocrit (Bld) [Volume fraction] 37.0 % Normal 36.0-46.0 [facility] Comment on above: Order Comment: Speci men Type: BLOOD SPECIMEN Performed By: #### 5 7021-8 #### [facility] CLIA [id number] [address] [place] [address] Hemoglobin (Bld) [Mass/Vol] 12.7 g/dL Normal 11.5-15.5 [facility] Comment on above: Order Comment: Speci men Type: BLOOD SPECIMEN Performed By: #### 5 7021-8 #### [facility] CLIA [id number] [address] [place] [address] IMMATURE GRAN % 1.0 % Normal [facility] Comment on above: Order Comment: Speci men Type: BLOOD SPECIMEN Performed By: #### 5 7021-8 #### [facility] CLIA [id number] [address] [place] [address] IMMATURE GRAN ABS 0.15 k/uL High <0.10 [facility] Comment on above: Order Comment: Speci men Type: BLOOD SPECIMEN Performed By: #### 5 7021-8 #### [facility] CLIA [id number] [address] [place] [address] Lymphocytes (Bld) [#/Vol] 2.58 10*3/uL Normal 1.00-4.00 [facility] Comment on above: Order Comment: Speci men Type: BLOOD SPECIMEN Performed By: #### 5 7021-8 #### [facility] CLIA [id number] [address] [place] [address] Lymphocytes/100 WBC (Bld) 17.3 % Normal [facility] Comment on above: Order Comment: Speci men Type: BLOOD SPECIMEN Performed By: #### 5 7021-8 #### [facility] CLIA [id number] [address] [place] [address] MCH (RBC) [Entitic mass] 31.1 pg Normal 26.0-34.0 [facility] Comment on above: Order Comment: Speci men Type: BLOOD SPECIMEN Performed By: #### 5 7021-8 #### [facility] CLIA [id number] [address] [place] [address] MCHC (RBC) [Mass/Vol] 34.3 g/dL Normal 30.5-36.0 [facility] Comment on above: Order Comment: Speci men Type: BLOOD SPECIMEN Performed By: #### 5 7021-8 #### [facility] CLIA [id number] [address] [place] [address] MCV (RBC) [Entitic vol] 90.7 fL Normal 80.0-100.0 [facility] Comment on above: Order Comment: Speci men Type: BLOOD SPECIMEN Performed By: #### 5 7021-8 #### [facility] CLIA [id number] [address] [place] [address] Monocytes (Bld) [#/Vol] 0.93 10*3/uL High <0.87 [facility] Comment on above: Order Comment: Speci men Type: BLOOD SPECIMEN Performed By: #### 5 7021-8 #### [facility] CLIA [id number] [address] [place] [address] Monocytes/100 WBC (Bld) 6.2 % Normal [facility] Comment on above: Order Comment: Speci men Type: BLOOD SPECIMEN Performed By: #### 5 7021-8 #### [facility] CLIA [id number] [address] [place] [address] Neutrophils (Bld) [#/Vol] 11.20 10*3/uL High 1.45-7.50 [facility] Comment on above: Order Comment: Speci men Type: BLOOD SPECIMEN Performed By: #### 5 7021-8 #### [facility] CLIA [id number] [address] [place] [address] Neutrophils/100 WBC (Bld) 75.3 % Normal [facility] Comment on above: Order Comment: Speci men Type: BLOOD SPECIMEN Performed By: #### 5 7021-8 #### [facility] CLIA [id number] [address] [place] [address] Nucleated RBC (Bld) [#/Vol] 10*3/uL Normal <0.01 [facility] Comment on above: Order Comment: Speci men Type: BLOOD SPECIMEN Performed By: #### 5 7021-8 #### [facility] CLIA [id number] [address] [place] [address] Nucleated RBC/100 WBC (Bld) [Ratio] 0.0 /100 WBC Normal 0.0 [facility] Comment on above: Order Comment: Speci men Type: BLOOD SPECIMEN Performed By: #### 5 7021-8 #### [facility] CLIA [id number] [address] [place] [address] Platelet mean volume (Bld) [Entitic vol] 11.5 fL Normal 9.0-12.7 [facility] Comment on above: Order Comment: Speci men Type: BLOOD SPECIMEN Performed By: #### 5 7021-8 #### [facility] CLIA [id number] [address] [place] [address] Platelets (Bld) [#/Vol] 229 10*3/uL Normal 150-400 [facility] Comment on above: Order Comment: Speci men Type: BLOOD SPECIMEN Performed By: #### 5 7021-8 #### [facility] CLIA [id number] [address] [place] [address] RBC (Bld) [#/Vol] 4.08 10*6/uL Normal 3.90-5.20 [facility] Comment on above: Order Comment: Speci men Type: BLOOD SPECIMEN Performed By: #### 5 7021-8 #### [facility] CLIA [id number] [address] [place] [address] WBC (Bld) [#/Vol] 14.89 10*3/uL High 3.70-11.00 [facility] Comment on above: Order Comment: Speci men Type: BLOOD SPECIMEN Performed By: #### 5 7021-8 #### [facility] CLIA [id number] [address] [place] [address] CONSULT PROGon 03-20-2020 CONSULT PROG HNO ID: [id number] Author: Marissa Banks Service: Endocrinology Author Type: [...] POSIFLUSH) 20 mL INTRAVENOUS PRN - pill machine feed operator (patient-specific) 1 Each Miscell. (Med.Supl.;Non-Drugs) PRN - [...] (Src) 97.7 (Oral) Resp 18 Ht 5' 6 (1.68m) Wt 217 lb 1.6 oz (98.5kg) [...] bid and Januvia 100 mg daily. BS high at home per pt. On steroids, started [...] March 20, 2020 TIME: 8:30 AM PAGER: [phone] Normal [facility] NURSING PROGon 03-20-2020 NURSING PROG HNO ID: [id number] Author: Aron Tovar) JONNY Rothman Service: ? Author Type: Registered Nurse Type: Nursing Progress Note Filed: 03/19/2020 10:33 PM Note Text: Nursing Progress: Topic: RESTRAINT NON-VIOLENT PATIENT NAME: Lisa Shirley PATIENT LOCATION: [place] [address] [address]* The patient demonstrates Lack of Understanding/Ability to [...] 2020 TIME: 10:31 PM Aron Rothman RN [facility] PROGRESSon 03-20-2020 PROGRESS HNO ID: [id number] Author: Panda Coulter Service: Hospital Medicine Author Type: Physician Type: Progress Notes Filed: 03/20/2020 7:38 PM Note Text: DEPARTMENT OF HOSPITAL MEDICINE PROGRESS NOTE SERVICE DATE: 03/20/2020 SERVICE TIME: 7:28 PM Hospital Medicine/Primary Attending: Panda Coulter MD NIGHT AND WEEKEND COVERAGE: [place] COVERAGE: From 7am - 7pm, please call [phone] After 7pm, please call cross cover pager #[phone] Subjective INTERVAL HPI: patient with leukocytosis but remains afebrile. Seen by speech swallow. S/p surgery. rec is for rehab it seems. MEDICATIONS: Reviewed Objective PHYSICAL EXAM: BP 142/84 Pulse 100 Temp (Src) 97.5 (Oral) Resp 18 Ht 5' 6 (1.68m) Wt 217 lb 1.6 oz (98.5kg) [...] Inserted (PICC) Right Arm Through Introducer 5.0 Ghanaian 8 days Drain External Collection Device 03/19/20 [...] neuro, event record hookup was ordered in epic ? 3. ?Diabetes mellitus: POA, stable Monitor [...] 20, 2020 TIME: 7:28 PM PAGER/CONTACT #: [phone] etx [phone] [facility] PROGRESS HNO ID: [id number] Author: Leland Herrera Service: Orthopaedic Surgery Author [...] (Oral) Resp 18 Ht 167.6 cm (5' 6) Wt 99.5 kg (219 lb 4.8 oz) [...] DATE: 03/20/20 TIME: 6:08 AM PAGER/CONTACT #: [phone] Normal [facility] THERAPY NTon 03-20-2020 THERAPY NT HNO ID: [id number] Author: Roxy Drummond Service: Physical Therapy Author Type: Physical Therapist Type: Therapy (PT/OT/Speech/Resp) Filed: 03/20/2020 4:20 PM Note Text: Physical Therapy Evaluation SERVICE DATE: 03/20/2020 SERVICE TIME: 1530 to 1550 ROOM: [id number] Recommended Discharge Disposition: Acute Rehab Justification For [...] Walk in Laundry: Minimally completes Equipment Owned: Fnbox-Shower Prior Functional Level: (driving, activity limited by LBP) Prior Functional Level Comments: 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; 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 d/t 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 pain [...] (generalized);Difficulty walking-musculoskeletal Interventions Provided: Re-evaluation $ Reevaluation (87642) Billed Units: 1 unit Post op 03/19/20 Total Timed Code Treatment Minutes: 25 Total Treatment Time (minutes): 20 Please see discipline specific clinical documentation flowsheet for complete details for this therapy evaluation/treatment. SIGNATURE: Roxy Drummond PT PATIENT NAME: Lisa Shirley DATE: March 20, 2020 TIME: 4:20 PM Normal [facility] THERAPY NT HNO ID: [id number] Author: Shaista Teran/Darion Melendez Service: Occupational Therapy Author Type: Occupational Therapist Type: Therapy (PT/OT/Speech/Resp) Filed: 03/20/2020 4:14 PM Note Text: Occupational Therapy Treatment(Re-Evaluation) SERVICE DATE: 03/20/2020 SERVICE TIME: 1545 to 1600 ROOM: [id number] Recommended Discharge Disposition: Acute Rehab Recommended Discharge [...] Walk in Laundry: Minimally completes Equipment Owned: Fnbox-Shower Prior Functional Level: (driving, activity limited by LBP) Prior Functional Level Comments: 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; 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 d/t 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 pain [...] LUE shoulder flexion 0-100 AROM, WFL AAROM. Im just so tired Strength: Upper Extremity Comments Right Upper Extremity [...] Weakness (generalized) Interventions Provided: Re-evaluation $ Reevaluation (75040) Billed Units: 1 unit Training AND education [...] March 20, 2020 TIME: 4:14 PM Normal [facility] THERAPY NT HNO ID: [id number] Author: Abbie (Chip Separator) ALEYDA De La Torre/DYEING MACHINE FEEDER Service: Speech/Swallow Author Type: Speech Language Pathologist Type: Therapy (PT/OT/Speech/Resp) Filed: 03/20/2020 11:27 AM Note Text: Speech Therapy Treatment SERVICE DATE: 03/20/2020 SERVICE TIME: 1000 to 1030 ROOM: [place] [address] IMPRESSION: Patient demonstrates oral pharyngeal dysphagia which [...] with tolerance of PO intake Continue skilled DYEING MACHINE FEEDER services due to : Dysphagia, Communication difficulties, Safety concerns, Education / training needs Speech Therapy Problem List: Dysphagia;Cognitive-Linguis tic Impairment;Dysarthria Patient Report: I want to get out of here. I want better food. Current Status Current Feeding Method: Oral Current Diet Textures: Dysphagia Level 1 (Pureed), Mildly Thick Liquids IDDSI Level 2 ([place] Thick) Swallow Position Of Patient During Assessment: [...] tolerate Mildly Thick Liquids IDDSI Level 2 ([place] Thick) consistency while utilizing compensatory/swallowing strategies given [...] following cerebral infarction Interventions Provided: Dysphagia Therapy (00563);Speech Therapy (70966) $ Dysphagia Therapy (38793) Billed Units: 1 unit $ Speech Therapy (56103) Billed Units: 1 unit Training and education provided in: Swallowing Strategies, Dysphagia Management, Motor Speech Skills The following therapeutic skills were used:: Tactile cuing, Repetitive task learning, Verbal cuing, Interpretation and instruction of instrumental assessment Total Treatment Time (minutes): 30 Home Environment Prior Functional Level: Within Functional Limits Patient Lives With: Self/Alone Assistance Available: multimedia artist Prior Swallowing Function/Diet Textures: Regular Consistency;Thin Liquids IDDSI Level 0 Please see discipline specific clinical documentation flowsheet for complete details for this therapy evaluation/treatment. SIGNATURE: Abbie De La Torre CCC-DYEING MACHINE FEEDER PATIENT NAME: Lisa Shirley DATE: March 20, 2020 TIME: 11:08 AM [facility] ALLIED HEALTHon 03-19-2020 ALLIED HEALTH HNO ID: [id number] Author: Jade Fuentes (Rt) Service: Radiology Author Type: Side Splitter Type: Allied Health Filed: 03/19/2020 4:50 PM Note Text: [...] RT Marleny March 19, 2020 4:50 PM Normal [facility] ALLIED HEALTH HNO ID: [id number] Author: Elan (Rt) Jade Arias Service: Radiology Author Type: Side Splitter Type: Allied Health Filed: 03/19/2020 2:17 PM Note Text: [...] YOON Calderon March 19, 2020 2:16 PM Normal [facility] ANES POSTPROC EVALon 020 ANES POSTPROC EVAL HNO ID: [id number] Author: Paul Alejandro Service: ? Author Type: Physician Type: Anesthesia Postprocedure Evaluation Filed: 03/19/2020 4:36 PM Note Text: POST ANESTHESIA EVALUATION NOTE : 1945 Procedure Summary Date: 03/19/20 Room / Location: [place] OR / [place] Anesthesia Start: 123 Anesthesia Stop: 152 Procedures: ORIF ANKLE TRIMALLEOLAR, WITHOUT FIXATION POSTERIOR [...] March 19, 2020 TIME: 4:35 PM CSN: [id number] [facility] ANES PRE-OPon 03-19-2020 ANES PRE-OP HNO ID: [id number] Author: Paul Alejandro Service: ? Author Type: Physician Type: Anesthesia Preprocedure Evaluation Filed: 03/19/2020 1:36 PM Note Text: ANESTHESIOLOGY DAY OF SURGERY NOTE : 1945 Procedure(s) (LRB): ORIF ANKLE TRIMALLEOLAR, WITHOUT FIXATION POSTERIOR LIP (Left) ORIF SYNDESMOSIS LOWER EXTREMITY (Left) Surgeon(s): Leland Howard (Brea) Noah Estimated body mass index is 35.4 kg/m? as calculated from the following: Height as of this encounter: 167.6 cm (5' 6). Weight as of this encounter: 99.5 kg (219 lb 4.8 oz). Most recent hematocrit and potassium results: Hematocrit 38.7 03/19/2020 Potassium 3.9 03/18/2020 Relevant Problems CARDIO (+) Coronary artery disease involving [place] coronary artery of [place] heart without angina pectoris (+) Essential hypertension [...] GFR NEURO-PSYCH (+) [facility] stroke [facility] I - PHYSICAL EVALUATION AIRWAY Patient intubated: [...] (98.2 ?F) 03/19/20 1100 SpO2 99 % 03/19/20 1100 Facility-Administered Medications as of 03/19/2020 Medication [...] - [MAR Hold due to Transfer] pill machine feed operator (patient-specific) 1 Each Miscell. (Med.Supl.;Non-Drugs) PRN - [...] March 19, 2020 TIME: 1:33 PM CSN: [id number] [facility] CASE MANAGEMon 03-19-2020 CASE MANAGEM HNO ID: [id number] Author: AMADOU Grubbs (Lisw) Service: Social Work Author Type: Natural Gas Engineer Type: Care Mgt Progress Note Filed: 03/19/2020 9:51 AM Note Text: CARE MANAGEMENT PROGRESS NOTE SERVICE DATE: 03/19/2020 SERVICE TIME: 9:44 AM LOS: 11 days ... [facility] has accepted patient. Called patient in her room several times and she does not answer. Called her cell phone and left a message. Called her son, Osmany. He states he has not been able to reach her this weekend either by phone. Explained that we could expand the Acute Rehab referrals since [facility] has no beds. Son was open to this but need to confirm with patient . Discussed with nurse who will position phone better for patient next tmie she goes into the isolation room. SIGNATURE: AMADOU Grubbs PATIENT NAME: Lisa Shirley DATE: March 19, 2020 TIME: 9:44 AM PAGER/CONTACT #: [phone] Normal [facility] CBC (hemogram) Bld [place] Erythrocyte distribution width (RBC) [Ratio] 13.1 % Normal 11.5-15.0 [facility] Comment on above: Order Comment: Speci men Type: BLOOD SPECIMEN Performed By: #### 5 8410-2 #### [facility] CLIA [id number] [address] [place] [address] Hematocrit (Bld) [Volume fraction] 38.7 % Normal 36.0-46.0 [facility] Comment on above: Order Comment: Speci men Type: BLOOD SPECIMEN Performed By: #### 5 8410-2 #### [facility] CLIA [id number] [address] [place] [address] Hemoglobin (Bld) [Mass/Vol] 12.9 g/dL Normal 11.5-15.5 [facility] Comment on above: Order Comment: Speci men Type: BLOOD SPECIMEN Performed By: #### 5 8410-2 #### [facility] CLIA [id number] [address] [place] [address] MCH (RBC) [Entitic mass] 30.7 pg Normal 26.0-34.0 [facility] Comment on above: Order Comment: Speci men Type: BLOOD SPECIMEN Performed By: #### 5 8410-2 #### [facility] CLIA [id number] [address] [place] [address] MCHC (RBC) [Mass/Vol] 33.3 g/dL Normal 30.5-36.0 [facility] Comment on above: Order Comment: Speci men Type: BLOOD SPECIMEN Performed By: #### 5 8410-2 #### [facility] CLIA [id number] [address] [place] [address] MCV (RBC) [Entitic vol] 92.1 fL Normal 80.0-100.0 [facility] Comment on above: Order Comment: Speci men Type: BLOOD SPECIMEN Performed By: #### 5 8410-2 #### [facility] CLIA [id number] [address] [place] [address] Nucleated RBC (Bld) [#/Vol] 10*3/uL Normal <0.01 [facility] Comment on above: Order Comment: Speci men Type: BLOOD SPECIMEN Performed By: #### 5 8410-2 #### [facility] CLIA [id number] [address] [place] [address] Platelet mean volume (Bld) [Entitic vol] 11.2 fL Normal 9.0-12.7 [facility] Comment on above: Order Comment: Speci men Type: BLOOD SPECIMEN Performed By: #### 5 8410-2 #### [facility] CLIA [id number] [address] [place] [address] Platelets (Bld) [#/Vol] 253 10*3/uL Normal 150-400 [facility] Comment on above: Order Comment: Speci men Type: BLOOD SPECIMEN Performed By: #### 5 8410-2 #### [facility] CLIA [id number] [address] [place] [address] RBC (Bld) [#/Vol] 4.20 10*6/uL Normal 3.90-5.20 [facility] Comment on above: Order Comment: Speci men Type: BLOOD SPECIMEN Performed By: #### 5 8410-2 #### [facility] CLIA [id number] [address] [place] [address] WBC (Bld) [#/Vol] 12.84 10*3/uL High 3.70-11.00 [facility] Comment on above: Order Comment: Speci men Type: BLOOD SPECIMEN Performed By: #### 5 8410-2 #### [facility] CLIA [id number] [address] [place] [id number] CONSULT PROGon 03-19-2020 CONSULT PROG HNO ID: [id number] Author: Marissa Banks Service: Endocrinology Author Type: [...] POSIFLUSH) 20 mL INTRAVENOUS PRN - pill machine feed operator (patient-specific) 1 Each Miscell. (Med.Supl.;Non-Drugs) PRN - [...] (Src) 98.1 (Oral) Resp 18 Ht 5' 6 (1.68m) Wt 219 lb (99.3kg) SpO2 99% [...] bid and Januvia 100 mg daily. BS high at home per pt. On steroids, started [...] March 19, 2020 TIME: 7:04 AM PAGER: [phone] Normal [facility] NUTRITIONon 03-19-2020 NUTRITION HNO ID: [id number] Author: Tyra Rios) DANIKA Gallardo Service: Nutrition Therapy Author Type: Registered Dietitian Type: Nutrition Filed: 03/19/2020 10:28 AM Note Text: NUTRITION THERAPY PROGRESS NOTE SERVICE DATE: 03/19/2020 SERVICE TIME: 10:15 Nutrition Assessment: Recommended Malnutrition Diagnosis: No Malnutrition Identified (03/09/20 1118 : Ann Rios) DANIKA Friend) Estimated kilocalorie needs: 1480 - 1780 Calorie Calculation Method: 25-30 kcals/kg Estimated protein needs (grams): 71 - 90 Grams protein determined by: 1.2-1.5 g/kg;[place] Body Weight Care Plan: Change diet to [...] COVID treatment. Anthropometrics: Height: 167.6 cm (5' 6) Weight: 99.5 kg (219 lb 4.8 oz) [...] March 19, 2020 TIME: 10:15 AM PAGER: [phone] Normal [facility] OPERATIVE NOon 03-19-2020 OPERATIVE NO HNO ID: [id number] Author: Leland Herrera Service: Orthopaedic Surgery Author Type: Physician Type: Operative Report Filed: 03/20/2020 10:55 AM Note Text: ORTHOPAEDIC OPERATIVE REPORT PATIENT NAME: Lisa Shirley Surgery/Procedure Date: 03/19/2020 Incision/Procedure Start Time: 12:58 PM Incision Close/Procedure End Time: 2:18 PM Surgeon(s) and Map And Chart Mounter(s): Surgeon(s) and Role: * Leland Herrera - [...] and sterilely draped for the procedure. The [facility] timeout protocol was performed. A lateral [...] to be very poor. Two 2.7 mm clzhllwv-hk-uujporxmg lag screws were applied. The [employer] 10-hole [...] March 20, 2020 TIME: 10:48 AM Normal [facility] PROGRESSon 03-19-2020 PROGRESS HNO ID: [id number] Author: Panda Coulter Service: Hospital Medicine Author Type: Physician Type: Progress Notes Filed: 03/19/2020 6:12 PM Note Text: DEPARTMENT OF HOSPITAL MEDICINE PROGRESS NOTE SERVICE DATE: 03/19/2020 SERVICE TIME: 5:51 PM Hospital Medicine/Primary Attending: Panda Coulter MD NIGHT AND WEEKEND COVERAGE: [place] COVERAGE: From 7am - 7pm, please call [phone] After 7pm, please call cross cover pager #[phone] Subjective INTERVAL HPI: patient went to or today for ankle surgery. MEDICATIONS: Reviewed Objective PHYSICAL EXAM: BP 148/73 Pulse 73 Temp (Src) 97.5 (Oral) Resp 16 Ht 5' 6 (1.68m) Wt 219 lb 4.8 oz (99.5kg) [...] Inserted (PICC) Right Arm Through Introducer 5.0 [place]ian 7 days Drain External Collection Device 03/19/20 [...] neuro, event record hookup was ordered in [facility] ? 3. ?Diabetes mellitus: POA, stable Monitor [...] 19, 2020 TIME: 5:51 PM PAGER/CONTACT #: [phone] [facility] PROGRESS HNO ID: [id number] Author: Igor Roach) Guero Service: Orthopaedic Surgery Author Type: Resident [...] (Axillary) Resp 18 Ht 167.6 cm (5' 6) Wt 99.3 kg (219 lb) SpO2 99% BMI 35.35 kg/m? General Alert and oriented. No acute distress. Cooperative with interview. Exam Patient not seen due to COVID precautions Labs Recent Labs 03/18/20 0420 NA 141 K 3.9 CHLOR 105 CO2 25 BUN 26* CREAT 1.03* GLUC 178* ANION 11 CA 8.1* Imaging None Igor Jack MD March 19, 2020 6:10 AM Normal [facility] TYPE AND SCREENon 03-19-2020 ABO AB Normal [facility] Comment on above: Order Comment: Speci men Type: SWAB OF INTERNAL NOSE Performed By: #### S APCR #### [facility] CLIA [id number] [address] [place] [address] HISTORICAL AB SCR STATUS Negative [facility] Comment on above: Order Comment: Speci men Type: SWAB OF INTERNAL NOSE Performed By: #### S APCR #### [facility] CLIA [id number] [address] [place] [address] Rh Nom (Bld) Positive Normal [facility] Comment on above: Order Comment: Speci men Type: SWAB OF INTERNAL NOSE Performed By: #### S APCR #### [facility] CLIA [id number] [address] [place] [address] TYPE AND SCREEN EXPIRATION 03/22/2020 23:59 Normal [facility] Comment on above: Order Comment: Speci men Type: SWAB OF INTERNAL NOSE Performed By: #### S APCR #### [facility] CLIA [id number] [address] [place] [address] XR ANKLE 3V AP/LAT/OBL LTon 03-19-2020 XR ANKLE 3V AP/LAT/OBL LT Final Report DATE OF EXAM: Mar 19 2020 4:34PM AKX 5298 - XR ANKLE 3V AP/LAT/OBL LT / PROCEDURE REASON: Post-operative / post-procedure assessment, asymptomatic Physician Interpretation EXAMINATION: XR ANKLE 3V AP/LAT/OBL LT, XR ANKLE 3V AP/LAT/OBL LT CLINICAL HISTORY: post op L ankle (accession [id number]), O.R.I.F. LEFT ANKLE (accession [id number]) Technique: XR ANKLE 3V AP/LAT/OBL LT, XR ANKLE 3V AP/LAT/OBL LT Fluoroscopic Radiation Summary: Plane A, Air Kerma: 0.0 mGy (accession [id number]), 1.0 mGy (accession [id number]) Dose Area Product (DAP): 0.0 mGycm mGycm [...] Postoperative imaging with satisfactory alignment left ankle. Director Of Archives: [facility] Transcribe Date/Time: Mar 19 2020 4:47P Dictated by : WILIAM MCGREGOR MD This examination was interpreted and the report reviewed and electronically signed by: WILIAM MCGREGOR MD on Mar 19 2020 4:52PM [facility] XR ANKLE 3V AP/LAT/OBL LT Final Report DATE OF EXAM: Mar 19 2020 2:15PM [facility] 5298 - XR ANKLE 3V AP/LAT/OBL LT / PROCEDURE REASON: O.R.I.F. Physician Interpretation EXAMINATION: XR ANKLE 3V AP/LAT/OBL LT, XR ANKLE 3V AP/LAT/OBL LT CLINICAL HISTORY: post op L ankle (accession [id number]), O.R.I.F. LEFT ANKLE (accession [id number]) Technique: XR ANKLE 3V AP/LAT/OBL LT, XR ANKLE 3V AP/LAT/OBL LT Fluoroscopic Radiation Summary: Plane A, Air Kerma: 0.0 mGy (accession [id number]), 1.0 mGy (accession [id number]) Dose Area Product (DAP): 0.0 mGycm mGycm [...] Postoperative imaging with satisfactory alignment left ankle. Director Of Archives: [facility] Transcribe Date/Time: Mar 19 2020 4:47P Dictated by : WILIAM MCGREGOR MD This examination was interpreted and the report reviewed and electronically signed by: WILIAM MCGREGOR MD on Mar 19 2020 4:52PM EST Normal [facility] Bas Metab 2000 Pnl SerPlon 1 05-18-2019 Anion gap [Moles/Vol] 11 mmol/L Normal 9-18 [facility] Comment on above: Order Comment: Speci men Type: BLOOD SPECIMEN Performed By: #### 2 4321-2 ####[facility] [id number] [place] [address] Calcium [Mass/Vol] 8.1 mg/dL Low 8.5-10.2 [facility] Comment on above: Order Comment: Speci men Type: BLOOD SPECIMEN Performed By: #### 2 4321-2 ####[facility]ORYCLIA [id number] [place] [address] Chloride [Moles/Vol] 105 mmol/L Normal 97-105 [facility] Comment on above: Order Comment: Speci men Type: BLOOD SPECIMEN Performed By: #### 2 4321-2 ####[facility]ORY[facility]IA [id number] [place] [address] CO2 [Moles/Vol] 25 mmol/L Normal 22-30 [facility] Comment on above: Order Comment: Speci men Type: BLOOD SPECIMEN Performed By: #### 2 4321-2 ####[facility] [id number] [place] [address] Creatinine [Mass/Vol] 1.03 mg/dL High 0.58-0.96 [facility] Comment on above: Order Comment: Speci men Type: BLOOD SPECIMEN Performed By: #### 2 4321-2 ####[facility]ORYCLIA [id number] [place] [address] GFR/1.73 sq M.predicted MDRD (S/P/Bld) [Vol rate/Area] mL/min/{1.73_m2} Normal [facility] Comment on above: Order Comment: Speci men [...] actual GFR. Performed By: #### 2 4321-2 ####[facility]ORYCLIA [id number] [place] [address] Glucose [Mass/Vol] 178 mg/dL High 74-99 [facility] Comment on above: Order Comment: Speci [facility] Type: BLOOD SPECIMEN Result Comment: The [place] Diabetes Association (ADA) provides guidance for cutoff [...] Standards of Medical Care in Diabetes 2016, [place] Diabetes Association. Diabetes Care. 2016.39(Suppl 1). Performed By: #### 2 4321-2 ####[facility]ORYCLIA [id number] [place] [address] Potassium [Moles/Vol] 3.9 mmol/L Normal 3.7-5.1 [facility] Comment on above: Order Comment: Speci men Type: BLOOD SPECIMEN Performed By: #### 2 4321-2 ####[facility]ORYCLIA [id number] [place] [address] Sodium [Moles/Vol] 141 mmol/L Normal 136-144 [facility] Comment on above: Order Comment: Speci men Type: BLOOD SPECIMEN Performed By: #### 2 4321-2 ####[facility]ORYCLIA [id number] [place] [address] Urea nitrogen [Mass/Vol] 26 mg/dL High 7-21 [facility] Comment on above: Order Comment: Speci men Type: BLOOD SPECIMEN Performed By: #### 2 4321-2 ####[facility]ORYCLIA [id number] [place] [address] CONSULT PROGon 03-18-2020 CONSULT PROG HNO ID: [id number] Author: Marissa Banks Service: Endocrinology Author Type: [...] POSIFLUSH) 20 mL INTRAVENOUS PRN - pill machine feed operator (patient-specific) 1 Each Miscell. (Med.Supl.;Non-Drugs) PRN - [...] (Src) 97.9 (Oral) Resp 18 Ht 5' 6 (1.68m) Wt 219 lb (99.3kg) SpO2 97% [...] bid and Januvia 100 mg daily. BS high at home per pt. On steroids, started [...] March 18, 2020 TIME: 8:49 AM PAGER: [phone] Normal [facility] PROGRESSon 03-18-2020 PROGRESS HNO ID: [id number] Author: Panda Coulter Service: Hospital Medicine Author Type: Physician Type: Progress Notes Filed: 03/18/2020 7:00 PM Note Text: DEPARTMENT OF HOSPITAL MEDICINE PROGRESS NOTE SERVICE DATE: 03/18/2020 SERVICE TIME: 6:57 PM Hospital Medicine/Primary Attending: Panda Coulter MD NIGHT AND WEEKEND COVERAGE: [place] C[employer]: From 7am - 7pm, please call [phone] After 7pm, please call cross cover pager #[phone] Subjective INTERVAL HPI: patient seen at bedside. rn endorses she has been intermittently refusing medications but counseled compliance. She otherwise appears more comfortable than prior. Follow up ortho recs. Eventual rehab it seems. MEDICATIONS: Reviewed Objective PHYSICAL EXAM: BP 127/82 Pulse 100 Temp (Src) 98.1 (Oral) Resp 18 Ht 5' 6 (1.68m) Wt 219 lb (99.3kg) SpO2 98% [...] Inserted (PICC) Right Arm Through Introducer 5.0 Ghanaian 6 days DATA: Diagnostic tests reviewed for [...] neuro, event record hookup was ordered in [facility] ? 3. ?Diabetes mellitus: POA, stable Monitor [...] mg PO/FT DAILY 03/09/20 1436 -- 03/08/20 223 heparin 5,000 Units injection (Medical Risk Categories) 5,000 Units SUBCUTANEOUS EVERY 8 HOURS 03/08/202219 -- VTE Prophylaxis: heparin dvt px Disposition: Acute Rehab Plan of care discussed with: Provider, RN, Patient SIGNATURE: Panda Coulter MD PATIENT NAME: Lisa Shirley DATE: March 18, 2020 TIME: 6:57 PM PAGER/CONTACT #: [phone] etx [phone] [facility] PROGRESS HNO ID: [id number] Author: Leland Herrera Service: Orthopaedic Surgery Author [...] (Oral) Resp 18 Ht 167.6 cm (5' 6) Wt 99.3 kg (219 lb) SpO2 97% [...] MD Orthopedic Surgery, PGY1 03/18/20 1410 Normal [facility] CONSULT PROGon 03-17-2020 CONSULT PROG HNO ID: [id number] Author: Marissa Banks Service: Endocrinology Author Type: [...] pt on phone; 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 (Med.Supl.;Non-Drugs) PRN - [...] (Src) 98.2 (Oral) Resp 16 Ht 5' 6 (1.68m) Wt 219 lb (99.3kg) SpO2 98% BMI 35.36 kg/(m2). O2 Therapy: Room Air DATA: Diagnostic tests reviewed for today's visit: Most recent labs and imaging results. Last 24 hr BS reviewed. Recent Labs 03/16/20205003/16/20 1730 03/16/20 0745 03/15/20195803/15/20 1656 03/15/20 0647 03/15/20 0647 GLUC -- [...] bid and Januvia 100 mg daily. BS high at home per pt. On steroids, NPH [...] March 17, 2020 TIME: 9:45 AM PAGER: [phone] [facility] NURSING PROGon 03-17-2020 NURSING PROG HNO ID: [id number] Author: Quynh Jean-BaptisteRn) JONNY Manzanares Service: ? Author Type: Registered Nurse Type: Nursing Progress Note Filed: 03/17/2020 2:24 PM Note Text: Nursing Progress Note Patient Name: Lisa Shirley Patient Location: [id number] 1 Daily Note: 1115: Dr Coulter notified of removing restraints from patient. 1145: pt tolerating well without pulling at lines or trying to get out of bed. This note was completed by: Quynh Manzanares RN [facility] NURSING PROG HNO ID: [id number] Author: Aron (Rn) JONNY Rothman Service: ? Author Type: Registered Nurse Type: Nursing Progress Note Filed: 03/17/2020 5:24 AM Note Text: Pt. Now only has soft wrist restraint on left wrist, patient is unable to pull at right upper arm PICC with right hand and demonstrated increased cooperation and ability to follow instruction. [facility] NURSING PROG HNO ID: [id number] Author: Aron Jean-BaptisteRn) Stephan RN Service: ? Author Type: Registered Nurse Type: Nursing Progress Note Filed: 03/17/2020 5:19 AM Note Text: Nursing Progress: Topic: RESTRAINT NON-VIOLENT PATIENT NAME: Lisa Shirley PATIENT LOCATION: [id number]/[place]* The patient demonstrates Attempting to Remove Medical [...] 2020 TIME: 5:18 AM Aron Rothman RN Normal [facility] PROGRESSon 03-17-2020 PROGRESS HNO ID: [id number] Author: Panda Coulter Service: Hospital Medicine Author Type: Physician Type: Progress Notes Filed: 03/17/2020 8:16 PM Note Text: DEPARTMENT OF HOSPITAL MEDICINE PROGRESS NOTE SERVICE DATE: 03/17/2020 SERVICE TIME: 8:09 PM Hospital Medicine/Primary Attending: Panda Coulter MD NIGHT AND WEEKEND COVERAGE: [place] C[employer]: From 7am - 7pm, please call [phone] After 7pm, please call cross cover pager #[phone] Subjective INTERVAL HPI: blood pressure a bit improved. rn endorsed that she was able to remove restraints today and patient was doing okay. Orthopedic surgery pending. MEDICATIONS: Reviewed Objective PHYSICAL EXAM: BP 147/80 Pulse 80 Temp (Src) 97.5 (Oral) Resp 18 Ht 5' 6 (1.68m) Wt 219 lb (99.3kg) SpO2 97% [...] Inserted (PICC) Right Arm Through Introducer 5.0 Ghanaian 5 days Drain External Collection Device 03/12/20 [...] neuro, event record hookup was ordered in [facility] ? 3. ?Diabetes mellitus: POA, stable Monitor [...] Categories) 5,000 Units SUBCUTANEOUS EVERY 8 HOURS 03/08/200 -- VTE Prophylaxis: heparin 5000 sq q 8 hours Disposition: To be determined SIGNATURE: Panda Coulter MD PATIENT NAME: Lisa Shirley DATE: March 17, 2020 TIME: 8:09 PM PAGER/CONTACT #: [phone] etx [phone] [facility] PROGRESS HNO ID: [id number] Author: Edmond Jean-BaptisteResCesario Bryan MD Service: Orthopaedic Surgery Author Type: Resident Type: [...] (Oral) Resp 16 Ht 167.6 cm (5' 6) Wt 99.3 kg (219 lb) SpO2 98% [...] images Tonie Bryan MD Orthopaedic Surgery Pager #[phone] March 17, 2020 [facility] ALLIED HEALTHon 03-16-2020 ALLIED HEALTH HNO ID: [id number] Author: Casandra Jean-BaptisteRtJade Looney Service: Radiology Author Type: Side Splitter Type: Allied Health Filed: 03/16/2020 7:28 AM [...] RT Mee March 16, 2020 7:28 AM Normal [facility] CONSULT PROGon 03-16-2020 CONSULT PROG HNO ID: [id number] Author: Marissa Banks Service: Endocrinology Author Type: [...] POSIFLUSH) 20 mL INTRAVENOUS PRN - pill machine feed operator (patient-specific) 1 Each Miscell. (Med.Supl.;Non-Drugs) PRN - [...] (Src) 98.2 (Oral) Resp 16 Ht 5' 6 (1.68m) Wt 219 lb (99.3kg) SpO2 97% [...] bid and Januvia 100 mg daily. BS high at home per pt. On steroids, NPH [...] March 16, 2020 TIME: 8:31 AM PAGER: [phone] Normal [facility] NURSING PROGon 03-16-2020 NURSING PROG HNO ID: [id number] Author: Maddison Thonre RN Service: ? Author Type: Registered Nurse Type: Nursing Progress Note Filed: 03/16/2020 7:47 PM Note Text: Nursing Progress: Topic: RESTRAINT NON-VIOLENT PATIENT NAME: Lisa Shirley PATIENT LOCATION: [id number]/[place]* The patient demonstrates Attempting to Remove Medical [...] 2020 TIME: 7:46 PM Maddison Thorne RN Normal [facility] NURSING PROG HNO ID: [id number] Author: Aron Jean-BaptisteRnCesario Rothman RN Service: ? Author Type: Registered Nurse Type: Nursing Progress Note Filed: 03/16/2020 1:36 AM Note Text: Nursing Progress: Topic: RESTRAINT NON-VIOLENT PATIENT NAME: Lisa Shirley PATIENT LOCATION: [id number]/[facility]* The patient demonstrates Attempting to Remove Medical [...] 2020 TIME: 1:36 AM Aron Rothman RN Normal [facility] PROGRESSon 03-16-2020 PROGRESS HNO ID: [id number] Author: Panda Coulter Service: Hospital Medicine Author Type: Physician Type: Progress Notes Filed: 03/16/2020 9:28 PM Note Text: DEPARTMENT OF HOSPITAL MEDICINE PROGRESS NOTE SERVICE DATE: 03/16/2020 SERVICE TIME: 9:24 PM Hospital Medicine/Primary Attending: Panda Coulter MD NIGHT AND WEEKEND COVERAGE: [employer] C[employer]: From 7am - 7pm, please call [phone] After 7pm, please call cross cover pager #[phone] Subjective INTERVAL HPI: pending ortho surgery. Endocrine on board recs appreciated. Monitor accuchecks. MEDICATIONS: Reviewed Objective PHYSICAL EXAM: BP 161/81 Pulse 78 Temp (Src) 97.9 (Oral) Resp 16 Ht 5' 6 (1.68m) Wt 219 lb (99.3kg) SpO2 97% [...] Inserted (PICC) Right Arm Through Introducer 5.0 Ghanaian 4 days Drain External Collection Device 03/12/20 [...] neuro, event record hookup was ordered [facility] ? 3. ?Diabetes mellitus: POA, stable Monitor [...] TIME: 9:24 PM PAGER/CONTACT #: [phone] etx [phone] [facility] PROGRESS HNO ID: [id number] Author: Leland Herrera Service: Orthopaedic Surgery Author [...] (Oral) Resp 16 Ht 167.6 cm (5' 6) Wt 99.3 kg (219 lb) SpO2 97% [...] Rogers MD Resident, Orthopaedic Surgery Pager #: [phone] 03/16/2020 6:00 AM Please page [phone] from 5p-6a and on weekends for any issues. Normal [facility] PROGRESS HNO ID: [id number] Author: Panda Coulter Service: Hospital Medicine Author Type: Physician Type: Progress Notes Filed: 03/15/2020 11:35 PM Note Text: DEPARTMENT OF HOSPITAL MEDICINE PROGRESS NOTE SERVICE DATE: 03/15/2020 SERVICE TIME: 11:11 PM Hospital Medicine/Primary Attending: Panda Coulter MD NIGHT AND WEEKEND COVERAGE: [place] C[employer]: From 7am - 7pm, please call [phone] After 7pm, please call cross cover pager #[phone] Subjective INTERVAL HPI: patient had been complaining [...] (Src) 98.1 (Oral) Resp 16 Ht 5' 6 (1.68m) Wt 219 lb (99.3kg) SpO2 96% [...] Inserted (PICC) Right Arm Through Introducer 5.0 Ghanaian 3 days Drain External Collection Device 03/12/20 [...] neuro, event record hookup was ordered in [facility] ? 3. 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; 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 d/t 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 pain [...] Toilet/Commode Gait Stairs Curb Step Car Transfer -M: 3: Sit at edge of bed Learning/Educational [...] Weakness (generalized);Difficulty walking-musculoskeletal Interventions Provided: Therapeutic Activity (18038);Therapeutic Exercise (98133) Therapeutic Exercise (67837) Treatment Minutes: 8 $ Therapeutic Exercise (35368) Billed Units: 1 unit Seated bilat LE exercise: hip flexion, LAQ, RLE AP Supine bilat lower extremity exercise: heel slide Therapeutic Activity (35411) Treatment Minutes: 17 $ Therapeutic Activity (68182) Billed Units: 1 unit Instruct in safety [...] March 16, 2020 TIME: 2:31 PM Normal [facility] XR SHLDR >/=3V AP/TIGRE AP/OTH R RTon [...] tissues are otherwise unremarkable. IMPRESSION: See above. Director Of Archives: T[facility]ISHA Transcribe Date/Time: Mar 16 2020 8:16A Dictated by : JON DENTON MD This examination was interpreted and the report reviewed and electronically signed by: JON DENTON MD on Mar 16 2020 8:17AM EST Normal [facility] CASE MANAGEMon 03-15-2020 CASE MANAGEM HNO ID: [id number] Author: Paulette Cruz (Sw) Service: ? Author Type: Natural Gas Engineer Type: Care Mgt Progress Note Filed: 03/15/2020 [...] 15, 2020 TIME: 9:00 AM PAGER/CONTACT #: [phone] Normal [facility] CK CREATINE KINASEon 020 CK [Catalytic activity/Vol] 187 U/L Normal 42-196 [facility] Comment on above: Order Comment: Speci men Type: BLOOD SPECIMEN Performed By: #### 2 4323-8, CK ####[facility]ORYCLIA [id number] [place] [address] CONSULT PROGon 03-15-2020 CONSULT PROG HNO ID: [id number] Author: Marissa Banks Service: Endocrinology Author Type: [...] POSIFLUSH) 20 mL INTRAVENOUS PRN - pill machine feed operator (patient-specific) 1 Each Miscell. (Med.Supl.;Non-Drugs) PRN - [...] (Src) 98.2 (Oral) Resp 20 Ht 5' 6 (1.68m) Wt 219 lb (99.3kg) SpO2 94% [...] bid and Januvia 100 mg daily. BS high at home per pt. On steroids, NPH [...] March 15, 2020 TIME: 8:15 AM PAGER: [phone] Normal [facility] Comp Metab 2000 Pnl SerPlon 03-15-2020 Albumin [Mass/Vol] 3.1 g/dL Low 3.9-4.9 [facility] Comment on above: Order Comment: Speci men Type: BLOOD SPECIMEN Performed By: #### 2 4323-8, CK ####[facility]ORYCLIA [id number] [place] [address] ALP [Catalytic activity/Vol] 59 U/L Normal 34-123 [facility] Comment on above: Order Comment: Speci men Type: BLOOD SPECIMEN Performed By: #### 2 4323-8, CK ####[facility]ORYCLIA [id number] [place] [address] ALT With P-5'-P [Catalytic activity/Vol] 23 U/L Normal 7-38 [facility] Comment on above: Order Comment: Speci men Type: BLOOD SPECIMEN Performed By: #### 2 4323-8, CK ####[facility] [id number] [place] [address] Anion gap [Moles/Vol] 11 mmol/L Normal 9-18 [facility] Comment on above: Order Comment: Speci men Type: BLOOD SPECIMEN Performed By: #### 2 4323-8, CK ####[facility]ORY[facility]IA [id number] [place] [address] AST With P-5'-P [Catalytic activity/Vol] 23 U/L Normal 13-35 [facility] Comment on above: Order Comment: Speci men Type: BLOOD SPECIMEN Performed By: #### 2 4323-8, CK ####[facility]ORY[facility] [id number] [place] [address] Bilirubin [Mass/Vol] 0.7 mg/dL Normal 0.2-1.3 [facility] Comment on above: Order Comment: Speci men Type: BLOOD SPECIMEN Performed By: #### 2 4323-8, CK ####[facility]IA [id number] [place] [address] Calcium [Mass/Vol] 8.0 mg/dL Low 8.5-10.2 [facility] Comment on above: Order Comment: Speci men Type: BLOOD SPECIMEN Performed By: #### 2 4323-8, CK ####[facility]ORY[facility]IA [id number] [place] [address] Chloride [Moles/Vol] 108 mmol/L High 97-105 [facility] Comment on above: Order Comment: Speci men Type: BLOOD SPECIMEN Performed By: #### 2 4323-8, CK ####[facility]ORY[facility]IA [id number] [place] [address] CO2 [Moles/Vol] 24 mmol/L Normal 22-30 [facility] Comment on above: Order Comment: Speci men Type: BLOOD SPECIMEN Performed By: #### 2 4323-8, CK ####[facility]ORYCLIA [id number] [place] [address] Creatinine [Mass/Vol] 1.02 mg/dL High 0.58-0.96 [facility] Comment on above: Order Comment: Speci men Type: BLOOD SPECIMEN Performed By: #### 2 4323-8, CK ####[facility]ATORYCLIA [id number] [place] [address] GFR/1.73 sq M.predicted MDRD (S/P/Bld) [Vol rate/Area] mL/min/{1.73_m2} Normal [facility] Comment on above: Order Comment: Speci men [...] GFR. Performed By: #### 2 4323-8, CK ####[facility]ORATORYCLIA [id number] [place] [address] Glucose [Mass/Vol] 169 mg/dL High 74-99 [facility] Comment on above: Order Comment: Speci [facility] Type: BLOOD SPECIMEN Result Comment: The [place] Diabetes Association (ADA) provides guidance for cutoff [...] Standards of Medical Care in Diabetes 2016, [place] Diabetes Association. Diabetes Care. 2016.39(Suppl 1). Performed By: #### 2 4323-8, CK ####[facility]ORATORYCLIA [id number] [place] [address] Potassium [Moles/Vol] 3.8 mmol/L Normal 3.7-5.1 [facility] Comment on above: Order Comment: Speci men Type: BLOOD SPECIMEN Performed By: #### 2 4323-8, CK ####[facility]ORATORYCLIA [id number] [place] [address] Protein [Mass/Vol] 6.0 g/dL Low 6.3-8.0 [facility] Comment on above: Order Comment: Speci men Type: BLOOD SPECIMEN Performed By: #### 2 4323-8, CK ####[facility]ORATORYCLIA [id number] [place] [address] Sodium [Moles/Vol] 143 mmol/L Normal 136-144 [facility] Comment on above: Order Comment: Speci men Type: BLOOD SPECIMEN Performed By: #### 2 4323-8, CK ####[facility]ORATORYCLIA [id number] [place] [address] Urea nitrogen [Mass/Vol] 32 mg/dL High 7-21 [facility] Comment on above: Order Comment: Speci men Type: BLOOD SPECIMEN Performed By: #### 2 4323-8, CK ####[facility]ORATORYCLIA [id number] [place] [address] HIGH SENSITIVITY TROPONIN To n 03-15-2020 HIGH SENSITIVITY MAXIMILIANO 15 ng/L High <12 [facility] Comment on above: Order Comment: [...] MACE. Performed By: #### 2 4321-2 #### [facility] CLIA [id number] [address] [place] [address] NURSING PROGon 03-15-2020 NURSING PROG HNO ID: [id number] Author: Maddison Tovar) JONNY Thorne Service: ? Author Type: Registered Nurse Type: Nursing Progress Note Filed: 03/16/2020 7:47 PM Note Text: Nursing Progress: Topic: RESTRAINT NON-VIOLENT PATIENT NAME: Lisa Shirley PATIENT LOCATION: [place] [address]/[place] [address]* The patient demonstrates Attempting to Remove Medical [...] 2020 TIME: 7:47 PM Maddison Thorne RN [facility] PROGRESSon 03-15-2020 PROGRESS HNO ID: [id number] Author: Patito Weston Service: Orthopaedic Surgery Author [...] (Axillary) Resp 20 Ht 167.6 cm (5' 6) Wt 99.3 kg (219 lb) SpO2 98% [...] MD Orthopedic Surgery Resident 03/15/2020 5:34 AM [facility] CASE MANAGEMon 03-14-2020 CASE MANAGEM HNO ID: [id number] Author: Paulette Cruz (Sw) Service: ? Author Type: Natural Gas Engineer Type: Care Mgt Progress Note Filed: 03/15/2020 [...] 14, 2020 TIME: 4:14 PM PAGER/CONTACT #: [phone] [facility] CONSULTon 03-14-2020 CONSULT HNO ID: [id number] Author: Marissa Banks Service: Endocrinology Author Type: Physician Type: Consults Filed: 03/14/2020 3:31 PM Note Text: I have reviewed the patient's medical record in detail. Consult note dictated. See new insulin orders. Marissa Banks MD [facility] CONSULT HNO ID: [id number] Author: Marissa Banks Service: Endocrinology Author Type: Physician Type: Consults Filed: 03/15/2020 6:37 PM Note Text: [facility] - Consultation PATIENT NAME: LISA SHIRLEY [facility]: [id number] DATE OF : 1945 SEX/AGE: F/74 PATIENT TYPE: I HOSP [facility]: [facility] LOCATION: [id number] DATE OF SERVICE: 03/14/2020 TIME OF SERVICE: 03:23 PM REFERRING PHYSICIAN: ASHLEIGH THURSTON REASON FOR CONSULTATION: Diabetes management, COVID, patient on steroids. HISTORY: The patient is a 74-year-old female, who was admitted who was found unresponsive at home. She was transferred from [facility] with acute right MCA stroke. Patient was [...] Januvia 100 mg daily. I reviewed patient's [facility] records. Her last A1c was 12.6 in [...] otherwise negative. PHYSICAL EXAMINATION: I reviewed the [facility] records. Height is 5 feet 6 inches, [...] in low 100s. Marissa Banks MD Endocrinology SM:jacklyn /[id number] [facility] CONSULT PROGon 03-14-2020 CONSULT PROG HNO ID: [id number] Author: Danuta Tinoco) Brandon Service: Neurology ICU Author Type: Physician Map And Chart Mounter Type: Consult Progress Note Filed: 03/14/2020 10:30 [...] POSIFLUSH) 20 mL INTRAVENOUS PRN - pill machine feed operator (patient-specific) 1 Each Miscell. (Med.Supl.;Non-Drugs) PRN - [...] (Axillary) Resp 16 Ht 167.6 cm (5' 6) Wt 99.3 kg (219 lb) SpO2 95% [...] -- 03/09/20 0600 activity - mobilize patient (wi,mt) 03/08/20 2215 pneumatic compression stockings ([place], [place]) VTE Prophylaxis: VTE prophylaxis appropriate Impression/Recommendations [...] 14, 2020 TIME: 10:13 AM PAGER/CONTACT #: [phone] Part of my note may have been copied from previous documentation. It has been reviewed and is accurate. Normal [facility] NURSING PROGon 03-14-2020 NURSING PROG HNO ID: [id number] Author: Pham (Rn) JONNY Escalera Service: ? Author Type: Registered Nurse Type: Nursing Progress Note Filed: 03/14/2020 10:45 PM Note Text: Nursing Progress: Topic: RESTRAINT NON-VIOLENT PATIENT NAME: Lisa Shirley PATIENT LOCATION: [id number]* The patient demonstrates Attempting to Remove Medical [...] 2020 TIME: 10:44 PM Pham Escalera RN [facility] NURSING PROG HNO ID: [id number] Author: Elda Jean-BaptisteRn) JONNY Isaac Service: Nursing Author Type: Registered Nurse Type: Nursing Progress Note Filed: 03/14/2020 2:39 PM Note Text: Nursing Progress: Topic: RESTRAINT NON-VIOLENT PATIENT NAME: Lisa Shirley PATIENT LOCATION: [id number]* The patient demonstrates Attempting to Remove Medical [...] 2020 TIME: 2:38 PM Elda Isaac RN [facility] NURSING PROG HNO ID: [id number] Author: Pham Tovar) JONNY Escalera Service: ? Author Type: Registered Nurse Type: Nursing Progress Note Filed: 03/13/2020 11:01 PM Note Text: Nursing Progress: Topic: RESTRAINT NON-VIOLENT PATIENT NAME: Lisa Shirley PATIENT LOCATION: [place] [address]/[place] [address]* The patient demonstrates Attempting to Remove Medical [...] 2020 TIME: 10:59 PM Pham Escalera RN [facility] NUTRITIONon 03-14-2020 NUTRITION HNO ID: [id number] Author: Pete Ferrari Service: Nutrition Therapy Author Type: Registered Dietitian Type: Nutrition Filed: 03/14/2020 1:25 PM Note Text: NUTRITION THERAPY PROGRESS NOTE SERVICE DATE: 03/14/2020 SERVICE TIME: 1040 Due to positive COVID-19 test and patient in restraints (cannot access phone), encounter was completed by using medical record and speaking with RN Nutrition Assessment: Recommended Malnutrition Diagnosis: No Malnutrition Identified (03/09/20 1118 : Ann Friend RD) Estimated kilocalorie needs: 1480 - 1780 Calorie Calculation Method: 25-30 kcals/kg Estimated protein needs (grams): 71 - 90 Grams protein determined by: 1.2-1.5 g/kg;[place] Body Weight Care Plan: Continue current diet diet per ST recs Supplements: Boost Glucose Control(BID; thicken to nectar thick consistency) Medications: Appetite stimulants Monitor and Evaluation: Meet greater than 75% of estimated needs;Monitor labs, I/Os, vital signs, weight;Monitor fluid/electrolyte balance;Monitor bowel function Discharge Recommendations: Diet;Oral Supplements Diet: per ST recs Oral Supplements: Boost Glucose control 1-3 times a day depending on PO intake Interval History: 74 yof admitted for stroke last seen by nutrition on 03/11. Restraints placed on 03/12 d/t patient pulling at IVs and equipment. PICC placed 03/12. ST recommended dysphagia level 1 with nectar thick liquids and RN assist on 03/12. Ortho plans to perform surgery on ankle on 03/19. Anthropometrics: Height: 167.6 cm (5' 6) Weight: 99.3 kg (219 lb) Dosing Weight: [...] DATE: March 14, 2020 TIME: 1324 PAGER: [phone] Normal [facility] PROGRESSon 03-14-2020 PROGRESS HNO ID: [id number] Author: Panda Coulter Service: Hospital Medicine Author Type: Physician Type: Progress Notes Filed: 03/14/2020 11:52 PM Note Text: DEPARTMENT OF HOSPITAL MEDICINE PROGRESS NOTE SERVICE DATE: 03/14/2020 SERVICE TIME: 1:27 PM Hospital Medicine/Primary Attending: Panda Coulter MD NIGHT AND WEEKEND COVERAGE: [place] COVERAGE: From 7am - 7pm, please call [phone] After 7pm, please call cross cover pager #[phone] Subjective INTERVAL HPI: patient seen at bedside. Some dysarthria but she is oriented. Did not have acute complaints. Blood pressure trending high. Antihypertensive added - continue to monitor. MEDICATIONS: Reviewed Objective PHYSICAL EXAM: BP 171/84 Pulse 60 Temp (Src) 98.2 (Axillary) Resp 16 Ht 5' 6 (1.68m) Wt 219 lb (99.3kg) SpO2 98% [...] Inserted (PICC) Right Arm Through Introducer 5.0 Ghanaian 1 day Drain External Collection Device 03/12/20 [...] neuro, event record hookup was ordered in [facility]. Diabetes mellitus: POA, stable Monitor accuchecks [...] 14, 2020 TIME: 1:27 PM PAGER/CONTACT #: [phone] [phone] [facility] PROGRESS HNO ID: [id number] Author: Leland Herrera Service: Orthopaedic Surgery Author [...] (Axillary) Resp 18 Ht 167.6 cm (5' 6) Wt 99.7 kg (219 lb 11.2 oz) [...] DATE: 03/14/20 TIME: 5:58 AM PAGER/CONTACT #: [phone] Normal [facility] THERAPY NTon 03-14-2020 THERAPY NT HNO ID: [id number] Author: Osmar (Ccc-Chip Separator) Elli [facility]/DYEING MACHINE FEEDER Service: Speech/Swallow Author Type: Speech Language Pathologist Type: Therapy (PT/OT/Speech/Resp) Filed: 03/14/2020 3:44 PM Note Text: Speech Therapy Treatment SERVICE DATE: 03/14/2020 SERVICE TIME: 7950 to 4242 ROOM: [place] [address] IMPRESSION: Patient demonstrates oropharyngeal dysphagia which is negatively impacting his/her ability to effectively maintain adequate nutrition and hydration and/or airway safety. Patient demonstrates cognitive-communication deficits which is negatively impacting the patient's ability to effectively communicate basic ADL medical and social wants/needs with familiar and unfamiliar communication partners. Diet Recommendations: Dysphagia Level 1 (Pureed) Mildly Thick Liquids IDDSI Level 2 ([place] Thick) Medications crushed in puree (pudding/applesauce) ? [...] tolerance;Motivated Current Hospital Course: COVID-19+ transfer from ICU to 9100. CT chest There is a [...] (Pureed), Mildly Thick Liquids IDDSI Level 2 ([place] Thick) Swallow Consistencies Presented: Mildly Thick Liquids IDDSI Level 2 ([place] Thick), Puree Response to Consistencies Presented: No [...] tolerate Mildly Thick Liquids IDDSI Level 2 ([place] Thick) consistency while utilizing compensatory/swallowing strategies given [...] following cerebral infarction Interventions Provided: Dysphagia Therapy (16599);Speech Therapy (06319) $ Dysphagia Therapy (64178) Billed Units: 1 unit $ Speech Therapy (92628) Billed Units: 1 unit Training and education provided in: Swallowing Strategies, Dysphagia Management, Motor Speech Skills(Left sided awareness) The following therapeutic skills were used:: Tactile cuing, Repetitive task learning, Verbal cuing, Interpretation and instruction of instrumental assessment Total Treatment Time (minutes): 25 Home Environment Prior Functional Level: Within Functional Limits Patient Lives With: Self/Alone Assistance Available: multimedia artist Prior Swallowing Function/Diet Textures: Regular Consistency;Thin Liquids IDDSI Level 0 Please see discipline specific clinical documentation flowsheet for complete details for this therapy evaluation/treatment. SIGNATURE: Osmar Calloway [facility]-DYEING MACHINE FEEDER PATIENT NAME: Lisa Shirley DATE: March 14, 2020 TIME: 3:34 PM Normal [facility] THERAPY NT HNO ID: [id number] Author: Silvia Valdezr/Darion López Service: Occupational Therapy Author Type: Occupational Therapist Type: Therapy (PT/OT/Speech/Resp) Filed: 03/14/2020 2:15 PM Note Text: Occupational Therapy Treatment SERVICE DATE: 03/14/2020 SERVICE TIME: 1645 to 6261 ROOM: [id number] Recommended Discharge Disposition: Acute Rehab Recommended Discharge [...] Walk in Laundry: Minimally completes Equipment Owned: [employer] Bridge-Shower Prior Functional Level: (driving, activity limited by LBP) Prior Functional Level Comments: 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; 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 d/t 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 pain Patient Report: Patient agreeable to therapy with education, encouragement. Reports, I've got to lay back down after sitting several minutes edge of bed. Oh, those tangles hurt when combing hair CURRENT FUNCTIONAL STATUS: Most recent performance Current Activities of Daily Living Assist Level Additional Information Feeding Minimal Assistance;Additional Information Now on puree/thick liquid diet. Provided positioning in sitting at edge of bed, with set up of meal on bedside table. Minimal assist to fruit picker spoon/cup and stabilize plate/bowl to self feed. [...] LUE shoulder flexion 0-100 AROM, WFL AAROM. Im just so tired Strength: Upper Extremity Comments Right Upper Extremity [...] (ADL);Muscle Weakness (generalized) Interventions Provided: Therapeutic Exercise (03759);Self Fpc Management (21446) Therapeutic Exercise (32598) Treatment Minutes: 10 $ Therapeutic Exercise (74337) Billed Units: 1 unit Provided BUE AROM [...] continue to follow through. Self Fpc Management (40581) Treatment Minutes: 14 $ Self Fpc Management (85656) Billed Units: 1 unit Provided activities of [...] details for this therapy evaluation/treatment. SIGNATURE: SUKHI Mckeon/Blue PATIENT NAME: Lisa Shirley DATE: March 14, 2020 TIME: 2:09 PM [facility] ALLIED HEALTHon 03-13-2020 ALLIED HEALTH HNO ID: [id number] Author: Jade Bansal (Rt) Service: Radiology Author Type: Side Splitter Type: Allied Health Filed: 03/13/2020 11:51 AM [...] RT Rolf March 13, 2020 11:50 AM [facility] ALLIED HEALTH HNO ID: [id number] Author: Chalino Jean-BaptisteRtJade Caceres Service: Radiology Author Type: Side Splitter Type: Allied Health Filed: 03/13/2020 10:45 AM [...] PERIPHERAL IV DATA: Inpatient - refer to [facility] documentation RADIOLOGY DEPARTMENT: CT; Exam(s) Completed: CTA Brain and CTA Neck SIGNATURE: RT Darrick PATIENT NAME: Lisa Shirley DATE: March 13, 2020 TIME: 10:45 AM Normal [facility] CASE MANAGEMon 03-13-2020 CASE MANAGEM HNO ID: [id number] Author: Paulette Cruz (Sw) Service: ? Author Type: Natural Gas Engineer Type: Care Mgt Progress Note Filed: 03/13/2020 [...] she does not want any therapy from [facility]. Reviewed options for HHC and pt hesitant but agreeable for SW to send referrals. Referrals sent to [facility], [facility], [facility], and [facility]. SIGNATURE: JESUS Alvarez PATIENT NAME: Lisa Shirley DATE: March 13, 2020 TIME: 3:51 PM PAGER/CONTACT #: [phone] Normal [facility] CONSULT PROGon 03-13-2020 CONSULT PROG HNO ID: [id number] Author: Dantua Pulido (Pa) Service: Neurology ICU Author Type: Physician Map And Chart Mounter Type: Consult Progress Note Filed: 03/13/2020 6:09 [...] March 13, 2020 6:09 PM 1763 Normal [facility] CTA HEAD W IVCONon 0 CTA HEAD W IVCON Final Report DATE OF EXAM: Mar 13 2020 10:43AM [facility] 0022 - CTA HEAD W IVCON / [...] Applicable Spot Sign Number: Not Applicable NECK: Computer Operations Specialist (topogram) images: No additional findings. Soft tissues: [...] are patent. The basilar artery is patent. electric motor repairing supervisor are patent. SCAs are patent. Focal moderate [...] to moderate stenosis at described. No aneurysm. Director Of Archives: TENISHA Transcribe Date/Time: Mar 13 2020 11:24A Dictated by : SARAH LAWSON MD This examination was interpreted and the report reviewed and electronically signed by: SARAH LAWSON MD on Mar 13 2020 11:53AM EST Normal [facility] CTA NECK W IVCONon 0 CTA NECK W IVCON Final Report DATE OF EXAM: Mar 13 2020 10:43AM [facility] 0024 - CTA NECK W IVCON / [...] Applicable Spot Sign Number: Not Applicable NECK: Computer Operations Specialist (topogram) images: No additional findings. Soft tissues: [...] are patent. The basilar artery is patent. electric motor repairing supervisor are patent. SCAs are patent. Focal moderate [...] to moderate stenosis at described. No aneurysm. Director Of Archives: PSCB Transcribe Date/Time: Mar 13 2020 11:24A Dictated by : SARAH LAWSON MD This examination was interpreted and the report reviewed and electronically signed by: SARAH LAWSON MD on Mar 13 2020 11:53AM EST Normal [facility] PROGRESSon 03-13-2020 PROGRESS HNO ID: [id number] Author: Maite Regalado Service: Hospital Medicine Author Type: Physician Type: Progress Notes Filed: 03/13/2020 9:30 PM Note Text: DEPARTMENT OF HOSPITAL MEDICINE [facility] PROGRESS NOTE- HOSPITAL DAY 5 SERVICE DATE: 03/13/2020 9:04 PM Hospital Medicine/Primary Attending: Maite Regalado MD [...] in DKA, No LVO, patient admitted to [facility] NICU. Patient also had left trimal [...] and IBS who presents as transfer from [place] with findings of acute R MCA stroke. [...] but no prior deficits. In ED at [place], stroke eval performed with CT findings of R caudate, insula and frontal evolving infarcts. ASPECTS score 5. CTA nondiagnostic as contrast infiltrated in arm and IV access lost during scan. Central line placed at [place] for access. Patient out of window for [...] by XR. Patient subsequently transferred here to [facility] NSICU for further stroke workup and management.? ? Patients AG closed yesterday, was transitioned to subcutaneous insuli therapy. Patient found to also be asymptomatic and covid+, remained stable hemodynamically. -- Since transfer from ICU, patient has [...] Temp Temp src Pulse Resp SpO2 Weight 03/13/208 181/87 36.9 ?C (98.4 ?F) Oral 71 [...] Yes ?Assessment AND?Plan: Mild, no ACS or MO suspected ?Closed left ankle fracture POA: Yes [...] with nursing staff and/or other providers, documentation, cut order hand, and uwje-bh-jyqx time with patient.? ? Diagnostic tests reviewed [...] POSIFLUSH) 20 mL INTRAVENOUS PRN - pill machine feed operator (patient-specific) 1 Each Miscell. (Med.Supl.;Non-Drugs) PRN - [...] injection (short acting) (NovoLIN R,HumuLIN R) SIGNATURE: Maite Regalado MD PATIENT NAME: Lisa Shirley DATE: March 13, 2020 TIME: 9:04 PM PAGER #: Primary Service NIGHT AND WEEKEND COVERAGE: After 7pm please page [phone] Normal [facility] PROGRESS HNO ID: [id number] Author: Leland Herrera Service: Orthopaedic Surgery Author [...] (Axillary) Resp 18 Ht 167.6 cm (5' 6) Wt 99.7 kg (219 lb 11.2 oz) [...] Rogers MD Resident, Orthopaedic Surgery Pager #: [phone] 03/13/2020 7:01 AM Please page [phone] from 5p-6a and on weekends for any issues. Normal [facility] THERAPY NTon 03-13-2020 THERAPY NT HNO ID: [id number] Author: Jamila (Pt) Yared Service: Physical Therapy Author Type: Physical Therapist Type: Therapy (PT/OT/Speech/Resp) Filed: 03/13/2020 3:54 PM Note Text: Physical Therapy Treatment SERVICE DATE: 03/13/2020 SERVICE TIME: 1518 to 1530 ROOM: [place] [address] Recommended Discharge Disposition: Acute Rehab Justification For [...] Prior Functional Level Comments: 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; 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 d/t 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 pain [...] Toilet/Commode Gait Stairs Curb Step Car Transfer -M: 2: Bed activities / dependent transfer Learning/Educational [...] Weakness (generalized);Difficulty walking-musculoskeletal Interventions Provided: Therapeutic Exercise (96874) Therapeutic Exercise (83886) Treatment Minutes: 12 $ Therapeutic Exercise (49953) Billed Units: 1 unit Encouraged up to [...] March 13, 2020 TIME: 3:52 PM Normal [facility] THERAPY NT HNO ID: [id number] Author: Osmar (Ccc-Chip Separator) Elli [facility]/DYEING MACHINE FEEDER Service: Speech/Swallow Author Type: Speech Language Pathologist Type: Therapy (PT/OT/Speech/Resp) Filed: 03/13/2020 12:14 PM Note Text: Speech Therapy MBSS Evaluation SERVICE DATE: 03/13/2020 SERVICE TIME: 1050 to 1120 ROOM: [place] [address] IMPRESSION: Patient demonstrates oropharyngeal dysphagia which is negatively impacting his/her ability to effectively maintain adequate nutrition and hydration and/or airway safety. Diet Recommendations: Dysphagia Level 1 (Pureed) Mildly Thick Liquids IDDSI Level 2 ([place] Thick) Medications crushed in puree (pudding/applesauce) Swallowing [...] tolerance;Motivated Current Hospital Course: [facility]. CT chest There is a [place]ak tube [...] Thin Barium Liquids, Mildly Thick Barium Liquids ([place] Thick), Puree With Barium Paste, Soft Solid [...] 0, Mildly Thick Liquids IDDSI Level 2 ([place] Thick), Puree, Soft Solid Aspiration: During the swallow Aspiration With: Thin Liquids IDDSI Level 0, Mildly Thick Liquids IDDSI Level 2 ([place] Thick) Penetration/Aspiration Scale: 7-Material enters the airway, [...] infarction Interventions Provided: Modified Barium Swallow Study (87395) $ Modified Barium Swallow Study (18502) Billed Units: 1 unit Total Treatment Time (minutes): 30 Home Environment Prior Functional Level: Within Functional Limits Patient Lives With: Self/Alone Assistance Available: multimedia artist Prior Swallowing Function/Diet Textures: Regular Consistency;Thin Liquids IDDSI Level 0 Please see discipline specific clinical documentation flowsheet for complete details for this therapy evaluation/treatment. SIGNATURE: Osmar Calloway [facility]-DYEING MACHINE FEEDER PATIENT NAME: Lisa Shirley DATE: March 13, 2020 TIME: 12:09 PM Normal [facility] XR MOD BARIUM SWALLOW W SHERWIN Flores 03-13-2020 XR MOD BARIUM SWALLOW W [...] min:sec IMPRESSION: Abnormal modified barium swallow study. Director Of Archives: TENISHA Transcribe Date/Time: Mar 13 2020 4:13P Dictated by : SARAH LAWSON MD This examination was interpreted and the report reviewed and electronically signed by: SARAH LAWSON MD on Mar 13 2020 4:13PM [facility] ALLIED HEALTH 03-12-2020 ALLIED HEALTH HNO ID: [id number] Author: Jade Farmer (Rt) Service: ? Author Type: Side Splitter Type: Allied Health Filed: 03/12/2020 3:39 PM [...] RT Marleny March 12, 2020 3:38 PM [facility] CASE MANAGEMon 03-12-2020 CASE MANAGEM HNO ID: [id number] Author: Paulette Cruz (Sw) Service: ? Author Type: Natural Gas Engineer Type: Care Mgt Progress Note Filed: 03/12/2020 [...] 12, 2020 TIME: 1:46 PM PAGER/CONTACT #: [phone] [facility] CASE MGT INIT Deborah 2019 CASE MGT INIT [place] HNO ID: [id number] Author: Paulette Cruz (Sw) Service: ? 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 Last discharge within 30 days: No Advance Directive: Current Advance Directive: Health Care Power of Mend Worker;Living Will In Chart: Yes Up To [...] Walker;Cane Has the Patient Been in a Nursing Home Facility in the Past 30 days?: No [...] Completely I feel financially burdened by my kug-ql-iwbrts expenses for my prescription medication:: 0 - [...] Health Information: Depression FREEDOM OF CHOICE EXPLAINED: [employer] of Choice Given: Yes Level of Care Discussed: Inpatient Rehab Facility Financial Disclosure Provided: Yes Provider List: Rehab Facility Provider list within the patient's requested geographic area shared with the patient/family: Yes within: [place] miles of [facility] code: [address]244 Quality and resource use metrics shared with [...] Depression Called pt on the phone. IND FLAT DRIER +PCP +DME +RX +AD From home alone. Pt endorses depression prior to this admission and scored very high on geriatric depression screening. Discussed results and treatment options with pt who is ambivalent about psychiatry and/or therapy for treatment. Pt also endorses concerns about misusing her prescription medications including xanax, Ambien, and oxycodone. Pt reports she has been taking more than prescribed for months. Pt ambivalent about treatment but demonstrates insight [...] 12, 2020 TIME: 3:59 PM PAGER/CONTACT #: [phone] [facility] CONSULTon 03-12-2020 CONSULT HNO ID: [id number] Author: Severo Barragan MD Service: Neurology Stroke [...] and IBS who presents as transfer from [place] with findings of acute R MCA stroke. [...] but no prior deficits. In ED at [place], stroke eval performed with CT findings of R caudate, insula and frontal evolving infarcts. ASPECTS score 5. CTA nondiagnostic as contrast infiltrated in arm and IV access lost during scan. Central line placed at [place] for access. Patient out of window for [...] by XR. Patient subsequently transferred here to [facility] NSICU for further stroke workup and [...] to admission: No Pre-morbid mRS: Premorbid Modified Aurora Score: 0 - No symptoms at all [...] (Oral) Resp 18 Ht 167.6 cm (5' 6) Wt 108 kg (238 lb 3.2 oz) [...] Large Infarct on CT or MR Imaging [place] Coma Scale Totals (Calculated): 15 STROKE 9 [...] Daily Rounding Date: 03/08/20 Daily Rounding Time: 2200 PROBLEM LIST: Principal Problem: Acute right MCA [...] 12, 2020 TIME: 12:13 PM PAGER/CONTACT #: [phone] Normal [facility] Comp Metab 2000 Pnl SerPlon 03-12-2020 Albumin [Mass/Vol] 3.0 g/dL Low 3.9-4.9 [facility] Comment on above: Order Comment: Speci men Type: BLOOD SPECIMEN Performed By: #### 2 532-0, 59255-0 ####[facility] LABORATORYCLIA [id number] [place] [address] ALP [Catalytic activity/Vol] 52 U/L Normal 34-123 [facility] Comment on above: Order Comment: Speci men Type: BLOOD SPECIMEN Performed By: #### 2 532-0, 18119-3 ####[facility] LABORATORYCLIA [id number] [place] [address] ALT With P-5'-P [Catalytic activity/Vol] 14 U/L Normal 7-38 [facility] Comment on above: Order Comment: Speci men Type: BLOOD SPECIMEN Performed By: #### 2 532-0, ####[facility]ORATORYCLIA [id number] [place] [address] Anion gap [Moles/Vol] 10 mmol/L Normal 9-18 [facility] Comment on above: Order Comment: Speci men Type: BLOOD SPECIMEN Performed By: #### 2 532-0, ####[facility] LABORATORYCLIA [id number] [place] [address] AST With P-5'-P [Catalytic activity/Vol] 12 U/L Low 13-35 [facility] Comment on above: Order Comment: Speci men Type: BLOOD SPECIMEN Performed By: #### 2 532-0, ####[facility]ORATORYCLIA [id number] [place] [address] Bilirubin [Mass/Vol] 0.3 mg/dL Normal 0.2-1.3 [facility] Comment on above: Order Comment: Speci men Type: BLOOD SPECIMEN Performed By: #### 2 532-0, ####[facility]ORATORYCLIA [id number] [place] [address] Calcium [Mass/Vol] 7.9 mg/dL Low 8.5-10.2 [facility] Comment on above: Order Comment: Speci men Type: BLOOD SPECIMEN Performed By: #### 2 532-0, ####[facility]ORATORYCLIA [id number] [place] [address] Chloride [Moles/Vol] 107 mmol/L High 97-105 [facility] Comment on above: Order Comment: Speci men Type: BLOOD SPECIMEN Performed By: #### 2 532-0, ####[facility]ATORYCLIA [id number] [place] [address] CO2 [Moles/Vol] 25 mmol/L Normal 22-30 [facility] Comment on above: Order Comment: Speci men Type: BLOOD SPECIMEN Performed By: #### 2 532-0, ####[facility] LABORATORYCLIA [id number] [place] [address] Creatinine [Mass/Vol] 0.99 mg/dL High 0.58-0.96 [facility] Comment on above: Order [facility]: [facility] Type: BLOOD SPECIMEN Performed By: #### 2 532-0, 21211-1 ####[facility] LABORATORYCLIA [id number] [place] [address] GFR/1.73 sq M.predicted MDRD (S/P/Bld) [Vol rate/Area] mL/min/{1.73_m2} Normal [facility] Comment on above: Order Comment: Speci men [...] actual GFR. Performed By: #### 2 532-0, 78722-0 ####[facility] LABORATORYCLIA [id number] [place] [address] Glucose [Mass/Vol] 279 mg/dL High 74-99 [facility] Comment on above: Order Comment: [facility] Type: BLOOD SPECIMEN Result Comment: The [place] Diabetes Association (ADA) provides guidance for cutoff [...] Standards of Medical Care in Diabetes 2016, [place] Diabetes Association. Diabetes Care. 2016.39(Suppl 1). Performed By: #### 2 532-0, 30923-8 ####[facility]ORYCLIA [id number] [place] [address] Potassium [Moles/Vol] 3.8 mmol/L Normal 3.7-5.1 [facility] Comment on above: Order Comment: Speci men Type: BLOOD SPECIMEN Performed By: #### 2 532-0, 00434-4 ####[facility] LABORATORYCLIA [id number] [place] [address] Protein [Mass/Vol] 5.3 g/dL Low 6.3-8.0 [facility] Comment on above: Order Comment: Speci men Type: BLOOD SPECIMEN Performed By: #### 2 532-0, 99828-1 ####[facility] LABORATORYCLIA [id number] [place] [address] Sodium [Moles/Vol] 142 mmol/L Normal 136-144 [facility] Comment on above: Order Comment: Speci men Type: BLOOD SPECIMEN Performed By: #### 2 532-0, 81916-1 ####[facility]ORYCLIA [id number] [place] [address] Urea nitrogen [Mass/Vol] 32 mg/dL High 7-21 [facility] Comment on above: Order Comment: Speci men Type: BLOOD SPECIMEN Performed By: #### 2 532-0, 34123-5 ####[facility] LABORATORYCLIA [id number] [place] [address] D dimer FEU PPP-ncon 03-12 D DIMER AGE-RELATED CUTOFF 720 ng/mL FEU Normal [facility] Comment on above: Order Comment: Speci men Type: BLOOD SPECIMEN Performed By: #### 3 4528-0, 65268-8 ####[facility]ATORYCLIA [id number] [place] [address] Fibrin D-dimer FEU (PPP) [Mass/Vol] 2680 ng/mL FEU High <500 [facility] Comment on above: Order Comment: Speci men Type: BLOOD SPECIMEN Performed By: #### 3 4528-0, 17634-1 ####[facility]ATORYCLIA [id number] [place] [address] LDH SerPl-cCncon 03-12-2020 LDH [Catalytic activity/Vol] 274 U/L High 135-214 [facility] Comment on above: Order Comment: Speci men Type: BLOOD SPECIMEN Performed By: #### 2 532-0, 90392-4 ####[facility] LABORATORYCLIA [id number] [place] [address] NURSING PROGon 03-12-2020 NURSING PROG HNO ID: [id number] Author: Carmina Jean-BaptisteRn) Mary Kay, RN Service: Nursing Author Type: Registered Nurse Type: Nursing Progress Note Filed: 03/12/2020 7:29 PM Note Text: Nursing Progress Note Patient Name: Lisa Shirley Patient Location: [id number] 1 Daily Note: Paged sound orange at 1357 to obtain IV fluid order and switching some PO meds to IV since we now have a double lumen PICC. This note was completed by: Carmina Muñiz RN [facility] NURSING PROG HNO ID: [id number] Author: Carmina Jean-BaptisteRn) Mary Kay, RN Service: Nursing Author Type: Registered Nurse Type: Nursing Progress Note Filed: 03/12/2020 3:34 PM Note Text: Nursing Progress: Topic: RESTRAINT NON-VIOLENT PATIENT NAME: Lisa Shirley PATIENT LOCATION: [id number]/[facility]* The patient demonstrates Attempting to Remove Medical [...] 2020 TIME: 3:33 PM Carmina Muñiz RN [facility] PROCEDUREon 03-12-2020 PROCEDURE HNO ID: [id number] Author: Silvia (Rn) JONNY Rothman Service: PICC Team Author Type: Registered Nurse Type: Procedures Filed: 03/12/2020 3:51 PM Note Text: PICC NURSE INSERTION NOTE DATE OF PROCEDURE: March 12, 2020 TIME OF PROCEDURE: 1400 ORDERING PHYSICIAN: Sabine INFORMED CONSENT: Obtained per hospital policy. INDICATION FOR LINE PLACEMENT: IV access CONDITION OF LINE PLACEMENT: Sterile PRIMARY PROCEDURALIST: Frances Cook RN WELDING MACHINE OPERATOR HELPER ARC: Genie Drummond RN PRE-PROCEDURE REVIEW ALLERGIES Allergen [...] Drummond RN CATHETER PLACEMENT Brand: Bard Lot: [id number] Number of Lumens: 2 Type of PICC: Power Injectable PICC Lumen Size: 5 Ghanaian PLACEMENT TECHNIQUE Lidocaine: Yes, Lidocaine 1% Volume [...] None Patient Education Materials: Placed in chart [facility] Central Line Insertion Checklist utilized during this procedure QUESTIONS or PROBLEMS: Call [phone] SIGNATURE: Genie Drummond RN PATIENT NAME: Lisa Shirley DATE: March 12, 2020 TIME: 2:18 PM PAGER/CONTACT PHONE: [facility] PROGRESSon 03-12-2020 PROGRESS HNO ID: [id number] Author: Maite Regalado Service: Hospital Medicine Author Type: Physician Type: Progress Notes Filed: 03/12/2020 7:59 PM Note Text: DEPARTMENT OF HOSPITAL MEDICINE [facility] PROGRESS NOTE- HOSPITAL DAY 4 SERVICE [...] Assessment AND Plan: Mild, no ACS or MO suspected ? ? Closed left ankle fracture [...] with nursing staff and/or other providers, documentation, cut order hand, and izof-mr-epft time with patient.? ? Diagnostic tests reviewed [...] POSIFLUSH) 20 mL INTRAVENOUS PRN - pill machine feed operator (patient-specific) 1 Each Miscell. (Med.Supl.;Non-Drugs) PRN - [...] AND WEEKEND COVERAGE: After 7pm please page [phone] [facility] PROGRESS HNO ID: [id number] Author: Silvia Tovar) JONNY Rothman Service: PICC Team Author Type: Registered Nurse Type: Progress Notes Filed: 03/12/2020 9:09 AM Note Text: PICC/VASCULAR ACCESS PROGRESS NOTE SERVICE DATE: 03/12/2020 SERVICE TIME: 904 PICC Consult: Talked with Dr Frye about GFR of 43, clearance given to place PICC. SIGNATURE: Silvia Rothman RN PATIENT NAME: Lisa Shirley DATE: March 12, 2020 TIME: 9:08 AM PAGER/CONTACT #: [phone] [facility] PROGRESS HNO ID: [id number] Author: Leland Herrera Service: Orthopaedic Surgery Author [...] (Axillary) Resp 18 Ht 167.6 cm (5' 6) Wt 108 kg (238 lb 3.2 oz) SpO2 96% BMI 38.45 kg/m? Intake/Output Summary (Last 24 hours) 03/11 2300 - 03/12 0659 In: - Out: 750 [...] Rogers MD Resident, Orthopaedic Surgery Pager #: [phone] 03/12/2020 5:54 AM Please page [phone] from 5p-6a and on weekends for any issues. Normal [facility] PT EDon 03-12-2020 PT ED HNO ID: [id number] Author: Genie Jean-BaptisteRn) JONNY Drummond Service: PICC Team Author Type: [...] Care SUPPLEMENTAL MATERIAL: PICC Line brochure and [facility] catheter-Associated Bloodstream Infection fact sheet Normal [facility] PT Pnl PPPon 03-12-2020 INR Coag (PPP) [Relative time] 1.1 {INR} Normal 0.9-1.3 [facility] Comment on above: Order Comment: Speci men Type: BLOOD SPECIMEN Result Comment: Francia min K Antagonist (VKA) Therapeutic Range: INR 2 to 3 (Target INR of 2.5) Note: For patients treated with VKA drugs, such as warfarin, the [place] College of Chest Physicians 2012 Guideline recommends [...] GH, et al. Chest 2012, 141:7S-47S Caro CORBIN et al. JACC 2017, 70: 252-289 Performed By: #### 3 4528-0, 76564-6 ####[facility] LABORATORYCLIA [id number] [place] [address] PT Coag (PPP) [Time] 11.4 s Normal 9.7-13.0 [facility] Comment on above: Order Comment: Speci men Type: BLOOD SPECIMEN Performed By: #### 3 4528-0, 34018-0 ####[facility] LABORATORYCLIA [id number] [place] [address] THERAPY NTon 03-12-2020 THERAPY NT HNO ID: [id number] Author: Osmar (Ccc-Chip Separator) Elli CCC/DYEING MACHINE FEEDER Service: Speech/Swallow Author Type: Speech Language Pathologist Type: Therapy (PT/OT/Speech/Resp) Filed: 03/12/2020 4:30 PM Note Text: Speech Therapy Treatment SERVICE DATE: 03/12/2020 SERVICE TIME: 1500 to 1530 ROOM: [place] [address] IMPRESSION: Patient demonstrates?oropharyngeal? dysphagia which is negatively [...] tolerance;Motivated Current Hospital Course: COVID-19+ transfer from [facility] to [facility]. CT chest There is a Corpak tube [...] tasks with able to find the letter G in various columns on a paper - only able to find the G on the right furthest 2 columns Speech Therapy to follow to improve cognitive-communication Swallow Assessment Consistencies Tested: Mildly Thick Liquids IDDSI Level 2 ([place] Thick), Puree Patient with improved alertness today [...] following cerebral infarction Interventions Provided: Dysphagia Therapy (72815);Speech Therapy (94809) $ Dysphagia Therapy (30048) Billed Units: 1 unit $ Speech Therapy (77193) Billed Units: 1 unit Training and education provided in: Swallowing Strategies, Dysphagia Management, Dietary Consistencies, Motor Speech Skills(Left sided awareness) The following therapeutic skills were used:: Verbal cuing, Tactile cuing, Repetitive task learning, Instruction in self-monitoring / self-assessment Total Treatment Time (minutes): 30 Home Environment Prior Functional Level: Within Functional Limits Patient Lives With: Self/Alone Assistance Available: multimedia artist Prior Swallowing Function/Diet Textures: Regular Consistency;Thin Liquids IDDSI Level 0 Please see discipline specific clinical documentation flowsheet for complete details for this therapy evaluation/treatment. SIGNATURE: Osmar Calloway CCC-DYEING MACHINE FEEDER PATIENT NAME: Lisa Shirley DATE: March 12, 2020 TIME: 4:25 PM Normal [facility] XR CHEST 1V FRONTALon 2019 XR CHEST [...] patient's mouth or throat. Please correlate clinically. Director Of Archives: PSCB Transcribe Date/Time: Mar 12 2020 3:39P Dictated by : J LUIS GAYLE MD This examination was interpreted and the report reviewed and electronically signed by: J LUIS GAYLE MD on Mar 12 2020 3:42PM EST Normal [facility] CBC W Auto Diff [place] 2019 Basophils (Bld) [#/Vol] 10*3/uL Normal <0.11 [facility] Comment on above: Order Comment: Speci men Type: BLOOD SPECIMEN Performed By: #### 5 8410-2 #### [facility] CLIA [id number] [address] [place] Basophils/100 WBC (Bld) 0.1 % Normal [facility] Comment on above: Order Comment: Speci men Type: BLOOD SPECIMEN Performed By: #### 5 8410-2 #### [facility] CLIA [id number] [address] [place] [address] [place] Differential cell count method Nom (Bld) Auto Normal [facility] Comment on above: Order Comment: Speci men Type: BLOOD SPECIMEN Performed By: #### 5 8410-2 #### [facility] CLIA [id number] [address] [place] [address] [place] [facility] Eosinophils (Bld) [#/Vol] 10*3/uL Normal <0.46 [facility] Comment on above: Order Comment: Speci men Type: BLOOD SPECIMEN Performed By: #### 5 8410-2 #### [facility] CLIA [id number] [address] [place] [address] [place] [facility] Eosinophils/100 WBC (Bld) 0.0 % Normal [facility] Comment on above: Order Comment: Speci men Type: BLOOD SPECIMEN Performed By: #### 5 8410-2 #### [facility] CLIA [id number] [address] [place] [address] [place] Erythrocyte distribution width (RBC) [Ratio] 12.9 % Normal 11.5-15.0 [facility] Comment on above: Order Comment: Speci men Type: BLOOD SPECIMEN Performed By: #### 5 8410-2 #### [facility] CLIA [id number] [address] [place] [address] [facility] Hematocrit (Bld) [Volume fraction] 35.8 % Low 36.0-46.0 [facility] Comment on above: Order Comment: Speci men Type: BLOOD SPECIMEN Performed By: #### 5 8410-2 #### [facility] CLIA [id number] [address] [place] [address] [place] Hemoglobin (Bld) [Mass/Vol] 12.2 g/dL Normal 11.5-15.5 [facility] Comment on above: Order Comment: Speci men Type: BLOOD SPECIMEN Performed By: #### 5 8410-2 #### [facility] CLIA [id number] [address] [place] [address] [place] IMMATURE GRAN % 0.6 % Normal [facility] Comment on above: Order Comment: Speci men Type: BLOOD SPECIMEN Performed By: #### 5 8410-2 #### [facility] CLIA [id number] [address] [place], [place] [address] [place] [address] IMMATURE GRAN ABS 0.06 k/uL Normal <0.10 [facility] Comment on above: Order Comment: Speci men Type: BLOOD SPECIMEN Performed By: #### 5 8410-2 #### [facility] CLIA [id number] [address] [place], [place] [address] [place] [address] Lymphocytes (Bld) [#/Vol] 1.51 10*3/uL Normal 1.00-4.00 [facility] Comment on above: Order Comment: Speci men Type: BLOOD SPECIMEN Performed By: #### 5 8410-2 #### [facility] CLIA [id number] [address] Lymphocytes/100 WBC (Bld) 15.3 % Normal [facility] Comment on above: Order Comment: Speci men Type: BLOOD SPECIMEN Performed By: #### 5 8410-2 #### [facility] CLIA [id number] [address] MCH (RBC) [Entitic mass] 31.6 pg Normal 26.0-34.0 [facility] Comment on above: Order Comment: Speci men Type: BLOOD SPECIMEN Performed By: #### 5 8410-2 #### [facility] CLIA [id number] [address] [place] [address] [facility] MCHC (RBC) [Mass/Vol] 34.1 g/dL Normal 30.5-36.0 [facility] Comment on above: Order Comment: Speci men Type: BLOOD SPECIMEN Performed By: #### 5 8410-2 #### [facility] CLIA [id number] [address] [place] [address] [facility] MCV (RBC) [Entitic vol] 92.7 fL Normal 80.0-100.0 [facility] Comment on above: Order Comment: Speci men Type: BLOOD SPECIMEN Performed By: #### 5 8410-2 #### [facility] CLIA [id number] [address] [place] [address] [place] Monocytes (Bld) [#/Vol] 0.73 10*3/uL Normal <0.87 [facility] Comment on above: Order Comment: Speci men Type: BLOOD SPECIMEN Performed By: #### 5 8410-2 #### [facility] CLIA [id number] [address] [place] [address] [place] Monocytes/100 WBC (Bld) 7.4 % Normal [facility] Comment on above: Order Comment: Speci men Type: BLOOD SPECIMEN Performed By: #### 5 8410-2 #### [facility] CLIA [id number] [address] [place] [address] [place] Neutrophils (Bld) [#/Vol] 7.56 10*3/uL High 1.45-7.50 [facility] Comment on above: Order Comment: Speci men Type: BLOOD SPECIMEN Performed By: #### 5 8410-2 #### [facility] CLIA [id number] [address] [place] [address] [place] Neutrophils/100 WBC (Bld) 76.6 % Normal [facility] Comment on above: Order Comment: Speci men Type: BLOOD SPECIMEN Performed By: #### 5 8410-2 #### [facility] CLIA [id number] [address] [place] [address] [place] Nucleated RBC (Bld) [#/Vol] 10*3/uL Normal <0.01 [facility] Comment on above: Order Comment: Speci men Type: BLOOD SPECIMEN Performed By: #### 5 8410-2 #### [facility] CLIA [id number] [address] [place] [address] [place] Nucleated RBC/100 WBC (Bld) [Ratio] 0.0 /100 WBC Normal 0.0 [facility] Comment on above: Order Comment: Speci men Type: BLOOD SPECIMEN Performed By: #### 5 8410-2 #### [facility] CLIA [id number] [address] [place] [address] [facility] Platelet mean volume (Bld) [Entitic vol] 11.6 fL Normal 9.0-12.7 [facility] Comment on above: Order Comment: Speci men Type: BLOOD SPECIMEN Performed By: #### 5 8410-2 #### [facility] CLIA [id number] [address] [place] [address] [place] Platelets (Bld) [#/Vol] 244 10*3/uL Normal 150-400 [facility] Comment on above: Order Comment: Speci men Type: BLOOD SPECIMEN Performed By: #### 5 8410-2 #### [facility] CLIA [id number] [address] [place] [address] [place] RBC (Bld) [#/Vol] 3.86 10*6/uL Low 3.90-5.20 [facility] Comment on above: Order Comment: Speci men Type: BLOOD SPECIMEN Performed By: #### 5 8410-2 #### [facility] CLIA [id number] [address] [place] [address] [facility] [place] WBC (Bld) [#/Vol] 9.87 10*3/uL Normal 3.70-11.00 [facility] Comment on above: Order Comment: Speci men Type: BLOOD SPECIMEN Performed By: #### 5 8410-2 #### [facility] CLIA [id number] [address] [place] [address] [facility] NUTRITIONon 03-11-2020 NUTRITION HNO ID: [id number] Author: Tyra Gallardo RD Service: Nutrition Therapy Author Type: Registered Dietitian Type: Nutrition Filed: 03/11/2020 12:30 PM Note Text: NUTRITION THERAPY PROGRESS NOTE SERVICE DATE: 03/11/2020 SERVICE TIME: 12:15 Nutrition Assessment: Recommended Malnutrition Diagnosis: No Malnutrition Identified (03/09/20 1118 : Ann (Rd) DANIKA Friend) Estimated kilocalorie needs: 1480 - 1780 Calorie Calculation Method: 25-30 kcals/kg Estimated protein needs (grams): 71 - 90 Grams protein determined by: 1.2-1.5 g/kg;[place] Body Weight Care Plan: Enteral Nutrition Tube [...] ankle fx. Anthropometrics: Height: 167.6 cm (5' 6) Weight: 108 kg (238 lb 3.2 oz) [...] March 11, 2020 TIME: 12:15 PM PAGER: [phone] [facility] PROGRESSon 03-11-2020 PROGRESS HNO ID: [id number] Author: Maite Regalado Service: Hospital Medicine Author Type: Physician Type: Progress Notes Filed: 03/11/2020 9:29 PM Note Text: DEPARTMENT OF HOSPITAL MEDICINE [facility] PROGRESS NOTE- HOSPITAL DAY 3 SERVICE [...] COVID here after negative rapid test at [place]. Still on Corpak feeding. Patient with moderate [...] Assessment AND Plan: Mild, no ACS or MO suspected Closed left ankle fracture POA: Yes [...] with nursing staff and/or other providers, documentation, cut order hand, and urlb-gc-ucem time with patient. Diagnostic tests reviewed for [...] AND WEEKEND COVERAGE: After 7pm please page [phone] [facility] PROGRESS HNO ID: [id number] Author: Ortega Seay Service: Infectious Disease Author Type: Physician Type: Progress Notes Filed: 03/11/2020 1:07 PM Note Text: 1:06 PM Afebrile Continue remdesivir for 5 day course and decadron for 10. Monitor daily LFTs and renal function while on the remdesivir. ID sign off. [facility] PROGRESS HNO ID: [id number] Author: Leland Herrera Service: Orthopaedic Surgery Author [...] Interval History: Chart reviewed. Patient transferred from [facility] yesterday. Dedesivir and decadron initiated per infectious disease. Physical Examination Vitals BP 173/86 Pulse 82 Temp 37 ?C (98.6 ?F) (Oral) Resp 16 Ht 167.6 cm (5' 6) Wt 108 kg (238 lb 3.2 oz) [...] MD Orthopaedic Surgery March 11, 2020 Normal [facility] THERAPY NTon 03-11-2020 THERAPY NT HNO ID: [id number] Author: Evon Garcia OT Service: Occupational Therapy Author Type: Occupational Therapist Type: Therapy (PT/OT/Speech/Resp) Filed: 03/11/2020 9:44 AM Note Text: Occupational Therapy Evaluation SERVICE DATE: 03/11/2020 SERVICE TIME: 844 to 914 ROOM: [place] [address] Recommended Discharge Disposition: Acute Rehab Recommended Discharge [...] Walk in Laundry: Minimally completes Equipment Owned: Fnbox-Shower Prior Functional Level: (driving, activity limited by LBP) Prior Functional Level Comments: 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; 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 d/t 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 pain [...] Moderate Assistance Toilet Transfer with: Moderate Assistance(To [facility] ) Tolerate (minutes of functional activity): 10 [...] Weakness (generalized) Interventions Provided: Evaluation $ Evaluation-High (47206) Billed Units: 1 unit Training AND education [...] March 11, 2020 TIME: 9:43 AM Normal [facility] THERAPY NT HNO ID: [id number] Author: Paulette Jean-BaptistePt) Neisha Service: Physical Therapy Author Type: Physical Therapist Type: Therapy (PT/OT/Speech/Resp) Filed: 03/11/2020 9:44 AM Note Text: Physical Therapy Evaluation SERVICE DATE: 03/11/2020 SERVICE TIME: 844 ROOM: [id number] Recommended Discharge Disposition: Acute Rehab Justification For [...] Walk in Laundry: Minimally completes Equipment Owned: Fnbox-Shower Prior Functional Level: (driving, activity limited by LBP) Prior Functional Level Comments: 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; 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 d/t 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 pain [...] (generalized);Difficulty walking-musculoskeletal Interventions Provided: Evaluation $ Evaluation-High (26679) Billed Units: 1 unit Patient was able [...] DATE: March 11, 2020 TIME: 9:42 [facility] HNO ID: [id number] Author: Marija Jean-BaptisteRtJade Acosta Service: Radiology Author Type: Side Splitter Type: [employer] [facility] Filed: 03/10/2020 11:47 AM Note Text: [...] RT Monie March 10, 2020 11:47 AM [facility] HNO ID: [id number] Author: Marixa Jean-BaptisteRtJade Blackwell Service: Radiology Author Type: Side Splitter Type: Allied Health Filed: 03/10/2020 5:10 AM [...] Suha March 10, 2020 5:10 AM Normal [facility] Bas Metab 2000 Pnl SerPlon 1 05-10-2019 Anion gap [Moles/Vol] 12 mmol/L Normal 9-18 [facility] Comment on above: Order Comment: Speci men Type: BLOOD SPECIMEN Performed By: #### 2 4321-2 ####[facility]IA [id number] [place] [address] Calcium [Mass/Vol] 8.8 mg/dL Normal 8.5-10.2 [facility] Comment on above: Order Comment: Speci men Type: BLOOD SPECIMEN Performed By: #### 2 4321-2 ####[facility]ORATORYCLIA [id number] [place] [address] Chloride [Moles/Vol] 104 mmol/L Normal 97-105 [facility] Comment on above: Order Comment: Speci men Type: BLOOD SPECIMEN Performed By: #### 2 4321-2 ####[facility]ORATORYCLIA [id number] [place] [address] CO2 [Moles/Vol] 23 mmol/L Normal 22-30 [facility] Comment on above: Order Comment: Speci men Type: BLOOD SPECIMEN Performed By: #### 2 4321-2 ####[facility]ORATORYCLIA [id number] [place] [address] Creatinine [Mass/Vol] 1.23 mg/dL High 0.58-0.96 [facility] Comment on above: Order Comment: Speci men Type: BLOOD SPECIMEN Performed By: #### 2 4321-2 ####[facility]ORATORYCLIA [id number] [place] [address] GFR/1.73 sq M.predicted MDRD (S/P/Bld) [Vol rate/Area] 52 mL/min/{1.73_m2} Normal [facility] Comment on above: Order Comment: Speci men [...] actual GFR. Performed By: #### 2 4321-2 ####[facility]ORATORYCLIA [id number] [place] [address] Glucose [Mass/Vol] 271 mg/dL High 74-99 [facility] Comment on above: Order Comment: Speci men Type: BLOOD SPECIMEN Result Comment: The [place] Diabetes Association (ADA) provides guidance for cutoff [...] Standards of Medical Care in Diabetes 2016, [place] Diabetes Association. Diabetes Care. 2016.39(Suppl 1). Performed By: #### 2 4321-2 ####[facility]ORATORYCLIA [id number] [place] [address] Potassium [Moles/Vol] 3.8 mmol/L Normal 3.7-5.1 [facility] Comment on above: Order Comment: Speci men Type: BLOOD SPECIMEN Performed By: #### 2 4321-2 ####[facility]ATORYCLIA [id number] [place] [address] Sodium [Moles/Vol] 139 mmol/L Normal 136-144 [facility] Comment on above: Order Comment: Speci men Type: BLOOD SPECIMEN Performed By: #### 2 4321-2 ####[facility] [id number] [place] [address] Urea nitrogen [Mass/Vol] 26 mg/dL High 7- [facility] Comment on above: Order Comment: Speci men Type: BLOOD SPECIMEN Performed By: #### 2 4321-2 ####[facility]IA [id number] [place] [address] CBC W Auto Diff [place] 2019 Basophils (Bld) [#/Vol] 0.04 10*3/uL Normal <0.11 [facility] Comment on above: Order Comment: Speci men Type: BLOOD SPECIMEN Performed By: #### 5 8410-2 #### [facility] CLIA [id number] [address] [place] [address] [facility] OF [place] Basophils/100 WBC (Bld) 0.4 % Normal [facility] Comment on above: Order Comment: Speci men Type: BLOOD SPECIMEN Performed By: #### 5 8410-2 #### [facility] CLIA [id number] [address] [place] [address] [place] Differential cell count method Nom (Bld) Auto Normal [facility] Comment on above: Order Comment: Speci men Type: BLOOD SPECIMEN Performed By: #### 5 8410-2 #### [facility] CLIA [id number] [address] [place] [address] [place] Eosinophils (Bld) [#/Vol] 10*3/uL Normal <0.46 [facility] Comment on above: Order Comment: Speci men Type: BLOOD SPECIMEN Performed By: #### 5 8410-2 #### [facility] CLIA [id number] [address] [place] [address] [place] Eosinophils/100 WBC (Bld) 0.0 % Normal [facility] Comment on above: Order Comment: Speci men Type: BLOOD SPECIMEN Performed By: #### 5 8410-2 #### [facility] CLIA [id number] [address] [place] [address] [place] Erythrocyte distribution width (RBC) [Ratio] 12.8 % Normal 11.5-15.0 [facility] Comment on above: Order Comment: Speci men Type: BLOOD SPECIMEN Performed By: #### 5 8410-2 #### [facility] CLIA [id number] [address] [place] [address] [facility] Hematocrit (Bld) [Volume fraction] 36.6 % Normal 36.0-46.0 [facility] Comment on above: Order Comment: Speci men Type: BLOOD SPECIMEN Performed By: #### 5 8410-2 #### [facility] CLIA [id number] [address] [place] [address] [facility] Hemoglobin (Bld) [Mass/Vol] 12.7 g/dL Normal 11.5-15.5 [facility] Comment on above: Order Comment: Speci men Type: BLOOD SPECIMEN Performed By: #### 5 8410-2 #### [facility] CLIA [id number] [address] [place] [address] [facility] IMMATURE GRAN % 0.4 % Normal [facility] Comment on above: Order Comment: Speci men Type: BLOOD SPECIMEN Performed By: #### 5 8410-2 #### [facility] CLIA [id number] [address] [place] [address] [facility] IMMATURE GRAN ABS 0.04 k/uL Normal <0.10 [facility] Comment on above: Order Comment: Speci men Type: BLOOD SPECIMEN Performed By: #### 5 8410-2 #### [facility] CLIA [id number] [address] [place] [address] [facility] [place] Lymphocytes (Bld) [#/Vol] 1.73 10*3/uL Normal 1.00-4.00 [facility] Comment on above: Order Comment: Speci men Type: BLOOD SPECIMEN Performed By: #### 5 8410-2 #### [facility] CLIA [id number] [address] [place] [address] [facility] Lymphocytes/100 WBC (Bld) 16.3 % Normal [facility] Comment on above: Order Comment: Speci men Type: BLOOD SPECIMEN Performed By: #### 5 8410-2 #### [facility] CLIA [id number] [address] [place] [address] [facility] MCH (RBC) [Entitic mass] 31.2 pg Normal 26.0-34.0 [facility] Comment on above: Order Comment: Speci men Type: BLOOD SPECIMEN Performed By: #### 5 8410-2 #### [facility] CLIA [id number] [address] [place] [address] [facility] MCHC (RBC) [Mass/Vol] 34.7 g/dL Normal 30.5-36.0 [facility] Comment on above: Order Comment: Speci men Type: BLOOD SPECIMEN Performed By: #### 5 8410-2 #### [facility] CLIA [id number] [address] [place] [address] [facility] MCV (RBC) [Entitic vol] 89.9 fL Normal 80.0-100.0 [facility] Comment on above: Order Comment: Speci men Type: BLOOD SPECIMEN Performed By: #### 5 8410-2 #### [facility] CLIA [id number] [address] [place] [address] [facility] Monocytes (Bld) [#/Vol] 0.78 10*3/uL Normal <0.87 [facility] Comment on above: Order Comment: Speci men Type: BLOOD SPECIMEN Performed By: #### 5 8410-2 #### [facility] CLIA [id number] [address] [place] [address] [facility] Monocytes/100 WBC (Bld) 7.3 % Normal [facility] Comment on above: Order Comment: Speci men Type: BLOOD SPECIMEN Performed By: #### 5 8410-2 #### [facility] CLIA [id number] [address] [place] [address] [place] Neutrophils (Bld) [#/Vol] 8.05 10*3/uL High 1.45-7.50 [facility] Comment on above: Order Comment: Speci men Type: BLOOD SPECIMEN Performed By: #### 5 8410-2 #### [facility] CLIA [id number] [address] [place] [address] [facility] [place] Neutrophils/100 WBC (Bld) 75.6 % Normal [facility] Comment on above: Order Comment: Speci men Type: BLOOD SPECIMEN Performed By: #### 5 8410-2 #### [facility] CLIA [id number] [address] [place] [address] [place] Nucleated RBC (Bld) [#/Vol] 10*3/uL Normal <0.01 [facility] Comment on above: Order Comment: Speci men Type: BLOOD SPECIMEN Performed By: #### 5 8410-2 #### [facility] CLIA [id number] [address] [place] [address] [place] Nucleated RBC/100 WBC (Bld) [Ratio] 0.0 /100 WBC Normal 0.0 [facility] Comment on above: Order Comment: Speci men Type: BLOOD SPECIMEN Performed By: #### 5 8410-2 #### [facility] CLIA [id number] [address] [place] [address] [facility] [place] Platelet mean volume (Bld) [Entitic vol] 10.2 fL Normal 9.0-12.7 [facility] Comment on above: Order Comment: Speci men Type: BLOOD SPECIMEN Performed By: #### 5 8410-2 #### [facility] CLIA [id number] [address] [place] [address] [place] Platelets (Bld) [#/Vol] 207 10*3/uL Normal 150-400 [facility] Comment on above: Order Comment: Speci men Type: BLOOD SPECIMEN Performed By: #### 5 8410-2 #### [facility] CLIA [id number] [address] [place] [address] [facility] RBC (Bld) [#/Vol] 4.07 10*6/uL Normal 3.90-5.20 [facility] Comment on above: Order Comment: Speci men Type: BLOOD SPECIMEN Performed By: #### 5 8410-2 #### [facility] CLIA [id number] [address] [place] [address] [facility] WBC (Bld) [#/Vol] 10.64 10*3/uL Normal 3.70-11.00 [facility] Comment on above: Order Comment: Speci men Type: BLOOD SPECIMEN Performed By: #### 5 8410-2 #### [facility] CLIA [id number] [address] [place] [address] [facility] CONSULTon 03-10-2020 CONSULT HNO ID: [id number] Author: Ortega Seay Service: Infectious Disease Author Type: Physician Type: Consults Filed: 03/12/2020 10:37 AM Note Text: [facility] - Consultation PATIENT NAME: LISA SHIRLEY CSN: [id number] DATE OF : 1945 SEX/AGE: F/74 PATIENT TYPE: I HOSP SVC: INTM LOCATION: [id number] DATE OF SERVICE: 03/10/2020 TIME OF SERVICE: 10:10 AM REFERRING PHYSICIAN: ASHLEIGH THURSTON REASON FOR CONSULTATION: Fever, leukocytosis, COVID-19 infection, antibiotic management. HISTORY OF PRESENT ILLNESS: This patient is a 74-year-old woman with multiple medical problems including diabetes mellitus type 2, obesity, irritable bowel syndrome, previous stroke. She is confused and the history is obtained from reviewing the chart. She apparently presented to [facility] with an acute right MCA stroke. She was found down at home and police did a welfare check and found her down on the ground at home. She is noted to have left ankle bruising and swelling. In the ER at [place], she had a CT of the head [...] was transferred to the Neuro ICU at [facility]. Her initial white blood cell count was [...] closely with you. Ortega Seay MD, MS, [facility], [facility] Infectious Disease RRW:modl /[id number] Normal [facility] CONSULT HNO ID: [id number] Author: Ortega Seay Service: Infectious Disease Author Type: Physician Type: Consults Filed: 03/10/2020 10:21 AM Note Text: 10:20 AM Consult dictated #[id number] Start remdesivir and decadron for hypoxia and COVID-19. Monitor LFTs and renal function daily. Normal [facility] CT BRAIN WO IVCONon 03-10-20 CT BRAIN WO IVCON Final Report DATE OF EXAM: Mar 10 2020 5:09AM [facility] [id number] - CT BRAIN WO IVCON / [...] MRI brain 03/09/2020. CT brain 03/08/2020. RESULT: Computer Operations Specialist (topogram) images: Unremarkable. Post-operative change: None. Acute [...] ischemic changes of the supratentorial white matter. Director Of Archives: TENISHA Transcribe Date/Time: Mar 10 2020 11:17A Dictated by : GEO CONTEH MD This examination was interpreted and the report reviewed and electronically signed by: GEO CONTEH MD on Mar 10 2020 11:23AM EST Normal [facility] HEPATIC FUNCTION PNLon 03-10 Albumin [Mass/Vol] 3.3 g/dL Low 3.9-4.9 [facility] Comment on above: Order Comment: Speci men Type: BLOOD SPECIMEN Performed By: #### 2 4321-2 #### [facility] CLIA [id number] [address] [place] [address] ALP [Catalytic activity/Vol] 64 U/L Normal 34-123 [facility] Comment on above: Order Comment: Speci men Type: BLOOD SPECIMEN Performed By: #### 2 4321-2 #### [facility] CLIA [id number] [address] [place] [address] ALT With P-5'-P [Catalytic activity/Vol] 21 U/L Normal 7-38 [facility] Comment on above: Order Comment: Speci men Type: BLOOD SPECIMEN Performed By: #### 2 4321-2 #### [facility] CLIA [id number] [address] [place] [address] AST With P-5'-P [Catalytic activity/Vol] 25 U/L Normal 13-35 [facility] Comment on above: Order Comment: Speci men Type: BLOOD SPECIMEN Performed By: #### 2 4321-2 #### [facility] CLIA [id number] [address] [place] [address] Bilirubin [Mass/Vol] 0.4 mg/dL Normal 0.2-1.3 [facility] Comment on above: Order Comment: Speci men Type: BLOOD SPECIMEN Performed By: #### 2 4321-2 #### [facility] CLIA [id number] [address] [place] [address] Bilirubin.conjugated [Mass/Vol] mg/dL Normal <0.2 [facility] Comment on above: Order Comment: Speci men Type: BLOOD SPECIMEN Performed By: #### 2 4321-2 #### [facility] CLIA [id number] [address] [place] [address] Protein [Mass/Vol] 6.6 g/dL Normal 6.3-8.0 [facility] Comment on above: Order Comment: Speci men Type: BLOOD SPECIMEN Performed By: #### 2 4321-2 #### [facility] CLIA [id number] [address] [place] [address] NURSING PROGon 03-10-2020 NURSING PROG HNO ID: [id number] Author: Elda (Rn) JONNY Isaac Service: Nursing Author Type: Registered Nurse Type: Nursing Progress Note Filed: 03/10/2020 2:07 PM Note Text: Nursing Progress: Topic: RESTRAINT NON-VIOLENT PATIENT NAME: Lisa Shirley PATIENT LOCATION: [place] [id number]* The patient demonstrates Attempting to Remove Medical [...] TIME: 2:06 PM Elda Isaac RN Normal [facility] NURSING PROG HNO ID: [id number] Author: Kathryn Tovar) JONNY Rose Service: Nursing Author Type: Registered Nurse Type: Nursing Progress Note Filed: 03/10/2020 11:59 AM Note Text: Patient transferred to [facility]. RN called report to 9[address] JONNY Vega. RN called patient's son, Osmany and updated on status and transfer to [facility]. Informed him there are no visitors allowed on that floor. All belongings taken with patient. Blood work obtained prior to transfer. Bedside hand off with 9100 RN completed. myriam barraza Normal [facility] NURSING PROG HNO ID: [id number] Author: Kathryn Tovar) JONNY Rose Service: Nursing Author Type: Registered Nurse Type: Nursing Progress Note Filed: 03/10/2020 11:54 AM Note Text: Patient has positive and negative covid results in the computer. According to farm assistant report patient was to stay in NSICU. RN questioning need for isolation. Patient was not in isolation upon start of shift. Per nsicu resident okay to place in isolation. -placed in contact/droplet isolation. RN called lab to clarify covid status. Per lab recommends consulting infectious disease to assess. RN updated Dr. Lira and order for ID consult placed. Myriam barraza [facility] PLAN OF CAREon 03-10-2020 PLAN OF CARE HNO ID: [id number] Author: Brittnee Lima Service: Neurology General Author [...] to follow. Please call with any concerns Normal [facility] PROGRESSon 03-10-2020 PROGRESS HNO ID: [id number] Author: Leland Herrera Service: Orthopaedic Surgery Author [...] ?F) Resp 21 Ht 167.6 cm (5' 6) Wt 107.7 kg (237 lb 7 oz) [...] MD Orthopaedic Surgery March 10, 2020 Normal [facility] PT Pnl PPPon 03-10-2020 INR Coag (PPP) [Relative time] 1.0 {INR} Normal 0.9-1.3 [facility] Comment on above: Order Comment: Speci men Type: BLOOD SPECIMEN Result Comment: Francia min K Antagonist (VKA) Therapeutic Range: INR 2 to 3 (Target INR of 2.5) Note: For patients treated with VKA drugs, such as warfarin, the [place] College of Chest Physicians 2012 Guideline recommends [...] Chest 2012, 141:7S-47S Caro RA, et al. [facility] 2017, 70: 252-289 Performed By: #### 2 4321-2 #### [facility] CLIA [id number] [address] [place] [address] PT Coag (PPP) [Time] 10.5 s Normal 9.7-13.0 [facility] Comment on above: Order Comment: Speci men Type: BLOOD SPECIMEN Performed By: #### 2 4321-2 #### [facility] CLIA [id number] [address] [place] [address] THERAPY NTon 03-10-2020 THERAPY NT HNO ID: [id number] Author: Osmar (Ccc-Chip Separator) ALEYDA Calloway/DYEING MACHINE FEEDER Service: Speech/Swallow Author Type: Speech Language Pathologist Type: Therapy (PT/OT/Speech/Resp) Filed: 03/10/2020 3:25 PM Note Text: Speech Therapy Treatment SERVICE DATE: 03/10/2020 SERVICE TIME: 1415 to 1435 ROOM: [place] [address] IMPRESSION: Patient demonstrates oropharyngeal dysphagia which is [...] tolerance;Motivated Current Hospital Course[facility] Reason for Hospital Admission: [...] 0, Mildly Thick Liquids IDDSI Level 2 ([place] Thick) Patient with decreased alertness today Unable [...] following cerebral infarction Interventions Provided: Dysphagia Therapy (74168);Speech Therapy (30282) $ Dysphagia Therapy (26822) Billed Units: 1 unit $ Speech Therapy (33243) Billed Units: 1 unit Training and education provided in: Swallowing Strategies, Dysphagia Management, Motor Speech Skills(Left sided awareness) The following therapeutic skills were used:: Verbal cuing, Visual cuing, Tactile cuing, Repetitive task learning, Education on role of discipline / importance of activity Total Treatment Time (minutes): 220 Home Environment Prior Functional Level: Within Functional Limits Assistance Available: multimedia artist Prior Swallowing Function/Diet Textures: Regular Consistency;Thin Liquids IDDSI Level 0 Please see discipline specific clinical documentation flowsheet for complete details for this therapy evaluation/treatment. SIGNATURE: Osmar Calloway CCC-DYEING MACHINE FEEDER PATIENT NAME: Lisa Shirley DATE: March 10, 2020 TIME: 3:17 PM [facility] XR CHEST 1V FRONTALon 2019 XR CHEST [...] enteric tube with tip terminating off the [id number] below the diaphragm. Lungs and pleura: No consolidation. No pneumothorax. No pleural effusion. Cardiomediastinal silhouette: Stable cardiomediastinal silhouette. Cardiomegaly. IMPRESSION: No acute findings. Director Of Archives: TENISHA Transcribe Date/Time: Mar 10 2020 7:13P Dictated by : TAHMINA WOOD MD This examination was interpreted and the report reviewed and electronically signed by: TAHMINA WOOD MD on Mar 10 2020 7:15PM EST [facility] ALLIED HEALTHon 03-09-2020 ALLIED HEALTH HNO ID: [id number] Author: Jade Hoover (Rt) Service: Radiology Author Type: Side Splitter Type: [facility] Filed: 03/09/2020 9:08 PM [...] RT RIMA March 09, 2020 9:07 PM [facility] HNO ID: [id number] Author: Jade Jones (Rt) Service: Radiology Author Type: Side Splitter Type: [facility] Filed: 03/09/2020 2:28 PM Note Text: [...] RT Robert March 09, 2020 2:28 PM [facility] HNO ID: [id number] Author: Chalino Jean-BaptisteRtJade Muñoz Service: Radiology Author Type: Side Splitter Type: [facility] Filed: 03/09/2020 6:38 AM Note Text: Called for MRI screening form. [facility] HNO ID: [id number] Author: Jade Wall (Rt) Service: Radiology Author Type: Side Splitter Type: [facility] Filed: 03/09/2020 4:59 AM Note Text: [...] RT Ranjan March 09, 2020 4:57 AM [facility] ALLIED [facility] HNO ID: [id number] Author: Jade Woodruff (Rt) Service: Radiology Author Type: Side Splitter Type: [facility] Filed: 03/09/2020 1:06 AM Note Text: [...] RT Ranjan March 09, 2020 1:06 AM [facility] HNO ID: [id number] Author: Jade Woodruff (Rt) Service: Radiology Author Type: Side Splitter Type: [facility] Filed: 03/08/2020 11:46 PM [...] RT Ranjan March 08, 2020 11:46 PM Normal [facility] ALLIED HEALTH HNO ID: [id number] Author: Lianne (Rt) Jade Ansari Service: Radiology Author Type: Side Splitter Type: Allied Health Filed: 03/08/2020 10:34 PM Note Text: [...] RT Minnie March 08, 2020 10:30 PM Normal [facility] Bacteria Bld Culton 03-09-20 20 Bacteria identified Cx Nom (Bld) CULTURE, BLOOD: No growth 5 days Normal [facility] Comment on above: Performed By: #### 5 8410-2 #### [facility] CLIA [id number] [address] [place] [address] [place] Bacteria identified Cx Nom (Bld) CULTURE, BLOOD: No growth 5 days Normal [facility] Comment on above: Performed By: #### 5 8410-2 #### [facility] CLIA [id number] [address] [place] [address] [place] Bacteria Ur Culton 0 Bacteria identified Cx Nom (U) CULTURE, URINE: 1,000-<5,000 CFU/mL Normal urogenital keisha Normal [facility] Comment on above: Performed By: #### 5 8410-2 #### [facility] CLIA [id number] [address] [place] [address] [place] Bas Metab 2000 Pnl SerPlon 1 05-09-2019 Anion gap [Moles/Vol] 11 mmol/L Normal 9-18 [facility] Comment on above: Order Comment: Speci men Type: BLOOD SPECIMEN Performed By: #### 5 8410-2 #### [facility] CLIA [id number] [address] [place] [address] Calcium [Mass/Vol] 8.9 mg/dL Normal 8.5-10.2 [facility] Comment on above: Order Comment: Speci men Type: BLOOD SPECIMEN Performed By: #### 5 8410-2 #### [facility] CLIA [id number] [address] [place] [address] Chloride [Moles/Vol] 104 mmol/L Normal 97-105 [facility] Comment on above: Order Comment: Speci men Type: BLOOD SPECIMEN Performed By: #### 5 8410-2 #### [facility] CLIA [id number] [address] [place] [address] CO2 [Moles/Vol] 23 mmol/L Normal 22-30 [facility] Comment on above: Order Comment: Speci men Type: BLOOD SPECIMEN Performed By: #### 5 8410-2 #### [facility] CLIA [id number] [address] [place] [address] Creatinine [Mass/Vol] 1.10 mg/dL High 0.58-0.96 [facility] Comment on above: Order Comment: Speci men Type: BLOOD SPECIMEN Performed By: #### 5 8410-2 #### [facility] CLIA [id number] [address] [place] [address] GFR/1.73 sq M.predicted MDRD (S/P/Bld) [Vol rate/Area] 59 mL/min/{1.73_m2} Normal [facility] Comment on above: Order Comment: Speci men [...] GFR. Performed By: #### 5 8410-2 #### [facility] CLIA [id number] [address] [place] [address] Glucose [Mass/Vol] 175 mg/dL High 74-99 [facility] Comment on above: Order Comment: Speci [facility] Type: BLOOD SPECIMEN Result Comment: The [place] Diabetes Association (ADA) provides guidance for cutoff [...] Standards of Medical Care in Diabetes 2016, [place] Diabetes Association. Diabetes Care. 2016.39(Suppl 1). Performed By: #### 5 8410-2 #### [facility] CLIA [id number] [address] [place] [address] Potassium [Moles/Vol] 3.6 mmol/L Low 3.7-5.1 [facility] Comment on above: Order Comment: Speci [facility] Type: BLOOD SPECIMEN Performed By: #### 5 8410-2 #### [facility] CLIA [id number] [address] [place] [address] Sodium [Moles/Vol] 138 mmol/L Normal 136-144 [facility] Comment on above: Order Comment: Speci men Type: BLOOD SPECIMEN Performed By: #### 5 8410-2 #### [facility] CLIA [id number] [address] [place] [address] Urea nitrogen [Mass/Vol] 24 mg/dL High 7-21 [facility] Comment on above: Order Comment: Speci men Type: BLOOD SPECIMEN Performed By: #### 5 8410-2 #### [facility] CLIA [id number] [address] [place] [address] Anion gap [Moles/Vol] 11 mmol/L Normal 9-18 [facility] Comment on above: Order Comment: Speci men Type: BLOOD SPECIMEN Performed By: #### 2 4321-2 #### [facility] CLIA [id number] [address] [place] [address] Calcium [Mass/Vol] 9.3 mg/dL Normal 8.5-10.2 [facility] Comment on above: Order Comment: Speci men Type: BLOOD SPECIMEN Performed By: #### 2 4321-2 #### [facility] CLIA [id number] [address] [place] [address] Chloride [Moles/Vol] 105 mmol/L Normal 97-105 [facility] Comment on above: Order Comment: Speci men Type: BLOOD SPECIMEN Performed By: #### 2 4321-2 #### [facility] CLIA [id number] [address] [place] [address] CO2 [Moles/Vol] 22 mmol/L Normal 22-30 [facility] Comment on above: Order Comment: Speci men Type: BLOOD SPECIMEN Performed By: #### 2 4321-2 #### [facility] CLIA [id number] [address] [place] [address] Creatinine [Mass/Vol] 1.07 mg/dL High 0.58-0.96 [facility] Comment on above: Order Comment: Speci men Type: BLOOD SPECIMEN Performed By: #### 2 4321-2 #### [facility] CLIA [id number] [address] [place] [address] GFR/1.73 sq M.predicted MDRD (S/P/Bld) [Vol rate/Area] mL/min/{1.73_m2} Normal [facility] Comment on above: Order Comment: Speci men [...] GFR. Performed By: #### 2 4321-2 #### [facility] CLIA [id number] [address] [place] [address] Glucose [Mass/Vol] 180 mg/dL High 74-99 [facility] Comment on above: Order Comment: Speci men Type: BLOOD SPECIMEN Result Comment: The [place] Diabetes Association (ADA) provides guidance for cutoff [...] Standards of Medical Care in Diabetes 2016, [place] Diabetes Association. Diabetes Care. 2016.39(Suppl 1). Performed By: #### 2 4321-2 #### [facility] CLIA [id number] [address] [place] [address] Potassium [Moles/Vol] 3.4 mmol/L Low 3.5-5.0 [facility] Comment on above: Order Comment: Speci men Type: BLOOD SPECIMEN Performed By: #### 2 4321-2 #### [facility] CLIA [id number] [address] [place] [address] Order Comment: Speci men Type: VENOUS BLOOD SPECIMEN Performed By: #### 2 4344-4 ####[facility] [id number] [place] [address] Sodium [Moles/Vol] 138 mmol/L Normal 136-144 [facility] Comment on above: Order Comment: Speci men Type: BLOOD SPECIMEN Performed By: #### 2 4321-2 #### [facility] CLIA [id number] [address] [place] [address] Urea nitrogen [Mass/Vol] 24 mg/dL High 7-21 [facility] Comment on above: Order Comment: Speci men Type: BLOOD SPECIMEN Performed By: #### 2 4321-2 #### [facility] CLIA [id number] [address] [place] [address] Anion gap [Moles/Vol] 14 mmol/L Normal 9-18 [facility] Comment on above: Order Comment: Speci men Type: BLOOD SPECIMEN Performed By: #### C ONMITCHELL #### [facility] CLIA [id number] Calcium [Mass/Vol] 9.1 mg/dL Normal 8.5-10.2 [facility] Comment on above: Order Comment: Speci men Type: BLOOD SPECIMEN Performed By: #### C ONO #### [facility] CLIA [id number] Chloride [Moles/Vol] 105 mmol/L Normal 97-105 [facility] Comment on above: Order Comment: Speci men Type: BLOOD SPECIMEN Performed By: #### C ONO #### [facility] [facility] CLIA [id number] CO2 [Moles/Vol] 23 mmol/L Normal 22-30 [facility] Comment on above: Order Comment: Speci men Type: BLOOD SPECIMEN Performed By: #### C ONO #### [facility] CLIA [id number] Creatinine [Mass/Vol] 1.13 mg/dL High 0.58-0.96 [facility] Comment on above: Order Comment: Speci men Type: BLOOD SPECIMEN Performed By: #### C ONABO #### [facility] CLIA [id number] GFR/1.73 sq M.predicted MDRD (S/P/Bld) [Vol rate/Area] 57 mL/min/{1.73_m2} Normal [facility] Comment on above: Order Comment: Speci men [...] GFR. Performed By: #### C ONABO #### [facility] CLIA [id number] Glucose [Mass/Vol] 154 mg/dL High 74-99 [facility] Comment on above: Order Comment: Specdonna men Type: BLOOD SPECIMEN Result Comment: The [place] Diabetes Association (ADA) provides guidance for cutoff [...] Standards of Medical Care in Diabetes 2016, [place] Diabetes Association. Diabetes Care. 2016.39(Suppl 1). Performed By: #### C ONABO #### [facility] CLIA [id number] Potassium [Moles/Vol] 3.4 mmol/L Low 3.7-5.1 [facility] Comment on above: Order Comment: Speci men Type: BLOOD SPECIMEN Performed By: #### C ONABO #### [facility] CLIA [id number] Sodium [Moles/Vol] 142 mmol/L Normal 136-144 [facility] Comment on above: Order Comment: Speci men Type: BLOOD SPECIMEN Performed By: #### C ONABO #### [facility] CLIA [id number] Urea nitrogen [Mass/Vol] 25 mg/dL High 7-21 [facility] Comment on above: Order Comment: Speci men Type: BLOOD SPECIMEN Performed By: #### C ONABO #### [facility] CLIA [id number] Anion gap [Moles/Vol] 16 mmol/L Normal 9-18 [facility] Comment on above: Order Comment: Speci men Type: BLOOD SPECIMEN Performed By: #### 2 4321-2 #### [facility] CLIA [id number] [address] [place] [address] Chloride [Moles/Vol] 103 mmol/L Normal 97-105 [facility] Comment on above: Order Comment: Speci men Type: BLOOD SPECIMEN Performed By: #### 2 4321-2 #### [facility] CLIA [id number] [address] [place] [address] Creatinine [Mass/Vol] 1.18 mg/dL High 0.58-0.96 [facility] Comment on above: Order Comment: Speci men Type: BLOOD SPECIMEN Performed By: #### 2 4321-2 #### [facility] CLIA [id number] [address] [place] [address] GFR/1.73 sq M.predicted MDRD (S/P/Bld) [Vol rate/Area] 55 mL/min/{1.73_m2} Normal [facility] Comment on above: Order Comment: Speci men [...] GFR. Performed By: #### 2 4321-2 #### [facility] CLIA [id number] [address] [place] [address] Result Comment: 45 eGFR (Estimated GFR) Units [...] GFR. Glucose [Mass/Vol] 398 mg/dL High 74-99 [facility] Comment on above: Order Comment: Speci men Type: BLOOD SPECIMEN Result Comment: The [place] Diabetes Association (ADA) provides guidance for cutoff [...] Standards of Medical Care in Diabetes 2016, [place] Diabetes Association. Diabetes Care. 2016.39(Suppl 1). Performed By: #### 2 4321-2 #### [facility] CLIA [id number] [address] [place] [address] Sodium [Moles/Vol] 139 mmol/L Normal 136-144 [facility] Comment on above: Order Comment: Speci men Type: BLOOD SPECIMEN Performed By: #### 2 4321-2 #### [facility] CLIA [id number] [address] [place] [address] Urea nitrogen [Mass/Vol] 25 mg/dL High 7-21 [facility] Comment on above: Order Comment: Speci men Type: BLOOD SPECIMEN Performed By: #### 2 4321-2 #### [facility] CLIA [id number] [address] [place] [address] CALCIUM IONIZED Bon 03-09-20 20 Calcium.ionized (BldV) [Mass/Vol] 1.17 mmol/L Normal 1.08-1.30 [facility] Comment on above: Order Comment: Speci men Type: BLOOD SPECIMEN Performed By: #### 5 8410-2 #### [facility] CLIA [id number] [address] [place] [address] Calcium.ionized adjusted to pH 7.4 (Bld) [Moles/Vol] 1.17 mmol/L Normal 1.08-1.30 [facility] Comment on above: Order Comment: Speci men Type: BLOOD SPECIMEN Performed By: #### 5 8410-2 #### [facility] CLIA [id number] [address] [place] [address] CBC W Auto Diff Bldon 2019 Basophils (Bld) [#/Vol] 0.04 10*3/uL Normal <0.11 [facility] Comment on above: Order Comment: Speci men Type: BLOOD SPECIMEN Performed By: #### 5 7021-8 ####[facility] [id number] [place] [address] Basophils/100 WBC (Bld) 0.3 % Normal [facility] Comment on above: Order Comment: Speci men Type: BLOOD SPECIMEN Performed By: #### 5 7021-8 ####[facility] [id number] [place] [address] Differential cell count method Nom (Bld) Auto Normal [facility] Comment on above: Order Comment: Speci men Type: BLOOD SPECIMEN Performed By: #### 5 7021-8 ####[facility] [id number] [place] [address] Eosinophils (Bld) [#/Vol] 10*3/uL Normal <0.46 [facility] Comment on above: Order Comment: Speci men Type: BLOOD SPECIMEN Performed By: #### 5 7021-8 ####[facility] [id number] [place] [address] Eosinophils/100 WBC (Bld) 0.0 % Normal [facility] Comment on above: Order Comment: Speci men Type: BLOOD SPECIMEN Performed By: #### 5 7021-8 ####[facility]ORYCLIA [id number] [place] [address] Erythrocyte distribution width (RBC) [Ratio] 12.9 % Normal 11.5-15.0 [facility] Comment on above: Order Comment: Speci men Type: BLOOD SPECIMEN Performed By: #### 5 7021-8 ####[facility] [id number] [place] [address] Hematocrit (Bld) [Volume fraction] 39.0 % Normal 36.0-46.0 [facility] Comment on above: Order Comment: Speci men Type: BLOOD SPECIMEN Performed By: #### 5 7021-8 ####[facility] [id number] [place] [address] Hemoglobin (Bld) [Mass/Vol] 12.8 g/dL Normal 11.5-15.5 [facility] Comment on above: Order Comment: Speci men Type: BLOOD SPECIMEN Performed By: #### 5 7021-8 ####[facility]ORYCLIA [id number] [place] [address] IMMATURE GRAN % 0.6 % Normal [facility] Comment on above: Order Comment: Speci men Type: BLOOD SPECIMEN Performed By: #### 5 7021-8 ####[facility] LAB[facility]ORYCLIA [id number] [place] [address] IMMATURE GRAN ABS 0.09 k/uL Normal <0.10 [facility] Comment on above: Order Comment: Speci men Type: BLOOD SPECIMEN Performed By: #### 5 7021-8 ####[facility]ORYCLIA [id number] [place] [address] Lymphocytes (Bld) [#/Vol] 1.65 10*3/uL Normal 1.00-4.00 [facility] Comment on above: Order Comment: Speci men Type: BLOOD SPECIMEN Performed By: #### 5 7021-8 ####[facility]ORYCLIA [id number] [place] [address] Lymphocytes/100 WBC (Bld) 11.4 % Normal [facility] Comment on above: Order Comment: Speci men Type: BLOOD SPECIMEN Performed By: #### 5 7021-8 ####[facility] LAB[facility]ORYCLIA [id number] [place] [address] MCH (RBC) [Entitic mass] 30.5 pg Normal 26.0-34.0 [facility] Comment on above: Order Comment: Speci men Type: BLOOD SPECIMEN Performed By: #### 5 7021-8 ####[facility] LAB[facility]ATORYCLIA [id number] [place] [address] MCHC (RBC) [Mass/Vol] 32.8 g/dL Normal 30.5-36.0 [facility] Comment on above: Order Comment: Speci men Type: BLOOD SPECIMEN Performed By: #### 5 7021-8 ####[facility] LAB[facility]ORYCLIA [id number] [place] [address] MCV (RBC) [Entitic vol] 92.9 fL Normal 80.0-100.0 [facility] Comment on above: Order Comment: Speci men Type: BLOOD SPECIMEN Performed By: #### 5 7021-8 ####[facility]ORYCLIA [id number] [place] [address] Monocytes (Bld) [#/Vol] 1.68 10*3/uL High <0.87 [facility] Comment on above: Order Comment: Speci men Type: BLOOD SPECIMEN Performed By: #### 5 7021-8 ####[facility]ORYCLIA [id number] [place] [address] Monocytes/100 WBC (Bld) 11.6 % Normal [facility] Comment on above: Order Comment: Speci men Type: BLOOD SPECIMEN Performed By: #### 5 7021-8 ####[facility]ORYCLIA [id number] [place] [address] Neutrophils (Bld) [#/Vol] 11.04 10*3/uL High 1.45-7.50 [facility] Comment on above: Order Comment: Speci men Type: BLOOD SPECIMEN Performed By: #### 5 7021-8 ####[facility]ORYCLIA [id number] [place] [address] Neutrophils/100 WBC (Bld) 76.1 % Normal [facility] Comment on above: Order Comment: Speci men Type: BLOOD SPECIMEN Performed By: #### 5 7021-8 ####[facility]ORYCLIA [id number] [place] [address] Nucleated RBC (Bld) [#/Vol] 10*3/uL Normal <0.01 [facility] Comment on above: Order Comment: Speci men Type: BLOOD SPECIMEN Performed By: #### 5 7021-8 ####[facility]ORYCLIA [id number] [place] [address] Nucleated RBC/100 WBC (Bld) [Ratio] 0.0 /100 WBC Normal 0.0 [facility] Comment on above: Order Comment: Speci men Type: BLOOD SPECIMEN Performed By: #### 5 7021-8 ####[facility]ORYCLIA [id number] [place] [address] Platelet mean volume (Bld) [Entitic vol] 10.3 fL Normal 9.0-12.7 [facility] Comment on above: Order Comment: Speci men Type: BLOOD SPECIMEN Performed By: #### 5 7021-8 ####[facility] LABORATORYCLIA [id number] [place] [address] Platelets (Bld) [#/Vol] 249 10*3/uL Normal 150-400 [facility] Comment on above: Order Comment: Speci men Type: BLOOD SPECIMEN Performed By: #### 5 7021-8 ####[facility] LAB[facility]ATORYCLIA [id number] [place] [address] RBC (Bld) [#/Vol] 4.20 10*6/uL Normal 3.90-5.20 [facility] Comment on above: Order Comment: Speci men Type: BLOOD SPECIMEN Performed By: #### 5 7021-8 ####[facility] LABORATORYCLIA [id number] [place] [address] WBC (Bld) [#/Vol] 14.50 10*3/uL High 3.70-11.00 [facility] Comment on above: Order Comment: Speci men Type: BLOOD SPECIMEN Performed By: #### 5 7021-8 ####[facility] LABORATORYCLIA [id number] [place] [address] Basophils (Bld) [#/Vol] 0.03 10*3/uL Normal <0.11 [facility] Comment on above: Order Comment: Speci men Type: BLOOD SPECIMEN Performed By: #### 5 8410-2 #### [facility] CLIA [id number] [address] [place] [address] [place] Basophils/100 WBC (Bld) 0.2 % Normal [facility] Comment on above: Order Comment: Speci men Type: BLOOD SPECIMEN Performed By: #### 5 8410-2 #### [facility] CLIA [id number] [address] [place] [address] [place] Differential cell count method Nom (Bld) Auto Normal [facility] Comment on above: Order Comment: Speci men Type: BLOOD SPECIMEN Performed By: #### 5 8410-2 #### [facility] CLIA [id number] [address] [place] [address] [place] Eosinophils (Bld) [#/Vol] 10*3/uL Normal <0.46 [facility] Comment on above: Order Comment: Speci men Type: BLOOD SPECIMEN Performed By: #### 5 8410-2 #### [facility] CLIA [id number] [address] [place] [address] [place] Eosinophils/100 WBC (Bld) 0.0 % Normal [facility] Comment on above: Order Comment: Speci men Type: BLOOD SPECIMEN Performed By: #### 5 8410-2 #### [facility] CLIA [id number] [address] [place] [address] [place] Erythrocyte distribution width (RBC) [Ratio] 13.1 % Normal 11.5-15.0 [facility] Comment on above: Order Comment: Speci men Type: BLOOD SPECIMEN Performed By: #### 5 8410-2 #### [facility] CLIA [id number] [address] [place] [address] [place] Hematocrit (Bld) [Volume fraction] 41.3 % Normal 36.0-46.0 [facility] Comment on above: Order Comment: Speci men Type: BLOOD SPECIMEN Performed By: #### 5 8410-2 #### [facility] CLIA [id number] [address] [place] [address] [place] Hemoglobin (Bld) [Mass/Vol] 13.9 g/dL Normal 11.5-15.5 [facility] Comment on above: Order Comment: Speci men Type: BLOOD SPECIMEN Performed By: #### 5 8410-2 #### [facility] CLIA [id number] [address] [place] [address] [place] IMMATURE GRAN % 0.5 % Normal [facility] Comment on above: Order Comment: Speci men Type: BLOOD SPECIMEN Performed By: #### 5 8410-2 #### [facility] CLIA [id number] [address] [place] [address] [facility] IMMATURE GRAN ABS 0.08 k/uL Normal <0.10 [facility] Comment on above: Order Comment: Speci men Type: BLOOD SPECIMEN Performed By: #### 5 8410-2 #### [facility] CLIA [id number] [address] [place] [address] [facility] Lymphocytes (Bld) [#/Vol] 1.25 10*3/uL Normal 1.00-4.00 [facility] Comment on above: Order Comment: Speci men Type: BLOOD SPECIMEN Performed By: #### 5 8410-2 #### [facility] CLIA [id number] [address] [place] [address] [facility] Lymphocytes/100 WBC (Bld) 8.5 % Normal [facility] Comment on above: Order Comment: Speci men Type: BLOOD SPECIMEN Performed By: #### 5 8410-2 #### [facility] CLIA [id number] [address] [place] [address] [facility] MCH (RBC) [Entitic mass] 30.8 pg Normal 26.0-34.0 [facility] Comment on above: Order Comment: Speci men Type: BLOOD SPECIMEN Performed By: #### 5 8410-2 #### [facility] CLIA [id number] [address] [place] [address] [facility] MCHC (RBC) [Mass/Vol] 33.7 g/dL Normal 30.5-36.0 [facility] Comment on above: Order Comment: Speci men Type: BLOOD SPECIMEN Performed By: #### 5 8410-2 #### [facility] CLIA [id number] [address] [place] [address] [facility] [place] MCV (RBC) [Entitic vol] 91.4 fL Normal 80.0-100.0 [facility] Comment on above: Order Comment: Speci men Type: BLOOD SPECIMEN Performed By: #### 5 8410-2 #### [facility] CLIA [id number] [address] [place] [address] [place] Monocytes (Bld) [#/Vol] 1.42 10*3/uL High <0.87 [facility] Comment on above: Order Comment: Speci men Type: BLOOD SPECIMEN Performed By: #### 5 8410-2 #### [facility] CLIA [id number] [address] [place] [address] [place] Monocytes/100 WBC (Bld) 9.7 % Normal [facility] Comment on above: Order Comment: Speci men Type: BLOOD SPECIMEN Performed By: #### 5 8410-2 #### [facility] CLIA [id number] [address] [place] [address] [place] Neutrophils (Bld) [#/Vol] 11.93 10*3/uL High 1.45-7.50 [facility] Comment on above: Order Comment: Speci men Type: BLOOD SPECIMEN Performed By: #### 5 8410-2 #### [facility] CLIA [id number] [address] [place] [address] [place] Neutrophils/100 WBC (Bld) 81.1 % Normal [facility] Comment on above: Order Comment: Speci men Type: BLOOD SPECIMEN Performed By: #### 5 8410-2 #### [facility] CLIA [id number] [address] [place] [address] [place] Nucleated RBC (Bld) [#/Vol] 10*3/uL Normal <0.01 [facility] Comment on above: Order Comment: Speci men Type: BLOOD SPECIMEN Performed By: #### 5 8410-2 #### [facility] CLIA [id number] [address] [place] [address] [place] Nucleated RBC/100 WBC (Bld) [Ratio] 0.0 /100 WBC Normal 0.0 [facility] Comment on above: Order Comment: Speci men Type: BLOOD SPECIMEN Performed By: #### 5 8410-2 #### [facility] CLIA [id number] [address] [place] [address] [place] Platelet mean volume (Bld) [Entitic vol] 10.1 fL Normal 9.0-12.7 [facility] Comment on above: Order Comment: Speci men Type: BLOOD SPECIMEN Performed By: #### 5 8410-2 #### [facility] CLIA [id number] [address] [place] [address] [place] Platelets (Bld) [#/Vol] 282 10*3/uL Normal 150-400 [facility] Comment on above: Order Comment: Speci men Type: BLOOD SPECIMEN Performed By: #### 5 8410-2 #### [facility] CLIA [id number] [address] [place] [address] [place] RBC (Bld) [#/Vol] 4.52 10*6/uL Normal 3.90-5.20 [facility] Comment on above: Order Comment: Speci men Type: BLOOD SPECIMEN Performed By: #### 5 8410-2 #### [facility] CLIA [id number] [address] [place] [address] [place] WBC (Bld) [#/Vol] 14.71 10*3/uL High 3.70-11.00 [facility] Comment on above: Order Comment: Speci men Type: BLOOD SPECIMEN Performed By: #### 5 8410-2 #### [facility] CLIA [id number] [address] [place] [address] [place] CK CREATINE KINASEon 020 CK [Catalytic activity/Vol] 1014 U/L High 42-196 [facility] Comment on above: Order Comment: Speci men Type: BLOOD SPECIMEN Performed By: #### 5 8410-2 #### [facility] CLIA [id number] [address] [place] [address] CK [Catalytic activity/Vol] 1157 U/L High 42-196 [facility] Comment on above: Order Comment: Speci men Type: BLOOD SPECIMEN Performed By: #### 5 8410-2 #### [facility] CLIA [id number] [address] [place] [address] CK [Catalytic activity/Vol] 1267 U/L High 42-196 [facility] Comment on above: Order Comment: Speci men Type: BLOOD SPECIMEN Performed By: #### 5 8410-2 #### [facility] CLIA [id number] [address] [place] [address] [facility] CK TOTAL AND CK-MBon 020 CK [Catalytic activity/Vol] 1387 U/L High 42-196 [facility] Comment on above: Order Comment: Speci men Type: BLOOD SPECIMEN Performed By: #### C ONABO #### [facility] CLIA [id number] CK.MB [Mass/Vol] 5.9 ng/mL High <4.4 [facility] Comment on above: Order Comment: Speci men Type: BLOOD SPECIMEN Performed By: #### C ONABO #### [facility] CLIA [id number] CK.MB [Ratio] 40 {ratio} Normal 0.0-4.0 [facility] Comment on above: Order Comment: Speci men Type: BLOOD SPECIMEN Performed By: #### C ONABO #### [facility] CLIA [id number] CONFIRM BLOOD TYPEon 020 ABO AB Normal [facility] Comment on above: Order Comment: Speci men Type: BLOOD SPECIMEN Performed By: #### C ONABO #### [facility] CLIA [id number] Rh Nom (Bld) Positive Normal [facility] Comment on above: Order Comment: Speci men Type: BLOOD SPECIMEN Result Comment: SREEDHAR n eg Performed By: #### C ONABO #### [facility] CLIA [id number] CONSULTon 03-09-2020 CONSULT HNO ID: [id number] Author: Leland Herrera Service: Orthopaedic Surgery Author Type: Physician Type: Consults Filed: 03/09/2020 10:50 AM Note Text: ORTHOPAEDIC SURGERY CONSULT Pt: LISA SHIRLEY Date [...] her, including future surgical plan for functional mandaeism. Anticipate surgery 03/12/2020 depending on ongoing evaluation and recovery. Leland Herrera MD HPI: 74 year old female presented to [facility] as a transfer from [place] for stroke with orthopaedics being consulted for [...] ?F) Resp 19 Ht 167.6 cm (5' 6) Wt 107.2 kg (236 lb 5.3 oz) [...] Rogers MD Orthopaedic Surgery 03/09/2020 3:55 AM [facility] CONSULT PROGon 03-09-2020 CONSULT PROG HNO ID: [id number] Author: Temitope Moore (Pharmacist) Service: Pharmacy Author [...] [place] questions[place] [phone]. Age: [age] year old Allergies: ALLERGIES Allergen [...] Readings: Date: Ht: 03/08/2020 167.6 cm (5' 6) CrCl: 53.4 mL/min Temp (24hrs), Av.4 ?C [...] results found for: GATO MOORE, PHARMACIST Normal [facility] Comp Metab 2000 Pnl SerPlon 03-09-2020 Albumin [Mass/Vol] 4.0 g/dL Normal 3.9-4.9 [facility] Comment on above: Order Comment: Speci men Type: BLOOD SPECIMEN Performed By: #### 2 4321-2 #### [facility] CLIA [id number] [address] [place] [address] ALP [Catalytic activity/Vol] 87 U/L Normal 34-123 [facility] Comment on above: Order Comment: Speci men Type: BLOOD SPECIMEN Performed By: #### 2 4321-2 #### [facility] CLIA [id number] [address] [place] [address] ALT With P-5'-P [Catalytic activity/Vol] 18 U/L Normal 7-38 [facility] Comment on above: Order Comment: Speci men Type: BLOOD SPECIMEN Performed By: #### 2 4321-2 #### [facility] CLIA [id number] [address] [place] [address] AST With P-5'-P [Catalytic activity/Vol] 24 U/L Normal 13-35 [facility] Comment on above: Order Comment: Speci men Type: BLOOD SPECIMEN Performed By: #### 2 4321-2 #### [facility] CLIA [id number] [address] [place] [address] Bilirubin [Mass/Vol] 0.8 mg/dL Normal 0.2-1.3 [facility] Comment on above: Order Comment: Speci men Type: BLOOD SPECIMEN Performed By: #### 2 4321-2 #### [facility] CLIA [id number] [address] [place] [address] Calcium [Mass/Vol] 8.9 mg/dL Normal 8.5-10.2 [facility] Comment on above: Order Comment: Speci men Type: BLOOD SPECIMEN Performed By: #### 2 4321-2 #### [facility] CLIA [id number] [address] [place] [address] CO2 [Moles/Vol] 20 mmol/L Low 22-30 [facility] Comment on above: Order Comment: Speci men Type: BLOOD SPECIMEN Performed By: #### 2 4321-2 #### [facility] CLIA [id number] [address] [place] [address] Potassium [Moles/Vol] 4.2 mmol/L Normal 3.7-5.1 [facility] Comment on above: Order Comment: Speci men Type: BLOOD SPECIMEN Performed By: #### 2 4321-2 #### [facility] CLIA [id number] [address] [place] [address] Protein [Mass/Vol] 7.5 g/dL Normal 6.3-8.0 [facility] Comment on above: Order Comment: Speci men Type: BLOOD SPECIMEN Performed By: #### 2 4321-2 #### [facility] CLIA [id number] [address] [place] [address] Gas + CO Pnl BldVon 03-09-20 20 Base excess Calc (BldV) [Moles/Vol] 0.1 mmol/L Normal 0-2 [facility] Comment on above: Order Comment: Speci men Type: VENOUS BLOOD SPECIMEN Performed By: #### 2 4344-4 ####[facility]ORYCLIA [id number] [place] [address] CALCIUM IONIZED, PH CORRECTED 1.23 mmol/L Normal 1.08-1.30 [facility] Comment on above: Order Comment: Speci men Type: VENOUS BLOOD SPECIMEN Performed By: #### 2 4344-4 ####[facility]ORYCLIA [id number] [place] [address] Calcium.ionized (BldV) [Mass/Vol] 1.22 mmol/L Normal 1.08-1.30 [facility] Comment on above: Order Comment: Speci men Type: VENOUS BLOOD SPECIMEN Performed By: #### 2 4344-4 ####[facility]ORYCLIA [id number] [place] [address] Carboxyhemoglobin (BldV) [Mass fraction] 1.2 % Normal Non Smoker: <2.1, Smoker: 2-8 [facility] Comment on above: Order Comment: Speci men Type: VENOUS BLOOD SPECIMEN Performed By: #### 2 4344-4 ####[facility] LABORATORYCLIA [id number] [place] [address] CO2 (BldV) [Partial pressure] 38 mm[Hg] Low 42-55 [facility] Comment on above: Order Comment: Speci men Type: VENOUS BLOOD SPECIMEN Performed By: #### 2 4344-4 ####[facility]ORATORYCLIA [id number] [place] [address] CO2 [Moles/Vol] 21.4 mmol/L Low 25-29 [facility] Comment on above: Order Comment: Speci men Type: VENOUS BLOOD SPECIMEN Performed By: #### 2 4344-4 ####[facility] LABORATORYCLIA [id number] [place] [address] Glucose [Mass/Vol] 188 mg/dL High 60-105 [facility] Comment on above: Order Comment: Speci men Type: VENOUS BLOOD SPECIMEN Performed By: #### 2 4344-4 ####[facility] LABORATORYCLIA [id number] [place] [address] HCO3 (Bld) [Moles/Vol] 23.9 mmol/L Low 24-28 [facility] Comment on above: Order Comment: Speci men Type: VENOUS BLOOD SPECIMEN Performed By: #### 2 4344-4 ####[facility]ORYCLIA [id number] [place] [address] Hematocrit (Bld) [Volume fraction] 40.5 % Normal 36.0-46.0 [facility] Comment on above: Order Comment: Speci men Type: VENOUS BLOOD SPECIMEN Performed By: #### 2 4344-4 ####[facility]ORYCLIA [id number] [place] [address] Hemoglobin (Bld) [Mass/Vol] 13.2 g/dL Normal 11.5-15.5 [facility] Comment on above: Order Comment: Speci men Type: VENOUS BLOOD SPECIMEN Performed By: #### 2 4344-4 ####[facility]ORYCLIA [id number] [place] [address] Methemoglobin (Bld) [Mass fraction] % Normal 0.0-1.5 [facility] Comment on above: Order Comment: Speci men Type: VENOUS BLOOD SPECIMEN Performed By: #### 2 4344-4 ####[facility]CLIA [id number] [place] [address] O2 THERAPY NC = Nasal Cannula Normal [facility] Comment on above: Order Comment: Speci men Type: VENOUS BLOOD SPECIMEN Performed By: #### 2 4344-4 ####[facility]ORYCLIA [id number] [place] [address] Oxygen (BldV) [Partial pressure] 36 mm[Hg] Normal 35-45 [facility] Comment on above: Order Comment: Speci men Type: VENOUS BLOOD SPECIMEN Performed By: #### 2 4344-4 ####[facility]ORYCLIA [id number] [place] [address] Oxygen saturation in Blood 65.1 % Normal 60-85 [facility] Comment on above: Order Comment: Speci men Type: VENOUS BLOOD SPECIMEN Performed By: #### 2 4344-4 ####[facility]ORYCLIA [id number] [place] [address] Oxyhemoglobin (BldV) [Mass fraction] 64 % Normal 60-85 [facility] Comment on above: Order Comment: Speci men Type: VENOUS BLOOD SPECIMEN Performed By: #### 2 4344-4 ####[facility]ORYCLIA [id number] [place] [address] pH (BldV) 7.42 [pH] Normal 7.32-7.42 [facility] Comment on above: Order Comment: Speci men Type: VENOUS BLOOD SPECIMEN Performed By: #### 2 4344-4 ####[facility]ORYCLIA [id number] [place] [address] Sodium [Moles/Vol] 140 mmol/L Normal 136-144 [facility] Comment on above: Order Comment: Speci men Type: VENOUS BLOOD SPECIMEN Performed By: #### 2 4344-4 ####[facility]ORYCLIA [id number] [place] [address] HGB A1Con 03-09-2020 Average glucose Estimated from glycated hemoglobin mass conc (Bld) 229 mg/dL Normal [facility] Comment on above: Order Comment: Speci men Type: BLOOD SPECIMEN Result Comment: eAG: (Estimated average glucose) is a calculated value from HgbA1c and is senior human resources representative of the average blood glucose level in the last 2-3 month period. Performed By: #### H BA1C ####[facility] LABORATORYCLIA [id number] [place] [address] HbA1c (Bld) [Mass fraction] 9.6 % High 4.3-5.6 [facility] Comment on above: Order Comment: Speci [facility] Type: BLOOD SPECIMEN Result Comment: [facility] Diabetes Association guidelines indicate that patients with HgbA1c in the range 5.7-6.4% are at increased risk for development of diabetes, and intervention by lifestyle modification may be beneficial. HgbA1c greater or equal to 6.5% is considered diagnostic of diabetes. Performed By: #### H BA1C ####[facility] LABORATORYCLIA [id number] [place] [address] HIGH SENSITIVITY TROPONIN To n 03-09-2020 HIGH SENSITIVITY MAXIMILIANO 35 ng/L High <12 [facility] Comment on above: Order Comment: [facility] Type: BLOOD SPECIMEN Result Comment: When assessing [...] MACE. Performed By: #### 5 8410-2 #### [facility] CLIA [id number] [address] [place] [address] HIGH SENSITIVITY MAXIMILIANO 65 ng/L High <12 [facility] Comment on above: Order Comment: Speci [facility] Type: BLOOD SPECIMEN Result Comment: When assessing [...] value: Performed By: #### H STNT #### [facility] CLIA [id number] [address] [place] [id number] HIGH SENSITIVITY MAXIMILIANO 58 ng/L High <12 [facility] Comment on above: Order Comment: [...] value: Performed By: #### 5 8410-2 #### [facility] CLIA [id number] [address] [place] [address] HISTORY PHYSICALon 0 HISTORY PHYSICAL HNO ID: [id number] Author: Akin Schwab Service: Neurology ICU Author Type: Physician Type: HANDP Filed: 03/09/2020 8:22 AM Note Text: SERVICE DATE: 03/08/2020 SERVICE TIME: 11:00PM NEUROLOGICAL INTENSIVE CARE UNIT HISTORY AND PHYSICAL (STROKE CARE PATH) REASON FOR STROKE EVALUATION: Left Sided Weakness, Dysarthria and Facial droop REASON FOR NEUROLOGICAL ICU ADMISSION: Acute R MCA stroke Stroke Mechanism: METRICS: Initial NIHSS Score: 20 [place] Coma Scale Totals (Calculated): 14 Date Patient Last Known Well: 03/06/20 Date of Patient Arrival at THIS Facility: 03/08/20 Time of Patient Arrival at THIS Facility: 2154 Pre-admission: Was patient on antithrombotic agent prior to admission: No Premorbid Modified Aurora Score: 0=0 - No symptoms at all Baseline Functional Status (i.e. ADL's, Ambulatory Status, Cognitive Issues): Lives alone, ambulatory at baseline, AANDOx3. Subjective HPI: Patient is a 74 year old female with past medical history significant for DM type II, HTN, CKD stage 3, HLD, SEE, major depressive disorder, GERD, Insomnia, and IBS who presents as transfer from [place] with findings of acute R MCA stroke. [...] but no prior deficits. In ED at [place], stroke eval performed with CT findings of R caudate, insula and frontal evolving infarcts. ASPECTS score 5. CTA nondiagnostic as contrast infiltrated in arm and IV access lost during scan. Central line placed at [place] for access. Patient out of window for [...] by XR. Patient subsequently transferred here to [facility] NSICU for further stroke workup and [...] - COLONOSCOPY usually had some polyps 2008 FAMILY HISTORY Problem Relation Age of Onset [...] - PRN tylenol - IVF - Infectious laswon as noted above. Leukocytosis 03/09/2020 - Present [...] Units SUBCUTANEOUS EVERY 8 HOURS 03/08/202219 -- 03/09/20 0600 activity - mobilize patient (wi,mt) 03/08/202214 pneumatic compression stockings (wi,mt) VTE Prophylaxis: VTE prophylaxis appropriate Critical Care Time Spent: 50 minutes SIGNATURE: Caro Wen PA-C PATIENT NAME: Lisa Shirley DATE: March 09, 2020 TIME: 3:54 AM PAGER/CONTACT #: Attending Note I have personally performed a face to face assessment of the patient and have reviewed the PA/COMMUNITY PRODUCT SPECIALIST note. Signature: Akin Schwab, Normal [facility] LIPID PANEL BASICon 03-09-20 20 Cholesterol [Mass/Vol] 229 mg/dL High <200 [facility] Comment on above: Order Comment: Speci men Type: BLOOD SPECIMEN Result Comment: <200 mg/dL, Desirable 200-239 mg/dL, Borderline high >239 mg/dL, High Performed By: #### C ONABO #### [facility] CLIA [id number] Cholesterol in HDL [Mass/Vol] 59 mg/dL Normal >39 [facility] Comment on above: Order Comment: Speci men Type: BLOOD SPECIMEN Result Comment: 40-5 9 mg/dL, Acceptable >59 mg/dL, High: Negative risk factor for coronary heart disease <40 mg/dL, Low: Positive risk factor for coronary heart disease Performed By: #### C ONABO #### [facility] CLIA [id number] Cholesterol in LDL [Mass/Vol] 142 mg/dL High <100 [facility] Comment on above: Order Comment: Spec men Type: BLOOD SPECIMEN Result Comment: <100 mg/dL, Optimal 100-129 mg/dL, Near optimal/above optimal 130-159 mg/dL, Borderline high 160-189 mg/dL, High >189 mg/dL, Very high Secondary prevention optimal LDL Cholesterol levels are recommended to be < 70 mg/dL Performed By: #### C ONABO #### [facility] CLIA [id number] Cholesterol in LDL/Cholesterol in HDL [Mass ratio] 2.41 Normal <2.54 [facility] Comment on above: Order Comment: Speci men Type: BLOOD SPECIMEN Result Comment: Akhil monroy: 1. National Cholesterol Education Program ATP III Guideline At-A-Glance Quick Desk Reference: National Heart, Lung, and Blood Wilson. National Institutes of Health. 2001: NIH Publication No. 01-3305. 2. An International Atherosclerosis Society position paper: global recommendations for the management of dyslipidemia: executive summary, Atherosclerosis. 2014: 232(2):410-413. Performed By: #### C ONABO #### [facility] CLIA [id number] Cholesterol in VLDL [Mass/Vol] 28 mg/dL Normal <30 [facility] Comment on above: Order Comment: Speci men Type: BLOOD SPECIMEN Performed By: #### C ONABO #### [facility] CLIA [id number] Cholesterol non HDL [Mass/Vol] 170 mg/dL High <130 [facility] Comment on above: Order Comment: Speci men Type: BLOOD SPECIMEN Result Comment: <130 mg/dL, Optimal 130-159 mg/dL, Near optimal/above optimal 160-189 mg/dL, Borderline high 190-219 mg/dL, High >219 mg/dL, Very high Secondary prevention optimal non HDL Cholesterol levels are recommended to be <100 mg/dL Performed By: #### C ONABO #### [facility] CLIA [id number] Cholesterol.total/Cho lesterol in HDL [Mass ratio] 3.88 {ratio} Normal <5.10 [facility] Comment on above: Order Comment: Speci men Type: BLOOD SPECIMEN Performed By: #### C ONABO #### [facility] CLIA [id number] FASTING TIME 12 hrs Normal [facility] Comment on above: Order Comment: Speci men Type: BLOOD SPECIMEN Performed By: #### C ONABO #### [facility] CLIA [id number] Triglyceride [Mass/Vol] 139 mg/dL Normal <150 [facility] Comment on above: Order Comment: Speci men Type: BLOOD SPECIMEN Result Comment: <150 mg/dL, Normal 150-199 mg/dL, Borderline high 200-499 mg/dL, High >499 mg/dL, Very high Performed By: #### C ONABO #### [facility] CLIA [id number] Lactate Bld-sCncon 0 Lactate [Moles/Vol] 1.8 mmol/L Normal 0.5-2.2 [facility] Comment on above: Order Comment: Speci men Type: BLOOD SPECIMEN Performed By: #### 5 8410-2 #### [facility] CLIA [id number] [address] [place] [address] Lactate [Moles/Vol] 2.0 mmol/L Normal 0.5-2.2 [facility] Comment on above: Order Comment: Speci men Type: BLOOD SPECIMEN Performed By: #### 3 2693-4 ####[facility]ORATORYCLIA [id number] [place] [address] MEDICAL EMERon 03-09-2020 MEDICAL JOSEF HNO ID: [id number] Author: Danuta Pulido (Pa) Service: Neurology ICU Author Type: Physician Map And Chart Mounter Type: Chg in Clinical Condition Filed: 03/09/2020 6:51 PM Note Text: Asked to evaluate pt by RN, sarita. Concern for pupil changes and left side [...] March 09, 2020 6:51 PM 1763 Normal [facility] MRI BRAIN WO IVCONon 020 MRI BRAIN WO IVCON Final Report DATE OF EXAM: Mar 09 2020 9:04PM JASS 0294 - MRI BRAIN WO IVCON / [...] lacunar infarct in the anterior left destiny. Director Of Archives: [facility] Transcribe Date/Time: Mar 10 2020 1:43P Dictated by : GEO CONTEH MD This examination was interpreted and the report reviewed and electronically signed by: GOE CONTEH MD on Mar 10 2020 2:05PM EST Normal [facility] Magnesium SerPl-mCncon 03-09 Magnesium [Mass/Vol] 1.9 mg/dL Normal 1.7-2.3 [facility] Comment on above: Order Comment: Speci men Type: BLOOD SPECIMEN Performed By: #### C ONABO #### [facility] CLIA [id number] Magnesium [Mass/Vol] 2.0 mg/dL Normal 1.7-2.3 [facility] Comment on above: Order Comment: Speci men Type: BLOOD SPECIMEN Performed By: #### 5 7021-8 #### [facility] CLIA [id number] [address] [place] [address] NURSING PROGon 03-09-2020 NURSING PROG HNO ID: [id number] Author: Bobbi Jean-BaptisteRn) JONNY Landeros Service: Nursing Author Type: Registered Nurse Type: Nursing Progress Note Filed: 03/09/2020 8:02 PM Note Text: Nursing Progress: Topic: RESTRAINT NON-VIOLENT PATIENT NAME: Lisa Shirley PATIENT LOCATION: [id number]/[place] [address]* The patient demonstrates Attempting to Remove Medical [...] 2020 TIME: 8:02 PM Bobbi Landeros RN Normal [facility] NURSING PROG HNO ID: [id number] Author: Sarita Tovar) JONNY Escobedo Service: ? Author Type: Registered Nurse Type: Nursing Progress Note Filed: 03/09/2020 9:10 AM Note Text: Nursing Progress: Topic: RESTRAINT NON-VIOLENT PATIENT NAME: Lisa Shirley PATIENT LOCATION: [id number]/[place] [address]* The patient demonstrates Confusion, Attempting to Remove [...] 2020 TIME: 9:10 AM Sarita Escobedo RN [facility] NURSING PROG HNO ID: [id number] Author: Perla (Jonny) JONNY Davis Service: Nursing Author Type: Registered Nurse Type: Nursing Progress Note Filed: 03/09/2020 1:00 AM Note Text: Nursing Progress: Topic: RESTRAINT NON-VIOLENT PATIENT NAME: Lisa Shirley PATIENT LOCATION: [place] [address]/[place] [address]* The patient demonstrates Confusion, Attempting to Remove [...] 2020 TIME: 12:59 AM Perla Davis RN [facility] NUTRITIONon 03-09-2020 NUTRITION HNO ID: [id number] Author: Ann Friend RD Service: Nutrition Therapy Author Type: Registered [...] - 90 Grams protein determined by: 1.2-1.5 g/kg;[place] Body Weight Care Plan: Change diet to [...] DIET NPO Anthropometrics: Height: 167.6 cm (5' 6) Weight: 107.7 kg (237 lb 7 oz) [...] March 09, 2020 TIME: 11:31 AM PAGER: [phone] Normal [facility] PLAN OF CAREon 03-09-2020 PLAN OF CARE HNO ID: [id number] Author: Quynh Robertson (Pharmacist) Service: Pharmacy Author Type: Pharmacist Type: Plan of Care Filed: 03/09/2020 12:55 PM Note Text: MEDICATION HISTORY AND MEDICATION RECONCILIATION Patient Name:Geoffrey Shirley : 1945 Source of history:Pharmacy records: [facility]; [facility] Pharmacy ([phone]) Medication Nonadherence Identified: No barriers noted The above information represents the best possible medication history: Yes ; unable to verify with patient at this time, no family identified Reconciliation completed? Yes All FLAT DRIER medications addressed by LIP Additional comments: Igpdu-wn-Udsikujrf Medication List Adjustments: Medication Regimen Changes: ? [...] Sensitivity - Seroquel [Quetiapin* Intolerance Preferred Pharmacy: [id number] Current [facility]ER Medications: Prior to Admission medications as of 03/09/20 09 Medication Sig Last Dose Taking zolpidem (AMBIEN) [...] 1 tablet by mouth once daily. Yes Maryellen Sexton March 09, 2020 12:50 PM Normal [facility] PLAN OF CARE HNO ID: [id number] Author: Quynh Robertson (Pharmacist) Service: Pharmacy Author [...] patient's care. Please contact pharmacy if questions. Maryellen Sexton Normal [facility] PROCALCITONIN (LAB)on 2019 Procalcitonin [Mass/Vol] 0.24 ng/mL High <0.09 [facility] Comment on above: Order Comment: Speci men Type: BLOOD SPECIMEN Result Comment: For a guided interpretation of test results, please visit the Change in Procalcitonin Calculator, [email or web address]. Performed By: #### P ROCAL ####[facility]ORATORYCLIA [id number] [place] [address] PROGRESSon 03-09-2020 PROGRESS HNO ID: [id number] Author: Shalom Lira DO Service: Neurology ICU Author Type: Resident Type: Progress Notes Filed: 03/09/2020 2:59 PM Note Text: SERVICE DATE: 03/09/2020 SERVICE TIME: 2:59 PM NEURO ICU PROGRESS NOTE DATE OF ADMISSION: 03/08/2020 Subjective Hospital Course: 03/09: Presented from OSH with concern for acute R MCA stroke. Found down at home, elevated CK, patient was in DKA, No LVO, patient admitted to [facility] NICU. Patient also had left trimal fracture, was reduced by ortho team, splinted. Today, patient had speech consult, required corpak placement, transitioned to subcutaneous insulin from insulin drop, DC vanc and zosyn Events Since Last Note: Transitioned to subcutaneous insulin, corpak placed, tube feeds started Objective BP 169/85 Pulse 95 Temp 37.3 ?C (99.1 ?F) Resp 19 Ht 167.6 cm (5' 6) Wt 107.7 kg (237 lb 7 oz) [...] Is Patient Clinically Ready to Transfer to [facility] or SDU?: No Discharge Planning: To be [...] neuropathy, without long-term current use of insulin ([facility]) 06/04/2016 - Present Current Assessment AND Plan [...] -- 03/09/20 0600 activity - mobilize patient (wi,mt) 03/08/20 2215 pneumatic compression stockings ([place], [place]) VTE Prophylaxis: VTE prophylaxis appropriate Plan of care discussed with: Provider, RN, Patient SIGNATURE: Shalom Lira DO PATIENT NAME: Lisa Shirley DATE: March 09, 2020 TIME: 2:59 PM Normal [facility] PT Pnl PPPon 03-09-2020 INR Coag (PPP) [Relative time] 1.1 {INR} Normal 0.9-1.3 [facility] Comment on above: Order Comment: Speci men Type: BLOOD SPECIMEN Result Comment: Francia min K Antagonist (VKA) Therapeutic Range: INR 2 to 3 (Target INR of 2.5) Note: For patients treated with VKA drugs, such as warfarin, the [place] [employer] 2012 Guideline recommends [...] Chest 2012, 141:7S-47S Caro RA, et al. [facility] 2017, 70: 252-289 Performed By: #### 3 4528-0, 16513-0 ####[facility] LABORATORYCLIA [id number] [place] [address] PT Coag (PPP) [Time] 10.9 s Normal 9.7-13.0 [facility] Comment on above: Order Comment: Speci men Type: BLOOD SPECIMEN Performed By: #### 3 4528-0, 47900-2 ####[facility]ORATORYCLIA [id number] [place] [address] Phosphate SerPl-ncon 03-09 Phosphate [Mass/Vol] 2.7 mg/dL Normal 2.7-4.8 [facility] Comment on above: Order Comment: Speci men Type: BLOOD SPECIMEN Performed By: #### 5 8410-2 #### [facility] CLIA [id number] [address] [place] [address] Phosphate [Mass/Vol] 3.5 mg/dL Normal 2.7-4.8 [facility] Comment on above: Order Comment: Speci men Type: BLOOD SPECIMEN Performed By: #### 5 7021-8 #### [facility] CLIA [id number] [address] [place] [id number] STAPH AUREUS PCRon 0 Staphylococcus aureus and Methicillin-resistant Staphylococcus aureus panel - Nose by SHLOMO with probe detection Normal Negative [facility] Comment on above: Order Comment: Speci men Type: SWAB OF INTERNAL NOSE Result Comment: Nega tive for Staphylococcus aureus by PCR. Negative for MRSA by PCR Performed By: #### S APCR #### [facility] CLIA [id number] [address] [place] [id number] THERAPY NTon 03-09-2020 THERAPY NT HNO ID: [id number] Author: Osmar (Ccc-Chip Separator) Elli CCC/DYEING MACHINE FEEDER Service: Speech/Swallow Author Type: Speech Language Pathologist Type: Therapy (PT/OT/Speech/Resp) Filed: 03/09/2020 2:05 PM Note Text: Speech Therapy Speech Evaluation Clinical Swallow Evaluation SERVICE DATE: 03/09/2020 SERVICE TIME: 1315 to 1345 ROOM: [place] [address] IMPRESSION: Patient demonstrates oropharyngeal dysphagia which is [...] stress, sleep disorder, Stroke, DM Continue skilled DYEING MACHINE FEEDER services due to : Dysphagia, Communication difficulties, [...] 0, Mildly Thick Liquids IDDSI Level 2 ([place] Thick), Puree Compensatory Strategies Utilized During Assessment: [...] cerebral infarction Interventions Provided: Speech Language Eval (88656);Clinical Swallow Evaluation (18567) $ Speech Language Eval (40337) Billed Units: 1 unit $ Clinical Swallow Evaluation (73584) Billed Units: 1 unit Total Treatment Time (minutes): 30 Home Environment Prior Functional Level: Within Functional Limits Assistance Available: multimedia artist Prior Swallowing Function/Diet Textures: Regular Consistency;Thin Liquids IDDSI Level 0 Please see discipline specific clinical documentation flowsheet for complete details for this therapy evaluation/treatment. SIGNATURE: Osmar Calloway CCC-DYEING MACHINE FEEDER PATIENT NAME: Lisa Shirley DATE: March 09, 2020 TIME: 2:00 PM Normal [facility] THERAPY NT HNO ID: [id number] Author: Tahmina (Pt) Mary Service: Physical Therapy Author Type: Physical Therapist Type: Therapy (PT/OT/Speech/Resp) Filed: 03/09/2020 9:05 AM Note Text: PHYSICAL THERAPY MISSED VISIT SERVICE DATE: 03/09/2020 SERVICE TIME: 903 to 903 ROOM: [place] [address] Attempted Evaluation. Patient not seen due to Illness. Hold today per JONNY Sandhu. Will continue to follow patient as able. SIGNATURE: Tahmina Hernandez PT PATIENT NAME: Lisa Shirley DATE: March 09, 2020 TIME: 9:04 AM Normal [facility] TYPE AND SCREENon 03-09-2020 ABO AB Normal [facility] Comment on above: Order Comment: Speci men Type: SWAB OF INTERNAL NOSE Performed By: #### S APCR #### [facility] CLIA [id number] [address] [place] [address] HISTORICAL AB SCR STATUS Negative Normal [facility] Comment on above: Order Comment: Speci men Type: SWAB OF INTERNAL NOSE Performed By: #### S APCR #### [facility] CLIA [id number] [address] [place] [address] Rh Nom (Bld) Positive Normal [facility] Comment on above: Order Comment: Speci men Type: SWAB OF INTERNAL NOSE Performed By: #### S APCR #### [facility] CLIA [id number] [address] [place] [address] TYPE AND SCREEN EXPIRATION 03/11/2020 23:59 Normal [facility] Comment on above: Order Comment: Speci men Type: SWAB OF INTERNAL NOSE Performed By: #### S APCR #### [facility] CLIA [id number] [address] [place] [address] UA WITH CULTURE IF INDICATED on 03-09-2020 Bacteria LM.HPF (Urine sed) [#/Area] None Seen Normal None Seen [facility] Comment on above: Order Comment: Speci men Type: URINE SPECIMEN Performed By: #### U ACII ####[facility]ORATORYCLIA [id number] [place] [address] Bilirubin Ql (U) Negative Normal Negative [facility] Comment on above: Order Comment: Speci men Type: URINE SPECIMEN Performed By: #### U ACII ####[facility]ORATORYCLIA [id number] [place] [address] Clarity (Unsp spec) Clear Normal Clear [facility] Comment on above: Order Comment: Speci men Type: URINE SPECIMEN Performed By: #### U ACII ####[facility]ORATORYCLIA [id number] [place] [address] Color (U) Yellow Normal Yellow [facility] Comment on above: Order Comment: Speci men Type: URINE SPECIMEN Performed By: #### U ACII ####[facility]ATORYCLIA [id number] [place] [address] Epithelial cells LM.HPF (Urine sed) [#/Area] 1.1 /[HPF] Normal [facility] Comment on above: Order Comment: Speci men Type: URINE SPECIMEN Performed By: #### U ACII ####[facility]ATORYCLIA [id number] [place] [address] Glucose Test strip (U) [Mass/Vol] >=1000 mg/dL Abnormal Negative [facility] Comment on above: Order Comment: Speci men Type: URINE SPECIMEN Performed By: #### U ACII ####[facility]ATORYCLIA [id number] [place] [address] Hemoglobin Ql (U) Large Abnormal Negative [facility] Comment on above: Order Comment: Speci men Type: URINE SPECIMEN Performed By: #### U ACII ####[facility]ORYCLIA [id number] [place] [address] Hyaline casts (Urine sed) [#/Area] 4-10 /LPF Abnormal 0 /LPF [facility] Comment on above: Order Comment: Speci men Type: URINE SPECIMEN Performed By: #### U ACII ####[facility]ORYCLIA [id number] [place] [address] Ketones Ql (U) 40 mg/dL Abnormal Negative [facility] Comment on above: Order Comment: Speci men Type: URINE SPECIMEN Performed By: #### U ACII ####[facility]ATORYCLIA [id number] [place] [address] Leukocyte esterase Test strip Ql (U) Negative Normal Negative [facility] Comment on above: Order Comment: Speci men Type: URINE SPECIMEN Performed By: #### U ACII ####[facility]ORY[facility]IA [id number] [place] [address] Nitrite Ql (U) Negative Normal Negative [facility] Comment on above: Order Comment: Speci men Type: URINE SPECIMEN Performed By: #### U ACII ####[facility]ORYCLIA [id number] [place], [place] [address] pH (U) 5.5 [pH] Normal 5.0-8.0 [facility] Comment on above: Order Comment: Speci men Type: URINE SPECIMEN Performed By: #### U ACII ####[facility] LABORATORYCLIA [id number] [place] [address] Protein (U) [Mass/Vol] 100 mg/dL Abnormal Negative [facility] Comment on above: Order Comment: Speci men Type: URINE SPECIMEN Performed By: #### U ACII ####[facility]ORY[facility]IA [id number] [place] [address] RBC LM.HPF (Urine sed) [#/Area] 11-25 /HPF Abnormal 0-3 /HPF [facility] Comment on above: Order Comment: Speci men Type: URINE SPECIMEN Performed By: #### U ACII ####[facility]ATORYCLIA [id number] [place] [address] Specific gravity (U) [Rel density] 1.045 High 1.005-1.03 0 [facility] Comment on above: Order Comment: Speci men Type: URINE SPECIMEN Performed By: #### U ACII ####[facility] LABORATORYCLIA [id number] [place] [address] Urobilinogen Test strip Ql (U) 0.2 EU/dL Normal 0.2-1.0 EU/dL [facility] Comment on above: Order Comment: Speci men Type: URINE SPECIMEN Performed By: #### U ACII ####[facility] LABORATORYCLIA [id number] [place] [address] WBC LM.HPF (Urine sed) [#/Area] 0-5 /HPF Normal 0-5 /HPF [facility] Comment on above: Order Comment: Speci men Type: URINE SPECIMEN Performed By: #### U ACII ####[facility] LABORATORYCLIA [id number] [place] [address] XR ABDOMEN 1V SUPINEon 03-09 XR ABDOMEN [...] expected location of the body the stomach. Director Of Archives: [facility] Transcribe Date/Time: Mar 09 2020 2:38P Dictated by : MAITE STRINGER MD This examination was interpreted and the report reviewed and electronically signed by: MAITE STRINGER MD on Mar 09 2020 2:39PM EST Normal [facility] XR ABDOMEN 1V SUPINE Final Report DATE [...] the distal esophagus. This should be advanced. Director Of Archives: [facility] Transcribe Date/Time: Mar 09 2020 2:39P Dictated by : MAITE STRINGER MD This examination was interpreted and the report reviewed and electronically signed by: MAITE STRINGER MD on Mar 09 2020 2:41PM EST Normal [facility] XR ANKLE 3V AP/LAT/OBL LTon 03-09-2020 XR [...] Closed reduction and cast placement as above Director Of Archives: [facility] Transcribe Date/Time: Mar 09 2020 1:45A Dictated by : MYLES COX MD This examination was interpreted and the report reviewed and electronically signed by: MYLES COX MD on Mar 09 2020 2:19AM EST Normal [facility] XR ANKLE 3V AP/LAT/OBL LT Final Report [...] no significant changes compared the prior study. Director Of Archives: T[facility] Transcribe Date/Time: Mar 09 2020 12:18A Dictated by : MYLES COX MD This examination was interpreted and the report reviewed and electronically signed by: MYLES COX MD on Mar 09 2020 12:19AM EST Normal [facility] XR ANKLE SPECIFY 1V LTon XR ANKLE [...] Near anatomic alignment of the tibiotalar joint Director Of Archives: [facility] Transcribe Date/Time: Mar 09 2020 4:41A Dictated by : TOSIN CLARK MD This examination was interpreted and the report reviewed and electronically signed by: TOSIN CLARK MD on Mar 09 2020 4:44AM EST Normal [facility] XR CHEST 1V FRONTAL PORTon 1 05-09-2019 [...] adverse interval change compared the prior study. Director Of Archives: [facility] Transcribe Date/Time: Mar 08 2020 11:04P Dictated by : MYLES COX MD This examination was interpreted and the report reviewed and electronically signed by: MYLES COX MD on Mar 08 2020 11:04PM EST Normal [facility] aPTT PPPon 03-09-2020 aPTT Coag (PPP) [Time] 23.7 s Normal 23.0-32.4 [facility] Comment on above: Order Comment: Speci men Type: BLOOD SPECIMEN Performed By: #### 3 4528-0, 57802-2 ####[facility] LABORATORYCLIA [id number] [place] [address] 2018 CORONAVIRUSon 2018 CORONAVIRUS COVID 19 SOURCE INSURANCE SALES AGENT: UPPER RESPIRATORY TRACT SWAB Called to and read back by: Luis Landeros RN [facility] 03/10/2020 0059 by Ajay Márquez. COVID 19 RESULT INSURANCE SALES AGENT: Positive for COVID19 (SARS CoV2) by PCR.(*) This test was developed and its performance characteristics determined by [facility] Pathology [facility] [place]. This test has been authorized by FDA under an Emergency Use Authorization (EUA). This test has been validated in accordance with the FDA's Guidance Document Policy for Diagnostics Testing in Laboratories Certified to Perform High Complexity Testing under CLIA prior to Emergency use Authorization for Coronavirus Disease 2019 during the Public Health Emergency issued on June 25, 2019. Normal [facility] Comment on above: Performed By: #### 5 8410-2 #### [facility] CLIA [id number] [address] [place] [address] [place] Bas Metab 2000 Pnl SerPlon 1 05-08-2019 Anion gap [Moles/Vol] 21 mmol/L High 01-12 [facility] Comment on above: Order Comment: Speci men Type: BLOOD SPECIMEN Performed By: #### 2 4321-2 #### [facility] CLIA [id number] [address] [place] [address] Calcium [Mass/Vol] 9.8 mg/dL Normal 8.5-10.2 [facility] Comment on above: Order Comment: Speci men Type: BLOOD SPECIMEN Performed By: #### 2 4321-2 #### [facility] CLIA [id number] [address] [place] [address] Chloride [Moles/Vol] 94 mmol/L Low 97-105 [facility] Comment on above: Order Comment: Speci men Type: BLOOD SPECIMEN Performed By: #### 2 4321-2 #### [facility] CLIA [id number] [address] [place] [address] CO2 [Moles/Vol] 19 mmol/L Low 22-30 [facility] Comment on above: Order Comment: Speci men Type: BLOOD SPECIMEN Performed By: #### 2 4321-2 #### [facility] CLIA [id number] [address] [place] [address] Creatinine [Mass/Vol] 1.30 mg/dL High 0.58-0.96 [facility] Comment on above: Order Comment: Speci men Type: BLOOD SPECIMEN Performed By: #### 2 4321-2 #### [facility] CLIA [id number] [address] [place] [address] GFR/1.73 sq M predicted among blacks MDRD (S/P/Bld) [Vol rate/Area] 49 mL/min/{1.73_m2} [facility] Comment on above: Order Comment: Speci men Type: BLOOD SPECIMEN Performed By: #### 2 4321-2 #### [facility] CLIA [id number] [address] [place] [address] GFR/1.73 sq M predicted among non-blacks MDRD (S/P/Bld) [Vol rate/Area] 40 mL/min/{1.73_m2} [facility] Comment on above: Order Comment: Speci men [...] GFR. Performed By: #### 2 4321-2 #### [facility] CLIA [id number] [address] [place] [address] Glucose [Mass/Vol] 509 mg/dL High 74-99 [facility] Comment on above: Order Comment: Speci men Type: BLOOD SPECIMEN Result Comment: The [place] Diabetes Association (ADA) provides guidance for cutoff [...] Standards of Medical Care in Diabetes 2016, [place] Diabetes Association. Diabetes Care. 2016.39(Suppl 1). Urgent value: Performed By: #### 2 4321-2 #### [facility] CLIA [id number] [address] [place] [address] Potassium [Moles/Vol] 4.5 mmol/L Normal 3.7-5.1 [facility] Comment on above: Order Comment: Speci men Type: BLOOD SPECIMEN Performed By: #### 2 4321-2 #### [facility] CLIA [id number] [address] [place] [address] Sodium [Moles/Vol] 134 mmol/L Low 136-144 [facility] Comment on above: Order Comment: Speci men Type: BLOOD SPECIMEN Performed By: #### 2 4321-2 #### [facility] CLIA [id number] [address] [place] [address] Urea nitrogen [Mass/Vol] 24 mg/dL High 7-21 [facility] Comment on above: Order Comment: Speci men Type: BLOOD SPECIMEN Performed By: #### 2 4321-2 #### [facility] CLIA [id number] [address] [place] [address] CBC (hemogram) Bld Autoon Erythrocyte distribution width (RBC) [Ratio] 13.0 % Normal 11.5-15.0 [facility] Comment on above: Order Comment: Speci men Type: BLOOD SPECIMEN Performed By: #### 5 8410-2 #### [facility] CLIA [id number] [address] [place] [address] [facility] Hematocrit (Bld) [Volume fraction] 42.5 % Normal 36.0-46.0 [facility] Comment on above: Order Comment: Speci men Type: BLOOD SPECIMEN Performed By: #### 5 8410-2 #### [facility] CLIA [id number] [address] [place] [address] [place] Hemoglobin (Bld) [Mass/Vol] 14.1 g/dL Normal 11.5-15.5 [facility] Comment on above: Order Comment: Speci men Type: BLOOD SPECIMEN Performed By: #### 5 8410-2 #### [facility] CLIA [id number] [address] [place] [address] [place] MCH (RBC) [Entitic mass] 30.5 pg Normal 26.0-34.0 [facility] Comment on above: Order Comment: Speci men Type: BLOOD SPECIMEN Performed By: #### 5 8410-2 #### [facility] CLIA [id number] [address] [place] [address] [place] MCHC (RBC) [Mass/Vol] 33.2 g/dL Normal 30.5-36.0 [facility] Comment on above: Order Comment: Speci men Type: BLOOD SPECIMEN Performed By: #### 5 8410-2 #### [facility] CLIA [id number] [address] [place] [address] [facility] [place] MCV (RBC) [Entitic vol] 91.8 fL Normal 80.0-100.0 [facility] Comment on above: Order Comment: Speci men Type: BLOOD SPECIMEN Performed By: #### 5 8410-2 #### [facility] CLIA [id number] [address] [place] [address] [facility] Platelet mean volume (Bld) [Entitic vol] 10.3 fL Normal 9.0-12.7 [facility] Comment on above: Order Comment: Speci men Type: BLOOD SPECIMEN Performed By: #### 5 8410-2 #### [facility] CLIA [id number] [address] [place], [place] [address] [place] [address] OF [place] Platelets (Bld) [#/Vol] 276 10*3/uL Normal 150-400 [facility] Comment on above: Order Comment: Speci men Type: BLOOD SPECIMEN Performed By: #### 5 8410-2 #### [facility] CLIA [id number] [address] [place], [place] [address] [place] [address] STATES [place] [facility] RBC (Bld) [#/Vol] 4.63 10*6/uL Normal 3.90-5.20 [facility] Comment on above: Order Comment: Speci men Type: BLOOD SPECIMEN Performed By: #### 5 8410-2 #### [facility] CLIA [id number] [address] [place], [place] [address] [place] [address] OF [facility] WBC (Bld) [#/Vol] 13.06 10*3/uL High 3.70-11.00 [facility] Comment on above: Order Comment: Speci men Type: BLOOD SPECIMEN Performed By: #### 5 8410-2 #### [facility] CLIA [id number] [address] [place] [address] [facility] OF [place] CK CREATINE KINASEon 020 CK [Catalytic activity/Vol] 1111 U/L High 42-196 [facility] Comment on above: Order Comment: Speci men Type: BLOOD SPECIMEN Performed By: #### 2 4321-2 #### [facility] CLIA [id number] [address] [place] [id number] BRAIN WO IVCONon 03-08-[address] BRAIN WO IVCON Final Report DATE OF EXAM: Mar 08 2020 2:02PM [facility] 0504 - CT BRAIN WO IVCON [...] reduction techniques were required COMPARISON: 11/21/2017. RESULT: Computer Operations Specialist (topogram) images: No additional findings. Post-operative change: [...] with Dr. Thurston at 2:24pm on 03/08/2020. Director Of Archives: [facility] Transcribe Date/Time: Mar 08 2020 2:18P Dictated by : CLEVE SHERIFF MD This examination was interpreted and the report reviewed and electronically signed by: CLEVE SHERIFF MD on Mar 08 2020 2:29PM EST Normal [facility] CT CERVICAL SPINE WO IVCONon 03-08-2020 CT CERVICAL SPINE WO IVCON Final Report DATE OF EXAM: Mar 08 2020 3:36PM [facility] 0505 - CT CERVICAL SPINE WO [...] Counting reference: Craniocervical junction. Anatomic Variants: None. Computer Operations Specialist (topogram) images: Unremarkable. Alignment: Alignment is within [...] vertebrae with counting from the craniocervical junction. Director Of Archives[facility] Transcribe Date/Time: Mar 08 2020 3:38P Dictated by : GEO CONTEH MD This examination was interpreted and the report reviewed and electronically signed by: GEO CONTEH MD on Mar 08 2020 3:55PM EST Normal [facility] CTA HEAD W IVCONon 0 CTA HEAD W IVCON Final Report DATE OF EXAM: Mar 08 2020 6:52PM [facility] 0022 - CTA HEAD W IVCON [...] is negligible contrast enhancement on this exam. Director Of Archives: [facility] Transcribe Date/Time: Mar 08 2020 7:19P Dictated by : CHARLES FAY MD This examination was interpreted and the report reviewed and electronically signed by: CHARLES FAY MD on Mar 08 2020 7:29PM EST Normal [facility] CTA NECK W IVCONon 0 CTA NECK W IVCON Final Report DATE OF EXAM: Mar 08 2020 6:52PM [facility] 0024 - CTA NECK W IVCON [...] is negligible contrast enhancement on this exam. Director Of Archives: [facility] Transcribe Date/Time: Mar 08 2020 7:19P Dictated by : CHARLES FAY MD This examination was interpreted and the report reviewed and electronically signed by: CHARLES FAY MD on Mar 08 2020 7:29PM EST Normal [facility] Gas + CO Pnl BldVon 03-08-20 20 BASE DEFICIT, VENOUS -3.9 mmol/L Low -2-0 [facility] Comment on above: Order Comment: Speci men Type: BLOOD SPECIMEN Performed By: #### 5 8410-2 #### [facility] CLIA [id number] [address] [place] [address] Carboxyhemoglobin (BldV) [Mass fraction] 1.2 % Normal Non Smoker: <2.1, Smoker: 2-8 [facility] Comment on above: Order Comment: Speci men Type: BLOOD SPECIMEN Performed By: #### 5 8410-2 #### [facility] CLIA [id number] [address] [place] [address] CO2 [Moles/Vol] 22.0 mmol/L Low 25-29 [facility] Comment on above: Order Comment: Speci men Type: BLOOD SPECIMEN Performed By: #### 5 8410-2 #### [facility] CLIA [id number] [address] [place] [address] CO2 adjusted to patient's actual temperature (BldV) [Partial pressure] 41 mmHg Low 42-55 [facility] Comment on above: Order Comment: Speci men Type: BLOOD SPECIMEN Performed By: #### 5 8410-2 #### [facility] CLIA [id number] [address] [place] [address] FIO2 21 % Normal [facility] Comment on above: Order Comment: Speci men Type: BLOOD SPECIMEN Performed By: #### 5 8410-2 #### [facility] CLIA [id number] [address] [place] [address] HCO3 (Bld) [Moles/Vol] 20.8 mmol/L Low 24-28 [facility] Comment on above: Order Comment: Speci men Type: BLOOD SPECIMEN Performed By: #### 5 8410-2 #### [facility] CLIA [id number] [address] [place] [address] Hemoglobin (Bld) [Mass/Vol] 14.6 g/dL Normal 11.5-15.5 [facility] Comment on above: Order Comment: Speci men Type: BLOOD SPECIMEN Performed By: #### 5 8410-2 #### [facility] CLIA [id number] [address] [place] [address] Methemoglobin (Bld) [Mass fraction] 0.3 % Normal 0.0-1.5 [facility] Comment on above: Order Comment: Speci men Type: BLOOD SPECIMEN Performed By: #### 5 8410-2 #### [facility] CLIA [id number] [address] [place] [address] O2 THERAPY NC = Nasal Cannula Normal [facility] Comment on above: Order Comment: Speci men Type: BLOOD SPECIMEN Performed By: #### 5 8410-2 #### [facility] CLIA [id number] [address] [place] [address] Oxygen adjusted to patient's actual temperature (BldV) [Partial pressure] 40 mmHg Normal 35-45 [facility] Comment on above: Order Comment: Speci men Type: BLOOD SPECIMEN Performed By: #### 5 8410-2 #### [facility] CLIA [id number] [address] [place] [address] Oxygen saturation in Blood 44.8 % Low 60-85 [facility] Comment on above: Order Comment: Speci men Type: BLOOD SPECIMEN Performed By: #### 5 8410-2 #### [facility] CLIA [id number] [address] [place] [address] Oxyhemoglobin (BldV) [Mass fraction] 44 % Low 60-85 [facility] Comment on above: Order Comment: Speci men Type: BLOOD SPECIMEN Performed By: #### 5 8410-2 #### [facility] CLIA [id number] [address] [place] [address] pH adjusted to patient's actual temperature (BldV) 7.33 Normal 7.32-7.42 [facility] Comment on above: Order Comment: Speci men Type: BLOOD SPECIMEN Performed By: #### 5 8410-2 #### [facility] CLIA [id number] [address] [place] [address] HIGH SENSITIVITY TROPONIN To n 03-08-2020 HIGH SENSITIVITY MAXIMILIANO 39 ng/L High <12 [facility] Comment on above: Order Comment: [...] MACE. Performed By: #### 5 8410-2 #### [facility] CLIA [id number] [address] [place] [address] HIGH SENSITIVITY MAXIMILIANO 41 ng/L High <12 [facility] Comment on above: Order Comment: [...] MACE. Performed By: #### 5 8410-2 #### [facility] CLIA [id number] [address] [place], [place] [id number] [facility] HOSPon 03-08-2020 HOSP Patient:Ryanne Shirley MRN: Height:5' 6(1.676 m) Weight:219 lb 4.8 oz (99.474 kg) [...] lispro pen (rapid acting) (HumaLOG KWIKPEN) pill machine feed operator (patient-specific) ondansetron 4 mg tab(s) (ZOFRAN) nystatin [...] without esophagitis [K21.9] Coronary artery disease involving [place] coronary artery of [place] heart without angina pectoris [I25.10] Other constipation [K59.09] Acute right MCA stroke (HCC) [I63.511] Acute kidney injury superimposed on chronic kidney disease (HCC) [N17.9, N18.9] Sinus tachycardia [R00.0] Fall [W19.XXXA] Leukocytosis [D72.829] Fever [R50.9] Elevated troponin [R77.8] Closed left ankle fracture [S82.892A] Respiratory tract infection due to COVID-19 virus [U07.1, J98.8] Allergies: Sofia Inhibitors Actos [Pioglitazone] Buspar [Buspirone] Crestor [Rosuvastatin Calcium] Glimepiride Glipizide Lexapro [Escitalopram Oxalate] Meloxicam Metformin Nsaids (Non-Steroidal Anti-Inflammatory Drug) Prednisone Seroquel [Quetiapine] Date Verified: 03/19/20 Lab Values Lab Value Units Date High Low POTA* 3.9 mmol/L 03/18/2020 5.1 3.7 YANNICK* 38.7 % 03/19/2020 46.0 36.0 Progress Notes (): Lianne Ansari RT, Tech 03/08/2020 10:34 PM Signed Radiology Service [...] Stroke Mechanism: METRICS: Initial NIHSS Score: 20 Vadim Coma Scale Totals (Calculated): 14 Date Patient [...] and IBS who presents as transfer from [place] with findings of acute R MCA stroke. [...] but no prior deficits. In ED at [place], stroke eval performed with CT findings of R caudate, insula and frontal evolving infarcts. ASPECTS score 5. CTA nondiagnostic as contrast infiltrated in arm and IV access lost during scan. Central line placed at [place] for access. Patient out of window for [...] by XR. Patient subsequently transferred here to [facility] for further stroke workup and [...] - COLONOSCOPY usually had some polyps 2008 FAMILY HISTORY Problem Relation Age of Onset [...] neuropathy, without long-term current use of insulin ([facility] 06/04/2016 - Present Current Assessment AND Plan [...] -- 03/09/20 0600 activity - mobilize patient (wi,oh) 03/08/20 2215 pneumatic compression stockings (wi,mt) VTE Prophylaxis: VTE prophylaxis appropriate Critical Care Time Spent: 50 minutes SIGNATURE: Caro Wen PA-C PATIENT NAME: Lisa Shirley DATE: March 09, 2020 TIME: 3:54 AM PAGER/CONTACT #: Attending Note I have personally performed a face to face assessment of the patient and have reviewed the PA/COMMUNITY PRODUCT SPECIALIST note. Signature: Akin Schwab, Previous Version Caro Wen PA-C 03/08/2020 11:59 PM Edited Patient is a 74 year old female with past medical history significant for DM type II, HTN, CKD stage 3, HLD, SEE, major depressive disorder, GERD, Insomnia, and IBS who presents as transfer from [place] with findings of acute R MCA stroke. [...] but no prior deficits. In ED at [place], stroke eval performed with CT findings of R caudate, insula and frontal evolving infarcts. ASPECTS score 5. CTA nondiagnostic as contrast infiltrated in arm and IV access lost during scan. Central line placed at [place] for access. Patient out of window for [...] by XR. Patient subsequently transferred here to [facility] for further stroke workup and management. Previous Version Caro Wen PA-C 03/09/2020 12:06 AM Written NEUROLOGICAL INTENSIVE CARE UNIT HISTORY AND PHYSICAL (STROKE CARE PATH) REASON FOR STROKE EVALUATION: Left Sided Weakness, Dysarthria and Facial droop REASON FOR NEUROLOGICAL ICU ADMISSION: Acute R MCA stroke Stroke Mechanism: METRICS: Initial NIHSS Score: 20 [place] Coma Scale Totals (Calculated): 14 Date Patient Last Known Well: 03/06/20 Date of Patient Arrival at THIS Facility: 03/08/20 Time of Patient Arrival at THIS Facility: 2154 Pre-admission: Was patient on antithrombotic agent prior to admission: No Premorbid Modified Aurora Score: 0=0 - No symptoms at all Baseline Functional Status (i.e. ADL's, Ambulatory Status, Cognitive Issues): Lives alone, ambulatory at baseline, AANDOx3. Subjective HPI: Patient is a 74 year old female with past medical history significant for DM type II, HTN, CKD stage 3, HLD, SEE, major depressive disorder, GERD, Insomnia, and IBS who presents as transfer from [place] with findings of acute R MCA stroke. [...] but no prior deficits. In ED at [place], stroke eval performed with CT findings of R caudate, insula and frontal evolving infarcts. ASPECTS score 5. CTA nondiagnostic as contrast infiltrated in arm and IV access lost during scan. Central line placed at [place] for access. Patient out of window for [...] by XR. Patient subsequently transferred here to [facility] for further stroke workup and [...] with Staff Physician, Dr. Schwab. RT Ranjan, Tech 03/08/2020 11:46 PM Signed Radiology Service Progress [...] Ranjan March 08, 2020 11:46 PM Perla Davis, RN, RN 03/09/2020 1:00 AM Signed Nursing Progress: Topic: RESTRAINT NON-VIOLENT PATIENT NAME: Lisa Shirley PATIENT LOCATION: [place] [address] [address]* The patient demonstrates Confusion, Attempting to Remove [...] RT Ranjan March 09, 2020 1:06 AM MARYELLEN KERN 03/09/2020 2:39 AM Signed PHARMACY VANCOMYCIN DOSING [...] [place] any questions[place] [phone]. Age: [age] year old Allergies: ALLERGIES Allergen [...] Readings: Date: Ht: 03/08/2020 167.6 cm (5' 6) CrCl: 53.4 mL/min Temp (24hrs), Av.4 ?C [...] her, including future surgical plan for functional mandaeism. Anticipate surgery 03/12/2020 depending on ongoing evaluation and recovery. Leland Herrera MD HPI: 74 year old female presented to [facility] as a transfer from [place] for stroke with orthopaedics being consulted for [...] ?F) Resp 19 Ht 167.6 cm (5' 6) Wt 107.2 kg (236 lb 5.3 oz) [...] Orthopaedic Surgery 03/09/2020 3:55 AM Previous Version Xi Chahal RT, Tech 03/09/2020 4:59 AM Signed Radiology Service [...] RT Ranjan March 09, 2020 4:57 AM Chalino Gupta RT, [employer] 03/09/2020 6:38 AM Signed Called for MRI screening form. Tahmina Hernandez PT 03/09/2020 9:05 AM Signed PHYSICAL THERAPY MISSED VISIT SERVICE DATE: 03/09/2020 SERVICE TIME: 903 to 0904 ROOM: [place] [address] Attempted Evaluation. Patient not seen due to Illness. Hold today per JONNY Sandhu. Will continue to follow patient as able. SIGNATURE: Tahmina Hernandez PT PATIENT NAME: Lisa Shirley DATE: March 09, 2020 TIME: 9:04 AM Sarita Escobedo RN, RN 03/09/2020 9:10 AM Signed Nursing Progress: Topic: RESTRAINT NON-VIOLENT PATIENT NAME: Lisa Shirley PATIENT LOCATION: [place] [address] [address]* The patient demonstrates Confusion, Attempting to Remove [...] - 90 Grams protein determined by: 1.2-1.5 g/kg;[place] Body Weight Care Plan: Change diet to [...] DIET NPO Anthropometrics: Height: 167.6 cm (5' 6) Weight: 107.7 kg (237 lb 7 oz) [...] March 09, 2020 TIME: 11:31 AM PAGER: [phone] Quynh Robertson, Pharmacist 03/09/2020 12:55 PM Signed MEDICATION HISTORY AND MEDICATION RECONCILIATION Patient Name:Geoffrey Shirley : 1945 Source of history:Pharmacy records: [facility]; [facility] ([phone]) Medication Nonadherence Identified: No barriers noted The above information represents the best possible medication history: Yes ; unable to verify with patient at this time, no family identified Reconciliation completed? Yes All FLAT DRIER medications addressed by LIP Additional comments: Mifqa-wj-Ylrgkefsc Medication List Adjustments: Medication Regimen Changes: ? [...] Sensitivity - Seroquel [Quetiapin* Intolerance Preferred Pharmacy: [id number] Current FLAT DRIER Medications: Prior to Admission medications as of [...] March 09, 2020 12:50 PM Osmar Calloway, CCC-DYEING MACHINE FEEDER, CCC/DYEING MACHINE FEEDER 03/09/2020 2:05 PM Signed Speech Therapy Speech Evaluation Clinical Swallow Evaluation SERVICE DATE: 03/09/2020 SERVICE TIME: 1315 to 1345 ROOM: [id number] IMPRESSION: Patient demonstrates oropharyngeal dysphagia which is [...] stress, sleep disorder, Stroke, DM Continue skilled DYEING MACHINE FEEDER services due to : Dysphagia, Communication difficulties, [...] 0, Mildly Thick Liquids IDDSI Level 2 (Mahnomen Thick), Puree Compensatory Strategies Utilized During Assessment: [...] cerebral infarction Interventions Provided: Speech Language Eval (50717);Clinical Swallow Evaluation (18279) $ Speech Language Eval (74380) Billed Units: 1 unit $ Clinical Swallow Evaluation (02685) Billed Units: 1 unit Total Treatment Time (minutes): 30 Home Environment Prior Functional Level: Within Functional Limits Assistance Available: multimedia artist Prior Swallowing Function/Diet Textures: Regular Consistency;Thin Liquids IDDSI Level 0 Please see discipline specific clinical documentation flowsheet for complete details for this therapy evaluation/treatment. SIGNATURE: Osmar Calloway [facility]-DYEING MACHINE FEEDER PATIENT NAME: Lisa Shirley DATE: March 09, [...] in DKA, No LVO, patient admitted to [facility] NICU. Patient also had left trimal fracture, was reduced by ortho team, splinted. Today, patient had speech consult, required corpak placement, transitioned to subcutaneous insulin from insulin drop, DC vanc and zosyn Shalom Lira DO, DO 03/09/2020 2:52 PM Written NEURO ICU PROGRESS NOTE DATE OF ADMISSION: 03/08/2020 Subjective Hospital Course: 03/09: Presented from OSH with concern for acute R MCA stroke. Found down at home, elevated CK, patient was in DKA, No LVO, patient admitted to [facility] NICU. Patient also had left trimal fracture, was reduced by ortho team, splinted. Today, patient had speech consult, required corpak placement, transitioned to subcutaneous insulin from insulin drop, DC vanc and zosyn Events Since Last Note: Transitioned to subcutaneous insulin, corpak placed, tube feeds started Objective BP 169/85 Pulse 95 Temp 37.3 ?C (99.1 ?F) Resp 19 Ht 167.6 cm (5' 6) Wt 107.7 kg (237 lb 7 oz) [...] Is Patient Clinically Ready to Transfer to [facility] or SDU?: No Discharge Planning: To be determined PERSONAL INVOLVEMENT IN CARE: Reviewing initiation, responses and adjustments to therapies, coordination of care, and updating family with Staff Physician, Dr. Shcwab. Shalom Lira DO, DO 03/09/2020 2:52 PM [...] PT/OT/ST - Stroke neuro c/s Shalom Lira , DO 03/09/2020 2:54 PM Written Assessment: S/p fall at home w/ prolonged downtime. CK 1,111 at OSH, Troponin elevation PLAN: - IVF resuscitation - Monitor renal function - Fu trop and CK to ensure trending down Shalom Lira , DO 03/09/2020 2:55 PM Written Assessment: Glucose >500, ketones >2.00, Anion gap of 21 PLAN: - Insulin gtt transitioned to subcutaneous -Corpak placed on tube feeds - Endo c/s in AM Shalom Walkerrosy , DO 03/09/2020 2:55 PM Written Assessment: bilateral malleolar fracture PLAN: - s/p reduction and casting -Ortho following Shalom Walkerrosy , 03/09/2020 2:56 PM Written Assessment: 41-->39-->58. Suspect type II, demand ischemia PLAN: - Trend to ensure coming down Shalom Walkerrosy , 03/09/2020 2:59 PM Signed SERVICE DATE: 03/09/2020 SERVICE TIME: 2:59 PM NEURO ICU PROGRESS NOTE DATE OF ADMISSION: 03/08/2020 Subjective Hospital Course: 03/09: Presented from OSH with concern for acute R MCA stroke. Found down at home, elevated CK, patient was in DKA, No LVO, patient admitted to [facility] NICU. Patient also had left trimal fracture, was reduced by ortho team, splinted. Today, patient had speech consult, required corpak placement, transitioned to subcutaneous insulin from insulin drop, DC vanc and zosyn Events Since Last Note: Transitioned to subcutaneous insulin, corpak placed, tube feeds started Objective BP 169/85 Pulse 95 Temp 37.3 ?C (99.1 ?F) Resp 19 Ht 167.6 cm (5' 6) Wt 107.7 kg (237 lb 7 oz) [...] Is Patient Clinically Ready to Transfer to [facility] or SDU?: No Discharge Planning: To be [...] neuropathy, without long-term current use of insulin ([facility] 06/04/2016 - Present Current Assessment AND Plan [...] -- 03/09/20 0600 activity - mobilize patient ([place], [place]) 03/08/20 2215 pneumatic compression stockings ([place], [place]) VTE Prophylaxis: VTE prophylaxis appropriate Plan [...] NON-VIOLENT PATIENT NAME: Lisa Shirley PATIENT LOCATION: [id number]/[place] [address]* The patient demonstrates Attempting to Remove Medical [...] RT RIMA March 09, 2020 9:07 PM Ortega Seay MD 03/12/2020 10:37 AM Signed [facility] - Consultation PATIENT NAME: LSIA SHIRLEY CSN: [id number] DATE OF : 1945 SEX/AGE: F/74 PATIENT TYPE: I HOSP SVC: INTM LOCATION: [id number] DATE OF SERVICE: 03/10/2020 TIME OF SERVICE: 10:10 AM REFERRING PHYSICIAN: ASHLEIGH THURSTON REASON FOR CONSULTATION: Fever, leukocytosis, COVID-19 infection, antibiotic management. HISTORY OF PRESENT ILLNESS: This patient is a 74-year-old woman with multiple medical problems including diabetes mellitus type 2, obesity, irritable bowel syndrome, previous stroke. She is confused and the history is obtained from reviewing the chart. She apparently presented to [facility] with an acute right MCA stroke. She was found down at home and police did a welfare check and found her down on the ground at home. She is noted to have left ankle bruising and swelling. In the ER at [place], she had a CT of the head [...] was transferred to the Neuro ICU at [facility]. Her initial white blood cell count was [...] with you. Ortega Seay MD, MS, FACP, [facility] Infectious Disease RRW:jacklyn /[id number] Marixa Roman RT, Tech 03/10/2020 5:10 AM Signed Radiology Service [...] ?F) Resp 21 Ht 167.6 cm (5' 6) Wt 107.7 kg (237 lb 7 oz) [...] Surgery March 10, 2020 Previous Version Kathryn Rose, RN, RN 03/10/2020 11:54 AM Signed Patient has positive and negative covid results in the computer. According to farm assistant report patient was to stay in NSICU. [...] TIME: 11:46 AM PRIMARY TEAM ACCEPTING TRANSFER: Brenda Roque 03/09: Presented from OSH with concern for acute R MCA stroke. Found down at home, elevated CK, patient was in DKA, No LVO, patient admitted to [facility] NICU. Patient also had left trimal [...] and IBS who presents as transfer from [place] with findings of acute R MCA stroke. [...] but no prior deficits. In ED at [place], stroke eval performed with CT findings of R caudate, insula and frontal evolving infarcts. ASPECTS score 5. CTA nondiagnostic as contrast infiltrated in arm and IV access lost during scan. Central line placed at [place] for access. Patient out of window for [...] by XR. Patient subsequently transferred here to [facility] NSICU for further stroke workup and [...] Neuropathy, Without Long-Term Current Use of Insulin ([facility]) - 06/04/2016 (B priority) Comment: hba1c 8.5 [...] Coma Associated With Type 2 Diabetes Mellitus ([facility]) - 03/09/2020 Leukocytosis - 03/09/2020 Fever - 03/09/2020 Elevated Troponin - 03/09/2020 Closed Left Ankle Fracture - 03/09/2020 Acute Right Mca Stroke ([facility]) - 03/08/2020 Other Constipation - 06/19/2019 Coronary Artery Disease Involving [place] Coronary Artery of [place] Heart Without Angina Pectoris - 02/04/2019 Gerd [...] 10:21 AM Signed 10:20 AM Consult dictated #[id number] Start remdesivir and decadron for hypoxia and COVID-19. Monitor LFTs and renal function daily. Kathryn Rose, RN, RN 03/10/2020 11:59 AM Signed Patient transferred to [facility]. RN called report to [facility] JONNY Vega. RN called patient's son, Osmany and updated on status and transfer to [facility]. Informed him there are no visitors allowed on that floor. All belongings taken with patient. Blood work obtained prior to transfer. Bedside hand off with [facility] RN completed. myriam Bhagat, RT, Tech 03/10/2020 11:47 AM Signed Radiology [...] Monie March 10, 2020 11:47 AM Elda Isaac, JONNY, RN 03/10/2020 2:07 PM Signed Nursing Progress: Topic: RESTRAINT NON-VIOLENT PATIENT NAME: Lisa Shirley PATIENT LOCATION: [place] [address] [id number]* The patient demonstrates Attempting to Remove Medical [...] 10, 2020 TIME: 2:06 PM JONNY Mcgee, CCC-DYEING MACHINE FEEDER, CCC/DYEING MACHINE FEEDER 03/10/2020 3:25 PM Signed Speech Therapy Treatment SERVICE DATE: 03/10/2020 SERVICE TIME: 1415 to 1435 ROOM: [place] [address]- IMPRESSION: Patient demonstrates oropharyngeal dysphagia which is [...] tolerance;Motivated Current Hospital Course: COVID-19+ transfer from [facility] to [facility] Reason for Hospital Admission: Stroke Rehabilitation Precautions: [...] 0, Mildly Thick Liquids IDDSI Level 2 ([place] Thick) Patient with decreased alertness today Unable [...] following cerebral infarction Interventions Provided: Dysphagia Therapy (56226);Speech Therapy (54408) $ Dysphagia Therapy (22305) Billed Units: 1 unit $ Speech Therapy (94203) Billed Units: 1 unit Training and education provided in: Swallowing Strategies, Dysphagia Management, Motor Speech Skills(Left sided awareness) The following therapeutic skills were used:: Verbal cuing, Visual cuing, Tactile cuing, Repetitive task learning, Education on role of discipline / importance of activity Total Treatment Time (minutes): 220 Home Environment Prior Functional Level: Within Functional Limits Assistance Available: multimedia artist Prior Swallowing Function/ (more content not included)... Normal [facility] KETONES/ACETONE/BHBon 2019 Beta hydroxybutyrate [Moles/Vol] >2.00 High <0.28 [facility] Comment on above: Order Comment: Speci men Type: BLOOD SPECIMEN Performed By: #### B HB ####[facility] LABCLIA [id number] [place] [address] [place] PT Pnl PPPon 03-08-2020 INR Coag (PPP) [Relative time] 1.0 {INR} Normal 0.9-1.3 [facility] Comment on above: Order Comment: Speci men Type: BLOOD SPECIMEN Result Comment: Francia min K Antagonist (VKA) Therapeutic Range: INR 2 to 3 (Target INR of 2.5) Note: For patients treated with VKA drugs, such as warfarin, the [place] College of Chest Physicians 2012 Guideline recommends [...] to 3.5 (target INR of 3). Mellisa CORREA, et al. Chest 2012, 141:7S-47S Caro CORBIN, et al. [facility] 2017, 70: 252-289 Performed By: #### 2 4321-2 #### [facility] CLIA [id number] [address] [place] [address] PT Coag (PPP) [Time] 10.5 s Normal 9.7-13.0 [facility] Comment on above: Order Comment: Speci men Type: BLOOD SPECIMEN Performed By: #### 2 4321-2 #### [facility] CLIA [id number] [address] [place], [place] [id number] SARS-CoV-2 RNA Resp Ql SHLOMO+p tyesha 03-08-2020 SARS-CoV-2 RNA Resp Ql SHLOMO+probe COVID 19 RESULT: SARS-CoV-2 (Agent of COVID-19) Not Detected by PCR. keily SARS-CoV-2 AND Influenza A/B Nucleic Acid Test for use on the keily Shavon System*_[employer]EUA This test has been authorized by the FDA under an Emergency Use Authorization (EUA). [facility] Comment on above: Performed By: #### 5 8410-2 #### [facility] CLIA [id number] [address] [place] [address] OF [place] XR ANKLE 3V AP/LAT/OBL LTon [...] anteriorly and subluxation of the talus posteriorly. Director Of Archives: [facility] Transcribe Date/Time: Mar 08 2020 3:57P Dictated by : MAITE NAVAS MD This examination was interpreted and the report reviewed and electronically signed by: MAITE NAVAS MD on Mar 08 2020 4:00PM EST Normal [facility] XR CHEST 1V FRONTALon 2019 XR CHEST [...] IMPRESSION: No active disease in the chest. Director Of Archives: [facility] Transcribe Date/Time: Mar 08 2020 8:09P Dictated by : SAI HKAN MD This examination was interpreted and the report reviewed and electronically signed by: SAI KHAN MD on Mar 08 2020 8:12PM EST Normal [facility] XR CHEST 1V FRONTAL Final Report DATE OF EXAM: Mar 08 2020 3:55PM LDX 5290 - XR CHEST 1V FRONTAL / PROCEDURE REASON: Altered mental status (AMS), unclear cause Physician Interpretation EXAM 1: CHEST X-RAY CLINICAL HISTORY: Pelvic fx, known or suspected (accession [id number]), Altered mental status (AMS), unclear cause (accession [id number]) TECHNIQUE: AP supine COMPARISON: None available. RESULT: Lines/tubes/devices: None visualized. Heart/mediastinum: Within normal limits. Lungs/pleura: Clear. Bones/soft tissues: Unremarkable. EXAM 2: PELVIS X-RAY HISTORY: Pelvic fx, known or suspected TECHNIQUE: AP supine view. COMPARISON: None available. RESULT: Bilateral hip and sacroiliac joints are maintained. No acute fracture or malalignment. COMBINED IMPRESSION: 1. Chest: No acute findings. 2. Pelvis: No acute fracture or malalignment. Director Of Archives: [facility] Transcribe Date/Time: Mar 08 2020 3:58P Dictated by : JUAN CARLOS VALENZUELA MD This examination was interpreted and the report reviewed and electronically signed by: JUAN CARLOS VALENZUELA MD on Mar 08 2020 3:59PM EST Normal [facility] XR PELVIS 1V APon 03-08-2020 XR PELVIS 1V AP Final Report DATE OF EXAM: Mar 08 2020 3:55PM LDX 5239 - XR PELVIS 1V AP / PROCEDURE REASON: Pelvic fx, known or suspected Physician Interpretation EXAM 1: CHEST X-RAY CLINICAL HISTORY: Pelvic fx, known or suspected (accession [id number]), Altered mental status (AMS), unclear cause (accession [id number]) TECHNIQUE: AP supine COMPARISON: None available. RESULT: Lines/tubes/devices: None visualized. Heart/mediastinum: Within normal limits. Lungs/pleura: Clear. Bones/soft tissues: Unremarkable. EXAM 2: PELVIS X-RAY HISTORY: Pelvic fx, known or suspected TECHNIQUE: AP supine view. COMPARISON: None available. RESULT: Bilateral hip and sacroiliac joints are maintained. No acute fracture or malalignment. COMBINED IMPRESSION: 1. Chest: No acute findings. 2. Pelvis: No acute fracture or malalignment. Director Of Archives: [facility] Transcribe Date/Time: Mar 08 2020 3:58P Dictated by : JUAN CARLOS VALENZUELA MD This examination was interpreted and the report reviewed and electronically signed by: JUAN CARLOS VALENZUELA MD on Mar 08 2020 3:59PM EST Normal [facility] aPTT PPPon 03-08-2020 aPTT Coag (PPP) [Time] 23.2 s Normal 23.0-32.4 [facility] Comment on above: Order Comment: Speci men Type: BLOOD SPECIMEN Performed By: #### 2 4321-2 #### [facility] CLIA [id number] [address] [place] [address] Total 25-OH Vitamin Don 10-25 Total 25-OH Vitamin D 31.3 ng/mL Normal 30.0-100.0 [facility] Comment on above: Performed By: #### 2 5VD1 ####[place] [address] Comprehensive Panelon 2019 Albumin [Mass/Vol] 4.1 g/dL Normal 3.9-4.9 [facility] Comment on above: Performed By: #### L LP14 ####[place] [address] ALP [Catalytic activity/Vol] 95 U/L Normal 34-123 [facility] Comment on above: Performed By: #### L LP14 ####[place] [address] ALT-SGPT Blood 14 U/L Normal 7-38 [facility] Comment on above: Performed By: #### L LP14 ####[place] [address] Anion gap [Moles/Vol] 14 mmol/L Normal 9-18 [facility] Comment on above: Performed By: #### L LP14 ####[place] [address] AST-SGOT Blood 17 U/L Normal 13-35 [facility] Comment on above: Performed By: #### L LP14 ####[facility] [place], [place] [address] Bilirubin Ql (U) 0.5 mg/dL Normal 0.2-1.3 [facility] Comment on above: Performed By: #### L LP14 ####[facility] [place], [place] [address] Calcium [Mass/Vol] 9.5 mg/dL Normal 8.5-10.2 [facility] Comment on above: Performed By: #### L LP14 ####[facility] [place], [place] [address] Chloride [Moles/Vol] 93 mmol/L Low 97-[address] [facility] Comment on above: Performed By: #### L LP14 ####[facility] [place], [place] [address] CO2 Blood 23 mmol/L Normal 22-30 [facility] Comment on above: Performed By: #### L LP14 ####[facility] [place], [place] [address] Creatinine [Mass/Vol] 1.39 mg/dL High 0.58-0.96 [facility] Comment on above: Performed By: #### L LP14 ####[facility] [place], [place] [address] Glucose [Mass/Vol] 309 mg/dL High 74-99 [facility] Comment on above: Result Comment: The [place] Diabetes Association (ADA) provides guidance for cutoff [...] Standards of Medical Care in Diabetes 2016; [place] Diabetes Association. Diabetes Care. 2016;39(Suppl 1). Performed By: #### L LP14 ####[facility] [place], [place] [address] Potassium [Moles/Vol] 3.8 mmol/L Normal 3.7-5.1 [facility] Comment on above: Performed By: #### L LP14 ####[address] [address] Protein [Mass/Vol] 7.7 g/dL Normal 6.3-8.0 [facility] Comment on above: Performed By: #### L LP14 ####[address] [address] Sodium [Moles/Vol] 130 mmol/L Low 136-144 [facility] Comment on above: Performed By: #### L LP14 ####[address] [address] Urea nitrogen [Mass/Vol] 16 mg/dL Normal 7-21 [facility] Comment on above: Performed By: #### L LP14 ####[address] [address] Lipid Profile, [facility] 11-06 FASTING TIME 12 Hrs Normal [facility] Comment on above: Performed By: #### L LPF ####[address] [address] Cholesterol [Mass/Vol] 226 mg/dL High 0-199 [facility] Comment on above: Result Comment: Tota l Cholesterol < 200 mg/dL, Desirable Total Cholesterol 200 to 239 mg/dL, Borderline high Total Cholesterol > 239 mg/dL, High Performed By: #### L LPF ####[address] [address] Cholesterol in HDL [Mass/Vol] 49 mg/dL Normal [facility] Comment on above: Result Comment: Refe rence Range: HDL Cholesterol 40- 59 mg/dL, Acceptable HDL Cholesterol >59 mg/dL, High; Negative risk factor for coronary heart disease HDL Cholesterol <40 mg/dL, Low; Positive risk factor for coronary heart disease Performed By: #### L LPF ####[address] [address] Cholesterol in LDL [Mass/Vol] 139 mg/dL High 0-99 [facility] Comment on above: Result Comment: LDL Cholesterol < 100 mg/dL, Optimal LDL Cholesterol 100 to 129 mg/dL, Near optimal/above optimal LDL Cholesterol 130 to 159 mg/dL, Borderline high LDL Cholesterol 160 to 189 mg/dL, High LDL Cholesterol > 189 mg/dL, Very high Secondary prevention optimal LDL Cholesterol levels are recommended to be < 70 mg/dL Performed By: #### L LPF ####[place] [address] Cholesterol in LDL/Cholesterol in HDL [Mass ratio] 2.84 High 0.00-2.53 [facility] Comment on above: Performed By: #### L LPF ####[place] [address] Cholesterol.total/Cho lesterol in HDL [Mass ratio] 4.61 {ratio} Normal 0.00-5.09 [facility] Comment on above: Performed By: #### L LPF ####[address] [address] Non-HDL Cholesterol 177 mg/dL High 0-129 [facility] Comment on above: Result Comment: Non HDL [...] 100 mg/dL Performed By: #### L LPF ####[address] [address] Triglyceride Blood 191 mg/dL High 0-149 [facility] Comment on above: Result Comment: Trig lycerides < 150 mg/dL, Normal Triglycerides 150 to 199 mg/dL, Borderline high Triglycerides 200 to 499 mg/dL, High Triglycerides > 499 mg/dL, Very high Performed By: #### L LPF ####[address] [address] VLDL Cholesterol 38 mg/dL High 0-29 [facility] Comment on above: Performed By: #### L LPF ####[address] [address] MDRD eGFRon 11-07-2019 GFR/1.73 sq M predicted among non-blacks MDRD (S/P/Bld) [Vol rate/Area] 39.57 mL/min/{1.73_m2} Normal >60mL/min/ 1.73m2 [facility] Comment on above: Result Comment: If t he patient is , multiply the result by 1.210. Performed By: #### L GFR ####[address] [address] Clinical Summary: HMSPatient IDon 09-29-2018 [facility] Work Phone: Office Visit: New - visi t with practice, Rm: [phone] NEGATED: Highlighted rowMRI (magnetic resonance imaging) history of the Lumbar on 07/20/2018 at [facility] Work Phone: NEGATED: Highlighted rowProtein mass conc Done [facility] Work Phone: NEGATED: Highlighted rowxray history of the Lumbar on 02/26/2018 at [facility] Work Phone: CASE MANAGEMon 09-07-2017 CASE MANAGEM HNO ID: [id number] thor: Genie Alfaro ()Service: (none)Author Type: Social WorkerType: Care Mgt Progress [...] with TIAHANDOFF COMMUNICATION:Primary Care Physician: Dr. Aragon LJWSEQHGOJKGFR ARRANGEMENTS:Froylan Hollingsworth has current PCP follow up appointment scheduled and confirmed she willchange if needed. SOC to be sent to PCP.SIGNATURE: ALEJANDRINA ANGUIANO PATIENT NAME: Lisa ShirleyDATE: September 07, 2017 : 6:27 PM PAGER/CONTACT #: [phone] [facility] CASE MGT INIT [facility] 2017 CASE MGT INIT [facility] HNO ID: [id number] thor: Sharon Loomis (Rn), RNService: Care ManagementAuthor Type: Registered NurseType: Care Mgt Initial AssessmentFiled: 09/07/2017 4:52 PMNote Text:CARE MANAGEMENT: ASSESSMENT AND DISCHARGE PLANSERVICE DATE: 09/07/2017SERVICE TIME: 4:07 PMPRIMARY CARE PHYSICIAN:Jaqueline Aragon DO (confirmed) Nr has an appointment in 3 weeks, she will change if needed.ADMISSION STATUS: Observation (pt aware)Needs Prior to Discharge: NoneMEDICAL:Patient/Represe ntative Stated Goals:To have reduction in symptomsTo return home to life as it wasHealth Insurance: MEDICARE A AND B.Health Issues Impacting Discharge Plan: TIALast Admission Date: Previous admit date: 12/25/2010Is this Within the Past 30 days? NoAdvance Directive:Current Advance Directive: NoneCare Buckle Sewer Machine Assisted with AD Completion: No (pt called [...] StraightGlucometerWalkerBP monitorHas the Patient Been in a Nursing Home Facility in the Past 30 days? NoSOCIAL:Living Arrangement: HomeLives With: SpouseFinancial Resources: RetiredPrimary Contact: Extended Emergency Contact InformationPrimary Emergency Contact: Lanre Shirley RAdess: [address] [place] [address] [facility] Fuwttscd: SpouseSecondary Emergency Contact: Ct [facility]inaWaltham Hospitalgiulia Vxfrkidi: GrandchildSupportive: YesOther Important Patient Contacts: NoneCaregiver Assessment:Caregiver [...] - 0I feel financially burdened by my htd-ny-aawkcx expenses for myprescription medication: Disagree completely - [...] 07, 2017 : 4:07 PM PAGER/CONTACT #: [phone] Normal [facility] CBC and Differentialon 09-07 Abs Baso 0.03 k/uL Normal <0.11 [facility] Comment on above: Performed By: #### T NT ####[place] [address] Abs Vance 0.51 k/uL Normal <0.87 [facility] Comment on above: Performed By: #### T NT ####[place] [address] Abs Neut 2.43 k/uL Normal 1.45-7.50 [facility] Comment on above: Performed By: #### T NT ####[place] [address] Basophils/100 WBC Auto (Bld) 0.5 % Normal [facility] Comment on above: Performed By: #### T NT ####[place] [address] Eosinophils 0.06 10*3/uL Normal <0.46 [facility] Comment on above: Performed By: #### T NT ####[place] [address] Eosinophils/100 leukocytes 1.1 % Normal [facility] Comment on above: Performed By: #### T NT ####[place] [address] Erythrocyte distribution width Auto Ratio (RBC) 13.3 % Normal 11.5-15.0 [facility] Comment on above: Performed By: #### T NT ####[place] [address] Erythrocytes (RBC) 4.42 10*6/uL Normal 3.90-5.20 [facility] Comment on above: Performed By: #### T NT ####[place] [address] Hematocrit (HCT) 39.7 % Normal 36.0-46.0 [facility] Comment on above: Performed By: #### T NT ####[place] [address] Hemoglobin mass conc (Bld) 12.8 g/dL Normal 11.5-15.5 [facility] Comment on above: Performed By: #### T NT ####[facility] [address] [place] [address] Lymphocytes 2.45 10*3/uL Normal 1.00-4.00 [facility] Comment on above: Performed By: #### T NT ####[place] [address] Lymphocytes/100 leukocytes 44.7 % Normal [facility] Comment on above: Performed By: #### T NT ####[facility] [address] [place] [address] MCH 29.0 pG Normal 26.0-34.0 [facility] Comment on above: Performed By: #### T NT ####[place] [address] MCHC mass conc (RBC) 32.2 g/dL Normal 30.5-36.0 [facility] Comment on above: Performed By: #### T NT ####[facility] [address] [place] [address] MCV 89.8 fL Normal 80.0-100.0 [facility] Comment on above: Performed By: #### T NT ####[place] [address] Monocytes/100 leukocytes 9.3 % Normal [facility] Comment on above: Performed By: #### T NT ####[place] [address] Neutrophils/100 WBC Auto (Bld) 44.4 % Normal [facility] Comment on above: Performed By: #### T NT ####[place] [address] Platelet mean volume (PMV) 11.6 fL Normal 9.0-12.7 [facility] Comment on above: Performed By: #### T NT ####[place] [address] Platelets 206 10*3/uL Normal 150-400 [facility] Comment on above: Performed By: #### T NT ####[facility] [address] [place] [address] WBC (Leukocytes) 5.48 10*3/uL Normal 3.70-11.00 [facility] Comment on above: Performed By: #### T NT ####[facility] [address] [phone] CNDSon 09-07-2017 CNDS HNO ID: [id number] thor: Cristopher Munoz MDService: [facility] MedicineAuthor Type: PhysicianType: Discharge SummariesFiled: 09/07/2017 5:56 PMNote Text:DISCHARGE SUMMARYPATIENT NAME: Lisa ShirleyMRN: [id number] Information Admission Information ADMIT DATE: 09/05/2017DISCHARGE DATE: 09/07/2017MY DOCTORS AND MEDICAL TEAM:[facility] Doctor: Akbar Mas Care Provider: Kuldeep Babb Medical Team Members: Treatment Team:Attending Provider: JUAN Masonsulting: Ralph Rachel Jr.Physician Map And Chart Mounter: Gabe Tinoco) StrickerMY CONDITION AT DISCHARGE: StableREASON [...] Patient/Parents to call for appointment?: Yes Jaqueline [phone] [place] [address] PCP Requested ReferralAdditional Provider to Provider Information: [...] diabetic neuropathy, without long-termcurrent use of insulin ([facility]) 06/04/2016 - Present Overview hba1c 8.5 on [...] avoid nephrotoxins. Current Assessment AND PlanRecent Labs 509 [id number] 20 19 23CREAT 1.42* 1.47* 1.52*CA 9.3 [...] 09/07/2017 NoneFOLLOW-UP APPOINTMENTS ALREADY SCHEDULED WITH A [facility] PROVIDER:Future AppointmentsDate Time Provider Department [place]10/02/2017 2:30 PM Jaqueline MENDEZ 225 ELYRIDISCHARGE MEDICATION: Current Discharge Medication ListSTART [...] ?F) (Oral) Resp 18 Ht144.8 cm (4' 9) Wt 92.7 kg (204 lb 6.4 oz) [...] PAGER/CONTACT #:DATE: September 07, 2017TIME: 5:53 PM [facility] CONSULTon 09-07-2017 CONSULT HNO ID: [id number] thor: Ralph Rachel Jr.Service: NeurologyAuthor Type: PhysicianType: ConsultsFiled: 09/07/2017 5:20 PMNote Text:CONSULT: NEUROLOGY SERVICESERVICE DATE: 09/07/2017SERVICE TIME: 4:56 PMREASON FOR CONSULT: StrokeREQUESTING PHYSICIAN: Gabe [facility] CARE PHYSICIAN: Ronaldo BabbMauricio Shirley is a pleasant 72 year old right handed female with pastmedical history significant for stroke (6123-njqs-dz residual), HTN, DM,HLD, who presented to [place] [facility] on 09/05/17 following transient onset of:-flashing lights in the nasal visual field of only the right eye ppmippo77 minutes, with associating word finding difficulties and [...] with no afib.Cholesterol, TotalDate Value Ref Range Srluzt7109/06/2017 175 <200 mg/dL FinalComment:<200 mg/dL, Hskxzjjzf998-189 mg/dL, Borderline high>239 mg/dL, High HDL CholesterolDate Value Ref Range Ddynfz0109/06/2017 51 >39 mg/dL FinalComment:40-59 mg/dL, Acceptable>59 mg/dL, High: Negative risk factor for coronary heart disease<40 mg/dL, Low: Positive risk factor for coronary heart disease LDL CholesterolDate Value Ref Range Sjvpvu3909/06/2017 91 <100 mg/dL FinalComment:<100 mg/dL, Dazlvzc262-459 mg/dL, Near optimal/above rhmurtv449-926 mg/dL, Borderline erbq253-066 mg/dL, High>189 mg/dL, Very highSecondary prevention optimal LDL Cholesterol levels are recommended to be< 70mg/dL Triglyceri deDate Value Ref Range Ybvbld1609/06/2017 167 (H) <150 mg/dL FinalComment:<150 mg/dL, Csgerb448-612 mg/dL, Borderline rksr132-399 mg/dL, High>499 mg/dL, Very high Patient was [...] Disp:90 tablet Rfl: 0 09/05/2017 at [facility] medications:zolpidem 10 mg tab(s) (AMBIEN) 10 mg [...] dysarthria; comprehension, naming, repetition intact. Short and correction memory intact. Fund of knowledge grossly normal [...] Temp Temp src Pulse Resp SpO2 Height Yyxypj62/14/18 1600 153/64 36.9 ?C (98.5 ?F) Oral [...] 85 20 95 % 144.8 cm (4' 9) -09/06/17 1800 128/73 36.9 ?C (98.4 ?F) Oral 78 18 95 % - -Body mass index is 44.23 kg/m?.DATA:Diagnostic tests reviewed for today's visit:Most recent labs and imaging results.WBCDate Value09/07/2017 5.48 k/uL/ 6.28 k/uL09/05/2017 6.4 thou/cmm RBCDate Value09/07/2017 4.42 m/uL09/06/2017 4.24 m/uL09/05/2017 4.56 mil/cmm Platelet CountDate Value09/07/2017 206 k/uL09/06/2017 206 k/uL09/05/2017 205 thou/cmm BUN (mg/dL)Date Value09/07/2017 23 Creatinine (mg/dL)Date Value09/07/2017 1.42009/06/2017 1.47009/05/2017 1.52 CBC, Coags, BMP, Mg, PhosRecent Labs 09/06/1804NA 140 141 134*K 4.4 4.1 4.0CHLOR 102 104 102CO2 26 24 24GLUC 156* 71* 102*CA 9.3 9.3 9.6MG 2.1 -- --Liver Function, Amylase, AND LipaseRecent Labs 09/06/1804TPROT 6.7 6.5ALB 4.0 3.9ALT 10 10AST 14 [...] anti-plt therapy. However, patient requesting only one bloodthinner. Thus will d/c ASA and start Plavix [...] September 07, 2017 : 4:56 PM PAGER: [phone] Normal [facility] Comp Metabolic Panelon 09-07 Alanine aminotransferase (ALT) 10 U/L Normal 7-38 [facility] Comment on above: Performed By: #### T NT ####[facility] [address] [place] [address] Albumin 4.0 g/dL Normal 3.9-4.9 [facility] Comment on above: Performed By: #### T NT ####[facility] [address] [place] [address] Alkaline phosphatase (ALP) 60 U/L Normal 32-117 [facility] Comment on above: Performed By: #### T NT ####[facility] [address] [place] [address] Anion gap 12 mmol/L Normal 9-18 [facility] Comment on above: Performed By: #### T NT ####[facility] [address] [place] [address] Aspartate aminotransferase (AST) 14 U/L Normal 13-35 [facility] Comment on above: Performed By: #### T NT ####[facility] [address] [place] [address] Bilirubin (total) 0.5 mg/dL Normal 0.2-1.3 [facility] Comment on above: Performed By: #### T NT ####[facility] [address] [place] [address] Calcium 9.3 mg/dL Normal 8.5-10.2 [facility] Comment on above: Performed By: #### T NT ####[facility] [address] [place] [address] Chloride 102 mmol/L Normal 97-105 [facility] Comment on above: Performed By: #### T NT ####[facility] [address] [place] [address] CO2 26 mmol/L Normal 22-30 [facility] Comment on above: Performed By: #### T NT ####[facility] [address] [place] [address] Creatinine 1.42 mg/dL High 0.58-0.96 [facility] Comment on above: Performed By: #### T NT ####[facility] [address] [place] [address] eGFR (non-black) 37 . Normal [facility] Comment on above: Result Comment: eGFR (Estimated [...] actual GFR. Performed By: #### T NT ####[facility] [address] [place] [address] eGFR (non-black) 44 mL/min/{1.73_m2} Normal [facility] Comment on above: Performed By: #### T NT ####[facility] [address] [place] [address] Glucose mass conc 156 mg/dL High 74-99 [facility] Comment on above: Result Comment: The [place] Diabetes Association (ADA) provides guidance for cutoff [...] Standards of Medical Care in Diabetes 2016, [place] Diabetes Association. Diabetes Care. 2016.39(Suppl 1). Performed By: #### T NT ####[facility] [address] [place] [address] Potassium molar conc 4.4 mmol/L Normal 3.7-5.1 [facility] Comment on above: Performed By: #### T NT ####[facility] [address] [place] [address] Protein 6.7 g/dL Normal 6.3-8.0 [facility] Comment on above: Performed By: #### T NT ####[place] [address] Sodium 140 mmol/L Normal 136-144 [facility] Comment on above: Performed By: #### T NT ####[facility] [address] [place] [address] Urea nitrogen 20 mg/dL Normal 7-21 [facility] Comment on above: Performed By: #### T NT ####[place] [address] MRA BRAIN WO IVCONon 14-2 018 MRA BRAIN WO IVCON * * *Final Report* * *DATE OF EXAM: Sep 07 2017 10:40AM [facility] 0272 - MRA BRAIN WO IVCON / REASON: TIA (transient ischemic attack) * * * * Physician Interpretation * * * * EXAMINATION: MRI BRAIN WO IVCON, MRA BRAIN WO IVCONHISTORY: TIA (transient ischemic attack)TECHNIQUE: Routine noncontrast MRI protocol including diffusion images. 3-D ocxe-yl-jrhbjz MR angiography of the brain without contrast. [...] luminal irregularity in the proximal MCAs and electric motor repairing supervisor bilaterally compatible with intracranial atherosclerotic change. No evidence of flow-limiting stenosis or vessel cut off or filling defect. No aneurysm is detected.IMPRESSION:No acute intracranial infarct. Remote ischemic changes and mild volume loss.Mild luminal irregularity in the middle cerebral arteries and posterior cerebral arteries bilaterally suggests intracranial atherosclerosis. No vessel cut off or filling defect.Director Of Archives: TENISHA Transcribe Date/Time: Sep 07 2017 10:42ADictated by : SEAN FOWLER MDThis examination was interpreted and the report reviewed and electronically signed by: SEAN FOWLER MD on Sep 07 2017 10:45AM [id number] [facility] MRI BRAIN WO IVCONon 14-2 018 MRI BRAIN WO IVCON * * *Final Report* * *DATE OF EXAM: Sep 07 2017 10:40AM [facility] 0294 - MRI BRAIN WO IVCON / REASON: TIA (transient ischemic attack) * * * * Physician Interpretation * * * * EXAMINATION: MRI BRAIN WO IVCON, MRA BRAIN WO IVCONHISTORY: TIA (transient ischemic attack)TECHNIQUE: Routine noncontrast MRI protocol including diffusion images. 3-D jzfo-sv-enirpt MR angiography of the brain without contrast. [...] luminal irregularity in the proximal MCAs and electric motor repairing supervisor bilaterally compatible with intracranial atherosclerotic change. No evidence of flow-limiting stenosis or vessel cut off or filling defect. No aneurysm is detected.IMPRESSION:No acute intracranial infarct. Remote ischemic changes and mild volume loss.Mild luminal irregularity in the middle cerebral arteries and posterior cerebral arteries bilaterally suggests intracranial atherosclerosis. No vessel cut off or filling defect.Director Of Archives: TENISHA Transcribe Date/Time: Sep 07 2017 10:42ADictated by : SEAN FOWLER MDThis examination was interpreted and the report reviewed and electronically signed by: SEAN FOWLER MD on Sep 07 2017 10:45AM [id number] Normal [facility] Magnesiumon 09-07-2017 Magnesium 2.1 mg/dL Normal 1.7-2.3 [facility] Comment on above: Performed By: #### T NT ####[facility] [address] [place], [place] [phone] NURSING PROGon 09-07-2017 NURSING PROG HNO ID: [id number] thor: Tabatha Carmen (Rn), RNService: NursingAuthor Type: Registered NurseType: Nursing Progress NoteFiled: 09/07/2017 7:17 AMNote Text: Nursing Progress NotePatient Name: Lisa ShirleyMRN: [id number] Location: [id number]____ Daily Note:0500-New orders to D/C ambien and xanax.0448-IVF started.0600-IV infiltrated. IV replaced. Patient stated she feeling better butstill a little foggy.This note was completed by: Tabatha Carmen RN [facility] PROGRESSon 09-07-2017 PROGRESS HNO ID: [id number] thor: Cristopher Munoz MDService: [facility] MedicineAuthor Type: PhysicianType: Progress NotesFiled: 09/07/2017 5:47 PMNote Text:SERVICE DATE: 09/07/2017SERVICE TIME: 5:46 PMHOSPITAL MEDICINE PROGRESS NOTENIGHT AND WEEKEND COVERAGE: Nights: Please contact pager [phone].Reason for Admission/Observation: TIAHOSPITAL DAY ZERO: 09/05/2017Presentation: Suspected [...] ?F) (Oral) Resp 18 Ht144.8 cm (4' 9) Wt 92.7 kg (204 lb 6.4 oz) [...] diabetic neuropathy, without long-termcurrent use of insulin ([facility]) 06/04/2016 - Present Overview hba1c 8.5 on [...] avoid nephrotoxins. Current Assessment AND PlanRecent Labs [id number] 20 19 23CREAT 1.42* 1.47* 1.52*CA 9.3 [...] - none indicated (fl,oh)VTE Prophylaxis: VTE prophylaxis appropriatePlan of care discussed with: Patient, Family/Other: Granddaughter, Mirian, JONNY and Consultants: Dr. GalvezATURE: Cristopher Munoz MD PATIENT NAME: Lisa ShirleyDATE: September 07, 2017 : 5:46 PM PAGER/CONTACT #: [facility] PROGRESS HNO ID: [id number] thor: Magui Dalal (Rn), RNService: NursingAuthor Type: [...] see patient.4:10am- MD on unit at bedside. [facility] CBCon 09-06-2017 Erythrocyte distribution width Auto Ratio (RBC) 13.4 % Normal 11.5-15.0 [facility] Comment on above: Performed By: #### C BC, CMP ####[facility] [address] [place] [address]#### LIPB ####[address] [place] [place] [address] Erythrocytes (RBC) 4.24 10*6/uL Normal 3.90-5.20 [facility] Comment on above: Performed By: #### C BC, CMP ####[place] [address]#### LIPB ####[place] [address] Hematocrit (HCT) 37.8 % Normal 36.0-46.0 [facility] Comment on above: Performed By: #### C BC, CMP ####[place] [address]#### LIPB ####[place] [address] [address] [place] [address] Hemoglobin mass conc (Bld) 12.4 g/dL Normal 11.5-15.5 [facility] Comment on above: Performed By: #### C BC, CMP ####[place] [address]#### LIPB ####[place] [address] MCH 29.2 pG Normal 26.0-34.0 [facility] Comment on above: Performed By: #### C BC, CMP ####[place] [address]#### LIPB ####[address] [place] [place] [address] MCHC mass conc (RBC) 32.8 g/dL Normal 30.5-36.0 [facility] Comment on above: Performed By: #### C BC, CMP ####[place] [id number]#### LIPB ####[facility] [address] AveCDaniel [place]ille [phone] MCV 89.2 fL Normal 80.0-100.0 [facility] Comment on above: Performed By: #### C BC, CMP ####[place] [address]#### LIPB ####[place] [address] [address] [phone] Platelet mean volume (PMV) 11.7 fL Normal 9.0-12.7 [facility] Comment on above: Performed By: #### C BC, CMP ####[place] [address]#### LIPB ####[place] [phone] Platelets 206 10*3/uL Normal 150-400 [facility] Comment on above: Performed By: #### C BC, CMP ####[place] [address]#### LIPB ####[place] [phone] WBC (Leukocytes) 6.28 10*3/uL Normal 3.70-11.00 [facility] Comment on above: Performed By: #### C BC, CMP ####[place] [address]#### LIPB ####[place] [address] [address] [phone] Comp Metabolic Panelon 09-06 Alanine aminotransferase (ALT) 10 U/L Normal 7-38 [facility] Comment on above: Performed By: #### C BC, CMP ####[place] [address]#### LIPB ####[place] [address] [address] [phone] Albumin 3.9 g/dL Normal 3.9-4.9 [facility] Comment on above: Performed By: #### C BC, CMP ####[facility] [address] [place] [address]#### LIPB ####[facility] AveCNich[address] [place] [address] Alkaline phosphatase (ALP) 59 U/L Normal 32-117 [facility] Comment on above: Performed By: #### C BC, CMP ####[facility] [address] [place] [address]#### LIPB ####[place] [address] [address] [place] [address] Anion gap 13 mmol/L Normal 9-18 [facility] Comment on above: Performed By: #### C BC, CMP ####[place] [address]#### LIPB ####[place] [address] [address] [place] [address] Aspartate aminotransferase (AST) 14 U/L Normal 13-35 [facility] Comment on above: Performed By: #### C BC, CMP ####[place] [address]#### LIPB ####[place] [address] [address] [place] [address] Bilirubin (total) 0.3 mg/dL Normal 0.2-1.3 [facility] Comment on above: Performed By: #### C BC, CMP ####[place] [address]#### LIPB ####[facility] [place] [address] Calcium 9.3 mg/dL Normal 8.5-10.2 [facility] Comment on above: Performed By: #### C BC, CMP ####[place] [address]#### LIPB ####[facility] [place] [address] Chloride 104 mmol/L Normal 97-105 [facility] Comment on above: Performed By: #### C BC, CMP ####[facility] [address] [place] [address]#### LIPB ####[place] [address] [place] [address] CO2 24 mmol/L Normal 22-30 [facility] Comment on above: Performed By: #### C BC, CMP ####[place] [address]#### LIPB ####[place] [address] Creatinine 1.47 mg/dL High 0.58-0.96 [facility] Comment on above: Performed By: #### C BC, CMP ####[place] [address]#### LIPB ####[place] [address] eGFR (non-black) 43 mL/min/{1.73_m2} Normal [facility] Comment on above: Performed By: #### C BC, CMP ####[place] [address]#### LIPB ####[place] [address] eGFR (non-black) 35 . Normal [facility] Comment on above: Result Comment: eGFR (Estimated [...] GFR. Performed By: #### C BC, CMP ####[place] [address]#### LIPB ####[phone] Glucose mass conc 71 mg/dL Low 74-99 [facility] Comment on above: Result Comment: The [place] Diabetes Association (ADA) provides guidance for cutoff [...] Standards of Medical Care in Diabetes 2016, [place] Diabetes Association. Diabetes Care. 2016.39(Suppl 1). Performed By: #### C BC, CMP ####[place] [address]#### LIPB ####[place] [phone] Potassium molar conc 4.1 mmol/L Normal 3.7-5.1 [facility] Comment on above: Performed By: #### C BC, CMP ####[place] [address]#### LIPB ####[place] [phone] Protein 6.5 g/dL Normal 6.3-8.0 [facility] Comment on above: Performed By: #### C BC, CMP ####[place] [address]#### LIPB ####[place] [phone] Sodium 141 mmol/L Normal 136-144 [facility] Comment on above: Performed By: #### C BC, CMP ####[facility] [address] [place] [phone]#### LIPB ####[facility] [address] [place], [place] [phone] Urea nitrogen 19 mg/dL Normal 7-21 [facility] Comment on above: Performed By: #### C BC, CMP ####[facility] [address] [place] [phone]#### LIPB ####[facility] [address] [place], [place] [phone] HISTORY PHYSICALon 8 HISTORY PHYSICAL HNO ID: [id number] thor: Gabe Tinoco) Gigi: General Internal MedicineAuthor Type: Physician AssistantType: HANDPFiled: 09/05/2017 11:39 PMNote Text: ----Attestation signed by Samantha Anand at 09/10/2017 11:52 [facility] STAFF PHYSICIAN NOTE OF PERSONAL INVOLVEMENT IN CAREI have reviewed the history and physical examination obtained and documented bythe physician assistant laboratory director and I personally participated in the levy components. Chucky discussed the case and management of the patient's care.72 year old female with history of CVA in 2010 who [facility] with[facility]-sided DELEON, had vision disturbance to right eye lasting 10 minutes, speechwas slurred and had difficulty with word finding, resolved within an hour,transferred here for possible TIA. Metformin d/c'ed recently and started onglimepiride a few days ago. Recently noticing blood sugars on lower side withdiaphoresis.Plan:Hypogl ycemia vs TIAClose monitoring sugarsStroke care path. MRI/MRA brain, US b/l carotids, ECHO, tele, FLP, HbA1c.Neuro consultMonitor cr I/Gunnar Anand MD -HOSPITAL MEDICINEHISTORY AND PHYSICAL EXAMPATIENT NAME: Lisa ShirleyMRN: [id number] DATE: 09/05/2017SERVICE TIME: 10:37 [facility] Care Physician: ANGÉLICA Babb COVERAGEPage [phone] for any questions between 5.30p-7.30aASSESSMENT AND PLANActive [...] diabetic neuropathy, without long-termcurrent use of insulin ([facility]) hba1c 8.5 on 06/2017.D/c glimepiride as pt recently started and sounds like she has hadhypoglycemic episodes. Continue januvia +SSI.Recheck HbA1c.SUBJECTIVECHIEF COMPLAINT: HAHPI: This is a 72 year old female with history of CVA in 2010 [facility]-sided DELEON. Occurred around 5pm [...] of care discussed with: Patient and RNSIGNATURE: DONNY BaldwinCDATE: September 05, 2017TIME: 10:37 PM [facility] Hemoglobin A1con 09-06-2017 Glucose mass conc 183 mg/dL [facility] Comment on above: Result Comment: eAG: (Estimated average glucose) is a calculated value from HgbA1c and is senior human resources representative of the average blood glucose level in the last 2-3 month period. Performed By: #### [facility] ####[facility] [place], [place] [phone] Hemoglobin A1c/Hemoglobin.total mass fraction (Bld) 8.0 % High 4.3-5.6 [facility] Comment on above: Performed By: #### H BA1C ####[place] [phone] [facility], [facility] Cholesterol 175 mg/dL Normal <200 [facility] Comment on above: Result Comment: <200 mg/dL, Desirable 200-239 mg/dL, Borderline high>239 mg/dL, High Performed By: #### C BC, CMP ####[place] [address]#### LIPB ####[place] [phone] Fasting Time Unknown Normal [facility] Comment on above: Performed By: #### C BC, CMP ####[place] [id number]#### LIPB ####[place] [phone] HDL Cholesterol 51 mg/dL Normal >39 [facility] Comment on above: Result Comment: 40-5 9 mg/dL, Acceptable>59 mg/dL, High: Negative risk factor for coronary heart disease<40 mg/dL, Low: Positive risk factor for coronary heart disease Performed By: #### C BC, CMP ####[address]#### LIPB ####[place] [phone] LDL Cholesterol 91 mg/dL Normal <100 [facility] Comment on above: Result Comment: <100 mg/dL, Optimal 100-129 mg/dL, Near optimal/above optimal 130-159 mg/dL, Borderline high 160-189 mg/dL, High>189 mg/dL, Very highSecondary prevention optimal LDL Cholesterol levels are recommended to be < 70 mg/dL Performed By: #### C BC, CMP ####[address]#### LIPB ####[place] [address] LDL:HDL Ratio 1.78 Normal <2.54 [facility] Comment on above: Result Comment: Refe diogenesce:1. National Cholesterol Education Program ATP III Guideline At-A-Glance Quick Desk Reference: National Heart, Lung, and Blood Wilson. National Institutes of Health. 2001: NIH Publication No. 01-3305.2. An International Atherosclerosis Society position paper: global recommendations for the management of dyslipidemia: executive summary, Atherosclerosis. 2014: 232(2):410-413. Performed By: #### C BC, CMP ####[place] [address]#### LIPB ####[place] [address] Non HDL Cholesterol 124 mg/dL Normal <130 [facility] Comment on above: Result Comment: <130 mg/dL, Optimal 130-159 mg/dL, Near optimal/above optimal 160-189 mg/dL, Borderline high 190-219 mg/dL, High>219 mg/dL, Very highSecondary prevention optimal non HDL Cholesterol levels are recommended to be < 100 mg/dL Performed By: #### C BC, CMP ####[place] [address]#### LIPB ####[place] [address] TC:HDL Ratio 3.43 Normal <5.10 [facility] Comment on above: Performed By: #### C BC, CMP ####[place] [address]#### LIPB ####[place] [address] Triglyceride 167 mg/dL High <150 [facility] Comment on above: Result Comment: <150 mg/dL, Normal 150-199 mg/dL, Borderline high 200-499 mg/dL, High>499 mg/dL, Very high Performed By: #### C BC, CMP ####[facility] [id number] [address]#### LIPB ####[place] [id number] [place] [phone] VLDL Cholesterol 33 mg/dL High <30 [facility] Comment on above: Performed By: #### C BC, CMP ####[facility] [address]zmh2997 [place] [address]#### LIPB ####[address] [phone] NURSING PROGon 09-06-2017 NURSING PROG HNO ID: [id number] thor: Candie Wray (Rn), RNService: NursingAuthor Type: Registered NurseType: Nursing Progress NoteFiled: 09/06/2017 8:27 PMNote Text: Nursing Progress NotePatient Name: Lisa Rodas FernMRN: [id number] Location: [place] [address]/[id number]____ Daily Note:0800- Patient awake and alert. Denies pain. Neuro assessment WNL. Deniesneeds.1000- Off unit for shebnjh0452- Patient resting comfortably. Denies needs. Call light in reach.1400- No new changes in assessment. Call light in reach.1600- Sitting at bedside. Call light in reach. Tele NSR.1800- No acute s./s of distress. No new changes in neuro assessment.This note was completed by: Candie Wray RN Normal [facility] NURSING PROG HNO ID: [id number] thor: Tabatha CarmenRn), RNService: NursingAuthor Type: Registered NurseType: Nursing Progress NoteFiled: 09/06/2017 7:44 PMNote Text: Nursing Progress NotePatient Name: Lisa Rodas HannahN: [id number] Location: [facility]2N-0268/[id number]____ Daily Note:2230-Neuro assessment WNL. Patient denied headache. Speech Clear.0030-Patient alert and oriented. Calls for assist to bathroom. Neuroassessment WNL. SR on telemetry.0230-Neuro assessment unchanged. SR on telemetry.0430-Neuro assessment unchanged. SR on telemetry,0630-Neuro assessment WNL. Patient denied headache.This note was completed by: Tabatha Carmen RN [facility] NURSING PROG HNO ID: [id number] thor: Tabatha Carmen (Jonny), RNService: NursingAuthor Type: Registered NurseType: Nursing Progress NoteFiled: 09/05/2017 10:11 PMNote Text: Nursing Progress NotePatient Name: Lisa Rodas ClodwickMRN: [id number] Location: [facility]2N-0268/[id number]____ Transfer Note:Patient transferred into room/unit 268/2North in stable condition.Actions taken: No futher actions taken at this time. Will continue tomonitor and check with patient.This note was completed by: Tabatha Carmen RN [facility] NUTRITIONon 09-06-2017 NUTRITION HNO ID: [id number] thor: Lizzy Fairchild (Rd)Service: Nutrition TherapyAuthor Type: Registered DietitianType: NutritionFiled: 09/06/2017 9:10 AMNote Text:NUTRITION THERAPYFOLLOW-UP NOTESERVICE DATE: 09/06/2017SERVICE TIME: 9:05 amAnthropometrics:Current Weight: Weight: 94.3 kg (207 lb 12.8 oz)Body mass index is 41.97 kg/m?.HT/WT/BMI WEIGHT05/26/2016 104.237 kg3/01/2017 102.694 kg5 101.878 kg6 102.785 kg10 100.064 kg10 100.608 kg11 99.066 kg3 96.979 kg4 97.614 kg8% weight loss past year clinically [...] Assess/15 min 1 unitSIGNATURE: Lizzy Fairchild RD, PIA PATIENT NAME: Lisa ShirleyDATE: September 06, 2017 : 9:07 AM Normal [facility] PROGRESSon 09-06-2017 PROGRESS HNO ID: [id number] thor: Robbi Forde: [facility] MedicineAuthor Type: PhysicianType: Progress NotesFiled: 09/06/2017 1:06 PMNote Text:[facility] MEDICINEPROGRESS NOTESERVICE DATE: 09/06/2017SERVICE TIME: 12:55 PMHospital Medicine/Primary Attending: Robbi Forde MDNIGHT AND WEEKEND COVERAGE:Nights: Please contact pager [phone].SubjectiveINTERVAL HPI: Sitting upright in bedside chair, no [...] without long-termcurrent use of insulin (HCC) POA: DmgWmQ4o: 8.5 on 06/2017.D/c glimepiride as pt recently [...] tab(s) (ASPIRIN, ENTERICCOATED) 81 mg ORAL DAILY 09/05/17 2256 -- 09/05/17 2300 heparin 5,000 Units injection (Medical At Risk ) 5,000 Units SUBCUTANEOUS EVERY 12 HOURS 09/05/17 225 --09/05/17 2300 vte non-pharmacologic prophylaxis - none indicated (wi,oh)VTE Prophylaxis: VTE prophylaxis appropriateDisposition: Home tomorrow after Neuro workupPlan of care discussed with: Patient and Case ManagementSIGNATURE: Robbi Forde MD PATIENT NAME: Lisa ShirleyDATE: September 06, 2017 : 12:55 PM PAGER/CONTACT #: [phone] Normal [facility] Troponin Ton 09-06-2017 Troponin T.cardiac mass conc ug/L Normal 0.000-0.[address] [place] [address] Comment on above: Performed By: #### T NT ####[facility] [id number] [phone] Troponin T.cardiac mass conc ug/L Normal 0.000-0.[address] [place] [address] Comment on above: Performed By: #### T NT ####[facility] [id number] [phone] US CAROTID BILon 09-06-2017 Bilirubin (direct) * * *Final Report* * *DATE OF EXAM: Sep 06 2017 11:20AM MDU 1077 - US CAROTID MIKE / REASON: [...] plaque formation distal common proximal internal carotid arteries.Director Of Archives: TENISHA Transcribe Date/Time: Sep 06 2017 11:34ADictated by : Kathryn SALINAS examination was interpreted and the report reviewed and electronically signed by: SANJIV LOPEZ DO on Sep 06 2017 11:45AM [id number] Normal [facility] Vital Signs Date Time Vital Sign Value Performing Clinician Facility 08-08-2021 20:20-0400 Diastolic blood pressure 90 mm[Hg] [facility] Work Phone: 08-08-2021 20:20-0400 Heart rate 90 /min [facility] Work Phone: 08-08-2021 20:20-0400 Respiratory rate 18 /min [facility] Work Phone: 08-08-2021 20:20-0400 SaO2% (BldA) [Mass fraction] 98 % [facility] Work Phone: 08-08-2021 20:20-0400 Systolic blood pressure 160 mm[Hg] [facility] Work Phone: 08-08-2021 17:11-0400 Body height 157.[address] [facility] Work Phone: 08-08-2021 17:11-0400 Body mass index (BMI) [Ratio] 36.9 kg/m2 [facility] Work Phone: 08-08-2021 17:11-0400 Body temperature 98.2 [degF] [facility] Work Phone: 08-08-2021 17:11-0400 Body weight 91.[address] [facility] Work Phone: 03-09-2020 06:39-0500 Body temperature 98.6 [degF] [facility] Comment on above: Order Comment: Speci men Type: VENOUS BLOOD SPECIMEN Performed By: #### 2 4344-4 ####[facility] LABORATORYCLIA [id number] [place] [address] 03-08-2020 18:32-0500 Body temperature 100.76 [degF] [facility] Comment on above: Order Comment: Speci men Type: BLOOD SPECIMEN Performed By: #### 5 8410-2 #### [facility] CLIA [id number] [address] [place] [address] NEGATED: Highlighted [id number] 12:16-0400 BMI (Body Mass Index) 41.36 kg/m2 [facility] Work Phone: NEGATED: Highlighted [id number] 12:16-0400 BP Diastolic 81 mm[Hg] [facility] Work Phone: NEGATED: Highlighted [id number] 12:16-0400 BP Systolic 133 mm[Hg] [facility] Work Phone: NEGATED: Highlighted [id number] 12:16-0400 Height 152.4 cm [facility] Work Phone: NEGATED: Highlighted [id number] 12:16-0400 Height 152 cm Pete Bagley [facility] Work Phone: NEGATED: Highlighted [id number] 12:16-0400 Pulse (Heart Rate) 101 /min Pete Bagley Cli brendan [facility] Work Phone: NEGATED: Highlighted [id number] 12:16-0400 Weight 95.71 kg Pete Bagley [facility] Work Phone: NEGATED: Highlighted [id number] 12:16040 Weight 96 kg Pete Bagley [facility] Work Phone: Encounters Encounter Date Encounter Type Care Provider Facility Start: 02-07-2025 ambulatory Jean-Paul STUART [facility] ity:[facility] Start: 01-19-2025 Registered Referred Jean-Paul Rothman MD [facility] Start: 01-19-2025 End: 01-19-2025 ambulatory Darvin Brice Facility:[facility] Start: 12-19-2024 End: 12-19-[address] Darvin Brice MD Work Phone: [facility] Start: 12-19-2024 End: 12-19-2024 Departed Referred Jean-Paul Rothman MD [facility] Start: 12-19-2024 End: 12-19-2024 ambulatory Jean-Paul STUART Facility:[facility] Start: 11-04-2024 ambulatory Darvin Brice Facility:[facility] Start: 11-04-2024 Registered Referred Jean-Paul Rothman MD [facility] Start: 08-05-2024 End: 08-05-[address] Darvin Brice MD Work Phone: [facility] Work Phone: Start: 08-05-2024 End: 08-05-2024 Departed Referred Jean-Paul Rothman MD [facility]ada Start: 08-05-2024 End: 08-05-2024 ambulatory Darvin Brice Facility:[facility] Start: 05-06-2024 ambulatory Darvin Brice Facility:[facility] Start: 05-06-2024 Registered Referred Jean-Paul Rothman MD - [facility] Start: 05-06-2023 End: 05-06-2023 ambulatory [facility] Work Phone: Start: 05-06-2023 End: 05-06-2023 Departed Referred [facility] Start: 02-05-2023 End: 02-05-2023 ambulatory [facility] Work Phone: Start: 02-05-2023 End: 02-05-2023 Departed Referred [facility] Start: 01-16-2023 End: 01-16-2023 Departed Referred [facility] Start: 01-16-2023 Registered Referred [facility] Start: 01-07-2023 End: 01-07-2023 ambulatory [facility] Work Phone: Start: 01-07-2023 End: 01-07-2023 Departed Referred [facility] Start: 11-07-2022 End: 11-07-2022 ambulatory [facility] Work Phone: Start: 11-07-2022 End: 11-07-2022 Departed Referred [facility] Start: 08-04-2022 End: 08-04-2022 ambulatory [facility] Work Phone: Start: 08-04-2022 End: 08-04-2022 Departed Referred [facility] Start: 05-06-2022 End: 05-06-2022 Departed Referred [facility] Start: 08-08-2021 End: 08-08-2021 Emergency department patient visit [facility] Start: 09-29-2018 End: 09-29-2018 Patient encounter procedure Lorena Griffin MD Work Phone: [facility] Work Phone: Start: 09-05-2017 End: 09-07-[address] [facility] Procedures Date Procedure Procedure Detail Performing Clinician Start: 05-06-2024 Measurement of renal function Dr. Darvin Brice MD Work Phone: Comment on above: GFR Calc Start: 01-16-2023 Urine culture Start: 01-07-2023 Urine culture Start: 08-08-2021 CT of head without contrast Start: 03-19-2020 Antibody screen Comment on above: Order Comment: Speci men Type: SWAB OF INTERNAL NOSE Performed By: #### S APCR #### [facility] CLIA [id number] [address] [place] [address] Start: 03-09-2020 Antibody screen Comment on above: Order Comment: Speci men Type: SWAB OF INTERNAL NOSE Performed By: #### S APCR #### [facility] CLIA [id number] [address] [place] [address] Start: 09-29-2018 End: 09-29-2018 Blood pressure within normal parameters - no follow-up required Lorena Griffin MD Work Phone: Start: 09-29-2018 End: 09-29-2018 BMI documented as above normal parameters - follow-up documented Lorena Griffin MD Work Phone: Start: 09-29-2018 End: 09-29-2018 Documentation of current medications Lorena Griffin MD Work Phone: Start: 09-29-2018 End: 09-29-2018 Pain assessment not documented - reason not given Lorena Griffin MD Work Phone: Start: 09-29-2018 End: 09-29-2018 Tobacco non-user Lorena Griffin MD Work Phone: Plan of Treatment Date Care Activity Detail Author Start: 02-07-2025 Registered Referred Registered Refer [facility] Start: 09-29-2018 End: 09-29-2018 Appointment Appointment [facility] Work Phone: Patient Education ED Seizure New Onset Unknown ... [facility] Work Phone: Patient referral [facility] Work Phone: Immunizations Immunization Date Immunization Notes Care Provider Lou khoury No information available. Pete Diaz [facility] Work Phone: Payers Date Payer Category Payer Medicaid [id number] 2024 Medicare [id number] 2024 Self-pay [id number] 2024 Unknown [id number] Unknown SELF PAY INSURANCE [id number] Unknown [id number] 2.16.8 [id number] Unknown [id number] 2.16.8 [id number] Unknown [id number] 2.16.8 [id number] Unknown [id number] 2.16.8 [id number] Unknown [id number] 2.16.8 [id number] Unknown 1971 2.16.8 [id number] Social History Date Type Detail Facility Start: 08-08-2021 End: 08-08-2021 Assertion Unknown if ever smoked [facility] Work Phone: Start: 03-23-2020 None [facility] Start: 03-27-2020 Alone;- [facility] Start: 08-28-2020 Non-smoker [facility] Start: 1945 Sex Assigned At Female [facility] Start: 08-08-2021 Tobacco smoking stat us NHIS Never smoked tobacco (finding) [facility] Sex Female [facility] Mental Status Date Assessment Result Facility 08-08-2021 Cognitive function Voice/Name [facility] Work Phone: Progress note 11-08-2020 Note Date & Type Note Facility 11-08-2020 Note HNO ID: [id number] Author: Tiffani Braden PA-C Service: ? Author Type: Physician Map And Chart Mounter Type: Progress Notes Filed: 11/08/2020 1:06 PM Note Text: Throat Problem HPI Resident of [facility]. Alisha Akins present for encounter. Lisa Shirley is a 75 year old female here today for Throat Problem. Has had dysphagia with solids/liquids for the past few years. History positive for cerebellar infarction 2019. Pt includes dysphagia started prior to this. Had barium swallow at [facility] 09/2020, which showed mild-moderate oropharyngeal dysphagia as well as significant esophageal retention. GI consult for endoscopy was advised. Is currently on mechanical soft diet at [place] and with diet denies choking, but admits to some regurgitation of non-digested foods. H/o esophageal dilation a few years a go which per patient did not help much. BMs are occasionally constipated, no blood. Does not believe she is having one BM daily, but is not sure. Aide states she is not and last BM [...] had last colonoscopy in June 2017 at [place], [place], which was normal. She was advised [...] to Cymbalta, etc; PREFERS XANAX only tok va 09/08 - History of cerebrovascular accident - Hyperlipidemia - Hypertension - IBS (irritable bowel syndrome) - Idiopathic osteoporosis - Insomnia - Low back pain - Lumbar radiculopathy - Major depressive disorder - Morbid obesity (HCC) (more content not included)... [facility] Progress note 06-29-2020 Note Date & Type Note Facility 06-29-2020 Note HNO ID: [id number] Author: Katia Salmeron Service: ? Author Type: [...] had last colonoscopy in June 2017 at [place], [place], which was normal. She was advised [...] 03/21/2020 BUN 1 (more content not included)... [facility] Evaluation note Note Date & Type Note Facility Evaluation note No assessment information availa ble [facility] Work Phone: Reason for referral (narrative) Note Date & Type Note Facility Reason for referral (narrative) No reason for referral information available [facility] Work Phone: Summary Purpose Family History No [...] Yes August 08, 2021 5:19pm Power of Mend Worker Yes August 08 5:19pm Advance Directive Response Recorded Date/ Time Living Will Yes August 08, 2021 4:19pm Power of Mend Worker Yes August 08 4:19pm Chief Complaint [...] the sender. Hospital Course Note HNO ID: [id number] Author: Donna Rawls MD Service: Hospital Medicine Author Type: [...] (more content not included)... Note HNO ID: [id number] Author: Giulia Patel) Kiki Service: ? Author Type: Nurse Data Typist Type: Anesthesia Procedure Notes Filed: 03/19/2020 1:02 PM Note Text: ANESTHESIOLOGY PROCEDURE NOTE Airway General Information Procedure Start Time/Medication Administration: 03/19/2020 12:40 PM Patient location during procedure: OR Patient identity confirmed: arm band and patient Staffing SERVICE WORKER HELPER: Carmina Patel) Kiki Performed by: SERVICE WORKER HELPER Indications and Patient Condition Preoxygenated: yes Patient [...] (more content not included)... Note HNO ID: [id number] Author: Ria Zamora Service: Orthopaedic Surgery Author Type: Resident Type: Brief Op Note Filed: 03/19/2020 2:31 PM Note Text: Orthopaedic Surgery Brief Operative Note Log ID: [id number] Surgery/Procedure Date: 03/19/2020 Incision/Procedure Start Time: 12:58 PM Incision Close/Procedure End Time: 2:18 PM Surgeon(s)/Proceduralist(s) and Map And Chart Mounter(s): Surgeon(s) and Role: * Leland Herrera - Primary * Lee Zamora - Resident - Assisting No Additional Staff Procedure(s): ORIF of L trimalleolar ankle fracture-dislocation with syndesmotic fixation Anesthesia: General Pre-Op/Pre-Procedure Diagnosis: Closed L trimalleolar ankle fracture Post-Op/Post-Procedure Diagnosis: Same Implant: Implant Name Type Inv. Item Serial No. Virology Teacher Lot No. LRB No. Used Action BIT 2.7MM 125MM DRILL 3 FLUTED QUICK COUPLING NONSTERILE - [id number] Bit BIT 2.7MM 125MM DRILL 3 FLUTED QUICK COUPLING NONSTERILE nVoq [facility] 1 BIT 2MM STAINLESS STEEL 125MM DRILL QU (more content not included)... Procedure Findings Note HNO ID: [id number] Author: Giulia herman (Abhay) Kiki Service: ? Author Type: Nurse Data Typist Type: Anesthesia Procedure Notes Filed: 03/19/2020 1:02 PM Note Text: ANESTHESIOLOGY PROCEDURE NOTE Airway General Information Procedure Start Time/Medication Administration: 03/19/2020 12:40 PM Patient location during procedure: OR Patient identity confirmed: arm band and patient Staffing SERVICE WORKER HELPER: Carmina Patel) Kiki Performed by: SERVICE WORKER HELPER Indications and Patient Condition Preoxygenated: yes Patient [...] (more content not included)... Note HNO ID: [id number] Author: Ria Zamora Service: Orthopaedic Surgery Author Type: Resident Type: Brief Op Note Filed: 03/19/2020 2:31 PM Note Text: Orthopaedic Surgery Brief Operative Note Log ID: [id number] Surgery/Procedure Date: 03/19/2020 Incision/Procedure Start Time: 12:58 PM Incision Close/Procedure End Time: 2:18 PM Surgeon(s)/Proceduralist(s) and Map And Chart Mounter(s): Surgeon(s) and Role: * Leland Herrera - Primary * Lee (Lucio Zamora - Resident - Assisting No Additional Staff Procedure(s): ORIF of L trimalleolar ankle fracture-dislocation with syndesmotic fixation Anesthesia: General Pre-Op/Pre-Procedure Diagnosis: Closed L trimalleolar ankle fracture Post-Op/Post-Procedure Diagnosis: Same Implant: Implant Name Type Inv. Item Serial No. Virology Teacher Lot No. LRB No. Used Action BIT 2.7MM 125MM DRILL 3 FLUTED QUICK COUPLING NONSTERILE - [id number] Bit BIT 2.7MM 125MM DRILL 3 FLUTED QUICK COUPLING NONSTERILE nVoq [facility] 1 BIT 2MM STAINLESS STEEL 125MM DRILL QU (more content not included)... Chief Complaint and Reason for Visit Chief Complaint sei Chief Complaint INTERMEDIATE LAB WOR K INTERMEDIATE LABWORK Chief Complaint LABWORK Chief Complaint LABWORK INTERMEDIATE LAB WORK Chief Complaint LABWORK INTERMEDIATE LAB WORK INTERMEDIATE LAB WORK INTERMEDIATE LABWORK Chief Complaint INTERMEDIATE LAB WOR K INTERMEDIATE LABWORK INTERMEDIATE LAB WORK Chief Complaint Admit Date INTERMEDIATE LAB WORK May 06, 2024 5:00am INTERMEDIATE LAB WORK August 05, 2024 5 :00am Chief Complaint Admit Date LABWORK November 04, 2024 5:00 am INTERMEDIATE LAB WORK December 19, 2024 4:00am INTERMEDIATE LAB WORK January 19 7:35am INTERMEDIATE LAB WORK February 07, 2025 4:00am Additional Source Comments INFORMATION SOURCE (unrecogn ized section and content) DATE CREATED AUTHOR 10/14/2017 [facility] DATE CREATED AUTHOR AUTHOR'S ORGANIZ ATION 05/27/2020 [facility] DATE CREATED AUTHOR AUTHOR'S ORGANIZ ATION 07/31/2020 [facility] DATE CREATED AUTHOR AUTHOR'S ORGANIZ ATION 11/04/2020 [facility] DATE CREATED AUTHOR AUTHOR'S ORGANIZ ATION 06/20/2021 [facility] DATE CREATED AUTHOR AUTHOR'S ORGANIZ ATION 02/25/[address] [facility] Reason for Visit (unrecogniz ed section [...] Care Provider Active [facility] Attending Provider Active Team Status: Active Member Role/Relationship Status Dates Dr. Darvin Brice MD Primary care physician Active Team Status: Active Member Role/Relationship Status Dates Dr. Darvin Brice MD Primary care physician Active Start: November 04, 2024 Jean-Paul STUART MD Attending physician Active Start: November 04, 2024 Team Status: Inactive Member Role/Relationship Status Dates Dr. Darvin Brice MD Primary care physician Active Start: December 19, 2024 End: December 19, 2024 Jean-Paul STUART MD Attending physician Active Start: December 19, 2024 End: December 19, 2024 Jean-Paul STUART MD Referring Provider Active Start: December 19, 2024 End: December 19, 2024 Team Status: Active Member Role/Relationship Status Dates Dr. Darvin Brice MD Primary care physician Active Start: January 19, 2025 Jean-Paul STUART MD Attending physician Active Start: January 19, 2025 Team Status: Active Member Role/Relationship Status Dates Dr. Darvin Brice MD Primary care physician Active Start: February 07, 2025 Jean-Paul STUART MD Attending physician Active Start: February 07, 2025 Jean-Paul STUART MD Referring Provider Active Start: February 07, 2025 FOR RECORDS PERTAINING TO PATIENTS WHO ARE [...] BE BASED ON THE PRIMARY CLINICAL RECORDS. [facility] provides no warranty or guarantee of the accuracy or completeness of information in this document.
[2025-04-17 08:23] LABS: Hematocrit 28.8 % (37-47); Hemoglobin 9.4 g/dL (12.0-15.0); Mean Corp Hgb Conc 32.6 g/dL (32-36); Mean Corpuscular Volume 94.1 fL (81-99); Mean Platelet Vol. 12.4 fl (6.2-12.0); Platelet Count 174 K/mm3 (150-450); RBC Distribution Width CV 15.9 % (11.6-14.6); RBC Distribution Width SD 51.3 fl (35.1-43.9); Red Blood Count 3.06 M/mm3 (4.2-5.4); White Blood Count 5.6 K/mm3 (4.4-11.0)
[2025-04-17 08:52] LABS: Anion Gap 9 (5-15); BUN 20 mg/dL (4-19); BUN/Creat Ratio 15.3 RATIO (10-20); Calcium,Total 7.2 mg/dL (7.6-11.0); Carbon Dioxide 22.3 mmol/L (21.0-32.0); Potassium 3.0 mmol/L (3.3-5.1)
[2025-04-17 09:14] LABS: Chloride 127 mmol/L (98-108); Glucose 35 mg/dL (70-99)
== END ==
LOC: OLS.WCC 05:00
PROVIDERS: PCP Family Medicine; Visit Provider Family Medicine
DX: E11.9 Type 2 diabetes mellitus without complications (principal); R53.83 Other fatigue; I10 Essential (primary) hypertension; N18.30 Chronic kidney disease, stage 3 unspecified
CPT/HCPCS: 36415; 80048; 85027

== ENCOUNTER → 2025-04-21 05:00 | Outpatient (REF) | payer MEDICARE, BC, MEDICAID, SELFPAY ==
--- OUTSIDE RECORDS SUMMARY | 2025-04-21 04:03 | XMS RPT_ITS | CCD ---
Author Organization [facility] Informat ion Partnership [facility] Care Team Providers Care Orthopedic Cast Specialist Name Role Phone SAMANTHA ANAND Unavailable Unavailable JEAN-PAUL MORALES Unavailable Unavailable CRISTOPHER MUNOZ Unavailable UnavailRALPH Nath JR Unavailable Unavailable Gaby CHACKO, Lorena Cunha Unavailable [phone] Darvin Brice MD Primary Care Provider [phone] Jean-Paul Rothman MD Attending Provider Unavailable Dr. [...] Allergy 6 AOF, PT UNSURE OF REACTION [facility] Repository (10 sources) predniSONE; Translations: [PREDNISONE] Drug Allergy 1 AOF, PT UNSURE OF REACTION [facility] Repository (1 source) rosuvastatin; Translations: [ROSUVASTATIN CALCIUM] Drug Allergy 1 AOF [facility] Repository (9 sources) Angiotensin Converting Enzyme (Sofia) Inhibitors; Translations: [SOFIA Inhibitors] Propensity to adverse reactions 1 NEEDS FOLLOW-UP [facility] (8 sources) busPIRone Drug Allergy 1 PT UNSURE OF REACTION [facility] (8 sources) Escitalopram Drug Allergy 1 PT UNSURE OF REACTION [facility] (8 sources) glimepiride Drug Allergy 1 PT UNSURE OF REACTION [facility] (8 sources) glipiZIDE Drug Allergy 1 PT UNSURE OF REACTION [facility] (8 sources) metFORMIN Drug Allergy 1 PT UNSURE OF REACTION [facility] (8 sources) pioglitazone Drug Allergy 1 PT UNSURE OF REACTION [facility] (8 sources) QUEtiapine Drug Allergy 1 PT UNSURE OF REACTION [facility] (8 sources) rosuvastatin Drug Allergy 1 PT UNSURE OF REACTION [facility] (9 sources) NSAIDS (Non-Steroidal Anti-Inflamma; Translations: [NSAIDS (Non-Steroidal Anti-Inflamma] Propensity to adverse reactions 1 PT UNSURE OF REACTION [facility] (1 source) busPIRone Drug Allergy 1 [facility] Repository (1 source) Escitalopram Drug Allergy 1 [facility] Repository (1 source) glimepiride Drug Allergy 1 [facility] Repository (1 source) glipiZIDE Drug Allergy 1 [facility] Repository (1 source) metFORMIN Drug Allergy 1 [facility] Rep[facility] (1 source) pioglitazone Drug Allergy 1 [facility] Rep[facility] (1 source) QUEtiapine Drug Allergy 1 [facility] Rep[facility] (1 source) rosuvastatin Drug Allergy 1 [facility] Repository Medications Current Medications Medication Drug Class(es) [...] 11, 2020 1:00am April 12, 2020 1:02am detention prescription benzodiazepine use Other halfway (current) drug therapy DC after 7 days. [...] Take one tablet three times daily ALPRAZOLAM [id number] Marianna Mcculloughers atorvastatin 80 mg oral tablet [...] as needed for nausea polyethylene glycol 3350 63996 mg powder for oral solution (9 sources) Osmotic Laxative Start: 03-22-2020 take 17 g by mouth once daily Start: 09-17-2018 MIRALAX LENAD T daya as directed as needed POLYETHYLENE GLYCOL 3350 [id number] Marianna Parker microencapsulated potassium chloride 20 meq [...] TABS 1 tablet twice daily OXYCODONE-ACETAMIN OPHEN [id number] Marianna Parker amLODIPine 10 mg oral tablet (1 source) Dihydropyridine Calcium Channel Delfino Start: 09-17-2018 NORVASC 10 MG TABS Take one tablet once daily AMLODIPINE BESYLATE [id number] Marianna Parker aspirin 81 mg delayed release oral tablet (1 source) Platelet Aggregation Inhibitor, Nonsteroidal Anti-inflammatory Drug Start: 09-17-2018 ASPIRIN ADULT LOW STRENGTH TBEC Take one tablet once daily ASPIRIN TBEC [id number] Marianna Parker Calcium (1 source) Phosphate Binder, Calcium Start: 09-17-2018 CALCIUM 600 MG TABS Take one tablet three times daily CALCIUM [id number] Marianna Parker 0.4 ml enoxaparin sodium 100 [...] needed as directed for chest pain NITROGLYCERIN [id number] Marianna Parker oxyCODONE hydrochloride 5 mg oral [...] Take 2 capsules once a day RAMIPRIL [id number] Marianna Parker SITagliptin 100 mg oral tablet (9 sources) Dipeptidyl Peptidase 4 Inhibitor Start: 03-22-2020 End: 04-05-2020 take 1 tablet by mouth once daily Sitagliptin Phosphate 100 MG tablet Discontinued 100 mg PO DAILY March 22, 2020 1:00am April 05, 2020 11:47am diabetes Start: 09-17-2018 JANUVIA 100 MG TABS Take one tablet once daily SITAGLIPTIN PHOSPHATE [id number] Marianna Parker zolpidem tartrate 10 mg oral tablet (1 source) gamma-Aminobutyric Acid-ergic Agonist Start: 09-17-2018 AMBIEN 10 MG TABS Take one tablet once daily at bedtime ZOLPIDEM TARTRATE [id number] Marianna Parker Problems Active Problems Problem Classification [...] Long-term current use of benzodiazepine; Translations: [Other halfway (current) drug therapy] 03-23-2020 Episodic Other aftercare (2 sources) Other halfway (current) drug therapy; Translations: [Other roasterman (current) drug therapy] Onset: 02-08-2025 Episodic Other [...] had COVID prior to being transferred to [facility] acute rehab and was negative prior to transfer. in February 2020 Past or Other Problems Problem Classification Problem Date Documented Da te Episodic/Chronic Unclassified (1 source) Problem Results Test Name Value Interpretation Reference Range Facility Anion gap in Serum or Plasma Ordered By: Jean-Paul Rothman on 02-07-2025 Anion gap [Moles/Vol] 9 mmol/L 09-08 [facility] BUN/creatinine ratioOrdered By: Jean-Paul Rothman on 02-07-2025 Urea nitrogen/Creatinine [Mass ratio] 15.6 mg/mg 02-13 [facility] Basic Metabolic Profile (BMP )on 02-07-2025 BUN/CRE 15.6 RATIO Normal 02-13 [facility] Comment on above: Order Comment: 122.2 Performed By: #### L 500.2500, L100.0500 #### [facility] [address] [place], [address] Calcium [Mass/Vol] 8.4 mg/dL Normal 7.6-11.0 [facility] Comment on above: Order Comment: 122.2 Performed By: #### L 500.2500, L100.0500 #### [facility] [address] [place], [address] Chloride [Moles/Vol] 107 mmol/L Normal 98-108 [facility] Comment on above: Order Comment: 122.2 Performed By: #### L 500.2500, L100.0500 #### [facility] [address] [place], [address] CO2 [Moles/Vol] 23.6 mmol/L Normal 21.0-32.0 [facility] Comment on above: Order Comment: 122.2 Performed By: #### L 500.2500, L100.0500 #### [facility] [address] [place], [address] Creatinine [Mass/Vol] 1.31 mg/dL High 0.70-1.20 [facility] Comment on above: Order Comment: 122.2 Performed By: #### L 500.2500, L100.0500 #### [facility] [address] [place], [address] GAP 9 Normal 5-15 [facility] Comment on above: Order Comment: 122.2 Performed By: #### L 500.2500, L100.0500 #### [facility] [address] [place], [address] GFR/1.73 sq M.predicted among non-blacks MDRD (S/P/Bld) [Vol rate/Area] 42 mL/min/{1.73_m2} Low >60 [facility] Comment on above: Order Comment: 122.2 Result Comment: mL/m in/1.73m2 CKD-EPI Creatinine Equation (2020) Performed By: #### L 500.2500, L100.0500 #### [facility] [address] [place], [address] Glucose [Mass/Vol] 179 mg/dL High 70-99 [facility] Comment on above: Order Comment: 122.2 Performed By: #### L 500.2500, L100.0500 #### [facility] [address] [place], [address] Potassium [Moles/Vol] 4.1 mmol/L Normal 3.3-5.1 [facility] Comment on above: Order Comment: 122.2 Performed By: #### L 500.2500, L100.0500 #### [facility] [address] [place], [address] Sodium [Moles/Vol] 140 mmol/L Normal 133-145 [facility] Comment on above: Order Comment: 122.2 Performed By: #### L 500.2500, L100.0500 #### [facility] [address] [place], [address] Urea nitrogen [Mass/Vol] 20 mg/dL High 4-19 [facility] Comment on above: Order Comment: 122.2 Performed By: #### L 500.2500, L100.0500 #### [facility] [address] [place], [address] CBC-Complete Blood Cnt No Di ffon 02-07-2025 Erythrocyte distribution width (RBC) [Ratio] 12.6 % Normal 11.6-14.6 [facility] Comment on above: Order Comment: 122.2 Performed By: #### L 500.2500, L100.0500 #### [facility] [address] [place], [address] Hematocrit (Bld) [Volume fraction] 33.6 % Low 37-47 [facility] Comment on above: Order Comment: 122.2 Performed By: #### L 500.2500, L100.0500 #### [facility] [address] [place], [address] Hemoglobin (Bld) [Mass/Vol] 10.9 g/dL Low 12.0-15.0 [facility] Comment on above: Order Comment: 122.2 Performed By: #### L 500.2500, L100.0500 #### [facility] [address] [place], [address] MCH (RBC) [Entitic mass] 30.2 pg Normal 27.0-32.0 [facility] Comment on above: Order Comment: 122.2 Performed By: #### L 500.2500, L100.0500 #### [facility] [address] [place], [address] MCHC (RBC) [Mass/Vol] 32.4 g/dL Normal 32-36 [facility] Comment on above: Order Comment: 122.2 Performed By: #### L 500.2500, L100.0500 #### [facility] [address] [place], [address] MCV (RBC) [Entitic vol] 93.1 fL Normal 81-99 [facility] Comment on above: Order Comment: 122.2 Performed By: #### L 500.2500, L100.0500 #### [facility] [address] [place], [address] Platelet mean volume (Bld) [Entitic vol] 11.2 fL Normal 6.2-12.0 [facility] Comment on above: Order Comment: 122.2 Performed By: #### L 500.2500, L100.0500 #### [facility] [address] [place], [address] Platelets (Bld) [#/Vol] 203 10*3/uL Normal 150-450 [facility] Comment on above: Order Comment: 122.2 Performed By: #### L 500.2500, L100.0500 #### [facility] [address] [place], [address] RBC (Bld) [#/Vol] 3.61 10*6/uL Low 4.2-5.4 [facility] Comment on above: Order Comment: 122.2 Performed By: #### L 500.2500, L100.0500 #### [facility] [address] [place], [address] RDW SD 42.8 fl Normal 35.1-43.9 [facility] Comment on above: Order Comment: 122.2 Performed By: #### L 500.2500, L100.0500 #### [facility] [address] [place], [address] WBC (Bld) [#/Vol] 5.4 10*3/uL Normal 4.4-11.0 [facility] Comment on above: Order Comment: 122.2 Performed By: #### L 500.2500, L100.0500 #### [facility] [address] [place], [address] Carbon dioxide, total [Moles /volume] in Central venous bloodOrdered By: Jean-Paul Rothman on 02-07-2025 CO2 [Moles/Vol] 23.6 mmol/L 21.0-32.0 [facility] Chloride assayOrdered By: Kirti Rothman on 02-07-2025 Chloride [Moles/Vol] 107 mmol/L 98-108 [facility] Erythrocyte distribution wid th ratioOrdered By: Jean-Paul Rothman on 02-07-2025 Erythrocyte distribution width (RBC) [Ratio] 12.6 % 11.6-14.6 [facility] Erythrocyte distribution wid th standard deviationOrdered By: Jean-Paul Rothman on 02-07-2025 Erythrocyte distribution width (RBC) [Ratio] 42.8 fl 35.1-43.9 [facility] Glomerular filtration rate ( GFR) estimation/1.73 sq m using serum, plasma, or whole bOrdered By: Jean-Paul Rothman on 02-07-2025 GFR/1.73 sq M.predicted among non-blacks MDRD (S/P/Bld) [Vol rate/Area] 42 mL/min/{1.73_m2} Low >60 [facility] Comment on above: mL/min/1.73m2 CKD-EP I Creatinine Equation (2020) Hematocrit Auto (Bld) [Volum e fraction]Ordered By: Jean-Paul Rothman on 02-07-2025 Hematocrit (Bld) [Volume fraction] 33.6 % Low 37-47 [facility] Hemoglobin A1con 02-07-2025 HbA1c (Bld) [Mass fraction] 7.4 % High <=5.6 [facility] Comment on above: Order Comment: 122.2 Result Comment: Norm al < 5.7 % Prediabetic 5.7 - 6.4 % Diabetic >or= 6.5 % Please note range changes. Performed By: #### L 500.2500, L100.0500 #### [facility] [address] [place] [address]. [place], [place], [id number] Hemoglobin A1c percentageOrd ered By: Jean-Paul Rothman on 02-07-2025 HbA1c (Bld) [Mass fraction] 7.4 % High <5.7 [facility] Comment on above: Normal < 5.7 % Predi abetic 5.7 - 6.4 % Diabetic >or= 6.5 % Please note range changes. Hemoglobin measurementOrdere d By: Jean-Paul Rothman on 02-07-2025 Hemoglobin (Bld) [Mass/Vol] 10.9 g/dL Low 12.0-15.0 [facility] MCV (mean corpuscular volume ) determinationOrdered By: Jean-Paul Rothman on 02-07-2025 MCV (RBC) [Entitic vol] 93.1 fL 81-99 [facility] Mean corpuscular hemoglobin (MCH) determinationOrdered By: Jean-Paul Rothman on 02-07-2025 MCH (RBC) [Entitic mass] 30.2 pg 27.0-32.0 [facility] Mean corpuscular hemoglobin concentration (MCHC) determinationOrdered By: Jean-Paul Rothman on 02-07-2025 MCHC (RBC) [Mass/Vol] 32.4 g/dL 32-36 [facility] Mean platelet volume determi nationOrdered By: Jean-Paul Rothman on 02-07-2025 Platelet mean volume (Bld) [Entitic vol] 11.2 fL 6.2-12.0 [facility] Platelet countOrdered By: Kirti Rothman on 02-07-2025 Platelets (Bld) [#/Vol] 203 10*3/uL 150-450 [facility] Potassium measurement (mass/ volume)Ordered By: Jean-Paul Rothman on 02-07-2025 Potassium (Unsp spec) [Mass/Vol] 4.1 mmol/L 3.3-5.1 [facility] RBC Auto (Bld) [#/Vol]Ordere d By: Jean-Paul Rothman on 02-07-2025 RBC (Bld) [#/Vol] 3.61 10*6/uL Low 4.2-5.4 [facility] Serum creatinine measurement (mass/volume)Ordered By: Jean-Paul Rothman on 02-07-2025 Creatinine [Mass/Vol] 1.31 mg/dL High 0.70-1.20 [facility] Serum glucose measurement (m ass/volume)Ordered By: Jean-Paul Rothman on 02-07-2025 Glucose [Mass/Vol] 179 mg/dL High 70-99 [facility] Serum or plasma calcium yulia urement (mass/volume)Ordered By: Jean-Paul Rothman on 02-07-2025 Calcium [Mass/Vol] 8.4 mg/dL 7.6-11.0 [facility] Serum or plasma urea nitroge n measurement (mass/volume)Ordered By: Jean-Paul Rothman on 02-07-2025 Urea nitrogen [Mass/Vol] 20 mg/dL High 4-19 [facility] Sodium levelOrdered By: Jean-Paul Rothman on 02-07-2025 Sodium [Moles/Vol] 140 mmol/L 133-145 [facility] White blood cell (WBC) count Ordered By: Jean-Paul Rothman on 02-07-2025 WBC (Bld) [#/Vol] 5.4 10*3/uL 4.4-11.0 [facility] Calculated very low density lipoprotein (VLDL) cholesterol measurementOrdered By: Jean-Paul Rothman on 01-19-2025 Calculated very low density lipoprotein (VLDL) cholesterol measurement 23 mg/dL 5-40 [facility] LDL calc ser/plasOrdered By: Jean-Paul Rothman on 01-19-2025 Cholesterol in LDL [Mass/Vol] 97 mg/dL [facility] Comment on above: Muajwflsdb=275-224 m g/dL & Higher Fmay=210 mg/dL or greaterFriedwald Equation for LDL-C Lipid Profileon 01-19-2025 CHOL:HDL 3.59 Normal [facility] Comment on above: Performed By: #### L 500.4100 #### [facility] [address] [place], [address] Cholesterol [Mass/Vol] 167 mg/dL Normal <=200 [facility] Comment on above: Result Comment: Chol esterol level, Desirable <200 mg/dL Borderline high cholesterol 200-239 mg/dL High cholesterol >=240 mg/dL Recommendations of the NCEP Adult Treatment Panel for the following risk-cutoff thresholds for the [place] population. Performed By: #### L 500.4100 #### [facility] [address] [place], [address] Cholesterol in HDL [Mass/Vol] 47 mg/dL Normal [facility] Comment on above: Result Comment: Purvi onal Cholesterol Education Program (NCEP) guidelines: <40 mg/dL: Low HDL-cholesterol (major risk factor for CHD) >= 60 mg/dL: High HDL-cholesterol (negative risk factor for CHD) HDL-cholesterol is affected by a number of factors, e.g. smoking, exercise, hormones, sex and age. Performed By: #### L 500.4100 #### [facility] [address] [place], [address] Cholesterol in LDL [Mass/Vol] 97 mg/dL Normal [facility] Comment on above: Result Comment: Bord nknsey=036-072 mg/dL Higher Wvvs=827 mg/dL or greater Friedwald Equation for LDL-C Performed By: #### L 500.4100 #### [facility] [address] [place], [address] Cholesterol in VLDL [Mass/Vol] 23 mg/dL Normal 5-40 [facility] Comment on above: Performed By: #### L 500.4100 #### [facility] [address] [place], [place], [address] Triglyceride [Mass/Vol] 117 mg/dL Normal [facility] Comment on above: Result Comment: The drugs N-Acetylcysteine and Metamizole may falsely depress this assay. Normal range: <150 mg/dL Borderline High: 150-199 mg/dL High: 200-499 mg/dL Very High: >500 mg/dL Performed By: #### L 500.4100 #### [facility] [address] [place], [address] Screening total cholesterol/ high density lipoprotein (HDL) cholesterol ratioOrdered By: Jean-Paul Rothman on 01-19-2025 Cholesterol.total/Cho lesterol in HDL [Mass ratio] 3.59 {ratio} [facility] Serum or plasma cholesterol in HDL measurement (mass/volume)Ordered By: Jean-Paul Rothman on 01-19-2025 Cholesterol in HDL [Mass/Vol] 47 mg/dL >40 [facility] Comment on above: National Cholesterol Education Program (NCEP) guidelines:<40 mg/dL: Low HDL-cholesterol (major risk factor for CHD)>= 60 mg/dL: High HDL-cholesterol (negative risk factor for CHD)HDL-cholesterol is affected by a number of factors, e.g. smoking, exercise, hormones, sex and age. Serum or plasma cholesterol measurement (mass/volume)Ordered By: Jean-Paul Rothman on 01-19-2025 Cholesterol [Mass/Vol] 167 mg/dL <201 [facility] Comment on above: Cholesterol level, D esirable <200 mg/dLBorderline high cholesterol 200-239 mg/dLHigh cholesterol >=240 mg/dLRecommendations of the NCEP Adult Treatment Panel for the following risk-cutoff thresholds for the [place] population. Triglycerides measurementOrd ered By: Jean-Paul Rothman on 01-19-2025 Triglyceride [Mass/Vol] 117 mg/dL <199 [facility] Comment on above: The drugs N-Acetylcy steine and Metamizole may falsely depress this assay. Normal range: <150 mg/dLBorderline High: 150-199 mg/dLHigh: 200-499 mg/dLVery High: >500 mg/dL Calculated very low density lipoprotein (VLDL) cholesterol measurementOrdered By: Jean-Paul Rothman on 12-19-2024 Calculated very low density lipoprotein (VLDL) cholesterol measurement 16 mg/dL 5-40 [facility] LDL calc ser/plasOrdered By: Jean-Paul Rothman on 12-19-2024 Cholesterol in LDL [Mass/Vol] 91 mg/dL [facility] Comment on above: Qhcezhjtga=119-538 m g/dL & Higher Ashg=161 mg/dL or greaterFriedwald Equation for LDL-C Lipid Profileon 12-19-2024 CHOL:HDL 2.99 Normal [facility] Comment on above: Order Comment: 119.2 Performed By: #### L 500.4100 #### [facility] [address], [address] (838) Cholesterol [Mass/Vol] 161 mg/dL Normal <=200 [facility] Comment on above: Order Comment: 119.2 Result Comment: Chol esterol level, Desirable <200 mg/dL Borderline high cholesterol 200-239 mg/dL High cholesterol >=240 mg/dL Recommendations of the NCEP Adult Treatment Panel for the following risk-cutoff thresholds for the [place] population. Performed By: #### L 500.4100 #### [facility] [address] [place], [address] (846) Cholesterol in HDL [Mass/Vol] 54 mg/dL Normal [facility] Comment on above: Order Comment: 119.2 Result Comment: Purvi onal Cholesterol Education Program (NCEP) guidelines: <40 mg/dL: Low HDL-cholesterol (major risk factor for CHD) >= 60 mg/dL: High HDL-cholesterol (negative risk factor for CHD) HDL-cholesterol is affected by a number of factors, e.g. smoking, exercise, hormones, sex and age. Performed By: #### L 500.4100 #### [facility] [address] [place], [address] (306) Cholesterol in LDL [Mass/Vol] 91 mg/dL Normal [facility] Comment on above: Order Comment: 119.2 Result Comment: Bord usvmjd=362-439 mg/dL Higher Yfal=857 mg/dL or greater Friedwald Equation for LDL-C Performed By: #### L 500.4100 #### [facility] [address] [place], [place], [address] Cholesterol in VLDL [Mass/Vol] 16 mg/dL Normal 5-40 [facility] Comment on above: Order Comment: 119.2 Performed By: #### L 500.4100 #### [facility] [address] [place], [address] Triglyceride [Mass/Vol] 81 mg/dL Normal [facility] Comment on above: Order Comment: 119.2 Result Comment: The drugs N-Acetylcysteine and Metamizole may falsely depress this assay. Normal range: <150 mg/dL Borderline High: 150-199 mg/dL High: 200-499 mg/dL Very High: >500 mg/dL Performed By: #### L 500.4100 #### [facility] [address] [place], [place], [id number] Screening total cholesterol/ high density lipoprotein (HDL) cholesterol ratioOrdered By: Jean-Paul Rothman on 12-19-2024 Cholesterol.total/Cho lesterol in HDL [Mass ratio] 2.99 {ratio} [facility] Serum or plasma cholesterol in HDL measurement (mass/volume)Ordered By: Jean-Paul Rothman on 12-19-2024 Cholesterol in HDL [Mass/Vol] 54 mg/dL >40 [facility] Comment on above: National Cholesterol Education Program (NCEP) guidelines:<40 mg/dL: Low HDL-cholesterol (major risk factor for CHD)>= 60 mg/dL: High HDL-cholesterol (negative risk factor for CHD)HDL-cholesterol is affected by a number of factors, e.g. smoking, exercise, hormones, sex and age. Serum or plasma cholesterol measurement (mass/volume)Ordered By: Jean-Paul Rothman on 12-19-2024 Cholesterol [Mass/Vol] 161 mg/dL <201 [facility] Comment on above: Cholesterol level, D esirable <200 mg/dLBorderline high cholesterol 200-239 mg/dLHigh cholesterol >=240 mg/dLRecommendations of the NCEP Adult Treatment Panel for the following risk-cutoff thresholds for the [place] population. Triglycerides measurementOrd ered By: Jean-Paul Rothman on 12-19-2024 Triglyceride [Mass/Vol] 81 mg/dL <199 [facility] Comment on above: The drugs N-Acetylcy steine and Metamizole may falsely depress this assay. Normal range: <150 mg/dLBorderline High: 150-199 mg/dLHigh: 200-499 mg/dLVery High: >500 mg/dL Anion gap in Serum or Plasma Ordered By: Jean-Paul Rothman on 11-04-2024 Anion gap [Moles/Vol] 7 mmol/L 09-08 [facility] BUN/creatinine ratioOrdered By: Jean-Paul Rothman on 11-04-2024 Urea nitrogen/Creatinine [Mass ratio] 12.4 mg/mg 02-13 [facility] Basic Metabolic Profile (BMP )on 11-04-2024 BUN/CRE 12.4 RATIO Normal 02-13 [facility] Comment on above: Order Comment: 122-2 Performed By: #### L 100.0500, L500.2500, L501.9985 #### [facility] [address] [place], [address] Calcium [Mass/Vol] 8.3 mg/dL Normal 7.6-11.0 [facility] Comment on above: Order Comment: 122-2 Performed By: #### L 100.0500, L500.2500, L501.9985 #### [facility] [address] [place], [address] Chloride [Moles/Vol] 107 mmol/L Normal 98-108 [facility] Comment on above: Order Comment: 122-2 Performed By: #### L 100.0500, L500.2500, L501.9985 #### [facility] [address] [place], [address] CO2 [Moles/Vol] 24.0 mmol/L Normal 21.0-32.0 [facility] Comment on above: Order Comment: 122-2 Performed By: #### L 100.0500, L500.2500, L501.9985 #### [facility] [address] [place], [address] Creatinine [Mass/Vol] 1.11 mg/dL Normal 0.70-1.20 [facility] Comment on above: Order Comment: 122-2 Performed By: #### L 100.0500, L500.2500, L501.9985 #### [facility] [address] [place], [address] GAP 7 Normal 5-15 [facility] Comment on above: Order Comment: 122-2 Performed By: #### L 100.0500, L500.2500, L501.9985 #### [facility] [address] [place], [address] GFR/1.73 sq M.predicted among non-blacks MDRD (S/P/Bld) [Vol rate/Area] 51 mL/min/{1.73_m2} Low >60 [facility] Comment on above: Order Comment: 122-2 Result Comment: mL/m in/1.73m2 CKD-EPI Creatinine Equation (2020) Performed By: #### L 100.0500, L500.2500, L501.9985 #### [facility] [address] [place], [address] Glucose [Mass/Vol] 69 mg/dL Low 70-99 [facility] Comment on above: Order Comment: 122-2 Performed By: #### L 100.0500, L500.2500, L501.9985 #### [facility] [address] [place], [address] Potassium [Moles/Vol] 4.2 mmol/L Normal 3.3-5.1 [facility] Comment on above: Order Comment: 122-2 Performed By: #### L 100.0500, L500.2500, L501.9985 #### [facility] [address] [place], [address] Sodium [Moles/Vol] 138 mmol/L Normal 133-145 [facility] Comment on above: Order Comment: 122-2 Performed By: #### L 100.0500, L500.2500, L501.9985 #### [facility] [address] [place], [address] Urea nitrogen [Mass/Vol] 14 mg/dL Normal 4-19 [facility] Comment on above: Order Comment: 122-2 Performed By: #### L 100.0500, L500.2500, L501.9985 #### [facility] [address] [place], [address] CBC-Complete Blood Cnt No Di ffon 11-04-2024 Erythrocyte distribution width (RBC) [Ratio] 16.9 % High 11.6-14.6 [facility] Comment on above: Order Comment: 122-2 Performed By: #### L 100.0500, L500.2500, L501.9985 #### [facility] [address] [place], [address] Hematocrit (Bld) [Volume fraction] 33.4 % Low 37-47 [facility] Comment on above: Order Comment: 122-2 Performed By: #### L 100.0500, L500.2500, L501.9985 #### [facility] [address] [place], [address] Hemoglobin (Bld) [Mass/Vol] 10.8 g/dL Low 12.0-15.0 [facility] Comment on above: Order Comment: 122-2 Performed By: #### L 100.0500, L500.2500, L501.9985 #### [facility] [address] [place], [address] MCH (RBC) [Entitic mass] 30.7 pg Normal 27.0-32.0 [facility] Comment on above: Order Comment: 122-2 Performed By: #### L 100.0500, L500.2500, L501.9985 #### [facility] [address] [place], [address] MCHC (RBC) [Mass/Vol] 32.3 g/dL Normal 32-36 [facility] Comment on above: Order Comment: 122-2 Performed By: #### L 100.0500, L500.2500, L501.9985 #### [facility] [address] [place], [address] MCV (RBC) [Entitic vol] 94.9 fL Normal 81-99 [facility] Comment on above: Order Comment: 122-2 Performed By: #### L 100.0500, L500.2500, L501.9985 #### [facility] [address] [place], [address] Platelet mean volume (Bld) [Entitic vol] 10.4 fL Normal 6.2-12.0 [facility] Comment on above: Order Comment: 122-2 Performed By: #### L 100.0500, L500.2500, L501.9985 #### [facility] [address] [place], [address] Platelets (Bld) [#/Vol] 213 10*3/uL Normal 150-450 [facility] Comment on above: Order Comment: 122-2 Performed By: #### L 100.0500, L500.2500, L501.9985 #### [facility] [address] [place], [address] RBC (Bld) [#/Vol] 3.52 10*6/uL Low 4.2-5.4 [facility] Comment on above: Order Comment: 122-2 Performed By: #### L 100.0500, L500.2500, L501.9985 #### [facility] [address] [place], [address] RDW SD 59.1 fl High 35.1-43.9 [facility] Comment on above: Order Comment: 122-2 Performed By: #### L 100.0500, L500.2500, L501.9985 #### [facility] [address] [place], [address] WBC (Bld) [#/Vol] 5.4 10*3/uL Normal 4.4-11.0 [facility] Comment on above: Order Comment: 122-2 Performed By: #### L 100.0500, L500.2500, L501.9985 #### [facility] [address] [place], [address] Carbon dioxide, total [Moles /volume] in Central venous bloodOrdered By: Jean-Paul Rothman on 11-04-2024 CO2 [Moles/Vol] 24.0 mmol/L 21.0-32.0 [facility] Chloride assayOrdered By: Kirti Rothman on 11-04-2024 Chloride [Moles/Vol] 107 mmol/L 98-108 [facility] Erythrocyte distribution wid th ratioOrdered By: Jean-Paul Rothman on 11-04-2024 Erythrocyte distribution width (RBC) [Ratio] 16.9 % High 11.6-14.6 [facility] Erythrocyte distribution wid th standard deviationOrdered By: Jean-Paul Rothman on 11-04-2024 Erythrocyte distribution width (RBC) [Ratio] 59.1 fl High 35.1-43.9 [facility] Glomerular filtration rate ( GFR) estimation/1.73 sq m using serum, plasma, or whole bOrdered By: Jean-Paul Rothman on 11-04-2024 GFR/1.73 sq M.predicted among non-blacks MDRD (S/P/Bld) [Vol rate/Area] 51 mL/min/{1.73_m2} Low >60 [facility] Comment on above: mL/min/1.73m2 CKD-EP I Creatinine Equation (2020) Hematocrit Auto (Bld) [Volum e fraction]Ordered By: Jean-Paul Rothman on 11-04-2024 Hematocrit (Bld) [Volume fraction] 33.4 % Low 37-47 [facility] Hemoglobin A1con 11-04-2024 HbA1c (Bld) [Mass fraction] 6.6 % High <=5.6 [facility] Comment on above: Order Comment: 122-2 Result Comment: Norm al < 5.7 % Prediabetic 5.7 - 6.4 % Diabetic >or= 6.5 % Please note range changes. Performed By: #### L 100.0500, L500.2500, L501.4381 #### [facility] [place], [address] Hemoglobin A1c percentageOrd ered By: Jean-Paul Rothman on 11-04-2024 HbA1c (Bld) [Mass fraction] 6.6 % High <5.7 [facility] Comment on above: Normal < 5.7 % Predi abetic 5.7 - 6.4 % Diabetic >or= 6.5 % Please note range changes. Hemoglobin measurementOrdere d By: Jean-Paul Rothman on 11-04-2024 Hemoglobin (Bld) [Mass/Vol] 10.8 g/dL Low 12.0-15.0 [facility] MCV (mean corpuscular volume ) determinationOrdered By: Jean-Paul Rothman on 11-04-2024 MCV (RBC) [Entitic vol] 94.9 fL 81-99 [facility] Mean corpuscular hemoglobin (MCH) determinationOrdered By: Jean-Paul Rothman on 11-04-2024 MCH (RBC) [Entitic mass] 30.7 pg 27.0-32.0 [facility] Mean corpuscular hemoglobin concentration (MCHC) determinationOrdered By: Jean-Paul Rothman on 11-04-2024 MCHC (RBC) [Mass/Vol] 32.3 g/dL 32-36 [facility] Mean platelet volume determi nationOrdered By: eJan-Paul Rothman on 11-04-2024 Platelet mean volume (Bld) [Entitic vol] 10.4 fL 6.2-12.0 [facility] Platelet countOrdered By: Kirti Rothman on 11-04-2024 Platelets (Bld) [#/Vol] 213 10*3/uL 150-450 [facility] Potassium measurement (mass/ volume)Ordered By: Jean-Paul Rothman on 11-04-2024 Potassium (Unsp spec) [Mass/Vol] 4.2 mmol/L 3.3-5.1 [facility] RBC Auto (Bld) [#/Vol]Ordere d By: Jean-Paul Rothman on 11-04-2024 RBC (Bld) [#/Vol] 3.52 10*6/uL Low 4.2-5.4 [facility] Serum creatinine measurement (mass/volume)Ordered By: Jean-Paul Rothman on 11-04-2024 Creatinine [Mass/Vol] 1.11 mg/dL 0.70-1.20 [facility] Serum glucose measurement (m ass/volume)Ordered By: Jean-Paul Rothman on 11-04-2024 Glucose [Mass/Vol] 69 mg/dL Low 70-99 [facility] Serum or plasma calcium yulia urement (mass/volume)Ordered By: Jean-Paul Rothman on 11-04-2024 Calcium [Mass/Vol] 8.3 mg/dL 7.6-11.0 [facility] Serum or plasma urea nitroge n measurement (mass/volume)Ordered By: Jean-Paul Rothman on 11-04-2024 Urea nitrogen [Mass/Vol] 14 mg/dL 4-19 [facility] Sodium levelOrdered By: Jean-Paul Rothman on 11-04-2024 Sodium [Moles/Vol] 138 mmol/L 133-145 [facility] White blood cell (WBC) count Ordered By: Jean-Paul Rothman on 11-04-2024 WBC (Bld) [#/Vol] 5.4 10*3/uL 4.4-11.0 [facility] Anion gap in Serum or Plasma Ordered By: Jean-Paul Rothman on 08-05-2024 Anion gap [Moles/Vol] 12 mmol/L 5-15 [facility] BUN/creatinine ratioOrdered By: Jean-Paul Rothman on 08-05-2024 Urea nitrogen/Creatinine [Mass ratio] 7.8 mg/mg Low 10-20 [facility] Basic Metabolic Profile (BMP )on 08-05-2024 BUN/CRE 7.8 RATIO Low 10- [facility] Comment on above: Order Comment: 122.2 Performed By: #### L 500.2500, L100.0500 #### [facility] [address] [place], [address] Calcium [Mass/Vol] 8.5 mg/dL Normal 7.6-11.0 [facility] Comment on above: Order Comment: 122.2 Performed By: #### L 500.2500, L100.0500 #### [facility] [address] [place], [address] Chloride [Moles/Vol] 104 mmol/L Normal 98-108 [facility] Comment on above: Order Comment: 122.2 Performed By: #### L 500.2500, L100.0500 #### [facility] [address] [place], [address] CO2 [Moles/Vol] 20.3 mmol/L Low 21.0-32.0 [facility] Comment on above: Order Comment: 122.2 Performed By: #### L 500.2500, L100.0500 #### [facility] [address] [place], [address] Creatinine [Mass/Vol] 1.20 mg/dL Normal 0.70-1.20 [facility] Comment on above: Order Comment: 122.2 Performed By: #### L 500.2500, L100.0500 #### [facility] [address] [place], [address] GAP 12 Normal 5-15 [facility] Comment on above: Order Comment: 122.2 Performed By: #### L 500.2500, L100.0500 #### [facility] [address] [place], [address] GFR/1.73 sq M.predicted among non-blacks MDRD (S/P/Bld) [Vol rate/Area] 47 mL/min/{1.73_m2} Low >60 [facility] Comment on above: Order Comment: 122.2 Result Comment: mL/m in/1.73m2 CKD-EPI Creatinine Equation (2020) Performed By: #### L 500.2500, L100.0500 #### [facility] [address] [place], [address] Glucose [Mass/Vol] 99 mg/dL Normal 70-99 [facility] Comment on above: Order Comment: 122.2 Performed By: #### L 500.2500, L100.0500 #### [facility] [address] [place], [address] Potassium [Moles/Vol] 3.9 mmol/L Normal 3.3-5.1 [facility] Comment on above: Order Comment: 122.2 Performed By: #### L 500.2500, L100.0500 #### [facility] [address] [place], [address] Sodium [Moles/Vol] 136 mmol/L Normal 133-145 [facility] Comment on above: Order Comment: 122.2 Performed By: #### L 500.2500, L100.0500 #### [facility] [address] [place], [address] Urea nitrogen [Mass/Vol] 9 mg/dL Normal 4-19 [facility] Comment on above: Order Comment: 122.2 Performed By: #### L 500.2500, L100.0500 #### [facility] [address] [place], [address] CBC-Complete Blood Cnt No Di ffon 08-05-2024 HCT Normal 37-47 [facility] Comment on above: Order Comment: 122.2 Result Comment: DANIELLE OT FIND TUBE. HEM AND MYSELF LOOKED EVERYWHERE Performed By: #### L 500.2500, L100.0500 #### [facility] [address] [place], [address] HGB Normal 12.0-15.0 [facility] Comment on above: Order Comment: 122.2 Result Comment: DANIELLE OT FIND TUBE. HEM AND MYSELF LOOKED EVERYWHERE Performed By: #### L 500.2500, L100.0500 #### [facility] [address] [place], [address] MCH Normal 27.0-32.0 [facility] Comment on above: Order Comment: 122.2 Result Comment: DANIELEL OT FIND TUBE. HEM AND MYSELF LOOKED EVERYWHERE Performed By: #### L 500.2500, L100.0500 #### [facility] [address] [place], [address] MCHC Normal 32-36 [facility] Comment on above: Order Comment: 122.2 Result Comment: DANIELLE OT FIND TUBE. HEM AND MYSELF LOOKED EVERYWHERE Performed By: #### L 500.2500, L100.0500 #### [facility] [address] [place], [address] MCV Normal 81-99 [facility] Comment on above: Order Comment: 122.2 Result Comment: DANIELLE OT FIND TUBE. HEM AND MYSELF LOOKED EVERYWHERE Performed By: #### L 500.2500, L100.0500 #### [facility] [address] [place], [address] PLT Normal 150-450 [facility] Comment on above: Order Comment: 122.2 Result Comment: DANIELLE OT FIND TUBE. HEM AND MYSELF LOOKED EVERYWHERE Performed By: #### L 500.2500, L100.0500 #### [facility] [address] [place], [address] RBC Normal 4.2-5.4 [facility] Comment on above: Order Comment: 122.2 Result Comment: DANIELLE OT FIND TUBE. HEM AND MYSELF LOOKED EVERYWHERE Performed By: #### L 500.2500, L100.0500 #### [facility] [address] [place], [address] RDW CV Normal 11.6-14.6 [facility] Comment on above: Order Comment: 122.2 Result Comment: DANIELLE OT FIND TUBE. HEM AND MYSELF LOOKED EVERYWHERE Performed By: #### L 500.2500, L100.0500 #### [facility] [address] [place], [address] RDW SD Normal 35.1-43.9 [facility] Comment on above: Order Comment: 122.2 Result Comment: DANIELLE OT FIND TUBE. HEM AND MYSELF LOOKED EVERYWHERE Performed By: #### L 500.2500, L100.0500 #### [facility] [address] [place], [address] WBC Normal 4.4-11.0 [facility] Comment on above: Order Comment: 122.2 Result Comment: DANIELLE OT FIND TUBE. HEM AND MYSELF LOOKED EVERYWHERE Performed By: #### L 500.2500, L100.0500 #### [facility] [address] [place], [address] Carbon dioxide, total [Moles /volume] in Central venous bloodOrdered By: Jean-Paul Rothman on 08-05-2024 CO2 [Moles/Vol] 20.3 mmol/L Low 21.0-32.0 [facility] Chloride assayOrdered By: Kirti Rothman on 08-05-2024 Chloride [Moles/Vol] 104 mmol/L 98-108 [facility] Glomerular filtration rate ( GFR) estimation/1.73 sq m using serum, plasma, or whole bOrdered By: Jean-Paul Rothman on 08-05-2024 GFR/1.73 sq M.predicted among non-blacks MDRD (S/P/Bld) [Vol rate/Area] 47 mL/min/{1.73_m2} Low >60 [facility] Comment on above: mL/min/1.73m2 CKD-EP I Creatinine Equation (2020) Potassium measurement (mass/ volume)Ordered By: Jean-Paul Rothman on 08-05-2024 Potassium (Unsp spec) [Mass/Vol] 3.9 mmol/L 3.3-5.1 [facility] Serum creatinine measurement (mass/volume)Ordered By: Jean-Paul Rothman on 08-05-2024 Creatinine [Mass/Vol] 1.20 mg/dL 0.70-1.20 [facility] Serum glucose measurement (m ass/volume)Ordered By: Jean-Paul Rothman on 08-05-2024 Glucose [Mass/Vol] 99 mg/dL 70-99 [facility] Serum or plasma calcium yulia urement (mass/volume)Ordered By: Jean-Paul Rothman on 08-05-2024 Calcium [Mass/Vol] 8.5 mg/dL 7.6-11.0 [facility] Serum or plasma urea nitroge n measurement (mass/volume)Ordered By: Jean-Paul Rothman on 08-05-2024 Urea nitrogen [Mass/Vol] 9 mg/dL 4-19 [facility] Sodium levelOrdered By: Jean-Paul Rothman on 08-05-2024 Sodium [Moles/Vol] 136 mmol/L 133-145 [facility] Basic Metabolic Profile (BMP )on 05-06-2024 BUN/CRE 13.0 RATIO Normal 10-20 [facility] Comment on above: Order Comment: 122.2 Performed By: #### L 501.9985, L500.2500, L100.0500 #### [facility] [address] [place], [address] CA,Total 9.0 mg/dL Normal 8.5-10.1 [facility] Comment on above: Order Comment: 122.2 Performed By: #### L 501.9985, L500.2500, L100.0500 #### [facility] [address] [place], [address] Chloride [Moles/Vol] 105 mmol/L Normal 98-107 [facility] Comment on above: Order Comment: 122.2 Performed By: #### L 501.9985, L500.2500, L100.0500 #### [facility] [address] [place], [address] CO2 [Moles/Vol] 27.0 mmol/L Normal 21.0-32.0 [facility] Comment on above: Order Comment: 122.2 Performed By: #### L 501.9985, L500.2500, L100.0500 #### [facility] [address] [place], [address] Creatinine [Mass/Vol] 1.23 mg/dL High 0.55-1.02 [facility] Comment on above: Order Comment: 122.2 Result Comment: The validity of the calculated GFR GFRAA in patients over 70 years has not been determined. Clinical correlation is essential. Performed By: #### L 501.9985, L500.2500, L100.0500 #### [facility] [address] [place], [address] EST GFR - AA 55 mL/min Low >60 [facility] Comment on above: Order Comment: 122.2 Result Comment: Afri can [place] GFR Calc Performed By: #### L 501.9985, L500.2500, L100.0500 #### [facility] [address] [place], [address] GAP 3 Low 5-15 [facility] Comment on above: Order Comment: 122.2 Performed By: #### L 501.9985, L500.2500, L100.0500 #### [facility] [address] [place], [address] GFR/1.73 sq M.predicted among non-blacks MDRD (S/P/Bld) [Vol rate/Area] 45 mL/min/{1.73_m2} Low >60 [facility] Comment on above: Order Comment: 122.2 Result Comment: Non- GFR Calc Performed By: #### L 501.9985, L500.2500, L100.0500 #### [facility] [address] [place], [address] Glucose [Mass/Vol] 147 mg/dL High 74-106 [facility] Comment on above: Order Comment: 122.2 Result Comment: Fast ing Glucose result greater than or equal to 126 mg/dL suggests DIABETES MELLITUS per A.D.A. criteria. Performed By: #### L 501.9985, L500.2500, L100.0500 #### [facility] [address] [place], [address] Potassium [Moles/Vol] 4.6 mmol/L Normal 3.5-5.1 [facility] Comment on above: Order Comment: 122.2 Performed By: #### L 501.9985, L500.2500, L100.0500 #### [facility] [address] [place], [address] Sodium [Moles/Vol] 135 mmol/L Low 136-145 [facility] Comment on above: Order Comment: 122.2 Performed By: #### L 501.9985, L500.2500, L100.0500 #### [facility] [address] [place], [address] Urea nitrogen [Mass/Vol] 16 mg/dL Normal 7-18 [facility] Comment on above: Order Comment: 122.2 Performed By: #### L 501.9985, L500.2500, L100.0500 #### [facility] [address] [place], [address] Blood urea nitrogen (BUN)/cr eatinine ratioOrdered By: Jean-Paul Rothman on 05-06-2024 Urea nitrogen/Creatinine [Mass ratio] 13.0 mg/mg 10-20 [facility] CBC-Complete Blood Cnt No Di ffon 05-06-2024 MCH (RBC) [Entitic mass] 35.1 pg High 27.0-32.0 [facility] Comment on above: Order Comment: 122.2 Performed By: #### L 501.9985, L500.2500, L100.0500 #### [facility] [address] [place], [address] MCHC (RBC) [Mass/Vol] 36.9 g/dL High 32-36 [facility] Comment on above: Order Comment: 122.2 Performed By: #### L 501.9985, L500.2500, L100.0500 #### [facility] [address] [place], [address] Hemoglobin (Bld) [Mass/Vol] 10.5 g/dL Low 12.0-15.0 [facility] Comment on above: Order Comment: 122.2 Performed By: #### L 501.9985, L500.2500, L100.0500 #### [facility] [address] [place], [address] Erythrocyte distribution width (RBC) [Ratio] 12.6 % Normal 11.6-14.6 [facility] Comment on above: Order Comment: 122.2 Performed By: #### L 501.9985, L500.2500, L100.0500 #### [facility] [address] [place], [address] Hematocrit (Bld) [Volume fraction] 28.4 % Low 37-47 [facility] Comment on above: Order Comment: 122.2 Performed By: #### L 501.9985, L500.2500, L100.0500 #### [facility] [address] [place], [address] MCV (RBC) [Entitic vol] 95.0 fL Normal 81-99 [facility] Comment on above: Order Comment: 122.2 Performed By: #### L 501.9985, L500.2500, L100.0500 #### [facility] [address] [place], [address] Platelet mean volume (Bld) [Entitic vol] 11.4 fL Normal 6.2-12.0 [facility] Comment on above: Order Comment: 122.2 Performed By: #### L 501.9985, L500.2500, L100.0500 #### [facility] [address] [place], [address] Platelets (Bld) [#/Vol] 166 10*3/uL Normal 150-450 [facility] Comment on above: Order Comment: 122.2 Performed By: #### L 501.9985, L500.2500, L100.0500 #### [facility] [address] [place], [address] RBC (Bld) [#/Vol] 2.99 10*6/uL Low 4.2-5.4 [facility] Comment on above: Order Comment: 122.2 Performed By: #### L 501.9985, L500.2500, L100.0500 #### [facility] [address] [place], [address] RDW SD 40.6 fl Normal 35.1-43.9 [facility] Comment on above: Order Comment: 122.2 Performed By: #### L 501.9985, L500.2500, L100.0500 #### [facility] [address] [place], [address] WBC (Bld) [#/Vol] 5.7 10*3/uL Normal 4.4-11.0 [facility] Comment on above: Order Comment: 122.2 Performed By: #### L 501.9985, L500.2500, L100.0500 #### [facility] [address] [place], [address] Carbon dioxide measurementOr dered By: Jean-Paul Rothman on 05-06-2024 CO2 [Moles/Vol] 27.0 mmol/L 21.0-32.0 [facility] Chloride measurementOrdered By: Jean-Paul Rothman on 05-06-2024 Chloride [Moles/Vol] 105 mmol/L 98-107 [facility] Erythrocyte distribution wid th ratioOrdered By: Jean-Paul Rothman on 05-06-2024 Erythrocyte distribution width (RBC) [Ratio] 12.6 % 11.6-14.6 [facility] Erythrocyte distribution wid th standard deviationOrdered By: Jean-Paul Rothman on 05-06-2024 Erythrocyte distribution width (RBC) [Ratio] 40.6 fl 35.1-43.9 [facility] Glomerular filtration rate ( GFR) estimationOrdered By: Jean-Paul Rothman on 05-06-2024 GFR/1.73 sq M.predicted among non-blacks MDRD (S/P/Bld) [Vol rate/Area] 45 mL/min/{1.73_m2} Low >60 [facility] Comment on above: Non- GFR Calc Glucose measurementOrdered B y: Jean-Paul Rothman on 05-06-2024 Glucose [Mass/Vol] 147 mg/dL High 74-106 [facility] Comment on above: Fasting Glucose resu lt greater than or equal to 126 mg/dL suggests DIABETES MELLITUS per A.D.A. criteria. Hematocrit Auto (Bld) [Volum e fraction]Ordered By: Jean-Paul Rothman on 05-06-2024 Hematocrit (Bld) [Volume fraction] 28.4 % Low 37-47 [facility] Hemoglobin A1con 05-06-2024 HbA1c (Bld) [Mass fraction] 8.3 % High 3.8-5.6 [facility] Comment on above: Order Comment: 122.2 Result Comment: Norm al < 5.7 % Prediabetic 5.7 - 6.4 % Diabetic >or= 6.5 % Please note range changes. Performed By: #### L 501.9902, L500.2500, L100.0500 #### [facility] [address] [place], [place], [id number] Hemoglobin A1c percentageOrd ered By: Jean-Paul Rothman on 05-06-2024 HbA1c (Bld) [Mass fraction] 8.3 % High 3.8-5.6 [facility] Comment on above: Normal < 5.7 % Predi abetic 5.7 - 6.4 % Diabetic >or= 6.5 % Please note range changes. Hemoglobin measurementOrdere d By: Jean-Paul Rothman on 05-06-2024 Hemoglobin (Bld) [Mass/Vol] 10.5 g/dL Low 12.0-15.0 [facility] MCV (mean corpuscular volume ) determinationOrdered By: Jean-Paul Rothman on 05-06-2024 MCV (RBC) [Entitic vol] 95.0 fL 81-99 [facility] Mean corpuscular hemoglobin (MCH) determinationOrdered By: Jean-Paul Rothman on 05-06-2024 MCH (RBC) [Entitic mass] 35.1 pg High 27.0-32.0 [facility] Mean corpuscular hemoglobin concentration (MCHC) determinationOrdered By: Jean-Paul Rothman on 05-06-2024 MCHC (RBC) [Mass/Vol] 36.9 g/dL High 32-36 [facility] Mean platelet volume determi nationOrdered By: Jean-Paul Rothman on 05-06-2024 Platelet mean volume (Bld) [Entitic vol] 11.4 fL 6.2-12.0 [facility] Platelet countOrdered By: Kirti Rothman on 05-06-2024 Platelets (Bld) [#/Vol] 166 10*3/uL 150-450 [facility] Potassium measurementOrdered By: Jean-Paul Rothman on 05-06-2024 Potassium [Moles/Vol] 4.6 mmol/L 3.5-5.1 [facility] RBC Auto (Bld) [#/Vol]Ordere d By: Jean-Paul Rothman on 05-06-2024 RBC (Bld) [#/Vol] 2.99 10*6/uL Low 4.2-5.4 [facility] Serum anion gap measurementO rdered By: Jean-Paul Rothman on 05-06-2024 Anion gap [Moles/Vol] 3 mmol/L Low 5-15 [facility] Serum or plasma calcium yulia urement (mass/volume)Ordered By: Jean-Paul Rothman on 05-06-2024 Calcium [Mass/Vol] 9.0 mg/dL 8.5-10.1 [facility] Serum or plasma creatinine m easurement (mass/volume)Ordered By: Jean-Paul Rothman on 05-06-2024 Creatinine [Mass/Vol] 1.23 mg/dL High 0.55-1.02 [facility] Comment on above: The validity of the calculated GFR & GFRAA in patients over 70 years has not been determined. Clinical correlation is essential. Serum or plasma urea nitroge n measurement (mass/volume)Ordered By: Jean-Paul Rothman on 05-06-2024 Urea nitrogen [Mass/Vol] 16 mg/dL 7-18 [facility] Sodium levelOrdered By: Jean-Paul Rothman on 05-06-2024 Sodium [Moles/Vol] 135 mmol/L Low 136-145 [facility] White blood cell (WBC) count Ordered By: Jean-Paul Rothman on 05-06-2024 WBC (Bld) [#/Vol] 5.7 10*3/uL 4.4-11.0 [facility] Basophil percentageOrdered B y: Jean-Paul Rothman on 05-06-2023 Chloride [Moles/Vol] 108 mmol/L 98-107 [facility] Glucose [Mass/Vol] 138 mg/dL 74-106 [facility] Comment on above: Fasting Glucose resu lt greater than or equal to 126 mg/dL suggests DIABETES MELLITUS per A.D.A. criteria. Potassium [Moles/Vol] 3.7 mmol/L 3.5-5.1 [facility] Sodium [Moles/Vol] 140 mmol/L 136-145 [facility] WBC (Bld) [#/Vol] 7.0 10*3/uL 4.4-11.0 [facility] Blood erythrocytes count (nu mber/volume)Ordered By: Jean-Paul Rothman on 05-06-2023 RBC (Bld) [#/Vol] 4.10 10*6/uL 4.2-5.4 [facility] Blood hemoglobin measurement (mass/volume)Ordered By: Jean-Paul Rothman on 05-06-2023 Hemoglobin (Bld) [Mass/Vol] 12.3 g/dL 12.0-15.0 [facility] Blood platelet mean volumeOr dered By: Jean-Paul Rothman on 05-06-2023 Platelet mean volume (Bld) [Entitic vol] 11.2 fL 6.2-12.0 [facility] Determination of erythrocyte mean corpuscular volume (MCV)Ordered By: Jean-Paul Rothman on 05-06-2023 MCV (RBC) [Entitic vol] 91.7 fL 81-99 [facility] Hematocrit Auto (Bld) [Volum e fraction]Ordered By: Jean-Paul Rothman on 05-06-2023 Hematocrit (Bld) [Volume fraction] 37.6 % 37-47 [facility] Laboratory - Chemistry and C hemistry - challengeOrdered By: Jean-Paul Rothman on 05-06-2023 CO2 [Moles/Vol] 28.0 mmol/L 21.0-32.0 [facility] Urea nitrogen/Creatinine [Mass ratio] 9.3 mg/mg 10-20 [facility] Laboratory - Hematology and Cell countsOrdered By: Jean-Paul Rothman on 05-06-2023 Erythrocyte distribution width (RBC) [Entitic vol] 49.7 fL 35.1-43.9 [facility] Erythrocyte distribution width (RBC) [Ratio] 14.9 % 11.6-14.6 [facility] MCH (RBC) [Entitic mass] 30.0 pg 27.0-32.0 [facility] MCHC Auto (RBC) [Mass/Vol]Or dered By: Jean-Paul Rothman on 05-06-2023 MCHC (RBC) [Mass/Vol] 32.7 g/dL 32-36 [facility] No Panel InformationOrdered By: Jean-Paul Rothman on 05-06-2023 Estimated GFR (MDRD) Amer 57 mL/min >60 [facility] Comment on above: GFR Calc Estimated GFR (MDRD) Non-Af Amer 47 mL/min >60 [facility] Comment on above: Non- GFR Calc Platelets bldOrdered By: Vito Rothman on 05-06-2023 Platelets (Bld) [#/Vol] 210 10*3/uL 150-450 [facility] Serum or plasma calcium yulia urement (mass/volume)Ordered By: Jean-Paul Rothman on 05-06-2023 Calcium [Mass/Vol] 8.9 mg/dL 8.5-10.1 [facility] Serum or plasma creatinine m easurement (mass/volume)Ordered By: Jean-Paul Rothman on 05-06-2023 Creatinine [Mass/Vol] 1.18 mg/dL 0.55-1.02 [facility] Comment on above: The validity of the calculated GFR & GFRAA in patients over 70 years has not been determined. Clinical correlation is essential. Serum or plasma urea nitroge n measurement (mass/volume)Ordered By: Jean-Paul Rothman on 05-06-2023 Urea nitrogen [Mass/Vol] 11 mg/dL 7-18 [facility] Thin prep Papanicolaou smear with manual screeningOrdered By: Jean-Paul Rothman on 05-06-2023 Thin prep Papanicolaou smear with manual screening 4 5-15 [facility] Whole blood hemoglobin A1c/t otal hemoglobin ratio (mass fraction)Ordered By: Jean-Paul Rothman on 05-06-2023 HbA1c (Bld) [Mass fraction] 5.5 % 3.8-5.6 [facility] Comment on above: Normal < 5.7 % Predi abetic 5.7 - 6.4 % Diabetic >or= 6.5 % Please note range changes. Basophil percentageOrdered B y: Jean-Paul Rothman on 02-05-2023 Chloride [Moles/Vol] 109 mmol/L 98-107 [facility] Glucose [Mass/Vol] 104 mg/dL 74-106 [facility] Comment on above: Fasting Glucose resu lt from 100 to 125 mg/dL suggests IMPAIRED HOMEOSTASIS per A.D.A. criteria. Potassium [Moles/Vol] 3.6 mmol/L 3.5-5.1 [facility] Sodium [Moles/Vol] 141 mmol/L 136-145 [facility] WBC (Bld) [#/Vol] 5.9 10*3/uL 4.4-11.0 [facility] Blood erythrocytes count (nu mber/volume)Ordered By: Jean-Paul Rothman on 02-05-2023 RBC (Bld) [#/Vol] 3.63 10*6/uL 4.2-5.4 [facility] Blood hemoglobin measurement (mass/volume)Ordered By: Jean-Paul Rothman on 02-05-2023 Hemoglobin (Bld) [Mass/Vol] 10.3 g/dL 12.0-15.0 [facility] Blood platelet mean volumeOr dered By: Jean-Paul Rothman on 02-05-2023 Platelet mean volume (Bld) [Entitic vol] 10.7 fL 6.2-12.0 [facility] Determination of erythrocyte mean corpuscular volume (MCV)Ordered By: Jean-Paul Rothman on 02-05-2023 MCV (RBC) [Entitic vol] 90.6 fL 81-99 [facility] Hematocrit Auto (Bld) [Volum e fraction]Ordered By: Jean-Paul Rothman on 02-05-2023 Hematocrit (Bld) [Volume fraction] 32.9 % 37-47 [facility] Laboratory - Chemistry and C hemistry - challengeOrdered By: Jean-Paul Rothman on 02-05-2023 CO2 [Moles/Vol] 29.0 mmol/L 21.0-32.0 [facility] Urea nitrogen/Creatinine [Mass ratio] 8.1 mg/mg 10-20 [facility] Laboratory - Hematology and Cell countsOrdered By: Jean-Paul Rothman on 02-05-2023 Erythrocyte distribution width (RBC) [Entitic vol] 47.4 fL 35.1-43.9 [facility] Erythrocyte distribution width (RBC) [Ratio] 14.4 % 11.6-14.6 [facility] MCH (RBC) [Entitic mass] 28.4 pg 27.0-32.0 [facility] MCHC Auto (RBC) [Mass/Vol]Or dered By: Jean-Paul Rothman on 02-05-2023 MCHC (RBC) [Mass/Vol] 31.3 g/dL 32-36 [facility] No Panel InformationOrdered By: Jean-Paul Rothman on 02-05-2023 Estimated GFR (MDRD) Amer 54 mL/min >60 [facility] Comment on above: GFR Calc Estimated GFR (MDRD) Non-Af Amer 45 mL/min >60 [facility] Comment on above: Non- GFR Calc Platelets bldOrdered By: Vito Rothman on 02-05-2023 Platelets (Bld) [#/Vol] 208 10*3/uL 150-450 [facility] Serum or plasma calcium yulia urement (mass/volume)Ordered By: Jean-Paul Rothman on 02-05-2023 Calcium [Mass/Vol] 8.0 mg/dL 8.5-10.1 [facility] Serum or plasma creatinine m easurement (mass/volume)Ordered By: Jean-Paul Rothman on 02-05-2023 Creatinine [Mass/Vol] 1.24 mg/dL 0.55-1.02 [facility] Comment on above: The validity of the calculated GFR & GFRAA in patients over 70 years has not been determined. Clinical correlation is essential. Serum or plasma urea nitroge n measurement (mass/volume)Ordered By: Jean-Paul Rothman on 02-05-2023 Urea nitrogen [Mass/Vol] 10 mg/dL 7-18 [facility] Thin prep Papanicolaou smear with manual screeningOrdered By: Jean-Paul Rothman on 02-05-2023 Thin prep Papanicolaou smear with manual screening 3 5-15 [facility] Whole blood hemoglobin A1c/t otal hemoglobin ratio (mass fraction)Ordered By: Jean-Paul Rothman on 02-05-2023 HbA1c (Bld) [Mass fraction] 7.4 % 3.8-5.6 [facility] Comment on above: Normal < 5.7 % Predi abetic 5.7 - 6.4 % Diabetic >or= 6.5 % Please note range changes. Culture, urineOrdered By: Kirti Rothman on 01-16-2023 Bacteria identified Cx Nom (U) Culture exhibits no growth. [facility] Bacteria identified Cx Nom (U) Culture exhibits no growth. [facility] Absolute lymphocyte countOrd ered By: Jean-Paul Rothman on 01-07-2023 Lymphocytes Auto (Unsp spec) [#/Vol] 0.85 10*3/uL 0.83-4.51 [facility] Basophil percentageOrdered B y: Jean-Paul Rothman on 01-07-2023 Basophils/100 WBC (Bld) 0.3 % 0-1 [facility] Chloride [Moles/Vol] 105 mmol/L 98-107 [facility] Eosinophils/100 WBC (Bld) 0.1 % 0-5 [facility] Glucose [Mass/Vol] 293 mg/dL 74-106 [facility] Comment on above: Glucose result great er than or equal to 200 mg/dLsuggests DIABETES MELLITUS per A.D.A. criteria. Neutrophils (Bld) [#/Vol] 10.2 10*3/uL 2.0-7.7 [facility] Neutrophils/100 WBC (Bld) 85.2 % 47-70 [facility] Potassium [Moles/Vol] 3.4 mmol/L 3.5-5.1 [facility] Sodium [Moles/Vol] 138 mmol/L 136-145 [facility] WBC (Bld) [#/Vol] 11.9 10*3/uL 4.4-11.0 [facility] Basophil percentage 50-100 SEEN /hpf 0-5 [facility] Bilirubin Test strip Ql (U)O rdered By: Jean-Paul Rothman on 01-07-2023 Bilirubin Ql (U) Negative Negative [facility] Blood erythrocytes count (nu mber/volume)Ordered By: Jean-Paul Rothman on 01-07-2023 RBC (Bld) [#/Vol] 4.33 10*6/uL 4.2-5.4 [facility] Blood hemoglobin measurement (mass/volume)Ordered By: Jean-Paul Rothman on 01-07-2023 Hemoglobin (Bld) [Mass/Vol] 12.4 g/dL 12.0-15.0 [facility] Blood lymphocytes/100 leukoc ytesOrdered By: Jean-Paul Rothman on 01-07-2023 Lymphocytes/100 WBC (Bld) 7.1 % 19-41 [facility] Blood monocytes/100 leukocyt esOrdered By: Jean-Paul Rothman on 01-07-2023 Monocytes/100 WBC (Bld) 6.6 % 0-10 [facility] Blood platelet mean volumeOr dered By: Jean-Paul Rothman on 01-07-2023 Platelet mean volume (Bld) [Entitic vol] 11.7 fL 6.2-12.0 [facility] Culture, urineOrdered By: Kirti Rothman on 01-07-2023 Bacteria identified Cx Nom (U) ESBL Escherichia coli [facility] Determination of erythrocyte mean corpuscular volume (MCV)Ordered By: Jean-Paul Rothman on 01-07-2023 MCV (RBC) [Entitic vol] 89.8 fL 81-99 [facility] Hematocrit Auto (Bld) [Volum e fraction]Ordered By: Jean-Paul Rothman on 01-07-2023 Hematocrit (Bld) [Volume fraction] 38.9 % 37-47 [facility] Ketones Test strip Ql (U)Ord ered By: Jean-Paul Rothman on 01-07-2023 Ketones Ql (U) Negative Negative [facility] Laboratory - Chemistry and C hemistry - challengeOrdered By: Jean-Paul Rothman on 01-07-2023 CO2 [Moles/Vol] 27.0 mmol/L 21.0-32.0 [facility] Urea nitrogen/Creatinine [Mass ratio] 20.5 mg/mg 10-20 [facility] Laboratory - Hematology and Cell countsOrdered By: Jean-Paul Rothman on 01-07-2023 Erythrocyte distribution width (RBC) [Entitic vol] 44.4 fL 35.1-43.9 [facility] Erythrocyte distribution width (RBC) [Ratio] 13.5 % 11.6-14.6 [facility] Immature granulocytes/100 WBC (Bld) 0.700 % 0.0-0.9 [facility] Comment on above: IG% - Immature Granu locytes (promyelocytes, myelocytes and metamyelocytes) > 1% indicates that a LEFT SHIFT is Present. MCH (RBC) [Entitic mass] 28.6 pg 27.0-32.0 [facility] Nucleated RBC/100 WBC (Bld) [Ratio] 0 % 0-5 [facility] MCHC Auto (RBC) [Mass/Vol]Or dered By: Jean-Paul Rothman on 01-07-2023 MCHC (RBC) [Mass/Vol] 31.9 g/dL 32-36 [facility] Mucus LM Ql (Urine sed)Order ed By: Jean-Paul Rothman on 01-07-2023 Mucus Ql (Urine sed) 0 SEEN /hpf [facility] Nitrite Test strip Ql (U)Ord ered By: Jean-Paul Rothman on 01-07-2023 Nitrite Ql (U) Positive Negative [facility] No Panel InformationOrdered By: Jean-Paul Rothman on 01-07-2023 Estimated GFR (MDRD) Amer 45 mL/min >60 [facility] Comment on above: GFR Calc Estimated GFR (MDRD) Non-Af Amer 37 mL/min >60 [facility] Comment on above: Non- GFR Calc Platelets bldOrdered By: Vito Rothman on 01-07-2023 Platelets (Bld) [#/Vol] 228 10*3/uL 150-450 [facility] Protein Test strip Ql (U)Ord ered By: Jean-Paul Rothman on 01-07-2023 Protein Ql (U) 500 mg/dl Negative [facility] Serum or plasma calcium yulia urement (mass/volume)Ordered By: Jean-Paul Rothman on 01-07-2023 Calcium [Mass/Vol] 9.0 mg/dL 8.5-10.1 [facility] Serum or plasma creatinine m easurement (mass/volume)Ordered By: Jean-Paul Rothman on 01-07-2023 Creatinine [Mass/Vol] 1.46 mg/dL 0.55-1.02 [facility] Comment on above: The validity of the calculated GFR & GFRAA in patients over 70 years has not been determined. Clinical correlation is essential. Serum or plasma urea nitroge n measurement (mass/volume)Ordered By: Jean-Paul Rothman on 01-07-2023 Urea nitrogen [Mass/Vol] 30 mg/dL 7-18 [facility] Squamous epithelial cells de tection in urine sediment by light microscopyOrdered By: Jean-Pual Rothman on 01-07-2023 Epithelial cells.squamous LM Ql (Urine sed) 0 SEEN /hpf 5-10 [facility] Thin prep Papanicolaou smear with manual screeningOrdered By: Jean-Paul Rothman on 09-13-2023 Thin prep Papanicolaou smear with manual screening 6 5-15 [facility] Urine blood detectionOrdered By: Jean-Paul Rothman on 01-07-2023 RBC Ql (U) 250 /ul Negative [facility] RBC Ql (U) 25-50 SEEN /hpf 0-5 [facility] Urine clarityOrdered By: Vito Rothman on 01-07-2023 Clarity (U) Cloudy Clear [facility] Urine color determinationOrd ered By: Jean-Paul Rothman on 01-07-2023 Color (U) Yellow Yellow [facility] Urine glucose detectionOrder ed By: Jean-Paul Rothman on 01-07-2023 Glucose Ql (U) 100 mg/dl Normal [facility] Urine leukocyte esterase det ection by dipstickOrdered By: Jean-Paul Rothman on 01-07-2023 Leukocyte esterase Test strip Ql (U) 500 /ul Negative [facility] Urine pHOrdered By: Jean-Paul cole on 01-07-2023 pH (U) 6.0 [pH] 5.0 - 8.0 [facility] Urine sediment bacteria coun t by microscopy (number/high power field)Ordered By: Jean-Paul Rothman on 01-07-2023 Bacteria LM.HPF (Urine sed) [#/Area] 4 /[HPF] None Seen [facility] Urine specific gravity measu rementOrdered By: Jean-Paul Rothman on 01-07-2023 Specific gravity (U) [Rel density] 1.015 1.002-1.03 0 [facility] Urobilinogen Auto test strip Ql (U)Ordered By: Jean-Paul Rothman on 01-07-2023 Urobilinogen Ql (U) Normal mg/dl Normal [facility] Basophil percentageOrdered B y: Jean-Paul Rothman on 11-07-2022 Chloride [Moles/Vol] 110 mmol/L 98-107 [facility] Glucose [Mass/Vol] 63 mg/dL 74-106 [facility] Potassium [Moles/Vol] 3.7 mmol/L 3.5-5.1 [facility] Sodium [Moles/Vol] 141 mmol/L 136-145 [facility] WBC (Bld) [#/Vol] 6.2 10*3/uL 4.4-11.0 [facility] Blood erythrocytes count (nu mber/volume)Ordered By: Jean-Paul Rothman on 11-07-2022 RBC (Bld) [#/Vol] 3.59 10*6/uL 4.2-5.4 [facility] Blood hemoglobin measurement (mass/volume)Ordered By: Jean-Paul Rothman on 11-07-2022 Hemoglobin (Bld) [Mass/Vol] 10.7 g/dL 12.0-15.0 [facility] Blood platelet mean volumeOr dered By: Jean-Paul Rothman on 11-07-2022 Platelet mean volume (Bld) [Entitic vol] 10.6 fL 6.2-12.0 [facility] Determination of erythrocyte mean corpuscular volume (MCV)Ordered By: Jean-Paul Rothman on 11-07-2022 MCV (RBC) [Entitic vol] 92.8 fL 81-99 [facility] Hematocrit Auto (Bld) [Volum e fraction]Ordered By: Jean-Paul Rothman on 11-07-2022 Hematocrit (Bld) [Volume fraction] 33.3 % 37-47 [facility] Laboratory - Chemistry and C hemistry - challengeOrdered By: Jean-Paul Rothman on 11-07-2022 CO2 [Moles/Vol] 28.0 mmol/L 21.0-32.0 [facility] Urea nitrogen/Creatinine [Mass ratio] 8.7 mg/mg 10-20 [facility] Laboratory - Hematology and Cell countsOrdered By: Jean-Paul Rothman on 11-07-2022 Erythrocyte distribution width (RBC) [Entitic vol] 45.1 fL 35.1-43.9 [facility] Erythrocyte distribution width (RBC) [Ratio] 13.2 % 11.6-14.6 [facility] MCH (RBC) [Entitic mass] 29.8 pg 27.0-32.0 [facility] MCHC Auto (RBC) [Mass/Vol]Or dered By: Jean-Paul Rothman on 11-07-2022 MCHC (RBC) [Mass/Vol] 32.1 g/dL 32-36 [facility] No Panel InformationOrdered By: Jean-Paul Rothman on 11-07-2022 Estimated GFR (MDRD) Amer 59 mL/min >60 [facility] Comment on above: GFR Calc Estimated GFR (MDRD) Non-Af Amer 49 mL/min >60 [facility] Comment on above: Non- GFR Calc Platelets bldOrdered By: Vito Rothman on 11-07-2022 Platelets (Bld) [#/Vol] 215 10*3/uL 150-450 [facility] Serum or plasma calcium yulia urement (mass/volume)Ordered By: Jean-Paul Rothman on 11-07-2022 Calcium [Mass/Vol] 8.4 mg/dL 8.5-10.1 [facility] Serum or plasma creatinine m easurement (mass/volume)Ordered By: Jean-Paul Rothman on 11-07-2022 Creatinine [Mass/Vol] 1.15 mg/dL 0.55-1.02 [facility] Comment on above: The validity of the calculated GFR & GFRAA in patients over 70 years has not been determined. Clinical correlation is essential. Serum or plasma urea nitroge n measurement (mass/volume)Ordered By: Jean-Paul Rothman on 11-07-2022 Urea nitrogen [Mass/Vol] 10 mg/dL 7-18 [facility] Thin prep Papanicolaou smear with manual screeningOrdered By: Jean-Paul Rothman on 11-07-2022 Thin prep Papanicolaou smear with manual screening 3 5-15 [facility] Whole blood hemoglobin A1c/t otal hemoglobin ratio (mass fraction)Ordered By: Jean-Paul Rothman on 11-07-2022 HbA1c (Bld) [Mass fraction] 8.2 % 3.8-5.6 [facility] Comment on above: Normal < 5.7 % Predi abetic 5.7 - 6.4 % Diabetic >or= 6.5 % Please note range changes. Basophil percentageOrdered B y: Jean-Paul Rothman on 08-04-2022 Chloride [Moles/Vol] 109 mmol/L 98-107 [facility] Glucose [Mass/Vol] 118 mg/dL 74-106 [facility] Comment on above: Fasting Glucose resu lt from 100 to 125 mg/dL suggests IMPAIRED HOMEOSTASIS per A.D.A. criteria. Potassium [Moles/Vol] 3.6 mmol/L 3.5-5.1 [facility] Sodium [Moles/Vol] 141 mmol/L 136-145 [facility] WBC (Bld) [#/Vol] 7.2 10*3/uL 4.4-11.0 [facility] Blood erythrocytes count (nu mber/volume)Ordered By: Jean-Paul Rothman on 08-04-2022 RBC (Bld) [#/Vol] 3.54 10*6/uL 4.2-5.4 [facility] Blood hemoglobin measurement (mass/volume)Ordered By: Jean-Paul Rothman on 08-04-2022 Hemoglobin (Bld) [Mass/Vol] 10.4 g/dL 12.0-15.0 [facility] Blood platelet mean volumeOr dered By: Jean-Paul Rothman on 08-04-2022 Platelet mean volume (Bld) [Entitic vol] 10.6 fL 6.2-12.0 [facility] Determination of erythrocyte mean corpuscular volume (MCV)Ordered By: Jean-Paul Rothman on 08-04-2022 MCV (RBC) [Entitic vol] 92.7 fL 81-99 [facility] Hematocrit Auto (Bld) [Volum e fraction]Ordered By: Jean-Paul Rothman on 08-04-2022 Hematocrit (Bld) [Volume fraction] 32.8 % 37-47 [facility] Laboratory - Chemistry and C hemistry - challengeOrdered By: Jean-Paul Rothman on 08-04-2022 CO2 [Moles/Vol] 26.0 mmol/L 21.0-32.0 [facility] Urea nitrogen/Creatinine [Mass ratio] 15.5 mg/mg 10-20 [facility] Laboratory - Hematology and Cell countsOrdered By: Jean-Paul Rothman on 08-04-2022 Erythrocyte distribution width (RBC) [Entitic vol] 46.9 fL 35.1-43.9 [facility] Erythrocyte distribution width (RBC) [Ratio] 13.8 % 11.6-14.6 [facility] MCH (RBC) [Entitic mass] 29.4 pg 27.0-32.0 [facility] MCHC Auto (RBC) [Mass/Vol]Or dered By: Jean-Paul Rothman on 08-04-2022 MCHC (RBC) [Mass/Vol] 31.7 g/dL 32-36 [facility] No Panel InformationOrdered By: Jean-Paul Rothman on 08-04-2022 Estimated GFR (MDRD) Amer 67 mL/min >60 [facility] Comment on above: GFR Calc Estimated GFR (MDRD) Non-Af Amer 56 mL/min >60 [facility] Comment on above: Non- GFR Calc Platelets bldOrdered By: Vito Rothman on 08-04-2022 Platelets (Bld) [#/Vol] 213 10*3/uL 150-450 [facility] Serum or plasma calcium yulia urement (mass/volume)Ordered By: Jean-Paul Rothman on 08-04-2022 Calcium [Mass/Vol] 8.3 mg/dL 8.5-10.1 [facility] Serum or plasma creatinine m easurement (mass/volume)Ordered By: Jean-Paul Rothman on 08-04-2022 Creatinine [Mass/Vol] 1.03 mg/dL 0.55-1.02 [facility] Comment on above: The validity of the calculated GFR & GFRAA in patients over 70 years has not been determined. Clinical correlation is essential. Serum or plasma urea nitroge n measurement (mass/volume)Ordered By: Jean-Paul Rothman on 08-04-2022 Urea nitrogen [Mass/Vol] 16 mg/dL 7-18 [facility] Thin prep Papanicolaou smear with manual screeningOrdered By: Jean-Paul Rothman on 08-04-2022 Thin prep Papanicolaou smear with manual screening 6 5-15 [facility] Whole blood hemoglobin A1c/t otal hemoglobin ratio (mass fraction)Ordered By: Jean-Paul Rothman on 08-04-2022 HbA1c (Bld) [Mass fraction] 6.7 % 3.8-5.6 [facility] Comment on above: Normal < 5.7 % Predi abetic 5.7 - 6.4 % Diabetic >or= 6.5 % Please note range changes. Basophil percentageOrdered B y: [facility] on 05-06-2022 Chloride [Moles/Vol] 106 mmol/L 98-107 [facility] Glucose [Mass/Vol] 152 mg/dL 74-106 [facility] Comment on above: Fasting Glucose resu lt greater than or equal to 126 mg/dL suggests DIABETES MELLITUS per A.D.A. criteria. Potassium [Moles/Vol] 4.3 mmol/L 3.5-5.1 [facility] Sodium [Moles/Vol] 138 mmol/L 136-145 [facility] WBC (Bld) [#/Vol] 5.3 10*3/uL 4.4-11.0 [facility] Blood erythrocytes count (nu mber/volume)Ordered By: [facility] on 05-06-2022 RBC (Bld) [#/Vol] 3.96 10*6/uL 4.2-5.4 [facility] Blood hemoglobin measurement (mass/volume)Ordered By: [facility] on 05-06-2022 Hemoglobin (Bld) [Mass/Vol] 11.5 g/dL 12.0-15.0 [facility] Blood platelet mean volumeOr dered By: [facility] on 05-06-2022 Platelet mean volume (Bld) [Entitic vol] 11.1 fL 6.2-12.0 [facility] Determination of erythrocyte mean corpuscular volume (MCV)Ordered By: [facility] on 05-06-2022 MCV (RBC) [Entitic vol] 90.7 fL 81-99 [facility] Hematocrit Auto (Bld) [Volum e fraction]Ordered By: [facility] on 05-06-2022 Hematocrit (Bld) [Volume fraction] 35.9 % 37-47 [facility] Laboratory - Chemistry and C hemistry - challengeOrdered By: [facility] on 05-06-2022 CO2 [Moles/Vol] 24.0 mmol/L 21.0-32.0 [facility] Urea nitrogen/Creatinine [Mass ratio] 17.3 mg/mg 10-20 [facility] Laboratory - Hematology and Cell countsOrdered By: [facility] on 05-06-2022 Erythrocyte distribution width (RBC) [Entitic vol] 49.1 fL 35.1-43.9 [facility] Erythrocyte distribution width (RBC) [Ratio] 15.0 % 11.6-14.6 [facility] MCH (RBC) [Entitic mass] 29.0 pg 27.0-32.0 [facility] MCHC Auto (RBC) [Mass/Vol]Or dered By: [facility] on 05-06-2022 MCHC (RBC) [Mass/Vol] 32.0 g/dL 32-36 [facility] No Panel InformationOrdered By: [facility] on 05-06-2022 Estimated GFR (MDRD) Amer 62 mL/min >60 [facility] Comment on above: GFR Calc Estimated GFR (MDRD) Non-Af Amer 52 mL/min >60 [facility] Comment on above: Non- GFR Calc Platelets bldOrdered By: [facility] on 05-06-2022 Platelets (Bld) [#/Vol] 192 10*3/uL 150-450 [facility] Serum or plasma calcium yulia urement (mass/volume)Ordered By: [facility] on 05-06-2022 Calcium [Mass/Vol] 8.8 mg/dL 8.5-10.1 [facility] Serum or plasma creatinine m easurement (mass/volume)Ordered By: [facility] on 05-06-2022 Creatinine [Mass/Vol] 1.10 mg/dL 0.55-1.02 [facility] Comment on above: The validity of the calculated GFR & GFRAA in patients over 70 years has not been determined. Clinical correlation is essential. Serum or plasma urea nitroge n measurement (mass/volume)Ordered By: [facility] on 05-06-2022 Urea nitrogen [Mass/Vol] 19 mg/dL 7-18 [facility] Thin prep Papanicolaou smear with manual screeningOrdered By: [facility] on 05-06-2022 Thin prep Papanicolaou smear with manual screening 8 5-15 [facility] Whole blood hemoglobin A1c/t otal hemoglobin ratio (mass fraction)Ordered By: [facility] on 05-06-2022 HbA1c (Bld) [Mass fraction] 7.0 % 3.8-5.6 [facility] Comment on above: Normal < 5.7 % Predi abetic 5.7 - 6.4 % Diabetic >or= 6.5 % Please note range changes. Absolute lymphocyte counton 08-08-2021 Lymphocytes Auto (Unsp spec) [#/Vol] 2.81 10*3/uL 0.83-4.51 [facility] Work Phone: Basophil percentageon 2021 Basophils/100 WBC (Bld) 0.4 % 0-1 [facility] Work Phone: Bilirubin [Mass/Vol] 0.30 mg/dL 0.20-1.00 [facility] Work Phone: Comment on above: For patients on eltr ombopag therapy, use of Dimension [place] TBIL is not recommended. Chloride [Moles/Vol] 102 mmol/L 98-107 [facility] Work Phone: Eosinophils/100 WBC (Bld) 0.9 % 0-5 [facility] Work Phone: Glucose [Mass/Vol] 247 mg/dL 74-106 [facility] Work Phone: Comment on above: Glucose result great er than or equal to 200 mg/dLsuggests DIABETES MELLITUS per A.D.A. criteria. Neutrophils (Bld) [#/Vol] 5.0 10*3/uL 2.0-7.7 [facility] Work Phone: Neutrophils/100 WBC (Bld) 59.0 % 47-70 [facility] Work Phone: Potassium [Moles/Vol] 4.1 mmol/L 3.5-5.1 [facility] Work Phone: Protein [Mass/Vol] 7.5 g/dL 6.4-8.2 [facility] Work Phone: Sodium [Moles/Vol] 135 mmol/L 136-145 [facility] Work Phone: WBC (Bld) [#/Vol] 8.5 10*3/uL 4.4-11.0 [facility] Work Phone: Blood erythrocytes count (nu mber/volume)on 08-08-2021 RBC (Bld) [#/Vol] 4.43 10*6/uL 4.2-5.4 [facility]: Blood hemoglobin measurement (mass/volume)on 08-08-2021 Hemoglobin (Bld) [Mass/Vol] 12.9 g/dL 12.0-15.0 [facility] Work Phone: Blood lymphocytes/100 leukoc yteson 08-08-2021 Lymphocytes/100 WBC (Bld) 33.1 % 19-41 [facility] Work Phone: Blood monocytes/100 leukocyt eson 08-08-2021 Monocytes/100 WBC (Bld) 5.7 % 0-10 [facility] Work Phone: [phone] Blood platelet mean volumeon 08-08-2021 Platelet mean volume (Bld) [Entitic vol] 10.3 fL 6.2-12.0 [facility] Work Phone: Determination of erythrocyte mean corpuscular volume (MCV)on 08-08-2021 MCV (RBC) [Entitic vol] 85.3 fL 81-99 [facility] Work Phone: Glucose Glucometer (BldC) [M ass/Vol]on 08-08-2021 Glucose [Mass/Vol] 257 mg/dL 74-106 [facility] Work Phone: Comment on above: MANAGEMENT OF PATIEN T CARE PER NURSING PROTOCOL Hematocrit Auto (Bld) [Volum e fraction]on 08-08-2021 Hematocrit (Bld) [Volume fraction] 37.8 % 37-47 [facility] Work Phone: Laboratory - Chemistry and C hemistry - challengeon 08-08-2021 ALP [Catalytic activity/Vol] 131 U/L 45-117 [facility] Work Phone: ALT [Catalytic activity/Vol] 16 U/L 13-56 [facility] Work Phone: [phone] CO2 [Moles/Vol] 25.0 mmol/L 21.0-32.0 [facility] Work Phone: [phone] Globulin (S) [Mass/Vol] 4.2 g/dL 2.2-4.2 [facility] Work Phone: [phone] Urea nitrogen/Creatinine [Mass ratio] 13.4 mg/mg 10-20 [facility] Work Phone: [phone] Laboratory - Hematology and Cell countson 08-08-2021 Erythrocyte distribution width (RBC) [Entitic vol] 41.0 fL 35.1-43.9 [facility] Work Phone: [phone] Erythrocyte distribution width (RBC) [Ratio] 13.1 % 11.6-14.6 [facility] Work Phone: [phone] Immature granulocytes/100 WBC (Bld) 0.900 % 0.0-0.9 [facility] Work Phone: [phone] Comment on above: IG% - Immature Granu locytes (promyelocytes, myelocytes and metamyelocytes) > 1% indicates that a LEFT SHIFT is Present. MCH (RBC) [Entitic mass] 29.1 pg 27.0-32.0 [facility] Work Phone: [phone] Nucleated RBC/100 WBC (Bld) [Ratio] 0 % 0-5 [facility] Work Phone: [phone] MCHC Auto (RBC) [Mass/Vol]on 08-08-2021 MCHC (RBC) [Mass/Vol] 34.1 g/dL 32-36 [facility] Work Phone: No Panel Informationon 08-08 Estimated Creatinine Clearance Calc 27.49 ml/min [facility] Work Phone: [phone] Estimated GFR (MDRD) Amer 47 mL/min >60 [facility] Work Phone: [phone] Comment on above: GFR Calc Estimated GFR (MDRD) Non-Af Amer 38 mL/min >60 [facility] Work Phone: [phone] Comment on above: Non- GFR Calc Platelets bldon 08-08-2021 Platelets (Bld) [#/Vol] 260 10*3/uL 150-450 [facility] Work Phone: [phone] or plasma albumin yluia urement (mass/volume)on 08-08-2021 Albumin [Mass/Vol] 3.3 g/dL 3.2-5.0 [facility] Work Phone: [phone] Serum or plasma albumin/glob ulin mass ratioon 08-08-2021 Albumin/Globulin [Mass ratio] 0.8 {ratio} 0.9-2.4 [facility] Work Phone: [phone] Serum or plasma calcium yulia urement (mass/volume)on 08-08-2021 Calcium [Mass/Vol] 8.9 mg/dL 8.5-10.1 [facility] Work Phone: Serum or plasma creatinine m easurement (mass/volume)on 08-08-2021 Creatinine [Mass/Vol] 1.42 mg/dL 0.55-1.02 [facility] Work Phone: Comment on above: The validity of the calculated GFR & GFRAA in patients over 70 years has not been determined. Clinical correlation is essential. Serum or plasma urea nitroge n measurement (mass/volume)on 08-08-2021 Urea nitrogen [Mass/Vol] 19 mg/dL 7-18 [facility] Work Phone: Thin prep Papanicolaou smear with manual screeningon 08-08-2021 Thin prep Papanicolaou smear with manual screening 10 U/L 15 [facility] Work Phone: Thin prep Papanicolaou smear with manual screening 8 -15 [facility] Work Phone: CNOVon 11-08-2020 CNOV Office Visit (GSTNOR ) LISA SHIRLEY ([id number]) 1945 F TXT Date Time Provider Department 11/08/20 11:30 AM TIFFANI BRADEN GSTCHRISTIANOR During your visit today, we recorded the following information about you: Pulse Blood pressure Weight Height 83/minute 152/59 85.7 kg 1.575 m Tiffani Braden PA-C 11/08/2020 1:06 PM Signed Throat Problem HPI Resident of [facility]. Alisha Akins present for encounter. Rolandgiulia Rodas Fern is a 75 year old female here today for Throat Problem. Has had dysphagia with solids/liquids for the past few years. History positive for cerebellar infarction 2019. Pt includes dysphagia started prior to this. Had barium swallow at [place] 09/2020, which showed mild-moderate oropharyngeal dysphagia as well as significant esophageal retention. GI consult for endoscopy was advised. Is currently on mechanical soft diet at [place] and with diet denies choking, but admits [...] had last colonoscopy in June 2017 at [place], [place], which was normal. She was advised [...] ok 08/25 (more content not included)... Normal [facility] Office-Progress Notes-Pr nader 11-04-2020 [facility] Office-Progress Notes-Provider Chief Complaint HTN, [...] 50,000 intl units (1.25 mg) oral [place], [address] intl_unit= 1 caps, ORAL, THURSDAY Xanax 0.5 [...] cancer..: Mother and Father. Prostate cancer..: Brother. [facility] Patient Letteron 10-31-2020 Patient Letter (Inserted Image. Lorrie ble to display) October 31, 2020 LISA SHIRLEY [address] [place] [address] Dear, Lisa Shirley Our office has been trying to reach you. Please call us back at your earliest convenience. At [phone]. , [facility] Ambulatory Clinical Summaryo n 10-22-2020 Ambulatory [...] call to get immediate medical attention! Normal [facility] Dhiraj 06-29-2020 CNOV Office Visit (GSTNOR ) LISA SHIRLEY ([id number]) 1945 F TXT Date Time Provider Department [...] had last colonoscopy in June 2017 at [place], [place], which was normal. She was advised [...] Value 11 (more content not included)... Normal [facility] CNPElizabeth 06-29-2020 [facility] Telephone (ASCNOR) LISA SHIRLEY ([id number]) 1945 F TXT Date Time Provider Department 06/29/20 KATIA SALMERON During your visit today, we recorded the following information about you: MAKENNA ROBLES, RN, RN 06/29/2020 2:44 PM Signed Pt came into the center slightly confused, poor historian. Called [facility], spoke to nurse. Stated pt [...] for Visit: Pre-Op Exam [87] Cmt: Called correction for addtitional information for office visit Prescriptions [...] esophagitis [K21.9] 12/28/2018 Coronary artery disease involving [place] thrasher*02/04/2019 Other constipation [K59.09] 06/19/2019 Acute right [...] 35-39.9 [E66.9] 03/19/2020 Encounter Status:Closed by DEPP BENEFITS CONSULTING ANALYST, MAKENNA on 06/29/20 Normal [facility] PROGRESSon 05-27-2020 PROGRESS HNO ID: [id number] Author: Leland Herrera Service: ? Author Type: [...] missed all prior follow-up visits due to [facility] failure to coordinate. She did obtain films [...] 6 weeks (around 07/05/2020). [facility] Office Visit (AGPOB1 ) LISA SHIRLEY ([id number]) 1945 F TXT Date Time Provider Department [...] (around 07/05/2020). Leland Herrera MD Referring Provider: [facility] [[id number]] Allergies As of Date: 05/24/2020 Noted Allergy [...] Intolerance Date Reviewed: 05/24/2020 Reviewed by: Geni [facility] Hospital[facility]esario Chance - Fully Assessed Reason for Visit: [...] esophagitis [K21.9] 12/28/2018 Coronary artery disease involving [place] thrasher*02/04/2019 Other constipation [K59.09] 06/19/2019 Acute right [...] Status:Closed by LELAND HERRERA MD on 05/27/20 [facility] Rose Mary 05-17-2020 ERICHN Telephone (AGPOB1) RADHALISA RODRIGUEZ ([id number]) 1945 F TXT Date Time Provider Department 05/17/20 LELAND HERRERA AGPOB1 During your visit today, we recorded the following information about you: Kait Rolonar 05/17/2020 8:34 AM Signed Patient was scheduled to see you in office yesterday. Her Facility, [place] [address] , called to see why she wasn't sent home with an orders or updates. Looking in the system it appears the patient somehow ended up in the Radiology department at [facility] instead our office. They were able to complete her x-rays in [facility]. The facility would like to know an [...] Escalera - Fully Assessed Reason for Visit: Care Home Orders [1309] Prescriptions as of 05/17/2020 Sig: [...] esophagitis [K21.9] 12/28/2018 Coronary artery disease involving [place] thrasher*02/04/2019 Other constipation [K59.09] 06/19/2019 Acute right [...] by KAIT DONAHUE on 05/17/20 [facility] CNCOon 05-16-2020 CNCO Letter Text [facility] CNPNon 05-16-2020 CNPN Telephone (AGHWW1) LISA SHIRLEY ([id number]) 1945 F TXT Date Time Provider Department [...] esophagitis [K21.9] 12/28/2018 Coronary artery disease involving [place] thrasher*02/04/2019 Other constipation [K59.09] 06/19/2019 Acute right [...] Status:Closed by CARMINA ATKINS on 05/16/20 Normal [facility] PROGRESSon 05-16-2020 PROGRESS HNO ID: [id number] Author: Nory (RtJade Benitez Service: Radiology Author Type: Crowning Inspector Type: Progress Notes Filed: 05/16/2020 3:46 PM [...] RT Fatmata May 16, 2020 3:45 PM Normal [facility] XR ANKLE 3V AP/LAT/OBL LTon 05-16-2020 [...] talar dome, similar compared to prior radiograph. Fiberglass Roller: PSCTameka Transcribe Date/Time: May 16 2020 4:04P Dictated by : JULIUS ESPINAL MD This examination was interpreted and the report reviewed and electronically signed by: JULIUS ESPINAL MD on May 16 2020 4:09PM EST Normal [facility] 04-06-2020 CNP Telephone (AGPOB1) LISA SHIRLEY ([id number]) 1945 F TXT Date Time Provider Department 04/06/20 [facility] During your visit today, we recorded the [...] esophagitis [K21.9] 12/28/2018 Coronary artery disease involving [place] thrasher*02/04/2019 Other constipation [K59.09] 06/19/2019 Acute right [...] Status:Closed by GAYATHRI FORTE CMA on 04/18/20 [facility] CASE MANAGEMon 03-22-2020 CASE MANAGEM HNO ID: [id number] Author: Paulette Cruz (Sw) Service: ? 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 Destination: [facility] ADDITIONAL CONTACT RESOURCES: Ayo Arreguin [phone] JESUS confirmed pt to admit to [facility] today. Faxed over d/c summary, updated son with transport time. Updated RN and pt. SIGNATURE: JESUS Alvarez PATIENT NAME: Lisa Shirley DATE: March 22, 2020 TIME: 11:31 AM PAGER/CONTACT #: [phone] [facility] NURSING PROGon 03-22-2020 NURSING PROG HNO ID: [id number] Author: Quynh Milton (RnCesario Manzanares RN Service: ? Author Type: Registered Nurse Type: Nursing Progress Note Filed: 03/22/2020 12:27 PM Note Text: Nursing Progress Note Patient Name: Lisa Shirley Patient Location: [id number] 1 Daily Note:1226: report called to [facility] at [facility]. All questions answered. This note was completed by: Quynh Manzanares RN [facility] NURSING PROG HNO ID: [id number] Author: Quynh Manzanares RN Service: ? Author Type: Registered Nurse Type: Nursing Progress Note Filed: 03/22/2020 12:15 PM Note Text: Nursing Progress Note Patient Name: Lisa Shirley Patient Location: [id number] 1 Daily Note: 1115: spoke to Dr Rawls regarding discharging patient with event record monitor. Stated okay to d/c without and pt can have one mailed to her. Left message with cardiac function regarding event record monitor for patient. This note was completed by: Quynh Manzanaers RN [facility] CASE MANAGEMon 03-21-2020 CASE MANAGEM HNO ID: [id number] Author: AMADOU Grubbs (Lisw) Service: Social Work Author Type: Glass Checker Type: Care Mgt Progress Note Filed: 03/21/2020 3:19 PM Note Text: CARE MANAGEMENT PROGRESS NOTE SERVICE DATE: 03/21/2020 SERVICE TIME: 3:17 PM LOS: 13 days ... [facility] has accepted patient if medically stable for tomorrow. If not patient will have to wait until 03/25. Called patient to discuss and called son, Osmany who is in agreement. Cot clip, covid tool and envelope completed. SIGNATURE: AMADOU Grubbs PATIENT NAME: Lisa Shirley DATE: March 21, 2020 TIME: 3:17 PM PAGER/CONTACT #: [phone] [facility] CASE MANAGEM HNO ID: [id number] Author: AMADOU Grubbs (Lisw) Service: Social Work Author Type: Glass Checker Type: Care Mgt Progress Note Filed: 03/21/2020 2:58 PM Note Text: CARE MANAGEMENT PROGRESS NOTE SERVICE DATE: 03/21/2020 SERVICE TIME: 2:58 PM LOS: 13 days IMM Follow Up Copy Given: Yes Copy given to:: Patient Method: By Phone IM letter given to patient. SIGNATURE: AMADOU Grubbs PATIENT NAME: Lisa Shirley DATE: March 21, 2020 TIME: 2:57 PM PAGER/CONTACT #: [phone] [facility] CASE MANAGEM HNO ID: [id number] Author: AMADOU Grubbs (Lisw) Service: Social Work Author Type: Glass Checker Type: Care Mgt Progress Note Filed: 03/21/2020 11:22 AM Note Text: CARE MANAGEMENT PROGRESS NOTE SERVICE DATE: 03/21/2020 SERVICE TIME: 9:57 AM LOS: 13 days ... Therapy updates sent to [facility] and [facility].Awaiting acceptance Cleed patient who had some concerns about her utilities. Phone is busy currently. Will keep trying. Addendum: [facility] called and have beds now but would need a negative covid test before they would take her and she could only be admitted on , tom or Sunday 03/25 due to their staffing. Discussed with Dr. Rawls and messaged Dr. Fulton for rapid covid test. SIGNATURE: AMADOU Grubbs PATIENT NAME: Lisa Shirley DATE: March 21, 2020 TIME: 9:57 AM PAGER/CONTACT #: [phone] Normal [facility] CBC W Auto Diff Bldon 2019 Basophils (Bld) [#/Vol] 0.03 10*3/uL Normal <0.11 [facility] Comment on above: Order Comment: Speci men Type: BLOOD SPECIMEN Performed By: #### 5 7021-8 ####[facility] [id number] [place] [address] Basophils/100 WBC (Bld) 0.2 % Normal [facility] Comment on above: Order Comment: Speci men Type: BLOOD SPECIMEN Performed By: #### 5 7021-8 ####[facility] [id number] [place] [address] Differential cell count method Nom (Bld) Auto Normal [facility] Comment on above: Order Comment: Speci men Type: BLOOD SPECIMEN Performed By: #### 5 7021-8 ####[facility] [id number] [place] [address] Eosinophils (Bld) [#/Vol] 0.05 10*3/uL Normal <0.46 [facility] Comment on above: Order Comment: Speci men Type: BLOOD SPECIMEN Performed By: #### 5 7021-8 ####[facility] [id number] [place] [address] Eosinophils/100 WBC (Bld) 0.3 % Normal [facility] Comment on above: Order Comment: Speci men Type: BLOOD SPECIMEN Performed By: #### 5 7021-8 ####[facility] [id number] [place] [address] Erythrocyte distribution width (RBC) [Ratio] 13.3 % Normal 11.5-15.0 [facility] Comment on above: Order Comment: Speci men Type: BLOOD SPECIMEN Performed By: #### 5 7021-8 ####[facility] [id number] [place] [address] Hematocrit (Bld) [Volume fraction] 33.3 % Low 36.0-46.0 [facility] Comment on above: Order Comment: Speci men Type: BLOOD SPECIMEN Performed By: #### 5 7021-8 ####[facility] [id number] [place] [address] Hemoglobin (Bld) [Mass/Vol] 11.1 g/dL Low 11.5-15.5 [facility] Comment on above: Order Comment: Speci men Type: BLOOD SPECIMEN Performed By: #### 5 7021-8 ####[facility] [id number] [place] [address] IMMATURE GRAN % 0.9 % Normal [facility] Comment on above: Order Comment: Speci men Type: BLOOD SPECIMEN Performed By: #### 5 7021-8 ####[facility]CLIA [id number] [place] [address] IMMATURE GRAN ABS 0.13 k/uL High <0.10 [facility] Comment on above: Order Comment: Speci men Type: BLOOD SPECIMEN Performed By: #### 5 7021-8 ####[facility]ORATORYCLIA [id number] [place] [address] Lymphocytes (Bld) [#/Vol] 2.64 10*3/uL Normal 1.00-4.00 [facility] Comment on above: Order Comment: Speci men Type: BLOOD SPECIMEN Performed By: #### 5 7021-8 ####[facility]IA [id number] [place] [address] Lymphocytes/100 WBC (Bld) 18.4 % Normal [facility] Comment on above: Order Comment: Speci men Type: BLOOD SPECIMEN Performed By: #### 5 7021-8 ####[facility]IA [id number] [place] [address] MCH (RBC) [Entitic mass] 30.7 pg Normal 26.0-34.0 [facility] Comment on above: Order Comment: Speci men Type: BLOOD SPECIMEN Performed By: #### 5 7021-8 ####[facility]ORYCLIA [id number] [place] [address] MCHC (RBC) [Mass/Vol] 33.3 g/dL Normal 30.5-36.0 [facility] Comment on above: Order Comment: Speci men Type: BLOOD SPECIMEN Performed By: #### 5 7021-8 ####[facility]ORYCLIA [id number] [place] [address] MCV (RBC) [Entitic vol] 92.0 fL Normal 80.0-100.0 [facility] Comment on above: Order Comment: Speci men Type: BLOOD SPECIMEN Performed By: #### 5 7021-8 ####[facility]ORYCLIA [id number] [place] [address] Monocytes (Bld) [#/Vol] 0.97 10*3/uL High <0.87 [facility] Comment on above: Order Comment: Speci men Type: BLOOD SPECIMEN Performed By: #### 5 7021-8 ####[facility]CLIA [id number] [place] [address] Monocytes/100 WBC (Bld) 6.8 % Normal [facility] Comment on above: Order Comment: Speci men Type: BLOOD SPECIMEN Performed By: #### 5 7021-8 ####[facility]CLIA [id number] [place] [address] Neutrophils (Bld) [#/Vol] 10.50 10*3/uL High 1.45-7.50 [facility] Comment on above: Order Comment: Speci men Type: BLOOD SPECIMEN Performed By: #### 5 7021-8 ####[facility]CLIA [id number] [place] [address] Neutrophils/100 WBC (Bld) 73.4 % Normal [facility] Comment on above: Order Comment: Speci men Type: BLOOD SPECIMEN Performed By: #### 5 7021-8 ####[facility]ORYCLIA [id number] [place] [address] Nucleated RBC (Bld) [#/Vol] 10*3/uL Normal <0.01 [facility] Comment on above: Order Comment: Speci men Type: BLOOD SPECIMEN Performed By: #### 5 7021-8 ####[facility]ORYCLIA [id number] [place] [address] Nucleated RBC/100 WBC (Bld) [Ratio] 0.0 /100 WBC Normal 0.0 [facility] Comment on above: Order Comment: Speci men Type: BLOOD SPECIMEN Performed By: #### 5 7021-8 ####[facility]ATORYCLIA [id number] [place] [address] Platelet mean volume (Bld) [Entitic vol] 11.5 fL Normal 9.0-12.7 [facility] Comment on above: Order Comment: Speci men Type: BLOOD SPECIMEN Performed By: #### 5 7021-8 ####[facility]ATORYCLIA [id number] [place] [address] Platelets (Bld) [#/Vol] 206 10*3/uL Normal 150-400 [facility] Comment on above: Order Comment: Speci men Type: BLOOD SPECIMEN Performed By: #### 5 7021-8 ####[facility]ATORYCLIA [id number] [place] [address] RBC (Bld) [#/Vol] 3.62 10*6/uL Low 3.90-5.20 [facility] Comment on above: Order Comment: Speci men Type: BLOOD SPECIMEN Performed By: #### 5 7021-8 ####[facility]ORYCLIA [id number] [place] [address] WBC (Bld) [#/Vol] 14.32 10*3/uL High 3.70-11.00 [facility] Comment on above: Order Comment: Speci men Type: BLOOD SPECIMEN Performed By: #### 5 7021-8 ####[facility]ORYCLIA [id number] [place] [address] CONSULT PROGon 03-21-2020 CONSULT PROG HNO ID: [id number] Author: Marissa Banks Service: Endocrinology Author Type: [...] POSIFLUSH) 20 mL INTRAVENOUS 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 (Med.Supl.;Non-Drugs) PRN [...] 2020 TIME: 7:12 AM PAGER: [phone] Normal [facility] Comp Metab 2000 Pnl SerPlon 03-21-2020 Albumin [Mass/Vol] 2.5 g/dL Low 3.9-4.9 [facility] Comment on above: Order Comment: Speci men Type: BLOOD SPECIMEN Performed By: #### 2 4321-2 #### [facility] CLIA [id number] [address] [place] [address] ALP [Catalytic activity/Vol] 56 U/L Normal 34-123 [facility] Comment on above: Order Comment: Speci men Type: BLOOD SPECIMEN Performed By: #### 2 4321-2 #### [facility] CLIA [id number] [address] [place] [address] ALT With P-5'-P [Catalytic activity/Vol] 11 U/L Normal 7-38 [facility] Comment on above: Order Comment: Speci men Type: BLOOD SPECIMEN Performed By: #### 2 4321-2 #### [facility] CLIA [id number] [address] [place] [address] Anion gap [Moles/Vol] 8 mmol/L Low 9-18 [facility] Comment on above: Order Comment: Speci men Type: BLOOD SPECIMEN Performed By: #### 2 4321-2 #### [facility] CLIA [id number] [address] [place] [address] AST With P-5'-P [Catalytic activity/Vol] 18 U/L Normal 13-35 [facility] Comment on above: Order Comment: Speci men Type: BLOOD SPECIMEN Performed By: #### 2 4321-2 #### [facility] CLIA [id number] [address] [place] [address] Bilirubin [Mass/Vol] 0.6 mg/dL Normal 0.2-1.3 [facility] Comment on above: Order Comment: Speci men Type: BLOOD SPECIMEN Performed By: #### 2 4321-2 #### [facility] CLIA [id number] [address] [place] [address] Calcium [Mass/Vol] 7.1 mg/dL Low 8.5-10.2 [facility] [facility] Comment on above: Order Comment: Speci men Type: BLOOD SPECIMEN Performed By: #### 2 4321-2 #### [facility] CLIA [id number] [address] [place] [address] Chloride [Moles/Vol] 114 mmol/L High 97-105 [facility] Comment on above: Order Comment: Speci men Type: BLOOD SPECIMEN Performed By: #### 2 4321-2 #### [facility] CLIA [id number] [address] [place] [address] CO2 [Moles/Vol] 19 mmol/L Low 22-30 [facility] Comment on above: Order Comment: Speci men Type: BLOOD SPECIMEN Performed By: #### 2 4321-2 #### [facility] CLIA [id number] [address] [place] [address] Creatinine [Mass/Vol] 0.93 mg/dL Normal 0.58-0.96 [facility] Comment on above: Order Comment: Speci men Type: BLOOD SPECIMEN Performed By: #### 2 4321-2 #### [facility] CLIA [id number] [address] [place] [address] GFR/1.73 sq M.predicted MDRD (S/P/Bld) [Vol rate/Area] mL/min/{1.73_m2} Normal [facility] Comment on above: Order Comment: Speci [...] GFR. Performed By: #### 2 4321-2 #### [facility] CLIA [id number] [address] [place] [address] Glucose [Mass/Vol] 94 mg/dL Normal 74-99 [facility] Comment on above: Order Comment: Speci men Type: BLOOD SPECIMEN Result Comment: The [place] Diabetes Association (ADA) provides guidance for cutoff [...] Standards of Medical Care in Diabetes 2016, [place] [employer]. Diabetes Care. 2016.39(Suppl 1). Performed By: #### 2 4321-2 #### [facility] CLIA [id number] [address] [place] [address] Potassium [Moles/Vol] 3.3 mmol/L Low 3.7-5.1 [facility] Comment on above: Order Comment: Speci men Type: BLOOD SPECIMEN Performed By: #### 2 4321-2 #### [facility] CLIA [id number] [address] [place] [address] Protein [Mass/Vol] 4.9 g/dL Low 6.3-8.0 [facility] Comment on above: Order Comment: Speci men Type: BLOOD SPECIMEN Performed By: #### 2 4321-2 #### [facility] CLIA [id number] [address] [place] [address] Sodium [Moles/Vol] 141 mmol/L Normal 136-144 [facility] Comment on above: Order Comment: Speci men Type: BLOOD SPECIMEN Performed By: #### 2 4321-2 #### [facility] CLIA [id number] [address] [place] [address] Urea nitrogen [Mass/Vol] 14 mg/dL Normal 7-21 [facility] Comment on above: Order Comment: Speci men Type: BLOOD SPECIMEN Performed By: #### 2 4321-2 #### [facility] CLIA [id number] [address] [place] [address] NURSING PROGon 03-21-2020 NURSING PROG HNO ID: [id number] Author: Aron (Rn) JONNY Rothman Service: ? Author Type: Registered Nurse Type: Nursing Progress Note Filed: 03/21/2020 12:39 AM Note Text: Nursing Progress: Topic: RESTRAINT NON-VIOLENT PATIENT NAME: Lisa Shirley PATIENT LOCATION: [place] [address] [address]* The patient demonstrates Attempting to Remove Medical [...] TIME: 12:35 AM Aron Rothman RN Normal [facility] PROGRESSon 03-21-2020 PROGRESS HNO ID: [id number] Author: Theo Rawls MD Service: Hospital Medicine Author Type: Physician Type: Progress Notes Filed: 03/21/2020 7:01 PM Note Text: DEPARTMENT OF HOSPITAL MEDICINE PROGRESS NOTE SERVICE DATE: 03/21/2020 SERVICE TIME: 6:57 PM Hospital Medicine/Primary Attending: Theo Rawls MD NIGHT AND WEEKEND COVERAGE: After 7pm please page [phone] CHIEF COMPLAINT: Follow-up for cerebrovascular accident SUBJECTIVE: [...] POSIFLUSH) 20 mL INTRAVENOUS 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 (Med.Supl.;Non-Drugs) PRN [...] TIME: 6:57 PM PAGER/CONTACT #: [phone] Montesinos [facility] PROGRESS HNO ID: [id number] Author: Leland Herrera Service: Orthopaedic Surgery Author [...] MD Orthopedic Surgery Resident 03/21/2020 4:06 AM [facility] SARS-CoV-2 RNA Resp Ql SHLOMO+p robeon 03-21-2020 SARS-CoV-2 RNA Resp Ql SHLOMO+probe COVID 19 RESULT: SARS-CoV-2 (Agent of COVID-19) Not Detected by PCR. This test has been authorized by FDA under an Emergency Use Authorization (EUA) [facility] Comment on above: Performed By: #### 9 4500-6 ####[facility] [id number] [place] [address] THERAPY NTon 03-21-2020 THERAPY NT HNO ID: [id number] Author: Shannan Jean-BaptisteOtr/Darion Richard Service: Occupational Therapy Author Type: Occupational Therapist Type: Therapy (PT/OT/Speech/Resp) Filed: 03/21/2020 4:04 PM Note Text: Occupational Therapy Treatment SERVICE DATE: 03/21/2020 SERVICE TIME: 1514 to 1537 ROOM: [place] [address] Recommended Discharge Disposition: Acute Rehab Recommended Discharge [...] Walk in Laundry: Minimally completes Equipment Owned: 4INFO Bars-Shower Prior Functional Level: (driving, activity limited by LBP) Prior Functional Level Comments: 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; 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 d/t 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 pain [...] Moderate Assistance Toilet Transfer with: Moderate Assistance(To [facility] ) Tolerate (minutes of functional activity): 10 [...] (ADL);Muscle Weakness (generalized) Interventions Provided: Cognitive Training (99041 and 57088);Self Mcfp Management (40140) Self Mcfp Management (56399) Treatment Minutes: 15 $ Self Mcfp Management (52323) Billed Units: 1 unit Cognitive Training Per First 15 Minutes (46012) : 8 $ Cognitive Training Per First 15 Minutes Billed Units (63281) 2020: 1 unit Engaged patient in orientation [...] March 21, 2020 TIME: 3:50 PM Normal [facility] Bas Metab 2000 Pnl SerPlon 1 05-20-2019 Anion gap [Moles/Vol] 9 mmol/L Normal 9-18 [facility] Comment on above: Order Comment: Speci men Type: BLOOD SPECIMEN Performed By: #### 2 4321-2 ####[facility] [id number] [place] [address] Calcium [Mass/Vol] 7.6 mg/dL Low 8.5-10.2 [facility] Comment on above: Order Comment: Speci men Type: BLOOD SPECIMEN Performed By: #### 2 4321-2 ####[facility] [id number] [place] [address] Chloride [Moles/Vol] 111 mmol/L High 97-105 [facility] Comment on above: Order Comment: Speci men Type: BLOOD SPECIMEN Performed By: #### 2 4321-2 ####[facility] [id number] [place] [address] CO2 [Moles/Vol] 22 mmol/L Normal 22-30 [facility] Comment on above: Order Comment: Speci men Type: BLOOD SPECIMEN Performed By: #### 2 4321-2 ####[facility] [id number] [place] [address] Creatinine [Mass/Vol] 1.00 mg/dL High 0.58-0.96 [facility] Comment on above: Order Comment: Speci men Type: BLOOD SPECIMEN Performed By: #### 2 4321-2 ####[facility] [id number] [place] [address] GFR/1.73 sq M.predicted MDRD (S/P/Bld) [Vol rate/Area] mL/min/{1.73_m2} Normal [facility] Comment on above: Order Comment: Speci [...] actual GFR. Performed By: #### 2 4321-2 ####[facility] [id number] [place] [address] Glucose [Mass/Vol] 134 mg/dL High 74-99 [facility] Comment on above: Order Comment: Speci men Type: BLOOD SPECIMEN Result Comment: The [place] Diabetes Association (ADA) provides guidance for cutoff [...] Standards of Medical Care in Diabetes 2016, [place] [employer]. Diabetes Care. 2016.39(Suppl 1). Performed By: #### 2 4321-2 ####[facility] [id number] [place] [address] Potassium [Moles/Vol] 3.7 mmol/L Normal 3.7-5.1 [facility] Comment on above: Order Comment: Speci men Type: BLOOD SPECIMEN Performed By: #### 2 4321-2 ####[facility] [id number] [place] [address] Sodium [Moles/Vol] 142 mmol/L Normal 136-144 [facility] Comment on above: Order Comment: Speci men Type: BLOOD SPECIMEN Performed By: #### 2 4321-2 ####[facility] [id number] [place] [address] Urea nitrogen [Mass/Vol] 18 mg/dL Normal 7-21 [facility] Comment on above: Order Comment: Speci men Type: BLOOD SPECIMEN Performed By: #### 2 4321-2 ####[facility] [id number] [place] [address] CASE MANAGEMon 03-20-2020 CASE MANAGEM HNO ID: [id number] Author: AMADOU Grubbs (Lisw) Service: Social Work Author Type: Glass Checker Type: Care Mgt Progress Note Filed: 03/20/2020 [...] 20, 2020 TIME: 10:36 AM PAGER/CONTACT #: [phone] Normal [facility] CBC W Auto Diff Bldon 2019 Basophils (Bld) [#/Vol] 10*3/uL Normal <0.11 [facility] Comment on above: Order Comment: Speci men Type: BLOOD SPECIMEN Performed By: #### 5 7021-8 #### [facility] CLIA [id number] [address] [place] [address] Basophils/100 WBC (Bld) 0.1 % Normal [facility] Comment on above: Order Comment: Speci men Type: BLOOD SPECIMEN Performed By: #### 5 7021-8 #### [facility] CLIA [id number] [address] [place] [address] Differential cell count method Nom (Bld) Auto Normal [facility] Comment on above: Order Comment: Speci men Type: BLOOD SPECIMEN Performed By: #### 5 7021-8 #### [facility] CLIA [id number] [address] [place] [address] Eosinophils (Bld) [#/Vol] 10*3/uL Normal <0.46 [facility] Comment on above: Order Comment: Speci men Type: BLOOD SPECIMEN Performed By: #### 5 7021-8 #### [facility] CLIA [id number] [address] [place] [address] Eosinophils/100 WBC (Bld) 0.1 % Normal [facility] Comment on above: Order Comment: Speci men Type: BLOOD SPECIMEN Performed By: #### 5 7021-8 #### [facility] CLIA [id number] [address] [place] [address] Erythrocyte distribution width (RBC) [Ratio] 13.2 % Normal 11.5-15.0 [facility] Comment on above: Order Comment: Speci men Type: BLOOD SPECIMEN Performed By: #### 5 7021-8 #### [facility] CLIA [id number] [address] [place] [address] Hematocrit (Bld) [Volume fraction] 37.0 % Normal 36.0-46.0 [facility] Comment on above: Order Comment: Speci men Type: BLOOD SPECIMEN Performed By: #### 5 7021-8 #### [facility] CLIA [id number] [address] [place] [address] Hemoglobin (Bld) [Mass/Vol] 12.7 g/dL Normal 11.5-15.5 [facility] Comment on above: Order Comment: Speci men Type: BLOOD SPECIMEN Performed By: #### 5 7021-8 #### [facility] CLIA [id number] [address] [place] [address] IMMATURE GRAN % 1.0 % Normal [facility] Comment on above: Order Comment: Speci men Type: BLOOD SPECIMEN Performed By: #### 5 7021-8 #### [facility] CLIA [id number] [address] [place] [address] IMMATURE GRAN ABS 0.15 k/uL High <0.10 [facility] Comment on above: Order Comment: Speci men Type: BLOOD SPECIMEN Performed By: #### 5 7021-8 #### [facility] CLIA [id number] [address] [place] [address] Lymphocytes (Bld) [#/Vol] 2.58 10*3/uL Normal 1.00-4.00 [facility] Comment on above: Order Comment: Speci men Type: BLOOD SPECIMEN Performed By: #### 5 7021-8 #### [facility] CLIA [id number] [address] [place] [address] Lymphocytes/100 WBC (Bld) 17.3 % Normal [facility] Comment on above: Order Comment: Speci men Type: BLOOD SPECIMEN Performed By: #### 5 7021-8 #### [facility] CLIA [id number] [address] [place] [address] MCH (RBC) [Entitic mass] 31.1 pg Normal 26.0-34.0 [facility] Comment on above: Order Comment: Speci men Type: BLOOD SPECIMEN Performed By: #### 5 7021-8 #### [facility] CLIA [id number] [address] [place] [address] MCHC (RBC) [Mass/Vol] 34.3 g/dL Normal 30.5-36.0 [facility] Comment on above: Order Comment: Speci men Type: BLOOD SPECIMEN Performed By: #### 5 7021-8 #### [facility] CLIA [id number] [address] [place] [address] MCV (RBC) [Entitic vol] 90.7 fL Normal 80.0-100.0 [facility] Comment on above: Order Comment: Speci men Type: BLOOD SPECIMEN Performed By: #### 5 7021-8 #### [facility] CLIA [id number] [address] [place] [address] Monocytes (Bld) [#/Vol] 0.93 10*3/uL High <0.87 [facility] Comment on above: Order Comment: Speci men Type: BLOOD SPECIMEN Performed By: #### 5 7021-8 #### [facility] CLIA [id number] [address] [place] [address] Monocytes/100 WBC (Bld) 6.2 % Normal [facility] Comment on above: Order Comment: Speci men Type: BLOOD SPECIMEN Performed By: #### 5 7021-8 #### [facility] CLIA [id number] [address] [place] [address] Neutrophils (Bld) [#/Vol] 11.20 10*3/uL High 1.45-7.50 [facility] Comment on above: Order Comment: Speci men Type: BLOOD SPECIMEN Performed By: #### 5 7021-8 #### [facility] CLIA [id number] [address] [place] [address] Neutrophils/100 WBC (Bld) 75.3 % Normal [facility] Comment on above: Order Comment: Speci men Type: BLOOD SPECIMEN Performed By: #### 5 7021-8 #### [facility] CLIA [id number] [address] [place] [address] Nucleated RBC (Bld) [#/Vol] 10*3/uL Normal <0.01 [facility] Comment on above: Order Comment: Speci men Type: BLOOD SPECIMEN Performed By: #### 5 7021-8 #### [facility] CLIA [id number] [address] [place] [address] Nucleated RBC/100 WBC (Bld) [Ratio] 0.0 /100 WBC Normal 0.0 [facility] Comment on above: Order Comment: Speci men Type: BLOOD SPECIMEN Performed By: #### 5 7021-8 #### [facility] CLIA [id number] [address] [place] [address] Platelet mean volume (Bld) [Entitic vol] 11.5 fL Normal 9.0-12.7 [facility] Comment on above: Order Comment: Speci men Type: BLOOD SPECIMEN Performed By: #### 5 7021-8 #### [facility] CLIA [id number] [address] [place] [address] Platelets (Bld) [#/Vol] 229 10*3/uL Normal 150-400 [facility] Comment on above: Order Comment: Speci men Type: BLOOD SPECIMEN Performed By: #### 5 7021-8 #### [facility] CLIA [id number] [address] [place] [address] RBC (Bld) [#/Vol] 4.08 10*6/uL Normal 3.90-5.20 [facility] Comment on above: Order Comment: Speci men Type: BLOOD SPECIMEN Performed By: #### 5 7021-8 #### [facility] CLIA [id number] [address] [place] [address] WBC (Bld) [#/Vol] 14.89 10*3/uL High 3.70-11.00 [facility] Comment on above: Order Comment: Speci men Type: BLOOD SPECIMEN Performed By: #### 5 7021-8 #### [facility] CLIA [id number] [address] [place] [address] CONSULT PROGon 03-20-2020 CONSULT PROG HNO ID: [id number] Author: Marissa Banks Service: Endocrinology Author Type: [...] POSIFLUSH) 20 mL INTRAVENOUS 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 (Med.Supl.;Non-Drugs) PRN [...] March 20, 2020 TIME: 8:30 AM PAGER: [phone] [facility] NURSING PROGon 03-20-2020 NURSING PROG HNO ID: [id number] Author: Aron (Rn) JONNY Rothman Service: ? Author Type: Registered Nurse Type: Nursing Progress Note Filed: 03/19/2020 10:33 PM Note Text: Nursing Progress: Topic: RESTRAINT NON-VIOLENT PATIENT NAME: Lisa Shirley PATIENT LOCATION: [place] [address]/[place] [address]* The patient demonstrates Lack of Understanding/Ability to [...] 2020 TIME: 10:31 PM Aron Rothman RN [facility] PROGRESSon 03-20-2020 PROGRESS HNO ID: [id number] Author: Panda Coulter Service: Hospital Medicine Author Type: Physician Type: Progress Notes Filed: 03/20/2020 7:38 PM Note Text: DEPARTMENT OF HOSPITAL MEDICINE PROGRESS NOTE SERVICE DATE: 03/20/2020 SERVICE TIME: 7:28 PM Hospital Medicine/Primary Attending: Panda Coulter MD NIGHT AND WEEKEND COVERAGE: [place] COVERAGE: From 7am - 7pm, please call [phone] After 7pm, please call cross cover pager #[phone] Subjective INTERVAL HPI: patient with leukocytosis but [...] Inserted (PICC) Right Arm Through Introducer 5.0 [place] 8 days Drain External Collection Device 03/19/20 [...] neuro, event record hookup was ordered in [facility] ? 3. ?Diabetes mellitus: POA, stable [...] 20, 2020 TIME: 7:28 PM PAGER/CONTACT #: [phone] [phone] [facility] PROGRESS HNO ID: [id number] Author: Leland Herrera Service: Orthopaedic Surgery Author [...] Evaluation AND recommendations. - DVT PPx: SCD. Vences for prophylaxis per primary team. 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 SIGNATURE: Roxy Drummond PT PATIENT NAME: Lisa Shirley DATE: March 20, 2020 TIME: 4:20 PM Normal [facility] THERAPY NT HNO ID: [id number] Author: Shaista Teran/Darion Melendez Service: Occupational Therapy Author Type: Occupational Therapist Type: Therapy (PT/OT/Speech/Resp) Filed: 03/20/2020 4:14 PM Note Text: Occupational Therapy Treatment(Re-Evaluation) SERVICE DATE: 03/20/2020 SERVICE TIME: 1545 to 1600 ROOM: [id number] Recommended Discharge Disposition: Acute Rehab Recommended Discharge [...] Walk in Laundry: Minimally completes Equipment Owned: Patch of LandShower Prior Functional Level: (driving, activity limited by LBP) Prior Functional Level Comments: 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; 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 d/t 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 pain [...] Weakness (generalized) Interventions Provided: Re-evaluation $ Reevaluation (59181) Billed Units: 1 unit Training AND education [...] March 20, 2020 TIME: 4:14 PM Normal [facility] THERAPY NT HNO ID: [id number] Author: Abbie (Paddle Dyeing Machine Operator) ALEYDA De La Torre/ARCHANA Service: Speech/Swallow Author Type: Speech Language Pathologist Type: Therapy (PT/OT/Speech/Resp) Filed: 03/20/2020 11:27 AM Note Text: Speech Therapy Treatment SERVICE DATE: 03/20/2020 SERVICE TIME: 1000 to 1030 ROOM: [id number] IMPRESSION: Patient demonstrates oral pharyngeal dysphagia which [...] with tolerance of PO intake Continue skilled HIGHWAY ADMINISTRATIVE ENGINEER services due to : Dysphagia, Communication difficulties, Safety concerns, Education / training needs Speech Therapy Problem List: Dysphagia;Cognitive-Linguis tic Impairment;Dysarthria Patient Report: I want to get out of here. I want better food. Current Status Current Feeding Method: Oral Current Diet Textures: Dysphagia Level 1 (Pureed), Mildly Thick Liquids IDDSI Level 2 ([place] Thick) Swallow Position Of Patient During Assessment: [...] tolerate Mildly Thick Liquids IDDSI Level 2 ([place] Thick) consistency while utilizing compensatory/swallowing strategies given [...] following cerebral infarction Interventions Provided: Dysphagia Therapy (58418);Speech Therapy (22359) $ Dysphagia Therapy (95025) Billed Units: 1 unit $ Speech Therapy (77806) Billed Units: 1 unit Training and education provided in: Swallowing Strategies, Dysphagia Management, Motor Speech Skills The following therapeutic skills were used:: Tactile cuing, Repetitive task learning, Verbal cuing, Interpretation and instruction of instrumental assessment Total Treatment Time (minutes): 30 Home Environment Prior Functional Level: Within Functional Limits Patient Lives With: Self/Alone Assistance Available: typecasting machine operator Prior Swallowing Function/Diet Textures: Regular Consistency;Thin Liquids IDDSI Level 0 Please see discipline specific clinical documentation flowsheet for complete details for this therapy evaluation/treatment. SIGNATURE: Abbie De La Torre CCC-HIGHWAY ADMINISTRATIVE ENGINEER PATIENT NAME: Lisa Shirley DATE: March 20, 2020 TIME: 11:08 AM [facility] ALLIED HEALTHon 03-19-2020 ALLIED HEALTH HNO ID: [id number] Author: Jade Fuentes (Rt) Service: Radiology Author Type: Crowning Inspector Type: Allied Health Filed: 03/19/2020 4:50 PM [...] Marleny March 19, 2020 4:50 PM Normal [facility] ALLIED HEALTH HNO ID: [id number] Author: Elan Jean-BaptisteRtJade Cedeno Service: Radiology Author Type: Crowning Inspector Type: Allied Health Filed: 03/19/2020 2:17 PM [...] YOON Calderon March 19, 2020 2:16 PM [facility] ANES POSTPROC EVALon 020 ANES POSTPROC EVAL HNO ID: [id number] Author: Paul Alejandro Service: ? Author Type: Physician Type: Anesthesia Postprocedure Evaluation Filed: 03/19/2020 4:36 PM Note Text: POST ANESTHESIA EVALUATION NOTE : 1945 Procedure Summary Date: 03/19/20 Room / Location: [place] / [place] Anesthesia Start: 1231 Anesthesia Stop: 152 Procedures: ORIF ANKLE TRIMALLEOLAR, [...] March 19, 2020 TIME: 4:35 PM CSN: [id number] [facility] ANES PRE-OPon 03-19-2020 ANES PRE-OP HNO ID: [id number] Author: Paul Alejandro Service: ? Author Type: [...] Problems CARDIO (+) Coronary artery disease involving [place] coronary artery of [place] heart without angina pectoris (+) Essential hypertension [...] GFR NEURO-PSYCH (+) Acute right MCA stroke ([facility]) I - PHYSICAL EVALUATION AIRWAY [...] - [MAR Hold due to Transfer] pill 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 (Med.Supl.;Non-Drugs) PRN [...] March 19, 2020 TIME: 1:33 PM CSN: [id number] [facility] CASE MANAGEMon 03-19-2020 CASE MANAGEM HNO ID: [id number] Author: Bertha Kerns (Lisw), BYPRODUCT ENGINEER Service: Social Work Author Type: Glass Checker Type: Care Mgt Progress Note Filed: 03/19/2020 9:51 AM Note Text: CARE MANAGEMENT PROGRESS NOTE SERVICE DATE: 03/19/2020 SERVICE TIME: 9:44 AM LOS: 11 days ... [facility] has accepted patient. Called patient in her room several times and she does not answer. Called her cell phone and left a message. Called her son, Osmany. He states he has not been able to reach her this weekend either by phone. Explained that [facility] Son was open to this but need to confirm with patient . Discussed with nurse who will position phone better for patient next tmie she goes into the isolation room. SIGNATURE: AMADOU Grubbs PATIENT NAME: Lisa Shirley DATE: March 19, 2020 TIME: 9:44 AM PAGER/CONTACT #: [phone] Normal [facility] CBC (hemogram) Bld [place] Erythrocyte distribution width (RBC) [Ratio] 13.1 % Normal 11.5-15.0 [facility] Comment on above: Order Comment: Speci men Type: BLOOD SPECIMEN Performed By: #### 5 8410-2 #### [facility] CLIA [id number] [address] [place] [address] Hematocrit (Bld) [Volume fraction] 38.7 % Normal 36.0-46.0 [facility] Comment on above: Order Comment: Speci men Type: BLOOD SPECIMEN Performed By: #### 5 8410-2 #### [facility] CLIA [id number] [address] [place] [address] Hemoglobin (Bld) [Mass/Vol] 12.9 g/dL Normal 11.5-15.5 [facility] Comment on above: Order Comment: Speci men Type: BLOOD SPECIMEN Performed By: #### 5 8410-2 #### [facility] CLIA [id number] [address] [place] [address] MCH (RBC) [Entitic mass] 30.7 pg Normal 26.0-34.0 [facility] Comment on above: Order Comment: Speci men Type: BLOOD SPECIMEN Performed By: #### 5 8410-2 #### [facility] CLIA [id number] [address] [place] [address] MCHC (RBC) [Mass/Vol] 33.3 g/dL Normal 30.5-36.0 [facility] Comment on above: Order Comment: Speci men Type: BLOOD SPECIMEN Performed By: #### 5 8410-2 #### [facility] CLIA [id number] [address] [place] [address] MCV (RBC) [Entitic vol] 92.1 fL Normal 80.0-100.0 [facility] Comment on above: Order Comment: Speci men Type: BLOOD SPECIMEN Performed By: #### 5 8410-2 #### [facility] CLIA [id number] [address] [place] [address] Nucleated RBC (Bld) [#/Vol] 10*3/uL Normal <0.01 [facility] Comment on above: Order Comment: Speci men Type: BLOOD SPECIMEN Performed By: #### 5 8410-2 #### [facility] CLIA [id number] [address] [place] [address] Platelet mean volume (Bld) [Entitic vol] 11.2 fL Normal 9.0-12.7 [facility] Comment on above: Order Comment: Speci men Type: BLOOD SPECIMEN Performed By: #### 5 8410-2 #### [facility] CLIA [id number] [address] [place] [address] Platelets (Bld) [#/Vol] 253 10*3/uL Normal 150-400 [facility] Comment on above: Order Comment: Speci men Type: BLOOD SPECIMEN Performed By: #### 5 8410-2 #### [facility] CLIA [id number] [address] [place] [address] RBC (Bld) [#/Vol] 4.20 10*6/uL Normal 3.90-5.20 [facility] Comment on above: Order Comment: Speci men Type: BLOOD SPECIMEN Performed By: #### 5 8410-2 #### [facility] CLIA [id number] [address] [place] [address] WBC (Bld) [#/Vol] 12.84 10*3/uL High 3.70-11.00 [facility] Comment on above: Order Comment: Speci men Type: BLOOD SPECIMEN Performed By: #### 5 8410-2 #### [facility] CLIA [id number] [address] [place] [address] CONSULT PROGon 03-19-2020 CONSULT PROG HNO ID: [id number] Author: Marissa Banks Service: Endocrinology Author Type: [...] POSIFLUSH) 20 mL INTRAVENOUS 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 (Med.Supl.;Non-Drugs) PRN [...] March 19, 2020 TIME: 7:04 AM PAGER: [phone] Normal [facility] NUTRITIONon 03-19-2020 NUTRITION HNO ID: [id number] Author: Tyra Rios) DANIKA Gallardo Service: Nutrition [...] - 90 Grams protein determined by: 1.2-1.5 g/kg;[place] Body Weight Care Plan: Change diet to [...] March 19, 2020 TIME: 10:15 AM PAGER: [phone] Normal [facility] OPERATIVE NOon 03-19-2020 OPERATIVE NO HNO ID: [id number] Author: Leland Herrera Service: Orthopaedic Surgery Author Type: Physician Type: Operative Report Filed: 03/20/2020 10:55 AM Note Text: ORTHOPAEDIC OPERATIVE REPORT PATIENT NAME: Lisa Shirley Surgery/Procedure Date: 03/19/2020 Incision/Procedure Start Time: 12:58 PM Incision Close/Procedure End Time: 2:18 PM Surgeon(s) and Load Blocker(s): Surgeon(s) and Role: * Leland Herrera - [...] and sterilely draped for the procedure. The [facility] timeout protocol was performed. A lateral [...] to be very poor. Two 2.7 mm yrtgtzge-im-jwusmnmgs lag screws were applied. The Synthes 10-hole [...] Evaluation AND recommendations. - DVT PPx: SCD. Vences for prophylaxis per primary team. No chemical [...] March 20, 2020 TIME: 10:48 AM Normal [facility] PROGRESSon 03-19-2020 PROGRESS HNO ID: [id number] Author: Panda Coulter Service: Hospital Medicine Author Type: Physician Type: Progress Notes Filed: 03/19/2020 6:12 PM Note Text: DEPARTMENT OF HOSPITAL MEDICINE PROGRESS NOTE SERVICE DATE: 03/19/2020 SERVICE TIME: 5:51 PM Hospital Medicine/Primary Attending: Panda Coulter MD NIGHT AND WEEKEND COVERAGE: BUCKEYE COVERAGE: From 7am - 7pm, please call [phone] After 7pm, please call cross cover pager #[phone] Subjective INTERVAL HPI: patient went to or [...] Inserted (PICC) Right Arm Through Introducer 5.0 [place] 7 days Drain External Collection Device 03/19/20 [...] neuro, event record hookup was ordered in [facility] ? 3. ?Diabetes mellitus: POA, stable [...] 19, 2020 TIME: 5:51 PM PAGER/CONTACT #: [phone] etx [phone] [facility] PROGRESS HNO ID: [id number] Author: Igor (Brea) Guero Service: Orthopaedic Surgery [...] MD March 19, 2020 6:10 AM Normal [facility] TYPE AND SCREENon 03-19-2020 ABO AB Normal [facility] Comment on above: Order Comment: Speci men Type: SWAB OF INTERNAL NOSE Performed By: #### S APCR #### [facility] CLIA [id number] [address] [place] [address] HISTORICAL AB SCR STATUS Negative [facility] Comment on above: Order Comment: Speci men Type: SWAB OF INTERNAL NOSE Performed By: #### S APCR #### [facility] CLIA [id number] [address] [place] [address] Rh Nom (Bld) Positive [facility] Comment on above: Order Comment: Speci men Type: SWAB OF INTERNAL NOSE Performed By: #### S APCR #### [facility] CLIA [id number] [address] [place] [address] TYPE AND SCREEN EXPIRATION 03/22/2020 23:59 Normal [facility] Comment on above: Order Comment: Speci men Type: SWAB OF INTERNAL NOSE Performed By: #### S APCR #### [facility] CLIA [id number] [address] [place] [address] XR ANKLE 3V AP/LAT/OBL LTon 03-19-2020 XR ANKLE 3V AP/LAT/OBL LT Final Report DATE OF EXAM: Mar 19 2020 4:34PM AKX 5298 - XR ANKLE 3V AP/LAT/OBL LT / PROCEDURE REASON: Post-operative / post-procedure assessment, asymptomatic Physician Interpretation EXAMINATION: XR ANKLE 3V AP/LAT/OBL LT, XR ANKLE 3V AP/LAT/OBL LT CLINICAL HISTORY: post op L ankle (accession [id number]), O.R.I.F. LEFT ANKLE (accession [id number]) Technique: XR ANKLE 3V AP/LAT/OBL LT, XR ANKLE 3V AP/LAT/OBL LT Fluoroscopic Radiation Summary: Plane A, Air Kerma: 0.0 mGy (accession [id number]), 1.0 mGy (accession [id number]) Dose Area Product (DAP): 0.0 mGycm mGycm [...] Postoperative imaging with satisfactory alignment left ankle. Fiberglass Roller: [facility] Transcribe Date/Time: Mar 19 2020 4:47P Dictated by : WILIAM MCGREGOR MD This examination was interpreted and the report reviewed and electronically signed by: WILIAM MCGREGOR MD on Mar 19 2020 4:52PM EST Normal [facility] XR ANKLE 3V AP/LAT/OBL LT Final Report DATE OF EXAM: Mar 19 2020 2:15PM [facility] 5298 - XR ANKLE 3V AP/LAT/OBL LT / PROCEDURE REASON: O.R.I.F. Physician Interpretation EXAMINATION: XR ANKLE 3V AP/LAT/OBL LT, XR ANKLE 3V AP/LAT/OBL LT CLINICAL HISTORY: post op L ankle (accession [id number]), O.R.I.F. LEFT ANKLE (accession [id number]) Technique: XR ANKLE 3V AP/LAT/OBL LT, XR ANKLE 3V AP/LAT/OBL LT Fluoroscopic Radiation Summary: Plane A, Air Kerma: 0.0 mGy (accession [id number]), 1.0 mGy (accession [id number]) Dose Area Product (DAP): 0.0 mGycm mGycm [...] Postoperative imaging with satisfactory alignment left ankle. Fiberglass Roller: TENISHA Transcribe Date/Time: Mar 19 2020 4:47P Dictated by : WILIAM MCGREGOR MD This examination was interpreted and the report reviewed and electronically signed by: WILIAM MCGREGOR MD on Mar 19 2020 4:52PM EST Normal [facility] Bas Metab 2000 Pnl SerPlon 1 05-18-2019 Anion gap [Moles/Vol] 11 mmol/L Normal 9-18 [facility] Comment on above: Order Comment: Speci men Type: BLOOD SPECIMEN Performed By: #### 2 4321-2 ####[facility] [id number] [place] [address] Calcium [Mass/Vol] 8.1 mg/dL Low 8.5-10.2 [facility] Comment on above: Order Comment: Speci men Type: BLOOD SPECIMEN Performed By: #### 2 4321-2 ####[facility] [id number] [place] [address] Chloride [Moles/Vol] 105 mmol/L Normal 97-105 [facility] Comment on above: Order Comment: Speci men Type: BLOOD SPECIMEN Performed By: #### 2 4321-2 ####[facility] [id number] [place] [address] CO2 [Moles/Vol] 25 mmol/L Normal 22-30 [facility] Comment on above: Order Comment: Speci men Type: BLOOD SPECIMEN Performed By: #### 2 4321-2 ####[facility] [id number] [place] [address] Creatinine [Mass/Vol] 1.03 mg/dL High 0.58-0.96 [facility] Comment on above: Order Comment: Speci men Type: BLOOD SPECIMEN Performed By: #### 2 4321-2 ####[facility] [id number] [place] [address] GFR/1.73 sq M.predicted MDRD (S/P/Bld) [Vol rate/Area] mL/min/{1.73_m2} Normal [facility] Comment on above: Order Comment: Speci [...] actual GFR. Performed By: #### 2 4321-2 ####[facility] [id number] [place] [address] Glucose [Mass/Vol] 178 mg/dL High 74-99 [facility] Comment on above: Order Comment: [facility]i [facility] Type: BLOOD SPECIMEN Result Comment: The [place] [employer] (ADA) provides guidance for cutoff [...] Standards of Medical Care in Diabetes 2016, [place] [employer]. Diabetes Care. 2016.39(Suppl 1). Performed By: #### 2 4321-2 ####[facility] [id number] [place] [address] Potassium [Moles/Vol] 3.9 mmol/L Normal 3.7-5.1 [facility] Comment on above: Order Comment: Speci men Type: BLOOD SPECIMEN Performed By: #### 2 4321-2 ####[facility] [id number] [place] [address] Sodium [Moles/Vol] 141 mmol/L Normal 136-144 [facility] Comment on above: Order Comment: Speci men Type: BLOOD SPECIMEN Performed By: #### 2 4321-2 ####[facility] [id number] [place] [address] Urea nitrogen [Mass/Vol] 26 mg/dL High 7-21 [facility] Comment on above: Order Comment: Speci men Type: BLOOD SPECIMEN Performed By: #### 2 4321-2 ####[facility] [id number] [place] [address] CONSULT PROGoyoan 03-18-2020 CONSULT PROG HNO ID: [id number] Author: Marissa Banks Service: Endocrinology Author Type: [...] POSIFLUSH) 20 mL INTRAVENOUS 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 (Med.Supl.;Non-Drugs) PRN [...] March 18, 2020 TIME: 8:49 AM PAGER: [phone] Normal [facility] PROGRESSon 03-18-2020 PROGRESS HNO ID: [id number] Author: Panad Coulter Service: Hospital Medicine Author Type: Physician Type: Progress Notes Filed: 03/18/2020 7:00 PM Note Text: DEPARTMENT OF HOSPITAL MEDICINE PROGRESS NOTE SERVICE DATE: 03/18/2020 SERVICE TIME: 6:57 PM Hospital Medicine/Primary Attending: Panda Coulter MD NIGHT AND WEEKEND COVERAGE: BUCKEYE COVERAGE: From 7am - 7pm, please call [phone] After 7pm, please call cross cover pager #[phone] Subjective INTERVAL HPI: patient seen at bedside. [...] Inserted (PICC) Right Arm Through Introducer 5.0 [place] 6 days DATA: Diagnostic tests reviewed for [...] neuro, event record hookup was ordered in [facility] ? 3. ?Diabetes mellitus: POA, stable [...] TIME: 6:57 PM PAGER/CONTACT #: [phone] etx [phone] [facility] PROGRESS HNO ID: [id number] Author: Leland Herrera Service: Orthopaedic Surgery Author [...] MD Orthopedic Surgery, PGY1 03/18/20 1410 Normal [facility] CONSULT PROGon 03-17-2020 CONSULT PROG HNO ID: [id number] Author: Marissa Banks Service: Endocrinology Author Type: [...] pt on phone; pt not able to flower picker phone; per notes, no nausea, no [...] POSIFLUSH) 20 mL INTRAVENOUS 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 (Med.Supl.;Non-Drugs) PRN [...] March 17, 2020 TIME: 9:45 AM PAGER: [phone] Normal [facility] NURSING PROGon 03-17-2020 NURSING PROG HNO ID: [id number] Author: Quynh Jean-BaptisteRn) JONNY Manzanares Service: ? Author Type: Registered Nurse Type: Nursing Progress Note Filed: 03/17/2020 2:24 PM Note Text: Nursing Progress Note Patient Name: Lisa Shirley Patient Location: [id number] 1 Daily Note: 1115: Dr Coulter notified of removing restraints from patient. 1145: pt tolerating well without pulling at lines or trying to get out of bed. This note was completed by: Quynh Manzanares RN [facility] NURSING PROG HNO ID: [id number] Author: Aron Jean-BaptisteRn) Stephan RN Service: ? Author Type: Registered Nurse Type: Nursing Progress Note Filed: 03/17/2020 5:24 AM Note Text: Pt. Now only has soft wrist restraint on left wrist, patient is unable to pull at right upper arm PICC with right hand and demonstrated increased cooperation and ability to follow instruction. Normal [facility] NURSING PROG HNO ID: [id number] Author: Aron Jean-BaptisteRn) Stephan, RN Service: ? Author Type: Registered Nurse Type: Nursing Progress Note Filed: 03/17/2020 5:19 AM Note Text: Nursing Progress: Topic: RESTRAINT NON-VIOLENT PATIENT NAME: Lisa Shirley PATIENT LOCATION: [id number]/[facility]* The patient demonstrates Attempting to Remove Medical [...] TIME: 5:18 AM Aron Rothman RN Normal [facility] PROGRESSon 03-17-2020 PROGRESS HNO ID: [id number] Author: Panda Coulter Service: Hospital Medicine Author Type: Physician Type: Progress Notes Filed: 03/17/2020 8:16 PM Note Text: DEPARTMENT OF HOSPITAL MEDICINE PROGRESS NOTE SERVICE DATE: 03/17/2020 SERVICE TIME: 8:09 PM Hospital Medicine/Primary Attending: Panda Coulter MD NIGHT AND WEEKEND COVERAGE: BUCKEYE COVERAGE: From 7am - 7pm, please call [phone] After 7pm, please call cross cover pager #[phone] Subjective INTERVAL HPI: blood pressure a bit [...] Inserted (PICC) Right Arm Through Introducer 5.0 [place] 5 days Drain External Collection Device 03/12/20 [...] neuro, event record hookup was ordered in [facility] ? 3. ?Diabetes mellitus: POA, stable [...] TIME: 8:09 PM PAGER/CONTACT #: [phone] etx [phone] [facility] PROGRESS HNO ID: [id number] Author: Edmond (Res) MD Irvin Service: Orthopaedic Surgery Author Type: [...] images Tonie Bryan MD Orthopaedic Surgery Pager #[phone] March 17, 2020 [facility] ALLIED HEALTHon 03-16-2020 ALLIED HEALTH HNO ID: [id number] Author: Casandra (Rt) Jade Morris Service: Radiology Author Type: Crowning Inspector Type: Allied Health Filed: 03/16/2020 7:28 AM [...] Mee March 16, 2020 7:28 AM Normal [facility] CONSULT PROGon 03-16-2020 CONSULT PROG HNO ID: [id number] Author: Marissa Banks Service: Endocrinology Author Type: [...] POSIFLUSH) 20 mL INTRAVENOUS 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 (Med.Supl.;Non-Drugs) PRN [...] Last 24 hr BS reviewed. Recent Labs 03/15/20195803/15/20 1656 03/15/20 1131 03/15/20 0735 03/15/20 0647 [...] March 16, 2020 TIME: 8:31 AM PAGER: [phone] Normal [facility] NURSING PROGon 03-16-2020 NURSING PROG HNO ID: [id number] Author: Maddison Jean-BaptisteRn) JONNY Thorne Service: ? Author Type: Registered Nurse Type: Nursing Progress Note Filed: 03/16/2020 7:47 PM Note Text: Nursing Progress: Topic: RESTRAINT NON-VIOLENT PATIENT NAME: Lisa Shirley PATIENT LOCATION: [id number]/[facility]* The patient demonstrates Attempting to Remove Medical [...] TIME: 7:46 PM Maddison Thorne RN Normal [facility] NURSING PROG HNO ID: [id number] Author: Aron Jean-BaptisteRn) Stephan RN Service: ? Author Type: Registered Nurse Type: Nursing Progress Note Filed: 03/16/2020 1:36 AM Note Text: Nursing Progress: Topic: RESTRAINT NON-VIOLENT PATIENT NAME: Lisa Shirley PATIENT LOCATION: [id number]* The patient demonstrates Attempting to Remove Medical [...] TIME: 1:36 AM Aron Rothman RN Normal [facility] PROGRESSon 03-16-2020 PROGRESS HNO ID: [id number] Author: Panda Coulter Service: Hospital Medicine Author Type: Physician Type: Progress Notes Filed: 03/16/2020 9:28 PM Note Text: DEPARTMENT OF HOSPITAL MEDICINE PROGRESS NOTE SERVICE DATE: 03/16/2020 SERVICE TIME: 9:24 PM Hospital Medicine/Primary Attending: Panda Coulter MD NIGHT AND WEEKEND COVERAGE: BUCKEYE COVERAGE: From 7am - 7pm, please call [phone] After 7pm, please call cross cover pager #[phone] Subjective INTERVAL HPI: pending ortho surgery. Endocrine [...] Inserted (PICC) Right Arm Through Introducer 5.0 [place] 4 days Drain External Collection Device 03/12/20 [...] neuro, event record hookup was ordered in [facility] ? 3. ?Diabetes mellitus: POA, stable [...] 81 mg PO/FT DAILY 03/09/20 1436 -- 03/08/202229 heparin 5,000 Units injection (Medical Risk Categories) 5,000 Units SUBCUTANEOUS EVERY 8 HOURS 03/08/202219 -- VTE Prophylaxis: heparin dvt px Disposition: Extended Care Facility/acute rehab SIGNATURE: Panda Coulter MD PATIENT NAME: Lisa Shirley DATE: March 16, 2020 TIME: 9:24 PM PAGER/CONTACT #: [phone] etx [phone] [facility] PROGRESS HNO ID: [id number] Author: Leland Herrera Service: Orthopaedic Surgery Author [...] Rogers MD Resident, Orthopaedic Surgery Pager #: [phone] 03/16/2020 6:00 AM Please page [phone] from 5p-6a and on weekends for any issues. Normal [facility] PROGRESS HNO ID: [id number] Author: Panda Coulter Service: Hospital Medicine Author Type: Physician Type: Progress Notes Filed: 03/15/2020 11:35 PM Note Text: DEPARTMENT OF HOSPITAL MEDICINE PROGRESS NOTE SERVICE DATE: 03/15/2020 SERVICE TIME: 11:11 PM Hospital Medicine/Primary Attending: Panda Coulter MD NIGHT AND WEEKEND COVERAGE: BUCKEYE COVERAGE: From 7am - 7pm, please call [phone] After 7pm, please call cross cover pager #[phone] Subjective INTERVAL HPI: patient had been complaining [...] Inserted (PICC) Right Arm Through Introducer 5.0 [place] 3 days Drain External Collection Device 03/12/20 [...] neuro, event record hookup was ordered in [facility] ? 3. Diabetes mellitus: POA, stable [...] 81 mg PO/FT DAILY 03/09/20 1436 -- 03/08/202229 heparin 5,000 Units injection (Medical Risk Categories) 5,000 Units SUBCUTANEOUS EVERY 8 HOURS 03/08/200 -- VTE Prophylaxis: heparin dvt px Disposition: Extended Care Facility Plan of care discussed with: Provider, RN, Patient SIGNATURE: Panda Coulter MD PATIENT NAME: Lisa Shirley DATE: March 15, 2020 TIME: 11:11 PM PAGER/CONTACT #: [phone] etx [phone] Normal [facility] THERAPY NTon 03-16-2020 THERAPY NT HNO ID: [id number] Author: Jamila (Pt) Yared Service: Physical Therapy Author Type: Physical Therapist Type: Therapy (PT/OT/Speech/Resp) Filed: 03/16/2020 2:33 PM Note Text: Physical Therapy Treatment SERVICE DATE: 03/16/2020 SERVICE TIME: 1335 to 1400 ROOM: [place] [address] Recommended Discharge Disposition: Acute Rehab Justification For [...] Walk in Laundry: Minimally completes Equipment Owned: Fid[employer] Writer-Shower Prior Functional Level: (driving, activity limited by LBP) Prior Functional Level Comments: 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; 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 d/t 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 pain [...] Weakness (generalized);Difficulty walking-musculoskeletal Interventions Provided: Therapeutic Activity (87769);Therapeutic Exercise (13222) Therapeutic Exercise (53685) Treatment Minutes: 8 $ Therapeutic Exercise (57497) Billed Units: 1 unit Seated bilat LE exercise: hip flexion, LAQ, RLE AP Supine bilat lower extremity exercise: heel slide Therapeutic Activity (92829) Treatment Minutes: 17 $ Therapeutic Activity (19367) Billed Units: 1 unit Instruct in safety [...] March 16, 2020 TIME: 2:31 PM Normal [facility] XR SHLDR >/=3V AP/TIGRE AP/OTH R RTon [...] tissues are otherwise unremarkable. IMPRESSION: See above. Fiberglass Roller: TENISHA Transcribe Date/Time: Mar 16 2020 8:16A Dictated by : JON DENTON MD This examination was interpreted and the report reviewed and electronically signed by: JON DENTON MD on Mar 16 2020 8:17AM EST Normal [facility] CASE MANAGEMon 03-15-2020 CASE MANAGEM HNO ID: [id number] Author: Paulette Cruz (Sw) Service: ? Author Type: Glass Checker Type: Care Mgt Progress Note Filed: 03/15/2020 [...] 15, 2020 TIME: 9:00 AM PAGER/CONTACT #: [phone] Normal [facility] CK CREATINE KINASEon 020 CK [Catalytic activity/Vol] 187 U/L Normal 42-196 [facility] Comment on above: Order Comment: Speci men Type: BLOOD SPECIMEN Performed By: #### 2 4323-8, CK ####[facility] [id number] [place] [address] CONSULT PROGon 03-15-2020 CONSULT PROG HNO ID: [id number] Author: Marissa Banks Service: Endocrinology Author Type: [...] POSIFLUSH) 20 mL INTRAVENOUS 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 (Med.Supl.;Non-Drugs) PRN [...] BS reviewed. Recent Labs 03/14/20 2253 03/14/20 22003/14/20201203/14/20 1735 03/14/20 1110 03/12/20 1612 03/12/20 1612 [...] 2020 TIME: 8:15 AM PAGER: [phone] Normal [facility] Comp Metab 2000 Pnl SerPlon 03-15-2020 Albumin [Mass/Vol] 3.1 g/dL Low 3.9-4.9 [facility] Comment on above: Order Comment: Speci men Type: BLOOD SPECIMEN Performed By: #### 2 4323-8, CK ####[facility]IA [id number] [place] [address] ALP [Catalytic activity/Vol] 59 U/L Normal 34-123 [facility] Comment on above: Order Comment: Speci men Type: BLOOD SPECIMEN Performed By: #### 2 4323-8, CK ####[facility] [id number] [place] [address] ALT With P-5'-P [Catalytic activity/Vol] 23 U/L Normal 7-38 [facility] Comment on above: Order Comment: Speci men Type: BLOOD SPECIMEN Performed By: #### 2 4323-8, CK ####[facility] [id number] [place] [address] Anion gap [Moles/Vol] 11 mmol/L Normal 9-18 [facility] Comment on above: Order Comment: Speci men Type: BLOOD SPECIMEN Performed By: #### 2 4323-8, CK ####[facility] [id number] [place] [address] AST With P-5'-P [Catalytic activity/Vol] 23 U/L Normal 13-35 [facility] Comment on above: Order Comment: Speci men Type: BLOOD SPECIMEN Performed By: #### 2 4323-8, CK ####[facility] [id number] [place] [address] Bilirubin [Mass/Vol] 0.7 mg/dL Normal 0.2-1.3 [facility] Comment on above: Order Comment: Speci men Type: BLOOD SPECIMEN Performed By: #### 2 4323-8, CK ####[facility] [id number] [place] [address] Calcium [Mass/Vol] 8.0 mg/dL Low 8.5-10.2 [facility] Comment on above: Order Comment: Speci men Type: BLOOD SPECIMEN Performed By: #### 2 4323-8, CK ####[facility] [id number] [place] [address] Chloride [Moles/Vol] 108 mmol/L High 97-105 [facility] Comment on above: Order Comment: Speci men Type: BLOOD SPECIMEN Performed By: #### 2 4323-8, CK ####[facility]IA [id number] [place] [address] CO2 [Moles/Vol] 24 mmol/L Normal 22-30 [facility] Comment on above: Order Comment: Speci men Type: BLOOD SPECIMEN Performed By: #### 2 4323-8, CK ####[facility]ORY[facility]IA [id number] [place] [address] Creatinine [Mass/Vol] 1.02 mg/dL High 0.58-0.96 [facility] Comment on above: Order Comment: Speci men Type: BLOOD SPECIMEN Performed By: #### 2 4323-8, CK ####[facility]IA [id number] [place] [address] GFR/1.73 sq M.predicted MDRD (S/P/Bld) [Vol rate/Area] mL/min/{1.73_m2} Normal [facility] Comment on above: Order Comment: Speci [...] GFR. Performed By: #### 2 4323-8, CK ####[facility]ORYCLIA [id number] [place] [address] Glucose [Mass/Vol] 169 mg/dL High 74-99 [facility] Comment on above: Order Comment: Speci men Type: BLOOD SPECIMEN Result Comment: The [place] [employer] (ADA) provides guidance for cutoff [...] Standards of Medical Care in Diabetes 2016, [place] [employer]. Diabetes Care. 2016.39(Suppl 1). Performed By: #### 2 4323-8, CK ####[facility]IA [id number] [place] [address] Potassium [Moles/Vol] 3.8 mmol/L Normal 3.7-5.1 [facility] Comment on above: Order Comment: Speci men Type: BLOOD SPECIMEN Performed By: #### 2 4323-8, CK ####[facility]ORATORYCLIA [id number] [place] [address] Protein [Mass/Vol] 6.0 g/dL Low 6.3-8.0 [facility] Comment on above: Order Comment: Speci men Type: BLOOD SPECIMEN Performed By: #### 2 4323-8, CK ####[facility]ORATORYCLIA [id number] [place] [address] Sodium [Moles/Vol] 143 mmol/L Normal 136-144 [facility] Comment on above: Order Comment: Speci men Type: BLOOD SPECIMEN Performed By: #### 2 4323-8, CK ####[facility]ORATORYCLIA [id number] [place] [address] Urea nitrogen [Mass/Vol] 32 mg/dL High 7-21 [facility] Comment on above: Order Comment: Speci men Type: BLOOD SPECIMEN Performed By: #### 2 4323-8, CK ####[facility]ATORYCLIA [id number] [place] [address] HIGH SENSITIVITY TROPONIN To n 03-15-2020 HIGH SENSITIVITY MAXIMILIANO 15 ng/L High <12 [facility] Comment on above: Order Comment: Speci [...] MACE. Performed By: #### 2 4321-2 #### [facility] CLIA [id number] [address] [place] [address] NURSING PROGon 03-15-2020 NURSING PROG HNO ID: [id number] Author: Maddison Jean-BaptisteRn) JONNY Thorne Service: ? Author Type: Registered Nurse Type: Nursing Progress Note Filed: 03/16/2020 7:47 PM Note Text: Nursing Progress: Topic: RESTRAINT NON-VIOLENT PATIENT NAME: Lisa Shirley PATIENT LOCATION: [place] [address] [address]* The patient demonstrates Attempting to Remove Medical [...] 2020 TIME: 7:47 PM Maddison Thorne RN [facility] PROGRESSon 03-15-2020 PROGRESS HNO ID: [id number] Author: Patito Weston Service: Orthopaedic Surgery Author [...] MD Orthopedic Surgery Resident 03/15/2020 5:34 AM [facility] CASE MANAGEMon 03-14-2020 CASE MANAGEM HNO ID: [id number] Author: Paulette Cruz (Sw) Service: ? Author Type: Glass Checker Type: Care Mgt Progress Note Filed: 03/15/2020 [...] 14, 2020 TIME: 4:14 PM PAGER/CONTACT #: [phone] [facility] CONSULTon 03-14-2020 CONSULT HNO ID: [id number] Author: Marissa Banks Service: Endocrinology Author Type: Physician Type: Consults Filed: 03/14/2020 3:31 PM Note Text: I have reviewed the patient's medical record in detail. Consult note dictated. See new insulin orders. Marissa Banks MD Normal [facility] CONSULT HNO ID: [id number] Author: Marissa Banks Service: Endocrinology Author Type: Physician Type: Consults Filed: 03/15/2020 6:37 PM Note Text: [facility] - Consultation PATIENT NAME: LISA SHIRLEY CSN: [id number] DATE OF : 1945 SEX/AGE: F/74 PATIENT TYPE: I HOSP SVC: [facility] LOCATION: [id number] DATE OF SERVICE: 03/14/2020 TIME OF SERVICE: 03:23 PM REFERRING PHYSICIAN: ASHLEIGH THURSTON REASON FOR CONSULTATION: Diabetes management, COVID, patient on steroids. HISTORY: The patient is a 74-year-old female, who was admitted who was found unresponsive at home. She was transferred from [facility] with acute right MCA stroke. Patient was [...] low 100s. Marissa Banks MD Endocrinology SM:modl /[id number] Normal [facility] CONSULT PROGon 03-14-2020 CONSULT PROG HNO ID: [id number] Author: Danuta Pulido (Pa) Service: Neurology ICU Author Type: Physician Load Blocker Type: Consult Progress Note Filed: 03/14/2020 10:30 [...] POSIFLUSH) 20 mL INTRAVENOUS 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 (Med.Supl.;Non-Drugs) PRN [...] -- 03/09/20 0600 activity - mobilize patient (hi,ms) 03/08/20 2215 pneumatic compression stockings (hi,ms) VTE Prophylaxis: VTE prophylaxis appropriate Impression/Recommendations IMPRESSION [...] 14, 2020 TIME: 10:13 AM PAGER/CONTACT #: [phone] Part of my note may have been copied from previous documentation. It has been reviewed and is accurate. Normal [facility] NURSING PROGon 03-14-2020 NURSING PROG HNO ID: [id number] Author: Pham Jean-BaptisteRn) JONNY Escalera Service: ? Author Type: Registered Nurse Type: Nursing Progress Note Filed: 03/14/2020 10:45 PM Note Text: Nursing Progress: Topic: RESTRAINT NON-VIOLENT PATIENT NAME: Lisa Shirley PATIENT LOCATION: [id number]/[facility]* The patient demonstrates Attempting to Remove Medical [...] 2020 TIME: 10:44 PM Pham Escalera RN [facility] NURSING PROG HNO ID: [id number] Author: Elda Jean-BaptisteRn) JONNY Isaac Service: Nursing Author Type: Registered Nurse Type: Nursing Progress Note Filed: 03/14/2020 2:39 PM Note Text: Nursing Progress: Topic: RESTRAINT NON-VIOLENT PATIENT NAME: Lisa Shirley PATIENT LOCATION: [id number]/[facility]* The patient demonstrates Attempting to Remove Medical [...] 2020 TIME: 2:38 PM Elda Isaac RN [facility] NURSING PROG HNO ID: [id number] Author: Pham Tovar) JONNY Escalera Service: ? Author Type: Registered Nurse Type: Nursing Progress Note Filed: 03/13/2020 11:01 PM Note Text: Nursing Progress: Topic: RESTRAINT NON-VIOLENT PATIENT NAME: Lisa Shirley PATIENT LOCATION: [place] [address]/[place] [address]* The patient demonstrates Attempting to Remove Medical [...] 2020 TIME: 10:59 PM Pham Escalera RN [facility] NUTRITIONon 03-14-2020 NUTRITION HNO ID: [id number] Author: Pete Ferrari Service: Nutrition Therapy Author [...] Malnutrition Identified (03/09/20 1118 : Ann (Rd) Friend, RD) Estimated kilocalorie needs: 1480 - 1780 Calorie Calculation Method: 25-30 kcals/kg Estimated protein needs (grams): 71 - 90 Grams protein determined by: 1.2-1.5 g/kg;[place] Body Weight Care Plan: Continue current diet diet per recs Supplements: Boost Glucose Control(BID; thicken to nectar thick consistency) Medications: Appetite stimulants Monitor and Evaluation: Meet greater than 75% of estimated needs;Monitor labs, I/Os, vital signs, weight;Monitor fluid/electrolyte balance;Monitor bowel function Discharge Recommendations: Diet;Oral Supplements Diet: per recs Oral Supplements: Boost Glucose control 1-3 [...] DATE: March 14, 2020 TIME: 1324 PAGER: [phone] [facility] PROGRESSon 03-14-2020 PROGRESS HNO ID: [id number] Author: Panda Coulter Service: Hospital Medicine Author Type: Physician Type: Progress Notes Filed: 03/14/2020 11:52 PM Note Text: DEPARTMENT OF HOSPITAL MEDICINE PROGRESS NOTE SERVICE DATE: 03/14/2020 SERVICE TIME: 1:27 PM Hospital Medicine/Primary Attending: Panda Coulter MD NIGHT AND WEEKEND COVERAGE: [place] COVERAGE: From 7am - 7pm, please call [phone] After 7pm, please call cross cover pager #[phone] Subjective INTERVAL HPI: patient seen at bedside. [...] Inserted (PICC) Right Arm Through Introducer 5.0 [place] 1 day Drain External Collection Device 03/12/20 [...] event record hookup was ordered in epic 3. Diabetes mellitus: POA, stable Monitor accuchecks [...] TIME: 1:27 PM PAGER/CONTACT #: [phone] [phone] [facility] PROGRESS HNO ID: [id number] Author: Leland Herrera Service: Orthopaedic Surgery Author [...] DATE: 03/14/20 TIME: 5:58 AM PAGER/CONTACT #: [phone] Normal [facility] THERAPY NTon 03-14-2020 THERAPY NT HNO ID: [id number] Author: Osmar (Ccc-Paddle Dyeing Machine Operator) Elli CCC/HIGHWAY ADMINISTRATIVE ENGINEER Service: Speech/Swallow Author Type: Speech Language Pathologist Type: Therapy (PT/OT/Speech/Resp) Filed: 03/14/2020 3:44 PM Note Text: Speech Therapy Treatment SERVICE DATE: 03/14/2020 SERVICE TIME: 8050 to 4919 ROOM: [place] [address] IMPRESSION: Patient demonstrates oropharyngeal dysphagia which is negatively impacting his/her ability to effectively maintain adequate nutrition and hydration and/or airway safety. Patient demonstrates cognitive-communication deficits which is negatively impacting the patient's ability to effectively communicate basic ADL medical and social wants/needs with familiar and unfamiliar communication partners. Diet Recommendations: Dysphagia Level 1 (Pureed) Mildly Thick Liquids IDDSI Level 2 (Gerlach Thick) Medications crushed in puree (pudding/applesauce) ? [...] (Pureed), Mildly Thick Liquids IDDSI Level 2 ([place] Thick) Swallow Consistencies Presented: Mildly Thick Liquids IDDSI Level 2 ([place] Thick), Puree Response to Consistencies Presented: No [...] tolerate Mildly Thick Liquids IDDSI Level 2 ([place] Thick) consistency while utilizing compensatory/swallowing strategies given [...] following cerebral infarction Interventions Provided: Dysphagia Therapy (73703);Speech Therapy (25911) $ Dysphagia Therapy (49275) Billed Units: 1 unit $ Speech Therapy (80918) Billed Units: 1 unit Training and education provided in: Swallowing Strategies, Dysphagia Management, Motor Speech Skills(Left sided awareness) The following therapeutic skills were used:: Tactile cuing, Repetitive task learning, Verbal cuing, Interpretation and instruction of instrumental assessment Total Treatment Time (minutes): 25 Home Environment Prior Functional Level: Within Functional Limits Patient Lives With: Self/Alone Assistance Available: typecasting machine operator Prior Swallowing Function/Diet Textures: Regular Consistency;Thin Liquids IDDSI Level 0 Please see discipline specific clinical documentation flowsheet for complete details for this therapy evaluation/treatment. SIGNATURE: Osmar Calloway [facility]-HIGHWAY ADMINISTRATIVE ENGINEER PATIENT NAME: Lisa Shirley DATE: March 14, 2020 TIME: 3:34 PM Normal [facility] THERAPY NT HNO ID: [id number] Author: Silvia Teran/Darion López Service: Occupational Therapy Author Type: Occupational Therapist Type: Therapy (PT/OT/Speech/Resp) Filed: 03/14/2020 2:15 PM Note Text: Occupational Therapy Treatment SERVICE DATE: 03/14/2020 SERVICE TIME: 1307 to 1331 ROOM: [place] [address] Recommended Discharge Disposition: Acute Rehab Recommended Discharge [...] Walk in Laundry: Minimally completes Equipment Owned: Fidus Writer-Shower Prior Functional Level: (driving, activity limited by LBP) Prior Functional Level Comments: 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 Minimal assist to flower picker spoon/cup and stabilize plate/bowl to self [...] (ADL);Muscle Weakness (generalized) Interventions Provided: Therapeutic Exercise (46652);Self Mcfp Management (34311) Therapeutic Exercise (36171) Treatment Minutes: 10 $ Therapeutic Exercise (59069) Billed Units: 1 unit Provided BUE AROM [...] encouragement to continue to follow through. Self Mcfp Management (05893) Treatment Minutes: 14 $ Self Mcfp Management (79252) Billed Units: 1 unit Provided activities of [...] DATE: March 14, 2020 TIME: 2:09 PM Normal [facility] HEALTHon 03-13-2020 ALLIED HEALTH HNO ID: [id number] Author: Bobbi Jean-BaptisteRtJade Wright Service: Radiology Author Type: Crowning Inspector Type: Allied Health Filed: 03/13/2020 11:51 AM [...] RT Rolf March 13, 2020 11:50 AM [facility] ALLIED [facility] HNO ID: [id number] Author: Chalino Jean-BaptisteRtJade Caceres Service: Radiology Author Type: Crowning Inspector Type: Allied Health Filed: 03/13/2020 10:45 AM [...] March 13, 2020 TIME: 10:45 AM Normal [facility] CASE MANAGEMon 03-13-2020 CASE MANAGEM HNO ID: [id number] Author: Paulette Cruz (Sw) Service: ? Author Type: Glass Checker Type: Care Mgt Progress Note Filed: 03/13/2020 3:55 PM Note Text: CARE MANAGEMENT PROGRESS NOTE SERVICE DATE: 03/13/2020 SERVICE TIME: 3:51 PM LOS: 5 days Needs Prior to Discharge: To Be Determined Called pt's room and spoke with RN who reports pt is in soft restraints. RN assisted pt with phone. [facility] unable to accepted due to no beds. Attempted to discuss HHC and pt responded her insurance requires her to have therapy at a free-standing office and she does not want any therapy from [facility]. Reviewed options for HHC and pt hesitant but agreeable for J[facility] to send referrals. Referrals sent to [facility], [facility], [facility], and [facility]. SIGNATURE: [facility] Alvarez PATIENT NAME: Lisa Shirley DATE: March 13, 2020 TIME: 3:51 PM PAGER/CONTACT #: [phone] Normal [facility] CONSULT PROGon 03-13-2020 CONSULT PROG HNO ID: [id number] Author: Danuta Pulido (Pa) Service: Neurology ICU Author Type: Physician Load Blocker Type: Consult Progress Note Filed: 03/13/2020 6:09 [...] March 13, 2020 6:09 PM 1763 Normal [facility] CTA HEAD W IVCONon 0 CTA HEAD W IVCON Final Report DATE OF EXAM: Mar 13 2020 10:43AM [facility] 0022 - CTA HEAD W IVCON [...] Applicable Spot Sign Number: Not Applicable NECK: Communications Consultant (topogram) images: No additional findings. Soft tissues: [...] are patent. The basilar artery is patent. molecular biologist are patent. SCAs are patent. Focal moderate [...] to moderate stenosis at described. No aneurysm. Fiberglass Roller: TENISHA Transcribe Date/Time: Mar 13 2020 11:24A Dictated by : SARAH LAWSON MD This examination was interpreted and the report reviewed and electronically signed by: SARAH LAWSON MD on Mar 13 2020 11:53AM EST Normal [facility] CTA NECK W IVCONon 0 CTA NECK W IVCON Final Report DATE OF EXAM: Mar 13 2020 10:43AM [facility] 0024 - CTA NECK W IVCON [...] Applicable Spot Sign Number: Not Applicable NECK: Communications Consultant (topogram) images: No additional findings. Soft tissues: [...] are patent. The basilar artery is patent. molecular biologist are patent. SCAs are patent. Focal moderate [...] to moderate stenosis at described. No aneurysm. Fiberglass Roller: TENISHA Transcribe Date/Time: Mar 13 2020 11:24A Dictated by : SARAH LAWSON MD This examination was interpreted and the report reviewed and electronically signed by: SARAH LAWSON MD on Mar 13 2020 11:53AM EST Normal [facility] PROGRESSon 03-13-2020 PROGRESS HNO ID: [id number] Author: Maite Regalado Service: Hospital Medicine Author Type: Physician Type: Progress Notes Filed: 03/13/2020 9:30 PM Note Text: DEPARTMENT OF HOSPITAL MEDICINE [facility] PROGRESS NOTE- HOSPITAL DAY 5 SERVICE [...] in DKA, No LVO, patient admitted to [facility] NICU. Patient also had left trimal [...] and IBS who presents as transfer from [place] with findings of acute R MCA stroke. [...] but no prior deficits. In ED at [place], stroke eval performed with CT findings of R caudate, insula and frontal evolving infarcts. ASPECTS score 5. CTA nondiagnostic as contrast infiltrated in arm and IV access lost during scan. Central line placed at [place] for access. Patient out of window for [...] by XR. Patient subsequently transferred here to [facility] NSICU for further stroke workup and [...] Yes ?Assessment AND?Plan: Mild, no ACS or PR suspected ?Closed left ankle fracture POA: Yes [...] nursing staff and/or other providers, documentation, order tracer, and [id number] time with patient.? ? Diagnostic tests reviewed [...] POSIFLUSH) 20 mL INTRAVENOUS 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 (Med.Supl.;Non-Drugs) PRN [...] AND WEEKEND COVERAGE: After 7pm please page [phone] [facility] PROGRESS HNO ID: [id number] Author: Leland Herrera Service: Orthopaedic Surgery Author [...] Rogers MD Resident, Orthopaedic Surgery Pager #: [phone] 03/13/2020 7:01 AM Please page [phone] from 5p-6a and on weekends for any issues. 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; 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 d/t 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 pain [...] Weakness (generalized);Difficulty walking-musculoskeletal Interventions Provided: Therapeutic Exercise (72814) Therapeutic Exercise (31056) Treatment Minutes: 12 $ Therapeutic Exercise (46056) Billed Units: 1 unit Encouraged up to [...] March 13, 2020 TIME: 3:52 PM Normal [facility] THERAPY NT HNO ID: [id number] Author: Osmar (Ccc-Paddle Dyeing Machine Operator) ALEYDA Calloway/HIGHWAY ADMINISTRATIVE ENGINEER Service: Speech/Swallow Author Type: Speech Language Pathologist Type: Therapy (PT/OT/Speech/Resp) Filed: 03/13/2020 12:14 PM Note Text: Speech Therapy MBSS Evaluation SERVICE DATE: 03/13/2020 SERVICE TIME: 1050 to 1120 ROOM: [place] [address] IMPRESSION: Patient demonstrates oropharyngeal dysphagia which is negatively impacting his/her ability to effectively maintain adequate nutrition and hydration and/or airway safety. Diet Recommendations: Dysphagia Level 1 (Pureed) Mildly Thick Liquids IDDSI Level 2 ([place] Thick) Medications crushed in puree (pudding/applesauce) Swallowing [...] tolerance;Motivated Current Hospital Course: COVID-19+ transfer from [facility] to [facility]. CT chest There is a Corpak tube [...] Thin Barium Liquids, Mildly Thick Barium Liquids (Gerl[place] Thick), Puree With Barium Paste, Soft Solid [...] 0, Mildly Thick Liquids IDDSI Level 2 ([place] Thick), Puree, Soft Solid Aspiration: During the swallow Aspiration With: Thin Liquids IDDSI Level 0, Mildly Thick Liquids IDDSI Level 2 ([place] Thick) Penetration/Aspiration Scale: 7-Material enters the airway, [...] infarction Interventions Provided: Modified Barium Swallow Study (20328) $ Modified Barium Swallow Study (35168) Billed Units: 1 unit Total Treatment Time (minutes): 30 Home Environment Prior Functional Level: Within Functional Limits Patient Lives With: Self/Alone Assistance Available: typecasting machine operator Prior Swallowing Function/Diet Textures: Regular Consistency;Thin Liquids IDDSI Level 0 Please see discipline specific clinical documentation flowsheet for complete details for this therapy evaluation/treatment. SIGNATURE: Osmar Calloway CCC-HIGHWAY ADMINISTRATIVE ENGINEER PATIENT NAME: Lisa Shirley DATE: March 13, 2020 TIME: 12:09 PM [facility] XR MOD BARIUM SWALLOW W SHERWIN Flores [...] min:sec IMPRESSION: Abnormal modified barium swallow study. Fiberglass Roller: TENISHA Transcribe Date/Time: Mar 13 2020 4:13P Dictated by : SARAH LAWSON MD This examination was interpreted and the report reviewed and electronically signed by: SARAH LAWSON MD on Mar 13 2020 4:13PM EST [facility] ALLIED HEALTH 03-12-2020 ALLIED HEALTH HNO ID: [id number] Author: Jade Farmer (Rt) Service: ? Author Type: Crowning Inspector Type: Allied Health Filed: 03/12/2020 3:39 PM [...] RT Marleny March 12, 2020 3:38 PM [facility] CASE MANAGEMon 03-12-2020 CASE MANAGEM HNO ID: [id number] Author: Paulette Cruz (Sw) Service: ? Author Type: Glass Checker Type: Care Mgt Progress Note Filed: 03/12/2020 [...] 12, 2020 TIME: 1:46 PM PAGER/CONTACT #: [phone] [facility] CASE MGT INIT Deborah 2019 CASE MGT INIT [place] HNO ID: [id number] Author: Paulette Cruz (Sw) Service: ? Author Type: Glass Checker Type: Care Mgt Initial Assessment Filed: 03/12/2020 4:27 PM Note Text: CARE MANAGEMENT: ASSESSMENT AND DISCHARGE PLAN SERVICE DATE: March 12, 2020 SERVICE TIME: 3:59 PM PRIMARY CARE PHYSICIAN: Jaqueline Aragon DO ADMISSION STATUS: Inpatient Needs Prior to Discharge: To Be Determined MEDICAL: MEDICARE A AND B Patient/Publishing Specialist Stated Goals: To improve my functional status Health Insurance: Medicare;[place] [facility] Issues Impacting Discharge Plan: Newly diagnosed Newly Diagnosed: MCA Stroke Last Discharge Date: 03/08/20 Is this Within the Past 30 days? Last discharge within 30 days: No Advance Directive: Current Advance Directive: Health Care Power of Special Shopper;Living Will In Chart: Yes Up To Date [...] Walker;Cane Has the Patient Been in a Halfway Facility in the Past 30 days?: No SOCIAL: Living Arrangements: Home Lives With: Alone Financial Resources: Retired Primary Contact: Extended Emergency Contact Information Primary Emergency Contact: Osmany Arreguin Relation: Son Supportive Patient Contact:: Yes Contact Resources: Family Family Name/Phone: Son Osmany Arreguin Social Needs Food insecurity Worry: Sometimes [...] Completely I feel financially burdened by my tkg-cd-ztsold expenses for my prescription medication:: 0 - [...] Health Information: Depression FREEDOM OF CHOICE EXPLAINED: [place] of Choice Given: Yes Level of Care Discussed: Inpatient Rehab Facility Financial Disclosure Provided: Yes Provider List: Rehab Facility Provider list within the patient's requested geographic area shared with the patient/family: Yes within: 25 miles of zip code: [address] Quality and resource use metrics shared with [...] Depression Called pt on the phone. 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 [...] Pt unsure if she is agreeable to [facility] and has had [facility] in the past for stroke recovery. Reviewed options and referral sent to [facility]. Pt may change her mind and need choices for HHC. SIGNATURE: [facility] PATIENT NAME: Lisa Shirley DATE: March 12, 2020 TIME: 3:59 PM PAGER/CONTACT #: [phone] Normal [facility] CONSULTon 03-12-2020 CONSULT HNO ID: [id number] Author: Severo Barragan MD Service: Neurology Stroke [...] and IBS who presents as transfer from [place] with findings of acute R MCA stroke. [...] but no prior deficits. In ED at [place], stroke eval performed with CT findings of R caudate, insula and frontal evolving infarcts. ASPECTS score 5. CTA nondiagnostic as contrast infiltrated in arm and IV access lost during scan. Central line placed at [place] for access. Patient out of window for [...] by XR. Patient subsequently transferred here to [facility] NSICU for further stroke workup and [...] Large Infarct on CT or MR Imaging [place] Coma Scale Totals (Calculated): 15 STROKE 9 [...] TIME: 12:13 PM PAGER/CONTACT #: [phone] Normal [facility] Comp Metab 2000 Pnl SerPlon 03-12-2020 Albumin [Mass/Vol] 3.0 g/dL Low 3.9-4.9 [facility] Comment on above: Order Comment: Speci men Type: BLOOD SPECIMEN Performed By: #### 2 532-0, 51925-2 ####[facility]ATORYCLIA [id number] [place] [address] ALP [Catalytic activity/Vol] 52 U/L Normal 34-123 [facility] Comment on above: Order Comment: Speci men Type: BLOOD SPECIMEN Performed By: #### 2 532-0, 48040-3 ####[facility] [id number] [place] [address] ALT With P-5'-P [Catalytic activity/Vol] 14 U/L Normal 7-38 [facility] Comment on above: Order Comment: Speci men Type: BLOOD SPECIMEN Performed By: #### 2 532-0, 88619-2 ####[facility]ORYCLIA [id number] [place] [address] Anion gap [Moles/Vol] 10 mmol/L Normal 9-18 [facility] Comment on above: Order Comment: Speci men Type: BLOOD SPECIMEN Performed By: #### 2 532-0, 68598-2 ####[facility] [id number] [place] [address] AST With P-5'-P [Catalytic activity/Vol] 12 U/L Low 13-35 [facility] Comment on above: Order Comment: Speci men Type: BLOOD SPECIMEN Performed By: #### 2 532-0, ####[facility]IA [id number] [place] [address] Bilirubin [Mass/Vol] 0.3 mg/dL Normal 0.2-1.3 [facility] Comment on above: Order Comment: Speci men Type: BLOOD SPECIMEN Performed By: #### 2 532-0, ####[facility]ORY[facility]IA [id number] [place] [address] Calcium [Mass/Vol] 7.9 mg/dL Low 8.5-10.2 [facility] Comment on above: Order Comment: Speci men Type: BLOOD SPECIMEN Performed By: #### 2 532-0, 75040-2 ####[facility]ORY[facility]IA [id number] [place] [address] Chloride [Moles/Vol] 107 mmol/L High 97-105 [facility] Comment on above: Order Comment: Speci men Type: BLOOD SPECIMEN Performed By: #### 2 532-0, 92309-2 ####[facility] [id number] [place] [address] CO2 [Moles/Vol] 25 mmol/L Normal 22-30 [facility] Comment on above: Order Comment: Speci men Type: BLOOD SPECIMEN Performed By: #### 2 532-0, 20499-2 ####[facility]ORYCLIA [id number] [place] [address] Creatinine [Mass/Vol] 0.99 mg/dL High 0.58-0.96 [facility] Comment on above: Order Comment: Speci men Type: BLOOD SPECIMEN Performed By: #### 2 532-0, 23205-0 ####[facility]ATORYCLIA [id number] [place] [address] GFR/1.73 sq M.predicted MDRD (S/P/Bld) [Vol rate/Area] mL/min/{1.73_m2} Normal [facility] Comment on above: Order Comment: Speci [...] actual GFR. Performed By: #### 2 532-0, 47408-4 ####[facility]ATORYCLIA [id number] [place] [address] Glucose [Mass/Vol] 279 mg/dL High 74-99 [facility] Comment on above: Order Comment: Speci men Type: BLOOD SPECIMEN Result Comment: The [place] [employer] (ADA) provides guidance for cutoff [...] Standards of Medical Care in Diabetes 2016, [place] [employer]. Diabetes Care. 2016.39(Suppl 1). Performed By: #### 2 532-0, 25184-7 ####[facility]ORYCLIA [id number] [place] [address] Potassium [Moles/Vol] 3.8 mmol/L Normal 3.7-5.1 [facility] Comment on above: Order Comment: Speci men Type: BLOOD SPECIMEN Performed By: #### 2 532-0, 20611-9 ####[facility]ORYCLIA [id number] [place] [address] Protein [Mass/Vol] 5.3 g/dL Low 6.3-8.0 [facility] Comment on above: Order Comment: Speci men Type: BLOOD SPECIMEN Performed By: #### 2 532-0, 01579-9 ####[facility]ORYCLIA [id number] [place] [address] Sodium [Moles/Vol] 142 mmol/L Normal 136-144 [facility] Comment on above: Order Comment: Speci men Type: BLOOD SPECIMEN Performed By: #### 2 532-0, 18099-0 ####[facility]ORYCLIA [id number] [place] [address] Urea nitrogen [Mass/Vol] 32 mg/dL High 7-21 [facility] Comment on above: Order Comment: Speci men Type: BLOOD SPECIMEN Performed By: #### 2 532-0, 14223-3 ####[facility]ORYCLIA [id number] [place] [address] D dimer FEU PPP-mCncon 03-12 D DIMER AGE-RELATED CUTOFF 720 ng/mL FEU Normal [facility] Comment on above: Order Comment: Speci men Type: BLOOD SPECIMEN Performed By: #### 3 4528-0, 80672-0 ####[facility]CLIA [id number] [place] [address] Fibrin D-dimer FEU (PPP) [Mass/Vol] 2680 ng/mL FEU High <500 [facility] Comment on above: Order Comment: Speci men Type: BLOOD SPECIMEN Performed By: #### 3 4528-0, 00247-9 ####[facility]ORYCLIA [id number] [place] [address] LDH SerPl-cCncon 03-12-2020 LDH [Catalytic activity/Vol] 274 U/L High 135-214 [facility] Comment on above: Order Comment: Speci men Type: BLOOD SPECIMEN Performed By: #### 2 532-0, 10154-2 ####[facility]ORYCLIA [id number] [place] [address] NURSING PROGon 03-12-2020 NURSING PROG HNO ID: [id number] Author: Carmina Jean-BaptisteRn) JONNY Muñiz Service: Nursing Author Type: Registered Nurse Type: Nursing Progress Note Filed: 03/12/2020 7:29 PM Note Text: Nursing Progress Note Patient Name: Lisa Shirley Patient Location: [id number] 1 Daily Note: Paged sound orange at 1357 to obtain IV fluid order and switching some PO meds to IV since we now have a double lumen PICC. This note was completed by: Carmina Muñiz RN [facility] NURSING PROG HNO ID: [id number] Author: Carmina Jean-BaptisteRn) Mary Kay, JONNY Service: Nursing Author Type: Registered Nurse Type: Nursing Progress Note Filed: 03/12/2020 3:34 PM Note Text: Nursing Progress: Topic: RESTRAINT NON-VIOLENT PATIENT NAME: Lisa Shirley PATIENT LOCATION: [id number]/[facility]* The patient demonstrates Attempting to Remove Medical [...] 2020 TIME: 3:33 PM Carmina Muñiz RN [facility] PROCEDUREon 03-12-2020 PROCEDURE HNO ID: [id number] Author: Silvia (Rn) JONNY Rothman Service: PICC Team Author Type: Registered Nurse Type: Procedures Filed: 03/12/2020 3:51 PM Note Text: PICC NURSE INSERTION NOTE DATE OF PROCEDURE: March 12, 2020 TIME OF PROCEDURE: 1400 ORDERING PHYSICIAN: Sabine INFORMED CONSENT: Obtained per hospital policy. INDICATION FOR LINE PLACEMENT: IV access CONDITION OF LINE PLACEMENT: Sterile PRIMARY PROCEDURALIST: Frances Cook RN SENIOR IT SECURITY ANALYST: Genie Drummond RN PRE-PROCEDURE REVIEW ALLERGIES Allergen [...] Drummond RN CATHETER PLACEMENT Brand: Bard Lot: [id number] Number of Lumens: 2 Type of PICC: Power Injectable PICC Lumen Size: 5 [place] PLACEMENT TECHNIQUE Lidocaine: Yes, Lidocaine 1% Volume [...] None Patient Education Materials: Placed in chart [facility] Central Line Insertion Checklist utilized during this procedure QUESTIONS or PROBLEMS: Call [phone] SIGNATURE: Genie Drummond RN PATIENT NAME: Lisa Shirley DATE: March 12, 2020 TIME: 2:18 PM PAGER/CONTACT PHONE: [facility] PROGRESSon 03-12-2020 PROGRESS HNO ID: [id number] Author: Maite Regalado Service: Hospital Medicine Author Type: Physician Type: Progress Notes Filed: 03/12/2020 7:59 PM Note Text: DEPARTMENT OF HOSPITAL MEDICINE [facility] PHYSICIANS PROGRESS NOTE- HOSPITAL DAY 4 SERVICE [...] Assessment AND Plan: Mild, no ACS or PR suspected ? ? Closed left ankle fracture [...] nursing staff and/or other providers, documentation, order tracer, and orgt-hu-onyp time with patient.? ? Diagnostic tests reviewed [...] POSIFLUSH) 20 mL INTRAVENOUS 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 (Med.Supl.;Non-Drugs) PRN [...] AND WEEKEND COVERAGE: After 7pm please page [phone] Normal [facility] PROGRESS HNO ID: [id number] Author: Silvia (Jonny) JONNY Rothman Service: PICC Team Author Type: Registered Nurse Type: Progress Notes Filed: 03/12/2020 9:09 AM Note Text: PICC/VASCULAR ACCESS PROGRESS NOTE SERVICE DATE: 03/12/2020 SERVICE TIME: 904 PICC Consult: Talked with Dr Frye about GFR of 43, clearance given to place PICC. SIGNATURE: Silvia Rothman RN PATIENT NAME: Lisa Shirley DATE: March 12, 2020 TIME: 9:08 AM PAGER/CONTACT #: [phone] [facility] PROGRESS HNO ID: [id number] Author: Leland Herrera Service: Orthopaedic Surgery Author [...] Rogers MD Resident, Orthopaedic Surgery Pager #: [phone] 03/12/2020 5:54 AM Please page [phone] from 5p-6a and on weekends for any issues. Normal [facility] PT EDon 03-12-2020 PT ED HNO ID: [id number] Author: Genie (Rn) JONNY Drummond Service: PICC [...] Care SUPPLEMENTAL MATERIAL: PICC Line brochure and [facility] catheter-Associated Bloodstream Infection fact sheet Normal [facility] PT Pnl PPPon 03-12-2020 INR Coag (PPP) [Relative time] 1.1 {INR} Normal 0.9-1.3 [facility] Comment on above: Order Comment: Speci men Type: BLOOD SPECIMEN Result Comment: Francia min K Antagonist (VKA) Therapeutic Range: INR 2 to 3 (Target INR of 2.5) Note: For patients treated with VKA drugs, such as warfarin, the [place] [employer] 2012 Guideline recommends [...] CORREA, et al. Chest 2012, 141:7S-47S Caro CORBIN et al. [facility] 2017, 70: 252-289 Performed By: #### 3 4528-0, 27781-6 ####[facility]ORATORYCLIA [id number] [place] [address] PT Coag (PPP) [Time] 11.4 s Normal 9.7-13.0 [facility] Comment on above: Order Comment: Speci men Type: BLOOD SPECIMEN Performed By: #### 3 4528-0, 15372-3 ####[facility]ATORYCLIA [id number] [place] [address] THERAPY NTon 03-12-2020 THERAPY NT HNO ID: [id number] Author: Osmar (Ccc-Paddle Dyeing Machine Operator) ALEYDA Calloway/HIGHWAY ADMINISTRATIVE ENGINEER Service: Speech/Swallow Author Type: Speech Language Pathologist Type: Therapy (PT/OT/Speech/Resp) Filed: 03/12/2020 4:30 PM Note Text: Speech Therapy Treatment SERVICE DATE: 03/12/2020 SERVICE TIME: 1500 to 1530 ROOM: [place] [address] IMPRESSION: Patient demonstrates?oropharyngeal? dysphagia which is negatively [...] tolerance;Motivated Current Hospital Course: COVID-19+ transfer from [facility] to [address]100. CT chest There is a [...] Tested: Mildly Thick Liquids IDDSI Level 2 ([place] Thick), Puree Patient with improved alertness today [...] following cerebral infarction Interventions Provided: Dysphagia Therapy (08681);Speech Therapy (13230) $ Dysphagia Therapy (55058) Billed Units: 1 unit $ Speech Therapy (58713) Billed Units: 1 unit Training and education provided in: Swallowing Strategies, Dysphagia Management, Dietary Consistencies, Motor Speech Skills(Left sided awareness) The following therapeutic skills were used:: Verbal cuing, Tactile cuing, Repetitive task learning, Instruction in self-monitoring / self-assessment Total Treatment Time (minutes): 30 Home Environment Prior Functional Level: Within Functional Limits Patient Lives With: Self/Alone Assistance Available: typecasting machine operator Prior Swallowing Function/Diet Textures: Regular Consistency;Thin Liquids IDDSI Level 0 Please see discipline specific clinical documentation flowsheet for complete details for this therapy evaluation/treatment. SIGNATURE: Osmar Calloway CCC-HIGHWAY ADMINISTRATIVE ENGINEER PATIENT NAME: Lisa Shirley DATE: March 12, 2020 TIME: 4:25 PM Normal [facility] XR CHEST 1V FRONTALon 2019 XR CHEST [...] patient's mouth or throat. Please correlate clinically. Fiberglass Roller: PSCTameka Transcribe Date/Time: Mar 12 2020 3:39P Dictated by : J LUIS GAYLE MD This examination was interpreted and the report reviewed and electronically signed by: J LUIS GAYLE MD on Mar 12 2020 3:42PM EST Normal [facility] CBC W Auto Diff [place] 2019 Basophils (Bld) [#/Vol] 10*3/uL Normal <0.11 [facility] Comment on above: Order Comment: Speci men Type: BLOOD SPECIMEN Performed By: #### 5 8410-2 #### [facility] CLIA [id number] [address] [place] [address] [place] Basophils/100 WBC (Bld) 0.1 % Normal [facility] Comment on above: Order Comment: Speci men Type: BLOOD SPECIMEN Performed By: #### 5 8410-2 #### [facility] [place] [facility] CLIA [id number] [address] [facility] [place] [address] [place] Differential cell count method Nom (Bld) Auto Normal [facility] Comment on above: Order Comment: Speci men Type: BLOOD SPECIMEN Performed By: #### 5 8410-2 #### [facility] [place] [facility] CLIA [id number] [address] [facility] [place] [address] [place] Eosinophils (Bld) [#/Vol] 10*3/uL Normal <0.46 [facility] Comment on above: Order Comment: Speci men Type: BLOOD SPECIMEN Performed By: #### 5 8410-2 #### [facility] [place] [facility] CLIA [id number] [address] [facility] [place] [address] [place] Eosinophils/100 WBC (Bld) 0.0 % Normal [facility] Comment on above: Order Comment: Speci men Type: BLOOD SPECIMEN Performed By: #### 5 8410-2 #### [facility] [place] [facility] CLIA [id number] [address] [facility] [place] [address] [place] Erythrocyte distribution width (RBC) [Ratio] 12.9 % Normal 11.5-15.0 [facility] Comment on above: Order Comment: Speci men Type: BLOOD SPECIMEN Performed By: #### 5 8410-2 #### [facility] [place] [facility] CLIA [id number] [address] [facility] [place] [address] [place] Hematocrit (Bld) [Volume fraction] 35.8 % Low 36.0-46.0 [facility] Comment on above: Order Comment: Speci men Type: BLOOD SPECIMEN Performed By: #### 5 8410-2 #### [facility] [place] [facility] CLIA [id number] [address] [facility] [place] [address] [place] Hemoglobin (Bld) [Mass/Vol] 12.2 g/dL Normal 11.5-15.5 [facility] Comment on above: Order Comment: Speci men Type: BLOOD SPECIMEN Performed By: #### 5 8410-2 #### [facility] [place] [facility] CLIA [id number] [address] [facility] [place] [address] [facility] IMMATURE GRAN % 0.6 % Normal [facility] Comment on above: Order Comment: Speci men Type: BLOOD SPECIMEN Performed By: #### 5 8410-2 #### [facility] [place] [facility] CLIA [id number] [address] [facility] [place] [address] [facility] [place] IMMATURE GRAN ABS 0.06 k/uL Normal <0.10 [facility] Comment on above: Order Comment: Speci men Type: BLOOD SPECIMEN Performed By: #### 5 8410-2 #### [facility] [place] [facility] CLIA [id number] [address] [facility] [place] [address] [place] Lymphocytes (Bld) [#/Vol] 1.51 10*3/uL Normal 1.00-4.00 [facility] Comment on above: Order Comment: Speci men Type: BLOOD SPECIMEN Performed By: #### 5 8410-2 #### [facility] [place] [facility] CLIA [id number] [address] [facility] [place] [address] [facility] Lymphocytes/100 WBC (Bld) 15.3 % Normal [facility] Comment on above: Order Comment: Speci men Type: BLOOD SPECIMEN Performed By: #### 5 8410-2 #### [facility] [place] [facility] CLIA [id number] [address] [facility] [place] [address] [place] MCH (RBC) [Entitic mass] 31.6 pg Normal 26.0-34.0 [facility] Comment on above: Order Comment: Speci men Type: BLOOD SPECIMEN Performed By: #### 5 8410-2 #### [facility] [place] [facility] CLIA [id number] [address] [facility] [place] [address] [place] MCHC (RBC) [Mass/Vol] 34.1 g/dL Normal 30.5-36.0 [facility] Comment on above: Order Comment: Speci men Type: BLOOD SPECIMEN Performed By: #### 5 8410-2 #### [facility] [place] [facility] CLIA [id number] [address] [facility] [place] [address] [facility] MCV (RBC) [Entitic vol] 92.7 fL Normal 80.0-100.0 [facility] Comment on above: Order Comment: Speci men Type: BLOOD SPECIMEN Performed By: #### 5 8410-2 #### [facility] [place] [facility] CLIA [id number] [address] [facility] [place] [address] [place] Monocytes (Bld) [#/Vol] 0.73 10*3/uL Normal <0.87 [facility] Comment on above: Order Comment: Speci men Type: BLOOD SPECIMEN Performed By: #### 5 8410-2 #### [facility] [place] [facility] CLIA [id number] [address] [place] [address] [place] Monocytes/100 WBC (Bld) 7.4 % Normal [facility] Comment on above: Order Comment: Speci men Type: BLOOD SPECIMEN Performed By: #### 5 8410-2 #### [facility] [place] [facility] CLIA [id number] [address] [facility] [place] [address] [place] Neutrophils (Bld) [#/Vol] 7.56 10*3/uL High 1.45-7.50 [facility] Comment on above: Order Comment: Speci men Type: BLOOD SPECIMEN Performed By: #### 5 8410-2 #### [facility] [place] [facility] CLIA [id number] [address] [place] [address] [place] Neutrophils/100 WBC (Bld) 76.6 % Normal [facility] Comment on above: Order Comment: Speci men Type: BLOOD SPECIMEN Performed By: #### 5 8410-2 #### [facility] [place] [facility] CLIA [id number] [address] [place] [address] [place] Nucleated RBC (Bld) [#/Vol] 10*3/uL Normal <0.01 [facility] Comment on above: Order Comment: Speci men Type: BLOOD SPECIMEN Performed By: #### 5 8410-2 #### [facility] [place] [facility] CLIA [id number] [address] [facility] [place] [address] [place] Nucleated RBC/100 WBC (Bld) [Ratio] 0.0 /100 WBC Normal 0.0 [facility] Comment on above: Order Comment: Speci men Type: BLOOD SPECIMEN Performed By: #### 5 8410-2 #### [facility] [place] [facility] CLIA [id number] [address] [facility] [place] [address] [place] Platelet mean volume (Bld) [Entitic vol] 11.6 fL Normal 9.0-12.7 [facility] Comment on above: Order Comment: Speci men Type: BLOOD SPECIMEN Performed By: #### 5 8410-2 #### [facility] [place] [facility] CLIA [id number] [address] [facility] [place] [address] [place] Platelets (Bld) [#/Vol] 244 10*3/uL Normal 150-400 [facility] Comment on above: Order Comment: Speci men Type: BLOOD SPECIMEN Performed By: #### 5 8410-2 #### [facility] [place] [facility] CLIA [id number] [address] [facility] [place] [address] [place] RBC (Bld) [#/Vol] 3.86 10*6/uL Low 3.90-5.20 [facility] Comment on above: Order Comment: Speci men Type: BLOOD SPECIMEN Performed By: #### 5 8410-2 #### [facility] [place] [facility] CLIA [id number] [address] [facility] [place] [address] [place] WBC (Bld) [#/Vol] 9.87 10*3/uL Normal 3.70-11.00 [facility] Comment on above: Order Comment: Speci men Type: BLOOD SPECIMEN Performed By: #### 5 8410-2 #### [facility] [place] [facility] CLIA [id number] [address] [place], [place] [address] [facility] NUTRITIONon 03-11-2020 NUTRITION HNO ID: [id number] Author: Tyra Rios) DANIKA Gallardo Service: Nutrition [...] - 90 Grams protein determined by: 1.2-1.5 g/kg;[place] Body Weight Care Plan: Enteral Nutrition Tube [...] March 11, 2020 TIME: 12:15 PM PAGER: [phone] Normal [facility] PROGRESSon 03-11-2020 PROGRESS HNO ID: [id number] Author: Maite Regalado Service: Hospital Medicine Author [...] COVID here after negative rapid test at [place]. Still on Corpak feeding. Patient with moderate [...] Assessment AND Plan: Mild, no ACS or PR suspected Closed left ankle fracture POA: Yes [...] nursing staff and/or other providers, documentation, order tracer, and wbat-yi-yeop time with patient. Diagnostic tests reviewed for [...] AND WEEKEND COVERAGE: After 7pm please page [phone] [facility] PROGRESS HNO ID: [id number] Author: Ortega Seay Service: Infectious Disease Author Type: Physician Type: Progress Notes Filed: 03/11/2020 1:07 PM Note Text: 1:06 PM Afebrile Continue remdesivir for 5 day course and decadron for 10. Monitor daily LFTs and renal function while on the remdesivir. ID sign off. [facility] PROGRESS HNO ID: [id number] Author: Leland Herrera Service: Orthopaedic Surgery Author [...] Interval History: Chart reviewed. Patient transferred from [facility] yesterday. Dedesivir and decadron initiated per infectious [...] MD Orthopaedic Surgery March 11, 2020 Normal [facility] THERAPY NTon 03-11-2020 THERAPY NT HNO ID: [id number] Author: Evon Garcia OT Service: Occupational Therapy Author Type: Occupational Therapist Type: Therapy (PT/OT/Speech/Resp) Filed: 03/11/2020 9:44 AM Note Text: Occupational Therapy Evaluation SERVICE DATE: 03/11/2020 SERVICE TIME: 0845 to 0915 ROOM: [place] [address] Recommended Discharge Disposition: Acute Rehab Recommended Discharge [...] Walk in Laundry: Minimally completes Equipment Owned: Patch of LandShower Prior Functional Level: (driving, activity limited by LBP) Prior Functional Level Comments: 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; 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 d/t 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 pain [...] Weakness (generalized) Interventions Provided: Evaluation $ Evaluation-High (72242) Billed Units: 1 unit Training AND education [...] March 11, 2020 TIME: 9:43 AM Normal [facility] THERAPY NT HNO ID: [id number] Author: Paulette (Pt) Neisha Service: Physical Therapy Author Type: Physical Therapist Type: Therapy (PT/OT/Speech/Resp) Filed: 03/11/2020 9:44 AM Note Text: Physical Therapy Evaluation SERVICE DATE: 03/11/2020 SERVICE TIME: 45 to 15 ROOM: [place] [address] Recommended Discharge Disposition: Acute Rehab Justification For [...] Prior Functional Level Comments: 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; 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 d/t 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 pain [...] (generalized);Difficulty walking-musculoskeletal Interventions Provided: Evaluation $ Evaluation-High (98043) Billed Units: 1 unit Patient was able [...] DATE: March 11, 2020 TIME: 9:42 AM [facility] HNO ID: [id number] Author: Marija Jean-BaptisteRtJade Acosta Service: Radiology Author Type: Crowning Inspector Type: Allied Health Filed: 03/10/2020 11:47 AM [...] RT Monie March 10, 2020 11:47 AM [facility] ALLIED HEALTH HNO ID: [id number] Author: Marixa Jean-BaptisteRtJade Blackwell Service: Radiology Author Type: Crowning Inspector Type: Allied Health Filed: 03/10/2020 5:10 AM [...] Suha March 10, 2020 5:10 AM Normal [facility] Bas Metab 1999 Pnl SerPlon 1 05-10-2019 Anion gap [Moles/Vol] 12 mmol/L Normal 9-18 [facility] Comment on above: Order Comment: Speci men Type: BLOOD SPECIMEN Performed By: #### 2 4321-2 ####[facility]ATORYCLIA [id number] [place] [address] Calcium [Mass/Vol] 8.8 mg/dL Normal 8.5-10.2 [facility] Comment on above: Order Comment: Speci men Type: BLOOD SPECIMEN Performed By: #### 2 4321-2 ####[facility]ATORYCLIA [id number] [place] [address] Chloride [Moles/Vol] 104 mmol/L Normal 97-105 [facility] Comment on above: Order Comment: Speci men Type: BLOOD SPECIMEN Performed By: #### 2 4321-2 ####[facility]ORYCLIA [id number] [place] [address] CO2 [Moles/Vol] 23 mmol/L Normal 22-30 [facility] Comment on above: Order Comment: Speci men Type: BLOOD SPECIMEN Performed By: #### 2 4321-2 ####[facility]ORYCLIA [id number] [place] [address] Creatinine [Mass/Vol] 1.23 mg/dL High 0.58-0.96 [facility] Comment on above: Order Comment: Speci men Type: BLOOD SPECIMEN Performed By: #### 2 4321-2 ####[facility]ORYCLIA [id number] [place] [address] GFR/1.73 sq M.predicted MDRD (S/P/Bld) [Vol rate/Area] 52 mL/min/{1.73_m2} Normal [facility] Comment on above: Order Comment: [facility]i [facility] Type: BLOOD SPECIMEN Result Comment: 43 eGFR [...] actual GFR. Performed By: #### 2 4321-2 ####[facility] [id number] [place] [address] Glucose [Mass/Vol] 271 mg/dL High 74-99 [facility] Comment on above: Order Comment: Speci [facility] Type: BLOOD SPECIMEN Result Comment: The [place] [employer] (ADA) provides guidance for cutoff [...] Standards of Medical Care in Diabetes 2016, [place] [employer]. Diabetes Care. 2016.39(Suppl 1). Performed By: #### 2 4321-2 ####[facility]ORYCLIA [id number] [place] [address] Potassium [Moles/Vol] 3.8 mmol/L Normal 3.7-5.1 [facility] Comment on above: Order Comment: Speci men Type: BLOOD SPECIMEN Performed By: #### 2 4321-2 ####[facility]ORYCLIA [id number] [place] [address] Sodium [Moles/Vol] 139 mmol/L Normal 136-144 [facility] Comment on above: Order Comment: Speci men Type: BLOOD SPECIMEN Performed By: #### 2 4321-2 ####[facility]ORYCLIA [id number] [place] [address] Urea nitrogen [Mass/Vol] 26 mg/dL High 7-21 [facility] Comment on above: Order Comment: Speci men Type: BLOOD SPECIMEN Performed By: #### 2 4321-2 ####[facility]ORYCLIA [id number] [place] [address] CBC W Auto Diff [place] 2019 Basophils (Bld) [#/Vol] 0.04 10*3/uL Normal <0.11 [facility] Comment on above: Order Comment: Speci men Type: BLOOD SPECIMEN Performed By: #### 5 8410-2 #### [facility] [place] [facility] CLIA [id number] [address] [place] [address] [place] Basophils/100 WBC (Bld) 0.4 % Normal [facility] Comment on above: Order Comment: Speci men Type: BLOOD SPECIMEN Performed By: #### 5 8410-2 #### [facility] CLIA [id number] [address] [place] [address] [place] Differential cell count method Nom (Bld) Auto Normal [facility] Comment on above: Order Comment: Speci men Type: BLOOD SPECIMEN Performed By: #### 5 8410-2 #### [facility] CLIA [id number] [address] [place] [address] [place] Eosinophils (Bld) [#/Vol] 10*3/uL Normal <0.46 [facility] Comment on above: Order Comment: Speci men Type: BLOOD SPECIMEN Performed By: #### 5 8410-2 #### [facility] CLIA [id number] [address] [facility] [place] [address] [facility] Eosinophils/100 WBC (Bld) 0.0 % Normal [facility] Comment on above: Order Comment: Speci men Type: BLOOD SPECIMEN Performed By: #### 5 8410-2 #### [facility] CLIA [id number] [address] [facility] [place] [address] [place] Erythrocyte distribution width (RBC) [Ratio] 12.8 % Normal 11.5-15.0 [facility] Comment on above: Order Comment: Speci men Type: BLOOD SPECIMEN Performed By: #### 5 8410-2 #### [facility] CLIA [id number] [address] [place] [address] [facility] Hematocrit (Bld) [Volume fraction] 36.6 % Normal 36.0-46.0 [facility] Comment on above: Order Comment: Speci men Type: BLOOD SPECIMEN Performed By: #### 5 8410-2 #### [facility] CLIA [id number] [address] [place] [address] [facility] Hemoglobin (Bld) [Mass/Vol] 12.7 g/dL Normal 11.5-15.5 [facility] Comment on above: Order Comment: Speci men Type: BLOOD SPECIMEN Performed By: #### 5 8410-2 #### [facility] CLIA [id number] [address] [place] [address] [facility] IMMATURE GRAN % 0.4 % Normal [facility] Comment on above: Order Comment: Speci men Type: BLOOD SPECIMEN Performed By: #### 5 8410-2 #### [facility] CLIA [id number] [address] [place] [address] [place] IMMATURE GRAN ABS 0.04 k/uL Normal <0.10 [facility] Comment on above: Order Comment: Speci men Type: BLOOD SPECIMEN Performed By: #### 5 8410-2 #### [facility] CLIA [id number] [address] [place] [address] [place] Lymphocytes (Bld) [#/Vol] 1.73 10*3/uL Normal 1.00-4.00 [facility] Comment on above: Order Comment: Speci men Type: BLOOD SPECIMEN Performed By: #### 5 8410-2 #### [facility] CLIA [id number] [address] [facility] [place] [address] [place] Lymphocytes/100 WBC (Bld) 16.3 % Normal [facility] Comment on above: Order Comment: Speci men Type: BLOOD SPECIMEN Performed By: #### 5 8410-2 #### [facility] CLIA [id number] [address] [facility] [place] [address] [place] MCH (RBC) [Entitic mass] 31.2 pg Normal 26.0-34.0 [facility] Comment on above: Order Comment: Speci men Type: BLOOD SPECIMEN Performed By: #### 5 8410-2 #### [facility] CLIA [id number] [address] [facility] [place] [address] [place] MCHC (RBC) [Mass/Vol] 34.7 g/dL Normal 30.5-36.0 [facility] Comment on above: Order Comment: Speci men Type: BLOOD SPECIMEN Performed By: #### 5 8410-2 #### [facility] CLIA [id number] [address] [facility] [place] [address] [place] MCV (RBC) [Entitic vol] 89.9 fL Normal 80.0-100.0 [facility] Comment on above: Order Comment: Speci men Type: BLOOD SPECIMEN Performed By: #### 5 8410-2 #### [facility] CLIA [id number] [address] [facility] [place] [address] [place] Monocytes (Bld) [#/Vol] 0.78 10*3/uL Normal <0.87 [facility] Comment on above: Order Comment: Speci men Type: BLOOD SPECIMEN Performed By: #### 5 8410-2 #### [facility] CLIA [id number] [address] [place] [address] [facility] Monocytes/100 WBC (Bld) 7.3 % Normal [facility] Comment on above: Order Comment: Speci men Type: BLOOD SPECIMEN Performed By: #### 5 8410-2 #### [facility] CLIA [id number] [address] [place] [address] [facility] Neutrophils (Bld) [#/Vol] 8.05 10*3/uL High 1.45-7.50 [facility] Comment on above: Order Comment: Speci men Type: BLOOD SPECIMEN Performed By: #### 5 8410-2 #### [facility] CLIA [id number] [address] [place] [address] [facility] Neutrophils/100 WBC (Bld) 75.6 % Normal [facility] Comment on above: Order Comment: Speci men Type: BLOOD SPECIMEN Performed By: #### 5 8410-2 #### [facility] CLIA [id number] [address] [place] [address] [facility] Nucleated RBC (Bld) [#/Vol] 10*3/uL Normal <0.01 [facility] Comment on above: Order Comment: Speci men Type: BLOOD SPECIMEN Performed By: #### 5 8410-2 #### [facility] CLIA [id number] [address] [place] [address] [facility] Nucleated RBC/100 WBC (Bld) [Ratio] 0.0 /100 WBC Normal 0.0 [facility] Comment on above: Order Comment: Speci men Type: BLOOD SPECIMEN Performed By: #### 5 8410-2 #### [facility] CLIA [id number] [address] [place] [address] [facility] Platelet mean volume (Bld) [Entitic vol] 10.2 fL Normal 9.0-12.7 [facility] Comment on above: Order Comment: Speci men Type: BLOOD SPECIMEN Performed By: #### 5 8410-2 #### [facility] CLIA [id number] [address] [place] [address] [facility] Platelets (Bld) [#/Vol] 207 10*3/uL Normal 150-400 [facility] Comment on above: Order Comment: Speci men Type: BLOOD SPECIMEN Performed By: #### 5 8410-2 #### [facility] CLIA [id number] [address] [place] [address] [facility] RBC (Bld) [#/Vol] 4.07 10*6/uL Normal 3.90-5.20 [facility] Comment on above: Order Comment: Speci men Type: BLOOD SPECIMEN Performed By: #### 5 8410-2 #### [facility] CLIA [id number] [address] [place] [address] [facility] WBC (Bld) [#/Vol] 10.64 10*3/uL Normal 3.70-11.00 [facility] Comment on above: Order Comment: Speci men Type: BLOOD SPECIMEN Performed By: #### 5 8410-2 #### [facility] CLIA [id number] [address] [place] [address] [facility] CONSULTon 03-10-2020 CONSULT HNO ID: [id number] Author: Ortega Seay Service: Infectious Disease Author Type: Physician Type: Consults Filed: 03/12/2020 10:37 AM Note Text: [facility] - Consultation PATIENT NAME: LISA SHIRLEY CSN: [id number] DATE OF : 1945 SEX/AGE: F/74 PATIENT TYPE: I HOSP SVC: INTM LOCATION: [id number] DATE OF SERVICE: 03/10/2020 TIME OF SERVICE: 10:10 AM REFERRING PHYSICIAN: ASHLEIGH THURSTON REASON FOR CONSULTATION: Fever, leukocytosis, COVID-19 infection, antibiotic management. HISTORY OF PRESENT ILLNESS: This patient is a 74-year-old woman with multiple medical problems including diabetes mellitus type 2, obesity, irritable bowel syndrome, previous stroke. She is confused and the history is obtained from reviewing the chart. She apparently presented to [facility] with an acute right MCA stroke. She was found down at home and police did a welfare check and found her down on the ground at home. She is noted to have left ankle bruising and swelling. In the ER at [place], she had a CT of the head [...] was transferred to the Neuro ICU at [facility]. Her initial white blood cell count [...] you. Ortega Seay MD, MS, [facility] [address] Infectious Disease RRW:modl /[id number] Normal [facility] CONSULT HNO ID: [id number] Author: Ortega Seay Service: Infectious Disease Author Type: Physician Type: Consults Filed: 03/10/2020 10:21 AM Note Text: 10:20 AM Consult dictated #[id number] Start remdesivir and decadron for hypoxia and COVID-19. Monitor LFTs and renal function daily. Normal [facility] CT BRAIN WO IVCONon 11-14-[address] BRAIN WO IVCON Final Report DATE OF EXAM: Mar 10 2020 5:09AM [facility] 0504 - CT BRAIN WO IVCON [...] MRI brain 03/09/2020. CT brain 03/08/2020. RESULT: Communications Consultant (topogram) images: Unremarkable. Post-operative change: None. Acute [...] ischemic changes of the supratentorial white matter. Fiberglass Roller: TENISHA Transcribe Date/Time: Mar 10 2020 11:17A Dictated by : GEO CONTEH MD This examination was interpreted and the report reviewed and electronically signed by: GEO CONTEH MD on Mar 10 2020 11:23AM EST Normal [facility] HEPATIC FUNCTION PNLon 03-10 Albumin [Mass/Vol] 3.3 g/dL Low 3.9-4.9 [facility] Comment on above: Order Comment: Speci men Type: BLOOD SPECIMEN Performed By: #### 2 4321-2 #### [facility] CLIA [id number] [address] [place] [address] ALP [Catalytic activity/Vol] 64 U/L Normal 34-123 [facility] Comment on above: Order Comment: Speci men Type: BLOOD SPECIMEN Performed By: #### 2 4321-2 #### [facility] CLIA [id number] [address] [place] [address] ALT With P-5'-P [Catalytic activity/Vol] 21 U/L Normal 7-38 [facility] Comment on above: Order Comment: Speci men Type: BLOOD SPECIMEN Performed By: #### 2 4321-2 #### [facility] CLIA [id number] [address] [place] [address] AST With P-5'-P [Catalytic activity/Vol] 25 U/L Normal 13-35 [facility] Comment on above: Order Comment: Speci men Type: BLOOD SPECIMEN Performed By: #### 2 4321-2 #### [facility] CLIA [id number] [address] [place] [address] Bilirubin [Mass/Vol] 0.4 mg/dL Normal 0.2-1.3 [facility] Comment on above: Order Comment: Speci men Type: BLOOD SPECIMEN Performed By: #### 2 4321-2 #### [facility] CLIA [id number] [address] [place] [address] Bilirubin.conjugated [Mass/Vol] mg/dL Normal <0.2 [facility] Comment on above: Order Comment: Speci men Type: BLOOD SPECIMEN Performed By: #### 2 4321-2 #### [facility] CLIA [id number] [address] [place] [address] Protein [Mass/Vol] 6.6 g/dL Normal 6.3-8.0 [facility] Comment on above: Order Comment: Speci men Type: BLOOD SPECIMEN Performed By: #### 2 4321-2 #### [facility] CLIA [id number] [address] [place] [id number] NURSING PROGon 03-10-2020 NURSING PROG HNO ID: [id number] Author: Elda Tovar) JONNY Isaac Service: Nursing Author Type: Registered Nurse Type: Nursing Progress Note Filed: 03/10/2020 2:07 PM Note Text: Nursing Progress: Topic: RESTRAINT NON-VIOLENT PATIENT NAME: Lisa Shirley PATIENT LOCATION: [id number]/[facility]* The patient demonstrates Attempting to Remove Medical [...] TIME: 2:06 PM Elda Isaac RN Normal [facility] NURSING PROG HNO ID: [id number] Author: Kathryn Tovar) JONNY Rose Service: Nursing Author Type: Registered Nurse Type: Nursing Progress Note Filed: 03/10/2020 11:59 AM Note Text: Patient transferred to [facility]. RN called report to [address]. RN called patient's son, Osmany and updated on status and transfer to [facility]. Informed him there are no visitors allowed on that floor. All belongings taken with patient. Blood work obtained prior to transfer. Bedside hand off with 9100 RN completed. myriam barraza [facility] NURSING PROG HNO ID: [id number] Author: Kathryn Tovar) Rose, RN Service: Nursing Author Type: Registered Nurse Type: Nursing Progress Note Filed: 03/10/2020 11:54 AM Note Text: Patient has positive and negative covid results in the computer. According to fast food shift lead report patient was to stay in NSICU. RN questioning need for isolation. Patient was not in isolation upon start of shift. Per nsicu resident okay to place in isolation. -placed in contact/droplet isolation. RN called lab to clarify covid status. Per lab recommends consulting infectious disease to assess. RN updated Dr. Lira and order for ID consult placed. Myriam barraza [facility] PLAN OF CAREon 03-10-2020 PLAN OF CARE HNO ID: [id number] Author: Brittnee Lima Service: Neurology General Author [...] to follow. Please call with any concerns [facility] PROGRESSon 03-10-2020 PROGRESS HNO ID: [id number] Author: Leland Herrera Service: Orthopaedic Surgery Author [...] MD Orthopaedic Surgery March 10, 2020 Normal [facility] PT Pnl PPPon 03-10-2020 INR Coag (PPP) [Relative time] 1.0 {INR} Normal 0.9-1.3 [facility] Comment on above: Order Comment: Speci men Type: BLOOD SPECIMEN Result Comment: Francia min K Antagonist (VKA) Therapeutic Range: INR 2 to 3 (Target INR of 2.5) Note: For patients treated with VKA drugs, such as warfarin, the [place] [employer] 2012 Guideline recommends [...] Chest 2012, 141:7S-47S Caro RA, et al. [facility] 2017, 70: 252-289 Performed By: #### 2 4321-2 #### [facility] CLIA [id number] [address] [place] [address] PT Coag (PPP) [Time] 10.5 s Normal 9.7-13.0 [facility] Comment on above: Order Comment: Speci men Type: BLOOD SPECIMEN Performed By: #### 2 4321-2 #### [facility] CLIA [id number] [address] [place] [address] THERAPY NTon 03-10-2020 THERAPY NT HNO ID: [id number] Author: Osmar (Ccc-Paddle Dyeing Machine OperatorCesario Calloway CCC/HIGHWAY ADMINISTRATIVE ENGINEER Service: Speech/Swallow Author Type: Speech Language Pathologist Type: Therapy (PT/OT/Speech/Resp) Filed: 03/10/2020 3:25 PM Note Text: Speech Therapy Treatment SERVICE DATE: 03/10/2020 SERVICE TIME: 1415 to 1435 ROOM: [id number] IMPRESSION: Patient demonstrates oropharyngeal dysphagia which is [...] tolerance;Motivated Current Hospital Course: COVID-19+ transfer from [facility] to [facility] Reason for Hospital Admission: Stroke Rehabilitation Precautions: [...] 0, Mildly Thick Liquids IDDSI Level 2 (Gerlach Thick) Patient with decreased alertness today Unable [...] following cerebral infarction Interventions Provided: Dysphagia Therapy (77873);Speech Therapy (50836) $ Dysphagia Therapy (48929) Billed Units: 1 unit $ Speech Therapy (53409) Billed Units: 1 unit Training and education provided in: Swallowing Strategies, Dysphagia Management, Motor Speech Skills(Left sided awareness) The following therapeutic skills were used:: Verbal cuing, Visual cuing, Tactile cuing, Repetitive task learning, Education on role of discipline / importance of activity Total Treatment Time (minutes): 220 Home Environment Prior Functional Level: Within Functional Limits Assistance Available: typecasting machine operator Prior Swallowing Function/Diet Textures: Regular Consistency;Thin Liquids IDDSI Level 0 Please see discipline specific clinical documentation flowsheet for complete details for this therapy evaluation/treatment. SIGNATURE: Osmar Calloway CCC-HIGHWAY ADMINISTRATIVE ENGINEER PATIENT NAME: Lisa Shirley DATE: March 10, 2020 TIME: 3:17 PM Normal [facility] XR CHEST 1V FRONTALon 2019 XR CHEST [...] enteric tube with tip terminating off the onore-ti-hsjb below the diaphragm. Lungs and pleura: No consolidation. No pneumothorax. No pleural effusion. Cardiomediastinal silhouette: Stable cardiomediastinal silhouette. Cardiomegaly. IMPRESSION: No acute findings. Fiberglass Roller: PSCB Transcribe Date/Time: Mar 10 2020 7:13P Dictated by : TAHMINA WOOD MD This examination was interpreted and the report reviewed and electronically signed by: TAHMINA WOOD MD on Mar 10 2020 7:15PM EST Normal [facility] ALLIED HEALTHon 03-09-2020 ALLIED HEALTH HNO ID: [id number] Author: Jade Hoover (Rt) Service: Radiology Author Type: Crowning Inspector Type: Allied Health Filed: 03/09/2020 9:08 PM [...] RT RIMA March 09, 2020 9:07 PM [facility] HNO ID: [id number] Author: Jade Jones (Rt) Service: Radiology Author Type: Crowning Inspector Type: Foodist [facility] Filed: 03/09/2020 2:28 PM Note Text: Radiology [...] RT Robert March 09, 2020 2:28 PM [facility] HNO ID: [id number] Author: Jade Thomas (Rt) Service: Radiology Author Type: Crowning Inspector Type: Allied Health Filed: 03/09/2020 6:38 AM Note Text: Called for MRI screening form. [facility] HNO ID: [id number] Author: Jade Wall (Rt) Service: Radiology Author Type: Crowning Inspector Type: Allied Health Filed: 03/09/2020 4:59 AM [...] RT Ranjan March 09, 2020 4:57 AM [facility] HNO ID: [id number] Author: Jade Woodruff (Rt) Service: Radiology Author Type: Crowning Inspector Type: [facility] Filed: 03/09/2020 1:06 AM Note Text: [...] RT Ranjan March 09, 2020 1:06 AM [facility] HNO ID: [id number] Author: Jade Woodruff (Rt) Service: Radiology Author Type: Crowning Inspector Type: Allied Health Filed: 03/08/2020 11:46 PM [...] RT Ranjan March 08, 2020 11:46 PM [facility]IED [facility] HNO ID: [id number] Author: Jade Hartman (Rt) Service: Radiology Author Type: Crowning Inspector Type: Allied Health Filed: 03/08/2020 10:34 PM [...] RT Minnie March 08, 2020 10:30 PM [facility] Bacteria Bld Culton 03-09-20 20 Bacteria identified Cx Nom (Bld) CULTURE, BLOOD: No growth 5 days Normal [facility] Comment on above: Performed By: #### 5 8410-2 #### [facility] CLIA [id number] [address] [place] [address] [place] Bacteria identified Cx Nom (Bld) CULTURE, BLOOD: No growth 5 days Normal [facility] Comment on above: Performed By: #### 5 8410-2 #### [facility] CLIA [id number] [address] [facility] [place] [address] [place] Bacteria Ur Culton 0 Bacteria identified Cx Nom (U) CULTURE, URINE: 1,000-<5,000 CFU/mL Normal urogenital keisha Normal [facility] Comment on above: Performed By: #### 5 8410-2 #### [facility] CLIA [id number] [address] [facility] [place] [address] [place] Bas Metab 2000 Pnl SerPlon 1 05-09-2019 Anion gap [Moles/Vol] 11 mmol/L Normal 9-18 [facility] Comment on above: Order Comment: Speci men Type: BLOOD SPECIMEN Performed By: #### 5 8410-2 #### [facility] CLIA [id number] [address] [place] [address] Calcium [Mass/Vol] 8.9 mg/dL Normal 8.5-10.2 [facility] Comment on above: Order Comment: Speci men Type: BLOOD SPECIMEN Performed By: #### 5 8410-2 #### [facility] CLIA [id number] [address] [place] [address] Chloride [Moles/Vol] 104 mmol/L Normal 97-105 [facility] Comment on above: Order Comment: Speci men Type: BLOOD SPECIMEN Performed By: #### 5 8410-2 #### [facility] CLIA [id number] [address] [place] [address] CO2 [Moles/Vol] 23 mmol/L Normal 22-30 [facility] Comment on above: Order Comment: Speci men Type: BLOOD SPECIMEN Performed By: #### 5 8410-2 #### [facility] CLIA [id number] [address] [place] [address] Creatinine [Mass/Vol] 1.10 mg/dL High 0.58-0.96 [facility] Comment on above: Order Comment: Speci men Type: BLOOD SPECIMEN Performed By: #### 5 8410-2 #### [facility] CLIA [id number] [address] [place] [address] GFR/1.73 sq M.predicted MDRD (S/P/Bld) [Vol rate/Area] 59 mL/min/{1.73_m2} Normal [facility] Comment on above: Order Comment: Speci [...] GFR. Performed By: #### 5 8410-2 #### [facility] CLIA [id number] [address] [place] [address] Glucose [Mass/Vol] 175 mg/dL High 74-99 [facility] Comment on above: Order Comment: Speci men Type: BLOOD SPECIMEN Result Comment: The [place] [employer] (ADA) provides guidance for cutoff [...] Standards of Medical Care in Diabetes 2016, [place] [employer]. Diabetes Care. 2016.39(Suppl 1). Performed By: #### 5 8410-2 #### [facility] CLIA [id number] [address] [place] [address] Potassium [Moles/Vol] 3.6 mmol/L Low 3.7-5.1 [facility] Comment on above: Order Comment: Speci men Type: BLOOD SPECIMEN Performed By: #### 5 8410-2 #### [facility] CLIA [id number] [address] [place] [address] Sodium [Moles/Vol] 138 mmol/L Normal 136-144 [facility] Comment on above: Order Comment: Speci men Type: BLOOD SPECIMEN Performed By: #### 5 8410-2 #### [facility] CLIA [id number] [address] [place] [address] Urea nitrogen [Mass/Vol] 24 mg/dL High 7-21 [facility] Comment on above: Order Comment: Speci men Type: BLOOD SPECIMEN Performed By: #### 5 8410-2 #### [facility] CLIA [id number] [address] [place] [address] Anion gap [Moles/Vol] 11 mmol/L Normal 9-18 [facility] Comment on above: Order Comment: Speci men Type: BLOOD SPECIMEN Performed By: #### 2 4321-2 #### [facility] CLIA [id number] [address] [place] [address] Calcium [Mass/Vol] 9.3 mg/dL Normal 8.5-10.2 [facility] Comment on above: Order Comment: Speci men Type: BLOOD SPECIMEN Performed By: #### 2 4321-2 #### [facility] CLIA [id number] [address] [place] [address] Chloride [Moles/Vol] 105 mmol/L Normal 97-105 [facility] Comment on above: Order Comment: Speci men Type: BLOOD SPECIMEN Performed By: #### 2 4321-2 #### [facility] CLIA [id number] [address] [place] [address] CO2 [Moles/Vol] 22 mmol/L Normal 22-30 [facility] Comment on above: Order Comment: Speci men Type: BLOOD SPECIMEN Performed By: #### 2 4321-2 #### [facility] CLIA [id number] [address] [place] [address] Creatinine [Mass/Vol] 1.07 mg/dL High 0.58-0.96 [facility] Comment on above: Order Comment: Speci men Type: BLOOD SPECIMEN Performed By: #### 2 4321-2 #### [facility] CLIA [id number] [address] [place] [address] GFR/1.73 sq M.predicted MDRD (S/P/Bld) [Vol rate/Area] mL/min/{1.73_m2} Normal [facility] Comment on above: Order Comment: Speci [...] GFR. Performed By: #### 2 4321-2 #### [facility] CLIA [id number] [address] [place] [address] Glucose [Mass/Vol] 180 mg/dL High 74-99 [facility] Comment on above: Order Comment: Speci men Type: BLOOD SPECIMEN Result Comment: The [place] [employer] (ADA) provides guidance for cutoff [...] Standards of Medical Care in Diabetes 2016, [place] [employer]. Diabetes Care. 2016.39(Suppl 1). Performed By: #### 2 4321-2 #### [facility] CLIA [id number] [address] [place] [address] Potassium [Moles/Vol] 3.4 mmol/L Low 3.5-5.0 [facility] Comment on above: Order Comment: Speci men Type: BLOOD SPECIMEN Performed By: #### 2 4321-2 #### [facility] CLIA [id number] [address] [place] [address] Order Comment: Speci men Type: VENOUS BLOOD SPECIMEN Performed By: #### 2 4344-4 ####[facility] [id number] [place] [address] Sodium [Moles/Vol] 138 mmol/L Normal 136-144 [facility] Comment on above: Order Comment: Speci men Type: BLOOD SPECIMEN Performed By: #### 2 4321-2 #### [facility] CLIA [id number] [address] [place] [address] Urea nitrogen [Mass/Vol] 24 mg/dL High 7-21 [facility] Comment on above: Order Comment: Speci men Type: BLOOD SPECIMEN Performed By: #### 2 4321-2 #### [facility] CLIA [id number] [address] [place] [address] Anion gap [Moles/Vol] 14 mmol/L Normal 9-18 [facility] Comment on above: Order Comment: Speci men Type: BLOOD SPECIMEN Performed By: #### C ONABO #### [facility] CLIA [id number] Calcium [Mass/Vol] 9.1 mg/dL Normal 8.5-10.2 [facility] Comment on above: Order Comment: Speci men Type: BLOOD SPECIMEN Performed By: #### C ONABO #### [facility] CLIA [id number] Chloride [Moles/Vol] 105 mmol/L Normal 97-105 [facility] Comment on above: Order Comment: Speci men Type: BLOOD SPECIMEN Performed By: #### C ONABO #### [facility] CLIA [id number] CO2 [Moles/Vol] 23 mmol/L Normal 22-30 [facility] Comment on above: Order Comment: Speci men Type: BLOOD SPECIMEN Performed By: #### C ONABO #### [facility] CLIA [id number] Creatinine [Mass/Vol] 1.13 mg/dL High 0.58-0.96 [facility] Comment on above: Order Comment: Speci men Type: BLOOD SPECIMEN Performed By: #### C ONABO #### [facility] CLIA [id number] GFR/1.73 sq M.predicted MDRD (S/P/Bld) [Vol rate/Area] 57 mL/min/{1.73_m2} Normal [facility] Comment on above: Order Comment: Speci [...] GFR. Performed By: #### C ONABO #### [facility] CLIA [id number] Glucose [Mass/Vol] 154 mg/dL High 74-99 [facility] Comment on above: Order Comment: Speci men Type: BLOOD SPECIMEN Result Comment: The [place] [employer] (ADA) provides guidance for cutoff [...] Standards of Medical Care in Diabetes 2016, [place] [employer]. Diabetes Care. 2016.39(Suppl 1). Performed By: #### C ONABO #### [facility] CLIA [id number] Potassium [Moles/Vol] 3.4 mmol/L Low 3.7-5.1 [facility] Comment on above: Order Comment: Speci men Type: BLOOD SPECIMEN Performed By: #### C ONABO #### [facility] CLIA [id number] Sodium [Moles/Vol] 142 mmol/L Normal 136-144 [facility] Comment on above: Order Comment: Speci men Type: BLOOD SPECIMEN Performed By: #### C ONABO #### [facility] CLIA [id number] Urea nitrogen [Mass/Vol] 25 mg/dL High 7-21 [facility] Comment on above: Order Comment: Speci men Type: BLOOD SPECIMEN Performed By: #### C ONABO #### [facility] CLIA [id number] Anion gap [Moles/Vol] 16 mmol/L Normal 9-18 [facility] Comment on above: Order Comment: Speci men Type: BLOOD SPECIMEN Performed By: #### 2 4321-2 #### [facility] CLIA [id number] [address] [place] [address] Chloride [Moles/Vol] 103 mmol/L Normal 97-105 [facility] Comment on above: Order Comment: Speci men Type: BLOOD SPECIMEN Performed By: #### 2 4321-2 #### [facility] CLIA [id number] [address] [place] [address] Creatinine [Mass/Vol] 1.18 mg/dL High 0.58-0.96 [facility] Comment on above: Order Comment: Speci men Type: BLOOD SPECIMEN Performed By: #### 2 4321-2 #### [facility] CLIA [id number] [address] [place] [address] GFR/1.73 sq M.predicted MDRD (S/P/Bld) [Vol rate/Area] 55 mL/min/{1.73_m2} Normal [facility] Comment on above: Order Comment: Speci [...] GFR. Performed By: #### 2 4321-2 #### [facility] CLIA [id number] [address] [place] [id number] Result Comment: 45 eGFR (Estimated GFR) Units [...] GFR. Glucose [Mass/Vol] 398 mg/dL High 74-99 [facility] Comment on above: Order Comment: Speci men Type: BLOOD SPECIMEN Result Comment: The [place] [employer] (ADA) provides guidance for cutoff [...] Standards of Medical Care in Diabetes 2016, [place] [employer]. Diabetes Care. 2016.39(Suppl 1). Performed By: #### 2 4321-2 #### [facility] CLIA [id number] [address] [place] [address] Sodium [Moles/Vol] 139 mmol/L Normal 136-144 [facility] Comment on above: Order Comment: Speci men Type: BLOOD SPECIMEN Performed By: #### 2 4321-2 #### [facility] CLIA [id number] [address] [place] [address] Urea nitrogen [Mass/Vol] 25 mg/dL High 7-21 [facility] Comment on above: Order Comment: Speci men Type: BLOOD SPECIMEN Performed By: #### 2 4321-2 #### [facility] CLIA [id number] [address] [place] [address] CALCIUM IONIZED Bon 03-09-20 20 Calcium.ionized (BldV) [Mass/Vol] 1.17 mmol/L Normal 1.08-1.30 [facility] Comment on above: Order Comment: Speci men Type: BLOOD SPECIMEN Performed By: #### 5 8410-2 #### [facility] CLIA [id number] [address] [place] [address] Calcium.ionized adjusted to pH 7.4 (Bld) [Moles/Vol] 1.17 mmol/L Normal 1.08-1.30 [facility] Comment on above: Order Comment: Speci men Type: BLOOD SPECIMEN Performed By: #### 5 8410-2 #### [facility] CLIA [id number] [address] [place] [address] CBC W Auto Diff Bldon 11-13- 2020 Basophils (Bld) [#/Vol] 0.04 10*3/uL Normal <0.11 [facility] Comment on above: Order Comment: Speci men Type: BLOOD SPECIMEN Performed By: #### 5 7021-8 ####[facility] [id number] [place] [address] Basophils/100 WBC (Bld) 0.3 % Normal [facility] Comment on above: Order Comment: Speci men Type: BLOOD SPECIMEN Performed By: #### 5 7021-8 ####[facility] [id number] [place] [address] Differential cell count method Nom (Bld) Auto Normal [facility] Comment on above: Order Comment: Speci men Type: BLOOD SPECIMEN Performed By: #### 5 7021-8 ####[facility] [id number] [place] [address] Eosinophils (Bld) [#/Vol] 10*3/uL Normal <0.46 [facility] Comment on above: Order Comment: Speci men Type: BLOOD SPECIMEN Performed By: #### 5 7021-8 ####[facility] [id number] [place] [address] Eosinophils/100 WBC (Bld) 0.0 % Normal [facility] Comment on above: Order Comment: Speci men Type: BLOOD SPECIMEN Performed By: #### 5 7021-8 ####[facility] [id number] [place] [address] Erythrocyte distribution width (RBC) [Ratio] 12.9 % Normal 11.5-15.0 [facility] Comment on above: Order Comment: Speci men Type: BLOOD SPECIMEN Performed By: #### 5 7021-8 ####[facility] [id number] [place] [address] Hematocrit (Bld) [Volume fraction] 39.0 % Normal 36.0-46.0 [facility] Comment on above: Order Comment: Speci men Type: BLOOD SPECIMEN Performed By: #### 5 7021-8 ####[facility] [id number] [place] [address] Hemoglobin (Bld) [Mass/Vol] 12.8 g/dL Normal 11.5-15.5 [facility] Comment on above: Order Comment: Speci men Type: BLOOD SPECIMEN Performed By: #### 5 7021-8 ####[facility] [id number] [place] [address] IMMATURE GRAN % 0.6 % Normal [facility] Comment on above: Order Comment: Speci men Type: BLOOD SPECIMEN Performed By: #### 5 7021-8 ####[facility]IA [id number] [place] [address] IMMATURE GRAN ABS 0.09 k/uL Normal <0.10 [facility] Comment on above: Order Comment: Speci men Type: BLOOD SPECIMEN Performed By: #### 5 7021-8 ####[facility]IA [id number] [place] [address] Lymphocytes (Bld) [#/Vol] 1.65 10*3/uL Normal 1.00-4.00 [facility] Comment on above: Order Comment: Speci men Type: BLOOD SPECIMEN Performed By: #### 5 7021-8 ####[facility]ORY[facility]IA [id number] [place] [address] Lymphocytes/100 WBC (Bld) 11.4 % Normal [facility] Comment on above: Order Comment: Speci men Type: BLOOD SPECIMEN Performed By: #### 5 7021-8 ####[facility]ORY[facility]IA [id number] [place] [address] MCH (RBC) [Entitic mass] 30.5 pg Normal 26.0-34.0 [facility] Comment on above: Order Comment: Speci men Type: BLOOD SPECIMEN Performed By: #### 5 7021-8 ####[facility]ORYCLIA [id number] [place] [address] MCHC (RBC) [Mass/Vol] 32.8 g/dL Normal 30.5-36.0 [facility] Comment on above: Order Comment: Speci men Type: BLOOD SPECIMEN Performed By: #### 5 7021-8 ####[facility]IA [id number] [place] [address] MCV (RBC) [Entitic vol] 92.9 fL Normal 80.0-100.0 [facility] Comment on above: Order Comment: Speci men Type: BLOOD SPECIMEN Performed By: #### 5 7021-8 ####[facility]IA [id number] [place] [address] Monocytes (Bld) [#/Vol] 1.68 10*3/uL High <0.87 [facility] Comment on above: Order Comment: Speci men Type: BLOOD SPECIMEN Performed By: #### 5 7021-8 ####[facility]IA [id number] [place] [address] Monocytes/100 WBC (Bld) 11.6 % Normal [facility] Comment on above: Order Comment: Speci men Type: BLOOD SPECIMEN Performed By: #### 5 7021-8 ####[facility] [id number] [place] [address] Neutrophils (Bld) [#/Vol] 11.04 10*3/uL High 1.45-7.50 [facility] Comment on above: Order Comment: Speci men Type: BLOOD SPECIMEN Performed By: #### 5 7021-8 ####[facility]ORYCLIA [id number] [place] [address] Neutrophils/100 WBC (Bld) 76.1 % Normal [facility] Comment on above: Order Comment: Speci men Type: BLOOD SPECIMEN Performed By: #### 5 7021-8 ####[facility]IA [id number] [place] [address] Nucleated RBC (Bld) [#/Vol] 10*3/uL Normal <0.01 [facility] Comment on above: Order Comment: Speci men Type: BLOOD SPECIMEN Performed By: #### 5 7021-8 ####[facility]IA [id number] [place] [address] Nucleated RBC/100 WBC (Bld) [Ratio] 0.0 /100 WBC Normal 0.0 [facility] Comment on above: Order Comment: Speci men Type: BLOOD SPECIMEN Performed By: #### 5 7021-8 ####[facility]ORYCLIA [id number] [place] [address] Platelet mean volume (Bld) [Entitic vol] 10.3 fL Normal 9.0-12.7 [facility] Comment on above: Order Comment: Speci men Type: BLOOD SPECIMEN Performed By: #### 5 7021-8 ####[facility]ORYCLIA [id number] [place] [address] Platelets (Bld) [#/Vol] 249 10*3/uL Normal 150-400 [facility] Comment on above: Order Comment: Speci men Type: BLOOD SPECIMEN Performed By: #### 5 7021-8 ####[facility]ORYCLIA [id number] [place] [address] RBC (Bld) [#/Vol] 4.20 10*6/uL Normal 3.90-5.20 [facility] Comment on above: Order Comment: Speci men Type: BLOOD SPECIMEN Performed By: #### 5 7021-8 ####[facility]ORYCLIA [id number] [place] [address] WBC (Bld) [#/Vol] 14.50 10*3/uL High 3.70-11.00 [facility] Comment on above: Order Comment: Speci men Type: BLOOD SPECIMEN Performed By: #### 5 7021-8 ####[facility]ORYCLIA [id number] [place] [address] Basophils (Bld) [#/Vol] 0.03 10*3/uL Normal <0.11 [facility] Comment on above: Order Comment: Speci men Type: BLOOD SPECIMEN Performed By: #### 5 8410-2 #### [facility] CLIA [id number] [address] [place] [address] [place] Basophils/100 WBC (Bld) 0.2 % Normal [facility] Comment on above: Order Comment: Speci men Type: BLOOD SPECIMEN Performed By: #### 5 8410-2 #### [facility] CLIA [id number] [address] [facility] [place] [address] [facility] [place] Differential cell count method Nom (Bld) Auto Normal [facility] Comment on above: Order Comment: Speci men Type: BLOOD SPECIMEN Performed By: #### 5 8410-2 #### [facility] CLIA [id number] [address] [facility] [place] [address] [place] Eosinophils (Bld) [#/Vol] 10*3/uL Normal <0.46 [facility] Comment on above: Order Comment: Speci men Type: BLOOD SPECIMEN Performed By: #### 5 8410-2 #### [facility] CLIA [id number] [address] [facility] [place] [address] [place] Eosinophils/100 WBC (Bld) 0.0 % Normal [facility] Comment on above: Order Comment: Speci men Type: BLOOD SPECIMEN Performed By: #### 5 8410-2 #### [facility] CLIA [id number] [address] [facility] [place] [address] [place] Erythrocyte distribution width (RBC) [Ratio] 13.1 % Normal 11.5-15.0 [facility] Comment on above: Order Comment: Speci men Type: BLOOD SPECIMEN Performed By: #### 5 8410-2 #### [facility] CLIA [id number] [address] [facility] [place] [address] [place] Hematocrit (Bld) [Volume fraction] 41.3 % Normal 36.0-46.0 [facility] Comment on above: Order Comment: Speci men Type: BLOOD SPECIMEN Performed By: #### 5 8410-2 #### [facility] CLIA [id number] [address] [facility] [place] [address] [place] Hemoglobin (Bld) [Mass/Vol] 13.9 g/dL Normal 11.5-15.5 [facility] Comment on above: Order Comment: Speci men Type: BLOOD SPECIMEN Performed By: #### 5 8410-2 #### [facility] CLIA [id number] [address] [place], [place] [address] [place] [address] IMMATURE GRAN % 0.5 % Normal [facility] Comment on above: Order Comment: Speci men Type: BLOOD SPECIMEN Performed By: #### 5 8410-2 #### [facility] CLIA [id number] [address] [place] [address] [facility] IMMATURE GRAN ABS 0.08 k/uL Normal <0.10 [facility] Comment on above: Order Comment: Speci men Type: BLOOD SPECIMEN Performed By: #### 5 8410-2 #### [facility] CLIA [id number] [address] [place] [address] [facility] Lymphocytes (Bld) [#/Vol] 1.25 10*3/uL Normal 1.00-4.00 [facility] Comment on above: Order Comment: Speci men Type: BLOOD SPECIMEN Performed By: #### 5 8410-2 #### [facility] CLIA [id number] [address] [place], [place] [address] [place] [address] Lymphocytes/100 WBC (Bld) 8.5 % Normal [facility] Comment on above: Order Comment: Speci men Type: BLOOD SPECIMEN Performed By: #### 5 8410-2 #### [facility] CLIA [id number] [address] [place] [address] [facility] MCH (RBC) [Entitic mass] 30.8 pg Normal 26.0-34.0 [facility] Comment on above: Order Comment: Speci men Type: BLOOD SPECIMEN Performed By: #### 5 8410-2 #### [facility] CLIA [id number] [address] [place] [address] [place] MCHC (RBC) [Mass/Vol] 33.7 g/dL Normal 30.5-36.0 [facility] Comment on above: Order Comment: Speci men Type: BLOOD SPECIMEN Performed By: #### 5 8410-2 #### [facility] CLIA [id number] [address] [facility] [place] [address] [place] MCV (RBC) [Entitic vol] 91.4 fL Normal 80.0-100.0 [facility] Comment on above: Order Comment: Speci men Type: BLOOD SPECIMEN Performed By: #### 5 8410-2 #### [facility] CLIA [id number] [address] [place] [address] [place] Monocytes (Bld) [#/Vol] 1.42 10*3/uL High <0.87 [facility] Comment on above: Order Comment: Speci men Type: BLOOD SPECIMEN Performed By: #### 5 8410-2 #### [facility] CLIA [id number] [address] [place] [address] [place] Monocytes/100 WBC (Bld) 9.7 % Normal [facility] Comment on above: Order Comment: Speci men Type: BLOOD SPECIMEN Performed By: #### 5 8410-2 #### [facility] CLIA [id number] [address] [place] [address] [place] Neutrophils (Bld) [#/Vol] 11.93 10*3/uL High 1.45-7.50 [facility] Comment on above: Order Comment: Speci men Type: BLOOD SPECIMEN Performed By: #### 5 8410-2 #### [facility] CLIA [id number] [address] [place] [address] [place] Neutrophils/100 WBC (Bld) 81.1 % Normal [facility] Comment on above: Order Comment: Speci men Type: BLOOD SPECIMEN Performed By: #### 5 8410-2 #### [facility] CLIA [id number] [address] [address] [address] [place] [address] [place] Nucleated RBC (Bld) [#/Vol] 10*3/uL Normal <0.01 [facility] Comment on above: Order Comment: Speci men Type: BLOOD SPECIMEN Performed By: #### 5 8410-2 #### [facility] CLIA [id number] [address] [place] [address] [place] Nucleated RBC/100 WBC (Bld) [Ratio] 0.0 /100 WBC Normal 0.0 [facility] Comment on above: Order Comment: Speci men Type: BLOOD SPECIMEN Performed By: #### 5 8410-2 #### [facility] CLIA [id number] [address] [place] [address] [place] Platelet mean volume (Bld) [Entitic vol] 10.1 fL Normal 9.0-12.7 [facility] Comment on above: Order Comment: Speci men Type: BLOOD SPECIMEN Performed By: #### 5 8410-2 #### [facility] CLIA [id number] [address] [place] [address] [place] Platelets (Bld) [#/Vol] 282 10*3/uL Normal 150-400 [facility] Comment on above: Order Comment: Speci men Type: BLOOD SPECIMEN Performed By: #### 5 8410-2 #### [facility] CLIA [id number] [address] [place] [address] [place] RBC (Bld) [#/Vol] 4.52 10*6/uL Normal 3.90-5.20 [facility] Comment on above: Order Comment: Speci men Type: BLOOD SPECIMEN Performed By: #### 5 8410-2 #### [facility] CLIA [id number] [address] [facility] [place] [address] [place] WBC (Bld) [#/Vol] 14.71 10*3/uL High 3.70-11.00 [facility] Comment on above: Order Comment: Speci men Type: BLOOD SPECIMEN Performed By: #### 5 8410-2 #### [facility] CLIA [id number] [address] [place] [address] [place] CK CREATINE KINASEon 11-13-2 020 CK [Catalytic activity/Vol] 1014 U/L High 42-196 [facility] Comment on above: Order Comment: Speci men Type: BLOOD SPECIMEN Performed By: #### 5 8410-2 #### [facility] CLIA [id number] [address] [place] [address] CK [Catalytic activity/Vol] 1157 U/L High 42-196 [facility] Comment on above: Order Comment: Speci men Type: BLOOD SPECIMEN Performed By: #### 5 8410-2 #### [facility] CLIA [id number] [address] [place] [address] CK [Catalytic activity/Vol] 1267 U/L High 42-196 [facility] Comment on above: Order Comment: Speci men Type: BLOOD SPECIMEN Performed By: #### 5 8410-2 #### [facility] CLIA [id number] [address] [place] [address] [place] CK TOTAL AND CK-MBon 020 CK [Catalytic activity/Vol] 1387 U/L High 42-196 [facility] Comment on above: Order Comment: Speci men Type: BLOOD SPECIMEN Performed By: #### C ONABO #### [facility] CLIA [id number] CK.MB [Mass/Vol] 5.9 ng/mL High <4.4 [facility] Comment on above: Order Comment: Speci men Type: BLOOD SPECIMEN Performed By: #### C ONABO #### [facility] CLIA [id number] CK.MB [Ratio] 40 {ratio} Normal 0.0-4.0 [facility] Comment on above: Order Comment: Speci men Type: BLOOD SPECIMEN Performed By: #### C ONABO #### [facility] CLIA [id number] CONFIRM BLOOD TYPEon 020 ABO AB Normal [facility] Comment on above: Order Comment: Speci men Type: BLOOD SPECIMEN Performed By: #### C ONABO #### [facility] CLIA [id number] Rh Nom (Bld) Positive Normal [facility] Comment on above: Order Comment: Speci men Type: BLOOD SPECIMEN Result Comment: SREEDHAR milton eg Performed By: #### C ONABO #### [facility] CLIA [id number] CONSULTon 03-09-2020 CONSULT HNO ID: [id number] Author: Leland Herrera Service: Orthopaedic Surgery Author [...] her, including future surgical plan for functional episcopalian. Anticipate surgery 03/12/2020 depending on ongoing evaluation and recovery. Leland Herrera MD HPI: 74 year old female presented to [facility] as a transfer from [place] for stroke with orthopaedics being consulted for [...] MD Orthopaedic Surgery 03/09/2020 3:55 AM Normal [facility] CONSULT PROGon 03-09-2020 CONSULT PROG HNO ID: [id number] Author: Temitope Moore (Pharmacist) Service: Pharmacy Author [...] [place] any questions[place] [phone]. Age: [age] year old Allergies: ALLERGIES Allergen [...] results found for: GATO MOORE, PHARMACIST Normal [facility] Comp Metab 2000 Pnl SerPlon 03-09-2020 Albumin [Mass/Vol] 4.0 g/dL Normal 3.9-4.9 [facility] Comment on above: Order Comment: Speci men Type: BLOOD SPECIMEN Performed By: #### 2 4321-2 #### [facility] CLIA [id number] [address] [place] [address] ALP [Catalytic activity/Vol] 87 U/L Normal 34-123 [facility] Comment on above: Order Comment: Speci men Type: BLOOD SPECIMEN Performed By: #### 2 4321-2 #### [facility] CLIA [id number] [address] [place] [address] ALT With P-5'-P [Catalytic activity/Vol] 18 U/L Normal 7-38 [facility] Comment on above: Order Comment: Speci men Type: BLOOD SPECIMEN Performed By: #### 2 4321-2 #### [facility] CLIA [id number] [address] [place] [address] AST With P-5'-P [Catalytic activity/Vol] 24 U/L Normal 13-35 [facility] Comment on above: Order Comment: Speci men Type: BLOOD SPECIMEN Performed By: #### 2 4321-2 #### [facility] CLIA [id number] [address] [place] [address] Bilirubin [Mass/Vol] 0.8 mg/dL Normal 0.2-1.3 [facility] Comment on above: Order Comment: Speci men Type: BLOOD SPECIMEN Performed By: #### 2 4321-2 #### [facility] CLIA [id number] [address] [place] [address] Calcium [Mass/Vol] 8.9 mg/dL Normal 8.5-10.2 [facility] Comment on above: Order Comment: Speci men Type: BLOOD SPECIMEN Performed By: #### 2 4321-2 #### [facility] CLIA [id number] [address] [place] [address] CO2 [Moles/Vol] 20 mmol/L Low 22-30 [facility] Comment on above: Order Comment: Speci men Type: BLOOD SPECIMEN Performed By: #### 2 4321-2 #### [facility] CLIA [id number] [address] [place] [address] Potassium [Moles/Vol] 4.2 mmol/L Normal 3.7-5.1 [facility] Comment on above: Order Comment: Speci men Type: BLOOD SPECIMEN Performed By: #### 2 4321-2 #### [facility] CLIA [id number] [address] [place] [address] Protein [Mass/Vol] 7.5 g/dL Normal 6.3-8.0 [facility] Comment on above: Order Comment: Speci men Type: BLOOD SPECIMEN Performed By: #### 2 4321-2 #### [facility] CLIA [id number] [address] [place] [address] Gas + CO Pnl BldVon 03-09-20 20 Base excess Calc (BldV) [Moles/Vol] 0.1 mmol/L Normal 0-2 [facility] Comment on above: Order Comment: Speci men Type: VENOUS BLOOD SPECIMEN Performed By: #### 2 4344-4 ####[facility] [id number] [place] [address] CALCIUM IONIZED, PH CORRECTED 1.23 mmol/L Normal 1.08-1.30 [facility] Comment on above: Order Comment: Speci men Type: VENOUS BLOOD SPECIMEN Performed By: #### 2 4344-4 ####[facility] [id number] [place] [address] Calcium.ionized (BldV) [Mass/Vol] 1.22 mmol/L Normal 1.08-1.30 [facility] Comment on above: Order Comment: Speci men Type: VENOUS BLOOD SPECIMEN Performed By: #### 2 4344-4 ####[facility] [id number] [place] [address] Carboxyhemoglobin (BldV) [Mass fraction] 1.2 % Normal Non Smoker: <2.1, Smoker: 2-8 [facility] Comment on above: Order Comment: Speci men Type: VENOUS BLOOD SPECIMEN Performed By: #### 2 4344-4 ####[facility] [facility] LABORATORYCLIA [id number] [place] [address] CO2 (BldV) [Partial pressure] 38 mm[Hg] Low 42-55 [facility] Comment on above: Order Comment: Speci men Type: VENOUS BLOOD SPECIMEN Performed By: #### 2 4344-4 ####[facility]IA [id number] [place] [address] CO2 [Moles/Vol] 21.4 mmol/L Low 25-29 [facility] Comment on above: Order Comment: Speci men Type: VENOUS BLOOD SPECIMEN Performed By: #### 2 4344-4 ####[facility]ORYCLIA [id number] [place] [address] Glucose [Mass/Vol] 188 mg/dL High 60-105 [facility] Comment on above: Order Comment: Speci men Type: VENOUS BLOOD SPECIMEN Performed By: #### 2 4344-4 ####[facility]ORYCLIA [id number] [place] [address] HCO3 (Bld) [Moles/Vol] 23.9 mmol/L Low 24-28 [facility] Comment on above: Order Comment: Speci men Type: VENOUS BLOOD SPECIMEN Performed By: #### 2 4344-4 ####[facility]ORYCLIA [id number] [place] [address] Hematocrit (Bld) [Volume fraction] 40.5 % Normal 36.0-46.0 [facility] Comment on above: Order Comment: Speci men Type: VENOUS BLOOD SPECIMEN Performed By: #### 2 4344-4 ####[facility]ORYCLIA [id number] [place] [address] Hemoglobin (Bld) [Mass/Vol] 13.2 g/dL Normal 11.5-15.5 [facility] Comment on above: Order Comment: Speci men Type: VENOUS BLOOD SPECIMEN Performed By: #### 2 4344-4 ####[facility]ORYCLIA [id number] [place] [address] Methemoglobin (Bld) [Mass fraction] % Normal 0.0-1.5 [facility] Comment on above: Order Comment: Speci men Type: VENOUS BLOOD SPECIMEN Performed By: #### 2 4344-4 ####[facility]ATORYCLIA [id number] [place] [address] O2 THERAPY NC = Nasal Cannula Normal [facility] Comment on above: Order Comment: Speci men Type: VENOUS BLOOD SPECIMEN Performed By: #### 2 4344-4 ####[facility]ORYCLIA [id number] [place] [address] Oxygen (BldV) [Partial pressure] 36 mm[Hg] Normal 35-45 [facility] Comment on above: Order Comment: Speci men Type: VENOUS BLOOD SPECIMEN Performed By: #### 2 4344-4 ####[facility]ORYCLIA [id number] [place] [address] Oxygen saturation in Blood 65.1 % Normal 60-85 [facility] Comment on above: Order Comment: Speci men Type: VENOUS BLOOD SPECIMEN Performed By: #### 2 4344-4 ####[facility]ORYCLIA [id number] [place] [address] Oxyhemoglobin (BldV) [Mass fraction] 64 % Normal 60-85 [facility] Comment on above: Order Comment: Speci men Type: VENOUS BLOOD SPECIMEN Performed By: #### 2 4344-4 ####[facility]ORYCLIA [id number] [place] [address] pH (BldV) 7.42 [pH] Normal 7.32-7.42 [facility] Comment on above: Order Comment: Speci men Type: VENOUS BLOOD SPECIMEN Performed By: #### 2 4344-4 ####[facility]ORYCLIA [id number] [place] [address] Sodium [Moles/Vol] 140 mmol/L Normal 136-144 [facility] Comment on above: Order Comment: [facility]: [facility]OUS BLOOD SPECIMEN Performed By: #### 2 4344-4 ####[facility]ORATORYCLIA [id number] [place] [address] HGB A1Con 03-09-2020 Average glucose Estimated from glycated hemoglobin mass conc (Bld) 229 mg/dL Normal [facility] Comment on above: Order Comment: [facility] Type: BLOOD SPECIMEN Result Comment: eAG: (Estimated average glucose) is a calculated value from HgbA1c and is rental representative of the average blood glucose level in the last 2-3 month period. Performed By: #### H BA1C ####[facility] LABORATORYCLIA [id number] [place] [address] HbA1c (Bld) [Mass fraction] 9.6 % High 4.3-5.6 [facility] Comment on above: Order Comment: [facility] Type: BLOOD SPECIMEN Result Comment: [facility] Diabetes Association guidelines indicate that patients with HgbA1c in the range 5.7-6.4% are at increased risk for development of diabetes, and intervention by lifestyle modification may be beneficial. HgbA1c greater or equal to 6.5% is considered diagnostic of diabetes. Performed By: #### H BA1C ####[facility] LABORATORYCLIA [id number] [place] [address] HIGH SENSITIVITY TROPONIN To n 03-09-2020 HIGH SENSITIVITY MAXIMILIANO 35 ng/L High <12 [facility] Comment on above: Order Comment: [facility] Type: BLOOD SPECIMEN Result Comment: When [...] MACE. Performed By: #### 5 8410-2 #### [facility] CLIA [id number] [address] [place] [address] HIGH SENSITIVITY MAXIMILIANO 65 ng/L High <12 [facility] Comment on above: Order Comment: Speci [...] value: Performed By: #### H STNT #### [facility] CLIA [id number] [address] [place] [address] HIGH SENSITIVITY MAXIMILIANO 58 ng/L High <12 [facility] Comment on above: Order Comment: Speci [...] value: Performed By: #### 5 8410-2 #### [facility] CLIA [id number] [address] [place] [address] HISTORY PHYSICALon 0 HISTORY PHYSICAL HNO ID: [id number] Author: Akin Schwab Service: Neurology ICU Author [...] and IBS who presents as transfer from [place] with findings of acute R MCA stroke. [...] but no prior deficits. In ED at [place], stroke eval performed with CT findings of R caudate, insula and frontal evolving infarcts. ASPECTS score 5. CTA nondiagnostic as contrast infiltrated in arm and IV access lost during scan. Central line placed at [place] for access. Patient out of window for [...] by XR. Patient subsequently transferred here to [facility]ICU for further stroke workup and [...] -- 03/09/20 0600 activity - mobilize patient (hi,ms) 03/08/20 2215 pneumatic compression stockings ([place], [place]) VTE Prophylaxis: VTE prophylaxis appropriate Critical Care Time Spent: 50 minutes SIGNATURE: Caro Wen PA-C PATIENT NAME: Lisa Shirley DATE: March 09, 2020 TIME: 3:54 AM PAGER/CONTACT #: Attending Note I have personally performed a face to face assessment of the patient and have reviewed the PA/MASTER ELECTRICIAN note. Signature: Akin Schwab, DO Normal [facility] LIPID PANEL BASICon 03-09-20 20 Cholesterol [Mass/Vol] 229 mg/dL High <200 [facility] Comment on above: Order Comment: Speci men Type: BLOOD SPECIMEN Result Comment: <200 mg/dL, Desirable 200-239 mg/dL, Borderline high >239 mg/dL, High Performed By: #### C ONABO #### [facility] CLIA [id number] Cholesterol in HDL [Mass/Vol] 59 mg/dL Normal >39 [facility] Comment on above: Order Comment: Speci men Type: BLOOD SPECIMEN Result Comment: 40-5 9 mg/dL, Acceptable >59 mg/dL, High: Negative risk factor for coronary heart disease <40 mg/dL, Low: Positive risk factor for coronary heart disease Performed By: #### C ONABO #### [facility] CLIA [id number] Cholesterol in LDL [Mass/Vol] 142 mg/dL High <100 [facility] Comment on above: Order Comment: Speci men Type: BLOOD SPECIMEN Result Comment: <100 mg/dL, Optimal 100-129 mg/dL, Near optimal/above optimal 130-159 mg/dL, Borderline high 160-189 mg/dL, High >189 mg/dL, Very high Secondary prevention optimal LDL Cholesterol levels are recommended to be < 70 mg/dL Performed By: #### C ONABO #### [facility] CLIA [id number] Cholesterol in LDL/Cholesterol in HDL [Mass ratio] 2.41 Normal <2.54 [facility] Comment on above: Order Comment: Speci men Type: BLOOD SPECIMEN Result Comment: Refe rence: 1. National Cholesterol Education Program ATP III Guideline At-A-Glance Quick Desk Reference: National Heart, Lung, and Blood [place]. National Institutes of Health. 2001: NIH Publication No. 01-3305. 2. An International Atherosclerosis Society position paper: global recommendations for the management of dyslipidemia: executive summary, Atherosclerosis. 2014: 232(2):410-413. Performed By: #### C ONABO #### [facility] CLIA [id number] Cholesterol in VLDL [Mass/Vol] 28 mg/dL Normal <30 [facility] Comment on above: Order Comment: Speci men Type: BLOOD SPECIMEN Performed By: #### C ONABO #### [facility] CLIA [id number] Cholesterol non HDL [Mass/Vol] 170 mg/dL High <130 [facility] Comment on above: Order Comment: Speci men Type: BLOOD SPECIMEN Result Comment: <130 mg/dL, Optimal 130-159 mg/dL, Near optimal/above optimal 160-189 mg/dL, Borderline high 190-219 mg/dL, High >219 mg/dL, Very high Secondary prevention optimal non HDL Cholesterol levels are recommended to be <100 mg/dL Performed By: #### C ONABO #### [facility] CLIA [id number] Cholesterol.total/Cho lesterol in HDL [Mass ratio] 3.88 {ratio} Normal <5.10 [facility] Comment on above: Order Comment: Speci men Type: BLOOD SPECIMEN Performed By: #### C ONABO #### [facility] CLIA [id number] FASTING TIME 12 hrs Normal [facility] Comment on above: Order Comment: Speci men Type: BLOOD SPECIMEN Performed By: #### C ONABO #### [facility] CLIA [id number] Triglyceride [Mass/Vol] 139 mg/dL Normal <150 [facility] Comment on above: Order Comment: Speci men Type: BLOOD SPECIMEN Result Comment: <150 mg/dL, Normal 150-199 mg/dL, Borderline high 200-499 mg/dL, High >499 mg/dL, Very high Performed By: #### C ONABO #### [facility] CLIA [id number] Lactate Bld-sCncon 0 Lactate [Moles/Vol] 1.8 mmol/L Normal 0.5-2.2 [facility] Comment on above: Order Comment: Speci men Type: BLOOD SPECIMEN Performed By: #### 5 8410-2 #### [facility] CLIA [id number] [address] [place] [address] Lactate [Moles/Vol] 2.0 mmol/L Normal 0.5-2.2 [facility] Comment on above: Order Comment: Speci men Type: BLOOD SPECIMEN Performed By: #### 3 2693-4 ####[facility]ORATORYCLIA [id number] [place] [address] MEDICAL EMERon 03-09-2020 MEDICAL JOSEF HNO ID: [id number] Author: Danuta Pulido (Pa) Service: Neurology ICU Author Type: Physician Load Blocker Type: Chg in Clinical Condition Filed: 03/09/2020 [...] March 09, 2020 6:51 PM 1763 Normal [facility] MRI BRAIN WO IVCONon 020 MRI BRAIN [...] lacunar infarct in the anterior left destiny. Fiberglass Roller: TENISHA Transcribe Date/Time: Mar 10 2020 1:43P Dictated by : GEO CONTEH MD This examination was interpreted and the report reviewed and electronically signed by: GEO CONTEH MD on Mar 10 2020 2:05PM [facility] Magnesium SerPl-mCncon 03-09 Magnesium [Mass/Vol] 1.9 mg/dL Normal 1.7-2.3 [facility] Comment on above: Order Comment: Speci men Type: BLOOD SPECIMEN Performed By: #### C ONABO #### [facility] CLIA [id number] Magnesium [Mass/Vol] 2.0 mg/dL Normal 1.7-2.3 [facility] Comment on above: Order Comment: Speci men Type: BLOOD SPECIMEN Performed By: #### 5 7021-8 #### [facility] CLIA [id number] [address] [place] [address] NURSING PROGon 03-09-2020 NURSING PROG HNO ID: [id number] Author: Bobbi Jean-BaptisteRn) JONNY Landeros Service: Nursing Author Type: Registered Nurse Type: Nursing Progress Note Filed: 03/09/2020 8:02 PM Note Text: Nursing Progress: Topic: RESTRAINT NON-VIOLENT PATIENT NAME: Lisa Shirley PATIENT LOCATION: [place] [address] [address]* The patient demonstrates Attempting to Remove Medical [...] TIME: 8:02 PM Bobbi Landeros RN Normal [facility] NURSING PROG HNO ID: [id number] Author: Sarita Jean-BaptisteRnCesario Escobedo RN Service: ? Author Type: Registered Nurse Type: Nursing Progress Note Filed: 03/09/2020 9:10 AM Note Text: Nursing Progress: Topic: RESTRAINT NON-VIOLENT PATIENT NAME: Lisa Shirley PATIENT LOCATION: [address]* The patient demonstrates Confusion, Attempting to Remove [...] 2020 TIME: 9:10 AM Sarita Escobedo RN [facility] NURSING PROG HNO ID: [id number] Author: Perla Davis RN Service: Nursing Author Type: Registered Nurse Type: Nursing Progress Note Filed: 03/09/2020 1:00 AM Note Text: Nursing Progress: Topic: RESTRAINT NON-VIOLENT PATIENT NAME: Lisa Shirley PATIENT LOCATION: [id number]* The patient demonstrates Confusion, Attempting to Remove [...] 2020 TIME: 12:59 AM Perla Davis RN [facility] NUTRITIONon 03-09-2020 NUTRITION HNO ID: [id number] Author: Ann Friend RD Service: Nutrition Therapy [...] - 90 Grams protein determined by: 1.2-1.5 g/kg;[place] Body Weight Care Plan: Change diet to [...] March 09, 2020 TIME: 11:31 AM PAGER: [phone] [facility] PLAN OF CAREon 03-09-2020 PLAN OF CARE HNO ID: [id number] Author: Quynh Robertson (Pharmacist) Service: Pharmacy Author Type: Pharmacist Type: Plan of Care Filed: 03/09/2020 12:55 PM Note Text: MEDICATION HISTORY AND MEDICATION RECONCILIATION Patient Name:Geoffrey Shirley : 1945 Source of history:Pharmacy records: [facility]; [facility] ([phone]) Medication Nonadherence Identified: No barriers noted The above information represents the best possible medication history: Yes ; unable to verify with patient at this time, no family identified Reconciliation completed? Yes All ROBOTYPE OPERATOR medications addressed by LIP Additional comments: Wdhee-pc-Dunvfpgyk Medication List Adjustments: Medication Regimen Changes: ? [...] Sensitivity - Seroquel [Quetiapin* Intolerance Preferred Pharmacy: [facility] Current ROBOTYPE OPERATOR Medications: Prior to Admission medications as of [...] tablet by mouth once daily. Yes Quynh Robertson Pharmacist March 09, 2020 12:50 PM Normal [facility] PLAN OF CARE HNO ID: [id number] Author: Quynh Robertson (Pharmacist) Service: Pharmacy Author [...] contact pharmacy if questions. Maryellen Sexton Normal [facility] PROCALCITONIN (LAB)on 2019 Procalcitonin [Mass/Vol] 0.24 ng/mL High <0.09 [facility] Comment on above: Order Comment: Speci men Type: BLOOD SPECIMEN Result Comment: For a guided interpretation of test results, please visit the Change in Procalcitonin Calculator, [email or web address]. Performed By: #### P ROCAL ####[facility]ORATORYCLIA [id number] [place] [address] PROGRESSon 03-09-2020 PROGRESS HNO ID: [id number] Author: Shalom (Brea) DO Soraya Service: Neurology [...] in DKA, No LVO, patient admitted to [facility] NICU. Patient also had left trimal [...] Is Patient Clinically Ready to Transfer to [facility] or SDU?: No Discharge Planning: To [...] neuropathy, without long-term current use of insulin ([facility]) 06/04/2016 - Present Current Assessment [...] -- 03/09/20 0600 activity - mobilize patient (hi,ms) 03/08/20 2215 pneumatic compression stockings ([place]) VTE Prophylaxis: VTE prophylaxis appropriate Plan of care discussed with: Provider, RN, Patient SIGNATURE: Shalom Lira DO PATIENT NAME: Lisa Shirley DATE: March 09, 2020 TIME: 2:59 PM Normal [facility] PT Pnl PPPon 03-09-2020 INR Coag (PPP) [Relative time] 1.1 {INR} Normal 0.9-1.3 [facility] Comment on above: Order Comment: Speci men Type: BLOOD SPECIMEN Result Comment: Francia min K Antagonist (VKA) Therapeutic Range: INR 2 to 3 (Target INR of 2.5) Note: For patients treated with VKA drugs, such as warfarin, the [place] [employer] 2012 Guideline recommends [...] GH, et al. Chest 2012, 141:7S-47S Caro RA et al. [facility] 2017, 70: 252-289 Performed By: #### 3 4528-0, 11281-9 ####[facility]ORATORYCLIA [id number] [place] [address] PT Coag (PPP) [Time] 10.9 s Normal 9.7-13.0 [facility] Comment on above: Order Comment: Ginai danilo Type: BLOOD SPECIMEN Performed By: #### 3 4528-0, 63265-8 ####[facility]ORATORYCLIA [id number] [place] [address] Phosphate SerPl-mCncon 03-09 Phosphate [Mass/Vol] 2.7 mg/dL Normal 2.7-4.8 [facility] Comment on above: Order Comment: Speci men Type: BLOOD SPECIMEN Performed By: #### 5 8410-2 #### [facility] CLIA [id number] [address] [place] [address] Phosphate [Mass/Vol] 3.5 mg/dL Normal 2.7-4.8 [facility] Comment on above: Order Comment: Speci men Type: BLOOD SPECIMEN Performed By: #### 5 7021-8 #### [facility] CLIA [id number] [address] [place] [address] STAPH AUREUS PCRon 0 Staphylococcus aureus and Methicillin-resistant Staphylococcus aureus panel - Nose by SHLOMO with probe detection Normal Negative [facility] Comment on above: Order Comment: Speci men Type: SWAB OF INTERNAL NOSE Result Comment: Nega tive for Staphylococcus aureus by PCR. Negative for MRSA by PCR Performed By: #### S APCR #### [facility] CLIA [id number] [address] [place] [address] THERAPY NTon 03-09-2020 THERAPY NT HNO ID: [id number] Author: Osmar (Ccc-Paddle Dyeing Machine Operator) Elli CCC/HIGHWAY ADMINISTRATIVE ENGINEER Service: Speech/Swallow Author Type: Speech Language Pathologist Type: Therapy (PT/OT/Speech/Resp) Filed: 03/09/2020 2:05 PM Note Text: Speech Therapy Speech Evaluation Clinical Swallow Evaluation SERVICE DATE: 03/09/2020 SERVICE TIME: 1315 to 1345 ROOM: [place] [address] IMPRESSION: Patient demonstrates oropharyngeal dysphagia which is [...] stress, sleep disorder, Stroke, DM Continue skilled HIGHWAY ADMINISTRATIVE ENGINEER services due to : Dysphagia, Communication difficulties, [...] 0, Mildly Thick Liquids IDDSI Level 2 ([place] Thick), Puree Compensatory Strategies Utilized During Assessment: [...] cerebral infarction Interventions Provided: Speech Language Eval (78569);Clinical Swallow Evaluation (28159) $ Speech Language Eval (44771) Billed Units: 1 unit $ Clinical Swallow Evaluation (40024) Billed Units: 1 unit Total Treatment Time (minutes): 30 Home Environment Prior Functional Level: Within Functional Limits Assistance Available: typecasting machine operator Prior Swallowing Function/Diet Textures: Regular Consistency;Thin Liquids IDDSI Level 0 Please see discipline specific clinical documentation flowsheet for complete details for this therapy evaluation/treatment. SIGNATURE: Osmar Calloway CCC-HIGHWAY ADMINISTRATIVE ENGINEER PATIENT NAME: Lisa Shirley DATE: March 09, 2020 TIME: 2:00 PM Normal [facility] THERAPY NT HNO ID: [id number] Author: Tahmina (Pt) Mary Service: Physical Therapy Author Type: Physical Therapist Type: Therapy (PT/OT/Speech/Resp) Filed: 03/09/2020 9:05 AM Note Text: PHYSICAL THERAPY MISSED VISIT SERVICE DATE: 03/09/2020 SERVICE TIME: 903 to 903 ROOM: [place] [address] Attempted Evaluation. Patient not seen due to Illness. Hold today per JONNY Sanhdu. Will continue to follow patient as able. SIGNATURE: Tahmina Hernandez, PT PATIENT NAME: Lisa Shirley DATE: March 09, 2020 TIME: 9:04 AM Normal [facility] TYPE AND SCREENon 03-09-2020 ABO AB Normal [facility] Comment on above: Order Comment: Speci men Type: SWAB OF INTERNAL NOSE Performed By: #### S APCR #### [facility] CLIA [id number] [address] [place] [address] HISTORICAL AB SCR STATUS Negative Normal [facility] Comment on above: Order Comment: Speci men Type: SWAB OF INTERNAL NOSE Performed By: #### S APCR #### [facility] CLIA [id number] [address] [place] [address] Rh Nom (Bld) Positive Normal [facility] Comment on above: Order Comment: Speci men Type: SWAB OF INTERNAL NOSE Performed By: #### S APCR #### [facility] CLIA [id number] [address] [place] [address] TYPE AND SCREEN EXPIRATION 03/11/2020 23:59 Normal [facility] Comment on above: Order Comment: Speci men Type: SWAB OF INTERNAL NOSE Performed By: #### S APCR #### [facility] CLIA [id number] [address] [place] [address] UA WITH CULTURE IF INDICATED on 03-09-2020 Bacteria LM.HPF (Urine sed) [#/Area] None Seen Normal None Seen [facility] Comment on above: Order Comment: Speci men Type: URINE SPECIMEN Performed By: #### U ACII ####[facility] [id number] [place] [address] Bilirubin Ql (U) Negative Normal Negative [facility] Comment on above: Order Comment: Speci men Type: URINE SPECIMEN Performed By: #### U ACII ####[facility]ORYCLIA [id number] [place] [address] Clarity (Unsp spec) Clear Normal Clear [facility] Comment on above: Order Comment: Speci men Type: URINE SPECIMEN Performed By: #### U ACII ####[facility]ORYCLIA [id number] [place] [address] Color (U) Yellow Normal Yellow [facility] Comment on above: Order Comment: Speci men Type: URINE SPECIMEN Performed By: #### U ACII ####[facility]ORYCLIA [id number] [place] [address] Epithelial cells LM.HPF (Urine sed) [#/Area] 1.1 /[HPF] Normal [facility] Comment on above: Order Comment: Speci men Type: URINE SPECIMEN Performed By: #### U ACII ####[facility]ORYCLIA [id number] [place] [address] Glucose Test strip (U) [Mass/Vol] >=1000 mg/dL Abnormal Negative [facility] Comment on above: Order Comment: Speci men Type: URINE SPECIMEN Performed By: #### U ACII ####[facility] [id number] [place] [address] Hemoglobin Ql (U) Large Abnormal Negative [facility] Comment on above: Order Comment: Speci men Type: URINE SPECIMEN Performed By: #### U ACII ####[facility]CLIA [id number] [place] [address] Hyaline casts (Urine sed) [#/Area] 4-10 /LPF Abnormal 0 /LPF [facility] Comment on above: Order Comment: Speci men Type: URINE SPECIMEN Performed By: #### U ACII ####[facility]CLIA [id number] [place] [address] Ketones Ql (U) 40 mg/dL Abnormal Negative [facility] Comment on above: Order Comment: Speci men Type: URINE SPECIMEN Performed By: #### U ACII ####[facility]IA [id number] [place] [address] Leukocyte esterase Test strip Ql (U) Negative Normal Negative [facility] Comment on above: Order Comment: Speci men Type: URINE SPECIMEN Performed By: #### U ACII ####[facility]IA [id number] [place] [address] Nitrite Ql (U) Negative Normal Negative [facility] Comment on above: Order Comment: Speci men Type: URINE SPECIMEN Performed By: #### U ACII ####[facility]IA [id number] [place] [address] pH (U) 5.5 [pH] Normal 5.0-8.0 [facility] Comment on above: Order Comment: Speci men Type: URINE SPECIMEN Performed By: #### U ACII ####[facility] [id number] [place] [address] Protein (U) [Mass/Vol] 100 mg/dL Abnormal Negative [facility] Comment on above: Order Comment: Speci men Type: URINE SPECIMEN Performed By: #### U ACII ####[facility] [id number] [place] [address] RBC LM.HPF (Urine sed) [#/Area] 11-25 /HPF Abnormal 0-3 /HPF [facility] Comment on above: Order Comment: Speci men Type: URINE SPECIMEN Performed By: #### U ACII ####[facility]ORYCLIA [id number] [place] [address] Specific gravity (U) [Rel density] 1.045 High 1.005-1.03 0 [facility] Comment on above: Order Comment: Speci men Type: URINE SPECIMEN Performed By: #### U ACII ####[facility]ORYCLIA [id number] [place] [address] Urobilinogen Test strip Ql (U) 0.2 EU/dL Normal 0.2-1.0 EU/dL [facility] Comment on above: Order Comment: Speci men Type: URINE SPECIMEN Performed By: #### U ACII ####[facility]ORYCLIA [id number] [place] [address] WBC LM.HPF (Urine sed) [#/Area] 0-5 /HPF Normal 0-5 /HPF [facility] Comment on above: Order Comment: Speci men Type: URINE SPECIMEN Performed By: #### U ACII ####[facility]IA [id number] [place] [address] XR ABDOMEN 1V SUPINEon 03-09 XR ABDOMEN [...] expected location of the body the stomach. Fiberglass Roller: TENISHA Transcribe Date/Time: Mar 09 2020 2:38P Dictated by : MAITE STRINGER MD This examination was interpreted and the report reviewed and electronically signed by: MAITE STRINGER MD on Mar 09 2020 2:39PM EST Normal [facility] XR ABDOMEN 1V SUPINE Final Report DATE [...] the distal esophagus. This should be advanced. Fiberglass Roller: TENISHA Transcribe Date/Time: Mar 09 2020 2:39P Dictated by : MAITE STRINGER MD This examination was interpreted and the report reviewed and electronically signed by: MAITE STRINGER MD on Mar 09 2020 2:41PM EST Normal [facility] XR ANKLE 3V AP/LAT/OBL LTon 03-09-2020 XR [...] Closed reduction and cast placement as above Fiberglass Roller: TENISHA Transcribe Date/Time: Mar 09 2020 1:45A Dictated by : MYLES COX MD This examination was interpreted and the report reviewed and electronically signed by: MYLES COX MD on Mar 09 2020 2:19AM EST Normal [facility] XR ANKLE 3V AP/LAT/OBL LT Final [...] no significant changes compared the prior study. Fiberglass Roller: [facility] Transcribe Date/Time: Mar 09 2020 12:18A Dictated by : MYLES COX MD This examination was interpreted and the report reviewed and electronically signed by: MYLES COX MD on Mar 09 2020 12:19AM EST Normal [facility] XR ANKLE SPECIFY 1V LTon XR ANKLE [...] Near anatomic alignment of the tibiotalar joint Fiberglass Roller: [facility] Transcribe Date/Time: Mar 09 2020 4:41A Dictated by : TOSIN CLARK MD This examination was interpreted and the report reviewed and electronically signed by: TOSIN CLARK MD on Mar 09 2020 4:44AM EST Normal [facility] XR CHEST 1V FRONTAL PORTon 1 05-09-2019 [...] adverse interval change compared the prior study. Fiberglass Roller: PSCB Transcribe Date/Time: Mar 08 2020 11:04P Dictated by : MYLES COX MD This examination was interpreted and the report reviewed and electronically signed by: MYLES COX MD on Mar 08 2020 11:04PM EST Normal [facility] aPTT PPPon 03-09-2020 aPTT Coag (PPP) [Time] 23.7 s Normal 23.0-32.4 [facility] Comment on above: Order Comment: Speci men Type: BLOOD SPECIMEN Performed By: #### 3 4528-0, 49349-8 ####[facility]ORYCLIA [id number] [place] [address] 2018 CORONAVIRUSon 0 2019 CORONAVIRUS COVID 19 SOURCE ENGRAVER TENDER: UPPER RESPIRATORY TRACT SWAB Called to and read back by: Luis Landeros RN [facility] 03/10/2020 0059 by Ajay Márquez. COVID 19 RESULT ENGRAVER TENDER: Positive for COVID19 (SARS CoV2) by PCR.(*) This test was developed and its performance characteristics determined by [facility] [place]. This test has been authorized by FDA under an Emergency Use Authorization (EUA). This test has been validated in accordance with the FDA's Guidance Document "Policy for Diagnostics Testing in Laboratories Certified to Perform High Complexity Testing under CLIA prior to Emergency use Authorization for Coronavirus Disease 2019 during the Public Health Emergency" issued on June 25, 2019. Normal [facility] Comment on above: Performed By: #### 5 8410-2 #### [facility] CLIA [id number] [address] [place] [address] [place] Bas Metab 2000 Pnl SerPlon 1 05-08-2019 Anion gap [Moles/Vol] 21 mmol/L High 9-18 [facility] Comment on above: Order Comment: Speci men Type: BLOOD SPECIMEN Performed By: #### 2 4321-2 #### [facility] CLIA [id number] [address] [place] [address] Calcium [Mass/Vol] 9.8 mg/dL Normal 8.5-10.2 [facility] Comment on above: Order Comment: Speci men Type: BLOOD SPECIMEN Performed By: #### 2 4321-2 #### [facility] CLIA [id number] [address] [place] [address] Chloride [Moles/Vol] 94 mmol/L Low 97-105 [facility] Comment on above: Order Comment: Speci men Type: BLOOD SPECIMEN Performed By: #### 2 4321-2 #### [facility] CLIA [id number] [address] [place] [address] CO2 [Moles/Vol] 19 mmol/L Low 22-30 [facility] Comment on above: Order Comment: Speci men Type: BLOOD SPECIMEN Performed By: #### 2 4321-2 #### [facility] CLIA [id number] [address] [place] [address] Creatinine [Mass/Vol] 1.30 mg/dL High 0.58-0.96 [facility] Comment on above: Order Comment: Speci men Type: BLOOD SPECIMEN Performed By: #### 2 4321-2 #### [facility] CLIA [id number] [address] [place] [address] GFR/1.73 sq M predicted among blacks MDRD (S/P/Bld) [Vol rate/Area] 49 mL/min/{1.73_m2} Normal [facility] Comment on above: Order Comment: Speci men Type: BLOOD SPECIMEN Performed By: #### 2 4321-2 #### [facility] CLIA [id number] [address] [place] [address] GFR/1.73 sq M predicted among non-blacks MDRD (S/P/Bld) [Vol rate/Area] 40 mL/min/{1.73_m2} Normal [facility] Comment on above: Order Comment: Speci [...] GFR. Performed By: #### 2 4321-2 #### [facility] CLIA [id number] [address] [place] [address] Glucose [Mass/Vol] 509 mg/dL High 74-99 [facility] Comment on above: Order Comment: Speci men Type: BLOOD SPECIMEN Result Comment: The [place] Diabetes [employer] (ADA) provides guidance for cutoff [...] Standards of Medical Care in Diabetes 2016, [place] [employer]. Diabetes Care. 2016.39(Suppl 1). Urgent value: Performed By: #### 2 4321-2 #### [facility] CLIA [id number] [address] [place] [address] Potassium [Moles/Vol] 4.5 mmol/L Normal 3.7-5.1 [facility] Comment on above: Order Comment: Speci men Type: BLOOD SPECIMEN Performed By: #### 2 4321-2 #### [facility] CLIA [id number] [address] [place] [address] Sodium [Moles/Vol] 134 mmol/L Low 136-144 [facility] Comment on above: Order Comment: Speci men Type: BLOOD SPECIMEN Performed By: #### 2 4321-2 #### [facility] CLIA [id number] [address] [place] [address] Urea nitrogen [Mass/Vol] 24 mg/dL High 7-21 [facility] Comment on above: Order Comment: Speci men Type: BLOOD SPECIMEN Performed By: #### 2 4321-2 #### [facility] CLIA [id number] [address] [place] [address] CBC (hemogram) Bld Autoon Erythrocyte distribution width (RBC) [Ratio] 13.0 % Normal 11.5-15.0 [facility] Comment on above: Order Comment: Speci men Type: BLOOD SPECIMEN Performed By: #### 5 8410-2 #### [facility] [place] [facility] CLIA [id number] [address] [place] [address] [place] Hematocrit (Bld) [Volume fraction] 42.5 % Normal 36.0-46.0 [facility] Comment on above: Order Comment: Speci men Type: BLOOD SPECIMEN Performed By: #### 5 8410-2 #### [facility] [place] [facility] CLIA [id number] [address] [place] [address] [place] Hemoglobin (Bld) [Mass/Vol] 14.1 g/dL Normal 11.5-15.5 [facility] Comment on above: Order Comment: Speci men Type: BLOOD SPECIMEN Performed By: #### 5 8410-2 #### [facility] [place] [facility] CLIA [id number] [address] [place] [address] [place] MCH (RBC) [Entitic mass] 30.5 pg Normal 26.0-34.0 [facility] Comment on above: Order Comment: Speci men Type: BLOOD SPECIMEN Performed By: #### 5 8410-2 #### [facility] [place] [facility] CLIA [id number] [address] [place] [address] [facility] [place] MCHC (RBC) [Mass/Vol] 33.2 g/dL Normal 30.5-36.0 [facility] Comment on above: Order Comment: Speci men Type: BLOOD SPECIMEN Performed By: #### 5 8410-2 #### [facility] [place] [facility] CLIA [id number] [address] [place] [address] [place] MCV (RBC) [Entitic vol] 91.8 fL Normal 80.0-100.0 [facility] Comment on above: Order Comment: Speci men Type: BLOOD SPECIMEN Performed By: #### 5 8410-2 #### [facility] [place] [facility] CLIA [id number] [address] [place] [address] [place] Platelet mean volume (Bld) [Entitic vol] 10.3 fL Normal 9.0-12.7 [facility] Comment on above: Order Comment: Speci men Type: BLOOD SPECIMEN Performed By: #### 5 8410-2 #### [facility] [place] [facility] CLIA [id number] [address] [place] [address] [place] Platelets (Bld) [#/Vol] 276 10*3/uL Normal 150-400 [facility] Comment on above: Order Comment: Speci men Type: BLOOD SPECIMEN Performed By: #### 5 8410-2 #### [facility] [place] [facility] CLIA [id number] [address] [place] [address] [place] RBC (Bld) [#/Vol] 4.63 10*6/uL Normal 3.90-5.20 [facility] Comment on above: Order Comment: Speci men Type: BLOOD SPECIMEN Performed By: #### 5 8410-2 #### [facility] [place] [facility] CLIA [id number] [address] [place] [address] [place] WBC (Bld) [#/Vol] 13.06 10*3/uL High 3.70-11.00 [facility] Comment on above: Order Comment: Speci men Type: BLOOD SPECIMEN Performed By: #### 5 8410-2 #### [facility] [place] [facility] CLIA [id number] [address] [place] [address] [place] CK CREATINE KINASEon 020 CK [Catalytic activity/Vol] 1111 U/L High 42-196 [facility] Comment on above: Order Comment: Speci men Type: BLOOD SPECIMEN Performed By: #### 2 4321-2 #### [facility] CLIA [id number] [address] [place] [address] CT BRAIN WO IVCONon 03-08-[address] BRAIN WO IVCON Final Report DATE OF EXAM: Mar 08 2020 2:02PM [facility] 0504 - CT BRAIN WO [...] reduction techniques were required COMPARISON: 11/21/2017. RESULT: Communications Consultant (topogram) images: No additional findings. Post-operative change: [...] with Dr. Thurston at 2:24pm on 03/08/2020. Fiberglass Roller: TENISHA Transcribe Date/Time: Mar 08 2020 2:18P Dictated by : CLEVE SHERIFF MD This examination was interpreted and the report reviewed and electronically signed by: CLEVE SHERIFF MD on Mar 08 2020 2:29PM EST Normal [facility] CT CERVICAL SPINE WO IVCONon 03-08-2020 CT CERVICAL SPINE WO IVCON Final Report DATE OF EXAM: Mar 08 2020 3:36PM [facility] 0505 - CT CERVICAL SPINE [...] Counting reference: Craniocervical junction. Anatomic Variants: None. Communications Consultant (topogram) images: Unremarkable. Alignment: Alignment is within [...] vertebrae with counting from the craniocervical junction. Fiberglass Roller: TENISHA Transcribe Date/Time: Mar 08 2020 3:38P Dictated by : GEO CONTEH MD This examination was interpreted and the report reviewed and electronically signed by: GEO CONTEH MD on Mar 08 2020 3:55PM EST Normal [facility] CTA HEAD W IVCONon 0 CTA HEAD W IVCON Final Report DATE OF EXAM: Mar 08 2020 6:52PM [facility] 0022 - CTA HEAD W [...] is negligible contrast enhancement on this exam. Fiberglass Roller: TENISHA Transcribe Date/Time: Mar 08 2020 7:19P Dictated by : CHARLES FAY MD This examination was interpreted and the report reviewed and electronically signed by: CHARLES FAY MD on Mar 08 2020 7:29PM EST Normal [facility] CTA NECK W IVCONon 0 CTA NECK W IVCON Final Report DATE OF EXAM: Mar 08 2020 6:52PM [facility] 0024 - CTA NECK W [...] is negligible contrast enhancement on this exam. Fiberglass Roller: TENISHA Transcribe Date/Time: Mar 08 2020 7:19P Dictated by : CHARLES FAY MD This examination was interpreted and the report reviewed and electronically signed by: CHARLES FAY MD on Mar 08 2020 7:29PM EST Normal [facility] Gas + CO Pnl BldVon 03-08-20 20 BASE DEFICIT, VENOUS -3.9 mmol/L Low -2-0 [facility] Comment on above: Order Comment: Speci men Type: BLOOD SPECIMEN Performed By: #### 5 8410-2 #### [facility] CLIA [id number] [address] [place] [address] Carboxyhemoglobin (BldV) [Mass fraction] 1.2 % Normal Non Smoker: <2.1, Smoker: 2-8 [facility] Comment on above: Order Comment: Speci men Type: BLOOD SPECIMEN Performed By: #### 5 8410-2 #### [facility] CLIA [id number] [address] [place] [address] CO2 [Moles/Vol] 22.0 mmol/L Low 25-29 [facility] Comment on above: Order Comment: Speci men Type: BLOOD SPECIMEN Performed By: #### 5 8410-2 #### [facility] CLIA [id number] [address] [place] [address] CO2 adjusted to patient's actual temperature (BldV) [Partial pressure] 41 mmHg Low 42-55 [facility] Comment on above: Order Comment: Speci men Type: BLOOD SPECIMEN Performed By: #### 5 8410-2 #### [facility] CLIA [id number] [address] [place] [address] FIO2 21 % Normal [facility] Comment on above: Order Comment: Speci men Type: BLOOD SPECIMEN Performed By: #### 5 8410-2 #### [facility] CLIA [id number] [address] [place] [address] HCO3 (Bld) [Moles/Vol] 20.8 mmol/L Low 24-28 [facility] Comment on above: Order Comment: Speci men Type: BLOOD SPECIMEN Performed By: #### 5 8410-2 #### [facility] CLIA [id number] [address] [place] [address] Hemoglobin (Bld) [Mass/Vol] 14.6 g/dL Normal 11.5-15.5 [facility] Comment on above: Order Comment: Speci men Type: BLOOD SPECIMEN Performed By: #### 5 8410-2 #### [facility] CLIA [id number] [address] [place] [address] Methemoglobin (Bld) [Mass fraction] 0.3 % Normal 0.0-1.5 [facility] Comment on above: Order Comment: Speci men Type: BLOOD SPECIMEN Performed By: #### 5 8410-2 #### [facility] CLIA [id number] [address] [place] [address] O2 THERAPY NC = Nasal Cannula Normal [facility] Comment on above: Order Comment: Speci men Type: BLOOD SPECIMEN Performed By: #### 5 8410-2 #### [facility] CLIA [id number] [address] [place] [address] Oxygen adjusted to patient's actual temperature (BldV) [Partial pressure] 40 mmHg Normal 35-45 [facility] Comment on above: Order Comment: Speci men Type: BLOOD SPECIMEN Performed By: #### 5 8410-2 #### [facility] CLIA [id number] [address] [place] [id number] Oxygen saturation in Blood 44.8 % Low 60-85 [facility] Comment on above: Order Comment: Speci men Type: BLOOD SPECIMEN Performed By: #### 5 8410-2 #### [facility] CLIA [id number] [address] [place] [address] Oxyhemoglobin (BldV) [Mass fraction] 44 % Low 60-85 [facility] Comment on above: Order Comment: Speci men Type: BLOOD SPECIMEN Performed By: #### 5 8410-2 #### [facility] CLIA [id number] [address] [place] [address] pH adjusted to patient's actual temperature (BldV) 7.33 Normal 7.32-7.42 [facility] Comment on above: Order Comment: Speci men Type: BLOOD SPECIMEN Performed By: #### 5 8410-2 #### [facility] CLIA [id number] [address] [place] [address] HIGH SENSITIVITY TROPONIN To n 03-08-2020 HIGH SENSITIVITY MAXIMILIANO 39 ng/L High <12 [facility] Comment on above: Order Comment: Speci [...] MACE. Performed By: #### 5 8410-2 #### [facility] CLIA [id number] [address] [place] [address] HIGH SENSITIVITY MAXIMILIANO 41 ng/L High <12 [facility] Comment on above: Order Comment: Speci [...] MACE. Performed By: #### 5 8410-2 #### [facility] [id number] [address] [place] [address] HOSPon 03-08-2020 HOSP Patient:Ryanne [place] MRN: Height:5' [...] lispro pen (rapid acting) (HumaLOG KWIKPEN) pill concrete boom operator (patient-specific) ondansetron 4 mg tab(s) (ZOFRAN) [...] Recurrent major depressive disorder, in partial remission ([facility]) [F33.41] Vitamin D deficiency [E55.9] GERD without esophagitis [K21.9] Coronary artery disease involving [place] coronary artery of [place] heart without angina pectoris [I25.10] Other constipation [K59.09] Acute right MCA stroke ([facility]) [I63.511] Acute kidney injury superimposed on chronic [...] agent prior to admission: No Premorbid Modified Oberlin Score: 0=0 - No symptoms at all Baseline Functional Status (i.e. ADL's, Ambulatory Status, Cognitive Issues): Lives alone, ambulatory at baseline, AANDOx3. Subjective HPI: Patient is a 74 year old female with past medical history significant for DM type II, HTN, CKD stage 3, HLD, SEE, major depressive disorder, GERD, Insomnia, and IBS who presents as transfer from [place] with findings of acute R MCA stroke. [...] but no prior deficits. In ED at [place], stroke eval performed with CT findings of R caudate, insula and frontal evolving infarcts. ASPECTS score 5. CTA nondiagnostic as contrast infiltrated in arm and IV access lost during scan. Central line placed at [place] for access. Patient out of window for [...] by XR. Patient subsequently transferred here to [facility] for further stroke workup and [...] -- 03/09/20 0600 activity - mobilize patient ([place], [place]) 03/08/20 2215 pneumatic compression stockings ([place], [place]) VTE Prophylaxis: VTE prophylaxis appropriate Critical Care Time Spent: 50 minutes SIGNATURE: Caro Wen PA-C PATIENT NAME: Lisa [place] DATE: March 09, 2020 TIME: 3:54 AM PAGER/CONTACT #: Attending Note I have personally performed a face to face assessment of the patient and have reviewed the PA/MASTER ELECTRICIAN note. Signature: Akin Schwab, Previous Version Caro Wen PA-C 03/08/2020 11:59 PM Edited Patient is a 74 year old female with past medical history significant for DM type II, HTN, CKD stage 3, HLD, SEE, major depressive disorder, GERD, Insomnia, and IBS who presents as transfer from [place] with findings of acute R MCA stroke. [...] but no prior deficits. In ED at [place], stroke eval performed with CT findings of R caudate, insula and frontal evolving infarcts. ASPECTS score 5. CTA nondiagnostic as contrast infiltrated in arm and IV access lost during scan. Central line placed at [place] for access. Patient out of window for [...] by XR. Patient subsequently transferred here to [facility] for further stroke workup and management. Previous Version Caro Wen PA-C 03/09/2020 12:06 AM Written NEUROLOGICAL INTENSIVE CARE UNIT HISTORY AND PHYSICAL (STROKE CARE PATH) REASON FOR STROKE EVALUATION: Left Sided Weakness, Dysarthria and Facial droop REASON FOR NEUROLOGICAL ICU ADMISSION: Acute R MCA stroke Stroke Mechanism: METRICS: Initial NIHSS Score: 20 [place] Coma Scale Totals (Calculated): 14 Date Patient [...] and IBS who presents as transfer from [place] with findings of acute R MCA stroke. [...] but no prior deficits. In ED at [place], stroke eval performed with CT findings of R caudate, insula and frontal evolving infarcts. ASPECTS score 5. CTA nondiagnostic as contrast infiltrated in arm and IV access lost during scan. Central line placed at [place] for access. Patient out of window for [...] by XR. Patient subsequently transferred here to [facility] for further stroke workup and [...] family with Staff Physician, Dr. Schwab. RT Woodruff Tech 03/08/2020 11:46 PM Signed Radiology Service [...] NON-VIOLENT PATIENT NAME: Lisa [place] PATIENT LOCATION: [id number]/[place] [address]* The patient demonstrates Confusion, Attempting to Remove [...] 2020 TIME: 12:59 AM JONNY Abdi RT, [facility] 03/09/2020 1:06 AM Signed Radiology Service Progress [...] have any questions[place] [phone]. Age: [age] year old Allergies: ALLERGIES Allergen [...] No results found for: GATO MOORE, PHARMACIST Caor Wen PA-C 03/09/2020 3:44 AM Edited Assessment: [...] her, including future surgical plan for functional episcopalian. Anticipate surgery 03/12/2020 depending on ongoing evaluation and recovery. Leland Herrera MD HPI: 74 year old female presented to [facility] as a transfer from [place] for stroke with orthopaedics being consulted for [...] - COLONOSCOPY usually had some polyps 2008 Allergies: Sofia Inhibitors, Actos [Pioglitazone], Buspar [Buspirone], [...] 3:55 AM Previous Version Xi Chahal RT, [employer] 03/09/2020 4:59 AM Signed Radiology Service Progress [...] RT Ranjan March 09, 2020 4:57 AM RT Martha, Tech 03/09/2020 6:38 AM Signed Called for MRI screening form. Tahmina Hernandez, PT 03/09/2020 9:05 AM Signed PHYSICAL THERAPY MISSED VISIT SERVICE DATE: 03/09/2020 SERVICE TIME: 903 to 903 ROOM: [place] [address] Attempted Evaluation. Patient not seen due to Illness. Hold today per JONNY Sandhu. Will continue to follow patient as able. SIGNATURE: Tahmina Hernandez PT PATIENT NAME: Lisa [place] DATE: March 09, 2020 TIME: 9:04 AM Sarita Escobedo RN, RN 03/09/2020 9:10 AM Signed Nursing Progress: Topic: RESTRAINT NON-VIOLENT PATIENT NAME: Lisa [place] PATIENT LOCATION: [place] [address]/[place] [address]* The patient demonstrates Confusion, Attempting to Remove [...] - 90 Grams protein determined by: 1.2-1.5 g/kg;[place] Body Weight Care Plan: Change diet to [...] March 09, 2020 TIME: 11:31 AM PAGER: [phone] Quynh Robertson, Pharmacist 03/09/2020 12:55 PM Signed MEDICATION HISTORY AND MEDICATION RECONCILIATION Patient Name:Geoffrey [place] : 1945 Source of history:Pharmacy records: [facility]; [facility] ([phone]) Medication Nonadherence Identified: No barriers noted The above information represents the best possible medication history: Yes ; unable to verify with patient at this time, no family identified Reconciliation completed? Yes All ROBOTYPE OPERATOR medications addressed by LIP Additional comments: Cnzcg-xu-Bdsyastog Medication List Adjustments: Medication Regimen Changes: ? [...] Sensitivity - Seroquel [Quetiapin* Intolerance Preferred Pharmacy: [facility] Current ROBOTYPE OPERATOR Medications: Prior to Admission medications as of [...] March 09, 2020 12:50 PM Osmar Calloway, CCC-HIGHWAY ADMINISTRATIVE ENGINEER, CCC/HIGHWAY ADMINISTRATIVE ENGINEER 03/09/2020 2:05 PM Signed Speech Therapy Speech Evaluation Clinical Swallow Evaluation SERVICE DATE: 03/09/2020 SERVICE TIME: 1315 to 1345 ROOM: [place] [address] IMPRESSION: Patient demonstrates oropharyngeal dysphagia which is [...] stress, sleep disorder, Stroke, DM Continue skilled HIGHWAY ADMINISTRATIVE ENGINEER services due to : Dysphagia, Communication difficulties, [...] 0, Mildly Thick Liquids IDDSI Level 2 ([place] Thick), Puree Compensatory Strategies Utilized During Assessment: [...] cerebral infarction Interventions Provided: Speech Language Eval (16963);Clinical Swallow Evaluation (43516) $ Speech Language Eval (32254) Billed Units: 1 unit $ Clinical Swallow Evaluation (66724) Billed Units: 1 unit Total Treatment Time (minutes): 30 Home Environment Prior Functional Level: Within Functional Limits Assistance Available: typecasting machine operator Prior Swallowing Function/Diet Textures: Regular Consistency;Thin Liquids IDDSI Level 0 Please see discipline specific clinical documentation flowsheet for complete details for this therapy evaluation/treatment. SIGNATURE: Osmar Calloway CCC-HIGHWAY ADMINISTRATIVE ENGINEER PATIENT NAME: Lisa [place] DATE: March 09, [...] in DKA, No LVO, patient admitted to [facility]ICU. Patient also had left trimal [...] in DKA, No LVO, patient admitted to [facility]ICU. Patient also had left trimal [...] Is Patient Clinically Ready to Transfer to RNF or SDU?: No Discharge Planning: To be [...] PT/OT/ST - Stroke neuro c/s Shalom Lira [place] 03/09/2020 2:54 PM Written Assessment: S/p fall at home w/ prolonged downtime. CK 1,111 at OSH, Troponin elevation PLAN: - IVF resuscitation - Monitor renal function - Fu trop and CK to ensure trending down Shalom Lira DO 03/09/2020 2:55 PM Written Assessment: Glucose >500, ketones >2.00, Anion gap of 21 PLAN: - Insulin gtt transitioned to subcutaneous -Corpak placed on tube feeds - Endo c/s in AM Shalom Lira DO 03/09/2020 2:55 PM Written Assessment: bilateral malleolar fracture PLAN: - s/p reduction and casting -Ortho following Shalom Lira DO 03/09/2020 2:56 PM Written Assessment: 41-->39-->58. Suspect type II, demand ischemia PLAN: - Trend to ensure coming down Shalom Lira DO 03/09/2020 2:59 PM Signed SERVICE DATE: 03/09/2020 SERVICE TIME: 2:59 PM NEURO ICU PROGRESS NOTE DATE OF ADMISSION: 03/08/2020 Subjective Hospital Course: 03/09: Presented from OSH with concern for acute R MCA stroke. Found down at home, elevated CK, patient was in DKA, No LVO, patient admitted to [facility] NICU. Patient also had left trimal [...] Is Patient Clinically Ready to Transfer to [facility] or SDU?: No Discharge Planning: To [...] ?infectous, although possible just inflammatory - dehydration/pain /2 ankle fx, metabolic comorbidities PLAN: - PRN [...] neuropathy, without long-term current use of insulin ([facility]) 06/04/2016 - Present Current Assessment [...] -- 03/09/20 0600 activity - mobilize patient ([place], [place]) 03/08/20 2215 pneumatic compression stockings ([place], [place]) VTE Prophylaxis: VTE prophylaxis appropriate Plan [...] NON-VIOLENT PATIENT NAME: Lisa Shirley PATIENT LOCATION: [place] [address] [address]* The patient demonstrates Attempting to Remove Medical [...] Ortega Seay MD 03/12/2020 10:37 AM Signed [facility] - Consultation PATIENT NAME: LISA SHIRLEY CSN: [id number] DATE OF : 1945 SEX/AGE: F/74 PATIENT TYPE: I HOSP SVC: INTM LOCATION: [id number] DATE OF SERVICE: 03/10/2020 TIME OF SERVICE: 10:10 AM REFERRING PHYSICIAN: ASHLEIGH THURSTON REASON FOR CONSULTATION: Fever, leukocytosis, COVID-19 infection, antibiotic management. HISTORY OF PRESENT ILLNESS: This patient is a 74-year-old woman with multiple medical problems including diabetes mellitus type 2, obesity, irritable bowel syndrome, previous stroke. She is confused and the history is obtained from reviewing the chart. She apparently presented to [facility] with an acute right MCA stroke. She was found down at home and police did a welfare check and found her down on the ground at home. She is noted to have left ankle bruising and swelling. In the ER at [place], she had a CT of the head [...] was transferred to the Neuro ICU at [facility]. Her initial white blood cell count [...] with you. Ortega Seay MD, MS, FACP, [facility] Infectious Disease RRW:jacklyn /[id number] RT Suha, Tech 03/10/2020 5:10 AM Signed [...] covid results in the computer. According to fast food shift lead report patient was to stay in NSICU. RN questioning need for isolation. Patient was not in isolation upon start of shift. Per nsicu resident okay to place in isolation. -placed in contact/droplet isolation. RN called lab to clarify covid status. Per lab recommends consulting infectious disease to assess. RN updated Dr. Lira and order for ID consult placed. Myriam Lira DO, DO 03/10/2020 11:51 AM Signed NEUROLOGICAL INTENSIVE CARE UNIT TRANSFER NOTE SERVICE DATE: 03/10/2020 SERVICE TIME: 11:46 AM PRIMARY TEAM ACCEPTING TRANSFER: [facility] [place] Kendra Roque 03/09: Presented from OSH with concern for acute R MCA stroke. Found down at home, elevated CK, patient was in DKA, No LVO, patient admitted to [facility] NICU. Patient also had left trimal [...] and IBS who presents as transfer from [place] with findings of acute R MCA stroke. [...] but no prior deficits. In ED at [place], stroke eval performed with CT findings of R caudate, insula and frontal evolving infarcts. ASPECTS score 5. CTA nondiagnostic as contrast infiltrated in arm and IV access lost during scan. Central line placed at [place] for access. Patient out of window for [...] by XR. Patient subsequently transferred here to [facility] NSICU for further stroke workup and [...] Neuropathy, Without Long-Term Current Use of Insulin ([facility]) - 06/04/2016 (B priority) Comment: hba1c 8.5 [...] Constipation - 06/19/2019 Coronary Artery Disease Involving [place] Coronary Artery of [place] Heart Without Angina Pectoris - 02/04/2019 Gerd [...] 10:21 AM Signed 10:20 AM Consult dictated #[id number] Start remdesivir and decadron for hypoxia and COVID-19. Monitor LFTs and renal function daily. Kathryn Rose, RN, RN 03/10/2020 11:59 AM Signed Patient transferred to [facility]. RN called report to [address]. RN called patient's son, Osmany and updated on status and transfer to [facility]. Informed him there are no visitors allowed on that floor. All belongings taken with patient. Blood work obtained prior to transfer. Bedside hand off with 9100 RN completed. myriam Bhagat, , Tech 03/10/2020 11:47 AM Signed Radiology Service [...] NON-VIOLENT PATIENT NAME: Lisa Shirley PATIENT LOCATION: [place] [address]/[place] [address]* The patient demonstrates Attempting to Remove Medical [...] 10, 2020 TIME: 2:06 PM JONNY Mcgee, CCC-HIGHWAY ADMINISTRATIVE ENGINEER, CCC/HIGHWAY ADMINISTRATIVE ENGINEER 03/10/2020 3:25 PM Signed Speech Therapy Treatment SERVICE DATE: 03/10/2020 SERVICE TIME: 1415 to 1435 ROOM: [place] [address] IMPRESSION: Patient demonstrates oropharyngeal dysphagia which is [...] tolerance;Motivated Current Hospital Course: COVID-19+ transfer from [facility] to 9100 Reason for Hospital Admission: Stroke [...] 0, Mildly Thick Liquids IDDSI Level 2 (Gerlach Thick) Patient with decreased alertness today Unable [...] following cerebral infarction Interventions Provided: Dysphagia Therapy (31211);Speech Therapy (17214) $ Dysphagia Therapy (03024) Billed Units: 1 unit $ Speech Therapy (38357) Billed Units: 1 unit Training and education provided in: Swallowing Strategies, Dysphagia Management, Motor Speech Skills(Left sided awareness) The following therapeutic skills were used:: Verbal cuing, Visual cuing, Tactile cuing, Repetitive task learning, Education on role of discipline / importance of activity Total Treatment Time (minutes): 220 Home Environment Prior Functional Level: Within Functional Limits Assistance Available: typecasting machine operator Prior Swallowing Function/ (more content not included)... Normal [facility] KETONES/ACETONE/BHBon 2019 Beta hydroxybutyrate [Moles/Vol] >2.00 High <0.28 [facility] Comment on above: Order Comment: Speci men Type: BLOOD SPECIMEN Performed By: #### B HB ####[facility] [id number] [place] [address] [facility] PT Pnl PPPon 03-08-2020 INR Coag (PPP) [Relative time] 1.0 {INR} Normal 0.9-1.3 [facility] Comment on above: Order Comment: Speci men Type: BLOOD SPECIMEN Result Comment: Francia min K Antagonist (VKA) Therapeutic Range: INR 2 to 3 (Target INR of 2.5) Note: For patients treated with VKA drugs, such as warfarin, the [place] [employer] 2012 Guideline recommends [...] Chest 2012, 141:7S-47S Caro RA, et al. [facility] 2017, 70: 252-289 Performed By: #### 2 4321-2 #### [facility] CLIA [id number] [address] [place] [address] PT Coag (PPP) [Time] 10.5 s Normal 9.7-13.0 [facility] Comment on above: Order Comment: Speci men Type: BLOOD SPECIMEN Performed By: #### 2 4321-2 #### [facility] CLIA [id number] [address] [place] [address] SARS-CoV-2 RNA Resp Ql SHLOMO+p robeon 03-08-2020 SARS-CoV-2 RNA Resp Ql SHLOMO+probe COVID 19 RESULT: SARS-CoV-2 (Agent of COVID-19) Not Detected by PCR. keily SARS-CoV-2 AND Influenza A/B Nucleic Acid Test for use on the keily Shavon System*_[employer]EUA This test has been authorized by the FDA under an Emergency Use Authorization (EUA). Normal [facility] Comment on above: Performed By: #### 5 8410-2 #### [facility] CLIA [id number] [address] [place] [address] XR ANKLE 3V AP/LAT/OBL LTon 03-08-2020 XR [...] anteriorly and subluxation of the talus posteriorly. Fiberglass Roller: PSCB Transcribe Date/Time: Mar 08 2020 3:57P Dictated by : MAITE NAVAS MD This examination was interpreted and the report reviewed and electronically signed by: MAITE NAVAS MD on Mar 08 2020 4:00PM EST Normal [facility] XR CHEST 1V FRONTALon 2019 [...] IMPRESSION: No active disease in the chest. Fiberglass Roller: TENISHA Transcribe Date/Time: Mar 08 2020 8:09P Dictated by : SAI KHAN MD This examination was interpreted and the report reviewed and electronically signed by: SAI KHAN MD on Mar 08 2020 8:12PM EST Normal [facility] [employer] [facility] XR CHEST 1V FRONTAL Final Report DATE OF EXAM: Mar 08 2020 3:55PM LDX 5290 - XR CHEST 1V FRONTAL / PROCEDURE REASON: Altered mental status (AMS), unclear cause Physician Interpretation EXAM 1: CHEST X-RAY CLINICAL HISTORY: Pelvic fx, known or suspected (accession [id number]), Altered mental status (AMS), unclear cause (accession [id number]) TECHNIQUE: AP supine COMPARISON: None available. RESULT: Lines/tubes/devices: None visualized. Heart/mediastinum: Within normal limits. Lungs/pleura: Clear. Bones/soft tissues: Unremarkable. EXAM 2: PELVIS X-RAY HISTORY: Pelvic fx, known or suspected TECHNIQUE: AP supine view. COMPARISON: None available. RESULT: Bilateral hip and sacroiliac joints are maintained. No acute fracture or malalignment. COMBINED IMPRESSION: 1. Chest: No acute findings. 2. Pelvis: No acute fracture or malalignment. Fiberglass Roller: [facility] Transcribe Date/Time: Mar 08 2020 3:58P Dictated by : JUAN CARLOS VALENZUELA MD This examination was interpreted and the report reviewed and electronically signed by: JUAN CARLOS VALENZUELA MD on Mar 08 2020 3:59PM EST Normal [facility] [employer] [facility] XR PELVIS 1V APon 03-08-2020 XR PELVIS 1V AP Final Report DATE OF EXAM: Mar 08 2020 3:55PM LDX 5239 - XR PELVIS 1V AP / PROCEDURE REASON: Pelvic fx, known or suspected Physician Interpretation EXAM 1: CHEST X-RAY CLINICAL HISTORY: Pelvic fx, known or suspected (accession [id number]), Altered mental status (AMS), unclear cause (accession [id number]) TECHNIQUE: AP supine COMPARISON: None available. RESULT: Lines/tubes/devices: None visualized. Heart/mediastinum: Within normal limits. Lungs/pleura: Clear. Bones/soft tissues: Unremarkable. EXAM 2: PELVIS X-RAY HISTORY: Pelvic fx, known or suspected TECHNIQUE: AP supine view. COMPARISON: None available. RESULT: Bilateral hip and sacroiliac joints are maintained. No acute fracture or malalignment. COMBINED IMPRESSION: 1. Chest: No acute findings. 2. Pelvis: No acute fracture or malalignment. Fiberglass Roller: PSCTameka Transcribe Date/Time: Mar 08 2020 3:58P Dictated by : JUAN CARLOS VALENZUELA MD This examination was interpreted and the report reviewed and electronically signed by: JUAN CARLOS VALENZUELA MD on Mar 08 2020 3:59PM EST Normal [facility] aPTT PPPon 03-08-2020 aPTT Coag (PPP) [Time] 23.2 s Normal 23.0-32.4 [facility] Comment on above: Order Comment: Speci men Type: BLOOD SPECIMEN Performed By: #### 2 4321-2 #### [facility] CLIA [id number] [address] [place] [address] Total 25-OH Vitamin Don 10-25 Total 25-OH Vitamin D 31.3 ng/mL Normal 30.0-100.0 [facility] Comment on above: Performed By: #### 2 5VD1 ####[address] [address] Comprehensive Panelon 2019 Albumin [Mass/Vol] 4.1 g/dL Normal 3.9-4.9 [facility] Comment on above: Performed By: #### L LP14 ####[facility] [place], [place] [address] ALP [Catalytic activity/Vol] 95 U/L Normal 34-123 [facility] Comment on above: Performed By: #### L LP14 ####[facility] [place], [place] [address] ALT-SGPT Blood 14 U/L Normal 7-38 [facility] Comment on above: Performed By: #### L LP14 ####[facility] [place], [place] [address] Anion gap [Moles/Vol] 14 mmol/L Normal 9-18 [facility] Comment on above: Performed By: #### L LP14 ####[facility] [place], [place] [address] AST-SGOT Blood 17 U/L Normal 13-35 [facility] Comment on above: Performed By: #### L LP14 ####[address] [address] Bilirubin Ql (U) 0.5 mg/dL Normal 0.2-1.3 [facility] Comment on above: Performed By: #### L LP14 ####[address] [address] Calcium [Mass/Vol] 9.5 mg/dL Normal 8.5-10.2 [facility] Comment on above: Performed By: #### L LP14 ####[address] [address] Chloride [Moles/Vol] 93 mmol/L Low 97-105 [facility] Comment on above: Performed By: #### L LP14 ####[address] [address] CO2 Blood 23 mmol/L Normal 22-30 [facility] Comment on above: Performed By: #### L LP14 ####[address] [address] Creatinine [Mass/Vol] 1.39 mg/dL High 0.58-0.96 [facility] Comment on above: Performed By: #### L LP14 ####[address] [address] Glucose [Mass/Vol] 309 mg/dL High 74-99 [facility] Comment on above: Result Comment: The [place] Diabetes Association (ADA) provides guidance for cutoff [...] Standards of Medical Care in Diabetes 2016; [place] [employer] Association. Diabetes Care. 2016;39(Suppl 1). Performed By: #### L LP14 ####[facility] [place], [place] [address] Potassium [Moles/Vol] 3.8 mmol/L Normal 3.7-5.1 [facility] Comment on above: Performed By: #### L LP14 ####[address] [address] Protein [Mass/Vol] 7.7 g/dL Normal 6.3-8.0 [facility] Comment on above: Performed By: #### L LP14 ####[address] [address] Sodium [Moles/Vol] 130 mmol/L Low 136-144 [facility] Comment on above: Performed By: #### L LP14 ####[address] [address] Urea nitrogen [Mass/Vol] 16 mg/dL Normal 7-21 [facility] Comment on above: Performed By: #### L LP14 ####[address] [address] Lipid Profile, [facility] 11-06 FASTING TIME 12 Hrs Normal [facility] Comment on above: Performed By: #### L LPF ####[address] [address] Cholesterol [Mass/Vol] 226 mg/dL High 0-199 [facility] Comment on above: Result Comment: Tota l Cholesterol < 200 mg/dL, Desirable Total Cholesterol 200 to 239 mg/dL, Borderline high Total Cholesterol > 239 mg/dL, High Performed By: #### L LPF ####[address] [address] Cholesterol in HDL [Mass/Vol] 49 mg/dL Normal [facility] Comment on above: Result Comment: Refe rence Range: HDL Cholesterol 40- 59 mg/dL, Acceptable HDL Cholesterol >59 mg/dL, High; Negative risk factor for coronary heart disease HDL Cholesterol <40 mg/dL, Low; Positive risk factor for coronary heart disease Performed By: #### L LPF ####[place] [address] Cholesterol in LDL [Mass/Vol] 139 mg/dL High 0-99 [facility] Comment on above: Result Comment: LDL Cholesterol < 100 mg/dL, Optimal LDL Cholesterol 100 to 129 mg/dL, Near optimal/above optimal LDL Cholesterol 130 to 159 mg/dL, Borderline high LDL Cholesterol 160 to 189 mg/dL, High LDL Cholesterol > 189 mg/dL, Very high Secondary prevention optimal LDL Cholesterol levels are recommended to be < 70 mg/dL Performed By: #### L LPF ####[place] [address] Cholesterol in LDL/Cholesterol in HDL [Mass ratio] 2.84 High 0.00-2.53 [facility] Comment on above: Performed By: #### L LPF ####[place] [address] Cholesterol.total/Cho lesterol in HDL [Mass ratio] 4.61 {ratio} Normal 0.00-5.09 [facility] Comment on above: Performed By: #### L LPF ####[place] [address] Non-HDL Cholesterol 177 mg/dL High 0-129 [facility] Comment on above: Result Comment: Non HDL [...] 100 mg/dL Performed By: #### L LPF ####[place] [address] Triglyceride Blood 191 mg/dL High 0-149 [facility] Comment on above: Result Comment: Trig lycerides < 150 mg/dL, Normal Triglycerides 150 to 199 mg/dL, Borderline high Triglycerides 200 to 499 mg/dL, High Triglycerides > 499 mg/dL, Very high Performed By: #### L LPF ####[place] [address] VLDL Cholesterol 38 mg/dL High 0-29 [facility] Comment on above: Performed By: #### L LPF ####[place] [address] MDRD eGFRon 11-07-2019 GFR/1.73 sq M predicted among non-blacks MDRD (S/P/Bld) [Vol rate/Area] 39.57 mL/min/{1.73_m2} Normal >60mL/min/ 1.73m2 [facility] Comment on above: Result Comment: If t he patient is , multiply the result by 1.210. Performed By: #### L GFR ####[place] [address] Clinical Summary: HMSPatient IDon 09-29-2018 [facility] Work Phone: Office Visit: New - 1st visi t with practice, Rm: 4on 09-29-2018 NEGATED: Highlighted rowMRI (magnetic resonance imaging) history of the Lumbar on 07/20/2018 at [facility] Work Phone: NEGATED: Highlighted rowProtein mass conc Done [facility] Work Phone: NEGATED: Highlighted rowxray history of the Lumbar on 02/26/[address] [facility] Work Phone: CASE MANAGEMon 09-07-2017 CASE MANAGEM HNO ID: [id number] thor: Genie Alfaro (Jesus)Service: (none)Author Type: Social [...] with TIAHANDOFF COMMUNICATION:Primary Care Physician: Dr. Aragon [id number] ARRANGEMENTS:Froylan Hollingsworth has current PCP follow up appointment scheduled and confirmed she willchange if needed. SOC to be sent to PCP.SIGNATURE: ALEJANDRINA ANGUIANO PATIENT NAME: Lisa ShirleyDATE: September 07, 2017 : 6:27 PM PAGER/CONTACT #: [phone] [facility] H[facility] ID: [id number] thor: Sharon Loomis (Rn), RNService: Care ManagementAuthor Type: Registered NurseType: Care Mgt Initial AssessmentFiled: 09/07/2017 4:52 PMNote Text:CARE MANAGEMENT: ASSESSMENT AND DISCHARGE PLANSERVICE DATE: 09/07/2017SERVICE TIME: 4:07 PMPRIMARY CARE PHYSICIAN:Jaqueline Aragon DO (confirmed) Mj has an appointment in 3 weeks, she will change if needed.ADMISSION STATUS: Observation (pt aware)Needs Prior to Discharge: NoneMEDICAL:Patient/Represe ntative Stated Goals:To have reduction in symptomsTo return home to life as it wasHealth Insurance: MEDICARE A AND B.Health Issues Impacting Discharge Plan: TIALast Admission Date: Previous admit date: 12/25/2010Is this Within the Past 30 days? NoAdvance Directive:Current Advance Directive: NoneCare Prosthetic Aides Teacher Assisted with AD Completion: No (pt called [...] StraightGlucometerWalkerBP monitorHas the Patient Been in a Halfway Facility in the Past 30 days? NoSOCIAL:Living Arrangement: HomeLives With: SpouseFinancial Resources: RetiredPrimary Contact: Extended Emergency Contact InformationPrimary Emergency Contact: Lanre Shirley RAdess: [address] Ymfaopwb: SpouseSecondary Emergency Contact: Ct UrbinaAnimas Tjmnnnxy: GrandchildSupportive: YesOther Important Patient Contacts: NoneCaregiver Assessment:Caregiver [...] - 0I feel financially burdened by my you-fc-zmgurj expenses for myprescription medication: Disagree completely - [...] 07, 2017 : 4:07 PM PAGER/CONTACT #: [phone] Normal [facility] CBC and Differentialon 09-07 Abs Baso 0.03 k/uL Normal <0.11 [facility] Comment on above: Performed By: #### T NT ####[facility] [address] [place] [address] Abs Cidra 0.51 k/uL Normal <0.87 [facility] Comment on above: Performed By: #### T NT ####[facility] [address] [place] [address] Abs Neut 2.43 k/uL Normal 1.45-7.50 [facility] Comment on above: Performed By: #### T NT ####[place] [address] Basophils/100 WBC Auto (Bld) 0.5 % Normal [facility] Comment on above: Performed By: #### T NT ####[place] [address] Eosinophils 0.06 10*3/uL Normal <0.46 [facility] Comment on above: Performed By: #### T NT ####[place] [address] Eosinophils/100 leukocytes 1.1 % Normal [facility] Comment on above: Performed By: #### T NT ####[place] [address] Erythrocyte distribution width Auto Ratio (RBC) 13.3 % Normal 11.5-15.0 [facility] Comment on above: Performed By: #### T NT ####[place] [address] Erythrocytes (RBC) 4.42 10*6/uL Normal 3.90-5.20 [facility] Comment on above: Performed By: #### T NT ####[facility] [address] [place] [address] Hematocrit (HCT) 39.7 % Normal 36.0-46.0 [facility] Comment on above: Performed By: #### T NT ####[place] [address] Hemoglobin mass conc (Bld) 12.8 g/dL Normal 11.5-15.5 [facility] Comment on above: Performed By: #### T NT ####[place] [address] Lymphocytes 2.45 10*3/uL Normal 1.00-4.00 [facility] Comment on above: Performed By: #### T NT ####[place] [address] Lymphocytes/100 leukocytes 44.7 % Normal [facility] Comment on above: Performed By: #### T NT ####[place] [address] MCH 29.0 pG Normal 26.0-34.0 [facility] Comment on above: Performed By: #### T NT ####[place] [address] MCHC mass conc (RBC) 32.2 g/dL Normal 30.5-36.0 [facility] Comment on above: Performed By: #### T NT ####[place] [address] MCV 89.8 fL Normal 80.0-100.0 [facility] Comment on above: Performed By: #### T NT ####[place] [address] Monocytes/100 leukocytes 9.3 % Normal [facility] Comment on above: Performed By: #### T NT ####[place] [address] Neutrophils/100 WBC Auto (Bld) 44.4 % Normal [facility] Comment on above: Performed By: #### T NT ####[place] [address] Platelet mean volume (PMV) 11.6 fL Normal 9.0-12.7 [facility] Comment on above: Performed By: #### T NT ####[facility] [address] [place] [address] Platelets 206 10*3/uL Normal 150-400 [facility] Comment on above: Performed By: #### T NT ####[facility] [address] [place] [address] WBC (Leukocytes) 5.48 10*3/uL Normal 3.70-11.00 [facility] Comment on above: Performed By: #### T NT ####[facility] [address]721[address] CNDSon 09-07-2017 [facility] HNO ID: [id number] thor: Cristopher Munoz MDService: [facility] MedicineAuthor Type: PhysicianType: Discharge SummariesFiled: 09/07/2017 5:56 PMNote Text:DISCHARGE SUMMARYPATIENT NAME: Lisa ShirleyMRN: [id number] Information Admission Information ADMIT DATE: 09/05/2017DISCHARGE DATE: 09/07/2017MY DOCTORS AND MEDICAL TEAM:[facility] Doctor: Akbar Mas Care Provider: Kuldeep Babb Medical Team Members: Treatment Team:Attending Provider: JUAN Masonsulting: Ralph Rachel Jr.Physician Load Blocker: Gabe Tinoco) StrickerMY CONDITION AT DISCHARGE: StableREASON [...] to call for appointment?: Yes Jaqueline Alvarez [phone] [facility] [address] PCP Requested ReferralAdditional Provider to Provider Information: [...] 09/07/2017 NoneFOLLOW-UP APPOINTMENTS ALREADY SCHEDULED WITH A [facility] PROVIDER:Future AppointmentsDate Time Provider Department Center10/02/2017 2:30 PM Jaqueline DINGGUIDO 225 ELYRIDISCHARGE MEDICATION: Current Discharge Medication ListSTART [...] diabetic neuropathy,without long-term current use of insulin ([facility])PSYLLIUM HUSK (METAMUCIL ORAL)Take by mouth once daily.BIFIDOBACTERIUM [...] PAGER/CONTACT #:DATE: September 07, 2017TIME: 5:53 PM [facility] CONSULTon 09-07-2017 CONSULT HNO ID: [id number] thor: Ralph Rachel Jr.Service: NeurologyAuthor Type: PhysicianType: ConsultsFiled: 09/07/2017 5:20 PMNote Text:CONSULT: NEUROLOGY SERVICESERVICE DATE: 09/07/2017SERVICE TIME: 4:56 PMREASON FOR CONSULT: StrokeREQUESTING PHYSICIAN: Gabe Erickson [facility] CenterCristy CARE PHYSICIAN: Jaqueline Aragon, MICHELAubjectBerthaMauricio Shirley is a pleasant 72 year old right handed female with pastmedical history significant for stroke ([id number] residual), HTN, DM,HLD, who presented to [place] ER on 09/05/17 following transient onset of:-flashing lights in the nasal visual field of only the right eye nymnudt53 minutes, with associating word finding difficulties and [...] with no afib.Cholesterol, TotalDate Value Ref Range Iittem0309/06/2017 175 <200 mg/dL FinalComment:<200 mg/dL, Yuzszuigf511-520 mg/dL, Borderline high>239 mg/dL, High HDL CholesterolDate Value Ref Range Fkexwj9309/06/2017 51 >39 mg/dL FinalComment:40-59 mg/dL, Acceptable>59 mg/dL, High: Negative risk factor for coronary heart disease<40 mg/dL, Low: Positive risk factor for coronary heart disease LDL CholesterolDate Value Ref Range Btufmz5409/06/2017 91 <100 mg/dL FinalComment:<100 mg/dL, Pjtzadd026-896 mg/dL, Near optimal/above xmjeebx679-930 mg/dL, Borderline mpxe673-088 mg/dL, High>189 mg/dL, Very highSecondary prevention optimal LDL Cholesterol levels are recommended to be< 70mg/dL Triglyceri deDate Value Ref Range Iteuuv0409/06/2017 167 (H) <150 mg/dL FinalComment:<150 mg/dL, Ajvnvu378-256 mg/dL, Borderline nmho258-443 mg/dL, High>499 mg/dL, Very high Patient was [...] daily. Disp:90 tablet Rfl: 0 09/05/2017 at [facility] medications:zolpidem 10 mg tab(s) (AMBIEN) 10 mg [...] dysarthria; comprehension, naming, repetition intact. Short and alf memory intact. Fund of knowledge grossly normal [...] Temp Temp src Pulse Resp SpO2 Height Dvfttt30/14/18 1600 153/64 36.9 ?C (98.5 ?F) Oral [...] 206 k/uL09/05/2017 205 thou/cmm BUN (mg/dL)Date Value09/07/2017 19009/05/2017 23 Creatinine (mg/dL)Date Value09/07/2017 1.4205 1.4705 1.52 CBC, Coags, BMP, Mg, PhosRecent Labs [...] September 07, 2017 : 4:56 PM PAGER: [phone] Normal [facility] Comp Metabolic Panelon 09-07 Alanine aminotransferase (ALT) 10 U/L Normal 7-38 [facility] Comment on above: Performed By: #### T NT ####[facility] [address] [place] [address] Albumin 4.0 g/dL Normal 3.9-4.9 [facility] Comment on above: Performed By: #### T NT ####[facility] Ebfr[address] [place] [address] Alkaline phosphatase (ALP) 60 U/L Normal 32-117 [facility] Comment on above: Performed By: #### T NT ####[facility] [address] [place] [address] Anion gap 12 mmol/L Normal 9-18 [facility] Comment on above: Performed By: #### T NT ####[facility] [address] [place] [address] Aspartate aminotransferase (AST) 14 U/L Normal 13-35 [facility] Comment on above: Performed By: #### T NT ####[facility] [address] [place] [address] Bilirubin (total) 0.5 mg/dL Normal 0.2-1.3 [facility] Comment on above: Performed By: #### T NT ####[facility] [address] [place] [address] Calcium 9.3 mg/dL Normal 8.5-10.2 [facility] Comment on above: Performed By: #### T NT ####[facility] [address] [place] [address] Chloride 102 mmol/L Normal 97-105 [facility] Comment on above: Performed By: #### T NT ####[place] [address] CO2 26 mmol/L Normal 22-30 [facility] Comment on above: Performed By: #### T NT ####[place] [address] Creatinine 1.42 mg/dL High 0.58-0.96 [facility] Comment on above: Performed By: #### T NT ####[place] [address] eGFR (non-black) 37 . Normal [facility] Comment on above: Result Comment: eGFR (Estimated [...] actual GFR. Performed By: #### T NT ####[place] [address] eGFR (non-black) 44 mL/min/{1.73_m2} Normal [facility] Comment on above: Performed By: #### T NT ####[place] [address] Glucose mass conc 156 mg/dL High 74-99 [facility] Comment on above: Result Comment: The [place] Diabetes Association (ADA) provides guidance for cutoff [...] Standards of Medical Care in Diabetes 2016, [place] [employer]. Diabetes Care. 2016.39(Suppl 1). Performed By: #### T NT ####[facility] [address] [place] [address] Potassium molar conc 4.4 mmol/L Normal 3.7-5.1 [facility] Comment on above: Performed By: #### T NT ####[facility] [address] [place] [address] Protein 6.7 g/dL Normal 6.3-8.0 [facility] Comment on above: Performed By: #### T NT ####[place] [address] Sodium 140 mmol/L Normal 136-144 [facility] Comment on above: Performed By: #### T NT ####[place] [address] Urea nitrogen 20 mg/dL Normal 7-21 [facility] Comment on above: Performed By: #### T NT ####[facility] [address] [place] [address] MRA BRAIN WO IVCONon -14-2 018 MRA BRAIN WO IVCON * * *Final Report* * *DATE OF EXAM: Sep 07 2017 10:40AM [facility] 0272 - MRA BRAIN WO IVCON / REASON: TIA (transient ischemic attack) * * * * Physician Interpretation * * * * EXAMINATION: MRI BRAIN WO IVCON, MRA BRAIN WO IVCONHISTORY: TIA (transient ischemic attack)TECHNIQUE: Routine noncontrast MRI protocol including diffusion images. 3-D oqcz-xo-fuiuuq MR angiography of the brain without contrast. [...] luminal irregularity in the proximal MCAs and molecular biologist bilaterally compatible with intracranial atherosclerotic change. No evidence of flow-limiting stenosis or vessel cut off or filling defect. No aneurysm is detected.IMPRESSION:No acute intracranial infarct. Remote ischemic changes and mild volume loss.Mild luminal irregularity in the middle cerebral arteries and posterior cerebral arteries bilaterally suggests intracranial atherosclerosis. No vessel cut off or filling defect.Fiberglass Roller: TENISHA Transcribe Date/Time: Sep 07 2017 10:42ADictated by : SEAN FOWLER MDThis examination was interpreted and the report reviewed and electronically signed by: SEAN FOWLER MD on Sep 07 2017 10:45AM [id number] [facility] MRI BRAIN WO IVCONon 018 MRI BRAIN WO IVCON * * *Final Report* * *DATE OF EXAM: Sep 07 2017 10:40AM [facility] 0294 - MRI BRAIN WO IVCON / REASON: TIA (transient ischemic attack) * * * * Physician Interpretation * * * * EXAMINATION: MRI BRAIN WO IVCON, MRA BRAIN WO IVCONHISTORY: TIA (transient ischemic attack)TECHNIQUE: Routine noncontrast MRI protocol including diffusion images. 3-D zzbv-rf-rcjadd MR angiography of the brain without contrast. [...] luminal irregularity in the proximal MCAs and molecular biologist bilaterally compatible with intracranial atherosclerotic change. No evidence of flow-limiting stenosis or vessel cut off or filling defect. No aneurysm is detected.IMPRESSION:No acute intracranial infarct. Remote ischemic changes and mild volume loss.Mild luminal irregularity in the middle cerebral arteries and posterior cerebral arteries bilaterally suggests intracranial atherosclerosis. No vessel cut off or filling defect.Fiberglass Roller: PSCB Transcribe Date/Time: Sep 07 2017 10:42ADictated by : SEAN FOWLER MDThis examination was interpreted and the report reviewed and electronically signed by: SEAN FOWLER MD on Sep 07 2017 10:45AM [id number] Normal [facility] Magnesiumon 09-07-2017 Magnesium 2.1 mg/dL Normal 1.7-2.3 [facility] Comment on above: Performed By: #### T NT ####[facility] [address] [place] [phone] NURSING PROGon 09-07-2017 NURSING PROG HNO ID: [id number] thor: Tabatha Carmen (Rn), RNService: NursingAuthor Type: Registered NurseType: Nursing Progress NoteFiled: 09/07/2017 7:17 AMNote Text: Nursing Progress NotePatient Name: Lisa ShirleyMRN: [id number] Location: [place] [address]/[id number]-____ Daily Note:0500-New orders to D/C ambien and xanax.0448-IVF started.0600-IV infiltrated. IV replaced. Patient stated she feeling better butstill a little foggy.This note was completed by: Tabatha Carmen RN Normal [facility] PROGRESSon 09-07-2017 PROGRESS HNO ID: [id number] thor: Cristopher Munoz, MDService: [facility] MedicineAuthor Type: PhysicianType: Progress NotesFiled: 09/07/2017 5:47 PMNote Text:SERVICE DATE: 09/07/2017SERVICE TIME: 5:46 PMHOSPITAL MEDICINE PROGRESS NOTENIGHT AND WEEKEND COVERAGE: Nights: Please contact pager [phone].Reason for Admission/Observation: TIAHOSPITAL DAY ZERO: 09/05/2017Presentation: Suspected TIA, also may have had episode of hypoglycemia.Episode of right eye vision disturbance lasting 10 minutes (amaurosisfugax) followed by slurred speech and difficulty with word finding(lasting 10 minutes, now resolved.Hx of CVA of destiny around 2010.Consultants:Dr. RachelDisposition: HomeSUBJECTIVEInterval HPI:No chest pain or shortness of [...] diabetic neuropathy, without long-termcurrent use of insulin ([facility]) 06/04/2016 - Present Overview hba1c [...] of care discussed with: Patient, Family/Other: Granddaughter, CaseMangement, RN and Consultants: Dr. GalvezATURE: Cristopher Munoz MD PATIENT NAME: Lisa ShirleyDATE: September 07, 2017 : 5:46 PM PAGER/CONTACT #: [facility] PROGRESS HNO ID: [id number] thor: Magui Dalal (Rn), RNService: NursingAuthor Type: [...] patient.4:10am- MD on unit at bedside. Normal [facility] CBCon 09-06-2017 Erythrocyte distribution width Auto Ratio (RBC) 13.4 % Normal 11.5-15.0 [facility] Comment on above: Performed By: #### C BC, CMP ####[place] [address]#### LIPB ####[place] [address] Erythrocytes (RBC) 4.24 10*6/uL Normal 3.90-5.20 [facility] Comment on above: Performed By: #### C BC, CMP ####[place] [address]#### LIPB ####[place] [address] [place] [address] Hematocrit (HCT) 37.8 % Normal 36.0-46.0 [facility] Comment on above: Performed By: #### C BC, CMP ####[place] [address]#### LIPB ####[place] [address] [address] [place] [address] Hemoglobin mass conc (Bld) 12.4 g/dL Normal 11.5-15.5 [facility] Comment on above: Performed By: #### C BC, CMP ####[place] [address]#### LIPB ####[place] [address] [address] [place] [address] MCH 29.2 pG Normal 26.0-34.0 [facility] Comment on above: Performed By: #### C BC, CMP ####[facility] [address] [place] [address]#### LIPB ####[place] [phone] MCHC mass conc (RBC) 32.8 g/dL Normal 30.5-36.0 [facility] Comment on above: Performed By: #### C BC, CMP ####[place] [address]#### LIPB ####[address] [place] [phone] MCV 89.2 fL Normal 80.0-100.0 [facility] Comment on above: Performed By: #### C BC, CMP ####[place] [address]#### LIPB ####[place] [phone] Platelet mean volume (PMV) 11.7 fL Normal 9.0-12.7 [facility] Comment on above: Performed By: #### C BC, CMP ####[place] [address]#### LIPB ####[place] [phone] Platelets 206 10*3/uL Normal 150-400 [facility] Comment on above: Performed By: #### C BC, CMP ####[place] [address]#### LIPB ####[place] [phone] WBC (Leukocytes) 6.28 10*3/uL Normal 3.70-11.00 [facility] Comment on above: Performed By: #### C BC, CMP ####[place] [address]#### LIPB ####[address] [place] [phone] Comp Metabolic Panelon 05-13 -2018 Alanine aminotransferase (ALT) 10 U/L Normal 7-38 [facility] Comment on above: Performed By: #### C BC, CMP ####[facility] [address] [place] [address]#### LIPB ####[place] [address] [address] [place] [phone] Albumin 3.9 g/dL Normal 3.9-4.9 [facility] Comment on above: Performed By: #### C BC, CMP ####[place] [address]#### LIPB ####[address] [place] [phone] Alkaline phosphatase (ALP) 59 U/L Normal 32-117 [facility] Comment on above: Performed By: #### C BC, CMP ####[place] [address]#### LIPB ####[place] [address] [address] [phone] Anion gap 13 mmol/L Normal 9-18 [facility] Comment on above: Performed By: #### C BC, CMP ####[place] [address]#### LIPB ####[place] [address] [address] [place] [phone] Aspartate aminotransferase (AST) 14 U/L Normal 13-35 [facility] Comment on above: Performed By: #### C BC, CMP ####[place] [address]#### LIPB ####[place] [address] [address] [place] [phone] Bilirubin (total) 0.3 mg/dL Normal 0.2-1.3 [facility] Comment on above: Performed By: #### C BC, CMP ####[facility] [address] [place] [address]#### LIPB ####[place] [address] [address]CAngela [place] [phone] Calcium 9.3 mg/dL Normal 8.5-10.2 [facility] Comment on above: Performed By: #### C BC, CMP ####[place] [address]#### LIPB ####[place] [address] [address] AveCRyan [place] [address] Chloride 104 mmol/L Normal 97-105 [facility] Comment on above: Performed By: #### C BC, CMP ####[place] [address]#### LIPB ####[place] [address] [address] [phone] CO2 24 mmol/L Normal 22-30 [facility] Comment on above: Performed By: #### C BC, CMP ####[place] [address]#### LIPB ####[place] [address] [address] [place] [phone] Creatinine 1.47 mg/dL High 0.58-0.96 [facility] Comment on above: Performed By: #### C BC, CMP ####[place] [address]#### LIPB ####[place] [address] [address] AveCRyan [place] [address] eGFR (non-black) 43 mL/min/{1.73_m2} Normal [facility] Comment on above: Performed By: #### C BC, CMP ####[place] [address]#### LIPB ####[place] [address] [address] [place] [phone] eGFR (non-black) 35 . Normal [facility] Comment on above: Result Comment: eGFR (Estimated [...] reflect actual GFR. Performed By: #### C MANOLO, CMP ####[facility] [address] [place] [address]#### LIPB ####[place] [address] [place], [place] [phone] Glucose mass conc 71 mg/dL Low 74-99 [facility] Comment on above: Result Comment: The [place] Diabetes Association (ADA) provides guidance for cutoff [...] Standards of Medical Care in Diabetes 2016, [place] [employer]. Diabetes Care. 2016.39(Suppl 1). Performed By: #### C MANOLO, CMP ####[facility] [address] [place] [address]#### LIPB ####[facility] [place], [place] [phone] Potassium molar conc 4.1 mmol/L Normal 3.7-5.1 [facility] Comment on above: Performed By: #### C MANOLO, CMP ####[facility] [address] [place] [address]#### LIPB ####[facility], [place] [phone] Protein 6.5 g/dL Normal 6.3-8.0 [facility] Comment on above: Performed By: #### C BC, CMP ####[facility] [address] [place] [address]#### LIPB ####[facility] [address] [place] [phone] Sodium 141 mmol/L Normal 136-144 [facility] Comment on above: Performed By: #### C BC, CMP ####[facility] [address] [place] [address]#### LIPB ####[facility] Opkgaeywaovp8715 [phone] Urea nitrogen 19 mg/dL Normal 7-21 [facility] Comment on above: Performed By: #### C BC, CMP ####[facility] [address] [place] [address]#### LIPB ####[facility] Xwpxdmcncnmj0658 [phone] HISTORY PHYSICALon 8 HISTORY PHYSICAL HNO ID: [id number] thor: Gabe Tinoco) Gigi: General Internal MedicineAuthor Type: Physician AssistantType: HANDPFiled: 09/05/2017 11:39 PMNote Text: ----Attestation signed by Samantha Anand at 09/10/2017 11:52 [facility] STAFF PHYSICIAN NOTE OF PERSONAL INVOLVEMENT IN CAREI have reviewed the history and physical examination obtained and documented bythe physician export sales assistant and I personally participated in the levy components. Chucky discussed the case and management of the patient's care.72 year old female with history of CVA in 2010 who [facility] [place] [facility] with[place]-[facility] DELEON, had vision disturbance to [...] MEDICINEHISTORY AND PHYSICAL EXAMPATIENT NAME: Lisa ShirleyMRN: [id number] DATE: 09/05/2017SERVICE TIME: 10:37 PMPrimary Care Physician: ANGÉLICA Babb COVERAGEPage [phone] for any questions between 5.30p-7.30aASSESSMENT AND PLANActive [...] diabetic neuropathy, without long-termcurrent use of insulin ([facility]) hba1c 8.5 on 06/2017.D/c glimepiride as pt recently started and sounds like she has hadhypoglycemic episodes. Continue januvia +SSI.Recheck HbA1c.SUBJECTIVECHIEF COMPLAINT: HAHPI: This is a 72 year old female with history of CVA in 2010 [place] [facility] [place]-sided DELEON. Occurred around 5pm [...] of care discussed with: Patient and RNSIGNATURE: FATOUMATA Baldwin-CDATE: September 05, 2017TIME: 10:37 PM Normal [facility] Hemoglobin A1con 09-06-2017 Glucose mass conc 183 mg/dL Normal [facility] Comment on above: Result Comment: eAG: (Estimated average glucose) is a calculated value from HgbA1c and is rental representative of the average blood glucose level in the last 2-3 month period. Performed By: #### H BA1C ####[place] [phone] Hemoglobin A1c/Hemoglobin.total mass fraction (Bld) 8.0 % High 4.3-5.6 [facility] Comment on above: Performed By: #### H BA1C ####[place] [phone] Lipid Panel, Basicon 018 Cholesterol 175 mg/dL Normal <200 [facility] Comment on above: Result Comment: <200 mg/dL, Desirable 200-239 mg/dL, Borderline high>239 mg/dL, High Performed By: #### C BC, CMP ####[place] [address]#### LIPB ####[place] [phone] Fasting Time Unknown Normal [facility] Comment on above: Performed By: #### C BC, CMP ####[facility] [address] [place] [address]#### LIPB ####[place] [phone] HDL Cholesterol 51 mg/dL Normal >39 [facility] Comment on above: Result Comment: 40-5 9 mg/dL, Acceptable>59 mg/dL, High: Negative risk factor for coronary heart disease<40 mg/dL, Low: Positive risk factor for coronary heart disease Performed By: #### C BC, CMP ####[place] [address]#### LIPB ####[place] [phone] LDL Cholesterol 91 mg/dL Normal <100 [facility] Comment on above: Result Comment: <100 mg/dL, Optimal 100-129 mg/dL, Near optimal/above optimal 130-159 mg/dL, Borderline high 160-189 mg/dL, High>189 mg/dL, Very highSecondary prevention optimal LDL Cholesterol levels are recommended to be < 70 mg/dL Performed By: #### C BC, CMP ####[facility] [address] [place] [address]#### LIPB ####[address]ennifer [place] [phone] LDL:HDL Ratio 1.78 Normal <2.54 [facility] Comment on above: Result Comment: Refe rence:1. National Cholesterol Education Program ATP III Guideline At-A-Glance Quick Desk Reference: National Heart, Lung, and Blood [place]. National Institutes of Health. 2001: NIH Publication No. 01-3305.2. An International Atherosclerosis Society position paper: global recommendations for the management of dyslipidemia: executive summary, Atherosclerosis. 2014: 232(2):410-413. Performed By: #### C BC, CMP ####[place] [address]#### LIPB ####[place] [phone] Non HDL Cholesterol 124 mg/dL Normal <130 [facility] Comment on above: Result Comment: <130 mg/dL, Optimal 130-159 mg/dL, Near optimal/above optimal 160-189 mg/dL, Borderline high 190-219 mg/dL, High>219 mg/dL, Very highSecondary prevention optimal non HDL Cholesterol levels are recommended to be < 100 mg/dL Performed By: #### C BC, CMP ####[facility] [address] [place] [address]#### LIPB ####[place] [address] [address] [place] [phone] TC:HDL Ratio 3.43 Normal <5.10 [facility] Comment on above: Performed By: #### C BC, CMP ####[facility] [address] [place] [address]#### LIPB ####[facility] Lqqkzcyophro[address]36 [place] [phone] Triglyceride 167 mg/dL High <150 [facility] Comment on above: Result Comment: <150 mg/dL, Normal 150-199 mg/dL, Borderline high 200-499 mg/dL, High>499 mg/dL, Very high Performed By: #### C BC, CMP ####[facility] [address] [place] [address]#### LIPB ####[place] [phone] [place] [phone] VLDL Cholesterol 33 mg/dL High <30 [facility] Comment on above: Performed By: #### C BC, CMP ####[place] [address]#### LIPB ####[place] [phone] [place] [phone] NURSING PROGon 09-06-2017 NURSING PROG HNO ID: [id number] thor: Candie Wray (Rn), RNService: NursingAuthor Type: Registered NurseType: Nursing Progress NoteFiled: 09/06/2017 8:27 PMNote Text: Nursing Progress NotePatient Name: Lisa ShirleyMRN: [id number] Location: [place] [address] [address]-1____ Daily Note:0800- Patient awake and alert. Denies pain. Neuro assessment WNL. Deniesneeds.1000- Off unit for edwivxd1247- Patient resting comfortably. Denies needs. Call light in reach.1400- No new changes in assessment. Call light in reach.1600- Sitting at bedside. Call light in reach. Tele NSR.1800- No acute s./s of distress. No new changes in neuro assessment.This note was completed by: Candie Wray RN [facility] NURSING [facility] ID: [id number] thor: Tabatha Carmen (Rn), RNService: NursingAuthor Type: Registered NurseType: Nursing Progress NoteFiled: 09/06/2017 7:44 PMNote Text: Nursing Progress NotePatient Name: Lisa ShirleyMRN: [id number] [facility]8/ZK-0U-7903-1____ Daily Note:2230-Neuro assessment WNL. Patient denied headache. Speech Clear.0030-Patient alert and oriented. Calls for assist to bathroom. Neuroassessment WNL. SR on telemetry.0230-Neuro assessment unchanged. SR on telemetry.0430-Neuro assessment unchanged. SR on telemetry,0630-Neuro assessment WNL. Patient denied headache.This note was completed by: Tabatha Carmen RN [facility] NURSING [facility] ID: [id number] thor: Tabatha CarmenRn), RNService: NursingAuthor Type: Registered NurseType: Nursing Progress NoteFiled: 09/05/2017 10:11 PMNote Text: Nursing Progress NotePatient Name: Lisa Rodas DylondwickMRN: [id number] Location: [facility]-0268/MG-1X-5129-1____ Transfer Note:Patient transferred into room/unit 268/2North in stable condition.Actions taken: No futher actions taken at this time. Will continue tomonitor and check with patient.This note was completed by: Tabatha Carmen RN [facility] NUTRITIONon 09-06-2017 NUTRITION HNO ID: [id number] thor: Lizzy Fairchild (Danika)Service: Nutrition TherapyAuthor Type: Registered DietitianType: NutritionFiled: 09/06/2017 9:10 AMNote Text:NUTRITION THERAPYFOLLOW-UP NOTESERVICE DATE: 09/06/2017SERVICE TIME: 9:05 amAnthropometrics:Current Weight: Weight: 94.3 kg (207 lb 12.8 oz)Body mass index is 41.97 kg/m?.HT/WT/BMI WEIGHT1 104.237 kg3/01/2017 102.694 kg5 101.878 kg6/ 102.785 kg10/08/2016 100.064 kg10/ 100.608 kg11/ 99.066 kg3/09/2017 96.979 kg4 97.614 kg8% weight loss past [...] ShirleyDATE: September 06, 2017 : 9:07 AM [facility] PROGRESSon 09-06-2017 PROGRESS HNO ID: [id number] thor: Robbi Fordeervice: Hospital MedicineAuthor Type: PhysicianType: Progress NotesFiled: 09/06/2017 1:06 PMNote Text:[facility] MEDICINEPROGRESS NOTESERVICE DATE: 09/06/2017SERVICE TIME: 12:55 PMHospital Medicine/Primary Attending: Robbi Forde MDNIGHT AND WEEKEND COVERAGE:Nights: Please contact pager [phone].SubjectiveINTERVAL HPI: Sitting upright in bedside chair, no [...] without long-termcurrent use of insulin (HCC) POA: YsdXrC4p: 8.5 on 06/2017.D/c glimepiride as pt recently [...] 2300 vte non-pharmacologic prophylaxis - none indicated (hi,oh)VTE Prophylaxis: VTE prophylaxis appropriateDisposition: Home tomorrow after Neuro workupPlan of care discussed with: Patient and Case ManagementSIGNATURE: Robbi Forde MD PATIENT NAME: Lisa ShirleyDATE: September 06, 2017 : 12:55 PM PAGER/CONTACT #: [id number] ext [id number] Normal [facility] Troponin Ton 09-06-2017 Troponin T.cardiac mass conc ug/L Normal 0.000-0.02 9 [facility] Comment on above: Performed By: #### T NT ####[facility] [id number] [phone] Troponin T.cardiac mass conc ug/L Normal 0.000-0.02 9 [facility] Comment on above: Performed By: #### T NT ####[facility] [id number] [phone] US CAROTID BILon 09-06-2017 Bilirubin (direct) * [...] plaque formation distal common proximal internal carotid arteries.Fiberglass Roller: TENISHA Transcribe Date/Time: Sep 06 2017 11:34ADictated by : Kathryn SALINAS examination was interpreted and the report reviewed and electronically signed by: SANJIV LOPEZ DO on Sep 06 2017 11:45AM [id number] Normal [facility] Vital Signs Date Time Vital Sign Value Performing Clinician Facility 08-08-2021 20:20-0400 Diastolic blood pressure 90 mm[Hg] [facility] Work Phone: 08-08-2021 20:20-0400 Heart rate 90 /min [facility] Work Phone: 08-08-2021 20:20-0400 Respiratory rate 18 /min [facility] Work Phone: 08-08-2021 20:20-0400 SaO2% (BldA) [Mass fraction] 98 % [facility] Work Phone: 08-08-2021 20:20-0400 Systolic blood pressure 160 mm[Hg] [facility] Work Phone: 08-08-2021 17:11-0400 Body height 157.48 cm [facility] Work Phone: 08-08-2021 17:11-0400 Body mass index (BMI) [Ratio] 36.9 kg/m2 [facility] Work Phone: 08-08-2021 17:11-0400 Body temperature 98.2 [degF] [facility] Work Phone: 08-08-2021 17:11-0400 Body weight 91.62 kg [facility] Work Phone: 03-09-2020 06:39-0500 Body temperature 98.6 [degF] [facility] Comment on above: Order Comment: Speci men Type: VENOUS BLOOD SPECIMEN Performed By: #### 2 4344-4 ####[facility] [id number] [place] [address] 03-08-2020 18:32-0500 Body temperature 100.76 [degF] [facility] Comment on above: Order Comment: Speci men Type: BLOOD SPECIMEN Performed By: #### 5 8410-2 #### [facility] CLIA [id number] [address] [place] [address] NEGATED: Highlighted [id number] 12:16-0400 BMI (Body Mass Index) 41.36 kg/m2 [facility]: NEGATED: Highlighted [id number] 12:16-0400 BP Diastolic 81 mm[Hg] [facility] Work [facility]: NEGATED: Highlighted [id number] 12:16-0400 BP Systolic 133 mm[Hg] Pete Bagley [facility] Work Phone: NEGATED: Highlighted [id number] 12:16-0400 Height 152.4 cm Pete Bagley [facility] Work Phone: NEGATED: Highlighted [id number] 12:16-0400 Height 152 cm Pete Bagley [facility] Work Phone: NEGATED: Highlighted [id number] 12:16-0400 Pulse (Heart Rate) 101 /min Pete Bagley [facility] Work Phone: NEGATED: Highlighted [id number] 12:16-0400 Weight 95.71 kg Petenaomi Bagley [facility] Work Phone: NEGATED: Highlighted [id number] 12:16-0400 Weight 96 kg Petenaomi Bagley [facility] Work Phone: Encounters Encounter Date Encounter Type Care Provider Facility Start: 02-07-2025 ambulatory Jean-Paul STUART Facil ity:[facility] Start: 01-19-2025 Registered Referred Jean-Paul Rothman MD [facility] Start: 01-19-2025 End: 01-19-2025 ambulatory Darvin Brice Facility:[facility] Start: 12-19-2024 End: 12-19-[address] Darvin Brice MD Work Phone: [facility] Start: 12-19-2024 End: 12-19-2024 Departed Referred Jean-Paul Rothman MD [facility] Start: 12-19-2024 End: 12-19-2024 ambulatory Jean-Paul STUART Facility:[facility] Start: 11-04-2024 ambulatory Darvin Brice Facility:[facility] Start: 11-04-2024 Registered Referred Jean-Paul Rothman MD [facility] Start: 08-05-2024 End: 08-05-[address] Darvin Brice MD Work Phone: [facility] Work Phone: Start: 08-05-2024 End: 08-05-2024 [facility] Start: 08-05-2024 End: 08-05-2024 ambulatory Darvin Brice Facility:[facility] Start: 05-06-2024 ambulatory Darvin Brice Facility:[facility] Start: 05-06-2024 Registered Referred Jean-Paul Rothman MD [facility] Start: 05-06-2023 End: 05-06-2023 ambulatory [facility] Work Phone: Start: 05-06-2023 End: 05-06-2023 Departed Referred [facility] Start: 02-05-2023 End: 02-05-2023 ambulatory [facility] Work Phone: Start: 02-05-2023 End: 02-05-2023 Departed Referred [facility] Start: 01-16-2023 End: 01-16-2023 Departed Referred [facility] Start: 01-16-2023 Registered Referred [facility] Start: 01-07-2023 End: 01-07-2023 ambulatory [facility] Work Phone: Start: 01-07-2023 End: 01-07-2023 Departed Referred [facility] Start: 11-07-2022 End: 11-07-2022 ambulatory [facility] Work Phone: Start: 11-07-2022 End: 11-07-2022 Departed Referred [facility] Start: 08-04-2022 End: 08-04-2022 ambulatory [facility] Work Phone: Start: 08-04-2022 End: 08-04-2022 Departed Referred [facility] Start: 05-06-2022 End: 05-06-2022 Departed Referred [facility] Start: 08-08-2021 End: 08-08-2021 Emergency department patient visit [facility] Start: 09-29-2018 End: 09-29-2018 Patient encounter procedure Lorena Griffin MD Work Phone: [facility] Work Phone: Start: 09-05-2017 End: 09-07-2017 Ambulatory [facility] Procedures Date Procedure Procedure Detail Performing Clinician Start: 05-06-2024 Measurement of renal function Dr. Darvin Brice MD Work Phone: Comment on above: GFR Calc Start: 01-16-2023 Urine culture Start: 01-07-2023 Urine culture Start: 08-08-2021 CT of head without contrast Start: 03-19-2020 Antibody screen Comment on above: Order Comment: Speci men Type: SWAB OF INTERNAL NOSE Performed By: #### S APCR #### [facility] CLIA [id number] [address] [place] [address] Start: 03-09-2020 Antibody screen Comment on above: Order Comment: Speci men Type: SWAB OF INTERNAL NOSE Performed By: #### S APCR #### [facility] CLIA [id number] [address] [place] [address] Start: 09-29-2018 End: 09-29-2018 Blood pressure within [...] Author Start: 02-07-2025 Registered Referred Registered Refer [facility] Start: 09-29-2018 End: 09-29-2018 Appointment Appointment [facility] Work Phone: Patient Education ED Seizure New Onset Unknown ... [facility] Work Phone: Patient referral [facility] Work Phone: Immunizations Immunization Date Immunization Notes Care Provider Lou khoury No information available. Pete Diaz [facility] Work Phone: Payers Date Payer Category Payer Medicaid [id number] 2024 Medicare [id number] 2024 Self-pay [id number] 2024 Unknown [id number] Unknown SELF PAY INSURANCE [id number] Unknown [id number] [id number] [id number] Unknown [id number] 2.16.8 [id number] Unknown [id number] 2.16.8 [id number] Unknown [id number] 2.16.8 [id number] Unknown [id number] 2.16.8 [id number] Unknown [id number] 2.16.8 [id number] Social History Date Type Detail Facility Start: 08-08-2021 End: 08-08-2021 Assertion Unknown if ever smoked [facility] Work Phone: Start: 03-23-2020 None [facility] Start: 03-27-2020 Alone;- [facility] Start: 08-28-2020 Non-smoker [facility] Start: 1945 Sex Assigned At Female [facility] Start: 08-08-2021 Tobacco smoking stat us NHIS Never smoked tobacco (finding) [facility] Sex Female [facility] Mental Status Date Assessment Result Facility 08-08-2021 Cognitive function Voice/Name [facility] Work Phone: Progress note 11-08-2020 Note Date & Type Note Facility 11-08-2020 Note HNO ID: [id number] Author: Tiffani Braden PA-C Service: ? Author Type: Physician Load Blocker Type: Progress Notes Filed: 11/08/2020 1:06 PM Note Text: Throat Problem HPI Resident of [facility]. Alisha Akins present for encounter. Lisa Shirley is a 75 year old female here today for Throat Problem. Has had dysphagia with solids/liquids for the past few years. History positive for cerebellar infarction 2019. Pt includes dysphagia started prior to this. Had barium swallow at [place] 09/2020, which showed mild-moderate oropharyngeal dysphagia as well as significant esophageal retention. GI consult for endoscopy was advised. Is currently on mechanical soft diet at [place] and with diet denies choking, but admits [...] had last colonoscopy in June 2017 at [place], [place], which was normal. She was advised [...] Morbid obesity (HCC) (more content not included)... [facility] Progress note 06-29-2020 Note Date & Type Note Facility 06-29-2020 Note HNO ID: [id number] Author: Katia Salmeron Service: ? Author Type: [...] had last colonoscopy in June 2017 at [place], [place], which was normal. She was advised [...] 03/21/2020 BUN 1 (more content not included)... [facility] Evaluation note Note Date & Type Note Facility Evaluation note No assessment information [facility] Work Phone: Reason for referral (narrative) Note Date & Type Note Facility Reason for referral (narrative) No reason for referral information available [facility] Work Phone: Summary Purpose Family History No Family History Records Found Relationship Condition Age at Onset Recorded Date/T elias Unknown Family History?- Unknown March 232019 11:22am Family History?Cancer Unknown Novemb er 2019 11:22am Family History?Cancer, - Unknown Feb 11:22am Relationship Condition Age at Onset Recorded Date/T elias Unknown Family History?- Unknown March 232019 10:22am Family History?Cancer Unknown Novemb er 2019 10:22am Family History?Cancer, - Unknown Feb 10:22am Advance Directives No Advanced Directives Records Found Advance Directive Response Recorded Date/ Time Living Will Yes August 08, 2021 5:19pm Power of Special Shopper Yes August 08 5:19pm Advance Directive Response Recorded Date/ Time Living Will Yes August 08, 2021 4:19pm Power of Special Shopper Yes August 08 4:19pm Chief Complaint Chief [...] the sender. Hospital Course Note HNO ID: [id number] Author: Nahun Rawls MD Service: Hospital Medicine [...] (more content not included)... Note HNO ID: [id number] Author: Giulia Patel) Kiki Service: ? Author Type: Nurse Storeroom Keeper Type: Anesthesia Procedure Notes Filed: 03/19/2020 1:02 PM Note Text: ANESTHESIOLOGY PROCEDURE NOTE Airway General Information Procedure Start Time/Medication Administration: 03/19/2020 12:40 PM Patient location during procedure: OR Patient identity confirmed: arm band and patient Staffing LIEUTENANT FIRE FIGHTER: Carmina Patel) Kiki Performed by: LIEUTENANT FIRE FIGHTER Indications and Patient Condition Preoxygenated: yes Patient [...] (more content not included)... Note HNO ID: [id number] Author: Ria Zamora Service: Orthopaedic Surgery Author Type: Resident Type: Brief Op Note Filed: 03/19/2020 2:31 PM Note Text: Orthopaedic Surgery Brief Operative Note Log ID: [id number] Surgery/Procedure Date: 03/19/2020 Incision/Procedure Start Time: 12:58 PM Incision Close/Procedure End Time: 2:18 PM Surgeon(s)/Proceduralist(s) and Load Blocker(s): Surgeon(s) and Role: * Leland Herrera - Primary * Lee Zamora - Resident - Assisting No Additional Staff Procedure(s): ORIF of L trimalleolar ankle fracture-dislocation with syndesmotic fixation Anesthesia: General Pre-Op/Pre-Procedure Diagnosis: Closed L trimalleolar ankle fracture Post-Op/Post-Procedure Diagnosis: Same Implant: Implant Name Type Inv. Item Serial No. Engineering Job Titles Lot No. LRB No. Used Action BIT 2.7MM 125MM DRILL 3 FLUTED QUICK COUPLING NONSTERILE - [id number] Bit BIT 2.7MM 125MM DRILL 3 FLUTED QUICK COUPLING NONSTERILE [employer] [facility] 1 BIT 2MM STAINLESS STEEL 125MM DRILL QU (more content not included)... Procedure Findings Note HNO ID: [id number] Author: Giulia Patel) Kiki Service: ? Author Type: Nurse Storeroom Keeper Type: Anesthesia Procedure Notes Filed: 03/19/2020 1:02 PM Note Text: ANESTHESIOLOGY PROCEDURE NOTE Airway General Information Procedure Start Time/Medication Administration: 03/19/2020 12:40 PM Patient location during procedure: OR Patient identity confirmed: arm band and patient Staffing LIEUTENANT FIRE FIGHTER: Carmina Patel) Kiki Performed by: LIEUTENANT FIRE FIGHTER Indications and Patient Condition Preoxygenated: yes Patient [...] (more content not included)... Note HNO ID: [id number] Author: Ria Zamora Service: Orthopaedic Surgery Author Type: Resident Type: Brief Op Note Filed: 03/19/2020 2:31 PM Note Text: Orthopaedic Surgery Brief Operative Note Log ID: [id number] Surgery/Procedure Date: 03/19/2020 Incision/Procedure Start Time: 12:58 PM Incision Close/Procedure End Time: 2:18 PM Surgeon(s)/Proceduralist(s) and Load Blocker(s): Surgeon(s) and Role: * Leland Herrera - Primary * Lee Zamora - Resident - Assisting No Additional Staff Procedure(s): ORIF of L trimalleolar ankle fracture-dislocation with syndesmotic fixation Anesthesia: General Pre-Op/Pre-Procedure Diagnosis: Closed L trimalleolar ankle fracture Post-Op/Post-Procedure Diagnosis: Same Implant: Implant Name Type Inv. Item Serial No. Engineering Job Titles Lot No. LRB No. Used Action BIT 2.7MM 125MM DRILL 3 FLUTED QUICK COUPLING NONSTERILE - [id number] Bit BIT 2.7MM 125MM DRILL 3 FLUTED QUICK COUPLING NONSTERILE [employer] [facility] 1 BIT 2MM STAINLESS STEEL 125MM DRILL QU (more content not included)... Chief Complaint and Reason for Visit Chief Complaint sei Chief Complaint DETENTION LAB WOR K DETENTION LABWORK Chief Complaint LABWORK Chief Complaint LABWORK DETENTION LAB WORK Chief Complaint LABWORK DETENTION LAB WORK DETENTION LAB WORK DETENTION LABWORK Chief Complaint DETENTION LAB WOR K DETENTION LABWORK DETENTION LAB WORK Chief Complaint Admit Date DETENTION LAB WORK May 06, 2024 5:00am DETENTION LAB WORK August 05, 2024 5 :00am Chief Complaint Admit Date LABWORK November 04, 2024 5:00 am DETENTION LAB WORK December 19, 2024 4:00am DETENTION LAB WORK January 19 7:35am DETENTION LAB WORK February 07, 2025 4:00am Additional Source Comments INFORMATION SOURCE (unrecogn ized section and content) DATE CREATED AUTHOR 10/14/2017 [facility] DATE CREATED AUTHOR AUTHOR'S ORGANIZ ATION 05/27/2020 [facility] DATE CREATED AUTHOR AUTHOR'S ORGANIZ ATION 07/31/2020 [facility] DATE CREATED AUTHOR AUTHOR'S ORGANIZ ATION 11/04/2020 [facility] DATE CREATED AUTHOR AUTHOR'S ORGANIZ ATION 06/20/2021 [facility] DATE CREATED AUTHOR AUTHOR'S ORGANIZ ATION 02/25/2025 [facility] Reason for Visit (unrecogniz ed section [...] Darvin Brice MD Primary Care Provider Active [facility] Attending Provider Active Team Status: Active Member [...] BE BASED ON THE PRIMARY CLINICAL RECORDS. [facility] [employer] [facility]. provides no warranty or guarantee of the accuracy or completeness of information in this document.
[2025-04-21 08:31] LABS: Anion Gap 11 (7-18); BUN 12 mg/dL (4-19); BUN/Creat Ratio 9.8 RATIO (10-20); Calcium,Total 7.9 mg/dL (7.6-11.0); Carbon Dioxide 24.3 mmol/L (20.0-29.0); Chloride 115 mmol/L (96-106); Glucose 83 mg/dL (70-99); Potassium 2.1 mmol/L (3.5-5.1)
[2025-04-21 08:51] LABS: Hematocrit 34.8 % (37-47); Hemoglobin 11.4 g/dL (12.0-15.0); Mean Corp Hgb Conc 32.8 g/dL (32-36); Mean Corpuscular Volume 87.2 fL (81-99); Mean Platelet Vol. 12.0 fl (6.2-12.0); Platelet Count 141 K/mm3 (150-450); RBC Distribution Width CV 15.1 % (11.6-14.6); RBC Distribution Width SD 47.5 fl (35.1-43.9); Red Blood Count 3.99 M/mm3 (4.2-5.4); White Blood Count 7.1 K/mm3 (4.4-11.0)
== END ==
LOC: OLS.WCC 05:00
PROVIDERS: PCP Family Medicine; Visit Provider Family Medicine
DX: E11.9 Type 2 diabetes mellitus without complications (principal); R53.83 Other fatigue; I10 Essential (primary) hypertension
CPT/HCPCS: 36415; 80048; 85027